=== PATIENT | male | born 1960 | race Caucasian/White ===

== ENCOUNTER → 2017-01-14 | Outpatient (CLI) | payer MEDICAID ==
[~2017-01-14] MED LIST: ALPR1T PO; AMLO10TA4 PO; ASPI-587 PO; ATOR80TA76 PO; ATR20T PO; BACL10TA PO; CAPT25TA3 PO; CLON0.5T PO; DIAZ10TA PO; DICL75TA2 PO; FLUT1DIS26 IH; FLUT9.9S NSEACH; GABA-488 PO; HYDR-2890 PO; HYDR-3714 PO; HYDR-3820 PO; KLONOPIN; LANS30TA3 PO; MORP30TA PO; MORP60TA12 PO; OXYC-197 PO; OXYC-471 PO; RT-ALBUINH IH; TIOT4MIS3 IH; [UNRECOGNIZED DRUG - OTHER]
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
== END ==
LOC: RAD 08:27
PROVIDERS: ATTEND Nurse Practitioner Community Health
DX: M54.16 Radiculopathy, lumbar region (principal)
CPT/HCPCS: 72148

== ENCOUNTER → 2017-02-19 | Outpatient (CLI) | payer MEDICAID ==
--- NOTE | 2017-02-19 20:12 | Diagnostic Imaging Report ---
PROCEDURE: MR imaging left lower extremity without contrast. TECHNIQUE: Multiplanar, multisequence non contrast enhanced MR imaging of the left lower extremity was accomplished. IMPRESSION: Dictated on workstation # [id number]
--- NOTE | 2017-02-20 15:34 | Diagnostic Imaging Report ---
TECHNIQUE: Multiplanar, multisequence non contrast-enhanced MRI of the left lower extremity was accomplished. INDICATION: No known injury. Lateral ankle pain and swelling with left foot pain for several months. History of healed fracture. Fracture was several years ago. Question peroneal tendinitis. EXAMINATION: MRI of the left lower extremity, 02/19/2017. FINDINGS: There is a marker along the lateral aspect of the ankle at the site of concern. This immediately overlies the anterior aspect of the peroneal tendons at the level of the anterior talofibular ligament. The underlying anterior talofibular ligament is intact. Mild adjacent anterior edema is seen which could be reactive. The anterior and posterior inferior tibiofibular ligaments are intact. The deltoid ligament contains mild internal high signal which could be due to a sprain. No discontinuity is appreciated. The peroneal tendons are diffusely enlarged. The peroneus brevis tendon attaches normally at the base of the fifth metatarsal without discontinuity noted. However, at the marker site, the peroneus brevis tendon is ill-defined in nature and there appears to be a longitudinal split tear. This is likely superimposed on tendinosis given the enlargement of the tendon. There is diffuse enlargement and abnormal signal intensity within the adjacent peroneus longus tendon at the same level which extends to involve the submalleolar portion of the tendon as well. There is no discontinuity. A discrete tear is not seen and findings likely due to marked tendinosis. A small amount of fluid in the surrounding sheath is noted. Minimal edema within the adjacent calcaneus is seen. There is also edema within the talus laterally. Within the lateral subtalar joint, there is a small amount of fluid as well as narrowing subchondral sclerosis and subchondral cystic change in both the talus and adjacent calcaneus. Similar findings to a lesser degree noted within the medial and posterior subtalar joints as well. A definite fracture line is not seen at this time. Susceptibility artifact is noted along the distal medial Achilles tendon near its attachment to the calcaneus. Discontinuity of the tendon is not appreciated. The extensor and flexor tendons are intact. The remaining osseous structures demonstrate scattered areas of edema, likely all degenerative in nature. There are multiple nonspecific hypointensities along the plantar aspect of the foot which are rounded in appearance and lie immediately inferior to the navicular and adjacent anterior calcaneus. These have the appearance of small loose bodies that are nonspecific in nature. Correlation with plain films may provide further characterization for possible calcifications within the region. IMPRESSION: 1. Diffuse tendinosis involving the peroneus brevis and longus tendons with a more focal short segment longitudinal split tear of the peroneus brevis tendon also noted at and just below the level of the lateral malleolus. No discontinuity is seen as it normally attaches at the base of the fifth metatarsal. 2. Remaining tendons intact. 3. Mild edema anterior to the anterior talofibular ligament which is nonspecific and could be reactive secondary to the peroneal changes or could be secondary to a sprain of the ligament, correlate with symptoms. No discontinuity. Mild similar findings seen along the deltoid ligament. 4. Diffuse degenerative findings throughout the calcaneus and talus as described with possible loose bodies along the plantar aspect of the foot, see above description. Dictated on workstation # [id number]
== END ==
LOC: RAD 16:08
PROVIDERS: ATTEND Podiatrist Foot & Ankle Surgery
DX: M76.72 Peroneal tendinitis, left leg (principal)
CPT/HCPCS: 73721

== ENCOUNTER 2018-04-05 10:54 | Outpatient (CLI) | payer MEDICAID ==
[~2018-04-05] VITALS: Ht 180.3 cm; Wt 99.1 kg
[~2018-04-05 10:54] MED LIST changes: -OXYC-197 PO; +OXYC1TAB87 PO
[2018-04-05 11:12] VITALS: BP 170/96
[2018-04-05 11:42] LABS: BILIRUBIN,URINE NEGATIVE (NEGATIVE); CLARITY,URINE CLEAR; COLOR,URINE YELLOW; GLUCOSE, URINE (UA) NEGATIVE (NEGATIVE); KETONES,URINE NEGATIVE (NEGATIVE); LEUKOCYTE ESTERASE ,URINE 1+ (NEGATIVE); NITRITE,URINE NEGATIVE (NEGATIVE); PH,URINE 6.5 (5-9); PROTEIN,URINE NEGATIVE (NEGATIVE); UROBILINOGEN,URINE NORMAL (NORMAL)
[2018-04-05 11:43] LABS: BASOPHILS # (AUTO) 0.1 10^3/uL (0.0-0.1); BASOPHILS % (AUTO) 2 % (0-10); EOSINOPHILS # (AUTO) 0.1 10^3/uL (0.0-0.3); EOSINOPHILS % (AUTO) 2 % (0-10); HEMATOCRIT 41 % (40-54); HEMOGLOBIN 13.9 G/DL (13.3-17.7); LYMPHOCYTES # (AUTO) 2.3 X 10^3 (1.0-4.0); LYMPHOCYTES % (AUTO) 39 % (12-44); MEAN CORPUSCULAR HEMOGLOBIN 30 PG (25-34); MEAN CORPUSCULAR HGB CONC 34 G/DL (32-36); MEAN CORPUSCULAR VOLUME 89 FL (80-99); MEAN PLATELET VOLUME 8.9 FL (7.4-10.4); MONOCYTES # (AUTO) 0.5 X 10^3 (0.0-1.0); MONOCYTES % (AUTO) 8 % (0-12); NEUTROPHILS # (AUTO) 2.9 X 10^3 (1.8-7.8); NEUTROPHILS % (AUTO) 49 % (42-75); PLATELET COUNT 276 10^3/uL (130-400); RED BLOOD COUNT 4.59 10^6/uL (4.35-5.85); RED CELL DISTRIBUTION WIDTH 13.5 % (10.0-14.5); WHITE BLOOD COUNT 5.8 10^3/uL (4.3-11.0)
[2018-04-05 11:50] LABS: BACTERIA,URINE NEGATIVE /HPF; WBC,URINE RARE /HPF
[2018-04-05 12:03] LABS: ALANINE AMINOTRANSFERASE 23 U/L (0-55); ALBUMIN 4.3 GM/DL (3.2-4.5); ALKALINE PHOSPHATASE 89 U/L (40-136); BILIRUBIN,TOTAL 0.5 MG/DL (0.1-1.0); BUN/CREATININE RATIO 16; CALCIUM 9.5 MG/DL (8.5-10.1); CARBON DIOXIDE 22 MMOL/L (21-32); CHLORIDE 107 MMOL/L (98-107); CREATININE SERUM 0.92 MG/DL (0.60-1.30); GFR ESTIMATED > 60; GLUCOSE 92 MG/DL (70-105); POTASSIUM 4.2 MMOL/L (3.6-5.0); PROTHROMBIN TIME PATIENT 13.4 SEC (12.2-14.7); SODIUM 138 MMOL/L (135-145); TOTAL PROTEIN 7.1 GM/DL (6.4-8.2)
[2018-04-05 12:05] LABS: ERYTHROCYTE SEDIMENTATION RATE 17 MM/HR (0-30)
[2018-04-05] MEDS ORDERED: METO100T12 PO (12:21)
[2018-04-05] MEDS ORDERED: HYDR-3820 PO (12:21)
[2018-04-05] MEDS ORDERED: ASPI-999 PO (12:21)
--- NOTE | 2018-04-05 12:55 | Diagnostic Imaging Report ---
PA and lateral chest at 1201 hours. INDICATION: Preop total knee replacement. FINDINGS: Heart size is within normal limits and stable when compared to 01/22/2014. The lungs are clear. There is no evidence for failure, pneumonia or for pleural effusion to indicate an acute abnormality. The mediastinum is not widened. The osseous structures are intact. The orthopedic plate and screw fixation device overlying the cervicothoracic junction seen previously is again evident and no different. There are also bilateral pedicle screws partially visualized overlying the upper lumbar spine. In the interval since the prior exam it does appear that the patient has undergone a surgical procedure of the right shoulder as there is now a small orthopedic fixation screw overlying the right humeral head. IMPRESSION: There is no evidence for an acute cardiopulmonary abnormality. Dictated on workstation # [id number]
[2018-04-05] MEDS ORDERED: CYCL10TA9 PO (16:20)
[2018-04-05] MEDS ORDERED: DICL100G18 TP (16:20)
[2018-04-05] MEDS ORDERED: CETI10TA23 PO (16:20)
[2018-04-05] MEDS ORDERED: ASPI-983 PO (16:20)
[2018-04-05] MEDS ORDERED: FLUT16SP22 NS (16:20)
== END 2018-04-05 15:00 | disposition home or self-care (01) ==
LOC: PREOP 10:54
PROVIDERS: ATTEND Orthopaedic Surgery
DX: Z01.810 Encounter for preprocedural cardiovascular examination (principal); Z01.811 Encounter for preprocedural respiratory examination; Z01.812 Encounter for preprocedural laboratory examination; Z11.2 Encounter for screening for other bacterial diseases; M17.11 Unilateral primary osteoarthritis, right knee; R53.83 Other fatigue
CPT/HCPCS: 36415; 71046; 80053; 81000; 85025; 85610; 85652; 86850; 86900; 86901; 87081; 93005

== ENCOUNTER 2018-04-14 05:52 | Inpatient (IN) | payer MEDICAID ==
--- NOTE | 2018-04-05 18:43 | HISTORY AND PHYSICAL ---
DATE OF SERVICE: INPATIENT ADMISSION HISTORY AND PHYSICAL DATE OF ADMISSION AND DATE OF SERVICE: 04/14/2018 This will be for inpatient admission on 04/14/2018 for right total knee arthroplasty. HISTORY OF PRESENT ILLNESS: The patient is a 57-year-old gentleman with longstanding progressive right knee pain. Radiographs reveal severe medial and patellofemoral arthrosis with complete loss of joint space. He has undergone treatment with arthroscopy and injections without relief. He reports functional impairment. He reports continued pain despite extensive conservative measures and because of this, has elected to proceed with surgical intervention. REVIEW OF SYSTEMS: No chest pain. No shortness of breath. No dysuria. PAST MEDICAL HISTORY: Hyperlipidemia, hypertension, chronic back pain, COPD, carotid disease, osteoarthritis. PAST SURGICAL HISTORY: Cervical spine, lumbar spine, appendectomy, colonoscopy, right shoulder and left shoulder. FAMILY HISTORY: Significant for ischemic heart disease. PRIMARY CARE PROVIDER: [facility]. MEDICATIONS: Morphine, hydrocodone, Valium, captopril, Lipitor, Prevacid, fluconazole, ProAir, amlodipine, Stiolto, aspirin, diclofenac, gabapentin, cyclobenzaprine, and metoprolol. ALLERGIES: DILANTIN. SOCIAL HISTORY: The patient is a [id number] history smoker. Denies alcohol use. PHYSICAL EXAMINATION: GENERAL: The patient is well developed, well-nourished, in no acute distress. HEENT: Normocephalic, atraumatic. Pupils equal, round, reactive to light. Oropharynx is clear. NECK: Supple. No lymphadenopathy. LUNGS: Clear to auscultation bilaterally. HEART: Regular rate and rhythm. ABDOMEN: Soft, nontender, nondistended. EXTREMITIES: The patient ambulates with an antalgic gait. Right knee demonstrates varus alignment. There is a slight effusion noted. There is no erythema or warmth about the knee. His range of motion is 0/2/125. No varus valgus laxity, negative anterior and posterior drawer. IMPRESSION: Severe right knee osteoarthritis, unresponsive to conservative measures. PLAN: Right total knee arthroplasty. The risks, benefits, options, ramifications and recovery have been discussed at length with the patient. He understands and wishes to proceed. Of note, this will be a regular inpatient admission due to comorbidities, pain management, gait abnormalities and physical therapy. Job ID: [id number] DocumentID: [id number] Dictated Date: 04/05/2018 17:21:18 Office Services Manager Date: 04/05/2018 18:43:11 Dictated By: VICKY WEATHERS MD
[~2018-04-14] VITALS: Ht 180.3 cm; Wt 99.1 kg
[~2018-04-14 05:52] MED LIST changes: +ASPI-983 PO; +ASPI-999 PO; +CETI10TA23 PO; +CYCL10TA9 PO; +DICL100G18 TP; +FLUT16SP22 NS; +METO100T12 PO
--- OUTSIDE RECORDS SUMMARY | 2018-04-14 05:58 | XMS REPORT | Clinical Summary ---
Author Author [facility] Organization [facility] Address Unknown Phone Unavailable Care Team Providers Care Remote Mortgage Underwriter Name Role Phone Tori Pino MD Unavailable Database, Physician Not In PCP Unavailable Source Comments Some departments are not documenting in the electronic medical record. If you do not see the information that you expected, contact Release of Information in the Health Information Management department at [phone] for further assistance in locating additional records.[facility] Allergies Active Allergy Reactions Severity Noted Date Comments Hydromorphone UNKNOWN Low 11/12/2015 Current Medications Prescription Sig. Disp. Refills Start End Date Status Date albuterol (VENTOLIN HFA, Inhale 2 Puffs by mouth Active PROAIR HFA) 90 every 6 hours as needed mcg/actuation inhaler for Wheezing. amLODIPine (NORVASC) 10 Take 10 mg by mouth Active mg tablet daily. atorvastatin (LIPITOR) 80 Take 80 mg by mouth Active mg tablet daily. captopril (CAPOTEN) 25 mg Take 25 mg by mouth three Active tablet times daily. diazepam (VALIUM) 10 mg Take 10 mg by mouth every Active tablet 6 hours as needed for Anxiety. lansoprazole DR(+) Take 30 mg by mouth Active (PREVACID) 30 mg capsule daily. fluticasone (FLONASE) 50 Apply 2 Sprays to each Active mcg/actuation nasal spray nostril as directed daily. tiotropium-olodaterol Inhale by mouth. Active 2.5-2.5 mcg/actuation mist morphine SR (MS CONTIN; Take 160 mg by mouth Active ORAMORPH SR) 60 mg every 12 hours tabletIndications: 160 in Indications: 160 in the the moring 130 at bedtime moring 130 at bedtime HYDROcodone/acetaminophen Take 1 Tab by mouth every Active (+) (LORTAB, NORCO) 6 hours as needed for 10/325 mg tablet Pain baclofen (LIORESAL) 10 mg Take 10 mg by mouth three Active tablet times daily. diclofenac sodium DR Take 75 mg by mouth twice Active (VOLTAREN) 75 mg tablet daily. gabapentin (NEURONTIN) Take 2 Caps by mouth 180 Cap 6 03/14/20 Active 300 mg three times daily. 16 capsuleIndications: Idiopathic polyneuropathy duloxetine DR (CYMBALTA) Take 1 Cap by mouth 90 Cap 3 03/14/20 Active 30 mg capsuleIndications: daily. 16 Idiopathic polyneuropathy, Depression, unspecified depression type Active Problems Problem Noted Date Drop attack 03/14/2016 Abnormal involuntary movement 03/14/2016 Tobacco abuse 03/14/2016 Depression 03/14/2016 Spondylosis of cervical region without myelopathy or radiculopathy 2015 Spondylosis of lumbar region without myelopathy or radiculopathy 01/07/2016 Pseudoarthrosis of lumbar spine 11/12/2015 Resolved Problems Problem Noted Date Resolved Date Osteoarthritis of lumbar spine with myelopathy 11/12/2015 01/07/2016 Spondylolisthesis of cervical region 11/12/2015 01/07/2016 Family History Medical History Relation Name Comments Unknown to Patient Father Heart Disease Mother Relation Name Status Comments Father Mother Social History Tobacco Use Types Packs/Day Years Used Date Current Every Day Smoker 0.5 Smokeless Tobacco: Never Used Tobacco Cessation: Ready to Quit: Yes; Counseling Given: Yes Alcohol Use Drinks/Week oz/Week Comments No 0 Standard 0.0 drinks or equivalent Sex Assigned at Date Recorded Not on file Last Filed Vital Signs Vital Sign Reading Time Taken Blood Pressure 155/97 07/07/2016 11:10 AM [employer] Pulse 103 07/07/2016 11:10 AM [employer] Temperature 36.7 C (98 F) 07/07/2016 11:10 AM [employer] Respiratory Rate 18 07/07/2016 11:10 AM [employer] Oxygen Saturation 97% 07/07/2016 11:10 AM [employer] Inhaled Oxygen - - Concentration Weight 100.2 kg (220 lb 12.8 oz) 07/07/2016 11:10 AM [employer] Height 180.3 cm (5' 11") 07/07/2016 11:10 AM [employer] Body Mass Index 30.8 07/07/2016 11:10 AM [employer] Plan of Treatment Health Maintenance Due Date Last Done Comments HEPATITIS C SCREENING 1960 PHYSICAL (COMPREHENSIVE) 12/25/1967 EXAM HIV SCREENING 12/25/1975 DTAP/TDAP VACCINES (1 - 1978 Tdap) COLORECTAL CANCER 2010 SCREENING [employer] REC[employer]BINANT 2010 VACCINE (1 of 2) INFLUENZA VACCINE 12/16/2017 Results Not on filefrom Last 3 Months
--- OUTSIDE RECORDS SUMMARY | 2018-04-14 05:59 | XMS REPORT ---
Author Author PREETHI YIN Organization [facility] [facility] Address [address] [place] [address] Care Team Providers Care Billing Associate Name Role Phone PREETHI YIN Unavailable PROBLEMS Type Condition ICD9-CM Code XIU40-ON Code Onset Dates Condition Status SNOMED Code Problem Anxiety disorder, unspecified F41.9 Active 296665782 Problem Chronic pain syndrome G89.4 Active 685076040 Problem Bilateral primary osteoarthritis of knee M17.0 Active 821315223 ALLERGIES No Information ENCOUNTERS Encounter Location Date Diagnosis [facility] [id number] [place] [address] 12966- 8451 Feb, [facility] [facility] [id number] [place] [address] 29068- 9242 Dec, [facility] [place] [facility] [id number] [place] [address] 01548- 5448 Dec, [facility] [facility] [id number] [place] [address] 01056- 9180 Nov, Chronic pain syndrome G89.4 [facility] [facility] [id number] [place] [address] 86381- 1946 Nov, [facility] [facility] [id number] [place] [address] 99614- 0219 Oct, [facility] [facility] [id number] [place] [address] 04355- 2541 Oct, [facility] [facility] [id number] [place] [address] 90463- 3806 Oct, [facility] [place] [facility] [id number] [place] [address] 09418- 8205 Oct, Allergic reaction to drug, subsequent encounter T78.40XD [facility] [address] [address] 9766 September, [facility] [facility] [address], [place] [address] 0069 September, [facility] [facility] [address], [place] [address] 4329 September, Low back pain radiating to lower extremity M54.5 [facility] [address], [place] [address] 2510 Aug, [facility] [address] [place] [address] 4334 Aug, [facility] [facility] [address], [place] [address]- 1349 Aug, [facility] [id number] [place] [address] 34746- 7355 Aug, [facility] [address], [place] [address]- 5693 Aug, Incisional infection, initial encounter T81.4XXA [facility] [address], [place] [address]- 6141 Aug, [facility] [address], [place] [address] 1633 Jul, [facility] [address], [place] [address]- 0236 Jul, [facility] [facility] [address], [place] [address]- 4364 Jul, Chronic pain syndrome G89.4 [facility] [address], [place] [address] 1536 Jul, Pre-op evaluation Z01.818 [facility] [address], [place] [address]- 2676 Jul, [facility] [facility] [id number] [place] [address] 93457- 4315 Jun, Anxiety disorder, unspecified F41.9 and Chronic pain syndrome G89.4 [facility] [id number] [place] [address] 72122- 6296 Jun, [facility] [facility] [id number] [place] [address] 10314- 3864 Jun, [facility] [id number] [place] [address] 91040- 7945 Jun, [facility] [id number] [place] [address] 33597- 3785 Jun, [facility] [id number] [place] [address] 09420- 3724 Jun, Lumbar neuritis M54.16 [facility] [id number] [place] [address] 72750- 0112 May, [facility] [id number] [place] [address] 27394- 6742 May, [facility] [id number] [place] [address] 02026- 8943 May, Encounter for therapeutic drug level monitoring Z51.81 ; Encounter for immunization Z23 and Chronic pain syndrome G89.4 [facility] [id number] [place] [address] 86197- 1889 May, Lumbar neuritis M54.16 [facility] [id number] [place] [address] 81792- 0352 May, [facility] [id number] [place] [address] 09123- 9471 Apr, Lumbar neuritis M54.16 [facility] [id number] [place] [address] 60637- 3419 Apr, [facility] [id number] [place] [address] 81101- 0389 Mar, Lumbar neuritis M54.16 [facility] [address], [place] [address]- 6300 Mar, [facility] [id number] [place] [address] 70839- 2136 Mar, [facility] [id number] [place] [address] 21858- 6442 Feb, Lumbar neuritis M54.16 [facility] [id number] [place] [address] 05859- 2991 Feb, Lumbar neuritis M54.16 [facility] [id number] [place] [address] 83957- 6099 Feb, [facility] [id number] [place] [address] 19556- 2418 Feb, [facility] [id number] [place] [address] 57742- 4702 25 Jan, 2017 [facility] [id number] [place] [address] 65318- 9264 22 Jan, 2017 Peroneal tendonitis of left lower extremity M76.72 [facility] [address] [place] [address] 37476- 7998 20 Jan, 2017 Lumbar neuritis M54.16 [facility] [address] [place] [address] 43233- 5241 Jan, [facility] [id number] [place] [address] 30788- 7410 Dec, Lumbar neuritis M54.16 [facility] [id number] [place] [address] 22889- 1056 Dec, [facility] [id number] [place] [address] 18193- 1000 Dec, Pain in right knee M25.561 ; Lumbar neuritis M54.16 and Cervical neuritis M54.12 [facility] [id number] [place] [address] 02659- 0013 Dec, [facility] [id number] [place] [address] 20235- 0842 Dec, [facility] [id number] [place] [address] 39267- 0717 Nov, Lumbar neuritis M54.16 [facility] [address] 13020- 7224 Nov, Bilateral primary osteoarthritis of knee M17.0 [facility] [id number] [place] [address] 50290- 7660 Nov, [facility] [address] 81880- 6517 Nov, Bronchitis J40 and Plantar fasciitis M72.2 [facility] [id number] [place] [address] 80691- 1623 Nov, [facility] [id number] [place] [address] 37817- 7117 Oct, Lumbar neuritis M54.16 [facility] [id number] [place] [address] 03367- 9339 Oct, Lumbar neuritis M54.16 [facility] [id number] [place] [address] 92980- 4452 Oct, Lumbar neuritis M54.16 [facility] [id number] [place] [address] 21570- 9990 Oct, Plantar fasciitis M72.2 and Pain in right knee M25.561 [facility] [address] 53541- 2215 16 Oct, 2016 Lumbar neuritis M54.16 ; Cervical neuritis M54.12 ; Other specified abdominal hernia without obstruction or gangrene K45.8 ; Heel spur, left M77.32 ; Plantar fasciitis M72.2 and Pain in right knee M25.561 [facility] [place] [facility] [address] [id number] [place] [address]- 6498 13 Oct, 2016 [facility] [place] [facility] [address] [id number] [place] [address]- 2817 14 Aug, 2014 [facility] [place] [facility] [address] [id number] [place] [address]- 6913 13 Aug, 2014 [facility] [place] [facility] [address] [id number] [place] [address]- 7951 11 Apr, 2014 [facility] [place] [facility] [address] [id number] [place] [address]- 5330 Apr, [facility] [place] [facility] [address] [id number] [place] [address]- 6061 Mar, [facility] [place] [facility] [address] [id number] [place] [address]- 4785 Mar, [facility] [place] [facility] [address] [id number] [place] [address]- 6538 Feb, [facility] [place] [facility] [address] [id number] [place] [address]- 0431 Feb, [facility] [place] [facility] [address] [id number] [place] [address]- 9667 Feb, [facility] [place] [facility] [address] [facility] [id number] [place] [address]- 3940 Feb, [facility] [place] [facility] [address] [id number] [place] [address]- 2441 Feb, [facility] [place] [facility] [address] [id number] [place] [address]- 6366 Feb, [facility] [place] [facility] [address] [id number] [place] 0864 Feb, [facility] [place] [facility] [address] [id number] [place] [address]- 9951 Feb, [facility] [place] [facility] [address] [id number] [place] [address]- 8953 30 Sep, 2013 [facility] [place] [facility] [address] [id number] [place] [address] 2542 30 Sep, 2013 [facility] [place] [facility] [address] [id number] [place] [address] 2545 30 Sep, 2013 [facility] [place] [facility] [address] [id number] [place] [address]- 1576 30 Sep, 2013 [facility] [place] [facility] [address] [id number] [place] [address]- 2543 30 Sep, 2013 [facility] [place] [facility] [address] [id number] [place] [address]- 2257 30 Sep, 2013 [facility] [place] [facility] [address] [id number] [place] [address]- 4925 26 Sep, 2013 [facility] [place] [facility] [address] [id number] [place] [address]- 6141 26 Sep, 2013 [facility] [place] [facility] [address] [id number] [place] [address]- 2786 22 Sep, 2013 [facility] [place] [facility] [address] [id number] [place] [address]- 8396 22 Sep, 2013 [facility] [place] [facility] [address] [id number] [place] [address]- 2276 16 Sep, 2013 [facility] [place] [facility] [address] [id number], [place] [address] 2547 16 Sep, 2013 [facility] [place] [facility] [address] [id number], [place] [address]- 2545 16 Sep, 2013 [facility] [place] [facility] [address] [id number] [place] [address]- 2546 16 Sep, 2013 [facility] [place] [facility] [address] [id number] [place] [address]- 2548 12 Sep, 2013 [facility] [place] [facility] [address] [id number] [place] [address]- 2547 12 Sep, 2013 [facility] [place] [facility] [address] [id number] [place] [address]- 0440 12 Jan, 2013 [facility] [place] [facility] [address] [id number] [place] [address]- 9636 12 Jan, 2013 [facility] [place] [facility] [address] [id number] [place] [address]- 5336 Jan, 2013 [facility] [place] [facility] [address] [id number] [place] [address]- 0746 Jan, 2013 [facility] [place] [facility] [address] [id number] [place] [address]- 5640 Jan, 2013 [facility] [place] [facility] [address] [id number] [place] [address]- 4112 Jan, 2013 [facility] [place] [facility] [address] [id number] [place] [address]- 1888 Jan, 2013 [facility] [place] [facility] [address] [id number] [place] [address]- 9443 Jan, 2013 [facility] [place] [facility] [address] [id number] [place] [address]- 5177 Dec, [facility] [place] [facility] [address] [id number] [place] [address]- 3830 Dec, [facility] [place] [facility] [address] [id number] [place] [address]- 5838 Dec, [facility] [place] [facility] [address] [id number] [place] [address]- 5872 Dec, [facility] [place] [facility] [address] [id number] [place] [address]- 2547 Dec, [facility] [place] [facility] [address] [id number] [place] [address]- 3332 Dec, [facility] [place] [facility] [address] [id number] [place] [address]- 1762 Dec, [facility] [place] [facility] [address] [id number] [place] [address]- 8306 Dec, [facility] [place] [facility] [address] [id number] [place] [address]- 9183 Dec, [facility] [place] [facility] [address] [id number] [place] [address]- 2223 Dec, [facility] [place] [facility] [address] [id number] [place] [address]- 9734 Dec, [facility] [place] [facility] [address] [id number] [place] [address]- 1933 Dec, [facility] [place] [facility] [address] [id number] [place] [address]- 2194 Dec, [facility] [place] [facility] [address] [id number] [place] [address]- 8611 Dec, [facility] [place] [facility] [address] [id number] [place] [address]- 3867 Dec, [facility] [place] [facility] [address] [id number] [place] [address]- 2284 Dec, [facility] [place] [facility] [address] [id number] [place] [address]- 6992 Dec, [facility] [place] [facility] [address] [id number] [place] [address]- 6127 Dec, [facility] [place] [facility] [address] [id number] [place] [address]- 0697 Dec, [facility] [place] [facility] [address] [id number] [place] [address]- 0755 Nov, [facility] [place] [facility] [address] [id number] [place] [address]- 3666 Nov, [facility] [place] [facility] [address] [id number] [place] [address]- 2079 Nov, [facility] [place] [facility] [address] [id number] [place] [address]- 9750 Nov, [facility] [place] [facility] [address] [id number], [place] [address]- 9033 Nov, [facility] [place] [facility] [address] [facility] [id number], [place] [address]- 5782 Nov, [facility] [place] [facility] [address] [facility] [id number], [place] [address]- 2117 Nov, [facility] [facility] [address] [facility] [id number], [place] [address]- 1601 Nov, [facility] [facility] [address] [facility] [id number], [place] [address]- 3279 Nov, [facility] [facility] [address] [facility] [id number], [place] [address]- 0226 Nov, [facility] [place] [facility] [address] [facility] [id number], [place] [address]- 3593 Nov, [facility] [facility] [address] [facility] [id number], [place] [address]- 9037 Oct, [facility] [facility] [address] [facility] [id number], [place] [address]- 3864 Oct, [facility] [place] [facility] [address] [facility] [id number], [place] [address]- 5293 Oct, [facility] [place] [facility] [address] [facility] [id number], [place] [address]- 9353 Apr, IMMUNIZATIONS No Known Immunizations SOCIAL HISTORY Never Assessed REASON FOR VISIT Controlled Med Refill PLAN OF CARE VITAL SIGNS MEDICATIONS Medication Instructions Dosage Frequency Start Date End Date Duration Status Hydrocodone-Acetaminophen 10-325 MG Orally 2 times a day 1 tablet as needed 12h Feb, 28 days Active RESULTS No Results PROCEDURES No Known procedures INSTRUCTIONS MEDICATIONS ADMINISTERED No Known Medications MEDICAL (GENERAL) HISTORY Type Description Date Medical History osteo arthritis Medical History COPD Medical History hypertension Medical History chronic sinusitis Medical History scoliosis Medical History hyperlipidemia Medical History clogged carotid arteries Medical History bone spur Medical History abd hernia Surgical History 4- lower lumbar surgeries Surgical History 2- neck surgeries Surgical History torn rotator cuff R shoulder Surgical History left shoulder Surgical History appendectomy Surgical History Hernia Repair Surgical History Cyst removal Hospitalization History Surgery(s) only Hospitalization History Chest Pain 08/2017
--- OUTSIDE RECORDS SUMMARY | 2018-04-14 05:59 | XMS REPORT ---
Author Author PREETHI YIN Organization [facility] Address [address] [place] [address] Care Team Providers Care Ux Developer Designer Name Role Phone PREETHI YIN Unavailable PROBLEMS Type Condition ICD9-CM Code GAK44-MD Code Onset Dates Condition Status SNOMED Code Problem Anxiety disorder, unspecified F41.9 Active 403597856 Problem Chronic pain syndrome G89.4 Active 272999382 Problem Bilateral primary osteoarthritis of knee M17.0 Active [id number] ALLERGIES No Information ENCOUNTERS Encounter Location Date Diagnosis [facility] [id number] [place] [address] 57985- 9127 Dec, [facility] [id number] [place] [address] 03017- 0913 Dec, [facility] [id number] [place] [address] 90607- 1148 Nov, Chronic pain syndrome G89.4 [facility] [id number] [place] [address] 66543- 2592 Nov, [facility] [id number] [place] [address] 81535- 8047 Oct, [facility] [id number] [place] [address] 46100- 0602 Oct, [facility] [id number] [place] [address] 23870- 1114 Oct, [facility] [id number] [place] [address] 00213- 7138 Oct, Allergic reaction to drug, subsequent encounter T78.40XD [facility] [id number] [place] [address] 23191- 3833 September, [facility] [address] [address] 3306 September, [facility] [address] [address] 2761 September, Low back pain radiating to lower extremity M54.5 [facility] [address] [address]- 6916 Aug, [facility] [address] [address]- 7555 Aug, [facility] [address] [address]- 5987 Aug, [facility] [address] [address]- 5999 Aug, [facility] [id number] [place] [address] 09058- 3387 Aug, Incisional infection, initial encounter T81.4XXA [facility] [address] [address]- 3356 Aug, [facility] [id number] [place] [address] 72752- 6842 Jul, [facility] [address] [address] 8332 Jul, [facility] [address] [address]- 7151 Jul, Chronic pain syndrome G89.4 [facility] [address] [address] 3090 Jul, Pre-op evaluation Z01.818 [facility] [address] [address]- 9506 Jul, [facility] [address] [address]- 9054 Jun, Anxiety disorder, unspecified F41.9 and Chronic pain syndrome G89.4 [facility] [place] [facility] [address] [address]- 1215 Jun, [facility] [id number] [place] [address] 93565- 4036 Jun, [facility] [id number] [place] [address] 28941- 0419 Jun, [facility] [id number] [place] [address] 54057- 0487 Jun, [facility] [id number] [place] [address] 64664- 2139 Jun, Lumbar neuritis M54.16 [facility] [id number] [place] [address] 97488- 8745 May, [facility] [id number] [place] [address] 86461- 5531 May, [facility] [id number] [place] [address] 67781- 1495 May, Encounter for therapeutic drug level monitoring Z51.81 ; Encounter for immunization Z23 and Chronic pain syndrome G89.4 [facility] [id number] [place] [address] 94177- 1413 May, Lumbar neuritis M54.16 [facility] [id number] [place] [address] 35794- 0360 May, [facility] [id number] [place] [address] 07942- 2544 Apr, Lumbar neuritis M54.16 [facility] [id number] [place] [address] 43576- 3965 Apr, [facility] [id number] [place] [address] 45815- 3340 Mar, Lumbar neuritis M54.16 [facility] [id number] [place] [address] 24223- 3505 Mar, [facility] [id number] [place] [address] 65239- 1770 Mar, [facility] [id number] [place] [address] 95198- 1210 Feb, Lumbar neuritis M54.16 [facility] [id number] [place] [address] 03090- 8726 Feb, Lumbar neuritis M54.16 [facility] [id number] [place] [address] 81220- 4274 Feb, [facility] [id number] [place] [address] 42428- 1200 Feb, [facility] [id number] [place] [address] 01644- 3151 Jan, [facility] [id number] [place] [address] 50217- 6105 22 Jan, 2017 Peroneal tendonitis of left lower extremity M76.72 [facility] [id number] [place] [address] 78379- 9833 20 Jan, 2017 Lumbar neuritis M54.16 [facility] [id number] [place] [address] 23233- 2915 Jan, [facility] [id number] [place] [address] 47366- 9942 Dec, Lumbar neuritis M54.16 [facility] [id number] [place] [address] 21162- 6220 Dec, [facility] [id number] [place] [address] 07359- 3906 Dec, Pain in right knee M25.561 ; Lumbar neuritis M54.16 and Cervical neuritis M54.12 [facility] [address] [address]- 9446 Dec, [facility] [id number] [place] [address] 61426- 5990 Dec, [facility] [id number] [place] [address] 67524- 6246 Nov, Lumbar neuritis M54.16 [facility] [id number] [place] [address] 44646- 9001 Nov, Bilateral primary osteoarthritis of knee M17.0 [facility] [id number] [place] [address] 57416- 8050 Nov, [facility] [id number] [place] [address] 89322- 0626 Nov, Bronchitis J40 and Plantar fasciitis M72.2 [facility] [id number] [place] [address] 35228- 3907 Nov, [facility] [id number] [place] [address] 04332- 7575 Oct, Lumbar neuritis M54.16 [facility] [id number] [place] [address] 07784- 8024 Oct, Lumbar neuritis M54.16 [facility] [id number] [place] [address] 98837- 5641 Oct, Lumbar neuritis M54.16 [facility] [id number] [place] [address] 06620- 9528 Oct, Plantar fasciitis M72.2 and Pain in right knee M25.561 [facility] [id number] [place] [address] 47418- 0272 16 Oct, 2016 Lumbar neuritis M54.16 ; Cervical neuritis M54.12 ; Other specified abdominal hernia without obstruction or gangrene K45.8 ; Heel spur, left M77.32 ; Plantar fasciitis M72.2 and Pain in right knee M25.561 [facility] [id number] [place] [address] 52299- 9051 13 Oct, 2016 [facility] [place] [facility] [address] [id number] [place] [address]- 3506 14 Aug, 2014 [facility] [place] [facility] [address] [id number] [place] [address]- 7273 13 Aug, 2014 [facility] [place] [facility] [address] [id number] [place] [address]- 5012 11 Apr, 2014 [facility] [place] [facility] [address] [id number] [place] [address]- 9652 Apr, [facility] [place] [facility] [address] [id number] [place] [address]- 9495 Mar, [facility] [place] [facility] [address] [id number] [place] [address]- 3177 Mar, [facility] [place] [facility] [address] [id number] [place] [address]- 8973 Feb, [facility] [place] [facility] [address] [id number] [place] [address]- 9156 Feb, [facility] [place] [facility] [address] [id number] [place] [address]- 0095 Feb, [facility] [place] [facility] [address] [id number] [place] [address]- 7834 Feb, [facility] [place] [facility] [address] [facility] [id number] [place] [address]- 6206 Feb, [facility] [place] [facility] [address] [id number] [place] [address]- 7556 Feb, [facility] [place] [facility] [address] [id number] [place] [address]- 2826 Feb, [facility] [place] [facility] [address] [id number] [place] [address]- 2893 Feb, [facility] [place] [facility] [address] [id number] [place] [address]- 5072 30 Jan, 2014 [facility] [place] [facility] [address] [id number] [place] [address]- 7005 30 Sep, 2013 [facility] [place] [facility] [address] [id number] [place] [address] 2549 30 Sep, 2013 [facility] [place] [facility] [address] [id number] [place] [address] 2541 30 Sep, 2013 [facility] [place] [facility] [address] [id number] [place] [address]- 6071 30 Sep, 2013 [facility] [place] [facility] [address] [id number] [place] [address]- 9216 30 Sep, 2013 [facility] [place] [facility] [address] [id number] [place] [address]- 7237 26 Sep, 2013 [facility] [place] [facility] [address] [id number] [place] [address]- 6692 26 Sep, 2013 [facility] [place] [facility] [address] [id number] [place] [address]- 2627 22 Sep, 2013 [facility] [place] [facility] [address] [id number] [place] [address]- 3205 22 Sep, 2013 [facility] [place] [facility] [address] [id number] [place] [address]- 7190 16 Sep, 2013 [facility] [place] [facility] [address] [id number] [place] [address]- 2296 16 Sep, 2013 [facility] [place] [facility] [address] [id number] [place] [address]- 2542 16 Sep, 2013 [facility] [place] [facility] [address] [id number] [address]- 2549 16 Sep, 2013 [facility] [place] [facility] [address] [id number] [place] [address]- 2544 12 Sep, 2013 [facility] [place] [facility] [address] [id number] [place] [address]- 2547 12 Sep, 2013 [facility] [place] [facility] [address] [id number] [place] [address]- 5435 12 Sep, 2013 [facility] [place] [facility] [address] [id number] [place] [address]- 8638 12 Jan, 2013 [facility] [place] [facility] [address] [id number] [place] [address]- 1452 Jan, 2013 [facility] [place] [facility] [address] [id number] [place] [address]- 9556 Jan, 2013 [facility] [place] [facility] [address] [id number] [place] [address]- 8569 Jan, 2013 [facility] [place] [facility] [address] [id number] [place] [address]- 3954 Jan, 2013 [facility] [place] [facility] [address] [id number] [place] [address]- 4116 Jan, 2013 [facility] [place] [facility] [address] [id number] [place] [address]- 8007 Jan, 2013 [facility] [place] [facility] [address] [id number] [place] [address]- 5491 Dec, [facility] [place] [facility] [address] [id number] [place] [address]- 0183 Dec, [facility] [place] [facility] [address] [id number] [place] [address]- 8474 Dec, [facility] [place] [facility] [address] [id number] [place] [address]- 5747 Dec, [facility] [place] [facility] [address] [id number] [place] [address]- 7650 Dec, [facility] [place] [facility] [address] [id number] [place] [address]- 7064 Dec, [facility] [place] [facility] [address] [id number] [place] [address]- 5667 Dec, [facility] [place] [facility] [address] [id number] [place] [address]- 8281 Dec, [facility] [place] [facility] [address] [id number] [place] [address]- 8296 Dec, [facility] [place] [facility] [address] [id number] [place] [address]- 4838 Dec, [facility] [place] [facility] [address] [id number] [place] [address]- 3295 Dec, [facility] [place] [facility] [address] [id number] [place] [address]- 7237 Dec, [facility] [place] [facility] [address] [id number] [place] [address]- 7201 Dec, [facility] [place] [facility] [address] [id number] [place] [address]- 7868 Dec, [facility] [place] [facility] [address] [id number] [place] [address]- 9907 Dec, [facility] [place] [facility] [address] [id number] [place] [address]- 8323 Dec, [facility] [place] [facility] [address] [id number] [place] [address]- 7128 Dec, [facility] [place] [facility] [address] [id number] [place] [address]- 5645 Dec, [facility] [place] [facility] [address] [id number] [place] [address]- 6774 Dec, [facility] [place] [facility] [address] [id number] [place] [address]- 3374 Nov, [facility] [place] [facility] [address] [id number] [place] [address]- 0451 Nov, [facility] [place] [facility] [address] [id number] [place] [address]- 4757 Nov, [facility] [place] [facility] [address] [id number] [place] [address]- 6278 Nov, [facility] [place] [facility] [address] [id number] [place] [address]- 6454 Nov, [facility] [place] [facility] [address] [id number] [place] [address]- 3154 Nov, [facility] [address] [facility] [id number] [place] [address]- 5783 Nov, [facility] [address] [facility] [id number] [place] [address]- 7628 Nov, [facility] [address] [facility] [id number] [place] [address]- 4655 Nov, [facility] [address] [facility] [id number] [place] [address]- 5027 Nov, [facility] [address] [facility] [id number] [place] [address]- 0164 Nov, [facility] [address] [facility] [id number] [place] [address]- 3571 Oct, [facility] [address] [facility] [id number] [place] [address]- 9149 Oct, [facility] [address] [facility] [id number] [place] [address]- 8995 Oct, [facility] [address] [facility] [id number] [place] [address]- 3562 Apr, IMMUNIZATIONS No Known Immunizations SOCIAL HISTORY Never Assessed REASON FOR VISIT Controlled Med Refill PLAN OF CARE VITAL SIGNS MEDICATIONS Medication Instructions Dosage Frequency Start Date End Date Duration Status Hydrocodone-Acetaminophen 10-325 MG Orally 2 times a day 1 tablet as needed 12h Jan, 28 days Active RESULTS No Results PROCEDURES [...]
--- OUTSIDE RECORDS SUMMARY | 2018-04-14 05:59 | XMS REPORT ---
Author Author RPEETHI YIN Organization [facility] Address [address] [place] [address] Care Team Providers Care Finance Specialist Name Role Phone PREETHI YIN Unavailable PROBLEMS Type Condition ICD9-CM Code VXD66-HO Code Onset Dates Condition Status SNOMED Code Problem Anxiety disorder, unspecified F41.9 Active 404083700 Problem Chronic pain syndrome G89.4 Active 892447060 Problem Bilateral primary osteoarthritis of knee M17.0 Active [id number] ALLERGIES No Information ENCOUNTERS Encounter Location Date Diagnosis [facility] [id number] [place] [address] 33508- 2670 Mar, [facility] [id number] [place] [address] 04200- 3958 Mar, Chronic pain syndrome G89.4 [facility] [id number] [place] [address] 55838- 4488 Feb, [facility] [id number] [place] [address] 85816- 0038 Feb, [facility] [address] [address] 1367 Dec, [facility] [id number] [place] [address] 81503- 2459 Dec, [facility] [id number] [place] [address] 28114- 9667 Nov, Chronic pain syndrome G89.4 [facility] [id number] [place] [address] 06316- 2642 Nov, [facility] [address] [address] 6287 Oct, [facility] [address] [address] 7225 Oct, [facility] [id number] [place] [address] 17946- 6364 Oct, [facility] [id number] [address]- 0438 Oct, Allergic reaction to drug, subsequent encounter T78.40XD [facility] [id number] [place] [address] 45826- 3708 September, [facility] [id number] [place] [address] 10414- 8786 September, [facility] [id number] [place] [address] 05955- 0559 September, Low back pain radiating to lower extremity M54.5 [facility] [id number] [place] [address] 23860- 6662 Aug, [facility] [id number] [place] [address] 79416- 1768 Aug, [facility] [id number] [place] [address] 48795- 5084 Aug, [facility] [address] [address]- 2594 Aug, [facility] [id number] [place] [address] 16225- 9346 Aug, Incisional infection, initial encounter T81.4XXA [facility] [address] [address]- 1326 Aug, [facility] [id number] [place] [address] 60157- [address] Jul, [facility] [address] [address]- 0687 Jul, [facility] [id number] [place] [address] 66899- 6007 Jul, Chronic pain syndrome G89.4 [facility] [id number] [place] [address] 24706- 2857 Jul, Pre-op evaluation Z01.818 [facility] [id number] [place] [address] 03727- 1146 Jul, [facility] [id number] [place] [address] 22197- 4653 Jun, Anxiety disorder, unspecified F41.9 and Chronic pain syndrome G89.4 [facility] [id number] [place] [address] 29092- 9954 Jun, [facility] [id number] [place] [address] 03947- 8853 Jun, [facility] [id number] [place] [address] 67739- 1766 Jun, [facility] [id number] [place] [address] 10383- 4328 Jun, [facility] [id number] [place] [address] 01799- 5456 Jun, Lumbar neuritis M54.16 [facility] [id number] [place] [address] 86505- 1462 May, [facility] [id number] [place] [address] 64945- 2013 May, [facility] [id number] [place] [address] 20896- 4259 May, Encounter for therapeutic drug level monitoring Z51.81 ; Encounter for immunization Z23 and Chronic pain syndrome G89.4 [facility] [id number] [place] [address] 60687- 9761 May, Lumbar neuritis M54.16 [facility] [id number] [place] [address] 75682- 9761 May, [facility] [id number] [place] [address] 35396- 8609 Apr, Lumbar neuritis M54.16 [facility] [id number] [place] [address] 31095- 2076 Apr, [facility] [id number] [place] [address] 05728- 6155 Mar, Lumbar neuritis M54.16 [facility] [id number] [place] [address] 53744- 9207 Mar, [facility] [id number] [place] [address] 40407- 6606 Mar, [facility] [id number] [place] [address] 11196- 0626 Feb, Lumbar neuritis M54.16 [facility] [id number] [place] [address] 15403- 7729 Feb, Lumbar neuritis M54.16 [facility] [id number] [place] [address] 44134- 2053 16 Feb, 2017 [facility] [id number] [place] [address] 83918- 6530 Feb, [facility] [id number] [place] [address] 14479- 2798 25 Jan, 2017 [facility] [id number] [place] [address] 89885- 9446 22 Jan, 2017 Peroneal tendonitis of left lower extremity M76.72 [facility] [id number] [place] [address] 08271- 1320 20 Jan, [address] [facility] [id number] [place] [address] 97717- 2016 12 Jan, 2017 [facility] [id number] [place] [address] 25875- 0158 Dec, Lumbar neuritis M54.16 [facility] [id number] [place] [address] 42017- 5906 Dec, [facility] [id number] [place] [address] 51909- 8050 Dec, Pain in right knee M25.561 ; Lumbar neuritis M54.16 and Cervical neuritis M54.12 [facility] [address] 09540- 1460 Dec, [facility] [id number] [place] [address] 63312- 6680 Dec, [facility] [address] 23330- 5396 Nov, Lumbar neuritis M54.16 [facility] [id number] [place] [address] 47545- 9411 Nov, Bilateral primary osteoarthritis of knee M17.0 [facility] [id number] [place] [address] 76361- 4065 Nov, [facility] [id number] [place] [address] 90315- 9078 Nov, Bronchitis J40 and Plantar fasciitis M72.2 [facility] [id number] [place] [address] 99289- 5778 Nov, [facility] [id number] [place] [address] 86991- 5443 Oct, Lumbar neuritis M54.16 [facility] [id number] [place] [address] 71922- 8101 Oct, Lumbar neuritis M54.16 [facility] [id number] [place] [address] 49889- 7650 Oct, Lumbar neuritis M54.16 [facility] [id number] [place] [address] 92802- 5292 Oct, Plantar fasciitis M72.2 and Pain in right knee M25.561 [facility] [address] [address]- 8080 16 Oct, 2016 Lumbar neuritis M54.16 ; Cervical neuritis M54.12 ; Other specified abdominal hernia without obstruction or gangrene K45.8 ; Heel spur, left M77.32 ; Plantar fasciitis M72.2 and Pain in right knee M25.561 [facility] [id number] [place] [address] 77810- 7719 [address], 2016 [facility] [id number] [place] [address] 27385- 4162 14 Aug, 2014 [facility] [id number] [place] [address] 94818- 0381 Aug, [facility] [id number] [place] [address] 44526- 3152 Apr, [facility] [id number] [place] [address] 52430- 8923 Apr, [facility] [id number] [place] [address] 57249- 1848 Mar, [facility] [id number] [place] [address] 89883- 8118 Mar, [facility] [address] [address]- 3099 Feb, [facility] [id number] [place] [address] 54481- 7822 Feb, [facility] [id number] [place] [address] 51452- 5128 Feb, [facility] [id number] [place] [address] 67729- 9105 Feb, [facility] [address] [address]- 3447 Feb, [facility] [id number] [place] [address] 82478- 8747 07 Feb, 2013 [facility] [place] [facility] [address] [id number] [place] [address]- 3298 07 Feb, 2013 [facility] [place] [facility] [address] [id number] [place] [address]- 6753 07 Feb, 2013 [facility] [place] [facility] [address] [id number] [place] [address]- 9716 30 Sep, 2013 [facility] [place] [facility] [address] [id number] [place] [address] 254 30 Sep, 2013 [facility] [place] [facility] [address] [id number] [place] [address]- 1274 30 Sep, 2013 [facility] [place] [facility] [address] [id number] [place] [address]- 4883 30 Sep, 2013 [facility] [place] [facility] [address] [id number] [place] [address]- 1286 30 Sep, 2013 [facility] [place] [facility] [address] [id number] [place] [address]- 7549 30 Sep, 2013 [facility] [place] [facility] [address] [id number] [place] [address] 2542 26 Sep, 2013 [facility] [place] [facility] [address] [id number] [place] [address]- 2543 26 Sep, 2013 [facility] [place] [facility] [address] [id number] [place] [address] 2540 22 Sep, 2013 [facility] [place] [facility] [address] [id number] [place] [address]- 2545 22 Sep, 2013 [facility] [place] [facility] [address] [id number] [place] [address] 2546 16 Sep, 2013 [facility] [place] [facility] [address] [id number] [place] [address]- 2543 16 Sep, 2013 [facility] [place] [facility] [address] [id number] [place] [address]- 2541 16 Sep, 2013 [facility] [place] [facility] [address] [id number] [place] [address]- 2422 16 Jan, 2013 [facility] [place] [facility] [address] [id number] [place] [address]- 1314 12 Jan, 2013 [facility] [place] [facility] [address] [id number] [place] [address]- 1046 12 Jan, 2013 [facility] [place] [facility] [address] [id number] [place] [address]- 0197 12 Jan, 2013 [facility] [place] [facility] [address] [id number] [place] [address]- 1653 12 Jan, 2013 [facility] [place] [facility] [address] [id number] [place] [address]- 7974 09 Jan, 2013 [facility] [place] [facility] [address] [id number] [place] [address]- 2541 Jan, 2013 [facility] [place] [facility] [address] [id number] [place] [address]- 8429 Jan, 2013 [facility] [place] [facility] [address] [id number] [place] [address]- 8610 Jan, 2013 [facility] [place] [facility] [address] [id number] [place] [address]- 0714 Jan, 2013 [facility] [place] [facility] [address] [id number] [place] [address]- 6121 Jan, 2013 [facility] [place] [facility] [address] [id number] [place] [address]- 4298 Dec, [facility] [place] [facility] [address] [id number] [place] [address]- 254 Dec, [facility] [place] [facility] [address] [id number] [place] [address]- 3160 Dec, [facility] [place] [facility] [address] [id number] [place] [address]- 0210 Dec, [facility] [place] [facility] [address] [id number] [place] [address]- 8039 Dec, [facility] [place] [facility] [address] [id number] [place] [address]- 0596 Dec, [facility] [place] [facility] [address] [id number] [place] [address]- 3873 Dec, [facility] [place] [facility] [address] [id number] [place] [address]- 8080 Dec, [facility] [place] [facility] [address] [id number] [place] [address]- 6578 Dec, [facility] [place] [facility] [address] [id number] [place] [address]- 7039 Dec, [facility] [place] [facility] [address] [id number] [place] [address]- 1015 Dec, [facility] [place] [facility] [address] [id number] [place] [address]- 5955 Dec, [facility] [place] [facility] [address] [id number] [place] [address]- 3567 Dec, [facility] [place] [facility] [address] [id number] [place] [address]- 8218 Dec, [facility] [place] [facility] [address] [id number] [place] [address]- 8000 Dec, [facility] [place] [facility] [address] [id number] [place] [address]- 4913 Dec, [facility] [place] [facility] [address] [id number] [place] [address]- 6735 Dec, [facility] [place] [facility] [address] [id number] [place] [address]- 7865 Dec, [facility] [place] [facility] [address] [id number] [place] [address]- 5237 Dec, [facility] [place] [facility] [address] [id number] [place] [address]- 5850 Nov, [facility] [place] [facility] [address] [id number], [place] [address]- 0800 Nov, [facility] [address] [facility] [id number] [address]- 2265 Nov, [facility] [address] [facility] [id number] [address]- 6446 Nov, [facility] [address] [facility] [id number] [address]- 6094 Nov, [facility] [address] [facility] [id number], [place] [address]- 8806 Nov, [facility] [address] [facility] [id number], [place] [address]- 5159 Nov, [facility] [address] [facility] [id number] [address]- 7344 Nov, [facility] [address] [address]- 5133 Nov, [facility] [address] [address]- 9101 Nov, [facility] [address] [address]- 3506 Nov, [facility] [address] [address]- 3759 Oct, [facility] [id number] [address]- 2684 Oct, [facility] [id number] [address]- 7115 Oct, [facility] [id number] [address]- 0464 Apr, IMMUNIZATIONS No Known Immunizations SOCIAL HISTORY Never Assessed REASON FOR VISIT Controlled Med Refill PLAN OF CARE VITAL SIGNS MEDICATIONS Medication Instructions Dosage Frequency Start Date End Date Duration Status Hydrocodone-Acetaminophen 10-325 MG Orally 2 times a day 1 tablet as needed 12h Mar, 28 days Active RESULTS No Results PROCEDURES [...]
--- OUTSIDE RECORDS SUMMARY | 2018-04-14 05:59 | XMS REPORT ---
Author Author PREETHI YIN Organization [facility] [place] Address [address] [place] [address] Care Team Providers Care Power And Recovery Shift Engineer Name Role Phone PREETHI YIN Unavailable PROBLEMS Type Condition ICD9-CM Code UFD95-HZ Code Onset Dates Condition Status SNOMED Code Problem Anxiety disorder, unspecified F41.9 Active 143323074 Problem Chronic pain syndrome G89.4 Active 228179838 Problem Bilateral primary osteoarthritis of knee M17.0 Active 551608034 ALLERGIES No Information ENCOUNTERS Encounter Location Date Diagnosis [facility] [place] [id number] [place] [address] 25544- 4154 Mar, [facility] [place] [id number] [place] [address] 21903- 4456 Feb, [facility] [place] [id number] [place] [address] 84156- 2114 Feb, [facility] [place] [id number] [place] [address] 90687- 4600 Dec, [facility] [place] [id number] [place] [address] 92633- 5625 Dec, [facility] [place] [id number] [place] [address] 32138- 8673 Nov, Chronic pain syndrome G89.4 [facility] [place] [id number] [place] [address] 98017- 1374 Nov, [facility] [place] [id number] [place] [address] 26909- 7152 Oct, [facility] [place] [id number] [place] [address] 88573- 2213 Oct, [facility] [place] [id number] [address]- 5730 Oct, [facility] [place] [id number] [place] [address] 17187- 4495 Oct, Allergic reaction to drug, subsequent encounter T78.40XD [facility] [place] [id number] [address]- 8946 September, [facility] [place] [id number] [place] [address] 45343- 7133 September, [facility] [place] [id number] [place] [address] 98474- 8047 September, Low back pain radiating to lower extremity M54.5 [facility] [place] [id number] [place] [address] 53326- 8024 Aug, [facility] [place] [id number] [place] [address] 63353- 4318 Aug, [facility] [place] [id number] [place] [address] 61819- 8535 Aug, [facility] [place] [id number] [place] [address] 30321- 2934 Aug, [facility] [place] [id number] [place] [address] 14466- 0596 Aug, Incisional infection, initial encounter T81.4XXA [facility] [place] [id number] [place] [address] 42533- 9716 Aug, [facility] [place] [address] [address]- 3963 Jul, [facility] [place] [id number] [place] [address] 55724- 7189 Jul, [facility] [place] [id number] [place] [address] 02909- 9885 Jul, Chronic pain syndrome G89.4 [facility] [place] [id number] [place] [address] 55178- 0603 Jul, Pre-op evaluation Z01.818 [facility] [place] [id number] [place] [address] 43630- 0546 Jul, [facility] [place] [id number] [place] [address] 97531- 9202 Jun, Anxiety disorder, unspecified F41.9 and Chronic pain syndrome G89.4 [facility] [place] [id number] [place] [address] 05772- 0019 Jun, [facility] [place] [id number] [place] [address] 34712- 2255 Jun, [facility] [place] [id number] [place] [address] 31771- 2034 Jun, [facility] [place] [id number] [place] [address] 78053- 6117 Jun, [facility] [place] [id number] [place] [address] 22529- 2142 Jun, Lumbar neuritis M54.16 [facility] [place] [id number] [place] [address] 94643- 9807 May, [facility] [place] [id number] [place] [address] 21388- 1458 May, [facility] [place] [id number] [place] [address] 05375- 2264 May, Encounter for therapeutic drug level monitoring Z51.81 ; Encounter for immunization Z23 and Chronic pain syndrome G89.4 [facility] [place] [id number] [place] [address] 20004- 1039 May, Lumbar neuritis M54.16 [facility] [place] [id number] [place] [address] 13605- 3308 May, [facility] [place] [id number] [place] [address] 78170- 5553 Apr, Lumbar neuritis M54.16 [facility] [place] [id number] [place] [address] 36831- 7230 Apr, [facility] [place] [id number] [place] [address] 80820- 8585 Mar, Lumbar neuritis M54.16 [facility] [place] [id number] [place] [address] 71437- 0846 Mar, [facility] [place] [id number] [place] [address] 58151- 8457 Mar, [facility] [place] [id number] [place] [address] 39534- 4183 Feb, Lumbar neuritis M54.16 [facility] [place] [id number] [place] [address] 33388- 7544 Feb, Lumbar neuritis M54.16 [facility] [place] [id number] [place] [address] 64655- 0092 Feb, [facility] [place] [id number] [place] [address] 99867- 1320 Feb, [facility] [place] [id number] [place] [address] 39084- 8080 25 Jan, 2017 [facility] [place] [id number] [place] [address] 46654- 9456 22 Jan, 2017 Peroneal tendonitis of left lower extremity M76.72 [facility] [place] [id number] [place] [address] 17434- 2512 20 Jan, 2017 Lumbar neuritis M54.16 [facility] [place] [id number] [place] [address] 80626- 3186 12 Jan, 2017 [facility] [place] [id number] [place] [address] 98764- 2877 Dec, Lumbar neuritis M54.16 [facility] [place] [address] [place] [address] 27033- 1924 Dec, [facility] [place] [id number] [place] [address] 04124- 9358 18 Dec, 2016 Pain in right knee M25.561 ; Lumbar neuritis M54.16 and Cervical neuritis M54.12 [facility] [place] [id number] [place] [address] 28076- 5795 14 Dec, 2016 [facility] [place] [id number] [place] [address] 73961- 9255 Dec, [facility] [place] [id number] [place] [address] 97031- 2594 Nov, Lumbar neuritis M54.16 [facility] [place] [id number] [place] [address] 27239- 9814 Nov, Bilateral primary osteoarthritis of knee M17.0 [facility] [place] [id number] [place] [address] 44567- 1275 Nov, [facility] [place] [id number] [place] [address] 45458- 7880 Nov, Bronchitis J40 and Plantar fasciitis M72.2 [facility] [place] [id number] [place] [address] 82592- 5078 Nov, [facility] [place] [id number] [place] [address] 12759- 0551 Oct, Lumbar neuritis M54.16 [facility] [place] [id number] [place] [address] 63977- 4964 Oct, Lumbar neuritis M54.16 [facility] [place] [id number] [place] [address] 76929- 5279 Oct, Lumbar neuritis M54.16 [facility] [place] [id number] [place] [address] 69882- 3262 Oct, Plantar fasciitis M72.2 and Pain in right knee M25.561 [facility] [place] [id number] [place] [address] 34284- 4080 Oct, Lumbar neuritis M54.16 ; Cervical neuritis M54.12 ; Other specified abdominal hernia without obstruction or gangrene K45.8 ; Heel spur, left M77.32 ; Plantar fasciitis M72.2 and Pain in right knee M25.561 [facility] [place] [address] [address]- 8142 13 Oct, 2016 [facility] [place] [id number] [place] [address] 83725- 8752 14 Aug, 2014 [facility] [place] [id number] [place] [address] 89095- 0416 Aug, [facility] [place] [id number] [place] [address] 54612- 9860 Apr, [facility] [place] [id number] [place] [address] 73476- 7134 Apr, [facility] [place] [id number] [place] [address] 51033- 2326 Mar, [facility] [place] [id number] [place] [address] 78699- 0865 Mar, [facility] [place] [id number] [place] [address] 06950- 6148 Feb, [facility] [place] [address] [address]- 5248 Feb, [facility] [place] [id number] [address]- 9516 Feb, [facility] [place] [address] 0272 Feb, [facility] [place] [id number] [place] [address] 768702- 4413 Feb, [facility] [place] [address] [address]- 7436 Feb, [facility] [place] [id number] [place] [address] 13916- 7897 Feb, 2013 [facility] [place] [facility] [address] [id number] [place] [address]- 4771 07 Feb, 2013 [facility] [place] [facility] [address] [id number] [place] [address]- 2593 30 Sep, 2013 [facility] [place] [facility] [address] [id number] [place] [address]- 3186 30 Sep, 2013 [facility] [place] [facility] [address] [id number] [place] [address]- 9079 30 Sep, 2013 [facility] [place] [facility] [address] [id number] [place] [address]- 5829 30 Sep, 2013 [facility] [place] [facility] [address] [id number] [place] [address]- 2335 30 Sep, 2013 [facility] [place] [facility] [address] [id number] [place] [address]- 8387 30 Sep, 2013 [facility] [place] [facility] [address] [id number] [place] [address]- 9747 26 Sep, 2013 [facility] [place] [facility] [address] [id number] [place] [address]- 1874 26 Sep, 2013 [facility] [place] [facility] [address] [id number] [place] [address]- 5033 22 Sep, 2013 [facility] [place] [facility] [address] [id number] [place] [address]- 2545 22 Sep, 2013 [facility] [place] [facility] [address] [id number] [place] [address]- 2549 16 Sep, 2013 [facility] [place] [facility] [address] [id number] [place] [address]- 2546 16 Sep, 2013 [facility] [place] [facility] [address] [id number] [place] [address]- 2548 16 Sep, 2013 [facility] [place] [facility] [address] [id number] [place] [address]- 2547 16 Sep, 2013 [facility] [place] [facility] [address] [id number] [place] [address]- 1871 12 Jan, 2013 [facility] [place] [facility] [address] [id number] [place] [address]- 8924 12 Jan, 2013 [facility] [place] [facility] [address] [id number] [place] [address]- 6346 Jan, 2013 [facility] [place] [facility] [address] [id number] [place] [address]- 0467 Jan, 2013 [facility] [place] [facility] [address] [id number] [place] [address]- 5478 Jan, 2013 [facility] [place] [facility] [address] [id number] [place] [address]- 1640 Jan, 2013 [facility] [place] [facility] [address] [id number] [place] [address]- 6436 Jan, 2013 [facility] [place] [facility] [address] [id number] [place] [address]- 8932 Jan, 2013 [facility] [place] [facility] [address] [id number] [place] [address]- 3722 Jan, 2013 [facility] [place] [facility] [address] [id number] [place] [address]- 6623 Jan, 2013 [facility] [place] [facility] [address] [id number] [place] [address]- 0256 Dec, [facility] [place] [facility] [address] [id number] [place] [address]- 3137 Dec, [facility] [place] [facility] [address] [id number] [place] [address]- 4507 Dec, [facility] [place] [facility] [address] [id number] [place] [address]- 4210 Dec, [facility] [place] [facility] [address] [id number] [place] [address]- 2158 Dec, [facility] [place] [facility] [address] [id number] [place] [address]- 9780 Dec, [facility] [place] [facility] [address] [id number] [place] [address]- 5325 Dec, [facility] [place] [facility] [address] [id number] [place] [address]- 1304 Dec, [facility] [place] [facility] [address] [id number] [place] [address]- 8859 Dec, [facility] [place] [facility] [address] [id number] [place] [address]- 3795 Dec, [facility] [place] [facility] [address] [id number] [place] [address]- 5004 Dec, [facility] [place] [facility] [address] [id number] [place] [address]- 0337 Dec, [facility] [place] [facility] [address] [id number] [place] [address]- 3529 Dec, [facility] [place] [facility] [address] [id number] [place] [address]- 0392 Dec, [facility] [place] [facility] [address] [id number] [place] [address]- 9769 Dec, [facility] [place] [facility] [address] [id number] [place] [address]- 2608 Dec, [facility] [place] [facility] [address] [id number] [place] [address]- 0342 Dec, [facility] [place] [facility] [address] [id number] [place] [address]- 1538 Dec, [facility] [place] [facility] [address] [id number] [place] [address]- 7582 Dec, [facility] [place] [facility] [address] [id number] [place] [address]- 7981 Nov, [facility] [place] [facility] [address] [id number] [place] [address]- 6179 Nov, [facility] [place] [facility] [address] [id number] [place] [address]- 2111 Nov, [facility] [place] [address] [facility] [id number] [place] [address]- 2505 Nov, [facility] [place] [address] [facility] [id number] [place] [address]- 2510 Nov, [facility] [place] [address] [facility] [id number] [place] [address]- 3987 Nov, [facility] [place] [address] [facility] [id number] [place] [address]- 4094 Nov, [facility] [place] [address] [facility] [id number] [place] [address]- 5465 Nov, [facility] [place] [address] [facility] [id number] [place] [address]- 2752 Nov, [facility] [place] [id number] [address]- 7520 Nov, [facility] [place] [address] [facility] [id number] [place] [address]- 3939 Nov, [facility] [place] [id number] [address]- 2705 Oct, [facility] [place] [id number] [address]- 8309 Oct, [facility] [place] [id number] [address]- 6299 Oct, [facility] [place] [id number] [address]- 1549 Apr, IMMUNIZATIONS No Known Immunizations SOCIAL HISTORY Never Assessed REASON FOR VISIT Controlled Med Refill PLAN OF CARE VITAL SIGNS MEDICATIONS Medication Instructions Dosage Frequency Start Date End Date Duration Status Hydrocodone-Acetaminophen 10-325 MG Orally 2 times a day 1 tablet as needed 12h 29 Feb, 2018 28 days Active RESULTS No Results PROCEDURES [...]
--- OUTSIDE RECORDS SUMMARY | 2018-04-14 06:00 | XMS REPORT ---
Author Author PREETHI YIN Organization [facility] Address [address] [place] [address] Care Team Providers Care Pricer Name Role Phone PREETHI YIN Unavailable PROBLEMS Type Condition ICD9-CM Code IUI36-PP Code Onset Dates Condition Status SNOMED Code Problem Anxiety disorder, unspecified F41.9 Active 459130977 Problem Chronic pain syndrome G89.4 Active 928027424 Problem Bilateral primary osteoarthritis of knee M17.0 Active 225551907 ALLERGIES No Information ENCOUNTERS Encounter Location Date Diagnosis [facility] [id number] [place] [address] 35123- 4456 Dec, [facility] [id number] [place] [address] 32782- 9810 Dec, [facility] [id number] [place] [address] 85933- 1404 Nov, Chronic pain syndrome G89.4 [facility] [id number] [place] [address] 43539- 1352 Nov, [facility] [id number] [place] [address] 53215- 7864 Oct, [facility] [id number] [place] [address] 33601- 0820 Oct, [facility] [id number] [place] [address] 64030- 9882 Oct, [facility] [id number] [place] [address] 20997- 8937 Oct, Allergic reaction to drug, subsequent encounter T78.40XD [facility] [id number] [place] [address] 87241- 6870 September, [facility] [address], [place] [address] 77[address] September, [facility] [address], [place] [address] 7303 September, Low back pain radiating to lower extremity M54.5 [facility] [address], [place] [address]- 8816 Aug, [facility] [address] [address]- 7210 Aug, [facility] [id number], [place] [address]- 7567 Aug, [facility] [address] [address]- 3748 Aug, [facility] [id number] [place] [address] 18389- 6391 Aug, Incisional infection, initial encounter T81.4XXA [facility] [address], [place] [address] 2791 Aug, [facility] [id number] [place] [address] 57314- 9308 Jul, [facility] [address], [place] [address]- 3951 Jul, [facility] [address] [address]- 2628 Jul, Chronic pain syndrome G89.4 [facility] [address] [address] 3286 Jul, Pre-op evaluation Z01.818 [facility] [address], [place] [address]- 2086 Jul, [facility] [address], [place] [address]- 6306 Jun, Anxiety disorder, unspecified F41.9 and Chronic pain syndrome G89.4 [facility] [place] [facility] [address], [place] [address]- 4865 Jun, [facility] [id number] [place] [address] 27855- 1706 Jun, [facility] [id number] [place] [address] 33070- 4289 Jun, [facility] [id number] [place] [address] 11495- 0703 Jun, [facility] [id number] [place] [address] 85224- 2511 Jun, Lumbar neuritis M54.16 [facility] [id number] [place] [address] 22609- 3667 May, [facility] [id number] [place] [address] 17676- 2685 May, [facility] [id number] [place] [address] 39698- 4970 May, Encounter for therapeutic drug level monitoring Z51.81 ; Encounter for immunization Z23 and Chronic pain syndrome G89.4 [facility] [id number] [place] [address] 56387- 5342 May, Lumbar neuritis M54.16 [facility] [id number] [place] [address] 62173- 9185 May, [facility] [id number] [place] [address] 49767- 254 Apr, Lumbar neuritis M54.16 [facility] [id number] [place] [address] 64077- 6548 Apr, [facility] [id number] [place] [address] 39370- 1957 Mar, Lumbar neuritis M54.16 [facility] [id number] [place] [address] 48778- 8083 Mar, [facility] [id number] [place] [address] 47779- 3744 Mar, [facility] [id number] [place] [address] 58031- 8457 Feb, Lumbar neuritis M54.16 [facility] [id number] [place] [address] 15885- 5746 Feb, Lumbar neuritis M54.16 [facility] [id number] [place] [address] 99756- 7255 Feb, [facility] [id number] [place] [address] 94407- 6994 Feb, [facility] [id number] [place] [address] 02174- 6354 Jan, [facility] [id number] [place] [address] 04871- 1498 22 Jan, 2017 Peroneal tendonitis of left lower extremity M76.72 [facility] [id number] [place] [address] 13377- 5269 20 Jan, 2017 Lumbar neuritis M54.16 [facility] [id number] [place] [address] 41113- 1410 Jan, [facility] [id number] [place] [address] 42514- 5802 Dec, Lumbar neuritis M54.16 [facility] [id number] [place] [address] 67937- 2659 Dec, [facility] [id number] [place] [address] 49134- 1793 Dec, Pain in right knee M25.561 ; Lumbar neuritis M54.16 and Cervical neuritis M54.12 [facility] [address], [place] [address]- 2786 Dec, [facility] [id number] [place] [address] 33346- 4488 Dec, [facility] [id number] [place] [address] 65040- 6518 Nov, Lumbar neuritis M54.16 [facility] [id number] [place] [address] 10234- 2075 Nov, Bilateral primary osteoarthritis of knee M17.0 [facility] [id number] [place] [address] 91221- 0774 Nov, [facility] [id number] [place] [address] 13001- 1103 Nov, Bronchitis J40 and Plantar fasciitis M72.2 [facility] [id number] [place] [address] 44727- 2442 Nov, [facility] [id number] [place] [address] 84245- 6313 Oct, Lumbar neuritis M54.16 [facility] [id number] [place] [address] 63822- 1753 Oct, Lumbar neuritis M54.16 [facility] [id number] [place] [address] 53453- 0949 Oct, Lumbar neuritis M54.16 [facility] [id number] [place] [address] 92286- 2213 Oct, Plantar fasciitis M72.2 and Pain in right knee M25.561 [facility] [id number] [place] [address] 11804- 5400 16 Oct, 2016 Lumbar neuritis M54.16 ; Cervical neuritis M54.12 ; Other specified abdominal hernia without obstruction or gangrene K45.8 ; Heel spur, left M77.32 ; Plantar fasciitis M72.2 and Pain in right knee M25.561 [facility] [id number] [place] [address] 38223- 2111 13 Oct, 2016 [facility] [place] [facility] [address] [id number] [place] [address]- 5444 14 Aug, 2014 [facility] [place] [facility] [address] [id number] [place] [address]- 8481 13 Aug, 2014 [facility] [place] [facility] [address] [id number] [place] [address]- 8710 11 Apr, 2014 [facility] [place] [facility] [address] [id number] [place] [address]- 0248 Apr, [facility] [place] [facility] [address] [id number] [place] [address]- 0713 Mar, [facility] [place] [facility] [address] [id number] [place] [address]- 7316 Mar, [facility] [place] [facility] [address] [id number] [place] [address]- 0663 Feb, [facility] [place] [facility] [address] [id number] [place] [address]- 2186 Feb, [facility] [place] [facility] [address] [id number] [place] [address]- 7881 Feb, [facility] [place] [facility] [address] [id number] [place] [address]- 5620 Feb, [facility] [place] [facility] [address] [facility] [id number] [place] [address]- 6478 Feb, [facility] [place] [facility] [address] [id number] [place] [address]- 9155 Feb, [facility] [place] [facility] [address] [id number] [place] [address]- 5169 Feb, [facility] [place] [facility] [address] [id number] [place] [address]- 9130 Feb, [facility] [place] [facility] [address] [id number] [place] [address]- 4858 30 Jan, 2014 [facility] [place] [facility] [address] [id number] [place] [address]- 9066 30 Sep, 2013 [facility] [place] [facility] [address] [id number] [place] [address] 2545 30 Sep, 2013 [facility] [place] [facility] [address] [id number] [place] [address] 2547 30 Sep, 2013 [facility] [place] [facility] [address] [id number] [place] [address]- 0197 30 Sep, 2013 [facility] [place] [facility] [address] [id number] [place] [address]- 6553 30 Sep, 2013 [facility] [place] [facility] [address] [id number] [place] [address]- 4431 26 Sep, 2013 [facility] [place] [facility] [address] [id number] [place] [address]- 6431 26 Sep, 2013 [facility] [place] [facility] [address] [id number] [place] [address]- 4434 22 Sep, 2013 [facility] [place] [facility] [address] [id number] [place] [address]- 8401 22 Sep, 2013 [facility] [place] [facility] [address] [id number] [place] [address]- 1040 16 Sep, 2013 [facility] [place] [facility] [address] [id number] [place] [address]- 8778 16 Sep, 2013 [facility] [place] [facility] [address] [id number] [place] [address]- 2540 16 Sep, 2013 [facility] [place] [facility] [address] [id number] [address]- 2543 16 Sep, 2013 [facility] [place] [facility] [address] [id number] [place] [address]- 2540 12 Sep, 2013 [facility] [place] [facility] [address] [id number] [place] [address]- 2548 12 Sep, 2013 [facility] [place] [facility] [address] [id number] [place] [address]- 7849 12 Sep, 2013 [facility] [place] [facility] [address] [id number] [place] [address]- 5541 12 Jan, 2013 [facility] [place] [facility] [address] [id number] [place] [address]- 1143 Jan, 2013 [facility] [place] [facility] [address] [id number] [place] [address]- 2016 Jan, 2013 [facility] [place] [facility] [address] [id number] [place] [address]- 3903 Jan, 2013 [facility] [place] [facility] [address] [id number] [place] [address]- 0289 Jan, 2013 [facility] [place] [facility] [address] [id number] [place] [address]- 5885 Jan, 2013 [facility] [place] [facility] [address] [id number] [place] [address]- 8449 Jan, 2013 [facility] [place] [facility] [address] [id number] [place] [address]- 6553 Dec, [facility] [place] [facility] [address] [id number] [place] [address]- 9260 Dec, [facility] [place] [facility] [address] [id number] [place] [address]- 4617 Dec, [facility] [place] [facility] [address] [id number] [place] [address]- 7427 Dec, [facility] [place] [facility] [address] [id number] [place] [address]- 6311 Dec, [facility] [place] [facility] [address] [id number] [place] [address]- 3815 Dec, [facility] [place] [facility] [address] [id number] [place] [address]- 4337 Dec, [facility] [place] [facility] [address] [id number] [place] [address]- 7064 Dec, [facility] [place] [facility] [address] [id number] [place] [address]- 5011 Dec, [facility] [place] [facility] [address] [id number] [place] [address]- 6315 Dec, [facility] [place] [facility] [address] [id number] [place] [address]- 3326 Dec, [facility] [place] [facility] [address] [id number] [place] [address]- 6599 Dec, [facility] [place] [facility] [address] [id number] [place] [address]- 7244 Dec, [facility] [place] [facility] [address] [id number] [place] [address]- 5840 Dec, [facility] [place] [facility] [address] [id number] [place] [address]- 9839 Dec, [facility] [place] [facility] [address] [id number] [place] [address]- 0921 Dec, [facility] [place] [facility] [address] [id number] [place] [address]- 6397 Dec, [facility] [place] [facility] [address] [id number] [place] [address]- 7924 Dec, [facility] [place] [facility] [address] [id number] [place] [address]- 0659 Dec, [facility] [place] [facility] [address] [id number] [place] [address]- 2816 Nov, [facility] [place] [facility] [address] [id number] [place] [address]- 3581 Nov, [facility] [place] [facility] [address] [id number] [place] [address]- 1018 Nov, [facility] [place] [facility] [address] [id number] [place] [address]- 7022 Nov, [facility] [place] [facility] [address] [id number] [place] [address]- 0588 Nov, [facility] [place] [facility] [address] [id number], [place] [address]- 9408 Nov, [facility] [address] [facility] [id number], [place] [address]- 4988 Nov, [facility] [address] [facility] [id number], [place] [address]- 2650 Nov, [facility] [address] [facility] [id number], [place] [address]- 5072 Nov, [facility] [address] [facility] [id number], [place] [address]- 8888 Nov, [facility] [address] [facility] [id number], [place] [address]- 4668 Nov, [facility] [address] [facility] [id number], [place] [address]- 1255 Oct, [facility] [address] [facility] [id number], [place] [address]- 8057 Oct, [facility] [address] [facility] [id number], [place] [address]- 2738 Oct, [facility] [id number] [address]- 5360 Apr, IMMUNIZATIONS No Known Immunizations SOCIAL HISTORY Never Assessed REASON FOR VISIT Controlled Med Refill PLAN OF CARE VITAL SIGNS MEDICATIONS Medication Instructions Dosage Frequency Start Date End Date Duration Status Hydrocodone-Acetaminophen 10-325 MG Orally 2 times a day 1 tablet as needed 12h Dec, 28 days Active RESULTS No Results PROCEDURES [...]
--- OUTSIDE RECORDS SUMMARY | 2018-04-14 06:00 | XMS REPORT ---
Author Author PREETHI YIN Organization [facility] Address [address] [place] [address] Care Team Providers Care Shark Biologist Name Role Phone PREETHI YIN Unavailable PROBLEMS Type Condition ICD9-CM Code KEQ37-DE Code Onset Dates Condition Status SNOMED Code Problem Anxiety disorder, unspecified F41.9 Active 988087902 Problem Chronic pain syndrome G89.4 Active 438608466 Problem Bilateral primary osteoarthritis of knee M17.0 Active [id number] ALLERGIES No Information ENCOUNTERS Encounter Location Date Diagnosis [facility] [id number] [place] [address] 38029- 2278 Dec, [facility] [id number] [place] [address] 36554- 6843 Dec, [facility] [id number] [place] [address] 37497- 5643 Nov, Chronic pain syndrome G89.4 [facility] [id number] [place] [address] 44738- 2124 Nov, [facility] [id number] [place] [address] 54924- 1666 Oct, [facility] [id number] [place] [address] 44649- 7832 Oct, [facility] [id number] [place] [address] 08873- 3681 Oct, [facility] [id number] [place] [address] 45562- 3833 Oct, Allergic reaction to drug, subsequent encounter T78.40XD [facility] [id number] [place] [address] 66092- 3291 September, [facility] [address] [address]33 September, [facility] [address] [address] 6391 September, Low back pain radiating to lower extremity M54.5 [facility] [address] [address] 5786 Aug, [facility] [address] [address] 2998 Aug, [facility] [id number] [address]- 0005 Aug, [facility] [address] [address]- 1245 Aug, [facility] [id number] [place] [address] 50759- 5464 Aug, Incisional infection, initial encounter T81.4XXA [facility] [address] [address] 8288 Aug, [facility] [id number] [place] [address] 32778- 6075 Jul, [facility] [address] [address]- 9052 Jul, [facility] [address] [address] 2224 Jul, Chronic pain syndrome G89.4 [facility] [address] [address] 0345 Jul, Pre-op evaluation Z01.818 [facility] [address] [address] 0056 Jul, [facility] [address] [address] 6684 Jun, Anxiety disorder, unspecified F41.9 and Chronic pain syndrome G89.4 [facility] [place] [facility] [address] [address]- 6933 Jun, [facility] [id number] [place] [address] 45419- 2396 Jun, [facility] [id number] [place] [address] 98727- 9304 Jun, [facility] [id number] [place] [address] 12208- 3835 Jun, [facility] [id number] [place] [address] 07867- 2173 Jun, Lumbar neuritis M54.16 [facility] [id number] [place] [address] 25849- 0125 May, [facility] [id number] [place] [address] 90128- 4000 May, [facility] [id number] [place] [address] 55190- 8715 May, Encounter for therapeutic drug level monitoring Z51.81 ; Encounter for immunization Z23 and Chronic pain syndrome G89.4 [facility] [id number] [place] [address] 79421- 1603 May, Lumbar neuritis M54.16 [facility] [id number] [place] [address] 32128- 9674 May, [facility] [id number] [place] [address] 66659- 2543 Apr, Lumbar neuritis M54.16 [facility] [id number] [place] [address] 37343- 6205 Apr, [facility] [id number] [place] [address] 44900- 1070 Mar, Lumbar neuritis M54.16 [facility] [id number] [place] [address] 77421- 5477 Mar, [facility] [id number] [place] [address] 44802- 0917 Mar, [facility] [id number] [place] [address] 74690- 3949 Feb, Lumbar neuritis M54.16 [facility] [id number] [place] [address] 11851- 5836 Feb, Lumbar neuritis M54.16 [facility] [id number] [place] [address] 57378- 6777 Feb, [facility] [id number] [place] [address] 70094- 5397 Feb, [facility] [id number] [place] [address] 98824- 1071 Jan, [facility] [id number] [place] [address] 90870- 7383 22 Jan, 2017 Peroneal tendonitis of left lower extremity M76.72 [facility] [id number] [place] [address] 01224- 6293 20 Jan, 2017 Lumbar neuritis M54.16 [facility] [id number] [place] [address] 08148- 9287 Jan, [facility] [id number] [place] [address] 98830- 2235 Dec, Lumbar neuritis M54.16 [facility] [id number] [place] [address] 20213- 7159 Dec, [facility] [id number] [place] [address] 09231- 6046 Dec, Pain in right knee M25.561 ; Lumbar neuritis M54.16 and Cervical neuritis M54.12 [facility] [address] [address]- 4986 Dec, [facility] [id number] [place] [address] 50133- 4501 Dec, [facility] [id number] [place] [address] 22629- 2885 Nov, Lumbar neuritis M54.16 [facility] [id number] [place] [address] 08496- 0935 Nov, Bilateral primary osteoarthritis of knee M17.0 [facility] [id number] [place] [address] 57497- 7322 Nov, [facility] [id number] [place] [address] 74852- 2100 Nov, Bronchitis J40 and Plantar fasciitis M72.2 [facility] [id number] [place] [address] 04143- 9996 Nov, [facility] [id number] [place] [address] 72189- 0104 Oct, Lumbar neuritis M54.16 [facility] [id number] [place] [address] 92237- 2161 Oct, Lumbar neuritis M54.16 [facility] [id number] [place] [address] 18946- 9443 Oct, Lumbar neuritis M54.16 [facility] [id number] [place] [address] 01259- 2119 Oct, Plantar fasciitis M72.2 and Pain in right knee M25.561 [facility] [id number] [place] [address] 87898- 9467 16 Oct, 2016 Lumbar neuritis M54.16 ; Cervical neuritis M54.12 ; Other specified abdominal hernia without obstruction or gangrene K45.8 ; Heel spur, left M77.32 ; Plantar fasciitis M72.2 and Pain in right knee M25.561 [facility] [id number] [place] [address] 78791- 6001 13 Oct, 2016 [facility] [place] [facility] [address] [id number] [place] [address]- 2913 14 Aug, 2014 [facility] [place] [facility] [address] [id number] [place] [address]- 9175 13 Aug, 2014 [facility] [place] [facility] [address] [id number] [place] [address]- 6882 11 Apr, 2014 [facility] [place] [facility] [address] [id number] [place] [address]- 4213 Apr, [facility] [place] [facility] [address] [id number] [place] [address]- 6047 Mar, [facility] [place] [facility] [address] [id number] [place] [address]- 6091 Mar, [facility] [place] [facility] [address] [id number] [place] [address]- 5105 Feb, [facility] [place] [facility] [address] [id number] [place] [address]- 9891 Feb, [facility] [place] [facility] [address] [id number] [place] [address]- 8114 Feb, [facility] [place] [facility] [address] [id number] [place] [address]- 7040 Feb, [facility] [place] [facility] [address] [facility] [id number] [place] [address]- 2298 Feb, [facility] [place] [facility] [address] [id number] [place] [address]- 4173 Feb, [facility] [place] [facility] [address] [id number] [place] [address]- 6151 Feb, [facility] [place] [facility] [address] [id number] [place] [address]- 2889 Feb, [facility] [place] [facility] [address] [id number] [place] [address]- 8583 30 Jan, 2014 [facility] [place] [facility] [address] [id number] [place] [address]- 0965 30 Sep, 2013 [facility] [place] [facility] [address] [id number] [place] [address] 2543 30 Sep, 2013 [facility] [place] [facility] [address] [id number] [place] [address] 2543 30 Sep, 2013 [facility] [place] [facility] [address] [id number] [place] [address]- 4849 30 Sep, 2013 [facility] [place] [facility] [address] [id number] [place] [address]- 0173 30 Sep, 2013 [facility] [place] [facility] [address] [id number] [place] [address]- 0477 26 Sep, 2013 [facility] [place] [facility] [address] [id number] [place] [address]- 2598 26 Sep, 2013 [facility] [place] [facility] [address] [id number] [place] [address]- 7888 22 Sep, 2013 [facility] [place] [facility] [address] [id number] [place] [address]- 8622 22 Sep, 2013 [facility] [place] [facility] [address] [id number] [place] [address]- 6351 16 Sep, 2013 [facility] [place] [facility] [address] [id number] [place] [address]- 9848 16 Sep, 2013 [facility] [place] [facility] [address] [id number] [place] [address]- 2548 16 Sep, 2013 [facility] [place] [facility] [address] [id number] [place] [address]- 2544 16 Sep, 2013 [facility] [place] [facility] [address] [id number] [place] [address]- 2544 12 Sep, 2013 [facility] [place] [facility] [address] [id number] [place] [address]- 2543 12 Sep, 2013 [facility] [place] [facility] [address] [id number] [place] [address]- 2677 12 Sep, 2013 [facility] [place] [facility] [address] [id number] [place] [address]- 0202 12 Jan, 2013 [facility] [place] [facility] [address] [id number] [place] [address]- 6941 Jan, 2013 [facility] [place] [facility] [address] [id number] [place] [address]- 3666 Jan, 2013 [facility] [place] [facility] [address] [id number] [place] [address]- 5452 Jan, 2013 [facility] [place] [facility] [address] [id number] [place] [address]- 6653 Jan, 2013 [facility] [place] [facility] [address] [id number] [place] [address]- 4549 Jan, 2013 [facility] [place] [facility] [address] [id number] [place] [address]- 0489 Jan, 2013 [facility] [place] [facility] [address] [id number] [place] [address]- 6420 Dec, [facility] [place] [facility] [address] [id number] [place] [address]- 3749 Dec, [facility] [place] [facility] [address] [id number] [place] [address]- 4118 Dec, [facility] [place] [facility] [address] [id number] [place] [address]- 3083 Dec, [facility] [place] [facility] [address] [id number] [place] [address]- 2930 Dec, [facility] [place] [facility] [address] [id number] [place] [address]- 7661 Dec, [facility] [place] [facility] [address] [id number] [place] [address]- 1565 Dec, [facility] [place] [facility] [address] [id number] [place] [address]- 0736 Dec, [facility] [place] [facility] [address] [id number] [place] [address]- 0215 Dec, [facility] [place] [facility] [address] [id number] [place] [address]- 8495 Dec, [facility] [place] [facility] [address] [id number] [place] [address]- 9411 Dec, [facility] [place] [facility] [address] [id number] [place] [address]- 9769 Dec, [facility] [place] [facility] [address] [id number] [place] [address]- 9102 Dec, [facility] [place] [facility] [address] [id number] [place] [address]- 0756 Dec, [facility] [place] [facility] [address] [id number] [place] [address]- 4744 Dec, [facility] [place] [facility] [address] [id number] [place] [address]- 8426 Dec, [facility] [place] [facility] [address] [id number] [place] [address]- 1354 Dec, [facility] [place] [facility] [address] [id number] [place] [address]- 3676 Dec, [facility] [place] [facility] [address] [id number] [place] [address]- 4628 Dec, [facility] [place] [facility] [address] [id number] [place] [address]- 1356 Nov, [facility] [place] [facility] [address] [id number] [place] [address]- 7937 Nov, [facility] [place] [facility] [address] [id number] [place] [address]- 0594 Nov, [facility] [place] [facility] [address] [id number] [place] [address]- 4594 Nov, [facility] [place] [facility] [address] [id number] [place] [address]- 5243 Nov, [facility] [place] [facility] [address] [id number] [place] [address]- 2390 Nov, [facility] [address] [facility] [id number] [place] [address]- 4097 Nov, [facility] [address] [facility] [id number] [place] [address]- 1531 Nov, [facility] [address] [facility] [id number] [place] [address]- 6818 Nov, [facility] [address] [facility] [id number] [place] [address]- 4230 Nov, [facility] [address] [facility] [id number] [place] [address]- 9807 Nov, [facility] [address] [facility] [id number] [place] [address]- 7667 Oct, [facility] [address] [facility] [id number] [place] [address]- 1603 Oct, [facility] [address] [facility] [id number] [place] [address]- 1585 Oct, [facility] [address] [facility] [id number] [place] [address]- 6726 Apr, IMMUNIZATIONS No Known Immunizations SOCIAL HISTORY Never Assessed REASON FOR VISIT Controlled Med Refill PLAN OF CARE VITAL SIGNS MEDICATIONS Medication Instructions Dosage Frequency Start Date End Date Duration Status Hydrocodone-Acetaminophen 10-325 MG Orally 2 times a day 1 tablet as needed 12Nov, 28 days Active RESULTS No Results PROCEDURES [...]
--- OUTSIDE RECORDS SUMMARY | 2018-04-14 06:00 | XMS REPORT ---
Author Author PREETHI YIN Organization [facility] Address [address] [place] [address] Care Team Providers Care Automatic Typewriter Inspector Name Role Phone PREETHI YIN Unavailable PROBLEMS Type Condition ICD9-CM Code MMO53-HL Code Onset Dates Condition Status SNOMED Code Problem Anxiety disorder, unspecified F41.9 Active 082564555 Problem Chronic pain syndrome G89.4 Active 753383376 Problem Bilateral primary osteoarthritis of knee M17.0 Active 303212792 ALLERGIES Substance Reaction Event Type Date Status Dilaudid dizziness Drug Allergy Nov, Active ENCOUNTERS Encounter Location Date Diagnosis [facility] [id number] [place] [address] 32001- 1593 Dec, [facility] [id number] [place] [address] 25698- 9671 Dec, [facility] [id number] [place] [address] 63707- 4714 Nov, Chronic pain syndrome G89.4 [facility] [id number] [place] [address] 47223- 7534 Nov, [facility] [id number] [place] [address] 58899- 9101 Oct, [facility] [id number] [place] [address] 34887- 2647 Oct, [facility] [id number] [place] [address] 38754- 8299 Oct, [facility] [id number] [place] [address] 00853- 1071 Oct, Allergic reaction to drug, subsequent encounter T78.40XD [facility] [id number] [place] [address] 76501- 8078 September, [facility] [address] [address] 1848 September, [facility] [address] 50[address] September, Low back pain radiating to lower extremity M54.5 [facility] [address] [address] 4254 Aug, [facility] [address] [address] 8787 Aug, [facility] [address] [address]- 0944 Aug, [facility] [address] [address] 7112 Aug, [facility] [address] [place] [address] 67229- 7472 Aug, Incisional infection, initial encounter T81.4XXA [facility] [address] [address] 1614 Aug, [facility] [address] [address] 3894 Jul, [facility] [address] [address]- 2661 Jul, [facility] [address] [address] 9401 Jul, Chronic pain syndrome G89.4 [facility] [address] [address]- 6727 Jul, Pre-op evaluation Z01.818 [facility] [address] [address]- 7222 Jul, [facility] [address] [address]- 2360 Jun, Anxiety disorder, unspecified F41.9 and Chronic pain syndrome G89.4 [facility] [id number] [place] [address] 18239- 8199 Jun, [facility] [id number] [place] [address] 19868- 9938 Jun, [facility] [id number] [place] [address] 57049- 1522 Jun, [facility] [id number] [place] [address] 57073- 7101 Jun, [facility] [id number] [place] [address] 13331- 8266 Jun, Lumbar neuritis M54.16 [facility] [id number] [place] [address] 36386- 2941 May, [facility] [id number] [place] [address] 03820- 7408 May, [facility] [id number] [place] [address] 74404- 0640 May, Encounter for therapeutic drug level monitoring Z51.81 ; Encounter for immunization Z23 and Chronic pain syndrome G89.4 [facility] [id number] [place] [address] 25399- 4025 May, Lumbar neuritis M54.16 [facility] [id number] [place] [address] 48625- 4638 May, [facility] [id number] [place] [address] 83082- 0463 Apr, Lumbar neuritis M54.16 [facility] [id number] [place] [address] 76640- 3663 Apr, [facility] [id number] [place] [address] 33189- 9803 Mar, Lumbar neuritis M54.16 [facility] [id number] [place] [address] 77959- 2936 Mar, [facility] [id number] [place] [address] 93221- 9174 Mar, [facility] [id number] [place] [address] 27926- 5444 Feb, Lumbar neuritis M54.16 [facility] [id number] [place] [address] 81445- 9030 Feb, Lumbar neuritis M54.16 [facility] [id number] [place] [address] 82624- 1415 Feb, [facility] [id number] [place] [address] 87963- 1212 Feb, [facility] [id number] [place] [address] 79355- 6184 25 Jan, 2017 [facility] [id number] [place] [address] 24915- 6012 22 Jan, 2017 Peroneal tendonitis of left lower extremity M76.72 [facility] [id number] [place] [address] 94716- 9973 20 Jan, 2017 Lumbar neuritis M54.16 [facility] [id number] [place] [address] 59887- 7635 12 Jan, 2017 [facility] [id number] [place] [address] 36691- 3861 Dec, Lumbar neuritis M54.16 [facility] [address] [place] [address] 31230- 3284 Dec, [facility] [id number] [place] [address] 35968- 5200 Dec, Pain in right knee M25.561 ; Lumbar neuritis M54.16 and Cervical neuritis M54.12 [facility] [id number] [place] [address] 17405- 2574 Dec, [facility] [address] [place] [address] 01890- 8518 Dec, [facility] [id number] [place] [address] 14861- 9409 Nov, Lumbar neuritis M54.16 [facility] [id number] [place] [address] 32304- 7329 Nov, Bilateral primary osteoarthritis of knee M17.0 [facility] [id number] [place] [address] 45407- 0785 Nov, [facility] [id number] [place] [address] 37569- 3377 Nov, Bronchitis J40 and Plantar fasciitis M72.2 [facility] [id number] [place] [address] 81769- 0461 Nov, [facility] [id number] [place] [address] 61355- 1342 Oct, Lumbar neuritis M54.16 [facility] [id number] [place] [address] 74132- 8249 Oct, Lumbar neuritis M54.16 [facility] [id number] [place] [address] 18036- 9731 Oct, Lumbar neuritis M54.16 [facility] [id number] [place] [address] 88437- 8413 Oct, Plantar fasciitis M72.2 and Pain in right knee M25.561 [facility] [id number] [place] [address] 81496- 1442 16 Oct, 2016 Lumbar neuritis M54.16 ; Cervical neuritis M54.12 ; Other specified abdominal hernia without obstruction or gangrene K45.8 ; Heel spur, left M77.32 ; Plantar fasciitis M72.2 and Pain in right knee M25.561 [facility] [id number] [place] [address] 57726- 1514 13 Oct, 2016 [facility] [place] [facility] [address] [id number] [place] [address]- 7917 14 Aug, 2014 [facility] [place] [facility] [address] [id number] [place] [address]- 5832 13 Aug, 2014 [facility] [place] [facility] [address] [facility] [id number] [place] [address]- 1650 Apr, [facility] [place] [facility] [address] [id number] [place] [address]- 4030 Apr, [facility] [place] [facility] [address] [id number] [place] [address]- 4857 Mar, [facility] [place] [facility] [address] [id number] [place] [address]- 7941 Mar, [facility] [place] [facility] [address] [id number] [place] [address]- 8622 Feb, [facility] [place] [facility] [address] [id number] [address]- 3686 Feb, [facility] [place] [facility] [address] [id number] [place] [address]- 6053 Feb, [facility] [place] [facility] [address] [id number], [place] [address]- 2544 Feb, [facility] [place] [facility] [address] [id number], [place] [address]- 1301 Feb, [facility] [place] [facility] [address] [id number], [place] [address]- 8034 Feb, [facility] [place] [facility] [address] [id number], [place] [address]- 7823 Feb, [facility] [place] [facility] [address] [id number], [place] [address]- 3207 Feb, [facility] [place] [facility] [address] [id number], [place] [address]- 2729 Jan, [facility] [place] [facility] [address] [id number] [place] [address] 2546 30 Sep, 2013 [facility] [place] [facility] [address] [id number] [place] [address] 2546 30 Sep, 2013 [facility] [place] [facility] [address] [id number] [place] [address] 2546 30 Sep, 2013 [facility] [place] [facility] [address] [id number] [place] [address] 2546 30 Sep, 2013 [facility] [place] [facility] [address] [id number] [place] [address] 2546 30 Sep, 2013 [facility] [place] [facility] [address] [id number] [place] [address] 2546 26 Sep, 2013 [facility] [place] [facility] [address] [id number] [place] [address] 2546 26 Sep, 2013 [facility] [place] [facility] [address] [id number] [place] [address] 2542 22 Sep, 2013 [facility] [place] [facility] [address] [id number] [place] [address] 2540 22 Sep, 2013 [facility] [place] [facility] [address] [id number] [place] [address] 2542 16 Sep, 2013 [facility] [place] [facility] [address] [id number] [place] [address] 2548 16 Sep, 2013 [facility] [place] [facility] [address] [id number] [place] [address] 2546 16 Sep, 2013 [facility] [place] [facility] [address] [id number] [place] [address] 2546 16 Sep, 2013 [facility] [place] [facility] [address] [id number] [place] [address] 2546 12 Sep, 2013 [facility] [place] [facility] [address] [id number] [place] [address] 2546 12 Sep, 2013 [facility] [place] [facility] [address] [id number] [place] [address] 5107 12 Sep, 2013 [facility] [place] [facility] [address] [id number] [place] [address]- 0060 Jan, 2013 [facility] [place] [facility] [address] [id number] [place] [address]- 9852 Jan, 2013 [facility] [place] [facility] [address] [id number] [place] [address]- 4858 Jan, 2013 [facility] [place] [facility] [address] [id number] [place] [address]- 1111 Jan, 2013 [facility] [place] [facility] [address] [id number] [place] [address]- 5509 Jan, 2013 [facility] [place] [facility] [address] [id number] [place] [address]- 8528 Jan, 2013 [facility] [place] [facility] [address] [id number] [place] [address]- 7164 Jan, 2013 [facility] [place] [facility] [address] [id number] [place] [address]- 9070 Dec, [facility] [place] [facility] [address] [id number] [place] [address]- 7973 Dec, [facility] [place] [facility] [address] [id number] [place] [address]- 0644 Dec, [facility] [place] [facility] [address] [id number] [place] [address]- 3963 Dec, [facility] [place] [facility] [address] [id number] [place] [address]- 6603 Dec, [facility] [place] [facility] [address] [id number] [place] [address]- 4555 Dec, [facility] [place] [facility] [address] [id number] [place] [address]- 2152 Dec, [facility] [place] [facility] [address] [id number] [place] [address]- 2315 Dec, [facility] [place] [facility] [address] [id number] [place] [address]- 6504 Dec, [facility] [place] [facility] [address] [id number] [place] [address]- 6174 Dec, [facility] [place] [facility] [address] [id number] [place] [address]- 7878 Dec, [facility] [place] [facility] [address] [id number] [place] [address]- 1651 Dec, [facility] [place] [facility] [address] [id number] [place] [address]- 3872 Dec, [facility] [place] [facility] [address] [id number] [place] [address]- 3863 Dec, [facility] [place] [facility] [address] [id number] [place] [address]- 1716 Dec, [facility] [place] [facility] [address] [id number] [place] [address]- 0249 Dec, [facility] [place] [facility] [address] [id number] [place] [address]- 5389 Dec, [facility] [place] [facility] [address] [id number] [place] [address]- 7824 Dec, [facility] [place] [facility] [address] [id number] [place] [address]- 1415 Dec, [facility] [place] [facility] [address] [id number] [place] [address]- 9142 Nov, [facility] [place] [facility] [address] [id number] [place] [address]- 6261 Nov, [facility] [place] [facility] [address] [id number] [place] [address]- 7212 Nov, [facility] [place] [facility] [address] [id number] [place] [address]- 8634 Nov, [facility] [place] [facility] [address] [id number] [place] [address]- 0778 Nov, [facility] [place] [facility] [address] [id number], [place] [address]- 4216 Nov, [facility] [id number]- 1355 Nov, [facility] [address] 7815 Nov, [facility] [address]- 5762 Nov, [facility] [address], [place] [address]- 9936 Nov, [facility] [address], [place] [address]- 6567 Nov, [facility] [address], [place] [address]- 5619 Oct, [facility] [address], [place] [address]- 6980 Oct, [facility] [address], [place] [address]- 1360 Oct, [facility] [id number], [place] [address]- 0903 Apr, IMMUNIZATIONS No Known Immunizations SOCIAL HISTORY Never Assessed REASON FOR VISIT Pain management (chronic)-John [employer] PL[employer] OF C[employer] VITAL SIGNS Height 70 in 2017-11-25 Weight 211.6 lbs 2017-11-25 Temperature 97.7 degrees Fahrenheit 2017-11-25 Heart Rate 76 bpm 2017-11-25 Respiratory Rate 18 2017-11-25 BMI 30.36 kg/m2 2017-11-25 Blood pressure systolic 142 mmHg 2017-11-25 Blood pressure diastolic 80 mmHg 2017-11-25 MEDICATIONS Medication Instructions Dosage Frequency Start Date End Date Duration Status Prevacid 30 mg Orally Once a day 1 capsule 24h Dec, 30 days Active Gabapentin 300 MG TAKE 2 CAPSULES BY MOUTH THREE TIMES DAILY 30 Active Flonase 50 MCG/ACT Nasally Once a day 1 spray in each nostril 24h 30 days Active Tiotropium Hancock-Olodaterol 2.5-2.5 MCG/ACT Inhalation Once a day 2 puffs 24h Active ProAir HFA 108 (90 Base) MCG/ACT INHALE 2 PUFFS INTO LUNGS EVERY FOUR HOURS NEEDED FOR SHORTNESS OF BREATH Active Cetirizine HCl 10 mg by oral route Once a day 1 tablet 24h 16 Apr, 2018 30 days Active Voltaren 1 % apply 1g to affected area 2 times a day Transdermal Active Metoprolol Tartrate 100 mg Orally Twice a day 1 tablet with food 12h Oct 30 day(s) Active Morphine Sulfate ER 15 mg/8 hr Orally Once a day in am 1 tablet Aug, 14 days Not-Taking Hydrocodone-Acetaminophen 10-325 MG Orally 2 times a day 1 tablet as needed 12h Nov, 28 days Active Aspirin 81 mg 1 tablet by Oral route 1 time per day Dec, Not-Taking Aspir-81 Active Lipitor 80 mg 1 tablet by Oral route 1 time per day Active Cyclobenzaprine HCl 10 mg Orally Three times a day TAKE 1 TABLET BY MOUTH THREE TIMES DAILY 8h 30 Active Norvasc 10 mg 1 tablet Once a day Orally Active Cymbalta 30 MG Orally Twice a day 1 capsule 12h Not-Taking RESULTS No Results PROCEDURES Procedure Date Ordered Result Body Site LAB NOT BILLED BY [facility] November 25, 2017 INSTRUCTIONS MEDICATIONS ADMINISTERED No Known Medications MEDICAL [...]
--- OUTSIDE RECORDS SUMMARY | 2018-04-14 06:01 | XMS REPORT ---
Author Author PREETHI YIN Organization [facility] Address [address] [place] [address] Care Team Providers Care Loom Blower Name Role Phone PREETHI YIN Unavailable PROBLEMS Type Condition ICD9-CM Code TSK84-MR Code Onset Dates Condition Status SNOMED Code Problem Anxiety disorder, unspecified F41.9 Active 320280670 Problem Chronic pain syndrome G89.4 Active 573125413 Problem Bilateral primary osteoarthritis of knee M17.0 Active 774829459 ALLERGIES No Information ENCOUNTERS Encounter Location Date Diagnosis [facility] [id number] [place] [address] 44336- 1712 Dec, [facility] [id number] [place] [address] 33191- 0953 Nov, Chronic pain syndrome G89.4 [facility] [id number] [place] [address] 11832- 1296 Nov, [facility] [id number] [place] [address] 07795- 6767 Oct, [facility] [id number] [place] [address] 67358- 1193 Oct, [facility] [id number] [place] [address] 51769- 7432 Oct, [facility] [id number] [place] [address] 31444- 4093 Oct, Allergic reaction to drug, subsequent encounter T78.40XD [facility] [id number] [place] [address] 81065- 4628 September, [facility] [id number] [place] [address] 30010- 5152 September, [facility] [address], [place] [address] 4373 September, Low back pain radiating to lower extremity M54.5 [facility] [address], [place] [address] 0485 Aug, [facility] [address], [place] [address]- 0643 Aug, [facility] [address], [place] [address]- 1159 Aug, [facility] [address], [place] [address] 9238 Aug, [facility] [id number] [place] [address] 56537- 8139 Aug, Incisional infection, initial encounter T81.4XXA [facility] [id number] [place] [address] 15557- 6345 Aug, [facility] [address], [place] [address] 2515 Jul, [facility] [id number] [place] [address] 55391- 7919 Jul, [facility] [address], [place] [address]- 5168 Jul, Chronic pain syndrome G89.4 [facility] [address], [place] [address]- 5281 Jul, Pre-op evaluation Z01.818 [facility] [address], [place] [address]- 1727 Jul, [facility] [id number] [place] [address] 72783- 3538 Jun, Anxiety disorder, unspecified F41.9 and Chronic pain syndrome G89.4 [facility] [address], [place] [address]- 0171 Jun, [facility] [address], [place] [address]- 9431 Jun, [facility] [id number] [place] [address] 95320- 0808 Jun, [facility] [id number] [place] [address] 44498- 1707 Jun, [facility] [id number] [place] [address] 99360- 2111 Jun, Lumbar neuritis M54.16 [facility] [id number] [place] [address] 47371- 7501 May, [facility] [id number] [place] [address] 98917- 8820 May, [facility] [id number] [place] [address] 10357- 7259 May, Encounter for therapeutic drug level monitoring Z51.81 ; Encounter for immunization Z23 and Chronic pain syndrome G89.4 [facility] [id number] [place] [address] 27065- 3890 May, Lumbar neuritis M54.16 [facility] [id number] [place] [address] 69538- 4933 May, [facility] [id number] [place] [address] 81677- 9266 Apr, Lumbar neuritis M54.16 [facility] [id number] [place] [address] 15188- 6303 Apr, [facility] [id number] [place] [address] 54407- 9260 Mar, Lumbar neuritis M54.16 [facility] [id number] [place] [address] 78181- 8304 08 Mar, 2017 [facility] [id number] [place] [address] 90862- 6294 Mar, [facility] [id number] [place] [address] 39540- 4096 Feb, Lumbar neuritis M54.16 [facility] [id number] [place] [address] 64501- 8633 18 Feb, 2017 Lumbar neuritis M54.16 [facility] [id number] [place] [address] 29749- 3350 16 Feb, 2017 [facility] [id number] [place] [address] 89733- 9572 Feb, [facility] [id number] [place] [address] 32869- 6961 25 Jan, 2017 [facility] [id number] [place] [address] 86505- 6503 22 Jan, 2017 Peroneal tendonitis of left lower extremity M76.72 [facility] [id number] [place] [address] 59230- 2139 Jan, Lumbar neuritis M54.16 [facility] [id number] [place] [address] 44653- 7879 Jan, [facility] [id number] [place] [address] 94529- 3869 Dec, Lumbar neuritis M54.16 [facility] [id number] [place] [address] 14408- 1722 Dec, [facility] [id number] [place] [address] 86142- 7938 Dec, Pain in right knee M25.561 ; Lumbar neuritis M54.16 and Cervical neuritis M54.12 [facility] [id number] [place] [address] 90293- 8379 14 Dec, 2016 [facility] [id number] [place] [address] 11859- 4960 Dec, [facility] [id number] [place] [address] 07115- 3973 Nov, Lumbar neuritis M54.16 [facility] [id number] [place] [address] 41463- 4325 Nov, Bilateral primary osteoarthritis of knee M17.0 [facility] [id number] [place] [address] 91271- 1186 Nov, [facility] [address] 26185- 3081 Nov, Bronchitis J40 and Plantar fasciitis M72.2 [address] 64969- 3986 Nov, [facility] [id number] [place] [address] 29092- 7280 Oct, Lumbar neuritis M54.16 [facility] [address] 10264- 8612 Oct, Lumbar neuritis M54.16 [facility] [id number] [place] [address] 69429- 8901 Oct, Lumbar neuritis M54.16 [facility] [id number] [place] [address] 84695- 3747 Oct, Plantar fasciitis M72.2 and Pain in right knee M25.561 [address] [id number] [place] [address] 13420- 7310 16 Oct, 2016 Lumbar neuritis M54.16 ; Cervical neuritis M54.12 ; Other specified abdominal hernia without obstruction or gangrene K45.8 ; Heel spur, left M77.32 ; Plantar fasciitis M72.2 and Pain in right knee M25.561 [facility] [id number] [place] [address] 23389- 4429 13 Oct, 2016 [facility] [id number] [place] [address] 57101- 0054 14 Aug, 2014 [facility] [place] [facility] [address] [id number] [place] [address]- 6912 13 Aug, 2014 [facility] [place] [facility] [address] [id number] [place] [address]- 8124 Apr, [facility] [place] [facility] [address] [id number] [place] [address]- 1322 Apr, [facility] [place] [facility] [address] [id number] [place] [address]- 6845 Mar, [facility] [place] [facility] [address] [id number] [place] [address]- 2992 Mar, [facility] [place] [facility] [address] [id number] [place] [address]- 2374 Feb, [facility] [place] [facility] [address] [id number] [place] 4036 Feb, [facility] [place] [facility] [address] [id number] [place] [address]- 4064 Feb, [facility] [place] [facility] [address] [id number] [place] [address]- 0344 Feb, [facility] [place] [facility] [address] [id number] [place] [address]- 8223 Feb, [facility] [place] [facility] [address] [facility] [id number] [place] [address]- 2544 Feb, [facility] [place] [facility] [address] [id number] [place] [address]- 5149 Feb, [facility] [place] [facility] [address] [id number] [place] [address]- 1667 Feb, [facility] [place] [facility] [address] [id number] [place] [address]- 4106 30 Jan, 2013 [facility] [place] [facility] [address] [id number] [place] [address]- 4156 30 Jan, 2013 [facility] [place] [facility] [address] [id number] [place] [address]- 9588 30 Sep, 2013 [facility] [place] [facility] [address] [id number] [place] [address] 254 30 Sep, 2013 [facility] [place] [facility] [address] [id number] [place] [address] 254 30 Sep, 2013 [facility] [place] [facility] [address] [id number] [place] [address]- 7861 30 Sep, 2013 [facility] [place] [facility] [address] [id number] [place] [address]- 4000 26 Sep, 2013 [facility] [place] [facility] [address] [id number] [place] [address]- 1163 26 Sep, 2013 [facility] [place] [facility] [address] [id number] [place] [address]- 4362 22 Sep, 2013 [facility] [place] [facility] [address] [id number] [place] [address]- 1637 22 Sep, 2013 [facility] [place] [facility] [address] [id number] [place] [address]- 9981 16 Sep, 2013 [facility] [place] [facility] [address] [id number] [place] [address]- 3402 16 Sep, 2013 [facility] [place] [facility] [address] [id number] [place] [address]- 6306 16 Sep, 2013 [facility] [place] [facility] [address] [id number] [place] [address]- 1600 16 Sep, 2013 [facility] [place] [facility] [address] [id number] [address]- 7027 12 Sep, 2013 [facility] [place] [facility] [address] [id number] [place] [address]- 2547 12 Sep, 2013 [facility] [place] [facility] [address] [id number] [place] [address]- 2540 12 Sep, 2013 [facility] [place] [facility] [address] [id number] [place] [address]- 1167 12 Sep, 2013 [facility] [place] [facility] [address] [id number] [place] [address]- 2405 Jan, 2013 [facility] [place] [facility] [address] [id number] [place] [address]- 7511 Jan, 2013 [facility] [place] [facility] [address] [id number] [place] [address]- 5836 Jan, 2013 [facility] [place] [facility] [address] [id number] [place] [address]- 6746 Jan, 2013 [facility] [place] [facility] [address] [id number] [place] [address]- 0849 Jan, 2013 [facility] [place] [facility] [address] [id number] [place] [address]- 1027 Jan, [facility] [place] [facility] [address] [id number] [place] [address]- 9205 Dec, [facility] [place] [facility] [address] [id number] [place] [address]- 0532 Dec, [facility] [place] [facility] [address] [id number] [place] [address]- 6574 Dec, [facility] [place] [facility] [address] [id number] [place] [address]- 0286 Dec, [facility] [place] [facility] [address] [id number] [place] [address]- 8073 Dec, [facility] [place] [facility] [address] [id number] [place] [address]- 9609 Dec, [facility] [place] [facility] [address] [id number] [place] [address]- 1416 Dec, [facility] [place] [facility] [address] [id number] [place] [address]- 2674 Dec, [facility] [place] [facility] [address] [id number] [place] [address]- 0058 Dec, [facility] [place] [facility] [address] [id number] [place] [address]- 8157 Dec, [facility] [place] [facility] [address] [id number] [place] [address]- 8350 Dec, [facility] [place] [facility] [address] [id number] [place] [address]- 5789 Dec, [facility] [place] [facility] [address] [id number] [place] [address]- 2379 Dec, [facility] [place] [facility] [address] [id number] [place] [address]- 4843 Dec, [facility] [place] [facility] [address] [id number] [place] [address]- 3251 Dec, [facility] [place] [facility] [address] [id number] [place] [address]- 4455 Dec, [facility] [place] [facility] [address] [id number] [place] [address]- 7816 Dec, [facility] [place] [facility] [address] [id number] [place] [address]- 5541 Dec, [facility] [place] [facility] [address] [id number] [place] [address]- 8322 Dec, [facility] [place] [facility] [address] [id number] [place] [address]- 9354 Nov, [facility] [place] [facility] [address] [id number] [place] [address]- 0692 Nov, [facility] [place] [facility] [address] [id number] [place] [address]- 7891 Nov, [facility] [place] [facility] [address] [id number] [place] [address]- 6579 Nov, [facility] [place] [facility] [address] [id number] [place] [address]- 9661 Nov, [facility] [place] [facility] [address] [id number] [place] [address]- 0660 Nov, [facility] [place] [facility] [address] [id number], [place] [address]- 3626 Nov, [facility] [address] [facility] [id number], [place] [address]- 8942 Nov, [facility] [address] [facility] [id number], [place] [address]- 8287 Nov, [facility] [id number] [address]- 6568 Nov, [facility] [address] [facility] [id number], [place] [address]- 7564 Nov, [facility] [id number] [address]- 8466 Oct, [facility] [address], [place] [address]- 9064 Oct, [facility] [id number] [address]- 6594 Oct, [facility] [id number] [address]- 6114 Apr, IMMUNIZATIONS No Known Immunizations SOCIAL HISTORY Never Assessed REASON FOR VISIT Refill request PLAN OF CARE VITAL SIGNS MEDICATIONS Medication Instructions Dosage Frequency Start Date End Date Duration Status Cyclobenzaprine HCl 10 mg Orally Three times a day TAKE 1 TABLET BY MOUTH THREE TIMES DAILY 8h 30 Active RESULTS No Results PROCEDURES No Known [...]
--- OUTSIDE RECORDS SUMMARY | 2018-04-14 06:01 | XMS REPORT ---
Author Author PREETHI YIN Organization [facility] Address [address] [place] [address] Care Team Providers Care Director Biology Name Role Phone PREETHI YIN Unavailable PROBLEMS Type Condition ICD9-CM Code [id number] Code Onset Dates Condition Status SNOMED Code Problem Anxiety disorder, unspecified F41.9 Active 099901609 Problem Chronic pain syndrome G89.4 Active 141456206 Problem Bilateral primary osteoarthritis of knee M17.0 Active [id number] ALLERGIES No Information ENCOUNTERS Encounter Location Date Diagnosis [facility] [id number] [place] [address] 42078- 6984 Dec, [facility] [id number] [place] [address] 21654- 7781 Nov, Chronic pain syndrome G89.4 [facility] [id number] [place] [address] 13872- 9684 Nov, [facility] [id number] [place] [address] 15313- 8919 Oct, [facility] [id number] [place] [address] 57902- 7964 Oct, [facility] [id number] [place] [address] 20205- 8479 Oct, [facility] [id number] [place] [address] 99079- 3973 Oct, Allergic reaction to drug, subsequent encounter T78.40XD [facility] [id number] [place] [address] 43516- 3729 September, [facility] [id number] [place] [address] 73564- 9459 September, [facility] [address], [place] [address] 4603 September, Low back pain radiating to lower extremity M54.5 [facility] [address], [place] [address]- 9467 Aug, [facility] [address], [place] [address]- 5915 Aug, [facility] [address], [place] [address] 3330 Aug, [facility] [address], [place] [address]- 3888 Aug, [facility] [id number] [place] [address] 83591- 2108 Aug, Incisional infection, initial encounter T81.4XXA [facility] [id number] [place] [address] 29182- 2218 Aug, [facility] [address], [place] [address]- 0676 Jul, [facility] [id number] [place] [address] 13934- 8632 Jul, [facility] [address], [place] [address] 0770 Jul, Chronic pain syndrome G89.4 [facility] [address], [place] [address] 6301 Jul, Pre-op evaluation Z01.818 [facility] [address], [place] [address]- 3633 Jul, [facility] [id number] [place] [address] 58684- 9017 Jun, Anxiety disorder, unspecified F41.9 and Chronic pain syndrome G89.4 [facility] [address], [place] [address]- 3627 Jun, [facility] [address], [place] [address]- 5014 Jun, [facility] [id number] [place] [address] 52436- 6156 Jun, [facility] [id number] [place] [address] 32396- 6514 Jun, [facility] [id number] [place] [address] 94308- 2613 Jun, Lumbar neuritis M54.16 [facility] [id number] [place] [address] 55117- 0491 May, [facility] [id number] [place] [address] 77087- 3863 May, [facility] [id number] [place] [address] 71070- 9062 May, Encounter for therapeutic drug level monitoring Z51.81 ; Encounter for immunization Z23 and Chronic pain syndrome G89.4 [facility] [id number] [place] [address] 31972- 0160 May, Lumbar neuritis M54.16 [facility] [id number] [place] [address] 13727- 0650 May, [facility] [id number] [place] [address] 85844- 1126 Apr, Lumbar neuritis M54.16 [facility] [id number] [place] [address] 07393- 9997 Apr, [facility] [id number] [place] [address] 33586- 1236 Mar, Lumbar neuritis M54.16 [facility] [id number] [place] [address] 84374- 7068 08 Mar, 2017 [facility] [id number] [place] [address] 16580- 9524 Mar, [facility] [address] [place] [address] 75390- 5171 Feb, Lumbar neuritis M54.16 [facility] [id number] [place] [address] 86892- 6386 18 Feb, 2017 Lumbar neuritis M54.16 [facility] [id number] [place] [address] 66547- 9513 16 Feb, 2017 [facility] [id number] [place] [address] 41043- 3527 Feb, [facility] [id number] [place] [address] 18336- 9105 25 Jan, 2017 [facility] [id number] [place] [address] 08531- 4132 22 Jan, 2017 Peroneal tendonitis of left lower extremity M76.72 [facility] [id number] [place] [address] 40728- 4027 Jan, Lumbar neuritis M54.16 [facility] [id number] [place] [address] 89139- 1788 Jan, [facility] [id number] [place] [address] 64559- 7609 Dec, Lumbar neuritis M54.16 [facility] [id number] [place] [address] 58392- 9749 Dec, [facility] [id number] [place] [address] 21107- 4608 Dec, Pain in right knee M25.561 ; Lumbar neuritis M54.16 and Cervical neuritis M54.12 [facility] [id number] [place] [address] 85568- 2251 14 Dec, 2016 [facility] [address] [place] [address] 14941- 1962 Dec, [facility] [id number] [place] [address] 56991- 7701 Nov, Lumbar neuritis M54.16 [facility] [id number] [place] [address] 06582- 9766 Nov, Bilateral primary osteoarthritis of knee M17.0 [facility] [id number] [place] [address] 22433- 8981 Nov, [facility] [address] 16618- 2576 Nov, Bronchitis J40 and Plantar fasciitis M72.2 [place] [address] 28992- 4193 Nov, [facility] [id number] [place] [address] 38054- 8802 Oct, Lumbar neuritis M54.16 [facility] [address] 42186- 5317 Oct, Lumbar neuritis M54.16 [facility] [id number] [place] [address] 26275- 5084 Oct, Lumbar neuritis M54.16 [facility] [id number] [place] [address] 71657- 6783 Oct, Plantar fasciitis M72.2 and Pain in right knee M25.561 [place] [id number] [place] [address] 07720- 1622 16 Oct, 2016 Lumbar neuritis M54.16 ; Cervical neuritis M54.12 ; Other specified abdominal hernia without obstruction or gangrene K45.8 ; Heel spur, left M77.32 ; Plantar fasciitis M72.2 and Pain in right knee M25.561 [facility] [id number] [place] [address] 10826- 5747 13 Oct, 2016 [facility] [id number] [place] [address] 35750- 7221 14 Aug, 2014 [facility] [place] [facility] [address] [id number] [place] [address]- 1845 13 Aug, 2014 [facility] [place] [facility] [address] [id number] [place] [address]- 7351 Apr, [facility] [place] [facility] [address] [id number] [place] [address]- 9433 Apr, [facility] [place] [facility] [address] [id number] [place] [address]- 4752 Mar, [facility] [place] [facility] [address] [id number] [place] [address]- 8773 Mar, [facility] [place] [facility] [address] [id number] [place] [address]- 4886 Feb, [facility] [place] [facility] [address] [id number] [place]86 Feb, [facility] [place] [facility] [address] [id number] [place] [address]- 0443 Feb, [facility] [place] [facility] [address] [id number] [place] [address]- 8287 Feb, [facility] [place] [facility] [address] [id number] [place] [address]- 2723 Feb, [facility] [place] [facility] [address] [facility] [id number] [place] [address]- 4312 Feb, [facility] [place] [facility] [address] [id number] [place] [address]- 1294 Feb, [facility] [place] [facility] [address] [id number] [place] [address]- 4701 Feb, [facility] [place] [facility] [address] [id number] [place] [address]- 3776 30 Jan, 2013 [facility] [place] [facility] [address] [id number] [place] [address]- 8406 30 Jan, 2013 [facility] [place] [facility] [address] [id number] [place] [address]- 3496 30 Sep, 2013 [facility] [place] [facility] [address] [id number] [place] [address] 2545 30 Sep, 2013 [facility] [place] [facility] [address] [id number] [place] [address] 2545 30 Sep, 2013 [facility] [place] [facility] [address] [id number] [place] [address]- 9117 30 Sep, 2013 [facility] [place] [facility] [address] [id number] [place] [address]- 8211 26 Sep, 2013 [facility] [place] [facility] [address] [id number] [place] [address]- 8275 26 Sep, 2013 [facility] [place] [facility] [address] [id number] [place] [address]- 4906 22 Sep, 2013 [facility] [place] [facility] [address] [id number] [place] [address]- 7209 22 Sep, 2013 [facility] [place] [facility] [address] [id number] [place] [address]- 0237 16 Sep, 2013 [facility] [place] [facility] [address] [id number] [place] [address]- 2521 16 Sep, 2013 [facility] [place] [facility] [address] [id number] [place] [address]- 2226 16 Sep, 2013 [facility] [place] [facility] [address] [id number] [place] [address]- 8231 16 Sep, 2013 [facility] [place] [facility] [address] [id number], [place] [address]- 2491 12 Sep, 2013 [facility] [place] [facility] [address] [id number] [place] [address]- 2541 12 Sep, 2013 [facility] [place] [facility] [address] [id number] [place] [address]- 2544 12 Sep, 2013 [facility] [place] [facility] [address] [id number] [place] [address]- 6788 12 Sep, 2013 [facility] [place] [facility] [address] [id number] [place] [address]- 3396 Jan, 2013 [facility] [place] [facility] [address] [id number] [place] [address]- 5926 Jan, 2013 [facility] [place] [facility] [address] [id number] [place] [address]- 3886 Jan, 2013 [facility] [place] [facility] [address] [id number] [place] [address]- 3240 Jan, 2013 [facility] [place] [facility] [address] [id number] [place] [address]- 8566 Jan, 2013 [facility] [place] [facility] [address] [id number] [place] [address]- 4627 Jan, [facility] [place] [facility] [address] [id number] [place] [address]- 4948 Dec, [facility] [place] [facility] [address] [id number] [place] [address]- 2934 Dec, [facility] [place] [facility] [address] [id number] [place] [address]- 8206 Dec, [facility] [place] [facility] [address] [id number] [place] [address]- 9945 Dec, [facility] [place] [facility] [address] [id number] [place] [address]- 3860 Dec, [facility] [place] [facility] [address] [id number] [place] [address]- 7105 Dec, [facility] [place] [facility] [address] [id number] [place] [address]- 4541 Dec, [facility] [place] [facility] [address] [id number] [place] [address]- 8084 Dec, [facility] [place] [facility] [address] [id number] [place] [address]- 3631 Dec, [facility] [place] [facility] [address] [id number] [place] [address]- 0828 Dec, [facility] [place] [facility] [address] [id number] [place] [address]- 6624 Dec, [facility] [place] [facility] [address] [id number] [place] [address]- 2784 Dec, [facility] [place] [facility] [address] [id number] [place] [address]- 6982 Dec, [facility] [place] [facility] [address] [id number] [place] [address]- 6766 Dec, [facility] [place] [facility] [address] [id number] [place] [address]- 7740 Dec, [facility] [place] [facility] [address] [id number] [place] [address]- 2812 Dec, [facility] [place] [facility] [address] [id number] [place] [address]- 6023 Dec, [facility] [place] [facility] [address] [id number] [place] [address]- 2704 Dec, [facility] [place] [facility] [address] [id number] [place] [address]- 1310 Dec, [facility] [place] [facility] [address] [id number] [place] [address]- 2071 Nov, [facility] [place] [facility] [address] [id number] [place] [address]- 2308 Nov, [facility] [place] [facility] [address] [id number] [place] [address]- 8404 Nov, [facility] [place] [facility] [address] [id number] [place] [address]- 5714 Nov, [facility] [place] [facility] [address] [id number] [place] [address]- 9316 Nov, [facility] [place] [facility] [address] [id number] [place] [address]- 4036 Nov, [facility] [place] [facility] [address] [id number], [place] [address]- 7196 Nov, [facility] [address] [facility] [id number], [place] [address]- 4071 Nov, [facility] [address] [facility] [id number], [place] [address]- 9799 Nov, [facility] [id number] [address]- 6293 Nov, [facility] [address] [facility] [id number], [place] [address]- 4383 Nov, [facility] [address] [facility] [id number], [place] [address]- 7035 Oct, [facility] [address], [place] [address]- 3417 Oct, [facility] [id number] [address]- 6589 Oct, [facility] [id number] [address]- 9639 Apr, IMMUNIZATIONS No Known Immunizations SOCIAL HISTORY Never Assessed REASON FOR VISIT Controlled Med Refill PLAN OF CARE VITAL SIGNS MEDICATIONS Medication Instructions Dosage Frequency Start Date End Date Duration Status Hydrocodone-Acetaminophen 10-325 MG Orally 2 times a day 1 tablet as needed 12h 11 Oct, 2017 28 days Active RESULTS No Results PROCEDURES [...]
--- OUTSIDE RECORDS SUMMARY | 2018-04-14 06:01 | XMS REPORT ---
Author Author PREETHI YIN Organization [facility] [place] Address [address] [place] [address] Care Team Providers Care Affiliate Marketing Coordinator Name Role Phone PREETHI YIN Unavailable PROBLEMS Type Condition ICD9-CM Code ETF18-NA Code Onset Dates Condition Status SNOMED Code Problem Anxiety disorder, unspecified F41.9 Active 064940171 Problem Chronic pain syndrome G89.4 Active 571070084 Problem Bilateral primary osteoarthritis of knee M17.0 Active [id number] ALLERGIES No Information ENCOUNTERS Encounter Location Date Diagnosis [facility] [place] [id number] [place] [address] 60620- 1702 Dec, [facility] [place] [id number] [place] [address] 61981- 5567 Nov, Chronic pain syndrome G89.4 [facility] [place] [id number] [place] [address] 55618- 5239 Nov, [facility] [place] [id number] [place] [address] 72001- 6942 Oct, [facility] [place] [id number] [place] [address] 07441- 7553 Oct, [facility] [place] [id number] [place] [address] 95013- 7878 Oct, [facility] [place] [id number] [place] [address] 86132- 1781 Oct, Allergic reaction to drug, subsequent encounter T78.40XD [facility] [place] [id number] [place] [address] 68549- 7519 September, [facility] [place] [id number] [place] [address] 37501- 0445 September, [facility] [place] [address] [address] September, Low back pain radiating to lower extremity M54.5 [facility] [place] [address] [address] 3606 Aug, [facility] [place] [address] [address]- 8669 Aug, [facility] [place] [address] [address]- 4454 Aug, [facility] [place] [address] [address] 2151 Aug, [facility] [place] [id number] [place] [address] 07004- 2321 Aug, Incisional infection, initial encounter T81.4XXA [facility] [place] [id number] [place] [address] 12489- 6759 Aug, [facility] [place] [address] [address]- 3282 Jul, [facility] [place] [id number] [place] [address] 77656- 1870 Jul, [facility] [place] [address] [address] 2054 Jul, Chronic pain syndrome G89.4 [facility] [place] [address], [place] [address]- 0588 Jul, Pre-op evaluation Z01.818 [facility] [place] [address] [address]- 6208 Jul, [facility] [place] [id number] [place] [address] 26517- 7458 Jun, Anxiety disorder, unspecified F41.9 and Chronic pain syndrome G89.4 [facility] [place] [address] [address]- 9354 Jun, [facility] [place] [address] [address]- 5523 Jun, [facility] [place] [id number] [place] [address] 76730- 7989 Jun, [facility] [place] [id number] [place] [address] 49554- 8291 Jun, [facility] [place] [id number] [place] [address] 02872- 4652 Jun, Lumbar neuritis M54.16 [facility] [place] [id number] [place] [address] 58351- 9735 May, [facility] [place] [id number] [place] [address] 96114- 4156 May, [facility] [place] [id number] [place] [address] 89163- 3729 May, Encounter for therapeutic drug level monitoring Z51.81 ; Encounter for immunization Z23 and Chronic pain syndrome G89.4 [facility] [place] [id number] [place] [address] 00807- 4209 May, Lumbar neuritis M54.16 [facility] [place] [id number] [place] [address] 82026- 4639 May, [facility] [place] [id number] [place] [address] 32838- 9627 Apr, Lumbar neuritis M54.16 [facility] [place] [id number] [place] [address] 51652- 6213 Apr, [facility] [place] [id number] [place] [address] 44066- 9655 Mar, Lumbar neuritis M54.16 [facility] [place] [id number] [place] [address] 18239- 4011 08 Mar, 2017 [facility] [place] [id number] [place] [address] 49686- 6397 Mar, [facility] [place] [id number] [place] [address] 84360- 2912 Feb, Lumbar neuritis M54.16 [facility] [place] [id number] [place] [address] 51046- 8633 18 Feb, 2017 Lumbar neuritis M54.16 [facility] [place] [id number] [place] [address] 41675- 2869 16 Feb, 2017 [facility] [place] [id number] [place] [address] 71937- 6686 Feb, [facility] [place] [id number] [place] [address] 71229- 4729 25 Jan, 2017 [facility] [place] [id number] [place] [address] 87202- 3332 22 Jan, 2017 Peroneal tendonitis of left lower extremity M76.72 [facility] [place] [id number] [place] [address] 22545- 9312 Jan, Lumbar neuritis M54.16 [facility] [place] [id number] [place] [address] 38966- 4773 Jan, [facility] [place] [id number] [place] [address] 96126- 6952 Dec, Lumbar neuritis M54.16 [facility] [place] [id number] [place] [address] 09569- 1278 Dec, [facility] [place] [id number] [place] [address] 70230- 7407 Dec, Pain in right knee M25.561 ; Lumbar neuritis M54.16 and Cervical neuritis M54.12 [facility] [place] [id number] [place] [address] 40068- 0373 14 Dec, 2016 [facility] [place] [id number] [place] [address] 69660- 5363 Dec, [facility] [place] [id number] [place] [address] 81911- 4192 Nov, Lumbar neuritis M54.16 [facility] [place] [id number] [place] [address] 66914- 2112 Nov, Bilateral primary osteoarthritis of knee M17.0 [facility] [place] [id number] [place] [address] 44526- 4616 Nov, [facility] [place] [address] 98653- 6463 Nov, Bronchitis J40 and Plantar fasciitis M72.2 [address] 31033- 8277 Nov, [facility] [place] [id number] [place] [address] 14917- 4334 Oct, Lumbar neuritis M54.16 [facility] [place] [address] 22071- 2015 Oct, Lumbar neuritis M54.16 [facility] [place] [id number] [place] [address] 86350- 1517 Oct, Lumbar neuritis M54.16 [facility] [place] [id number] [place] [address] 47920- 8710 Oct, Plantar fasciitis M72.2 and Pain in right knee M25.561 [id number] [place] [address] 07683- 9440 16 Oct, 2016 Lumbar neuritis M54.16 ; Cervical neuritis M54.12 ; Other specified abdominal hernia without obstruction or gangrene K45.8 ; Heel spur, left M77.32 ; Plantar fasciitis M72.2 and Pain in right knee M25.561 [facility] [place] [id number] [place] [address] 41090- 2719 13 Oct, 2016 [facility] [place] [id number] [place] [address] 79759- 3547 14 Aug, 2014 [facility] [place] [facility] [address] [id number] [place] [address]- 1356 13 Aug, 2014 [facility] [place] [facility] [address] [id number] [place] [address]- 2732 Apr, [facility] [place] [facility] [address] [id number] [place] [address]- 3456 Apr, [facility] [place] [facility] [address] [id number] [place] [address]- 2596 Mar, [facility] [place] [facility] [address] [id number] [place] [address]- 7576 Mar, [facility] [place] [facility] [address] [id number] [place] [address]- 4834 Feb, [facility] [place] [facility] [address] [id number] [place]60 Feb, [facility] [place] [facility] [address] [id number] [place] [address]- 6566 Feb, [facility] [place] [facility] [address] [id number] [place] [address]- 2747 Feb, [facility] [place] [facility] [address] [id number] [place] [address]- 6815 Feb, [facility] [place] [facility] [address] [facility] [id number] [place] [address]- 3475 Feb, [facility] [place] [facility] [address] [id number] [place] [address]- 4375 Feb, [facility] [place] [facility] [address] [id number] [place] [address]- 4346 Feb, [facility] [place] [facility] [address] [id number] [place] [address]- 9026 30 Jan, 2013 [facility] [place] [facility] [address] [id number] [place] [address]- 7476 30 Jan, 2013 [facility] [place] [facility] [address] [id number] [place] [address]- 2565 30 Sep, 2013 [facility] [place] [facility] [address] [id number] [place] [address] 2544 30 Sep, 2013 [facility] [place] [facility] [address] [id number] [place] [address] 2549 30 Sep, 2013 [facility] [place] [facility] [address] [id number] [place] [address]- 9244 30 Sep, 2013 [facility] [place] [facility] [address] [id number] [place] [address]- 1143 26 Sep, 2013 [facility] [place] [facility] [address] [id number] [place] [address]- 0001 26 Sep, 2013 [facility] [place] [facility] [address] [id number] [place] [address]- 0700 22 Sep, 2013 [facility] [place] [facility] [address] [id number] [place] [address]- 9828 22 Sep, 2013 [facility] [place] [facility] [address] [id number] [place] [address]- 5440 16 Sep, 2013 [facility] [place] [facility] [address] [id number] [place] [address]- 8098 16 Sep, 2013 [facility] [place] [facility] [address] [id number] [place] [address]- 4693 16 Sep, 2013 [facility] [place] [facility] [address] [id number] [place] [address]- 0234 16 Sep, 2013 [facility] [place] [facility] [address] [id number] [address]- 9784 12 Sep, 2013 [facility] [place] [facility] [address] [id number] [place] [address]- 2545 12 Sep, 2013 [facility] [place] [facility] [address] [id number] [place] [address]- 2544 12 Sep, 2013 [facility] [place] [facility] [address] [id number] [place] [address]- 5736 12 Sep, 2013 [facility] [place] [facility] [address] [id number] [place] [address]- 2340 Jan, 2013 [facility] [place] [facility] [address] [id number] [place] [address]- 2470 Jan, 2013 [facility] [place] [facility] [address] [id number] [place] [address]- 0506 Jan, 2013 [facility] [place] [facility] [address] [id number] [place] [address]- 4557 Jan, 2013 [facility] [place] [facility] [address] [id number] [place] [address]- 0175 Jan, 2013 [facility] [place] [facility] [address] [id number] [place] [address]- 9025 Jan, [facility] [place] [facility] [address] [id number] [place] [address]- 2844 Dec, [facility] [place] [facility] [address] [id number] [place] [address]- 9897 Dec, [facility] [place] [facility] [address] [id number] [place] [address]- 1454 Dec, [facility] [place] [facility] [address] [id number] [place] [address]- 1303 Dec, [facility] [place] [facility] [address] [id number] [place] [address]- 5217 Dec, [facility] [place] [facility] [address] [id number] [place] [address]- 5870 Dec, [facility] [place] [facility] [address] [id number] [place] [address]- 7416 Dec, [facility] [place] [facility] [address] [id number] [place] [address]- 1642 Dec, [facility] [place] [facility] [address] [id number] [place] [address]- 6437 Dec, [facility] [place] [facility] [address] [id number] [place] [address]- 5071 Dec, [facility] [place] [facility] [address] [id number] [place] [address]- 1761 Dec, [facility] [place] [facility] [address] [id number] [place] [address]- 8237 Dec, [facility] [place] [facility] [address] [id number] [place] [address]- 5817 Dec, [facility] [place] [facility] [address] [id number] [place] [address]- 3766 Dec, [facility] [place] [facility] [address] [id number] [place] [address]- 9561 Dec, [facility] [place] [facility] [address] [id number] [place] [address]- 2998 Dec, [facility] [place] [facility] [address] [id number] [place] [address]- 8926 Dec, [facility] [place] [facility] [address] [id number] [place] [address]- 7386 Dec, [facility] [place] [facility] [address] [id number] [place] [address]- 9980 Dec, [facility] [place] [facility] [address] [id number] [place] [address]- 2551 Nov, [facility] [place] [facility] [address] [id number] [place] [address]- 9904 Nov, [facility] [place] [facility] [address] [id number] [place] [address]- 1282 Nov, [facility] [place] [facility] [address] [id number] [place] [address]- 4456 Nov, [facility] [place] [facility] [address] [id number] [place] [address]- 6959 Nov, [facility] [place] [facility] [address] [id number] [place] [address]- 6919 Nov, [facility] [place] [facility] [address] [id number], [place] [address]- 0406 Nov, [facility] [place] [address] [facility] [id number], [place] [address]- 8218 Nov, [facility] [place] [address] [facility] [id number], [place] [address]- 8186 Nov, [facility] [place] [id number] [address]- 7909 Nov, [facility] [place] [address] [facility] [id number], [place] [address]- 4794 Nov, [facility] [place] [address] [facility] [id number], [place] [address]- 2530 Oct, [facility] [place] [address] [address]- 8756 Oct, [facility] [place] [id number] [address]- 2711 Oct, [facility] [place] [id number] [address]- 2609 Apr, IMMUNIZATIONS No Known Immunizations SOCIAL HISTORY Never Assessed REASON FOR VISIT Refill request PLAN OF CARE VITAL SIGNS MEDICATIONS Medication Instructions Dosage Frequency Start Date End Date Duration Status Cetirizine HCl 10 mg by oral route Once a day 1 tablet 24h Apr, 30 days Active RESULTS No Results PROCEDURES No [...]
--- OUTSIDE RECORDS SUMMARY | 2018-04-14 06:01 | XMS REPORT ---
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 Name Role Phone PREETHI YIN Unavailable PROBLEMS Type Condition ICD9-CM Code [id number] Code Onset Dates Condition Status SNOMED Code Problem Anxiety disorder, unspecified F41.9 Active 686037511 Problem Chronic pain syndrome G89.4 Active 217684406 Problem Bilateral primary osteoarthritis of knee M17.0 Active 462720602 ALLERGIES Substance Reaction Event Type Date Status Dilaudid dizziness Drug Allergy Oct, Active ENCOUNTERS Encounter Location Date Diagnosis [facility] [id number] [place] [address] 83486- 0096 Dec, [facility] [id number] [place] [address] 54282- 0788 Nov, Chronic pain syndrome G89.4 [facility] [id number] [place] [address] 48236- 0243 Nov, [facility] [id number] [place] [address] 49130- 1632 Oct, [facility] [id number] [place] [address] 36969- 6218 Oct, [facility] [id number] [place] [address] 71821- 3518 Oct, [facility] [id number] [place] [address] 32946- 6432 Oct, Allergic reaction to drug, subsequent encounter T78.40XD [facility] [id number] [place] [address] 63273- 3775 September, [facility] [id number] [place] [address] 20390- 9064 September, [facility] [address], [place] [address] 7[address] September, Low back pain radiating to lower extremity M54.5 [facility] [address], [place] [address] 4336 Aug, [facility] [address], [place] [address] 1102 Aug, [facility] [address] [address] 2301 Aug, [facility] [id number] [place] [address] 05400- 7453 Aug, [facility] [address], [place] [address] 7952 Aug, Incisional infection, initial encounter T81.4XXA [facility] [address], [place] [address] 9859 Aug, [facility] [address], [place] [address] 9078 Jul, [facility] [address], [place] [address] 4065 Jul, [facility] [address], [place] [address] 2097 Jul, Chronic pain syndrome G89.4 [facility] [address], [place] [address] 9064 Jul, Pre-op evaluation Z01.818 [facility] [id number] [place] [address] 71077- 3216 Jul, [facility] [address], [place] [address]- 5683 Jun, Anxiety disorder, unspecified F41.9 and Chronic pain syndrome G89.4 [facility] [id number] [address] 2226 Jun, [facility] [id number] [place] [address] 92228- 6107 Jun, [facility] [id number] [place] [address] 09213- 3785 Jun, [facility] [id number] [place] [address] 69994- 7740 Jun, [facility] [id number] [place] [address] 22377- 7404 Jun, Lumbar neuritis M54.16 [facility] [id number] [place] [address] 12161- 3971 May, [facility] [id number] [place] [address] 14324- 0810 May, [facility] [id number] [place] [address] 34196- 2138 May, Encounter for therapeutic drug level monitoring Z51.81 ; Encounter for immunization Z23 and Chronic pain syndrome G89.4 [facility] [id number] [place] [address] 39483- 5548 May, Lumbar neuritis M54.16 [facility] [id number] [place] [address] 06222- 2303 May, [facility] [id number] [place] [address] 87941- 6050 Apr, Lumbar neuritis M54.16 [facility] [id number] [place] [address] 13742- 0872 Apr, [facility] [id number] [place] [address] 29501- 7076 Mar, Lumbar neuritis M54.16 [facility] [id number] [place] [address] 95210- 1700 Mar, [facility] [id number] [place] [address] 45868- 9400 08 Mar, 2017 [facility] [id number] [place] [address] 52664- 2966 Feb, Lumbar neuritis M54.16 [facility] [address] [facility] [id number] [place] [address] 09576- 5456 18 Feb, 2017 Lumbar neuritis M54.16 [facility] [id number] [place] [address] 62582- 8465 16 Feb, 2017 [facility] [id number] [place] [address] 02329- 8506 Feb, [facility] [id number] [place] [address] 84521- 5556 25 Jan, 2017 [facility] [id number] [place] [address] 33128- 3428 22 Jan, 2017 Peroneal tendonitis of left lower extremity M76.72 [facility] [id number] [place] [address] 64943- 2606 20 Jan, 2017 Lumbar neuritis M54.16 [facility] [id number] [place] [address] 09863- 3253 12 Jan, 2017 [facility] [id number] [place] [address] 46820- 1274 Dec, Lumbar neuritis M54.16 [facility] [id number] [place] [address] 54621- 6875 Dec, [facility] [id number] [place] [address] 25032- 2547 Dec, Pain in right knee M25.561 ; Lumbar neuritis M54.16 and Cervical neuritis M54.12 [facility] [id number] [place] [address] 57844- 7656 14 Dec, 2016 [facility] [id number] [place] [address] 59129- 9893 Dec, [facility] [id number] [place] [address] 48366- 4187 Nov, Lumbar neuritis M54.16 [facility] [id number] [place] [address] 29258- 8326 Nov, Bilateral primary osteoarthritis of knee M17.0 [facility] [id number] [place] [address] 47488- 5313 Nov, [facility] [id number] [place] [address] 92234- 1817 Nov, Bronchitis J40 and Plantar fasciitis M72.2 [facility] [address] 58943- 9186 Nov, [facility] [id number] [place] [address] 25533- 9239 Oct, Lumbar neuritis M54.16 [facility] [id number] [place] [address] 48331- 5915 Oct, Lumbar neuritis M54.16 [facility] [address] 32421- 0642 Oct, Lumbar neuritis M54.16 [facility] [id number] [place] [address] 34294- 8993 Oct, Plantar fasciitis M72.2 and Pain in right knee M25.561 [facility] [id number] [place] [address] 51190- 4613 16 Oct, 2016 Lumbar neuritis M54.16 ; Cervical neuritis M54.12 ; Other specified abdominal hernia without obstruction or gangrene K45.8 ; Heel spur, left M77.32 ; Plantar fasciitis M72.2 and Pain in right knee M25.561 [facility] [id number] [place] [address] 87387- 1340 13 Oct, 2016 [facility] [address] 04070- 4219 14 Aug, 2014 [facility] [place] [facility] [address] [id number] [place] [address]- 1723 13 Aug, 2014 [facility] [place] [facility] [address] [id number] [place] [address]- 1203 Apr, [facility] [place] [facility] [address] [id number] [place] [address]- 0668 Apr, [facility] [place] [facility] [address] [id number] [place] [address]- 4020 Mar, [facility] [place] [facility] [address] [id number] [place] [address]- 4265 Mar, [facility] [place] [facility] [address] [id number] [place] [address]- 1665 Feb, [facility] [place] [facility] [address] [id number] [place] [address]- 1886 Feb, [facility] [place] [facility] [address] [id number] [address]- 1110 Feb, [facility] [place] [facility] [address] [id number] [place] [address]- 1172 Feb, [facility] [place] [facility] [address] [id number], [place] [address]- 2145 Feb, [facility] [place] [facility] [address] [id number], [place] [address]- 9402 Feb, [facility] [place] [facility] [address] [id number], [place] [address]- 2523 Feb, [facility] [place] [facility] [address] [id number] [place] 0877 Feb, [facility] [place] [facility] [address] [id number], [place] [address]- 0675 Jan, [facility] [place] [facility] [address] [id number] [place] [address]- 8408 30 Jan, 2014 [facility] [place] [facility] [address] [id number] [place] [address] 2546 30 Sep, 2013 [facility] [place] [facility] [address] [id number] [place] [address] 2546 30 Sep, 2013 [facility] [place] [facility] [address] [id number] [place] [address] 2546 30 Sep, 2013 [facility] [place] [facility] [address] [id number] [place] [address] 2546 30 Sep, 2013 [facility] [place] [facility] [address] [id number] [place] [address] 2546 26 Sep, 2013 [facility] [place] [facility] [address] [id number] [place] [address] 2541 26 Sep, 2013 [facility] [place] [facility] [address] [id number] [place] [address]- 2548 22 Sep, 2013 [facility] [place] [facility] [address] [id number] [place] [address] 2540 22 Sep, 2013 [facility] [place] [facility] [address] [id number] [place] [address]- 2548 16 Sep, 2013 [facility] [place] [facility] [address] [id number] [place] [address] 2546 16 Sep, 2013 [facility] [place] [facility] [address] [id number] [place] [address] 2543 16 Sep, 2013 [facility] [place] [facility] [address] [id number] [place] [address] 2546 16 Sep, 2013 [facility] [place] [facility] [address] [id number] [place] [address] 2544 12 Sep, 2013 [facility] [place] [facility] [address] [id number] [place] [address] 2546 12 Sep, 2013 [facility] [place] [facility] [address] [id number] [place] [address] 2546 12 Sep, 2013 [facility] [place] [facility] [address] [id number] [place] [address] 5585 12 Sep, 2013 [facility] [place] [facility] [address] [id number] [place] [address]- 7378 Jan, 2013 [facility] [place] [facility] [address] [id number] [place] [address]- 8257 Jan, 2013 [facility] [place] [facility] [address] [id number] [place] [address]- 4552 Jan, 2013 [facility] [place] [facility] [address] [id number] [place] [address]- 4472 Jan, 2013 [facility] [place] [facility] [address] [id number] [place] [address]- 8588 Jan, 2013 [facility] [place] [facility] [address] [id number] [place] [address]- 4917 Jan, [facility] [place] [facility] [address] [id number] [place] [address]- 5216 Dec, [facility] [place] [facility] [address] [id number] [place] [address]- 9682 Dec, [facility] [place] [facility] [address] [id number] [place] [address]- 3791 Dec, [facility] [place] [facility] [address] [id number] [place] [address]- 3403 Dec, [facility] [place] [facility] [address] [id number] [place] [address]- 3271 Dec, [facility] [place] [facility] [address] [id number] [place] [address]- 8005 Dec, [facility] [place] [facility] [address] [id number] [place] [address]- 4651 Dec, [facility] [place] [facility] [address] [id number] [place] [address]- 8176 Dec, [facility] [place] [facility] [address] [id number] [place] [address]- 6978 Dec, [facility] [place] [facility] [address] [id number] [place] [address]- 8122 Dec, [facility] [place] [facility] [address] [id number] [place] [address]- 8900 Dec, [facility] [place] [facility] [address] [id number] [place] [address]- 2793 Dec, [facility] [place] [facility] [address] [id number] [place] [address]- 9819 Dec, [facility] [place] [facility] [address] [id number] [place] [address]- 6000 Dec, [facility] [place] [facility] [address] [id number] [place] [address]- 5687 Dec, [facility] [place] [facility] [address] [id number] [place] [address]- 8829 Dec, [facility] [place] [facility] [address] [id number] [place] [address]- 2864 Dec, [facility] [place] [facility] [address] [id number] [place] [address]- 2108 Dec, [facility] [place] [facility] [address] [id number] [place] [address]- 1765 Dec, [facility] [place] [facility] [address] [id number] [place] [address]- 2803 Nov, [facility] [place] [facility] [address] [id number] [place] [address]- 0433 Nov, [facility] [place] [facility] [address] [id number] [place] [address]- 7241 Nov, [facility] [place] [facility] [address] [id number] [place] [address]- 7163 Nov, [facility] [place] [facility] [address] [id number] [place] [address]- 8957 Nov, [facility] [place] [facility] [address] [id number] [place] [address]- 2666 Nov, [facility] [place] [facility] [address] [id number], [place] [address]- 2616 Nov, [facility] [id number] [address]- 0599 Nov, [facility] [id number] [address]- 9047 Nov, [facility] [address], [place] [address]- 1194 Nov, [facility] [address], [place] [address]- 3231 Nov, [facility] [address], [place] [address]- 2156 Oct, [facility] [address], [place] [address]- 9709 Oct, [facility] [address], [place] [address]- 8504 Oct, [facility] [id number] [address]- 4179 Apr, IMMUNIZATIONS No Known Immunizations SOCIAL HISTORY Never Assessed REASON FOR VISIT Sivan MALDONADO f/u fro mouth swelling and rash on the back. PT was seen there 10/20/2017 -John BAUTISTA PLAN OF CARE VITAL SIGNS Height 70 in 2017-10-21 Weight 209.6 lbs 2017-10-21 Temperature 98.8 degrees Fahrenheit 2017-10-21 Heart Rate 86 bpm 2017-10-21 Respiratory Rate 18 2017-10-21 Oximetry on room air:92 % 2017-10-21 BMI 30.07 kg/m2 2017-10-21 Blood pressure systolic 142 mmHg 2017-10-21 Blood pressure diastolic 84 mmHg 2017-10-21 MEDICATIONS Medication Instructions Dosage Frequency Start Date End Date Duration Status Prevacid 30 mg Orally Once a day 1 capsule 24h Dec, 30 days Active Voltaren 1 % apply 1g to affected area 2 times a day Transdermal Active Famotidine 20 mg by oral route 2 times a day 1 tablet 12h Oct, Active Metoprolol Tartrate 100 mg Orally Twice a day 1 tablet with food 12h Oct 30 day(s) Active Cetirizine HCl 10 mg by oral route Once a day 1 tablet 24h Active Tiotropium Krakow-Olodaterol 2.5-2.5 MCG/ACT Inhalation Once a day 2 puffs 24h Active Aspir-81 Active MDP Multidose 14 Oct, 2017 Active Hydrocodone-Acetaminophen 10-325 MG Orally 2 times a day 1 tablet as needed 12h September, 28 days Active Morphine Sulfate ER 15 mg/8 hr Orally Once a day in am 1 tablet Aug, 14 days Not-Taking Cymbalta 30 MG Orally Twice a day 1 capsule 12h Not-Taking Lipitor 80 mg 1 tablet by Oral route 1 time per day Active Gabapentin 300 MG TAKE 2 CAPSULES BY MOUTH THREE TIMES DAILY 30 Not-Taking ProAir HFA 108 (90 Base) MCG/ACT INHALE 2 PUFFS INTO LUNGS EVERY FOUR HOURS NEEDED FOR SHORTNESS OF BREATH Active Flonase 50 MCG/ACT Nasally Once a day 1 spray in each nostril 24h 30 days Active Metoprolol Succinate by oral route 2 times a day 1 tablet 12h Active Norvasc 10 mg 1 tablet Once a day Orally Active Aspirin 81 mg 1 tablet by Oral route 1 time per day Dec, Not-Taking RESULTS No Results PROCEDURES No Known procedures [...]
--- OUTSIDE RECORDS SUMMARY | 2018-04-14 06:02 | XMS REPORT ---
Author Author PREETHI YIN Organization [facility] Address [address] [place] [address] Care Team Providers Care Medical Asst Name Role Phone PREETHI YIN Unavailable PROBLEMS Type Condition ICD9-CM Code HLA38-VJ Code Onset Dates Condition Status SNOMED Code Problem Anxiety disorder, unspecified F41.9 Active 853889278 Problem Chronic pain syndrome G89.4 Active 697390503 Problem Bilateral primary osteoarthritis of knee M17.0 Active 993034809 ALLERGIES Substance Reaction Event Type Date Status Dilaudid dizziness Drug Allergy September, Active ENCOUNTERS Encounter Location Date Diagnosis [facility] [id number] [place] [address] 54196- 1521 Dec, [facility] [id number] [place] [address] 04997- 6855 Nov, Chronic pain syndrome G89.4 [facility] [id number] [place] [address] 59993- 7446 Nov, [facility] [id number] [place] [address] 52996- 2777 Oct, [facility] [id number] [place] [address] 62503- 0860 Oct, [facility] [id number] [place] [address] 74940- 9358 Oct, [facility] [id number] [place] [address] 58290- 1510 Oct, Allergic reaction to drug, subsequent encounter T78.40XD [facility] [id number] [place] [address] 91846- 5973 September, [facility] [id number] [place] [address] 39088- 2573 September, [facility] [id number], [place] [address] 7314 September, Low back pain radiating to lower extremity M54.5 [facility] [id number], [place] [address] 0166 Aug, [facility] [id number], [place] [address] 4583 Aug, [facility] [id number], [place] [address] 3585 Aug, [facility] [id number] [place] [address] 03493- 3299 Aug, [facility] [id number], [place] [address] 9634 Aug, Incisional infection, initial encounter T81.4XXA [facility] [id number], [place] [address] 3716 Aug, [facility] [id number], [place] [address] 5121 Jul, [facility] [id number], [place] [address]- 9848 Jul, [facility] [id number] [address] 4282 Jul, Chronic pain syndrome G89.4 [facility] [id number], [place] [address] 8405 Jul, Pre-op evaluation Z01.818 [facility] [id number] [place] [address] 07910- 7626 Jul, [facility] [id number], [place] [address] 8125 Jun, Anxiety disorder, unspecified F41.9 and Chronic pain syndrome G89.4 [facility] [id number] [address] 1525 Jun, [facility] [id number] [place] [address] 57734- 1291 Jun, [facility] [id number] [place] [address] 14191- 5848 Jun, [facility] [id number] [place] [address] 14821- 6530 Jun, [facility] [id number] [place] [address] 62400- 4993 Jun, Lumbar neuritis M54.16 [facility] [id number] [place] [address] 56182- 2322 May, [facility] [id number] [place] [address] 30305- 2189 May, [facility] [id number] [place] [address] 80417- 3056 May, Encounter for therapeutic drug level monitoring Z51.81 ; Encounter for immunization Z23 and Chronic pain syndrome G89.4 [facility] [id number] [place] [address] 27850- 7961 May, Lumbar neuritis M54.16 [facility] [id number] [place] [address] 68913- 2742 May, [facility] [id number] [place] [address] 13690- 4089 Apr, Lumbar neuritis M54.16 [facility] [id number] [place] [address] 98977- 4175 Apr, [facility] [id number] [place] [address] 22959- 1048 Mar, Lumbar neuritis M54.16 [facility] [id number] [place] [address] 96577- 1738 Mar, [facility] [id number] [place] [address] 68629- 8181 08 Mar, 2017 [facility] [id number] [place] [address] 51681- 6356 Feb, Lumbar neuritis M54.16 [facility] [address] [facility] [id number] [place] [address] 11386- 6266 18 Feb, 2017 Lumbar neuritis M54.16 [facility] [id number] [place] [address] 48162- 3886 16 Feb, 2017 [facility] [id number] [place] [address] 48802- 6464 Feb, [facility] [id number] [place] [address] 84332- 7366 25 Jan, 2017 [facility] [id number] [place] [address] 09735- 2503 22 Jan, 2017 Peroneal tendonitis of left lower extremity M76.72 [facility] [id number] [place] [address] 90535- 5698 20 Jan, 2017 Lumbar neuritis M54.16 [facility] [id number] [place] [address] 07512- 1048 12 Jan, 2017 [facility] [id number] [place] [address] 09207- 9331 Dec, Lumbar neuritis M54.16 [facility] [id number] [place] [address] 48243- 3051 Dec, [facility] [id number] [place] [address] 52827- 2542 Dec, Pain in right knee M25.561 ; Lumbar neuritis M54.16 and Cervical neuritis M54.12 [facility] [id number] [place] [address] 12203- 9226 14 Dec, 2016 [facility] [id number] [place] [address] 69872- 2221 Dec, [facility] [id number] [place] [address] 37798- 3798 Nov, Lumbar neuritis M54.16 [facility] [id number] [place] [address] 01691- 0249 Nov, Bilateral primary osteoarthritis of knee M17.0 [facility] [id number] [place] [address] 63197- 7366 Nov, [facility] [id number] [place] [address] 47572- 2568 Nov, Bronchitis J40 and Plantar fasciitis M72.2 [facility] [address] 51277- 4135 Nov, [facility] [id number] [place] [address] 71502- 3267 Oct, Lumbar neuritis M54.16 [facility] [id number] [place] [address] 99252- 1632 Oct, Lumbar neuritis M54.16 [facility] [address] 74169- 7298 Oct, Lumbar neuritis M54.16 [facility] [id number] [place] [address] 38348- 0845 Oct, Plantar fasciitis M72.2 and Pain in right knee M25.561 [facility] [id number] [place] [address] 76745- 4810 16 Oct, 2016 Lumbar neuritis M54.16 ; Cervical neuritis M54.12 ; Other specified abdominal hernia without obstruction or gangrene K45.8 ; Heel spur, left M77.32 ; Plantar fasciitis M72.2 and Pain in right knee M25.561 [facility] [id number] [place] [address] 05566- 8831 13 Oct, 2016 [facility] [address] 58948- 7577 14 Aug, 2014 [facility] [place] [facility] [address] [id number] [place] [address]- 6067 13 Aug, 2014 [facility] [place] [facility] [address] [id number] [place] [address]- 9614 Apr, [facility] [place] [facility] [address] [id number] [place] [address]- 5743 Apr, [facility] [place] [facility] [address] [id number] [place] [address]- 1473 Mar, [facility] [place] [facility] [address] [id number] [place] [address]- 9923 Mar, [facility] [place] [facility] [address] [id number] [place] [address]- 5347 Feb, [facility] [place] [facility] [address] [id number] [place] [address]- 2847 Feb, [facility] [place] [facility] [address] [id number], [place] [address]- 4211 Feb, [facility] [place] [facility] [address] [id number] [place] [address]- 9653 Feb, [facility] [place] [facility] [address] [id number], [place] [address]- 2853 Feb, [facility] [place] [facility] [address] [id number], [place] [address]- 0970 Feb, [facility] [place] [facility] [address] [id number], [place] [address]- 1919 Feb, [facility] [place] [facility] [address] [id number] [place] 8982 Feb, [facility] [place] [facility] [address] [id number], [place] [address]- 6175 Jan, [facility] [place] [facility] [address] [id number] [place] [address]- 2345 30 Jan, 2014 [facility] [place] [facility] [address] [id number] [place] [address] 2546 30 Sep, 2013 [facility] [place] [facility] [address] [id number] [place] [address] 2546 30 Sep, 2013 [facility] [place] [facility] [address] [id number] [place] [address] 2546 30 Sep, 2013 [facility] [place] [facility] [address] [id number] [place] [address] 2546 30 Sep, 2013 [facility] [place] [facility] [address] [id number] [place] [address] 2546 26 Sep, 2013 [facility] [place] [facility] [address] [id number] [place] [address] 254 26 Sep, 2013 [facility] [place] [facility] [address] [id number] [place] [address]- 2547 22 Sep, 2013 [facility] [place] [facility] [address] [id number] [place] [address] 2543 22 Sep, 2013 [facility] [place] [facility] [address] [id number] [place] [address]- 2548 16 Sep, 2013 [facility] [place] [facility] [address] [id number] [place] [address] 2546 16 Sep, 2013 [facility] [place] [facility] [address] [id number] [place] [address] 2541 16 Sep, 2013 [facility] [place] [facility] [address] [id number] [place] [address] 2546 16 Sep, 2013 [facility] [place] [facility] [address] [id number] [place] [address] 2541 12 Sep, 2013 [facility] [place] [facility] [address] [id number] [place] [address] 2546 12 Sep, 2013 [facility] [place] [facility] [address] [id number] [place] [address] 2546 12 Sep, 2013 [facility] [place] [facility] [address] [id number] [place] [address] 1705 12 Sep, 2013 [facility] [place] [facility] [address] [id number] [place] [address]- 4304 Jan, 2013 [facility] [place] [facility] [address] [id number] [place] [address]- 0598 Jan, 2013 [facility] [place] [facility] [address] [id number] [place] [address]- 1364 Jan, 2013 [facility] [place] [facility] [address] [id number] [place] [address]- 0177 Jan, 2013 [facility] [place] [facility] [address] [id number] [place] [address]- 7085 Jan, 2013 [facility] [place] [facility] [address] [id number] [place] [address]- 6398 Jan, [facility] [place] [facility] [address] [id number] [place] [address]- 2437 Dec, [facility] [place] [facility] [address] [id number] [place] [address]- 6396 Dec, [facility] [place] [facility] [address] [id number] [place] [address]- 2938 Dec, [facility] [place] [facility] [address] [id number] [place] [address]- 5395 Dec, [facility] [place] [facility] [address] [id number] [place] [address]- 5424 Dec, [facility] [place] [facility] [address] [id number] [place] [address]- 8305 Dec, [facility] [place] [facility] [address] [id number] [place] [address]- 5302 Dec, [facility] [place] [facility] [address] [id number] [place] [address]- 8410 Dec, [facility] [place] [facility] [address] [id number] [place] [address]- 8494 Dec, [facility] [place] [facility] [address] [id number] [place] [address]- 6433 Dec, [facility] [place] [facility] [address] [id number] [place] [address]- 2040 Dec, [facility] [place] [facility] [address] [id number] [place] [address]- 4143 Dec, [facility] [place] [facility] [address] [id number] [place] [address]- 6724 Dec, [facility] [place] [facility] [address] [id number] [place] [address]- 3795 Dec, [facility] [place] [facility] [address] [id number] [place] [address]- 1584 Dec, [facility] [place] [facility] [address] [id number] [place] [address]- 8576 Dec, [facility] [place] [facility] [address] [id number] [place] [address]- 8795 Dec, [facility] [place] [facility] [address] [id number] [place] [address]- 2794 Dec, [facility] [place] [facility] [address] [id number] [place] [address]- 8774 Dec, [facility] [place] [facility] [address] [id number] [place] [address]- 4389 Nov, [facility] [place] [facility] [address] [id number] [place] [address]- 1545 Nov, [facility] [place] [facility] [address] [id number] [place] [address]- 5795 Nov, [facility] [place] [facility] [address] [id number] [place] [address]- 0808 Nov, [facility] [place] [facility] [address] [id number] [place] [address]- 5634 Nov, [facility] [place] [facility] [address] [id number] [place] [address]- 5812 Nov, [facility] [place] [facility] [address] [id number], [place] [address]- 3966 Nov, [facility] [id number] [address]- 1561 Nov, [facility] [id number], [place] [address]- 5839 Nov, [facility] [id number], [place] [address]- 4148 Nov, [facility] [id number] 9730 Nov, [facility] [id number] 1841 Oct, [facility] [id number], [place] [address]- 9852 Oct, [facility] [id number], [place] [address]- 0838 Oct, [facility] [id number] [address]- 3296 Apr, IMMUNIZATIONS No Known Immunizations SOCIAL HISTORY Never Assessed REASON FOR VISIT Pt requesting a x-ray [facility], Patient is having chest pain PLAN OF CARE VITAL SIGNS Height 70 in 2017-09-21 Weight 207 lbs 2017-09-21 Temperature 98.6 degrees Fahrenheit 2017-09-21 Heart Rate 70 bpm 2017-09-21 Respiratory Rate 20 2017-09-21 BMI 29.70 kg/m2 2017-09-21 Blood pressure systolic 126 mmHg 2017-09-21 Blood pressure diastolic 78 mmHg 2017-09-21 MEDICATIONS Medication Instructions Dosage Frequency Start Date End Date Duration Status Norvasc 10 mg 1 tablet Once a day Orally Active Voltaren 1 % apply 1g to affected area 2 times a day Transdermal Active Tiotropium [place]-Olodaterol 2.5-2.5 MCG/ACT Inhalation Once a day 2 puffs 24h Active Lipitor 80 mg 1 tablet by Oral route 1 time per day Active Flonase 50 MCG/ACT Nasally Once a day 1 spray in each nostril 24h 30 days Active Cymbalta 30 MG Orally Twice a day 1 capsule 12h Not-Taking Aspirin 81 mg 1 tablet by Oral route 1 time per day Dec, Not-Taking Captopril 25 MG TAKE ONE TABLET BY MOUTH TWICE DAILY 30 Active ProAir HFA 108 (90 Base) MCG/ACT INHALE 2 PUFFS INTO LUNGS EVERY FOUR HOURS NEEDED FOR SHORTNESS OF BREATH Active Atorvastatin Calcium 80 MG TAKE 1 TABLET BY MOUTH DAILY 30 Active Hydrocodone-Acetaminophen 10-325 MG Orally Once a day in pm 1 tablet Aug, 14 days Active Prevacid 30 mg Orally Once a day 1 capsule 24h Dec, 30 days Active Morphine Sulfate ER 15 mg/8 hr Orally Once a day in am 1 tablet Aug, 14 days Active Gabapentin 300 MG TAKE 2 CAPSULES BY MOUTH THREE TIMES DAILY 30 Not-Taking RESULTS Name Result Date Reference Range Xray : Spine, Lumbar 2-3 views (IN HOUSE) 2017-09-21 PROCEDURES Procedure Date Ordered Result Body Site X-RAY EXAM OF LOWER SPINE September 21, 2017 INSTRUCTIONS MEDICATIONS ADMINISTERED No Known Medications [...]
--- OUTSIDE RECORDS SUMMARY | 2018-04-14 06:02 | XMS REPORT ---
Author Author PREETHI YIN Organization [facility] Address [address] [place] [address] Care Team Providers Care Grades 9 12 Tutor Name Role Phone PREETHI YIN Unavailable PROBLEMS Type Condition ICD9-CM Code SFU87-KE Code Onset Dates Condition Status SNOMED Code Problem Anxiety disorder, unspecified F41.9 Active 407904337 Problem Chronic pain syndrome G89.4 Active 568594711 Problem Bilateral primary osteoarthritis of knee M17.0 Active 606870692 ALLERGIES No Information ENCOUNTERS Encounter Location Date Diagnosis [facility] [id number] [place] [address] 55606- 7606 Dec, [facility] [id number] [place] [address] 23709- 8551 Nov, Chronic pain syndrome G89.4 [facility] [id number] [place] [address] 99774- 9748 Nov, [facility] [id number] [place] [address] 16605- 3290 Oct, [facility] [id number] [place] [address] 20867- 2206 Oct, [facility] [id number] [place] [address] 35371- 9972 Oct, [facility] [id number] [place] [address] 32873- 2417 Oct, Allergic reaction to drug, subsequent encounter T78.40XD [facility] [id number] [place] [address] 71610- 5174 September, [facility] [id number] [place] [address] 47286- 0992 September, [facility] [address] [address] 7335 September, Low back pain radiating to lower extremity M54.5 [facility] [address] [address] 6011 Aug, [facility] [address] [address]- 0758 Aug, [facility] [address], [place] [address] 2292 Aug, [facility] [address] [address]- 6288 Aug, [facility] [id number] [place] [address] 63111- 2633 Aug, Incisional infection, initial encounter T81.4XXA [facility] [id number] [place] [address] 40174- 1155 Aug, [facility] [address] [address] 1839 Jul, [facility] [id number] [place] [address] 03393- 3875 Jul, [facility] [address] [address] 7265 Jul, Chronic pain syndrome G89.4 [facility] [address], [place] [address] 8823 Jul, Pre-op evaluation Z01.818 [facility] [address] [address]- 3384 Jul, [facility] [id number] [place] [address] 85364- 6568 Jun, Anxiety disorder, unspecified F41.9 and Chronic pain syndrome G89.4 [facility] [address] [address]- 5471 Jun, [facility] [address] [address]- 9448 Jun, [facility] [id number] [place] [address] 14672- 7449 Jun, [facility] [id number] [place] [address] 78407- 3478 Jun, [facility] [id number] [place] [address] 70660- 3628 Jun, Lumbar neuritis M54.16 [facility] [id number] [place] [address] 14632- 1974 May, [facility] [id number] [place] [address] 49941- 4871 May, [facility] [id number] [place] [address] 94531- 7535 May, Encounter for therapeutic drug level monitoring Z51.81 ; Encounter for immunization Z23 and Chronic pain syndrome G89.4 [facility] [id number] [place] [address] 77424- 3852 May, Lumbar neuritis M54.16 [facility] [id number] [place] [address] 00309- 1685 May, [facility] [id number] [place] [address] 91188- 3144 Apr, Lumbar neuritis M54.16 [facility] [id number] [place] [address] 50993- 3417 Apr, [facility] [id number] [place] [address] 70760- 9288 Mar, Lumbar neuritis M54.16 [facility] [id number] [place] [address] 16265- 5315 08 Mar, 2017 [facility] [id number] [place] [address] 39075- 1551 Mar, [facility] [id number] [place] [address] 64116- 4798 Feb, Lumbar neuritis M54.16 [facility] [id number] [place] [address] 94568- 7040 18 Feb, 2017 Lumbar neuritis M54.16 [facility] [id number] [place] [address] 29979- 8436 16 Feb, 2017 [facility] [id number] [place] [address] 21672- 0442 Feb, [facility] [id number] [place] [address] 60065- 6530 25 Jan, 2017 [facility] [id number] [place] [address] 41481- 7210 22 Jan, 2017 Peroneal tendonitis of left lower extremity M76.72 [facility] [id number] [place] [address] 19350- 8752 Jan, Lumbar neuritis M54.16 [facility] [id number] [place] [address] 89216- 8094 Jan, [facility] [id number] [place] [address] 02481- 9348 Dec, Lumbar neuritis M54.16 [facility] [id number] [place] [address] 99658- 6467 Dec, [facility] [id number] [place] [address] 42729- 6176 Dec, Pain in right knee M25.561 ; Lumbar neuritis M54.16 and Cervical neuritis M54.12 [facility] [id number] [place] [address] 83737- 7379 14 Dec, 2016 [facility] [id number] [place] [address] 36865- 7099 Dec, [facility] [id number] [place] [address] 49310- 0448 Nov, Lumbar neuritis M54.16 [facility] [id number] [place] [address] 98500- 2680 Nov, Bilateral primary osteoarthritis of knee M17.0 [facility] [id number] [place] [address] 68555- 7271 Nov, [facility] [address] 23795- 2089 Nov, Bronchitis J40 and Plantar fasciitis M72.2 [place] [address] 50195- 4559 Nov, [facility] [id number] [place] [address] 23042- 4931 Oct, Lumbar neuritis M54.16 [facility] [address] 72559- 1132 Oct, Lumbar neuritis M54.16 [facility] [id number] [place] [address] 82152- 1065 Oct, Lumbar neuritis M54.16 [facility] [id number] [place] [address] 78498- 6753 Oct, Plantar fasciitis M72.2 and Pain in right knee M25.561 [place] [id number] [place] [address] 95100- 3563 16 Oct, 2016 Lumbar neuritis M54.16 ; Cervical neuritis M54.12 ; Other specified abdominal hernia without obstruction or gangrene K45.8 ; Heel spur, left M77.32 ; Plantar fasciitis M72.2 and Pain in right knee M25.561 [facility] [id number] [place] [address] 16778- 5510 13 Oct, 2016 [facility] [id number] [place] [address] 03510- 0096 14 Aug, 2014 [facility] [place] [facility] [address] [id number] [place] [address]- 9668 13 Aug, 2014 [facility] [place] [facility] [address] [id number] [place] [address]- 2024 Apr, [facility] [place] [facility] [address] [id number] [place] [address]- 0003 Apr, [facility] [place] [facility] [address] [id number] [place] [address]- 2151 Mar, [facility] [place] [facility] [address] [id number] [place] [address]- 3648 Mar, [facility] [place] [facility] [address] [id number] [place] [address]- 6765 Feb, [facility] [place] [facility] [address] [id number] [place] 3631 Feb, [facility] [place] [facility] [address] [id number] [place] [address]- 5617 Feb, [facility] [place] [facility] [address] [id number] [place] [address]- 1952 Feb, [facility] [place] [facility] [address] [id number] [place] [address]- 6835 Feb, [facility] [place] [facility] [address] [facility] [id number] [place] [address]- 0364 Feb, [facility] [place] [facility] [address] [id number] [place] [address]- 1680 Feb, [facility] [place] [facility] [address] [id number] [place] [address]- 9188 Feb, [facility] [place] [facility] [address] [id number] [place] [address]- 4996 30 Jan, 2013 [facility] [place] [facility] [address] [id number] [place] [address]- 4286 30 Jan, 2013 [facility] [place] [facility] [address] [id number] [place] [address]- 2073 30 Sep, 2013 [facility] [place] [facility] [address] [id number] [place] [address] 2541 30 Sep, 2013 [facility] [place] [facility] [address] [id number] [place] [address] 2545 30 Sep, 2013 [facility] [place] [facility] [address] [id number] [place] [address]- 9097 30 Sep, 2013 [facility] [place] [facility] [address] [id number] [place] [address]- 0193 26 Sep, 2013 [facility] [place] [facility] [address] [id number] [place] [address]- 2457 26 Sep, 2013 [facility] [place] [facility] [address] [id number] [place] [address]- 1202 22 Sep, 2013 [facility] [place] [facility] [address] [id number] [place] [address]- 9008 22 Sep, 2013 [facility] [place] [facility] [address] [id number] [place] [address]- 2764 16 Sep, 2013 [facility] [place] [facility] [address] [id number] [place] [address]- 4768 16 Sep, 2013 [facility] [place] [facility] [address] [id number] [place] [address]- 4954 16 Sep, 2013 [facility] [place] [facility] [address] [id number] [place] [address]- 1668 16 Sep, 2013 [facility] [place] [facility] [address] [id number], [place] [address]- 2074 12 Sep, 2013 [facility] [place] [facility] [address] [id number] [place] [address]- 2543 12 Sep, 2013 [facility] [place] [facility] [address] [id number] [place] [address]- 2541 12 Sep, 2013 [facility] [place] [facility] [address] [id number] [place] [address]- 8097 12 Sep, 2013 [facility] [place] [facility] [address] [id number] [place] [address]- 9057 Jan, 2013 [facility] [place] [facility] [address] [id number] [place] [address]- 6841 Jan, 2013 [facility] [place] [facility] [address] [id number] [place] [address]- 1196 Jan, 2013 [facility] [place] [facility] [address] [id number] [place] [address]- 8356 Jan, 2013 [facility] [place] [facility] [address] [id number] [place] [address]- 4807 Jan, 2013 [facility] [place] [facility] [address] [id number] [place] [address]- 0517 Jan, [facility] [place] [facility] [address] [id number] [place] [address]- 1298 Dec, [facility] [place] [facility] [address] [id number] [place] [address]- 5858 Dec, [facility] [place] [facility] [address] [id number] [place] [address]- 6384 Dec, [facility] [place] [facility] [address] [id number] [place] [address]- 9409 Dec, [facility] [place] [facility] [address] [id number] [place] [address]- 6990 Dec, [facility] [place] [facility] [address] [id number] [place] [address]- 2098 Dec, [facility] [place] [facility] [address] [id number] [place] [address]- 7326 Dec, [facility] [place] [facility] [address] [id number] [place] [address]- 1632 Dec, [facility] [place] [facility] [address] [id number] [place] [address]- 2604 Dec, [facility] [place] [facility] [address] [id number] [place] [address]- 2099 Dec, [facility] [place] [facility] [address] [id number] [place] [address]- 4140 Dec, [facility] [place] [facility] [address] [id number] [place] [address]- 6912 Dec, [facility] [place] [facility] [address] [id number] [place] [address]- 7654 Dec, [facility] [place] [facility] [address] [id number] [place] [address]- 4392 Dec, [facility] [place] [facility] [address] [id number] [place] [address]- 7070 Dec, [facility] [place] [facility] [address] [id number] [place] [address]- 6823 Dec, [facility] [place] [facility] [address] [id number] [place] [address]- 1884 Dec, [facility] [place] [facility] [address] [id number] [place] [address]- 3788 Dec, [facility] [place] [facility] [address] [id number] [place] [address]- 9808 Dec, [facility] [place] [facility] [address] [id number] [place] [address]- 0971 Nov, [facility] [place] [facility] [address] [id number] [place] [address]- 2787 Nov, [facility] [place] [facility] [address] [id number] [place] [address]- 7936 Nov, [facility] [place] [facility] [address] [id number] [place] [address]- 8158 Nov, [facility] [place] [facility] [address] [id number] [place] [address]- 8661 Nov, [facility] [place] [facility] [address] [id number] [place] [address]- 8353 Nov, [facility] [place] [facility] [address] [id number], [place] [address]- 1926 Nov, [facility] [address] [facility] [id number] 6434 Nov, [facility] [address] [facility] [id number], [place] [address]- 6620 Nov, [facility] [id number] [address]- 1319 Nov, [facility] [address] [facility] [id number], [place] [address]- 3150 Nov, [facility] [id number] [address]- 1544 Oct, [facility] [address] [place] [address]- 0072 Oct, [facility] [id number] [address]- 8359 Oct, [facility] [id number] [address]- 6971 Apr, IMMUNIZATIONS No Known Immunizations SOCIAL HISTORY Never Assessed REASON FOR VISIT taper #4 09/28/17 PLAN OF CARE VITAL SIGNS MEDICATIONS Medication Instructions Dosage Frequency Start Date End Date Duration Status Hydrocodone-Acetaminophen 10-325 MG Orally 2 times a day 1 tablet as needed 12h 11 Sep, 2017 28 days Active RESULTS No Results [...]
--- OUTSIDE RECORDS SUMMARY | 2018-04-14 06:02 | XMS REPORT ---
Author Author PREETHI YIN Organization [facility] Address [address] [place] [address] Care Team Providers Care Retirement Administrator Name Role Phone PREETHI YIN Unavailable PROBLEMS Type Condition ICD9-CM Code [id number] Code Onset Dates Condition Status SNOMED Code Problem Anxiety disorder, unspecified F41.9 Active 958044305 Problem Chronic pain syndrome G89.4 Active 774945689 Problem Bilateral primary osteoarthritis of knee M17.0 Active [id number] ALLERGIES No Information ENCOUNTERS Encounter Location Date Diagnosis [facility] [id number] [place] [address] 50872- 1340 Dec, [facility] [id number] [place] [address] 47093- 7846 Nov, Chronic pain syndrome G89.4 [facility] [id number] [place] [address] 32420- 2091 Nov, [facility] [id number] [place] [address] 00855- 0677 Oct, [facility] [id number] [place] [address] 87336- 1072 Oct, [facility] [id number] [place] [address] 44855- 2822 Oct, [facility] [id number] [place] [address] 99860- 6738 Oct, Allergic reaction to drug, subsequent encounter T78.40XD [facility] [id number] [place] [address] 13831- 3617 September, [facility] [id number] [place] [address] 16808- 1256 September, [facility] [address] [address] September, Low back pain radiating to lower extremity M54.5 [facility] [address] [address] 1179 Aug, [facility] [address] [address] 1042 Aug, [facility] [address] [address]- 9518 Aug, [facility] [address] [address] 1980 Aug, [facility] [id number] [place] [address] 75281- 0907 Aug, Incisional infection, initial encounter T81.4XXA [facility] [id number] [place] [address] 85710- 1837 Aug, [facility] [address] [address] 6047 Jul, [facility] [id number] [place] [address] 53837- 3612 Jul, [facility] [address] [address] 6111 Jul, Chronic pain syndrome G89.4 [facility] [address] [address] 0259 Jul, Pre-op evaluation Z01.818 [facility] [address] [address] 2771 Jul, [facility] [id number] [place] [address] 27955- 3569 Jun, Anxiety disorder, unspecified F41.9 and Chronic pain syndrome G89.4 [facility] [address] [address] 3906 Jun, [facility] [address] [address]- 8643 Jun, [facility] [id number] [place] [address] 19064- 4326 Jun, [facility] [id number] [place] [address] 58037- 8103 Jun, [facility] [id number] [place] [address] 48268- 9774 Jun, Lumbar neuritis M54.16 [facility] [id number] [place] [address] 14437- 0464 May, [facility] [id number] [place] [address] 73646- 1307 May, [facility] [id number] [place] [address] 54254- 6122 May, Encounter for therapeutic drug level monitoring Z51.81 ; Encounter for immunization Z23 and Chronic pain syndrome G89.4 [facility] [id number] [place] [address] 09499- 5327 May, Lumbar neuritis M54.16 [facility] [id number] [place] [address] 18758- 9455 May, [facility] [id number] [place] [address] 44022- 2183 Apr, Lumbar neuritis M54.16 [facility] [id number] [place] [address] 13469- 2368 Apr, [facility] [id number] [place] [address] 30498- 3648 Mar, Lumbar neuritis M54.16 [facility] [id number] [place] [address] 49261- 4530 08 Mar, 2017 [facility] [id number] [place] [address] 04691- 8366 Mar, [facility] [id number] [place] [address] 09871- 5263 Feb, Lumbar neuritis M54.16 [facility] [id number] [place] [address] 60541- 5298 18 Feb, 2017 Lumbar neuritis M54.16 [facility] [id number] [place] [address] 32196- 2186 16 Feb, 2017 [facility] [id number] [place] [address] 20256- 5580 Feb, [facility] [id number] [place] [address] 91414- 0036 25 Jan, 2017 [facility] [id number] [place] [address] 49411- 6313 22 Jan, 2017 Peroneal tendonitis of left lower extremity M76.72 [facility] [id number] [place] [address] 38788- 5000 Jan, Lumbar neuritis M54.16 [facility] [id number] [place] [address] 28561- 3803 Jan, [facility] [id number] [place] [address] 68469- 2812 Dec, Lumbar neuritis M54.16 [facility] [id number] [place] [address] 45728- 3594 Dec, [facility] [id number] [place] [address] 30954- 2893 Dec, Pain in right knee M25.561 ; Lumbar neuritis M54.16 and Cervical neuritis M54.12 [facility] [id number] [place] [address] 79008- 3756 14 Dec, 2016 [facility] [id number] [place] [address] 59806- 0080 Dec, [facility] [id number] [place] [address] 27550- 8192 Nov, Lumbar neuritis M54.16 [facility] [id number] [place] [address] 24682- 2420 Nov, Bilateral primary osteoarthritis of knee M17.0 [facility] [id number] [place] [address] 20107- 7290 Nov, [facility] [address] 43190- 4659 Nov, Bronchitis J40 and Plantar fasciitis M72.2 [place] [address] 45458- 6737 Nov, [facility] [id number] [place] [address] 62925- 5168 Oct, Lumbar neuritis M54.16 [facility] [address] 34887- 2482 Oct, Lumbar neuritis M54.16 [facility] [id number] [place] [address] 48936- 9036 Oct, Lumbar neuritis M54.16 [facility] [id number] [place] [address] 26504- 4793 Oct, Plantar fasciitis M72.2 and Pain in right knee M25.561 [place] [id number] [place] [address] 76302- 6965 16 Oct, 2016 Lumbar neuritis M54.16 ; Cervical neuritis M54.12 ; Other specified abdominal hernia without obstruction or gangrene K45.8 ; Heel spur, left M77.32 ; Plantar fasciitis M72.2 and Pain in right knee M25.561 [facility] [id number] [place] [address] 66013- 1755 13 Oct, 2016 [facility] [id number] [place] [address] 21337- 1540 14 Aug, 2014 [facility] [place] [facility] [address] [id number] [place] [address]- 0683 13 Aug, 2014 [facility] [place] [facility] [address] [id number] [place] [address]- 9281 Apr, [facility] [place] [facility] [address] [id number] [place] [address]- 8176 Apr, [facility] [place] [facility] [address] [id number] [place] [address]- 6045 Mar, [facility] [place] [facility] [address] [id number] [place] [address]- 5075 Mar, [facility] [place] [facility] [address] [id number] [place] [address]- 9290 Feb, [facility] [place] [facility] [address] [id number] [place] [address]94 Feb, [facility] [place] [facility] [address] [id number] [place] [address]- 6479 Feb, [facility] [place] [facility] [address] [id number] [place] [address]- 7749 Feb, [facility] [place] [facility] [address] [id number] [place] [address]- 1363 Feb, [facility] [place] [facility] [address] [facility] [id number] [place] [address]- 0991 Feb, [facility] [place] [facility] [address] [id number] [place] [address]- 2048 Feb, [facility] [place] [facility] [address] [id number] [place] [address]- 2289 Feb, [facility] [place] [facility] [address] [id number] [place] [address]- 4966 30 Jan, 2013 [facility] [place] [facility] [address] [id number] [place] [address]- 9966 30 Jan, 2013 [facility] [place] [facility] [address] [id number] [place] [address]- 6182 30 Sep, 2013 [facility] [place] [facility] [address] [id number] [place] [address] 2542 30 Sep, 2013 [facility] [place] [facility] [address] [id number] [place] [address] 2545 30 Sep, 2013 [facility] [place] [facility] [address] [id number] [place] [address]- 1562 30 Sep, 2013 [facility] [place] [facility] [address] [id number] [place] [address]- 3468 26 Sep, 2013 [facility] [place] [facility] [address] [id number] [place] [address]- 7174 26 Sep, 2013 [facility] [place] [facility] [address] [id number] [place] [address]- 7583 22 Sep, 2013 [facility] [place] [facility] [address] [id number] [place] [address]- 1362 22 Sep, 2013 [facility] [place] [facility] [address] [id number] [place] [address]- 1187 16 Sep, 2013 [facility] [place] [facility] [address] [id number] [place] [address]- 1351 16 Sep, 2013 [facility] [place] [facility] [address] [id number] [place] [address]- 7479 16 Sep, 2013 [facility] [place] [facility] [address] [id number] [place] [address]- 7710 16 Sep, 2013 [facility] [place] [facility] [address] [id number] [address]- 4032 12 Sep, 2013 [facility] [place] [facility] [address] [id number] [place] [address]- 2542 12 Sep, 2013 [facility] [place] [facility] [address] [id number] [place] [address]- 2545 12 Sep, 2013 [facility] [place] [facility] [address] [id number] [place] [address]- 3639 12 Sep, 2013 [facility] [place] [facility] [address] [id number] [place] [address]- 3115 Jan, 2013 [facility] [place] [facility] [address] [id number] [place] [address]- 4889 Jan, 2013 [facility] [place] [facility] [address] [id number] [place] [address]- 5336 Jan, 2013 [facility] [place] [facility] [address] [id number] [place] [address]- 7262 Jan, 2013 [facility] [place] [facility] [address] [id number] [place] [address]- 9664 Jan, 2013 [facility] [place] [facility] [address] [id number] [place] [address]- 1068 Jan, [facility] [place] [facility] [address] [id number] [place] [address]- 4612 Dec, [facility] [place] [facility] [address] [id number] [place] [address]- 1555 Dec, [facility] [place] [facility] [address] [id number] [place] [address]- 7192 Dec, [facility] [place] [facility] [address] [id number] [place] [address]- 2678 Dec, [facility] [place] [facility] [address] [id number] [place] [address]- 7814 Dec, [facility] [place] [facility] [address] [id number] [place] [address]- 7140 Dec, [facility] [place] [facility] [address] [id number] [place] [address]- 8927 Dec, [facility] [place] [facility] [address] [id number] [place] [address]- 8341 Dec, [facility] [place] [facility] [address] [id number] [place] [address]- 0286 Dec, [facility] [place] [facility] [address] [id number] [place] [address]- 8315 Dec, [facility] [place] [facility] [address] [id number] [place] [address]- 9613 Dec, [facility] [place] [facility] [address] [id number] [place] [address]- 5440 Dec, [facility] [place] [facility] [address] [id number] [place] [address]- 5390 Dec, [facility] [place] [facility] [address] [id number] [place] [address]- 5857 Dec, [facility] [place] [facility] [address] [id number] [place] [address]- 9460 Dec, [facility] [place] [facility] [address] [id number] [place] [address]- 0453 Dec, [facility] [place] [facility] [address] [id number] [place] [address]- 0187 Dec, [facility] [place] [facility] [address] [id number] [place] [address]- 0186 Dec, [facility] [place] [facility] [address] [id number] [place] [address]- 9787 Dec, [facility] [place] [facility] [address] [id number] [place] [address]- 9170 Nov, [facility] [place] [facility] [address] [id number] [place] [address]- 2337 Nov, [facility] [place] [facility] [address] [id number] [place] [address]- 8192 Nov, [facility] [place] [facility] [address] [id number] [place] [address]- 2963 Nov, [facility] [place] [facility] [address] [id number] [place] [address]- 2507 Nov, [facility] [place] [facility] [address] [id number] [place] [address]- 0304 Nov, [facility] [place] [facility] [address] [id number] [address]- 5992 Nov, [facility] [id number] [address]- 6914 Nov, [facility] [address] [facility] [id number] [address]- 2770 Nov, [facility] [id number] [address]- 6743 Nov, [facility] [address] 2869 Nov, [facility] [id number] [address]- 0171 Oct, [facility] [address] [address]- 5651 Oct, [facility] [id number] [address]- 7624 Oct, [facility] [id number] [address]- 0352 Apr, IMMUNIZATIONS No Known Immunizations SOCIAL HISTORY Never Assessed REASON FOR VISIT Controlled Med Refill PLAN OF CARE VITAL SIGNS MEDICATIONS Unknown Medications RESULTS No Results PROCEDURES No Known procedures [...]
--- OUTSIDE RECORDS SUMMARY | 2018-04-14 06:03 | XMS REPORT ---
Author Author PREETHI YIN Organization [facility] Address [address] [place] [address] Care Team Providers Care [employer] Member Name Role Phone PREETHI YIN Unavailable PROBLEMS Type Condition ICD9-CM Code EAN52-AV Code Onset Dates Condition Status SNOMED Code Problem Anxiety disorder, unspecified F41.9 Active 752543372 Problem Chronic pain syndrome G89.4 Active 811117194 Problem Bilateral primary osteoarthritis of knee M17.0 Active 456908351 ALLERGIES No Information ENCOUNTERS Encounter Location Date Diagnosis [facility] [id number] [place] [address] 06709- 0045 Nov, Chronic pain syndrome G89.4 [facility] [id number] [place] [address] 19497- 7080 Nov, [facility] [id number] [place] [address] 99215- 4386 Oct, [facility] [id number] [place] [address] 14684- 1141 Oct, [facility] [id number] [place] [address] 84925- 3960 Oct, [facility] [id number] [place] [address] 83982- 9528 Oct, Allergic reaction to drug, subsequent encounter T78.40XD [facility] [id number] [place] [address] 06851- 7652 September, [facility] [id number] [place] [address] 04680- 6708 September, [facility] [id number] [place] [address] 28792- 9604 September, Low back pain radiating to lower extremity M54.5 [facility] [id number] [place] [address] 1413 Aug, [facility] [address] [address] 6236 Aug, [facility] [address] [address] 3435 Aug, [facility] [address] [address] 5136 Aug, [facility] [address] [address] 1211 Aug, Incisional infection, initial encounter T81.4XXA [facility] [address] [address] 9907 Aug, [facility] [id number] [place] [address] 28588- 0046 Jul, [facility] [address], [place] [address]- 6970 Jul, [facility] [id number] [place] [address] 64402- 3941 Jul, Chronic pain syndrome G89.4 [facility] [address] [address] 5468 Jul, Pre-op evaluation Z01.818 [facility] [address], [place] [address] 5503 Jul, [facility] [address], [place] [address] 3154 Jun, Anxiety disorder, unspecified F41.9 and Chronic pain syndrome G89.4 [facility] [address], [place] [address]- 4614 Jun, [facility] [id number], [place] [address]- 2723 Jun, [facility] [id number] [place] [address] 23167- 1312 Jun, [facility] [id number] [place] [address] 14334- 2656 Jun, [facility] [id number] [place] [address] 19006- 4748 Jun, Lumbar neuritis M54.16 [facility] [id number] [place] [address] 60919- 3404 May, [facility] [id number] [place] [address] 88772- 6375 May, [facility] [id number] [place] [address] 36243- 7673 May, Encounter for therapeutic drug level monitoring Z51.81 ; Encounter for immunization Z23 and Chronic pain syndrome G89.4 [facility] [id number] [place] [address] 58011- 7705 May, Lumbar neuritis M54.16 [facility] [id number] [place] [address] 69366- 9335 May, [facility] [id number] [place] [address] 80069- 5724 Apr, Lumbar neuritis M54.16 [facility] [id number] [place] [address] 73678- 7362 Apr, [facility] [id number] [place] [address] 48774- 2546 Mar, Lumbar neuritis M54.16 [facility] [id number] [place] [address] 95689- 0944 Mar, [facility] [id number] [place] [address] 46858- 9746 Mar, [facility] [id number] [place] [address] 51971- 0849 Feb, Lumbar neuritis M54.16 [facility] [id number] [place] [address] 06922- 2057 18 Feb, 2017 Lumbar neuritis M54.16 [facility] [id number] [place] [address] 18097- 3969 16 Feb, 2017 [facility] [id number] [place] [address] 31371- 0851 Feb, [facility] [id number] [place] [address] 81470- 9780 Jan, [facility] [address] 30430- 0273 22 Jan, 2017 Peroneal tendonitis of left lower extremity M76.72 [facility] [id number] [place] [address] 01775- 6512 20 Jan, 2017 Lumbar neuritis M54.16 [facility] [id number] [place] [address] 04501- 8513 Jan, [facility] [id number] [place] [address] 28666- 4733 Dec, Lumbar neuritis M54.16 [facility] [id number] [place] [address] 84640- 2297 Dec, [facility] [id number] [place] [address] 01788- 8802 Dec, Pain in right knee M25.561 ; Lumbar neuritis M54.16 and Cervical neuritis M54.12 [facility] [id number] [place] [address] 27613- 7523 Dec, [facility] [id number] [place] [address] 66312- 5951 Dec, [facility] [id number] [place] [address] 79772- 7749 Nov, Lumbar neuritis M54.16 [facility] [id number] [place] [address] 15275- 3741 Nov, Bilateral primary osteoarthritis of knee M17.0 [facility] [address] 68988- 0739 Nov, [facility] [address] 57308- 2625 Nov, Bronchitis J40 and Plantar fasciitis M72.2 [facility] [address] 05518- 2136 Nov, [facility] [address] 09204- 7498 Oct, Lumbar neuritis M54.16 [facility] [id number] [place] [address] 90294- 7463 Oct, Lumbar neuritis M54.16 [facility] [address] 15186- 2491 Oct, Lumbar neuritis M54.16 [facility] [id number] [place] [address] 33003- 9632 26 Oct, 2016 Plantar fasciitis M72.2 and Pain in right knee M25.561 [facility] [id number] [place] [address] 66858- 9542 16 Oct, 2016 Lumbar neuritis M54.16 ; Cervical neuritis M54.12 ; Other specified abdominal hernia without obstruction or gangrene K45.8 ; Heel spur, left M77.32 ; Plantar fasciitis M72.2 and Pain in right knee M25.561 [facility] [id number] [place] [address] 56339- 4432 Oct, [facility] [id number] [place] [address] 06038- 7640 Aug, [facility] [id number] [place] [address] 48030- 5606 Aug, [facility] [place] [facility] [address] [id number] [place] [address]- 0857 11 Apr, 2014 [facility] [place] [facility] [address] [id number] [place] [address]- 1129 11 Apr, 2014 [facility] [place] [facility] [address] [id number] [place] [address]- 2225 Mar, [facility] [place] [facility] [address] [id number] [place] [address]- 8536 Mar, [facility] [place] [facility] [address] [id number] [place] [address]- 7600 Feb, [facility] [place] [facility] [address] [id number] [place] [address]- 6773 Feb, [facility] [place] [facility] [address] [id number] [place] [address]- 9458 Feb, [facility] [place] [facility] [address] [id number] [place] [address]- 9656 Feb, [facility] [place] [facility] [address] [id number] [place] [address]- 3760 Feb, [facility] [place] [facility] [address] [id number] [place] [address]- 8188 Feb, [facility] [place] [facility] [address] [facility] [id number] [place] [address]- 2036 Feb, [facility] [place] [facility] [address] [id number] [place] [address]- 3533 Feb, [facility] [place] [facility] [address] [id number] [place] [address]- 6770 30 Jan, 2013 [facility] [place] [facility] [address] [id number] [place] [address]- 4146 30 Jan, 2013 [facility] [place] [facility] [address] [id number] [place] [address]- 7046 30 Jan, 2013 [facility] [place] [facility] [address] [id number] [place] [address]- 5945 30 Sep, 2013 [facility] [place] [facility] [address] [id number] [place] [address] 2544 30 Sep, 2013 [facility] [place] [facility] [address] [id number] [place] [address] 2545 30 Sep, 2013 [facility] [place] [facility] [address] [id number] [place] [address]- 1194 26 Sep, 2013 [facility] [place] [facility] [address] [id number] [place] [address]- 7165 26 Sep, 2013 [facility] [place] [facility] [address] [id number] [place] [address]- 6626 22 Sep, 2013 [facility] [place] [facility] [address] [id number] [place] [address]- 3976 22 Sep, 2013 [facility] [place] [facility] [address] [id number] [place] [address]- 0573 16 Sep, 2013 [facility] [place] [facility] [address] [id number] [place] [address]- 0012 16 Sep, 2013 [facility] [place] [facility] [address] [id number] [place] [address]- 0814 16 Sep, 2013 [facility] [place] [facility] [address] [id number] [place] [address]- 2787 16 Sep, 2013 [facility] [place] [facility] [address] [id number] [place] [address]- 8931 12 Sep, 2013 [facility] [place] [facility] [address] [id number], [place] [address]- 2399 12 Sep, 2013 [facility] [place] [facility] [address] [id number] [place] [address]- 2542 12 Sep, 2013 [facility] [place] [facility] [address] [id number] [place] [address]- 2549 12 Sep, 2013 [facility] [place] [facility] [address] [id number] [place] [address]- 0656 09 Sep, 2013 [facility] [place] [facility] [address] [id number] [place] [address]- 6592 Jan, 2013 [facility] [place] [facility] [address] [id number] [place] [address]- 1552 Jan, 2013 [facility] [place] [facility] [address] [id number] [place] [address]- 7566 Jan, 2013 [facility] [place] [facility] [address] [id number] [place] [address]- 4950 Jan, 2013 [facility] [place] [facility] [address] [id number] [place] [address]- 6112 Jan, 2013 [facility] [place] [facility] [address] [id number] [place] [address]- 5508 Dec, [facility] [place] [facility] [address] [id number] [place] [address]- 2063 Dec, [facility] [place] [facility] [address] [id number] [place] [address]- 5295 Dec, [facility] [place] [facility] [address] [id number] [place] [address]- 4408 Dec, [facility] [place] [facility] [address] [id number] [place] [address]- 3511 Dec, [facility] [place] [facility] [address] [id number] [place] [address]- 4269 Dec, [facility] [place] [facility] [address] [id number] [place] [address]- 3991 Dec, [facility] [place] [facility] [address] [id number] [place] [address]- 2435 Dec, [facility] [place] [facility] [address] [id number] [place] [address]- 3907 Dec, [facility] [place] [facility] [address] [id number] [place] [address]- 9193 Dec, [facility] [place] [facility] [address] [id number] [place] [address]- 0527 Dec, [facility] [place] [facility] [address] [id number] [place] [address]- 6423 Dec, [facility] [place] [facility] [address] [id number] [place] [address]- 8668 Dec, [facility] [place] [facility] [address] [id number] [facility] [place] [address]- 6548 Dec, [facility] [place] [facility] [address] [id number] [place] [address]- 9920 Dec, [facility] [place] [facility] [address] [id number] [place] [address]- 6605 Dec, [facility] [place] [facility] [address] [id number] [place] [address]- 9400 Dec, [facility] [place] [facility] [address] [id number] [place] [address]- 9634 Dec, [facility] [place] [facility] [address] [id number] [place] [address]- 7753 Dec, [facility] [place] [facility] [address] [id number] [place] [address]- 5414 Nov, [facility] [place] [facility] [address] [id number] [place] [address]- 3394 Nov, [facility] [place] [facility] [address] [id number] [place] [address]- 7573 Nov, [facility] [place] [facility] [address] [id number] [place] [address]- 9976 Nov, [facility] [place] [facility] [address] [id number] [place] [address]- 0948 Nov, [facility] [place] [facility] [address] [id number] [place] [address]- 6983 Nov, [facility] [place] [facility] [address] [id number] [place] [address]- 0009 Nov, [facility] [place] [facility] [address] [id number], [place] [address]- 9276 Nov, [facility] [address] [facility] [id number], [place] [address]- 8682 Nov, [facility] [address] [facility] [id number], [place] [address]- 0121 Nov, [facility] [address] [facility] [id number], [place] [address]- 4348 Nov, [facility] [address] [facility] [id number], [place] [address]- 5544 Oct, [facility] [address] [facility] [id number], [place] [address]- 3460 Oct, [facility] [id number] [address]- 1343 Oct, [facility] [address] [facility] [id number], [place] [address]- 5290 Apr, IMMUNIZATIONS No Known Immunizations SOCIAL HISTORY Never Assessed REASON FOR VISIT rx resend PLAN OF CARE VITAL SIGNS MEDICATIONS Medication Instructions Dosage Frequency Start Date End Date Duration Status Morphine Sulfate ER 15 mg/8 hr Orally Once a day in am 1 tablet Aug, 14 days Active Hydrocodone-Acetaminophen 10-325 MG Orally Once a day in pm 1 tablet Aug, 14 days Active RESULTS No Results PROCEDURES No [...]
--- OUTSIDE RECORDS SUMMARY | 2018-04-14 06:03 | XMS REPORT ---
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 Name Role Phone PREETHI YIN Unavailable PROBLEMS Type Condition ICD9-CM Code BVT30-CA Code Onset Dates Condition Status SNOMED Code Problem Anxiety disorder, unspecified F41.9 Active 509043781 Problem Chronic pain syndrome G89.4 Active 333342339 Problem Bilateral primary osteoarthritis of knee M17.0 Active 785311163 ALLERGIES No Information ENCOUNTERS Encounter Location Date Diagnosis [facility] [id number] [place] [address] 31791- 4400 Nov, Chronic pain syndrome G89.4 [facility] [id number] [place] [address] 90937- 0883 Nov, [facility] [id number] [place] [address] 75128- 3336 Oct, [facility] [id number] [place] [address] 67577- 6631 Oct, [facility] [id number] [place] [address] 46142- 0733 Oct, [facility] [id number] [place] [address] 97017- 3047 Oct, Allergic reaction to drug, subsequent encounter T78.40XD [facility] [id number] [place] [address] 47764- 4777 September, [facility] [id number] [place] [address] 69953- 5230 September, [facility] [id number] [place] [address] 90919- 8572 September, Low back pain radiating to lower extremity M54.5 [facility] [id number] [place] [address] 0263 Aug, [facility] [address], [place] [address] 6446 Aug, [facility] [address] [address]- 8412 Aug, [facility] [address] [address]- 9713 Aug, [facility] [address] [address] 0515 Aug, Incisional infection, initial encounter T81.4XXA [facility] [address] [address] 1211 Aug, [facility] [id number] [place] [address] 39811- 0244 Jul, [facility] [address], [place] [address] 3120 Jul, [facility] [id number] [place] [address] 50806- 7590 Jul, Chronic pain syndrome G89.4 [facility] [address], [place] [address] 8015 Jul, Pre-op evaluation Z01.818 [facility] [address], [place] [address]- 9123 Jul, [facility] [id number] [address]- 7362 Jun, Anxiety disorder, unspecified F41.9 and Chronic pain syndrome G89.4 [facility] [address], [place] [address]- 5551 Jun, [facility] [address], [place] [address]- 1791 Jun, [facility] [id number] [place] [address] 35929- 9851 Jun, [facility] [id number] [place] [address] 03088- 8086 Jun, [facility] [id number] [place] [address] 31714- 9262 Jun, Lumbar neuritis M54.16 [facility] [id number] [place] [address] 61003- 7170 May, [facility] [id number] [place] [address] 51486- 2595 May, [facility] [id number] [place] [address] 52125- 0830 May, Encounter for therapeutic drug level monitoring Z51.81 ; Encounter for immunization Z23 and Chronic pain syndrome G89.4 [facility] [id number] [place] [address] 37713- 3456 May, Lumbar neuritis M54.16 [facility] [id number] [place] [address] 85916- 7862 May, [facility] [id number] [place] [address] 98040- 6078 Apr, Lumbar neuritis M54.16 [facility] [id number] [place] [address] 27479- 5781 Apr, [facility] [id number] [place] [address] 05465- 8167 Mar, Lumbar neuritis M54.16 [facility] [id number] [place] [address] 82442- 6370 Mar, [facility] [id number] [place] [address] 10146- 4485 Mar, [facility] [id number] [place] [address] 96728- 8171 Feb, Lumbar neuritis M54.16 [facility] [id number] [place] [address] 17865- 3764 18 Feb, 2017 Lumbar neuritis M54.16 [facility] [id number] [place] [address] 86206- 7274 16 Feb, 2017 [facility] [id number] [place] [address] 68464- 2962 Feb, [facility] [id number] [place] [address] 54128- 2902 Jan, [facility] [address] 42880- 8387 22 Jan, 2017 Peroneal tendonitis of left lower extremity M76.72 [facility] [id number] [place] [address] 28628- 1623 20 Jan, 2017 Lumbar neuritis M54.16 [facility] [id number] [place] [address] 69823- 0554 Jan, [facility] [id number] [place] [address] 83741- 6000 Dec, Lumbar neuritis M54.16 [facility] [id number] [place] [address] 47549- 4114 Dec, [facility] [id number] [place] [address] 59705- 0876 Dec, Pain in right knee M25.561 ; Lumbar neuritis M54.16 and Cervical neuritis M54.12 [facility] [id number] [place] [address] 23108- 9846 Dec, [facility] [id number] [place] [address] 19115- 9654 Dec, [facility] [id number] [place] [address] 09671- 8506 Nov, Lumbar neuritis M54.16 [facility] [id number] [place] [address] 28529- 1792 Nov, Bilateral primary osteoarthritis of knee M17.0 [facility] [address] 41007- 7225 Nov, [facility] [address] 80426- 9045 Nov, Bronchitis J40 and Plantar fasciitis M72.2 [facility] [address] 27184- 3415 Nov, [facility] [address] 54812- 1561 Oct, Lumbar neuritis M54.16 [facility] [id number] [place] [address] 09724- 9970 Oct, Lumbar neuritis M54.16 [facility] [address] 30100- 2743 Oct, Lumbar neuritis M54.16 [facility] [id number] [place] [address] 41377- 1998 26 Oct, 2016 Plantar fasciitis M72.2 and Pain in right knee M25.561 [facility] [id number] [place] [address] 77248- 3986 16 Oct, 2016 Lumbar neuritis M54.16 ; Cervical neuritis M54.12 ; Other specified abdominal hernia without obstruction or gangrene K45.8 ; Heel spur, left M77.32 ; Plantar fasciitis M72.2 and Pain in right knee M25.561 [facility] [id number] [place] [address] 63531- 4056 Oct, [facility] [id number] [place] [address] 66280- 8350 Aug, [facility] [id number] [place] [address] 67923- 9643 Aug, [facility] [place] [facility] [address] [id number] [place] [address]- 0951 11 Apr, 2014 [facility] [place] [facility] [address] [id number] [place] [address]- 1419 11 Apr, 2014 [facility] [place] [facility] [address] [id number] [place] [address]- 7239 Mar, [facility] [place] [facility] [address] [id number] [place] [address]- 7236 Mar, [facility] [place] [facility] [address] [id number] [place] [address]- 7918 Feb, [facility] [place] [facility] [address] [id number] [place] [address]- 1313 Feb, [facility] [place] [facility] [address] [id number] [place] [address]- 7139 Feb, [facility] [place] [facility] [address] [id number] [place] [address]- 5919 Feb, [facility] [place] [facility] [address] [id number] [place] [address]- 3193 Feb, [facility] [place] [facility] [address] [id number] [place] [address]- 9351 Feb, [facility] [place] [facility] [address] [facility] [id number] [place] [address]- 7945 Feb, [facility] [place] [facility] [address] [id number] [place] [address]- 7329 Feb, [facility] [place] [facility] [address] [id number] [place] [address]- 6737 30 Jan, 2013 [facility] [place] [facility] [address] [id number] [place] [address]- 2636 30 Jan, 2013 [facility] [place] [facility] [address] [id number] [place] [address]- 0206 30 Jan, 2013 [facility] [place] [facility] [address] [id number] [place] [address]- 7335 30 Sep, 2013 [facility] [place] [facility] [address] [id number] [place] [address] 2547 30 Sep, 2013 [facility] [place] [facility] [address] [id number] [place] [address] 2541 30 Sep, 2013 [facility] [place] [facility] [address] [id number] [place] [address]- 3810 26 Sep, 2013 [facility] [place] [facility] [address] [id number] [place] [address]- 7682 26 Sep, 2013 [facility] [place] [facility] [address] [id number] [place] [address]- 3194 22 Sep, 2013 [facility] [place] [facility] [address] [id number] [place] [address]- 4917 22 Sep, 2013 [facility] [place] [facility] [address] [id number] [place] [address]- 3913 16 Sep, 2013 [facility] [place] [facility] [address] [id number] [place] [address]- 1820 16 Sep, 2013 [facility] [place] [facility] [address] [id number] [place] [address]- 5014 16 Sep, 2013 [facility] [place] [facility] [address] [id number] [place] [address]- 1268 16 Sep, 2013 [facility] [place] [facility] [address] [id number] [place] [address]- 5838 12 Sep, 2013 [facility] [place] [facility] [address] [id number] [address]- 7958 12 Sep, 2013 [facility] [place] [facility] [address] [id number] [place] [address]- 2543 12 Sep, 2013 [facility] [place] [facility] [address] [id number] [place] [address]- 2542 12 Sep, 2013 [facility] [place] [facility] [address] [id number] [place] [address]- 4259 09 Sep, 2013 [facility] [place] [facility] [address] [id number] [place] [address]- 7954 Jan, 2013 [facility] [place] [facility] [address] [id number] [place] [address]- 8075 Jan, 2013 [facility] [place] [facility] [address] [id number] [place] [address]- 7426 Jan, 2013 [facility] [place] [facility] [address] [id number] [place] [address]- 2495 Jan, 2013 [facility] [place] [facility] [address] [id number] [place] [address]- 0182 Jan, 2013 [facility] [place] [facility] [address] [id number] [place] [address]- 3267 Dec, [facility] [place] [facility] [address] [id number] [place] [address]- 3988 Dec, [facility] [place] [facility] [address] [id number] [place] [address]- 4318 Dec, [facility] [place] [facility] [address] [id number] [place] [address]- 4877 Dec, [facility] [place] [facility] [address] [id number] [place] [address]- 0008 Dec, [facility] [place] [facility] [address] [id number] [place] [address]- 2675 Dec, [facility] [place] [facility] [address] [id number] [place] [address]- 7718 Dec, [facility] [place] [facility] [address] [id number] [place] [address]- 9553 Dec, [facility] [place] [facility] [address] [id number] [place] [address]- 0307 Dec, [facility] [place] [facility] [address] [id number] [place] [address]- 8125 Dec, [facility] [place] [facility] [address] [id number] [place] [address]- 0329 Dec, [facility] [place] [facility] [address] [id number] [place] [address]- 4996 Dec, [facility] [place] [facility] [address] [id number] [place] [address]- 6075 Dec, [facility] [place] [facility] [address] [id number] [facility] [place] [address]- 8356 Dec, [facility] [place] [facility] [address] [id number] [place] [address]- 2259 Dec, [facility] [place] [facility] [address] [id number] [place] [address]- 4425 Dec, [facility] [place] [facility] [address] [id number] [place] [address]- 7212 Dec, [facility] [place] [facility] [address] [id number] [place] [address]- 6583 Dec, [facility] [place] [facility] [address] [id number] [place] [address]- 7889 Dec, [facility] [place] [facility] [address] [id number] [place] [address]- 3585 Nov, [facility] [place] [facility] [address] [id number] [place] [address]- 0417 Nov, [facility] [place] [facility] [address] [id number] [place] [address]- 8824 Nov, [facility] [place] [facility] [address] [id number] [place] [address]- 5270 Nov, [facility] [place] [facility] [address] [id number] [place] [address]- 8064 Nov, [facility] [place] [facility] [address] [id number] [place] [address]- 8101 Nov, [facility] [place] [facility] [address] [id number] [place] [address]- 1671 Nov, [facility] [place] [facility] [address] [id number], [place] [address]- 0556 Nov, [facility] [address] [facility] [id number], [place] [address]- 6914 Nov, [facility] [address] [facility] [id number], [place] [address]- 7103 Nov, [facility] [address] [facility] [id number], [place] [address]- 6908 Nov, [facility] [address] [facility] [id number], [place] [address]- 3646 Oct, [facility] [address] [facility] [id number], [place] [address]- 9693 Oct, [facility] [address] [address]- 3273 Oct, [facility] [id number] [address]- 1290 Apr, IMMUNIZATIONS No Known Immunizations SOCIAL HISTORY Never Assessed REASON FOR VISIT Refill request PLAN OF CARE VITAL SIGNS MEDICATIONS Medication Instructions Dosage Frequency Start Date End Date Duration Status Flonase 50 MCG/ACT Nasally Once a day 1 spray in each nostril 24h 30 days Active RESULTS No Results PROCEDURES [...]
--- OUTSIDE RECORDS SUMMARY | 2018-04-14 06:03 | XMS REPORT ---
Author Author PREETHI YIN Organization [facility] Address [address] [place] [address] Care Team Providers Care Front Sight Attacher Name Role Phone PREETHI YIN Unavailable PROBLEMS Type Condition ICD9-CM Code NBI10-HR Code Onset Dates Condition Status SNOMED Code Problem Anxiety disorder, unspecified F41.9 Active 435721036 Problem Chronic pain syndrome G89.4 Active 443036004 Problem Bilateral primary osteoarthritis of knee M17.0 Active 810869985 ALLERGIES No Information ENCOUNTERS Encounter Location Date Diagnosis [facility] [id number] [place] [address] 64047- 4081 Nov, Chronic pain syndrome G89.4 [facility] [id number] [place] [address] 43322- 0667 Nov, [facility] [id number] [place] [address] 29161- 1665 Oct, [facility] [id number] [place] [address] 64728- 4173 Oct, [facility] [id number] [place] [address] 85738- 5893 Oct, [facility] [id number] [place] [address] 44685- 3181 Oct, Allergic reaction to drug, subsequent encounter T78.40XD [facility] [id number] [place] [address] 75655- 2462 September, [facility] [id number] [place] [address] 58786- 9417 September, [facility] [id number] [place] [address] 79838- 6222 September, Low back pain radiating to lower extremity M54.5 [facility] [id number] [address] 6199 Aug, [facility] [address] [address] 7396 Aug, [facility] [address] [address] 6216 Aug, [facility] [id number] [address]- 7456 Aug, [facility] [address] [address] 7736 Aug, Incisional infection, initial encounter T81.4XXA [facility] [id number] [address] 4884 Aug, [facility] [id number] [place] [address] 45014- 8084 Jul, [facility] [id number] [address]- 7865 Jul, [facility] [id number] [place] [address] 63622- 5041 Jul, Chronic pain syndrome G89.4 [facility] [address] [address] 2876 Jul, Pre-op evaluation Z01.818 [facility] [id number] [address]- 9080 Jul, [facility] [address] [address]- 5208 Jun, Anxiety disorder, unspecified F41.9 and Chronic pain syndrome G89.4 [facility] [address] [address]- 8247 Jun, [facility] [address] [address]- 2787 Jun, [facility] [id number] [place] [address] 01023- 6386 Jun, [facility] [id number] [place] [address] 10662- 0916 Jun, [facility] [id number] [place] [address] 83599- 8296 Jun, Lumbar neuritis M54.16 [facility] [id number] [place] [address] 02759- 5435 May, [facility] [id number] [place] [address] 47091- 7725 May, [facility] [id number] [place] [address] 84302- 9825 May, Encounter for therapeutic drug level monitoring Z51.81 ; Encounter for immunization Z23 and Chronic pain syndrome G89.4 [facility] [id number] [place] [address] 22354- 5397 May, Lumbar neuritis M54.16 [facility] [id number] [place] [address] 79062- 3544 May, [facility] [id number] [place] [address] 66889- 7382 Apr, Lumbar neuritis M54.16 [facility] [id number] [place] [address] 60278- 2723 Apr, [facility] [id number] [place] [address] 60588- 7401 Mar, Lumbar neuritis M54.16 [facility] [id number] [place] [address] 52686- 4725 Mar, [facility] [id number] [place] [address] 95793- 9390 Mar, [facility] [id number] [place] [address] 81580- 5805 Feb, Lumbar neuritis M54.16 [facility] [id number] [place] [address] 29324- 5786 18 Feb, 2017 Lumbar neuritis M54.16 [facility] [id number] [place] [address] 46647- 9365 16 Feb, 2017 [facility] [id number] [place] [address] 38181- 6279 Feb, [facility] [id number] [place] [address] 49841- 1259 Jan, [facility] [address] 02350- 9385 22 Jan, 2017 Peroneal tendonitis of left lower extremity M76.72 [facility] [id number] [place] [address] 28134- 7075 20 Jan, 2017 Lumbar neuritis M54.16 [facility] [id number] [place] [address] 49950- 2387 Jan, [facility] [id number] [place] [address] 60828- 4749 Dec, Lumbar neuritis M54.16 [facility] [id number] [place] [address] 39158- 5735 Dec, [facility] [id number] [place] [address] 51817- 0146 Dec, Pain in right knee M25.561 ; Lumbar neuritis M54.16 and Cervical neuritis M54.12 [facility] [id number] [place] [address] 75870- 9503 Dec, [facility] [id number] [place] [address] 15693- 4079 Dec, [facility] [id number] [place] [address] 31287- 4476 Nov, Lumbar neuritis M54.16 [facility] [id number] [place] [address] 18053- 5235 Nov, Bilateral primary osteoarthritis of knee M17.0 [facility] [address] 51690- 7726 Nov, [facility] [address] 98866- 7633 Nov, Bronchitis J40 and Plantar fasciitis M72.2 [facility] [address] 20941- 0192 Nov, [facility] [address] 00174- 5889 Oct, Lumbar neuritis M54.16 [facility] [id number] [place] [address] 13581- 2337 Oct, Lumbar neuritis M54.16 [facility] [address] 57578- 4503 Oct, Lumbar neuritis M54.16 [facility] [id number] [place] [address] 88305- 1963 26 Oct, 2016 Plantar fasciitis M72.2 and Pain in right knee M25.561 [id number] [place] [address] 50145- 2766 16 Oct, 2016 Lumbar neuritis M54.16 ; Cervical neuritis M54.12 ; Other specified abdominal hernia without obstruction or gangrene K45.8 ; Heel spur, left M77.32 ; Plantar fasciitis M72.2 and Pain in right knee M25.561 [facility] [id number] [place] [address] 60055- 2909 Oct, [facility] [id number] [place] [address] 93655- 9136 Aug, [facility] [id number] [place] [address] 93888- 8358 Aug, [facility] [place] [facility] [address] [id number] [place] [address]- 7496 11 Apr, 2014 [facility] [place] [facility] [address] [id number] [place] [address]- 7292 11 Apr, 2014 [facility] [place] [facility] [address] [id number] [place] [address]- 0048 Mar, [facility] [place] [facility] [address] [id number] [place] [address]- 1073 Mar, [facility] [place] [facility] [address] [id number] [place] [address]- 7919 Feb, [facility] [place] [facility] [address] [id number] [place] [address]- 1744 Feb, [facility] [place] [facility] [address] [id number] [place] [address]- 6872 Feb, [facility] [place] [facility] [address] [id number] [place] [address]- 5520 Feb, [facility] [place] [facility] [address] [id number] [place] [address]- 0089 Feb, [facility] [place] [facility] [address] [id number] [place] [address]- 7991 Feb, [facility] [place] [facility] [address] [facility] [id number] [place] [address]- 8703 Feb, [facility] [place] [facility] [address] [id number] [place] [address]- 7977 Feb, [facility] [place] [facility] [address] [id number] [place] [address]- 7874 30 Jan, 2013 [facility] [place] [facility] [address] [id number] [place] [address]- 9186 30 Jan, 2013 [facility] [place] [facility] [address] [id number] [place] [address]- 2066 30 Jan, 2013 [facility] [place] [facility] [address] [id number] [place] [address]- 3818 30 Sep, 2013 [facility] [place] [facility] [address] [id number] [place] [address] 254 30 Sep, 2013 [facility] [place] [facility] [address] [id number] [place] [address] 2542 30 Sep, 2013 [facility] [place] [facility] [address] [id number] [place] [address]- 5812 26 Sep, 2013 [facility] [place] [facility] [address] [id number] [place] [address]- 4074 26 Sep, 2013 [facility] [place] [facility] [address] [id number] [place] [address]- 4641 22 Sep, 2013 [facility] [place] [facility] [address] [id number] [place] [address]- 1532 22 Sep, 2013 [facility] [place] [facility] [address] [id number] [place] [address]- 0235 16 Sep, 2013 [facility] [place] [facility] [address] [id number] [place] [address]- 6578 16 Sep, 2013 [facility] [place] [facility] [address] [id number] [place] [address]- 6423 16 Sep, 2013 [facility] [place] [facility] [address] [id number] [place] [address]- 4259 16 Sep, 2013 [facility] [place] [facility] [address] [id number] [place] [address]- 8454 12 Sep, 2013 [facility] [place] [facility] [address] [id number] [address]- 7612 12 Sep, 2013 [facility] [place] [facility] [address] [id number] [place] [address]- 2549 12 Sep, 2013 [facility] [place] [facility] [address] [id number] [place] [address]- 2543 12 Sep, 2013 [facility] [place] [facility] [address] [id number] [place] [address]- 4546 09 Sep, 2013 [facility] [place] [facility] [address] [id number] [place] [address]- 0617 Jan, 2013 [facility] [place] [facility] [address] [id number] [place] [address]- 8546 Jan, 2013 [facility] [place] [facility] [address] [id number] [place] [address]- 8336 Jan, 2013 [facility] [place] [facility] [address] [id number] [place] [address]- 9829 Jan, 2013 [facility] [place] [facility] [address] [id number] [place] [address]- 1619 Jan, 2013 [facility] [place] [facility] [address] [id number] [place] [address]- 9626 Dec, [facility] [place] [facility] [address] [id number] [place] [address]- 1993 Dec, [facility] [place] [facility] [address] [id number] [place] [address]- 2779 Dec, [facility] [place] [facility] [address] [id number] [place] [address]- 6854 Dec, [facility] [place] [facility] [address] [id number] [place] [address]- 3512 Dec, [facility] [place] [facility] [address] [id number] [place] [address]- 3620 Dec, [facility] [place] [facility] [address] [id number] [place] [address]- 1632 Dec, [facility] [place] [facility] [address] [id number] [place] [address]- 1847 Dec, [facility] [place] [facility] [address] [id number] [place] [address]- 0928 Dec, [facility] [place] [facility] [address] [id number] [place] [address]- 7120 Dec, [facility] [place] [facility] [address] [id number] [place] [address]- 2635 Dec, [facility] [place] [facility] [address] [id number] [place] [address]- 5085 Dec, [facility] [place] [facility] [address] [id number] [place] [address]- 6026 Dec, [facility] [place] [facility] [address] [id number] [facility] [place] [address]- 9899 Dec, [facility] [place] [facility] [address] [id number] [place] [address]- 4161 Dec, [facility] [place] [facility] [address] [id number] [place] [address]- 7603 Dec, [facility] [place] [facility] [address] [id number] [place] [address]- 0386 Dec, [facility] [place] [facility] [address] [id number] [place] [address]- 7565 Dec, [facility] [place] [facility] [address] [id number] [place] [address]- 9009 Dec, [facility] [place] [facility] [address] [id number] [place] [address]- 2490 Nov, [facility] [place] [facility] [address] [id number] [place] [address]- 6768 Nov, [facility] [place] [facility] [address] [id number] [place] [address]- 9432 Nov, [facility] [place] [facility] [address] [id number] [place] [address]- 7310 Nov, [facility] [place] [facility] [address] [id number] [place] [address]- 1989 Nov, [facility] [place] [facility] [address] [id number] [place] [address]- 5917 Nov, [facility] [place] [facility] [address] [id number] [place] [address]- 4173 Nov, [facility] [place] [facility] [address] [id number], [place] [address]- 1196 Nov, [facility] [address] [facility] [id number], [place] [address]- 6303 Nov, [facility] [address] [facility] [id number], [place] [address]- 2209 Nov, [facility] [address] [facility] [id number], [place] [address]- 6453 Nov, [facility] [address] [facility] [id number], [place] [address]- 7301 Oct, [facility] [address] [facility] [id number], [place] [address]- 0346 Oct, [facility] [address] [id number] [address]- 3998 Oct, [facility] [address] [facility] [id number], [place] [address]- 5976 Apr, IMMUNIZATIONS No Known Immunizations SOCIAL HISTORY Never Assessed REASON FOR VISIT TAPER #3 PLAN OF CARE VITAL SIGNS MEDICATIONS Medication Instructions Dosage Frequency Start Date End Date Duration Status Hydrocodone-Acetaminophen 10-325 MG Orally Once a day in pm 1 tablet Aug, 14 days Active Morphine Sulfate ER 15 mg/8 hr Orally Once a day in am 1 tablet Aug, 14 days Active RESULTS [...]
--- OUTSIDE RECORDS SUMMARY | 2018-04-14 06:04 | XMS REPORT ---
Author Author PREETHI YIN Organization [facility], [place] Address [address] [place] [address] Care Team Providers Care Chyron Operator Name Role Phone PREETHI YIN Unavailable PROBLEMS Type Condition ICD9-CM Code ANH24-KV Code Onset Dates Condition Status SNOMED Code Problem Anxiety disorder, unspecified F41.9 Active 163701644 Problem Chronic pain syndrome G89.4 Active 281028002 Problem Bilateral primary osteoarthritis of knee M17.0 Active 017467356 ALLERGIES Substance Reaction Event Type Date Status Dilaudid dizziness Drug Allergy Aug, Active ENCOUNTERS Encounter Location Date Diagnosis [facility], [place] [id number] [place] [address] 66053- 0528 Nov, Chronic pain syndrome G89.4 [facility], [place] [id number] [place] [address] 91268- 2447 Nov, [facility], [place] [id number] [place] [address] 65715- 2225 Oct, [facility], [place] [id number] [place] [address] 33329- 8196 Oct, [facility], [place] [id number] [place] [address] 23290- 5785 Oct, [facility], [place] [id number] [place] [address] 43821- 6739 Oct, Allergic reaction to drug, subsequent encounter T78.40XD [facility], [place] [address] [address]62- 3248 September, [facility] [place] [id number] [place] [address] 15106- 8661 September, [facility], [place] [id number] [place] [address] 40179- 2795 September, Low back pain radiating to lower extremity M54.5 [facility], [place] [address], [place] [address] 3749 Aug, [facility], [place] [address], [place] [address] 2876 Aug, [facility], [place] [id number] [place] [address] 06202- 3212 Aug, [facility], [place] [id number] [place] [address] 53175- 7594 Aug, [facility], [place] [id number] [place] [address] 12091- 1052 Aug, Incisional infection, initial encounter T81.4XXA [facility], [place] [id number] [place] [address] 38091- 9462 Aug, [facility], [place] [id number] [place] [address] 83985- 9005 Jul, [facility], [place] [address] [place] [address] 40428- 6760 Jul, [facility], [place] [address] [place] [address] 56968- 7359 Jul, Chronic pain syndrome G89.4 [facility], [place] [address], [place] [address] 4634 Jul, Pre-op evaluation Z01.818 [facility], [place] [address], [place] [address] 2047 Jul, [facility], [place] [id number] [place] [address] 39652- 9913 Jun, Anxiety disorder, unspecified F41.9 and Chronic pain syndrome G89.4 [facility], [place] [address], [place] [address]- 7471 Jun, [facility], [place] [id number], [place] [address] 9049 Jun, [facility], [place] [id number] [place] [address] 99806- 2836 Jun, [facility] [place] [id number] [place] [address] 78537- 3206 Jun, [facility], [place] [id number] [place] [address] 54639- 5094 Jun, Lumbar neuritis M54.16 [facility], [place] [id number] [place] [address] 98993- 6057 May, [facility], [place] [id number] [place] [address] 68066- 7470 May, [facility], [place] [address] [place] [address] 86335- 1866 May, Encounter for therapeutic drug level monitoring Z51.81 ; Encounter for immunization Z23 and Chronic pain syndrome G89.4 [facility], [place] [address] [place] [address] 55056- 9959 May, Lumbar neuritis M54.16 [facility], [place] [id number] [place] [address] 55003- 3435 May, [facility], [place] [id number] [place] [address] 70432- 0515 Apr, Lumbar neuritis M54.16 [facility], [place] [address], [place] [address]- 2185 Apr, [facility], [place] [address] [place] [address] 64664- 1810 Mar, Lumbar neuritis M54.16 [facility], [place] [address] [place] [address] 54457- 9520 Mar, [facility] [place] [address] [place] [address] 87940- 7610 Mar, [facility] [place] [id number] [place] [address] 08078- 9077 Feb, Lumbar neuritis M54.16 [facility] [place] [id number] [place] [address] 72100- 7816 18 Feb, 2017 Lumbar neuritis M54.16 [facility] [place] [id number] [place] [address] 54174- 1552 16 Feb, 2017 [facility] [place] [address] 20141- 8763 Feb, [facility] [place] [id number] [place] [address] 00178- 1048 Jan, [facility], [place] [id number] [place] [address] 83795- 5929 22 Jan, 2017 Peroneal tendonitis of left lower extremity M76.72 [facility], [place] [id number] [place] [address] 07436- 4517 Jan, Lumbar neuritis M54.16 [facility] [place] [id number] [place] [address] 69561- 2199 Jan, [facility], [place] [id number] [place] [address] 46246- 4527 Dec, Lumbar neuritis M54.16 [facility], [place] [id number] [place] [address] 40567- 5413 Dec, [facility], [place] [id number] [place] [address] 33784- 2282 Dec, Pain in right knee M25.561 ; Lumbar neuritis M54.16 and Cervical neuritis M54.12 [facility], [place] [id number] [place] [address] 67507- 4954 Dec, [facility], [place] [id number] [place] [address] 40212- 4341 Dec, [facility], [place] [id number] [place] [address] 73231- 8860 Nov, Lumbar neuritis M54.16 [facility], [place] [id number] [place] [address] 32976- 3745 Nov, Bilateral primary osteoarthritis of knee M17.0 [facility], [place] [id number] [place] [address] 60386- 0899 Nov, [facility], [place] [id number] [place] [address] 08543- 2669 Nov, Bronchitis J40 and Plantar fasciitis M72.2 [facility], [place] [id number] [place] [address] 95346- 3578 Nov, [facility], [place] [id number] [place] [address] 52356- 1585 Oct, Lumbar neuritis M54.16 [facility], [place] [id number] [place] [address] 46388- 1087 Oct, Lumbar neuritis M54.16 [facility] [place] [id number] [place] [address] 69409- 4681 Oct, Lumbar neuritis M54.16 [facility], [place] [id number] [place] [address] 01399- 2287 Oct, Plantar fasciitis M72.2 and Pain in right knee M25.561 [facility], [place] [id number] [place] [address] 53650- 8840 Oct, Lumbar neuritis M54.16 ; Cervical neuritis M54.12 ; Other specified abdominal hernia without obstruction or gangrene K45.8 ; Heel spur, left M77.32 ; Plantar fasciitis M72.2 and Pain in right knee M25.561 [facility], [place] [id number] [place] [address] 89850- 3161 13 Oct, 2016 [facility] [place] [id number] [place] [address] 42728- 7946 14 Aug, 2014 [facility], [place] [address] 55716- 6219 Aug, [facility] [place] [facility] [address] [id number] [place] [address]- 8323 Apr, [facility] [place] [facility] [address] [id number] [place] [address]- 3056 Apr, [facility] [place] [facility] [address] [facility] [id number] [place] [address]- 1197 Mar, [facility] [place] [facility] [address] [id number] [place] [address]- 1932 Mar, [facility] [place] [facility] [address] [id number] [place] [address]- 1229 Feb, [facility] [place] [facility] [address] [id number] [place] [address]- 7326 Feb, [facility] [place] [facility] [address] [id number] [place] [address]- 4295 Feb, [facility] [place] [facility] [address] [id number], [place] [address]- 7528 Feb, [facility] [place] [facility] [address] [id number] [place] [address]- 6324 Feb, [facility] [place] [facility] [address] [id number], [place] [address]- 6105 Feb, [facility] [place] [facility] [address] [id number], [place] [address]- 6936 Feb, [facility] [place] [facility] [address] [id number], [place] [address]- 8680 Feb, [facility] [place] [facility] [address] [id number] [place] [address]- 8723 30 Jan, 2014 [facility] [place] [facility] [address] [id number] [place] [address]- 0726 30 Jan, 2014 [facility] [place] [facility] [address] [id number] [place] [address]- 3753 30 Jan, 2014 [facility] [place] [facility] [address] [id number] [place] [address] 2546 30 Sep, 2013 [facility] [place] [facility] [address] [id number] [place] [address] 2546 30 Sep, 2013 [facility] [place] [facility] [address] [id number] [place] [address] 2546 30 Sep, 2013 [facility] [place] [facility] [address] [id number] [place] [address] 2540 26 Sep, 2013 [facility] [place] [facility] [address] [id number] [place] [address] 2546 26 Sep, 2013 [facility] [place] [facility] [address] [id number] [place] [address]- 2807 22 Sep, 2013 [facility] [place] [facility] [address] [id number] [place] [address]- 2544 22 Sep, 2013 [facility] [place] [facility] [address] [id number] [place] [address] 2542 16 Sep, 2013 [facility] [place] [facility] [address] [id number] [place] [address]- 2541 16 Sep, 2013 [facility] [place] [facility] [address] [id number] [place] [address] 2547 16 Sep, 2013 [facility] [place] [facility] [address] [id number] [place] [address] 2543 16 Sep, 2013 [facility] [place] [facility] [address] [id number] [place] [address] 2546 12 Sep, 2013 [facility] [place] [facility] [address] [id number] [place] [address] 2548 12 Sep, 2013 [facility] [place] [facility] [address] [id number] [place] [address] 2546 12 Sep, 2013 [facility] [place] [facility] [address] [id number] [place] [address] 2548 12 Sep, 2013 [facility] [place] [facility] [address] [id number] [place] [address] 0998 09 Sep, 2013 [facility] [place] [facility] [address] [id number] [place] [address]- 3282 Jan, 2013 [facility] [place] [facility] [address] [id number] [place] [address]- 8388 Jan, [facility] [place] [facility] [address] [id number] [place] [address]- 3916 Jan, [facility] [place] [facility] [address] [id number] [place] [address]- 3013 Jan, [facility] [place] [facility] [address] [id number] [place] [address]- 1237 Jan, [facility] [place] [facility] [address] [id number] [place] [address]- 0106 Dec, [facility] [place] [facility] [address] [id number] [place] [address]- 2920 Dec, [facility] [place] [facility] [address] [id number] [place] [address]- 3412 Dec, [facility] [place] [facility] [address] [id number] [place] [address]- 4123 Dec, [facility] [place] [facility] [address] [id number] [place] [address]- 7783 Dec, [facility] [place] [facility] [address] [id number] [place] [address]- 1799 Dec, [facility] [place] [facility] [address] [id number] [place] [address]- 9236 Dec, [facility] [place] [facility] [address] [id number] [place] [address]- 5538 Dec, [facility] [place] [facility] [address] [id number] [place] [address]- 7674 Dec, [facility] [place] [facility] [address] [id number] [place] [address]- 4809 Dec, [facility] [place] [facility] [address] [id number] [place] [address]- 1648 Dec, [facility] [place] [facility] [address] [id number] [place] [address]- 9735 Dec, [facility] [place] [facility] [address] [id number] [place] [address]- 3616 Dec, [facility] [place] [facility] [address] [id number] [place] [address]- 0443 Dec, [facility] [place] [facility] [address] [id number] [place] [address]- 8984 Dec, [facility] [place] [facility] [address] [id number] [place] [address]- 3202 Dec, [facility] [place] [facility] [address] [id number] [place] [address]- 6065 Dec, [facility] [place] [facility] [address] [id number] [place] [address]- 0054 Dec, [facility] [place] [facility] [address] [id number] [place] [address]- 8876 Dec, [facility] [place] [facility] [address] [id number] [place] [address]- 9404 Nov, [facility] [place] [facility] [address] [id number] [place] [address]- 4866 Nov, [facility] [place] [facility] [address] [id number] [place] [address]- 4098 Nov, [facility] [place] [facility] [address] [id number] [place] [address]- 7277 Nov, [facility] [place] [facility] [address] [id number] [place] [address]- 3189 Nov, [facility] [place] [facility] [address] [id number] [place] [address]- 0653 Nov, [facility] [place] [facility] [address] [id number] [place] [address]- 9744 Nov, [facility] [place] [facility] [address] [id number], [place] [address]- 5505 Nov, [facility] [place] [id number] [address]- 4796 Nov, [facility] [place] [address], [place] [address]- 8740 Nov, [facility] [place] [address], [place] [address]- 5456 Nov, [facility] [place] [address], [place] [address]- 2916 Oct, [facility] [place] [address] 2457 Oct, [facility] [place] [address], [place] [address]- 2713 Oct, [facility] [place] [address], [place] [address]- 3835 Apr, IMMUNIZATIONS No Known Immunizations SOCIAL HISTORY Never Assessed REASON FOR VISIT Incision Check PLAN OF CARE VITAL SIGNS Height 70 in 2017-08-27 Weight 205 lbs 2017-08-27 Temperature 98.4 degrees Fahrenheit 2017-08-27 Heart Rate 72 bpm 2017-08-27 Respiratory Rate 20 2017-08-27 BMI 29.41 kg/m2 2017-08-27 Blood pressure systolic 122 mmHg 2017-08-27 Blood pressure diastolic 82 mmHg 2017-08-27 MEDICATIONS Medication Instructions Dosage Frequency Start Date End Date Duration Status ProAir HFA 108 (90 Base) MCG/ACT INHALE 2 PUFFS INTO LUNGS EVERY FOUR HOURS NEEDED FOR SHORTNESS OF BREATH Active Cymbalta 30 MG Orally Twice a day 1 capsule 12h Not-Taking Morphine Sulfate ER 15 mg Orally Once a day in the evening 1 tablet Jul, 14 days Active Captopril 25 MG TAKE ONE TABLET BY MOUTH TWICE DAILY 30 Active Aspirin 81 mg 1 tablet by Oral route 1 time per day Dec, Not-Taking Lipitor 80 mg 1 tablet by Oral route 1 time per day Active Prevacid 30 mg Orally Once a day 1 capsule 24h Dec, 30 days Active Keflex 500 mg Orally 4 times a day 1 capsule 6h 12 Apr, 2018 22 Apr, 2018 10 day(s) Active Gabapentin 300 MG TAKE 2 CAPSULES BY MOUTH THREE TIMES DAILY 30 Not-Taking Tiotropium [place]-Olodaterol 2.5-2.5 MCG/ACT Inhalation Once a day 2 puffs 24h Active Flonase 50 MCG/ACT Nasally Once a day 1 spray in each nostril 24h Active Morphine Sulfate ER 30 MG Orally Once a day in the morning 1 capsule 30 Jul, 2017 14 days Active Voltaren 1 % apply 1g to affected area 2 times a day Transdermal Active Norvasc 10 mg 1 tablet Once a day Orally Active RESULTS No Results PROCEDURES No Known [...]
--- OUTSIDE RECORDS SUMMARY | 2018-04-14 06:04 | XMS REPORT ---
Author Author PREETHI YIN Organization [facility] Address [address] [place] [address] Care Team Providers Care Assembling Motor Builder Name Role Phone PREETHI YIN Unavailable PROBLEMS Type Condition ICD9-CM Code PPQ61-FV Code Onset Dates Condition Status SNOMED Code Problem Anxiety disorder, unspecified F41.9 Active 601971153 Problem Chronic pain syndrome G89.4 Active 176892571 Problem Bilateral primary osteoarthritis of knee M17.0 Active [id number] ALLERGIES No Information ENCOUNTERS Encounter Location Date Diagnosis [facility] [id number] [place] [address] 27945- 0457 Nov, Chronic pain syndrome G89.4 [facility] [id number] [place] [address] 12501- 1142 Nov, [facility] [id number] [place] [address] 63562- 1055 Oct, [facility] [id number] [place] [address] 76531- 0623 Oct, [facility] [id number] [place] [address] 68400- 2347 Oct, [facility] [id number] [place] [address] 94552- 7317 Oct, Allergic reaction to drug, subsequent encounter T78.40XD [facility] [id number] [place] [address] 77268- 2205 September, [facility] [id number] [place] [address] 27667- 0844 September, [facility] [id number] [place] [address] 18689- 9069 September, Low back pain radiating to lower extremity M54.5 [facility] [id number] [place] [address] 2958 Aug, [facility] [address], [place] [address]- 6446 Aug, [facility] [address], [place] [address]- 4667 Aug, [facility] [address], [place] [address]- 2157 Aug, [facility] [address], [place] [address]- 9021 Aug, Incisional infection, initial encounter T81.4XXA [facility] [address], [place] [address]- 7427 Aug, [facility] [id number] [place] [address] 36405- 1917 Jul, [facility] [address] [address]- 9125 Jul, [facility] [id number] [place] [address] 64454- 0000 Jul, Chronic pain syndrome G89.4 [facility] [address], [place] [address]- 9430 Jul, Pre-op evaluation Z01.818 [facility] [address], [place] [address]- 7554 Jul, [facility] [address] [address]- 8155 Jun, Anxiety disorder, unspecified F41.9 and Chronic pain syndrome G89.4 [facility] [address], [place] [address]- 8401 Jun, [facility] [address], [place] [address]- 6114 Jun, [facility] [id number] [place] [address] 77976- 7745 Jun, [facility] [id number] [place] [address] 00486- 3046 Jun, [facility] [id number] [place] [address] 13049- 7812 Jun, Lumbar neuritis M54.16 [facility] [id number] [place] [address] 51947- 1788 May, [facility] [id number] [place] [address] 58644- 6100 May, [facility] [id number] [place] [address] 36987- 3956 May, Encounter for therapeutic drug level monitoring Z51.81 ; Encounter for immunization Z23 and Chronic pain syndrome G89.4 [facility] [id number] [place] [address] 58238- 1757 May, Lumbar neuritis M54.16 [facility] [id number] [place] [address] 20339- 6809 May, [facility] [id number] [place] [address] 44920- 6513 Apr, Lumbar neuritis M54.16 [facility] [id number] [place] [address] 95737- 3483 Apr, [facility] [id number] [place] [address] 45509- 8640 Mar, Lumbar neuritis M54.16 [facility] [id number] [place] [address] 28073- 4561 Mar, [facility] [id number] [place] [address] 28807- 7188 Mar, [facility] [id number] [place] [address] 53542- 8469 Feb, Lumbar neuritis M54.16 [facility] [id number] [place] [address] 58194- 6564 18 Feb, 2017 Lumbar neuritis M54.16 [facility] [id number] [place] [address] 88586- 7076 16 Feb, 2017 [facility] [id number] [place] [address] 39047- 3854 Feb, [facility] [id number] [place] [address] 47014- 0849 Jan, [facility] [address] 21056- 7302 22 Jan, 2017 Peroneal tendonitis of left lower extremity M76.72 [facility] [id number] [place] [address] 41970- 2514 20 Jan, 2017 Lumbar neuritis M54.16 [facility] [id number] [place] [address] 01312- 9971 Jan, [facility] [id number] [place] [address] 76630- 0097 Dec, Lumbar neuritis M54.16 [facility] [id number] [place] [address] 59485- 7160 Dec, [facility] [id number] [place] [address] 15662- 9317 Dec, Pain in right knee M25.561 ; Lumbar neuritis M54.16 and Cervical neuritis M54.12 [facility] [id number] [place] [address] 17379- 1544 Dec, [facility] [id number] [place] [address] 01881- 2400 Dec, [facility] [id number] [place] [address] 01509- 0694 Nov, Lumbar neuritis M54.16 [facility] [id number] [place] [address] 10650- 1418 Nov, Bilateral primary osteoarthritis of knee M17.0 [facility] [address] 75136- 7481 Nov, [facility] [address] 51455- 6956 Nov, Bronchitis J40 and Plantar fasciitis M72.2 [facility] [address] 83717- 9740 Nov, [facility] [address] 62003- 8813 Oct, Lumbar neuritis M54.16 [facility] [id number] [place] [address] 98186- 7528 Oct, Lumbar neuritis M54.16 [facility] [address] 05363- 1432 Oct, Lumbar neuritis M54.16 [facility] [id number] [place] [address] 10403- 6275 26 Oct, 2016 Plantar fasciitis M72.2 and Pain in right knee M25.561 [facility] [id number] [place] [address] 69746- 7166 16 Oct, 2016 Lumbar neuritis M54.16 ; Cervical neuritis M54.12 ; Other specified abdominal hernia without obstruction or gangrene K45.8 ; Heel spur, left M77.32 ; Plantar fasciitis M72.2 and Pain in right knee M25.561 [facility] [id number] [place] [address] 55321- 1723 Oct, [facility] [id number] [place] [address] 36999- 7313 Aug, [facility] [id number] [place] [address] 23958- 7851 Aug, [facility] [place] [facility] [address] [id number] [place] [address]- 8223 11 Apr, 2014 [facility] [place] [facility] [address] [id number] [place] [address]- 1925 11 Apr, 2014 [facility] [place] [facility] [address] [id number] [place] [address]- 9255 Mar, [facility] [place] [facility] [address] [id number] [place] [address]- 3789 Mar, [facility] [place] [facility] [address] [id number] [place] [address]- 0653 Feb, [facility] [place] [facility] [address] [id number] [place] [address]- 6952 Feb, [facility] [place] [facility] [address] [id number] [place] [address]- 4532 Feb, [facility] [place] [facility] [address] [id number] [place] [address]- 8361 Feb, [facility] [place] [facility] [address] [id number] [place] [address]- 9121 Feb, [facility] [place] [facility] [address] [id number] [place] [address]- 8929 Feb, [facility] [place] [facility] [address] [facility] [id number] [place] [address]- 9929 Feb, [facility] [place] [facility] [address] [id number] [place] [address]- 8613 Feb, [facility] [place] [facility] [address] [id number] [place] [address]- 1462 30 Jan, 2013 [facility] [place] [facility] [address] [id number] [place] [address]- 5706 30 Jan, 2013 [facility] [place] [facility] [address] [id number] [place] [address]- 0276 30 Jan, 2013 [facility] [place] [facility] [address] [id number] [place] [address]- 5969 30 Sep, 2013 [facility] [place] [facility] [address] [id number] [place] [address] 2547 30 Sep, 2013 [facility] [place] [facility] [address] [id number] [place] [address] 2542 30 Sep, 2013 [facility] [place] [facility] [address] [id number] [place] [address]- 2759 26 Sep, 2013 [facility] [place] [facility] [address] [id number] [place] [address]- 1822 26 Sep, 2013 [facility] [place] [facility] [address] [id number] [place] [address]- 0140 22 Sep, 2013 [facility] [place] [facility] [address] [id number] [place] [address]- 0328 22 Sep, 2013 [facility] [place] [facility] [address] [id number] [place] [address]- 8755 16 Sep, 2013 [facility] [place] [facility] [address] [id number] [place] [address]- 8194 16 Sep, 2013 [facility] [place] [facility] [address] [id number] [place] [address]- 7147 16 Sep, 2013 [facility] [place] [facility] [address] [id number] [place] [address]- 3837 16 Sep, 2013 [facility] [place] [facility] [address] [id number] [place] [address]- 5460 12 Sep, 2013 [facility] [place] [facility] [address] [id number], [place] [address]- 8412 12 Sep, 2013 [facility] [place] [facility] [address] [id number] [place] [address]- 2548 12 Sep, 2013 [facility] [place] [facility] [address] [id number] [place] [address]- 2549 12 Sep, 2013 [facility] [place] [facility] [address] [id number] [place] [address]- 8809 09 Sep, 2013 [facility] [place] [facility] [address] [id number] [place] [address]- 6818 Jan, 2013 [facility] [place] [facility] [address] [id number] [place] [address]- 0245 Jan, 2013 [facility] [place] [facility] [address] [id number] [place] [address]- 6026 Jan, 2013 [facility] [place] [facility] [address] [id number] [place] [address]- 0548 Jan, 2013 [facility] [place] [facility] [address] [id number] [place] [address]- 0454 Jan, 2013 [facility] [place] [facility] [address] [id number] [place] [address]- 7005 Dec, [facility] [place] [facility] [address] [id number] [place] [address]- 4384 Dec, [facility] [place] [facility] [address] [id number] [place] [address]- 3666 Dec, [facility] [place] [facility] [address] [id number] [place] [address]- 3693 Dec, [facility] [place] [facility] [address] [id number] [place] [address]- 9587 Dec, [facility] [place] [facility] [address] [id number] [place] [address]- 2480 Dec, [facility] [place] [facility] [address] [id number] [place] [address]- 9014 Dec, [facility] [place] [facility] [address] [id number] [place] [address]- 3901 Dec, [facility] [place] [facility] [address] [id number] [place] [address]- 9559 Dec, [facility] [place] [facility] [address] [id number] [place] [address]- 2969 Dec, [facility] [place] [facility] [address] [id number] [place] [address]- 1334 Dec, [facility] [place] [facility] [address] [id number] [place] [address]- 7021 Dec, [facility] [place] [facility] [address] [id number] [place] [address]- 8972 Dec, [facility] [place] [facility] [address] [id number] [facility] [place] [address]- 4336 Dec, [facility] [place] [facility] [address] [id number] [place] [address]- 4375 Dec, [facility] [place] [facility] [address] [id number] [place] [address]- 1885 Dec, [facility] [place] [facility] [address] [id number] [place] [address]- 8568 Dec, [facility] [place] [facility] [address] [id number] [place] [address]- 4520 Dec, [facility] [place] [facility] [address] [id number] [place] [address]- 3866 Dec, [facility] [place] [facility] [address] [id number] [place] [address]- 1284 Nov, [facility] [place] [facility] [address] [id number] [place] [address]- 1516 Nov, [facility] [place] [facility] [address] [id number] [place] [address]- 6238 Nov, [facility] [place] [facility] [address] [id number] [place] [address]- 4290 Nov, [facility] [place] [facility] [address] [id number] [place] [address]- 6564 Nov, [facility] [place] [facility] [address] [id number] [place] [address]- 5312 Nov, [facility] [place] [facility] [address] [id number] [place] [address]- 2760 Nov, [facility] [place] [facility] [address] [id number], [place] [address]- 7936 Nov, [facility] [address] [facility] [id number], [place] [address]- 7116 Nov, [facility] [address] [facility] [id number], [place] [address]- 4946 Nov, [facility] [id number] [address]- 2407 Nov, [facility] [id number] [address]- 7280 Oct, [facility] [id number] [address]- 7361 Oct, [facility] [address] [place] [address]- 9003 Oct, [facility] [id number] [address]- 4825 Apr, IMMUNIZATIONS No Known Immunizations SOCIAL HISTORY Never Assessed REASON FOR VISIT Controlled Med TAPER #2 PLAN OF CARE VITAL SIGNS MEDICATIONS Medication Instructions Dosage Frequency Start Date End Date Duration Status Morphine Sulfate ER 15 mg Orally 2 times a day 1 tablet 12h Aug, 14 days Active RESULTS No Results [...]
--- OUTSIDE RECORDS SUMMARY | 2018-04-14 06:04 | XMS REPORT ---
Author Author ALEX PIERSON Organization [facility] Address [address] [place] [address] Care Team Providers Care Vessel Engineer Name Role Phone ALEX PIERSON Unavailable PROBLEMS Type Condition ICD9-CM Code FYF37-AJ Code Onset Dates Condition Status SNOMED Code Problem Anxiety disorder, unspecified F41.9 Active 374769270 Problem Chronic pain syndrome G89.4 Active [id number] Problem Bilateral primary osteoarthritis of knee M17.0 Active [id number] ALLERGIES No Information ENCOUNTERS Encounter Location Date Diagnosis [facility] [address] [address]- [address] Nov, Chronic pain syndrome G89.4 [facility] [id number] [place] [address] 71032- 2840 Nov, [facility] [id number] [place] [address] 12103- 7328 Oct, [facility] [id number] [place] [address] 66828- 9767 Oct, [facility] [id number] [place] [address] 45132- 0332 Oct, [facility] [id number] [place] [address] 65805- 0826 Oct, Allergic reaction to drug, subsequent encounter T78.40XD [facility] [address] 81457- 6287 September, [facility] [id number] [place] [address] 58592- 5260 September, [facility] [address] [address]- 2534 September, Low back pain radiating to lower extremity M54.5 [facility] [address], [place] [address] Aug, [facility] [address] [place] [address]- 0432 Aug, [facility] [address], [place] [address]- 8355 Aug, [facility] [id number] [place] [address] 07582- 2658 Aug, [facility] [id number] [place] [address] 71297- 1543 Aug, Incisional infection, initial encounter T81.4XXA [facility] [id number] [place] [address] 16870- 2484 Aug, [facility] [id number] [place] [address] 62871- 2038 Jul, [facility] [id number] [place] [address] 23484- 7212 Jul, [facility] [id number] [place] [address] 62027- 9115 Jul, Chronic pain syndrome G89.4 [facility] [address], [place] [address] 6518 Jul, Pre-op evaluation Z01.818 [facility] [address], [place] [address]- 7015 Jul, [facility] [address] [address]- 2230 Jun, Anxiety disorder, unspecified F41.9 and Chronic pain syndrome G89.4 [facility] [address], [place] [address]- 2094 Jun, [facility] [id number] [place] [address] 10719- 7575 Jun, [facility] [id number] [place] [address] 73373- 3845 Jun, [facility] [id number] [place] [address] 37687- 7206 Jun, [facility] [id number] [place] [address] 09016- 8596 Jun, Lumbar neuritis M54.16 [facility] [id number] [place] [address] 12733- 3260 May, [facility] [id number] [place] [address] 68885- 6263 May, [facility] [id number] [place] [address] 14616- 9959 May, Encounter for therapeutic drug level monitoring Z51.81 ; Encounter for immunization Z23 and Chronic pain syndrome G89.4 [facility] [id number] [place] [address] 54964- 1298 May, Lumbar neuritis M54.16 [facility] [id number] [place] [address] 26370- 4393 May, [facility] [id number] [place] [address] 51580- 0699 Apr, Lumbar neuritis M54.16 [facility] [id number] [place] [address] 52712- 9916 Apr, [facility] [id number] [place] [address] 62318- 5608 Mar, Lumbar neuritis M54.16 [facility] [id number] [place] [address] 66452- 6239 Mar, [facility] [id number] [place] [address] 90251- 3538 Mar, [facility] [id number] [place] [address] 46469- 1115 Feb, Lumbar neuritis M54.16 [facility] [id number] [place] [address] 22114- 6737 Feb, Lumbar neuritis M54.16 [facility] [id number] [place] [address] 43224- 6196 16 Feb, 2017 [facility] [id number] [place] [address] 49157- 4803 Feb, [facility] [id number] [place] [address] 13683- 3046 Jan, [facility] [id number] [place] [address] 67188- 9151 22 Jan, 2017 Peroneal tendonitis of left lower extremity M76.72 [facility] [id number] [place] [address] 34200- 0963 Jan, Lumbar neuritis M54.16 [facility] [id number] [place] [address] 20516- 2255 Jan, [facility] [id number] [place] [address] 29732- 8326 2016 Lumbar neuritis M54.16 [facility] [id number] [place] [address] 68361- 8609 Dec, [facility] [id number] [place] [address] 15402- 0406 Dec, Pain in right knee M25.561 ; Lumbar neuritis M54.16 and Cervical neuritis M54.12 [facility] [id number] [place] [address] 43639- 5059 14 Dec, 2016 [facility] [id number] [place] [address] 96233- 0628 Dec, [facility] [id number] [place] [address] 85537- 6279 Nov, Lumbar neuritis M54.16 [facility] [id number] [place] [address] 35399- 6465 Nov, Bilateral primary osteoarthritis of knee M17.0 [facility] [id number] [place] [address] 79136- 2529 Nov, [facility] [id number] [place] [address] 82997- 3979 Nov, Bronchitis J40 and Plantar fasciitis M72.2 [facility] [id number] [place] [address] 41906- 2565 Nov, [facility] [address] 53295- 9104 Oct, Lumbar neuritis M54.16 [facility] [id number] [place] [address] 45217- 9904 Oct, Lumbar neuritis M54.16 [facility] [id number] [place] [address] 78069- 2595 Oct, Lumbar neuritis M54.16 [facility] [id number] [place] [address] 09280- 1888 Oct, Plantar fasciitis M72.2 and Pain in right knee M25.561 [facility] [id number] [place] [address] 79794- 8804 Oct, Lumbar neuritis M54.16 ; Cervical neuritis M54.12 ; Other specified abdominal hernia without obstruction or gangrene K45.8 ; Heel spur, left M77.32 ; Plantar fasciitis M72.2 and Pain in right knee M25.561 [facility] [id number] [place] [address] 78379- 5753 Oct, [facility] [id number] [place] [address] 84698- 1308 Aug, [facility] [id number] [place] [address] 34892- 6224 Aug, [facility] [place] [facility] [address] [id number] [place] [address]- 0128 Apr, [facility] [place] [facility] [address] [id number] [place] [address]- 9630 Apr, [facility] [place] [facility] [address] [id number] [place] [address]- 7243 Mar, [facility] [place] [facility] [address] [id number] [place] [address]- 5466 Mar, [facility] [place] [facility] [address] [id number] [place] [address]- 8929 Feb, [facility] [place] [facility] [address] [id number] [place] [address]- 3832 Feb, [facility] [place] [facility] [address] [id number] [place] [address]- 7106 Feb, [facility] [place] [facility] [address] [id number] [place] [address]- 6110 Feb, [facility] [place] [facility] [address] [id number] [place] [address]- 1860 Feb, [facility] [place] [facility] [address] [id number] [place] [address]- 2557 Feb, [facility] [place] [facility] [address] [id number] [place] [address]- 2857 Feb, [facility] [place] [facility] [address] [id number] [place] [address]- 7311 Feb, [facility] [place] [facility] [address] [id number] [place] [address]- 7266 Jan, [facility] [place] [facility] [address] [id number] [place] [address]- 4869 30 Jan, 2014 [facility] [place] [facility] [address] [id number] [place] [address]- 3000 30 Jan, 2014 [facility] [place] [facility] [address] [id number] [place] [address]- 1775 30 Sep, 2013 [facility] [place] [facility] [address] [id number] [place] [address] 2545 30 Sep, 2013 [facility] [place] [facility] [address] [id number] [place] [address] 2546 30 Sep, 2013 [facility] [place] [facility] [address] [id number] [place] [address] 2547 26 Sep, 2013 [facility] [place] [facility] [address] [id number] [place] [address] 2545 26 Sep, 2013 [facility] [place] [facility] [address] [id number] [place] [address]- 1138 22 Sep, 2013 [facility] [place] [facility] [address] [id number] [place] [address]- 3239 22 Sep, 2013 [facility] [place] [facility] [address] [id number] [place] [address]- 5118 16 Sep, 2013 [facility] [place] [facility] [address] [id number] [place] [address]- 2543 16 Sep, 2013 [facility] [place] [facility] [address] [id number] [place] [address] 254 16 Sep, 2013 [facility] [place] [facility] [address] [id number] [place] [address]- 2549 16 Sep, 2013 [facility] [place] [facility] [address] [id number] [place] [address]- 8810 12 Sep, 2013 [facility] [place] [facility] [address] [id number] [place] [address] 2541 12 Sep, 2013 [facility] [place] [facility] [address] [id number] [place] [address] 2544 12 Sep, 2013 [facility] [place] [facility] [address] [id number] [place] [address]- 2544 12 Sep, 2013 [facility] [place] [facility] [address] [id number] [place] [address]- 2542 09 Sep, 2013 [facility] [place] [facility] [address] [id number] [place] [address]- 0898 Jan, 2013 [facility] [place] [facility] [address] [id number] [place] [address]- 2560 Jan, 2013 [facility] [place] [facility] [address] [id number] [place] [address]- 5040 Jan, 2013 [facility] [place] [facility] [address] [id number] [place] [address]- 8919 Jan, 2013 [facility] [place] [facility] [address] [id number] [place] [address]- 2553 Jan, [facility] [place] [facility] [address] [id number] [place] [address]- 9777 Dec, [facility] [place] [facility] [address] [id number] [place] [address]- 7137 Dec, [facility] [place] [facility] [address] [id number] [place] [address]- 2417 Dec, [facility] [place] [facility] [address] [id number] [place] [address]- 1902 Dec, [facility] [place] [facility] [address] [id number] [place] [address]- 7090 Dec, [facility] [place] [facility] [address] [id number] [place] [address]- 3316 Dec, [facility] [place] [facility] [address] [id number] [place] [address]- 5880 Dec, [facility] [place] [facility] [address] [id number] [place] [address]- 1972 Dec, [facility] [place] [facility] [address] [id number] [place] [address]- 0196 Dec, [facility] [place] [facility] [address] [id number] [place] [address]- 1343 Dec, [facility] [place] [facility] [address] [id number] [place] [address]- 6473 Dec, [facility] [place] [facility] [address] [id number] [place] [address]- 4384 Dec, [facility] [place] [facility] [address] [id number] [place] [address]- 3297 Dec, [facility] [place] [facility] [address] [id number] [place] [address]- 5302 Dec, [facility] [place] [facility] [address] [id number] [place] [address]- 6625 Dec, [facility] [place] [facility] [address] [id number] [place] [address]- 9891 Dec, [facility] [place] [facility] [address] [id number] [place] [address]- 7786 Dec, [facility] [place] [facility] [address] [id number] [place] [address]- 1400 Dec, [facility] [place] [facility] [address] [id number] [place] [address]- 4614 Dec, [facility] [place] [facility] [address] [id number] [place] [address]- 3141 Nov, [facility] [place] [facility] [address] [id number] [place] [address]- 0134 Nov, [facility] [place] [facility] [address] [id number] [place] [address]- 1586 Nov, [facility] [place] [facility] [address] [id number] [place] [address]- 1393 Nov, [facility] [place] [facility] [address] [id number] [place] [address]- 5210 Nov, [facility] [place] [facility] [address] [id number] [place] [address]- 5167 Nov, [facility] [place] [facility] [address] [id number] [place] [address]- 0817 Nov, [facility] [place] [facility] [address] [id number] [address]- 6168 Nov, [facility] [id number] [address]- 7657 Nov, [facility] [id number] [address]- 6283 Nov, [facility] [id number] [address]- 7185 Nov, [facility] [id number] [address]- 9085 Oct, [facility] [id number] [address]- 2661 Oct, [facility] [id number] [address]- 8675 Oct, [facility] [id number] [address]- 5210 Apr, IMMUNIZATIONS No Known Immunizations SOCIAL HISTORY Never Assessed REASON FOR VISIT PLAN OF CARE VITAL SIGNS MEDICATIONS No Known Medications RESULTS No Results PROCEDURES No Known [...]
--- OUTSIDE RECORDS SUMMARY | 2018-04-14 06:04 | XMS REPORT ---
Author Author BONNY BRANNON Organization [facility] Address [address] [place] [address] Care Team Providers Care Category Planner Name Role Phone BONNY BRANNON Unavailable PROBLEMS Type Condition ICD9-CM Code UMU96-OE Code Onset Dates Condition Status SNOMED Code Problem Anxiety disorder, unspecified F41.9 Active 988886207 Problem Chronic pain syndrome G89.4 Active [id number] Problem Bilateral primary osteoarthritis of knee M17.0 Active [id number] ALLERGIES No Information ENCOUNTERS Encounter Location Date Diagnosis [facility] [id number] [place] [address] 06994- 2478 Nov, Chronic pain syndrome G89.4 [facility] [id number] [place] [address] 34960- 9568 Nov, [facility] [id number] [place] [address] 61313- 5755 Oct, [facility] [id number] [place] [address] 64439- 6723 Oct, [facility] [id number] [place] [address] 82607- 3164 Oct, [facility] [id number] [place] [address] 65217- 4912 Oct, Allergic reaction to drug, subsequent encounter T78.40XD [facility] [address] [address]- 8780 September, [facility] [id number] [place] [address] 03876- 8045 September, [facility] [id number] [place] [address] 09630- 7806 September, Low back pain radiating to lower extremity M54.5 [facility] [address] [address]- 5856 Aug, [facility] [address] [address]- 5576 Aug, [facility] [address] [address]- 0219 Aug, [facility] [id number] [place] [address] 68589- 8177 Aug, [facility] [id number] [place] [address] 52407- 8528 Aug, Incisional infection, initial encounter T81.4XXA [facility] [id number] [place] [address] 71822- 6727 Aug, [facility] [id number] [place] [address] 05689- 1237 Jul, [facility] [id number] [place] [address] 78694- 2328 Jul, [facility] [id number] [place] [address] 24982- 1473 Jul, Chronic pain syndrome G89.4 [facility] [address] [address] 9151 Jul, Pre-op evaluation Z01.818 [facility] [address] [address]- 4231 Jul, [facility] [address] [address]- 6243 Jun, Anxiety disorder, unspecified F41.9 and Chronic pain syndrome G89.4 [facility] [address] [address]- 9637 Jun, [facility] [id number] [place] [address] 23510- 6753 Jun, [facility] [id number] [place] [address] 68519- 2256 Jun, [facility] [id number] [place] [address] 91388- 1270 Jun, [facility] [id number] [place] [address] 80100- 8376 Jun, Lumbar neuritis M54.16 [facility] [id number] [place] [address] 48747- 4599 May, [facility] [id number] [place] [address] 82184- 1406 May, [facility] [id number] [place] [address] 97414- 5005 May, Encounter for therapeutic drug level monitoring Z51.81 ; Encounter for immunization Z23 and Chronic pain syndrome G89.4 [facility] [id number] [place] [address] 73252- 9457 May, Lumbar neuritis M54.16 [facility] [id number] [place] [address] 82527- 5314 May, [facility] [id number] [place] [address] 52699- 7506 Apr, Lumbar neuritis M54.16 [facility] [id number] [place] [address] 21904- 5133 Apr, [facility] [id number] [place] [address] 46354- 4381 Mar, Lumbar neuritis M54.16 [facility] [id number] [place] [address] 81336- 1036 Mar, [facility] [id number] [place] [address] 12387- 0732 Mar, [facility] [id number] [place] [address] 44285- 9444 Feb, Lumbar neuritis M54.16 [facility] [id number] [place] [address] 16990- 9891 Feb, Lumbar neuritis M54.16 [facility] [id number] [place] [address] 94885- 2828 16 Feb, 2017 [facility] [id number] [place] [address] 60385- 8766 Feb, [facility] [id number] [place] [address] 53669- 5651 Jan, [facility] [id number] [place] [address] 54104- 1236 22 Jan, 2017 Peroneal tendonitis of left lower extremity M76.72 [facility] [id number] [place] [address] 99933- 1270 Jan, Lumbar neuritis M54.16 [facility] [id number] [place] [address] 05795- 3556 Jan, [facility] [id number] [place] [address] 69759- 1572 2016 Lumbar neuritis M54.16 [facility] [id number] [place] [address] 71953- 8647 Dec, [facility] [id number] [place] [address] 06588- 6532 Dec, Pain in right knee M25.561 ; Lumbar neuritis M54.16 and Cervical neuritis M54.12 [facility] [id number] [place] [address] 24934- 2981 14 Dec, 2016 [facility] [id number] [place] [address] 86895- 0185 Dec, [facility] [id number] [place] [address] 89129- 5849 Nov, Lumbar neuritis M54.16 [facility] [id number] [place] [address] 07161- 8830 Nov, Bilateral primary osteoarthritis of knee M17.0 [facility] [address] 45099- 6489 Nov, [facility] [address] 42759- 1113 Nov, Bronchitis J40 and Plantar fasciitis M72.2 [facility] [id number] [place] [address] 95323- 3982 Nov, [facility] [address] 96093- 1641 Oct, Lumbar neuritis M54.16 [facility] [address] 01194- 4771 Oct, Lumbar neuritis M54.16 [facility] [address] 12286- 9409 Oct, Lumbar neuritis M54.16 [facility] [id number] [place] [address] 64614- 3031 Oct, Plantar fasciitis M72.2 and Pain in right knee M25.561 [facility] [facility] [id number] [place] [address] 52445- 8701 Oct, Lumbar neuritis M54.16 ; Cervical neuritis M54.12 ; Other specified abdominal hernia without obstruction or gangrene K45.8 ; Heel spur, left M77.32 ; Plantar fasciitis M72.2 and Pain in right knee M25.561 [facility] [id number] [place] [address] 74398- 7925 Oct, [facility] [id number] [place] [address] 93609- 9634 Aug, [facility] [id number] [place] [address] 37511- 1105 Aug, [facility] [place] [facility] [address] [id number] [place] [address]- 7950 Apr, [facility] [place] [facility] [address] [id number] [place] [address]- 2300 Apr, [facility] [place] [facility] [address] [id number] [place] [address]- 5419 Mar, [facility] [place] [facility] [address] [id number] [place] [address]- 1013 Mar, [facility] [place] [facility] [address] [id number] [place] [address]- 1814 Feb, [facility] [place] [facility] [address] [id number] [place] [address]- 7242 Feb, [facility] [place] [facility] [address] [id number] [place] [address]- 3170 Feb, [facility] [place] [facility] [address] [id number] [place] [address]- 0871 Feb, [facility] [place] [facility] [address] [id number] [place] [address]- 7577 Feb, [facility] [place] [facility] [address] [id number] [place] [address]- 8029 Feb, [facility] [place] [facility] [address] [id number] [place] [address]- 0531 Feb, [facility] [place] [facility] [address] [id number] [place] [address]- 8101 Feb, [facility] [place] [facility] [address] [id number] [place] [address]- 0321 Jan, [facility] [place] [facility] [address] [id number] [place] [address]- 4477 30 Jan, 2014 [facility] [place] [facility] [address] [id number] [place] [address]- 3950 30 Jan, 2014 [facility] [place] [facility] [address] [id number] [place] [address]- 7600 30 Sep, 2013 [facility] [place] [facility] [address] [id number] [place] [address] 2542 30 Sep, 2013 [facility] [place] [facility] [address] [id number] [place] [address] 2546 30 Sep, 2013 [facility] [place] [facility] [address] [id number] [place] [address] 2546 26 Sep, 2013 [facility] [place] [facility] [address] [id number] [place] [address] 2545 26 Sep, 2013 [facility] [place] [facility] [address] [id number] [place] [address]- 2111 22 Sep, 2013 [facility] [place] [facility] [address] [id number] [place] [address]- 3385 22 Sep, 2013 [facility] [place] [facility] [address] [id number] [place] [address]- 5890 16 Sep, 2013 [facility] [place] [facility] [address] [id number] [place] [address] 2540 16 Sep, 2013 [facility] [place] [facility] [address] [id number] [place] [address] 2544 16 Sep, 2013 [facility] [place] [facility] [address] [id number] [place] [address]- 2543 16 Sep, 2013 [facility] [place] [facility] [address] [id number] [place] [address]- 5801 12 Sep, 2013 [facility] [place] [facility] [address] [id number] [place] [address] 2542 12 Sep, 2013 [facility] [place] [facility] [address] [id number] [place] [address] 2546 12 Sep, 2013 [facility] [place] [facility] [address] [id number] [place] [address]- 2540 12 Sep, 2013 [facility] [place] [facility] [address] [id number] [place] [address]- 2547 09 Sep, 2013 [facility] [place] [facility] [address] [id number] [place] [address]- 5379 Jan, 2013 [facility] [place] [facility] [address] [id number] [place] [address]- 5321 Jan, 2013 [facility] [place] [facility] [address] [id number] [place] [address]- 8828 Jan, 2013 [facility] [place] [facility] [address] [id number] [place] [address]- 0792 Jan, 2013 [facility] [place] [facility] [address] [id number] [place] [address]- 2100 Jan, 2013 [facility] [place] [facility] [address] [id number] [place] [address]- 9323 Dec, [facility] [place] [facility] [address] [id number] [place] [address]- 9857 Dec, [facility] [place] [facility] [address] [id number] [place] [address]- 1466 Dec, [facility] [place] [facility] [address] [id number] [place] [address]- 1978 Dec, [facility] [place] [facility] [address] [id number] [place] [address]- 4961 Dec, [facility] [place] [facility] [address] [id number] [place] [address]- 9657 Dec, [facility] [place] [facility] [address] [id number] [place] [address]- 1421 Dec, [facility] [place] [facility] [address] [id number] [place] [address]- 6947 Dec, [facility] [place] [facility] [address] [id number] [place] [address]- 7941 Dec, [facility] [place] [facility] [address] [id number] [place] [address]- 1410 Dec, [facility] [place] [facility] [address] [id number] [place] [address]- 6508 Dec, [facility] [place] [facility] [address] [id number] [place] [address]- 4227 Dec, [facility] [place] [facility] [address] [id number] [place] [address]- 2531 Dec, [facility] [place] [facility] [address] [id number] [place] [address]- 0183 Dec, [facility] [place] [facility] [address] [id number] [place] [address]- 9949 Dec, [facility] [place] [facility] [address] [id number] [place] [address]- 7732 Dec, [facility] [place] [facility] [address] [id number] [place] [address]- 6896 Dec, [facility] [place] [facility] [address] [id number] [place] [address]- 6030 Dec, [facility] [place] [facility] [address] [id number] [place] [address]- 6629 Dec, [facility] [place] [facility] [address] [id number] [place] [address]- 2183 Nov, [facility] [place] [facility] [address] [id number] [place] [address]- 5468 Nov, [facility] [place] [facility] [address] [id number] [place] [address]- 7548 Nov, [facility] [place] [facility] [address] [id number] [place] [address]- 3996 Nov, [facility] [place] [facility] [address] [id number] [place] [address]- 9442 Nov, [facility] [place] [facility] [address] [id number] [place] [address]- 9197 Nov, [facility] [place] [facility] [address] [id number] [place] [address]- 6275 Nov, [facility] [place] [facility] [address] [id number] [address]- 6924 Nov, [facility] [id number] [address]- 4828 Nov, [facility] [address] [facility] [id number] [address]- 6114 Nov, [facility] [id number] [address]- 6396 Nov, [facility] [id number] [address]- 1007 Oct, [facility] [id number] [address]- 1775 Oct, [facility] [id number] [address]- 4686 Oct, [facility] [id number] [address]- 6486 Apr, IMMUNIZATIONS No Known Immunizations SOCIAL HISTORY Never Assessed REASON FOR VISIT TAPER/Controlled Med Refill 08/13/17 PLAN OF CARE VITAL SIGNS MEDICATIONS No [...]
--- OUTSIDE RECORDS SUMMARY | 2018-04-14 06:05 | XMS REPORT ---
Author Author BONNY BRANNON Organization [facility] Address [address] [place] [address] Care Team Providers Care Preschool Assistant Name Role Phone BONNY BRANNON Unavailable PROBLEMS Type Condition ICD9-CM Code [id number] Code Onset Dates Condition Status SNOMED Code Problem Anxiety disorder, unspecified F41.9 Active 613066959 Problem Chronic pain syndrome G89.4 Active 196251660 Problem Bilateral primary osteoarthritis of knee M17.0 Active [id number] ALLERGIES No Information ENCOUNTERS Encounter Location Date Diagnosis [facility] [id number] [place] [address] 54388- 2672 Nov, Chronic pain syndrome G89.4 [facility] [id number] [place] [address] 60103- 5214 Nov, [facility] [id number] [place] [address] 62694- 9628 Oct, [facility] [id number] [place] [address] 98293- 6553 Oct, [facility] [id number] [place] [address] 62006- 0277 Oct, [facility] [id number] [place] [address] 04475- 3223 Oct, Allergic reaction to drug, subsequent encounter T78.40XD [facility] [address] 07052- 8201 September, [facility] [id number] [place] [address] 29164- 4360 September, [facility] [id number] [place] [address] 50436- 5411 September, Low back pain radiating to lower extremity M54.5 [facility] [address] [address] 2663 Aug, [facility] [address] [address]- 5221 Aug, [facility] [address], [place] [address]- 3845 Aug, [facility] [id number] [place] [address] 07942- 6928 Aug, [facility] [id number] [place] [address] 90219- 0494 Aug, Incisional infection, initial encounter T81.4XXA [facility] [id number] [place] [address] 26889- 3046 Aug, [facility] [id number] [place] [address] 49161- 6374 Jul, [facility] [id number] [place] [address] 03795- 1523 Jul, [facility] [id number] [place] [address] 24787- 8233 Jul, Chronic pain syndrome G89.4 [facility] [address], [place] [address] Jul, Pre-op evaluation Z01.818 [facility] [address], [place] [address]- 4815 Jul, [facility] [address], [place] [address]- 1593 Jun, Anxiety disorder, unspecified F41.9 and Chronic pain syndrome G89.4 [facility] [address], [place] [address]- 4699 Jun, [facility] [id number] [place] [address] 90131- 2399 Jun, [facility] [id number] [place] [address] 02378- 7024 Jun, [facility] [id number] [place] [address] 75691- 2953 Jun, [facility] [id number] [place] [address] 73486- 3909 Jun, Lumbar neuritis M54.16 [facility] [id number] [place] [address] 55185- 5228 May, [facility] [id number] [place] [address] 20433- 9339 May, [facility] [id number] [place] [address] 94991- 3991 May, Encounter for therapeutic drug level monitoring Z51.81 ; Encounter for immunization Z23 and Chronic pain syndrome G89.4 [facility] [id number] [place] [address] 06723- 9782 May, Lumbar neuritis M54.16 [facility] [id number] [place] [address] 86143- 9866 May, [facility] [id number] [place] [address] 36536- 4873 Apr, Lumbar neuritis M54.16 [facility] [id number] [place] [address] 39717- 7261 Apr, [facility] [id number] [place] [address] 92198- 8900 Mar, Lumbar neuritis M54.16 [facility] [id number] [place] [address] 84500- 4861 Mar, [facility] [id number] [place] [address] 74205- 4525 Mar, [facility] [id number] [place] [address] 30922- 4371 Feb, Lumbar neuritis M54.16 [facility] [id number] [place] [address] 93086- 3476 Feb, Lumbar neuritis M54.16 [facility] [id number] [place] [address] 19811- 8630 16 Feb, 2017 [facility] [id number] [place] [address] 05079- 5589 Feb, [facility] [id number] [place] [address] 46187- 6680 Jan, [facility] [id number] [place] [address] 41410- 5030 22 Jan, 2017 Peroneal tendonitis of left lower extremity M76.72 [facility] [id number] [place] [address] 92986- 5724 Jan, Lumbar neuritis M54.16 [facility] [id number] [place] [address] 02199- 7075 Jan, [facility] [id number] [place] [address] 72083- 0472 2016 Lumbar neuritis M54.16 [facility] [id number] [place] [address] 51963- 7528 Dec, [facility] [id number] [place] [address] 67658- 9507 Dec, Pain in right knee M25.561 ; Lumbar neuritis M54.16 and Cervical neuritis M54.12 [facility] [id number] [place] [address] 45002- 1897 14 Dec, 2016 [facility] [id number] [place] [address] 50917- 9056 Dec, [facility] [id number] [place] [address] 23412- 7334 Nov, Lumbar neuritis M54.16 [facility] [id number] [place] [address] 88248- 9302 Nov, Bilateral primary osteoarthritis of knee M17.0 [facility] [address] 11092- 0977 Nov, [facility] [address] 19785- 6410 Nov, Bronchitis J40 and Plantar fasciitis M72.2 [facility] [id number] [place] [address] 11841- 4760 Nov, [facility] [address] 16095- 7968 Oct, Lumbar neuritis M54.16 [facility] [address] 35594- 3912 Oct, Lumbar neuritis M54.16 [facility] [address] 33148- 9273 Oct, Lumbar neuritis M54.16 [facility] [id number] [place] [address] 22551- 1298 Oct, Plantar fasciitis M72.2 and Pain in right knee M25.561 [place] [place] [id number] [place] [address] 48357- 6706 Oct, Lumbar neuritis M54.16 ; Cervical neuritis M54.12 ; Other specified abdominal hernia without obstruction or gangrene K45.8 ; Heel spur, left M77.32 ; Plantar fasciitis M72.2 and Pain in right knee M25.561 [facility] [id number] [place] [address] 80436- 8476 Oct, [facility] [id number] [place] [address] 15496- 9177 Aug, [facility] [id number] [place] [address] 86585- 6825 Aug, [facility] [place] [facility] [address] [id number] [place] [address]- 0495 Apr, [facility] [place] [facility] [address] [id number] [place] [address]- 8323 Apr, [facility] [place] [facility] [address] [id number] [place] [address]- 1094 Mar, [facility] [place] [facility] [address] [id number] [place] [address]- 9860 Mar, [facility] [place] [facility] [address] [id number] [place] [address]- 0545 Feb, [facility] [place] [facility] [address] [id number] [place] [address]- 9992 Feb, [facility] [place] [facility] [address] [id number] [place] [address]- 5440 Feb, [facility] [place] [facility] [address] [id number] [place] [address]- 2723 Feb, [facility] [place] [facility] [address] [id number] [place] [address]- 6526 Feb, [facility] [place] [facility] [address] [id number] [place] [address]- 1151 Feb, [facility] [place] [facility] [address] [id number] [place] [address]- 8427 Feb, [facility] [place] [facility] [address] [id number] [place] [address]- 2800 Feb, [facility] [place] [facility] [address] [id number] [place] [address]- 0245 Jan, [facility] [place] [facility] [address] [id number] [place] [address]- 3908 30 Jan, 2014 [facility] [place] [facility] [address] [id number] [place] [address]- 2793 30 Jan, 2014 [facility] [place] [facility] [address] [id number] [place] [address]- 6692 30 Sep, 2013 [facility] [place] [facility] [address] [id number] [place] [address] 254 30 Sep, 2013 [facility] [place] [facility] [address] [id number] [place] [address] 2546 30 Sep, 2013 [facility] [place] [facility] [address] [id number] [place] [address] 2546 26 Sep, 2013 [facility] [place] [facility] [address] [id number] [place] [address] 2541 26 Sep, 2013 [facility] [place] [facility] [address] [id number] [place] [address]- 8966 22 Sep, 2013 [facility] [place] [facility] [address] [id number] [place] [address]- 1187 22 Sep, 2013 [facility] [place] [facility] [address] [id number] [place] [address]- 4943 16 Sep, 2013 [facility] [place] [facility] [address] [id number] [place] [address] 2543 16 Sep, 2013 [facility] [place] [facility] [address] [id number] [place] [address] 2540 16 Sep, 2013 [facility] [place] [facility] [address] [id number] [place] [address]- 2547 16 Sep, 2013 [facility] [place] [facility] [address] [id number] [place] [address]- 7974 12 Sep, 2013 [facility] [place] [facility] [address] [id number] [place] [address] 2545 12 Sep, 2013 [facility] [place] [facility] [address] [id number] [place] [address] 2546 12 Sep, 2013 [facility] [place] [facility] [address] [id number] [place] [address]- 2543 12 Sep, 2013 [facility] [place] [facility] [address] [id number] [place] [address]- 2545 09 Sep, 2013 [facility] [place] [facility] [address] [id number] [place] [address]- 8181 Jan, 2013 [facility] [place] [facility] [address] [id number] [place] [address]- 4501 Jan, 2013 [facility] [place] [facility] [address] [id number] [place] [address]- 9769 Jan, 2013 [facility] [place] [facility] [address] [id number] [place] [address]- 5781 Jan, 2013 [facility] [place] [facility] [address] [id number] [place] [address]- 4058 Jan, 2013 [facility] [place] [facility] [address] [id number] [place] [address]- 9092 Dec, [facility] [place] [facility] [address] [id number] [place] [address]- 5955 Dec, [facility] [place] [facility] [address] [id number] [place] [address]- 1888 Dec, [facility] [place] [facility] [address] [id number] [place] [address]- 2436 Dec, [facility] [place] [facility] [address] [id number] [place] [address]- 6135 Dec, [facility] [place] [facility] [address] [id number] [place] [address]- 3516 Dec, [facility] [place] [facility] [address] [id number] [place] [address]- 4231 Dec, [facility] [place] [facility] [address] [id number] [place] [address]- 3487 Dec, [facility] [place] [facility] [address] [id number] [place] [address]- 5257 Dec, [facility] [place] [facility] [address] [id number] [place] [address]- 4842 Dec, [facility] [place] [facility] [address] [id number] [place] [address]- 1469 Dec, [facility] [place] [facility] [address] [id number] [place] [address]- 7466 Dec, [facility] [place] [facility] [address] [id number] [place] [address]- 2914 Dec, [facility] [place] [facility] [address] [id number] [place] [address]- 5231 Dec, [facility] [place] [facility] [address] [id number] [place] [address]- 4530 Dec, [facility] [place] [facility] [address] [id number] [place] [address]- 9852 Dec, [facility] [place] [facility] [address] [id number] [place] [address]- 5641 Dec, [facility] [place] [facility] [address] [id number] [place] [address]- 8365 Dec, [facility] [place] [facility] [address] [id number] [place] [address]- 9024 Dec, [facility] [place] [facility] [address] [id number] [place] [address]- 0051 Nov, [facility] [place] [facility] [address] [id number] [place] [address]- 6164 Nov, [facility] [place] [facility] [address] [id number] [place] [address]- 3134 Nov, [facility] [place] [facility] [address] [id number] [place] [address]- 4938 Nov, [facility] [place] [facility] [address] [id number] [place] [address]- 8515 Nov, [facility] [place] [facility] [address] [id number] [place] [address]- 2635 Nov, [facility] [place] [facility] [address] [id number] [place] [address]- 3981 Nov, [facility] [place] [facility] [address] [id number] [address]- 3959 Nov, [facility] [id number] 4389 Nov, [facility] [id number] [address]- 6496 Nov, [facility] [id number] [address]- 2174 Nov, [facility] [id number] [address]- 5394 Oct, [facility] [id number] 6318 Oct, [facility] [address], [place] [address]- 4649 Oct, [facility] [id number], [place] [address]- 5721 Apr, IMMUNIZATIONS No Known Immunizations SOCIAL HISTORY Never Assessed REASON FOR VISIT Controlled Med Refill 07/28/17 PLAN OF CARE VITAL SIGNS MEDICATIONS Medication Instructions Dosage Frequency Start Date End Date Duration Status Morphine Sulfate ER 30 MG Orally twice a day 1 capsule 12h Jul, 14 days Active RESULTS No Results PROCEDURES [...]
--- OUTSIDE RECORDS SUMMARY | 2018-04-14 06:05 | XMS REPORT ---
Author Author PREETHI YIN Organization [facility] Address [address] [place] [address] Care Team Providers Care [employer] Name Role Phone RPEETHI YIN Unavailable PROBLEMS Type Condition ICD9-CM Code TJP20-ZH Code Onset Dates Condition Status SNOMED Code Problem Anxiety disorder, unspecified F41.9 Active 518566643 Problem Chronic pain syndrome G89.4 Active 390691494 Problem Bilateral primary osteoarthritis of knee M17.0 Active 739994319 ALLERGIES No Information ENCOUNTERS Encounter Location Date Diagnosis [facility] [id number] [place] [address] 73119- 7510 Nov, Chronic pain syndrome G89.4 [facility] [id number] [place] [address] 60002- 6322 Nov, [facility] [id number] [place] [address] 28064- 3106 Oct, [facility] [id number] [place] [address] 38488- 2575 Oct, [facility] [id number] [place] [address] 07441- 7071 Oct, [facility] [id number] [place] [address] 49463- 3830 Oct, Allergic reaction to drug, subsequent encounter T78.40XD [facility] [id number] [place] [address] 21953- 4323 September, [facility] [id number] [place] [address] 79141- 5848 September, [facility] [id number] [place] [address] 72498- 7106 September, Low back pain radiating to lower extremity M54.5 [facility] [id number] [place] [address] 1128 Aug, [facility] [address] [address] 1626 Aug, [facility] [address] [address] 2954 Aug, [facility] [address], [place] [address] 4054 Aug, [facility] [address] [address] 2094 Aug, Incisional infection, initial encounter T81.4XXA [facility] [address] [address] 1208 Aug, [facility] [id number] [place] [address] 76090- 2838 Jul, [facility] [id number] [address]- 2826 Jul, [facility] [id number] [place] [address] 35407- 3866 Jul, Chronic pain syndrome G89.4 [facility] [id number], [place] [address] 9732 Jul, Pre-op evaluation Z01.818 [facility] [address], [place] [address]- 5182 Jul, [facility] [id number], [place] [address]- 2397 Jun, Anxiety disorder, unspecified F41.9 and Chronic pain syndrome G89.4 [facility] [address], [place] [address]- 1730 Jun, [facility] [address], [place] [address]- 4428 Jun, [facility] [id number] [place] [address] 17713- 7742 Jun, [facility] [id number] [place] [address] 70422- 9956 Jun, [facility] [id number] [place] [address] 54308- 5041 Jun, Lumbar neuritis M54.16 [facility] [id number] [place] [address] 66067- 8557 May, [facility] [id number] [place] [address] 63933- 0894 May, [facility] [id number] [place] [address] 50310- 9616 May, Encounter for therapeutic drug level monitoring Z51.81 ; Encounter for immunization Z23 and Chronic pain syndrome G89.4 [facility] [id number] [place] [address] 92419- 1941 May, Lumbar neuritis M54.16 [facility] [id number] [place] [address] 22773- 3718 May, [facility] [id number] [place] [address] 05767- 8295 Apr, Lumbar neuritis M54.16 [facility] [id number] [place] [address] 57512- 1321 Apr, [facility] [id number] [place] [address] 56726- 1282 Mar, Lumbar neuritis M54.16 [facility] [id number] [place] [address] 39556- 6696 Mar, [facility] [id number] [place] [address] 44064- 7467 Mar, [facility] [id number] [place] [address] 73173- 6761 Feb, Lumbar neuritis M54.16 [facility] [id number] [place] [address] 55654- 4467 18 Feb, 2017 Lumbar neuritis M54.16 [facility] [id number] [place] [address] 71321- 2424 16 Feb, 2017 [facility] [id number] [place] [address] 92067- 4291 Feb, [facility] [id number] [place] [address] 80650- 7582 Jan, [facility] [address] 26889- 1578 22 Jan, 2017 Peroneal tendonitis of left lower extremity M76.72 [facility] [id number] [place] [address] 17084- 4312 20 Jan, 2017 Lumbar neuritis M54.16 [facility] [id number] [place] [address] 76716- 7982 Jan, [facility] [id number] [place] [address] 60620- 3003 Dec, Lumbar neuritis M54.16 [facility] [id number] [place] [address] 00196- 6681 Dec, [facility] [id number] [place] [address] 81513- 6792 Dec, Pain in right knee M25.561 ; Lumbar neuritis M54.16 and Cervical neuritis M54.12 [facility] [id number] [place] [address] 02276- 9928 Dec, [facility] [id number] [place] [address] 15808- 9159 Dec, [facility] [id number] [place] [address] 23510- 4223 Nov, Lumbar neuritis M54.16 [facility] [id number] [place] [address] 91364- 5396 Nov, Bilateral primary osteoarthritis of knee M17.0 [facility] [address] 90204- 7562 Nov, [facility] [address] 23381- 9173 Nov, Bronchitis J40 and Plantar fasciitis M72.2 [facility] [address] 20891- 6323 Nov, [facility] [address] 54098- 7110 Oct, Lumbar neuritis M54.16 [facility] [id number] [place] [address] 75441- 6396 Oct, Lumbar neuritis M54.16 [facility] [address] 36054- 8398 Oct, Lumbar neuritis M54.16 [facility] [id number] [place] [address] 12183- 6209 26 Oct, 2016 Plantar fasciitis M72.2 and Pain in right knee M25.561 [id number] [place] [address] 19019- 8086 16 Oct, 2016 Lumbar neuritis M54.16 ; Cervical neuritis M54.12 ; Other specified abdominal hernia without obstruction or gangrene K45.8 ; Heel spur, left M77.32 ; Plantar fasciitis M72.2 and Pain in right knee M25.561 [facility] [id number] [place] [address] 93733- 5751 Oct, [facility] [id number] [place] [address] 15496- 2011 Aug, [facility] [id number] [place] [address] 32732- 3248 Aug, [facility] [place] [facility] [address] [id number] [place] [address]- 4064 11 Apr, 2014 [facility] [place] [facility] [address] [id number] [place] [address]- 6380 11 Apr, 2014 [facility] [place] [facility] [address] [id number] [place] [address]- 5307 Mar, [facility] [place] [facility] [address] [id number] [place] [address]- 3195 Mar, [facility] [place] [facility] [address] [id number] [place] [address]- 5954 Feb, [facility] [place] [facility] [address] [id number] [place] [address]- 9803 Feb, [facility] [place] [facility] [address] [id number] [place] [address]- 5071 Feb, [facility] [place] [facility] [address] [id number] [place] [address]- 0444 Feb, [facility] [place] [facility] [address] [id number] [place] [address]- 5832 Feb, [facility] [place] [facility] [address] [id number] [place] [address]- 4776 Feb, [facility] [place] [facility] [address] [facility] [id number] [place] [address]- 7450 Feb, [facility] [place] [facility] [address] [id number] [place] [address]- 4141 Feb, [facility] [place] [facility] [address] [id number] [place] [address]- 0540 30 Jan, 2013 [facility] [place] [facility] [address] [id number] [place] [address]- 1676 30 Jan, 2013 [facility] [place] [facility] [address] [id number] [place] [address]- 8006 30 Jan, 2013 [facility] [place] [facility] [address] [id number] [place] [address]- 0632 30 Sep, 2013 [facility] [place] [facility] [address] [id number] [place] [address] 2547 30 Sep, 2013 [facility] [place] [facility] [address] [id number] [place] [address] 2545 30 Sep, 2013 [facility] [place] [facility] [address] [id number] [place] [address]- 8754 26 Sep, 2013 [facility] [place] [facility] [address] [id number] [place] [address]- 7639 26 Sep, 2013 [facility] [place] [facility] [address] [id number] [place] [address]- 8705 22 Sep, 2013 [facility] [place] [facility] [address] [id number] [place] [address]- 1908 22 Sep, 2013 [facility] [place] [facility] [address] [id number] [place] [address]- 2503 16 Sep, 2013 [facility] [place] [facility] [address] [id number] [place] [address]- 5649 16 Sep, 2013 [facility] [place] [facility] [address] [id number] [place] [address]- 8571 16 Sep, 2013 [facility] [place] [facility] [address] [id number] [place] [address]- 0363 16 Sep, 2013 [facility] [place] [facility] [address] [id number] [place] [address]- 7610 12 Sep, 2013 [facility] [place] [facility] [address] [id number] [address]- 2058 12 Sep, 2013 [facility] [place] [facility] [address] [id number] [place] [address]- 2544 12 Sep, 2013 [facility] [place] [facility] [address] [id number] [place] [address]- 2543 12 Sep, 2013 [facility] [place] [facility] [address] [id number] [place] [address]- 4742 09 Sep, 2013 [facility] [place] [facility] [address] [id number] [place] [address]- 7257 Jan, 2013 [facility] [place] [facility] [address] [id number] [place] [address]- 5801 Jan, 2013 [facility] [place] [facility] [address] [id number] [place] [address]- 7436 Jan, 2013 [facility] [place] [facility] [address] [id number] [place] [address]- 0836 Jan, 2013 [facility] [place] [facility] [address] [id number] [place] [address]- 0847 Jan, 2013 [facility] [place] [facility] [address] [id number] [place] [address]- 3950 Dec, [facility] [place] [facility] [address] [id number] [place] [address]- 3558 Dec, [facility] [place] [facility] [address] [id number] [place] [address]- 2372 Dec, [facility] [place] [facility] [address] [id number] [place] [address]- 9895 Dec, [facility] [place] [facility] [address] [id number] [place] [address]- 2159 Dec, [facility] [place] [facility] [address] [id number] [place] [address]- 3996 Dec, [facility] [place] [facility] [address] [id number] [place] [address]- 1271 Dec, [facility] [place] [facility] [address] [id number] [place] [address]- 1043 Dec, [facility] [place] [facility] [address] [id number] [place] [address]- 5012 Dec, [facility] [place] [facility] [address] [id number] [place] [address]- 5044 Dec, [facility] [place] [facility] [address] [id number] [place] [address]- 6323 Dec, [facility] [place] [facility] [address] [id number] [place] [address]- 0138 Dec, [facility] [place] [facility] [address] [id number] [place] [address]- 5808 Dec, [facility] [place] [facility] [address] [id number] [facility] [address]- 7733 Dec, [facility] [place] [facility] [address] [id number] [place] [address]- 5798 Dec, [facility] [place] [facility] [address] [id number] [place] [address]- 8201 Dec, [facility] [place] [facility] [address] [id number] [place] [address]- 9465 Dec, [facility] [place] [facility] [address] [id number] [place] [address]- 3993 Dec, [facility] [place] [facility] [address] [id number] [place] [address]- 4319 Dec, [facility] [place] [facility] [address] [id number] [place] [address]- 1992 Nov, [facility] [place] [facility] [address] [id number] [place] [address]- 2145 Nov, [facility] [place] [facility] [address] [id number] [place] [address]- 1663 Nov, [facility] [place] [facility] [address] [id number] [place] [address]- 4003 Nov, [facility] [place] [facility] [address] [id number] [place] [address]- 4196 Nov, [facility] [place] [facility] [address] [id number] [place] [address]- 4099 Nov, [facility] [place] [facility] [address] [id number] [place] [address]- 8944 Nov, [facility] [place] [facility] [address] [id number], [place] [address]- 0866 Nov, [facility] [address] [facility] [id number], [place] [address]- 5685 Nov, [facility] [address] [facility] [id number], [place] [address]- 0826 Nov, [facility] [id number] [address]- 6551 Nov, [facility] [address] [facility] [id number], [place] [address]- 5685 Oct, [facility] [address] [facility] [id number], [place] [address]- 6238 Oct, [facility] [id number] [address]- 3621 Oct, [facility] [address] [facility] [id number], [place] [address]- 8356 Apr, IMMUNIZATIONS No Known Immunizations SOCIAL HISTORY Never Assessed REASON FOR VISIT Controlled Med clarification PLAN OF CARE VITAL SIGNS MEDICATIONS Medication Instructions Dosage Frequency Start Date End Date Duration Status Morphine Sulfate ER 15 mg Orally Once a day in the evening 1 tablet Jul, 14 days Active Morphine Sulfate ER 30 MG Orally Once a day in the morning 1 capsule Jul, 14 days Active RESULTS No Results [...]
--- OUTSIDE RECORDS SUMMARY | 2018-04-14 06:05 | XMS REPORT ---
Author Author BONNY BRANNON Organization [facility] Address [address] [place] [address] Care Team Providers Care Title Manager Name Role Phone BONNY BRANNON Unavailable PROBLEMS Type Condition ICD9-CM Code FPU75-BB Code Onset Dates Condition Status SNOMED Code Problem Anxiety disorder, unspecified F41.9 Active 806491092 Problem Chronic pain syndrome G89.4 Active 845132491 Problem Bilateral primary osteoarthritis of knee M17.0 Active 017159890 ALLERGIES Substance Reaction Event Type Date Status Dilaudid dizziness Drug Allergy Jul, Active ENCOUNTERS Encounter Location Date Diagnosis [facility] [id number] [place] [address] 71479- 4434 Nov, Chronic pain syndrome G89.4 [facility] [id number] [place] [address] 52451- 0555 Nov, [facility] [id number] [place] [address] 91539- 5194 Oct, [facility] [id number] [place] [address] 83580- 3726 Oct, [facility] [id number] [place] [address] 73982- 7546 Oct, [facility] [id number] [place] [address] 68315- 1100 Oct, Allergic reaction to drug, subsequent encounter T78.40XD [facility] [id number] [place] [address] 61797- 2207 September, [facility] [id number] [place] [address] 61976- 7071 September, [facility] [id number] [place] [address] [place] [address]- 4595 September, Low back pain radiating to lower extremity M54.5 [facility] [address] [address] 7916 Aug, [facility] [address] [address]- 0146 Aug, [facility] [id number] [place] [address] 71180- 8977 Aug, [facility] [id number] [place] [address] 78269- 6833 Aug, [facility] [id number] [place] [address] 45746- 5175 Aug, Incisional infection, initial encounter T81.4XXA [facility] [id number] [place] [address] 16485- 8091 Aug, [facility] [address] [address]- 3552 Jul, [facility] [address], [place] [address]- 6709 Jul, [facility] [address] [place] [address] 5013 Jul, Chronic pain syndrome G89.4 [facility] [address] [address] Jul, Pre-op evaluation Z01.818 [facility] [address] [address]- 5794 Jul, [facility] [id number] [place] [address] 14887- 9282 Jun, Anxiety disorder, unspecified F41.9 and Chronic pain syndrome G89.4 [facility] [address], [place] [address]- 8372 Jun, [facility] [address], [place] [address]- 3958 Jun, [facility] [id number] [place] [address] 99533- 0446 Jun, [facility] [id number] [place] [address] 47193- 9756 Jun, [facility] [id number] [place] [address] 80250- 3919 Jun, Lumbar neuritis M54.16 [facility] [id number] [place] [address] 22122- 9245 May, [facility] [id number] [place] [address] 97745- 0072 May, [facility] [id number] [place] [address] 78699- 6484 May, Encounter for therapeutic drug level monitoring Z51.81 ; Encounter for immunization Z23 and Chronic pain syndrome G89.4 [facility] [id number] [place] [address] 22397- 1263 May, Lumbar neuritis M54.16 [facility] [id number] [place] [address] 26664- 5893 May, [facility] [id number] [place] [address] 72085- 8601 Apr, Lumbar neuritis M54.16 [facility] [id number] [place] [address] 47783- 9850 Apr, [facility] [id number] [place] [address] 89124- 9774 Mar, Lumbar neuritis M54.16 [facility] [id number] [place] [address] 01081- 4737 Mar, [facility] [id number] [place] [address] 02557- 9903 Mar, [facility] [id number] [place] [address] 38385- 1786 Feb, Lumbar neuritis M54.16 [facility] [id number] [place] [address] 61059- 4382 18 Feb, 2017 Lumbar neuritis M54.16 [facility] [id number] [place] [address] 09569- 5389 16 Feb, 2017 [facility] [id number] [place] [address] 80315- 9868 Feb, [facility] [id number] [place] [address] 34511- 1222 25 Jan, 2017 [facility] [id number] [place] [address] 01625- 2678 22 Jan, 2017 Peroneal tendonitis of left lower extremity M76.72 [facility] [id number] [place] [address] 77818- 3669 Jan, Lumbar neuritis M54.16 [facility] [id number] [place] [address] 95768- 9508 Jan, [facility] [id number] [place] [address] 87094- 0806 2016 Lumbar neuritis M54.16 [facility] [id number] [place] [address] 21788- 8616 Dec, [facility] [id number] [place] [address] 86432- 7507 18 Dec, 2016 Pain in right knee M25.561 ; Lumbar neuritis M54.16 and Cervical neuritis M54.12 [facility] [id number] [place] [address] 92593- 9364 14 Dec, 2016 [facility] [id number] [place] [address] 32704- 5272 Dec, [facility] [id number] [place] [address] 87985- 0607 Nov, Lumbar neuritis M54.16 [facility] [id number] [place] [address] 61666- 7623 Nov, Bilateral primary osteoarthritis of knee M17.0 [facility] [id number] [place] [address] 65227- 7735 Nov, [facility] [id number] [place] [address] 14729- 4172 Nov, Bronchitis J40 and Plantar fasciitis M72.2 [facility] [id number] [place] [address] 70035- 2524 Nov, [facility] [id number] [place] [address] 84864- 4991 Oct, Lumbar neuritis M54.16 [facility] [id number] [place] [address] 10303- 2771 Oct, Lumbar neuritis M54.16 [facility] [id number] [place] [address] 39611- 8618 Oct, Lumbar neuritis M54.16 [facility] [id number] [place] [address] 75281- 8962 Oct, Plantar fasciitis M72.2 and Pain in right knee M25.561 [facility] [id number] [place] [address] 82005- 1977 16 Oct, 2016 Lumbar neuritis M54.16 ; Cervical neuritis M54.12 ; Other specified abdominal hernia without obstruction or gangrene K45.8 ; Heel spur, left M77.32 ; Plantar fasciitis M72.2 and Pain in right knee M25.561 [facility] [id number] [place] [address] 61319- 8782 13 Oct, 2016 [facility] [id number] [place] [address] 49584- 6720 14 Aug, 2014 [facility] [id number] [place] [address] 69024- 7294 Aug, [facility] [place] [facility] [address] [id number] [place] [address]- 5686 Apr, [facility] [place] [facility] [address] [id number] [place] 6332 Apr, [facility] [place] [facility] [address] [id number] [place] [address]- 4447 Mar, [facility] [place] [facility] [address] [id number] [place] [address]- 2531 Mar, [facility] [place] [facility] [address] [id number] [place] [address]- 9329 Feb, [facility] [place] [facility] [address] [id number] [place] [address]- 9510 Feb, [facility] [place] [facility] [address] [id number] [place] [address]- 0806 Feb, [facility] [place] [facility] [address] [id number] [place] [address]- 9192 Feb, [facility] [place] [facility] [address] [id number] [place] [address]- 9423 Feb, [facility] [place] [facility] [address] [id number] [place] [address]- 9465 Feb, [facility] [place] [facility] [address] [id number], [place] [address]- 4152 Feb, [facility] [place] [facility] [address] [id number], [place] [address]- 1762 Feb, [facility] [place] [facility] [address] [id number] [place] [address]- 2246 30 Jan, 2014 [facility] [place] [facility] [address] [id number] [place] [address]- 1857 30 Jan, 2014 [facility] [place] [facility] [address] [id number] [place] [address]- 9978 30 Jan, 2014 [facility] [place] [facility] [address] [id number] [place] [address] 2549 30 Sep, 2013 [facility] [place] [facility] [address] [id number] [place] [address] 2546 30 Sep, 2013 [facility] [place] [facility] [address] [id number] [place] [address] 2546 30 Sep, 2013 [facility] [place] [facility] [address] [id number] [place] [address] 2546 26 Sep, 2013 [facility] [place] [facility] [address] [id number] [place] [address]- 2542 26 Sep, 2013 [facility] [place] [facility] [address] [id number] [place] [address] 2547 22 Sep, 2013 [facility] [place] [facility] [address] [id number] [place] [address]- 2543 22 Sep, 2013 [facility] [place] [facility] [address] [id number] [place] [address] 2542 16 Sep, 2013 [facility] [place] [facility] [address] [id number] [place] [address]- 2543 16 Sep, 2013 [facility] [place] [facility] [address] [id number] [place] [address] 2549 16 Sep, 2013 [facility] [place] [facility] [address] [id number] [place] [address]- 2547 16 Sep, 2013 [facility] [place] [facility] [address] [id number] [place] [address] 2548 12 Sep, 2013 [facility] [place] [facility] [address] [id number] [place] [address] 2546 12 Sep, 2013 [facility] [place] [facility] [address] [id number] [place] [address] 2546 12 Sep, 2013 [facility] [place] [facility] [address] [id number] [place] [address]- 2548 12 Sep, 2013 [facility] [place] [facility] [address] [id number] [place]- 2170 09 Sep, 2013 [facility] [place] [facility] [address] [id number] [place] [address]- 9997 Jan, 2013 [facility] [place] [facility] [address] [id number] [place] [address]- 3072 Jan, 2013 [facility] [place] [facility] [address] [id number] [place] [address]- 6424 Jan, 2013 [facility] [place] [facility] [address] [id number] [place] [address]- 9041 Jan, 2013 [facility] [place] [facility] [address] [id number] [place] [address]- 6662 Jan, [facility] [place] [facility] [address] [id number] [place] [address]- 6963 Dec, [facility] [place] [facility] [address] [id number] [place] [address]- 8959 Dec, [facility] [place] [facility] [address] [id number] [place] [address]- 8435 Dec, [facility] [place] [facility] [address] [id number] [place] [address]- 9445 Dec, [facility] [place] [facility] [address] [id number] [place] [address]- 9697 Dec, [facility] [place] [facility] [address] [id number] [place] [address]- 8218 Dec, [facility] [place] [facility] [address] [id number] [place] [address]- 3454 Dec, [facility] [place] [facility] [address] [id number] [place] [address]- 7812 Dec, [facility] [place] [facility] [address] [id number] [place] [address]- 6465 Dec, [facility] [place] [facility] [address] [id number] [place] [address]- 0162 Dec, [facility] [place] [facility] [address] [id number] [place] [address]- 4581 Dec, [facility] [place] [facility] [address] [id number] [place] [address]- 7215 Dec, [facility] [place] [facility] [address] [id number] [place] [address]- 7726 Dec, [facility] [place] [facility] [address] [id number] [place] [address]- 3308 Dec, [facility] [place] [facility] [address] [id number] [place] [address]- 7584 Dec, [facility] [place] [facility] [address] [id number] [place] [address]- 7906 Dec, [facility] [place] [facility] [address] [id number] [place] [address]- 8401 Dec, [facility] [place] [facility] [address] [id number] [place] [address]- 0930 Dec, [facility] [place] [facility] [address] [id number] [place] [address]- 2181 Dec, [facility] [place] [facility] [address] [id number] [place] [address]- 9045 Nov, [facility] [place] [facility] [address] [id number] [place] [address]- 8892 Nov, [facility] [place] [facility] [address] [id number] [place] [address]- 1234 Nov, [facility] [place] [facility] [address] [id number] [place] [address]- 3209 Nov, [facility] [place] [facility] [address] [id number] [place] [address]- 6793 Nov, [facility] [place] [facility] [address] [id number] [place] [address]- 0138 Nov, [facility] [place] [facility] [address] [id number] [place] [address]- 1004 Nov, [facility] [place] [facility] [id number] [address]- 2176 Nov, [facility] [address], [place] [address]- 2876 Nov, [facility] [address], [place] [address]- 7669 Nov, [facility] [address] [place] [address]- 3451 Nov, [facility] [id number] [address]- 8099 Oct, [facility] [address], [place] [address]- 7276 Oct, [facility] [address], [place] [address]- 3328 Oct, [facility] [address] [place] [address]- 5510 Apr, IMMUNIZATIONS No Known Immunizations SOCIAL HISTORY Never Assessed REASON FOR VISIT Pain management (chronic) - SARAH Sanchez, Has laminectomy and spinal cyst removal scheduled 08/12/17 PLAN OF CARE Activity Details Follow Up with PCP Reason: VITAL SIGNS Height 70 in 2017-08-10 Weight 207.2 lbs 2017-08-10 Temperature 98.5 degrees Fahrenheit 2017-08-10 Heart Rate 68 bpm 2017-08-10 Respiratory Rate 20 2017-08-10 BMI 29.73 kg/m2 2017-08-10 Blood pressure systolic 138 mmHg 2017-08-10 Blood pressure diastolic 78 mmHg 2017-08-10 MEDICATIONS Medication Instructions Dosage Frequency Start Date End Date Duration Status Flonase 50 MCG/ACT Nasally Once a day 1 spray in each nostril 24h Active Tiotropium [place]-Olodaterol 2.5-2.5 MCG/ACT Inhalation Once a day 2 puffs 24h Active Morphine Sulfate ER 30 MG Orally twice a day 1 capsule 12h Jun, 14 days Active Gabapentin 300 MG TAKE 2 CAPSULES BY MOUTH THREE TIMES DAILY 30 Not-Taking Cymbalta 30 MG Orally Twice a day 1 capsule 12h Active Aspirin 81 mg 1 tablet by Oral route 1 time per day Dec, Not-Taking ProAir HFA 108 (90 Base) MCG/ACT INHALE 2 PUFFS INTO LUNGS EVERY FOUR HOURS NEEDED FOR SHORTNESS OF BREATH Active Norvasc 10 mg 1 tablet Once a day Orally Active Lipitor 80 mg 1 tablet by Oral route 1 time per day Active Captopril 25 MG TAKE ONE TABLET BY MOUTH TWICE DAILY 30 Active Prevacid 30 mg Orally Once a day 1 capsule 24h Dec, 30 days Active Voltaren 1 % apply 1g to affected area 2 times a day Transdermal Active RESULTS No Results PROCEDURES No Known [...]
--- OUTSIDE RECORDS SUMMARY | 2018-04-14 06:05 | XMS REPORT ---
Author Author BONNY BRANNON Organization [facility] Address [address] 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 Name Role Phone BONNY BRANNON Unavailable PROBLEMS Type Condition ICD9-CM Code ZBA76-PZ Code Onset Dates Condition Status SNOMED Code Problem Anxiety disorder, unspecified F41.9 Active 255520339 Problem Chronic pain syndrome G89.4 Active 907072543 Problem Bilateral primary osteoarthritis of knee M17.0 Active 042893036 ALLERGIES Substance Reaction Event Type Date Status Dilaudid dizziness Drug Allergy Jun, Active ENCOUNTERS Encounter Location Date Diagnosis [facility] [id number] [place] [address] 71978- 1583 Nov, Chronic pain syndrome G89.4 [facility] [id number] [place] [address] 28985- 4115 Nov, [facility] [id number] [place] [address] 73552- 8389 Oct, [facility] [id number] [place] [address] 74856- 1760 Oct, [facility] [id number] [place] [address] 34311- 9675 Oct, [facility] [id number] [place] [address] 02567- 3461 Oct, Allergic reaction to drug, subsequent encounter T78.40XD [facility] [id number] [place] [address] 01071- 2393 September, [facility] [id number] [place] [address] 99443- 0939 September, [facility] [address] [place] [address] 0858 September, Low back pain radiating to lower extremity M54.5 [facility] [id number] [address] 6938 Aug, [facility] [address] [address] 5912 Aug, [facility] [id number] [place] [address] 77204- 6368 Aug, [facility] [id number] [place] [address] 23560- 6985 Aug, [facility] [id number] [place] [address] 38700- 8353 Aug, Incisional infection, initial encounter T81.4XXA [facility] [id number] [place] [address] 69667- 8145 Aug, [facility] [id number] [place] [address] 58287- 2444 Jul, [facility] [id number] [place] [address] 60136- 7782 Jul, [facility] [address] [address] 0231 Jul, Chronic pain syndrome G89.4 [facility] [id number] [place] [address] 86508- 2346 Jul, Pre-op evaluation Z01.818 [facility] [address] [address] 5402 Jul, [facility] [id number] [place] [address] 66290- 6112 Jun, Anxiety disorder, unspecified F41.9 and Chronic pain syndrome G89.4 [facility] [address] [address]- 6537 Jun, [facility] [address] [address]- 6101 Jun, [facility] [id number] [place] [address] 99274- 8446 Jun, [facility] [address] [address]- 3236 Jun, [facility] [id number] [place] [address] 74451- 1875 Jun, Lumbar neuritis M54.16 [facility] [id number] [place] [address] 23264- 3199 May, [facility] [id number] [place] [address] 69018- 2182 May, [facility] [id number] [place] [address] 34692- 3671 May, Encounter for therapeutic drug level monitoring Z51.81 ; Encounter for immunization Z23 and Chronic pain syndrome G89.4 [facility] [id number] [place] [address] 11508- 1675 May, Lumbar neuritis M54.16 [facility] [id number] [place] [address] 14653- 9625 May, [facility] [address] [address]- 7628 Apr, Lumbar neuritis M54.16 [facility] [address] [address]- 4342 Apr, [facility] [id number] [place] [address] 61422- 2173 Mar, Lumbar neuritis M54.16 [facility] [id number] [address]- 4463 Mar, [facility] [id number] [place] [address] 18288- 9312 Mar, [facility] [id number] [place] [address] 10445- 9080 Feb, Lumbar neuritis M54.16 [facility] [id number] [place] [address] 54462- 7369 18 Feb, 2017 Lumbar neuritis M54.16 [facility] [id number] [place] [address] 09476- 5022 16 Feb, 2017 [facility] [id number] [place] [address] 31771- 7452 09 Feb, 2017 [facility] [id number] [place] [address] 53027- 8717 25 Jan, 2017 [facility] [id number] [place] [address] 12376- 0451 22 Jan, 2017 Peroneal tendonitis of left lower extremity M76.72 [facility] [id number] [place] [address] 50400- 5215 20 Jan, 2017 Lumbar neuritis M54.16 [facility] [id number] [place] [address] 37201- 4876 12 Jan, 2017 [facility] [id number] [place] [address] 09950- 2682 2016 Lumbar neuritis M54.16 [facility] [id number] [place] [address] 28489- 0920 Dec, [facility] [id number] [place] [address] 99053- 9089 18 Dec, 2016 Pain in right knee M25.561 ; Lumbar neuritis M54.16 and Cervical neuritis M54.12 [facility] [id number] [place] [address] 53437- 2844 14 Dec, 2016 [facility] [id number] [place] [address] 79993- 6477 Dec, [facility] [id number] [place] [address] 20390- 9094 Nov, Lumbar neuritis M54.16 [facility] [id number] [place] [address] 41497- 1649 Nov, Bilateral primary osteoarthritis of knee M17.0 [facility] [id number] [place] [address] 02355- 7327 Nov, [facility] [id number] [place] [address] 04576- 8765 Nov, Bronchitis J40 and Plantar fasciitis M72.2 [facility] [id number] [place] [address] 22347- 1437 Nov, [facility] [address] 59503- 8086 Oct, Lumbar neuritis M54.16 [facility] [id number] [place] [address] 46780- 4083 Oct, Lumbar neuritis M54.16 [facility] [id number] [place] [address] 21411- 5544 Oct, Lumbar neuritis M54.16 [facility] [id number] [place] [address] 27102- 1063 Oct, Plantar fasciitis M72.2 and Pain in right knee M25.561 [facility] [id number] [place] [address] 44406- 0880 16 Oct, 2016 Lumbar neuritis M54.16 ; Cervical neuritis M54.12 ; Other specified abdominal hernia without obstruction or gangrene K45.8 ; Heel spur, left M77.32 ; Plantar fasciitis M72.2 and Pain in right knee M25.561 [facility] [id number] [place] [address] 45197- 0006 13 Oct, 2016 [facility] [id number] [place] [address] 53373- 3545 14 Aug, 2014 [facility] [id number] [place] [address] 44981- 6660 Aug, [facility] [place] [facility] [address] [id number] [place] [address]- 6082 Apr, [facility] [place] [facility] [address] [id number] [place] 9517 Apr, [facility] [place] [facility] [address] [id number] [place] [address]- 0029 Mar, [facility] [place] [facility] [address] [id number] [place] [address]- 9556 Mar, [facility] [place] [facility] [address] [id number] [place] [address]- 9450 Feb, [facility] [place] [facility] [address] [id number] [place] [address]- 6223 Feb, [facility] [place] [facility] [address] [id number] [place] [address]- 0855 Feb, [facility] [place] [facility] [address] [id number] [place] [address]- 4499 Feb, [facility] [place] [facility] [address] [id number] [place] [address]- 8203 Feb, [facility] [place] [facility] [address] [id number] [address]- 0914 Feb, [facility] [place] [facility] [address] [id number] [address]- 8979 Feb, [facility] [place] [facility] [address] [id number] [address]- 6924 Feb, [facility] [place] [facility] [address] [id number] [address]- 1195 Jan, [facility] [place] [facility] [address] [id number] [place] [address]- 1622 30 Jan, 2014 [facility] [place] [facility] [address] [id number] [place] [address]- 0495 30 Jan, 2014 [facility] [place] [facility] [address] [id number] [place] [address] 2540 30 Sep, 2013 [facility] [place] [facility] [address] [id number] [place] [address] 2546 30 Sep, 2013 [facility] [place] [facility] [address] [id number] [place] [address] 2546 30 Sep, 2013 [facility] [place] [facility] [address] [id number] [place] [address] 2546 26 Sep, 2013 [facility] [place] [facility] [address] [id number] [place] [address]- 254 26 Sep, 2013 [facility] [place] [facility] [address] [id number] [place] [address] 2544 22 Sep, 2013 [facility] [place] [facility] [address] [id number] [place] [address]- 254 22 Sep, 2013 [facility] [place] [facility] [address] [id number] [place] [address] 2547 16 Sep, 2013 [facility] [place] [facility] [address] [id number] [place] [address] 2543 16 Sep, 2013 [facility] [place] [facility] [address] [id number] [place] [address] 2547 16 Sep, 2013 [facility] [place] [facility] [address] [id number] [place] [address]- 2542 16 Sep, 2013 [facility] [place] [facility] [address] [id number] [place] [address] 2541 12 Sep, 2013 [facility] [place] [facility] [address] [id number] [place] [address] 2541 12 Sep, 2013 [facility] [place] [facility] [address] [id number] [place] [address] 2546 12 Sep, 2013 [facility] [place] [facility] [address] [id number] [place] [address]- 2546 12 Sep, 2013 [facility] [place] [facility] [address] [id number] [place] [address]- 9253 09 Sep, 2013 [facility] [place] [facility] [address] [id number] [place] [address]- 8376 Jan, 2013 [facility] [place] [facility] [address] [id number] [place] [address]- 3028 Jan, [facility] [place] [facility] [address] [id number] [place] [address]- 6026 Jan, 2013 [facility] [place] [facility] [address] [id number] [place] [address]- 0933 Jan, 2013 [facility] [place] [facility] [address] [id number] [place] [address]- 3171 Jan, [facility] [place] [facility] [address] [id number] [place] [address]- 6871 Dec, [facility] [place] [facility] [address] [id number] [place] [address]- 7856 Dec, [facility] [place] [facility] [address] [id number] [place] [address]- 5773 Dec, [facility] [place] [facility] [address] [id number] [place] [address]- 7270 Dec, [facility] [place] [facility] [address] [id number] [place] [address]- 3605 Dec, [facility] [place] [facility] [address] [id number] [place] [address]- 2822 Dec, [facility] [place] [facility] [address] [id number] [place] [address]- 1604 Dec, [facility] [place] [facility] [address] [id number] [place] [address]- 2231 Dec, [facility] [place] [facility] [address] [id number] [place] [address]- 9644 Dec, [facility] [place] [facility] [address] [id number] [place] [address]- 2677 Dec, [facility] [place] [facility] [address] [id number] [place] [address]- 3678 Dec, [facility] [place] [facility] [address] [id number] [place] [address]- 6102 Dec, [facility] [place] [facility] [address] [id number] [place] [address]- 2095 Dec, [facility] [place] [facility] [address] [id number] [place] [address]- 4668 Dec, [facility] [place] [facility] [address] [id number] [place] [address]- 0542 Dec, [facility] [place] [facility] [address] [id number] [place] [address]- 8151 Dec, [facility] [place] [facility] [address] [id number] [place] [address]- 6178 Dec, [facility] [place] [facility] [address] [id number] [place] [address]- 4268 Dec, [facility] [place] [facility] [address] [id number] [place] [address]- 7920 Dec, [facility] [place] [facility] [address] [id number] [place] [address]- 0175 Nov, [facility] [place] [facility] [address] [id number] [place] [address]- 9855 Nov, [facility] [place] [facility] [address] [id number] [place] [address]- 1786 Nov, [facility] [place] [facility] [address] [id number] [place] [address]- 9981 Nov, [facility] [place] [facility] [address] [id number] [place] [address]- 8066 Nov, [facility] [place] [facility] [address] [id number] [place] [address]- 7586 Nov, [facility] [place] [facility] [address] [id number] [place] [address]- 9742 Nov, [facility] [place] [facility] [id number] [address] 9796 Nov, [facility] [address] [address]- 6188 Nov, [facility] [address] [address]- 2662 Nov, [facility] [address] [address]- 2815 Nov, [facility] [address] [address]- 5785 Oct, [facility] [id number] [place] [address] 02231- 5940 Oct, [facility] [address] [address]- 9529 Oct, [facility] [address] [address]- 5588 Apr, IMMUNIZATIONS No Known Immunizations SOCIAL HISTORY Never Assessed REASON FOR VISIT Pain management (chronic)- SARAH Sanchez PLAN OF CARE Activity Details Follow Up 6 Weeks Reason:chronic pain VITAL SIGNS Height 70 in 2017-07-13 Weight 207.8 lbs 2017-07-13 Temperature 98.4 degrees Fahrenheit 2017-07-13 Heart Rate 92 bpm 2017-07-13 Respiratory Rate 20 2017-07-13 BMI 29.81 kg/m2 2017-07-13 Blood pressure systolic 132 mmHg 2017-07-13 Blood pressure diastolic 88 mmHg 2017-07-13 MEDICATIONS Medication Instructions Dosage Frequency Start Date End Date Duration Status Captopril 25 MG TAKE ONE TABLET BY MOUTH TWICE DAILY 30 Active ProAir HFA 108 (90 Base) MCG/ACT INHALE 2 PUFFS INTO LUNGS EVERY FOUR HOURS NEEDED FOR SHORTNESS OF BREATH Active Voltaren 1 % apply 1g to affected area 2 times a day Transdermal Active Prevacid 30 mg Orally Once a day 1 capsule 24h Dec, 30 days Active Diazepam 10 MG Orally Once a day, at bed time 1 tablet 28 days Active Tiotropium Lenox-Olodaterol 2.5-2.5 MCG/ACT Inhalation Once a day 2 puffs 24h Active Norvasc 10 mg 1 tablet Once a day Orally Active Gabapentin 300 MG TAKE 2 CAPSULES BY MOUTH THREE TIMES DAILY 30 Active Morphine Sulfate ER 30 MG Orally twice a day 1 capsule 12h Jun, Jul, 14 days Active Morphine Sulfate ER 15 MG Orally once a day in the morning (take with 30mg tablet) 1 tablet Jun, Jul, 14 days Active Cymbalta 30 MG Orally Twice a day 1 capsule 12h Active Lipitor 80 mg 1 tablet by Oral route 1 time per day Active Cyclobenzaprine HCl 10 MG TAKE 1 TABLET BY MOUTH THREE TIMES DAILY 30 Active Aspirin 81 mg 1 tablet by Oral route 1 time per day Dec, Active Flonase 50 MCG/ACT Nasally Once a day 1 spray in each nostril 24h Active RESULTS No Results PROCEDURES No Known [...]
--- OUTSIDE RECORDS SUMMARY | 2018-04-14 06:06 | XMS REPORT ---
Author Author PREETHI YIN Organization [facility] Address [address] [place] [address] Care Team Providers Care Rug Clipper Name Role Phone PREETHI YIN Unavailable PROBLEMS Type Condition ICD9-CM Code [id number] Code Onset Dates Condition Status SNOMED Code Problem Chronic airway obstruction, not elsewhere classified 496 Active 46431400 Problem Unspecified essential hypertension 401.9 Active 18666550 Problem Occlusion and stenosis of carotid artery without mention of cerebral infarction 433.10 Active 960841074507964 Problem Anxiety disorder, unspecified F41.9 Active 681916924 Problem Chronic pain syndrome G89.4 Active 570464043 Problem Anxiety state, unspecified 300.00 Active 297105512 Problem Chronic pain syndrome 338.4 Active 593559186 Problem Bilateral primary osteoarthritis of knee M17.0 Active 546664731 Problem Other and unspecified hyperlipidemia 272.4 Active 69715256 Problem Need for prophylactic vaccination and inoculation, Influenza V04.81 Active 866043369 Problem Headache 784.0 Active 33231583 Problem Encounter for long-term (current) use of other medications V58.69 Active 452094966 Problem Syncope and collapse 780.2 Active 206877709 Problem Personal history of tobacco use, presenting hazards to health V15.82 Active 4461260904026 Problem Cervicalgia 723.1 Active 51512345 ALLERGIES No Information ENCOUNTERS Encounter Location Date Diagnosis [facility] [id number], [place] [address] September, [facility] [id number] [place] [address] 66769- 9100 September, Low back pain radiating to lower extremity M54.5 [facility] [address] [address] Aug, [facility] [id number] [place] [address] 65500- 8470 Aug, [facility] [address], [place] [address] 1[address] Aug, [facility] [id number] [place] [address] 52533- 8996 Aug, [facility] [address] [address] Aug, Incisional infection, initial encounter T81.4XXA [facility] [id number] [place] [address] 62321- 4233 Aug, [facility] [id number] [place] [address] 74626- 3176 Jul, [facility] [id number] [place] [address] 73888- 4743 Jul, [facility] [id number] [place] [address] 18343- 3218 Jul, Chronic pain syndrome G89.4 [facility] [id number] [place] [address] 14114- 7955 Jul, Pre-op evaluation Z01.818 [facility] [id number] [place] [address] 02734- 2525 Jul, [facility] [id number] [address] Jun, Anxiety disorder, unspecified F41.9 and Chronic pain syndrome G89.4 [facility] [address] [address] 5890 Jun, [facility] [id number] [place] [address] 79863- 1986 Jun, [facility] [address] [address] 8936 Jun, [facility] [id number] [place] [address] 09223- 8883 Jun, [facility] [id number] [place] [address] 78937- 6776 Jun, Lumbar neuritis M54.16 [facility] [id number] [place] [address] 61913- 7473 May, [facility] [id number] [place] [address] 92589- 4750 May, [facility] [id number] [place] [address] 14179- 2750 May, Encounter for therapeutic drug level monitoring Z51.81 ; Encounter for immunization Z23 and Chronic pain syndrome G89.4 [facility] [id number] [place] [address] 54735- 4719 May, Lumbar neuritis M54.16 [facility] [id number] [place] [address] 35486- 0191 May, [facility] [id number] [place] [address] 60211- 6889 Apr, Lumbar neuritis M54.16 [facility] [id number] [place] [address] 68919- 6519 Apr, [facility] [id number] [place] [address] 68780- 0820 Mar, Lumbar neuritis M54.16 [facility] [id number] [place] [address] 96318- 3443 Mar, [facility] [id number] [place] [address] 88146- 8762 Mar, [facility] [id number] [place] [address] 01945- 9282 Feb, Lumbar neuritis M54.16 [facility] [id number] [place] [address] 37001- 2639 Feb, Lumbar neuritis M54.16 [facility] [id number], [place] [address] 0881 16 Feb, 2017 [facility] [id number] [place] [address] 05859- 6165 Feb, [facility] [id number] [place] [address] 76690- 2727 25 Jan, 2017 [facility] [id number] [place] [address] 60273- 4300 22 Jan, 2017 Peroneal tendonitis of left lower extremity M76.72 [facility] [id number] [place] [address] 54177- 2441 20 Jan, 2017 Lumbar neuritis M54.16 [facility] [id number] [place] [address] 78866- 9265 12 Jan, 2017 [facility] [id number] [place] [address] 97368- 1982 Dec, Lumbar neuritis M54.16 [facility] [id number] [place] [address] 45740- 8566 Dec, [facility] [id number] [place] [address] 24256- 6050 Dec, Pain in right knee M25.561 ; Lumbar neuritis M54.16 and Cervical neuritis M54.12 [facility] [id number] [place] [address] 20247- 1431 Dec, [facility] [id number] [place] [address] 19378- 8995 Dec, [facility] [id number] [place] [address] 83387- 4061 Nov, Lumbar neuritis M54.16 [facility] [id number] [place] [address] 95235- 5029 Nov, Bilateral primary osteoarthritis of knee M17.0 [facility] [id number] [place] [address] 75523- 5469 Nov, [facility] [id number] [place] [address] 72337- 1160 Nov, Bronchitis J40 and Plantar fasciitis M72.2 [facility] [id number] [place] [address] 22771- 7662 Nov, [facility] [id number] [place] [address] 70924- 5560 Oct, Lumbar neuritis M54.16 [facility] [id number] [place] [address] 21332- 8161 Oct, Lumbar neuritis M54.16 [facility] [id number] [place] [address] 32615- 1963 Oct, Lumbar neuritis M54.16 [facility] [id number] [place] [address] 77710- 4665 Oct, Plantar fasciitis M72.2 and Pain in right knee M25.561 [facility] [id number] [place] [address] 68965- 5685 16 Oct, 2016 Lumbar neuritis M54.16 ; Cervical neuritis M54.12 ; Other specified abdominal hernia without obstruction or gangrene K45.8 ; Heel spur, left M77.32 ; Plantar fasciitis M72.2 and Pain in right knee M25.561 [facility] [id number] [place] [address] 23846- 7567 13 Oct, 2016 [facility] [id number] [place] [address] 72027- 0289 Aug, [facility] [id number] [place] [address] 83690- 5087 Aug, [facility] [id number] [place] [address] 86578- 4882 Apr, [facility] [id number] [place] [address] 52227- 1852 Apr, [facility] [place] [facility] [address] [facility] [id number] [place] [address]- 6690 13 Mar, 2014 [facility] [place] [facility] [address] [id number] [place] [address]- 2355 Mar, [facility] [place] [facility] [address] [id number] [place] [address]- 4066 Feb, [facility] [place] [facility] [address] [id number] [place] [address]- 4058 Feb, [facility] [place] [facility] [address] [id number] [place] [address]- 5561 Feb, [facility] [place] [facility] [address] [id number] [place] [address]- 4241 Feb, [facility] [place] [facility] [address] [id number] [place] [address]- 5588 Feb, [facility] [place] [facility] [address] [id number] [place] [address]- 7883 Feb, 2013 [facility] [place] [facility] [address] [id number] [place] [address]- 9805 Feb, [facility] [place] [facility] [address] [id number] [place] [address]- 7454 Feb, [facility] [place] [facility] [address] [id number] [place] [address]- 0394 30 Jan, 2013 [facility] [place] [facility] [address] [id number] [place] [address]- 6965 30 Sep, 2013 [facility] [place] [facility] [address] [id number] [place] [address]- 2546 30 Sep, 2013 [facility] [place] [facility] [address] [id number] [place] [address]- 3706 30 Sep, 2013 [facility] [place] [facility] [address] [id number] [place] [address]- 1076 30 Sep, 2013 [facility] [place] [facility] [address] [id number] [place] [address]- 3247 30 Sep, 2013 [facility] [place] [facility] [address] [id number] [place] [address]- 2424 26 Sep, 2013 [facility] [place] [facility] [address] [id number] [place] [address] 2548 26 Sep, 2013 [facility] [place] [facility] [address] [id number] [place] [address]- 5521 22 Sep, 2013 [facility] [place] [facility] [address] [id number] [place] [address]- 9117 22 Sep, 2013 [facility] [place] [facility] [address] [id number] [place] [address]- 9672 16 Sep, 2013 [facility] [place] [facility] [address] [id number] [place] [address]- 9037 16 Sep, 2013 [facility] [place] [facility] [address] [id number] [place] [address]- 0782 16 Jan, 2013 [facility] [place] [facility] [address] [id number] [place] [address]- 6069 16 Sep, 2013 [facility] [place] [facility] [address] [id number] [place] [address]- 9914 12 Sep, 2013 [facility] [place] [facility] [address] [id number] [place] [address]- 7993 12 Sep, 2013 [facility] [place] [facility] [address] [id number] [place] [address]- 1026 12 Sep, 2013 [facility] [place] [facility] [address] [id number] [address]- 0780 12 Sep, 2013 [facility] [place] [facility] [address] [id number] [place] [address]- 254 09 Sep, 2013 [facility] [place] [facility] [address] [id number] [place] [address]- 0922 09 Sep, 2013 [facility] [place] [facility] [address] [id number] [place] [address]- 5369 09 Sep, 2013 [facility] [place] [facility] [address] [id number] [place] [address]- 7049 Jan, [facility] [place] [facility] [address] [id number] [place] [address]- 2300 Jan, [facility] [place] [facility] [address] [id number] [place] [address]- 8296 Jan, [facility] [place] [facility] [address] [id number] [place] [address]- 6172 Dec, [facility] [place] [facility] [address] [id number] [place] [address]- 1270 Dec, [facility] [place] [facility] [address] [id number] [place] [address]- 5505 Dec, [facility] [place] [facility] [address] [id number] [place] [address]- 3343 Dec, [facility] [place] [facility] [address] [id number] [place] [address]- 1267 Dec, [facility] [place] [facility] [address] [id number] [place] [address]- 9454 Dec, [facility] [place] [facility] [address] [id number] [place] [address]- 1347 Dec, [facility] [place] [facility] [address] [id number] [place] [address]- 8607 Dec, [facility] [place] [facility] [address] [id number] [place] [address]- 2868 Dec, [facility] [place] [facility] [address] [id number] [place] [address]- 8954 Dec, [facility] [place] [facility] [address] [id number] [place] [address]- 3413 Dec, [facility] [place] [facility] [address] [id number] [place] [address]- 6286 Dec, [facility] [place] [facility] [address] [id number] [place] [address]- 3036 Dec, [facility] [place] [facility] [address] [id number] [place] [address]- 1989 Dec, [facility] [place] [facility] [address] [id number] [place] [address]- 2633 Dec, [facility] [place] [facility] [address] [id number] [place] [address]- 4633 Dec, [facility] [place] [facility] [address] [id number] [place] [address]- 5583 Dec, [facility] [place] [facility] [address] [id number] [place] [address]- 9736 Dec, [facility] [place] [facility] [address] [id number] [place] [address]- 9517 Dec, [facility] [place] [facility] [address] [id number] [place] [address]- 7005 Nov, [facility] [place] [facility] [address] [id number] [place] [address]- 8592 Nov, [facility] [place] [facility] [address] [id number] [place] [address]- 2520 Nov, [facility] [place] [facility] [address] [id number] [place] [address]- 0817 Nov, [facility] [place] [facility] [address] [id number] [place] [address]- 5792 Nov, [facility] [place] [facility] [address] [id number] [place] [address]- 9466 Nov, [facility] [place] [facility] [address] [id number] [place] [address]- 4879 Nov, [facility] [place] [facility] [address] [id number] [place] [address]- 1619 Nov, [facility] [place] [facility] [address] [id number] [place] [address]- 1586 Nov, [facility] [place] [facility] [address] [id number] [place] [address]- 0002 Nov, [facility] [address] [facility] [id number] [place] [address]- 3486 Nov, [facility] [address] [facility] [id number], [place] [address]- 4226 Oct, [facility] [address] [facility] [id number] [address] 2546 Oct, [facility] [address] [facility] [id number], [place] [address] 2546 Oct, [facility] [address] [facility] [id number], [place] [address]- 5676 Apr, IMMUNIZATIONS No Known Immunizations SOCIAL HISTORY Never Assessed REASON FOR VISIT Controlled med refill PLAN OF CARE VITAL SIGNS MEDICATIONS Medication Instructions Dosage Frequency Start Date End Date Duration Status Hydrocodone-Acetaminophen 10-325 MG Orally every 8 hours, PRN 1 tablet as needed Feb, 28 days Active RESULTS No Results [...]
--- OUTSIDE RECORDS SUMMARY | 2018-04-14 06:06 | XMS REPORT ---
Author Author PREETHI YIN Organization [facility] Address [address] [place] [address] Care Team Providers Care Meat Puller Name Role Phone PREETHI YIN Unavailable PROBLEMS Type Condition ICD9-CM Code WGP35-XZ Code Onset Dates Condition Status SNOMED Code Problem Chronic airway obstruction, not elsewhere classified 496 Active 03246470 Problem Unspecified essential hypertension 401.9 Active 25632444 Problem Occlusion and stenosis of carotid artery without mention of cerebral infarction 433.10 Active 250467881791145 Problem Anxiety disorder, unspecified F41.9 Active 681626634 Problem Chronic pain syndrome G89.4 Active 601752679 Problem Anxiety state, unspecified 300.00 Active 445609371 Problem Chronic pain syndrome 338.4 Active 638165981 Problem Bilateral primary osteoarthritis of knee M17.0 Active 213918630 Problem Other and unspecified hyperlipidemia 272.4 Active 29458175 Problem Need for prophylactic vaccination and inoculation, Influenza V04.81 Active 042126901 Problem Headache 784.0 Active 39831365 Problem Encounter for long-term (current) use of other medications V58.69 Active 240012961 Problem Syncope and collapse 780.2 Active 346366629 Problem Personal history of tobacco use, presenting hazards to health V15.82 Active 6145455303675 Problem Cervicalgia 723.1 Active 76092710 ALLERGIES No Information ENCOUNTERS Encounter Location Date Diagnosis [facility] [id number] [address] Aug, [facility] [id number] [place] [address] 03372- 2586 Aug, Incisional infection, initial encounter T81.4XXA [facility] [id number] [address] Aug, [facility] [id number] [place] [address] 44208- 4841 Jul, [facility] [id number] [place] [address] 25013- 9385 Jul, [facility] [id number] [place] [address] 75212- 8399 Jul, Chronic pain syndrome G89.4 [facility] [id number] [place] [address] 96930- 6858 Jul, Pre-op evaluation Z01.818 [facility] [id number] [place] [address] 11988- 3290 Jul, [facility] [id number] [place] [address] 48031- 5350 Jun, Anxiety disorder, unspecified F41.9 and Chronic pain syndrome G89.4 [facility] [id number] [place] [address] 74250- 9756 Jun, [facility] [id number] [place] [address] 57983- 3172 Jun, [facility] [id number] [place] [address] 81224- 3201 Jun, [facility] [id number] [place] [address] 12198- 7060 Jun, [facility] [id number] [place] [address] 39891- 4030 Jun, Lumbar neuritis M54.16 [facility] [id number] [place] [address] 65977- 5974 May, [facility] [id number] [place] [address] 83307- 5471 May, [facility] [id number] [place] [address] 08317- 1130 May, Encounter for therapeutic drug level monitoring Z51.81 ; Encounter for immunization Z23 and Chronic pain syndrome G89.4 [facility] [address] [address] May, Lumbar neuritis M54.16 [facility] [id number] [place] [address] 49956- 7656 May, [facility] [id number] [place] [address] 64556- 8867 Apr, Lumbar neuritis M54.16 [facility] [id number] [place] [address] 23000- 3976 Apr, [facility] [id number] [place] [address] 87954- 6492 Mar, Lumbar neuritis M54.16 [facility] [id number] [place] [address] 59631- 8426 Mar, [facility] [id number] [place] [address] 04373- 2281 Mar, [facility] [id number] [place] [address] 19502- 6068 Feb, Lumbar neuritis M54.16 [facility] [id number] [place] [address] 55309- 8117 18 Feb, 2017 Lumbar neuritis M54.16 [facility] [address] [place] [address] 59789- 1026 16 Feb, 2017 [facility] [id number] [place] [address] 94705- 6772 09 Feb, 2017 [facility] [id number] [place] [address] 52072- 6291 25 Jan, 2017 [facility] [id number] [place] [address] 65058- 4746 22 Sep2016 Peroneal tendonitis of left lower extremity M76.72 [facility] [address], [place] [address]- 4406 20 Jan, 2017 Lumbar neuritis M54.16 [facility] [id number] [place] [address] 07574- 5897 Jan, [facility] [id number] [place] [address] 84062- 6842 Dec, Lumbar neuritis M54.16 [facility] [id number] [place] [address] 46759- 9330 Dec, [facility] [address] 18012- 5229 Dec, Pain in right knee M25.561 ; Lumbar neuritis M54.16 and Cervical neuritis M54.12 [facility] [id number] [place] [address] 90143- 2201 Dec, [facility] [id number] [place] [address] 44843- 4927 Dec, [facility] [address] 32339- 2733 Nov, Lumbar neuritis M54.16 [facility] [id number] [place] [address] 48623- 7430 Nov, Bilateral primary osteoarthritis of knee M17.0 [facility] [id number] [place] [address] 80349- 7148 Nov, [facility] [id number] [place] [address] 48364- 5640 Nov, Bronchitis J40 and Plantar fasciitis M72.2 [facility] [id number] [place] [address] 35868- 3284 Nov, [facility] [address] 34806- 1084 Oct, Lumbar neuritis M54.16 [facility] [id number] [place] [address] 23207- 2786 Oct, Lumbar neuritis M54.16 [facility] [address] [place] [address]- 1356 28 Oct, 2016 Lumbar neuritis M54.16 [facility] [id number] [place] [address] 89126- 8486 26 Oct, 2016 Plantar fasciitis M72.2 and Pain in right knee M25.561 [facility] [id number] [place] [address] 59603- 5829 16 Oct, 2016 Lumbar neuritis M54.16 ; Cervical neuritis M54.12 ; Other specified abdominal hernia without obstruction or gangrene K45.8 ; Heel spur, left M77.32 ; Plantar fasciitis M72.2 and Pain in right knee M25.561 [facility] [id number] [place] [address] 09589- 9827 13 Oct, 2016 [facility] [id number] [place] [address] 99065- 0530 14 Aug, 2014 [facility] [id number] [place] [address] 94886- 3020 Aug, [facility] [id number] [place] [address] 58231- 9770 Apr, [facility] [id number] [place] [address] 39864- 8712 Apr, [facility] [id number] [place] [address] 26861- 7836 Mar, [facility] [id number] [place] [address] 99724- 3666 Mar, [facility] [id number] [place] [address] 94969- 9148 Feb, [facility] [id number] [place] [address] 50327- 6482 Feb, [facility] [id number] [place] [address] 23847- 3817 Feb, [facility] [id number] [place] [address] 98965- 9558 09 Feb, 2013 [facility] [place] [facility] [address] [id number] [place] [address]- 7985 07 Feb, 2013 [facility] [place] [facility] [address] [id number] [place] [address]- 4630 07 Feb, 2013 [facility] [place] [facility] [address] [id number] [place] [address]- 1810 07 Feb, 2013 [facility] [place] [facility] [address] [id number] [place] [address]- 0835 07 Feb, 2013 [facility] [place] [facility] [address] [id number] [place] [address]- 3623 30 Sep, 2013 [facility] [place] [facility] [address] [id number] [place] [address]- 2127 30 Sep, 2013 [facility] [place] [facility] [address] [id number] [place] [address]- 1136 30 Sep, 2013 [facility] [place] [facility] [address] [id number] [place] [address]- 7769 30 Sep, 2013 [facility] [place] [facility] [address] [id number] [place] [address]- 0138 30 Sep, 2013 [facility] [place] [facility] [address] [id number] [place] [address]- 2541 30 Sep, 2013 [facility] [place] [facility] [address] [id number] [place] [address] 2540 26 Sep, 2013 [facility] [place] [facility] [address] [id number] [address]- 2546 26 Sep, 2013 [facility] [place] [facility] [address] [id number] [place] [address] 2541 22 Sep, 2013 [facility] [place] [facility] [address] [id number] [place] [address]- 2549 22 Sep, 2013 [facility] [place] [facility] [address] [id number] [place] [address]- 5106 16 Sep, 2013 [facility] [place] [facility] [address] [id number] [place] [address]- 4930 16 Sep, 2013 [facility] [place] [facility] [address] [id number] [place] [address]- 2337 16 Jan, 2013 [facility] [place] [facility] [address] [id number] [place] [address]- 2546 16 Jan, 2013 [facility] [place] [facility] [address] [id number] [place] [address]- 2426 12 Jan, 2013 [facility] [place] [facility] [address] [id number] [place] [address]- 4840 12 Jan, 2013 [facility] [place] [facility] [address] [id number] [place] [address]- 9920 12 Jan, 2013 [facility] [place] [facility] [address] [id number] [place] [address]- 0760 12 Jan, 2013 [facility] [place] [facility] [address] [id number] [place] [address]- 8852 09 Jan, 2013 [facility] [place] [facility] [address] [id number] [place] [address]- 5542 09 Jan, 2013 [facility] [place] [facility] [address] [id number] [place] [address]- 8644 Jan, 2013 [facility] [place] [facility] [address] [id number] [place] [address]- 4625 Jan, 2013 [facility] [place] [facility] [address] [id number] [place] [address]- 2542 Jan, 2013 [facility] [place] [facility] [address] [id number] [place] [address]- 2541 Jan, 2013 [facility] [place] [facility] [address] [id number] [place] [address]- 8369 Dec, [facility] [place] [facility] [address] [id number] [place] [address]- 4581 Dec, [facility] [place] [facility] [address] [id number] [place] [address]- 1973 Dec, [facility] [place] [facility] [address] [id number] [place] [address]- 2154 Dec, [facility] [place] [facility] [address] [id number] [place] [address]- 1631 Dec, [facility] [place] [facility] [address] [id number] [place] [address]- 9815 Dec, [facility] [place] [facility] [address] [id number] [place] [address]- 9352 Dec, [facility] [place] [facility] [address] [id number] [place] [address]- 2205 Dec, [facility] [place] [facility] [address] [id number] [place] [address]- 3530 Dec, [facility] [place] [facility] [address] [id number] [place] [address]- 1071 Dec, [facility] [place] [facility] [address] [id number] [place] [address]- 6916 Dec, [facility] [place] [facility] [address] [id number] [place] [address]- 9238 Dec, [facility] [place] [facility] [address] [id number] [place] [address]- 9914 Dec, [facility] [place] [facility] [address] [id number] [place] [address]- 2329 Dec, [facility] [place] [facility] [address] [id number] [place] [address]- 9582 Dec, [facility] [place] [facility] [address] [id number] [place] [address]- 4451 Dec, [facility] [place] [facility] [address] [id number] [place] [address]- 2464 Dec, [facility] [place] [facility] [address] [id number] [place] [address]- 4488 Dec, [facility] [place] [facility] [address] [id number] [place] [address]- 9733 Dec, [facility] [address] [id number] [place] [address]- 9281 Nov, [facility] [address] [id number] [place] [address]- 5906 Nov, [facility] [address] [id number] [place] [address]- 2730 Nov, [facility] [address] [id number] [place] [address]- 8411 Nov, [facility] [address] [id number] [place] [address]- 7935 Nov, [facility] [address] [id number] [place] [address]- 2308 Nov, [facility] [address] [facility] [id number] [place] [address]- 9951 Nov, [facility] [address] [id number] [place] [address]- 5360 Nov, [facility] [address] [facility] [id number] [place] [address]- 3164 Nov, [facility] [address] [facility] [id number] [place] [address]- 0435 Nov, [facility] [address] [facility] [id number] [place] [address]- 8440 Nov, [facility] [address] [facility] [id number] [place] [address]- 2561 Oct, [facility] [address] [id number] [place] [address]- 2317 Oct, [facility] [address] [facility] [id number] [place] [address]- 2068 Oct, [facility] [address] [facility] [id number] [place] [address]- 5132 Apr, IMMUNIZATIONS No Known Immunizations SOCIAL HISTORY Never Assessed REASON FOR VISIT Refill request PLAN OF CARE VITAL SIGNS MEDICATIONS Unknown [...] Surgical History appendectomy Surgical History Hernia Repair Hospitalization History Surgery(s) only
--- OUTSIDE RECORDS SUMMARY | 2018-04-14 06:06 | XMS REPORT ---
Author Author ALEX PIERSON Organization [facility] [place] Address [address] [place] [address] Care Team Providers Care Knife Finisher Name Role Phone ALEX PIERSON Unavailable PROBLEMS Type Condition ICD9-CM Code CEA02-TQ Code Onset Dates Condition Status SNOMED Code Problem Anxiety disorder, unspecified F41.9 Active 529564843 Problem Chronic pain syndrome G89.4 Active 223391975 Problem Bilateral primary osteoarthritis of knee M17.0 Active 766140014 ALLERGIES Substance Reaction Event Type Date Status Dilaudid dizziness Drug Allergy Jul, Active ENCOUNTERS Encounter Location Date Diagnosis [facility] [id number] [place] [address] 75751- 0283 Nov, Chronic pain syndrome G89.4 [facility] [place] [id number] [place] [address] 02742- 1677 Nov, [facility] [place] [id number] [place] [address] 88854- 0435 Oct, [facility] [place] [id number] [place] [address] 44569- 9657 Oct, [facility] [place] [id number] [place] [address] 04240- 6007 Oct, [facility] [place] [id number] [place] [address] 34589- 7714 Oct, Allergic reaction to drug, subsequent encounter T78.40XD [facility] [place] [id number] [place] [address] 03169- 8376 September, [facility] [place] [id number] [place] [address] 86621- 9476 September, [facility] [place] [address] [place] [address]- 8182 September, Low back pain radiating to lower extremity M54.5 [facility] [place] [id number] [address] 1773 Aug, [facility] [place] [address] [address] 1521 Aug, [facility] [place] [id number] [place] [address] 84447- 1658 Aug, [facility] [place] [id number] [place] [address] 18660- 2104 Aug, [facility] [place] [id number] [place] [address] 30972- 2500 Aug, Incisional infection, initial encounter T81.4XXA [facility] [place] [id number] [place] [address] 94804- 4109 Aug, [facility] [place] [id number] [place] [address] 34195- 8581 Jul, [facility] [place] [id number] [place] [address] 63208- 5791 Jul, [facility] [place] [address] [place] [address]- 4537 Jul, Chronic pain syndrome G89.4 [facility] [place] [id number] [place] [address] 11916- 1242 Jul, Pre-op evaluation Z01.818 [facility] [place] [address], [place] [address]- 8756 Jul, [facility] [place] [id number] [place] [address] 25899- 1278 Jun, Anxiety disorder, unspecified F41.9 and Chronic pain syndrome G89.4 [facility] [place] [address], [place] [address]- 0214 Jun, [facility] [place] [address] [place] [address]- 6832 Jun, [facility] [place] [id number] [place] [address] 72362- 0536 Jun, [facility] [place] [address] [address]- 1186 Jun, [facility] [place] [id number] [place] [address] 12324- 4222 Jun, Lumbar neuritis M54.16 [facility] [place] [id number] [place] [address] 50716- 4958 May, [facility] [place] [id number] [place] [address] 52689- 8287 May, [facility] [place] [id number] [place] [address] 13740- 9185 May, Encounter for therapeutic drug level monitoring Z51.81 ; Encounter for immunization Z23 and Chronic pain syndrome G89.4 [facility] [place] [id number] [place] [address] 56916- 4851 May, Lumbar neuritis M54.16 [facility] [place] [id number] [place] [address] 79095- 5053 May, [facility] [place] [address], [place] [address]- 1814 Apr, Lumbar neuritis M54.16 [facility] [place] [address], [place] [address]- 6130 Apr, [facility] [place] [id number] [place] [address] 80372- 5996 Mar, Lumbar neuritis M54.16 [facility] [place] [id number] [address]- 6451 Mar, [facility] [place] [id number] [place] [address] 23106- 2883 Mar, [facility] [place] [id number] [place] [address] 06298- 9058 Feb, Lumbar neuritis M54.16 [facility] [place] [id number] [place] [address] 76924- 3929 18 Feb, 2017 Lumbar neuritis M54.16 [facility] [place] [id number] [place] [address] 32435- 0127 16 Feb, 2017 [facility] [place] [id number] [place] [address] 52962- 4263 09 Feb, 2017 [facility] [place] [id number] [place] [address] 47165- 2235 25 Jan, 2017 [facility] [place] [id number] [place] [address] 81134- 5174 22 Jan, 2017 Peroneal tendonitis of left lower extremity M76.72 [facility] [place] [id number] [place] [address] 14721- 1826 20 Jan, 2017 Lumbar neuritis M54.16 [facility] [place] [id number] [place] [address] 48881- 7427 12 Jan, 2017 [facility] [place] [id number] [place] [address] 43594- 0715 2016 Lumbar neuritis M54.16 [facility] [place] [id number] [place] [address] 50097- 7919 Dec, [facility] [place] [id number] [place] [address] 72974- 2766 18 Dec, 2016 Pain in right knee M25.561 ; Lumbar neuritis M54.16 and Cervical neuritis M54.12 [facility] [place] [id number] [place] [address] 87052- 7451 14 Dec, 2016 [facility] [place] [id number] [place] [address] 68006- 2748 Dec, [facility] [place] [id number] [place] [address] 28108- 9022 Nov, Lumbar neuritis M54.16 [facility] [place] [id number] [place] [address] 81942- 7354 Nov, Bilateral primary osteoarthritis of knee M17.0 [facility] [place] [id number] [place] [address] 04047- 0066 Nov, [facility] [place] [id number] [place] [address] 42305- 9218 Nov, Bronchitis J40 and Plantar fasciitis M72.2 [facility] [place] [id number] [place] [address] 62667- 6553 Nov, [facility] [place] [address] [address]- 1393 Oct, Lumbar neuritis M54.16 [facility] [place] [id number] [place] [address] 47248- 2030 Oct, Lumbar neuritis M54.16 [facility] [place] [id number] [place] [address] 35663- 0497 Oct, Lumbar neuritis M54.16 [facility] [place] [id number] [place] [address] 83018- 2081 Oct, Plantar fasciitis M72.2 and Pain in right knee M25.561 [facility] [place] [id number] [place] [address] 81537- 0988 16 Oct, 2016 Lumbar neuritis M54.16 ; Cervical neuritis M54.12 ; Other specified abdominal hernia without obstruction or gangrene K45.8 ; Heel spur, left M77.32 ; Plantar fasciitis M72.2 and Pain in right knee M25.561 [facility] [place] [id number] [place] [address] 76886- 8323 13 Oct, 2016 [facility] [place] [id number] [place] [address] 72206- 0915 14 Aug, 2014 [facility] [place] [id number] [place] [address] 67319- 6872 Aug, [facility] [place] [facility] [address] [id number] [place] [address]- 6918 Apr, [facility] [place] [facility] [address] [id number] [place] 1562 Apr, [facility] [place] [facility] [address] [id number] [place] [address]- 3947 Mar, [facility] [place] [facility] [address] [id number] [place] [address]- 8985 Mar, [facility] [place] [facility] [address] [id number] [place] [address]- 7201 Feb, [facility] [place] [facility] [address] [id number] [place] [address]- 2279 Feb, [facility] [place] [facility] [address] [id number] [place] [address]- 6884 Feb, [facility] [place] [facility] [address] [id number] [place] [address]- 8944 Feb, [facility] [place] [facility] [address] [id number] [place] [address]- 9247 Feb, [facility] [place] [facility] [address] [id number], [place] [address]- 9896 Feb, [facility] [place] [facility] [address] [id number], [place] [address]- 0204 Feb, [facility] [place] [facility] [address] [id number], [place] [address]- 4494 Feb, [facility] [place] [facility] [address] [id number], [place] [address]- 3518 Jan, [facility] [place] [facility] [address] [id number] [place] [address]- 1196 30 Jan, 2014 [facility] [place] [facility] [address] [id number] [place] [address]- 9961 30 Jan, 2014 [facility] [place] [facility] [address] [id number] [place] [address] 2543 30 Sep, 2013 [facility] [place] [facility] [address] [id number] [place] [address] 2546 30 Sep, 2013 [facility] [place] [facility] [address] [id number] [place] [address] 2546 30 Sep, 2013 [facility] [place] [facility] [address] [id number] [place] [address] 2546 26 Sep, 2013 [facility] [place] [facility] [address] [id number] [place] [address]- 2542 26 Sep, 2013 [facility] [place] [facility] [address] [id number] [place] [address] 2545 22 Sep, 2013 [facility] [place] [facility] [address] [id number] [place] [address]- 2541 22 Sep, 2013 [facility] [place] [facility] [address] [id number] [place] [address] 2542 16 Sep, 2013 [facility] [place] [facility] [address] [id number] [place] [address] 2545 16 Sep, 2013 [facility] [place] [facility] [address] [id number] [place] [address] 2545 16 Sep, 2013 [facility] [place] [facility] [address] [id number] [place] [address]- 254 16 Sep, 2013 [facility] [place] [facility] [address] [id number] [place] [address] 2545 12 Sep, 2013 [facility] [place] [facility] [address] [id number] [place] [address] 2544 12 Sep, 2013 [facility] [place] [facility] [address] [id number] [place] [address] 2546 12 Sep, 2013 [facility] [place] [facility] [address] [id number] [place] [address]- 2546 12 Sep, 2013 [facility] [place] [facility] [address] [id number] [place] [address]- 8999 09 Sep, 2013 [facility] [place] [facility] [address] [id number] [place] [address]- 6458 Jan, 2013 [facility] [place] [facility] [address] [id number] [place] [address]- 6037 Jan, [facility] [place] [facility] [address] [id number] [place] [address]- 4352 Jan, 2013 [facility] [place] [facility] [address] [id number] [place] [address]- 3530 Jan, 2013 [facility] [place] [facility] [address] [id number] [place] [address]- 0369 Jan, [facility] [place] [facility] [address] [id number] [place] [address]- 5704 Dec, [facility] [place] [facility] [address] [id number] [place] [address]- 0867 Dec, [facility] [place] [facility] [address] [id number] [place] [address]- 2752 Dec, [facility] [place] [facility] [address] [id number] [place] [address]- 3497 Dec, [facility] [place] [facility] [address] [id number] [place] [address]- 1607 Dec, [facility] [place] [facility] [address] [id number] [place] [address]- 8509 Dec, [facility] [place] [facility] [address] [id number] [place] [address]- 0515 Dec, [facility] [place] [facility] [address] [id number] [place] [address]- 2316 Dec, [facility] [place] [facility] [address] [id number] [place] [address]- 0008 Dec, [facility] [place] [facility] [address] [id number] [place] [address]- 3652 Dec, [facility] [place] [facility] [address] [id number] [place] [address]- 6721 Dec, [facility] [place] [facility] [address] [id number] [place] [address]- 8090 Dec, [facility] [place] [facility] [address] [id number] [place] [address]- 0068 Dec, [facility] [place] [facility] [address] [id number] [place] [address]- 6792 Dec, [facility] [place] [facility] [address] [id number] [place] [address]- 3573 Dec, [facility] [place] [facility] [address] [id number] [place] [address]- 3148 Dec, [facility] [place] [facility] [address] [id number] [place] [address]- 5769 Dec, [facility] [place] [facility] [address] [id number] [place] [address]- 0058 Dec, [facility] [place] [facility] [address] [id number] [place] [address]- 6527 Dec, [facility] [place] [facility] [address] [id number] [place] [address]- 7122 Nov, [facility] [place] [facility] [address] [id number] [place] [address]- 3049 Nov, [facility] [place] [facility] [address] [id number] [place] [address]- 9048 Nov, [facility] [place] [facility] [address] [id number] [place] [address]- 0880 Nov, [facility] [place] [facility] [address] [id number] [place] [address]- 5015 Nov, [facility] [place] [facility] [address] [id number] [place] [address]- 5888 Nov, [facility] [place] [facility] [address] [id number] [place] [address]- 1958 Nov, [facility] [place] [facility] [id number], [place] [address]- 5446 Nov, [facility] [place] [address], [place] [address]- 4405 Nov, [facility] [place] [address], [place] [address]- 4260 Nov, [facility] [place] [address], [place] [address]- 0275 Nov, [facility] [place] [id number], [place] [address]- 5876 Oct, [facility] [place] [address], [place] [address]- 6365 Oct, [facility] [place] [address], [place] [address]- 1357 Oct, [facility] [place] [address], [place] [address]- 6541 Apr, IMMUNIZATIONS No Known Immunizations SOCIAL HISTORY Never Assessed REASON FOR VISIT surgical clearance for laminectomy with resection of cyst. Needs labs, xray, and EKG prior to surgery. [id number] PLAN OF CARE Activity Details Follow Up will complete clearance after lab Reason: VITAL SIGNS Height 70 in 2017-07-28 Weight 208.8 lbs 2017-07-28 Temperature 98.1 degrees Fahrenheit 2017-07-28 Heart Rate 66 bpm 2017-07-28 Respiratory Rate 20 2017-07-28 Oximetry 97 % 2017-07-28 BMI 29.96 kg/m2 2017-07-28 Blood pressure systolic 140 mmHg 2017-07-28 Blood pressure diastolic 88 mmHg 2017-07-28 MEDICATIONS Medication Instructions Dosage Frequency Start Date End Date Duration Status Morphine Sulfate ER 15 MG Orally once a day in the morning (take with 30mg tablet) 1 tablet Jun, 14 days Active Cymbalta 30 MG Orally Twice a day 1 capsule 12h Active ProAir HFA 108 (90 Base) MCG/ACT INHALE 2 PUFFS INTO LUNGS EVERY FOUR HOURS NEEDED FOR SHORTNESS OF BREATH Active Aspirin 81 mg 1 tablet by Oral route 1 time per day Dec, Active Norvasc 10 mg 1 tablet Once a day Orally Active Captopril 25 MG TAKE ONE TABLET BY MOUTH TWICE DAILY 30 Active Voltaren 1 % apply 1g to affected area 2 times a day Transdermal Active Lipitor 80 mg 1 tablet by Oral route 1 time per day Active Tiotropium [place]-Olodaterol 2.5-2.5 MCG/ACT Inhalation Once a day 2 puffs 24h Active Flonase 50 MCG/ACT Nasally Once a day 1 spray in each nostril 24h Active Cyclobenzaprine HCl 10 MG TAKE 1 TABLET BY MOUTH THREE TIMES DAILY 30 Not-Taking Diazepam 10 MG Orally Once a day, at bed time 1 tablet 28 days Not -Taking Morphine Sulfate ER 30 MG Orally twice a day 1 capsule 12h Jun, 14 days Active Prevacid 30 mg Orally Once a day 1 capsule 24h Dec, 30 days Active Gabapentin 300 MG TAKE 2 CAPSULES BY MOUTH THREE TIMES DAILY 30 Active RESULTS No Results PROCEDURES Procedure Date Ordered Result Body Site EKG, TRACING (IN-HOUSE) 2017-07-28 N/A LAB NOT BILLED BY [facility] July 28, 2017 ELECTROCARDIOGRAM, TRACING July 28, 2017 X-RAY EXAM CHEST 2 VIEWS July 28, 2017 INSTRUCTIONS MEDICATIONS ADMINISTERED No Known Medications [...]
--- OUTSIDE RECORDS SUMMARY | 2018-04-14 06:07 | XMS REPORT ---
Author Author EVAN SALVADOR Organization [facility] Address [address] [place] [address] Care Team Providers Care Check Totaler Name Role Phone EVAN SALVADOR Unavailable PROBLEMS Type Condition ICD9-CM Code MBD32-UX Code Onset Dates Condition Status SNOMED Code Problem Chronic airway obstruction, not elsewhere classified 496 Active 28864199 Problem Unspecified essential hypertension 401.9 Active 89133503 Problem Occlusion and stenosis of carotid artery without mention of cerebral infarction 433.10 Active 488423863599219 Problem Anxiety disorder, unspecified F41.9 Active 433975258 Problem Chronic pain syndrome G89.4 Active 194845446 Problem Anxiety state, unspecified 300.00 Active 889639611 Problem Chronic pain syndrome 338.4 Active 492964940 Problem Bilateral primary osteoarthritis of knee M17.0 Active 734426250 Problem Other and unspecified hyperlipidemia 272.4 Active 28371244 Problem Need for prophylactic vaccination and inoculation, Influenza V04.81 Active 119383622 Problem Headache 784.0 Active 87315911 Problem Encounter for long-term (current) use of other medications V58.69 Active 406773960 Problem Syncope and collapse 780.2 Active 954562210 Problem Personal history of tobacco use, presenting hazards to health V15.82 Active 1534781376651 Problem Cervicalgia 723.1 Active 65701161 ALLERGIES No Information ENCOUNTERS Encounter Location Date Diagnosis [facility] [id number], [place] [address] Jul, [facility] [address], [place] [address] Jul, [facility] [address], [place] [address] Jul, Chronic pain syndrome G89.4 [facility] [id number], [place] [address] Jul, Pre-op evaluation Z01.818 [facility] [id number] [place] [address] 77424- 4550 Jul, [facility] [id number] [place] [address] 02941- 9648 Jun, Anxiety disorder, unspecified F41.9 and Chronic pain syndrome G89.4 [facility] [id number] [place] [address] 79132- 1481 Jun, [facility] [id number] [place] [address] 50377- 4996 Jun, [facility] [id number] [place] [address] 03636- 6799 Jun, [facility] [id number] [place] [address] 57706- 8570 Jun, [facility] [id number] [place] [address] 29055- 8645 Jun, Lumbar neuritis M54.16 [facility] [id number] [place] [address] 47436- 5261 May, [facility] [id number] [place] [address] 30422- 3394 May, [facility] [id number] [place] [address] 43733- 5868 May, Encounter for therapeutic drug level monitoring Z51.81 ; Encounter for immunization Z23 and Chronic pain syndrome G89.4 [facility] [id number] [place] [address] 69400- 5107 May, Lumbar neuritis M54.16 [facility] [id number] [place] [address] 61554- 3677 May, [facility] [id number] [place] [address] 09221- 4853 Apr, Lumbar neuritis M54.16 [facility] [id number] [place] [address] 70034- 0692 Apr, [facility] [id number] [place] [address] 33528- 4725 Mar, Lumbar neuritis M54.16 [facility] [id number] [place] [address] 49340- 5196 Mar, [facility] [id number] [place] [address] 76287- 7574 Mar, [facility] [id number] [place] [address] 13457- 1566 Feb, Lumbar neuritis M54.16 [facility] [id number] [place] [address] 29990- 3317 Feb, Lumbar neuritis M54.16 [facility] [id number] [place] [address] 22674- 6568 Feb, [facility] [id number] [place] [address] 46928- 1108 Feb, [facility] [id number] [place] [address] 95854- 5219 25 Jan, 2017 [facility] [id number] [place] [address] 22236- 3578 22 Jan, 2017 Peroneal tendonitis of left lower extremity M76.72 [facility] [id number] [place] [address] 73219- 9809 20 Jan, 2017 Lumbar neuritis M54.16 [facility] [id number] [place] [address] 50252- 3531 12 Jan, 2017 [facility] [id number] [place] [address] 68503- 4033 Dec, Lumbar neuritis M54.16 [facility] [id number] [place] [address] 10934- 9390 Dec, [facility] [id number] [place] [address] 40040- 7375 Dec, Pain in right knee M25.561 ; Lumbar neuritis M54.16 and Cervical neuritis M54.12 [facility] [id number] [place] [address] 89352- 0570 14 Dec, 2016 [facility] [id number] [place] [address] 00623- 2121 Dec, [facility] [id number] [place] [address] 03641- 8116 Nov, Lumbar neuritis M54.16 [facility] [id number] [place] [address] 26487- 1686 Nov, Bilateral primary osteoarthritis of knee M17.0 [facility] [id number] [place] [address] 35711- 5639 Nov, [facility] [id number] [place] [address] 57066- 4870 Nov, Bronchitis J40 and Plantar fasciitis M72.2 [facility] [id number] [place] [address] 19120- 8348 Nov, [facility] [id number] [place] [address] 04778- 4692 Oct, Lumbar neuritis M54.16 [facility] [id number] [place] [address] 73696- 9532 Oct, Lumbar neuritis M54.16 [facility] [id number] [place] [address] 43654- 6010 Oct, Lumbar neuritis M54.16 [facility] [id number] [place] [address] 37872- 3433 Oct, Plantar fasciitis M72.2 and Pain in right knee M25.561 [facility] [id number] [place] [address] 41268- 6777 Oct, Lumbar neuritis M54.16 ; Cervical neuritis M54.12 ; Other specified abdominal hernia without obstruction or gangrene K45.8 ; Heel spur, left M77.32 ; Plantar fasciitis M72.2 and Pain in right knee M25.561 [facility] [address], [place] [address]- 3369 13 Oct, 2016 [facility] [id number] [place] [address] 49075- 6011 14 Aug, 2014 [facility] [id number] [place] [address] 83586- 6457 Aug, [facility] [id number] [place] [address] 85279- 4575 Apr, [facility] [id number] [place] [address] 33534- 0492 Apr, [facility] [id number] [place] [address] 10203- 4502 Mar, [facility] [id number] [place] [address] 09672- 1462 Mar, [facility] [id number] [place] [address] 80208- 4601 Feb, [facility] [address], [place] [address]- 3558 Feb, [facility] [address], [place] [address]- 5211 Feb, [facility] [address], [place] [address]- 9810 Feb, [facility] [id number] [place] [address] 649236- 4279 Feb, [facility] [address] 7816 Feb, [facility] [id number] [place] [address] 941974- 9758 Feb, [facility] [place] [facility] [address] [id number] [place] [address]- 8625 07 Feb, 2013 [facility] [place] [facility] [address] [id number] [place] [address]- 8177 30 Sep, 2013 [facility] [place] [facility] [address] [id number] [place] [address]- 1046 30 Sep, 2013 [facility] [place] [facility] [address] [id number] [place] [address]- 7889 30 Sep, 2013 [facility] [place] [facility] [address] [id number] [place] [address]- 3613 30 Sep, 2013 [facility] [place] [facility] [address] [id number] [place] [address]- 1037 30 Sep, 2013 [facility] [place] [facility] [address] [id number] [place] [address]- 6534 30 Sep, 2013 [facility] [place] [facility] [address] [id number] [place] [address]- 2807 26 Sep, 2013 [facility] [place] [facility] [address] [id number] [place] [address]- 5222 26 Sep, 2013 [facility] [place] [facility] [address] [id number] [place] [address]- 6487 22 Sep, 2013 [facility] [place] [facility] [address] [id number] [address] 2549 22 Sep, 2013 [facility] [place] [facility] [address] [id number] [address]- 254 16 Sep, 2013 [facility] [place] [facility] [address] [id number] [place] [address] 2546 16 Sep, 2013 [facility] [place] [facility] [address] [id number] [place] [address]- 2541 16 Sep, 2013 [facility] [place] [facility] [address] [id number] [place] [address] 2541 16 Sep, 2013 [facility] [place] [facility] [address] [id number] [place] [address]- 1871 12 Jan, 2013 [facility] [place] [facility] [address] [id number] [place] [address]- 5607 12 Jan, 2013 [facility] [place] [facility] [address] [id number] [place] [address]- 9951 Jan, 2013 [facility] [place] [facility] [address] [id number] [place] [address]- 3689 Jan, 2013 [facility] [place] [facility] [address] [id number] [place] [address]- 7790 Jan, 2013 [facility] [place] [facility] [address] [id number] [place] [address]- 6812 Jan, 2013 [facility] [place] [facility] [address] [id number] [place] [address]- 1469 Jan, 2013 [facility] [place] [facility] [address] [id number] [place] [address]- 1640 Jan, 2013 [facility] [place] [facility] [address] [id number] [place] [address]- 3635 Jan, 2013 [facility] [place] [facility] [address] [id number] [place] [address]- 1909 Jan, 2013 [facility] [place] [facility] [address] [id number] [place] [address]- 2430 Dec, [facility] [place] [facility] [address] [id number] [place] [address]- 6297 Dec, [facility] [place] [facility] [address] [id number] [place] [address]- 9370 Dec, [facility] [place] [facility] [address] [id number] [place] [address]- 5227 Dec, [facility] [place] [facility] [address] [id number] [place] [address]- 2302 Dec, [facility] [place] [facility] [address] [id number] [place] [address]- 6826 Dec, [facility] [place] [facility] [address] [id number] [facility] [address]- 6609 Dec, [facility] [place] [facility] [address] [id number] [place] [address]- 3147 Dec, [facility] [place] [facility] [address] [id number] [place] [address]- 6677 Dec, [facility] [place] [facility] [address] [id number] [place] [address]- 4263 Dec, [facility] [place] [facility] [address] [id number] [place] [address]- 9261 Dec, [facility] [place] [facility] [address] [id number] [place] [address]- 1521 Dec, [facility] [place] [facility] [address] [id number] [place] [address]- 8281 Dec, [facility] [place] [facility] [address] [id number] [place] [address]- 1332 Dec, [facility] [place] [facility] [address] [id number] [place] [address]- 6124 Dec, [facility] [place] [facility] [address] [id number] [place] [address]- 2774 Dec, [facility] [place] [facility] [address] [id number] [place] [address]- 3293 Dec, [facility] [place] [facility] [address] [id number] [place] [address]- 1590 Dec, [facility] [place] [facility] [address] [id number] [place] [address]- 8491 Dec, [facility] [place] [facility] [address] [id number] [place] [address]- 5393 Nov, [facility] [place] [facility] [address] [id number] [place] [address]- 8347 Nov, [facility] [place] [facility] [address] [id number] [place] [address]- 1693 Nov, [facility] [id number], [place] [address]- 1008 Nov, [facility] [address], [place] [address]- 9896 Nov, [facility] [id number], [place] [address]- 7075 Nov, [facility] [address] [facility] [id number] [address]- 9743 Nov, [facility] [address], [place] [address]- 5311 Nov, [facility] [address], [place] [address]- 4459 Nov, [facility] [address], [place] [address]- 0087 Nov, [facility] [address], [place] [address]- 8386 Nov, [facility] [address], [place] [address]- 7461 Oct, [facility] [address], [place] [address]- 4773 Oct, [facility] [id number], [place] [address]- 1625 Oct, [facility] [id number] [address] 7821 Apr, IMMUNIZATIONS No Known Immunizations SOCIAL HISTORY Never Assessed REASON FOR VISIT bilateral knee pain PLAN OF CARE Activity Details Follow Up prn Reason: VITAL SIGNS Height 70 in 2016-12-11 Blood pressure systolic 132 mmHg 2016-12-11 Blood pressure diastolic 83 mmHg 2016-12-11 MEDICATIONS Unknown Medications RESULTS No Results PROCEDURES Procedure Date Ordered Result Body Site DRAIN/INJECT, JOINT/BURSA December 11, 2016 DEPO MEDROL 80 MG/ML December 11, 2016 INSTRUCTIONS MEDICATIONS ADMINISTERED No Known Medications MEDICAL [...]
--- OUTSIDE RECORDS SUMMARY | 2018-04-14 06:07 | XMS REPORT ---
Author Author BONNY BRANNON Organization [facility] Address [address] [place] [address] Care Team Providers Care Soaking Pits Supervisor Name Role Phone BONNY BRANNON Unavailable PROBLEMS Type Condition ICD9-CM Code NRT60-VL Code Onset Dates Condition Status SNOMED Code Problem Anxiety disorder, unspecified F41.9 Active 211586194 Problem Chronic pain syndrome G89.4 Active 168859724 Problem Bilateral primary osteoarthritis of knee M17.0 Active 108425442 ALLERGIES No Information ENCOUNTERS Encounter Location Date Diagnosis [facility] [place] [id number] [place] [address] 86431- 2623 Nov, [facility] [id number] [place] [address] 88157- 0447 Oct, [facility] [id number] [place] [address] 20635- 0915 Oct, [facility] [id number] [place] [address] 49365- 9605 Oct, [facility] [id number] [place] [address] 88581- 3250 Oct, Allergic reaction to drug, subsequent encounter T78.40XD [facility] [id number] [place] [address] 43311- 6181 September, [facility] [id number] [place] [address] 17531- 4492 September, [facility] [id number] [place] [address] 31103- 1815 September, Low back pain radiating to lower extremity M54.5 [facility] [id number] [place] [address] 50867- 0631 Aug, [facility] [address] [address] 4474 Aug, [facility] [id number] [place] [address] 56179- 1166 Aug, [facility] [address], [place] [address] 9360 Aug, [facility] [id number] [place] [address] 02953- 0806 Aug, Incisional infection, initial encounter T81.4XXA [facility] [id number] [place] [address] 83487- 1201 Aug, [facility] [id number] [place] [address] 36937- 7233 Jul, [facility] [id number] [place] [address] 84357- 4875 Jul, [facility] [id number] [place] [address] 36530- 1611 Jul, Chronic pain syndrome G89.4 [facility] [id number] [place] [address] 79430- 3920 Jul, Pre-op evaluation Z01.818 [facility] [address], [place] [address] 1561 Jul, [facility] [id number] [place] [address] 56872- 5574 Jun, Anxiety disorder, unspecified F41.9 and Chronic pain syndrome G89.4 [facility] [id number] [place] [address] 68635- 9999 Jun, [facility] [address], [place] [address]- 6363 Jun, [facility] [id number] [place] [address] 07608- 8139 Jun, [facility] [address], [place] [address]- 4424 Jun, [facility] [id number] [place] [address] 72173- 2159 Jun, Lumbar neuritis M54.16 [facility] [id number] [place] [address] 78296- 6479 May, [facility] [id number] [place] [address] 26568- 5713 May, [facility] [id number] [place] [address] 08263- 4881 May, Encounter for therapeutic drug level monitoring Z51.81 ; Encounter for immunization Z23 and Chronic pain syndrome G89.4 [facility] [id number] [place] [address] 40917- 1041 May, Lumbar neuritis M54.16 [facility] [id number] [place] [address] 18343- 2295 May, [facility] [id number] [place] [address] 66381- 8123 Apr, Lumbar neuritis M54.16 [facility] [id number] [place] [address] 03870- 3199 Apr, [facility] [id number] [place] [address] 61322- 5602 Mar, Lumbar neuritis M54.16 [facility] [id number] [place] [address] 96424- 8966 Mar, [facility] [id number] [place] [address] 47873- 3127 Mar, [facility] [address], [place] [address]- 1226 Feb, Lumbar neuritis M54.16 [facility] [id number] [place] [address] 12028- 9489 Feb, Lumbar neuritis M54.16 [facility] [id number] [place] [address] 14907- 5260 16 Feb, 2017 [facility] [id number] [place] [address] 78589- 3965 09 Feb, 2017 [facility] [id number] [place] [address] 63852- 4065 25 Jan, 2017 [facility] [id number] [place] [address] 35499- 8965 22 Jan, 2017 Peroneal tendonitis of left lower extremity M76.72 [facility] [id number] [place] [address] 47373- 0705 20 Jan, 2017 Lumbar neuritis M54.16 [facility] [id number] [place] [address] 79543- 0960 Jan, [facility] [id number] [place] [address] 54521- 5567 Dec, Lumbar neuritis M54.16 [facility] [id number] [place] [address] 88453- 6553 Dec, [facility] [id number] [place] [address] 49338- 0961 Dec, Pain in right knee M25.561 ; Lumbar neuritis M54.16 and Cervical neuritis M54.12 [facility] [id number] [place] [address] 63662- 6773 Dec, [facility] [id number] [place] [address] 80250- 8433 Dec, [facility] [id number] [place] [address] 66753- 1027 Nov, Lumbar neuritis M54.16 [facility] [id number] [place] [address] 42584- 7748 Nov, Bilateral primary osteoarthritis of knee M17.0 [facility] [id number] [place] [address] 59918- 0305 14 Nov, 2016 [facility] [id number] [place] [address] 97460- 2232 Nov, Bronchitis J40 and Plantar fasciitis M72.2 [facility] [id number] [place] [address] 59620- 2417 Nov, [facility] [id number] [place] [address] 36075- 8866 Oct, Lumbar neuritis M54.16 [facility] [id number] [place] [address] 84901- 9737 Oct, Lumbar neuritis M54.16 [facility] [id number] [place] [address] 46879- 7125 Oct, Lumbar neuritis M54.16 [facility] [id number] [place] [address] 91716- 9937 Oct, Plantar fasciitis M72.2 and Pain in right knee M25.561 [facility] [id number] [place] [address] 52412- 2410 16 Oct, 2016 Lumbar neuritis M54.16 ; Cervical neuritis M54.12 ; Other specified abdominal hernia without obstruction or gangrene K45.8 ; Heel spur, left M77.32 ; Plantar fasciitis M72.2 and Pain in right knee M25.561 [facility] [id number] [place] [address] 19697- 6087 13 Oct, 2016 [facility] [id number] [place] [address] 84773- 8081 Aug, [facility] [id number] [place] [address] 50262- 3201 Aug, [facility] [id number] [place] [address] 48733- 3900 Apr, [facility] [id number] [place] [address]- 2029 Apr, [facility] [place] [facility] [address] [id number] [place] [address]- 4863 Mar, [facility] [place] [facility] [address] [id number] [place] [address]- 7159 Mar, [facility] [place] [facility] [address] [id number] [place] [address]- 9901 Feb, [facility] [place] [facility] [address] [id number] [place] [address]- 0022 Feb, [facility] [place] [facility] [address] [id number] [place] [address]- 1580 Feb, [facility] [place] [facility] [address] [id number] [place] [address]- 8142 Feb, [facility] [place] [facility] [address] [id number] [place] [address]- 9361 Feb, [facility] [place] [facility] [address] [id number] [place] [address]- 8566 Feb, [facility] [place] [facility] [address] [facility] [id number] [place] [address]- 0772 Feb, [facility] [place] [facility] [address] [facility] [id number] [place] [address]- 9109 Feb, [facility] [place] [facility] [address] [id number] [place] [address]- 4056 30 Jan, 2013 [facility] [place] [facility] [address] [id number] [place] [address]- 2299 30 Sep, 2013 [facility] [place] [facility] [address] [id number] [place] [address]- 4348 30 Jan, 2013 [facility] [place] [facility] [address] [facility] [id number] [place] [address]- 3160 30 Jan, 2013 [facility] [place] [facility] [address] [id number] [place] [address]- 3589 30 Jan, 2013 [facility] [place] [facility] [address] [id number] [place] [address]- 1974 30 Sep, 2013 [facility] [place] [facility] [address] [id number] [place] [address]- 4536 26 Sep, 2013 [facility] [place] [facility] [address] [id number] [place] [address]- 1856 26 Sep, 2013 [facility] [place] [facility] [address] [id number] [place] [address] 2548 22 Sep, 2013 [facility] [place] [facility] [address] [id number] [place] [address]- 5766 22 Sep, 2013 [facility] [place] [facility] [address] [id number] [place] [address]- 4711 16 Sep, 2013 [facility] [place] [facility] [address] [id number] [place] [address]- 0481 16 Sep, 2013 [facility] [place] [facility] [address] [id number] [place] [address]- 1494 16 Sep, 2013 [facility] [place] [facility] [address] [id number] [place] [address]- 7078 16 Sep, 2013 [facility] [place] [facility] [address] [id number] [place] [address]- 2790 12 Sep, 2013 [facility] [place] [facility] [address] [id number] [place] [address] 2542 12 Sep, 2013 [facility] [place] [facility] [address] [id number], [place] [address]- 2547 12 Sep, 2013 [facility] [place] [facility] [address] [id number] [place] [address] 2547 12 Sep, 2013 [facility] [place] [facility] [address] [id number] [place] [address]- 2540 09 Sep, 2013 [facility] [place] [facility] [address] [id number], [place] [address]- 3451 09 Sep, 2013 [facility] [place] [facility] [address] [id number], [place] [address]- 0596 Jan, [facility] [place] [facility] [address] [id number] [place] [address]- 8781 Jan, [facility] [place] [facility] [address] [id number] [place] [address]- 2679 Jan, [facility] [place] [facility] [address] [id number] [place] [address]- 8671 Jan, [facility] [place] [facility] [address] [id number] [place] [address]- 4841 Dec, [facility] [place] [facility] [address] [id number] [place] [address]- 6588 Dec, [facility] [place] [facility] [address] [id number] [place] [address]- 0043 Dec, [facility] [place] [facility] [address] [id number] [place] [address]- 5980 Dec, [facility] [place] [facility] [address] [id number] [place] [address]- 8517 Dec, [facility] [place] [facility] [address] [id number] [place] [address]- 7274 Dec, [facility] [place] [facility] [address] [id number] [place] [address]- 6214 Dec, [facility] [place] [facility] [address] [id number] [place] [address]- 8165 Dec, [facility] [place] [facility] [address] [id number] [place] [address]- 1055 Dec, [facility] [place] [facility] [address] [id number] [place] [address]- 5102 Dec, [facility] [place] [facility] [address] [id number] [place] [address]- 8190 Dec, [facility] [place] [facility] [address] [id number] [place] [address]- 7488 Dec, [facility] [place] [facility] [address] [id number] [place] [address]- 7810 Dec, [facility] [place] [facility] [address] [id number] [place] [address]- 4201 Dec, [facility] [place] [facility] [address] [id number] [place] [address]- 4466 Dec, [facility] [place] [facility] [address] [id number] [place] [address]- 4458 Dec, [facility] [place] [facility] [address] [id number] [place] [address]- 5451 Dec, [facility] [place] [facility] [address] [id number] [place] [address]- 8598 Dec, [facility] [place] [facility] [address] [id number] [place] [address]- 8225 Dec, [facility] [place] [facility] [address] [id number] [place] [address]- 6168 Nov, [facility] [place] [facility] [address] [id number] [place] [address]- 9936 Nov, [facility] [place] [facility] [address] [id number] [place] [address]- 8806 Nov, [facility] [place] [facility] [address] [id number] [place] [address]- 4123 Nov, [facility] [place] [facility] [address] [id number] [place] [address]- 5406 Nov, [facility] [place] [facility] [address] [id number] [place] [address]- 4873 Nov, [facility] [place] [facility] [address] [id number] [place] [address]- 2062 Nov, [facility] [place] [facility] [address] [id number] [place] [address]- 9026 Nov, [facility] [place] [facility] [address] [id number] [place] [address]- 7645 Nov, [facility] [address] [facility] [id number], [place] [address]- 4568 Nov, [facility] [id number] [address]- 9982 Nov, [facility] [address] [facility] [id number], [place] [address]- 5556 Oct, [facility] [id number] [place] [address]- 9243 Oct, [facility] [address] [facility] [id number], [place] [address]- 7323 Oct, [facility] [id number] [address]- 9903 Apr, IMMUNIZATIONS No Known Immunizations SOCIAL HISTORY Never Assessed REASON FOR VISIT Requests return call PLAN OF CARE VITAL SIGNS MEDICATIONS Unknown [...]
--- OUTSIDE RECORDS SUMMARY | 2018-04-14 06:07 | XMS REPORT ---
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 Shipfitters Supervisor Name Role Phone PREETHI YIN Unavailable PROBLEMS Type Condition ICD9-CM Code PVM47-BE Code Onset Dates Condition Status SNOMED Code Problem Chronic airway obstruction, not elsewhere classified 496 Active 63875328 Problem Unspecified essential hypertension 401.9 Active 44438499 Problem Occlusion and stenosis of carotid artery without mention of cerebral infarction 433.10 Active 574485928918012 Problem Anxiety disorder, unspecified F41.9 Active 782516300 Problem Chronic pain syndrome G89.4 Active 330900683 Problem Anxiety state, unspecified 300.00 Active 184983479 Problem Chronic pain syndrome 338.4 Active 894423860 Problem Bilateral primary osteoarthritis of knee M17.0 Active 119637380 Problem Other and unspecified hyperlipidemia 272.4 Active 96457245 Problem Need for prophylactic vaccination and inoculation, Influenza V04.81 Active 172826843 Problem Headache 784.0 Active 58530863 Problem Encounter for long-term (current) use of other medications V58.69 Active 824640934 Problem Syncope and collapse 780.2 Active 327445985 Problem Personal history of tobacco use, presenting hazards to health V15.82 Active 1714519539696 Problem Cervicalgia 723.1 Active 72622146 ALLERGIES No Information ENCOUNTERS Encounter Location Date Diagnosis [facility] [id number] [address] September, [facility] [id number] [place] [address] 98059- 5611 September, Low back pain radiating to lower extremity M54.5 [facility] [address] [address] Aug, [facility] [id number] [place] [address] 12348- 1779 Aug, [facility] [address] [address] 8557 Aug, [facility] [address] [place] [address] 46255- 6886 Aug, [facility] [address] [address] Aug, Incisional infection, initial encounter T81.4XXA [facility] [id number] [place] [address] 62686- 7547 Aug, [facility] [id number] [place] [address] 39527- 3988 Jul, [facility] [id number] [place] [address] 18300- 9571 Jul, [facility] [id number] [place] [address] 41934- 9290 Jul, Chronic pain syndrome G89.4 [facility] [address] [place] [address] 17042- 4445 Jul, Pre-op evaluation Z01.818 [facility] [address] [place] [address] 57266- 7690 Jul, [facility] [address] [address] Jun, Anxiety disorder, unspecified F41.9 and Chronic pain syndrome G89.4 [facility] [address] [address] 8173 Jun, [facility] [id number] [place] [address] 05450- 1806 Jun, [facility] [address] [address] 5816 Jun, [facility] [address] [place] [address] 31250- 5113 Jun, [facility] [address] [place] [address] 06281- 3666 Jun, Lumbar neuritis M54.16 [facility] [id number] [place] [address] 11583- 1663 May, [facility] [id number] [place] [address] 92948- 1063 May, [facility] [id number] [place] [address] 92323- 4277 May, Encounter for therapeutic drug level monitoring Z51.81 ; Encounter for immunization Z23 and Chronic pain syndrome G89.4 [facility] [id number] [place] [address] 69344- 4589 May, Lumbar neuritis M54.16 [facility] [id number] [place] [address] 89244- 7733 May, [facility] [id number] [place] [address] 88589- 4115 Apr, Lumbar neuritis M54.16 [facility] [id number] [place] [address] 22951- 4742 Apr, [facility] [address] [place] [address] 92395- 3193 Mar, Lumbar neuritis M54.16 [facility] [id number] [place] [address] 65422- 5287 Mar, [facility] [id number] [place] [address] 85835- 3267 Mar, [facility] [id number] [place] [address] 45032- 1931 Feb, Lumbar neuritis M54.16 [facility] [address] [place] [address] 27656- 2422 Feb, Lumbar neuritis M54.16 [facility] [id number] [address]- 8956 16 Feb, 2017 [facility] [id number] [place] [address] 20816- 1121 Feb, [facility] [id number] [place] [address] 19056- 3225 25 Jan, 2017 [facility] [id number] [place] [address] 16631- 8263 22 Jan, 2017 Peroneal tendonitis of left lower extremity M76.72 [facility] [id number] [place] [address] 10239- 3032 20 Jan, 2017 Lumbar neuritis M54.16 [facility] [id number] [place] [address] 21578- 4629 12 Jan, 2017 [facility] [id number] [place] [address] 86436- 8742 Dec, Lumbar neuritis M54.16 [facility] [id number] [place] [address] 47142- 3206 Dec, [facility] [id number] [place] [address] 69665- 1499 Dec, Pain in right knee M25.561 ; Lumbar neuritis M54.16 and Cervical neuritis M54.12 [facility] [id number] [place] [address] 90955- 0634 Dec, [facility] [id number] [place] [address] 38114- 9127 Dec, [facility] [address] [place] [address] 69524- 4190 Nov, Lumbar neuritis M54.16 [facility] [id number] [place] [address] 30203- 7582 Nov, Bilateral primary osteoarthritis of knee M17.0 [facility] [id number] [place] [address] 23720- 3292 Nov, [facility] [address] [place] [address] 15430- 3898 Nov, Bronchitis J40 and Plantar fasciitis M72.2 [facility] [id number] [place] [address] 26187- 1403 Nov, [facility] [id number] [place] [address] 70292- 7434 Oct, Lumbar neuritis M54.16 [facility] [id number] [place] [address] 42832- 3513 Oct, Lumbar neuritis M54.16 [facility] [id number] [place] [address] 79370- 8336 Oct, Lumbar neuritis M54.16 [facility] [id number] [place] [address] 05942- 1055 Oct, Plantar fasciitis M72.2 and Pain in right knee M25.561 [facility] [id number] [place] [address] 83171- 7828 16 Oct, 2016 Lumbar neuritis M54.16 ; Cervical neuritis M54.12 ; Other specified abdominal hernia without obstruction or gangrene K45.8 ; Heel spur, left M77.32 ; Plantar fasciitis M72.2 and Pain in right knee M25.561 [facility] [address] [place] [address] 48894- 3186 13 Oct, 2016 [facility] [id number] [place] [address] 21808- 5247 Aug, [facility] [id number] [place] [address] 86296- 2632 Aug, [facility] [id number] [place] [address] 15875- 3361 Apr, [facility] [id number] [place] [address] 27983- 9031 Apr, [facility] [place] [facility] [address] [facility] [id number] [place] [address]- 0763 13 Mar, 2014 [facility] [place] [facility] [address] [id number] [place] [address]- 2392 Mar, [facility] [place] [facility] [address] [id number] [place] [address]- 0566 Feb, [facility] [place] [facility] [address] [id number] [place] [address]- 3620 Feb, [facility] [place] [facility] [address] [id number] [place] [address]- 8045 Feb, [facility] [place] [facility] [address] [id number] [place] [address]- 0729 Feb, [facility] [place] [facility] [address] [id number] [place] [address]- 4135 Feb, [facility] [place] [facility] [address] [id number] [place] [address]- 8612 Feb, 2013 [facility] [place] [facility] [address] [id number] [place] [address]- 1195 Feb, [facility] [place] [facility] [address] [id number] [place] [address]- 5695 Feb, [facility] [place] [facility] [address] [id number] [place] [address]- 3117 30 Jan, 2013 [facility] [place] [facility] [address] [id number] [place] [address]- 9961 30 Sep, 2013 [facility] [place] [facility] [address] [id number] [place] [address]- 2546 30 Sep, 2013 [facility] [place] [facility] [address] [id number] [place] [address]- 9616 30 Sep, 2013 [facility] [place] [facility] [address] [id number] [place] [address]- 1586 30 Sep, 2013 [facility] [place] [facility] [address] [id number] [place] [address]- 1009 30 Sep, 2013 [facility] [place] [facility] [address] [id number] [place] [address]- 6933 26 Sep, 2013 [facility] [place] [facility] [address] [id number] [place] [address] 2545 26 Sep, 2013 [facility] [place] [facility] [address] [id number] [place] [address]- 5335 22 Sep, 2013 [facility] [place] [facility] [address] [id number] [place] [address]- 5600 22 Sep, 2013 [facility] [place] [facility] [address] [id number] [place] [address]- 5291 16 Sep, 2013 [facility] [place] [facility] [address] [id number] [place] [address]- 8827 16 Sep, 2013 [facility] [place] [facility] [address] [id number] [place] [address]- 5985 16 Jan, 2013 [facility] [place] [facility] [address] [id number] [place] [address]- 1201 16 Sep, 2013 [facility] [place] [facility] [address] [id number] [place] [address]- 5200 12 Sep, 2013 [facility] [place] [facility] [address] [id number] [place] [address]- 4674 12 Sep, 2013 [facility] [place] [facility] [address] [id number] [place] [address]- 6373 12 Sep, 2013 [facility] [place] [facility] [address] [id number] [address]- 5572 12 Sep, 2013 [facility] [place] [facility] [address] [id number] [place] [address]- 2542 09 Sep, 2013 [facility] [place] [facility] [address] [id number] [place] [address]- 4119 09 Sep, 2013 [facility] [place] [facility] [address] [id number] [place] [address]- 2433 09 Sep, 2013 [facility] [place] [facility] [address] [id number] [place] [address]- 6849 Jan, [facility] [place] [facility] [address] [id number] [place] [address]- 8220 Jan, [facility] [place] [facility] [address] [id number] [place] [address]- 1650 Jan, [facility] [place] [facility] [address] [id number] [place] [address]- 3861 Dec, [facility] [place] [facility] [address] [id number] [place] [address]- 0080 Dec, [facility] [place] [facility] [address] [id number] [place] [address]- 3118 Dec, [facility] [place] [facility] [address] [id number] [place] [address]- 3277 Dec, [facility] [place] [facility] [address] [id number] [place] [address]- 1524 Dec, [facility] [place] [facility] [address] [id number] [place] [address]- 8198 Dec, [facility] [place] [facility] [address] [id number] [place] [address]- 2722 Dec, [facility] [place] [facility] [address] [id number] [place] [address]- 5529 Dec, [facility] [place] [facility] [address] [id number] [place] [address]- 2054 Dec, [facility] [place] [facility] [address] [id number] [place] [address]- 0441 Dec, [facility] [place] [facility] [address] [id number] [place] [address]- 8724 Dec, [facility] [place] [facility] [address] [id number] [place] [address]- 6678 Dec, [facility] [place] [facility] [address] [id number] [place] [address]- 9344 Dec, [facility] [place] [facility] [address] [id number] [place] [address]- 9026 Dec, [facility] [place] [facility] [address] [id number] [place] [address]- 0794 Dec, [facility] [place] [facility] [address] [id number] [place] [address]- 0402 Dec, [facility] [place] [facility] [address] [id number] [place] [address]- 1904 Dec, [facility] [place] [facility] [address] [id number] [place] [address]- 9832 Dec, [facility] [place] [facility] [address] [id number] [place] [address]- 2571 Dec, [facility] [place] [facility] [address] [id number] [place] [address]- 3763 Nov, [facility] [place] [facility] [address] [id number] [place] [address]- 7730 Nov, [facility] [place] [facility] [address] [id number] [place] [address]- 2190 Nov, [facility] [place] [facility] [address] [id number] [place] [address]- 4771 Nov, [facility] [place] [facility] [address] [id number] [place] [address]- 1034 Nov, [facility] [place] [facility] [address] [id number] [place] [address]- 3596 Nov, [facility] [place] [facility] [address] [id number] [place] [address]- 0240 Nov, [facility] [place] [facility] [address] [id number] [place] [address]- 2773 Nov, [facility] [place] [facility] [address] [id number] [place] [address]- 0726 Nov, [facility] [place] [facility] [address] [id number] [place] [address]- 6263 Nov, [facility] [address] [facility] [id number] [place] [address]- 5896 Nov, [facility] [address] [facility] [id number] [address]- 0606 Oct, [facility] [address] [facility] [id number] [address]- 4875 Oct, [facility] [address] [facility] [id number] [address]- 8033 Oct, [facility] [address] [facility] [id number] [address]- 7393 Apr, IMMUNIZATIONS No Known Immunizations SOCIAL HISTORY Never Assessed REASON FOR VISIT Controlled Med Refill PLAN OF CARE VITAL SIGNS MEDICATIONS Medication Instructions Dosage Frequency Start Date End Date Duration Status Diazepam 10 MG Orally Once a day, at bed time 1 tablet 28 days Active RESULTS No Results PROCEDURES [...]
--- OUTSIDE RECORDS SUMMARY | 2018-04-14 06:07 | XMS REPORT ---
Author Author PREETHI YIN Organization [facility] Address [address] [place] [address] Care Team Providers Care Open Cut Examiner Name Role Phone PREETHI YIN Unavailable PROBLEMS Type Condition ICD9-CM Code JEK54-AW Code Onset Dates Condition Status SNOMED Code Problem Chronic airway obstruction, not elsewhere classified 496 Active 63602518 Problem Unspecified essential hypertension 401.9 Active 96927592 Problem Occlusion and stenosis of carotid artery without mention of cerebral infarction 433.10 Active 926205687099141 Problem Anxiety disorder, unspecified F41.9 Active 353256195 Problem Chronic pain syndrome G89.4 Active 763870640 Problem Anxiety state, unspecified 300.00 Active 277307863 Problem Chronic pain syndrome 338.4 Active 434134545 Problem Bilateral primary osteoarthritis of knee M17.0 Active 682772246 Problem Other and unspecified hyperlipidemia 272.4 Active 50532138 Problem Need for prophylactic vaccination and inoculation, Influenza V04.81 Active 596420074 Problem Headache 784.0 Active 80323356 Problem Encounter for long-term (current) use of other medications V58.69 Active 015042800 Problem Syncope and collapse 780.2 Active 511079129 Problem Personal history of tobacco use, presenting hazards to health V15.82 Active 8567371157581 Problem Cervicalgia 723.1 Active 25878061 ALLERGIES Substance Reaction Event Type Date Status Dilaudid dizziness Drug Allergy Nov, Active ENCOUNTERS Encounter Location Date Diagnosis [facility] [address] [facility] [id number] [address] Jul, [facility] [id number] [address] Jul, [facility] [address] [id number] [address] Jul, Chronic pain syndrome G89.4 [facility] [address] [id number] [address] Jul, Pre-op evaluation Z01.818 [facility] [id number] [place] [address] 39876- 6846 Jul, [facility] [id number] [place] [address] 47501- 4032 Jun, Anxiety disorder, unspecified F41.9 and Chronic pain syndrome G89.4 [facility] [id number] [place] [address] 90421- 7404 Jun, [facility] [id number] [place] [address] 39671- 0111 Jun, [facility] [id number] [place] [address] 02778- 1519 Jun, [facility] [id number] [place] [address] 93857- 5365 Jun, [facility] [id number] [place] [address] 42438- 9121 Jun, Lumbar neuritis M54.16 [facility] [id number] [place] [address] 17830- 6201 May, [facility] [id number] [place] [address] 59186- 2763 May, [facility] [id number] [place] [address] 67036- 9399 May, Encounter for therapeutic drug level monitoring Z51.81 ; Encounter for immunization Z23 and Chronic pain syndrome G89.4 [facility] [id number] [place] [address] 77976- 9405 May, Lumbar neuritis M54.16 [facility] [id number] [place] [address] 89998- 8634 May, [facility] [id number] [place] [address] 68958- 2521 Apr, Lumbar neuritis M54.16 [facility] [address] [id number] [address] 49[address] 06 Apr, 2017 [facility] [id number] [place] [address] 85463- 1216 Mar, Lumbar neuritis M54.16 [facility] [id number] [place] [address] 87304- 4066 Mar, [facility] [id number] [place] [address] 23929- 3547 Mar, [facility] [id number] [place] [address] 49455- 1297 Feb, Lumbar neuritis M54.16 [facility] [id number] [place] [address] 00432- 9231 18 Feb, 2017 Lumbar neuritis M54.16 [facility] [id number] [place] [address] 38263- 1893 16 Feb, 2017 [facility] [id number] [place] [address] 66191- 3384 09 Feb, 2017 [facility] [id number] [place] [address] 44253- 1369 25 Jan, 2017 [facility] [id number] [place] [address] 73862- 7613 22 Jan, 2017 Peroneal tendonitis of left lower extremity M76.72 [facility] [id number] [place] [address] 62458- 7357 20 Jan, 2017 Lumbar neuritis M54.16 [facility] [id number] [place] [address] 01932- 5386 12 Jan, 2017 [facility] [id number] [place] [address] 19050- 2546 2016 Lumbar neuritis M54.16 [facility] [id number] [place] [address] 29153- 1162 Dec, [facility] [id number] [place] [address] 03322- 5524 Dec, Pain in right knee M25.561 ; Lumbar neuritis M54.16 and Cervical neuritis M54.12 [facility] [id number] [place] [address] 38825- 7959 Dec, [facility] [address] 02885- 1214 Dec, [facility] [id number] [place] [address] 34235- 5422 Nov, Lumbar neuritis M54.16 [facility] [id number] [place] [address] 95855- 9980 Nov, Bilateral primary osteoarthritis of knee M17.0 [facility] [id number] [place] [address] 42794- 2401 Nov, [facility] [id number] [place] [address] 24366- 4490 Nov, Bronchitis J40 and Plantar fasciitis M72.2 [facility] [id number] [place] [address] 60173- 9398 Nov, [facility] [id number] [place] [address] 10591- 6358 Oct, Lumbar neuritis M54.16 [facility] [id number] [place] [address] 27985- 1971 Oct, Lumbar neuritis M54.16 [facility] [id number] [place] [address] 84018- 1164 Oct, Lumbar neuritis M54.16 [facility] [id number] [place] [address] 51885- 3618 Oct, Plantar fasciitis M72.2 and Pain in right knee M25.561 [facility] [address] 29336- 7724 16 Oct, 2016 Lumbar neuritis M54.16 ; Cervical neuritis M54.12 ; Other specified abdominal hernia without obstruction or gangrene K45.8 ; Heel spur, left M77.32 ; Plantar fasciitis M72.2 and Pain in right knee M25.561 [facility] [id number] [address]- 7336 13 Oct, 2016 [facility] [address] [facility] [id number] [place] [address] 69128- 9037 14 Aug, 2014 [facility] [address] [facility] [id number] [place] [address] 32297- 6439 Aug, [facility] [id number] [place] [address] 63371- 5858 Apr, [facility] [id number] [place] [address] 73426- 4069 Apr, [facility] [id number] [place] [address] 61608- 3732 Mar, [facility] [id number] [place] [address] 91832- 8174 Mar, [facility] [id number] [place] [address] 15590- 2613 Feb, [facility] [address] [address]- 2644 Feb, [facility] [address] [address]- 5657 Feb, [facility] [address] [address]- 7750 Feb, [facility] [id number] [place] [address] 15706- 2777 Feb, [facility] [id number] [address]- 1463 Feb, [facility] [id number] [place] [address] [place] [address]- 4173 07 Oct, 2013 [facility] [place] [facility] [address] [id number] [place] [address]- 9823 07 Oct, 2013 [facility] [place] [facility] [address] [id number] [place] [address]- 2066 30 Sep, 2013 [facility] [place] [facility] [address] [id number] [place] [address] 2546 30 Sep, 2013 [facility] [place] [facility] [address] [id number] [place] [address]- 2545 30 Sep, 2013 [facility] [place] [facility] [address] [id number] [place] [address]- 5662 30 Sep, 2013 [facility] [place] [facility] [address] [id number] [place] [address]- 2888 30 Sep, 2013 [facility] [place] [facility] [address] [id number] [place] [address]- 6065 30 Sep, 2013 [facility] [place] [facility] [address] [id number] [place] [address]- 254 26 Sep, 2013 [facility] [place] [facility] [address] [id number] [place] [address] 2549 26 Sep, 2013 [facility] [place] [facility] [address] [id number] [place] [address]- 2543 22 Sep, 2013 [facility] [place] [facility] [address] [id number] [place] [address] 2549 22 Sep, 2013 [facility] [place] [facility] [address] [id number] [address]- 2546 16 Sep, 2013 [facility] [place] [facility] [address] [id number] [place] [address] 2546 16 Sep, 2013 [facility] [place] [facility] [address] [id number] [place] [address]- 2546 16 Sep, 2013 [facility] [place] [facility] [address] [id number] [place] [address]- 2540 16 Sep, 2013 [facility] [place] [facility] [address] [id number] [place] [address]- 4042 12 Jan, 2013 [facility] [place] [facility] [address] [id number] [place] [address]- 5116 Jan, 2013 [facility] [place] [facility] [address] [id number] [place] [address] 2549 Jan, 2013 [facility] [place] [facility] [address] [id number] [place] [address]- 0576 Jan, 2013 [facility] [place] [facility] [address] [id number] [place] [address] 2549 Jan, 2013 [facility] [place] [facility] [address] [id number] [place] [address]- 9060 Jan, 2013 [facility] [place] [facility] [address] [id number] [place] [address]- 2368 Jan, 2013 [facility] [place] [facility] [address] [id number] [place] [address]- 5804 Jan, 2013 [facility] [place] [facility] [address] [id number] [place] [address]- 1103 Jan, 2013 [facility] [place] [facility] [address] [id number] [place] [address]- 2530 Jan, 2013 [facility] [place] [facility] [address] [id number] [place] [address]- 8432 Dec, [facility] [place] [facility] [address] [id number] [place] [address]- 2544 Dec, [facility] [place] [facility] [address] [id number] [place] [address]- 5199 Dec, [facility] [place] [facility] [address] [id number] [place] [address]- 2540 Dec, [facility] [place] [facility] [address] [id number] [place] [address]- 9788 Dec, [facility] [place] [facility] [address] [id number] [place] [address]- 5078 Dec, [facility] [place] [facility] [address] [id number] [place] [address]- 5567 Dec, [facility] [place] [facility] [address] [id number] [place] [address]- 5101 Dec, [facility] [place] [facility] [address] [id number] [place] [address]- 0415 Dec, [facility] [place] [facility] [address] [id number] [place] [address]- 4409 Dec, [facility] [place] [facility] [address] [id number] [place] [address]- 7310 Dec, [facility] [place] [facility] [address] [id number] [place] [address]- 7291 Dec, [facility] [place] [facility] [address] [id number] [place] [address]- 6215 Dec, [facility] [place] [facility] [address] [id number] [place] [address]- 2968 Dec, [facility] [place] [facility] [address] [id number] [place] [address]- 8506 Dec, [facility] [place] [facility] [address] [id number] [place] [address]- 8945 Dec, [facility] [place] [facility] [address] [id number] [place] [address]- 8807 Dec, [facility] [place] [facility] [address] [id number] [place] [address]- 3196 Dec, [facility] [place] [facility] [address] [id number] [place] [address]- 0030 Dec, [facility] [place] [facility] [address] [id number] [place] [address]- 5848 Nov, [facility] [place] [facility] [address] [id number] [place] [address]- 0611 Nov, [facility] [place] [facility] [id number] [address] 2546 Nov, [facility] [id number] [address]- 2536 Nov, [facility] [id number] [address] 2546 Nov, [facility] [id number] [address]- 2546 Nov, [facility] [id number] [address]- 2546 Nov, [facility] [id number] [address]- 2546 Nov, [facility] [address] [address]- 2546 Nov, [facility] [address] [address]- 2546 Nov, [facility] [id number] [address]- 2546 Nov, [facility] [id number] [address] 2546 Oct, [facility] [id number] [address]- 2546 Oct, [facility] [id number] [address]- 2546 Oct, [facility] [address] [facility] [id number] [place] [address]- 2546 Apr, IMMUNIZATIONS No Known Immunizations SOCIAL HISTORY Never Assessed REASON FOR VISIT Pain management (chronic). Pt had an MRI about 6 months ago and that showed that he has some bone spurs growing in his neck again and has scoliosis. , cough x 3 weeks. Different than a smokers cough. Productive cough and during the night his has to turn him on his side to prevent choking. CIARA Dubois PLAN OF CARE VITAL SIGNS Height 70 in 2016-11-28 Weight 208 lbs 2016-11-28 Temperature 98.2 degrees Fahrenheit 2016-11-28 Heart Rate 112 bpm 2016-11-28 Respiratory Rate 20 2016-11-28 BMI 29.84 kg/m2 2016-11-28 Blood pressure systolic 134 mmHg 2016-11-28 Blood pressure diastolic 92 mmHg 2016-11-28 MEDICATIONS Medication Instructions Dosage Frequency Start Date End Date Duration Status Aspirin 81 mg 1 tablet by Oral route 1 time per day Dec, Active Norvasc 10 mg Orally Once a day 1 tablet 24h Active Gabapentin 300 MG Orally Three times a day 2 capsules 8h Active Tiotropium [place]-Olodaterol 2.5-2.5 MCG/ACT Inhalation Once a day 2 puffs 24h Active Diazepam 10 mg Orally Once a day, at bed time 1 tablet Active Lipitor 80 mg 1 tablet by Oral route 1 time per day Active Morphine Sulfate ER 30 MG Orally at bed time 1 tablet Oct, 28 days Active Cymbalta 30 MG Orally Twice a day 1 capsule 12h Active Hydrocodone-Acetaminophen 10-325 MG Orally every 8 hours, PRN 1 tablet as needed Oct, Nov, 28 days Active ProAir HFA 108 (90 Base) MCG/ACT INHALE 2 PUFFS INTO LUNGS EVERY FOUR HOURS NEEDED FOR SHORTNESS OF BREATH Active Flonase 50 MCG/ACT Nasally Once a day 1 spray in each nostril 24h Active Voltaren 1 % Transdermal 2 times a day apply 1g to affected area 12h Nov Active Cyclobenzaprine HCl 10 mg Orally Three times a day 1 tablet as needed 8h Active Prevacid 30 mg 1 capsule 24h Dec, Active Morphine Sulfate ER 60 mg Orally Once a day 1 capsule 24h Oct, Active Captopril 25 mg 1 tablet 12h Nov, Active Doxycycline Hyclate 100 mg Orally every 12 hrs 1 capsule 12h Nov, Nov, 10 days Active RESULTS Name Result Date Reference Range Xray : Knees, Bilateral (IN HOUSE) 2016-11-28 Xray: Feet, Bilateral (IN HOUSE) 2016-11-28 PROCEDURES Procedure Date Ordered Result Body Site X-RAY EXAM OF KNEES November 28, 2016 X-RAY EXAM OF FOOT November 28, 2016 INSTRUCTIONS MEDICATIONS ADMINISTERED No Known Medications [...]
--- OUTSIDE RECORDS SUMMARY | 2018-04-14 06:08 | XMS REPORT ---
Author Author BONNY BRANNON Organization [facility] Address [address] [place] [address] Care Team Providers Care Hat Block Bench Hand Name Role Phone BONNY BRANNON Unavailable PROBLEMS Type Condition ICD9-CM Code FQG45-IQ Code Onset Dates Condition Status SNOMED Code Problem Anxiety disorder, unspecified F41.9 Active 371723328 Problem Chronic pain syndrome G89.4 Active 278474557 Problem Bilateral primary osteoarthritis of knee M17.0 Active 073525816 ALLERGIES No Information ENCOUNTERS Encounter Location Date Diagnosis [place] [id number] [place] [address] 03089- 7074 Nov, [facility] [id number] [place] [address] 82138- 4550 Oct, [facility] [id number] [place] [address] 88087- 0914 Oct, [facility] [id number] [place] [address] 47599- 3013 Oct, [facility] [id number] [place] [address] 43511- 9405 Oct, Allergic reaction to drug, subsequent encounter T78.40XD [facility] [id number] [place] [address] 09820- 5282 September, [facility] [id number] [place] [address] 22366- 4865 September, [facility] [id number] [place] [address] 75258- 0762 September, Low back pain radiating to lower extremity M54.5 [facility] [id number] [place] [address] 31803- 0716 Aug, [facility] [id number] [address] 6219 Aug, [facility] [id number] [place] [address] 86302- 2316 Aug, [facility] [id number] [address]- 3076 Aug, [facility] [id number] [place] [address] 07583- 7623 Aug, Incisional infection, initial encounter T81.4XXA [facility] [id number] [place] [address] 51602- 9406 Aug, [facility] [id number] [place] [address] 48726- 5726 Jul, [facility] [id number] [place] [address] 49446- 3414 Jul, [facility] [id number] [place] [address] 98679- 8835 Jul, Chronic pain syndrome G89.4 [facility] [id number] [place] [address] 74193- 1608 Jul, Pre-op evaluation Z01.818 [facility] [id number], [place] [address]- 7294 Jul, [facility] [id number] [place] [address] 60407- 9050 Jun, Anxiety disorder, unspecified F41.9 and Chronic pain syndrome G89.4 [facility] [id number] [place] [address] 25547- 8744 Jun, [facility] [address] [address]- 5223 Jun, [facility] [id number] [place] [address] 35734- 3792 Jun, [facility] [address], [place] [address]- 1773 Jun, [facility] [id number] [place] [address] 89921- 8502 Jun, Lumbar neuritis M54.16 [facility] [id number] [place] [address] 05175- 1975 May, [facility] [id number] [place] [address] 41984- 7331 May, [facility] [id number] [place] [address] 51990- 0486 May, Encounter for therapeutic drug level monitoring Z51.81 ; Encounter for immunization Z23 and Chronic pain syndrome G89.4 [facility] [id number] [place] [address] 45248- 2277 May, Lumbar neuritis M54.16 [facility] [id number] [place] [address] 99525- 7618 May, [facility] [id number] [place] [address] 25689- 4090 Apr, Lumbar neuritis M54.16 [facility] [id number] [place] [address] 53691- 0203 Apr, [facility] [id number] [place] [address] 41940- 3899 Mar, Lumbar neuritis M54.16 [facility] [id number] [place] [address] 67051- 5372 Mar, [facility] [id number] [place] [address] 14432- 1901 Mar, [facility] [address] [address]- 8411 Feb, Lumbar neuritis M54.16 [facility] [id number] [place] [address] 74638- 8793 Feb, Lumbar neuritis M54.16 [facility] [id number] [place] [address] 12011- 2195 16 Feb, 2017 [facility] [id number] [place] [address] 02586- 3147 09 Feb, 2017 [facility] [id number] [place] [address] 44093- 9267 25 Jan, 2017 [facility] [id number] [place] [address] 81049- 1662 22 Jan, 2017 Peroneal tendonitis of left lower extremity M76.72 [facility] [id number] [place] [address] 70232- 8342 20 Jan, 2017 Lumbar neuritis M54.16 [facility] [id number] [place] [address] 36076- 8967 Jan, [facility] [id number] [place] [address] 46433- 4907 Dec, Lumbar neuritis M54.16 [facility] [id number] [place] [address] 72673- 2361 Dec, [facility] [id number] [place] [address] 69374- 1901 Dec, Pain in right knee M25.561 ; Lumbar neuritis M54.16 and Cervical neuritis M54.12 [facility] [id number] [place] [address] 95695- 3073 Dec, [facility] [id number] [place] [address] 06572- 9368 Dec, [facility] [id number] [place] [address] 52041- 2992 Nov, Lumbar neuritis M54.16 [facility] [id number] [place] [address] 23941- 3100 Nov, Bilateral primary osteoarthritis of knee M17.0 [facility] [id number] [place] [address] 11784- 8357 14 Nov, 2016 [facility] [id number] [place] [address] 89861- 3715 Nov, Bronchitis J40 and Plantar fasciitis M72.2 [facility] [id number] [place] [address] 76571- 4475 Nov, [facility] [id number] [place] [address] 86083- 3350 Oct, Lumbar neuritis M54.16 [facility] [id number] [place] [address] 76933- 9404 Oct, Lumbar neuritis M54.16 [facility] [id number] [place] [address] 42733- 5699 Oct, Lumbar neuritis M54.16 [facility] [id number] [place] [address] 09180- 5116 Oct, Plantar fasciitis M72.2 and Pain in right knee M25.561 [facility] [id number] [place] [address] 25058- 0086 16 Oct, 2016 Lumbar neuritis M54.16 ; Cervical neuritis M54.12 ; Other specified abdominal hernia without obstruction or gangrene K45.8 ; Heel spur, left M77.32 ; Plantar fasciitis M72.2 and Pain in right knee M25.561 [facility] [id number] [place] [address] 72380- 3868 13 Oct, 2016 [facility] [id number] [place] [address] 50897- 6590 Aug, [facility] [id number] [place] [address] 90031- 0036 Aug, [facility] [id number] [place] [address] 83383- 1156 Apr, [facility] [id number] [address]- 3360 Apr, [facility] [place] [facility] [address] [id number] [place] [address]- 5200 Mar, [facility] [place] [facility] [address] [id number] [place] [address]- 2278 Mar, [facility] [place] [facility] [address] [id number] [place] [address]- 3625 Feb, [facility] [place] [facility] [address] [id number] [place] [address]- 5765 Feb, [facility] [place] [facility] [address] [id number] [place] [address]- 5664 Feb, [facility] [place] [facility] [address] [id number] [place] [address]- 0724 Feb, [facility] [place] [facility] [address] [id number] [place] [address]- 8717 Feb, [facility] [place] [facility] [address] [id number] [place] [address]- 0439 Feb, [facility] [place] [facility] [address] [facility] [id number] [place] [address]- 4492 Feb, [facility] [place] [facility] [address] [facility] [id number] [place] [address]- 1113 Feb, [facility] [place] [facility] [address] [id number] [place] [address]- 1638 30 Jan, 2013 [facility] [place] [facility] [address] [id number] [place] [address]- 4530 30 Sep, 2013 [facility] [place] [facility] [address] [id number] [place] [address]- 1063 30 Jan, 2013 [facility] [place] [facility] [address] [facility] [id number] [place] [address]- 0382 30 Jan, 2013 [facility] [place] [facility] [address] [id number] [place] [address]- 3929 30 Jan, 2013 [facility] [place] [facility] [address] [id number] [place] [address]- 3147 30 Sep, 2013 [facility] [place] [facility] [address] [id number] [place] [address]- 5556 26 Sep, 2013 [facility] [place] [facility] [address] [id number] [place] [address]- 6886 26 Sep, 2013 [facility] [place] [facility] [address] [id number] [place] [address] 2544 22 Sep, 2013 [facility] [place] [facility] [address] [id number] [place] [address]- 5680 22 Sep, 2013 [facility] [place] [facility] [address] [id number] [place] [address]- 5380 16 Sep, 2013 [facility] [place] [facility] [address] [id number] [place] [address]- 5040 16 Sep, 2013 [facility] [place] [facility] [address] [id number] [place] [address]- 8497 16 Sep, 2013 [facility] [place] [facility] [address] [id number] [place] [address]- 0012 16 Sep, 2013 [facility] [place] [facility] [address] [id number] [place] [address]- 7341 12 Sep, 2013 [facility] [place] [facility] [address] [id number] [place] [address] 2543 12 Sep, 2013 [facility] [place] [facility] [address] [id number] [address]- 2545 12 Sep, 2013 [facility] [place] [facility] [address] [id number] [place] [address] 2545 12 Sep, 2013 [facility] [place] [facility] [address] [id number] [place] [address]- 2544 09 Sep, 2013 [facility] [place] [facility] [address] [id number], [place] [address]- 5216 09 Sep, 2013 [facility] [place] [facility] [address] [id number], [place] [address]- 8358 Jan, [facility] [place] [facility] [address] [id number] [place] [address]- 2087 Jan, [facility] [place] [facility] [address] [id number] [place] [address]- 9596 Jan, [facility] [place] [facility] [address] [id number] [place] [address]- 8304 Jan, [facility] [place] [facility] [address] [id number] [place] [address]- 9947 Dec, [facility] [place] [facility] [address] [id number] [place] [address]- 3017 Dec, [facility] [place] [facility] [address] [id number] [place] [address]- 4140 Dec, [facility] [place] [facility] [address] [id number] [place] [address]- 2362 Dec, [facility] [place] [facility] [address] [id number] [place] [address]- 4389 Dec, [facility] [place] [facility] [address] [id number] [place] [address]- 4768 Dec, [facility] [place] [facility] [address] [id number] [place] [address]- 0949 Dec, [facility] [place] [facility] [address] [id number] [place] [address]- 2552 Dec, [facility] [place] [facility] [address] [id number] [place] [address]- 8517 Dec, [facility] [place] [facility] [address] [id number] [place] [address]- 8161 Dec, [facility] [place] [facility] [address] [id number] [place] [address]- 3038 Dec, [facility] [place] [facility] [address] [id number] [place] [address]- 0429 Dec, [facility] [place] [facility] [address] [id number] [place] [address]- 4373 Dec, [facility] [place] [facility] [address] [id number] [place] [address]- 6816 Dec, [facility] [place] [facility] [address] [id number] [place] [address]- 9916 Dec, [facility] [place] [facility] [address] [id number] [place] [address]- 4655 Dec, [facility] [place] [facility] [address] [id number] [place] [address]- 8176 Dec, [facility] [place] [facility] [address] [id number] [place] [address]- 1060 Dec, [facility] [place] [facility] [address] [id number] [place] [address]- 0352 Dec, [facility] [place] [facility] [address] [id number] [place] [address]- 7938 Nov, [facility] [place] [facility] [address] [id number] [place] [address]- 4495 Nov, [facility] [place] [facility] [address] [id number] [place] [address]- 0284 Nov, [facility] [place] [facility] [address] [id number] [place] [address]- 9399 Nov, [facility] [place] [facility] [address] [id number] [place] [address]- 3957 Nov, [facility] [place] [facility] [address] [id number] [place] [address]- 2138 Nov, [facility] [place] [facility] [address] [id number] [place] [address]- 1485 Nov, [facility] [place] [facility] [address] [id number] [place] [address]- 6326 Nov, [facility] [place] [facility] [address] [id number] [place] [address]- 3848 Nov, [facility] [address] [facility] [id number], [place] [address]- 0506 Nov, [facility] [address] [facility] [id number], [place] [address]- 2546 Nov, [facility] [address] [facility] [id number], [place] [address]- 4476 Oct, [facility] [address] [facility] [id number], [place] [address]- 2546 Oct, [facility] [address] [facility] [id number], [place] [address]- 1046 Oct, [facility] [address] [facility] [id number], [place] [address]- 2676 Apr, IMMUNIZATIONS No Known Immunizations SOCIAL HISTORY Never Assessed REASON FOR VISIT Morphine PLAN OF CARE VITAL SIGNS MEDICATIONS Medication Instructions Dosage Frequency Start Date End Date Duration Status Morphine Sulfate ER 15 MG Orally once a day in the morning (take with 30mg tablet) 1 tablet Jun, Jul, 14 days Active Morphine Sulfate ER 30 MG Orally twice a day 1 capsule 12h Jun, Jul, 14 days Active RESULTS No Results [...]
--- OUTSIDE RECORDS SUMMARY | 2018-04-14 06:08 | XMS REPORT ---
Author Author PREETHI YIN Organization [facility] Address [address] [place] [address] Care Team Providers Care Insurance Associate Name Role Phone PREETHI YIN Unavailable PROBLEMS Type Condition ICD9-CM Code [id number] Code Onset Dates Condition Status SNOMED Code Problem Chronic airway obstruction, not elsewhere classified 496 Active 01622216 Problem Unspecified essential hypertension 401.9 Active 67118256 Problem Occlusion and stenosis of carotid artery without mention of cerebral infarction 433.10 Active 625127654000037 Problem Anxiety disorder, unspecified F41.9 Active 343514337 Problem Chronic pain syndrome G89.4 Active 710160453 Problem Anxiety state, unspecified 300.00 Active 911237244 Problem Chronic pain syndrome 338.4 Active 372625455 Problem Bilateral primary osteoarthritis of knee M17.0 Active 770225438 Problem Other and unspecified hyperlipidemia 272.4 Active 12251416 Problem Need for prophylactic vaccination and inoculation, Influenza V04.81 Active 157792145 Problem Headache 784.0 Active 29080758 Problem Encounter for long-term (current) use of other medications V58.69 Active 438612733 Problem Syncope and collapse 780.2 Active 854454694 Problem Personal history of tobacco use, presenting hazards to health V15.82 Active [id number] Problem Cervicalgia 723.1 Active 55556967 ALLERGIES No Information ENCOUNTERS Encounter Location Date Diagnosis [facility] [id number], [place] [address] September, Low back pain radiating to lower extremity M54.5 [facility] [id number] [place] [address]1782- 8785 Aug, [facility] [address] [address] Aug, [facility] [address] [place] [address]348- 8312 Aug, [facility] [id number] [place] [address] 65441- 6686 Aug, [facility] [id number] [place] [address] 92854- 5775 Aug, Incisional infection, initial encounter T81.4XXA [facility] [id number] [place] [address] 13498- 4272 Aug, [facility] [id number] [place] [address] 77458- 0294 Jul, [facility] [id number] [place] [address] 09462- 7256 Jul, [facility] [id number] [place] [address] 49594- 9701 Jul, Chronic pain syndrome G89.4 [facility] [id number] [place] [address] 14811- 9468 Jul, Pre-op evaluation Z01.818 [facility] [id number] [place] [address] 74839- 6412 Jul, [facility] [id number] [place] [address] 76288- 0124 Jun, Anxiety disorder, unspecified F41.9 and Chronic pain syndrome G89.4 [facility] [id number] [place] [address] 29361- 8050 Jun, [facility] [address] [place] [address] 02290- 1795 Jun, [facility] [id number] [place] [address] 20093- 3146 Jun, [facility] [id number] [place] [address] 79301- 7207 Jun, [facility] [id number] [place] [address] 87693- 2143 Jun, Lumbar neuritis M54.16 [facility] [id number] [place] [address] 78542- 6066 May, [facility] [id number] [place] [address] 30316- 5132 May, [facility] [id number] [place] [address] 89789- 7409 May, Encounter for therapeutic drug level monitoring Z51.81 ; Encounter for immunization Z23 and Chronic pain syndrome G89.4 [facility] [id number] [place] [address] 49524- 6639 May, Lumbar neuritis M54.16 [facility] [id number] [place] [address] 86571- 9301 May, [facility] [id number] [place] [address] 45398- 5424 Apr, Lumbar neuritis M54.16 [facility] [id number] [place] [address] 47805- 6354 Apr, [facility] [id number] [place] [address] 47710- 5245 Mar, Lumbar neuritis M54.16 [facility] [address] [place] [address] 59952- 7453 Mar, [facility] [id number] [place] [address] 87601- 4775 Mar, [facility] [id number] [place] [address] 29477- 1131 Feb, Lumbar neuritis M54.16 [facility] [id number] [place] [address] 66126- 9030 Feb, Lumbar neuritis M54.16 [facility] [address] [place] [address] 52220- 8489 Feb, [facility] [id number] [address] Feb, [facility] [id number] [place] [address] 15015- 5350 25 Jan, 2017 [facility] [id number] [place] [address] 28772- 2961 22 Jan, 2017 Peroneal tendonitis of left lower extremity M76.72 [facility] [id number] [place] [address] 38196 2547 20 Jan, [address] [facility] [id number] [place] [address] 83865- 1099 Jan, [facility] [id number] [place] [address] 37345- 8633 [address] [facility] [id number] [place] [address] 04719- 3600 Dec, [facility] [id number] [place] [address] 42312- 9185 Dec, Pain in right knee M25.561 ; Lumbar neuritis M54.16 and Cervical neuritis M54.12 [facility] [id number] [place] [address] 65690- 5084 Dec, [facility] [id number] [place] [address] 68049- 2233 Dec, [facility] [id number] [place] [address] 45668- 3294 Nov, Lumbar neuritis M54.16 [facility] [id number] [place] [address] 59122- 6680 Nov, Bilateral primary osteoarthritis of knee M17.0 [facility] [address] [place] [address] 23372- 0420 Nov, [facility] [address] [place] [address] 86605- 3448 Nov, Bronchitis J40 and Plantar fasciitis M72.2 [facility] [id number] [place] [address] 37096- 0985 Nov, [facility] [address] 54194- 3516 Oct, Lumbar neuritis M54.16 [facility] [address] 35249- 9795 Oct, Lumbar neuritis M54.16 [facility] [address] 16476- 9364 Oct, Lumbar neuritis M54.16 [facility] [address] 56443- 1544 26 Oct, 2016 Plantar fasciitis M72.2 and Pain in right knee M25.561 [facility] [address] 22814- 6541 16 Oct, 2016 Lumbar neuritis M54.16 ; Cervical neuritis M54.12 ; Other specified abdominal hernia without obstruction or gangrene K45.8 ; Heel spur, left M77.32 ; Plantar fasciitis M72.2 and Pain in right knee M25.561 [facility] [id number] [place] [address] 22439- 59[address], [address] [facility] [id number] [place] [address] 50722- 9818 [address], [address] [facility] [id number] [place] [address] 98503- 7741 Aug, [facility] [id number] [place] [address] 61972- 5200 Apr, [facility] [id number] [place] [address] 55632- 6275 Apr, [facility] [id number] [place] [address] 12641- 9919 Mar, [facility] [place] [facility] [address] [facility] [id number] [place] [address]- 1692 13 Mar, 2013 [facility] [place] [facility] [address] [id number] [place] [address]- 5626 10 Feb, 2013 [facility] [place] [facility] [address] [id number] [place] [address]- 9336 10 Feb, 2013 [facility] [place] [facility] [address] [id number] [place] [address]- 1897 Feb, 2013 [facility] [place] [facility] [address] [id number] [place] [address]- 4542 Feb, 2013 [facility] [place] [facility] [address] [id number] [place] [address]- 0983 Feb, 2013 [facility] [place] [facility] [address] [id number] [place] [address]- 8224 Feb, 2013 [facility] [place] [facility] [address] [id number] [place] [address]- 3826 Feb, 2013 [facility] [place] [facility] [address] [id number] [place] [address]- 0276 07 Feb, 2013 [facility] [place] [facility] [address] [id number] [place] [address]- 4077 30 Jan, 2013 [facility] [place] [facility] [address] [id number] [place] [address]- 2468 30 Sep, 2013 [facility] [place] [facility] [address] [id number] [place] [address]- 2548 30 Sep, 2013 [facility] [place] [facility] [address] [id number] [place] [address]- 2546 30 Sep, 2013 [facility] [place] [facility] [address] [id number] [place] [address] 2546 30 Sep, 2013 [facility] [place] [facility] [address] [id number] [place] [address]- 2546 30 Sep, 2013 [facility] [place] [facility] [address] [id number] [place] [address]- 254 26 Sep, 2013 [facility] [place] [facility] [address] [id number] [place] [address]- 7704 26 Sep, 2013 [facility] [place] [facility] [address] [id number] [place] [address]- 7919 22 Sep, 2013 [facility] [place] [facility] [address] [id number] [place] [address]- 7304 22 Sep, 2013 [facility] [place] [facility] [address] [id number] [place] [address]- 3581 16 Sep, 2013 [facility] [place] [facility] [address] [id number] [place] [address]- 2921 16 Sep, 2013 [facility] [place] [facility] [address] [id number] [place] [address]- 1178 16 Sep, 2013 [facility] [place] [facility] [address] [id number] [place] [address]- 3747 16 Sep, 2013 [facility] [place] [facility] [address] [id number] [place] [address]- 9077 12 Sep, 2013 [facility] [place] [facility] [address] [id number] [place] [address]- 6028 12 Sep, 2013 [facility] [place] [facility] [address] [id number] [place] [address]- 5013 12 Sep, 2013 [facility] [place] [facility] [address] [id number] [place] [address]- 5680 12 Sep, 2013 [facility] [place] [facility] [address] [id number] [address]- 4759 09 Sep, 2013 [facility] [place] [facility] [address] [id number] [place] [address]- 2544 09 Sep, 2013 [facility] [place] [facility] [address] [id number] [place] [address]- 9965 09 Sep, 2013 [facility] [place] [facility] [address] [id number] [place] [address]- 3142 09 Sep, 2013 [facility] [place] [facility] [address] [id number] [place] [address]- 2480 Jan, [facility] [place] [facility] [address] [id number] [place] [address]- 9586 Jan, [facility] [place] [facility] [address] [id number] [place] [address]- 6995 Dec, [facility] [place] [facility] [address] [id number] [place] [address]- 6903 Dec, [facility] [place] [facility] [address] [id number] [place] [address]- 0317 Dec, [facility] [place] [facility] [address] [id number] [place] [address]- 0436 Dec, [facility] [place] [facility] [address] [id number] [place] [address]- 7663 Dec, [facility] [place] [facility] [address] [id number] [place] [address]- 8235 Dec, [facility] [place] [facility] [address] [id number] [place] [address]- 7153 Dec, [facility] [place] [facility] [address] [id number] [place] [address]- 7704 Dec, [facility] [place] [facility] [address] [id number] [place] [address]- 3641 Dec, [facility] [place] [facility] [address] [id number] [place] [address]- 0960 Dec, [facility] [place] [facility] [address] [id number] [place] [address]- 3391 Dec, [facility] [place] [facility] [address] [id number] [place] [address]- 6709 Dec, [facility] [place] [facility] [address] [id number] [place] [address]- 2797 Dec, [facility] [place] [facility] [address] [id number] [place] [address]- 2478 Dec, [facility] [place] [facility] [address] [id number] [place] [address]- 4962 Dec, [facility] [place] [facility] [address] [id number] [place] [address]- 3213 Dec, [facility] [place] [facility] [address] [id number] [place] [address]- 6007 Dec, [facility] [place] [facility] [address] [id number] [place] [address]- 3953 Dec, [facility] [place] [facility] [address] [id number] [place] [address]- 2918 Dec, [facility] [place] [facility] [address] [id number] [place] [address]- 5995 Nov, [facility] [place] [facility] [address] [id number] [place] [address]- 8153 Nov, [facility] [place] [facility] [address] [id number] [place] [address]- 8009 Nov, [facility] [place] [facility] [address] [id number] [place] [address]- 2537 Nov, [facility] [place] [facility] [address] [id number] [place] [address]- 9218 Nov, [facility] [place] [facility] [address] [id number] [place] [address]- 6291 Nov, [facility] [place] [facility] [address] [id number] [place] [address]- 1093 Nov, [facility] [place] [facility] [address] [id number] [place] [address]- 0495 Nov, [facility] [place] [facility] [address] [id number] [place] [address]- 3581 Nov, [facility] [place] [facility] [address] [id number] [place] [address]- 5895 Nov, [facility] [place] [facility] [address] [id number] [place] [address]- 3049 Nov, [facility] [address] [facility] [id number] [place] [address] 99[address] Oct, [facility] [address] [facility] [id number] [address] Oct, [facility] [address] [facility] [id number] [place] [address]- 2546 Oct, [facility] [address] [facility] [id number], [place] [address]- 2546 Apr, IMMUNIZATIONS No Known Immunizations SOCIAL HISTORY Never Assessed REASON FOR VISIT Controlled Med Refill 02/25/17 PLAN OF CARE VITAL SIGNS MEDICATIONS Medication [...]
--- OUTSIDE RECORDS SUMMARY | 2018-04-14 06:08 | XMS REPORT ---
Author Author PREETHI YIN Organization [facility] Address [address] [place] [address] Care Team Providers Care Director Regulatory Affairs Name Role Phone PREETHI YIN Unavailable PROBLEMS Type Condition ICD9-CM Code KGA32-HH Code Onset Dates Condition Status SNOMED Code Problem Chronic airway obstruction, not elsewhere classified 496 Active 15319894 Problem Unspecified essential hypertension 401.9 Active 50145819 Problem Occlusion and stenosis of carotid artery without mention of cerebral infarction 433.10 Active 685930063354320 Problem Anxiety disorder, unspecified F41.9 Active 952897309 Problem Chronic pain syndrome G89.4 Active 365167433 Problem Anxiety state, unspecified 300.00 Active 879845624 Problem Chronic pain syndrome 338.4 Active 907070452 Problem Bilateral primary osteoarthritis of knee M17.0 Active 049152444 Problem Other and unspecified hyperlipidemia 272.4 Active 80835652 Problem Need for prophylactic vaccination and inoculation, Influenza V04.81 Active 625692171 Problem Headache 784.0 Active 14816984 Problem Encounter for long-term (current) use of other medications V58.69 Active 799998071 Problem Syncope and collapse 780.2 Active 942918180 Problem Personal history of tobacco use, presenting hazards to health V15.82 Active 1661010369955 Problem Cervicalgia 723.1 Active 40514206 ALLERGIES No Information ENCOUNTERS Encounter Location Date Diagnosis [facility] [address] [id number], [place] [address] Aug, [facility] [id number] [place] [address] 84277- 9269 Aug, [facility] [address], [place] [address] Aug, Incisional infection, initial encounter [facility] [place] [id number] [place] [address] 99323- 3572 Aug, [facility] [id number] [place] [address] 02713- 2633 Jul, [facility] [id number] [place] [address] 873407- 4089 Jul, [facility] [id number] [place] [address] 65049- 3438 Jul, Chronic pain syndrome G89.4 [facility] [id number] [place] [address] 45495- 1413 Jul, Pre-op evaluation Z01.818 [facility] [id number] [place] [address] 16957- 0499 Jul, [facility] [id number] [place] [address] 42260- 8339 Jun, Anxiety disorder, unspecified F41.9 and Chronic pain syndrome G89.4 [facility] [id number] [place] [address] 90484- 0280 Jun, [facility] [id number] [place] [address] 83372- 7156 Jun, [facility] [id number] [place] [address] 15972- 3821 Jun, [facility] [id number] [place] [address] 61820- 0595 Jun, [facility] [id number] [place] [address] 20271- 4011 Jun, Lumbar neuritis M54.16 [facility] [id number] [place] [address] 40563- 4220 May, [facility] [id number] [place] [address] 50706- 3290 May, [facility] [id number] [place] [address] 06545- 0741 May, Encounter for therapeutic drug level monitoring Z51.81 ; Encounter for immunization Z23 and Chronic pain syndrome G89.4 [facility] [id number] [place] [address] 52928- 4985 May, Lumbar neuritis M54.16 [facility] [id number] [place] [address] 25167- 5971 May, [facility] [id number] [place] [address] 34796- 8170 Apr, Lumbar neuritis M54.16 [facility] [id number] [place] [address] 81052- 9180 Apr, [facility] [id number] [place] [address] 99364- 2148 Mar, Lumbar neuritis M54.16 [facility] [id number] [place] [address] 66914- 3452 Mar, [facility] [id number] [place] [address] 91436- 4886 Mar, [facility] [id number] [place] [address] 86035- 7444 Feb, Lumbar neuritis M54.16 [facility] [id number] [place] [address] 83618- 4061 Feb, Lumbar neuritis M54.16 [facility] [id number] [place] [address] 08446- 9297 Feb, [facility] [id number] [place] [address] 71681- 8311 Feb, [facility] [id number] [place] [address] 29777- 7242 Jan, [facility] [id number] [place] [address] 27120- 6205 Jan, Peroneal tendonitis of left lower extremity M76.72 [facility] [id number] [place] [address] 37388- 6210 20 Jan, 2017 Lumbar neuritis M54.16 [facility] [id number] [place] [address] 89296- 6304 Jan, [facility] [id number] [place] [address] 56508- 9007 Dec, Lumbar neuritis M54.16 [facility] [address] 94006- 5037 Dec, [facility] [id number] [place] [address] 95179- 6121 Dec, Pain in right knee M25.561 ; Lumbar neuritis M54.16 and Cervical neuritis M54.12 [facility] [id number] [place] [address] 31789- 0485 Dec, [facility] [id number] [place] [address] 72397- 2754 Dec, [facility] [id number] [place] [address] 64688- 0123 Nov, Lumbar neuritis M54.16 [facility] [id number] [place] [address] 89710- 2094 Nov, Bilateral primary osteoarthritis of knee M17.0 [facility] [id number] [place] [address] 49878- 8151 Nov, [facility] [id number] [place] [address] 51320- 1841 Nov, Bronchitis J40 and Plantar fasciitis M72.2 [facility] [id number] [place] [address] 03416- 1559 Nov, [facility] [id number] [place] [address] 92263- 8690 Oct, Lumbar neuritis M54.16 [facility] [id number] [place] [address] 59988- 6247 30 Oct, 2016 Lumbar neuritis M54.16 [facility] [id number] [place] [address] 41837- 7890 28 Oct, 2016 Lumbar neuritis M54.16 [facility] [id number] [place] [address] 42414- 7876 26 Oct, 2016 Plantar fasciitis M72.2 and Pain in right knee M25.561 [facility] [id number] [place] [address] 38289- 7805 16 Oct, 2016 Lumbar neuritis M54.16 ; Cervical neuritis M54.12 ; Other specified abdominal hernia without obstruction or gangrene K45.8 ; Heel spur, left M77.32 ; Plantar fasciitis M72.2 and Pain in right knee M25.561 [facility] [id number] [place] [address] 06061- 9499 13 Oct, 2016 [facility] [id number] [place] [address] 38172- 3347 14 Aug, 2014 [facility] [id number] [place] [address] 63891- 8632 Aug, [facility] [id number] [place] [address] 74956- 0649 Apr, [facility] [id number] [place] [address] 56612- 0828 Apr, [facility] [id number] [place] [address] 32896- 9629 Mar, [facility] [id number] [place] [address] 41366- 1948 Mar, [facility] [id number] [place] [address] 96466- 8568 Feb, [facility] [id number] [place] [address] 81017- 4614 Feb, [facility] [id number] [place] [address] 28178- 2950 Feb, 2013 [facility] [place] [facility] [address] [id number] [place] [address]- 9620 Feb, 2013 [facility] [place] [facility] [address] [id number] [place] [address]- 5963 Feb, 2013 [facility] [place] [facility] [address] [id number] [place] [address]- 6729 Feb, 2013 [facility] [place] [facility] [address] [id number] [place] [address]- 1841 Feb, 2013 [facility] [place] [facility] [address] [id number] [place] [address]- 9987 Feb, 2013 [facility] [place] [facility] [address] [id number] [place] [address]- 7134 30 Jan, 2013 [facility] [place] [facility] [address] [id number] [place] [address]- 6138 30 Sep, 2013 [facility] [place] [facility] [address] [id number] [place] [address]- 2541 30 Sep, 2013 [facility] [place] [facility] [address] [id number] [place] [address] 2540 30 Sep, 2013 [facility] [place] [facility] [address] [id number] [place] [address]- 2548 30 Sep, 2013 [facility] [place] [facility] [address] [id number] [address] 2541 30 Sep, 2013 [facility] [place] [facility] [address] [id number] [address]- 2546 26 Sep, 2013 [facility] [place] [facility] [address] [id number] [place] [address] 2546 26 Sep, 2013 [facility] [place] [facility] [address] [id number] [place] [address]- 2548 22 Sep, 2013 [facility] [place] [facility] [address] [id number] [place] [address]- 2543 22 Sep, 2013 [facility] [place] [facility] [address] [id number] [place] [address]- 1435 16 Sep, 2013 [facility] [place] [facility] [address] [id number] [place] [address]- 4581 16 Sep, 2013 [facility] [place] [facility] [address] [id number] [place] [address]- 2546 16 Jan, 2013 [facility] [place] [facility] [address] [id number] [place] [address]- 9446 16 Jan, 2013 [facility] [place] [facility] [address] [id number] [place] [address]- 5142 12 Jan, 2013 [facility] [place] [facility] [address] [id number] [place] [address]- 3801 12 Jan, 2013 [facility] [place] [facility] [address] [id number] [place] [address]- 3122 12 Jan, 2013 [facility] [place] [facility] [address] [id number] [place] [address]- 9560 12 Jan, 2013 [facility] [place] [facility] [address] [id number] [place] [address]- 5445 09 Jan, 2013 [facility] [place] [facility] [address] [id number] [place] [address]- 7443 09 Jan, 2013 [facility] [place] [facility] [address] [id number] [place] [address]- 2546 09 Jan, 2013 [facility] [place] [facility] [address] [id number] [place] [address]- 254 Jan, 2013 [facility] [place] [facility] [address] [id number] [place] [address]- 2541 Jan, 2013 [facility] [place] [facility] [address] [id number] [place] [address]- 2542 Jan, 2013 [facility] [place] [facility] [address] [id number] [place] [address]- 9034 Dec, [facility] [place] [facility] [address] [id number] [place] [address]- 8466 Dec, [facility] [place] [facility] [address] [id number] [place] [address]- 7818 Dec, [facility] [place] [facility] [address] [id number] [place] [address]- 8326 Dec, [facility] [place] [facility] [address] [id number] [place] [address]- 4830 Dec, [facility] [place] [facility] [address] [id number] [place] [address]- 6447 Dec, [facility] [place] [facility] [address] [id number] [place] [address]- 4943 Dec, [facility] [place] [facility] [address] [id number] [place] [address]- 2082 Dec, [facility] [place] [facility] [address] [id number] [place] [address]- 7584 Dec, [facility] [place] [facility] [address] [id number] [place] [address]- 3402 Dec, [facility] [place] [facility] [address] [id number] [place] [address]- 7538 Dec, [facility] [place] [facility] [address] [id number] [place] [address]- 9278 Dec, [facility] [place] [facility] [address] [id number] [place] [address]- 5010 Dec, [facility] [place] [facility] [address] [id number] [place] [address]- 1845 Dec, [facility] [place] [facility] [address] [id number] [place] [address]- 3081 Dec, [facility] [place] [facility] [address] [id number] [place] [address]- 3196 Dec, [facility] [place] [facility] [address] [id number] [place] [address]- 4318 Dec, [facility] [place] [facility] [address] [id number] [place] [address]- 2689 Dec, [facility] [place] [facility] [address] [id number] [place] [address]- 3460 Dec, [facility] [place] [facility] [address] [id number] [place] [address]- 9746 Nov, [facility] [place] [facility] [address] [id number] [place] [address]- 9874 Nov, [facility] [place] [facility] [address] [id number] [place] [address]- 5763 Nov, [facility] [place] [facility] [address] [id number] [place] [address]- 1027 Nov, [facility] [place] [facility] [address] [id number] [place] [address]- 2480 Nov, [facility] [place] [facility] [address] [id number] [place] [address]- 0898 Nov, [facility] [place] [facility] [address] [id number] [place] [address]- 4242 Nov, [facility] [place] [facility] [address] [id number] [place] [address]- 3180 Nov, [facility] [place] [facility] [address] [id number] [place] [address]- 0713 Nov, [facility] [place] [facility] [address] [id number] [place] [address]- 6692 Nov, [facility] [place] [facility] [address] [id number] [place] [address]- 8237 Nov, [facility] [place] [facility] [address] [id number] [place] [address]- 5355 Oct, [facility] [place] [facility] [address] [id number] [place] [address]- 7978 Oct, [facility] [place] [facility] [address] [id number] [place] [address]- 9969 Oct, [facility] [place] [facility] [address] [facility] [id number] [place] [address]- 5690 Apr, IMMUNIZATIONS No Known Immunizations SOCIAL HISTORY Never Assessed REASON FOR VISIT PA for MRI C & L Spine (peer to peer) PLAN OF CARE VITAL SIGNS MEDICATIONS Unknown [...]
--- OUTSIDE RECORDS SUMMARY | 2018-04-14 06:09 | XMS REPORT ---
Author Author PREETHI YIN Organization [facility] [place] Address [address] [place] [address] Care Team Providers Care Laser Machine Operator Name Role Phone PREETHI YIN Unavailable PROBLEMS Type Condition ICD9-CM Code [id number] Code Onset Dates Condition Status SNOMED Code Problem Anxiety disorder, unspecified F41.9 Active 733852806 Problem Chronic pain syndrome G89.4 Active 539303696 Problem Bilateral primary osteoarthritis of knee M17.0 Active 445358650 ALLERGIES No Information ENCOUNTERS Encounter Location Date Diagnosis [place] [address] [address] Nov, [facility] [place] [address] [address]- [address] Oct, [facility] [place] [address] [address]- [address] Oct, Allergic reaction to drug, subsequent encounter T78.40XD [facility] [place] [address] [place] [id number] [place] [address] 76269- 8666 September, [facility] [place] [address] [place] [id number] [place] [address] 83916- 8758 September, [facility] [place] [address] [address]- [address] September, Low back pain radiating to lower extremity M54.5 [facility] [place] [address] [address]- [address] Aug, [facility] [place] [address] [place] [id number] [place] [address] 37388- 9106 Aug, [facility] [place] [address] [address]- [address] Aug, [facility] [place] [address] [address] Aug, [facility] [place] [address] [place] [address] [id number] [place] [address] 67371- 6787 Aug, Incisional infection, initial encounter T81.4XXA [facility] [place] [address] [place] [address] [id number] [place] [address] 98697- 7881 Aug, [facility] [place] [address] [id number] [place] [address] 61110- 3255 Jul, [facility] [place] [id number] [place] [address] 22200- 9232 Jul, [facility] [place] [address] [place] [id number] [place] [address] 78553- 7676 Jul, Chronic pain syndrome G89.4 [facility] [place] [address] [place] [address] [id number] [place] [address] 16169- 1823 Jul, Pre-op evaluation Z01.818 [facility] [place] [address] [place] [address] [id number] [place] [address] 25244- 8970 Jul, [facility] [place] [id number] [place] [address] 42602- 6145 Jun, Anxiety disorder, unspecified F41.9 and Chronic pain syndrome G89.4 [facility] [place] [id number] [place] [address] 84266- 4567 Jun, [facility] [place] [id number] [place] [address] 89962- 0865 Jun, [facility] [place] [id number] [place] [address] 02541- 0927 Jun, [facility] [place] [address] [place] [address] [id number] [place] [address] 62065- 3762 Jun, [facility] [place] [address] [place] [address] [id number] [place] [address] 68516- 1887 Jun, Lumbar neuritis M54.16 [facility] [place] [id number] [place] [address] 60433- 2575 May, [facility] [place] [address] [place] [address] [id number] [place] [address] 46888- 7036 May, [facility] [place] [address] [place] [address] [id number] [place] [address] 21980- 8129 May, Encounter for therapeutic drug level monitoring Z51.81 ; Encounter for immunization Z23 and Chronic pain syndrome G89.4 [facility] [place] [address] [place] [address] [id number] [place] [address] 45440- 4120 May, Lumbar neuritis M54.16 [facility] [place] [address] [place] [id number] [place] [address] 16800- 9508 May, [facility] [place] [address] [place] [id number] [place] [address] 89268- 1130 Apr, Lumbar neuritis M54.16 [facility] [place] [address] [place] [id number] [place] [address] 36213- 4148 Apr, [facility] [place] [address] [place] [address] [id number] [place] [address] 06987- 8660 Mar, Lumbar neuritis M54.16 [facility] [place] [address] [place] [id number] [place] [address] 40462- 4314 Mar, [facility] [place] [address] [place] [id number] [place] [address] 63334- 4454 Mar, [facility] [place] [id number] [place] [address] 57904- 6518 Feb, Lumbar neuritis M54.16 [facility] [place] [address] [place] [id number] [place] [address] 93617 2546 18 Feb, 2017 Lumbar neuritis M54.16 [facility] [place] [address] [place] [id number] [place] [address] 30316- 6687 16 Feb, 2017 [facility] [place] [address] [place] [id number] [place] [address] 60568- 5314 Feb, [facility] [place] [address] [place] [address] [id number] [place] [address] 70677- 4773 Jan, [facility] [place] [address] [place] [id number] [place] [address] 72781- 3738 22 Jan, 2017 Peroneal tendonitis of left lower extremity M76.72 [facility] [place] [address] 39757- 7965 20 Jan, 2017 Lumbar neuritis M54.16 [facility] [place] [address] [place] [id number] [place] [address] 03859- 1231 Jan, [facility] [place] [address] [place] [id number] [place] [address] 27237- 7698 Dec, Lumbar neuritis M54.16 [facility] [place] [address] [place] [id number] [place] [address] 65195- 5928 Dec, [facility] [place] [address] 50279- 9476 Dec, Pain in right knee M25.561 ; Lumbar neuritis M54.16 and Cervical neuritis M54.12 [facility] [place] [address] [place] [id number] [place] [address] 65562- 9370 Dec, [facility] [place] [address] [place] [address] [id number] [place] [address] 86423- 7225 Dec, [facility] [place] [address] [place] [id number] [place] [address] 81750- 5141 Nov, Lumbar neuritis M54.16 [facility] [place] [address] [place] [id number] [place] [address] 42468- 2441 Nov, Bilateral primary osteoarthritis of knee M17.0 [facility] [place] [address] [place] [id number] [place] [address] 75490- 8051 Nov, [facility] [place] [address] [place] [id number] [place] [address] 18448- 6642 Nov, Bronchitis J40 and Plantar fasciitis M72.2 [facility] [place] [address] [place] [id number] [place] [address] 42248- 7850 Nov, [facility] [place] [address] [place] [address] [id number] [place] [address] 47116- 1252 30 Oct, 2016 Lumbar neuritis M54.16 [facility] [place] [address] [place] [id number] [place] [address] 51946- 5648 Oct, Lumbar neuritis M54.16 [facility] [place] [address] 26358- 5807 Oct, Lumbar neuritis M54.16 [facility] [place] [address] 84461- 1588 26 Oct, 2016 Plantar fasciitis M72.2 and Pain in right knee M25.561 [facility] [place] [address] [place] [id number] [place] [address] 67621- 2245 16 Oct, 2016 Lumbar neuritis M54.16 ; Cervical neuritis M54.12 ; Other specified abdominal hernia without obstruction or gangrene K45.8 ; Heel spur, left M77.32 ; Plantar fasciitis M72.2 and Pain in right knee M25.561 [facility] [place] [address] [place] [id number] [place] [address] 70738- 3475 13 Oct, 2016 [facility] [place] [address] [place] [id number] [place] [address] 26986- 6762 14 Aug, 2014 [facility] [place] [address] [place] [id number] [place] [address] 67899- 3293 Aug, [facility] [place] [address] [place] [id number] [place] [address] 60732- 4199 Apr, [facility] [place] [address] [place] [id number] [place] [address] 64341- 7309 Apr, [facility] [place] [address] [place] [id number] [place] [address] 14838- 3612 Mar, [facility] [place] [address] [place] [address]- 5341 13 Mar, 2013 [facility] [place] [facility] [address] [id number] [place] [address]- 5564 10 Feb, 2013 [facility] [place] [facility] [address] [id number] [place] [address]- 3674 10 Feb, 2013 [facility] [place] [facility] [address] [id number] [place] [address]- 2089 09 Feb, 2013 [facility] [place] [facility] [address] [id number] [place] [address]- 4852 Feb, 2013 [facility] [place] [facility] [address] [id number] [place] [address]- 7015 Feb, 2013 [facility] [place] [facility] [address] [id number] [place] [address]- 3233 Feb, 2013 [facility] [place] [facility] [address] [id number] [place] [address]- 7222 Feb, 2013 [facility] [place] [facility] [address] [id number] [place] [address]- 7839 07 Feb, 2013 [facility] [place] [facility] [address] [id number] [place] [address]- 5385 30 Sep, 2013 [facility] [place] [facility] [address] [facility] [id number] [place] [address]- 2544 30 Sep, 2013 [facility] [place] [facility] [address] [id number] [place] [address] 2546 30 Sep, 2013 [facility] [place] [facility] [address] [id number] [place] [address]- 2546 30 Sep, 2013 [facility] [place] [facility] [address] [id number] [place] [address] 2546 30 Sep, 2013 [facility] [place] [facility] [address] [facility] [id number] [place] [address]- 2546 30 Sep, 2013 [facility] [place] [facility] [address] [id number] [place] [address]- 254 26 Sep, 2013 [facility] [place] [facility] [address] [id number] [place] [address]- 4785 26 Sep, 2013 [facility] [place] [facility] [address] [id number] [place] [address]- 0803 22 Jan, 2013 [facility] [place] [facility] [address] [id number] [place] [address]- 8448 22 Jan, 2013 [facility] [place] [facility] [address] [id number] [place] [address]- 6198 16 Sep, 2013 [facility] [place] [facility] [address] [id number] [place] [address]- 7769 16 Sep, 2013 [facility] [place] [facility] [address] [id number] [place] [address]- 4495 16 Jan, 2013 [facility] [place] [facility] [address] [id number] [place] [address]- 1747 16 Jan, 2013 [facility] [place] [facility] [address] [id number] [place] [address]- 2592 12 Sep, 2013 [facility] [place] [facility] [address] [id number] [place] [address]- 5746 12 Sep, 2013 [facility] [place] [facility] [address] [id number] [place] [address]- 5586 12 Sep, 2013 [facility] [place] [facility] [address] [id number] [place] [address]- 6271 12 Sep, 2013 [facility] [place] [facility] [address] [id number] [place] [address]- 2541 09 Sep, 2013 [facility] [place] [facility] [address] [id number] [place] [address]- 2548 09 Sep, 2013 [facility] [place] [facility] [address] [id number] [place] [address]- 2542 09 Sep, 2013 [facility] [place] [facility] [address] [id number] [place] [address]- 5120 09 Sep, 2013 [facility] [place] [facility] [address] [id number] [place] [address]- 2321 Jan, [facility] [place] [facility] [address] [id number] [place] [address]- 6009 Jan, [facility] [place] [facility] [address] [id number] [place] [address]- 5873 Dec, [facility] [place] [facility] [address] [id number] [place] [address]- 2265 Dec, [facility] [place] [facility] [address] [id number] [place] [address]- 2871 Dec, [facility] [place] [facility] [address] [id number] [place] [address]- 5778 Dec, [facility] [place] [facility] [address] [id number] [place] [address]- 9302 Dec, [facility] [place] [facility] [address] [id number] [place] [address]- 4684 Dec, [facility] [place] [facility] [address] [id number] [place] [address]- 2858 Dec, [facility] [place] [facility] [address] [id number] [place] [address]- 0922 Dec, [facility] [place] [facility] [address] [id number] [place] [address]- 8836 Dec, [facility] [place] [facility] [address] [id number] [place] [address]- 7610 Dec, [facility] [place] [facility] [address] [id number] [place] [address]- 9786 Dec, [facility] [place] [facility] [address] [id number] [place] [address]- 4466 Dec, [facility] [place] [facility] [address] [id number] [place] [address]- 3962 Dec, [facility] [place] [facility] [address] [id number] [place] [address]- 0170 Dec, [facility] [place] [facility] [address] [id number] [place] [address]- 7355 Dec, [facility] [place] [facility] [address] [id number] [place] [address]- 5892 Dec, [facility] [place] [facility] [address] [id number] [place] [address]- 4410 Dec, [facility] [place] [facility] [address] [id number] [place] [address]- 6378 Dec, [facility] [place] [facility] [address] [id number] [place] [address]- 3568 Dec, [facility] [place] [facility] [address] [id number] [place] [address]- 6005 Nov, [facility] [place] [facility] [address] [id number] [place] [address]- 4615 Nov, [facility] [place] [facility] [address] [id number] [place] [address]- 2675 Nov, [facility] [place] [facility] [address] [id number] [place] [address]- 5857 Nov, [facility] [place] [facility] [address] [id number] [place] [address]- 5943 Nov, [facility] [place] [facility] [address] [id number] [place] [address]- 4850 Nov, [facility] [place] [facility] [address] [id number] [place] [address]- 4489 Nov, [facility] [place] [facility] [address] [id number] [place] [address]- 6799 Nov, [facility] [place] [facility] [address] [id number] [place] [address]- 1851 Nov, [facility] [place] [facility] [address] [id number] [place] [address]- 3740 Nov, [facility] [place] [facility] [address] [id number] [place] [address]- 3506 Nov, [facility] [place] [address] [facility] [id number] [address]- 1664 Oct, [facility] [place] [address] [facility] [id number] [address]- 2926 Oct, [facility] [place] [address] [facility] [id number] [address]- 7846 Oct, [facility] [place] [address] [facility] [id number], [place] [address]- 2986 Apr, IMMUNIZATIONS No Known Immunizations SOCIAL HISTORY Never Assessed REASON FOR VISIT Controlled Med Refill 05/20/17/ PLAN OF CARE VITAL SIGNS MEDICATIONS Medication [...]
--- OUTSIDE RECORDS SUMMARY | 2018-04-14 06:09 | XMS REPORT ---
Author Author BONNY BRANNON Organization [facility] Address [address] [place] [address] Care Team Providers Care [employer] Specialist Name Role Phone BONNY BRANNON Unavailable PROBLEMS Type Condition ICD9-CM Code [id number] Code Onset Dates Condition Status SNOMED Code Problem Anxiety disorder, unspecified F41.9 Active 858475703 Problem Chronic pain syndrome G89.4 Active 273475389 Problem Bilateral primary osteoarthritis of knee M17.0 Active [id number] ALLERGIES No Information ENCOUNTERS Encounter Location Date Diagnosis [place] [id number] [place] [address] 18850- 6600 Nov, [facility] [id number] [place] [address] 68660- 1862 Oct, [facility] [id number] [place] [address] 02135- 6378 Oct, [facility] [id number] [place] [address] 51262- 0855 Oct, [facility] [id number] [place] [address] 58899- 8382 Oct, Allergic reaction to drug, subsequent encounter T78.40XD [facility] [id number] [place] [address] 24392- 2346 September, [facility] [id number] [place] [address] 15547- 0169 September, [facility] [id number] [place] [address] 33396- 1123 September, Low back pain radiating to lower extremity M54.5 [facility] [id number] [place] [address] 83051- 9425 Aug, [facility] [address] [address] 7158 Aug, [facility] [id number] [place] [address] 47333- 3666 Aug, [facility] [address] [address] 1389 Aug, [facility] [id number] [place] [address] 70749- 5465 Aug, Incisional infection, initial encounter T81.4XXA [facility] [id number] [place] [address] 00995- 9367 Aug, [facility] [id number] [place] [address] 89649- 6707 Jul, [facility] [id number] [place] [address] 93169- 2400 Jul, [facility] [id number] [place] [address] 58166- 7926 Jul, Chronic pain syndrome G89.4 [facility] [id number] [place] [address] 20639- 0585 Jul, Pre-op evaluation Z01.818 [facility] [address], [place] [address] 3754 Jul, [facility] [id number] [place] [address] 79069- 0874 Jun, Anxiety disorder, unspecified F41.9 and Chronic pain syndrome G89.4 [facility] [id number] [place] [address] 82100- 5964 Jun, [facility] [address], [place] [address]- 2766 Jun, [facility] [id number] [place] [address] 13387- 7103 Jun, [facility] [address], [place] [address]- 1396 Jun, [facility] [id number] [place] [address] 13259- 4155 Jun, Lumbar neuritis M54.16 [facility] [id number] [place] [address] 52584- 7450 May, [facility] [id number] [place] [address] 01183- 3398 May, [facility] [id number] [place] [address] 31852- 1333 May, Encounter for therapeutic drug level monitoring Z51.81 ; Encounter for immunization Z23 and Chronic pain syndrome G89.4 [facility] [id number] [place] [address] 03069- 9966 May, Lumbar neuritis M54.16 [facility] [id number] [place] [address] 64571- 9003 May, [facility] [id number] [place] [address] 41202- 6785 Apr, Lumbar neuritis M54.16 [facility] [id number] [place] [address] 59293- 0808 Apr, [facility] [id number] [place] [address] 61565- 0383 Mar, Lumbar neuritis M54.16 [facility] [id number] [place] [address] 46299- 3551 Mar, [facility] [id number] [place] [address] 58959- 4767 Mar, [facility] [address], [place] [address]- 2859 Feb, Lumbar neuritis M54.16 [facility] [id number] [place] [address] 90302- 0810 Feb, Lumbar neuritis M54.16 [facility] [id number] [place] [address] 75263- 3121 16 Feb, 2017 [facility] [id number] [place] [address] 63216- 7988 09 Feb, 2017 [facility] [id number] [place] [address] 70799- 9355 25 Jan, 2017 [facility] [id number] [place] [address] 76457- 0004 22 Jan, 2017 Peroneal tendonitis of left lower extremity M76.72 [facility] [id number] [place] [address] 23722- 0263 20 Jan, 2017 Lumbar neuritis M54.16 [facility] [id number] [place] [address] 68473- 8592 Jan, [facility] [id number] [place] [address] 34337- 2763 Dec, Lumbar neuritis M54.16 [facility] [id number] [place] [address] 36323- 9154 Dec, [facility] [id number] [place] [address] 30275- 2287 Dec, Pain in right knee M25.561 ; Lumbar neuritis M54.16 and Cervical neuritis M54.12 [facility] [id number] [place] [address] 74522- 9861 Dec, [facility] [id number] [place] [address] 66275- 0150 Dec, [facility] [id number] [place] [address] 96089- 6511 Nov, Lumbar neuritis M54.16 [facility] [id number] [place] [address] 79674- 0562 Nov, Bilateral primary osteoarthritis of knee M17.0 [facility] [id number] [place] [address] 28060- 3619 14 Nov, 2016 [facility] [id number] [place] [address] 55406- 6702 Nov, Bronchitis J40 and Plantar fasciitis M72.2 [facility] [id number] [place] [address] 01917- 9149 Nov, [facility] [id number] [place] [address] 75142- 8182 Oct, Lumbar neuritis M54.16 [facility] [id number] [place] [address] 06124- 5833 Oct, Lumbar neuritis M54.16 [facility] [id number] [place] [address] 26178- 5231 Oct, Lumbar neuritis M54.16 [facility] [id number] [place] [address] 78998- 0140 Oct, Plantar fasciitis M72.2 and Pain in right knee M25.561 [facility] [id number] [place] [address] 94118- 9923 16 Oct, 2016 Lumbar neuritis M54.16 ; Cervical neuritis M54.12 ; Other specified abdominal hernia without obstruction or gangrene K45.8 ; Heel spur, left M77.32 ; Plantar fasciitis M72.2 and Pain in right knee M25.561 [facility] [id number] [place] [address] 33169- 4628 13 Oct, 2016 [facility] [id number] [place] [address] 05495- 5947 Aug, [facility] [id number] [place] [address] 34206- 4143 Aug, [facility] [id number] [place] [address] 21437- 2862 Apr, [facility] [id number] [place] [address]- 9924 Apr, [facility] [place] [facility] [address] [id number] [place] [address]- 8140 Mar, [facility] [place] [facility] [address] [id number] [place] [address]- 6944 Mar, [facility] [place] [facility] [address] [id number] [place] [address]- 8599 Feb, [facility] [place] [facility] [address] [id number] [place] [address]- 8141 Feb, [facility] [place] [facility] [address] [id number] [place] [address]- 7138 Feb, [facility] [place] [facility] [address] [id number] [place] [address]- 9631 Feb, [facility] [place] [facility] [address] [id number] [place] [address]- 0769 Feb, [facility] [place] [facility] [address] [id number] [place] [address]- 5086 Feb, [facility] [place] [facility] [address] [facility] [id number] [place] [address]- 7631 Feb, [facility] [place] [facility] [address] [facility] [id number] [place] [address]- 5866 Feb, [facility] [place] [facility] [address] [id number] [place] [address]- 9526 30 Jan, 2013 [facility] [place] [facility] [address] [id number] [place] [address]- 4630 30 Sep, 2013 [facility] [place] [facility] [address] [id number] [place] [address]- 7025 30 Jan, 2013 [facility] [place] [facility] [address] [facility] [id number] [place] [address]- 8561 30 Jan, 2013 [facility] [place] [facility] [address] [id number] [place] [address]- 5633 30 Jan, 2013 [facility] [place] [facility] [address] [id number] [place] [address]- 9143 30 Sep, 2013 [facility] [place] [facility] [address] [id number] [place] [address]- 0226 26 Sep, 2013 [facility] [place] [facility] [address] [id number] [place] [address]- 7256 26 Sep, 2013 [facility] [place] [facility] [address] [id number] [place] [address] 2548 22 Sep, 2013 [facility] [place] [facility] [address] [id number] [place] [address]- 8663 22 Sep, 2013 [facility] [place] [facility] [address] [id number] [place] [address]- 3573 16 Sep, 2013 [facility] [place] [facility] [address] [id number] [place] [address]- 2960 16 Sep, 2013 [facility] [place] [facility] [address] [id number] [place] [address]- 1318 16 Sep, 2013 [facility] [place] [facility] [address] [id number] [place] [address]- 7840 16 Sep, 2013 [facility] [place] [facility] [address] [id number] [place] [address]- 8111 12 Sep, 2013 [facility] [place] [facility] [address] [id number] [place] [address] 2540 12 Sep, 2013 [facility] [place] [facility] [address] [id number], [place] [address]- 2541 12 Sep, 2013 [facility] [place] [facility] [address] [id number] [place] [address] 2540 12 Sep, 2013 [facility] [place] [facility] [address] [id number] [place] [address]- 2544 09 Sep, 2013 [facility] [place] [facility] [address] [id number], [place] [address]- 5301 09 Sep, 2013 [facility] [place] [facility] [address] [id number], [place] [address]- 9288 Jan, [facility] [place] [facility] [address] [id number] [place] [address]- 1352 Jan, [facility] [place] [facility] [address] [id number] [place] [address]- 9894 Jan, [facility] [place] [facility] [address] [id number] [place] [address]- 2291 Jan, [facility] [place] [facility] [address] [id number] [place] [address]- 0015 Dec, [facility] [place] [facility] [address] [id number] [place] [address]- 3748 Dec, [facility] [place] [facility] [address] [id number] [place] [address]- 0353 Dec, [facility] [place] [facility] [address] [id number] [place] [address]- 2722 Dec, [facility] [place] [facility] [address] [id number] [place] [address]- 4639 Dec, [facility] [place] [facility] [address] [id number] [place] [address]- 9473 Dec, [facility] [place] [facility] [address] [id number] [place] [address]- 2728 Dec, [facility] [place] [facility] [address] [id number] [place] [address]- 9293 Dec, [facility] [place] [facility] [address] [id number] [place] [address]- 0649 Dec, [facility] [place] [facility] [address] [id number] [place] [address]- 2271 Dec, [facility] [place] [facility] [address] [id number] [place] [address]- 0337 Dec, [facility] [place] [facility] [address] [id number] [place] [address]- 6548 Dec, [facility] [place] [facility] [address] [id number] [place] [address]- 4042 Dec, [facility] [place] [facility] [address] [id number] [place] [address]- 1952 Dec, [facility] [place] [facility] [address] [id number] [place] [address]- 2196 Dec, [facility] [place] [facility] [address] [id number] [place] [address]- 7806 Dec, [facility] [place] [facility] [address] [id number] [place] [address]- 0041 Dec, [facility] [place] [facility] [address] [id number] [place] [address]- 1653 Dec, [facility] [place] [facility] [address] [id number] [place] [address]- 5973 Dec, [facility] [place] [facility] [address] [id number] [place] [address]- 2166 Nov, [facility] [place] [facility] [address] [id number] [place] [address]- 2712 Nov, [facility] [place] [facility] [address] [id number] [place] [address]- 7170 Nov, [facility] [place] [facility] [address] [id number] [place] [address]- 7844 Nov, [facility] [place] [facility] [address] [id number] [place] [address]- 5180 Nov, [facility] [place] [facility] [address] [id number] [place] [address]- 3173 Nov, [facility] [place] [facility] [address] [id number] [place] [address]- 7449 Nov, [facility] [place] [facility] [address] [id number] [place] [address]- 2206 Nov, [facility] [place] [facility] [address] [id number] [place] [address]- 0590 Nov, [facility] [address] [facility] [id number], [place] [address]- 3985 Nov, [facility] [id number], [place] [address]- 8515 Nov, [facility] [address] [facility] [id number], [place] [address]- 2264 Oct, [facility] [id number], [place] [address]- 7932 Oct, [facility] [address] [facility] [id number], [place] [address]- 3985 Oct, [facility] [id number], [place] [address]- 9698 Apr, IMMUNIZATIONS No Known Immunizations SOCIAL HISTORY Never Assessed REASON FOR VISIT Medication question PLAN OF CARE VITAL SIGNS MEDICATIONS Unknown [...]
--- OUTSIDE RECORDS SUMMARY | 2018-04-14 06:09 | XMS REPORT ---
Author Author PREETHI YIN Organization [facility] Address [address] [place] [address] Care Team Providers Care Energy Trading Analyst Name Role Phone PREETHI YIN Unavailable PROBLEMS Type Condition ICD9-CM Code [id number] Code Onset Dates Condition Status SNOMED Code Problem Anxiety disorder, unspecified F41.9 Active 760609872 Problem Chronic pain syndrome G89.4 Active 686152131 Problem Bilateral primary osteoarthritis of knee M17.0 Active [id number] ALLERGIES No Information ENCOUNTERS Encounter Location Date Diagnosis [place] [address] [address]- [address] Nov, [facility] [address] [place] [place] [id number] [place] [address] 87059- 8118 Oct, [facility] [id number] [place] [address] 48229- 4173 Oct, [facility] [id number] [place] [address] 71026- 1894 Oct, [facility] [address] [id number] [place] [address] 01698- 8729 Oct, Allergic reaction to drug, subsequent encounter T78.40XD [facility] [id number] [place] [address] 24660- 4392 September, [facility] [id number] [place] [address] 36851- 0458 September, [facility] [id number] [place] [address] 97618- 4750 September, Low back pain radiating to lower extremity M54.5 [facility] [address] [address]65- 8199 Aug, [facility] [address] [address] 28[address] Aug, [facility] [address] [address]- 4095 Aug, [facility] [address] [address]- 9408 Aug, [facility] [id number] [place] [address] 44611- 7211 Aug, Incisional infection, initial encounter T81.4XXA [facility] [id number] [place] [address] 08841- 7816 Aug, [facility] [id number] [place] [address] 36657- 5885 Jul, [facility] [id number] [place] [address] 65057- 3072 Jul, [facility] [address] [address] 4449 Jul, Chronic pain syndrome G89.4 [facility] [id number] [place] [address] 69907- 0565 Jul, Pre-op evaluation Z01.818 [facility] [address] [address]- 8467 Jul, [facility] [address] [address]- 2771 Jun, Anxiety disorder, unspecified F41.9 and Chronic pain syndrome G89.4 [facility] [address] [address]- 9158 Jun, [facility] [address] [address]- 1846 Jun, [facility] [address] [address]- 7177 Jun, [facility] [id number] [place] [address] 74200- 6455 Jun, [facility] [address] [id number] [place] [address] 08920- 5144 Jun, Lumbar neuritis M54.16 [facility] [id number] [place] [address] 60251- 8336 May, [facility] [id number] [place] [address] 22538- 1275 May, [facility] [id number] [place] [address] 54048- 6454 May, Encounter for therapeutic drug level monitoring Z51.81 ; Encounter for immunization Z23 and Chronic pain syndrome G89.4 [facility] [id number] [place] [address] 08214- 5967 May, Lumbar neuritis M54.16 [facility] [address] [id number] [place] [address] 19916- 6434 May, [facility] [address] [id number] [place] [address] 74817- 5330 Apr, Lumbar neuritis M54.16 [facility] [address] [id number] [place] [address] 09133- 5808 Apr, [facility] [address] [id number] [place] [address] 84648- 3524 Mar, Lumbar neuritis M54.16 [facility] [address] [id number] [place] [address] 95929- 7367 Mar, [facility] [address] [id number] [place] [address] 85063- 7130 Mar, [facility] [id number] [place] [address] 92571- 5864 Feb, Lumbar neuritis M54.16 [facility] [id number] [place] [address] 34895- 5092 Feb, Lumbar neuritis M54.16 [facility] [address] [id number] [place] [address] 20312- 1033 16 Feb, 2017 [facility] [address] [id number] [place] [address] 76151- 6927 09 Feb, 2017 [facility] [address] [id number] [place] [address] 92270- 0715 25 Jan, 2017 [facility] [id number] [place] [address] 08424- 2262 22 Jan, 2017 Peroneal tendonitis of left lower extremity M76.72 [facility] [address] 18377- 7523 20 Jan, 2017 Lumbar neuritis M54.16 [facility] [address] [id number] [place] [address] 84545- 0630 Jan, [facility] [id number] [place] [address] 66183- 5622 Dec, Lumbar neuritis M54.16 [facility] [id number] [place] [address] 38057- 6436 Dec, [facility] [address] [id number] [place] [address] 50700- 8739 Dec, Pain in right knee M25.561 ; Lumbar neuritis M54.16 and Cervical neuritis M54.12 [facility] [address] [id number] [place] [address] 26920- 0269 Dec, [facility] [id number] [place] [address] 83675- 3682 Dec, [facility] [id number] [place] [address] 97421- 3729 Nov, Lumbar neuritis M54.16 [facility] [id number] [place] [address] 92031- 9630 Nov, Bilateral primary osteoarthritis of knee M17.0 [facility] [id number] [place] [address] 92305- 1355 14 Nov, 2016 [facility] [id number] [place] [address] 07553- 5559 Nov, Bronchitis J40 and Plantar fasciitis M72.2 [facility] [address] [id number] [place] [address] 45758- 6538 Nov, [facility] [address] [id number] [place] [address] 81183- 9322 Oct, Lumbar neuritis M54.16 [facility] [address] [place] [id number] [place] [address] 84902- 8025 Oct, Lumbar neuritis M54.16 [facility] [address] [id number] [place] [address] 22661- 8541 Oct, Lumbar neuritis M54.16 [facility] [address] [id number] [place] [address] 22031- 4130 Oct, Plantar fasciitis M72.2 and Pain in right knee M25.561 [facility] [address] [place] [id number] [place] [address] 58474- 3669 16 Oct, 2016 Lumbar neuritis M54.16 ; Cervical neuritis M54.12 ; Other specified abdominal hernia without obstruction or gangrene K45.8 ; Heel spur, left M77.32 ; Plantar fasciitis M72.2 and Pain in right knee M25.561 [facility] [address] [place] [id number] [place] [address] 07611- 7522 13 Oct, 2016 [facility] [id number] [place] [address] 15117- 2711 Aug, [facility] [address] [place] [id number] [place] [address] 66556- 5867 Aug, [facility] [id number] [place] [address] 03007- 2757 Apr, [facility] [address] [place] [address]- 5895 Apr, [facility] [place] [facility] [address] [id number] [place] [address]- 6194 Mar, [facility] [place] [facility] [address] [id number] [place] [address]- 3449 Mar, [facility] [place] [facility] [address] [id number] [place] [address]- 7059 10 Feb, 2014 [facility] [place] [facility] [address] [id number] [place] [address]- 4040 Feb, [facility] [place] [facility] [address] [id number] [place] [address]- 3050 Feb, [facility] [place] [facility] [address] [id number] [place] [address]- 3292 Feb, [facility] [place] [facility] [address] [facility] [id number] [place] [address]- 0416 Feb, [facility] [place] [facility] [address] [id number] [place] [address]- 4180 Feb, [facility] [place] [facility] [address] [facility] [id number] [place] [address]- 7951 Feb, [facility] [place] [facility] [address] [facility] [id number] [place] [address]- 2744 07 Feb, 2014 [facility] [place] [facility] [address] [id number] [place] [address]- 9632 30 Sep, 2013 [facility] [place] [facility] [address] [id number] [address]- 254 30 Sep, 2013 [facility] [place] [facility] [address] [id number] [place] [address]- 4926 30 Sep, 2013 [facility] [place] [facility] [address] [facility] [id number] [place] [address]- 2546 30 Sep, 2013 [facility] [place] [facility] [address] [id number] [place] [address]- 0841 30 Sep, 2013 [facility] [place] [facility] [address] [id number] [place] [address]- 1555 30 Sep, 2013 [facility] [place] [facility] [address] [id number] [place] [address]- 1367 26 Sep, 2013 [facility] [place] [facility] [address] [id number] [place] [address]- 8033 26 Sep, 2013 [facility] [place] [facility] [address] [id number] [place] [address]- 9976 22 Sep, 2013 [facility] [place] [facility] [address] [id number] [place] [address]- 3277 22 Sep, 2013 [facility] [place] [facility] [address] [id number] [place] [address]- 8345 16 Sep, 2013 [facility] [place] [facility] [address] [id number] [place] [address]- 4012 16 Sep, 2013 [facility] [place] [facility] [address] [id number] [place] [address]- 6487 16 Sep, 2013 [facility] [place] [facility] [address] [id number] [place] [address]- 6022 16 Sep, 2013 [facility] [place] [facility] [address] [id number] [place] [address]- 8120 12 Sep, 2013 [facility] [place] [facility] [address] [id number] [place] [address]- 9979 12 Sep, 2013 [facility] [place] [facility] [address] [id number] [place] [address]- 2544 12 Sep, 2013 [facility] [place] [facility] [address] [id number] [place] [address]- 2541 12 Sep, 2013 [facility] [place] [facility] [address] [id number] [place] [address]- 2549 09 Sep, 2013 [facility] [place] [facility] [address] [id number] [place] [address]- 3499 09 Sep, 2013 [facility] [place] [facility] [address] [id number] [place] [address]- 3001 Jan, [facility] [place] [facility] [address] [id number] [place] [address]- 9232 Jan, [facility] [place] [facility] [address] [id number] [place] [address]- 5776 Jan, [facility] [place] [facility] [address] [id number] [place] [address]- 9489 Jan, [facility] [place] [facility] [address] [id number] [place] [address]- 7683 Dec, [facility] [place] [facility] [address] [id number] [place] [address]- 2577 Dec, [facility] [place] [facility] [address] [id number] [place] [address]- 1569 Dec, [facility] [place] [facility] [address] [id number] [place] [address]- 2806 Dec, [facility] [place] [facility] [address] [id number] [place] [address]- 7273 Dec, [facility] [place] [facility] [address] [id number] [place] [address]- 2611 Dec, [facility] [place] [facility] [address] [id number] [place] [address]- 0504 Dec, [facility] [place] [facility] [address] [id number] [place] [address]- 8813 Dec, [facility] [place] [facility] [address] [id number] [place] [address]- 8829 Dec, [facility] [place] [facility] [address] [id number] [place] [address]- 9892 Dec, [facility] [place] [facility] [address] [id number] [place] [address]- 3492 Dec, [facility] [place] [facility] [address] [id number] [place] [address]- 6011 Dec, [facility] [place] [facility] [address] [id number] [place] [address]- 5951 Dec, [facility] [place] [facility] [address] [id number] [place] [address]- 3022 Dec, [facility] [place] [facility] [address] [id number] [place] [address]- 8294 Dec, [facility] [place] [facility] [address] [id number] [place] [address]- 5784 Dec, [facility] [place] [facility] [address] [id number] [place] [address]- 0911 Dec, [facility] [place] [facility] [address] [id number] [place] [address]- 8283 Dec, [facility] [place] [facility] [address] [id number] [place] [address]- 5959 Dec, [facility] [place] [facility] [address] [id number] [place] [address]- 3538 Nov, [facility] [place] [facility] [address] [id number] [place] [address]- 9130 Nov, [facility] [place] [facility] [address] [id number] [place] [address]- 6914 Nov, [facility] [place] [facility] [address] [id number] [place] [address]- 7708 Nov, [facility] [place] [facility] [address] [id number] [place] [address]- 4836 Nov, [facility] [place] [facility] [address] [id number] [place] [address]- 3927 Nov, [facility] [place] [facility] [address] [id number] [place] [address]- 6964 Nov, [facility] [place] [facility] [address] [id number] [place] [address]- 8764 Nov, [facility] [place] [facility] [address] [id number] [place] [address]- 6078 Nov, [facility] [address] [facility] [id number] [address]- 7582 Nov, [facility] [id number] [address]- 9731 Nov, [facility] [address] [facility] [id number] [address]- 9295 Oct, [facility] [id number] [address]- 2452 Oct, [facility] [address] [facility] [id number] [place] [address]- 4003 Oct, [facility] [address] [facility] [id number] [place] [address]- 4758 Apr, IMMUNIZATIONS No Known Immunizations SOCIAL HISTORY Never Assessed REASON FOR VISIT PLAN OF CARE VITAL SIGNS MEDICATIONS Unknown [...]
--- OUTSIDE RECORDS SUMMARY | 2018-04-14 06:10 | XMS REPORT ---
Author Author PREETHI YIN Organization [facility] Address [address] [place] [address] Care Team Providers Care System Support Technician Name Role Phone PREETHI YIN Unavailable PROBLEMS Type Condition ICD9-CM Code DPF53-CM Code Onset Dates Condition Status SNOMED Code Problem Chronic airway obstruction, not elsewhere classified 496 Active 96176901 Problem Unspecified essential hypertension 401.9 Active 28529666 Problem Occlusion and stenosis of carotid artery without mention of cerebral infarction 433.10 Active [id number] Problem Anxiety disorder, unspecified F41.9 Active 694709396 Problem Chronic pain syndrome G89.4 Active 232148298 Problem Anxiety state, unspecified 300.00 Active 077668492 Problem Chronic pain syndrome 338.4 Active 052083267 Problem Bilateral primary osteoarthritis of knee M17.0 Active 398108596 Problem Other and unspecified hyperlipidemia 272.4 Active 40573425 Problem Need for prophylactic vaccination and inoculation, Influenza V04.81 Active 811044208 Problem Headache 784.0 Active 50369606 Problem Encounter for long-term (current) use of other medications V58.69 Active 864102024 Problem Syncope and collapse 780.2 Active 960332423 Problem Personal history of tobacco use, presenting hazards to health V15.82 Active 3963661201351 Problem Cervicalgia 723.1 Active 32500289 ALLERGIES No Information ENCOUNTERS Encounter Location Date Diagnosis [facility] [id number], [place] [address] September, [facility] [address], [place] [address] September, [facility] [address], [place] [address] September, Low back pain radiating to lower extremity M54.5 [facility] [id number] [place] [address] 70522- 5214 Aug, [facility] [id number] [place] [address] Aug, [facility] [id number] [place] [address] 91143- 5126 Aug, [facility] [address], [place] [address] Aug, [facility] [id number] [place] [address] 69781- 6749 Aug, Incisional infection, initial encounter T81.4XXA [facility] [id number] [place] [address] 19387- 9577 Aug, [facility] [id number] [place] [address] 51567- 8439 Jul, [facility] [id number] [place] [address] 78587- 1513 Jul, [facility] [id number] [place] [address] 52120- 0767 Jul, Chronic pain syndrome G89.4 [facility] [id number] [place] [address] 05692- 3260 Jul, Pre-op evaluation Z01.818 [facility] [address], [place] [address] Jul, [facility] [id number] [place] [address] 68110- 8957 Jun, Anxiety disorder, unspecified F41.9 and Chronic pain syndrome G89.4 [facility] [id number] [place] [address] 77886- 9587 Jun, [facility] [address], [place] [address] 7883 Jun, [facility] [id number] [place] [address] 40123- 6331 Jun, [facility] [id number] [place] [address] 82639- 1168 Jun, [facility] [id number] [place] [address] 33100- 2653 Jun, Lumbar neuritis M54.16 [facility] [id number] [place] [address] 65948- 1238 May, [facility] [id number] [place] [address] 27318- 3676 May, [facility] [id number] [place] [address] 88766- 5054 May, Encounter for therapeutic drug level monitoring Z51.81 ; Encounter for immunization Z23 and Chronic pain syndrome G89.4 [facility] [id number] [place] [address] 47061- 6061 May, Lumbar neuritis M54.16 [facility] [id number] [place] [address] 59254- 9452 May, [facility] [id number] [place] [address] 57916- 8159 Apr, Lumbar neuritis M54.16 [facility] [id number] [place] [address] 09144- 3029 Apr, [facility] [id number] [place] [address] 77181- 5438 Mar, Lumbar neuritis M54.16 [facility] [id number] [place] [address] 48824- 7199 Mar, [facility] [id number] [place] [address] 12448- 6195 Mar, [facility] [id number] [place] [address] 00561- 2735 Feb, Lumbar neuritis M54.16 [facility] [id number] [place] [address] 83778- 1795 Feb, Lumbar neuritis M54.16 [facility] [id number] [place] [address] 98919- 7259 16 Feb, 2017 [facility] [id number] [place] [address] 87411- 1866 09 Feb, 2017 [facility] [id number] [place] [address] 56691- 3601 25 Jan, 2017 [facility] [id number] [place] [address] 92594- 9597 22 Jan, 2017 Peroneal tendonitis of left lower extremity M76.72 [facility] [id number] [place] [address] 19654- 1095 20 Jan, 2017 Lumbar neuritis M54.16 [facility] [id number] [place] [address] 98181- 7379 Jan, [facility] [id number] [place] [address] 40010- 3448 Dec, Lumbar neuritis M54.16 [facility] [id number] [place] [address] 22871- 7810 Dec, [facility] [id number] [place] [address] 50263- 8463 Dec, Pain in right knee M25.561 ; Lumbar neuritis M54.16 and Cervical neuritis M54.12 [facility] [id number] [place] [address] 11698- 5197 Dec, [facility] [id number] [place] [address] 85806- 8890 Dec, [facility] [id number] [place] [address] 30344- 9268 Nov, Lumbar neuritis M54.16 [facility] [id number] [place] [address] 94536- 4901 Nov, Bilateral primary osteoarthritis of knee M17.0 [facility] [id number] [place] [address] 32074- 4822 14 Nov, 2016 [facility] [id number] [place] [address] 12079- 5017 Nov, Bronchitis J40 and Plantar fasciitis M72.2 [facility] [address] 7[address]60- 5650 Nov, [facility] [address] 77259- 2613 Oct, Lumbar neuritis M54.16 [facility] [address] 83658- 0752 Oct, Lumbar neuritis M54.16 [facility] [id number] [place] [address] 13052- 2358 Oct, Lumbar neuritis M54.16 [facility] [id number] [place] [address] 90633- 2659 26 Oct, 2016 Plantar fasciitis M72.2 and Pain in right knee M25.561 [address] 13279- 0093 16 Oct, 2016 Lumbar neuritis M54.16 ; Cervical neuritis M54.12 ; Other specified abdominal hernia without obstruction or gangrene K45.8 ; Heel spur, left M77.32 ; Plantar fasciitis M72.2 and Pain in right knee M25.561 [facility] [id number] [place] [address] 29038- 1181 13 Oct, 2016 [facility] [id number] [place] [address] 16493- 4743 Aug, [facility] [id number] [place] [address] 61900- 9799 Aug, [facility] [id number] [place] [address] 34780- 0105 Apr, [facility] [place] [facility] [address] [facility] [id number] [place] [address]- 1510 Apr, [facility] [place] [facility] [address] [id number] [place] [address]- 5760 Mar, [facility] [place] [facility] [address] [id number] [place] [address]- 2681 Mar, [facility] [place] [facility] [address] [id number] [place] [address]- 9132 Feb, [facility] [place] [facility] [address] [id number] [place] [address]- 5178 Feb, [facility] [place] [facility] [address] [id number] [place] [address]- 8833 Feb, [facility] [place] [facility] [address] [id number] [place] [address]- 6854 Feb, [facility] [place] [facility] [address] [id number] [place] [address]- 0556 Feb, [facility] [place] [facility] [address] [id number] [place] [address]- 2175 Feb, [facility] [place] [facility] [address] [id number] [place] [address]- 4587 Feb, [facility] [place] [facility] [address] [id number] [place] [address]- 4000 Feb, [facility] [place] [facility] [address] [id number] [place] [address]- 2922 30 Jan, 2013 [facility] [place] [facility] [address] [id number] [place] [address]- 5494 30 Sep, 2013 [facility] [place] [facility] [address] [id number] [place] [address]- 8016 30 Jan, 2013 [facility] [place] [facility] [address] [id number] [place] [address]- 0536 30 Jan, 2013 [facility] [place] [facility] [address] [id number] [place] [address]- 0996 30 Sep, 2013 [facility] [place] [facility] [address] [id number] [place] [address]- 6201 30 Sep, 2013 [facility] [place] [facility] [address] [id number] [place] [address] 2549 26 Sep, 2013 [facility] [place] [facility] [address] [id number] [place] [address]- 5081 26 Sep, 2013 [facility] [place] [facility] [address] [id number] [place] [address]- 0940 22 Sep, 2013 [facility] [place] [facility] [address] [id number] [place] [address]- 4092 22 Sep, 2013 [facility] [place] [facility] [address] [id number] [place] [address]- 0969 16 Sep, 2013 [facility] [place] [facility] [address] [id number] [place] [address]- 6440 16 Sep, 2013 [facility] [place] [facility] [address] [id number] [place] [address]- 2847 16 Sep, 2013 [facility] [place] [facility] [address] [id number] [place] [address]- 4602 16 Sep, 2013 [facility] [place] [facility] [address] [id number] [place] [address]- 6949 12 Sep, 2013 [facility] [place] [facility] [address] [id number] [place] [address]- 7303 12 Sep, 2013 [facility] [place] [facility] [address] [id number], [place] [address]- 3647 12 Sep, 2013 [facility] [place] [facility] [address] [id number] [place] [address] 2543 12 Sep, 2013 [facility] [place] [facility] [address] [id number] [place] [address]- 7185 09 Sep, 2013 [facility] [place] [facility] [address] [id number] [place] [address]- 5271 09 Sep, 2013 [facility] [place] [facility] [address] [id number] [place] [address]- 0528 Jan, [facility] [place] [facility] [address] [id number] [place] [address]- 0115 Jan, [facility] [place] [facility] [address] [id number] [place] [address]- 1973 Jan, [facility] [place] [facility] [address] [id number] [place] [address]- 5534 Jan, [facility] [place] [facility] [address] [id number] [place] [address]- 3911 Dec, [facility] [place] [facility] [address] [id number] [place] [address]- 1459 Dec, [facility] [place] [facility] [address] [id number] [place] [address]- 2345 Dec, [facility] [place] [facility] [address] [id number] [place] [address]- 2941 Dec, [facility] [place] [facility] [address] [id number] [place] [address]- 1070 Dec, [facility] [place] [facility] [address] [id number] [place] [address]- 5979 Dec, [facility] [place] [facility] [address] [id number] [place] [address]- 9170 Dec, [facility] [place] [facility] [address] [id number] [place] [address]- 1211 Dec, [facility] [place] [facility] [address] [id number] [place] [address]- 2549 Dec, [facility] [place] [facility] [address] [id number] [place] [address]- 3316 Dec, [facility] [place] [facility] [address] [id number] [place] [address]- 0674 Dec, [facility] [place] [facility] [address] [id number] [place] [address]- 5739 Dec, [facility] [place] [facility] [address] [id number] [place] [address]- 1897 Dec, [facility] [place] [facility] [address] [id number] [place] [address]- 3492 Dec, [facility] [place] [facility] [address] [id number] [place] [address]- 4160 Dec, [facility] [place] [facility] [address] [id number] [place] [address]- 5747 Dec, [facility] [place] [facility] [address] [id number] [place] [address]- 2320 Dec, [facility] [place] [facility] [address] [id number] [place] [address]- 5432 Dec, [facility] [place] [facility] [address] [id number] [place] [address]- 7305 Dec, [facility] [place] [facility] [address] [id number] [place] [address]- 3088 Nov, [facility] [place] [facility] [address] [id number] [place] [address]- 9485 Nov, [facility] [place] [facility] [address] [id number] [place] [address]- 3268 Nov, [facility] [place] [facility] [address] [id number] [place] [address]- 2080 Nov, [facility] [place] [facility] [address] [id number] [place] [address]- 1239 Nov, [facility] [place] [facility] [address] [id number] [place] [address]- 9164 Nov, [facility] [place] [facility] [address] [id number] [place] [address]- 2945 Nov, [facility] [place] [facility] [address] [id number] [place] [address]- 1149 Nov, [facility] [place] [facility] [address] [id number] [place] [address]- 5697 Nov, [facility] [address] [facility] [id number] [place] [address]- 6397 Nov, [facility] [address] [facility] [id number], [place] [address]- 2276 Nov, [facility] [address] [facility] [id number], [place] [address]- 7223 Oct, [facility] [address] [facility] [id number], [place] [address]- 6784 Oct, [facility] [address] [facility] [id number], [place] [address]- 1340 Oct, [facility] [address] [facility] [id number], [place] [address]- 6750 Apr, IMMUNIZATIONS No Known Immunizations SOCIAL HISTORY [...]
--- OUTSIDE RECORDS SUMMARY | 2018-04-14 06:10 | XMS REPORT ---
Author Author ALEX PIERSON Organization [facility] Address [address] [place] [address] Care Team Providers Care Assistant [employer] Name Role Phone ALEX PIERSON Unavailable PROBLEMS Type Condition ICD9-CM Code ENM16-YO Code Onset Dates Condition Status SNOMED Code Problem Chronic airway obstruction, not elsewhere classified 496 Active 76915328 Problem Unspecified essential hypertension 401.9 Active 88220694 Problem Occlusion and stenosis of carotid artery without mention of cerebral infarction 433.10 Active [id number] Problem Anxiety disorder, unspecified F41.9 Active 547586217 Problem Chronic pain syndrome G89.4 Active 533224576 Problem Anxiety state, unspecified 300.00 Active 808266527 Problem Chronic pain syndrome 338.4 Active 054224441 Problem Bilateral primary osteoarthritis of knee M17.0 Active 528672350 Problem Other and unspecified hyperlipidemia 272.4 Active 77967727 Problem Need for prophylactic vaccination and inoculation, Influenza V04.81 Active 326368273 Problem Headache 784.0 Active 87261594 Problem Encounter for long-term (current) use of other medications V58.69 Active 918644646 Problem Syncope and collapse 780.2 Active 401351270 Problem Personal history of tobacco use, presenting hazards to health V15.82 Active 5108847620158 Problem Cervicalgia 723.1 Active 61456987 ALLERGIES No Information ENCOUNTERS Encounter Location Date Diagnosis [facility] [id number] [address] Aug, [facility] [id number] [place] [address] 88000- 5388 Aug, [facility] [id number] [place] [address] 37683- 9571 Aug, Incisional infection, initial encounter [facility] [place] [id number] [place] [address] 18550- 9687 Aug, [facility] [address], [place] [address] 7118 Jul, [facility] [id number] [place] [address] 71680- 5946 Jul, [facility] [id number] [place] [address] 900155- 0043 Jul, Chronic pain syndrome G89.4 [facility] [id number] [place] [address] 45525- 7715 Jul, Pre-op evaluation Z01.818 [facility] [id number] [place] [address] 48534- 4226 Jul, [facility] [id number] [place] [address] 742594- 8515 Jun, Anxiety disorder, unspecified F41.9 and Chronic pain syndrome G89.4 [facility] [address], [place] [address] 1175 Jun, [facility] [id number] [place] [address] 09705- 8323 Jun, [facility] [address], [place] [address] 5621 Jun, [facility] [id number] [place] [address] 97465- 2714 Jun, [facility] [id number] [place] [address] 92012- 1544 Jun, Lumbar neuritis M54.16 [facility] [id number] [place] [address] 24236- 7737 May, [facility] [address] [address] May, [facility] [id number] [place] [address] 89690- 5071 May, Encounter for therapeutic drug level monitoring Z51.81 ; Encounter for immunization Z23 and Chronic pain syndrome G89.4 [facility] [id number] [place] [address] 61128- 2281 May, Lumbar neuritis M54.16 [facility] [id number] [place] [address] 03867- 7695 May, [facility] [address] 89387- 1125 Apr, Lumbar neuritis M54.16 [facility] [id number] [place] [address] 67722- 2062 Apr, [facility] [id number] [place] [address] 91105- 4906 Mar, Lumbar neuritis M54.16 [facility] [id number] [place] [address] 85416- 6198 Mar, [facility] [id number] [place] [address] 32865- 3907 Mar, [facility] [id number] [place] [address] 87778- 7425 Feb, Lumbar neuritis M54.16 [facility] [id number] [place] [address] 48344- 1625 Feb, Lumbar neuritis M54.16 [facility] [id number] [place] [address] 10378- 7420 Feb, [facility] [id number] [place] [address] 21904- 2111 Feb, [facility] [id number] [place] [address] 99397- 2114 Jan, [facility] [id number] [place] [address] 78552- 9162 Jan, Peroneal tendonitis of left lower extremity M76.72 [facility] [id number] [place] [address] 25722- 5049 20 Jan, 2017 Lumbar neuritis M54.16 [facility] [id number] [place] [address] 16680- 8755 12 Jan, 2017 [facility] [id number] [place] [address] 27857- 6447 2016 Lumbar neuritis M54.16 [facility] [id number] [place] [address] 92680- 1381 Dec, [facility] [id number] [place] [address] 96153- 3597 Dec, Pain in right knee M25.561 ; Lumbar neuritis M54.16 and Cervical neuritis M54.12 [facility] [id number] [place] [address] 55188- 5048 Dec, [facility] [id number] [place] [address] 69673- 6146 Dec, [facility] [id number] [place] [address] 03518- 6863 Nov, Lumbar neuritis M54.16 [facility] [id number] [place] [address] 30663- 7531 Nov, Bilateral primary osteoarthritis of knee M17.0 [facility] [id number] [place] [address] 41728- 5979 Nov, [facility] [id number] [place] [address] 15749- 254 Nov, Bronchitis J40 and Plantar fasciitis M72.2 [facility] [id number] [place] [address] 14233- 1985 Nov, [facility] [id number] [place] [address] 53707- 5007 Oct, Lumbar neuritis M54.16 [facility] [id number] [place] [address] 95382- 5991 30 Oct, 2016 Lumbar neuritis M54.16 [facility] [id number] [place] [address] 19835- 9019 28 Oct, 2016 Lumbar neuritis M54.16 [facility] [id number] [place] [address] 44210- 1162 26 Oct, 2016 Plantar fasciitis M72.2 and Pain in right knee M25.561 [facility] [id number] [place] [address] 27935- 0369 16 Oct, 2016 Lumbar neuritis M54.16 ; Cervical neuritis M54.12 ; Other specified abdominal hernia without obstruction or gangrene K45.8 ; Heel spur, left M77.32 ; Plantar fasciitis M72.2 and Pain in right knee M25.561 [facility] [id number] [place] [address] 06519- 4718 13 Oct, 2016 [facility] [id number] [place] [address] 25980- 8390 14 Aug, 2014 [facility] [id number] [place] [address] 75817- 8281 Aug, [facility] [id number] [place] [address] 59149- 5626 Apr, [facility] [id number] [place] [address] 92075- 0848 Apr, [facility] [id number] [place] [address] 43118- 5816 Mar, [facility] [id number] [place] [address] 57860- 7258 Mar, [facility] [id number] [place] [address] 27213- 2458 Feb, [facility] [id number] [place] [address] 37777- 7098 Feb, [facility] [id number] [place] [address], [place] [address]- 3773 09 Feb, 2013 [facility] [place] [facility] [address] [id number] [place] [address]- 1530 09 Feb, 2013 [facility] [place] [facility] [address] [id number] [place] [address]- 2281 Feb, 2013 [facility] [place] [facility] [address] [id number] [place] [address]- 3952 Feb, 2013 [facility] [place] [facility] [address] [id number] [place] [address]- 3455 Feb, 2013 [facility] [place] [facility] [address] [id number] [place] [address]- 1990 Feb, 2013 [facility] [place] [facility] [address] [id number] [place] [address]- 1995 30 Sep, 2013 [facility] [place] [facility] [address] [id number] [place] [address]- 0976 30 Sep, 2013 [facility] [place] [facility] [address] [id number] [place] [address]- 2543 30 Sep, 2013 [facility] [place] [facility] [address] [id number] [place] [address] 2546 30 Sep, 2013 [facility] [place] [facility] [address] [id number] [place] [address]- 2544 30 Sep, 2013 [facility] [place] [facility] [address] [id number] [place] [address] 2546 30 Sep, 2013 [facility] [place] [facility] [address] [id number] [place] [address] 2546 26 Sep, 2013 [facility] [place] [facility] [address] [id number] [place] [address] 2546 26 Sep, 2013 [facility] [place] [facility] [address] [id number] [place] [address]- 2546 22 Sep, 2013 [facility] [place] [facility] [address] [id number] [place] [address]- 254 22 Sep, 2013 [facility] [place] [facility] [address] [id number] [place] [address]- 2549 16 Sep, 2013 [facility] [place] [facility] [address] [id number] [place] [address] 2546 16 Sep, 2013 [facility] [place] [facility] [address] [id number] [place] [address]- 2540 16 Jan, 2013 [facility] [place] [facility] [address] [id number] [place] [address]- 5778 16 Jan, 2013 [facility] [place] [facility] [address] [id number] [place] [address]- 8282 12 Jan, 2013 [facility] [place] [facility] [address] [id number] [place] [address]- 9659 12 Jan, 2013 [facility] [place] [facility] [address] [id number] [place] [address]- 1884 12 Jan, 2013 [facility] [place] [facility] [address] [id number] [place] [address]- 8592 12 Jan, 2013 [facility] [place] [facility] [address] [id number] [place] [address]- 7716 09 Jan, 2013 [facility] [place] [facility] [address] [id number] [place] [address]- 8035 09 Jan, 2013 [facility] [place] [facility] [address] [id number] [place] [address]- 4204 09 Jan, 2013 [facility] [place] [facility] [address] [id number] [place] [address]- 2543 09 Jan, 2013 [facility] [place] [facility] [address] [id number] [place] [address]- 2680 05 Jan, 2013 [facility] [place] [facility] [address] [id number] [place] [address]- 2549 Jan, 2013 [facility] [place] [facility] [address] [id number] [place] [address]- 6270 Dec, [facility] [place] [facility] [address] [id number] [place] [address]- 5381 Dec, [facility] [place] [facility] [address] [id number] [place] [address]- 4463 Dec, [facility] [place] [facility] [address] [id number] [place] [address]- 9258 Dec, [facility] [place] [facility] [address] [id number] [place] [address]- 6949 Dec, [facility] [place] [facility] [address] [id number] [place] [address]- 4116 Dec, [facility] [place] [facility] [address] [id number] [place] [address]- 3824 Dec, [facility] [place] [facility] [address] [id number] [place] [address]- 3641 Dec, [facility] [place] [facility] [address] [id number] [place] [address]- 7277 Dec, [facility] [place] [facility] [address] [id number] [place] [address]- 9802 Dec, [facility] [place] [facility] [address] [id number] [place] [address]- 3355 Dec, [facility] [place] [facility] [address] [id number] [place] [address]- 1526 Dec, [facility] [place] [facility] [address] [id number] [place] [address]- 9774 Dec, [facility] [place] [facility] [address] [id number] [place] [address]- 5545 Dec, [facility] [place] [facility] [address] [id number] [place] [address]- 0105 Dec, [facility] [place] [facility] [address] [id number] [place] [address]- 0786 Dec, [facility] [place] [facility] [address] [id number] [place] [address]- 8402 Dec, [facility] [place] [facility] [address] [id number] [place] [address]- 2094 Dec, [facility] [place] [facility] [address] [id number] [place] [address]- 1885 Dec, [facility] [place] [facility] [address] [id number] [place] [address]- 3401 Nov, [facility] [place] [facility] [address] [id number] [place] [address]- 5151 Nov, [facility] [place] [facility] [address] [id number] [place] [address]- 5567 Nov, [facility] [place] [facility] [address] [id number] [place] [address]- 8630 Nov, [facility] [place] [facility] [address] [id number] [place] [address]- 8022 Nov, [facility] [place] [facility] [address] [id number] [place] [address]- 0669 Nov, [facility] [place] [facility] [address] [id number] [place] [address]- 1664 Nov, [facility] [place] [facility] [address] [id number] [place] [address]- 5824 Nov, [facility] [place] [facility] [address] [id number] [place] [address]- 0589 Nov, [facility] [place] [facility] [address] [id number] [place] [address]- 6636 Nov, [facility] [place] [facility] [address] [id number] [place] [address]- 2998 Nov, [facility] [place] [facility] [address] [id number] [place] [address]- 5091 Oct, [facility] [place] [facility] [address] [id number] [place] [address]- 6844 Oct, [facility] [place] [facility] [address] [id number] [place] [address]- 7198 Oct, [facility] [address] [facility] [id number] [place] [address]- 9346 Apr, IMMUNIZATIONS No Known Immunizations SOCIAL HISTORY Never Assessed REASON FOR VISIT Controlled Med Refill 01/09/17 PLAN OF CARE VITAL SIGNS MEDICATIONS Medication Instructions Dosage Frequency Start Date End Date Duration Status Hydrocodone-Acetaminophen 10-325 MG Orally every 8 hours, PRN 1 tablet as needed Dec, 28 days Active Morphine Sulfate ER 30 MG Orally at bed time 1 tablet Dec, 28 days Active Morphine Sulfate ER 60 MG Orally Once a day 1 capsule 24h Dec, 28 days Active RESULTS No Results [...]
--- OUTSIDE RECORDS SUMMARY | 2018-04-14 06:10 | XMS REPORT ---
Author Author PREETHI YIN Organization [facility] Address [address] [place] [address] Care Team Providers Care Multi Sensor Operator Name Role Phone PREETHI YIN Unavailable PROBLEMS Type Condition ICD9-CM Code MNX44-LH Code Onset Dates Condition Status SNOMED Code Problem Cervicalgia 723.1 Active 41062895 Problem Occlusion and stenosis of carotid artery without mention of cerebral infarction 433.10 Active 984189130099142 Problem Chronic airway obstruction, not elsewhere classified 496 Active 48145072 Problem Chronic pain syndrome G89.4 Active 451713730 Problem Bilateral primary osteoarthritis of knee M17.0 Active 960163384 Problem Chronic pain syndrome 338.4 Active 784222089 Problem Unspecified essential hypertension 401.9 Active 85216451 Problem Other and unspecified hyperlipidemia 272.4 Active 51607550 Problem Anxiety state, unspecified 300.00 Active 521571384 Problem Personal history of tobacco use, presenting hazards to health V15.82 Active 2353441862436 Problem Need for prophylactic vaccination and inoculation, Influenza V04.81 Active 907954859 Problem Headache 784.0 Active 29376784 Problem Encounter for long-term (current) use of other medications V58.69 Active 153965007 Problem Syncope and collapse 780.2 Active 732453478 ALLERGIES No Information ENCOUNTERS Encounter Location Date Diagnosis [place] [address] [address] Jul, [place] [id number] [place] [address]5635- 6675 Jul, Pre-op evaluation Z01.818 [place] [id number] [place] [address] 57562- 1720 Jul, [place] [address] [address] Jun, [place] [address] [place] [id number] [place] [address] 05998- 1588 Jun, [facility] [id number] [place] [address] 33891- 2520 Jun, [facility] [id number] [place] [address] 88785- 3956 Jun, [facility] [id number] [place] [address] 49258- 3988 Jun, [facility] [id number] [place] [address] 61508- 3607 Jun, Lumbar neuritis M54.16 [facility] [id number] [place] [address] 15417- 4209 May, [facility] [id number] [place] [address] 20681- 3131 May, [facility] [id number] [place] [address] 87128- 7108 May, Encounter for therapeutic drug level monitoring Z51.81 ; Encounter for immunization Z23 and Chronic pain syndrome G89.4 [facility] [id number] [place] [address] 72382- 7149 May, Lumbar neuritis M54.16 [facility] [id number] [place] [address] 89383- 1828 May, [facility] [id number] [place] [address] 41710- 4875 Apr, Lumbar neuritis M54.16 [facility] [id number] [place] [address] 76642- 0326 Apr, [facility] [id number] [place] [address] 00003- 1078 Mar, Lumbar neuritis M54.16 [facility] [id number] [place] [address] 47333- 4607 Mar, [facility] [id number] [place] [address] 33053- 9723 Mar, [facility] [id number] [place] [address] 94999- 8377 Feb, Lumbar neuritis M54.16 [facility] [id number] [place] [address] 12618- 8879 18 Feb, 2017 Lumbar neuritis M54.16 [facility] [id number] [place] [address] 76977- 9283 16 Feb, 2017 [facility] [id number] [place] [address] 75001- 2258 Feb, [facility] [id number] [place] [address] 04863- 2977 25 Jan, 2017 [facility] [id number] [place] [address] 71615- 6522 22 Jan, 2017 Peroneal tendonitis of left lower extremity M76.72 [facility] [id number] [place] [address] 15497- 5744 20 Jan, 2017 Lumbar neuritis M54.16 [facility] [id number] [place] [address] 97797- 8349 12 Jan, 2017 [facility] [id number] [place] [address] 86807- 3768 2016 Lumbar neuritis M54.16 [facility] [id number] [place] [address] 03489- 8793 Dec, [facility] [id number] [place] [address] 88945- 4651 18 Dec, 2016 Pain in right knee M25.561 ; Lumbar neuritis M54.16 and Cervical neuritis M54.12 [facility] [id number] [place] [address] 62174- 0053 14 Dec, 2016 [facility] [id number] [place] [address] 70592- 8906 Dec, [facility] [id number] [place] [address] 13926- 5349 Nov, Lumbar neuritis M54.16 [facility] [address] [place] [id number] [place] [address] 70512- 2844 Nov, Bilateral primary osteoarthritis of knee M17.0 [facility] [address] [id number] [place] [address] 07708- 1709 Nov, [facility] [address] [place] [id number] [place] [address] 15228- 9751 Nov, Bronchitis J40 and Plantar fasciitis M72.2 [facility] [address] [id number] [place] [address] 60419- 3249 Nov, [facility] [address] [id number] [place] [address] 01897- 5037 Oct, Lumbar neuritis M54.16 [facility] [address] [place] [id number] [place] [address] 32925- 2323 Oct, Lumbar neuritis M54.16 [facility] [address] [place] [id number] [place] [address] 90620- 9807 Oct, Lumbar neuritis M54.16 [facility] [address] [place] [id number] [place] [address] 53311- 7092 Oct, Plantar fasciitis M72.2 and Pain in right knee M25.561 [facility] [address] [place] [id number] [place] [address] 20858- 4779 16 Oct, 2016 Lumbar neuritis M54.16 ; Cervical neuritis M54.12 ; Other specified abdominal hernia without obstruction or gangrene K45.8 ; Heel spur, left M77.32 ; Plantar fasciitis M72.2 and Pain in right knee M25.561 [facility] [id number] [place] [address] 72447- 5641 13 Oct, 2016 [facility] [id number] [place] [address] 00832- 2905 14 Aug, 2014 [facility] [place] [facility] [address] [id number] [place] [address]- 8863 13 Aug, 2014 [facility] [place] [facility] [address] [facility] [id number] [address]- 7220 11 Apr, 2014 [facility] [place] [facility] [address] [facility] [id number] [place] [address]- 8435 Apr, [facility] [place] [facility] [address] [id number] [address]- 9952 Mar, [facility] [place] [facility] [address] [facility] [id number] [place] [address]- 3952 Mar, [facility] [place] [facility] [address] [facility] [id number] [place] [address]- 9911 Feb, [facility] [place] [facility] [address] [facility] [id number] [address]- 2211 Feb, [facility] [place] [facility] [address] [facility] [id number], [place] [address]- 4996 Feb, [facility] [place] [facility] [address] [facility] [id number] [address]- 1615 Feb, [facility] [place] [facility] [address] [facility] [id number][place] [address]- 1403 Feb, [facility] [place] [facility] [address] [facility] [id number] [address]- 3404 Feb, [facility] [place] [facility] [address] [facility] [id number] [address]- 2511 Feb, [facility] [place] [facility] [address] [id number] [address]- 4460 Feb, [facility] [place] [facility] [address] [facility] [id number][place] [address]- 4042 Jan, [facility] [place] [facility] [address] [facility] [id number] [address]- 4716 30 Jan, 2014 [facility] [place] [facility] [address] [id number] [place] [address] 2546 30 Sep, 2013 [facility] [place] [facility] [address] [id number] [place] [address] 2546 30 Sep, 2013 [facility] [place] [facility] [address] [id number] [place] [address] 2546 30 Sep, 2013 [facility] [place] [facility] [address] [id number] [place] [address] 2546 30 Sep, 2013 [facility] [place] [facility] [address] [id number] [place] [address] 2546 26 Sep, 2013 [facility] [place] [facility] [address] [id number] [place] [address] 2546 26 Sep, 2013 [facility] [place] [facility] [address] [id number] [place] [address]- 6304 22 Sep, 2013 [facility] [place] [facility] [address] [id number] [place] [address] 2543 22 Sep, 2013 [facility] [place] [facility] [address] [id number] [place] [address] 254 16 Sep, 2013 [facility] [place] [facility] [address] [id number] [place] [address] 2540 16 Sep, 2013 [facility] [place] [facility] [address] [id number] [place] [address] 2540 16 Sep, 2013 [facility] [place] [facility] [address] [id number] [place] [address] 2547 16 Sep, 2013 [facility] [place] [facility] [address] [id number] [place] [address] 2546 12 Sep, 2013 [facility] [place] [facility] [address] [id number] [place] [address] 2546 12 Sep, 2013 [facility] [place] [facility] [address] [id number] [place] [address] 2546 12 Sep, 2013 [facility] [place] [facility] [address] [id number] [place] [address]- 1049 Jan, [facility] [place] [facility] [address] [id number] [place] [address]- 9187 Jan, 2013 [facility] [place] [facility] [address] [id number] [place] [address]- 4756 Jan, 2013 [facility] [place] [facility] [address] [id number] [place] [address]- 9332 Jan, 2013 [facility] [place] [facility] [address] [id number] [place] [address]- 7456 Jan, 2013 [facility] [place] [facility] [address] [id number] [place] [address]- 0364 Jan, [facility] [place] [facility] [address] [id number] [place] [address]- 0530 Jan, [facility] [place] [facility] [address] [id number] [place] [address]- 6781 Dec, [facility] [place] [facility] [address] [id number] [place] [address]- 5327 Dec, [facility] [place] [facility] [address] [id number] [place] [address]- 8704 Dec, [facility] [place] [facility] [address] [id number] [place] [address]- 0150 Dec, [facility] [place] [facility] [address] [id number] [place] [address]- 3893 Dec, [facility] [place] [facility] [address] [id number] [address]- 7701 Dec, [facility] [place] [facility] [address] [id number] [place] [address]- 5727 Dec, [facility] [place] [facility] [address] [id number] [place] [address]- 8412 Dec, [facility] [place] [facility] [address] [id number] [place] [address]- 3636 Dec, [facility] [place] [facility] [address] [id number] [place] [address]- 4214 Dec, [facility] [place] [facility] [address] [id number] [place] [address]- 2694 Dec, [facility] [place] [facility] [address] [id number] [place] [address]- 9726 Dec, [facility] [place] [facility] [address] [id number] [place] [address]- 1608 Dec, [facility] [place] [facility] [address] [id number] [place] [address]- 9648 Dec, [facility] [place] [facility] [address] [id number] [place] [address]- 9512 Dec, [facility] [place] [facility] [address] [id number] [place] [address]- 6850 Dec, [facility] [place] [facility] [address] [id number] [place] [address]- 6582 Dec, [facility] [place] [facility] [address] [id number] [place] [address]- 8206 Dec, [facility] [place] [facility] [address] [id number] [place] [address]- 9858 Dec, [facility] [place] [facility] [address] [id number] [place] [address]- 1651 Nov, [facility] [place] [facility] [address] [id number] [place] [address]- 7712 Nov, [facility] [place] [facility] [address] [id number] [place] [address]- 7648 Nov, [facility] [place] [facility] [address] [id number] [place] [address]- 7793 Nov, [facility] [place] [facility] [address] [id number] [place] [address]- 0244 Nov, [facility] [place] [facility] [address] [id number] [place] [address]- 8847 Nov, [facility] [address] [facility] [id number], [place] [address]- 0016 Nov, [facility] [address] [facility] [id number][place] [address]- 7376 Nov, [facility] [address] [facility] [id number] [address]- 1223 Nov, [facility] [address] [address]- 4134 Nov, [facility] [address] [facility] [id number] [address]- 2663 Nov, [facility] [address] [address]- 7108 Oct, [facility] [address] [address]- 8279 Oct, [facility] [address] [address]- 8800 Oct, [facility] [address] [place] [id number] [address]- 4961 Apr, IMMUNIZATIONS No Known Immunizations SOCIAL HISTORY Never Assessed REASON FOR VISIT xray for referral PLAN OF CARE VITAL SIGNS MEDICATIONS Unknown [...]
--- OUTSIDE RECORDS SUMMARY | 2018-04-14 06:11 | XMS REPORT ---
Author Author PREETHI YIN Organization [facility] Address [address] [place] [address] Care Team Providers Care Claims Supervisor Name Role Phone PREETHI YIN Unavailable PROBLEMS Type Condition ICD9-CM Code XYX46-SS Code Onset Dates Condition Status SNOMED Code Problem Anxiety disorder, unspecified F41.9 Active 238359405 Problem Chronic pain syndrome G89.4 Active 465594313 Problem Bilateral primary osteoarthritis of knee M17.0 Active [id number] ALLERGIES No Information ENCOUNTERS Encounter Location Date Diagnosis [place] [address] [address] Nov, [facility] [address] [place] [id number] [place] [address] 15794- 1885 Oct, [facility] [id number] [place] [address] 80728- 9239 Oct, [facility] [id number] [place] [address] 95499- 7705 Oct, [facility] [id number] [place] [address] 66628- 2271 Oct, Allergic reaction to drug, subsequent encounter T78.40XD [facility] [id number] [place] [address] 85079- 6639 September, [facility] [id number] [place] [address] 28171- 5068 September, [facility] [id number] [place] [address] 11025- 6791 September, Low back pain radiating to lower extremity M54.5 [facility] [address] [address]- [address]150 Aug, [facility] [id number] [address] Aug, [facility] [address] [address] Aug, [facility] [address], [place] [address] 69[address] Aug, [facility] [id number] [place] [address] 94950- 7055 Aug, Incisional infection, initial encounter T81.4XXA [facility] [id number] [place] [address] 66136- 2074 Aug, [facility] [id number] [place] [address] 78103- 3712 Jul, [facility] [id number] [place] [address] 01633- 6519 Jul, [facility] [id number], [place] [address] 2768 Jul, Chronic pain syndrome G89.4 [facility] [id number] [place] [address] 45646- 2897 Jul, Pre-op evaluation Z01.818 [facility] [id number], [place] [address] 4807 Jul, [facility] [id number] [address] 8997 Jun, Anxiety disorder, unspecified F41.9 and Chronic pain syndrome G89.4 [facility] [address], [place] [address] 4459 Jun, [facility] [id number], [place] [address]- 7534 Jun, [facility] [address] [address]- 7089 Jun, [facility] [id number] [place] [address] 69110- 8086 Jun, [facility] [id number] [place] [address] 64633- 7964 Jun, Lumbar neuritis M54.16 [facility] [id number] [place] [address] 26538- 8121 May, [facility] [id number] [place] [address] 61075- 2698 May, [facility] [id number] [place] [address] 40877- 1167 May, Encounter for therapeutic drug level monitoring Z51.81 ; Encounter for immunization Z23 and Chronic pain syndrome G89.4 [facility] [id number] [place] [address] 90205- 1312 May, Lumbar neuritis M54.16 [facility] [id number] [place] [address] 49817- 4395 May, [facility] [id number] [place] [address] 06407- 8820 Apr, Lumbar neuritis M54.16 [facility] [id number] [place] [address] 82865- 8720 Apr, [facility] [id number] [place] [address] 40001- 2201 Mar, Lumbar neuritis M54.16 [facility] [id number] [place] [address] 04530- 9764 Mar, [facility] [id number] [place] [address] 24620- 7061 Mar, [facility] [id number] [place] [address] 78969- 3929 Feb, Lumbar neuritis M54.16 [facility] [id number] [place] [address] 67812- 9363 Feb, Lumbar neuritis M54.16 [facility] [id number] [place] [address] 08611- 8228 16 Feb, 2017 [facility] [id number] [place] [address] 01268- 1839 09 Feb, 2017 [facility] [id number] [place] [address] 26192- 6872 25 Jan, 2017 [facility] [id number] [place] [address] 42312- 2462 22 Jan, 2017 Peroneal tendonitis of left lower extremity M76.72 [facility] [address] 99662- 3341 20 Jan, [address] [facility] [id number] [place] [address] 29901- 8771 Jan, [facility] [id number] [place] [address] 58128- 8491 Dec, Lumbar neuritis M54.16 [facility] [id number] [place] [address] 77571- 7039 Dec, [facility] [id number] [place] [address] 39989- 2454 Dec, Pain in right knee M25.561 ; Lumbar neuritis M54.16 and Cervical neuritis M54.12 [facility] [id number] [place] [address] 80992- 2652 Dec, [facility] [id number] [place] [address] 80200- 0741 Dec, [facility] [id number] [place] [address] 99377- 9826 Nov, Lumbar neuritis M54.16 [facility] [id number] [place] [address] 81806- 5684 Nov, Bilateral primary osteoarthritis of knee M17.0 [facility] [id number] [place] [address] 05959- 3206 14 Nov, 2016 [facility] [id number] [place] [address] 05043- 6251 Nov, Bronchitis J40 and Plantar fasciitis M72.2 [facility] [id number] [place] [address] 57756- 9183 Nov, [facility] [id number] [place] [address] 13366- 3680 Oct, Lumbar neuritis M54.16 [facility] [id number] [place] [address] 48154- 5996 Oct, Lumbar neuritis M54.16 [facility] [id number] [place] [address] 87649- 2671 Oct, Lumbar neuritis M54.16 [facility] [address] [id number] [place] [address] 89490- 7145 Oct, Plantar fasciitis M72.2 and Pain in right knee M25.561 [facility] [address] [place] [id number] [place] [address] 64771- 7449 16 Oct, 2016 Lumbar neuritis M54.16 ; Cervical neuritis M54.12 ; Other specified abdominal hernia without obstruction or gangrene K45.8 ; Heel spur, left M77.32 ; Plantar fasciitis M72.2 and Pain in right knee M25.561 [facility] [address] [id number] [place] [address] 65168- 4958 13 Oct, 2016 [facility] [id number] [place] [address] 36747- 2616 Aug, [facility] [id number] [place] [address] 89081- 7714 Aug, [facility] [address] [id number] [place] [address] 71602- 3443 Apr, [facility] [address] [place] [address]- 8114 Apr, [facility] [place] [facility] [address] [id number] [place] [address]- 0226 Mar, [facility] [place] [facility] [address] [id number] [place] [address]- 7506 Mar, [facility] [place] [facility] [address] [id number] [place] [address]- 7085 10 Feb, 2014 [facility] [place] [facility] [address] [id number] [place] [address]- 4457 Feb, [facility] [place] [facility] [address] [id number] [place] [address]- 3035 Feb, [facility] [place] [facility] [address] [id number] [place] [address]- 5147 Feb, [facility] [place] [facility] [address] [facility] [id number] [place] [address]- 6332 Feb, [facility] [place] [facility] [address] [id number] [place] [address]- 9169 Feb, [facility] [place] [facility] [address] [facility] [id number] [place] [address]- 9425 Feb, [facility] [place] [facility] [address] [facility] [id number] [place] [address]- 3448 07 Feb, 2014 [facility] [place] [facility] [address] [id number] [place] [address]- 5352 30 Sep, 2013 [facility] [place] [facility] [address] [id number] [address]- 2545 30 Sep, 2013 [facility] [place] [facility] [address] [id number] [place] [address]- 6026 30 Sep, 2013 [facility] [place] [facility] [address] [facility] [id number] [place] [address]- 2546 30 Sep, 2013 [facility] [place] [facility] [address] [id number] [place] [address]- 6806 30 Sep, 2013 [facility] [place] [facility] [address] [id number] [place] [address]- 6651 30 Sep, 2013 [facility] [place] [facility] [address] [id number] [place] [address]- 1761 26 Sep, 2013 [facility] [place] [facility] [address] [id number] [place] [address]- 8951 26 Sep, 2013 [facility] [place] [facility] [address] [id number] [place] [address]- 2706 22 Sep, 2013 [facility] [place] [facility] [address] [id number] [place] [address]- 5590 22 Sep, 2013 [facility] [place] [facility] [address] [id number] [place] [address]- 6129 16 Sep, 2013 [facility] [place] [facility] [address] [id number] [place] [address]- 5236 16 Sep, 2013 [facility] [place] [facility] [address] [id number] [place] [address]- 8727 16 Sep, 2013 [facility] [place] [facility] [address] [id number] [place] [address]- 9580 16 Sep, 2013 [facility] [place] [facility] [address] [id number] [place] [address]- 1139 12 Sep, 2013 [facility] [place] [facility] [address] [id number] [place] [address]- 4497 12 Sep, 2013 [facility] [place] [facility] [address] [id number] [place] [address]- 2543 12 Sep, 2013 [facility] [place] [facility] [address] [id number] [place] [address]- 2544 12 Sep, 2013 [facility] [place] [facility] [address] [id number] [place] [address]- 2547 09 Sep, 2013 [facility] [place] [facility] [address] [id number] [place] [address]- 1651 09 Sep, 2013 [facility] [place] [facility] [address] [id number] [place] [address]- 8475 Jan, [facility] [place] [facility] [address] [id number] [place] [address]- 3460 Jan, [facility] [place] [facility] [address] [id number] [place] [address]- 9137 Jan, [facility] [place] [facility] [address] [id number] [place] [address]- 1709 Jan, [facility] [place] [facility] [address] [id number] [place] [address]- 0130 Dec, [facility] [place] [facility] [address] [id number] [place] [address]- 1123 Dec, [facility] [place] [facility] [address] [id number] [place] [address]- 7473 Dec, [facility] [place] [facility] [address] [id number] [place] [address]- 7899 Dec, [facility] [place] [facility] [address] [id number] [place] [address]- 4707 Dec, [facility] [place] [facility] [address] [id number] [place] [address]- 2486 Dec, [facility] [place] [facility] [address] [id number] [place] [address]- 7221 Dec, [facility] [place] [facility] [address] [id number] [place] [address]- 0419 Dec, [facility] [place] [facility] [address] [id number] [place] [address]- 8328 Dec, [facility] [place] [facility] [address] [id number] [place] [address]- 9256 Dec, [facility] [place] [facility] [address] [id number] [place] [address]- 6246 Dec, [facility] [place] [facility] [address] [id number] [place] [address]- 7531 Dec, [facility] [place] [facility] [address] [id number] [place] [address]- 4736 Dec, [facility] [place] [facility] [address] [id number] [place] [address]- 3231 Dec, [facility] [place] [facility] [address] [id number] [place] [address]- 0525 Dec, [facility] [place] [facility] [address] [id number] [place] [address]- 5475 Dec, [facility] [place] [facility] [address] [id number] [place] [address]- 4038 Dec, [facility] [place] [facility] [address] [id number] [place] [address]- 7799 Dec, [facility] [place] [facility] [address] [id number] [place] [address]- 5970 Dec, [facility] [place] [facility] [address] [id number] [place] [address]- 3503 Nov, [facility] [place] [facility] [address] [id number] [place] [address]- 1070 Nov, [facility] [place] [facility] [address] [id number] [place] [address]- 2191 Nov, [facility] [place] [facility] [address] [id number] [place] [address]- 1200 Nov, [facility] [place] [facility] [address] [id number] [place] [address]- 7446 Nov, [facility] [place] [facility] [address] [id number] [place] [address]- 8567 Nov, [facility] [place] [facility] [address] [id number] [place] [address]- 3054 Nov, [facility] [place] [facility] [address] [id number] [place] [address]- 4387 Nov, [facility] [place] [facility] [address] [id number] [place] [address]- 8619 Nov, [facility] [address] [facility] [id number] [address]- 2306 Nov, [facility] [address] [facility] [id number] [address]- 2546 Nov, [facility] [address] [facility] [id number] [address]- 3136 Oct, [facility] [address] [facility] [id number] [address]- 6676 Oct, [facility] [address] [facility] [id number], [place] [address]- 5326 Oct, [facility] [address] [facility] [id number], [place] [address]- 3306 Apr, IMMUNIZATIONS No Known Immunizations SOCIAL HISTORY Never Assessed REASON FOR VISIT Refill request PLAN OF CARE VITAL SIGNS MEDICATIONS Medication Instructions Dosage Frequency Start Date End Date Duration Status Morphine Sulfate ER 30 MG Orally at bed time 1 tablet Jun, 14 days Active Hydrocodone-Acetaminophen 10-325 MG Orally every 8 hours, PRN 1 tablet as needed Jun, 14 days Active Morphine Sulfate ER 60 mg Orally Once a day 1 capsule 24h Jun, 14 days Active RESULTS No Results PROCEDURES [...]
--- OUTSIDE RECORDS SUMMARY | 2018-04-14 06:11 | XMS REPORT ---
Author Author PREETHI YIN Organization [facility] Address [address] [place] [address] Care Team Providers Care Oral Health Therapist Name Role Phone PREETHI YIN Unavailable PROBLEMS Type Condition ICD9-CM Code ZYN25-BE Code Onset Dates Condition Status SNOMED Code Problem Anxiety disorder, unspecified F41.9 Active 917341278 Problem Chronic pain syndrome G89.4 Active 512686831 Problem Bilateral primary osteoarthritis of knee M17.0 Active 972128638 ALLERGIES No Information ENCOUNTERS Encounter Location Date Diagnosis [facility] [address] [address] Nov, [facility] [address] [address]- [address] Oct, [facility] [address] [address]- [address] Oct, [facility] [address] [address]- [address] Oct, Allergic reaction to drug, subsequent encounter T78.40XD [facility] [id number] [place] [address] 89803- 4624 September, [facility] [address] [address]- [address] September, [facility] [id number] [place] [address] 52767- 3736 September, Low back pain radiating to lower extremity M54.5 [facility] [id number] [place] [address] 67097- 0508 Aug, [facility] [address] [address]- 1505 Aug, [facility] [address] [address] Aug, [facility] [id number] [place] [address], [place] [address]- 1073 Aug, [facility] [address] [address] Aug, Incisional infection, initial encounter T81.4XXA [facility] [id number] [place] [address] 88480- 8309 Aug, [facility] [id number] [place] [address] 88757- 0539 Jul, [facility] [id number] [place] [address] 89687- 9132 Jul, [facility] [id number] [place] [address] 88042- 6336 Jul, Chronic pain syndrome G89.4 [facility] [address] [address] Jul, Pre-op evaluation Z01.818 [facility] [id number] [place] [address] 63805- 8359 Jul, [facility] [address] [address] Jun, Anxiety disorder, unspecified F41.9 and Chronic pain syndrome G89.4 [facility] [address] [address] 78[address] Jun, [facility] [address] [address] 2066 Jun, [facility] [address] [address]- 3746 Jun, [facility] [address] [address] 8645 Jun, [facility] [id number] [place] [address] 25308- 5295 Jun, Lumbar neuritis M54.16 [facility] [id number] [place] [address] 32196- 4420 May, [facility] [id number] [place] [address] 15395- 1875 May, [facility] [id number] [place] [address] 43023- 2795 May, Encounter for therapeutic drug level monitoring Z51.81 ; Encounter for immunization Z23 and Chronic pain syndrome G89.4 [facility] [id number] [place] [address] 15015- 0345 May, Lumbar neuritis M54.16 [facility] [id number] [place] [address] 70849- 0038 May, [facility] [id number] [place] [address] 13234- 7814 Apr, Lumbar neuritis M54.16 [facility] [id number] [place] [address] 32755- 1116 Apr, [facility] [id number] [place] [address] 72456- 6965 Mar, Lumbar neuritis M54.16 [facility] [id number] [place] [address] 56226- 2470 Mar, [facility] [id number] [place] [address] 09798- 1510 Mar, [facility] [id number] [place] [address] 97068- 8966 Feb, Lumbar neuritis M54.16 [facility] [id number] [place] [address] 08210- 0393 Feb, Lumbar neuritis M54.16 [facility] [id number] [place] [address] 35298- 0732 16 Feb, 2017 [facility] [id number] [place] [address] 25314- 1794 Feb, [facility] [id number] [place] [address] 92372- 2567 25 Jan, 2017 [facility] [id number] [place] [address] 09871- 8588 22 Jan, 2017 Peroneal tendonitis of left lower extremity M76.72 [facility] [id number] [place] [address] 15597- 7036 20 Jan, 2017 Lumbar neuritis M54.16 [facility] [id number] [place] [address] 40974- 3429 12 Jan, 2017 [facility] [id number] [place] [address] 14426- 6292 Dec, Lumbar neuritis M54.16 [facility] [id number] [place] [address] 53290- 8149 Dec, [facility] [id number] [place] [address] 56381- 6466 Dec, Pain in right knee M25.561 ; Lumbar neuritis M54.16 and Cervical neuritis M54.12 [facility] [id number] [place] [address] 77142- 1186 Dec, [facility] [id number] [place] [address] 22110- 2489 Dec, [facility] [id number] [place] [address] 32900- 5651 Nov, Lumbar neuritis M54.16 [facility] [id number] [place] [address] 03783- 4851 Nov, Bilateral primary osteoarthritis of knee M17.0 [facility] [id number] [place] [address] 59016- 5994 Nov, [facility] [id number] [place] [address] 38148- 6716 Nov, Bronchitis J40 and Plantar fasciitis M72.2 [facility] [id number] [place] [address] 44662- 5133 Nov, [facility] [id number] [place] [address] 51817- 9576 Oct, Lumbar neuritis M54.16 [facility] [id number] [place] [address] 00779- 8121 Oct, Lumbar neuritis M54.16 [facility] [id number] [place] [address] 44996- 5239 Oct, Lumbar neuritis M54.16 [facility] [id number] [place] [address] 59261- 9042 26 Oct, 2016 Plantar fasciitis M72.2 and Pain in right knee M25.561 [facility] [id number] [place] [address] 76021- 7690 16 Oct, 2016 Lumbar neuritis M54.16 ; Cervical neuritis M54.12 ; Other specified abdominal hernia without obstruction or gangrene K45.8 ; Heel spur, left M77.32 ; Plantar fasciitis M72.2 and Pain in right knee M25.561 [facility] [id number] [place] [address] 58715- 7398 13 Oct, 2016 [facility] [id number] [place] [address] 89265- 1066 Aug, [facility] [id number] [place] [address] 79584- 3769 Aug, [facility] [id number] [place] [address] 02158- 8350 Apr, [facility] [id number] [place] [address] 20664- 0308 Apr, [facility] [address] [place] [address]- 7918 13 Mar, 2014 [facility] [place] [facility] [address] [id number] [place] [address]- 2528 13 Mar, 2014 [facility] [place] [facility] [address] [id number] [place] [address]- 2039 Feb, [facility] [place] [facility] [address] [id number] [place] [address]- 9477 10 Feb, 2014 [facility] [place] [facility] [address] [id number] [place] [address]- 9474 Feb, [facility] [place] [facility] [address] [id number] [place] [address]- 9460 Feb, [facility] [place] [facility] [address] [id number] [place] [address]- 9517 Feb, [facility] [place] [facility] [address] [id number] [place] [address]- 8712 Feb, 2013 [facility] [place] [facility] [address] [id number] [place] [address]- 5110 Feb, [facility] [place] [facility] [address] [id number] [place] [address]- 3376 07 Feb, 2013 [facility] [place] [facility] [address] [facility] [id number] [place] [address]- 5305 30 Sep, 2013 [facility] [place] [facility] [address] [id number] [place] [address]- 2546 30 Sep, 2013 [facility] [place] [facility] [address] [id number] [place] [address]- 2546 30 Sep, 2013 [facility] [place] [facility] [address] [id number] [place] [address] 2546 30 Sep, 2013 [facility] [place] [facility] [address] [id number] [place] [address]- 2546 30 Sep, 2013 [facility] [place] [facility] [address] [id number] [place] [address]- 2544 30 Sep, 2013 [facility] [place] [facility] [address] [id number] [place] [address]- 9966 26 Sep, 2013 [facility] [place] [facility] [address] [id number] [place] [address]- 3289 26 Sep, 2013 [facility] [place] [facility] [address] [id number] [place] [address]- 8677 22 Jan, 2013 [facility] [place] [facility] [address] [id number] [place] [address]- 5185 22 Jan, 2013 [facility] [place] [facility] [address] [id number] [place] [address]- 3286 16 Sep, 2013 [facility] [place] [facility] [address] [id number] [place] [address]- 2417 16 Jan, 2013 [facility] [place] [facility] [address] [id number] [place] [address]- 1977 16 Jan, 2013 [facility] [place] [facility] [address] [id number] [place] [address]- 2085 16 Jan, 2013 [facility] [place] [facility] [address] [id number] [place] [address]- 6014 12 Sep, 2013 [facility] [place] [facility] [address] [id number] [place] [address]- 8144 12 Jan, 2013 [facility] [place] [facility] [address] [id number] [place] [address]- 3115 12 Sep, 2013 [facility] [place] [facility] [address] [id number] [place] [address]- 254 12 Sep, 2013 [facility] [place] [facility] [address] [id number] [place] [address]- 2548 09 Sep, 2013 [facility] [place] [facility] [address] [id number] [place] [address]- 2544 09 Sep, 2013 [facility] [place] [facility] [address] [id number] [place] [address]- 1617 09 Sep, 2013 [facility] [place] [facility] [address] [id number] [place] [address]- 3077 Jan, [facility] [place] [facility] [address] [id number] [place] [address]- 7809 Jan, [facility] [place] [facility] [address] [id number] [place] [address]- 8262 Jan, [facility] [place] [facility] [address] [id number] [place] [address]- 4341 Dec, [facility] [place] [facility] [address] [id number] [place] [address]- 9869 Dec, [facility] [place] [facility] [address] [id number] [place] [address]- 6708 Dec, [facility] [place] [facility] [address] [id number] [place] [address]- 4055 Dec, [facility] [place] [facility] [address] [id number] [place] [address]- 6351 Dec, [facility] [place] [facility] [address] [id number] [place] [address]- 0213 Dec, [facility] [place] [facility] [address] [id number] [place] [address]- 1697 Dec, [facility] [place] [facility] [address] [id number] [place] [address]- 2848 Dec, [facility] [place] [facility] [address] [id number] [place] [address]- 1830 Dec, [facility] [place] [facility] [address] [id number] [place] [address]- 0408 Dec, [facility] [place] [facility] [address] [id number] [place] [address]- 2461 Dec, [facility] [place] [facility] [address] [id number] [place] [address]- 3844 Dec, [facility] [place] [facility] [address] [id number] [place] [address]- 1748 Dec, [facility] [place] [facility] [address] [id number] [place] [address]- 5414 Dec, [facility] [place] [facility] [address] [id number] [place] [address]- 1374 Dec, [facility] [place] [facility] [address] [id number] [place] [address]- 6232 Dec, [facility] [place] [facility] [address] [id number] [place] [address]- 3911 Dec, [facility] [place] [facility] [address] [id number] [place] [address]- 6772 Dec, [facility] [place] [facility] [address] [id number] [place] [address]- 5332 Dec, [facility] [place] [facility] [address] [id number] [place] [address]- 6123 Nov, [facility] [place] [facility] [address] [id number] [place] [address]- 8546 Nov, [facility] [place] [facility] [address] [id number] [place] [address]- 5266 Nov, [facility] [place] [facility] [address] [id number] [place] [address]- 1211 Nov, [facility] [place] [facility] [address] [id number] [place] [address]- 9585 Nov, [facility] [place] [facility] [address] [id number] [place] [address]- 0049 Nov, [facility] [place] [facility] [address] [id number] [place] [address]- 9948 Nov, [facility] [place] [facility] [address] [id number] [place] [address]- 8314 Nov, [facility] [place] [facility] [address] [id number] [place] [address]- 6582 Nov, [facility] [place] [facility] [address] [id number] [place] [address]- 8518 Nov, [facility] [address] [facility] [id number] [address]- 7166 Nov, [facility] [address] [facility] [id number], [place] [address]- 0719 Oct, [facility] [address] [facility] [id number], [place] [address]- 8362 Oct, [facility] [address] [facility] [id number], [place] [address]- 7819 Oct, [facility] [address] [facility] [id number], [place] [address]- 6825 Apr, IMMUNIZATIONS No Known Immunizations SOCIAL HISTORY Never Assessed REASON FOR VISIT Controlled Med Refill 05/29/17 PLAN OF CARE VITAL SIGNS MEDICATIONS Medication Instructions Dosage Frequency Start Date End Date Duration Status Morphine Sulfate ER 60 MG Orally Once a day 1 capsule 24h May, 28 days Active Morphine Sulfate ER 30 MG Orally at bed time 1 tablet May, 28 days Active Hydrocodone-Acetaminophen 10-325 MG Orally every 8 hours, PRN 1 tablet as needed May, 28 days Active RESULTS No Results PROCEDURES [...]
--- OUTSIDE RECORDS SUMMARY | 2018-04-14 06:11 | XMS REPORT ---
Author Author PREETHI YIN Organization [facility] Address [address] [place] [address] Care Team Providers Care Night Filler Name Role Phone PREETHI YIN Unavailable PROBLEMS Type Condition ICD9-CM Code TNZ72-VE Code Onset Dates Condition Status SNOMED Code Problem Anxiety disorder, unspecified F41.9 Active 754707773 Problem Chronic pain syndrome G89.4 Active 820413993 Problem Bilateral primary osteoarthritis of knee M17.0 Active 152602830 ALLERGIES No Information ENCOUNTERS Encounter Location Date Diagnosis [facility] [id number] [place] [address] 12244- 9156 Nov, [facility] [id number] [place] [address] 10909- 6177 Oct, Allergic reaction to drug, subsequent encounter T78.40XD [facility] [id number] [place] [address] 19036- 9978 September, [facility] [id number] [place] [address] 30143- 5834 September, [facility] [id number] [place] [address] 00472- 4012 September, Low back pain radiating to lower extremity M54.5 [facility] [id number] [place] [address] 82359- 8379 Aug, [facility] [address] 89005- 9275 Aug, [facility] [id number] [place] [address] 47981- 0371 Aug, [facility] [address] 33396- 4230 Aug, [facility] [id number] [place] [address] 80837- 0101 Aug, Incisional infection, initial encounter T81.4XXA [facility] [id number] [place] [address] 40223- 8004 Aug, [facility] [id number] [place] [address] 85554- 6083 Jul, [facility] [id number] [place] [address] 59815- 3029 Jul, [facility] [id number] [place] [address] 21408- 9221 Jul, Chronic pain syndrome G89.4 [facility] [id number] [place] [address] 36109- 0746 Jul, Pre-op evaluation Z01.818 [facility] [id number] [place] [address] 81399- 3097 Jul, [facility] [id number] [place] [address] 04559- 5872 Jun, Anxiety disorder, unspecified F41.9 and Chronic pain syndrome G89.4 [facility] [id number] [place] [address] 27381- 8255 Jun, [facility] [id number] [place] [address] 69728- 1363 Jun, [facility] [id number] [place] [address] 37156- 4772 Jun, [facility] [id number] [place] [address] 85782- 9963 Jun, [facility] [id number] [place] [address] 31017- 1800 08 Jun, 2017 Lumbar neuritis M54.16 [facility] [id number] [place] [address] 92997- 9015 May, [facility] [id number] [place] [address] 12508- 4875 May, [facility] [id number] [place] [address] 99140- 8761 May, Encounter for therapeutic drug level monitoring Z51.81 ; Encounter for immunization Z23 and Chronic pain syndrome G89.4 [facility] [id number] [place] [address] 14558- 6847 May, Lumbar neuritis M54.16 [facility] [id number] [place] [address] 76483- 4114 May, [facility] [id number] [place] [address] 53003- 4420 Apr, Lumbar neuritis M54.16 [facility] [id number] [place] [address] 94258- 8401 Apr, [facility] [id number] [place] [address] 44937- 2543 Mar, Lumbar neuritis M54.16 [facility] [id number] [place] [address] 00119- 3328 Mar, [facility] [id number] [place] [address] 26995- 9373 Mar, [facility] [id number] [place] [address] 96817- 8627 Feb, Lumbar neuritis M54.16 [facility] [id number] [place] [address] 28962- 0180 Feb, Lumbar neuritis M54.16 [facility] [id number] [place] [address] 66880- 0483 Feb, [facility] [id number] [place] [address] 10670- 0772 Feb, [facility] [id number] [place] [address] 84868- 6451 Jan, [facility] [id number] [place] [address] 04268- 3872 22 Jan, 2017 Peroneal tendonitis of left lower extremity M76.72 [facility] [id number] [place] [address] 81961- 1624 20 Jan, 2017 Lumbar neuritis M54.16 [facility] [id number] [place] [address] 69062- 2259 12 Jan, 2017 [facility] [id number] [place] [address] 08781- 4181 Dec, Lumbar neuritis M54.16 [facility] [id number] [place] [address] 29350- 1767 Dec, [facility] [id number] [place] [address] 92513- 1766 18 Dec, 2016 Pain in right knee M25.561 ; Lumbar neuritis M54.16 and Cervical neuritis M54.12 [facility] [id number] [place] [address] 87931- 4063 Dec, [facility] [id number] [place] [address] 41849- 3838 Dec, [facility] [id number] [place] [address] 06725- 1441 Nov, Lumbar neuritis M54.16 [facility] [id number] [place] [address] 74761- 5560 Nov, Bilateral primary osteoarthritis of knee M17.0 [facility] [id number] [place] [address] 09500- 2695 Nov, [facility] [id number] [place] [address] 66087- 7634 Nov, Bronchitis J40 and Plantar fasciitis M72.2 [facility] [id number] [place] [address] 04768- 7051 Nov, [facility] [id number] [place] [address] 77760- 2690 Oct, Lumbar neuritis M54.16 [facility] [id number] [place] [address] 71928- 7008 30 Oct, 2016 Lumbar neuritis M54.16 [facility] [id number] [place] [address] 76093- 6554 Oct, Lumbar neuritis M54.16 [facility] [id number] [place] [address] 60472- 4479 26 Oct, 2016 Plantar fasciitis M72.2 and Pain in right knee M25.561 [facility] [id number] [place] [address] 36978- 2758 16 Oct, 2016 Lumbar neuritis M54.16 ; Cervical neuritis M54.12 ; Other specified abdominal hernia without obstruction or gangrene K45.8 ; Heel spur, left M77.32 ; Plantar fasciitis M72.2 and Pain in right knee M25.561 [facility] [id number] [place] [address] 50768- 8505 13 Oct, 2016 [facility] [id number] [place] [address] 32342- 5387 14 Aug, 2014 [facility] [id number] [place] [address] 93346- 4162 Aug, [facility] [id number] [place] [address] 80076- 7944 Apr, [facility] [id number] [place] [address] 80337- 3091 Apr, [facility] [id number] [place] [address] 25599- 1275 Mar, [facility] [id number] [place] [address] 57865- 1547 Mar, [facility] [address] [place] [address]- 7526 10 Feb, 2013 [facility] [place] [facility] [address] [id number] [place] [address]- 2183 10 Feb, 2013 [facility] [place] [facility] [address] [id number] [place] [address]- 6126 Feb, 2013 [facility] [place] [facility] [address] [id number] [place] [address]- 6738 Feb, 2013 [facility] [place] [facility] [address] [id number] [place] [address]- 0162 Feb, 2013 [facility] [place] [facility] [address] [id number] [place] [address]- 5637 Feb, 2013 [facility] [place] [facility] [address] [id number] [place] [address]- 3340 Feb, 2013 [facility] [place] [facility] [address] [id number] [place] [address]- 6366 Feb, 2013 [facility] [place] [facility] [address] [id number] [place] [address]- 2545 30 Sep, 2013 [facility] [place] [facility] [address] [id number] [place] [address] 2546 30 Sep, 2013 [facility] [place] [facility] [address] [facility] [id number] [place] [address]- 2543 30 Sep, 2013 [facility] [place] [facility] [address] [id number] [place] [address] 2546 30 Sep, 2013 [facility] [place] [facility] [address] [id number] [place] [address] 2546 30 Sep, 2013 [facility] [place] [facility] [address] [id number] [place] [address] 2546 30 Sep, 2013 [facility] [place] [facility] [address] [id number] [place] [address]- 2546 26 Sep, 2013 [facility] [place] [facility] [address] [id number] [place] [address] 2546 26 Sep, 2013 [facility] [place] [facility] [address] [id number] [place] [address]- 1970 22 Sep, 2013 [facility] [place] [facility] [address] [id number] [place] [address] 2547 22 Sep, 2013 [facility] [place] [facility] [address] [id number] [place] [address]- 2549 16 Sep, 2013 [facility] [place] [facility] [address] [id number] [place] [address] 2543 16 Sep, 2013 [facility] [place] [facility] [address] [id number] [place] [address]- 2050 16 Sep, 2013 [facility] [place] [facility] [address] [id number] [place] [address]- 0127 16 Sep, 2013 [facility] [place] [facility] [address] [id number] [place] [address]- 5089 12 Sep, 2013 [facility] [place] [facility] [address] [id number] [place] [address]- 1302 12 Sep, 2013 [facility] [place] [facility] [address] [id number] [place] [address]- 0569 12 Sep, 2013 [facility] [place] [facility] [address] [id number] [place] [address]- 1926 12 Sep, 2013 [facility] [place] [facility] [address] [id number] [place] [address]- 3613 09 Sep, 2013 [facility] [place] [facility] [address] [id number] [place] [address]- 254 09 Sep, 2013 [facility] [place] [facility] [address] [id number] [place] [address]- 2547 09 Sep, 2013 [facility] [place] [facility] [address] [id number] [place] [address]- 254 09 Sep, 2013 [facility] [place] [facility] [address] [id number] [place] [address]- 8481 05 Sep, 2013 [facility] [place] [facility] [address] [id number] [place] [address]- 8837 Jan, [facility] [place] [facility] [address] [id number] [place] [address]- 9136 Dec, [facility] [place] [facility] [address] [id number] [place] [address]- 3261 Dec, [facility] [place] [facility] [address] [id number] [place] [address]- 3136 Dec, [facility] [place] [facility] [address] [id number] [place] [address]- 3970 Dec, [facility] [place] [facility] [address] [id number] [place] [address]- 3956 Dec, [facility] [place] [facility] [address] [id number] [place] [address]- 4731 Dec, [facility] [place] [facility] [address] [id number] [place] [address]- 9425 Dec, [facility] [place] [facility] [address] [id number] [place] [address]- 8513 Dec, [facility] [place] [facility] [address] [id number] [place] [address]- 6270 Dec, [facility] [place] [facility] [address] [id number] [place] [address]- 1122 Dec, [facility] [place] [facility] [address] [id number] [place] [address]- 2843 Dec, [facility] [place] [facility] [address] [id number] [place] [address]- 3972 Dec, [facility] [place] [facility] [address] [id number] [place] [address]- 7087 Dec, [facility] [place] [facility] [address] [id number] [place] [address]- 8915 Dec, [facility] [place] [facility] [address] [id number] [place] [address]- 9398 Dec, [facility] [place] [facility] [address] [id number] [place] [address]- 7649 Dec, [facility] [place] [facility] [address] [id number] [place] [address]- 8010 Dec, [facility] [place] [facility] [address] [id number] [place] [address]- 2017 Dec, [facility] [place] [facility] [address] [id number] [place] [address]- 9589 Dec, [facility] [place] [facility] [address] [id number] [place] [address]- 4121 Nov, [facility] [place] [facility] [address] [id number] [place] [address]- 2916 Nov, [facility] [place] [facility] [address] [id number] [place] [address]- 8689 Nov, [facility] [place] [facility] [address] [id number] [place] [address]- 3268 Nov, [facility] [place] [facility] [address] [id number] [place] [address]- 1444 Nov, [facility] [place] [facility] [address] [id number] [place] [address]- 9415 Nov, [facility] [place] [facility] [address] [id number] [place] [address]- 0294 Nov, [facility] [place] [facility] [address] [id number] [place] [address]- 2372 Nov, [facility] [place] [facility] [address] [id number] [place] [address]- 3421 Nov, [facility] [place] [facility] [address] [id number] [place] [address]- 6925 Nov, [facility] [place] [facility] [address] [id number] [place] [address]- 7000 Nov, [facility] [place] [facility] [address] [id number] [place] [address]- 2293 Oct, [facility] [address] [facility] [id number] [place] [id number] 4941 Oct, [facility] [address] [facility] [id number] [place] [address]- 3782 Oct, [facility] [address] [facility] [id number] [place] [address]- 4034 Apr, IMMUNIZATIONS No Known Immunizations SOCIAL HISTORY Never Assessed REASON FOR VISIT Controlled Med Refill 05/01/17 PLAN OF CARE VITAL SIGNS MEDICATIONS Medication Instructions Dosage Frequency Start Date End Date Duration Status Hydrocodone-Acetaminophen 10-325 MG Orally every 8 hours, PRN 1 tablet as needed Apr, 28 days Active Morphine Sulfate ER 60 MG Orally Once a day 1 capsule 24h Apr, 28 days Active Morphine Sulfate ER 30 MG Orally at bed time 1 tablet Apr, 28 days Active RESULTS No Results PROCEDURES [...]
--- OUTSIDE RECORDS SUMMARY | 2018-04-14 06:12 | XMS REPORT ---
Author Author PREETHI YIN Organization [facility] Address [address] [place] [address] Care Team Providers Care Asic Engineer Name Role Phone PREETHI YIN Unavailable PROBLEMS Type Condition ICD9-CM Code [id number] Code Onset Dates Condition Status SNOMED Code Problem Anxiety disorder, unspecified F41.9 Active 123278422 Problem Chronic pain syndrome G89.4 Active 628397051 Problem Bilateral primary osteoarthritis of knee M17.0 Active [id number] ALLERGIES No Information ENCOUNTERS Encounter Location Date Diagnosis [place] [address] [address] Nov, [facility] [address] [place] [id number] [place] [address] 46676- 0433 Oct, [facility] [id number] [place] [address] 88779- 9134 Oct, [facility] [address] [id number] [place] [address] 26346- 9774 Oct, [facility] [id number] [place] [address] 91683- 4135 Oct, Allergic reaction to drug, subsequent encounter T78.40XD [facility] [id number] [place] [address] 08698- 0004 September, [facility] [id number] [place] [address] 61741- 7914 September, [facility] [address] [id number] [place] [address] 64632- 5689 September, Low back pain radiating to lower extremity M54.5 [facility] [address] [address]- 7244 Aug, [facility] [address] [address] 2583 Aug, [facility] [address] [address]- 4335 Aug, [facility] [address] [address]- 1483 Aug, [facility] [id number] [place] [address] 06491- 6979 Aug, Incisional infection, initial encounter T81.4XXA [facility] [address] [id number] [place] [address] 06427- 8303 Aug, [facility] [id number] [place] [address] 61922- 1073 Jul, [facility] [id number] [place] [address] 51841- 2551 Jul, [facility] [address], [place] [address]- 0343 Jul, Chronic pain syndrome G89.4 [facility] [id number] [place] [address] 69109- 4331 Jul, Pre-op evaluation Z01.818 [facility] [address], [place] [address]- 6874 Jul, [facility] [address] [address]- 0805 Jun, Anxiety disorder, unspecified F41.9 and Chronic pain syndrome G89.4 [facility] [address], [place] [address]- 9122 Jun, [facility] [address] [address]- 0830 Jun, [facility] [address], [place] [address]- 5262 Jun, [facility] [id number] [place] [address] 09192- 9246 Jun, [facility] [id number] [place] [address] 12458- 3309 Jun, Lumbar neuritis M54.16 [facility] [id number] [place] [address] 06073- 7238 May, [facility] [id number] [place] [address] 50249- 3695 May, [facility] [address] [id number] [place] [address] 96819- 2539 May, Encounter for therapeutic drug level monitoring Z51.81 ; Encounter for immunization Z23 and Chronic pain syndrome G89.4 [facility] [id number] [place] [address] 50287- 3050 May, Lumbar neuritis M54.16 [facility] [address] [id number] [place] [address] 81760- 0274 May, [facility] [address] [id number] [place] [address] 50061- 6180 Apr, Lumbar neuritis M54.16 [facility] [id number] [place] [address] 27494- 4489 Apr, [facility] [address] [id number] [place] [address] 23478- 4115 Mar, Lumbar neuritis M54.16 [facility] [address] [id number] [place] [address] 95963- 6894 Mar, [facility] [id number] [place] [address] 19739- 9409 Mar, [facility] [id number] [place] [address] 29243- 7043 Feb, Lumbar neuritis M54.16 [facility] [id number] [place] [address] 97039- 2031 Feb, Lumbar neuritis M54.16 [facility] [address] [id number] [place] [address] 41255- 5909 16 Feb, 2017 [facility] [address] [id number] [place] [address] 26267- 7888 09 Feb, 2017 [facility] [id number] [place] [address] 60979- 2597 25 Jan, 2017 [facility] [address] [place] [id number] [place] [address] 03791- 4821 22 Jan, 2017 Peroneal tendonitis of left lower extremity M76.72 [facility] [address] 93552- 0776 20 Jan, 2017 Lumbar neuritis M54.16 [facility] [id number] [place] [address] 55073- 5079 Jan, [facility] [address] [id number] [place] [address] 55223- 1819 Dec, Lumbar neuritis M54.16 [facility] [id number] [place] [address] 38505- 1796 Dec, [facility] [id number] [place] [address] 08905- 7897 Dec, Pain in right knee M25.561 ; Lumbar neuritis M54.16 and Cervical neuritis M54.12 [facility] [address] [place] [id number] [place] [address] 61239- 4096 Dec, [facility] [id number] [place] [address] 76244- 2447 Dec, [facility] [address] [id number] [place] [address] 46604- 7651 Nov, Lumbar neuritis M54.16 [facility] [id number] [place] [address] 69925- 2982 Nov, Bilateral primary osteoarthritis of knee M17.0 [facility] [address] [place] [id number] [place] [address] 58599- 8742 14 Nov, 2016 [facility] [id number] [place] [address] 56945- 9144 Nov, Bronchitis J40 and Plantar fasciitis M72.2 [facility] [id number] [place] [address] 83796- 8615 Nov, [facility] [id number] [place] [address] 99587- 6949 Oct, Lumbar neuritis M54.16 [facility] [address] [place] [id number] [place] [address] 73063- 0031 Oct, Lumbar neuritis M54.16 [facility] [address] [place] [place] [id number] [place] [address] 80630- 8878 Oct, Lumbar neuritis M54.16 [facility] [id number] [place] [address] 62939- 9642 Oct, Plantar fasciitis M72.2 and Pain in right knee M25.561 [facility] [address] [place] [id number] [place] [address] 82601- 8028 16 Oct, 2016 Lumbar neuritis M54.16 ; Cervical neuritis M54.12 ; Other specified abdominal hernia without obstruction or gangrene K45.8 ; Heel spur, left M77.32 ; Plantar fasciitis M72.2 and Pain in right knee M25.561 [facility] [address] [id number] [place] [address] 47157- 7609 13 Oct, 2016 [facility] [id number] [place] [address] 13640- 0930 Aug, [facility] [address] [place] [id number] [place] [address] 51966- 0681 Aug, [facility] [address] [id number] [place] [address] 60856- 7704 Apr, [facility] [address] [place] [address]- 7154 Apr, [facility] [place] [facility] [address] [id number] [place] [address]- 5895 Mar, [facility] [place] [facility] [address] [id number] [place] [address]- 0972 Mar, [facility] [place] [facility] [address] [id number] [place] [address]- 8530 10 Feb, 2014 [facility] [place] [facility] [address] [id number] [place] [address]- 9686 Feb, [facility] [place] [facility] [address] [id number] [place] [address]- 7168 Feb, [facility] [place] [facility] [address] [id number] [place] [address]- 9057 Feb, [facility] [place] [facility] [address] [facility] [id number] [place] [address]- 9447 Feb, [facility] [place] [facility] [address] [id number] [place] [address]- 7457 Feb, [facility] [place] [facility] [address] [facility] [id number] [place] [address]- 4760 Feb, [facility] [place] [facility] [address] [facility] [id number] [place] [address]- 5491 07 Feb, 2014 [facility] [place] [facility] [address] [id number] [place] [address]- 4164 30 Sep, 2013 [facility] [place] [facility] [address] [id number] [address]- 2547 30 Sep, 2013 [facility] [place] [facility] [address] [id number] [place] [address]- 8306 30 Sep, 2013 [facility] [place] [facility] [address] [facility] [id number] [place] [address]- 2546 30 Sep, 2013 [facility] [place] [facility] [address] [id number] [place] [address]- 4484 30 Sep, 2013 [facility] [place] [facility] [address] [id number] [place] [address]- 1290 30 Sep, 2013 [facility] [place] [facility] [address] [id number] [place] [address]- 2274 26 Sep, 2013 [facility] [place] [facility] [address] [id number] [place] [address]- 5890 26 Sep, 2013 [facility] [place] [facility] [address] [id number] [place] [address]- 1074 22 Sep, 2013 [facility] [place] [facility] [address] [id number] [place] [address]- 4235 22 Sep, 2013 [facility] [place] [facility] [address] [id number] [place] [address]- 2443 16 Sep, 2013 [facility] [place] [facility] [address] [id number] [place] [address]- 0027 16 Sep, 2013 [facility] [place] [facility] [address] [id number] [place] [address]- 5547 16 Sep, 2013 [facility] [place] [facility] [address] [id number] [place] [address]- 7474 16 Sep, 2013 [facility] [place] [facility] [address] [id number] [place] [address]- 8365 12 Sep, 2013 [facility] [place] [facility] [address] [id number] [place] [address]- 8918 12 Sep, 2013 [facility] [place] [facility] [address] [id number] [place] [address]- 2542 12 Sep, 2013 [facility] [place] [facility] [address] [id number] [place] [address]- 2548 12 Sep, 2013 [facility] [place] [facility] [address] [id number] [place] [address]- 2548 09 Sep, 2013 [facility] [place] [facility] [address] [id number] [place] [address]- 3341 09 Sep, 2013 [facility] [place] [facility] [address] [id number] [place] [address]- 9230 Jan, [facility] [place] [facility] [address] [id number] [place] [address]- 9515 Jan, [facility] [place] [facility] [address] [id number] [place] [address]- 5597 Jan, [facility] [place] [facility] [address] [id number] [place] [address]- 4094 Jan, [facility] [place] [facility] [address] [id number] [place] [address]- 3700 Dec, [facility] [place] [facility] [address] [id number] [place] [address]- 1641 Dec, [facility] [place] [facility] [address] [id number] [place] [address]- 3451 Dec, [facility] [place] [facility] [address] [id number] [place] [address]- 1205 Dec, [facility] [place] [facility] [address] [id number] [place] [address]- 4679 Dec, [facility] [place] [facility] [address] [id number] [place] [address]- 3952 Dec, [facility] [place] [facility] [address] [id number] [place] [address]- 9106 Dec, [facility] [place] [facility] [address] [id number] [place] [address]- 7017 Dec, [facility] [place] [facility] [address] [id number] [place] [address]- 7198 Dec, [facility] [place] [facility] [address] [id number] [place] [address]- 1598 Dec, [facility] [place] [facility] [address] [id number] [place] [address]- 9765 Dec, [facility] [place] [facility] [address] [id number] [place] [address]- 2036 Dec, [facility] [place] [facility] [address] [id number] [place] [address]- 8349 Dec, [facility] [place] [facility] [address] [id number] [place] [address]- 0311 Dec, [facility] [place] [facility] [address] [id number] [place] [address]- 3365 Dec, [facility] [place] [facility] [address] [id number] [place] [address]- 2343 Dec, [facility] [place] [facility] [address] [id number] [place] [address]- 8190 Dec, [facility] [place] [facility] [address] [id number] [place] [address]- 6155 Dec, [facility] [place] [facility] [address] [id number] [place] [address]- 9796 Dec, [facility] [place] [facility] [address] [id number] [place] [address]- 6588 Nov, [facility] [place] [facility] [address] [id number] [place] [address]- 0458 Nov, [facility] [place] [facility] [address] [id number] [place] [address]- 3712 Nov, [facility] [place] [facility] [address] [id number] [place] [address]- 5750 Nov, [facility] [place] [facility] [address] [id number] [place] [address]- 4657 Nov, [facility] [place] [facility] [address] [id number] [place] [address]- 6944 Nov, [facility] [place] [facility] [address] [id number] [place] [address]- 7803 Nov, [facility] [place] [facility] [address] [id number] [place] [address]- 7153 Nov, [facility] [place] [facility] [address] [id number] [place] [address]- 3442 Nov, [facility] [address] [facility] [id number], [place] [address]- 2760 Nov, [facility] [address] [facility] [id number], [place] [address]- 6120 Nov, [facility] [address] [facility] [id number]- 5153 Oct, [facility] [address] [id number] [address]- 2769 Oct, [facility] [address] [facility] [id number]- 3512 Oct, [facility] [address] [facility] [id number], [place] [address]- 2261 Apr, IMMUNIZATIONS No Known Immunizations SOCIAL HISTORY [...]
--- OUTSIDE RECORDS SUMMARY | 2018-04-14 06:12 | XMS REPORT ---
Author Author PREETHI YIN Organization [facility] [place] Address [address] [place] [address] Care Team Providers Care Machine Binder Stripper Name Role Phone PREETHI YIN Unavailable PROBLEMS Type Condition ICD9-CM Code [id number] Code Onset Dates Condition Status SNOMED Code Problem Chronic airway obstruction, not elsewhere classified 496 Active 05965225 Problem Unspecified essential hypertension 401.9 Active 12732228 Problem Occlusion and stenosis of carotid artery without mention of cerebral infarction 433.10 Active 943372273492451 Problem Anxiety disorder, unspecified F41.9 Active 544823442 Problem Chronic pain syndrome G89.4 Active 089757759 Problem Anxiety state, unspecified 300.00 Active 602444305 Problem Chronic pain syndrome 338.4 Active 946976278 Problem Bilateral primary osteoarthritis of knee M17.0 Active 581092098 Problem Other and unspecified hyperlipidemia 272.4 Active 84555977 Problem Need for prophylactic vaccination and inoculation, Influenza V04.81 Active 812453649 Problem Headache 784.0 Active 43076787 Problem Encounter for long-term (current) use of other medications V58.69 Active 997406802 Problem Syncope and collapse 780.2 Active 762748160 Problem Personal history of tobacco use, presenting hazards to health V15.82 Active 6608277934895 Problem Cervicalgia 723.1 Active 36062508 ALLERGIES No Information ENCOUNTERS Encounter Location Date Diagnosis [facility] [place] [id number] [address] September, [facility] [place] [id number] [place] [address]8977- 0552 September, Low back pain radiating to lower extremity M54.5 [facility] [place] [address] [address] Aug, [facility] [place] [id number] [place] [address] 39483- 8992 Aug, [facility] [place] [address] [address] 08[address] Aug, [facility] [place] [id number] [place] [address] 99177- 3156 Aug, [facility] [place] [address] [address] Aug, Incisional infection, initial encounter T81.4XXA [facility] [place] [id number] [place] [address] 00181- 4559 Aug, [facility] [place] [id number] [place] [address] 89531- 5540 Jul, [facility] [place] [id number] [place] [address] 49466- 7801 Jul, [facility] [place] [id number] [place] [address] 07610- 5562 Jul, Chronic pain syndrome G89.4 [facility] [place] [id number] [place] [address] 15976- 0874 Jul, Pre-op evaluation Z01.818 [facility] [place] [id number] [place] [address] 86341- 7195 Jul, [facility] [place] [address] [address] Jun, Anxiety disorder, unspecified F41.9 and Chronic pain syndrome G89.4 [facility] [place] [address], [place] [address] 33[address] Jun, [facility] [place] [id number] [place] [address] 62372- 8706 Jun, [facility] [place] [address], [place] [address]- 2846 Jun, [facility] [place] [id number] [place] [address] 87056- 1680 Jun, [facility] [place] [id number] [place] [address] 59237- 1878 Jun, Lumbar neuritis M54.16 [facility] [place] [id number] [place] [address] 15383- 8793 May, [facility] [place] [id number] [place] [address] 93953- 4944 May, [facility] [place] [id number] [place] [address] 06545- 2237 May, Encounter for therapeutic drug level monitoring Z51.81 ; Encounter for immunization Z23 and Chronic pain syndrome G89.4 [facility] [place] [id number] [place] [address] 30599- 2735 May, Lumbar neuritis M54.16 [facility] [place] [id number] [place] [address] 11458- 8827 May, [facility] [place] [id number] [place] [address] 86918- 2535 Apr, Lumbar neuritis M54.16 [facility] [place] [id number] [place] [address] 74701- 0085 Apr, [facility] [place] [id number] [place] [address] 82947- 1206 Mar, Lumbar neuritis M54.16 [facility] [place] [id number] [place] [address] 11458- 6831 Mar, [facility] [place] [id number] [place] [address] 61159- 1543 Mar, [facility] [place] [id number] [place] [address] 39745- 5863 Feb, Lumbar neuritis M54.16 [facility] [place] [id number] [place] [address] 63167- 1394 Feb, Lumbar neuritis M54.16 [facility] [place] [id number] [address]- 1140 16 Feb, 2017 [facility] [place] [id number] [place] [address] 13080- 6799 Feb, [facility] [place] [id number] [place] [address] 55357- 6305 25 Jan, 2017 [facility] [place] [id number] [place] [address] 67367- 0542 22 Jan, 2017 Peroneal tendonitis of left lower extremity M76.72 [facility] [place] [id number] [place] [address] 37806- 5198 20 Jan, 2017 Lumbar neuritis M54.16 [facility] [place] [id number] [place] [address] 17355- 5119 12 Jan, 2017 [facility] [place] [id number] [place] [address] 68597- 5714 Dec, Lumbar neuritis M54.16 [facility] [place] [id number] [place] [address] 35462- 1726 Dec, [facility] [place] [id number] [place] [address] 64792- 5954 Dec, Pain in right knee M25.561 ; Lumbar neuritis M54.16 and Cervical neuritis M54.12 [facility] [place] [id number] [place] [address] 17776- 4623 Dec, [facility] [place] [id number] [place] [address] 84249- 2850 Dec, [facility] [place] [id number] [place] [address] 01263- 5805 Nov, Lumbar neuritis M54.16 [facility] [place] [id number] [place] [address] 91497- 9825 Nov, Bilateral primary osteoarthritis of knee M17.0 [facility] [place] [id number] [place] [address] 51709- 4500 Nov, [facility] [place] [id number] [place] [address] 55946- 7415 Nov, Bronchitis J40 and Plantar fasciitis M72.2 [facility] [place] [id number] [place] [address] 04439- 9924 Nov, [facility] [place] [id number] [place] [address] 56165- 6776 Oct, Lumbar neuritis M54.16 [facility] [place] [id number] [place] [address] 68166- 4828 Oct, Lumbar neuritis M54.16 [facility] [place] [id number] [place] [address] 80965- 4192 Oct, Lumbar neuritis M54.16 [facility] [place] [id number] [place] [address] 57415- 8738 Oct, Plantar fasciitis M72.2 and Pain in right knee M25.561 [facility] [place] [id number] [place] [address] 59595- 3755 16 Oct, 2016 Lumbar neuritis M54.16 ; Cervical neuritis M54.12 ; Other specified abdominal hernia without obstruction or gangrene K45.8 ; Heel spur, left M77.32 ; Plantar fasciitis M72.2 and Pain in right knee M25.561 [facility] [place] [id number] [place] [address] 71090- 9175 13 Oct, 2016 [facility] [place] [id number] [place] [address] 77100- 6705 Aug, [facility] [place] [id number] [place] [address] 80922- 2727 Aug, [facility] [place] [id number] [place] [address] 36785- 9791 Apr, [facility] [place] [id number] [place] [address] 88359- 5450 Apr, [facility] [place] [facility] [address] [facility] [id number] [place] [address]- 1915 13 Mar, 2014 [facility] [place] [facility] [address] [id number] [place] [address]- 5274 Mar, [facility] [place] [facility] [address] [id number] [place] [address]- 4016 Feb, [facility] [place] [facility] [address] [id number] [place] [address]- 7510 Feb, [facility] [place] [facility] [address] [id number] [place] [address]- 9583 Feb, [facility] [place] [facility] [address] [id number] [place] [address]- 7336 Feb, [facility] [place] [facility] [address] [id number] [place] [address]- 0864 Feb, [facility] [place] [facility] [address] [id number] [place] [address]- 4847 Feb, 2013 [facility] [place] [facility] [address] [id number] [place] [address]- 2355 Feb, [facility] [place] [facility] [address] [id number] [place] [address]- 1647 Feb, [facility] [place] [facility] [address] [id number] [place] [address]- 6201 30 Jan, 2013 [facility] [place] [facility] [address] [id number] [place] [address]- 4621 30 Sep, 2013 [facility] [place] [facility] [address] [id number] [place] [address]- 2546 30 Sep, 2013 [facility] [place] [facility] [address] [id number] [place] [address]- 7106 30 Sep, 2013 [facility] [place] [facility] [address] [id number] [place] [address]- 9116 30 Sep, 2013 [facility] [place] [facility] [address] [id number] [place] [address]- 5780 30 Sep, 2013 [facility] [place] [facility] [address] [id number] [place] [address]- 3321 26 Sep, 2013 [facility] [place] [facility] [address] [id number] [place] [address] 2542 26 Sep, 2013 [facility] [place] [facility] [address] [id number] [place] [address]- 2973 22 Sep, 2013 [facility] [place] [facility] [address] [id number] [place] [address]- 5283 22 Sep, 2013 [facility] [place] [facility] [address] [id number] [place] [address]- 3965 16 Sep, 2013 [facility] [place] [facility] [address] [id number] [place] [address]- 0850 16 Sep, 2013 [facility] [place] [facility] [address] [id number] [place] [address]- 1698 16 Jan, 2013 [facility] [place] [facility] [address] [id number] [place] [address]- 6609 16 Sep, 2013 [facility] [place] [facility] [address] [id number] [place] [address]- 8992 12 Sep, 2013 [facility] [place] [facility] [address] [id number] [place] [address]- 2941 12 Sep, 2013 [facility] [place] [facility] [address] [id number] [place] [address]- 5258 12 Sep, 2013 [facility] [place] [facility] [address] [id number] [address]- 7187 12 Sep, 2013 [facility] [place] [facility] [address] [id number] [place] [address]- 2549 09 Sep, 2013 [facility] [place] [facility] [address] [id number] [place] [address]- 0276 09 Sep, 2013 [facility] [place] [facility] [address] [id number] [place] [address]- 6604 09 Sep, 2013 [facility] [place] [facility] [address] [id number] [place] [address]- 5428 Jan, [facility] [place] [facility] [address] [id number] [place] [address]- 2646 Jan, [facility] [place] [facility] [address] [id number] [place] [address]- 7311 Jan, [facility] [place] [facility] [address] [id number] [place] [address]- 0356 Dec, [facility] [place] [facility] [address] [id number] [place] [address]- 4513 Dec, [facility] [place] [facility] [address] [id number] [place] [address]- 6711 Dec, [facility] [place] [facility] [address] [id number] [place] [address]- 7072 Dec, [facility] [place] [facility] [address] [id number] [place] [address]- 9208 Dec, [facility] [place] [facility] [address] [id number] [place] [address]- 0951 Dec, [facility] [place] [facility] [address] [id number] [place] [address]- 6834 Dec, [facility] [place] [facility] [address] [id number] [place] [address]- 6443 Dec, [facility] [place] [facility] [address] [id number] [place] [address]- 5481 Dec, [facility] [place] [facility] [address] [id number] [place] [address]- 3426 Dec, [facility] [place] [facility] [address] [id number] [place] [address]- 8985 Dec, [facility] [place] [facility] [address] [id number] [place] [address]- 9110 Dec, [facility] [place] [facility] [address] [id number] [place] [address]- 3823 Dec, [facility] [place] [facility] [address] [id number] [place] [address]- 5063 Dec, [facility] [place] [facility] [address] [id number] [place] [address]- 5662 Dec, [facility] [place] [facility] [address] [id number] [place] [address]- 0964 Dec, [facility] [place] [facility] [address] [id number] [place] [address]- 4405 Dec, [facility] [place] [facility] [address] [id number] [place] [address]- 3524 Dec, [facility] [place] [facility] [address] [id number] [place] [address]- 8937 Dec, [facility] [place] [facility] [address] [id number] [place] [address]- 2306 Nov, [facility] [place] [facility] [address] [id number] [place] [address]- 4856 Nov, [facility] [place] [facility] [address] [id number] [place] [address]- 5498 Nov, [facility] [place] [facility] [address] [id number] [place] [address]- 9058 Nov, [facility] [place] [facility] [address] [id number] [place] [address]- 5805 Nov, [facility] [place] [facility] [address] [id number] [place] [address]- 3054 Nov, [facility] [place] [facility] [address] [id number] [place] [address]- 1779 Nov, [facility] [place] [facility] [address] [id number] [place] [address]- 2639 Nov, [facility] [place] [facility] [address] [id number] [place] [address]- 5795 Nov, [facility] [place] [facility] [address] [id number] [place] [address]- 4979 Nov, [facility] [place] [address] [facility] [id number] [place] [address]- 8656 Nov, [facility] [place] [address] [facility] [id number] [address]- 6736 Oct, [facility] [place] [address] [facility] [id number] [address]- 8216 Oct, [facility] [place] [address] [facility] [id number], [place] [address]- 8994 Oct, [facility] [place] [address] [facility] [id number] [address]- 7948 Apr, IMMUNIZATIONS No Known Immunizations SOCIAL HISTORY Never Assessed REASON FOR VISIT Controlled Refill Request PLAN OF CARE VITAL SIGNS MEDICATIONS Medication [...]
--- OUTSIDE RECORDS SUMMARY | 2018-04-14 06:13 | XMS REPORT ---
Author Author MARIO KEYUR Organization [facility] Address [address] [place] [address] Care Team Providers Care Imagery Intelligence Name Role Phone KEYUR MARTIN Unavailable PROBLEMS Type Condition ICD9-CM Code ZDW08-NT Code Onset Dates Condition Status SNOMED Code Problem Chronic airway obstruction, not elsewhere classified 496 Active 65093154 Problem Unspecified essential hypertension 401.9 Active 24333444 Problem Occlusion and stenosis of carotid artery without mention of cerebral infarction 433.10 Active 348969645629194 Problem Anxiety disorder, unspecified F41.9 Active 747177192 Problem Chronic pain syndrome G89.4 Active 079172460 Problem Anxiety state, unspecified 300.00 Active 703562461 Problem Chronic pain syndrome 338.4 Active 517050717 Problem Bilateral primary osteoarthritis of knee M17.0 Active 493032084 Problem Other and unspecified hyperlipidemia 272.4 Active 09347223 Problem Need for prophylactic vaccination and inoculation, Influenza V04.81 Active 003811309 Problem Headache 784.0 Active 49256098 Problem Encounter for long-term (current) use of other medications V58.69 Active 438284375 Problem Syncope and collapse 780.2 Active 447409673 Problem Personal history of tobacco use, presenting hazards to health V15.82 Active 3616920616406 Problem Cervicalgia 723.1 Active 05647832 ALLERGIES No Information ENCOUNTERS Encounter Location Date Diagnosis [facility] [address] [id number], [place] [address] September, [facility] [id number] [place] [address] 63527- 0477 Aug, [facility] [address] [place] [address] 67105- 1579 Aug, [facility] [id number] [place] [address] 39687- 9402 Aug, [facility] [id number] [place] [address] 91545- 1176 Aug, [facility] [id number] [place] [address] 87749- 0092 Aug, Incisional infection, initial encounter T81.4XXA [facility] [id number] [place] [address] 03124- 4751 Aug, [facility] [id number] [place] [address] 81230- 0453 Jul, [facility] [id number] [place] [address] 63870- 9860 Jul, [facility] [id number] [place] [address] 27385- 8778 Jul, Chronic pain syndrome G89.4 [facility] [id number] [place] [address] 21821- 2435 Jul, Pre-op evaluation Z01.818 [facility] [id number] [place] [address] 81636- 4610 Jul, [facility] [id number] [place] [address] 75879- 4608 Jun, Anxiety disorder, unspecified F41.9 and Chronic pain syndrome G89.4 [facility] [id number] [place] [address] 02602- 3527 Jun, [facility] [id number] [place] [address] 97771- 3250 Jun, [facility] [id number] [place] [address] 84563- 3539 Jun, [facility] [id number] [place] [address] 69260- 2001 Jun, [facility] [id number] [place] [address] 34010- 4918 Jun, Lumbar neuritis M54.16 [facility] [id number] [place] [address] 10460- 4599 May, [facility] [id number] [place] [address] 98494- 5636 May, [facility] [id number] [place] [address] 30618- 2953 May, Encounter for therapeutic drug level monitoring Z51.81 ; Encounter for immunization Z23 and Chronic pain syndrome G89.4 [facility] [id number] [place] [address] 58758- 2659 May, Lumbar neuritis M54.16 [facility] [id number] [place] [address] 89310- 6537 May, [facility] [id number] [place] [address] 84306- 7479 Apr, Lumbar neuritis M54.16 [facility] [id number] [place] [address] 84323- 5736 Apr, [facility] [id number] [place] [address] 43129- 8247 Mar, Lumbar neuritis M54.16 [facility] [id number] [place] [address] 37204- 0237 Mar, [facility] [id number] [place] [address] 49656- 2007 Mar, [facility] [id number] [place] [address] 58218- 4598 Feb, Lumbar neuritis M54.16 [facility] [id number] [place] [address] 93325- 9673 Feb, Lumbar neuritis M54.16 [facility] [id number] [place] [address] 60040- 3890 Feb, [facility] [id number] [place] [address] 56723- 9643 Feb, [facility] [id number] [place] [address] 39286- 3333 Jan, [facility] [id number] [place] [address] 69560- 0267 22 Jan, 2017 Peroneal tendonitis of left lower extremity M76.72 [facility] [id number] [place] [address] 14492- 7878 20 Jan, 2017 Lumbar neuritis M54.16 [facility] [id number] [place] [address] 40119- 0271 Jan, [facility] [id number] [place] [address] 84200- 8916 Dec, Lumbar neuritis M54.16 [facility] [id number] [place] [address] 06035- 4993 Dec, [facility] [id number] [place] [address] 76008- 2824 Dec, Pain in right knee M25.561 ; Lumbar neuritis M54.16 and Cervical neuritis M54.12 [facility] [id number] [place] [address] 50320- 2429 Dec, [facility] [id number] [place] [address] 07626- 2328 Dec, [facility] [id number] [place] [address] 19828- 5596 Nov, Lumbar neuritis M54.16 [facility] [id number] [place] [address] 35515- 4345 Nov, Bilateral primary osteoarthritis of knee M17.0 [facility] [id number] [place] [address] 00123- 5714 Nov, [facility] [id number] [place] [address] 57371- 5618 14 Jewel, 2017 Bronchitis J40 and Plantar fasciitis M72.2 [facility] [id number] [place] [address] 99458- 2034 Nov, [facility] [address] 90401- 2891 Oct, Lumbar neuritis M54.16 [facility] [address] 64824- 5923 Oct, Lumbar neuritis M54.16 [facility] [address] 04690- 9152 Oct, Lumbar neuritis M54.16 [facility] [address] 74777- 8580 26 Oct, 2016 Plantar fasciitis M72.2 and Pain in right knee M25.561 [facility] [address] 86722- 4817 16 Oct, 2016 Lumbar neuritis M54.16 ; Cervical neuritis M54.12 ; Other specified abdominal hernia without obstruction or gangrene K45.8 ; Heel spur, left M77.32 ; Plantar fasciitis M72.2 and Pain in right knee M25.561 [facility] [id number] [place] [address] 99163- 4807 13 Oct, 2016 [facility] [id number] [place] [address] 38590- 6597 14 Aug, 2014 [facility] [id number] [place] [address] 09849- 1137 Aug, [facility] [id number] [place] [address] 20617- 0641 Apr, [facility] [address] 80240- 7496 Apr, [facility] [id number] [place] [address] 34780- 0250 Mar, [facility] [address] [place] [address]- 3789 13 Mar, 2013 [facility] [place] [facility] [address] [id number] [place] [address]- 0675 10 Feb, 2013 [facility] [place] [facility] [address] [id number] [place] [address]- 9178 10 Feb, 2013 [facility] [place] [facility] [address] [id number] [place] [address]- 9872 09 Feb, 2013 [facility] [place] [facility] [address] [id number] [place] [address]- 1085 09 Feb, 2013 [facility] [place] [facility] [address] [id number] [place] [address]- 3055 Feb, 2013 [facility] [place] [facility] [address] [id number] [place] [address]- 1383 Feb, 2013 [facility] [place] [facility] [address] [id number] [place] [address]- 5381 Feb, 2013 [facility] [place] [facility] [address] [id number] [place] [address]- 8127 07 Feb, 2013 [facility] [place] [facility] [address] [id number] [place] [address]- 4327 30 Sep, 2013 [facility] [place] [facility] [address] [facility] [id number] [place] [address]- 6602 30 Sep, 2013 [facility] [place] [facility] [address] [id number] [place] [address]- 5026 30 Sep, 2013 [facility] [place] [facility] [address] [id number] [place] [address]- 2544 30 Sep, 2013 [facility] [place] [facility] [address] [id number] [place] [address]- 2546 30 Sep, 2013 [facility] [place] [facility] [address] [id number] [place] [address]- 2546 30 Sep, 2013 [facility] [place] [facility] [address] [facility] [id number] [place] [address]- 3678 26 Sep, 2013 [facility] [place] [facility] [address] [id number] [place] [address]- 2545 26 Sep, 2013 [facility] [place] [facility] [address] [id number] [place] [address] 2540 22 Sep, 2013 [facility] [place] [facility] [address] [id number] [place] [address] 2540 22 Sep, 2013 [facility] [place] [facility] [address] [id number] [place] [address] 2548 16 Sep, 2013 [facility] [place] [facility] [address] [id number] [place] [address] 2548 16 Sep, 2013 [facility] [place] [facility] [address] [id number] [place] [address]- 1993 16 Sep, 2013 [facility] [place] [facility] [address] [id number] [place] [address]- 8180 16 Sep, 2013 [facility] [place] [facility] [address] [id number] [place] [address]- 5767 12 Sep, 2013 [facility] [place] [facility] [address] [id number] [place] [address]- 3930 12 Sep, 2013 [facility] [place] [facility] [address] [id number] [place] [address]- 1546 12 Sep, 2013 [facility] [place] [facility] [address] [id number] [place] [address]- 7167 12 Sep, 2013 [facility] [place] [facility] [address] [id number] [place] [address]- 2548 09 Sep, 2013 [facility] [place] [facility] [address] [id number] [place] [address] 2544 09 Sep, 2013 [facility] [place] [facility] [address] [id number] [place] [address]- 2540 09 Sep, 2013 [facility] [place] [facility] [address] [id number] [place] [address]- 2548 09 Sep, 2013 [facility] [place] [facility] [address] [id number] [place] [address]- 3859 Jan, [facility] [place] [facility] [address] [id number] [place] [address]- 4653 Jan, [facility] [place] [facility] [address] [id number] [place] [address]- 5202 Dec, [facility] [place] [facility] [address] [id number] [place] [address]- 6604 Dec, [facility] [place] [facility] [address] [id number] [place] [address]- 2881 Dec, [facility] [place] [facility] [address] [id number] [place] [address]- 7941 Dec, [facility] [place] [facility] [address] [id number] [place] [address]- 6621 Dec, [facility] [place] [facility] [address] [id number] [place] [address]- 4417 Dec, [facility] [place] [facility] [address] [id number] [place] [address]- 4899 Dec, [facility] [place] [facility] [address] [id number] [place] [address]- 3248 Dec, [facility] [place] [facility] [address] [id number] [place] [address]- 6537 Dec, [facility] [place] [facility] [address] [id number] [place] [address]- 9948 Dec, [facility] [place] [facility] [address] [id number] [place] [address]- 4961 Dec, [facility] [place] [facility] [address] [id number] [place] [address]- 1847 Dec, [facility] [place] [facility] [address] [id number] [place] [address]- 4669 Dec, [facility] [place] [facility] [address] [id number] [place] [address]- 7847 Dec, [facility] [place] [facility] [address] [id number] [place] [address]- 2876 Dec, [facility] [place] [facility] [address] [id number] [place] [address]- 8154 Dec, [facility] [place] [facility] [address] [id number] [place] [address]- 2689 Dec, [facility] [place] [facility] [address] [id number] [place] [address]- 2217 Dec, [facility] [place] [facility] [address] [id number] [place] [address]- 8053 Dec, [facility] [place] [facility] [address] [id number] [place] [address]- 9771 Nov, [facility] [place] [facility] [address] [id number] [place] [address]- 2363 Nov, [facility] [place] [facility] [address] [id number] [place] [address]- 9024 Nov, [facility] [place] [facility] [address] [id number] [place] [address]- 6375 Nov, [facility] [place] [facility] [address] [id number] [place] [address]- 4565 Nov, [facility] [place] [facility] [address] [id number] [place] [address]- 9505 Nov, [facility] [place] [facility] [address] [id number] [place] [address]- 7425 Nov, [facility] [place] [facility] [address] [id number] [place] [address]- 2377 Nov, [facility] [place] [facility] [address] [id number] [place] [address]- 3809 Nov, [facility] [place] [facility] [address] [id number] [place] [address]- 7057 Nov, [facility] [place] [facility] [address] [id number] [place] [address]- 1908 Nov, [facility] [address] [facility] [id number] [place] [address]- 0272 Oct, [facility] [address] [facility] [id number], [place] [address]- 2046 Oct, [facility] [address] [facility] [id number], [place] [address]- 6726 Oct, [facility] [address] [facility] [id number], [place] [address] 2546 Apr, IMMUNIZATIONS No Known Immunizations SOCIAL HISTORY Never Assessed REASON FOR VISIT heel spur and plantar fasciitis. Consult Dr. Martin;Michelle RT(R) PLAN OF CARE Activity Details Follow Up prn Reason: VITAL SIGNS MEDICATIONS Unknown Medications RESULTS Name Result Date Reference Range MRI : Ankle, Left 2017-02-19 MRI : Foot, Left 2017-02-19 PROCEDURES No Known procedures INSTRUCTIONS MEDICATIONS ADMINISTERED [...]
--- OUTSIDE RECORDS SUMMARY | 2018-04-14 06:13 | XMS REPORT ---
Author Author PREETHI YIN Organization [facility] [place] Address [address] [place] [address] Care Team Providers Care Marine Consultant Name Role Phone PREETHI YIN Unavailable PROBLEMS Type Condition ICD9-CM Code UMR97-IN Code Onset Dates Condition Status SNOMED Code Problem Chronic airway obstruction, not elsewhere classified 496 Active 95749288 Problem Unspecified essential hypertension 401.9 Active 79327894 Problem Occlusion and stenosis of carotid artery without mention of cerebral infarction 433.10 Active 812527913550936 Problem Anxiety disorder, unspecified F41.9 Active 525734157 Problem Chronic pain syndrome G89.4 Active 383120667 Problem Anxiety state, unspecified 300.00 Active 547135144 Problem Chronic pain syndrome 338.4 Active 769189298 Problem Bilateral primary osteoarthritis of knee M17.0 Active 958828167 Problem Other and unspecified hyperlipidemia 272.4 Active 29145643 Problem Need for prophylactic vaccination and inoculation, Influenza V04.81 Active 756972006 Problem Headache 784.0 Active 18207581 Problem Encounter for long-term (current) use of other medications V58.69 Active 884697076 Problem Syncope and collapse 780.2 Active 171619351 Problem Personal history of tobacco use, presenting hazards to health V15.82 Active 0643129837696 Problem Cervicalgia 723.1 Active 42589414 ALLERGIES No Information ENCOUNTERS Encounter Location Date Diagnosis [facility] [place] [id number], [place] [address] Aug, [facility] [place] [id number] [place] [address] 80732- 2788 Aug, [facility] [place] [address], [place] [address] Aug, Incisional infection, initial encounter [address] [place] [address] [place] [address] 41159- 3809 Aug, [facility] [place] [id number] [place] [address] 77714- 0367 Jul, [facility] [place] [id number] [place] [address] 305801- 2722 Jul, [facility] [place] [id number] [place] [address] 89656- 9157 Jul, Chronic pain syndrome G89.4 [facility] [place] [id number] [place] [address] 71445- 7137 Jul, Pre-op evaluation Z01.818 [facility] [place] [id number] [place] [address] 07857- 1681 Jul, [facility] [place] [id number] [place] [address] 59476- 4591 Jun, Anxiety disorder, unspecified F41.9 and Chronic pain syndrome G89.4 [facility] [place] [id number] [place] [address] 29006- 6352 Jun, [facility] [place] [id number] [place] [address] 68997- 4540 Jun, [facility] [place] [id number] [place] [address] 00835- 0234 Jun, [facility] [place] [id number] [place] [address] 26644- 7155 Jun, [facility] [place] [id number] [place] [address] 09191- 0550 Jun, Lumbar neuritis M54.16 [facility] [place] [id number] [place] [address] 65717- 0752 May, [facility] [place] [id number] [place] [address] 02203- 2913 May, [facility] [place] [id number] [place] [address] 18596- 3138 May, Encounter for therapeutic drug level monitoring Z51.81 ; Encounter for immunization Z23 and Chronic pain syndrome G89.4 [facility] [place] [id number] [place] [address] 80117- 6026 May, Lumbar neuritis M54.16 [facility] [place] [id number] [place] [address] 75870- 7183 May, [facility] [place] [id number] [place] [address] 03594- 9694 Apr, Lumbar neuritis M54.16 [facility] [place] [id number] [place] [address] 72429- 2968 Apr, [facility] [place] [id number] [place] [address] 62727- 5334 Mar, Lumbar neuritis M54.16 [facility] [place] [id number] [place] [address] 34010- 6629 Mar, [facility] [place] [id number] [place] [address] 79201- 1302 Mar, [facility] [place] [id number] [place] [address] 90233- 3763 Feb, Lumbar neuritis M54.16 [facility] [place] [id number] [place] [address] 54656- 0816 Feb, Lumbar neuritis M54.16 [facility] [place] [id number] [place] [address] 09034- 4800 Feb, [facility] [place] [id number] [place] [address] 99968- 4021 Feb, [facility] [place] [id number] [place] [address] 03344- 6730 Jan, [facility] [place] [id number] [place] [address] 61947- 5031 Jan, Peroneal tendonitis of left lower extremity M76.72 [facility] [place] [id number] [place] [address] 40723- 6791 20 Jan, 2017 Lumbar neuritis M54.16 [facility] [place] [id number] [place] [address] 07378- 8592 Jan, [facility] [place] [id number] [place] [address] 03714- 4365 Dec, Lumbar neuritis M54.16 [facility] [place] [address] 76091- 2124 Dec, [facility] [place] [id number] [place] [address] 06042- 3464 Dec, Pain in right knee M25.561 ; Lumbar neuritis M54.16 and Cervical neuritis M54.12 [facility] [place] [id number] [place] [address] 47660- 2226 Dec, [facility] [place] [id number] [place] [address] 94648- 8873 Dec, [facility] [place] [id number] [place] [address] 10850- 9281 Nov, Lumbar neuritis M54.16 [facility] [place] [id number] [place] [address] 13210- 4706 Nov, Bilateral primary osteoarthritis of knee M17.0 [facility] [place] [id number] [place] [address] 14817- 1423 Nov, [facility] [place] [id number] [place] [address] 50112- 2105 Nov, Bronchitis J40 and Plantar fasciitis M72.2 [facility] [place] [id number] [place] [address] 23108- 0717 Nov, [facility] [place] [id number] [place] [address] 33787- 5534 Oct, Lumbar neuritis M54.16 [facility] [place] [id number] [place] [address] 45078- 4641 30 Oct, 2016 Lumbar neuritis M54.16 [facility] [place] [id number] [place] [address] 06887- 3392 28 Oct, 2016 Lumbar neuritis M54.16 [facility] [place] [id number] [place] [address] 29694- 3598 26 Oct, 2016 Plantar fasciitis M72.2 and Pain in right knee M25.561 [facility] [place] [id number] [place] [address] 75469- 8658 16 Oct, 2016 Lumbar neuritis M54.16 ; Cervical neuritis M54.12 ; Other specified abdominal hernia without obstruction or gangrene K45.8 ; Heel spur, left M77.32 ; Plantar fasciitis M72.2 and Pain in right knee M25.561 [facility] [place] [id number] [place] [address] 56786- 5930 13 Oct, 2016 [facility] [place] [id number] [place] [address] 16090- 0487 14 Aug, 2014 [facility] [place] [id number] [place] [address] 79452- 6142 Aug, [facility] [place] [id number] [place] [address] 40944- 1704 Apr, [facility] [place] [id number] [place] [address] 91993- 2667 Apr, [facility] [place] [id number] [place] [address] 10869- 5706 Mar, [facility] [place] [address] [place] [address] 02583- 7691 Mar, [facility] [place] [id number] [place] [address] 92977- 8364 Feb, [facility] [place] [id number] [place] [address] 81868- 2702 Feb, [facility] [place] [id number] [place] [address] 54634- 3123 Feb, 2013 [facility] [place] [facility] [address] [id number] [place] [address]- 9696 Feb, 2013 [facility] [place] [facility] [address] [id number] [place] [address]- 2041 Feb, 2013 [facility] [place] [facility] [address] [id number] [place] [address]- 2190 Feb, 2013 [facility] [place] [facility] [address] [id number] [place] [address]- 5790 Feb, 2013 [facility] [place] [facility] [address] [id number] [place] [address]- 0124 Feb, 2013 [facility] [place] [facility] [address] [id number] [place] [address]- 7523 30 Jan, 2013 [facility] [place] [facility] [address] [id number] [place] [address]- 1972 30 Sep, 2013 [facility] [place] [facility] [address] [id number] [place] [address]- 2541 30 Sep, 2013 [facility] [place] [facility] [address] [id number] [place] [address] 2548 30 Sep, 2013 [facility] [place] [facility] [address] [id number] [place] [address]- 2549 30 Sep, 2013 [facility] [place] [facility] [address] [id number] [address] 2549 30 Sep, 2013 [facility] [place] [facility] [address] [id number] [address]- 2546 26 Sep, 2013 [facility] [place] [facility] [address] [id number] [place] [address] 2546 26 Sep, 2013 [facility] [place] [facility] [address] [id number] [place] [address]- 2545 22 Sep, 2013 [facility] [place] [facility] [address] [id number] [place] [address]- 2543 22 Sep, 2013 [facility] [place] [facility] [address] [id number] [place] [address]- 3644 16 Sep, 2013 [facility] [place] [facility] [address] [id number] [place] [address]- 5574 16 Sep, 2013 [facility] [place] [facility] [address] [id number] [place] [address]- 2546 16 Jan, 2013 [facility] [place] [facility] [address] [id number] [place] [address]- 2064 16 Jan, 2013 [facility] [place] [facility] [address] [id number] [place] [address]- 1192 12 Jan, 2013 [facility] [place] [facility] [address] [id number] [place] [address]- 5686 12 Jan, 2013 [facility] [place] [facility] [address] [id number] [place] [address]- 2312 12 Jan, 2013 [facility] [place] [facility] [address] [id number] [place] [address]- 7693 12 Jan, 2013 [facility] [place] [facility] [address] [id number] [place] [address]- 3421 09 Jan, 2013 [facility] [place] [facility] [address] [id number] [place] [address]- 5741 09 Jan, 2013 [facility] [place] [facility] [address] [id number] [place] [address]- 4257 09 Jan, 2013 [facility] [place] [facility] [address] [id number] [place] [address]- 2549 Jan, 2013 [facility] [place] [facility] [address] [id number] [place] [address]- 2542 Jan, 2013 [facility] [place] [facility] [address] [id number] [place] [address]- 2548 Jan, 2013 [facility] [place] [facility] [address] [id number] [place] [address]- 8996 Dec, [facility] [place] [facility] [address] [id number] [place] [address]- 9599 Dec, [facility] [place] [facility] [address] [id number] [place] [address]- 0235 Dec, [facility] [place] [facility] [address] [id number] [place] [address]- 7314 Dec, [facility] [place] [facility] [address] [id number] [place] [address]- 9777 Dec, [facility] [place] [facility] [address] [id number] [place] [address]- 7993 Dec, [facility] [place] [facility] [address] [id number] [place] [address]- 3643 Dec, [facility] [place] [facility] [address] [id number] [place] [address]- 5556 Dec, [facility] [place] [facility] [address] [id number] [place] [address]- 3570 Dec, [facility] [place] [facility] [address] [id number] [place] [address]- 0052 Dec, [facility] [place] [facility] [address] [id number] [place] [address]- 5277 Dec, [facility] [place] [facility] [address] [id number] [place] [address]- 9463 Dec, [facility] [place] [facility] [address] [id number] [place] [address]- 4511 Dec, [facility] [place] [facility] [address] [id number] [place] [address]- 1080 Dec, [facility] [place] [facility] [address] [id number] [place] [address]- 9519 Dec, [facility] [place] [facility] [address] [id number] [place] [address]- 5169 Dec, [facility] [place] [facility] [address] [id number] [place] [address]- 0975 Dec, [facility] [place] [facility] [address] [id number] [place] [address]- 4180 Dec, [facility] [place] [facility] [address] [id number] [place] [address]- 7020 Dec, [facility] [place] [facility] [address] [id number] [place] [address]- 2031 Nov, [facility] [place] [facility] [address] [id number] [place] [address]- 4570 Nov, [facility] [place] [facility] [address] [id number] [place] [address]- 1768 Nov, [facility] [place] [facility] [address] [id number] [place] [address]- 9683 Nov, [facility] [place] [facility] [address] [id number] [place] [address]- 7664 Nov, [facility] [place] [facility] [address] [id number] [place] [address]- 6805 Nov, [facility] [place] [facility] [address] [id number] [place] [address]- 2725 Nov, [facility] [place] [facility] [address] [id number] [place] [address]- 0502 Nov, [facility] [place] [facility] [address] [id number] [place] [address]- 0371 Nov, [facility] [place] [facility] [address] [id number] [place] [address]- 2650 Nov, [facility] [place] [facility] [address] [id number] [place] [address]- 0408 Nov, [facility] [place] [facility] [address] [id number] [place] [address]- 7481 Oct, [facility] [place] [facility] [address] [id number] [place] [address]- 7104 Oct, [facility] [place] [facility] [address] [id number] [place] [address]- 7787 Oct, [facility] [place] [facility] [address] [facility] [id number] [place] [address]- 2710 Apr, IMMUNIZATIONS No Known Immunizations SOCIAL HISTORY [...]
--- OUTSIDE RECORDS SUMMARY | 2018-04-14 06:13 | XMS REPORT ---
Author Author PREETHI YIN Organization [facility] Address [address] [place] [address] Care Team Providers Care Assistant Business Manager Name Role Phone PREETHI YIN Unavailable PROBLEMS Type Condition ICD9-CM Code YOO32-JS Code Onset Dates Condition Status SNOMED Code Problem Chronic airway obstruction, not elsewhere classified 496 Active 48172455 Problem Unspecified essential hypertension 401.9 Active 45302194 Problem Occlusion and stenosis of carotid artery without mention of cerebral infarction 433.10 Active 457805130810447 Problem Anxiety disorder, unspecified F41.9 Active 655482763 Problem Chronic pain syndrome G89.4 Active 391332100 Problem Anxiety state, unspecified 300.00 Active 920718561 Problem Chronic pain syndrome 338.4 Active 180604570 Problem Bilateral primary osteoarthritis of knee M17.0 Active 817485824 Problem Other and unspecified hyperlipidemia 272.4 Active 22068340 Problem Need for prophylactic vaccination and inoculation, Influenza V04.81 Active 447816802 Problem Headache 784.0 Active 41356400 Problem Encounter for long-term (current) use of other medications V58.69 Active 342765923 Problem Syncope and collapse 780.2 Active 665556477 Problem Personal history of tobacco use, presenting hazards to health V15.82 Active 6808128274287 Problem Cervicalgia 723.1 Active 42114049 ALLERGIES No Information ENCOUNTERS Encounter Location Date Diagnosis [facility] [id number] [address] Jul, Chronic pain syndrome G89.4 [facility] [id number] [place] [address] 29375- 2676 Jul, Pre-op evaluation Z01.818 [facility] [address], [place] [address] Jul, [facility] [id number] [place] [address] 16822- 0671 Jun, Anxiety disorder, unspecified F41.9 and Chronic pain syndrome G89.4 [facility] [id number] [place] [address] 88763- 2986 Jun, [facility] [id number] [place] [address] 05914- 8936 Jun, [facility] [id number] [place] [address] 77178- 8567 Jun, [facility] [id number] [place] [address] 55477- 1472 Jun, [facility] [id number] [place] [address] 78861- 1091 Jun, Lumbar neuritis M54.16 [facility] [id number] [place] [address] 84982- 6918 May, [facility] [id number] [place] [address] 17767- 4455 May, [facility] [id number] [place] [address] 97464- 6259 May, Encounter for therapeutic drug level monitoring Z51.81 ; Encounter for immunization Z23 and Chronic pain syndrome G89.4 [facility] [address], [place] [address] May, Lumbar neuritis M54.16 [facility] [id number] [place] [address] 20303- 1929 May, [facility] [id number] [place] [address] 95062- 6378 Apr, Lumbar neuritis M54.16 [facility] [id number] [place] [address] 24257- 8016 Apr, [facility] [id number] [place] [address] 25792- 3166 Mar, Lumbar neuritis M54.16 [facility] [id number] [place] [address] 65908- 5536 Mar, [facility] [id number] [place] [address] 70146 2546 Mar, [facility] [id number] [place] [address] 90079- 6506 Feb, Lumbar neuritis M54.16 [facility] [id number] [place] [address] 03216 2546 Feb, Lumbar neuritis M54.16 [facility] [id number] [place] [address] 58074- 7936 Feb, [facility] [id number] [place] [address] 34977- 2546 Feb, [facility] [id number] [place] [address] 17664- 4896 25 Jan, 2017 [facility] [id number] [place] [address] 37338 2542 22 Jan, 2017 Peroneal tendonitis of left lower extremity M76.72 [facility] [id number] [place] [address] 29631- 8216 20 Jan, 2017 Lumbar neuritis M54.16 [facility] [id number] [place] [address] 68154- 6496 Jan, [facility] [id number] [place] [address] 35252 2546 Dec, Lumbar neuritis M54.16 [facility] [id number] [place] [address] 27734 2546 Dec, [facility] [id number] [place] [address] 97683 2546 Dec, Pain in right knee M25.561 ; Lumbar neuritis M54.16 and Cervical neuritis M54.12 [facility] [id number] [place] [address] 20027- 6913 Dec, [facility] [id number] [place] [address] 18332- 1388 Dec, [facility] [id number] [place] [address] 99909- 6350 Nov, Lumbar neuritis M54.16 [facility] [id number] [place] [address] 80383- 6317 Nov, Bilateral primary osteoarthritis of knee M17.0 [facility] [id number] [place] [address] 51754- 1324 Nov, [facility] [id number] [place] [address] 14714- 3792 Nov, Bronchitis J40 and Plantar fasciitis M72.2 [facility] [id number] [place] [address] 43686- 0452 Nov, [facility] [id number] [place] [address] 45222- 9825 Oct, Lumbar neuritis M54.16 [facility] [id number] [place] [address] 50177- 7067 Oct, Lumbar neuritis M54.16 [facility] [id number] [place] [address] 90080- 5021 Oct, Lumbar neuritis M54.16 [facility] [id number] [place] [address] 31072- 3511 Oct, Plantar fasciitis M72.2 and Pain in right knee M25.561 [facility] [id number] [place] [address] 39893- 9036 Oct, Lumbar neuritis M54.16 ; Cervical neuritis M54.12 ; Other specified abdominal hernia without obstruction or gangrene K45.8 ; Heel spur, left M77.32 ; Plantar fasciitis M72.2 and Pain in right knee M25.561 [facility] [id number] [place] [address]- 6449 13 Oct, 2016 [facility] [address] [id number] [place] [address]- 3598 14 Aug, 2014 [facility] [place] [facility] [address] [id number] [place] [address]- 2427 13 Aug, 2014 [facility] [place] [facility] [address] [id number] [place] [address]- 0936 Apr, [facility] [place] [facility] [address] [id number] [place] [address]- 7923 Apr, [facility] [place] [facility] [address] [id number] [place] [address]- 8787 Mar, [facility] [place] [facility] [address] [id number] [place] [address]- 2755 Mar, [facility] [place] [facility] [address] [id number] [place] [address]- 9470 Feb, [facility] [place] [facility] [address] [id number] [place] [address]- 9258 Feb, [facility] [place] [facility] [address] [id number] [place] [address]- 9941 Feb, [facility] [place] [facility] [address] [facility] [id number] [place] [address]- 3494 Feb, [facility] [place] [facility] [address] [id number] [place] [address]- 8026 Feb, [facility] [place] [facility] [address] [id number] [place] [address]- 0163 Feb, [facility] [place] [facility] [address] [id number] [place] [address]- 4384 Feb, [facility] [place] [facility] [address] [id number] [place] [address]- 7701 Feb, [facility] [place] [facility] [address] [id number] [place] [address]- 1668 Jan, [facility] [place] [facility] [address] [id number] [place] [address]- 1117 30 Sep, 2013 [facility] [place] [facility] [address] [id number] [place] [address] 2546 30 Sep, 2013 [facility] [place] [facility] [address] [id number] [place] [address] 2549 30 Sep, 2013 [facility] [place] [facility] [address] [id number] [place] [address] 2546 30 Sep, 2013 [facility] [place] [facility] [address] [id number] [place] [address] 2544 30 Sep, 2013 [facility] [place] [facility] [address] [id number] [place] [address] 2540 26 Sep, 2013 [facility] [place] [facility] [address] [id number] [place] [address]- 8156 26 Sep, 2013 [facility] [place] [facility] [address] [id number] [place] [address]- 0218 22 Sep, 2013 [facility] [place] [facility] [address] [id number] [place] [address] 2540 22 Sep, 2013 [facility] [place] [facility] [address] [id number] [place] [address]- 2544 16 Sep, 2013 [facility] [place] [facility] [address] [id number] [place] [address] 2541 16 Sep, 2013 [facility] [place] [facility] [address] [id number] [place] [address] 2540 16 Sep, 2013 [facility] [place] [facility] [address] [id number] [place] [address] 2546 16 Sep, 2013 [facility] [place] [facility] [address] [id number] [place] [address]- 2546 12 Sep, 2013 [facility] [place] [facility] [address] [id number] [place] [address]- 2540 12 Sep, 2013 [facility] [place] [facility] [address] [id number] [place] [address]- 3555 Jan, 2013 [facility] [place] [facility] [address] [id number] [place] [address]- 2496 Jan, 2013 [facility] [place] [facility] [address] [id number] [place] [address]- 1991 Jan, 2013 [facility] [place] [facility] [address] [id number] [place] [address]- 0152 Jan, 2013 [facility] [place] [facility] [address] [id number] [place] [address]- 7782 Jan, 2013 [facility] [place] [facility] [address] [id number] [place] [address]- 5699 Jan, 2013 [facility] [place] [facility] [address] [id number] [place] [address]- 6747 Jan, 2013 [facility] [place] [facility] [address] [id number] [place] [address]- 1875 Jan, 2013 [facility] [place] [facility] [address] [id number] [place] [address]- 3653 Dec, [facility] [place] [facility] [address] [id number] [place] [address]- 1271 Dec, [facility] [place] [facility] [address] [id number] [place] [address]- 9807 Dec, [facility] [place] [facility] [address] [id number] [place] [address]- 3273 Dec, [facility] [place] [facility] [address] [id number] [place] [address]- 3301 Dec, [facility] [place] [facility] [address] [id number] [place] [address]- 5893 Dec, [facility] [place] [facility] [address] [id number] [place] [address]- 3951 Dec, [facility] [place] [facility] [address] [id number] [place] [address]- 9810 Dec, [facility] [place] [facility] [address] [id number] [place] [address]- 3310 Dec, [facility] [place] [facility] [address] [id number] [place] [address]- 7087 Dec, [facility] [place] [facility] [address] [id number] [place] [address]- 1146 Dec, [facility] [place] [facility] [address] [id number] [place] [address]- 2715 Dec, [facility] [place] [facility] [address] [id number] [place] [address]- 9546 Dec, [facility] [place] [facility] [address] [id number] [place] [address]- 4626 Dec, [facility] [place] [facility] [address] [id number] [place] [address]- 5992 Dec, [facility] [place] [facility] [address] [id number] [place] [address]- 4614 Dec, [facility] [place] [facility] [address] [id number] [place] [address]- 0187 Dec, [facility] [place] [facility] [address] [id number] [place] [address]- 3668 Dec, [facility] [place] [facility] [address] [id number] [place] [address]- 8578 Dec, [facility] [place] [facility] [address] [id number] [place] [address]- 2687 Nov, [facility] [place] [facility] [address] [id number] [place] [address]- 5213 Nov, [facility] [place] [facility] [address] [id number] [place] [address]- 3860 Nov, [facility] [place] [facility] [address] [id number] [place] [address]- 6511 Nov, [facility] [place] [facility] [address] [id number] [place] [address]- 5297 Nov, [facility] [address] [facility] [id number] [address]- 1353 Nov, [facility] [address] [facility] [id number] [address]- 8174 Nov, [facility] [address] [facility] [id number] [address]- 7647 Nov, [facility] [address] [facility] [id number] [address]- 5258 Nov, [facility] [address] [facility] [id number], [place] [address]- 3088 Nov, [facility] [address] [facility] [id number] [address]- 7905 Nov, [facility] [address], [place] [address]- 2960 Oct, [facility] [address], [place] [address]- 6533 Oct, [facility] [address] [facility] [id number] [address]- 5448 Oct, [facility] [address] [facility] [id number], [place] [address]- 1926 Apr, IMMUNIZATIONS No Known Immunizations SOCIAL HISTORY Never Assessed REASON FOR VISIT Controlled Med Refill PLAN OF CARE VITAL SIGNS MEDICATIONS Medication Instructions Dosage Frequency Start Date End Date Duration Status Hydrocodone-Acetaminophen 10-325 MG Orally every 8 hours, PRN take 1 Tablet by Po route 2 times per day PRN MUST LAST 30 DAYS Oct, 28 days Active morphine 60 mg by oral route 1 in am take 1 capsule by Oral route 1 time per day PRN MUST LAST 30 DAYS Jan, 28 days Active Morphine Sulfate ER 30 MG Orally at bed time 1 tablet Oct, 28 days Active RESULTS No Results PROCEDURES [...]
--- OUTSIDE RECORDS SUMMARY | 2018-04-14 06:14 | XMS REPORT ---
Author Author PREETHI YIN Organization [facility] Address [address] [place] [address] Care Team Providers Care Burial Needs Salesperson Name Role Phone PREETHI YIN Unavailable PROBLEMS Type Condition ICD9-CM Code DJS85-HJ Code Onset Dates Condition Status SNOMED Code Problem Chronic airway obstruction, not elsewhere classified 496 Active 81735819 Problem Unspecified essential hypertension 401.9 Active 15056550 Problem Occlusion and stenosis of carotid artery without mention of cerebral infarction 433.10 Active 331059156182423 Problem Anxiety disorder, unspecified F41.9 Active 258403047 Problem Chronic pain syndrome G89.4 Active 755608534 Problem Anxiety state, unspecified 300.00 Active 388147975 Problem Chronic pain syndrome 338.4 Active 242691024 Problem Bilateral primary osteoarthritis of knee M17.0 Active 822205484 Problem Other and unspecified hyperlipidemia 272.4 Active 44247750 Problem Need for prophylactic vaccination and inoculation, Influenza V04.81 Active 783502745 Problem Headache 784.0 Active 34949954 Problem Encounter for long-term (current) use of other medications V58.69 Active 989533387 Problem Syncope and collapse 780.2 Active 534669229 Problem Personal history of tobacco use, presenting hazards to health V15.82 Active 5768897698240 Problem Cervicalgia 723.1 Active 30990828 ALLERGIES No Information ENCOUNTERS Encounter Location Date Diagnosis [facility] [id number] [address] Jul, Chronic pain syndrome G89.4 [facility] [id number] [place] [address] 18563- 2681 Jul, Pre-op evaluation Z01.818 [facility] [id number] [address] Jul, [facility] [id number] [place] [address] 86390- 0141 Jun, Anxiety disorder, unspecified F41.9 and Chronic pain syndrome G89.4 [facility] [id number] [place] [address] 59947- 5446 Jun, [facility] [id number] [place] [address] 48247- 6936 Jun, [facility] [id number] [place] [address] 38589- 6783 Jun, [facility] [id number] [place] [address] 61415- 9673 Jun, [facility] [id number] [place] [address] 61373- 0794 Jun, Lumbar neuritis M54.16 [facility] [id number] [place] [address] 52047- 0420 May, [facility] [id number] [place] [address] 18152- 9286 May, [facility] [id number] [place] [address] 06007- 4674 May, Encounter for therapeutic drug level monitoring Z51.81 ; Encounter for immunization Z23 and Chronic pain syndrome G89.4 [facility] [address] [address] May, Lumbar neuritis M54.16 [facility] [id number] [place] [address] 22973- 3247 May, [facility] [id number] [place] [address] 96397- 9148 Apr, Lumbar neuritis M54.16 [facility] [id number] [place] [address] 49469- 1636 Apr, [facility] [id number] [place] [address] 55379- 6999 Mar, Lumbar neuritis M54.16 [facility] [id number] [place] [address] 95615- 5146 Mar, [facility] [id number] [place] [address] 64855 2546 Mar, [facility] [id number] [place] [address] 13538- 2276 Feb, Lumbar neuritis M54.16 [facility] [id number] [place] [address] 19700 2546 Feb, Lumbar neuritis M54.16 [facility] [id number] [place] [address] 44937- 4746 Feb, [facility] [id number] [place] [address] 86173- 2546 Feb, [facility] [id number] [place] [address] 39299- 5526 25 Jan, 2017 [facility] [id number] [place] [address] 25144 2542 22 Jan, 2017 Peroneal tendonitis of left lower extremity M76.72 [facility] [id number] [place] [address] 65104- 3176 20 Jan, 2017 Lumbar neuritis M54.16 [facility] [id number] [place] [address] 58318- 0686 Jan, [facility] [id number] [place] [address] 25689 2546 Dec, Lumbar neuritis M54.16 [facility] [id number] [place] [address] 08851 2546 Dec, [facility] [id number] [place] [address] 65855 2546 Dec, Pain in right knee M25.561 ; Lumbar neuritis M54.16 and Cervical neuritis M54.12 [facility] [id number] [place] [address] 80446- 4592 Dec, [facility] [id number] [place] [address] 81328- 3111 Dec, [facility] [id number] [place] [address] 65844- 5443 Nov, Lumbar neuritis M54.16 [facility] [id number] [place] [address] 04294- 9328 Nov, Bilateral primary osteoarthritis of knee M17.0 [facility] [id number] [place] [address] 87987- 3892 Nov, [facility] [id number] [place] [address] 40902- 1020 Nov, Bronchitis J40 and Plantar fasciitis M72.2 [facility] [id number] [place] [address] 49080- 3275 Nov, [facility] [id number] [place] [address] 47616- 8376 Oct, Lumbar neuritis M54.16 [facility] [id number] [place] [address] 63740- 7019 Oct, Lumbar neuritis M54.16 [facility] [id number] [place] [address] 36104- 0571 Oct, Lumbar neuritis M54.16 [facility] [id number] [place] [address] 79035- 6695 Oct, Plantar fasciitis M72.2 and Pain in right knee M25.561 [facility] [id number] [place] [address] 31927- 6428 Oct, Lumbar neuritis M54.16 ; Cervical neuritis M54.12 ; Other specified abdominal hernia without obstruction or gangrene K45.8 ; Heel spur, left M77.32 ; Plantar fasciitis M72.2 and Pain in right knee M25.561 [facility] [id number] [place] [address]- 6365 13 Oct, 2016 [facility] [place] [facility] [address] [id number] [place] [address]- 7950 14 Aug, 2014 [facility] [place] [facility] [address] [id number] [place] [address]- 3181 13 Aug, 2014 [facility] [place] [facility] [address] [id number] [place] [address]- 5975 Apr, [facility] [place] [facility] [address] [id number] [place] [address]- 5037 Apr, [facility] [place] [facility] [address] [id number] [place] [address]- 3095 Mar, [facility] [place] [facility] [address] [id number] [place] [address]- 8615 Mar, [facility] [place] [facility] [address] [id number] [place] [address]- 6523 Feb, [facility] [place] [facility] [address] [id number] [place] [address]- 3539 Feb, [facility] [place] [facility] [address] [id number] [place] [address]- 8929 Feb, [facility] [place] [facility] [address] [facility] [id number] [place] [address]- 1812 Feb, [facility] [place] [facility] [address] [id number] [place] [address]- 2743 Feb, [facility] [place] [facility] [address] [id number] [place] [address]- 0907 Feb, [facility] [place] [facility] [address] [id number] [place] [address]- 2916 Feb, [facility] [place] [facility] [address] [id number] [place] [address]- 5464 Feb, [facility] [place] [facility] [address] [id number] [place] [address]- 7372 Jan, [facility] [place] [facility] [address] [id number] [place] [address]- 3626 30 Sep, 2013 [facility] [place] [facility] [address] [id number] [place] [address] 2546 30 Sep, 2013 [facility] [place] [facility] [address] [id number] [place] [address] 2543 30 Sep, 2013 [facility] [place] [facility] [address] [id number] [place] [address] 2546 30 Sep, 2013 [facility] [place] [facility] [address] [id number] [place] [address] 2547 30 Sep, 2013 [facility] [place] [facility] [address] [id number] [place] [address] 2544 26 Sep, 2013 [facility] [place] [facility] [address] [id number] [place] [address]- 3167 26 Sep, 2013 [facility] [place] [facility] [address] [id number] [place] [address]- 8165 22 Sep, 2013 [facility] [place] [facility] [address] [id number] [place] [address] 2544 22 Sep, 2013 [facility] [place] [facility] [address] [id number] [place] [address]- 2547 16 Sep, 2013 [facility] [place] [facility] [address] [id number] [place] [address] 2540 16 Sep, 2013 [facility] [place] [facility] [address] [id number] [place] [address] 2540 16 Sep, 2013 [facility] [place] [facility] [address] [id number] [place] [address] 2546 16 Sep, 2013 [facility] [place] [facility] [address] [id number] [place] [address]- 2546 12 Sep, 2013 [facility] [place] [facility] [address] [id number] [place] [address]- 2542 12 Sep, 2013 [facility] [place] [facility] [address] [id number] [place] [address]- 6140 Jan, 2013 [facility] [place] [facility] [address] [id number] [place] [address]- 6262 Jan, 2013 [facility] [place] [facility] [address] [id number] [place] [address]- 5926 Jan, 2013 [facility] [place] [facility] [address] [id number] [place] [address]- 4027 Jan, 2013 [facility] [place] [facility] [address] [id number] [place] [address]- 1897 Jan, 2013 [facility] [place] [facility] [address] [id number] [place] [address]- 3902 Jan, 2013 [facility] [place] [facility] [address] [id number] [place] [address]- 6408 Jan, 2013 [facility] [place] [facility] [address] [id number] [place] [address]- 0991 Jan, 2013 [facility] [place] [facility] [address] [id number] [place] [address]- 4060 Dec, [facility] [place] [facility] [address] [id number] [place] [address]- 0275 Dec, [facility] [place] [facility] [address] [id number] [place] [address]- 8258 Dec, [facility] [place] [facility] [address] [id number] [place] [address]- 1444 Dec, [facility] [place] [facility] [address] [id number] [place] [address]- 7272 Dec, [facility] [place] [facility] [address] [id number] [place] [address]- 2405 Dec, [facility] [place] [facility] [address] [id number] [place] [address]- 8191 Dec, [facility] [place] [facility] [address] [id number] [place] [address]- 1355 Dec, [facility] [place] [facility] [address] [id number] [place] [address]- 5545 Dec, [facility] [place] [facility] [address] [id number] [place] [address]- 5629 Dec, [facility] [place] [facility] [address] [id number] [place] [address]- 3456 Dec, [facility] [place] [facility] [address] [id number] [place] [address]- 4981 Dec, [facility] [place] [facility] [address] [id number] [place] [address]- 5767 Dec, [facility] [place] [facility] [address] [id number] [place] [address]- 5294 Dec, [facility] [place] [facility] [address] [id number] [place] [address]- 1414 Dec, [facility] [place] [facility] [address] [id number] [place] [address]- 6756 Dec, [facility] [place] [facility] [address] [id number] [place] [address]- 0983 Dec, [facility] [place] [facility] [address] [id number] [place] [address]- 4832 Dec, [facility] [place] [facility] [address] [id number] [place] [address]- 3550 Dec, [facility] [place] [facility] [address] [id number] [place] [address]- 7915 Nov, [facility] [place] [facility] [address] [id number] [place] [address]- 8449 Nov, [facility] [place] [facility] [address] [id number] [place] [address]- 2855 Nov, [facility] [place] [facility] [address] [id number] [place] [address]- 6529 Nov, [facility] [place] [facility] [address] [id number] [place] [address]- 4618 Nov, [facility] [address] [facility] [id number], [place] [address]- 5867 Nov, [facility] [address] [facility] [id number], [place] [address]- 9615 Nov, [facility] [address] [facility] [id number], [place] [address]- 5953 Nov, [facility] [address] [facility] [id number], [place] [address]- 1297 Nov, [facility] [address] [facility] [id number], [place] [address]- 6646 Nov, [facility] [address] [facility] [id number], [place] [address]- 5235 Nov, [facility] [address] [facility] [id number], [place] [address]- 2861 Oct, [facility] [address] [facility] [id number], [place] [address]- 9934 Oct, [facility] [address] [facility] [id number], [place] [address]- 1445 Oct, [facility] [address] [facility] [id number], [place] [address]- 2866 Apr, IMMUNIZATIONS No Known Immunizations SOCIAL HISTORY [...]
--- OUTSIDE RECORDS SUMMARY | 2018-04-14 06:15 | XMS REPORT ---
Author Author PREETHI YIN Organization [facility] Address [address] [place] [address] Care Team Providers Care Microbiology Teacher Name Role Phone PREETHI YIN Unavailable PROBLEMS Type Condition ICD9-CM Code RUL89-HE Code Onset Dates Condition Status SNOMED Code Problem Chronic airway obstruction, not elsewhere classified 496 Active 59275137 Problem Unspecified essential hypertension 401.9 Active 65850416 Problem Occlusion and stenosis of carotid artery without mention of cerebral infarction 433.10 Active [id number] Problem Anxiety disorder, unspecified F41.9 Active 189923073 Problem Chronic pain syndrome G89.4 Active 443224212 Problem Anxiety state, unspecified 300.00 Active 704534169 Problem Chronic pain syndrome 338.4 Active 189797671 Problem Bilateral primary osteoarthritis of knee M17.0 Active 996087018 Problem Other and unspecified hyperlipidemia 272.4 Active 97811081 Problem Need for prophylactic vaccination and inoculation, Influenza V04.81 Active 405050890 Problem Headache 784.0 Active 91477173 Problem Encounter for long-term (current) use of other medications V58.69 Active 586154369 Problem Syncope and collapse 780.2 Active 180315667 Problem Personal history of tobacco use, presenting hazards to health V15.82 Active 3263016265762 Problem Cervicalgia 723.1 Active 09875057 ALLERGIES No Information ENCOUNTERS Encounter Location Date Diagnosis [facility] [address] [facility] [id number] [address] Aug, [facility] [id number] [place] [address] 89216- 1852 Aug, [facility] [address] [address] Aug, [facility] [id number] [address] Aug, Incisional infection, initial encounter T81.4XXA [facility] [id number] [place] [address] 76866- 3604 Aug, [facility] [id number] [place] [address] 57606- 3826 Jul, [facility] [id number] [place] [address] 01915- 0556 Jul, [facility] [id number] [place] [address] 70875- 3021 Jul, Chronic pain syndrome G89.4 [facility] [id number] [place] [address] 61592- 9636 Jul, Pre-op evaluation Z01.818 [facility] [id number] [place] [address] 07424- 3649 Jul, [facility] [id number] [place] [address] 38834- 5146 Jun, Anxiety disorder, unspecified F41.9 and Chronic pain syndrome G89.4 [facility] [id number] [place] [address] 94567- 8885 Jun, [facility] [id number] [place] [address] 40762- 4180 Jun, [facility] [id number] [place] [address] 22772- 9302 Jun, [facility] [id number] [place] [address] 79950- 9045 Jun, [facility] [id number] [place] [address] 57870- 1258 Jun, Lumbar neuritis M54.16 [facility] [id number] [place] [address] 90149- 7721 May, [facility] [id number] [place] [address] 59043- 9876 May, [facility] [address] [address] 8718 May, Encounter for therapeutic drug level monitoring Z51.81 ; Encounter for immunization Z23 and Chronic pain syndrome G89.4 [facility] [address] [address] 7929 May, Lumbar neuritis M54.16 [facility] [id number] [place] [address] 19288- 3374 May, [facility] [id number] [place] [address] 79453- 1113 Apr, Lumbar neuritis M54.16 [facility] [id number] [place] [address] 69524- 4119 Apr, [facility] [id number] [place] [address] 13848- 8172 Mar, Lumbar neuritis M54.16 [facility] [id number] [place] [address] 85476- 2286 Mar, [facility] [id number] [place] [address] 55457- 9496 Mar, [facility] [id number] [place] [address] 88222- 4995 Feb, Lumbar neuritis M54.16 [facility] [id number] [place] [address] 79823- 3334 Feb, Lumbar neuritis M54.16 [facility] [id number] [place] [address] 72644- 6144 Feb, [facility] [id number] [place] [address] 85349- 1745 Feb, [facility] [id number] [place] [address] 56367- 4128 Jan, [facility] [id number] [place] [address] 76064- 4466 22 Jan, 2017 Peroneal tendonitis of left lower extremity M76.72 [facility] [id number] [place] [address] 78522- 2226 20 Jan, 2017 Lumbar neuritis M54.16 [facility] [id number] [place] [address] 42550- 6795 12 Jan, 2017 [facility] [address] 36378- 4635 2016 Lumbar neuritis M54.16 [facility] [id number] [place] [address] 72707- 0508 Dec, [facility] [address] 33977- 1786 18 Dec, 2016 Pain in right knee M25.561 ; Lumbar neuritis M54.16 and Cervical neuritis M54.12 [facility] [id number] [place] [address] 05929- 0315 Dec, [facility] [id number] [place] [address] 05708- 0229 Dec, [facility] [address] 37195- 3883 Nov, Lumbar neuritis M54.16 [facility] [id number] [place] [address] 00998- 7166 Nov, Bilateral primary osteoarthritis of knee M17.0 [facility] [id number] [place] [address] 42161- 6050 Nov, [facility] [id number] [place] [address] 28326- 8687 Nov, Bronchitis J40 and Plantar fasciitis M72.2 [facility] [id number] [place] [address] 84186- 3117 Nov, [facility] [id number] [place] [address] 32806- 2099 Oct, Lumbar neuritis M54.16 [facility] [id number] [place] [address] 69446- 8079 30 Oct, 2016 Lumbar neuritis M54.16 [facility] [id number] [place] [address] 20794- 6448 28 Oct, 2016 Lumbar neuritis M54.16 [facility] [id number] [place] [address] 03637- 3763 Oct, Plantar fasciitis M72.2 and Pain in right knee M25.561 [facility] [id number] [place] [address] 40901- 3369 16 Oct, 2016 Lumbar neuritis M54.16 ; Cervical neuritis M54.12 ; Other specified abdominal hernia without obstruction or gangrene K45.8 ; Heel spur, left M77.32 ; Plantar fasciitis M72.2 and Pain in right knee M25.561 [facility] [id number] [place] [address] 92077- 6620 13 Oct, 2016 [facility] [id number] [place] [address] 80481- 4352 Aug, [facility] [id number] [place] [address] 54172- 5552 Aug, [facility] [id number] [place] [address] 92127- 8627 Apr, [facility] [id number] [place] [address] 76640- 9300 Apr, [facility] [id number] [place] [address] 52182- 1201 Mar, [facility] [id number] [place] [address] 51204- 1314 Mar, [facility] [id number] [place] [address] 56639- 1808 Feb, [facility] [id number] [place] [address] 56648- 1298 10 Feb, 2013 [facility] [place] [facility] [address] [id number] [place] [address]- 5070 Feb, 2013 [facility] [place] [facility] [address] [id number] [place] [address]- 8748 Feb, 2013 [facility] [place] [facility] [address] [id number] [place] [address]- 1893 Feb, 2013 [facility] [place] [facility] [address] [id number] [place] [address]- 8788 Feb, 2013 [facility] [place] [facility] [address] [id number] [place] [address]- 3383 Feb, 2013 [facility] [place] [facility] [address] [id number] [place] [address]- 6260 Feb, 2013 [facility] [place] [facility] [address] [id number], [place] [address]- 9928 30 Sep, 2013 [facility] [place] [facility] [address] [id number] [place] [address]- 3888 30 Sep, 2013 [facility] [place] [facility] [address] [id number] [place] [address]- 254 30 Sep, 2013 [facility] [place] [facility] [address] [id number] [place] [address]- 2543 30 Sep, 2013 [facility] [place] [facility] [address] [id number], [place] [address]- 254 30 Sep, 2013 [facility] [place] [facility] [address] [id number], [place] [address]- 2543 30 Sep, 2013 [facility] [place] [facility] [address] [id number] [place] [address] 2542 26 Sep, 2013 [facility] [place] [facility] [address] [id number] [place] [address]- 2540 26 Sep, 2013 [facility] [place] [facility] [address] [id number] [place] [address]- 5544 22 Sep, 2013 [facility] [place] [facility] [address] [id number] [place] [address]- 3968 22 Sep, 2013 [facility] [place] [facility] [address] [id number] [place] [address]- 1506 16 Sep, 2013 [facility] [place] [facility] [address] [id number] [place] [address]- 2546 16 Sep, 2013 [facility] [place] [facility] [address] [id number] [place] [address] 2546 16 Sep, 2013 [facility] [place] [facility] [address] [id number] [place] [address]- 2542 16 Sep, 2013 [facility] [place] [facility] [address] [id number] [place] [address]- 1708 12 Jan, 2013 [facility] [place] [facility] [address] [id number] [place] [address]- 1213 12 Sep, 2013 [facility] [place] [facility] [address] [id number] [place] [address]- 1315 12 Jan, 2013 [facility] [place] [facility] [address] [id number] [place] [address]- 8573 12 Sep, 2013 [facility] [place] [facility] [address] [id number] [place] [address]- 2540 09 Sep, 2013 [facility] [place] [facility] [address] [id number] [place] [address]- 6721 09 Sep, 2013 [facility] [place] [facility] [address] [id number] [place] [address]- 2549 09 Sep, 2013 [facility] [place] [facility] [address] [id number] [place] [address]- 254 09 Sep, 2013 [facility] [place] [facility] [address] [id number] [place] [address]- 254 05 Jan, 2013 [facility] [place] [facility] [address] [id number] [place] [address]- 2549 05 Jan, 2013 [facility] [place] [facility] [address] [id number] [place] [address]- 2600 Dec, [facility] [place] [facility] [address] [id number] [place] [address]- 8900 Dec, [facility] [place] [facility] [address] [id number] [place] [address]- 5769 Dec, [facility] [place] [facility] [address] [id number] [place] [address]- 6307 Dec, [facility] [place] [facility] [address] [id number] [place] [address]- 6379 Dec, [facility] [place] [facility] [address] [id number] [place] [address]- 0543 Dec, [facility] [place] [facility] [address] [id number] [place] [address]- 5112 Dec, [facility] [place] [facility] [address] [id number] [place] [address]- 2918 Dec, [facility] [place] [facility] [address] [id number] [place] [address]- 9443 Dec, [facility] [place] [facility] [address] [id number] [place] [address]- 6983 Dec, [facility] [place] [facility] [address] [id number] [place] [address]- 1063 Dec, [facility] [place] [facility] [address] [id number] [place] [address]- 2800 Dec, [facility] [place] [facility] [address] [id number] [place] [address]- 6825 Dec, [facility] [place] [facility] [address] [id number] [place] [address]- 0409 Dec, [facility] [place] [facility] [address] [id number] [place] [address]- 5483 Dec, [facility] [place] [facility] [address] [id number] [place] [address]- 5134 Dec, [facility] [place] [facility] [address] [id number] [place] [address]- 8293 Dec, [facility] [place] [facility] [address] [id number] [place] [address]- 5938 Dec, [facility] [place] [facility] [address] [id number] [place] [address]- 7013 Dec, [facility] [place] [facility] [address] [id number] [place] [address]- 2731 Nov, [facility] [place] [facility] [address] [id number] [place] [address]- 6032 Nov, [facility] [place] [facility] [address] [id number] [place] [address]- 7927 Nov, [facility] [place] [facility] [address] [id number] [place] [address]- 8736 Nov, [facility] [place] [facility] [address] [id number] [place] [address]- 8791 Nov, [facility] [place] [facility] [address] [id number] [place] [address]- 3231 Nov, [facility] [place] [facility] [address] [id number] [place] [address]- 9734 Nov, [facility] [place] [facility] [address] [id number] [place] [address]- 5785 Nov, [facility] [place] [facility] [address] [id number] [place] [address]- 8567 Nov, [facility] [place] [facility] [address] [id number] [place] [address]- 6113 Nov, [facility] [place] [facility] [address] [id number] [place] [address]- 4048 Nov, [facility] [place] [facility] [address] [id number] [place] [address]- 3604 Oct, [facility] [place] [facility] [address] [id number] [place] [address]- 0013 Oct, [facility] [place] [facility] [address] [facility] [id number] [place] [address]- 5890 Oct, [facility] [address] [facility] [id number] [place] [address] 7505 Apr, IMMUNIZATIONS No Known Immunizations SOCIAL HISTORY Never Assessed REASON FOR VISIT Controlled Med Refill 02/06/17 PLAN OF CARE VITAL SIGNS MEDICATIONS Medication Instructions Dosage Frequency Start Date End Date Duration Status Morphine Sulfate ER 60 MG Orally Once a day 1 capsule 24h Jan, 28 days Active Morphine Sulfate ER 30 MG Orally at bed time 1 tablet Jan, 28 days Active Hydrocodone-Acetaminophen 10-325 MG Orally every 8 hours, PRN 1 tablet as needed Jan, 28 days Active RESULTS No Results [...]
--- OUTSIDE RECORDS SUMMARY | 2018-04-14 06:15 | XMS REPORT ---
Author Author PREETHI YIN Organization [facility] Address [address] [place] [address] Care Team Providers Care Actimize Architect Name Role Phone PREETHI YIN Unavailable PROBLEMS Type Condition ICD9-CM Code SKH92-MC Code Onset Dates Condition Status SNOMED Code Problem Cervicalgia 723.1 Active 14577066 Problem Occlusion and stenosis of carotid artery without mention of cerebral infarction 433.10 Active 855673002950969 Problem Chronic airway obstruction, not elsewhere classified 496 Active 17085789 Problem Chronic pain syndrome G89.4 Active 380047943 Problem Bilateral primary osteoarthritis of knee M17.0 Active 983267899 Problem Chronic pain syndrome 338.4 Active 683044170 Problem Unspecified essential hypertension 401.9 Active 65637344 Problem Other and unspecified hyperlipidemia 272.4 Active 08925754 Problem Anxiety state, unspecified 300.00 Active 411082934 Problem Personal history of tobacco use, presenting hazards to health V15.82 Active 0820255888705 Problem Need for prophylactic vaccination and inoculation, Influenza V04.81 Active 327019461 Problem Headache 784.0 Active 47751304 Problem Encounter for long-term (current) use of other medications V58.69 Active 674486096 Problem Syncope and collapse 780.2 Active 523077629 ALLERGIES No Information ENCOUNTERS Encounter Location Date Diagnosis [place] [id number], [place] [address] Jul, [place] [id number] [place] [address] 96106- 6369 Jul, Pre-op evaluation Z01.818 [place] [id number] [place] [address] 38331- 4098 Jul, [place] [id number], [place] [address] Jun, [place] [address] [place] [id number] [place] [address] 70217- 6986 Jun, [facility] [address] [place] [id number] [place] [address] 57802- 3643 Jun, [facility] [address] [id number] [place] [address] 99469- 1392 Jun, [facility] [id number] [place] [address] 45999- 4432 Jun, [facility] [address] [place] [id number] [place] [address] 43500- 2825 Jun, Lumbar neuritis M54.16 [facility] [address] [place] [id number] [place] [address] 92770- 3517 May, [facility] [id number] [place] [address] 90571- 5608 May, [facility] [address] [id number] [place] [address] 12497- 6894 May, Encounter for therapeutic drug level monitoring Z51.81 ; Encounter for immunization Z23 and Chronic pain syndrome G89.4 [facility] [address] [place] [id number] [place] [address] 74938- 6640 May, Lumbar neuritis M54.16 [facility] [address] [place] [id number] [place] [address] 05518- 7873 May, [facility] [address] [place] [id number] [place] [address] 00621- 5437 Apr, Lumbar neuritis M54.16 [facility] [address] [place] [id number] [place] [address] 52847- 5468 Apr, [facility] [address] [place] [id number] [place] [address] 43060- 8207 Mar, Lumbar neuritis M54.16 [facility] [id number] [place] [address] 74831- 2782 Mar, [facility] [id number] [place] [address] 43746- 5944 Mar, [facility] [address] [place] [address] [id number] [place] [address] 07633- 7667 Feb, Lumbar neuritis M54.16 [facility] [address] [place] [address] [id number] [place] [address] 99706- 8868 18 Feb, 2017 Lumbar neuritis M54.16 [facility] [address] [place] [address] [id number] [place] [address] 20067- 4920 16 Feb, 2017 [facility] [address] [id number] [place] [address] 28365- 6862 Feb, [facility] [address] [place] [id number] [place] [address] 80869- 8241 25 Jan, 2017 [facility] [address] [place] [id number] [place] [address] 06623- 2604 22 Jan, 2017 Peroneal tendonitis of left lower extremity M76.72 [facility] [address] [place] [address] [id number] [place] [address] 56810- 7076 20 Jan, 2017 Lumbar neuritis M54.16 [facility] [address] [place] [address] [id number] [place] [address] 53696- 4570 12 Jan, 2017 [facility] [address] [place] [address] [id number] [place] [address] 87259- 4739 2016 Lumbar neuritis M54.16 [facility] [address] [id number] [place] [address] 92631- 0405 Dec, [facility] [address] [place] [id number] [place] [address] 24741- 5938 18 Dec, 2016 Pain in right knee M25.561 ; Lumbar neuritis M54.16 and Cervical neuritis M54.12 [facility] [address] [place] [id number] [place] [address] 55438- 5323 14 Dec, 2016 [facility] [address] [place] [id number] [place] [address] 51788- 8730 Dec, [facility] [address] [place] [address] [id number] [place] [address] 92003- 0767 Nov, Lumbar neuritis M54.16 [facility] [address] [place] [id number] [place] [address] 32436- 5144 Nov, Bilateral primary osteoarthritis of knee M17.0 [facility] [address] [place] [id number] [place] [address] 27551- 0472 Nov, [facility] [address] [place] [id number] [place] [address] 29072- 0614 Nov, Bronchitis J40 and Plantar fasciitis M72.2 [facility] [address] [place] [id number] [place] [address] 42455- 9560 Nov, [facility] [address] [place] [id number] [place] [address] 94101- 8575 Oct, Lumbar neuritis M54.16 [facility] [address] [place] [id number] [place] [address] 09936- 3540 Oct, Lumbar neuritis M54.16 [facility] [address] [place] [id number] [place] [address] 20105- 7486 Oct, Lumbar neuritis M54.16 [facility] [address] [place] [id number] [place] [address] 36548- 5048 Oct, Plantar fasciitis M72.2 and Pain in right knee M25.561 [facility] [address] [place] [id number] [place] [address] 78717- 3548 16 Oct, 2016 Lumbar neuritis M54.16 ; Cervical neuritis M54.12 ; Other specified abdominal hernia without obstruction or gangrene K45.8 ; Heel spur, left M77.32 ; Plantar fasciitis M72.2 and Pain in right knee M25.561 [facility] [address] [place] [id number] [place] [address] 77011- 9259 13 Oct, 2016 [facility] [address] [place] [address] [id number] [place] [address] 59201- 3962 14 Aug, 2014 [facility] [place] [facility] [address] [id number] [place] [address]- 1422 13 Aug, 2014 [facility] [place] [facility] [address] [facility] [id number], [place] [address]- 3801 11 Apr, 2014 [facility] [place] [facility] [address] [facility] [id number] [place] [address]- 6775 Apr, [facility] [place] [facility] [address] [id number], [place] [address]- 3531 Mar, [facility] [place] [facility] [address] [facility] [id number] [place] [address]- 2256 Mar, [facility] [place] [facility] [address] [facility] [id number] [place] [address]- 5847 Feb, [facility] [place] [facility] [address] [facility] [id number], [place] [address]- 8326 Feb, [facility] [place] [facility] [address] [facility] [id number], [place] [address]- 9699 Feb, [facility] [place] [facility] [address] [facility] [id number], [place] [address]- 5578 Feb, [facility] [place] [facility] [address] [facility] [id number], [place] [address]- 3067 Feb, [facility] [place] [facility] [address] [facility] [id number], [place] [address]- 9323 Feb, [facility] [place] [facility] [address] [facility] [id number], [place] [address]- 2162 Feb, [facility] [place] [facility] [address] [id number], [place] [address]- 9427 Feb, [facility] [place] [facility] [address] [facility] [id number], [place] [address]- 4709 Jan, [facility] [place] [facility] [address] [facility] [id number], [place] [address]- 7879 30 Jan, 2014 [facility] [place] [facility] [address] [id number] [place] [address] 2546 30 Sep, 2013 [facility] [place] [facility] [address] [id number] [place] [address] 2546 30 Sep, 2013 [facility] [place] [facility] [address] [id number] [place] [address] 2546 30 Sep, 2013 [facility] [place] [facility] [address] [id number] [place] [address] 2546 30 Sep, 2013 [facility] [place] [facility] [address] [id number] [place] [address] 2546 26 Sep, 2013 [facility] [place] [facility] [address] [id number] [place] [address] 2546 26 Sep, 2013 [facility] [place] [facility] [address] [id number] [place] [address]- 2224 22 Sep, 2013 [facility] [place] [facility] [address] [id number] [place] [address] 2548 22 Sep, 2013 [facility] [place] [facility] [address] [id number] [place] [address] 2540 16 Sep, 2013 [facility] [place] [facility] [address] [id number] [place] [address] 2547 16 Sep, 2013 [facility] [place] [facility] [address] [id number] [place] [address] 2540 16 Sep, 2013 [facility] [place] [facility] [address] [id number] [place] [address] 2542 16 Sep, 2013 [facility] [place] [facility] [address] [id number] [place] [address] 2546 12 Sep, 2013 [facility] [place] [facility] [address] [id number] [place] [address] 2546 12 Sep, 2013 [facility] [place] [facility] [address] [id number] [place] [address] 2546 12 Sep, 2013 [facility] [place] [facility] [address] [id number] [place] [address]- 4866 Jan, [facility] [place] [facility] [address] [id number] [place] [address]- 6769 Jan, 2013 [facility] [place] [facility] [address] [id number] [place] [address]- 2605 Jan, 2013 [facility] [place] [facility] [address] [id number] [place] [address]- 9090 Jan, 2013 [facility] [place] [facility] [address] [id number] [place] [address]- 4253 Jan, 2013 [facility] [place] [facility] [address] [id number] [place] [address]- 7780 Jan, [facility] [place] [facility] [address] [id number] [place] [address]- 2337 Jan, [facility] [place] [facility] [address] [id number] [place] [address]- 5522 Dec, [facility] [place] [facility] [address] [id number] [place] [address]- 8065 Dec, [facility] [place] [facility] [address] [id number] [place] [address]- 9979 Dec, [facility] [place] [facility] [address] [id number] [place] [address]- 9089 Dec, [facility] [place] [facility] [address] [id number] [place] [address]- 2962 Dec, [facility] [place] [facility] [address] [id number][place] [address]- 7385 Dec, [facility] [place] [facility] [address] [id number] [place] [address]- 3875 Dec, [facility] [place] [facility] [address] [id number] [place] [address]- 8940 Dec, [facility] [place] [facility] [address] [id number] [place] [address]- 2760 Dec, [facility] [place] [facility] [address] [id number] [place] [address]- 5083 Dec, [facility] [place] [facility] [address] [id number] [place] [address]- 0063 Dec, [facility] [place] [facility] [address] [id number] [place] [address]- 3266 Dec, [facility] [place] [facility] [address] [id number] [place] [address]- 0877 Dec, [facility] [place] [facility] [address] [id number] [place] [address]- 3765 Dec, [facility] [place] [facility] [address] [id number] [place] [address]- 8745 Dec, [facility] [place] [facility] [address] [id number] [place] [address]- 1744 Dec, [facility] [place] [facility] [address] [id number] [place] [address]- 1611 Dec, [facility] [place] [facility] [address] [id number] [place] [address]- 1007 Dec, [facility] [place] [facility] [address] [id number] [place] [address]- 6368 Dec, [facility] [place] [facility] [address] [id number] [place] [address]- 6453 Nov, [facility] [place] [facility] [address] [id number] [place] [address]- 1188 Nov, [facility] [place] [facility] [address] [id number] [place] [address]- 8399 Nov, [facility] [place] [facility] [address] [id number] [place] [address]- 2180 Nov, [facility] [place] [facility] [address] [id number] [place] [address]- 5210 Nov, [facility] [place] [facility] [address] [id number] [place] [address]- 5004 Nov, [facility] [address] [facility] [id number], [place] [address]- 4511 Nov, [facility] [address] [facility] [id number], [place] [address]- 1071 Nov, [facility] [address] [facility] [id number], [place] [address]- 0650 Nov, [facility] [address] [facility] [id number], [place] [address]- 6215 Nov, [facility] [address] [facility] [id number], [place] [address]- 9835 Nov, [facility] [address] [facility] [id number], [place] [address]- 8716 Oct, [facility] [address] [facility] [id number], [place] [address]- 7447 Oct, [facility] [address] [facility] [id number], [place] [address]- 8417 Oct, [facility] [address] [place] [id number] [address]- 1896 Apr, IMMUNIZATIONS No Known Immunizations SOCIAL HISTORY Never Assessed REASON FOR VISIT Controlled Med Refill PLAN OF CARE VITAL SIGNS MEDICATIONS Medication Instructions Dosage Frequency Start Date End Date Duration Status Hydrocodone-Acetaminophen 10-325 MG Orally every 8 hours, PRN 1 tablet as needed Oct, Nov, 28 days Active RESULTS No Results PROCEDURES [...]
--- OUTSIDE RECORDS SUMMARY | 2018-04-14 06:15 | XMS REPORT ---
Author Author PREETHI YIN Organization [facility] Address [address] [place] [address] Care Team Providers Care Aircraft Fuselage Framer Name Role Phone PREETHI YIN Unavailable PROBLEMS Type Condition ICD9-CM Code DXV04-GI Code Onset Dates Condition Status SNOMED Code Problem Cervicalgia 723.1 Active 01220592 Problem Occlusion and stenosis of carotid artery without mention of cerebral infarction 433.10 Active 848240743552263 Problem Chronic airway obstruction, not elsewhere classified 496 Active 57070315 Problem Chronic pain syndrome G89.4 Active 151555286 Problem Bilateral primary osteoarthritis of knee M17.0 Active 736950305 Problem Chronic pain syndrome 338.4 Active 787865242 Problem Unspecified essential hypertension 401.9 Active 60286446 Problem Other and unspecified hyperlipidemia 272.4 Active 16000418 Problem Anxiety state, unspecified 300.00 Active 013321837 Problem Personal history of tobacco use, presenting hazards to health V15.82 Active 3787728533561 Problem Need for prophylactic vaccination and inoculation, Influenza V04.81 Active 503004783 Problem Headache 784.0 Active 99900610 Problem Encounter for long-term (current) use of other medications V58.69 Active 600165279 Problem Syncope and collapse 780.2 Active 911086018 ALLERGIES No Information ENCOUNTERS Encounter Location Date Diagnosis [place] [id number] [address] Jul, [place] [id number] [place] [address] 50432- 8520 Jul, Pre-op evaluation Z01.818 [place] [id number] [place] [address] 44470- 3583 Jul, [place] [id number] [address] Jun, [place] [address] [place] [id number] [place] [address] 00991- 4354 Jun, [facility] [id number] [place] [address] 86739- 7117 Jun, [facility] [id number] [place] [address] 89181- 4672 Jun, [facility] [id number] [place] [address] 67965- 4332 Jun, [facility] [id number] [place] [address] 03502- 3221 Jun, Lumbar neuritis M54.16 [facility] [id number] [place] [address] 80122- 6160 May, [facility] [id number] [place] [address] 27565- 9272 May, [facility] [id number] [place] [address] 97228- 7003 May, Encounter for therapeutic drug level monitoring Z51.81 ; Encounter for immunization Z23 and Chronic pain syndrome G89.4 [facility] [id number] [place] [address] 11280- 1713 May, Lumbar neuritis M54.16 [facility] [id number] [place] [address] 67165- 9477 May, [facility] [id number] [place] [address] 17066- 8769 Apr, Lumbar neuritis M54.16 [facility] [id number] [place] [address] 16194- 7832 Apr, [facility] [id number] [place] [address] 88866- 9343 Mar, Lumbar neuritis M54.16 [facility] [id number] [place] [address] 27967- 5638 Mar, [facility] [id number] [place] [address] 02789- 3006 Mar, [facility] [address] [id number] [place] [address] 72291- 8311 Feb, Lumbar neuritis M54.16 [facility] [address] [id number] [place] [address] 61275- 7806 18 Feb, 2017 Lumbar neuritis M54.16 [facility] [id number] [place] [address] 46262- 2144 16 Feb, 2017 [facility] [id number] [place] [address] 09925- 8393 Feb, [facility] [id number] [place] [address] 50488- 7142 25 Jan, 2017 [facility] [id number] [place] [address] 01973- 0301 22 Jan, 2017 Peroneal tendonitis of left lower extremity M76.72 [facility] [address] [id number] [place] [address] 44553- 9700 20 Jan, 2017 Lumbar neuritis M54.16 [facility] [address] [place] [id number] [place] [address] 72832- 2730 12 Jan, 2017 [facility] [id number] [place] [address] 08118- 5159 2016 Lumbar neuritis M54.16 [facility] [address] [place] [id number] [place] [address] 42522- 6692 Dec, [facility] [address] [place] [id number] [place] [address] 06168- 8230 18 Dec, 2016 Pain in right knee M25.561 ; Lumbar neuritis M54.16 and Cervical neuritis M54.12 [facility] [address] [id number] [place] [address] 67230- 1396 14 Dec, 2016 [facility] [id number] [place] [address] 40073- 9485 Dec, [facility] [address] [place] [id number] [place] [address] 22297- 4754 Nov, Lumbar neuritis M54.16 [facility] [address] [place] [id number] [place] [address] 86213- 9356 Nov, Bilateral primary osteoarthritis of knee M17.0 [facility] [address] [place] [id number] [place] [address] 76365- 2415 Nov, [facility] [address] [place] [id number] [place] [address] 56362- 1203 Nov, Bronchitis J40 and Plantar fasciitis M72.2 [facility] [address] [place] [id number] [place] [address] 46396- 9895 Nov, [facility] [address] [place] [address] [id number] [place] [address] 91426- 9633 Oct, Lumbar neuritis M54.16 [facility] [address] [place] [address] [id number] [place] [address] 56769- 8096 Oct, Lumbar neuritis M54.16 [facility] [address] [place] [address] [id number] [place] [address] 67454- 3935 Oct, Lumbar neuritis M54.16 [facility] [address] [place] [address] [id number] [place] [address] 69833- 1706 Oct, Plantar fasciitis M72.2 and Pain in right knee M25.561 [facility] [address] [place] [id number] [place] [address] 23944- 1460 16 Oct, 2016 Lumbar neuritis M54.16 ; Cervical neuritis M54.12 ; Other specified abdominal hernia without obstruction or gangrene K45.8 ; Heel spur, left M77.32 ; Plantar fasciitis M72.2 and Pain in right knee M25.561 [facility] [address] [place] [address] [id number] [place] [address] 89004- 8447 13 Oct, 2016 [facility] [address] [place] [id number] [place] [address] 61056- 2422 14 Aug, 2014 [facility] [place] [facility] [address] [id number] [place] [address]- 8949 13 Aug, 2014 [facility] [place] [facility] [address] [facility] [id number] [address]- 6596 11 Apr, 2014 [facility] [place] [facility] [address] [facility] [id number] [place] [address]- 3421 Apr, [facility] [place] [facility] [address] [id number] [place] [address]- 3614 Mar, [facility] [place] [facility] [address] [facility] [id number] [place] [address]- 2714 Mar, [facility] [place] [facility] [address] [facility] [id number] [place] [address]- 2597 Feb, [facility] [place] [facility] [address] [facility] [id number] [address]- 5423 Feb, [facility] [place] [facility] [address] [facility] [id number] [place] [address]- 6030 Feb, [facility] [place] [facility] [address] [facility] [id number] [place] [address]- 7755 Feb, [facility] [place] [facility] [address] [facility] [id number] [place] [address]- 3577 Feb, [facility] [place] [facility] [address] [facility] [id number] [place] [address]- 2761 Feb, [facility] [place] [facility] [address] [facility] [id number] [place] [address]- 8752 Feb, [facility] [place] [facility] [address] [id number] [place] [address]- 2677 Feb, [facility] [place] [facility] [address] [facility] [id number] [place] [address]- 9890 Jan, [facility] [place] [facility] [address] [facility] [id number] [place] [address]- 2716 30 Jan, 2014 [facility] [place] [facility] [address] [id number] [place] [address] 2546 30 Sep, 2013 [facility] [place] [facility] [address] [id number] [place] [address] 2546 30 Sep, 2013 [facility] [place] [facility] [address] [id number] [place] [address] 2546 30 Sep, 2013 [facility] [place] [facility] [address] [id number] [place] [address] 2546 30 Sep, 2013 [facility] [place] [facility] [address] [id number] [place] [address] 2546 26 Sep, 2013 [facility] [place] [facility] [address] [id number] [place] [address] 2546 26 Sep, 2013 [facility] [place] [facility] [address] [id number] [place] [address]- 3482 22 Sep, 2013 [facility] [place] [facility] [address] [id number] [place] [address] 254 22 Sep, 2013 [facility] [place] [facility] [address] [id number] [place] [address] 2547 16 Sep, 2013 [facility] [place] [facility] [address] [id number] [place] [address] 2548 16 Sep, 2013 [facility] [place] [facility] [address] [id number] [place] [address] 2549 16 Sep, 2013 [facility] [place] [facility] [address] [id number] [place] [address] 2547 16 Sep, 2013 [facility] [place] [facility] [address] [id number] [place] [address] 2546 12 Sep, 2013 [facility] [place] [facility] [address] [id number] [place] [address] 2546 12 Sep, 2013 [facility] [place] [facility] [address] [id number] [place] [address] 2546 12 Sep, 2013 [facility] [place] [facility] [address] [id number] [place] [address]- 2961 Jan, [facility] [place] [facility] [address] [id number] [place] [address]- 0125 Jan, 2013 [facility] [place] [facility] [address] [id number] [place] [address]- 1475 Jan, 2013 [facility] [place] [facility] [address] [id number] [place] [address]- 0645 Jan, 2013 [facility] [place] [facility] [address] [id number] [place] [address]- 9272 Jan, 2013 [facility] [place] [facility] [address] [id number] [place] [address]- 9785 Jan, [facility] [place] [facility] [address] [id number] [place] [address]- 8862 Jan, [facility] [place] [facility] [address] [id number] [place] [address]- 4293 Dec, [facility] [place] [facility] [address] [id number] [place] [address]- 7999 Dec, [facility] [place] [facility] [address] [id number] [place] [address]- 8083 Dec, [facility] [place] [facility] [address] [id number] [place] [address]- 1317 Dec, [facility] [place] [facility] [address] [id number] [place] [address]- 8431 Dec, [facility] [place] [facility] [address] [id number] [address]- 1682 Dec, [facility] [place] [facility] [address] [id number] [place] [address]- 9255 Dec, [facility] [place] [facility] [address] [id number] [place] [address]- 3957 Dec, [facility] [place] [facility] [address] [id number] [place] [address]- 5139 Dec, [facility] [place] [facility] [address] [id number] [place] [address]- 0089 Dec, [facility] [place] [facility] [address] [id number] [place] [address]- 3350 Dec, [facility] [place] [facility] [address] [id number] [place] [address]- 1702 Dec, [facility] [place] [facility] [address] [id number] [place] [address]- 7527 Dec, [facility] [place] [facility] [address] [id number] [place] [address]- 0719 Dec, [facility] [place] [facility] [address] [id number] [place] [address]- 9294 Dec, [facility] [place] [facility] [address] [id number] [place] [address]- 3140 Dec, [facility] [place] [facility] [address] [id number] [place] [address]- 9169 Dec, [facility] [place] [facility] [address] [id number] [place] [address]- 6614 Dec, [facility] [place] [facility] [address] [id number] [place] [address]- 0730 Dec, [facility] [place] [facility] [address] [id number] [place] [address]- 0073 Nov, [facility] [place] [facility] [address] [id number] [place] [address]- 0693 Nov, [facility] [place] [facility] [address] [id number] [place] [address]- 9657 Nov, [facility] [place] [facility] [address] [id number] [place] [address]- 3330 Nov, [facility] [place] [facility] [address] [id number] [place] [address]- 9163 Nov, [facility] [place] [facility] [address] [id number] [place] [address]- 5080 Nov, [facility] [address] [facility] [id number] [place] [address]- 5565 Nov, [facility] [address] [facility] [id number] [place] [address]- 4003 Nov, [facility] [address] [facility] [id number] [place] [address]- 5435 Nov, [facility] [address] [facility] [id number] [place] [address]- 0450 Nov, [facility] [address] [facility] [id number] [place] [address]- 7120 Nov, [facility] [address] [facility] [id number] [place] [address]- 8973 Oct, [facility] [address] [address]- 4704 Oct, [facility] [address] [address]- 8288 Oct, [facility] [address] [place] [id number] [address]- 4032 Apr, IMMUNIZATIONS No Known Immunizations SOCIAL HISTORY Never Assessed REASON FOR VISIT Controlled Med Refill PLAN OF CARE VITAL SIGNS MEDICATIONS Medication Instructions Dosage Frequency Start Date End Date Duration Status Morphine Sulfate ER 60 mg Orally Once a day 1 capsule 24h Oct, Active RESULTS No Results PROCEDURES No Known [...]
--- OUTSIDE RECORDS SUMMARY | 2018-04-14 06:16 | XMS REPORT ---
Author Author MARIO KEYUR Organization [facility] Address [address] [place] [address] Care Team Providers Care Electric Detector Operator Name Role Phone KEYUR MARTIN Unavailable PROBLEMS Type Condition ICD9-CM Code INZ82-VG Code Onset Dates Condition Status SNOMED Code Problem Chronic airway obstruction, not elsewhere classified 496 Active 02036888 Problem Unspecified essential hypertension 401.9 Active 27627234 Problem Occlusion and stenosis of carotid artery without mention of cerebral infarction 433.10 Active [id number] Problem Anxiety disorder, unspecified F41.9 Active 321260239 Problem Chronic pain syndrome G89.4 Active 821982395 Problem Anxiety state, unspecified 300.00 Active 382201787 Problem Chronic pain syndrome 338.4 Active 036383551 Problem Bilateral primary osteoarthritis of knee M17.0 Active 843442957 Problem Other and unspecified hyperlipidemia 272.4 Active 85601137 Problem Need for prophylactic vaccination and inoculation, Influenza V04.81 Active 490753781 Problem Headache 784.0 Active 78257998 Problem Encounter for long-term (current) use of other medications V58.69 Active 639073162 Problem Syncope and collapse 780.2 Active 963502330 Problem Personal history of tobacco use, presenting hazards to health V15.82 Active 5340259561278 Problem Cervicalgia 723.1 Active 49678620 ALLERGIES No Information ENCOUNTERS Encounter Location Date Diagnosis [facility] [address] [id number], [place] [address] September, [facility] [id number] [place] [address] 28430- 2385 Aug, [facility] [id number] [place] [address] 13655- 7380 Aug, [facility] [id number] [place] [address] 73629- 8189 Aug, [facility] [id number] [place] [address] 53601- 7944 Aug, [facility] [id number] [place] [address] 63073- 2136 Aug, Incisional infection, initial encounter T81.4XXA [facility] [id number] [place] [address] 49619- 0681 Aug, [facility] [id number] [place] [address] 87705- 1624 Jul, [facility] [id number] [place] [address] 04793- 7296 Jul, [facility] [id number] [place] [address] 95409- 4882 Jul, Chronic pain syndrome G89.4 [facility] [id number] [place] [address] 48330- 3674 Jul, Pre-op evaluation Z01.818 [facility] [id number] [place] [address] 91220- 1612 Jul, [facility] [id number] [place] [address] 38092- 0313 Jun, Anxiety disorder, unspecified F41.9 and Chronic pain syndrome G89.4 [facility] [id number] [place] [address] 20174- 2376 Jun, [facility] [id number] [place] [address] 46380- 8090 Jun, [facility] [id number] [place] [address] 42190- 0452 Jun, [facility] [id number] [place] [address] 08072- 9551 Jun, [facility] [id number] [place] [address] 26416- 1228 Jun, Lumbar neuritis M54.16 [facility] [id number] [place] [address] 31467- 2255 May, [facility] [id number] [place] [address] 02435- 9206 May, [facility] [id number] [place] [address] 63718- 2072 May, Encounter for therapeutic drug level monitoring Z51.81 ; Encounter for immunization Z23 and Chronic pain syndrome G89.4 [facility] [id number] [place] [address] 76130- 7797 May, Lumbar neuritis M54.16 [facility] [id number] [place] [address] 01049- 5850 May, [facility] [id number] [place] [address] 00323- 9237 Apr, Lumbar neuritis M54.16 [facility] [id number] [place] [address] 11978- 8055 Apr, [facility] [id number] [place] [address] 43787- 5538 Mar, Lumbar neuritis M54.16 [facility] [id number] [place] [address] 90903- 4514 Mar, [facility] [id number] [place] [address] 03611- 4109 Mar, [facility] [id number] [place] [address] 88404- 0403 Feb, Lumbar neuritis M54.16 [facility] [id number] [place] [address] 55618- 0971 Feb, Lumbar neuritis M54.16 [facility] [id number] [place] [address] 49442- 2814 Feb, [facility] [id number] [place] [address] 35223- 2369 Feb, [facility] [id number] [place] [address] 79281- 0951 Jan, [facility] [id number] [place] [address] 86112- 1647 22 Jan, 2017 Peroneal tendonitis of left lower extremity M76.72 [facility] [id number] [place] [address] 42949- 0412 20 Jan, 2017 Lumbar neuritis M54.16 [facility] [id number] [place] [address] 73200- 2847 Jan, [facility] [id number] [place] [address] 44023- 9504 Dec, Lumbar neuritis M54.16 [facility] [id number] [place] [address] 01731- 8951 Dec, [facility] [id number] [place] [address] 25740- 4751 Dec, Pain in right knee M25.561 ; Lumbar neuritis M54.16 and Cervical neuritis M54.12 [facility] [id number] [place] [address] 32078- 6872 Dec, [facility] [id number] [place] [address] 85732- 5472 Dec, [facility] [id number] [place] [address] 00148- 9840 Nov, Lumbar neuritis M54.16 [facility] [id number] [place] [address] 58305- 8535 Nov, Bilateral primary osteoarthritis of knee M17.0 [facility] [id number] [place] [address] 65562- 4274 Nov, [facility] [id number] [place] [address] 69906- 3680 14 Jewel, 2017 Bronchitis J40 and Plantar fasciitis M72.2 [facility] [id number] [place] [address] 92790- 2709 Nov, [facility] [address] 74070- 2560 Oct, Lumbar neuritis M54.16 [facility] [address] 12513- 9813 Oct, Lumbar neuritis M54.16 [facility] [address] 91178- 6460 Oct, Lumbar neuritis M54.16 [facility] [address] 66053- 4749 26 Oct, 2016 Plantar fasciitis M72.2 and Pain in right knee M25.561 [facility] [address] 10660- 8519 16 Oct, 2016 Lumbar neuritis M54.16 ; Cervical neuritis M54.12 ; Other specified abdominal hernia without obstruction or gangrene K45.8 ; Heel spur, left M77.32 ; Plantar fasciitis M72.2 and Pain in right knee M25.561 [facility] [id number] [place] [address] 35837- 5595 13 Oct, 2016 [facility] [id number] [place] [address] 47213- 4319 14 Aug, 2014 [facility] [id number] [place] [address] 70719- 2998 Aug, [facility] [id number] [place] [address] 74419- 1327 Apr, [facility] [address] 05923- 7208 Apr, [facility] [id number] [place] [address] 73560- 7028 Mar, [facility] [address] [place] [address]- 0098 13 Mar, 2013 [facility] [place] [facility] [address] [id number] [place] [address]- 7958 10 Feb, 2013 [facility] [place] [facility] [address] [id number] [place] [address]- 9023 10 Feb, 2013 [facility] [place] [facility] [address] [id number] [place] [address]- 5765 09 Feb, 2013 [facility] [place] [facility] [address] [id number] [place] [address]- 6111 09 Feb, 2013 [facility] [place] [facility] [address] [id number] [place] [address]- 9847 Feb, 2013 [facility] [place] [facility] [address] [id number] [place] [address]- 2785 Feb, 2013 [facility] [place] [facility] [address] [id number] [place] [address]- 1668 Feb, 2013 [facility] [place] [facility] [address] [id number] [place] [address]- 5939 07 Feb, 2013 [facility] [place] [facility] [address] [id number] [place] [address]- 8629 30 Sep, 2013 [facility] [place] [facility] [address] [facility] [id number] [place] [address]- 0359 30 Sep, 2013 [facility] [place] [facility] [address] [id number] [place] [address]- 7536 30 Sep, 2013 [facility] [place] [facility] [address] [id number] [place] [address]- 2541 30 Sep, 2013 [facility] [place] [facility] [address] [id number] [place] [address]- 2546 30 Sep, 2013 [facility] [place] [facility] [address] [id number] [place] [address]- 2546 30 Sep, 2013 [facility] [place] [facility] [address] [facility] [id number] [place] [address]- 2221 26 Sep, 2013 [facility] [place] [facility] [address] [id number] [place] [address]- 2545 26 Sep, 2013 [facility] [place] [facility] [address] [id number] [place] [address] 2549 22 Sep, 2013 [facility] [place] [facility] [address] [id number] [place] [address] 2542 22 Sep, 2013 [facility] [place] [facility] [address] [id number] [place] [address] 2543 16 Sep, 2013 [facility] [place] [facility] [address] [id number] [place] [address] 2545 16 Sep, 2013 [facility] [place] [facility] [address] [id number] [place] [address]- 8031 16 Sep, 2013 [facility] [place] [facility] [address] [id number] [place] [address]- 5834 16 Sep, 2013 [facility] [place] [facility] [address] [id number] [place] [address]- 9639 12 Sep, 2013 [facility] [place] [facility] [address] [id number] [place] [address]- 3928 12 Sep, 2013 [facility] [place] [facility] [address] [id number] [place] [address]- 9744 12 Sep, 2013 [facility] [place] [facility] [address] [id number] [place] [address]- 7273 12 Sep, 2013 [facility] [place] [facility] [address] [id number] [place] [address]- 254 09 Sep, 2013 [facility] [place] [facility] [address] [id number] [place] [address] 2543 09 Sep, 2013 [facility] [place] [facility] [address] [id number] [place] [address]- 2540 09 Sep, 2013 [facility] [place] [facility] [address] [id number] [place] [address]- 2547 09 Sep, 2013 [facility] [place] [facility] [address] [id number] [place] [address]- 1434 Jan, [facility] [place] [facility] [address] [id number] [place] [address]- 4394 Jan, [facility] [place] [facility] [address] [id number] [place] [address]- 8267 Dec, [facility] [place] [facility] [address] [id number] [place] [address]- 7351 Dec, [facility] [place] [facility] [address] [id number] [place] [address]- 9819 Dec, [facility] [place] [facility] [address] [id number] [place] [address]- 1468 Dec, [facility] [place] [facility] [address] [id number] [place] [address]- 8275 Dec, [facility] [place] [facility] [address] [id number] [place] [address]- 8003 Dec, [facility] [place] [facility] [address] [id number] [place] [address]- 8625 Dec, [facility] [place] [facility] [address] [id number] [place] [address]- 6430 Dec, [facility] [place] [facility] [address] [id number] [place] [address]- 8523 Dec, [facility] [place] [facility] [address] [id number] [place] [address]- 1080 Dec, [facility] [place] [facility] [address] [id number] [place] [address]- 5879 Dec, [facility] [place] [facility] [address] [id number] [place] [address]- 2785 Dec, [facility] [place] [facility] [address] [id number] [place] [address]- 4239 Dec, [facility] [place] [facility] [address] [id number] [place] [address]- 8149 Dec, [facility] [place] [facility] [address] [id number] [place] [address]- 5335 Dec, [facility] [place] [facility] [address] [id number] [place] [address]- 1641 Dec, [facility] [place] [facility] [address] [id number] [place] [address]- 4611 Dec, [facility] [place] [facility] [address] [id number] [place] [address]- 7339 Dec, [facility] [place] [facility] [address] [id number] [place] [address]- 4880 Dec, [facility] [place] [facility] [address] [id number] [place] [address]- 7553 Nov, [facility] [place] [facility] [address] [id number] [place] [address]- 4832 Nov, [facility] [place] [facility] [address] [id number] [place] [address]- 4977 Nov, [facility] [place] [facility] [address] [id number] [place] [address]- 0551 Nov, [facility] [place] [facility] [address] [id number] [place] [address]- 4876 Nov, [facility] [place] [facility] [address] [id number] [place] [address]- 2033 Nov, [facility] [place] [facility] [address] [id number] [place] [address]- 9073 Nov, [facility] [place] [facility] [address] [id number] [place] [address]- 6076 Nov, [facility] [place] [facility] [address] [id number] [place] [address]- 5528 Nov, [facility] [place] [facility] [address] [id number] [place] [address]- 1739 Nov, [facility] [place] [facility] [address] [id number] [place] [address]- 4056 Nov, [facility] [address] [facility] [id number] [place] [address]- 0891 Oct, [facility] [address] [facility] [id number], [place] [address]- 8142 Oct, [facility] [address] [facility] [id number] [address]- 1854 Oct, [facility] [address] [facility] [id number], [place] [address]- 1919 Apr, IMMUNIZATIONS No Known Immunizations SOCIAL HISTORY Never Assessed REASON FOR VISIT PA for MRI Left foot & ankle PLAN OF CARE VITAL SIGNS MEDICATIONS Unknown [...]
--- OUTSIDE RECORDS SUMMARY | 2018-04-14 06:16 | XMS REPORT ---
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 Name Role Phone PREETHI YIN Unavailable PROBLEMS Type Condition ICD9-CM Code IMP56-XR Code Onset Dates Condition Status SNOMED Code Problem Chronic airway obstruction, not elsewhere classified 496 Active 44754646 Problem Unspecified essential hypertension 401.9 Active 01110005 Problem Occlusion and stenosis of carotid artery without mention of cerebral infarction 433.10 Active 342127303810847 Problem Anxiety disorder, unspecified F41.9 Active 002906786 Problem Chronic pain syndrome G89.4 Active 102658759 Problem Anxiety state, unspecified 300.00 Active 507637945 Problem Chronic pain syndrome 338.4 Active 566815030 Problem Bilateral primary osteoarthritis of knee M17.0 Active 070059794 Problem Other and unspecified hyperlipidemia 272.4 Active 74822308 Problem Need for prophylactic vaccination and inoculation, Influenza V04.81 Active 843097952 Problem Headache 784.0 Active 69799284 Problem Encounter for long-term (current) use of other medications V58.69 Active 542899906 Problem Syncope and collapse 780.2 Active 578495334 Problem Personal history of tobacco use, presenting hazards to health V15.82 Active 2865703449011 Problem Cervicalgia 723.1 Active 05030391 ALLERGIES Substance Reaction Event Type Date Status Dilaudid dizziness Drug Allergy Dec, Active ENCOUNTERS Encounter Location Date Diagnosis [facility] [id number] [address] Aug, [facility] [address], [place] [address] Aug, [facility] [id number], [place] [address] Aug, Incisional infection, initial encounter T81.4XXA [facility] [address], [place] [address] Aug, [facility] [id number] [place] [address] 66332- 6462 Jul, [facility] [id number] [place] [address] 927129- 4844 Jul, [facility] [id number] [place] [address] 348065- 6496 Jul, Chronic pain syndrome G89.4 [facility] [id number] [place] [address] 96014- 3102 Jul, Pre-op evaluation Z01.818 [facility] [id number] [place] [address] 60239- 0820 Jul, [facility] [id number] [place] [address] 87891- 9024 Jun, Anxiety disorder, unspecified F41.9 and Chronic pain syndrome G89.4 [facility] [id number] [place] [address] 32847- 4805 Jun, [facility] [id number] [place] [address] 43488- 3230 Jun, [facility] [id number] [place] [address] 38098- 1459 Jun, [facility] [id number] [place] [address] 51892- 0058 Jun, [facility] [id number] [place] [address] 67759- 4052 Jun, Lumbar neuritis M54.16 [facility] [id number] [place] [address] 311397- 2695 May, [facility] [id number] [place] [address] 078829- 6268 May, [facility] [id number] [place] [address] 33794- 9175 May, Encounter for therapeutic drug level monitoring Z51.81 ; Encounter for immunization Z23 and Chronic pain syndrome G89.4 [facility] [id number] [place] [address] 68631- 0417 May, Lumbar neuritis M54.16 [facility] [id number] [place] [address] 88017- 9496 May, [facility] [id number] [place] [address] 22797- 8689 Apr, Lumbar neuritis M54.16 [facility] [id number] [place] [address] 50334- 5077 Apr, [facility] [id number] [place] [address] 86214- 1631 Mar, Lumbar neuritis M54.16 [facility] [id number] [place] [address] 48792- 4230 Mar, [facility] [id number] [place] [address] 28788- 6241 Mar, [facility] [id number] [place] [address] 43100- 5370 Feb, Lumbar neuritis M54.16 [facility] [id number] [place] [address] 19317- 8112 Feb, Lumbar neuritis M54.16 [facility] [id number] [place] [address] 35810- 9718 Feb, [facility] [id number] [place] [address] 12584- 0554 Feb, [facility] [id number] [place] [address] 80736- 3896 Jan, [facility] [id number] [place] [address] 83945- 8060 Jan, Peroneal tendonitis of left lower extremity M76.72 [facility] [id number] [place] [address] 35219- 2961 20 Jan, 2017 Lumbar neuritis M54.16 [facility] [id number] [place] [address] 99563- 3156 12 Jan, 2017 [facility] [id number] [place] [address] 33109- 3236 Dec, Lumbar neuritis M54.16 [facility] [id number] [place] [address] 70559- 0647 Dec, [facility] [address] [address]10 Dec, Pain in right knee M25.561 ; Lumbar neuritis M54.16 and Cervical neuritis M54.12 [facility] [id number] [place] [address] 14526- 0322 Dec, [facility] [id number] [place] [address] 80533- 5673 Dec, [facility] [address] [address]- 7705 Nov, Lumbar neuritis M54.16 [facility] [id number] [place] [address] 05284- 6534 Nov, Bilateral primary osteoarthritis of knee M17.0 [facility] [id number] [place] [address] 82757- 2695 Nov, [facility] [id number] [place] [address] 70506- 1379 Nov, Bronchitis J40 and Plantar fasciitis M72.2 [facility] [id number] [place] [address] 14055- 9294 Nov, [facility] [id number] [place] [address] 24462- 0317 Oct, Lumbar neuritis M54.16 [facility] [id number] [place] [address] 61825- 3242 30 Oct, 2016 Lumbar neuritis M54.16 [facility] [id number] [place] [address] 65947- 5438 28 Oct, 2016 Lumbar neuritis M54.16 [facility] [id number] [place] [address] 14333- 1428 26 Oct, 2016 Plantar fasciitis M72.2 and Pain in right knee M25.561 [facility] [id number] [place] [address] 97716- 4811 16 Oct, 2016 Lumbar neuritis M54.16 ; Cervical neuritis M54.12 ; Other specified abdominal hernia without obstruction or gangrene K45.8 ; Heel spur, left M77.32 ; Plantar fasciitis M72.2 and Pain in right knee M25.561 [facility] [id number] [place] [address] 30692- 1702 13 Oct, 2016 [facility] [id number] [place] [address] 08490- 0178 Aug, [facility] [id number] [place] [address] 69945- 6562 Aug, [facility] [id number] [place] [address] 18373- 8630 Apr, [facility] [id number] [place] [address] 80626- 4719 Apr, [facility] [id number] [place] [address] 14443- 7382 Mar, [facility] [id number] [place] [address] 54729- 1693 Mar, [facility] [id number] [place] [address] 48083- 4446 Feb, [facility] [id number] [place] [address] 08472- 7823 Feb, [facility] [place] [facility] [address] [id number] [place] [address]- 8932 09 Feb, 2013 [facility] [place] [facility] [address] [id number] [place] [address]- 3856 Feb, 2013 [facility] [place] [facility] [address] [id number] [place] [address]- 9806 Feb, 2013 [facility] [place] [facility] [address] [id number] [place] [address]- 8251 Feb, 2013 [facility] [place] [facility] [address] [id number] [place] [address]- 8923 Feb, 2013 [facility] [place] [facility] [address] [id number] [place] [address]- 0679 Feb, 2013 [facility] [place] [facility] [address] [id number] [place] [address]- 1626 30 Sep, 2013 [facility] [place] [facility] [address] [id number] [place] [address]- 2540 30 Sep, 2013 [facility] [place] [facility] [address] [id number] [place] [address] 2546 30 Sep, 2013 [facility] [place] [facility] [address] [id number] [place] [address] 2546 30 Sep, 2013 [facility] [place] [facility] [address] [id number] [place] [address] 2546 30 Sep, 2013 [facility] [place] [facility] [address] [id number] [place] [address] 2546 30 Sep, 2013 [facility] [place] [facility] [address] [id number] [place] [address] 2546 26 Sep, 2013 [facility] [place] [facility] [address] [id number] [place] [address] 2546 26 Sep, 2013 [facility] [place] [facility] [address] [id number] [place] [address] 2546 22 Sep, 2013 [facility] [place] [facility] [address] [id number] [place] [address]- 9570 22 Jan, 2013 [facility] [place] [facility] [address] [id number] [place] [address]- 6869 16 Sep, 2013 [facility] [place] [facility] [address] [id number] [place] [address]- 6449 16 Sep, 2013 [facility] [place] [facility] [address] [id number] [place] [address]- 7064 16 Sep, 2013 [facility] [place] [facility] [address] [id number] [place] [address]- 4795 16 Sep, 2013 [facility] [place] [facility] [address] [id number] [place] [address]- 7227 12 Sep, 2013 [facility] [place] [facility] [address] [id number] [place] [address]- 5836 12 Jan, 2013 [facility] [place] [facility] [address] [id number] [place] [address]- 7472 12 Jan, 2013 [facility] [place] [facility] [address] [id number] [place] [address]- 1632 12 Jan, 2013 [facility] [place] [facility] [address] [id number] [place] [address]- 0754 09 Sep, 2013 [facility] [place] [facility] [address] [id number] [place] [address]- 0375 09 Jan, 2013 [facility] [place] [facility] [address] [id number] [address]- 4498 09 Sep, 2013 [facility] [place] [facility] [address] [id number] [address]- 4995 09 Sep, 2013 [facility] [place] [facility] [address] [id number] [place] [address]- 2549 05 Jan, 2013 [facility] [place] [facility] [address] [id number] [address]- 1110 05 Jan, 2013 [facility] [place] [facility] [address] [id number] [place] [address]- 8471 Dec, [facility] [place] [facility] [address] [id number] [place] [address]- 7826 Dec, [facility] [place] [facility] [address] [id number] [facility] [place] [address]- 0906 Dec, [facility] [place] [facility] [address] [id number] [place] [address]- 5531 Dec, [facility] [place] [facility] [address] [id number] [place] [address]- 0002 Dec, [facility] [place] [facility] [address] [id number] [place] [address]- 1183 Dec, [facility] [place] [facility] [address] [id number] [place] [address]- 1303 Dec, [facility] [place] [facility] [address] [id number] [place] [address]- 9672 Dec, [facility] [place] [facility] [address] [id number] [place] [address]- 4560 Dec, [facility] [place] [facility] [address] [id number] [place] [address]- 3382 Dec, [facility] [place] [facility] [address] [id number] [place] [address]- 5881 Dec, [facility] [place] [facility] [address] [id number] [place] [address]- 0758 Dec, [facility] [place] [facility] [address] [id number] [place] [address]- 8636 Dec, [facility] [place] [facility] [address] [id number] [place] [address]- 0256 Dec, [facility] [place] [facility] [address] [id number] [place] [address]- 5150 Dec, [facility] [place] [facility] [address] [id number] [place] [address]- 7739 Dec, [facility] [place] [facility] [address] [id number] [place] [address]- 4663 Dec, [facility] [place] [facility] [address] [id number] [place] [address]- 7902 Dec, [facility] [place] [facility] [address] [id number] [place] 4711 Dec, [facility] [place] [facility] [address] [id number] [place] [address]- 9555 Nov, [facility] [place] [facility] [address] [id number] [place] [address]- 8441 Nov, [facility] [place] [facility] [address] [id number] [place] [address]- 8616 Nov, [facility] [place] [facility] [address] [id number] [place] [address]- 6040 Nov, [facility] [place] [facility] [address] [id number] [place] [address]- 6280 Nov, [facility] [place] [facility] [address] [id number] [place] [address]- 1384 Nov, [facility] [place] [facility] [address] [id number] [place] [address]- 9698 Nov, [facility] [place] [facility] [address] [id number] [place] [address]- 7033 Nov, [facility] [place] [facility] [address] [id number] [place] [address]- 6611 Nov, [facility] [place] [facility] [address] [id number] [place] [address]- 0361 Nov, [facility] [place] [facility] [address] [id number] [place] [address]- 4465 Nov, [facility] [place] [facility] [address] [id number] [place] [address]- 4327 Oct, [facility] [place] [facility] [address] [id number] [place] [address]- 6723 Oct, [facility] [place] [facility] [address] [id number] [place] [address]- 4806 Oct, [facility] [address] [facility] [id number] [place] [address]- 8236 Apr, IMMUNIZATIONS No Known Immunizations SOCIAL HISTORY Never Assessed REASON FOR VISIT wanting referral for Dr. sepulveda and Dr. barrera -- dominik foss PLAN OF CARE VITAL SIGNS Height 70 in 2017-01-02 Weight 20.8 lbs 2017-01-02 Temperature 97.8 degrees Fahrenheit 2017-01-02 Heart Rate 100 bpm 2017-01-02 Respiratory Rate 22 2017-01-02 BMI 2.98 kg/m2 2017-01-02 Blood pressure systolic 170 mmHg 2017-01-02 Blood pressure diastolic 88 mmHg 2017-01-02 MEDICATIONS Medication Instructions Dosage Frequency Start Date End Date Duration Status Gabapentin 300 MG Orally Three times a day 2 capsules 8h Active Fluticasone Propionate 50 MCG/ACT ADMINISTER 2 SPRAYS IN EACH NOSTRIL 2 TIMES DAILY. Active Cyclobenzaprine HCl 10 mg Orally Three times a day 1 tablet as needed 8h Active Cymbalta 30 MG Orally Twice a day 1 capsule 12h Active Norvasc 10 mg Orally Once a day 1 tablet 24h Active Morphine Sulfate ER 30 MG Orally at bed time 1 tablet Nov, 28 days Active Morphine Sulfate ER 60 MG Orally Once a day 1 capsule 24h Nov, 28 days Active Captopril 25 mg 1 tablet 12h 17 Nov, 2013 Active ProAir HFA 108 (90 Base) MCG/ACT INHALE 2 PUFFS INTO LUNGS EVERY FOUR HOURS NEEDED FOR SHORTNESS OF BREATH Active Lipitor 80 mg 1 tablet by Oral route 1 time per day Active Flonase 50 MCG/ACT Nasally Once a day 1 spray in each nostril 24h Active Diazepam 10 MG Orally Once a day, at bed time 1 tablet 28 days Active Prevacid 30 mg 1 capsule 24h Dec, Active Tiotropium [place]-Olodaterol 2.5-2.5 MCG/ACT Inhalation Once a day 2 puffs 24h Active Voltaren 1 % Transdermal 2 times a day apply 1g to affected area 12h Nov Active Aspirin 81 mg 1 tablet by Oral route 1 time per day Dec, Active Hydrocodone-Acetaminophen 10-325 MG Orally every 8 hours, PRN 1 tablet as needed Nov, 28 days Active RESULTS No Results [...]
--- OUTSIDE RECORDS SUMMARY | 2018-04-14 06:18 | XMS REPORT | Continuity of Care Document ---
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 ARTHROPATHY, RIGHT SHOULDER 04/05/2018 VICKY WEATHERS MD, Ot M12.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, LEFT SHOULDER 04/05/2018 VICKY WEATHERS MD, Ot M75.101 UNSP ROTATR-CUFF TEAR/RUPTR OF RIGHT [place]ALIA 04/05/2018 VICKY WEATHERS MD, Ot M75.102 UNSP ROTATR-CUFF TEAR/RUPTR OF LEFT SHOU 04/05/2018 PREETHI YIN Ot M54.16 RADICULOPATHY, LUMBAR REGION 04/05/2018 MARIO DPM, KEYUR Q Ot M76.72 PERONEAL TENDINITIS, LEFT LEG 04/06/2018 VICKY WEATHERS MD, Ot M17.11 UNILATERAL PRIMARY OSTEOARTHRITIS, RIGHT 04/06/2018 VICKY WEATHERS MD Ot R53.83 OTHER FATIGUE 04/06/2018 VICKY WEATHERS MD Ot Z01.810 ENCOUNTER FOR PREPROCEDURAL CARDIOVASCUL 04/06/2018 VICKY WEATHERS MD, Ot Z01.811 ENCOUNTER FOR PREPROCEDURAL RESPIRATORY 04/06/2018 VICKY WEATHERS MD, Ot Z01.812 ENCOUNTER FOR PREPROCEDURAL LABORATORY E 04/06/2018 VICKY WEATHERS MD, Ot Z11.2 ENCOUNTER FOR SCREENING FOR OTHER BACTER Procedures Code Description Performed By Performed On NEUROLOGI FRANC MARRUFO 11/03/2013 ORTHOPEDI EVAN SALVADOR 11/03/2013 57683 [employer] 11/08/2013 26564 XRAY THORACIC SPINE 3 VIEWS 12/01/2013 94488 XRAY LUMBAR SPINE 2 OR 3 VIEWS 12/01/2013 94791 JOINT INJECTION- LARGE JOINT (SPECIFY MEDCIN DESCRIPTION) 12/08/2013 22461 XRAY KNEE RIGHT 1 OR 2 VIEWS 12/08/2013 97467 US CAROTID DOPPLER 12/26/2013 62450 ROUTINE VENIPUNCTURE 01/11/2014 CARDIOLOG YONY BARRERA 01/11/2014 62940 CBC 01/11/2014 85360 CMP 01/11/2014 [id number] GFR CALC (RESULT ONLY) 01/11/2014 60200 LIPID PANEL 01/11/2014 73050 TSH 01/11/2014 CARDIOLOG GABY RICK 01/24/2014 38968 PULMONARY FUNCTION TEST (IN- HOUSE) 01/24/2014 35101 RESPIRATORY FLOW VOLUME LOOP 01/24/2014 25946 PULMONARY EDUCATION 01/24/2014 G0437 TOBACCO-USE SOLUTIONS ARCHITECT>10MIN 01/24/2014 94678 [employer] 01/31/2014 47885 MRI SPINE (CERVICAL) W & W/ O CONTRAST 02/14/2014 09177 MRI SPINE (LUMBAR) W & W/O CONTRAST 02/14/2014 CARDIOLOG GABY RICK 02/21/2014 03.09 OTHER EXPLORATION AND DECOMPRESSION OF S MARRUFOFRANC 11/07/2014 81.37 REFUSION OF LUMBAR AND LUMBOSACRAL SPINE FRANC MARRUFO 11/07/2014 81.62 FUSION OR REFUSION OF 2-3 VERTEBRAE FRANC MARRUFO 11/07/2014 84.52 INSERTION OF RECOMBINANT BONE MORPHOGENE FRANC MARRUFO 11/07/2014 Results Test Result Range BMP - 07/28/17 14:17 GLUCOSE TNP mg/dL [facility] CBC - 07/28/17 14:17 WHITE BLOOD CELL COUNT TNP Thousand/uL [facility] - 07/28/17 14:28 WHITE BLOOD CELL COUNT 7.1 Thousand/uL 3.8-10.8 RED BLOOD CELL COUNT 4.99 Million/uL 4.20-5.80 HEMOGLOBIN 15.3 g/dL 13.2-17.1 HEMATOCRIT 44.9 % 38.5-50.0 MCV 90.0 fL 80.0-100.0 MCH 30.7 pg 27.0-33.0 MCHC 34.1 g/dL 32.0-36.0 RDW 12.4 % 11.0-15.0 PLATELET COUNT 319 Thousand/uL 140-400 MPV 8.6 fL 7.5-12.5 ABSOLUTE NEUTROPHILS 2854 cells/uL 6072-3109 ABSOLUTE LYMPHOCYTES 3422 cells/uL 850-3900 ABSOLUTE MONOCYTES 483 cells/uL 200-950 ABSOLUTE EOSINOPHILS 241 cells/uL 15-500 ABSOLUTE BASOPHILS 99 cells/uL 0-200 NEUTROPHILS 40.2 % NRG LYMPHOCYTES 48.2 % NRG MONOCYTES 6.8 % NRG EOSINOPHILS 3.4 % NRG BASOPHILS 1.4 % NRG PDM - 09 PANEL (PROFILE 1) - 11/25/17 15:16 Prescribed Drug 1 Hydrocodone NRG Creatinine 107.7 mg/dL > or=20.0 pH 6.30 4.5 - 9.0 Oxidant NEGATIVE mcg/mL <200 Amphetamines NEGATIVE ng/mL <500 medMATCH Amphetamines CONSISTENT NRG Benzodiazepines NEGATIVE ng/mL <100 medMATCH Benzodiazepines CONSISTENT NRG Marijuana Metabolite NEGATIVE ng/mL <20 medMATCH Marijuana Metab CONSISTENT NRG Cocaine Metabolite NEGATIVE ng/mL <150 medMATCH Cocaine Metab CONSISTENT NRG Opiates POSITIVE ng/mL <100 Oxycodone NEGATIVE ng/mL <100 medMATCH Oxycodone CONSISTENT NRG COMMENT NRG Codeine NEGATIVE ng/mL <50 medMATCH Codeine CONSISTENT NRG Hydrocodone 3057 ng/mL <50 medMATCH Hydrocodone CONSISTENT NRG Hydromorphone 109 ng/mL <50 medMATCH Hydromorphone CONSISTENT NRG Morphine NEGATIVE ng/mL <50 medMATCH Morphine CONSISTENT NRG Norhydrocodone 2757 ng/mL <50 medMATCH Norhydrocodone CONSISTENT NRG Barbiturates NEGATIVE ng/mL <300 medMATCH Barbiturates CONSISTENT NRG Methadone Metabolite NEGATIVE ng/mL <100 medMATCH Methadone Metab CONSISTENT NRG Phencyclidine NEGATIVE ng/mL <25 medMATCH Phencyclidine CONSISTENT NRG Methicillin resistant Staphylococcus aureus (MRSA) screening culture - 11:20 Methicillin resistant Staphylococcus aureus (MRSA) screening culture NEG NRG Complete blood count (CBC) with automated white blood cell (WBC) differential - 04/05/18 11:25 Blood leukocytes automated count (number/volume) 5.8 10*3/uL 4.3-11.0 Blood erythrocytes automated count (number/volume) 4.59 10*6/uL 4.35-5.85 Venous blood hemoglobin measurement (mass/volume) 13.9 g/dL 13.3-17.7 Blood hematocrit (volume fraction) 41 % 40-54 Automated erythrocyte mean corpuscular volume 89 [foz_us] 80-99 Automated erythrocyte mean corpuscular hemoglobin (mass per erythrocyte) 30 pg 25-34 Automated erythrocyte mean corpuscular hemoglobin concentration measurement ( mass/volume) 34 g/dL 32-36 Automated erythrocyte distribution width ratio 13.5 % 10.0-14.5 Automated blood platelet count (count/volume) 276 10*3/uL 130-400 Automated blood platelet mean volume measurement 8.9 [foz_us] 7.4-10.4 Automated blood neutrophils/100 leukocytes 49 % 42-75 Automated blood lymphocytes/100 leukocytes 39 % 12-44 Blood monocytes/100 leukocytes 8 % 0-12 Automated blood eosinophils/100 leukocytes 2 % 0-10 Automated blood basophils/100 leukocytes 2 % 0-10 Blood neutrophils automated count (number/volume) 2.9 10*3 1.8-7.8 Blood lymphocytes automated count (number/volume) 2.3 10*3 1.0-4.0 Blood monocytes automated count (number/volume) 0.5 10*3 0.0-1.0 Automated eosinophil count 0.1 10*3/uL 0.0-0.3 Automated blood basophil count (count/volume) 0.1 10*3/uL 0.0-0.1 Comprehensive metabolic panel - 04/05/18 11:25 Serum or plasma sodium measurement (moles/volume) 138 mmol/L 135-145 Serum or plasma potassium measurement (moles/volume) 4.2 mmol/L 3.6-5.0 Serum or plasma chloride measurement (moles/volume) 107 mmol/L 98-107 Carbon dioxide 22 mmol/L 21-32 Serum or plasma anion gap determination (moles/volume) 9 mmol/L 5-14 Serum or plasma urea nitrogen measurement (mass/volume) 15 mg/dL 7-18 Serum or plasma creatinine measurement (mass/volume) 0.92 mg/dL 0.60-1.30 Serum or plasma urea nitrogen/creatinine mass ratio 16 NRG Serum or plasma creatinine measurement with calculation of estimated glomerular filtration rate > NRG Serum or plasma glucose measurement (mass/volume) 92 mg/dL 70-105 Serum or plasma calcium measurement (mass/volume) 9.5 mg/dL 8.5-10.1 Serum or plasma total bilirubin measurement (mass/volume) 0.5 mg/dL 0.1-1.0 Serum or plasma alkaline phosphatase measurement (enzymatic activity/volume) 89 U/L 40-136 Serum or plasma aspartate aminotransferase measurement (enzymatic activity/ volume) 17 U/L 5-34 Serum or plasma alanine aminotransferase measurement (enzymatic activity/volume ) 23 U/L 0-55 Serum or plasma protein measurement (mass/volume) 7.1 g/dL 6.4-8.2 Serum or plasma albumin measurement (mass/volume) 4.3 g/dL 3.2-4.5 CALCIUM CORRECTED 9.3 mg/dL 8.5-10.1 PT panel in platelet poor plasma by coagulation assay - 04/05/18 11:25 Prothrombin time (PT) in platelet poor plasma by coagulation assay 13.4 s 12.2-14.7 INR in platelet poor plasma or blood by coagulation assay 1.0 0.8-1.4 Erythrocyte sedimentation rate by westergren method - 04/05/18 11:25 Erythrocyte sedimentation rate by westergren method 17 mm 0-30 Blood type T Indirect antibody screen panel - 04/05/18 11:25 ABO+Rh group AP NRG Transfusion band number TNP NRG Blood group antibody screen NEGATIVE NRG Complete urinalysis with reflex to culture - 04/05/18 11:30 Urine color determination YELLOW NRG Urine clarity determination CLEAR NRG Urine pH measurement by test strip 6.5 5-9 Specific gravity of urine by test strip 1.005 1.016- 1.022 Urine protein assay by test strip, semi-quantitative NEGATIVE NEGATIVE Urine glucose detection by automated test strip NEGATIVE NEGATIVE Erythrocytes detection in urine sediment by light microscopy NEGATIVE NEGATIVE Urine ketones detection by automated test strip NEGATIVE NEGATIVE Urine nitrite detection by test strip NEGATIVE NEGATIVE Urine total bilirubin detection by test strip NEGATIVE NEGATIVE Urine urobilinogen measurement by automated test strip (mass/volume) NORMAL NORMAL Urine leukocyte esterase detection by dipstick 1+ NEGATIVE Automated urine sediment erythrocyte count by microscopy (number/high power field) NONE NRG Automated urine sediment leukocyte count by microscopy (number/high power field ) RARE NRG Bacteria detection in urine sediment by light microscopy NEGATIVE NRG Squamous epithelial cells detection in urine sediment by light microscopy NONE NRG Crystals detection in urine sediment by light microscopy NONE NRG Casts detection in urine sediment by light microscopy NONE NRG Mucus detection in urine sediment by light microscopy NEGATIVE NRG Complete urinalysis with reflex to culture NO NRG Encounters ACCT No. Visit Date/Time Discharge Status Pt. Type Provider Facility Loc./Unit Complaint [id number] 08/12/2017 05:33:00 08/12/2017 14:21:00 DIS Outpatient FRANC MARRUFO IP L2-3 laminectomy with resection of cyst. Dx cyst bone, stenosis, osteophyte. [id number] 11/07/2014 08:26:00 Document Registration [id number] 11/25/2017 15:00:00 11/25/2017 23:59:59 CLS Outpatient [facility] [id number] 11/25/2017 15:00:00 Document Registration [id number] 07/28/2017 14:17:00 Document Registration [id number] 07/28/2017 13:40:00 Document Registration [id number] 04/05/2018 10:54:00 04/05/2018 15:00:00 DIS Outpatient VICKY WEATHERS MD [facility] PREOP OSTEOARTHRITIS RIGHT KNEE [id number] 02/19/2017 16:08:00 02/19/2017 23:59:59 CLS Outpatient MARIO DPM, KEYUR Q [facility] RAD M76.72 [id number] 02/06/2017 12:42:00 02/06/2017 23:59:59 CLS Preadmit MARIO DPM, KEYUR Q [facility] RAD M76.72 [id number] 01/14/2017 08:27:00 01/14/2017 23:59:59 CLS Outpatient PREETHI YIN [facility] RAD M54.16 [id number] 01/02/2017 10:27:00 01/02/2017 23:59:59 CLS Preadmit PREETHI YIN [facility] RAD M54.16 [id number] 11/07/2015 06:32:00 11/07/2015 10:45:00 DIS Outpatient VICKY WEATHERS MD [facility] RIGHT TORN ROTATOR CUFF [id number] 11/01/2015 10:01:00 11/01/2015 11:00:00 DIS Outpatient VICKY WEATHERS MD [facility] PREOP RIGHT TORN ROTATOR CUFF [id number] 10/03/2015 09:04:00 10/03/2015 14:00:00 DIS Outpatient VICKY WEATHERS MD [facility] SDC LABRAL LESION [id number] 09/27/2015 12:02:00 09/27/2015 12:45:00 DIS Outpatient VICKY WEATHERS MD [facility] PREOP LEFT SHOULDER LABRAL LESION [id number] 09/17/2015 15:31:00 09/17/2015 23:59:59 CLS Outpatient VICKY WEATHERS MD [facility] RAD BILAT ROTATOR CUFF TEAR [id number] 05/04/2015 13:01:00 05/04/2015 23:59:59 CLS Outpatient NEREIDA LUJAN MD [facility] CARD DDJS LUMBAR RADICULOPATHY [id number] 01/22/2014 13:20:00 01/22/2014 15:40:00 DIS Emergency REYMUNDO CHAN DO [facility] ER DIZZINESS HEADACHE [id number] 03/02/2013 15:29:00 03/02/2013 17:39:00 DIS Emergency CHARLOTTE ARTIS [facility] ER ASSUALT [id number] 04/14/2018 08:00:00 PEN Preadmit VICKY WEATHERS MD OSTEOARTHRITIS RIGHT KNEE [id number] 02/21/2014 12:15:00 02/21/2014 23:59:59 CLS Outpatient JANE CHANDLER APRN [id number] 02/14/2014 10:23:00 02/14/2014 23:59:59 CLS Outpatient JANE CHANDLER APRN [id number] 01/31/2014 10:14:00 01/31/2014 23:59:59 CLS Outpatient JANE CHANDLER APRN [id number] 01/24/2014 15:56:00 01/24/2014 23:59:59 CLS Outpatient SHANITA CANCHOLA DO [id number] 01/11/2014 12:08:00 01/11/2014 23:59:59 CLS Outpatient SHANITA CANCHOLA DO [id number] 01/05/2014 11:14:00 01/05/2014 23:59:59 CLS Outpatient JANE CHANDLER APRN [id number] 12/26/2013 15:20:00 12/26/2013 23:59:59 CLS Outpatient OSMANI MERA APRN Tessy [id number] 12/08/2013 13:23:00 12/08/2013 23:59:59 CLS Outpatient SHANITA CANCHOLA DO [id number] 12/08/2013 13:23:00 12/08/2013 23:59:59 CLS Outpatient SHANITA CANCHOLA DO [id number] 12/01/2013 12:05:00 12/01/2013 23:59:59 CLS Outpatient SHANITA CANCHOLA DO [id number] 11/03/2013 10:03:00 11/03/2013 23:59:59 CLS Outpatient JANE CHANDLER APRN [id number] 08/22/2017 15:00:48 ACT Document Registration
[2018-04-14] MEDS ORDERED: CEFUROXIME 1.5 GM (ZINACEF) VIAL ONE (06:36)
[2018-04-14] MEDS ORDERED: NS (IVPB) 50 ML ONE (06:36)
[2018-04-14] MEDS ORDERED: SCOPOLAMINE 1.5 MG (TRANSDERM-SCOP) PATCH ONE (06:43)
[2018-04-14] MEDS ORDERED: ONDANSETRON 4 MG/2 ML (SDV) Z0FRAN ONE ×2 (06:43→06:46)
[2018-04-14] MEDS ORDERED: FAMOTIDINE 20MG/2ML IV (PEPCID) ONE (06:43)
[2018-04-14] MEDS ORDERED: LIDOCAINE PF 2% 5 ML (XYLOCAINE) VIAL ONE (06:46)
[2018-04-14] MEDS ORDERED: MIDAZOLAM 2 MG/2 ML (VERSED) VIAL ONE (06:46)
[2018-04-14] MEDS ORDERED: SEVOFLURANE (ULTANE) 15 ML INHAL SOLN ONE ×4 (06:46→09:00)
[2018-04-14] MEDS ORDERED: DEXAMETHASONE 10 MG/ML (DECADRON) 1 ML VIAL ONE (06:46)
[2018-04-14] MEDS ORDERED: fentaNYL INJECTION 100 MCG/2 ML AMP ONE (06:46)
[2018-04-14] MEDS ORDERED: proPOfol 200 MG/20 ML (DIPRIVAN) VIAL IV ONE (06:46)
[2018-04-14] MEDS ORDERED: CEFUROXIME INJECTION 1,500 MG in NS (IVPB) 50 ML IV ONE (07:00)
[2018-04-14] MEDS: LACTATED RINGERS 1,000 ML IV PRN ×2 (07:02→08:09)
[2018-04-14] MEDS ORDERED: morphine PCA 100 MG/100 ML BAG IV PRN (07:30)
[2018-04-14] MEDS ORDERED: ACETAMINOPHEN 325 MG TABLET PO PRN (07:30)
[2018-04-14] MEDS ORDERED: CATHETER FLUSH 10 ML SYR IV PRN (07:30)
[2018-04-14] MEDS ORDERED: diphenhydrAMINE 50 MG/ML INJ (BENADRYL) IVP PRN (07:30)
[2018-04-14] MEDS ORDERED: ONDANSETRON 4 MG/2 ML (SDV) Z0FRAN IVP PRN ×2 (07:30→09:30)
--- NOTE | 2018-04-14 07:30 | Progress Note-Pre Operative ---
Pre-Operative Progress Note H&P Reviewed The H&P was reviewed, patient examined and no changes noted. Date Seen by Provider: Apr 14, 2018 Time Seen by Provider: 07:22 Date H&P Reviewed: Apr 14, 2018 Time H&P Reviewed: 07:11 Pre-Operative Diagnosis: right knee primary osteoarthritis VICKY WEATHERS MD Apr 14, 2018 07:30
[2018-04-14] MEDS ORDERED: LACTATED RINGERS 1,000 ML IV PRN (07:32)
--- NOTE | 2018-04-14 07:32 | Progress Note-Post Operative ---
Post-Operative Progess Note Surgeon (s)/Strip Feeder (s) Surgeon VICKY WEATHERS MD Strip Feeder: Danie Wynn Pre-Operative Diagnosis right knee primary osteoarthritis Post-Operative Diagnosis right knee primary osteoarthritis Procedure & Operative Findings Date of Procedure 04/14/18 Procedure Performed/Findings right total knee arthroplasty Anesthesia Type GETA plus regional Estimated Blood Loss Estimated blood loss (mL): minimal Specimens/Packing Specimens Removed none Packing: none VICKY WEATHERS MD Apr 14, 2018 07:32
[2018-04-14] MEDS ORDERED: OXYC1TAB87 PO (07:33)
--- NOTE | 2018-04-14 07:35 | D/C HH Face to Face Order ---
D/C Face to Face Orders Instructions for Patient [facility], Patient Instructions/FollowUp: three weeks Physician to follow Patient: three weeks Discharge Diet for Home: Regular Diet Patient Data-Allergies,Ht & Wt Patient Allergies: Coded Allergies: hydromorphone (Verified Allergy, Unknown, "makes me lose my mind", 09/27/15 ) Height (Feet): 5 Height (Inches): 11.00 Weight (Pounds): 218 Weight (Ounces): 8.0 Home Health Need/Face to Face Date of Face to Face: Apr 14, 2018 Clinical Findings: Instability, Muscle weakness, Pain with ambulation, Unsteady gait I have seen Pt [id number]: Yes Discharged To: Home Diagnosis/Conditions: right total knee arthroplasty Patient is Homebound due to: John fall risk due to instabilty, Muscle weakness Homebound Status Due to the above stated illness, injury or surgical procedure (medical condition or diagnosis) and associated clinical findings, the patient is homebound because of his/her inability to leave home except with aid of a supportive device and/or person AND leaving the home requires a considerable and taxing effort or is medically contraindicated. Pt req the following assistanc: Walker Home Health Nursing Orders Home Health Services Order: Physical Therapy-Evaluate & Treat Home Health Infusion Therapy Line Start Date: Apr 14, 2018 Line Start Time: 624 Line Type: Saline Lock Site Location: Antecubital Therapy Orders Therapy Orders: Physical Therapy, PT to assess for OT Therapy Specific Orders: Eval assistive deivces, Teach enviro modifications/ safety, Gait training, Increase strength/endurance, Provider maintenance therapy , Restore ROM (DC right knee marcelo and apply steri strips 04/28/18) Certify Stmt I certify that this patient is under my care and that I, a nurse practitioner or a physician; a miller head assistant wet process working with me, had a face to face encounter that - meets the physician face to face encounter requirements with this patient as dated. VICKY WEATHERS MD Apr 14, 2018 07:35
--- NOTE | 2018-04-14 07:41 | Anesthesia-Peripheral Nerve Bl ---
Procedure Start/Stop Time Date of Procedure: Apr 14, 2018 Start Time: 07:15 Referring Physician: Daphnie Stop Time: 07:28 Peripheral Nerve Block Peripheral Nerve Blockade Risk/Benefits/Alternatives discussed, including IV injection leading to complications or seizures, nerve irritation or damage, pneumothorax, total spinal anesthesia, injection, and/or bleeding. Side Confirmed: RIGHT Indication: Req Pain Mgmt by Surgeon Specifically requested for management of pain by: Physician requested: Daphnie Patient Condition Vital Signs see nurses notes Patient Condition: Awake Indication post total knee arthroplasty pain management Procedure Prepartation: Chlorhexidine Position: Supine Hand Stone Polisher: 22g stimiplex 3 05/25 in Technique: Injection through needle, Ultrasound (Good visualization of sartorious muscle, fem artery/nerve. Visualized needle advancement throughout, good spread with LA injection. Pt tolerated well. ) Sedation Given: Fentanyl (50mg), Midazolam (2mg) Injectate: bupivacaine Concentration %: .50 Volume (ml): 20 Narrative Injection was made incrementally with constant monitoring. Events Patient Conditon Post Peripheral Nerve Block Post Peripheral Nerve Block Vital Signs: Blood Pressure: Systolic Diastolic Heart Rate TRAVIS FOSTER CRNA Apr 14, 2018 07:40
[2018-04-14] MEDS ORDERED: ONDANSETRON 4 MG/2 ML (SDV) Z0FRAN IV ONE (07:45)
[2018-04-14] MEDS ORDERED: SCOPOLAMINE 1.5 MG (TRANSDERM-SCOP) PATCH TOP ONE (07:45)
[2018-04-14] MEDS ORDERED: FAMOTIDINE 20MG/2ML IV (PEPCID) IV ONE (07:45)
[2018-04-14] MEDS ORDERED: TRANEXAMIC ACID 100 MG/ML 10 ML INJECTION IV ONE (07:59)
[2018-04-14] MEDS ORDERED: INTRA-ARTICULAR IU ONE ×5 (08:00)
[2018-04-14] MEDS ORDERED: BUPIVACAINE 0.5% 30 ML (SENSORCAINE) VIAL ONE (08:09)
[2018-04-14] MEDS ORDERED: fentaNYL INJECTION 100 MCG/2 ML AMP IVP ONE (09:30)
[2018-04-14] MEDS ORDERED: morphine INJ 10 MG/ML 1ML (SYR OR VIAL) IVP ONE (09:30)
[2018-04-14] MEDS ORDERED: morphine INJ 10 MG/ML 1ML (SYR OR VIAL) ONE (09:36)
--- NOTE | 2018-04-14 09:44 | Progress Note-Standard ---
Standard Progress Note Progress Notes/Assess & Plan Date Seen by a Provider: Apr 14, 2018 Time Seen by a Provider: 09:43 Progress/Assessment & Plan post op check No complaints radiographs--HW well positioned. No fractures RLE--2 plus DP pulse with brisk cap refill. Intact DF and PF of toes and ankle with intact sensation to light touch throughout s/p RTKA mobilize as able VICKY WEATHERS MD Apr 14, 2018 09:44
--- NOTE | 2018-04-14 10:01 | Diagnostic Imaging Report ---
INDICATION: Right knee replacement. TIME OF EXAMINATION: 09:32 a.m. FINDINGS: Two views of right knee demonstrate postop changes of total knee arthroplasty. Prosthetic elements are in good position. No fracture loosening is seen. Overlying skin marcelo are noted. IMPRESSION: Satisfactory postop appearance to the right knee. Dictated by: Dictated on workstation # [id number]
[2018-04-14] MEDS ORDERED: meTOprolol 5 MG/5 ML (LOPRESSOR) VIAL ONE (10:05)
[2018-04-14] MEDS ORDERED: meTOprolol 5 MG/5 ML (LOPRESSOR) VIAL IV ONE (10:15)
[2018-04-14 10:30] VITALS: BP 177/97
[2018-04-14] MEDS: SENNA W/DOCUSATE (SENOKOT S) TABLET PO SCH ×2 (11:06→21:14)
[2018-04-14] MEDS: NS IV 1000 ML 1,000 ML IV SCH ×2 (11:06→15:28)
[2018-04-14] MEDS ORDERED: FLU QUADRIvalent (5+ YOA) 2018-2019 (AFLURIA) 0.5 ML IM ONE (11:30)
[2018-04-14 12:00] VITALS: BP 164/99
[2018-04-14] MEDS: oxyCODONE/APAP 5/325MG (PERCOCET 5) TABLET PO PRN ×5 (12:01→23:30)
--- NOTE | 2018-04-14 13:59 | Physical Therapy Evaluation ---
PT Evaluation-General Medical Diagnosis Admission Date Apr 14, 2018 at 05:52 Medical Diagnosis: R TKR Onset Date: Apr 14, 2018 Therapy Diagnosis Therapy Diagnosis: impaired mobility, strength, endurance, ROM Height/Weight Height (Feet): 5 Height (Inches): 11.00 Weight (Pounds): 218 Weight (Ounces): 8.0 Precautions Precautions/Isolations: Fall Prevention, Standard Precautions Weight Bear Status Right Lower Extremity: Right Weight Bearing/Tolerated Referral Physician: Jason Eller MD Reason for Referral: Evaluation/Treatment Medical History Additional Medical History Hyperlipidemia, hypertension, chronic back pain, COPD, carotid disease, osteoarthritis. Current History Right total knee replacement on 04/14/18 Reviewed History: Yes Social History Current Living Status: Spouse Prior/Core FIM Prior Level of Function Functional [place] Measure 0=Not Assessed/NA 4=Minimal Assistance 1=Total Assistance 5=Supervision or Setup 2=Maximal Assistance 6=Modified [place] 3=Moderate Assistance 7=Complete [place] IRFPAI Quality Coding Scale 6 Independent with activity with or without an assistive device 5 Patient requires set up or clean up by helper. Patient completes activity by themselves 4 Supervision or touching assist (CGA). [place] provide cues , steadying assist 3 The helper provides less than half the effort to complete the activity 2 The helper provides more than half the effort to complete the activity 1 Dependent. The helper does all the effort to complete an activity 7 Patient refused to complete or attempt activity 9 The patient did not perform the activity before the current illness or injury 88 Not attempted due to Medical conditions or safety concerns Functional Abilities and Goals 3. Independent: Patient completed the activities by him/herself, with or without an assistive device, with no assistance from a helper. 2. Needed Some Help: Patient needed partial assistance from another person to complete activities. 1. Dependent: A helper completed the activities for the patient. 8. Unknown: 9. Not Applicable: Bed Mobility: 7 Transfers (B,C,W/C) (FIM): 7 Gait: 7 Stairs: 7 Indoor Mobility (Ambulation): Independent Stairs: Independent Prior Devices Use: None PT Evaluation-Current Subjective Pt awake in bed watching tv with spouse. Pt agreed to evaluation by PT. Pain Numeric Pain Scale: 8 Location: Right Location Body Site: Knee Pain Description: Acute Objective Patient Orientation: Normal For Age Problem Solving: Good Attachments: SCD's, Polar Pack, IV ROM/Strength ROM Upper Extremities WNL ROM Lower Extremities WNL on L R knee flexion 95, Knee extension 2 Strength Upper Extremities NT Strength Lower Extremities WNL on left, right NT Integumentary/Posture Bowel Incontinence: No Bladder Incontinence: No Neuromuscular (Tone, Coordination, Reflexes) NT Sensory Vision: Wears Glasses Hearing: Functional Sensation Right Upper Extremit: Intact Sensation Left Upper Extremity: Intact Sensation Right Lower Extremit: Intact Sensation Left Lower Extremity: Intact Transfers Functional [place] Measure 0=Not Assessed/NA 4=Minimal Assistance 1=Total Assistance 5=Supervision or Setup 2=Maximal Assistance 6=Modified [place] 3=Moderate Assistance 7=Complete [place] Transfers (B, C, W/C) (FIM): 5 Scootin Rollin Supine to/from Sit: 5 Sit to/from Stand: 5 Gait Mode of Locomotion: Walk Anticipated Mode of Locomotion: Walk Gait (FIM): 5 Distance (FIM): 3=150 ft Distance: 150' Gait Level of Assist: 5 Gait Persons Needed: 1 Gait Assistive Device: FWW Comments/Gait Description Antalgic ambulation with flexed right knee, decreased stance time on right knee. Balance Sitting Static: Normal Sitting Dynamic: Normal Standing Static: Good Standing Dynamic: Good Treatment LE exercises: SLR, Quad Set, Heel slides Assessment/Needs Pt was able to ambulate for 150' with a FWW requiring SBA. Patient reported that pain was an 8 out of 10 during therapy. Patient returned to bed and performed heel slides, quad sets and SLRs before being set up on CPM. CPM setting are at 75 degrees flexion with -2 degrees of extension. Rehab Potential: Good PT Clinical Case Manager Goals Senior Care Goals PT Senior Care Goals Time Frame: Apr 21, 2018 Transfers (B,C,W/C) (FIM): 6 Gait (FIM): 6 Gait distance (FIM): 3=150 ft Distance: 200' Gait Level of Assist: 6 Gait Assistive Device: FWW PT Plan Problem List Problem List: Activity Tolerance, Functional Strength, Safety, Balance, Gait, Transfer, Bed Mobility, ROM Treatment/Plan Treatment Plan: Continue Plan of Care Treatment Plan: Bed Mobility, Education, Functional Activity Jody, Functional Strength, Gait, Safety, Therapeutic Exercise, Transfers Treatment Duration: Apr 21, 2018 Frequency: 11 times per week Estimated Hrs Per Day: .25 hour per day Patient and/or Family Agrees t: Yes Safety Risks/Education Patient Education: Gait Training, Transfer Techniques, Correct Positioning, Safety Issues Teaching Recipient: Patient Teaching Methods: Demonstration, Discussion Response to Teaching: Reinforcement Needed Discharge Recommendations Plan Patient will perform bed mobility and transfer training, balance and endurance training, functional strengthening, stair training, gait training, and education to improve functional mobility and independence at home. Therapy D/C Recommendations: Home w/ Family Support Time/GCodes Time In: 1312 Time Out: 1352 Total Billed Treatment Time: 40 Total Billed Treatment 1 Visit EVM - 15 EX - 15 GT - 10 TAMRA WOMACK PT Apr 14, 2018 13:59
--- NOTE | 2018-04-14 14:27 | OPERATIVE REPORT ---
DATE OF SERVICE: 04/14/2018 PREOPERATIVE DIAGNOSIS: Right knee primary osteoarthritis. POSTOPERATIVE DIAGNOSIS: Right knee primary osteoarthritis. PROCEDURE: Right total knee arthroplasty. SURGEON: VICKY WEATHERS MD HOT STICK WORKER: Danie Wynn, who assisted throughout the procedure and closed the incision. ANESTHESIA: Regional nerve block plus general endotracheal by Heidi Frederick CRNA. TOURNIQUET TIME: Approximately 72 minutes at 300 mmHg. ESTIMATED BLOOD LOSS: Minimal. DRAINS: None. COMPLICATIONS: None. POSTOPERATIVE PLANS: Routine total knee arthroplasty protocol. MATERIALS: MicroPort cemented size 6 femur, cemented size 6 tibia with 10 mm insert and cemented size 32 patellar button. STATEMENT OF MEDICAL NECESSITY: The patient is a 57-year-old gentleman with longstanding progressive right knee pain. He has undergone treatment with injections, arthroscopy and anti-inflammatories without relief. Radiographs revealed severe medial and patellofemoral arthrosis. Due to functional impairment and failure to improve with conservative measures, the patient elected to proceed with surgical intervention. DESCRIPTION OF PROCEDURE: After risks and benefits of procedure were discussed and questions were answered, an informed consent was signed and placed on the chart. The operative site was confirmed in the preoperative holding area initialed by the surgeon. The patient was then transported to the operating room and after adequate levels of regional plus general endotracheal anesthetic were obtained, a timeout was called confirming the operative site. The right lower extremity was prepped and draped in the usual sterile fashion. With the leg elevated and the knee flexed, the tourniquet was inflated to 300 mmHg. A standard anterior approach was utilized. Hemostasis was obtained with cautery and medial parapatellar arthrotomy was performed leaving 1 cm cuff on the patella for later reapproximation. A portion of the fat pad was resected and a subperiosteal release was carefully performed in the proximal medial tibia with a curved osteotome being careful to stay on the bony surface. The ACL was resected. Intramedullary guide was passed into the femur and the distal cutting block was placed. The distal cut was made and the femur was sized to a size 6. The 6 cutting block was placed parallel to the epicondylar axis and the cuts were made from posterior to anterior. A subperiosteal release was then carefully performed on the posterior distal femur, being careful to stay on the bony surface with a curved osteotome. The intramedullary guide was then passed into the tibia. The cutting block was placed. The drop monica transected the intermalleolar axis and the cut was made. The baseplate trial was placed and the drop monica transected the intermalleolar axis. This was pinned into position and then prepared with a drill and keel punch. The femoral trial was placed and the trochlear cut was made. The patella was then prepared using the free hand technique by resecting 10 mm off the undersurface. The peg guide was placed and the peg holes were drilled. The trials were inserted with 10 mm insert. Full extension was easily obtained, 120 degrees of flexion with gravity was easily obtained. There was no anterior/posterior or medial/lateral laxity in flexion or extension. The trials were removed. The joint was irrigated with pulse lavage. The periarticular block was placed in the posterior capsule, medial and lateral retinaculum and extensor mechanism as well as the subcutaneous tissues. The bone ends were irrigated and dried. The tibial baseplate was cemented into position. Excessive cement was removed. The superior surface was irrigated and dried. The polyethylene insert was placed. The distal femur was irrigated and dried. The femoral prosthesis was cemented into position. Excessive cement was removed. The knee was brought out in full extension until the cement had cured. The undersurface of the patella was irrigated and dried. The patellar button was cemented in position. Excessive cement was removed. Once the cement had cured, the knee was taken through a range of motion and full extension was easily obtained, 120 degrees of flexion with gravity was easily obtained. The patella tracked well. There was no anterior/posterior or medial/lateral laxity in flexion or extension. The joint was further irrigated with pulse lavage. The arthrotomy was closed with #2 Tevdek in [id number] interrupted fashion. The knee was then flexed and no undue tension was noted at the repair site. The subcutaneous tissues were irrigated using a total of 6 liters throughout the procedure. A 0 Vicryl was used for the deep subcutaneous tissue, 2-0 Vicryl for the superficial subcutaneous tissue, marcelo used on the skin. A soft dressing was applied. The tourniquet was deflated and the patient was transferred to the recovery room, awake and stable condition. Job ID: [id number] DocumentID: [id number] Dictated Date: 04/14/2018 09:26:35 Facilities Management Executive Date: 04/14/2018 14:27:00 Dictated By: VICKY WEATHERS MD
[2018-04-14] MEDS: CEFUROXIME INJECTION 750 MG in NS (IVPB) 50 ML IV SCH ×2 (15:28→23:30)
[2018-04-14 16:05] VITALS: BP 147/84
[2018-04-14] MEDS ORDERED: NICOTINE 21 MG (NICODERM) PATCH ONE (16:35)
[2018-04-14] MEDS ORDERED: CYCLOBENZAPRINE 10 MG (FLEXERIL) TAB PO PRN (17:15)
[2018-04-14] MEDS ORDERED: DICLOFENAC SODIUM 1 GM TP PRN (17:15)
[2018-04-14] MEDS ORDERED: FLUTICASONE NASAL SPRAY (FLONASE) 16 GM BTL NS PRN (17:15)
[2018-04-14] MEDS ORDERED: NON-FORMULARY MEDICATION 1 EA EA (Tiotropium Br/Olodaterol HCl (Stiolto Respimat Inhal Spr IH PRN (17:15)
[2018-04-14] MEDS ORDERED: DICLOFENAC 1% GEL 100 GM (VOLTAREN) TUBE TOP PRN (17:30)
[2018-04-14 19:40] VITALS: BP 159/84
[2018-04-14] MEDS ORDERED: NON-FORMULARY MEDICATION 1 EA EA (Metoprolol Tartrate 100 MG) PO SCH (21:00)
[2018-04-14] MEDS ORDERED: NON-FORMULARY MEDICATION 1 EA EA (Lansoprazole (Prevacid) 30 MG) PO SCH (21:00)
[2018-04-14] MEDS: meTOprolol TARTRATE 50 MG (LOPRESSOR) TAB PO SCH (21:13)
[2018-04-14] MEDS: ATORVASTATIN 80 MG (LIPITOR) TABLET PO SCH (21:14)
[2018-04-14] MEDS: PANTOPRAZOLE 40 MG (PROTONIX) TAB PO SCH (21:14)
[2018-04-14] MEDS: GABAPENTIN 300 MG (NEURONTIN) CAP PO SCH (21:14)
[2018-04-15 00:26] VITALS: BP 166/83
[2018-04-15] MEDS: NS IV 1000 ML 1,000 ML IV SCH (00:45)
[2018-04-15] MEDS: oxyCODONE/APAP 5/325MG (PERCOCET 5) TABLET PO PRN ×9 (01:41→22:57)
[2018-04-15 04:03] VITALS: BP 142/69
[2018-04-15] MEDS: MULTIVIT W/MINERALS TAB (THERAGRAN M) PO SCH (05:58)
[2018-04-15 06:13] LABS: HEMOGLOBIN 11.3 G/DL (13.3-17.7)
--- NOTE | 2018-04-15 07:03 | Anesthesia-General Post-Op ---
General Patient Condition Mental Status/LOC: Same as Preop Cardiovascular: Satisfactory Nausea/Vomiting: Absent Respiratory: Satisfactory Pain: Controlled Complications: Absent Post Op Complications Complications None Follow Up Care/Instructions Patient Instructions None needed. Anesthesia/Patient Condition Patient Condition Patient is doing well, no complaints, stable vital signs, no apparent adverse anesthesia problems. No complications reported per nursing. VALE GRAVES CRNA Apr 15, 2018 07:02
--- NOTE | 2018-04-15 07:56 | Progress Note-Standard ---
Standard Progress Note Progress Notes/Assess & Plan Date Seen by a Provider: Apr 15, 2018 Time Seen by a Provider: 07:55 Progress/Assessment & Plan post op check No complaints radiographs--HW well positioned. No fractures RLE--2 plus DP pulse with brisk cap refill. Intact DF and PF of toes and ankle with intact sensation to light touch throughout s/p RTKA mobilize as able Final Diagnosis no complaints Vital Signs Date Time Temp Pulse Resp B/P (MAP) Pulse Ox O2 Delivery O2 Flow Rate FiO2 04/15/18 04:03 98.7 90 20 142/69 (93) 96 Room Air 04/15/18 00:26 98.4 97 18 166/83 (110) 95 Room Air 04/14/18 21:00 Room Air 04/14/18 19:40 98.5 106 16 159/84 (109) 97 Room Air 04/14/18 17:33 20 04/14/18 16:05 97.3 89 20 147/84 (105) 95 Room Air 04/14/18 12:00 97.1 85 20 164/99 (120) 98 Nasal Cannula 2.00 04/14/18 10:30 97.8 75 22 177/97 (123) 98 Nasal Cannula 2.00 I & O 04/15/18 07:00 Intake Total 6230 ml Output Total 5100 ml Balance 1130 ml Laboratory Tests Test 04/15/18 06:00 Range/Units Hemoglobin 11.3 L 13.3-17.7 G/DL Hematocrit 34 L 40-54 % RLE--dressing intact. NVI distally. No calf tenderness s/p RTKA doing well PT/OT VICKY WEATHERS MD Apr 15, 2018 07:56
[2018-04-15 08:00] VITALS: BP 171/90
[2018-04-15] MEDS ORDERED: morphine INJ 4 MG/ML 1 ML (VIAL/SYRINGE) IVP PRN (08:00)
[2018-04-15] MEDS: LORATADINE (CLARITIN) 10 MG TAB PO SCH (08:01)
[2018-04-15] MEDS: meTOprolol TARTRATE 50 MG (LOPRESSOR) TAB PO SCH ×2 (08:01→20:10)
[2018-04-15] MEDS: amLODIPine 10 MG (NORVASC) TAB PO SCH (08:01)
[2018-04-15] MEDS: ENOXAPARIN 30 MG/0.3 ML (LOVENOX) SYR SC SCH ×2 (08:01→20:10)
[2018-04-15] MEDS: GABAPENTIN 300 MG (NEURONTIN) CAP PO SCH ×3 (08:01→20:10)
[2018-04-15] MEDS: SENNA W/DOCUSATE (SENOKOT S) TABLET PO SCH ×2 (08:02→20:10)
[2018-04-15] MEDS ORDERED: ASPIRIN E.C. 81 MG (ECOTRIN) TAB PO SCH ×2 (08:05→09:00)
[2018-04-15] MEDS ORDERED: AMLODIPINE BESYLATE 10 MG PO SCH (09:00)
[2018-04-15] MEDS ORDERED: NON-FORMULARY MEDICATION 1 EA EA (Cetirizine HCl 10 MG) PO SCH (09:00)
--- NOTE | 2018-04-15 09:49 | Physical Therapy Daily Note ---
PT Daily Note-Current Subjective Pt awake in room watching tv with his spouse when PT arrived. Pt agreed to get up for therapy. Pain Numeric Pain Scale: 6 Location: Right Location Body Site: Knee Pain Description: Acute Mental Status Patient Orientation: Normal For Age Attachments: IV Transfers Functional [place] Measure 0=Not Assessed/NA 4=Minimal Assistance 1=Total Assistance 5=Supervision or Setup 2=Maximal Assistance 6=Modified [place] 3=Moderate Assistance 7=Complete [place] IRFPAI Quality Coding Scale 6 Independent with activity with or without an assistive device 5 Patient requires set up or clean up by helper. Patient completes activity by themselves 4 Supervision or touching assist (CGA). [place] provide cues , steadying assist 3 The helper provides less than half the effort to complete the activity 2 The helper provides more than half the effort to complete the activity 1 Dependent. The helper does all the effort to complete an activity 7 Patient refused to complete or attempt activity 9 The patient did not perform the activity before the current illness or injury 88 Not attempted due to Medical conditions or safety concerns Transfers (B, C, W/C) (FIM): 5 Scootin Rollin Supine to/from Sit: 5 Sit to/from Stand: 5 Weight Bearing Right Lower Extremity: Right Weight Bearing/Tolerated Gait Training Gait (FIM): 5 Distance (FIM): 3=150 ft Distance: 400' Gait Level of Assist: 5 Gait Persons Needed: 1 Gait Assistive Device: FWW Exercises Supine Ex: Quad Set, Heel Slides, Short Arc Quads, Straight leg raise Seated Therapy Exercises: Long arc quads, Hamstring Curls Seated Reps: 20 Assessment Current Status: Excellent Progress Pt is able to ambulate for 400' with FWW requiring SBA. Patient reported a 6/10 pain rating and said that was a normal day for him. Patient does not show any signs of fatigue and needs to be reminded to slow down throughout treatment. Patient returned to bed and completed LE exercises before having leg placed in CPM. CPM settings currently at 85 degrees knee flexion and -1 knee extension. PT Prison Goals Environmental Services Technician Goals PT Environmental Services Technician Goals Time Frame: Apr 21, 2018 Transfers (B,C,W/C) (FIM): 6 Gait (FIM): 6 Gait distance (FIM): 3=150 ft Distance: 200' Gait Level of Assist: 6 Gait Assistive Device: FWW PT Plan Problem List Problem List: Activity Tolerance, Functional Strength, Safety, Balance, Gait, ROM Treatment/Plan Treatment Plan: Continue Plan of Care Treatment Plan: Bed Mobility, Education, Functional Activity Jody, Functional Strength, Gait, Safety, Therapeutic Exercise, Transfers Treatment Duration: Apr 21, 2018 Frequency: 11 times per week Estimated Hrs Per Day: .5 hour per day Patient and/or Family Agrees t: Yes Time/GCodes Time In: 858 Time Out: 923 Total Billed Treatment Time: 25 Total Billed Treatment 1 Visit GT - 10' EX - 15' LUCIA ROSA PT Apr 15, 2018 09:49
[2018-04-15 12:00] VITALS: BP 160/74
--- NOTE | 2018-04-15 13:40 | Physical Therapy Daily Note ---
PT Daily Note-Current Subjective Pt awake in bed watching tv when PT entered room. PT agreed to get up for a walk. Pain Numeric Pain Scale: 6 Location: Right Location Body Site: Knee Pain Description: Acute Mental Status Patient Orientation: Normal For Age Attachments: Polar Pack Transfers Functional [place] Measure 0=Not Assessed/NA 4=Minimal Assistance 1=Total Assistance 5=Supervision or Setup 2=Maximal Assistance 6=Modified [place] 3=Moderate Assistance 7=Complete [place] IRFPAI Quality Coding Scale 6 Independent with activity with or without an assistive device 5 Patient requires set up or clean up by helper. Patient completes activity by themselves 4 Supervision or touching assist (CGA). [place] provide cues , steadying assist 3 The helper provides less than half the effort to complete the activity 2 The helper provides more than half the effort to complete the activity 1 Dependent. The helper does all the effort to complete an activity 7 Patient refused to complete or attempt activity 9 The patient did not perform the activity before the current illness or injury 88 Not attempted due to Medical conditions or safety concerns Transfers (B, C, W/C) (FIM): 5 Scootin Rollin Supine to/from Sit: 5 Sit to/from Stand: 5 Weight Bearing Right Lower Extremity: Right Weight Bearing/Tolerated Gait Training Gait (FIM): 5 Distance (FIM): 3=150 ft Distance: 400' Gait Level of Assist: 5 Gait Persons Needed: 1 Gait Assistive Device: FWW Stair Training Stair Training: Handrails/: 2 handrails Stairs (FIM): 2 #of Steps: 3 Stairs: Pattern: Step to Level of Assist: 5 Exercises Supine Ex: Quad Set, Heel Slides, Straight leg raise Supine Reps: 20 Seated Therapy Exercises: Long arc quads, Hamstring Curls Seated Reps: 20 Assessment Current Status: Excellent Progress Pt is able to ambulate for 400' with a FWW requiring SBA. Patient does not show any signs of fatigue and reports that he had a 6/10 pain rating. Patient was taught how to ascend and descend stairs with a FWW prior to returning to room. Patient performed LE exercises at EOB and in supine. plan dismissal to home tomorrow a.m. PT Short Term Goals Short Term Goals Time Frame: Apr 15, 2018 PT Transportation Solutions Manager Goals Group Home Goals PT Transportation Solutions Manager Goals Time Frame: Apr 21, 2018 Transfers (B,C,W/C) (FIM): 6 Gait (FIM): 6 Gait distance (FIM): 3=150 ft Distance: 200' Gait Level of Assist: 6 Gait Assistive Device: FWW PT Plan Problem List Problem List: Activity Tolerance, Functional Strength, Safety, Balance, Gait Treatment/Plan Treatment Plan: Continue Plan of Care Treatment Plan: Bed Mobility, Education, Functional Activity Jody, Functional Strength, Gait, Safety, Therapeutic Exercise, Transfers Treatment Duration: Apr 21, 2018 Frequency: 11 times per week Estimated Hrs Per Day: .5 hour per day Patient and/or Family Agrees t: Yes Time/GCodes Time In: 1248 Time Out: 1311 Total Billed Treatment Time: 23 Total Billed Treatment 1 Visit GT - 13 EX - 10 LUCIA ROSA PT Apr 15, 2018 13:40
--- NOTE | 2018-04-15 14:05 | Occupational Therapy Eval ---
OT Evaluation-General/PLF Medical Diagnosis Admission Date Apr 14, 2018 at 05:52 Medical Diagnosis: R TKR Onset Date: Apr 14, 2018 Therapy Diagnosis Therapy Diagnosis: decr self care, decr funct mobiliy Height/Weight Height (Feet): 5 Height (Inches): 11.00 Weight (Pounds): 218 Weight (Ounces): 8.0 Precautions Precautions/Isolations: Standard Precautions Safety Interventions: None Weight Bear Status Weight Bearing Restriction: Weight Bearing/Tolerated Location Restriction: R LE Referral Physician: Jason Eller MD Referral Reason: Evaluation/Treatment Medical History Pertinent Medical History: COPD, HTN, OA Additional Medical History Chronic back pain. Carotid disease. Cervical and lumbar spine surgeries. R and L shoulder surgeries. Current History Elective R TKA Reviewed History: Yes Social History Home: [facility] Current Living Status: Spouse ADL-Prior Level of Function Functional [place] Measure 0=Not Assessed/NA 4=Minimal Assistance 1=Total Assistance 5=Supervision or Setup 2=Maximal Assistance 6=Modified [place] 3=Moderate Assistance 7=Complete [place] IRFPAI Quality Coding Scale 6 Independent with activity with or without an assistive device 5 Patient requires set up or clean up by helper. Patient completes activity by themselves 4 Supervision or touching assist (CGA). [place] provide cues , steadying assist 3 The helper provides less than half the effort to complete the activity 2 The helper provides more than half the effort to complete the activity 1 Dependent. The helper does all the effort to complete an activity 7 Patient refused to complete or attempt activity 9 The patient did not perform the activity before the current illness or injury 88 Not attempted due to Medical conditions or safety concerns Functional Abilities and Goals 3. Independent: Patient completed the activities by him/herself, with or without an assistive device, with no assistance from a helper. 2. Needed Some Help: Patient needed partial assistance from another person to complete activities. 1. Dependent: A helper completed the activities for the patient. 8. Unknown: 9. Not Applicable: ADL PLOF Comments Pt reported that he has been able to manage his basic self care needs, just limited at times by pain. He is disabled and still drives. Self Care: Independent Functional Cognition: Independent DME/Equipment: Bath Bench, Grab Bars, Shower, Tall Toilet DME/Equipment Comments "Handicapped bathroom" OT Current Status Subjective Pt seen in room, up in bed, agreeable to OT. Pain rated as "I can manage" Appearance Alert, cooperative Mental Status/Objective Patient Orientation: Person, Place, Time, Situation Attachments: Polar Pack, Saline Lock, SCD's Current Upper Extremity ROM Grossly WFL per pt report Upper Extremity Strength Grossly WFL per pt report ADL-Treatment ADL-Current Pt walked 400 feet SBA, FWW with PT. Has not been up to toilet yet. Pt education modified techniques for bathing, dressing, toileting, with verbal understanding. Pt anticipates DC to home tomorrow Functional [place] Measure 0=Not Assessed/NA 4=Minimal Assistance 1=Total Assistance 5=Supervision or Setup 2=Maximal Assistance 6=Modified [place] 3=Moderate Assistance 7=Complete [place] IRFPAI Quality Coding Scale 6 Independent with activity with or without an assistive device 5 Patient requires set up or clean up by helper. Patient completes activity by themselves 4 Supervision or touching assist (CGA). [place] provide cues , steadying assist 3 The helper provides less than half the effort to complete the activity 2 The helper provides more than half the effort to complete the activity 1 Dependent. The helper does all the effort to complete an activity 7 Patient refused to complete or attempt activity 9 The patient did not perform the activity before the current illness or injury 88 Not attempted due to Medical conditions or safety concerns Education OT Patient Education: Modified ADL techniques, Purpose of tx/functional activities, Rehab process, Transfer techniques Teaching Recipient: Patient, Family Teaching Methods: Discussion Response to Teaching: Verbalize Understanding OT Fdc Goals Fdc Goals Time Frame: Apr 15, 2018 Pt educ modified techniques for bathing, dressing, toileting - goal met 1=Demonstrate adherence to instructed precautions during ADL tasks. 2=Patient will verbalize/demonstrate understanding of assistive devices/ modifications for ADL. 3=Patient will improve strength/tolerance for activity to enable patient to perform ADL's. OT Education/Plan Problem List/Assessment Assessment: Impaired Self-Care Skills Pt education provided in modified techniques, with verbal understanding. No other OT needs identified. DC OT Discharge Recommendations Plan/Recommendations: Discharge/Goals Met (to patient satisfaction) Treatment Plan/Plan of Care Treatment,Training & Education: Yes Patient would benefit from OT for education, treatment and training to promote independence in ADL's, mobility, safety and/or upper extremity function for ADL' s. Plan of Care: ADL Retraining Treatment Duration: Apr 15, 2018 Frequency: 1 time per week Estimated Hrs Per Day: .25 hour per day Agreement: Yes Rehab Potential: Good Time/GCodes Start Time: 13:22 Stop Time: 13:37 Total Time Billed (hr/min): 15 Billed Treatment Time visit, 10 minutes OT evaluation low intensity, 5 minutes ADL education CONRADO EL OT Apr 15, 2018 14:05
[2018-04-15 15:41] VITALS: BP 129/71
[2018-04-15] MEDS: NICOTINE 21 MG (NICODERM) PATCH TD SCH (17:21)
[2018-04-15 19:19] VITALS: BP 145/71
[2018-04-15] MEDS: ATORVASTATIN 80 MG (LIPITOR) TABLET PO SCH (20:10)
[2018-04-15] MEDS: PANTOPRAZOLE 40 MG (PROTONIX) TAB PO SCH (20:10)
[2018-04-16 00:07] VITALS: BP 141/72
[2018-04-16] MEDS: oxyCODONE/APAP 5/325MG (PERCOCET 5) TABLET PO PRN ×5 (01:10→10:17)
[2018-04-16] MEDS: MULTIVIT W/MINERALS TAB (THERAGRAN M) PO SCH (06:00)
[2018-04-16 06:04] LABS: HEMOGLOBIN 11.8 G/DL (13.3-17.7)
--- NOTE | 2018-04-16 07:02 | Progress Note-Standard ---
Standard Progress Note Progress Notes/Assess & Plan Date Seen by a Provider: Apr 16, 2018 Time Seen by a Provider: 07:00 Progress/Assessment & Plan post op check No complaints radiographs--HW well positioned. No fractures RLE--2 plus DP pulse with brisk cap refill. Intact DF and PF of toes and ankle with intact sensation to light touch throughout s/p RTKA mobilize as able Final Diagnosis no complaints Vital Signs Date Time Temp Pulse Resp B/P (MAP) Pulse Ox O2 Delivery O2 Flow Rate FiO2 04/16/18 00:07 98.5 79 20 141/72 (95) 95 Room Air 04/15/18 20:10 96 Room Air 2.00 04/15/18 19:19 98.9 71 14 145/71 (95) 96 Room Air 04/15/18 15:41 99.1 80 18 129/71 (90) 96 Room Air 04/15/18 12:00 98.9 81 20 160/74 (102) 96 Room Air 04/15/18 08:45 Room Air 04/15/18 08:00 98.2 85 20 171/90 (117) 96 Room Air I & O 04/16/18 07:00 Intake Total 4753 ml Output Total 3850 ml Balance 903 ml Laboratory Tests Test 04/16/18 05:40 Range/Units Hemoglobin 11.8 L 13.3-17.7 G/DL Hematocrit 35 L 40-54 % RLE--flexion activiley to 90. able to perform SLR. No calf tenderness. Neg Maria E 's incision clean and dry s/p RTKA doing well DC after PT today home PT to begin Thursday VICKY WEATHERS MD Apr 16, 2018 07:02
[2018-04-16 08:00] VITALS: BP 151/84
[2018-04-16] MEDS ORDERED: diphenhydrAMINE 25 MG TAB (BENADRYL) PO PRN (08:00)
[2018-04-16] MEDS: ENOXAPARIN 30 MG/0.3 ML (LOVENOX) SYR SC SCH (08:11)
[2018-04-16] MEDS: SENNA W/DOCUSATE (SENOKOT S) TABLET PO SCH (08:12)
[2018-04-16] MEDS: LORATADINE (CLARITIN) 10 MG TAB PO SCH (08:12)
[2018-04-16] MEDS: amLODIPine 10 MG (NORVASC) TAB PO SCH (08:12)
[2018-04-16] MEDS: meTOprolol TARTRATE 50 MG (LOPRESSOR) TAB PO SCH (08:12)
[2018-04-16] MEDS: NICOTINE 21 MG (NICODERM) PATCH TD SCH (08:12)
[2018-04-16] MEDS: GABAPENTIN 300 MG (NEURONTIN) CAP PO SCH (08:13)
[2018-04-16] MEDS ORDERED: NICOTINE PATCH REMOVAL TP SCH (08:59)
[2018-04-16] MEDS ORDERED: ASPIRIN E.C. 81 MG (ECOTRIN) TAB PO SCH (09:00)
--- NOTE | 2018-04-16 09:55 | Physical Therapy Daily Note ---
PT Daily Note-Current Subjective Patient awake in room visiting with when PT arrived. Pt agreed to get up and exercise with PT. Pain Numeric Pain Scale: 7 Location: Right Location Body Site: Knee Mental Status Patient Orientation: Normal For Age Transfers Therapy Code Descriptions/Definitions Functional [place] Measure: 0=Not Assessed/NA 4=Minimal Assistance 1=Total Assistance 5=Supervision or Setup 2=Maximal Assistance 6=Modified [place] 3=Moderate Assistance 7=Complete [place] Therapy Quality Codes: 6 Independent with activity with or without an assistive device 5 Patient requires set up or clean up by helper. Patient completes activity by themselves 4 Supervision or touching assist (CGA). [place] provide cues , steadying assist 3 The helper provides less than half the effort to complete the activity 2 The helper provides more than half the effort to complete the activity 1 Dependent. The helper does all the effort to complete an activity 7 Patient refused to complete or attempt activity 9 The patient did not perform the activity before the current illness or injury 88 Not attempted due to Medical conditions or safety concerns Transfers (B, C, W/C) (FIM): 6 Scootin Rollin Supine to/from Sit: 6 Sit to/from Stand: 6 Weight Bearing Right Lower Extremity: Right Weight Bearing/Tolerated Gait Training Gait (FIM): 6 Distance (FIM): 3=150 ft Distance: 400 Gait Level of Assist: 6 Gait Assistive Device: FWW Stair Training Stair Training: Handrails/: 1 handrail Stairs (FIM): 6 #of Steps: 10 Stairs: Pattern: Step to Level of Assist: 6 Exercises Supine Ex: Quad Set, Heel Slides, Straight leg raise Seated Therapy Exercises: Long arc quads, Hamstring Curls Seated Reps: 20 Assessment Pt able to ambulate for 400' with a FWW at MOD I. Patient continues to show improvement in ambulation and able to ascend/descend 10 stairs with MOD I. Patient returned to room perform LE exercises at EOB and in supine. Patient will be DC from PT services.. with patient dismissing to home on this date with spouse and home health. PT Short Term Goals Short Term Goals Time Frame: Apr 15, 2018 PT Senior Living Goals Crm Specialist Goals PT Senior Living Goals Time Frame: Apr 21, 2018 Transfers (B,C,W/C) (FIM): 6 Gait (FIM): 6 Gait distance (FIM): 3=150 ft Distance: 200' Gait Level of Assist: 6 Gait Assistive Device: FWW PT Plan Treatment/Plan Treatment Plan: Discontinue PT, goals met Treatment Plan: Bed Mobility, Education, Functional Activity Jody, Functional Strength, Gait, Safety, Therapeutic Exercise, Transfers Treatment Duration: Apr 21, 2018 Frequency: 11 times per week Estimated Hrs Per Day: .5 hour per day Patient and/or Family Agrees t: Yes Time/GCodes Time In: 848 Time Out: 912 Total Billed Treatment Time: 24 Total Billed Treatment 1 Visit EX-12 FA-12 LUCIA ROSA PT Apr 16, 2018 09:55
[2018-04-16 10:35] VITALS: BP 151/84
--- NOTE | 2018-04-17 07:13 | DISCHARGE SUMMARY ---
DATE OF SERVICE: DISCHARGE DIAGNOSES: 1. Right knee primary osteoarthritis. 2. Hyperlipidemia. 3. Hypertension. 4. Chronic back pain. 5. Chronic obstructive pulmonary disease. 6. Carotid disease. 7. Osteoarthritis. HISTORY: The patient is a 57-year-old gentleman who underwent right total knee arthroplasty at the day of admission. Postoperatively, he did very well. At the time of discharge, he cleared physical therapy. His wound was clean and dry, had no calf tenderness. Negative Homans sign. He could perform straight leg raise and had active flexion to 90 degrees. He was tolerating his diet well and tolerating pain with oral pain medication. CONDITION AT DISCHARGE: Good. DISCHARGE DIET: Regular. FOLLOWUP: Followup is in three weeks. Home physical therapy has been arranged. DISCHARGE MEDICATIONS: Home medications, Percocet and aspirin. ACTIVITIES: Weightbearing as tolerated with assistive devices. Job ID: [id number] DocumentID: [id number] Dictated Date: 04/16/2018 07:04:05 Tool Machine Set Up Operator Date: 04/17/2018 07:12:25 Dictated By: VICKY WEATHERS MD
== END 2018-04-16 10:35 | disposition home health service (06) | DRG 470 ==
LOC: 4TH 05:52 → SURG 05:53 → 4TH 10:30
PROVIDERS: ADMIT Orthopaedic Surgery; ATTEND Orthopaedic Surgery
PROC: 0SRC0J9 Replacement of Right Knee Joint with Synthetic Substitute, Cemented, Open Approach (ICD-10-PCS; principal; 2018-04-14 07:35)
DX: M17.11 Unilateral primary osteoarthritis, right knee (principal); I10 Essential (primary) hypertension; J44.9 Chronic obstructive pulmonary disease, unspecified; E78.5 Hyperlipidemia, unspecified; F17.210 Nicotine dependence, cigarettes, uncomplicated; M79.7 Fibromyalgia; K21.9 Gastro-esophageal reflux disease without esophagitis; M54.9 Dorsalgia, unspecified; G89.29 Other chronic pain
CPT/HCPCS: 36415; 73560; 85014; 85018; 86850; 86900; 86901; 90471; 90686; 94664

== ENCOUNTER → 2019-07-15 | Outpatient (CLI) | payer MEDICAID ==
[~2019-07-15] MED LIST changes: +ACHYD1T PO; -HYDR-3820 PO; +RT-ALBUTEROL SULF 2.5 MG/3 ML PRE-MIX VIAL INH ONE; +RT-ALBUTEROL SULF 2.5 MG/3 ML PRE-MIX VIAL ONE
[2019-07-15 10:59] LABS: ABG BASE EXCESS -0.1 MMOL/L (-2.5-2.5); ABG OXYGEN SATURATION 96 % (94-100); ABG PCO2 41 MMHG (35-45); ABG PH 7.39 (7.37-7.43); ABG PO2 74 MMHG (79-93); ABG TCO2 25.6 MMOL/L (21.0-31.0)
[2019-07-15 11:00] LABS: ALLENS TEST POSITIVE; INSPIRED O2 0; PATIENT TEMP 35.8; VENTILATOR NO
== END ==
LOC: RT 09:56
PROVIDERS: ATTEND Internal Medicine Critical Care Medicine
DX: R06.02 Shortness of breath (principal)
CPT/HCPCS: 36600; 82805; 94060; 94726; 94729

== ENCOUNTER → 2019-11-16 | Outpatient (CLI) | payer MEDICAID ==
[~2019-11-16] MED LIST changes: +DULO30CA49 PO; +GABA300C PO; +MONT10TA26 PO; -RT-ALBUTEROL SULF 2.5 MG/3 ML PRE-MIX VIAL INH ONE; -RT-ALBUTEROL SULF 2.5 MG/3 ML PRE-MIX VIAL ONE; +TERB15CR6 TP
== END ==
LOC: LABNPT 06:50
PROVIDERS: ATTEND Nurse Practitioner Family
DX: Z01.812 Encounter for preprocedural laboratory examination (principal); Z53.8 Procedure and treatment not carried out for other reasons

== ENCOUNTER 2019-11-21 05:42 | Outpatient (RCR) | payer MEDICAID ==
[2019-11-16 11:47] VITALS: BP 151/85
--- NOTE | 2019-11-16 12:41 | Diagnostic Imaging Report ---
INDICATION: Preop for total knee arthroplasty. TIME OF EXAM: 12:16 p.m. COMPARISON: Comparison is made with prior chest from 04/05/2018. FINDINGS: Heart size is normal. Lungs are clear. No infiltrates are detected. There is no effusion or pneumothorax. Postoperative changes in lower cervical spine are noted. IMPRESSION: No acute cardiopulmonary process is detected. Dictated by: Dictated on workstation # [id number]
[2019-11-16 14:13] LABS: BASOPHILS # (AUTO) 0.1 10^3/uL (0.0-0.1); BASOPHILS % (AUTO) 1 % (0-10); EOSINOPHILS # (AUTO) 0.2 10^3/uL (0.0-0.3); EOSINOPHILS % (AUTO) 3 % (0-10); HEMATOCRIT 41 % (40-54); HEMOGLOBIN 13.7 G/DL (13.3-17.7); LYMPHOCYTES # (AUTO) 2.1 X 10^3 (1.0-4.0); LYMPHOCYTES % (AUTO) 35 % (12-44); MEAN CORPUSCULAR HEMOGLOBIN 30 PG (25-34); MEAN CORPUSCULAR HGB CONC 34 G/DL (32-36); MEAN CORPUSCULAR VOLUME 89 FL (80-99); MEAN PLATELET VOLUME 9.1 FL (7.4-10.4); MONOCYTES # (AUTO) 0.5 X 10^3 (0.0-1.0); MONOCYTES % (AUTO) 9 % (0-12); NEUTROPHILS # (AUTO) 3.2 X 10^3 (1.8-7.8); NEUTROPHILS % (AUTO) 53 % (42-75); PLATELET COUNT 255 10^3/uL (130-400); RED CELL DISTRIBUTION WIDTH 13.8 % (10.0-14.5)
[2019-11-16 14:14] LABS: ALBUMIN 4.2 GM/DL (3.2-4.5); CHLORIDE 107 MMOL/L (98-107); POTASSIUM 4.6 MMOL/L (3.6-5.0); SODIUM 137 MMOL/L (135-145)
[2019-11-16 14:16] LABS: CALCIUM 9.5 MG/DL (8.5-10.1)
[2019-11-16 14:17] LABS: GLUCOSE 95 MG/DL (70-105); TOTAL PROTEIN 7.5 GM/DL (6.4-8.2)
[2019-11-16 14:18] LABS: CARBON DIOXIDE 24 MMOL/L (21-32)
[2019-11-16 14:19] LABS: BILIRUBIN,TOTAL 0.3 MG/DL (0.1-1.0)
[2019-11-16 14:20] LABS: ALKALINE PHOSPHATASE 93 U/L (40-136); GFR ESTIMATED > 60; INR 0.9 (0.8-1.4)
[2019-11-16 14:21] LABS: BUN/CREATININE RATIO 15
[2019-11-16 14:23] LABS: ALANINE AMINOTRANSFERASE 32 U/L (0-55)
[2019-11-16 14:32] LABS: ERYTHROCYTE SEDIMENTATION RATE 17 MM/HR (0-30)
[~2019-11-21] VITALS: Ht 180 cm; Wt 103.1 kg
[2019-11-21 09:44] LABS: BILIRUBIN,URINE NEGATIVE (NEGATIVE); CLARITY,URINE CLEAR; COLOR,URINE YELLOW; GLUCOSE, URINE (UA) NEGATIVE (NEGATIVE); KETONES,URINE NEGATIVE (NEGATIVE); LEUKOCYTE ESTERASE ,URINE NEGATIVE (NEGATIVE); NITRITE,URINE NEGATIVE (NEGATIVE); PH,URINE 6.5 (5-9); PROTEIN,URINE NEGATIVE (NEGATIVE)
[2019-11-21 10:01] LABS: BACTERIA,URINE NEGATIVE /HPF; SQUAMOUS EPITHELIAL CELL,UR RARE /HPF
== END 2019-11-21 13:15 | disposition home or self-care (01) ==
LOC: PREOP 05:42
PROVIDERS: ATTEND Orthopaedic Surgery
DX: Z01.818 Encounter for other preprocedural examination (principal); M17.12 Unilateral primary osteoarthritis, left knee
CPT/HCPCS: 36415; 71046; 80053; 81000; 85025; 85610; 85652; 86850; 86900; 86901; 87081; 87635; 93005

== ENCOUNTER 2019-11-23 06:10 | Inpatient (IN) | payer MEDICAID ==
--- NOTE | 2019-11-20 15:07 | HISTORY AND PHYSICAL ---
DATE OF SERVICE: This will be for inpatient admission on 11/23/2019 for left total knee arthroplasty. The patient will require regular inpatient admission for pain management, need for physical therapy, gait abnormalities and comorbidities. HISTORY OF PRESENT ILLNESS: The patient is a 58-year-old gentleman with complaints of progressively worsening left knee pain. Radiographs reveal severe medial and patellofemoral arthrosis. He had undergone treatment with injections, anti-inflammatories and rest without relief. Due to functional impairment and failure to improve with conservative measures, the patient elected to proceed with surgical intervention. REVIEW OF SYSTEMS: No chest pain, no shortness of breath, no dysuria. PAST MEDICAL HISTORY: Hyperlipidemia, hypertension, chronic back pain, COPD, carotid disease, abdominal hernia, chronic pain syndrome, anxiety disorder, fibromyalgia. PAST SURGICAL HISTORY: Cervical spine x2, lumbar spine x4, appendectomy, colonoscopy, right shoulder, left shoulder, right total knee arthroplasty and herniorrhaphy. FAMILY HISTORY: Significant for ischemic heart disease. PRIMARY CARE PROVIDER: [facility]. MEDICATIONS: 1. Hydrocodone. 2. Lipitor. 3. Prevacid. 4. Fluticasone. 5. ProAir. 6. Stiolto. 7. Aspirin. 8. Diclofenac. 9. Gabapentin. 10. Cyclobenzaprine. 11. Metoprolol. 12. Amlodipine. 13. Cetirizine. 14. Duloxetine. 15. Singulair. 16. Terbinafine. ALLERGIES: DILANTIN. SOCIAL HISTORY: The patient is a tobacco smoker. Denies alcohol use. PHYSICAL EXAMINATION: GENERAL: The patient is well developed, well-nourished, in no acute distress. HEENT: Normocephalic, atraumatic. Pupils are equal, round, reactive to light. Oropharynx is clear. NECK: Supple, no lymphadenopathy. LUNGS: Clear to auscultation bilaterally. HEART: Regular rate and rhythm. ABDOMEN: Soft, nontender, nondistended. EXTREMITIES: Left knee demonstrates varus alignment. He is tender along his medial joint line, has pain with patellar loading pain medially with Lianne's. Negative Naomi, negative anterior and posterior drawer. No varus valgus laxity. Range of motion 0/3/125. IMPRESSION: Left knee severe osteoarthritis, unresponsive to conservative measures. PLAN: Left total knee arthroplasty. The risks, benefits, options, ramifications and recovery were discussed at length with the patient. He understands and wishes to proceed. 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
[2019-11-23] VITALS (12 sets, daily range): BP systolic 107–182; BP diastolic 68–96
[~2019-11-23] VITALS: Ht 180 cm; Wt 103.1 kg
--- OUTSIDE RECORDS SUMMARY | 2019-11-23 06:15 | XMS REPORT | Clinical Summary ---
Author Author [facility] Organization [facility] Address Unknown Phone Unavailable Care Team Providers [employer] Name Role Phone Tori Pino MD Unavailable Database, Physician Not In PCP Unavailable Source Comments Some departments are not documenting in the electronic medical record. If you d o not see the information that you expected, contact Release of Information in [facility] [employer] [facility] Information Management department at [phone] for further assistan ce in locating additional records.[facility] Allergies Comments Active Allergy Reactions Severity Noted Date Hydromorphone UNKNOWN Low 11/12/2015 Medications End Date Status Medication Sig Dispensed Refills Start Date Active albuterol (VENTOLIN HFA, Inhale 2 0 PROAIR HFA) 90 Puffs by mcg/actuation inhaler mouth every 6 hours as needed for Wheezing. Active amLODIPine (NORVASC) 10 Take 10 mg by 0 mg tablet mouth daily. Active atorvastatin (LIPITOR) 80 Take 80 mg by 0 mg tablet mouth daily. Active captopril (CAPOTEN) 25 mg Take 25 mg by 0 tablet mouth three times daily. Active diazepam (VALIUM) 10 mg Take 10 mg by 0 tablet mouth every 6 hours as needed for Anxiety. Active lansoprazole DR(+) Take 30 mg by 0 (PREVACID) 30 mg capsule mouth daily. Active fluticasone (FLONASE) 50 Apply 2 0 mcg/actuation nasal spray Sprays to each nostril as directed daily. Active tiotropium-olodaterol Inhale by 0 2.5-2.5 mcg/actuation mouth. mist Active morphine SR (MS CONTIN; Take 160 mg 0 ORAMORPH SR) 60 mg by mouth tabletIndications: 160 in every 12 the moring 130 at bedtime hours Indications: 160 in the moring 130 at bedtime Active HYDROcodone/acetaminophen Take 1 Tab by 0 (+) (LORTAB, NORCO) mouth every 6 10/325 mg tablet hours as needed for Pain Active baclofen (LIORESAL) 10 mg Take 10 mg by 0 tablet mouth three times daily. Active diclofenac sodium DR Take 75 mg by 0 (VOLTAREN) 75 mg tablet mouth twice daily. Active gabapentin (NEURONTIN) Take 2 Caps 180 Cap 6 300 mg by mouth 6 capsuleIndications: three times Idiopathic polyneuropathy daily. Active duloxetine DR (CYMBALTA) Take 1 Cap by 90 Cap 3 30 mg capsuleIndications: mouth daily. 6 Idiopathic polyneuropathy, Depression, unspecified depression type Active Problems Problem Noted Date Drop attack 03/14/2016 Abnormal involuntary movement 03/14/2016 Tobacco abuse 03/14/2016 Depression 03/14/2016 Spondylosis of cervical region without myelopathy or radiculopathy 01/07/2016 Spondylosis of lumbar region without myelopathy or ra diculopathy 01/07/2016 Pseudoarthrosis of lumbar spine 11/12/2015 Resolved Problems Problem Noted Date Resolved Date Osteoarthritis of lumbar spine with myelopathy 11/12/2015 01/07/2016 Spondylolisthesis of cervical region 11/12/2015 0 01/07/2016 Family History Medical History Relation Name Comments Unknown to Patient Father Heart Disease Mother Relation Name Status Comments Father Mother Social History Date Tobacco Use Types Packs/Day Years Used Current Every Day Smoker 0.5 Smokeless Tobacco: Never Used Tobacco Cessation: Ready to Quit: Yes; C ounseling Given: Yes Drinks/Week oz/Week Comments Alcohol Use 0 Standard drinks or equivalent 0.0 No Sex Assigned at Date Recorded Not on file Industry Job Start Date Occupation Not on file Not on file Not on file Travel End Travel History Travel Start No recent travel history available. Last Filed Vital Signs Reading Time Taken Comments Vital Sign 155/97 07/07/2016 11:10 AM [employer] Blood Pressure 103 07/07/2016 11:10 AM [employer] VO[employer]ANT Pulse 36.7 C (98 F) 07/07/2016 11:10 AM [employer]ANT Temperature 18 07/07/2016 11:10 AM [employer] VO[employer]ANT Respiratory Rate 97% 07/07/2016 11:10 AM C[employer] VO[employer]SULTANT Oxygen Saturation - - Inhaled Oxygen Concentration 100.2 kg (220 lb 12.8 oz) 07/07/2016 11:10 AM C[employer] VO[employer] CONSULTANT Weight 180.3 cm (5' 11") 07/07/2016 11:10 AM C[employer] VO[employer]SULTANT Height 30.8 07/07/2016 11:10 AM C[employer] VO[employer]SULTANT Body Mass Index Plan of Treatment Health Maintenance Due Date Last Done Comments HIV SCREENING 12/25/1975 DTAP/TDAP VACCINES (1 - 1978 Tdap) HEPATITIS C SCREENING 1978 PHYSICAL (COMPREHENSIVE) 1978 EXAM COLORECTAL CANCER 2010 SCREENING SHINGLES RECOMBINANT 2010 VACCINE (1 of 2) INFLUENZA VACCINE 02/16/2020 Results Not on filefrom Last 3 Months Advance Directives Patient Vp Outcomes Explanation Type Date Recorded Advance 07/03/2015 9:35 AM Directive/DPOA
--- OUTSIDE RECORDS SUMMARY | 2019-11-23 06:15 | XMS REPORT ---
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 Role Phone JANE Lopez Unavailable PROBLEMS Type Condition ICD9-CM Code [id number] Code Onset Dates Condition S tatus SNOMED Code Problem Bilateral primary osteoarthritis of knee M17.0 Active 640458189 Problem Chronic pain syndrome G89.4 Active 831440429 Problem Lung nodule < 6cm on CT R91.1 Active 197724269 Problem Panlobular emphysema J43.1 Active 5745573 Problem Anxiety disorder, unspecified F41.9 Active 392698748 Problem Other chronic pain G89.29 Active 8 2225882 Problem Lumbago with sciatica, left side M54.42 Active 830721001 Problem Lumbago with sciatica, right side M54.41 Active [id number] ALLERGIES No Information ENCOUNTERS Encounter Location Date Diagnosis [place] [address] [facility] [id number] [address] [place] [address] Oct, [facility] [address] [facility] [id number] [address] [place] [address] Aug, [facility] [address] [facility] [id number] [address] [place] [address] Aug, [facility] [address] [facility] [id number] [address] [place] [address] 15 Aug, 2019 Chronic pain syndrome G89.4 [facility] [address] [facility] [id number] [address] [place] [address] 03 Aug, 2019 Lung nodule < 6cm on CT R91. 1 and Panlobular emphysema J43.1 [facility] [address] [facility] [id number] [address] [place] [address] Jul, Chronic pain syndrome G89.4 [facility] [address] [facility] [id number] [address] [place] [address] Jul, Bilateral primary osteoarthr itis of knee M17.0 ; Lumbago with sciatica, left side M54.42 and Encounter for immunization Z23 [facility] [address] [facility] [id number] [address] [place] [address] Jun, Chronic pain syndrome G89.4 [facility] [address] [facility] [id number] [address] [place] [address] May, Lung nodule < 6cm on CT R91. 1 ; SOB (shortness of breath) R06.02 ; Coughing R05 and Panlobular emphysema J43.1 [place] [address] [facility] [id number] [address] [place] [address] May, [facility] [address] [facility] [id number] [address] [place] [address] May, Chronic pain syndrome G89.4 [facility] [address] [facility] [id number] [address] [place] [address] May, [facility] [address] [facility] [id number] [address] [place] [address] Apr, Chronic pain syndrome G89.4 [facility] [address] [facility] [id number] [address] [place] [address] Apr, Encounter for immunization Z 23 ; Lumbago with sciatica, left side M54.42 and Tinea corporis B35.4 [facility] [address] [facility] [id number] [address] [place] [address] Mar, [facility] [address] [facility] [id number] [address] [place] [address] Mar, [facility] [address] [facility] [id number] [address] [place] [address] Mar, Chronic pain syndrome G89.4 [place] [address] [id number] [address] [place] [address] Mar, [facility] [address] [id number] [address] [place] [address] Mar, [facility] [address] [id number] [address] [place] [address] Mar, [facility] [address] [facility] [id number] [address] [place] [address] Feb, Chronic pain syndrome G89.4 [facility] [address] [id number] [address] [place] [address] Feb, [facility] [address] [facility] [id number] [address] [place] [address] Jan, Chronic pain syndrome G89.4 [facility] [address] [facility] [id number] [address] [place] [address] Dec, Chronic pain syndrome G89.4 [facility] [address] [id number] [address] [place] [address] Dec, Chronic pain syndrome G89.4 and Anxiety disorder, unspecified F41.9 [facility] [address] [facility] [id number] [address] [place] [address] Nov, [facility] [address] [facility] [id number] [address] [place] [address] Oct, [facility] [address] [facility] [id number] [address] [place] [address] Oct, [facility] [address] [facility] [id number] [address] [place] [address] Oct, Acute bronchitis, unspecifie d organism J20.9 and Nasal congestion R09.81 [facility] [address] [id number] [address] [place] [address] September, [facility] [address] [facility] [id number] [address] [place] [address] Aug, Lumbago with sciatica, left side M54.42 ; Lumbago with sciatica, right side M54.41 and Other chronic pain G89.29 [facility] [address] [id number] [address] [place] [address] Aug, [facility] [address] [id number] [address] [place] [address] Jul, [facility] [address] [id number] [address] [place] [address] Jun, [facility] [address] [id number] [address] [place] [address] May, [facility] [address] [id number] [address] [place] [address] Apr, Pain in right knee M25.561 [facility] [address] [id number] [address] [place] [address] Apr, Pain in right knee M25.561 [facility] [address] [id number] [address] [place] [address] Mar, Pain in right knee M25.561 [facility] [address] [id number] [address] [place] [address] Mar, [facility] [address] [id number] [address] [place] [address] Mar, Chronic pain syndrome G89.4 [facility] [address] [id number] [address] [place] [address] Feb, [facility] [address] [id number] [address] [place] [address] Feb, [facility] [address] [id number] [address] [place] [address] Dec, [facility] [address] [id number] [address] [place] [address] Dec, [facility] [address] [id number] [address] [place] [address] Nov, Chronic pain syndrome G89.4 [facility] [address] [facility] [id number] [address] [place] [address] Nov, [facility] [address] [facility] [id number] [address] [place] [address] Oct, [facility] [address] [facility] [id number] [address] [place] [address] Oct, [facility] [address] [facility] [id number] [address] [place] [address] Oct, [facility] [address] [place] [id number] [place] [address] Oct, Allergic reaction to drug, s ubsequent encounter T78.40XD [facility] [address] [facility] [id number] [address] [place] [address] September, [facility] [address] [facility] [id number] [address] [place] [address] September, [facility] [address] [facility] [id number] [address] [place] [address] September, Low back pain radiating to l ower extremity M54.5 [facility] [address] [facility] [id number] [address] [place] [address] Aug, [facility] [address] [facility] [id number] [address] [place] [address] Aug, [facility] [address] [facility] [id number] [address] [place] [address] Aug, [facility] [address] [place] [id number] [address] [place] [address] Aug, [facility] [address] [facility] [id number] [address] [place] [address] Aug, Incisional infection, initia l encounter T81.4XXA [facility] [address] [id number] [address] [place] [address] Aug, [facility] [address] [id number] [address] [place] [address] Jul, [facility] [address] [facility] [id number] [address] [place] [address] Jul, [facility] [address] [facility] [id number] [address] [place] [address] Jul, Chronic pain syndrome G89.4 [facility] [address] [id number] [address] [place] [address] Jul, Pre-op evaluation Z01.818 [facility] [address] [id number] [address] [place] [address] Jul, [facility] [address] [facility] [id number] [address] [place] [address] Jun, Anxiety disorder, unspecifie d F41.9 and Chronic pain syndrome G89.4 [facility] [address] [id number] [address] [place] [address] Jun, [facility] [address] [facility] [id number] [address] [place] [address] Jun, [facility] [address] [facility] [id number] [address] [place] [address] Jun, [facility] [address] [facility] [id number] [address] [place] [address] Jun, [facility] [address] [facility] [id number] [address] [place] [address] Jun, Lumbar neuritis M54.16 [facility] [address] [facility] [id number] [address] [place] [address] May, [facility] [address] [facility] [id number] [address] [place] [address] May, [facility] [address] [facility] [id number] [address] [place] [address] May, Encounter for therapeutic dr ug level monitoring Z51.81 ; Encounter for immunization Z23 and Chronic pain syndrome G89.4 [facility] [address] [id number] [address] [place] [address] May, Lumbar neuritis M54.16 [facility] [address] [id number] [address] [place] [address] May, [facility] [address] [id number] [address] [place] [address] Apr, Lumbar neuritis M54.16 [facility] [address] [id number] [address] [place] [address] Apr, [facility] [address] [id number] [address] [place] [address] Mar, Lumbar neuritis M54.16 [facility] [address] [id number] [address] [place] [address] Mar, [facility] [address] [id number] [address] [place] [address] Mar, [facility] [address] [id number] [address] [place] [address] Feb, Lumbar neuritis M54.16 [facility] [address] [id number] [address] [place] [address] Feb, Lumbar neuritis M54.16 [facility] [address] [id number] [address] [place] [address] Feb, [facility] [address] [id number] [address] [place] [address] Feb, [facility] [address] [id number] [address] [place] [address] Jan, [facility] [address] [id number] [address] [place] [address] Jan, Peroneal tendonitis of left lower extremity M76.72 [facility] [address] [id number] [address] [place] [address] 20 Jan, 2017 Lumbar neuritis M54.16 [facility] [address] [id number] [address] [place] [address] Jan, [facility] [address] [id number] [address] [place] [address] Dec, Lumbar neuritis M54.16 [facility] [address] [id number] [address] [place] [address] Dec, [facility] [address] [id number] [address] [place] [address] Dec, Pain in right knee M25.561 ; Lumbar neuritis M54.16 and Cervical neuritis M54.12 [facility] [address] [id number] [address] [place] [address] Dec, [facility] [address] [id number] [address] [place] [address] Dec, [facility] [address] [id number] [address] [place] [address] Nov, Lumbar neuritis M54.16 [facility] [address] [id number] [address] [place] [address] Nov, Bilateral primary osteoarthr itis of knee M17.0 [facility] [address] [id number] [address] [place] [address] Nov, [facility] [address] [id number] [address] [place] [address] Nov, Bronchitis J40 and Plantar f asciitis M72.2 [facility] [address] [id number] [address] [place] [address] Nov, [facility] [address] [id number] [address] [place] [address] Oct, Lumbar neuritis M54.16 [facility] [address] [id number] [address] [place] [address] 30 Oct, 2016 Lumbar neuritis M54.16 [facility] [address] [id number] [address] [place] [address] 28 Oct, 2016 Lumbar neuritis M54.16 [facility] [address] [id number] [address] [place] [address] 26 Oct, 2016 Plantar fasciitis M72.2 and Pain in right knee M25.561 [facility] [address] [id number] [address] [place] [address] 16 Oct, 2016 Lumbar neuritis M54.16 ; Cer vical neuritis M54.12 ; Other specified abdominal hernia without obstruction or gangrene K45.8 ; Heel spur, left M77.32 ; Plantar fasciitis M72.2 and Pain in right knee M25.561 [facility] [address] [id number] [address] [place] [address] 13 Oct, 2016 [facility] [address] [id number] [address] [place] [address] 14 Aug, 2014 [facility] [address] [id number] [address] [place] [address] Aug, [facility] [address] [id number] [address] [place] [address] Apr, [facility] [address] [id number] [address] [place] [address] Apr, [facility] [address] [id number] [address] [place] [address] Mar, [facility] [address] [id number] [address] [place] [address] Mar, [facility] [address] [id number] [address] [place] [id number] Feb, [facility] [address] [id number] [address] [place] [address] Feb, [facility] [address] [id number] [address] [place] [address], [place] [address] 09 Feb, 2013 [facility] [address] [id number] [address] [place] [address], [place] [address] Feb, 2013 [facility] [address] [id number] [address] [place] [address], [place] [address] Feb, 2013 [facility] [address] [id number] [address] [place] [address], [place] [address] Feb, 2013 [facility] [address] [id number] [address] [place] [address], [place] [address] Feb, 2013 [facility] [address] [id number] [address] [place] [address], [place] [address] Feb, 2013 [facility] [address] [id number] [address] [place] [address], [place] [address] 30 Sep, 2013 [facility] [address] [id number] [address] [place] [address], [place] [address] 30 Sep, 2013 [facility] [address] [id number] [address] [place] [address], [place] [address] 30 Sep, 2013 [facility] [address] [id number] [address] [place] [address], [place] [address] 30 Sep, 2013 [facility] [address] [id number] [address] [place] [address], [place] [address] 30 Sep, 2013 [facility] [address] [id number] [address] [place] [address], [place] [address] 30 Sep, 2013 [facility] [address] [id number] [address] [place] [address], [place] [address] 26 Sep, 2013 [facility] [address] [id number] [address] [place] [address], [place] [address] 26 Sep, 2013 [facility] [address] [id number] [address] [place] [address], [place] [address] 22 Sep, 2013 [facility] [address] [id number] [address] [place] [address], [place] [address] 22 Sep, 2013 [facility] [address] [id number] [facility] [place] [address] 16 Sep, 2013 [facility] [address] [id number] [address] [place] [address], [place] [address] 16 Sep, 2013 [facility] [address] [id number] [address] [place] [address], [place] [address] 16 Sep, 2013 [facility] [address] [id number] [address] [place] [address], [place] [address] 16 Sep, 2013 [facility] [address] [id number] [address] [place] [address], [place] [address] 12 Jan, 2013 [facility] [address] [id number] [address] [place] [address], [place] [address] 12 Jan, 2013 [facility] [address] [id number] [address] [place] [address], [place] [address] 12 Jan, 2013 [facility] [address] [id number] [address] [place] [address], [place] [address] 12 Jan, 2013 [facility] [address] [id number] [address] [place] [address], [place] [address] 09 Sep, 2013 [facility] [address] [id number] [address] [place] [address], [place] [address] 09 Jan, 2013 [facility] [address] [id number] [address] [place] [address], [place] [address] 09 Sep, 2013 [facility] [address] [id number] [address] [place] [address], [place] [address] 09 Jan, 2013 [facility] [address] [id number] [address] [place] [address], [place] [address] 05 Jan, 2013 [facility] [address] [id number] [address] [place] [address], [place] [address] 05 Jan, 2013 [facility] [address] [id number] [address] [place] [address], [place] [address] Dec, [facility] [address] [id number] [facility] [place] [address] Dec, [facility] [address] [id number] [facility] [place] [address] Dec, [facility] [address] [id number] [facility] [place] [address] Dec, [facility] [address] [id number] [facility] [place] [address] Dec, [facility] [address] [id number] [facility] [place] [address] Dec, [facility] [address] [id number] [facility] [place] [address] Dec, [facility] [address] [id number] [facility] [place] [address] Dec, [facility] [address] [id number] [address] [place] [address], [place] [address] Dec, [facility] [address] [id number] [address] [place] [address], [place] [address] Dec, [facility] [address] [id number] [address] [place] [address], [place] [address] Dec, [facility] [address] [id number] [address] [place] [address], [place] [address] Dec, [facility] [address] [id number] [address] [place] [address], [place] [address] Dec, [facility] [address] [id number] [address] [place] [address], [place] [address] Dec, [facility] [address] [id number] [address] [place] [address], [place] [address] Dec, [facility] [address] [id number] [address] [place] [address] Dec, [facility] [address] [id number] [address] [place] [address], [place] [address] Dec, [facility] [address] [id number] [facility] [place] [address] Dec, [facility] [address] [id number] [address] [place] [address], [place] [address] Dec, [facility] [address] [id number] [address] [place] [address], [place] [address] Nov, [facility] [address] [id number] [address] [place] [address], [place] [address] Nov, [facility] [address] [id number] [address] [place] [address], [place] [address] Nov, [facility] [address] [id number] [address] [place] [address], [place] [address] Nov, [facility] [address] [id number] [address] [place] [address], [place] [address] Nov, [facility] [address] [id number] [address] [place] [address], [place] [address] Nov, [facility] [address] [id number] [address] [place] [address], [place] [address] Nov, [facility] [address] [id number] [address] [place] [address], [place] [address] Nov, [facility] [address] [id number] [address] [place] [address], [place] [address] Nov, [facility] [address] [id number] [address] [place] [address], [place] [address] Nov, [facility] [address] [id number] [address] [place] [address], [place] [address] Nov, [facility] [address] [id number] [address] [place] [address], [place] [address] Oct, [facility] [address] [id number] [address] [place] [address], [place] [address] Oct, [facility] [address] [id number] [address] [place] [id number] Oct, [facility] [address] [facility] [id number] [address] [place] [address] Apr, IMMUNIZATIONS No Known Immunizations SOCIAL HISTORY [...] History Hernia Repair Surgical History Cyst removal Surgical History Knee Hospitalization History Surgery(s) only Hospitalization History Chest Pain 08/2017
--- OUTSIDE RECORDS SUMMARY | 2019-11-23 06:16 | XMS REPORT ---
Author Author Pal Lopez Organization [facility] Address [address] [place] [address] Care Team Providers Care Strategy Planning Consultant Name Role Phone JANE Lopez Unavailable PROBLEMS Type Condition ICD9-CM Code PSK49-EC Code Onset Dates Condition S tatus SNOMED Code Problem Bilateral primary osteoarthritis of knee M17.0 Active 840218808 Problem Chronic pain syndrome G89.4 Active 435669078 Problem Lung nodule < 6cm on CT R91.1 Active 533765932 Problem Panlobular emphysema J43.1 Active 8543950 Problem Anxiety disorder, unspecified F41.9 Active 533775020 Problem Other chronic pain G89.29 Active 8 2980951 Problem Lumbago with sciatica, left side M54.42 Active 685839343 Problem Lumbago with sciatica, right side M54.41 Active [id number] ALLERGIES No Information ENCOUNTERS Encounter Location Date Diagnosis [place] [address] [address] [facility] [place] [id number] [address] [place] [phone] Oct, [place] [address] [facility] [place] [id number] [address] [place] [address] Aug, Lung nodule < 6cm on CT R91. 1 and Panlobular emphysema J43.1 [place] [address] [facility] [place] [id number] [address] [place] [address] Jul, Chronic pain syndrome G89.4 [place] [address] [facility] [place] [id number] [address] [place] [address] Jul, Bilateral primary osteoarthr itis of knee M17.0 ; Lumbago with sciatica, left side M54.42 and Encounter for immunization Z23 [facility] [address] [facility] [place] [id number] [address] [place] [address] Jun, Chronic pain syndrome G89.4 [facility] [address] [facility] [place] [facility] [id number] [address] [place] [address] May, Lung nodule < 6cm on CT R91. 1 ; SOB (shortness of breath) R06.02 ; Coughing R05 and Panlobular emphysema J43.1 [facility] [address] [facility] [place] [facility] [id number] [address] [place] [address] May, [facility] [address] [facility] [place] [facility] [id number] [address] [place] [address] May, Chronic pain syndrome G89.4 [facility] [address] [facility] [place] [facility] [id number] [address] [place] [address] May, [facility] [address] [place] [id number] [address] [place] [address] Apr, Chronic pain syndrome G89.4 [facility] [address] [place] [id number] [address] [place] [address] Apr, Encounter for immunization Z 23 ; Lumbago with sciatica, left side M54.42 and Tinea corporis B35.4 [facility] [address] [facility] [place] [facility] [id number] [address] [place] [address] Mar, [facility] [address] [place] [id number] [address] [place] [address] Mar, [facility] [address] [place] [id number] [address] [place] [address] Mar, Chronic pain syndrome G89.4 [facility] [address] [facility] [place] [id number] [address] [place] [address] Mar, [facility] [address] [place] [id number] [address] [place] [address] Mar, [facility] [address] [place] [id number] [address] [place] [address] Mar, [facility] [address] [place] [id number] [address] [place] [address] Feb, Chronic pain syndrome G89.4 [facility] [address] [facility] [place] [facility] [id number] [address] [place] [address] Feb, [facility] [address] [id number] [address] [place] [address] Jan, Chronic pain syndrome G89.4 [facility] [address] [facility] [place] [facility] [id number] [address] [place] [phone] Dec, Chronic pain syndrome G89.4 [facility] [address] [facility] [place] [facility] [id number] [address] [place] [address] Dec, Chronic pain syndrome G89.4 and Anxiety disorder, unspecified F41.9 [facility] [address] [facility] [place] [facility] [id number] [address] [place] [address] Nov, [facility] [address] [facility] [place] [id number] [address] [place] [address] Oct, [facility] [address] [facility] [place] [id number] [address] [place] [phone] Oct, [facility] [address] [facility] [place] [id number] [address] [place] [address] Oct, Acute bronchitis, unspecifie d organism J20.9 and Nasal congestion R09.81 [facility] [address] [facility] [place] [id number] [address] [place] [address] September, [facility] [address] [facility] [place] [id number] [address] [place] [address] Aug, Lumbago with sciatica, left side M54.42 ; Lumbago with sciatica, right side M54.41 and Other chronic pain G89.29 [facility] [address] [facility] [place] [id number] [address] [place] [address] Aug, [facility] [address] [facility] [place] [facility] [id number] [address] [place] [address] Jul, [facility] [address] [id number] [address] [place] [address] Jun, [facility] [address] [id number] [address] [place] [address] May, [facility] [address] [id number] [address] [place] [address] Apr, Pain in right knee M25.561 [facility] [address] [id number] [address] [place] [address] Apr, Pain in right knee M25.561 [facility] [address] [id number] [address] [place] [address] Mar, Pain in right knee M25.561 [facility] [address] [id number] [address] [place] [address] Mar, [facility] [address] [id number] [address] [place] [address] Mar, Chronic pain syndrome G89.4 [facility] [address] [id number] [address] [place] [phone] Feb, [facility] [address] [id number] [address] [place] [address] Feb, [facility] [address] [id number] [address] [place] [address] Dec, [facility] [address] [id number] [address] [place] [address] Dec, [facility] [address] [id number] [address] [place] [address] Nov, Chronic pain syndrome G89.4 [facility] [address] [id number] [address] [place] [address] Nov, [facility] [address] [id number] [address] [place] [address] Oct, [facility] [address] [id number] [address] [place] [address] Oct, [facility] [address] [id number] [address] [place] [address] Oct, [facility] [address] [facility] [place] [facility] [id number] [address] [place] [address] Oct, Allergic reaction to drug, s ubsequent encounter T78.40XD [facility] [address] [id number] [address] [place] [address] September, [facility] [address] [facility] [place] [id number] [address] [place] [address] September, [facility] [address] [facility] [place] [facility] [id number] [address] [place] [address] September, Low back pain radiating to l ower extremity M54.5 [facility] [address] [facility] [place] [facility] [id number] [address] [place] [address] Aug, [facility] [address] [id number] [address] [place] [address] Aug, [facility] [address] [facility] [place] [id number] [address] [place] [address] Aug, [facility] [address] [facility] [place] [id number] [address] [place] [address] Aug, [facility] [address] [facility] [place] [id number] [address] [place] [address] Aug, Incisional infection, initia l encounter T81.4XXA [facility] [address] [id number] [address] [place] [address] Aug, [facility] [address] [facility] [place] [id number] [address] [place] [address] Jul, [facility] [address] [facility] [place] [id number] [address] [place] [address] Jul, [facility] [address] [facility] [place] [id number] [address] [place] [address] Jul, Chronic pain syndrome G89.4 [facility] [address] [id number] [address] [place] [address] Jul, Pre-op evaluation Z01.818 [facility] [address] [id number] [address] [place] [address] Jul, [facility] [address] [id number] [address] [place] [address] Jun, Anxiety disorder, unspecifie d F41.9 and Chronic pain syndrome G89.4 [facility] [address] [id number] [address] [place] [address] Jun, [facility] [address] [id number] [address] [place] [phone] Jun, [facility] [address] [id number] [address] [place] [address] Jun, [facility] [address] [id number] [address] [place] [address] Jun, [facility] [address] [facility] [place] [id number] [address] [place] [address] Jun, Lumbar neuritis M54.16 [facility] [address] [facility] [place] [id number] [address] [place] [address] May, [facility] [address] [id number] [address] [place] [address] May, [facility] [address] [facility] [place] [id number] [address] [place] [address] May, Encounter for therapeutic dr ug level monitoring Z51.81 ; Encounter for immunization Z23 and Chronic pain syndrome G89.4 [facility] [address] [id number] [address] [place] [address] May, Lumbar neuritis M54.16 [facility] [address] [id number] [address] [place] [address] May, [facility] [address] [id number] [address] [place] [address] Apr, Lumbar neuritis M54.16 [facility] [address] [id number] [address] [place] [address] Apr, [facility] [address] [id number] [address] [place] [address] Mar, Lumbar neuritis M54.16 [facility] [address] [id number] [address] [place] [address] Mar, [facility] [address] [id number] [address] [place] [address] Mar, [facility] [address] [id number] [address] [place] [address] Feb, Lumbar neuritis M54.16 [facility] [address] [id number] [address] [place] [address] Feb, Lumbar neuritis M54.16 [facility] [address] [id number] [address] [place] [address] Feb, [facility] [address] [id number] [address] [place] [phone] Feb, [facility] [address] [id number] [address] [place] [address] 25 Jan, 2017 [facility] [address] [id number] [address] [place] [address] 22 Jan, 2017 Peroneal tendonitis of left lower extremity M76.72 [facility] [address] [id number] [address] [place] [address] 20 Jan, 2017 Lumbar neuritis M54.16 [facility] [address] [id number] [address] [place] [address] 12 Jan, 2017 [facility] [address] [id number] [address] [place] [address] Dec, Lumbar neuritis M54.16 [facility] [address] [id number] [address] [place] [address] Dec, [facility] [address] [id number] [address] [place] [address] Dec, Pain in right knee M25.561 ; Lumbar neuritis M54.16 and Cervical neuritis M54.12 [facility] [address] [id number] [address] [place] [address] Dec, [facility] [address] [id number] [address] [place] [address] Dec, [facility] [address] [id number] [address] [place] [address] Nov, Lumbar neuritis M54.16 [facility] [address] [id number] [address] [place] [address] Nov, Bilateral primary osteoarthr itis of knee M17.0 [facility] [address] [id number] [address] [place] [address] Nov, [facility] [address] [id number] [address] [place] [address] Nov, Bronchitis J40 and Plantar f asciitis M72.2 [facility] [address] [id number] [address] [place] [address] Nov, [facility] [address] [id number] [address] [place] [address] Oct, Lumbar neuritis M54.16 [facility] [address] [id number] [address] [place] [address] Oct, Lumbar neuritis M54.16 [facility] [address] [id number] [address] [place] [address] Oct, Lumbar neuritis M54.16 [facility] [address] [id number] [address] [place] [address] Oct, Plantar fasciitis M72.2 and Pain in right knee M25.561 [facility] [address] [id number] [address] [place] [address] 16 Oct, 2016 Lumbar neuritis M54.16 ; Cer vical neuritis M54.12 ; Other specified abdominal hernia without obstruction or gangrene K45.8 ; Heel spur, left M77.32 ; Plantar fasciitis M72.2 and Pain in right knee M25.561 [facility] [address] [id number] [address] [place] [address] 13 Oct, 2016 [facility] [address] [id number] [address] [place] [id number] 14 Aug, 2014 [facility] [address] [id number] [address] [place] [address] Aug, [facility] [address] [id number] [address] [place] [address] Apr, [facility] [address] [id number] [address] [place] [address] Apr, [facility] [address] [id number] [address] [place] [address] Mar, [facility] [address] [id number] [address] [place] [phone] Mar, [facility] [address] [id number] [address] [place] [address] Feb, [facility] [address] [id number] [address] [place] [address] Feb, [facility] [address] [id number] [address] [place] [address] Feb, [facility] [address] [id number] [address] [place] [address] Feb, [facility] [address] [id number] [address] [place] [address] Feb, [facility] [address] [id number] [address] [place] [address], [place] [address] 07 Feb, 2013 [facility] [address] [id number] [address] [place] [address], [place] [address] 07 Feb, 2013 [facility] [address] [id number] [address] [place] [address], [place] [address] 07 Oct, 2013 [facility] [address] [id number] [address] [place] [address], [place] [address] 30 Sep, 2013 [facility] [address] [id number] [address] [place] [address], [place] [address] 30 Sep, 2013 [facility] [address] [id number] [address] [place] [address], [place] [address] 30 Sep, 2013 [facility] [address] [id number] [address] [place] [address], [place] [address] 30 Sep, 2013 [facility] [address] [id number] [address] [place] [address], [place] [address] 30 Sep, 2013 [facility] [address] [id number] [address] [place] [address], [place] [address] 30 Sep, 2013 [facility] [address] [id number] [address] [place] [address], [place] [address] 26 Sep, 2013 [facility] [address] [id number] [address] [place] [address], [place] [address] 26 Sep, 2013 [facility] [address] [id number] [address] [place] [address], [place] [address] 22 Sep, 2013 [facility] [address] [id number] [address] [place] [address], [place] [address] 22 Sep, 2013 [facility] [address] [id number] [address] [place] [address], [place] [address] 16 Sep, 2013 [facility] [address] [id number] [address] [place] [address], [place] [address] 16 Sep, 2013 [facility] [address] [id number] [address] [place] [address], [place] [address] 16 Sep, 2013 [facility] [address] [id number] [facility] [place] [address] 16 Jan, 2013 [facility] [address] [id number] [address] [place] [address], [place] [address] 12 Jan, 2013 [facility] [address] [id number] [address] [place] [address], [place] [address] 12 Jan, 2013 [facility] [address] [id number] [address] [place] [address], [place] [address] 12 Jan, 2013 [facility] [address] [id number] [address] [place] [address], [place] [address] 12 Jan, 2013 [facility] [address] [id number] [address] [place] [address], [place] [address] 09 Jan, 2013 [facility] [address] [id number] [address] [place] [address], [place] [address] 09 Jan, 2013 [facility] [address] [id number] [address] [place] [address], [place] [address] 09 Jan, 2013 [facility] [address] [id number] [address] [place] [address], [place] [address] 09 Jan, 2013 [facility] [address] [id number] [address] [place] [address], [place] [address] 05 Jan, 2013 [facility] [address] [id number] [address] [place] [address], [place] [address] Jan, 2013 [facility] [address] [id number] [address] [place] [address], [place] [address] Dec, [facility] [address] [id number] [address] [place] [address], [place] [address] Dec, [facility] [address] [id number] [address] [place] [address], [place] [address] Dec, [facility] [address] [id number] [address] [place] [address], [place] [address] Dec, [facility] [address] [id number] [address] [place] [address], [place] [address] Dec, [facility] [address] [id number] [facility] [place] [address] Dec, [facility] [address] [id number] [facility] [place] [address] Dec, [facility] [address] [id number] [facility] [place] [address] Dec, [facility] [address] [id number] [facility] [place] [address] Dec, [facility] [address] [id number] [address] [place] [address], [place] [address] Dec, [facility] [address] [id number] [address] [place] [address], [place] [address] Dec, [facility] [address] [id number] [address] [place] [address], [place] [id number] Dec, [facility] [address] [id number] [address] [place] [address], [place] [id number] Dec, [facility] [address] [id number] [address] [place] [address], [place] [id number] Dec, [facility] [address] [id number] [address] [place] [address], [place] [id number] Dec, [facility] [address] [id number] [address] [place] [address], [place] [id number] Dec, [facility] [address] [id number] [address] [place] [address], [place] [id number] Dec, [facility] [address] [id number] [address] [place] [address], [place] [id number] Dec, [facility] [address] [id number] [address] [place] [address], [place] [id number] Dec, [facility] [address] [id number] [address] [place] [address], [place] [id number] Nov, [facility] [address] [id number] [address] [place] [id number] Nov, [facility] [address] [id number] [address] [place] [id number] Nov, [facility] [address] [id number] [address] [place] [id number] Nov, [facility] [address] [id number] [address] [place] [id number] Nov, [facility] [address] [id number] [address] [place] [id number] Nov, [facility] [address] [id number] [address] [place] [id number] Nov, [facility] [address] [id number] [address] [place] [id number] Nov, [facility] [address] [id number] [address] [place] [id number] Nov, [facility] [address] [id number] [address] [place] [id number] Nov, [facility] [address] [id number] [address] [place] [id number] Nov, [facility] [address] [id number] [address] [place] [id number] Oct, [facility] [address] [id number] [address] [place] [id number] Oct, [facility] [address] [id number] [address] [place] [id number] Oct, [facility] [address] [id number] [address] [place] [id number] Apr, IMMUNIZATIONS No Known Immunizations SOCIAL HISTORY Never Assessed REASON FOR VISIT PLAN OF CARE VITAL SIGNS Height 70 in 2014-01-05 Weight 169.01 lbs 2014-01-05 Temperature 97.4 degrees Fahrenheit 2014-01-05 Heart Rate 72 bpm 2014-01-05 Respiratory Rate 16 2014-01-05 Blood pressure systolic 200 mmHg 2014-01-05 Blood pressure diastolic 100 mmHg 2014-01-05 MEDICATIONS Unknown Medications RESULTS No Results PROCEDURES [...]
--- OUTSIDE RECORDS SUMMARY | 2019-11-23 06:16 | XMS REPORT ---
Author Author Pal Lopez Organization [facility] Address [address] [place] [address] Care Team Providers Care Realty Specialist Name Role Phone JANE Lopez Unavailable PROBLEMS Type Condition ICD9-CM Code [id number] Code Onset Dates Condition S tatus SNOMED Code Problem Bilateral primary osteoarthritis of knee M17.0 Active 727768518 Problem Chronic pain syndrome G89.4 Active 704681790 Problem Lung nodule < 6cm on CT R91.1 Active 518903644 Problem Panlobular emphysema J43.1 Active 1861968 Problem Anxiety disorder, unspecified F41.9 Active 669748837 Problem Other chronic pain G89.29 Active 8 8416782 Problem Lumbago with sciatica, left side M54.42 Active 454655574 Problem Lumbago with sciatica, right side M54.41 Active [id number] ALLERGIES No Information ENCOUNTERS Encounter Location Date Diagnosis [place] [address] [facility] [id number] [address] [place] [id number] Oct, [place] [address] [facility] [id number] [address] [place] [address] Aug, Lung nodule < 6cm on CT R91. 1 and Panlobular emphysema J43.1 [place] [address] [facility] [id number] [address] [place] [address] Jul, Chronic pain syndrome G89.4 [place] [address] [facility] [id number] [address] [place] [address] Jul, Bilateral primary osteoarthr itis of knee M17.0 ; Lumbago with sciatica, left side M54.42 and Encounter for immunization Z23 [place] [address] [facility] [id number] [address] [place] [address] Jun, Chronic pain syndrome G89.4 [facility] [address] [facility] [id number] [address] [place] [address] May, Lung nodule < 6cm on CT R91. 1 ; SOB (shortness of breath) R06.02 ; Coughing R05 and Panlobular emphysema J43.1 [facility] [address] [facility] [id number] [address] [place] [address] May, [facility] [address] [facility] [id number] [address] [place] [address] May, Chronic pain syndrome G89.4 [facility] [address] [facility] [id number] [address] [place] [address] May, [facility] [address] [place] [id number] [address] [place] [address] Apr, Chronic pain syndrome G89.4 [facility] [address] [place] [id number] [address] [place] [address] Apr, Encounter for immunization Z 23 ; Lumbago with sciatica, left side M54.42 [address].4 [facility] [address] [facility] [id number] [address] [place] [address] Mar, [facility] [address] [place] [id number] [address] [place] [address] Mar, [facility] [address] [place] [id number] [address] [place] [address] Mar, Chronic pain syndrome G89.4 [facility] [address] [facility] [id number] [address] [place] [address] Mar, [facility] [address] [place] [id number] [address] [place] [address] Mar, [facility] [address] [place] [id number] [address] [place] [address] Mar, [facility] [address] [place] [id number] [address] [place] [address] Feb, Chronic pain syndrome G89.4 [facility] [address] [facility] [id number] [address] [place] [address] Feb, [facility] [address] [id number] [address] [place] [address] Jan, Chronic pain syndrome G89.4 [facility] [address] [facility] [id number] [address] [place] [address] Dec, Chronic pain syndrome G89.4 [facility] [address] [facility] [id number] [address] [place] [address] Dec, Chronic pain syndrome G89.4 and Anxiety disorder, unspecified F41.9 [facility] [address] [facility] [id number] [address] [place] [address] Nov, [facility] [address] [facility] [id number] [address] [place] [address] Oct, [facility] [address] [facility] [id number] [address] [place] [address] Oct, [facility] [address] [facility] [id number] [address] [place] [address] Oct, Acute bronchitis, unspecifie d organism J20.[address]09.81 [facility] [address] [facility] [id number] [address] [place] [address] September, [facility] [address] [facility] [id number] [address] [place] [address] Aug, Lumbago with sciatica, left side M54.42 ; Lumbago with sciatica, right side M54.41 and Other chronic pain G89.29 [facility] [address] [facility] [id number] [address] [place] [address] Aug, [facility] [address] [facility] [id number] [address] [place] [address] Jul, [facility] [address] [id number] [address] [place] [address] Jun, [facility] [address] [id number] [address] [place] [address] May, [facility] [address] [id number] [address] [place] [address] Apr, Pain in right knee M25.561 [facility] [address] [id number] [address] [place] [address] Apr, Pain in right knee M25.561 [facility] [address] [id number] [address] [place] [address] Mar, Pain in right knee M25.561 [facility] [address] [id number] [address] [place] [address] Mar, [facility] [address] [id number] [address] [place] [address] Mar, Chronic pain syndrome G89.4 [facility] [address] [id number] [address] [place] [address] Feb, [facility] [address] [id number] [address] [place] [address] Feb, [facility] [address] [id number] [address] [place] [address] Dec, [facility] [address] [id number] [address] [place] [address] Dec, [facility] [address] [id number] [address] [place] [address] Nov, Chronic pain syndrome G89.4 [facility] [address] [id number] [address] [place] [address] Nov, [facility] [address] [id number] [address] [place] [address] Oct, [facility] [address] [id number] [address] [place] [address] Oct, [facility] [address] [id number] [address] [place] [address] Oct, [facility] [address] [facility] [id number] [address] [place] [address] Oct, Allergic reaction to drug, s ubsequent encounter T78.40XD [facility] [address] [id number] [address] [place] [address] September, [facility] [address] [facility] [id number] [address] [place] [address] September, [facility] [address] [facility] [id number] [address] [place] [address] September, Low back pain radiating to l ower extremity M54.5 [facility] [address] [facility] [id number] [address] [place] [address] Aug, [facility] [address] [id number] [address] [place] [address] Aug, [facility] [address] [facility] [id number] [address] [place] [address] Aug, [facility] [address] [facility] [id number] [address] [place] [address] Aug, [facility] [address] [facility] [id number] [address] [place] [address] Aug, Incisional infection, initia l encounter T81.4XXA [facility] [address] [id number] [address] [place] [address] Aug, [facility] [address] [facility] [id number] [address] [place] [address] Jul, [facility] [address] [facility] [id number] [address] [place] [address] Jul, [facility] [address] [facility] [id number] [address] [place] [address] Jul, Chronic pain syndrome G89.4 [facility] [address] [id number] [address] [place] [address] Jul, Pre-op evaluation Z01.818 [facility] [address] [id number] [address] [place] [address] Jul, [facility] [address] [id number] [address] [place] [address] Jun, Anxiety disorder, unspecifie d F41.9 and Chronic pain syndrome G89.4 [facility] [address] [id number] [address] [place] [address] Jun, [facility] [address] [id number] [address] [place] [address] Jun, [facility] [address] [id number] [address] [place] [address] Jun, [facility] [address] [id number] [address] [place] [address] Jun, [facility] [address] [facility] [id number] [address] [place] [address] Jun, Lumbar neuritis M54.16 [facility] [address] [facility] [id number] [address] [place] [address] May, [facility] [address] [id number] [address] [place] [address] May, [facility] [address] [facility] [id number] [address] [place] [address] May, Encounter for therapeutic dr ug level monitoring Z51.81 ; Encounter for immunization Z23 and Chronic pain syndrome G89.4 [facility] [address] [id number] [address] [place] [address] May, Lumbar neuritis M54.16 [facility] [address] [id number] [address] [place] [address] May, [facility] [address] [id number] [address] [place] [address] Apr, Lumbar neuritis M54.16 [facility] [address] [id number] [address] [place] [address] Apr, [facility] [address] [id number] [address] [place] [address] Mar, Lumbar neuritis M54.16 [facility] [address] [id number] [address] [place] [address] Mar, [facility] [address] [id number] [address] [place] [address] Mar, [facility] [address] [id number] [address] [place] [address] Feb, Lumbar neuritis M54.16 [facility] [address] [id number] [address] [place] [address] Feb, Lumbar neuritis M54.16 [facility] [address] [id number] [address] [place] [address] Feb, [facility] [address] [id number] [address] [place] [address] Feb, [facility] [address] [id number] [address] [place] [address] 25 Jan, 2017 [facility] [address] [id number] [address] [place] [address] 22 Jan, 2017 Peroneal tendonitis of left lower extremity M76.72 [facility] [address] [id number] [address] [place] [address] 20 Jan, [address] [facility] [address] [id number] [address] [place] [address] 12 Jan, 2017 [facility] [address] [id number] [address] [place] [address] Dec, Lumbar neuritis M54.16 [facility] [address] [id number] [address] [place] [address] Dec, [facility] [address] [id number] [address] [place] [address] Dec, Pain in right knee M25.561 ; Lumbar neuritis M54.16 and Cervical neuritis M54.12 [facility] [address] [id number] [address] [place] [address] Dec, [facility] [address] [id number] [address] [place] [address] Dec, [facility] [address] [id number] [address] [place] [address] Nov, Lumbar neuritis M54.16 [facility] [address] [id number] [address] [place] [address] Nov, Bilateral primary osteoarthr itis of knee M17.0 [facility] [address] [id number] [address] [place] [address] Nov, [facility] [address] [id number] [address] [place] [address] Nov, Bronchitis J40 and Plantar f asciitis M72.2 [facility] [address] [id number] [address] [place] [address] Nov, [facility] [address] [id number] [address] [place] [address] Oct, Lumbar neuritis M54.16 [facility] [address] [id number] [address] [place] [address] Oct, Lumbar neuritis M54.16 [facility] [address] [id number] [address] [place] [address] Oct, Lumbar neuritis M54.16 [facility] [address] [id number] [address] [place] [address] Oct, Plantar fasciitis M72.2 and Pain in right knee M25.561 [facility] [address] [id number] [address] [place] [address] 16 Oct, 2016 Lumbar neuritis M54.16 ; Cer vical neuritis M54.12 ; Other specified abdominal hernia without obstruction or gangrene K45.8 ; Heel spur, left M77.32 ; Plantar fasciitis M72.2 and Pain in right knee M25.561 [facility] [address] [id number] [address] [place] [address] 13 Oct, 2016 [facility] [address] [id number] [address] [place] [address] 14 Aug, 2014 [facility] [address] [id number] [address] [place] [address] Aug, [facility] [address] [id number] [address] [place] [address] Apr, [facility] [address] [id number] [address] [place] [address] Apr, [facility] [address] [id number] [address] [place] [address] Mar, [facility] [address] [id number] [address] [place] [address] Mar, [facility] [address] [id number] [address] [place] [address] Feb, [facility] [address] [id number] [address] [place] [address] Feb, [facility] [address] [id number] [address] [place] [address] Feb, [facility] [address] [id number] [address] [place] [address] Feb, [facility] [address] [id number] [address] [place] [address] Feb, [facility] [address] [id number] [address] [place] [address], [place] [address] 07 Feb, 2013 [facility] [address] [id number] [address] [place] [address], [place] [address] 07 Feb, 2013 [facility] [address] [id number] [address] [place] [address], [place] [address] 07 Oct, 2013 [facility] [address] [id number] [address] [place] [address], [place] [address] 30 Sep, 2013 [facility] [address] [id number] [address] [place] [address], [place] [address] 30 Sep, 2013 [facility] [address] [id number] [address] [place] [address], [place] [address] 30 Sep, 2013 [facility] [address] [id number] [address] [place] [address], [place] [address] 30 Sep, 2013 [facility] [address] [id number] [address] [place] [address], [place] [address] 30 Sep, 2013 [facility] [address] [id number] [address] [place] [address], [place] [address] 30 Sep, 2013 [facility] [address] [id number] [address] [place] [address], [place] [address] 26 Sep, 2013 [facility] [address] [id number] [address] [place] [address], [place] [address] 26 Sep, 2013 [facility] [address] [id number] [address] [place] [address], [place] [address] 22 Sep, 2013 [facility] [address] [id number] [address] [place] [address], [place] [address] 22 Sep, 2013 [facility] [address] [id number] [address] [place] [address], [place] [address] 16 Sep, 2013 [facility] [address] [id number] [address] [place] [address], [place] [address] 16 Sep, 2013 [facility] [address] [id number] [address] [place] [address], [place] [address] 16 Sep, 2013 [facility] [address] [id number] [facility] [place] [address] 16 Jan, 2013 [facility] [address] [id number] [address] [place] [address], [place] [address] 12 Jan, 2013 [facility] [address] [id number] [address] [place] [address], [place] [address] 12 Jan, 2013 [facility] [address] [id number] [address] [place] [address], [place] [address] 12 Jan, 2013 [facility] [address] [id number] [address] [place] [address], [place] [address] 12 Jan, 2013 [facility] [address] [id number] [address] [place] [address], [place] [address] 09 Jan, 2013 [facility] [address] [id number] [address] [place] [address], [place] [address] 09 Jan, 2013 [facility] [address] [id number] [address] [place] [address], [place] [address] 09 Jan, 2013 [facility] [address] [id number] [address] [place] [address], [place] [address] 09 Jan, 2013 [facility] [address] [id number] [address] [place] [address], [place] [address] 05 Jan, 2013 [facility] [address] [id number] [address] [place] [address], [place] [address] Jan, 2013 [facility] [address] [id number] [address] [place] [address], [place] [address] Dec, [facility] [address] [id number] [address] [place] [address], [place] [address] Dec, [facility] [address] [id number] [address] [place] [address], [place] [address] Dec, [facility] [address] [id number] [address] [place] [address], [place] [address] Dec, [facility] [address] [id number] [address] [place] [address], [place] [address] Dec, [facility] [address] [id number] [facility] [place] [address] Dec, [facility] [address] [id number] [facility] [place] [address] Dec, [facility] [address] [id number] [facility] [place] [address] Dec, [facility] [address] [id number] [facility] [place] [address] Dec, [facility] [address] [id number] [address] [place] [address], [place] [address] Dec, [facility] [address] [id number] [address] [place] [address], [place] [address] Dec, [facility] [address] [id number] [address] [place] [address], [place] [address] Dec, [facility] [address] [id number] [address] [place] [address], [place] [address] Dec, [facility] [address] [id number] [address] [place] [address], [place] [address] Dec, [facility] [address] [id number] [address] [place] [address], [place] [address] Dec, [facility] [address] [id number] [address] [place] [address], [place] [address] Dec, [facility] [address] [id number] [address] [place] [address], [place] [address] Dec, [facility] [address] [id number] [address] [place] [address], [place] [address] Dec, [facility] [address] [id number] [address] [place] [address], [place] [address] Dec, [facility] [address] [id number] [address] [place] [address], [place] [address] Nov, [facility] [address] [id number] [address] [place] [id number] Nov, [facility] [address] [id number] [address] [place] [id number] Nov, [facility] [address] [id number] [address] [place] [id number] Nov, [facility] [address] [id number] [address] [place] [id number] Nov, [facility] [address] [id number] [address] [place] [id number] Nov, [facility] [address] [id number] [address] [place] [id number] Nov, [facility] [address] [id number] [address] [place] [id number] Nov, [facility] [address] [id number] [address] [place] [id number] Nov, [facility] [address] [id number] [address] [place] [id number] Nov, [facility] [address] [id number] [address] [place] [id number] Nov, [facility] [address] [id number] [address] [place] [id number] Oct, [facility] [address] [id number] [address] [place] [id number] Oct, [facility] [address] [id number] [address] [place] [id number] Oct, [facility] [address] [id number] [address] [place] [id number] Apr, IMMUNIZATIONS No Known Immunizations SOCIAL HISTORY [...]
--- OUTSIDE RECORDS SUMMARY | 2019-11-23 06:16 | XMS REPORT ---
Author Author Pal Lopez Organization [facility] Address [address] [place] [address] Care Team Providers Care Project Coordinator Name Role Phone JANE Lopez Unavailable PROBLEMS Type Condition ICD9-CM Code OGC68-QA Code Onset Dates Condition S tatus SNOMED Code Problem Bilateral primary osteoarthritis of knee M17.0 Active 586614219 Problem Chronic pain syndrome G89.4 Active 970637450 Problem Lung nodule < 6cm on CT R91.1 Active 738524734 Problem Panlobular emphysema J43.1 Active 8748628 Problem Anxiety disorder, unspecified F41.9 Active 183696557 Problem Other chronic pain G89.29 Active 8 1329854 Problem Lumbago with sciatica, left side M54.42 Active 306359012 Problem Lumbago with sciatica, right side M54.41 Active [id number] ALLERGIES No Information ENCOUNTERS Encounter Location Date Diagnosis [place] [address] [facility] [id number] [address] [place] [address] Oct, [place] [address] [facility] [id number] [address] [place] [address] Aug, Lung nodule < 6cm on CT R91. 1 and Panlobular emphysema J43.1 [place] [id number] [facility] [id number] [address] [place] [address] Jul, Chronic pain syndrome G89.4 [place] [address] [facility] [id number] [address] [place] [address] Jul, Bilateral primary osteoarthr itis of knee M17.0 ; Lumbago with sciatica, left side M54.42 and Encounter for immunization Z23 [place] [address] [facility] [id number] [address] [place] [address] Jun, Chronic pain syndrome G89.4 [facility] [address] [facility] [id number] [address] [place] [address] May, Lung nodule < 6cm on CT R91. 1 ; SOB (shortness of breath) R06.02 ; Coughing R05 and Panlobular emphysema J43.1 [facility] [address] [facility] [id number] [address] [place] [address] May, [facility] [address] [facility] [id number] [address] [place] [address] May, Chronic pain syndrome G89.4 [facility] [address] [facility] [id number] [address] [place] [address] May, [facility] [address] [place] [id number] [address] [place] [address] Apr, Chronic pain syndrome G89.4 [facility] [address] [place] [id number] [address] [place] [address] Apr, Encounter for immunization Z 23 ; Lumbago with sciatica, left side M54.42 and Tinea corporis B35.4 [facility] [address] [facility] [id number] [address] [place] [address] Mar, [facility] [address] [place] [id number] [address] [place] [address] Mar, [facility] [address] [place] [id number] [address] [place] [address] Mar, Chronic pain syndrome G89.4 [facility] [address] [facility] [id number] [address] [place] [address] Mar, [facility] [address] [place] [id number] [address] [place] [address] Mar, [facility] [address] [place] [id number] [address] [place] [address] Mar, [facility] [address] [place] [id number] [address] [place] [address] Feb, Chronic pain syndrome G89.4 [facility] [address] [facility] [id number] [address] [place] [address] Feb, [facility] [address] [id number] [address] [place] [address] Jan, Chronic pain syndrome G89.4 [facility] [address] [facility] [id number] [address] [place] [address] Dec, Chronic pain syndrome G89.4 [facility] [address] [facility] [id number] [address] [place] [address] Dec, Chronic pain syndrome G89.4 and Anxiety disorder, unspecified F41.9 [facility] [address] [facility] [id number] [address] [place] [address] Nov, [facility] [address] [facility] [id number] [address] [place] [address] Oct, [facility] [address] [facility] [id number] [address] [place] [address] Oct, [facility] [address] [facility] [id number] [address] [place] [address] Oct, Acute bronchitis, unspecifie d organism J20.9 and Nasal congestion R09.81 [facility] [address] [facility] [id number] [address] [place] [address] September, [facility] [address] [facility] [id number] [address] [place] [address] Aug, Lumbago with sciatica, left side M54.42 ; Lumbago with sciatica, right side M54.41 and Other chronic pain G89.29 [facility] [address] [facility] [id number] [address] [place] [address] Aug, [facility] [address] [facility] [id number] [address] [place] [address] Jul, [facility] [address] [id number] [address] [place] [address] Jun, [facility] [address] [id number] [address] [place] [address] May, [facility] [address] [id number] [address] [place] [address] Apr, Pain in right knee M25.561 [facility] [address] [id number] [address] [place] [address] Apr, Pain in right knee M25.561 [facility] [address] [id number] [address] [place] [address] Mar, Pain in right knee M25.561 [facility] [address] [id number] [address] [place] [address] Mar, [facility] [address] [id number] [address] [place] [address] Mar, Chronic pain syndrome G89.4 [facility] [address] [id number] [address] [place] [address] Feb, [facility] [address] [id number] [address] [place] [address] Feb, [facility] [address] [id number] [address] [place] [address] Dec, [facility] [address] [id number] [address] [place] [address] Dec, [facility] [address] [id number] [address] [place] [address] Nov, Chronic pain syndrome G89.4 [facility] [address] [id number] [address] [place] [address] Nov, [facility] [address] [id number] [address] [place] [address] Oct, [facility] [address] [id number] [address] [place] [address] Oct, [facility] [address] [id number] [address] [place] [address] Oct, [facility] [address] [facility] [id number] [address] [place] [address] Oct, Allergic reaction to drug, s ubsequent encounter T78.40XD [facility] [address] [id number] [address] [place] [address] September, [facility] [address] [facility] [id number] [address] [place] [address] September, [facility] [address] [facility] [id number] [address] [place] [address] September, Low back pain radiating to l ower extremity M54.5 [facility] [address] [facility] [id number] [address] [place] [address] Aug, [facility] [address] [id number] [address] [place] [address] Aug, [facility] [address] [facility] [id number] [address] [place] [address] Aug, [facility] [address] [facility] [id number] [address] [place] [address] Aug, [facility] [address] [facility] [id number] [address] [place] [address] Aug, Incisional infection, initia l encounter T81.4XXA [facility] [address] [id number] [address] [place] [address] Aug, [facility] [address] [facility] [id number] [address] [place] [address] Jul, [facility] [address] [facility] [id number] [address] [place] [address] Jul, [facility] [address] [facility] [id number] [address] [place] [address] Jul, Chronic pain syndrome G89.4 [facility] [address] [id number] [address] [place] [address] Jul, Pre-op evaluation Z01.818 [facility] [address] [id number] [address] [place] [address] Jul, [facility] [address] [id number] [address] [place] [address] Jun, Anxiety disorder, unspecifie d F41.9 and Chronic pain syndrome G89.4 [facility] [address] [id number] [address] [place] [address] Jun, [facility] [address] [id number] [address] [place] [address] Jun, [facility] [address] [id number] [address] [place] [address] Jun, [facility] [address] [id number] [address] [place] [address] Jun, [facility] [address] [facility] [id number] [address] [place] [address] Jun, Lumbar neuritis M54.16 [facility] [address] [facility] [id number] [address] [place] [address] May, [facility] [address] [id number] [address] [place] [address] May, [facility] [address] [facility] [id number] [address] [place] [address] May, Encounter for therapeutic dr ug level monitoring Z51.81 ; Encounter for immunization Z23 and Chronic pain syndrome G89.4 [facility] [address] [id number] [address] [place] [address] May, Lumbar neuritis M54.16 [facility] [address] [id number] [address] [place] [address] May, [facility] [address] [id number] [address] [place] [address] Apr, Lumbar neuritis M54.16 [facility] [address] [id number] [address] [place] [address] Apr, [facility] [address] [id number] [address] [place] [address] Mar, Lumbar neuritis M54.16 [facility] [address] [id number] [address] [place] [address] Mar, [facility] [address] [id number] [address] [place] [address] Mar, [facility] [address] [id number] [address] [place] [address] Feb, Lumbar neuritis M54.16 [facility] [address] [id number] [address] [place] [address] Feb, Lumbar neuritis M54.16 [facility] [address] [id number] [address] [place] [address] Feb, [facility] [address] [id number] [address] [place] [address] Feb, [facility] [address] [id number] [address] [place] [address] 25 Jan, 2017 [facility] [address] [id number] [address] [place] [address] 22 Jan, 2017 Peroneal tendonitis of left lower extremity M76.72 [facility] [address] [id number] [address] [place] [address] 20 Jan, 2017 Lumbar neuritis M54.16 [facility] [address] [id number] [address] [place] [address] 12 Jan, 2017 [facility] [address] [id number] [address] [place] [address] Dec, Lumbar neuritis M54.16 [facility] [address] [id number] [address] [place] [address] Dec, [facility] [address] [id number] [address] [place] [address] Dec, Pain in right knee M25.561 ; Lumbar neuritis M54.16 and Cervical neuritis M54.12 [facility] [address] [id number] [address] [place] [address] Dec, [facility] [address] [id number] [address] [place] [address] Dec, [facility] [address] [id number] [address] [place] [address] Nov, Lumbar neuritis M54.16 [facility] [address] [id number] [address] [place] [address] Nov, Bilateral primary osteoarthr itis of knee M17.0 [facility] [address] [id number] [address] [place] [address] Nov, [facility] [address] [id number] [address] [place] [address] Nov, Bronchitis J40 and Plantar f asciitis M72.2 [facility] [address] [id number] [address] [place] [address] Nov, [facility] [address] [id number] [address] [place] [address] Oct, Lumbar neuritis M54.16 [facility] [address] [id number] [address] [place] [address] Oct, Lumbar neuritis M54.16 [facility] [address] [id number] [address] [place] [address] Oct, Lumbar neuritis M54.16 [facility] [address] [id number] [address] [place] [address] Oct, Plantar fasciitis M72.2 and Pain in right knee M25.561 [facility] [address] [id number] [address] [place] [address] 16 Oct, 2016 Lumbar neuritis M54.16 ; Cer vical neuritis M54.12 ; Other specified abdominal hernia without obstruction or gangrene K45.8 ; Heel spur, left M77.32 ; Plantar fasciitis M72.2 and Pain in right knee M25.561 [facility] [address] [id number] [address] [place] [address] 13 Oct, 2016 [facility] [address] [id number] [address] [place] [address] 14 Aug, 2014 [facility] [address] [id number] [address] [place] [address] Aug, [facility] [address] [id number] [address] [place] [address] Apr, [facility] [address] [id number] [address] [place] [address] Apr, [facility] [address] [id number] [address] [place] [address] Mar, [facility] [address] [id number] [address] [place] [address] Mar, [facility] [address] [id number] [address] [place] [address] Feb, [facility] [address] [id number] [address] [place] [address] Feb, [facility] [address] [id number] [address] [place] [address] Feb, [facility] [address] [id number] [address] [place] [address] Feb, [facility] [address] [id number] [address] [place] [phone] Feb, [facility] [address] [id number] [address] [place] [address], [place] [address] 07 Feb, 2013 [facility] [address] [id number] [address] [place] [address], [place] [address] 07 Feb, 2013 [facility] [address] [id number] [address] [place] [address], [place] [id number] 07 Oct, 2013 [facility] [address] [id number] [address] [place] [address], [place] [address] 30 Sep, 2013 [facility] [address] [id number] [address] [place] [address], [place] [id number] 30 Sep, 2013 [facility] [address] [id number] [address] [place] [address], [place] [id number] 30 Sep, 2013 [facility] [address] [id number] [address] [place] [address], [place] [address] 30 Sep, 2013 [facility] [address] [id number] [address] [place] [address], [place] [address] 30 Sep, 2013 [facility] [address] [id number] [address] [place] [address], [place] [address] 30 Sep, 2013 [facility] [address] [id number] [address] [place] [address], [place] [address] 26 Sep, 2013 [facility] [address] [id number] [address] [place] [address], [place] [id number] 26 Sep, 2013 [facility] [address] [id number] [address] [place] [address], [place] [id number] 22 Sep, 2013 [facility] [address] [id number] [address] [place] [address], [place] [id number] 22 Sep, 2013 [facility] [address] [id number] [address] [place] [address], [place] [id number] 16 Sep, 2013 [facility] [address] [id number] [address] [place] [address], [place] [id number] 16 Sep, 2013 [facility] [address] [id number] [address] [place] [address], [place] [address] 16 Sep, 2013 [facility] [address] [id number] [facility] [place] [address] 16 Jan, 2013 [facility] [address] [id number] [address] [place] [address], [place] [address] 12 Jan, 2013 [facility] [address] [id number] [address] [place] [address], [place] [address] 12 Jan, 2013 [facility] [address] [id number] [address] [place] [address], [place] [address] 12 Jan, 2013 [facility] [address] [id number] [address] [place] [address], [place] [id number] 12 Jan, 2013 [facility] [address] [id number] [address] [place] [address], [place] [id number] 09 Jan, 2013 [facility] [address] [id number] [address] [place] [address], [place] [id number] 09 Jan, 2013 [facility] [address] [id number] [address] [place] [address], [place] [id number] 09 Jan, 2013 [facility] [address] [id number] [address] [place] [address], [place] [id number] 09 Jan, 2013 [facility] [address] [id number] [address] [place] [address], [place] [id number] 05 Jan, 2013 [facility] [address] [id number] [address] [place] [address], [place] [id number] Jan, 2013 [facility] [address] [id number] [address] [place] [address], [place] [address] Dec, [facility] [address] [id number] [address] [place] [address], [place] [id number] Dec, [facility] [address] [id number] [address] [place] [address], [place] [address] Dec, [facility] [address] [id number] [address] [place] [address], [place] [address] Dec, [facility] [address] [id number] [address] [place] [address], [place] [id number] Dec, [facility] [address] [id number] [facility] [place] [id number] Dec, [facility] [address] [id number] [facility] [place] [id number] Dec, [facility] [address] [id number] [facility] [place] [id number] Dec, [facility] [address] [id number] [facility] [place] [id number] Dec, [facility] [address] [id number] [address] [place] [address], [place] [id number] Dec, [facility] [address] [id number] [address] [place] [address], [place] [id number] Dec, [facility] [address] [id number] [address] [place] [address], [place] [id number] Dec, [facility] [address] [id number] [address] [place] [address], [place] [id number] Dec, [facility] [address] [id number] [address] [place] [address], [place] [id number] Dec, [facility] [address] [id number] [address] [place] [address], [place] [address] Dec, [facility] [address] [id number] [address] [place] [address], [place] [id number] Dec, [facility] [address] [id number] [address] [place] [address], [place] [id number] Dec, [facility] [address] [id number] [address] [place] [address], [place] [id number] Dec, [facility] [address] [id number] [address] [place] [address], [place] [id number] Dec, [facility] [address] [id number] [address] [place] [address], [place] [id number] Nov, [facility] [address] [id number] [address] [place] [id number] Nov, [facility] [address] [id number] [address] [place] [id number] Nov, [facility] [address] [id number] [address] [place] [id number] Nov, [facility] [address] [id number] [address] [place] [id number] Nov, [facility] [address] [id number] [address] [place] [id number] Nov, [facility] [address] [id number] [address] [place] [id number] Nov, [facility] [address] [id number] [address] [place] [id number] Nov, [facility] [address] [id number] [address] [place] [id number] Nov, [facility] [address] [id number] [address] [place] [id number] Nov, [facility] [address] [id number] [address] [place] [id number] Nov, [facility] [address] [id number] [address] [place] [id number] Oct, [facility] [address] [id number] [address] [place] [id number] Oct, [facility] [address] [id number] [address] [place] [id number] Oct, [facility] [address] [id number] [address] [place] [id number] Apr, IMMUNIZATIONS No Known Immunizations SOCIAL HISTORY [...]
--- OUTSIDE RECORDS SUMMARY | 2019-11-23 06:16 | XMS REPORT ---
Author Author Pal Lopez Organization [facility] [place] Address [address] [place] [address] Care Team Providers Care Cash Register Operator Name Role Phone JANE Lopez Unavailable PROBLEMS Type Condition ICD9-CM Code [id number] Code Onset Dates Condition S tatus SNOMED Code Problem Bilateral primary osteoarthritis of knee M17.0 Active 464006646 Problem Chronic pain syndrome G89.4 Active 769144356 Problem Lung nodule < 6cm on CT R91.1 Active 218908689 Problem Panlobular emphysema J43.1 Active 1139210 Problem Anxiety disorder, unspecified F41.9 Active 896047334 Problem Other chronic pain G89.29 Active 8 7194280 Problem Lumbago with sciatica, left side M54.42 Active 385885198 Problem Lumbago with sciatica, right side M54.41 Active [id number] ALLERGIES No Information ENCOUNTERS Encounter Location Date Diagnosis [place] [address] [address] [facility] [id number] [address] [place] [phone] Oct, [place] [address] [address] [facility] [id number] [address] [place] [address] Aug, Lung nodule < 6cm on CT R91. 1 and Panlobular emphysema J43.1 [place] [address] [address] [facility] [id number] [address] [place] [address] Jul, Chronic pain syndrome G89.4 [place] [address] [address] [facility] [id number] [address] [place] [address] Jul, Bilateral primary osteoarthr itis of knee M17.0 ; Lumbago with sciatica, left side M54.42 and Encounter for immunization Z23 [place] [id number] [facility] [id number] [address] [place] [address] Jun, Chronic pain syndrome G89.4 [facility] [place] [address] [facility] [id number] [address] [place] [address] May, Lung nodule < 6cm on CT R91. 1 ; SOB (shortness of breath) R06.02 ; Coughing R05 and Panlobular emphysema J43.1 [facility] [place] [address] [facility] [id number] [address] [place] [address] May, [facility] [place] [address] [facility] [id number] [address] [place] [address] May, Chronic pain syndrome G89.4 [facility] [place] [address] [facility] [id number] [address] [place] [address] May, [facility] [place] [address] [place] [id number] [address] [place] [address] Apr, Chronic pain syndrome G89.4 [facility] [place] [address] [place] [id number] [address] [place] [address] Apr, Encounter for immunization Z 23 ; Lumbago with sciatica, left side M54.42 and Tinea corporis B35.4 [facility] [place] [address] [facility] [id number] [address] [place] [address] Mar, [facility] [place] [address] [place] [id number] [address] [place] [address] Mar, [facility] [place] [address] [place] [id number] [address] [place] [address] Mar, Chronic pain syndrome G89.4 [facility] [place] [address] [facility] [id number] [address] [place] [address] Mar, [facility] [place] [address] [place] [id number] [address] [place] [address] Mar, [facility] [place] [address] [place] [id number] [address] [place] [address] Mar, [facility] [place] [address] [place] [id number] [address] [place] [address] Feb, Chronic pain syndrome G89.4 [facility] [place] [address] [facility] [id number] [address] [place] [address] Feb, [facility] [place] [address] [id number] [address] [place] [address] Jan, Chronic pain syndrome G89.4 [facility] [place] [address] [facility] [id number] [address] [place] [address] Dec, Chronic pain syndrome G89.4 [facility] [place] [address] [facility] [id number] [address] [place] [address] Dec, Chronic pain syndrome G89.4 and Anxiety disorder, unspecified F41.9 [facility] [place] [address] [facility] [id number] [address] [place] [address] Nov, [facility] [place] [address] [facility] [id number] [address] [place] [address] Oct, [facility] [place] [address] [facility] [id number] [address] [place] [address] Oct, [facility] [address] [facility] [id number] [address] [place] [address] Oct, Acute bronchitis, unspecifie d organism J20.9 and Nasal congestion R09.81 [facility] [place] [address] [facility] [id number] [address] [place] [address] September, [facility] [place] [address] [facility] [id number] [address] [place] [address] Aug, Lumbago with sciatica, left side M54.42 ; Lumbago with sciatica, right side M54.41 and Other chronic pain G89.29 [facility] [place] [address] [facility] [id number] [address] [place] [address] Aug, [facility] [place] [address] [facility] [id number] [address] [place] [address] Jul, [facility] [address] [id number] [address] [place] [address] Jun, [facility] [address] [id number] [address] [place] [address] May, [facility] [address] [id number] [address] [place] [address] Apr, Pain in right knee M25.561 [facility] [address] [id number] [address] [place] [address] Apr, Pain in right knee M25.561 [facility] [address] [id number] [address] [place] [address] Mar, Pain in right knee M25.561 [facility] [address] [id number] [address] [place] [address] Mar, [facility] [address] [id number] [address] [place] [address] Mar, Chronic pain syndrome G89.4 [facility] [address] [id number] [address] [place] [address] Feb, [facility] [address] [id number] [address] [place] [address] Feb, [facility] [address] [id number] [address] [place] [address] Dec, [facility] [address] [id number] [address] [place] [address] Dec, [facility] [address] [id number] [address] [place] [address] Nov, Chronic pain syndrome G89.4 [facility] [address] [id number] [address] [place] [address] Nov, [facility] [address] [id number] [address] [place] [address] Oct, [facility] [address] [id number] [address] [place] [address] Oct, [facility] [place] [address] [id number] [address] [place] [address] Oct, [facility] [place] [address] [facility] [id number] [address] [place] [address] Oct, Allergic reaction to drug, s ubsequent encounter T78.40XD [facility] [place] [address] [id number] [address] [place] [address] September, [facility] [place] [address] [facility] [id number] [address] [place] [address] September, [facility] [place] [address] [facility] [id number] [address] [place] [address] September, Low back pain radiating to l ower extremity M54.5 [facility] [place] [address] [facility] [id number] [address] [place] [address] Aug, [facility] [place] [address] [id number] [address] [place] [address] Aug, [facility] [place] [address] [facility] [id number] [address] [place] [address] Aug, [facility] [place] [address] [facility] [id number] [address] [place] [address] Aug, [facility] [place] [address] [facility] [id number] [address] [place] [address] Aug, Incisional infection, initia l encounter T81.4XXA [facility] [place] [address] [id number] [address] [place] [address] Aug, [facility] [place] [address] [facility] [id number] [address] [place] [address] Jul, [facility] [place] [address] [facility] [id number] [address] [place] [address] Jul, [facility] [place] [address] [facility] [id number] [address] [place] [address] Jul, Chronic pain syndrome G89.4 [facility] [place] [address] [id number] [address] [place] [address] Jul, Pre-op evaluation Z01.818 [facility] [place] [address] [id number] [address] [place] [address] Jul, [facility] [place] [address] [id number] [address] [place] [address] Jun, Anxiety disorder, unspecifie d F41.9 and Chronic pain syndrome G89.4 [facility] [place] [address] [id number] [address] [place] [address] Jun, [facility] [place] [address] [id number] [address] [place] [address] Jun, [facility] [place] [address] [id number] [address] [place] [address] Jun, [facility] [place] [address] [id number] [address] [place] [address] Jun, [facility] [place] [address] [facility] [id number] [address] [place] [address] Jun, Lumbar neuritis M54.16 [facility] [place] [address] [facility] [id number] [address] [place] [address] May, [facility] [place] [address] [id number] [address] [place] [address] May, [facility] [place] [address] [facility] [id number] [address] [place] [address] May, Encounter for therapeutic dr ug level monitoring Z51.81 ; Encounter for immunization Z23 and Chronic pain syndrome G89.4 [facility] [place] [address] [id number] [address] [place] [address] May, Lumbar neuritis M54.16 [facility] [place] [address] [id number] [address] [place] [address] May, [facility] [place] [address] [id number] [address] [place] [address] Apr, Lumbar neuritis M54.16 [facility] [place] [address] [id number] [address] [place] [address] Apr, [facility] [place] [address] [id number] [address] [place] [address] Mar, Lumbar neuritis M54.16 [facility] [place] [address] [id number] [address] [place] [address] Mar, [facility] [place] [address] [id number] [address] [place] [address] Mar, [facility] [place] [address] [id number] [address] [place] [address] Feb, Lumbar neuritis M54.16 [facility] [place] [address] [id number] [address] [place] [address] Feb, Lumbar neuritis M54.16 [facility] [place] [address] [id number] [address] [place] [address] Feb, [facility] [place] [address] [id number] [address] [place] [address] Feb, [facility] [place] [address] [id number] [address] [place] [address] 25 Jan, 2017 [facility] [place] [address] [id number] [address] [place] [address] 22 Jan, 2017 Peroneal tendonitis of left lower extremity M76.72 [facility] [place] [address] [id number] [address] [place] [address] 20 Jan, 2017 Lumbar neuritis M54.16 [facility] [place] [address] [id number] [address] [place] [address] 12 Jan, 2017 [facility] [place] [address] [id number] [address] [place] [address] Dec, Lumbar neuritis M54.16 [facility] [place] [address] [id number] [address] [place] [address] Dec, [facility] [place] [address] [id number] [address] [place] [address] Dec, Pain in right knee M25.561 ; Lumbar neuritis M54.16 and Cervical neuritis M54.12 [facility] [place] [address] [id number] [address] [place] [address] Dec, [facility] [place] [address] [id number] [address] [place] [address] Dec, [facility] [place] [address] [id number] [address] [place] [address] Nov, Lumbar neuritis M54.16 [facility] [place] [address] [id number] [address] [place] [address] Nov, Bilateral primary osteoarthr itis of knee M17.0 [facility] [place] [address] [id number] [address] [place] [address] Nov, [facility] [place] [address] [id number] [address] [place] [address] Nov, Bronchitis J40 and Plantar f asciitis M72.2 [facility] [place] [address] [id number] [address] [place] [address] Nov, [facility] [place] [address] [id number] [address] [place] [address] Oct, Lumbar neuritis M54.16 [facility] [place] [address] [id number] [address] [place] [address] Oct, Lumbar neuritis M54.16 [facility] [place] [address] [id number] [address] [place] [address] Oct, Lumbar neuritis M54.16 [facility] [place] [address] [id number] [address] [place] [address] Oct, Plantar fasciitis M72.2 and Pain in right knee M25.561 [facility] [place] [address] [id number] [address] [place] [address] 16 Oct, 2016 Lumbar neuritis M54.16 ; Cer vical neuritis M54.12 ; Other specified abdominal hernia without obstruction or gangrene K45.8 ; Heel spur, left M77.32 ; Plantar fasciitis M72.2 and Pain in right knee M25.561 [facility] [place] [address] [id number] [address] [place] [address] 13 Oct, 2016 [facility] [address] [id number] [address] [place] [address] 14 Aug, 2014 [facility] [address] [id number] [address] [place] [address] Aug, [facility] [place] [address] [id number] [address] [place] [address] Apr, [facility] [address] [id number] [address] [place] [address] Apr, [facility] [address] [id number] [address] [place] [address] Mar, [facility] [address] [id number] [address] [place] [address] Mar, [facility] [address] [id number] [address] [place] [address] Feb, [facility] [address] [id number] [address] [place] [address] Feb, [facility] [address] [id number] [address] [place] [address] Feb, [facility] [address] [id number] [address] [place] [address] Feb, [facility] [address] [id number] [address] [place] [address] Feb, [facility] [address] [id number] [address] [place] [address], [place] [address] 07 Feb, 2013 [facility] [address] [id number] [address] [place] [address], [place] [address] 07 Feb, 2013 [facility] [address] [id number] [address] [place] [address], [place] [address] 07 Oct, 2013 [facility] [address] [id number] [address] [place] [address], [place] [address] 30 Sep, 2013 [facility] [address] [id number] [address] [place] [address], [place] [address] 30 Sep, 2013 [facility] [address] [id number] [address] [place] [address], [place] [address] 30 Sep, 2013 [facility] [address] [id number] [address] [place] [address], [place] [address] 30 Sep, 2013 [facility] [address] [id number] [address] [place] [address], [place] [address] 30 Sep, 2013 [facility] [address] [id number] [address] [place] [address], [place] [address] 30 Sep, 2013 [facility] [address] [id number] [address] [place] [address], [place] [address] 26 Sep, 2013 [facility] [address] [id number] [address] [place] [address], [place] [address] 26 Sep, 2013 [facility] [address] [id number] [address] [place] [address], [place] [address] 22 Sep, 2013 [facility] [address] [id number] [address] [place] [address], [place] [address] 22 Sep, 2013 [facility] [address] [id number] [address] [place] [address], [place] [address] 16 Sep, 2013 [facility] [address] [id number] [address] [place] [address], [place] [address] 16 Sep, 2013 [facility] [address] [id number] [address] [place] [address], [place] [address] 16 Sep, 2013 [facility] [address] [id number] [facility] [place] [address] 16 Jan, 2013 [facility] [address] [id number] [address] [place] [address], [place] [address] 12 Jan, 2013 [facility] [address] [id number] [address] [place] [address], [place] [address] 12 Jan, 2013 [facility] [address] [id number] [address] [place] [address], [place] [address] 12 Jan, 2013 [facility] [address] [id number] [address] [place] [address], [place] [address] 12 Jan, 2013 [facility] [address] [id number] [address] [place] [address], [place] [address] 09 Jan, 2013 [facility] [address] [id number] [address] [place] [address], [place] [address] 09 Jan, 2013 [facility] [address] [id number] [address] [place] [address], [place] [address] 09 Jan, 2013 [facility] [address] [id number] [address] [place] [address], [place] [address] 09 Jan, 2013 [facility] [address] [id number] [address] [place] [address], [place] [address] 05 Jan, 2013 [facility] [address] [id number] [address] [place] [address], [place] [address] Jan, 2013 [facility] [address] [id number] [address] [place] [address], [place] [address] Dec, [facility] [address] [id number] [address] [place] [address], [place] [address] Dec, [facility] [address] [id number] [address] [place] [address], [place] [address] Dec, [facility] [address] [id number] [address] [place] [address], [place] [address] Dec, [facility] [address] [id number] [address] [place] [address], [place] [address] Dec, [facility] [address] [id number] [facility] [place] [address] Dec, [facility] [address] [id number] [facility] [place] [address] Dec, [facility] [address] [id number] [facility] [place] [address] Dec, [facility] [address] [id number] [facility] [place] [address] Dec, [facility] [address] [id number] [address] [place] [address], [place] [address] Dec, [facility] [address] [id number] [address] [place] [address], [place] [address] Dec, [facility] [address] [id number] [address] [place] [address], [place] [address] Dec, [facility] [address] [id number] [address] [place] [address], [place] [address] Dec, [facility] [address] [id number] [address] [place] [address], [place] [address] Dec, [facility] [address] [id number] [address] [place] [address], [place] [address] Dec, [facility] [address] [id number] [address] [place] [address], [place] [address] Dec, [facility] [address] [id number] [address] [place] [address], [place] [address] Dec, [facility] [address] [id number] [address] [place] [address], [place] [address] Dec, [facility] [address] [id number] [address] [place] [address], [place] [address] Dec, [facility] [address] [id number] [address] [place] [address], [place] [address] Nov, [facility] [address] [id number] [address] [place] [address] Nov, [facility] [place] [address] [id number] [address] [place] [id number] Nov, [facility], [place] [address] [id number] [address] [place] [id number] Nov, [facility], [place] [address] [id number] [address] [place] [id number] Nov, [facility], [place] [address] [id number] [address] [place] [id number] Nov, [facility], [place] [address] [id number] [address] [place] [phone] Nov, [facility], [place] [address] [id number] [address] [place] [id number] Nov, [facility], [place] [address] [id number] [address] [place] [id number] Nov, [facility], [place] [address] [id number] [address] [place] [id number] Nov, [facility], [place] [address] [id number] [address] [place] [id number] Nov, [facility], [place] [address] [id number] [address] [place] [id number] Oct, [facility], [place] [address] [id number] [address] [place] [id number] Oct, [facility], [place] [address] [id number] [address] [place] [id number] Oct, [facility], [place] [address] [id number] [address] [place] [id number] Apr, IMMUNIZATIONS No Known Immunizations SOCIAL HISTORY [...]
--- OUTSIDE RECORDS SUMMARY | 2019-11-23 06:16 | XMS REPORT ---
Author Author Pal Lopez Organization [facility] Address [address] [place] [address] Care Team Providers Care Clinical Neuropsychologist Name Role Phone JNAE Lopez Unavailable PROBLEMS Type Condition ICD9-CM Code RMR45-SQ Code Onset Dates Condition S tatus SNOMED Code Problem Bilateral primary osteoarthritis of knee M17.0 Active 611431421 Problem Chronic pain syndrome G89.4 Active 827261111 Problem Lung nodule < 6cm on CT R91.1 Active 821826730 Problem Panlobular emphysema J43.1 Active 8346332 Problem Anxiety disorder, unspecified F41.9 Active 492949966 Problem Other chronic pain G89.29 Active 8 6407074 Problem Lumbago with sciatica, left side M54.42 Active 297139649 Problem Lumbago with sciatica, right side M54.41 Active [id number] ALLERGIES No Information ENCOUNTERS Encounter Location Date Diagnosis [place] [address] [facility] [id number] [address] [place] [phone] Oct, [place] [address] [facility] [id number] [address] [place] [id number] 15 Aug, 2019 Chronic pain syndrome G89.4 [place] [address] [facility] [id number] [address] [place] [address] Aug, Lung nodule < 6cm on CT R91. 1 and Panlobular emphysema J43.1 [place] [address] [facility] [id number] [address] [place] [address] 16 Jul, 2019 Chronic pain syndrome G89.4 [place] [address] [facility] [id number] [address] [place] [address] 05 Jul, 2019 Bilateral primary osteoarthr itis of knee M17.0 ; Lumbago with sciatica, left side M54.42 and Encounter for immunization Z23 [facility] [address] [id number] [address] [place] [address] Jun, Chronic pain syndrome G89.4 [facility] [address] [facility] [id number] [address] [place] [address] May, Lung nodule < 6cm on CT R91. 1 ; SOB (shortness of breath) R06.02 ; Coughing R05 and Panlobular emphysema J43.1 [facility] [address] [id number] [address] [place] [address] May, [facility] [address] [id number] [address] [place] [address] May, Chronic pain syndrome G89.4 [facility] [address] [facility] [id number] [address] [place] [address] May, [facility] [address] [facility] [id number] [address] [place] [phone] Apr, Chronic pain syndrome G89.4 [facility] [address] [facility] [id number] [address] [place] [address] Apr, Encounter for immunization Z 23 ; Lumbago with sciatica, left side M54.42 and Tinea corporis B35.4 [facility] [address] [facility] [id number] [address] [place] [address] Mar, [facility] [address] [facility] [id number] [address] [place] [address] Mar, [facility] [address] [facility] [id number] [address] [place] [address] Mar, Chronic pain syndrome G89.4 [facility] [address] [facility] [id number] [address] [place] [address] Mar, [facility] [address] [facility] [id number] [address] [place] [address] Mar, [place] [address] [id number] [address] [place] [phone] Mar, [facility] [address] [facility] [id number] [address] [place] [address] Feb, Chronic pain syndrome G89.4 [facility] [address] [facility] [id number] [address] [place] [phone] Feb, [facility] [address] [facility] [id number] [address] [place] [address] Jan, Chronic pain syndrome G89.4 [facility] [address] [id number] [address] [place] [address] Dec, Chronic pain syndrome G89.4 [facility] [address] [facility] [id number] [address] [place] [address] Dec, Chronic pain syndrome G89.4 and Anxiety disorder, unspecified F41.9 [facility] [address] [facility] [id number] [address] [place] [address] Nov, [facility] [address] [facility] [id number] [address] [place] [address] Oct, [facility] [address] [facility] [id number] [address] [place] [address] Oct, [facility] [address] [facility] [id number] [address] [place] [address] Oct, Acute bronchitis, unspecifie d organism J20.9 and Nasal congestion R09.81 [facility] [address] [facility] [id number] [address] [place] [address] September, [facility] [address] [facility] [id number] [address] [place] [address] Aug, Lumbago with sciatica, left side M54.42 ; Lumbago with sciatica, right side M54.41 and Other chronic pain G89.29 [facility] [address] [facility] [id number] [address] [place] [address] Aug, [facility] [address] [id number] [address] [place] [address] Jul, [facility] [address] [id number] [address] [place] [address] Jun, [facility] [address] [id number] [address] [place] [address] May, [facility] [address] [id number] [address] [place] [address] Apr, Pain in right knee M25.561 [facility] [address] [id number] [address] [place] [address] Apr, Pain in right knee M25.561 [facility] [address] [id number] [address] [place] [address] Mar, Pain in right knee M25.561 [facility] [address] [id number] [address] [place] [address] Mar, [facility] [address] [id number] [address] [place] [address] Mar, Chronic pain syndrome G89.4 [facility] [address] [id number] [address] [place] [address] Feb, [facility] [address] [id number] [address] [place] [address] Feb, [facility] [address] [id number] [address] [place] [address] Dec, [facility] [address] [id number] [address] [place] [address] Dec, [facility] [address] [id number] [address] [place] [address] Nov, Chronic pain syndrome G89.4 [facility] [address] [id number] [address] [place] [address] Nov, [facility] [address] [id number] [address] [place] [address] Oct, [facility] [address] [id number] [address] [place] [address] Oct, [facility] [address] [id number] [address] [place] [address] Oct, [facility] [address] [id number] [address] [place] [address] Oct, Allergic reaction to drug, s ubsequent encounter T78.40XD [facility] [address] [id number] [address] [place] [address] September, [facility] [address] [id number] [address] [place] [address] September, [facility] [address] [facility] [id number] [address] [place] [address] September, Low back pain radiating to l ower extremity M54.5 [facility] [address] [id number] [address] [place] [address] Aug, [facility] [address] [id number] [address] [place] [address] Aug, [facility] [address] [facility] [id number] [address] [place] [address] Aug, [facility] [address] [id number] [address] [place] [address] Aug, [facility] [address] [id number] [address] [place] [address] Aug, Incisional infection, initia l encounter T81.4XXA [facility] [address] [id number] [address] [place] [address] Aug, [facility] [address] [facility] [id number] [address] [place] [address] Jul, [facility] [address] [id number] [address] [place] [address] Jul, [facility] [address] [facility] [id number] [address] [place] [address] Jul, Chronic pain syndrome G89.4 [facility] [address] [facility] [id number] [address] [place] [address] Jul, Pre-op evaluation Z01.818 [facility] [address] [facility] [id number] [address] [place] [address] Jul, [facility] [address] [facility] [id number] [address] [place] [address] Jun, Anxiety disorder, unspecifie d F41.9 and Chronic pain syndrome G89.4 [facility] [address] [place] [id number] [address] [place] [address] Jun, [facility] [address] [place] [id number] [address] [place] [phone] Jun, [facility] [address] [facility] [id number] [address] [place] [address] Jun, [facility] [address] [place] [id number] [address] [place] [address] Jun, [facility] [address] [place] [id number] [address] [place] [address] Jun, Lumbar neuritis M54.16 [facility] [address] [facility] [id number] [address] [place] [address] May, [facility] [address] [facility] [id number] [address] [place] [address] May, [facility] [address] [place] [id number] [address] [place] [address] May, Encounter for therapeutic dr heather level monitoring Z51.81 ; Encounter for immunization Z23 and Chronic pain syndrome G89.4 [facility] [address] [place] [id number] [address] [place] [address] May, Lumbar neuritis M54.16 [facility] [address] [id number] [address] [place] [address] May, [facility] [address] [id number] [address] [place] [address] Apr, Lumbar neuritis M54.16 [facility] [address] [id number] [address] [place] [address] Apr, [facility] [address] [id number] [address] [place] [address] Mar, Lumbar neuritis M54.16 [facility] [address] [id number] [address] [place] [address] Mar, [facility] [address] [id number] [address] [place] [address] Mar, [facility] [address] [id number] [address] [place] [address] Feb, Lumbar neuritis M54.16 [facility] [address] [id number] [address] [place] [phone] 18 Feb, 2017 Lumbar neuritis M54.16 [facility] [address] [id number] [address] [place] [address] 16 Feb, 2017 [facility] [address] [id number] [address] [place] [address] Feb, [facility] [address] [id number] [address] [place] [address] 25 Jan, 2017 [facility] [address] [id number] [address] [place] [id number] 22 Sep, 2016 Peroneal tendonitis of left lower extremity M76.72 [facility] [address] [id number] [address] [place] [phone] 20 Jan, 2016 Lumbar neuritis M54.16 [facility] [address] [id number] [address] [place] [address] Jan, [facility] [address] [id number] [address] [place] [address] Dec, Lumbar neuritis M54.16 [facility] [address] [id number] [address] [place] [address] Dec, [facility] [address] [id number] [address] [place] [address] Dec, Pain in right knee M25.561 ; Lumbar neuritis M54.16 and Cervical neuritis M54.12 [facility] [address] [id number] [address] [place] [address] Dec, [facility] [address] [id number] [address] [place] [address] Dec, [facility] [address] [id number] [address] [place] [phone] Nov, Lumbar neuritis M54.16 [facility] [address] [id number] [address] [place] [address] Nov, Bilateral primary osteoarthr itis of knee M17.0 [facility] [address] [id number] [address] [place] [address] Nov, [facility] [address] [id number] [address] [place] [phone] Nov, Bronchitis J40 and Plantar f asciitis M72.2 [facility] [address] [id number] [address] [place] [address] Nov, [facility] [address] [id number] [address] [place] [address] Oct, Lumbar neuritis M54.16 [facility] [address] [id number] [address] [place] [address] Oct, Lumbar neuritis M54.16 [facility] [address] [id number] [address] [place] [address] Oct, Lumbar neuritis M54.16 [facility] [address] [id number] [address] [place] [address] 26 Oct, 2016 Plantar fasciitis M72.2 and Pain in right knee M25.561 [facility] [address] [id number] [address] [place] [address] 16 Oct, 2016 Lumbar neuritis M54.16 ; Cer vical neuritis M54.12 ; Other specified abdominal hernia without obstruction or gangrene K45.8 ; Heel spur, left M77.32 ; Plantar fasciitis M72.2 and Pain in right knee M25.561 [facility] [address] [id number] [address] [place] [id number] 13 Oct, 2016 [facility] [address] [id number] [address] [place] [id number] 14 Aug, 2014 [facility] [address] [id number] [address] [place] [address] Aug, [facility] [address] [id number] [address] [place] [address] Apr, [facility] [address] [id number] [address] [place] [address] Apr, [facility] [address] [id number] [address] [place] [address] Mar, [facility] [address] [id number] [address] [place] [phone] Mar, [facility] [address] [id number] [address] [place] [address] Feb, [facility] [address] [id number] [address] [place] [address] Feb, [facility] [address] [id number] [address] [place] [phone] Feb, [facility] [address] [id number] [address] [place] [address] Feb, [facility] [address] [id number] [address] [place] [address], [place] [id number] 07 Feb, 2013 [facility] [address] [id number] [address] [place] [address], [place] [id number] 07 Feb, 2013 [facility] [address] [id number] [address] [place] [address], [place] [id number] 07 Feb, 2013 [facility] [address] [id number] [address] [place] [address], [place] [id number] 07 Feb, 2013 [facility] [address] [id number] [address] [place] [address], [place] [id number] 30 Sep, 2013 [facility] [address] [id number] [address] [place] [address], [place] [id number] 30 Sep, 2013 [facility] [address] [id number] [address] [place] [address], [place] [id number] 30 Sep, 2013 [facility] [address] [id number] [address] [place] [address], [place] [id number] 30 Sep, 2013 [facility] [address] [id number] [address] [place] [address], [place] [id number] 30 Sep, 2013 [facility] [address] [id number] [address] [place] [address], [place] [id number] 30 Sep, 2013 [facility] [address] [id number] [address] [place] [address], [place] [id number] 26 Sep, 2013 [facility] [address] [id number] [address] [place] [address], [place] [id number] 26 Sep, 2013 [facility] [address] [id number] [address] [place] [address], [place] [id number] 22 Sep, 2013 [facility] [address] [id number] [address] [place] [address], [place] [id number] 22 Sep, 2013 [facility] [address] [id number] [address] [place] [address], [place] [id number] 16 Sep, 2013 [facility] [address] [id number] [address] [place] [address], [place] [id number] 16 Sep, 2013 [facility] [address] [id number] [facility] [place] [id number] 16 Sep, 2013 [facility] [address] [id number] [address] [place] [address], [place] [address] 16 Jan, 2013 [facility] [address] [id number] [address] [place] [address], [place] [id number] 12 Jan, 2013 [facility] [address] [id number] [address] [place] [address], [place] [id number] 12 Jan, 2013 [facility] [address] [id number] [address] [place] [address], [place] [id number] 12 Jan, 2013 [facility] [address] [id number] [address] [place] [address], [place] [id number] 12 Jan, 2013 [facility] [address] [id number] [address] [place] [address], [place] [id number] 09 Jan, 2013 [facility] [address] [id number] [address] [place] [address], [place] [id number] 09 Jan, 2013 [facility] [address] [id number] [address] [place] [address], [place] [id number] 09 Jan, 2013 [facility] [address] [id number] [address] [place] [address], [place] [id number] 09 Jan, 2013 [facility] [address] [id number] [address] [place] [address], [place] [id number] 05 Jan, 2013 [facility] [address] [id number] [address] [place] [address], [place] [id number] Jan, 2013 [facility] [address] [id number] [address] [place] [address], [place] [id number] Dec, [facility] [address] [id number] [address] [place] [address], [place] [id number] Dec, [facility] [address] [id number] [address] [place] [address], [place] [address] Dec, [facility] [address] [id number] [facility] [place] [address] Dec, [facility] [address] [id number] [facility] [place] [address] Dec, [facility] [address] [id number] [facility] [place] [address] Dec, [facility] [address] [id number] [facility] [place] [address] Dec, [facility] [address] [id number] [facility] [place] [address] Dec, [facility] [address] [id number] [facility] [place] [address] Dec, [facility] [address] [id number] [facility] [place] [address] Dec, [facility] [address] [id number] [address] [place] [address], [place] [id number] Dec, [facility] [address] [id number] [address] [place] [address], [place] [id number] Dec, [facility] [address] [id number] [address] [place] [address], [place] [address] Dec, [facility] [address] [id number] [address] [place] [address], [place] [id number] Dec, [facility] [address] [id number] [address] [place] [address], [place] [id number] Dec, [facility] [address] [id number] [address] [place] [address], [place] [id number] Dec, [facility] [address] [id number] [address] [place] [address], [place] [id number] Dec, [facility] [address] [id number] [address] [place] [address], [place] [id number] Dec, [facility] [address] [id number] [address] [place] [address], [place] [address] Dec, [facility] [address] [id number] [address] [place] [address], [place] [address] Nov, [facility] [address] [id number] [address] [place] [address], [place] [id number] Nov, [facility] [address] [id number] [address] [place] [address], [place] [address] Nov, [facility] [address] [id number] [address] [place] [address], [place] [id number] Nov, [facility] [address] [id number] [address] [place] [address], [place] [address] Nov, [facility] [address] [id number] [address] [place] [address], [place] [id number] Nov, [facility] [address] [id number] [address] [place] [address], [place] [address] Nov, [facility] [address] [id number] [address] [place] [id number] Nov, [facility] [address] [id number] [address] [place] [address], [place] [id number] Nov, [facility] [address] [id number] [address] [place] [id number] Nov, [facility] [address] [id number] [address] [place] [id number] Nov, [facility] [address] [id number] [address] [place] [id number] Oct, [facility] [address] [id number] [address] [place] [id number] Oct, [facility] [address] [id number] [address] [place] [id number] Oct, [facility] [address] [id number] [address] [place] [id number] Apr, IMMUNIZATIONS No Known Immunizations SOCIAL HISTORY Never Assessed REASON FOR VISIT PLAN OF CARE VITAL SIGNS Height 70 in 2014-01-24 Weight 173.8 lbs 2014-01-24 Temperature 97.9 degrees Fahrenheit 2014-01-24 Heart Rate 88 bpm 2014-01-24 Respiratory Rate 20 2014-01-24 Blood pressure systolic 160 mmHg 2014-01-24 Blood pressure diastolic 94 mmHg 2014-01-24 MEDICATIONS Unknown Medications RESULTS No Results PROCEDURES Procedure Date Ordered Result Body Site SMOK TOB CESS CNSL; INTNSV > NEW PT 10 MIN Jan 24, 2014 RESPIRATORY FLOW VOLUME LOOP Jan 24, 2014 NEB/MDI DEMO Jan 24, 2014 SPIROMETRY Jan 24, 2014 INSTRUCTIONS MEDICATIONS ADMINISTERED No Known Medications MEDICAL [...]
--- OUTSIDE RECORDS SUMMARY | 2019-11-23 06:17 | XMS REPORT ---
Author Author Pal Lopez Organization [facility] Address [address] [place] [address] Care Team Providers Care Automation Specialist Name Role Phone JANE Lopez Unavailable PROBLEMS Type Condition ICD9-CM Code [id number] Code Onset Dates Condition S tatus SNOMED Code Problem Bilateral primary osteoarthritis of knee M17.0 Active 696781766 Problem Chronic pain syndrome G89.4 Active 207589661 Problem Lung nodule < 6cm on CT R91.1 Active 989976376 Problem Panlobular emphysema J43.1 Active 3071625 Problem Anxiety disorder, unspecified F41.9 Active 163291057 Problem Other chronic pain G89.29 Active 8 7384955 Problem Lumbago with sciatica, left side M54.42 Active 348703904 Problem Lumbago with sciatica, right side M54.41 Active [id number] ALLERGIES No Information ENCOUNTERS Encounter Location Date Diagnosis [place] [address] [facility] [id number] [address] [place] [id number] Oct, [place] [address] [facility] [id number] [address] [place] [phone] Aug, Lung nodule < 6cm on CT R91. 1 and Panlobular emphysema J43.1 [place] [id number] [facility] [id number] [address] [place] [phone] Jul, Chronic pain syndrome G89.4 [place] [address] [facility] [id number] [address] [place] [id number] Jul, Bilateral primary osteoarthr itis of knee M17.0 ; Lumbago with sciatica, left side M54.42 and Encounter for immunization Z23 [facility] [address] [facility] [id number] [address] [place] [id number] Jun, Chronic pain syndrome G89.4 [facility] [address] [facility] [id number] [address] [place] [id number] May, Lung nodule < 6cm on CT R91. 1 ; SOB (shortness of breath) R06.02 ; Coughing R05 and Panlobular emphysema J43.1 [facility] [address] [facility] [id number] [address] [place] [id number] May, [facility] [address] [facility] [id number] [address] [place] [id number] May, Chronic pain syndrome G89.4 [facility] [address] [facility] [id number] [address] [place] [phone] May, [facility] [address] [place] [id number] [address] [place] [id number] Apr, Chronic pain syndrome G89.4 [facility] [address] [place] [id number] [address] [place] [id number] Apr, Encounter for immunization Z 23 ; Lumbago with sciatica, left side M54.42 and Tinea corporis B35.4 [facility] [address] [facility] [id number] [address] [place] [address] Mar, [facility] [address] [place] [id number] [address] [place] [phone] Mar, [facility] [address] [place] [id number] [address] [place] [id number] Mar, Chronic pain syndrome G89.4 [facility] [address] [facility] [id number] [address] [place] [id number] Mar, [facility] [address] [place] [id number] [address] [place] [id number] Mar, [facility] [address] [place] [id number] [address] [place] [id number] Mar, [facility] [address] [place] [id number] [address] [place] [phone] Feb, Chronic pain syndrome G89.4 [facility] [address] [facility] [id number] [address] [place] [phone] Feb, [facility] [address] [id number] [address] [place] [phone] Jan, Chronic pain syndrome G89.4 [facility] [address] [facility] [id number] [address] [place] [phone] Dec, Chronic pain syndrome G89.4 [facility] [address] [facility] [id number] [address] [place] [id number] Dec, Chronic pain syndrome G89.4 and Anxiety disorder, unspecified F41.9 [facility] [address] [facility] [id number] [address] [place] [phone] Nov, [facility] [address] [facility] [id number] [address] [place] [phone] Oct, [facility] [address] [facility] [id number] [address] [place] [id number] Oct, [facility] [address] [facility] [id number] [address] [place] [id number] Oct, Acute bronchitis, unspecifie d organism J20.9 and Nasal congestion R09.81 [facility] [address] [facility] [id number] [address] [place] [id number] September, [facility] [address] [facility] [id number] [address] [place] [id number] Aug, Lumbago with sciatica, left side M54.42 ; Lumbago with sciatica, right side M54.41 and Other chronic pain G89.29 [facility] [address] [facility] [id number] [address] [place] [phone] Aug, [facility] [address] [facility] [id number] [address] [place] [phone] Jul, [facility] [address] [id number] [address] [place] [phone] Jun, [facility] [address] [id number] [address] [place] [address] May, [facility] [address] [id number] [address] [place] [address] Apr, Pain in right knee M25.561 [facility] [address] [id number] [address] [place] [address] Apr, Pain in right knee M25.561 [facility] [address] [id number] [address] [place] [address] Mar, Pain in right knee M25.561 [facility] [address] [id number] [address] [place] [id number] Mar, [facility] [address] [id number] [address] [place] [address] Mar, Chronic pain syndrome G89.4 [facility] [address] [id number] [address] [place] [phone] Feb, [facility] [address] [id number] [address] [place] [id number] Feb, [facility] [address] [id number] [address] [place] [phone] Dec, [facility] [address] [id number] [address] [place] [id number] Dec, [facility] [address] [id number] [address] [place] [phone] Nov, Chronic pain syndrome G89.4 [facility] [address] [id number] [address] [place] [id number] Nov, [facility] [address] [id number] [address] [place] [id number] Oct, [facility] [address] [id number] [address] [place] [phone] Oct, [facility] [address] [id number] [address] [place] [phone] Oct, [facility] [address] [facility] [id number] [address] [place] [id number] Oct, Allergic reaction to drug, s ubsequent encounter T78.40XD [facility] [address] [id number] [address] [place] [phone] September, [facility] [address] [facility] [id number] [address] [place] [phone] September, [facility] [address] [facility] [id number] [address] [place] [id number] September, Low back pain radiating to l ower extremity M54.5 [facility] [address] [facility] [id number] [address] [place] [phone] Aug, [facility] [address] [id number] [address] [place] [phone] Aug, [facility] [address] [facility] [id number] [address] [place] [id number] Aug, [facility] [address] [facility] [id number] [address] [place] [id number] Aug, [facility] [address] [facility] [id number] [address] [place] [phone] Aug, Incisional infection, initia l encounter T81.4XXA [facility] [address] [id number] [address] [place] [id number] Aug, [facility] [address] [facility] [id number] [address] [place] [id number] Jul, [facility] [address] [facility] [id number] [address] [place] [id number] Jul, [facility] [address] [facility] [id number] [address] [place] [id number] Jul, Chronic pain syndrome G89.4 [facility] [address] [id number] [address] [place] [id number] Jul, Pre-op evaluation Z01.818 [facility] [address] [id number] [address] [place] [id number] Jul, [facility] [address] [id number] [address] [place] [id number] Jun, Anxiety disorder, unspecifie d F41.9 and Chronic pain syndrome G89.4 [facility] [address] [id number] [address] [place] [id number] Jun, [facility] [address] [id number] [address] [place] [id number] Jun, [facility] [address] [id number] [address] [place] [phone] Jun, [facility] [address] [id number] [address] [place] [id number] Jun, [facility] [address] [facility] [id number] [address] [place] [id number] Jun, Lumbar neuritis M54.16 [facility] [address] [facility] [id number] [address] [place] [phone] May, [facility] [address] [id number] [address] [place] [id number] May, [facility] [address] [facility] [id number] [address] [place] [id number] May, Encounter for therapeutic dr ug level monitoring Z51.81 ; Encounter for immunization Z23 and Chronic pain syndrome G89.4 [facility] [address] [id number] [address] [place] [id number] May, Lumbar neuritis M54.16 [facility] [address] [id number] [address] [place] [phone] May, [facility] [address] [id number] [address] [place] [id number] Apr, Lumbar neuritis M54.16 [facility] [address] [id number] [address] [place] [id number] Apr, [facility] [address] [id number] [address] [place] [id number] Mar, Lumbar neuritis M54.16 [facility] [address] [id number] [address] [place] [id number] Mar, [facility] [address] [id number] [address] [place] [id number] Mar, [facility] [address] [id number] [address] [place] [id number] Feb, Lumbar neuritis M54.16 [facility] [address] [id number] [address] [place] [id number] Feb, Lumbar neuritis M54.16 [facility] [address] [id number] [address] [place] [id number] Feb, [facility] [address] [id number] [address] [place] [phone] Feb, [facility] [address] [id number] [address] [place] [id number] 25 Jan, 2017 [facility] [address] [id number] [address] [place] [id number] 22 Jan, 2017 Peroneal tendonitis of left lower extremity M76.72 [facility] [address] [id number] [address] [place] [id number] 20 Jan, 2017 Lumbar neuritis M54.16 [facility] [address] [id number] [address] [place] [id number] 12 Jan, 2017 [facility] [address] [id number] [address] [place] [id number] Dec, Lumbar neuritis M54.16 [facility] [address] [id number] [address] [place] [id number] Dec, [facility] [address] [id number] [address] [place] [phone] Dec, Pain in right knee M25.561 ; Lumbar neuritis M54.16 and Cervical neuritis M54.12 [facility] [address] [id number] [address] [place] [id number] Dec, [facility] [address] [id number] [address] [place] [phone] Dec, [facility] [address] [id number] [address] [place] [id number] Nov, Lumbar neuritis M54.16 [facility] [address] [id number] [address] [place] [id number] Nov, Bilateral primary osteoarthr itis of knee M17.0 [facility] [address] [id number] [address] [place] [phone] Nov, [facility] [address] [id number] [address] [place] [phone] Nov, Bronchitis J40 and Plantar f asciitis M72.2 [facility] [address] [id number] [address] [place] [phone] Nov, [facility] [address] [id number] [address] [place] [phone] Oct, Lumbar neuritis M54.16 [facility] [address] [id number] [address] [place] [id number] Oct, Lumbar neuritis M54.16 [facility] [address] [id number] [address] [place] [id number] Oct, Lumbar neuritis M54.16 [facility] [address] [id number] [address] [place] [id number] Oct, Plantar fasciitis M72.2 and Pain in right knee M25.561 [facility] [address] [id number] [address] [place] [id number] 16 Oct, 2016 Lumbar neuritis M54.16 ; Cer vical neuritis M54.12 ; Other specified abdominal hernia without obstruction or gangrene K45.8 ; Heel spur, left M77.32 ; Plantar fasciitis M72.2 and Pain in right knee M25.561 [facility] [address] [id number] [address] [place] [id number] 13 Oct, 2016 [facility] [address] [id number] [address] [place] [id number] 14 Aug, 2014 [facility] [address] [id number] [address] [place] [phone] Aug, [facility] [address] [id number] [address] [place] [id number] Apr, [facility] [address] [id number] [address] [place] [phone] Apr, [facility] [address] [id number] [address] [place] [phone] Mar, [facility] [address] [id number] [address] [place] [id number] Mar, [facility] [address] [id number] [address] [place] [phone] Feb, [facility] [address] [id number] [address] [place] [id number] Feb, [facility] [address] [id number] [address] [place] [phone] Feb, [facility] [address] [id number] [address] [place] [id number] Feb, [facility] [address] [id number] [address] [place] [phone] Feb, [facility] [address] [id number] [address] [place] [address], [place] [id number] 07 Feb, 2013 [facility] [address] [id number] [address] [place] [address], [place] [id number] 07 Feb, 2013 [facility] [address] [id number] [address] [place] [address], [place] [id number] 07 Oct, 2013 [facility] [address] [id number] [address] [place] [address], [place] [id number] 30 Sep, 2013 [facility] [address] [id number] [address] [place] [address], [place] [id number] 30 Sep, 2013 [facility] [address] [id number] [address] [place] [address], [place] [id number] 30 Sep, 2013 [facility] [address] [id number] [address] [place] [address], [place] [id number] 30 Sep, 2013 [facility] [address] [id number] [address] [place] [address], [place] [id number] 30 Sep, 2013 [facility] [address] [id number] [address] [place] [address], [place] [address] 30 Sep, 2013 [facility] [address] [id number] [address] [place] [address], [place] [id number] 26 Sep, 2013 [facility] [address] [id number] [address] [place] [address], [place] [id number] 26 Sep, 2013 [facility] [address] [id number] [address] [place] [address], [place] [id number] 22 Sep, 2013 [facility] [address] [id number] [address] [place] [address], [place] [id number] 22 Sep, 2013 [facility] [address] [id number] [address] [place] [address], [place] [id number] 16 Sep, 2013 [facility] [address] [id number] [address] [place] [address], [place] [id number] 16 Sep, 2013 [facility] [address] [id number] [address] [place] [address], [place] [id number] 16 Sep, 2013 [facility] [address] [id number] [facility] [id number] 16 Jan, 2013 [facility] [address] [id number] [address] [place] [address], [place] [id number] 12 Jan, 2013 [facility] [address] [id number] [address] [place] [address], [place] [id number] 12 Jan, 2013 [facility] [address] [id number] [address] [place] [address], [place] [id number] 12 Jan, 2013 [facility] [address] [id number] [address] [place] [address], [place] [id number] 12 Jan, 2013 [facility] [address] [id number] [address] [place] [address], [place] [id number] 09 Jan, 2013 [facility] [address] [id number] [address] [place] [address], [place] [id number] 09 Jan, 2013 [facility] [address] [id number] [address] [place] [address], [place] [id number] 09 Jan, 2013 [facility] [address] [id number] [address] [place] [address], [place] [address] 09 Jan, 2013 [facility] [address] [id number] [address] [place] [address], [place] [id number] 05 Jan, 2013 [facility] [address] [id number] [address] [place] [address], [place] [address] Jan, 2013 [facility] [address] [id number] [address] [place] [address], [place] [id number] Dec, [facility] [address] [id number] [address] [place] [address], [place] [address] Dec, [facility] [address] [id number] [address] [place] [address], [place] [address] Dec, [facility] [address] [id number] [address] [place] [address], [place] [address] Dec, [facility] [address] [id number] [address] [place] [address], [place] [id number] Dec, [facility] [address] [id number] [address] [address] Dec, [facility] [address] [id number] [address] [address] Dec, [facility] [address] [id number] [address] [address] Dec, [facility] [address] [id number] [address] [address] Dec, [facility] [address] [id number] [address] [place] [address], [place] [address] Dec, [facility] [address] [id number] [address] [place] [address], [place] [address] Dec, [facility] [address] [id number] [address] [place] [address], [place] [address] Dec, [facility] [address] [id number] [address] [place] [address], [place] [address] Dec, [facility] [address] [id number] [address] [place] [address], [place] [address] Dec, [facility] [address] [id number] [address] [place] [address], [place] [address] Dec, [facility] [address] [id number] [address] [place] [address], [place] [address] Dec, [facility] [address] [id number] [address] [place] [address], [place] [address] Dec, [facility] [address] [id number] [address] [place] [address], [place] [address] Dec, [facility] [address] [id number] [address] [place] [address], [place] [address] Dec, [facility] [address] [id number] [address] [place] [address], [place] [address] Nov, [facility] [address] [id number] [address] [place] [id number] Nov, [facility] [address] [id number] [address] [place] [id number] Nov, [facility] [address] [id number] [address] [place] [id number] Nov, [facility] [address] [id number] [address] [place] [id number] Nov, [facility] [address] [id number] [address] [place] [id number] Nov, [facility] [address] [id number] [address] [place] [id number] Nov, [facility] [address] [id number] [address] [place] [id number] Nov, [facility] [address] [id number] [address] [place] [id number] Nov, [facility] [address] [id number] [address] [place] [id number] Nov, [facility] [address] [id number] [address] [place] [id number] Nov, [facility] [address] [id number] [address] [place] [id number] Oct, [facility] [address] [id number] [address] [place] [id number] Oct, [facility] [address] [id number] [address] [place] [id number] Oct, [facility] [address] [id number] [address] [place] [id number] Apr, IMMUNIZATIONS No Known Immunizations SOCIAL HISTORY [...]
--- OUTSIDE RECORDS SUMMARY | 2019-11-23 06:17 | XMS REPORT ---
Author Author Pal Lopez Organization [facility] Address [address] [place] [address] Care Team Providers Care Linemarker Name Role Phone JANE Lopez Unavailable PROBLEMS Type Condition ICD9-CM Code [id number] Code Onset Dates Condition S tatus SNOMED Code Problem Lumbago with sciatica, right side M54.41 Active [id number] Problem Other chronic pain G89.29 Active 8 7039100 Problem Bilateral primary osteoarthritis of knee M17.0 Active 846649311 Problem Chronic pain syndrome G89.4 Active 616233345 Problem Anxiety disorder, unspecified F41.9 Active 591803338 Problem Lumbago with sciatica, left side M54.42 Active 841988271 ALLERGIES No Information ENCOUNTERS Encounter Location Date Diagnosis [place] [address] [address] Jul, [place] [address] [address] Apr, Chronic pain syndrome G89.4 [place] [address] [address] Apr, Encounter for immunization Z23 ; Lumbago with sciatica, left side M54.42 and Tinea corporis B35.4 [place] [address] [address] Mar, [place] [address] [address] Mar, [place] [address] [address] Mar, Chronic pain syndrome G89.4 [place] [address] [address] Mar, [facility] [address] [place] [id number] [place] [address] Mar, [facility] [address] [address] Mar, [facility] [address] [place] [id number] [place] [address] Feb, Chronic pain syndrome G89.4 [facility] [address] [address] Feb, [facility] [address] [address] Jan, Chronic pain syndrome G89.4 [facility] [address] [address] Dec, Chronic pain syndrome G89.4 [place] [address] [address] Dec, Chronic pain syndrome G89.4 and Anxiety disorder, unspecified F41.9 [facility] [address] [place] [id number] [place] [address] Nov, [facility] [address] [address] Oct, [facility] [address] [place] [id number] [place] [address] Oct, [facility] [address] [facility] [id number] [address] [address] Oct, Acute bronchitis, unspecifie d organism J20.9 and Nasal congestion R09.81 [facility] [address] [address] September, [facility] [address] [address] Aug, Lumbago with sciatica, left side M54.42 ; Lumbago with sciatica, right side M54.41 and Other chronic pain G89.29 [facility] [address] [place] [address] [id number] [place] [address] Aug, [facility] [address] [place] [id number] [place] [address] Jul, [facility] [address] [place] [address] [id number] [place] [address] Jun, [facility] [address] [place] [id number] [place] [address] May, [facility] [address] [address] Apr, Pain in right knee M25.561 [facility] [address] [address] Apr, Pain in right knee M25.561 [facility] [address] [address] Mar, Pain in right knee M25.561 [facility] [address] [place] [id number] [place] [address] Mar, [facility] [address] [place] [id number] [place] [address] Mar, Chronic pain syndrome G89.4 [facility] [address] [place] [id number] [place] [address] Feb, [facility] [address] [place] [id number] [place] [address] Feb, [facility] [address] [place] [id number] [place] [address] Dec, [facility] [address] [place] [id number] [place] [address] Dec, [facility] [address] [place] [id number] [place] [address] Nov, Chronic pain syndrome G89.4 [facility] [address] [place] [id number] [place] [address] Nov, [facility] [address] [place] [id number] [place] [address] Oct, [facility] [address] [place] [id number] [place] [address] Oct, [facility] [address] [place] [address] [id number] [place] [address] Oct, [facility] [address] [place] [address] [id number] [place] [address] Oct, Allergic reaction to drug, subsequent en counter T78.40XD [facility] [address] [place] [address] [id number] [place] [address] September, [facility] [address] [place] [address] [id number] [place] [address] September, [facility] [address] [place] [id number] [place] [address] September, Low back pain radiating to lower extremi ty M54.5 [facility] [address] [place] [id number] [place] [address] Aug, [facility] [address] [place] [id number] [place] [address] Aug, [facility] [address] [place] [id number] [place] [address] Aug, [facility] [address] [place] [id number] [place] [address] Aug, [facility] [address] [place] [id number] [place] [address] Aug, Incisional infection, initial encounter T81.4XXA [facility] [address] [place] [id number] [place] [address] Aug, [facility] [address] [place] [address] [id number] [place] [address] Jul, [facility] [address] [place] [id number] [place] [address] Jul, [facility] [address] [place] [address] [id number] [place] [address] Jul, Chronic pain syndrome G89.4 [facility] [address] [address] Jul, Pre-op evaluation Z01.818 [facility] [address] [address] Jul, [facility] [address] [address] Jun, Anxiety disorder, unspecified F41.9 and Chronic pain syndrome G89.4 [facility] [address] [address] Jun, [facility] [address] [address] Jun, [facility] [address] [address] Jun, [facility] [address] [address] Jun, [facility] [address] [address] Jun, Lumbar neuritis M54.16 [facility] [address] [address] May, [facility] [address] [address] May, [facility] [address] [address] May, Encounter for therapeutic drug level mon itoring Z51.81 ; Encounter for immunization Z23 and Chronic pain syndrome G89.4 [facility] [address] [address] May, Lumbar neuritis M54.16 [facility] [address] [address] May, [facility] [address] [address] Apr, Lumbar neuritis M54.16 [facility] [address] [address] 06 Apr, 2017 [facility] [address] [address] Mar, Lumbar neuritis M54.16 [facility] [address] [address] 08 Mar, 2017 [facility] [address] [address] Mar, [facility] [address] [address] Feb, Lumbar neuritis M54.16 [facility] [address] [address] 18 Feb, 2017 Lumbar neuritis M54.16 [facility] [address] [address] Feb, [facility] [address] [address] Feb, [facility] [address] [address] 25 Jan, 2017 [facility] [address] [address] 22 Jan, 2017 Peroneal tendonitis of left lower extrem ity M76.72 [facility] [address] [address] 20 Jan, 2017 Lumbar neuritis M54.16 [facility] [address] [address] 12 Jan, 2017 [facility] [address] [address] 2016 Lumbar neuritis M54.16 [facility] [address] [address] Dec, [facility] [address] [address] Dec, Pain in right knee M25.561 ; Lumbar neur itis M54.16 and Cervical neuritis M54.12 [place] [address] [address] 14 Dec, 2016 [facility] [address] [address] Dec, [place] [address] [address] Nov, Lumbar neuritis M54.16 [facility] [address] [address] Nov, Bilateral primary osteoarthritis of knee M17.0 [place] [address] [address] Nov, [place] [address] [address] Nov, Bronchitis J40 and Plantar fasciitis M72 .2 [place] [address] [address] Nov, [place] [address] [address] Oct, Lumbar neuritis M54.16 [place] [address] [address] Oct, Lumbar neuritis M54.16 [place] [address] [address] Oct, Lumbar neuritis M54.16 [facility] [address] [address] Oct, Plantar fasciitis M72.2 and Pain in righ t knee M25.561 [facility] [address] [address] Oct, Lumbar neuritis M54.16 ; Cervical neurit is M54.12 ; Other specified abdominal hernia without obstruction or gangrene K45.8 ; Heel spur, left M77.32 ; Plantar fasciitis M72.2 and Pain in right knee M25.561 [facility] [address] [place] [id number] [place] [address] 13 Oct, 2016 [facility] [address] [place] [id number] [place] [address] 14 Aug, 2014 [facility] [address] [place] [id number] [place] [address], [place] [address] Aug, [facility] [place] [facility] [address] [place] [address] [id number] [place] [address] Apr, [facility] [address] [place] [id number] [place] [address], [place] [address] Apr, [facility] [address] [address] Mar, [facility] [address] [address] Mar, [facility] [address] [address] Feb, [facility] [address] [place] [id number] [place] [address] Feb, [facility] [address] [address] Feb, [facility] [address] [place] [id number] [place] [address] Feb, [facility] [place] [facility] [address] [place] [id number] [place] [address] Feb, [facility] [place] [facility] [address] [place] [id number] [place] [address] Feb, [facility] [place] [facility] [address] [address] Feb, [facility] [place] [facility] [address] [place] [id number] [place] [address] Feb, [facility] [place] [facility] [address] [place] [address] [id number] [place] [address] 30 Sep, 2014 [facility] [place] [facility] [address] [id number] [place] [address] 30 Sep, 2013 [facility] [place] [facility] [address] [id number] [place] [address] 30 Sep, 2013 [facility] [place] [facility] [address] [id number] [place] [address] 30 Sep, 2013 [facility] [place] [facility] [address] [id number] [place] [address] 30 Sep, 2013 [facility] [place] [facility] [address] [facility] [id number] [place] [address] 30 Sep, 2013 [facility] [place] [facility] [address] [id number] [place] [address] 26 Sep, 2013 [facility] [place] [facility] [address] [id number] [place] [address] 26 Sep, 2013 [facility] [place] [facility] [address] [id number] [place] [address] 22 Sep, 2013 [facility] [place] [facility] [address] [id number] [place] [address] 22 Sep, 2014 [facility] [place] [facility] [address] [id number] [place] [address] 16 Sep, 2013 [facility] [place] [facility] [address] [id number] [place] [address] 16 Sep, 2014 [facility] [place] [facility] [address] [id number] [place] [address] 16 Sep, 2013 [facility] [place] [facility] [address] [id number] [place] [address] 16 Sep, 2013 [facility] [place] [facility] [address] [id number] [place] [address] 12 Sep, 2013 [facility] [place] [facility] [address] [id number] [place] [address] 12 Sep, 2013 [facility] [place] [facility] [address] [id number] [place] [address] 12 Sep, 2013 [facility] [place] [facility] [address] [id number] [place] [address] 12 Sep, 2013 [facility] [place] [facility] [address] [id number] [facility] [address] Jan, 2013 [facility] [place] [facility] [address] [facility] [id number] [facility] [place] [address] Jan, 2013 [facility] [place] [facility] [address] [facility] [id number] [facility] [place] [address] Jan, 2013 [facility] [place] [facility] [address] [id number] [facility] [place] [address] Jan, 2013 [facility] [place] [facility] [address] [facility] [id number] [facility] [place] [address] Jan, 2013 [facility] [place] [facility] [address] [id number] [facility] [place] [address] Jan, 2013 [facility] [place] [facility] [address] [facility] [id number] [place] [address] Dec, [facility] [place] [facility] [address] [id number] [facility] [place] [address] Dec, [facility] [place] [facility] [address] [facility] [id number] [facility] [place] [address] Dec, [facility] [place] [facility] [address] [id number] [facility] [place] [address] Dec, [facility] [place] [facility] [address] [facility] [id number] [place] [address] Dec, [facility] [place] [facility] [address] [id number] [place] [address] Dec, [facility] [place] [facility] [address] [facility] [id number] [place] [address] Dec, [facility] [place] [facility] [address] [id number] [place] [address] Dec, [facility] [place] [facility] [address] [facility] [id number] [place] [address] Dec, [facility] [place] [facility] [address] [id number] [facility] [place] [address] Dec, [facility] [place] [facility] [address] [id number] [place] [address] Dec, [facility] [place] [facility] [address] [id number] [facility] [place] [address] Dec, [facility] [place] [facility] [address] [facility] [id number] [facility] [place] [address] Dec, [facility] [place] [facility] [address] [facility] [id number] [facility] [place] [address] Dec, [facility] [place] [facility] [address] [id number] [facility] [place] [address] Dec, [facility] [place] [facility] [address] [id number] [facility] [place] [address] Dec, [facility] [place] [facility] [address] [facility] [id number] [place] [address] Dec, [facility] [place] [facility] [address] [id number] [place] [address] Dec, [facility] [place] [facility] [address] [id number] [place] [address] Dec, [facility] [place] [facility] [address] [id number] [place] [address] Nov, [facility] [place] [facility] [address] [id number] [place] [address] Nov, [facility] [place] [facility] [address] [id number] [place] [address] Nov, [facility] [place] [facility] [address] [id number] [place] [address] Nov, [facility] [place] [facility] [address] [id number] [place] [address] Nov, [facility] [place] [facility] [address] [id number] [place] [address] Nov, [facility] [place] [facility] [address] [facility] [id number] [place] [address] Nov, [facility] [place] [facility] [address] [id number] [place] [address] Nov, [facility] [place] [facility] [address] [id number] [place] [address] Nov, [facility] [address] [id number] [place] [address] Nov, [facility] [address] [id number] [place] [address] Nov, [facility] [address] [id number] [place] [address] Oct, [facility] [address] [id number] [place] [address] Oct, [facility] [address] [id number] [place] [address] Oct, [facility] [address] [id number] [place] [address] Apr, IMMUNIZATIONS No Known Immunizations SOCIAL HISTORY Never Assessed REASON FOR VISIT PLAN OF CARE VITAL SIGNS MEDICATIONS Unknown Medications RESULTS No Results PROCEDURES Procedure Date Ordered Result Body Site X-RAY EXAM OF LOWER SPINE December 01, 2013 X-RAY EXAM OF THORACIC SPINE December 01, 2013 INSTRUCTIONS MEDICATIONS ADMINISTERED No Known Medications MEDICAL [...]
--- OUTSIDE RECORDS SUMMARY | 2019-11-23 06:17 | XMS REPORT ---
Author Author Pal MERA Organization [facility] [place] Address [address] [place] [address] Care Team Providers Care Truck Driver Teamster Name Role Phone OSMANI MERA Unavailable PROBLEMS Type Condition ICD9-CM Code PFE36-MY Code Onset Dates Condition S tatus SNOMED Code Problem Bilateral primary osteoarthritis of knee M17.0 Active 718453474 Problem Chronic pain syndrome G89.4 Active 463300863 Problem Lung nodule < 6cm on CT R91.1 Active 643803203 Problem Panlobular emphysema J43.1 Active 9082926 Problem Anxiety disorder, unspecified F41.9 Active 770348384 Problem Other chronic pain G89.29 Active 8 3851663 Problem Lumbago with sciatica, left side M54.42 Active 957295957 Problem Lumbago with sciatica, right side M54.41 Active [id number] ALLERGIES No Information ENCOUNTERS Encounter Location Date Diagnosis [place] [address] [facility] [id number] [address] [place] [phone] Oct, [place] [address] [facility] [id number] [address] [place] [address] Aug, Lung nodule < 6cm on CT R91. 1 and Panlobular emphysema J43.1 [place] [address] [facility] [id number] [address] [place] [id number] Jul, Chronic pain syndrome G89.4 [place] [address] [facility] [id number] [address] [place] [address] Jul, Bilateral primary osteoarthr itis of knee M17.0 ; Lumbago with sciatica, left side M54.42 and Encounter for immunization Z23 [place] [address] [facility] [id number] [address] [place] [phone] Jun, Chronic pain syndrome G89.4 [facility] [place] [address] [id number] [address] [place] [address] May, Lung nodule < 6cm on CT R91. 1 ; SOB (shortness of breath) R06.02 ; Coughing R05 and Panlobular emphysema J43.1 [facility] [place] [address] [facility] [id number] [address] [place] [phone] May, [facility] [place] [address] [facility] [id number] [address] [place] [address] May, Chronic pain syndrome G89.4 [facility] [place] [address] [facility] [id number] [address] [place] [phone] May, [facility] [place] [address] [facility] [id number] [address] [place] [phone] Apr, Chronic pain syndrome G89.4 [facility] [place] [address] [facility] [id number] [address] [place] [phone] Apr, Encounter for immunization Z 23 ; Lumbago with sciatica, left side M54.42 and Tinea corporis B35.4 [facility] [place] [address] [facility] [id number] [address] [place] [phone] Mar, [facility] [place] [address] [facility] [id number] [address] [place] [phone] Mar, [facility] [place] [address] [facility] [id number] [address] [place] [phone] Mar, Chronic pain syndrome G89.4 [facility] [place] [address] [facility] [id number] [address] [place] [phone] Mar, [facility] [place] [address] [facility] [id number] [address] [place] [phone] Mar, [facility] [place] [address] [facility] [id number] [address] [place] [phone] Mar, [facility] [place] [address] [facility] [id number] [address] [place] [phone] Feb, Chronic pain syndrome G89.4 [facility] [place] [address] [facility] [id number] [address] [place] [phone] Feb, [facility] [place] [address] [facility] [id number] [address] [place] [phone] Jan, Chronic pain syndrome G89.4 [facility] [place] [address] [facility] [id number] [address] [place] [phone] Dec, Chronic pain syndrome G89.4 [facility] [place] [address] [facility] [id number] [address] [place] [phone] Dec, Chronic pain syndrome G89.4 and Anxiety disorder, unspecified F41.9 [facility] [place] [address] [facility] [id number] [address] [place] [address] Nov, [facility] [place] [address] [place] [id number] [address] [place] [phone] Oct, [facility] [place] [address] [facility] [id number] [address] [place] [phone] Oct, [facility] [address] [place] [id number] [address] [place] [address] Oct, Acute bronchitis, unspecifie d organism J20.9 and Nasal congestion R09.81 [facility] [place] [address] [place] [id number] [address] [place] [phone] September, [facility] [place] [address] [place] [id number] [address] [place] [address] Aug, Lumbago with sciatica, left side M54.42 ; Lumbago with sciatica, right side M54.41 and Other chronic pain G89.29 [facility] [place] [address] [facility] [id number] [address] [place] [phone] Aug, [facility] [place] [address] [facility] [id number] [address] [place] [address] Jul, [facility] [address] [id number] [address] [place] [phone] Jun, [facility] [address] [id number] [address] [place] [address] May, [facility] [address] [id number] [address] [place] [address] Apr, Pain in right knee M25.561 [facility] [address] [id number] [address] [place] [address] Apr, Pain in right knee M25.561 [facility] [address] [id number] [address] [place] [address] Mar, Pain in right knee M25.561 [facility] [address] [id number] [address] [place] [phone] Mar, [facility] [address] [id number] [address] [place] [address] Mar, Chronic pain syndrome G89.4 [facility] [address] [id number] [address] [place] [phone] Feb, [facility] [address] [id number] [address] [place] [phone] Feb, [facility] [address] [id number] [address] [place] [id number] Dec, [facility] [address] [id number] [address] [place] [phone] Dec, [facility] [address] [id number] [address] [place] [address] Nov, Chronic pain syndrome G89.4 [facility] [address] [id number] [address] [place] [phone] Nov, [facility] [address] [id number] [address] [place] [phone] Oct, [facility] [address] [id number] [address] [place] [phone] Oct, [facility] [place] [address] [id number] [address] [place] [phone] Oct, [facility] [place] [address] [facility] [id number] [address] [place] [address] Oct, Allergic reaction to drug, s ubsequent encounter T78.40XD [facility] [place] [address] [id number] [address] [place] [address] September, [facility] [place] [address] [id number] [address] [place] [phone] September, [facility] [place] [address] [id number] [address] [place] [phone] September, Low back pain radiating to l ower extremity M54.5 [facility] [place] [address] [facility] [id number] [address] [place] [phone] Aug, [facility] [place] [address] [id number] [address] [place] [phone] Aug, [facility] [place] [address] [facility] [id number] [address] [place] [phone] Aug, [facility] [place] [address] [facility] [id number] [address] [place] [phone] Aug, [facility] [place] [address] [facility] [id number] [address] [place] [phone] Aug, Incisional infection, initia l encounter T81.4XXA [facility] [place] [address] [id number] [address] [place] [phone] Aug, [facility] [place] [address] [facility] [id number] [address] [place] [phone] Jul, [facility] [place] [address] [id number] [address] [place] [phone] Jul, [facility] [place] [address] [facility] [id number] [address] [place] [phone] Jul, Chronic pain syndrome G89.4 [facility] [place] [address] [facility] [id number] [address] [place] [address] Jul, Pre-op evaluation Z01.818 [facility] [place] [address] [id number] [address] [place] [phone] Jul, [facility] [place] [address] [facility] [id number] [address] [place] [phone] Jun, Anxiety disorder, unspecifie d F41.9 and Chronic pain syndrome G89.4 [facility] [place] [address] [id number] [address] [place] [phone] Jun, [facility] [place] [address] [facility] [id number] [address] [place] [phone] Jun, [facility] [place] [address] [facility] [id number] [address] [place] [id number] Jun, [facility] [place] [address] [facility] [id number] [address] [place] [phone] Jun, [facility] [place] [address] [facility] [id number] [address] [place] [phone] Jun, Lumbar neuritis M54.16 [facility] [place] [address] [facility] [id number] [address] [place] [phone] May, [facility] [place] [address] [facility] [id number] [address] [place] [phone] May, [facility] [place] [address] [facility] [id number] [address] [place] [address] May, Encounter for therapeutic dr ug level monitoring Z51.81 ; Encounter for immunization Z23 and Chronic pain syndrome G89.4 [facility] [place] [address] [facility] [id number] [address] [place] [address] May, Lumbar neuritis M54.16 [facility] [place] [address] [facility] [id number] [address] [place] [phone] May, [facility] [place] [address] [id number] [address] [place] [phone] Apr, Lumbar neuritis M54.16 [facility] [place] [address] [id number] [address] [place] [phone] Apr, [facility] [place] [address] [id number] [address] [place] [phone] Mar, Lumbar neuritis M54.16 [facility] [place] [address] [id number] [address] [place] [phone] Mar, [facility] [place] [address] [id number] [address] [place] [phone] Mar, [facility] [place] [address] [id number] [address] [place] [address] Feb, Lumbar neuritis M54.16 [facility] [place] [address] [id number] [address] [place] [id number] Feb, Lumbar neuritis M54.16 [facility] [place] [address] [id number] [address] [place] [phone] Feb, [facility] [place] [address] [id number] [address] [place] [id number] Feb, [facility] [place] [address] [id number] [address] [place] [id number] 25 Jan, 2017 [facility] [place] [address] [id number] [address] [place] [phone] 22 Jan, 2017 Peroneal tendonitis of left lower extremity M76.72 [facility] [place] [address] [id number] [address] [place] [phone] 20 Jan, 2017 Lumbar neuritis M54.16 [facility] [place] [address] [id number] [address] [place] [phone] 12 Jan, 2017 [facility] [place] [address] [id number] [address] [place] [phone] Dec, Lumbar neuritis M54.16 [facility] [place] [address] [id number] [address] [place] [phone] Dec, [facility] [place] [address] [id number] [address] [place] [address] Dec, Pain in right knee M25.561 ; Lumbar neuritis M54.16 and Cervical neuritis M54.12 [facility] [place] [address] [id number] [address] [place] [phone] Dec, [facility] [place] [address] [id number] [address] [place] [phone] Dec, [facility] [place] [address] [id number] [address] [place] [phone] Nov, Lumbar neuritis M54.16 [facility] [place] [address] [id number] [address] [place] [phone] Nov, Bilateral primary osteoarthr itis of knee M17.0 [facility] [place] [address] [id number] [address] [place] [phone] Nov, [facility] [place] [address] [id number] [address] [place] [phone] Nov, Bronchitis J40 and Plantar f asciitis M72.2 [facility] [place] [address] [id number] [address] [place] [phone] Nov, [facility] [place] [address] [id number] [address] [place] [address] Oct, Lumbar neuritis M54.16 [facility] [place] [address] [id number] [address] [place] [phone] Oct, Lumbar neuritis M54.16 [facility] [place] [address] [id number] [address] [place] [address] Oct, Lumbar neuritis M54.16 [facility] [place] [address] [id number] [address] [place] [phone] Oct, Plantar fasciitis M72.2 and Pain in right knee M25.561 [facility] [address] [id number] [address] [place] [address] 16 Oct, 2016 Lumbar neuritis M54.16 ; Cer vical neuritis M54.12 ; Other specified abdominal hernia without obstruction or gangrene K45.8 ; Heel spur, left M77.32 ; Plantar fasciitis M72.2 and Pain in right knee M25.561 [facility] [address] [id number] [address] [place] [phone] 13 Oct, 2016 [facility] [address] [id number] [address] [place] [phone] 14 Aug, 2014 [facility] [address] [id number] [address] [place] [phone] Aug, [facility] [address] [id number] [address] [place] [phone] Apr, [facility] [address] [id number] [address] [place] [phone] Apr, [facility] [address] [id number] [address] [place] [phone] Mar, [facility] [address] [id number] [address] [place] [phone] Mar, [facility] [address] [id number] [address] [place] [phone] Feb, [facility] [address] [id number] [address] [place] [phone] Feb, [facility] [address] [id number] [address] [place] [phone] Feb, [facility] [address] [id number] [address] [place] [phone] Feb, [facility] [address] [id number] [address] [place] [phone] Feb, [facility] [address] [id number] [address] [place] [address], [place] [id number] 07 Feb, 2013 [facility] [address] [id number] [address] [place] [address], [place] [phone] 07 Feb, 2013 [facility] [address] [id number] [address] [place] [address], [place] [address] 07 Oct, 2013 [facility] [address] [id number] [address] [place] [address], [place] [address] 30 Sep, 2013 [facility] [address] [id number] [address] [place] [address], [place] [phone] 30 Sep, 2013 [facility] [address] [id number] [address] [place] [address], [place] [id number] 30 Sep, 2013 [facility] [address] [id number] [address] [place] [address], [place] [phone] 30 Sep, 2013 [facility] [address] [id number] [address] [place] [address], [place] [id number] 30 Sep, 2013 [facility] [address] [id number] [address] [place] [address], [place] [id number] 30 Sep, 2013 [facility] [address] [id number] [address] [place] [address], [place] [id number] 26 Sep, 2013 [facility] [address] [id number] [address] [place] [address], [place] [id number] 26 Sep, 2013 [facility] [address] [id number] [address] [place] [address], [place] [id number] 22 Sep, 2013 [facility] [address] [id number] [address] [place] [address], [place] [id number] 22 Sep, 2013 [facility] [address] [id number] [address] [place] [address], [place] [id number] 16 Sep, 2013 [facility] [address] [id number] [address] [place] [address], [place] [id number] 16 Sep, 2013 [facility] [address] [id number] [address] [place] [address], [place] [id number] 16 Sep, 2013 [facility] [address] [id number] [address] [place] [address], [place] [id number] 16 Jan, 2013 [facility] [address] [id number] [address] [place] [address], [place] [id number] 12 Jan, 2013 [facility] [address] [id number] [address] [place] [address], [place] [address] 12 Jan, 2013 [facility] [address] [id number] [address] [place] [address], [place] [id number] 12 Jan, 2013 [facility] [address] [id number] [address] [place] [address], [place] [id number] 12 Jan, 2013 [facility] [address] [id number] [address] [place] [address], [place] [id number] 09 Jan, 2013 [facility] [address] [id number] [address] [place] [address], [place] [id number] 09 Jan, 2013 [facility] [address] [id number] [address] [place] [address], [place] [id number] 09 Jan, 2013 [facility] [address] [id number] [address] [place] [address], [place] [id number] Jan, 2013 [facility] [address] [id number] [address] [place] [address], [place] [id number] 05 Jan, 2013 [facility] [address] [id number] [address] [place] [address], [place] [id number] Jan, 2013 [facility] [address] [id number] [address] [place] [address], [place] [id number] Dec, [facility] [address] [id number] [address] [place] [address], [place] [id number] Dec, [facility] [address] [id number] [address] [place] [address], [place] [id number] Dec, [facility] [address] [id number] [address] [place] [address], [place] [id number] Dec, [facility] [address] [id number] [address] [place] [address], [place] [id number] Dec, [facility] [address] [id number] [facility] [address] Dec, [facility] [address] [id number] [address] [place] [address], [place] [id number] Dec, [facility] [address] [id number] [address] [place] [address], [place] [address] Dec, [facility] [address] [id number] [address] [place] [address], [place] [address] Dec, [facility] [address] [id number] [address] [place] [address], [place] [id number] Dec, [facility] [address] [id number] [address] [place] [address], [place] [id number] Dec, [facility] [address] [id number] [address] [place] [address], [place] [id number] Dec, [facility] [address] [id number] [address] [place] [address], [place] [id number] Dec, [facility] [address] [id number] [address] [place] [address], [place] [address] Dec, [facility] [address] [id number] [address] [place] [address], [place] [id number] Dec, [facility] [address] [id number] [address] [place] [address], [place] [id number] Dec, [facility] [address] [id number] 24 [place] [address], [place] [address] Dec, [facility] [place] [facility] [address] [id number] [address] [place] [address], [place] [address] Dec, [facility] [place] [facility] [address] [id number] [address] [place] [address], [place] [address] Dec, [facility] [place] [facility] [address] [id number] [address] [place] [address], [place] [address] Nov, [facility] [place] [facility] [address] [id number] [address] [place] [address] Nov, [facility] [place] [address] [id number] [address] [place] [address] Nov, [facility] [place] [address] [id number] [address] [place] [address] Nov, [facility] [place] [address] [id number] [address] [place] [address] Nov, [facility] [place] [address] [id number] [address] [place] [address] Nov, [facility] [place] [address] [id number] [address] [place] [address] Nov, [facility] [place] [address] [id number] [address] [place] [address] Nov, [facility] [place] [address] [id number] [address] [place] [address] Nov, [facility] [place] [address] [id number] [address] [place] [address] Nov, [facility] [place] [address] [id number] [address] [place] [address] Nov, [facility] [place] [address] [id number] [address] [place] [address] Oct, [facility] [place] [address] [id number] [address] [place] [address] Oct, [facility] [place] [address] [id number] [address] [place] [address] Oct, [facility] [place] [address] [id number] [address] [place] [address] Apr, IMMUNIZATIONS No Known Immunizations SOCIAL HISTORY Never Assessed REASON FOR VISIT PLAN OF CARE VITAL SIGNS Height 70 in 2013-12-26 Weight 172.99 lbs 2013-12-26 Temperature 96 degrees Fahrenheit 2013-12-26 Heart Rate 78 bpm 2013-12-26 Respiratory Rate 16 2013-12-26 Blood pressure systolic 162 mmHg 2013-12-26 Blood pressure diastolic 94 mmHg 2013-12-26 MEDICATIONS Unknown Medications RESULTS No Results PROCEDURES Procedure Date Ordered Result Body Site EXTRACRANIAL STUDY Dec 26, 2013 INSTRUCTIONS MEDICATIONS ADMINISTERED No Known Medications [...]
--- OUTSIDE RECORDS SUMMARY | 2019-11-23 06:17 | XMS REPORT ---
Author Author Pal Lopez Organization [facility] Address [address] [place] [address] Care Team Providers Care Software Recruiter Name Role Phone JANE Lopez Unavailable PROBLEMS Type Condition ICD9-CM Code YNB01-OG Code Onset Dates Condition S tatus SNOMED Code Problem Lumbago with sciatica, right side M54.41 Active 819071860197584 Problem Other chronic pain G89.29 Active 8 5430597 Problem Bilateral primary osteoarthritis of knee M17.0 Active 598245835 Problem Chronic pain syndrome G89.4 Active 418695782 Problem Anxiety disorder, unspecified F41.9 Active 183487604 Problem Lumbago with sciatica, left side M54.42 Active 624239401 ALLERGIES No Information ENCOUNTERS Encounter Location Date Diagnosis [place] [address] [address] Jul, [place] [address] [address] May, [place] [address] [address] May, [place] [address] [address] May, [place] [address] [address] Apr, Chronic pain syndrome G89.4 [place] [address] [address] Apr, Encounter for immunization Z23 ; Lumbago with sciatica, left side M54.42 and Tinea corporis B35.4 [place] [address] [address] Mar, [facility] [id number] [place] [address] Mar, [facility] [address] [address] Mar, Chronic pain syndrome G89.4 [facility] [id number] [place] [address] Mar, [facility] [address] [address] Mar, [facility] [address] [address] Mar, [facility] [address] [address] Feb, Chronic pain syndrome G89.4 [facility] [address] [address] Feb, [facility] [address] [address] Jan, Chronic pain syndrome G89.4 [facility] [address] [address] Dec, Chronic pain syndrome G89.4 [facility] [address] [address] Dec, Chronic pain syndrome G89.4 and Anxiety disorder, unspecified F41.9 [facility] [address] [address] Nov, [facility] [address] [address] Oct, [facility] [address] [address] Oct, [facility] [address] [facility] [id number] [address] [place] [address] Oct, Acute bronchitis, unspecifie d organism J20.9 and Nasal congestion R09.81 [facility] [address] [place] [address] [place] [address] September, [facility] [address] [address] Aug, Lumbago with sciatica, left side M54.42 ; Lumbago with sciatica, right side M54.41 and Other chronic pain G89.29 [facility] [address] [address] Aug, [facility] [address] [address] Jul, [facility] [address] [address] Jun, [facility] [address] [address] May, [facility] [address] [address] Apr, Pain in right knee M25.561 [facility] [address] [address] Apr, Pain in right knee M25.561 [facility] [address] [address] Mar, Pain in right knee M25.561 [facility] [address] [address] Mar, [facility] [address] [address] Mar, Chronic pain syndrome G89.4 [facility] [address] [address] Feb, [facility] [address] [address] Feb, [facility] [address] [address] Dec, [facility] [address] [address] Dec, [facility] [address] [address] Nov, Chronic pain syndrome G89.4 [facility] [address] [address] Nov, [facility] [address] [address] Oct, [facility] [address] [address] Oct, [facility] [address] [address] Oct, [facility] [address] [address] Oct, Allergic reaction to drug, subsequent en counter T78.40XD [facility] [address] [address] September, [facility] [address] [address] September, [facility] [address] [address] September, Low back pain radiating to lower extremi ty M54.5 [facility] [address] [address] Aug, [facility] [address] [address] Aug, [facility] [address] [address] Aug, [facility] [address] [address] Aug, [facility] [address] [address] Aug, Incisional infection, initial encounter T81.4XXA [facility] [address] [address] Aug, [facility] [id number] [place] [address] Jul, [facility] [address] [address] Jul, [facility] [id number] [place] [address] Jul, Chronic pain syndrome G89.4 [facility] [address] [address] Jul, Pre-op evaluation Z01.818 [facility] [address] [address] Jul, [facility] [address] [address] Jun, Anxiety disorder, unspecified F41.9 and Chronic pain syndrome G89.4 [facility] [address] [address] Jun, [facility] [address] [address] Jun, [facility] [address] [address] Jun, [facility] [address] [address] Jun, [facility] [address] [address] Jun, Lumbar neuritis M54.16 [facility] [address] [address] May, [facility] [address] [address] May, [facility] [address] [address] May, Encounter for therapeutic drug level mon itoring Z51.81 ; Encounter for immunization Z23 and Chronic pain syndrome G89.4 [facility] [address] [address] May, Lumbar neuritis M54.16 [facility] [address] [address] May, [facility] [address] [place] [id number] [place] [address] Apr, Lumbar neuritis M54.16 [facility] [address] [address] 06 Apr, 2017 [facility] [address] [address] Mar, Lumbar neuritis M54.16 [facility] [address] [address] 08 Mar, 2017 [facility] [address] [address] Mar, [facility] [address] [address] Feb, Lumbar neuritis M54.16 [facility] [address] [address] 18 Feb, 2017 Lumbar neuritis M54.16 [facility] [address] [address] 16 Feb, 2017 [facility] [address] [address] Feb, [facility] [address] [address] 25 Jan, 2017 [facility] [address] [address] 22 Sep, 2016 Peroneal tendonitis of left lower extrem ity M76.72 [facility] [id number] [place] [address] 20 Jan, 2017 Lumbar neuritis M54.16 [facility] [address] [address] Jan, [facility] [address] [address] Dec, Lumbar neuritis M54.16 [facility] [address] [address] Dec, [facility] [address] [address] Dec, Pain in right knee M25.561 ; Lumbar neur itis M54.16 and Cervical neuritis M54.12 [facility] [address] [address] Dec, [facility] [address] [address] Dec, [facility] [address] [address] Nov, Lumbar neuritis M54.16 [facility] [address] [address] Nov, Bilateral primary osteoarthritis of knee M17.0 [facility] [address] [address] Nov, [facility] [address] [address] Nov, Bronchitis J40 and Plantar fasciitis M72 .2 [facility] [address] [address] Nov, [facility] [address] [address] Oct, Lumbar neuritis M54.16 [facility] [address] [address] Oct, Lumbar neuritis M54.16 [facility] [address] [address] Oct, Lumbar neuritis M54.16 [facility] [address] [address] Oct, Plantar fasciitis M72.2 and Pain in righ t knee M25.561 [facility] [address] [address] 16 Oct, 2016 Lumbar neuritis M54.16 ; Cervical neurit is M54.12 ; Other specified abdominal hernia without obstruction or gangrene K45.8 ; Heel spur, left M77.32 ; Plantar fasciitis M72.2 and Pain in right knee M25.561 [facility] [address] [address] 13 Oct, 2016 [facility] [address] [address] 14 Aug, 2014 [facility] [address] [address] Aug, [facility] [address] [address] Apr, [facility] [address] [address] Apr, [facility] [address] [address] Mar, [facility] [address] [address] Mar, [facility] [address] [address] Feb, [facility] [address] [address] Feb, [facility] [address] [address] Feb, [facility] [address] [address] Feb, [facility] [address] [address] Feb, [facility] [address] [address] Feb, [facility] [place] [facility] [address] [id number] [place] [address] 07 Feb, 2013 [facility] [place] [facility] [address] [id number] [place] [address] 07 Oct, 2013 [facility] [place] [facility] [address] [id number] [place] [address] 30 Sep, 2013 [facility] [place] [facility] [address] [id number] [place] [address] 30 Sep, 2013 [facility] [place] [facility] [id number] [place] [address] 30 Sep, 2013 [facility] [place] [facility] [address] [id number] [place] [address] 30 Sep, 2013 [facility] [place] [facility] [address] [facility] [id number] [place] [address] 30 Sep, 2013 [facility] [place] [facility] [id number] [place] [address] 30 Sep, 2013 [facility] [place] [facility] [id number] [place] [address] 26 Sep, 2013 [facility] [place] [facility] [id number] [place] [address] 26 Sep, 2013 [facility] [place] [facility] [address] [facility] [id number] [place] [address] 22 Sep, 2013 [facility] [place] [facility] [id number] [place] [address] 22 Sep, 2013 [facility] [place] [facility] [address] [facility] [id number] [place] [address] 16 Sep, 2013 [facility] [place] [facility] [address] [id number] [place] [address] 16 Sep, 2013 [facility] [place] [facility] [address] [facility] [id number] [place] [address] 16 Sep, 2013 [facility] [place] [facility] [address] [facility] [id number] [place] [address] 16 Sep, 2013 [facility] [place] [facility] [address] [facility] [id number] [place] [address] 12 Sep, 2013 [facility] [place] [facility] [address] [id number] [facility] [address] Jan, 2013 [facility] [place] [facility] [address] [facility] [id number] [facility] [address] Jan, 2013 [facility] [place] [facility] [address] [facility] [id number] [place] [address] Jan, 2013 [facility] [place] [facility] [address] [id number] [facility] [address] Jan, 2013 [facility] [place] [facility] [address] [facility] [id number] [facility] [place] [address] Jan, 2013 [facility] [place] [facility] [address] [id number] [facility] [place] [address] Jan, 2013 [facility] [place] [facility] [address] [facility] [id number] [place] [address] Jan, 2013 [facility] [place] [facility] [address] [facility] [id number] [facility] [place] [address] Jan, 2013 [facility] [place] [facility] [address] [facility] [id number] [place] [address] Jan, 2013 [facility] [place] [facility] [address] [facility] [id number] [place] [address] Dec, [facility] [place] [facility] [address] [facility] [id number] [place] [address] Dec, 2013 [facility] [place] [facility] [address] [id number] [place] [address] Dec, [facility] [place] [facility] [address] [facility] [id number] [place] [address] Dec, [facility] [place] [facility] [address] [id number] [place] [address] Dec, [facility] [place] [facility] [address] [facility] [id number] [place] [address] Dec, [facility] [place] [facility] [address] [id number] [place] [address] Dec, 2013 [facility] [place] [facility] [address] [id number] [place] [address] Dec, [facility] [place] [facility] [address] [id number] [facility] [place] [address] Dec, [facility] [place] [facility] [address] [facility] [id number] [facility] [place] [address] Dec, [facility] [place] [facility] [address] [id number] [facility] [place] [address] Dec, [facility] [place] [facility] [address] [id number] [facility] [place] [address] Dec, [facility] [place] [facility] [address] [id number] [facility] [place] [address] Dec, [facility] [place] [facility] [address] [facility] [id number] [place] [address] Dec, [facility] [place] [facility] [address] [id number] [place] [address] Dec, [facility] [place] [facility] [address] [id number] [place] [address] Dec, [facility] [place] [facility] [address] [id number] [place] [address] Dec, [facility] [place] [facility] [address] [id number] [place] [address] Dec, [facility] [place] [facility] [address] [id number] [place] [address] Dec, [facility] [place] [facility] [address] [id number] [place] [address] Nov, [facility] [place] [facility] [address] [id number] [place] [address] Nov, [facility] [place] [facility] [address] [id number] [place] [address] Nov, [facility] [place] [facility] [address] [id number] [place] [address] Nov, [facility] [place] [facility] [address] [id number] [place] [address] Nov, [facility] [place] [facility] [address] [id number] [place] [address] Nov, [facility] [id number] [place] [address] Nov, [facility] [id number] [place] [address] Nov, [facility] [id number] [place] [address] Nov, [facility] [id number] [place] [address] Nov, [facility] [id number] [place] [address] Nov, [facility] [id number] [place] [address] Oct, [facility] [id number] [place] [address] Oct, [facility] [id number] [place] [address] Oct, [facility] [address] [facility] [id number] [place] [address] Apr, IMMUNIZATIONS No Known Immunizations SOCIAL HISTORY Never Assessed REASON FOR VISIT PLAN OF CARE VITAL SIGNS Height 70 in 2013-11-03 Weight 176.19 lbs 2013-11-03 Temperature 97.2 degrees Fahrenheit 2013-11-03 Heart Rate 80 bpm 2013-11-03 Respiratory Rate 18 2013-11-03 Blood pressure systolic 134 mmHg 2013-11-03 Blood pressure diastolic 82 mmHg 2013-11-03 MEDICATIONS Unknown Medications RESULTS No Results PROCEDURES Procedure Date Ordered Result Body Site VISIT November 03, 2013 INSTRUCTIONS MEDICATIONS ADMINISTERED No Known Medications [...]
--- OUTSIDE RECORDS SUMMARY | 2019-11-23 06:17 | XMS REPORT ---
Author Author Pla Lopez Organization [facility] Address [address] [place] [address] Care Team Providers Care Horizontal Drill Operator Name Role Phone JANE Lopez Unavailable PROBLEMS Type Condition ICD9-CM Code LPK36-DL Code Onset Dates Condition S tatus SNOMED Code Problem Lumbago with sciatica, right side M54.41 Active 836643324745228 Problem Other chronic pain G89.29 Active 8 6865137 Problem Bilateral primary osteoarthritis of knee M17.0 Active 266339953 Problem Chronic pain syndrome G89.4 Active 684086479 Problem Anxiety disorder, unspecified F41.9 Active 500061244 Problem Lumbago with sciatica, left side M54.42 Active 061526024 ALLERGIES No Information ENCOUNTERS Encounter Location Date Diagnosis [place] [address] [address] Jul, [place] [address] [address] Apr, Chronic pain syndrome G89.4 [place] [address] [address] Apr, Encounter for immunization Z23 ; Lumbago with sciatica, left side M54.42 and Tinea corporis B35.4 [place] [address] [address] Mar, [place] [address] [address] Mar, [place] [address] [address] Mar, Chronic pain syndrome G89.4 [place] [address] [address] Mar, [facility] [address] [place] [id number] [place] [address] Mar, [facility] [address] [address] Mar, [facility] [id number] [place] [address] Feb, Chronic pain syndrome G89.4 [facility] [address] [address] Feb, [facility] [address] [address] Jan, Chronic pain syndrome G89.4 [facility] [address] [address] Dec, Chronic pain syndrome G89.4 [place] [address] [address] Dec, Chronic pain syndrome G89.4 and Anxiety disorder, unspecified F41.9 [facility] [address] [id number] [place] [address] Nov, [facility] [address] [address] Oct, [facility] [id number] [place] [address] Oct, [facility] [address] [facility] [id number] [place] [address] Oct, Acute bronchitis, unspecifie d organism J20.9 and Nasal congestion R09.81 [facility] [address] [address] September, [facility] [address] [address] Aug, Lumbago with sciatica, left side M54.42 ; Lumbago with sciatica, right side M54.41 and Other chronic pain G89.29 [facility] [id number] [place] [address] Aug, [facility] [id number] [place] [address] Jul, [facility] [id number] [place] [address] Jun, [facility] [id number] [place] [address] May, [facility] [address] [address] Apr, Pain in right knee M25.561 [facility] [address] [address] Apr, Pain in right knee M25.561 [facility] [address] [address] Mar, Pain in right knee M25.561 [facility] [id number] [place] [address] Mar, [facility] [id number] [place] [address] Mar, Chronic pain syndrome G89.4 [facility] [id number] [place] [address] Feb, [facility] [id number] [place] [address] Feb, [facility] [id number] [place] [address] Dec, [facility] [id number] [place] [address] Dec, [facility] [id number] [place] [address] Nov, Chronic pain syndrome G89.4 [facility] [id number] [place] [address] Nov, [facility] [id number] [place] [address] Oct, [facility] [id number] [place] [address] Oct, [facility] [id number] [place] [address] Oct, [facility] [id number] [place] [address] Oct, Allergic reaction to drug, subsequent en counter T78.40XD [facility] [id number] [place] [address] September, [facility] [id number] [place] [address] September, [facility] [id number] [place] [address] September, Low back pain radiating to lower extremi ty M54.5 [facility] [id number] [place] [address] Aug, [facility] [id number] [place] [address] Aug, [facility] [id number] [place] [address] Aug, [facility] [id number] [place] [address] Aug, [facility] [id number] [place] [address] Aug, Incisional infection, initial encounter T81.4XXA [facility] [id number] [place] [address] Aug, [facility] [id number] [place] [address] Jul, [facility] [id number] [place] [address] Jul, [facility] [id number] [place] [address] Jul, Chronic pain syndrome G89.4 [facility] [address] [address] Jul, Pre-op evaluation Z01.818 [facility] [address] [address] Jul, [facility] [address] [address] Jun, Anxiety disorder, unspecified F41.9 and Chronic pain syndrome G89.4 [facility] [address] [address] Jun, [facility] [address] [address] Jun, [facility] [address] [address] Jun, [facility] [address] [address] Jun, [facility] [address] [address] Jun, Lumbar neuritis M54.16 [facility] [address] [address] May, [facility] [address] [address] May, [facility] [address] [address] May, Encounter for therapeutic drug level mon itoring Z51.81 ; Encounter for immunization Z23 and Chronic pain syndrome G89.4 [facility] [address] [address] May, Lumbar neuritis M54.16 [facility] [address] [address] May, [facility] [address] [address] Apr, Lumbar neuritis M54.16 [facility] [address] [address] 06 Apr, 2017 [facility] [address] [address] Mar, Lumbar neuritis M54.16 [facility] [address] [address] 08 Mar, 2017 [facility] [address] [address] Mar, [facility] [address] [address] Feb, Lumbar neuritis M54.16 [facility] [address] [address] 18 Feb, 2017 Lumbar neuritis M54.16 [facility] [address] [address] Feb, [facility] [address] [address] Feb, [facility] [address] [address] 25 Jan, 2017 [facility] [address] [address] 22 Jan, 2017 Peroneal tendonitis of left lower extrem ity M76.72 [facility] [address] [address] 20 Jan, 2017 Lumbar neuritis M54.16 [facility] [address] [address] 12 Jan, 2017 [facility] [address] [address] 2016 Lumbar neuritis M54.16 [facility] [address] [address] Dec, [facility] [address] [address] Dec, Pain in right knee M25.561 ; Lumbar neur itis M54.16 and Cervical neuritis M54.12 [place] [address] [address] 14 Dec, 2016 [facility] [address] [address] Dec, [place] [address] [address] Nov, Lumbar neuritis M54.16 [facility] [address] [address] Nov, Bilateral primary osteoarthritis of knee M17.0 [place] [address] [address] Nov, [place] [address] [address] Nov, Bronchitis J40 and Plantar fasciitis M72 .2 [place] [address] [address] Nov, [place] [address] [address] Oct, Lumbar neuritis M54.16 [place] [address] [address] Oct, Lumbar neuritis M54.16 [place] [address] [address] Oct, Lumbar neuritis M54.16 [facility] [address] [address] Oct, Plantar fasciitis M72.2 and Pain in righ t knee M25.561 [facility] [address] [address] Oct, Lumbar neuritis M54.16 ; Cervical neurit is M54.12 ; Other specified abdominal hernia without obstruction or gangrene K45.8 ; Heel spur, left M77.32 ; Plantar fasciitis M72.2 and Pain in right knee M25.561 [facility] [id number] [place] [address] 13 Oct, 2016 [facility] [id number] [place] [address] 14 Aug, 2014 [facility] [id number] [place] [address], [place] [address] Aug, [facility] [place] [facility] [id number] [place] [address] Apr, [facility] [id number] [place] [address], [place] [address] Apr, [facility] [address] [address] Mar, [facility] [address] [address] Mar, [facility] [address] [address] Feb, [facility] [id number] [place] [address] Feb, [facility] [address] [address] Feb, [facility] [id number] [place] [address] Feb, [facility] [place] [facility] [id number] [place] [address] Feb, [facility] [place] [facility] [id number] [place] [address] Feb, [facility] [place] [facility] [address] [address] Feb, [facility] [place] [facility] [id number] [place] [address] Feb, [facility] [place] [facility] [id number] [place] [address] 30 Sep, 2014 [facility] [place] [facility] [address] [id number] [place] [address] 30 Sep, 2013 [facility] [place] [facility] [address] [id number] [place] [address] 30 Sep, 2013 [facility] [place] [facility] [address] [id number] [place] [address] 30 Sep, 2013 [facility] [place] [facility] [address] [id number] [place] [address] 30 Sep, 2013 [facility] [place] [facility] [address] [facility] [id number] [place] [address] 30 Sep, 2013 [facility] [place] [facility] [address] [id number] [place] [address] 26 Sep, 2013 [facility] [place] [facility] [address] [id number] [place] [address] 26 Sep, 2013 [facility] [place] [facility] [address] [id number] [place] [address] 22 Sep, 2013 [facility] [place] [facility] [address] [id number] [place] [address] 22 Sep, 2014 [facility] [place] [facility] [address] [id number] [place] [address] 16 Sep, 2013 [facility] [place] [facility] [address] [id number] [place] [address] 16 Sep, 2014 [facility] [place] [facility] [address] [id number] [place] [address] 16 Sep, 2013 [facility] [place] [facility] [address] [id number] [place] [address] 16 Sep, 2013 [facility] [place] [facility] [address] [id number] [place] [address] 12 Sep, 2013 [facility] [place] [facility] [address] [id number] [place] [address] 12 Sep, 2013 [facility] [place] [facility] [address] [id number] [place] [address] 12 Sep, 2013 [facility] [place] [facility] [address] [id number] [place] [address] 12 Sep, 2013 [facility] [place] [facility] [address] [id number] [place] [address] Jan, 2013 [facility] [place] [facility] [address] [facility] [id number] [place] [address] Jan, 2013 [facility] [place] [facility] [address] [facility] [id number] [place] [address] Jan, 2013 [facility] [place] [facility] [address] [id number] [place] [address] Jan, 2013 [facility] [place] [facility] [address] [facility] [id number] [place] [address] Jan, 2013 [facility] [place] [facility] [address] [id number] [place] [address] Jan, 2013 [facility] [place] [facility] [address] [facility] [id number] [place] [address] Dec, [facility] [place] [facility] [address] [id number] [place] [address] Dec, [facility] [place] [facility] [address] [facility] [id number] [place] [address] Dec, [facility] [place] [facility] [address] [id number] [place] [address] Dec, [facility] [place] [facility] [address] [facility] [id number] [place] [address] Dec, [facility] [place] [facility] [address] [id number] [place] [address] Dec, [facility] [place] [facility] [address] [facility] [id number] [place] [address] Dec, [facility] [place] [facility] [address] [id number] [place] [address] Dec, [facility] [place] [facility] [address] [facility] [id number] [place] [address] Dec, [facility] [place] [facility] [address] [id number] [place] [address] Dec, [facility] [place] [facility] [address] [id number] [place] [address] Dec, [facility] [place] [facility] [address] [id number] [place] [address] Dec, [facility] [place] [facility] [address] [facility] [id number] [place] [address] Dec, [facility] [place] [facility] [address] [facility] [id number] [place] [address] Dec, [facility] [place] [facility] [address] [id number] [place] [address] Dec, [facility] [place] [facility] [address] [id number] [place] [address] Dec, [facility] [place] [facility] [address] [facility] [id number] [place] [address] Dec, [facility] [place] [facility] [address] [id number] [place] [address] Dec, [facility] [place] [facility] [address] [id number] [place] [address] Dec, [facility] [place] [facility] [address] [id number] [place] [address] Nov, [facility] [place] [facility] [address] [id number] [place] [address] Nov, [facility] [place] [facility] [address] [id number] [place] [address] Nov, [facility] [place] [facility] [address] [id number] [place] [address] Nov, [facility] [place] [facility] [address] [id number] [place] [address] Nov, [facility] [place] [facility] [address] [id number] [place] [address] Nov, [facility] [place] [facility] [address] [facility] [id number] [place] [address] Nov, [facility] [place] [facility] [address] [id number] [place] [address] Nov, [facility] [place] [facility] [address] [id number] [place] [address] Nov, [facility] [address] [id number] [place] [address] Nov, [facility] [address] [id number] [place] [address] Nov, [facility] [address] [id number] [place] [address] Oct, [facility] [address] [id number] [place] [address] Oct, [facility] [address] [id number] [place] [address] Oct, [facility] [address] [id number] [place] [address] Apr, IMMUNIZATIONS No Known Immunizations SOCIAL HISTORY [...]
--- OUTSIDE RECORDS SUMMARY | 2019-11-23 06:18 | XMS REPORT ---
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 Name Role Phone JANE Lopez Unavailable PROBLEMS Type Condition ICD9-CM Code [id number] Code Onset Dates Condition S tatus SNOMED Code Problem Lumbago with sciatica, right side M54.41 Active 188470996155448 Problem Other chronic pain G89.29 Active 8 [id number] Problem Bilateral primary osteoarthritis of knee M17.0 Active 508566040 Problem Chronic pain syndrome G89.4 Active [id number] Problem Anxiety disorder, unspecified F41.9 Active 407149592 Problem Lumbago with sciatica, left side M54.42 Active [id number] ALLERGIES No Information ENCOUNTERS Encounter Location Date Diagnosis [facility] [id number] [address] [place] [id number] Dec, Chronic pain syndrome G89.4 [facility] [address] [id number] Dec, Chronic pain syndrome G89.4 and Anxiety disorder, unspecified F41.9 [facility] [id number] [address] [place] [id number] Nov, [facility] [id number] [address] [place] [phone] Oct, [facility] [address] [id number] Oct, [facility] [address] [id number] [address] [place] [id number] Oct, Acute bronchitis, unspecifie d organism J20.9 and Nasal congestion R09.81 [facility] [address] [id number] [address] [place] [id number] September, [facility] [address] [id number] [address] [place] [id number] Aug, Lumbago with sciatica, left side M54.42 ; Lumbago with sciatica, right side M54.41 and Other chronic pain G89.29 [facility] [address] [id number] [address] [place] [id number] Aug, [facility] [address] [id number] [address] [place] [id number] Jul, [facility] [address] [id number] [address] [place] [id number] Jun, [facility] [address] [id number] [address] [place] [id number] May, [facility] [address] [id number] [address] [place] [id number] Apr, Pain in right knee M25.561 [facility] [address] [id number] [address] [place] [id number] Apr, Pain in right knee M25.561 [facility] [address] [id number] [address] [place] [id number] Mar, Pain in right knee M25.561 [facility] [address] [id number] [address] [place] [id number] Mar, [facility] [address] [id number] [address] [place] [id number] Mar, Chronic pain syndrome G89.4 [facility] [address] [id number] [address] [place] [id number] Feb, [facility] [address] [id number] [address] [place] [phone] Feb, [facility] [address] [id number] [address] [place] [phone] Dec, [facility] [address] [id number] [address] [place] [id number] Dec, [facility] [address] [id number] [address] [place] [id number] Nov, Chronic pain syndrome G89.4 [facility] [address] [id number] [address] [place] [phone] Nov, [facility] [address] [id number] [address] [place] [id number] Oct, [facility] [address] [id number] [address] [place] [id number] Oct, [facility] [address] [id number] [address] [place] [id number] Oct, [facility] [address] [facility] [id number] [address] [place] [phone] Oct, Allergic reaction to drug, s ubsequent encounter T78.40XD [facility] [address] [id number] [address] [place] [id number] September, [facility] [address] [id number] [address] [place] [phone] September, [facility] [address] [facility] [id number] [address] [place] [phone] September, Low back pain radiating to l ower extremity M54.5 [facility] [address] [id number] [address] [place] [id number] Aug, [facility] [address] [id number] [address] [place] [id number] Aug, [facility] [address] [facility] [id number] [address] [place] [phone] Aug, [facility] [address] [facility] [id number] [address] [place] [id number] Aug, [facility] [address] [id number] [address] [place] [id number] Aug, Incisional infection, initia l encounter T81.4XXA [facility] [address] [id number] Aug, [facility] [address] [address] Jul, [facility] [address] [address] Jul, [facility] [address] [address] Jul, Chronic pain syndrome G89.4 [facility] [address] [id number] Jul, Pre-op evaluation Z01.818 [facility] [address] [id number] Jul, [facility] [address] [address] Jun, Anxiety disorder, unspecifie d F41.9 and Chronic pain syndrome G89.4 [facility] [id number] [place] [phone] Jun, [facility] [address] [id number] Jun, [facility] [id number] [place] [id number] Jun, [facility] [address] [id number] Jun, [facility] [address] [id number] 08 Jun, 2017 Lumbar neuritis M54.16 [facility] [id number] [place] [id number] May, [facility] [address] [id number] [address] [place] [id number] May, [facility] [address] [id number] [address] [place] [id number] May, Encounter for therapeutic dr heather level monitoring Z51.81 ; Encounter for immunization Z23 and Chronic pain syndrome G89.4 [facility] [address] [id number] [address] [place] [id number] May, Lumbar neuritis M54.16 [facility] [address] [id number] [address] [place] [id number] May, [facility] [address] [id number] [address] [place] [id number] Apr, Lumbar neuritis M54.16 [facility] [address] [id number] [address] [place] [id number] Apr, [facility] [address] [id number] [address] [place] [id number] Mar, Lumbar neuritis M54.16 [facility] [address] [id number] [address] [place] [id number] Mar, [facility] [address] [id number] [address] [place] [id number] Mar, [facility] [address] [id number] [address] [place] [id number] Feb, Lumbar neuritis M54.16 [facility] [address] [id number] [address] [place] [id number] Feb, Lumbar neuritis M54.16 [facility] [address] [id number] [address] [place] [id number] Feb, [facility] [address] [id number] [address] [place] [id number] Feb, [facility] [address] [id number] [address] [place] [id number] Jan, [facility] [address] [id number] [address] [place] [id number] 22 Jan, 2017 Peroneal tendonitis of left lower extremity M76.72 [facility] [address] [id number] [address] [place] [id number] 20 Jan, 2017 Lumbar neuritis M54.16 [facility] [address] [id number] [address] [place] [id number] 12 Jan, 2017 [facility] [address] [id number] [address] [place] [id number] 2016 Lumbar neuritis M54.16 [facility] [address] [id number] [address] [place] [id number] Dec, [facility] [address] [id number] [address] [place] [id number] Dec, Pain in right knee M25.561 ; Lumbar neuritis M54.16 and Cervical neuritis M54.12 [facility] [address] [id number] [address] [place] [id number] Dec, [facility] [address] [id number] [address] [place] [id number] Dec, [facility] [address] [id number] [address] [place] [id number] Nov, Lumbar neuritis M54.16 [facility] [address] [id number] [address] [place] [id number] Nov, Bilateral primary osteoarthr itis of knee M17.0 [facility] [address] [id number] [address] [place] [id number] Nov, [facility] [address] [id number] [address] [place] [id number] Nov, Bronchitis J40 and Plantar f asciitis M72.2 [facility] [address] [id number] [address] [place] [id number] Nov, [facility] [address] [id number] [address] [place] [id number] 30 Oct, 2016 Lumbar neuritis M54.16 [facility] [address] [id number] [address] [place] [id number] 30 Oct, 2016 Lumbar neuritis M54.16 [facility] [address] [id number] [address] [place] [id number] Oct, Lumbar neuritis M54.16 [facility] [address] [id number] [address] [place] [id number] 26 Oct, 2016 Plantar fasciitis M72.2 and Pain in right knee M25.561 [facility] [address] [id number] [address] [place] [id number] 16 Oct, 2016 Lumbar neuritis M54.16 ; Cer vical neuritis M54.12 ; Other specified abdominal hernia without obstruction or gangrene K45.8 ; Heel spur, left M77.32 ; Plantar fasciitis M72.2 and Pain in right knee M25.561 [facility] [address] [id number] [address] [place] [id number] 13 Oct, 2016 [facility] [address] [id number] [address] [place] [id number] 14 Aug, 2014 [facility] [address] [id number] [address] [place] [phone] Aug, [facility] [address] [id number] [address] [place] [id number] Apr, [facility] [address] [id number] [address] [place] [id number] Apr, [facility] [address] [id number] [address] [place] [id number] Mar, [facility] [address] [id number] [address] [place] [id number] Mar, [facility] [address] [id number] [address] [place] [address], [place] [id number] 10 Feb, 2013 [facility] [address] [id number] [address] [place] [address], [place] [id number] Feb, 2013 [facility] [address] [id number] [address] [place] [address], [place] [address] Feb, 2013 [facility] [address] [id number] [address] [place] [address], [place] [id number] Feb, 2013 [facility] [address] [id number] [address] [place] [address], [place] [id number] Feb, 2013 [facility] [address] [id number] [address] [place] [address], [place] [id number] Feb, 2013 [facility] [address] [id number] [address] [place] [address], [place] [address] Feb, 2013 [facility] [address] [id number] [address] [place] [address], [place] [address] Feb, 2013 [facility] [address] [id number] [address] [place] [address], [place] [id number] 30 Sep, 2013 [facility] [address] [id number] [address] [place] [address], [place] [address] 30 Sep, 2013 [facility] [address] [id number] [address] [place] [address], [place] [address] 30 Sep, 2013 [facility] [address] [id number] [address] [place] [address], [place] [address] 30 Sep, 2013 [facility] [address] [id number] [address] [place] [address], [place] [address] 30 Sep, 2013 [facility] [address] [id number] [address] [place] [address], [place] [address] 30 Sep, 2013 [facility] [address] [id number] [address] [place] [address], [place] [address] 26 Sep, 2013 [facility] [address] [id number] [address] [place] [address], [place] [address] 26 Sep, 2013 [facility] [address] [id number] [facility] [place] [address] 22 Sep, 2013 [facility] [address] [id number] [address] [place] [address], [place] [address] 22 Sep, 2013 [facility] [address] [id number] [address] [place] [address], [place] [address] 16 Sep, 2013 [facility] [address] [id number] [address] [place] [address], [place] [address] 16 Sep, 2013 [facility] [address] [id number] [address] [place] [address], [place] [address] 16 Sep, 2013 [facility] [address] [id number] [address] [place] [address], [place] [address] 16 Sep, 2013 [facility] [address] [id number] [address] [place] [address], [place] [address] 12 Sep, 2013 [facility] [address] [id number] [address] [place] [address], [place] [address] 12 Sep, 2013 [facility] [address] [id number] [address] [place] [address], [place] [address] 12 Sep, 2013 [facility] [address] [id number] [address] [place] [address], [place] [address] 12 Sep, 2013 [facility] [address] [id number] [address] [place] [address], [place] [address] 09 Sep, 2013 [facility] [address] [id number] [address] [place] [address], [place] [address] 09 Sep, 2013 [facility] [address] [id number] [address] [place] [address], [place] [address] 09 Sep, 2013 [facility] [address] [id number] [address] [place] [address], [place] [address] 09 Sep, 2013 [facility] [address] [id number] [address] [place] [address], [place] [address] 05 Sep, 2013 [facility] [address] [id number] [address] [place] [address], [place] [address] Jan, [facility] [address] [id number] [facility] [place] [address] Dec, [facility] [address] [id number] [address] [place] [address], [place] [address] Dec, [facility] [address] [id number] [address] [place] [address], [place] [address] Dec, [facility] [address] [id number] [address] [place] [address], [place] [address] Dec, [facility] [address] [id number] [address] [place] [address], [place] [address] Dec, [facility] [address] [id number] [address] [place] [address], [place] [address] Dec, [facility] [address] [id number] [address] [place] [address], [place] [address] Dec, [facility] [address] [id number] [address] [place] [address], [place] [address] Dec, [facility] [address] [id number] [address] [place] [address], [place] [address] Dec, [facility] [address] [id number] [address] [place] [address], [place] [address] Dec, [facility] [address] [id number] [address] [place] [address], [place] [address] Dec, [facility] [address] [id number] [address] [place] [address], [place] [address] Dec, [facility] [address] [id number] [address] [place] [address], [place] [address] Dec, [facility] [address] [id number] [address] [place] [address], [place] [address] Dec, [facility] [address] [id number] [address] [place] [address], [place] [address] Dec, [facility] [address] [id number] [facility] [place] [address] Dec, [facility] [address] [id number] [facility] [place] [address] Dec, [facility] [address] [id number] [facility] [place] [address] Dec, [facility] [address] [id number] [facility] [place] [address] Dec, [facility] [address] [id number] [facility] [place] [address] Nov, [facility] [address] [id number] [address] [place] [address], [place] [address] Nov, [facility] [address] [id number] [address] [place] [address], [place] [address] Nov, [facility] [address] [id number] [address] [place] [address], [place] [address] Nov, [facility] [address] [id number] [address] [place] [address], [place] [address] Nov, [facility] [address] [id number] [address] [place] [address], [place] [address] Nov, [facility] [address] [id number] [address] [place] [address], [place] [address] Nov, [facility] [address] [id number] [address] [place] [address], [place] [address] Nov, [facility] [address] [id number] [address] [place] [address], [place] [address] Nov, [facility] [address] [id number] [address] [place] [address], [place] [address] Nov, [facility] [address] [id number] [address] [place] [address], [place] [address] Nov, [facility] [address] [id number] [address] [place] [address], [place] [address] Oct, [facility] [address] [facility] [id number] [address] [place] [id number] Oct, [facility] [address] [facility] [id number] [address] [place] [id number] Oct, [facility] [address] [facility] [id number] [address] [place] [id number] Apr, IMMUNIZATIONS No Known Immunizations SOCIAL HISTORY [...]
--- OUTSIDE RECORDS SUMMARY | 2019-11-23 06:18 | XMS REPORT ---
Author Author Pal Lopez Organization [facility] Address [address] [place] [address] Care Team Providers Care Geology Teacher Name Role Phone JANE Lopez Unavailable PROBLEMS Type Condition ICD9-CM Code [id number] Code Onset Dates Condition S tatus SNOMED Code Problem Lumbago with sciatica, right side M54.41 Active [id number] Problem Other chronic pain G89.29 Active 8 5186665 Problem Bilateral primary osteoarthritis of knee M17.0 Active 968240503 Problem Chronic pain syndrome G89.4 Active 925081604 Problem Anxiety disorder, unspecified F41.9 Active 386386929 Problem Lumbago with sciatica, left side M54.42 Active [id number] ALLERGIES No Information ENCOUNTERS Encounter Location Date Diagnosis [facility] [address] [facility] [id number] [address] [place] [address] Jan, Chronic pain syndrome G89.4 [facility] [address] [facility] [id number] [address] [place] [address] Dec, Chronic pain syndrome G89.4 [facility] [address] [facility] [id number] [address] [place] [address] Dec, Chronic pain syndrome G89.4 and Anxiety disorder, unspecified F41.9 [facility] [address] [facility] [id number] [address] [place] [address] Nov, [facility] [address] [facility] [id number] [address] [place] [address] Oct, [facility] [address] [facility] [id number] [address] [place] [address] Oct, [facility] [address] [facility] [id number] [address] [place] [address] Oct, Acute bronchitis, unspecifie d organism J20.9 and Nasal congestion R09.81 [facility] [address] [id number] [address] [place] [address] September, [facility] [address] [id number] [address] [place] [address] Aug, Lumbago with sciatica, left side M54.42 ; Lumbago with sciatica, right side M54.41 and Other chronic pain G89.29 [facility] [address] [id number] [address] [place] [address] Aug, [facility] [address] [id number] [address] [place] [address] Jul, [facility] [address] [id number] [address] [place] [address] Jun, [facility] [address] [id number] [address] [place] [address] May, [facility] [address] [id number] [address] [place] [address] Apr, Pain in right knee M25.561 [facility] [address] [id number] [address] [place] [address] Apr, Pain in right knee M25.561 [facility] [address] [id number] [address] [place] [address] Mar, Pain in right knee M25.561 [facility] [address] [id number] [address] [place] [address] Mar, [facility] [address] [id number] [address] [place] [address] Mar, Chronic pain syndrome G89.4 [facility] [address] [id number] [address] [place] [address] Feb, [facility] [address] [id number] [address] [place] [address] Feb, [facility] [address] [id number] [address] [place] [address] Dec, [facility] [address] [id number] [address] [place] [address] Dec, [facility] [address] [id number] [address] [place] [address] Nov, Chronic pain syndrome G89.4 [facility] [address] [id number] [address] [place] [address] Nov, [facility] [address] [id number] [address] [place] [address] Oct, [facility] [address] [facility] [id number] [address] [place] [address] Oct, [facility] [address] [facility] [id number] [address] [place] [address] Oct, [facility] [address] [id number] [address] [place] [address] Oct, Allergic reaction to drug, s ubsequent encounter T78.40XD [facility] [address] [id number] [address] [place] [address] September, [facility] [address] [id number] [address] [place] [address] September, [facility] [address] [facility] [id number] [address] [place] [address] September, Low back pain radiating to l ower extremity M54.5 [facility] [address] [id number] [address] [place] [address] Aug, [facility] [address] [facility] [id number] [address] [place] [address] Aug, [facility] [address] [facility] [id number] [address] [place] [address] Aug, [facility] [address] [id number] [address] [place] [address] Aug, [facility] [address] [address] Aug, Incisional infection, initia l encounter T81.4XXA [facility] [address] [address] Aug, [facility] [address] [address] Jul, [facility] [address] [address] Jul, [facility] [address] [address] Jul, Chronic pain syndrome G89.4 [facility] [address] [address] Jul, Pre-op evaluation Z01.818 [facility] [address] [address] Jul, [facility] [address] [address] Jun, Anxiety disorder, unspecifie d F41.9 and Chronic pain syndrome G89.4 [facility] [address] [id number] [address] [place] [address] Jun, [facility] [address] [address] Jun, [facility] [address] [address] Jun, [facility] [id number] [place] [address] Jun, [facility] [address] [address] Jun, Lumbar neuritis M54.16 [facility] [address] [id number] [address] [place] [address] May, [facility] [address] [id number] [address] [place] [address] May, [facility] [address] [id number] [address] [place] [address] May, Encounter for therapeutic dr ug level monitoring Z51.81 ; Encounter for immunization Z23 and Chronic pain syndrome G89.4 [facility] [address] [id number] [address] [place] [address] May, Lumbar neuritis M54.16 [facility] [address] [id number] [address] [place] [address] May, [facility] [address] [id number] [address] [place] [address] Apr, Lumbar neuritis M54.16 [facility] [address] [id number] [address] [place] [address] 06 Apr, 2017 [facility] [address] [id number] [address] [place] [address] Mar, Lumbar neuritis M54.16 [facility] [address] [id number] [address] [place] [address] 08 Mar, 2017 [facility] [address] [id number] [address] [place] [address] Mar, [facility] [address] [id number] [address] [place] [address] Feb, Lumbar neuritis M54.16 [facility] [address] [id number] [address] [place] [address] 18 Feb, 2017 Lumbar neuritis M54.16 [facility] [address] [id number] [address] [place] [address] 16 Feb, 2017 [facility] [address] [id number] [address] [place] [address] Feb, [facility] [address] [id number] [address] [place] [address] 25 Jan, 2017 [facility] [address] [id number] [address] [place] [address] 22 Jan, 2017 Peroneal tendonitis of left lower extremity M76.72 [facility] [address] [id number] [address] [place] [address] 20 Jan, 2017 Lumbar neuritis M54.16 [facility] [address] [id number] [address] [place] [address] 12 Jan, 2017 [facility] [address] [id number] [address] [place] [address] 2016 Lumbar neuritis M54.16 [facility] [address] [id number] [address] [place] [address] Dec, [facility] [address] [id number] [address] [place] [address] Dec, Pain in right knee M25.561 ; Lumbar neuritis M54.16 and Cervical neuritis M54.12 [facility] [address] [id number] [address] [place] [address] Dec, [facility] [address] [id number] [address] [place] [address] Dec, [facility] [address] [id number] [address] [place] [address] Nov, Lumbar neuritis M54.16 [facility] [address] [id number] [address] [place] [address] Nov, Bilateral primary osteoarthr itis of knee M17.0 [facility] [address] [id number] [address] [place] [address] Nov, [facility] [address] [id number] [address] [place] [address] Nov, Bronchitis J40 and Plantar f asciitis M72.2 [facility] [address] [id number] [address] [place] [address] Nov, [facility] [address] [facility] [id number] [address] [place] [address] 30 Oct, 2016 Lumbar neuritis M54.16 [facility] [address] [facility] [id number] [address] [place] [address] Oct, Lumbar neuritis M54.16 [facility] [address] [id number] [address] [place] [address] Oct, Lumbar neuritis M54.16 [facility] [address] [facility] [id number] [address] [place] [address] 26 Oct, 2016 Plantar fasciitis M72.2 and Pain in right knee M25.561 [facility] [address] [id number] [address] [place] [address] 16 Oct, 2016 Lumbar neuritis M54.16 ; Cer vical neuritis M54.12 ; Other specified abdominal hernia without obstruction or gangrene K45.8 ; Heel spur, left M77.32 ; Plantar fasciitis M72.2 and Pain in right knee M25.561 [facility] [address] [facility] [id number] [address] [place] [address] 13 Oct, 2016 [facility] [address] [id number] [address] [place] [address] 14 Aug, 2014 [facility] [address] [facility] [id number] [address] [place] [address] Aug, [facility] [address] [facility] [id number] [address] [place] [address] Apr, [facility] [address] [id number] [address] [place] [address] Apr, [facility] [address] [id number] [address] [place] [address] Mar, [facility] [address] [id number] [address] [place] [address], [place] [address] 13 Mar, 2013 [facility] [address] [id number] [address] [place] [address], [place] [address] 10 Feb, 2013 [facility] [address] [id number] [address] [place] [address], [place] [address] 10 Feb, 2013 [facility] [address] [id number] [address] [place] [address], [place] [address] Feb, 2013 [facility] [address] [id number] [address] [place] [address], [place] [address] Feb, 2013 [facility] [address] [id number] [address] [place] [address], [place] [address] Feb, 2013 [facility] [address] [id number] [address] [place] [address], [place] [address] Feb, 2013 [facility] [address] [id number] [address] [place] [address], [place] [address] Feb, 2013 [facility] [address] [id number] [address] [place] [address], [place] [address] 07 Feb, 2013 [facility] [address] [id number] [address] [place] [address], [place] [address] 30 Sep, 2013 [facility] [address] [id number] [address] [place] [address], [place] [address] 30 Sep, 2013 [facility] [address] [id number] [address] [place] [address], [place] [address] 30 Sep, 2013 [facility] [address] [id number] [address] [place] [address], [place] [address] 30 Sep, 2013 [facility] [address] [id number] [address] [place] [address], [place] [address] 30 Sep, 2013 [facility] [address] [id number] [address] [place] [address], [place] [address] 30 Sep, 2013 [facility] [address] [id number] [address] [place] [address], [place] [address] 26 Sep, 2013 [facility] [address] [id number] [facility] [place] [address] 26 Sep, 2013 [facility] [address] [id number] [address] [place] [address], [place] [address] 22 Sep, 2013 [facility] [address] [id number] [address] [place] [address], [place] [address] 22 Sep, 2013 [facility] [address] [id number] [address] [place] [address], [place] [address] 16 Sep, 2013 [facility] [address] [id number] [address] [place] [address], [place] [address] 16 Sep, 2013 [facility] [address] [id number] [address] [place] [address], [place] [address] 16 Sep, 2013 [facility] [address] [id number] [address] [place] [address], [place] [address] 16 Sep, 2013 [facility] [address] [id number] [address] [place] [address], [place] [address] 12 Sep, 2013 [facility] [address] [id number] [address] [place] [address], [place] [address] 12 Sep, 2013 [facility] [address] [id number] [address] [place] [address], [place] [address] 12 Sep, 2013 [facility] [address] [id number] [address] [place] [address], [place] [address] 12 Sep, 2013 [facility] [address] [id number] [address] [place] [address], [place] [address] 09 Sep, 2013 [facility] [address] [id number] [address] [place] [address], [place] [address] 09 Sep, 2013 [facility] [address] [id number] [address] [place] [address], [place] [address] 09 Sep, 2013 [facility] [address] [id number] [address] [place] [address], [place] [address] 09 Sep, 2013 [facility] [address] [id number] [facility] [place] [address] Jan, [facility] [address] [id number] [facility] [place] [address] Jan, [facility] [address] [id number] [facility] [place] [address] Dec, [facility] [address] [id number] [address] [place] [address], [place] [address] Dec, [facility] [address] [id number] [address] [place] [address], [place] [address] Dec, [facility] [address] [id number] [address] [place] [address], [place] [address] Dec, [facility] [address] [id number] [address] [place] [address], [place] [address] Dec, [facility] [address] [id number] [address] [place] [address], [place] [address] Dec, [facility] [address] [id number] [address] [place] [address], [place] [address] Dec, [facility] [address] [id number] [address] [place] [address], [place] [address] Dec, [facility] [address] [id number] [address] [place] [address], [place] [address] Dec, [facility] [address] [id number] [address] [place] [address], [place] [address] Dec, [facility] [address] [id number] [address] [place] [address], [place] [address] Dec, [facility] [address] [id number] [address] [place] [address], [place] [address] Dec, [facility] [address] [id number] [address] [place] [address], [place] [address] Dec, [facility] [address] [id number] [address] [place] [address], [place] [address] Dec, [facility] [address] [id number] [address] [place] [address], [place] [address] Dec, [facility] [address] [id number] [address] [place] [address], [place] [address] Dec, [facility] [address] [id number] [address] [place] [address], [place] [address] Dec, [facility] [address] [id number] [address] [place] [address], [place] [address] Dec, [facility] [address] [id number] [address] [place] [address], [place] [address] Dec, [facility] [address] [id number] [address] [place] [address], [place] [address] Nov, [facility] [address] [id number] [address] [place] [address], [place] [address] Nov, [facility] [address] [id number] [address] [place] [address], [place] [address] Nov, [facility] [address] [id number] [address] [place] [address], [place] [address] Nov, [facility] [address] [id number] [address] [place] [address], [place] [address] Nov, [facility] [address] [id number] [address] [place] [address], [place] [address] Nov, [facility] [address] [id number] [address] [place] [address], [place] [address] Nov, [facility] [address] [id number] [address] [place] [address], [place] [address] Nov, [facility] [address] [id number] [address] [place] [address], [place] [address] Nov, [facility] [address] [id number] [address] [place] [address], [place] [address] Nov, [facility] [address] [id number] [address] [place] [address] Nov, [facility] [address] [facility] [id number] [address] [place] [address] Oct, [facility] [address] [facility] [id number] [address] [place] [address] Oct, [facility] [address] [facility] [id number] [address] [place] [address] Oct, [facility] [address] [facility] [id number] [address] [place] [address] Apr, IMMUNIZATIONS No Known Immunizations SOCIAL HISTORY [...]
--- OUTSIDE RECORDS SUMMARY | 2019-11-23 06:18 | XMS REPORT ---
Author Author Pal Lopez Organization [facility] Address [address] [place] [address] Care Team Providers Care Engine Builder Name Role Phone JANE Lopez Unavailable PROBLEMS Type Condition ICD9-CM Code BQB23-RS Code Onset Dates Condition S tatus SNOMED Code Problem Lumbago with sciatica, right side M54.41 Active [id number] Problem Other chronic pain G89.29 Active 8 6122201 Problem Bilateral primary osteoarthritis of knee M17.0 Active 738178376 Problem Chronic pain syndrome G89.4 Active 304747209 Problem Anxiety disorder, unspecified F41.9 Active 241547917 Problem Lumbago with sciatica, left side M54.42 Active 637729381 ALLERGIES No Information ENCOUNTERS Encounter Location Date Diagnosis [facility] [address] [id number] [address] [place] [phone] Dec, Chronic pain syndrome G89.4 [facility] [address] [address] Dec, Chronic pain syndrome G89.4 and Anxiety disorder, unspecified F41.9 [facility] [address] [id number] [address] [place] [address] Nov, [facility] [address] [id number] [address] [place] [phone] Oct, [facility] [address] [id number] Oct, [facility] [address] [id number] [address] [place] [phone] Oct, Acute bronchitis, unspecifie d organism J20.9 and Nasal congestion R09.81 [facility] [address] [id number] [address] [place] [phone] September, [facility] [address] [id number] [address] [place] [address] Aug, Lumbago with sciatica, left side M54.42 ; Lumbago with sciatica, right side M54.41 and Other chronic pain G89.29 [facility] [address] [id number] [address] [place] [phone] Aug, [facility] [address] [id number] [address] [place] [id number] Jul, [facility] [address] [id number] [address] [place] [phone] Jun, [facility] [address] [id number] [address] [place] [address] May, [facility] [address] [id number] [address] [place] [id number] Apr, Pain in right knee M25.561 [facility] [address] [id number] [address] [place] [address] Apr, Pain in right knee M25.561 [facility] [address] [id number] [address] [place] [address] Mar, Pain in right knee M25.561 [facility] [address] [id number] [address] [place] [phone] Mar, [facility] [address] [id number] [address] [place] [phone] Mar, Chronic pain syndrome G89.4 [facility] [address] [id number] [address] [place] [phone] Feb, [facility] [address] [id number] [address] [place] [phone] Feb, [facility] [address] [id number] [address] [place] [phone] Dec, [facility] [address] [id number] [address] [place] [id number] Dec, [facility] [address] [id number] [address] [place] [phone] Nov, Chronic pain syndrome G89.4 [facility] [address] [id number] [address] [place] [phone] Nov, [facility] [address] [id number] [address] [place] [phone] Oct, [facility] [address] [id number] [address] [place] [phone] Oct, [facility] [address] [id number] [address] [place] [phone] Oct, [facility] [address] [facility] [id number] [address] [place] [phone] Oct, Allergic reaction to drug, s ubsequent encounter T78.40XD [facility] [address] [id number] [address] [place] [id number] September, [facility] [address] [id number] [address] [place] [phone] September, [facility] [address] [facility] [id number] [address] [place] [phone] September, Low back pain radiating to l ower extremity M54.5 [facility] [address] [id number] [address] [place] [phone] Aug, [facility] [address] [id number] [address] [place] [phone] Aug, [facility] [address] [facility] [id number] [address] [place] [id number] Aug, [facility] [address] [facility] [id number] [address] [place] [phone] Aug, [facility] [address] [id number] [address] [place] [address] Aug, Incisional infection, initia l encounter T81.4XXA [facility] [address] [address] Aug, [facility] [address] [address] Jul, [facility] [address] [id number] Jul, [facility] [address] [address] Jul, Chronic pain syndrome G89.4 [facility] [address] [address] Jul, Pre-op evaluation Z01.818 [facility] [address] [address] Jul, [facility] [address] [id number] Jun, Anxiety disorder, unspecifie d F41.9 and Chronic pain syndrome G89.4 [facility] [address] [id number] [address] [place] [phone] Jun, [facility] [address] [id number] Jun, [facility] [address] [id number] [address] [place] [phone] Jun, [facility] [address] [id number] Jun, [facility] [address] [id number] 08 Jun, 2017 Lumbar neuritis M54.16 [facility] [id number] [address] [place] [phone] May, [facility] [address] [id number] [address] [place] [phone] May, [facility] [address] [id number] [address] [place] [phone] May, Encounter for therapeutic dr heather level monitoring Z51.81 ; Encounter for immunization Z23 and Chronic pain syndrome G89.4 [facility] [address] [id number] [address] [place] [phone] May, Lumbar neuritis M54.16 [facility] [address] [id number] [address] [place] [phone] May, [facility] [address] [id number] [address] [place] [phone] Apr, Lumbar neuritis M54.16 [facility] [address] [id number] [address] [place] [phone] Apr, [facility] [address] [id number] [address] [place] [id number] Mar, Lumbar neuritis M54.16 [facility] [address] [id number] [address] [place] [phone] Mar, [facility] [address] [id number] [address] [place] [phone] Mar, [facility] [address] [id number] [address] [place] [address] Feb, Lumbar neuritis M54.16 [facility] [address] [id number] [address] [place] [phone] Feb, Lumbar neuritis M54.16 [facility] [address] [id number] [address] [place] [phone] Feb, [facility] [address] [id number] [address] [place] [phone] Feb, [facility] [address] [id number] [address] [place] [phone] Jan, [facility] [address] [id number] [address] [place] [phone] 22 Jan, 2017 Peroneal tendonitis of left lower extremity M76.72 [facility] [address] [id number] [address] [place] [id number] 20 Jan, 2017 Lumbar neuritis M54.16 [facility] [address] [id number] [address] [place] [id number] 12 Jan, 2017 [facility] [address] [id number] [address] [place] [phone] 2016 Lumbar neuritis M54.16 [facility] [address] [id number] [address] [place] [phone] Dec, [facility] [address] [id number] [address] [place] [phone] Dec, Pain in right knee M25.561 ; Lumbar neuritis M54.16 and Cervical neuritis M54.12 [facility] [address] [id number] [address] [place] [phone] Dec, [facility] [address] [id number] [address] [place] [id number] Dec, [facility] [address] [id number] [address] [place] [phone] Nov, Lumbar neuritis M54.16 [facility] [address] [id number] [address] [place] [phone] Nov, Bilateral primary osteoarthr itis of knee M17.0 [facility] [address] [id number] [address] [place] [id number] Nov, [facility] [address] [id number] [address] [place] [phone] Nov, Bronchitis J40 and Plantar f asciitis M72.2 [facility] [address] [id number] [address] [place] [phone] Nov, [facility] [address] [id number] [address] [place] [phone] 30 Oct, 2016 Lumbar neuritis M54.16 [facility] [address] [id number] [address] [place] [id number] 30 Oct, 2016 Lumbar neuritis M54.16 [facility] [address] [id number] [address] [place] [phone] Oct, Lumbar neuritis M54.16 [facility] [address] [id number] [address] [place] [phone] 26 Oct, 2016 Plantar fasciitis M72.2 and Pain in right knee M25.561 [facility] [address] [id number] [address] [place] [phone] 16 Oct, 2016 Lumbar neuritis M54.16 ; Cer vical neuritis M54.12 ; Other specified abdominal hernia without obstruction or gangrene K45.8 ; Heel spur, left M77.32 ; Plantar fasciitis M72.2 and Pain in right knee M25.561 [facility] [address] [id number] [address] [place] [id number] 13 Oct, 2016 [facility] [address] [id number] [address] [place] [phone] 14 Aug, 2014 [facility] [address] [id number] [address] [place] [phone] Aug, [facility] [address] [id number] [address] [place] [phone] Apr, [facility] [address] [id number] [address] [place] [phone] Apr, [facility] [address] [id number] [address] [place] [phone] Mar, [facility] [address] [id number] [address] [place] [phone] Mar, [facility] [address] [id number] [address] [place] [address], [place] [id number] 10 Feb, 2013 [facility] [address] [id number] [address] [place] [address], [place] [id number] Feb, 2013 [facility] [address] [id number] [address] [place] [address], [place] [id number] Feb, 2013 [facility] [address] [id number] [address] [place] [address], [place] [id number] Feb, 2013 [facility] [address] [id number] [address] [place] [address], [place] [id number] Feb, 2013 [facility] [address] [id number] [address] [place] [address], [place] [id number] Feb, 2013 [facility] [address] [id number] [address] [place] [address], [place] [id number] Feb, 2013 [facility] [address] [id number] [address] [place] [address], [place] [id number] Feb, 2013 [facility] [address] [id number] [address] [place] [address], [place] [id number] 30 Sep, 2013 [facility] [address] [id number] [address] [place] [address], [place] [id number] 30 Sep, 2013 [facility] [address] [id number] [address] [place] [address], [place] [id number] 30 Sep, 2013 [facility] [address] [id number] [address] [place] [address], [place] [id number] 30 Sep, 2013 [facility] [address] [id number] [address] [place] [address], [place] [id number] 30 Sep, 2013 [facility] [address] [id number] [address] [place] [address], [place] [id number] 30 Sep, 2013 [facility] [address] [id number] [address] [place] [address], [place] [id number] 26 Sep, 2013 [facility] [address] [id number] [address] [place] [address], [place] [id number] 26 Sep, 2013 [facility] [address] [id number] [facility] [place] [id number] 22 Sep, 2013 [facility] [address] [id number] [address] [place] [address], [place] [id number] 22 Sep, 2013 [facility] [address] [id number] [address] [place] [address], [place] [id number] 16 Sep, 2013 [facility] [address] [id number] [address] [place] [address], [place] [id number] 16 Sep, 2013 [facility] [address] [id number] [address] [place] [address], [place] [id number] 16 Sep, 2013 [facility] [address] [id number] [address] [place] [address], [place] [id number] 16 Sep, 2013 [facility] [address] [id number] [address] [place] [address], [place] [id number] 12 Sep, 2013 [facility] [address] [id number] [address] [place] [address], [place] [id number] 12 Sep, 2013 [facility] [address] [id number] [address] [place] [address], [place] [id number] 12 Sep, 2013 [facility] [address] [id number] [address] [place] [address], [place] [id number] 12 Sep, 2013 [facility] [address] [id number] [address] [place] [address], [place] [id number] 09 Sep, 2013 [facility] [address] [id number] [address] [place] [address], [place] [id number] 09 Sep, 2013 [facility] [address] [id number] [address] [place] [address], [place] [id number] 09 Sep, 2013 [facility] [address] [id number] [address] [place] [address], [place] [id number] 09 Sep, 2013 [facility] [address] [id number] [address] [place] [address], [place] [id number] 05 Sep, 2013 [facility] [address] [id number] [address] [place] [address], [place] [id number] Jan, [facility] [address] [id number] [facility] [address] Dec, [facility] [address] [id number] [address] [place] [address], [place] [id number] Dec, [facility] [address] [id number] [address] [place] [address], [place] [id number] Dec, [facility] [address] [id number] [address] [place] [address], [place] [id number] Dec, [facility] [address] [id number] [address] [place] [address], [place] [id number] Dec, [facility] [address] [id number] [address] [place] [address], [place] [id number] Dec, [facility] [address] [id number] [address] [place] [address], [place] [id number] Dec, [facility] [address] [id number] [address] [place] [address], [place] [id number] Dec, [facility] [address] [id number] [address] [place] [address], [place] [id number] Dec, [facility] [address] [id number] [address] [place] [address], [place] [id number] Dec, [facility] [address] [id number] [address] [place] [address], [place] [id number] Dec, [facility] [address] [id number] [address] [place] [address], [place] [id number] Dec, [facility] [address] [id number] [address] [place] [address], [place] [id number] Dec, [facility] [address] [id number] [address] [place] [address], [place] [id number] Dec, [facility] [address] [id number] [address] [place] [address], [place] [id number] Dec, [facility] [address] [id number] [facility] [address] Dec, [facility] [address] [id number] [facility] [place] [address] Dec, [facility] [address] [id number] [facility] [address] Dec, [facility] [address] [id number] [facility] [address] Dec, [facility] [address] [id number] [facility] [address] Nov, [facility] [address] [id number] [address] [place] [address], [place] [id number] Nov, [facility] [address] [id number] [address] [place] [address], [place] [id number] Nov, [facility] [address] [id number] [address] [place] [address], [place] [id number] Nov, [facility] [address] [id number] [address] [place] [address], [place] [id number] Nov, [facility] [address] [id number] [address] [place] [address], [place] [id number] Nov, [facility] [address] [id number] [address] [place] [address], [place] [id number] Nov, [facility] [address] [id number] [address] [place] [address], [place] [id number] Nov, [facility] [address] [id number] [address] [place] [address], [place] [id number] Nov, [facility] [address] [id number] [address] [place] [address], [place] [id number] Nov, [facility] [address] [id number] [address] [place] [address], [place] [id number] Nov, [facility] [address] [id number] [address] [place] [address], [place] [id number] Oct, [facility] [address] [facility] [id number] [address] [place] [id number] Oct, [facility] [address] [facility] [id number] [address] [place] [id number] Oct, [facility] [address] [facility] [id number] [address] [place] [id number] Apr, IMMUNIZATIONS Vaccine Route Administration Date Status FLU Vaccine (History) Unknown Feb 21, 2014 Administer ed SOCIAL HISTORY Never Assessed REASON FOR VISIT [...]
--- OUTSIDE RECORDS SUMMARY | 2019-11-23 06:18 | XMS REPORT ---
Author Author Pal Lopez Organization [facility] [place] Address [address] [place] [address] Care Team Providers Care Athletic Events Scorer Name Role Phone JANE Lopez Unavailable PROBLEMS Type Condition ICD9-CM Code GTS82-PV Code Onset Dates Condition S tatus SNOMED Code Problem Lumbago with sciatica, right side M54.41 Active 170841955049499 Problem Other chronic pain G89.29 Active 8 6519354 Problem Bilateral primary osteoarthritis of knee M17.0 Active 098308456 Problem Chronic pain syndrome G89.4 Active 304948301 Problem Anxiety disorder, unspecified F41.9 Active 893749747 Problem Lumbago with sciatica, left side M54.42 Active [id number] ALLERGIES No Information ENCOUNTERS Encounter Location Date Diagnosis [facility] [place] [address] [id number] [address] [place] [id number] Dec, Chronic pain syndrome G89.4 [facility] [place] [address] [id number] Dec, Chronic pain syndrome G89.4 and Anxiety disorder, unspecified F41.9 [facility] [place] [address] [id number] [address] [place] [phone] Nov, [facility] [place] [address] [id number] [address] [place] [phone] Oct, [facility] [place] [address] [id number] Oct, [facility] [address] [id number] [address] [place] [id number] Oct, Acute bronchitis, unspecifie d organism J20.9 and Nasal congestion R09.81 [facility] [place] [address] [id number] [address] [place] [phone] September, [facility] [place] [address] [id number] [address] [place] [id number] Aug, Lumbago with sciatica, left side M54.42 ; Lumbago with sciatica, right side M54.41 and Other chronic pain G89.29 [facility] [place] [address] [id number] [address] [place] [id number] Aug, [facility] [place] [address] [id number] [address] [place] [phone] Jul, [facility] [place] [address] [id number] [address] [place] [phone] Jun, [facility] [place] [address] [id number] [address] [place] [phone] May, [facility] [place] [address] [id number] [address] [place] [id number] Apr, Pain in right knee M25.561 [facility] [place] [address] [id number] [address] [place] [phone] Apr, Pain in right knee M25.561 [facility] [place] [address] [id number] [address] [place] [phone] Mar, Pain in right knee M25.561 [facility] [place] [address] [id number] [address] [place] [phone] Mar, [facility] [place] [address] [id number] [address] [place] [phone] Mar, Chronic pain syndrome G89.4 [facility] [place] [address] [id number] [address] [place] [phone] Feb, [facility] [place] [address] [id number] [address] [place] [phone] Feb, [facility] [place] [address] [id number] [address] [place] [phone] Dec, [facility] [place] [address] [id number] [address] [place] [id number] Dec, [facility] [place] [address] [id number] [address] [place] [phone] Nov, Chronic pain syndrome G89.4 [facility] [place] [address] [id number] [address] [place] [phone] Nov, [facility] [place] [address] [id number] [address] [place] [phone] Oct, [facility] [place] [address] [id number] [address] [place] [phone] Oct, [facility] [place] [address] [id number] [address] [place] [phone] Oct, [facility] [place] [address] [facility] [id number] [address] [place] [phone] Oct, Allergic reaction to drug, s ubsequent encounter T78.40XD [facility] [place] [address] [id number] [address] [place] [phone] September, [facility] [place] [address] [id number] [address] [place] [phone] September, [facility] [place] [address] [facility] [id number] [address] [place] [id number] September, Low back pain radiating to l ower extremity M54.5 [facility] [place] [address] [id number] [address] [place] [phone] Aug, [facility] [place] [address] [id number] [address] [place] [phone] Aug, [facility] [place] [address] [facility] [id number] [address] [place] [phone] Aug, [facility] [place] [address] [facility] [id number] [address] [place] [phone] Aug, [facility] [place] [address] [id number] [address] [place] [phone] Aug, Incisional infection, initia l encounter T81.4XXA [facility] [place] [address] [id number] Aug, [facility] [place] [address] [id number] Jul, [facility] [place] [address] [id number] Jul, [facility] [place] [address] [address] Jul, Chronic pain syndrome G89.4 [facility] [place] [address] [address] Jul, Pre-op evaluation Z01.818 [facility] [place] [address] [id number] Jul, [facility] [place] [address] [address] Jun, Anxiety disorder, unspecifie d F41.9 and Chronic pain syndrome G89.4 [facility] [place] [address] [id number] [address] [place] [phone] Jun, [facility] [place] [address] [id number] Jun, [facility] [place] [address] [id number] [address] [place] [phone] Jun, [facility] [place] [address] [id number] Jun, [facility] [place] [address] [id number] 08 Jun, 2017 Lumbar neuritis M54.16 [facility] [place] [id number] [place] [phone] May, [facility] [place] [address] [id number] [address] [place] [phone] May, [facility] [place] [address] [id number] [address] [place] [phone] May, Encounter for therapeutic dr heather level monitoring Z51.81 ; Encounter for immunization Z23 and Chronic pain syndrome G89.4 [facility] [place] [address] [id number] [address] [place] [phone] May, Lumbar neuritis M54.16 [facility] [place] [address] [id number] [address] [place] [phone] May, [facility] [place] [address] [id number] [address] [place] [phone] Apr, Lumbar neuritis M54.16 [facility] [place] [address] [id number] [address] [place] [phone] Apr, [facility] [place] [address] [id number] [address] [place] [phone] Mar, Lumbar neuritis M54.16 [facility] [place] [address] [id number] [address] [place] [phone] Mar, [facility] [place] [address] [id number] [address] [place] [phone] Mar, [facility] [place] [address] [id number] [address] [place] [id number] Feb, Lumbar neuritis M54.16 [facility] [place] [address] [id number] [address] [place] [phone] Feb, Lumbar neuritis M54.16 [facility] [place] [address] [id number] [address] [place] [phone] Feb, [facility] [place] [address] [id number] [address] [place] [phone] Feb, [facility] [place] [address] [id number] [address] [place] [phone] Jan, [facility] [place] [address] [id number] [address] [place] [phone] 22 Jan, 2017 Peroneal tendonitis of left lower extremity M76.72 [facility] [place] [address] [id number] [address] [place] [phone] 20 Jan, 2017 Lumbar neuritis M54.16 [facility] [place] [address] [id number] [address] [place] [phone] 12 Jan, 2017 [facility] [place] [address] [id number] [address] [place] [phone] 2016 Lumbar neuritis M54.16 [facility] [place] [address] [id number] [address] [place] [phone] Dec, [facility] [place] [address] [id number] [address] [place] [id number] Dec, Pain in right knee M25.561 ; Lumbar neuritis M54.16 and Cervical neuritis M54.12 [facility] [place] [address] [id number] [address] [place] [phone] Dec, [facility] [place] [address] [id number] [address] [place] [phone] Dec, [facility] [place] [address] [id number] [address] [place] [phone] Nov, Lumbar neuritis M54.16 [facility] [place] [address] [id number] [address] [place] [phone] Nov, Bilateral primary osteoarthr itis of knee M17.0 [facility] [place] [address] [id number] [address] [place] [phone] Nov, [facility] [place] [address] [id number] [address] [place] [phone] Nov, Bronchitis J40 and Plantar f asciitis M72.2 [facility] [place] [address] [id number] [address] [place] [id number] Nov, [facility] [place] [address] [id number] [address] [place] [phone] 30 Oct, 2016 Lumbar neuritis M54.16 [facility] [place] [address] [id number] [address] [place] [id number] 30 Oct, 2016 Lumbar neuritis M54.16 [facility] [place] [address] [id number] [address] [place] [phone] Oct, Lumbar neuritis M54.16 [facility] [place] [address] [id number] [address] [place] [id number] 26 Oct, 2016 Plantar fasciitis M72.2 and Pain in right knee M25.561 [facility] [place] [address] [id number] [address] [place] [id number] 16 Oct, 2016 Lumbar neuritis M54.16 ; Cer vical neuritis M54.12 ; Other specified abdominal hernia without obstruction or gangrene K45.8 ; Heel spur, left M77.32 ; Plantar fasciitis M72.2 and Pain in right knee M25.561 [facility] [place] [address] [id number] [address] [place] [phone] 13 Oct, 2016 [facility] [place] [address] [id number] [address] [place] [phone] 14 Aug, 2014 [facility] [place] [address] [id number] [address] [place] [phone] Aug, [facility] [place] [address] [id number] [address] [place] [phone] Apr, [facility] [place] [address] [id number] [address] [place] [phone] Apr, [facility] [place] [address] [id number] [address] [place] [phone] Mar, [facility] [place] [address] [id number] [address] [place] [phone] Mar, [facility] [address] [id number] [address] [place] [address], [place] [address] 10 Feb, 2013 [facility] [address] [id number] [address] [place] [address], [place] [address] Feb, 2013 [facility] [address] [id number] [address] [place] [address], [place] [address] Feb, 2013 [facility] [address] [id number] [address] [place] [address], [place] [address] Feb, 2013 [facility] [address] [id number] [address] [place] [address], [place] [address] Feb, 2013 [facility] [address] [id number] [address] [place] [address], [place] [address] Feb, 2013 [facility] [address] [id number] [address] [place] [address], [place] [address] Feb, 2013 [facility] [address] [id number] [address] [place] [address], [place] [address] Feb, 2013 [facility] [address] [id number] [address] [place] [address], [place] [address] 30 Sep, 2013 [facility] [address] [id number] [address] [place] [address], [place] [address] 30 Sep, 2013 [facility] [address] [id number] [address] [place] [address], [place] [address] 30 Sep, 2013 [facility] [address] [id number] [address] [place] [address], [place] [address] 30 Sep, 2013 [facility] [address] [id number] [address] [place] [address], [place] [address] 30 Sep, 2013 [facility] [address] [id number] [address] [place] [address], [place] [address] 30 Sep, 2013 [facility] [address] [id number] [address] [place] [address], [place] [address] 26 Sep, 2013 [facility] [address] [id number] [address] [place] [address], [place] [address] 26 Sep, 2013 [facility] [address] [id number] [facility] [place] [address] 22 Sep, 2013 [facility] [address] [id number] [address] [place] [address], [place] [id number] 22 Sep, 2013 [facility] [address] [id number] [address] [place] [address], [place] [address] 16 Sep, 2013 [facility] [address] [id number] [address] [place] [address], [place] [address] 16 Sep, 2013 [facility] [address] [id number] [address] [place] [address], [place] [address] 16 Sep, 2013 [facility] [address] [id number] [address] [place] [address], [place] [address] 16 Sep, 2013 [facility] [address] [id number] [address] [place] [address], [place] [address] 12 Sep, 2013 [facility] [address] [id number] [address] [place] [address], [place] [address] 12 Sep, 2013 [facility] [address] [id number] [address] [place] [address], [place] [address] 12 Sep, 2013 [facility] [address] [id number] [address] [place] [address], [place] [address] 12 Sep, 2013 [facility] [address] [id number] [address] [place] [address], [place] [address] 09 Sep, 2013 [facility] [address] [id number] [address] [place] [address], [place] [address] 09 Sep, 2013 [facility] [address] [id number] [address] [place] [address], [place] [address] 09 Sep, 2013 [facility] [address] [id number] [address] [place] [address], [place] [address] 09 Sep, 2013 [facility] [address] [id number] [address] [place] [address], [place] [address] 05 Sep, 2013 [facility] [address] [id number] [address] [place] [address], [place] [address] Jan, [facility] [address] [id number] [facility] [place] [address] Dec, [facility] [address] [id number] [address] [place] [address], [place] [id number] Dec, [facility] [address] [id number] [address] [place] [address], [place] [address] Dec, [facility] [address] [id number] [address] [place] [address], [place] [address] Dec, [facility] [address] [id number] [address] [place] [address], [place] [address] Dec, [facility] [address] [id number] [address] [place] [address], [place] [address] Dec, [facility] [address] [id number] [address] [place] [address], [place] [address] Dec, [facility] [address] [id number] [address] [place] [address], [place] [address] Dec, [facility] [address] [id number] [address] [place] [address], [place] [address] Dec, [facility] [address] [id number] [address] [place] [address], [place] [address] Dec, [facility] [address] [id number] [address] [place] [address], [place] [address] Dec, [facility] [address] [id number] [address] [place] [address], [place] [address] Dec, [facility] [address] [id number] [address] [place] [address], [place] [address] Dec, [facility] [address] [id number] [address] [place] [address], [place] [address] Dec, [facility] [address] [id number] [address] [place] [address], [place] [address] Dec, [facility] [address] [id number] [facility] [place] [address] Dec, [facility] [address] [id number] [facility] [place] [address] Dec, [facility] [address] [id number] [facility] [place] [address] Dec, [facility] [address] [id number] [facility] [place] [address] Dec, [facility] [address] [id number] [facility] [place] [address] Nov, [facility] [address] [id number] [address] [place] [address], [place] [address] Nov, [facility] [address] [id number] [address] [place] [address], [place] [address] Nov, [facility] [address] [id number] [address] [place] [address], [place] [address] Nov, [facility] [address] [id number] [address] [place] [address], [place] [address] Nov, [facility] [address] [id number] [address] [place] [address], [place] [address] Nov, [facility] [address] [id number] [address] [place] [address], [place] [address] Nov, [facility] [address] [id number] [address] [place] [address], [place] [address] Nov, [facility] [address] [id number] [address] [place] [address], [place] [address] Nov, [facility] [address] [id number] [address] [place] [address], [place] [address] Nov, [facility] [address] [id number] [address] [place] [address], [place] [address] Nov, [facility] [address] [id number] [address] [place] [address], [place] [address] Oct, [facility] [place] [address] [facility] [id number] [address] [place] [id number] Oct, [facility] [place] [address] [facility] [id number] [address] [place] [id number] Oct, [facility] [place] [address] [facility] [id number] [address] [place] [id number] Apr, IMMUNIZATIONS Vaccine Route Administration Date Status [...]
--- OUTSIDE RECORDS SUMMARY | 2019-11-23 06:18 | XMS REPORT ---
Author Author Pal Lopez Organization [facility] Address [address] [place] [address] Care Team Providers Care Leather Drier Name Role Phone JANE Lopez Unavailable PROBLEMS Type Condition ICD9-CM Code [id number] Code Onset Dates Condition S tatus SNOMED Code Problem Lumbago with sciatica, right side M54.41 Active [id number] Problem Other chronic pain G89.29 Active 8 1002681 Problem Bilateral primary osteoarthritis of knee M17.0 Active 216617255 Problem Chronic pain syndrome G89.4 Active 834101557 Problem Anxiety disorder, unspecified F41.9 Active 677728858 Problem Lumbago with sciatica, left side M54.42 Active [id number] ALLERGIES No Information ENCOUNTERS Encounter Location Date Diagnosis [facility] [address] [id number] [address] [place] [id number] Dec, Chronic pain syndrome G89.4 [facility] [address] [address] Dec, Chronic pain syndrome G89.4 and Anxiety disorder, unspecified F41.9 [facility] [address] [id number] [address] [place] [id number] Nov, [facility] [address] [id number] [address] [place] [id number] Oct, [facility] [address] [address] Oct, [facility] [address] [id number] [address] [place] [id number] Oct, Acute bronchitis, unspecifie d organism J20.9 and Nasal congestion R09.81 [facility] [address] [id number] [address] [place] [id number] September, [facility] [address] [id number] [address] [place] [id number] Aug, Lumbago with sciatica, left side M54.42 ; Lumbago with sciatica, right side M54.41 and Other chronic pain G89.29 [facility] [address] [id number] [address] [place] [id number] Aug, [facility] [address] [id number] [address] [place] [phone] Jul, [facility] [address] [id number] [address] [place] [id number] Jun, [facility] [address] [id number] [address] [place] [id number] May, [facility] [address] [id number] [address] [place] [address] Apr, Pain in right knee M25.561 [facility] [address] [id number] [address] [place] [address] Apr, Pain in right knee M25.561 [facility] [address] [id number] [address] [place] [id number] Mar, Pain in right knee M25.561 [facility] [address] [id number] [address] [place] [phone] Mar, [facility] [address] [id number] [address] [place] [id number] Mar, Chronic pain syndrome G89.4 [facility] [address] [id number] [address] [place] [phone] Feb, [facility] [address] [id number] [address] [place] [id number] Feb, [facility] [address] [id number] [address] [place] [phone] Dec, [facility] [address] [id number] [address] [place] [id number] Dec, [facility] [address] [id number] [address] [place] [id number] Nov, Chronic pain syndrome G89.4 [facility] [address] [id number] [address] [place] [id number] Nov, [facility] [address] [id number] [address] [place] [phone] Oct, [facility] [address] [id number] [address] [place] [phone] Oct, [facility] [address] [id number] [address] [place] [phone] Oct, [facility] [address] [facility] [id number] [address] [place] [id number] Oct, Allergic reaction to drug, s ubsequent encounter T78.40XD [facility] [address] [id number] [address] [place] [id number] September, [facility] [address] [id number] [address] [place] [id number] September, [facility] [address] [facility] [id number] [address] [place] [id number] September, Low back pain radiating to l ower extremity M54.5 [facility] [address] [id number] [address] [place] [id number] Aug, [facility] [address] [id number] [address] [place] [id number] Aug, [facility] [address] [facility] [id number] [address] [place] [id number] Aug, [facility] [address] [facility] [id number] [address] [place] [address] Aug, [facility] [address] [id number] [address] [place] [address] Aug, Incisional infection, initia l encounter T81.4XXA [facility] [address] [address] Aug, [facility] [address] [address] Jul, [facility] [address] [id number] Jul, [facility] [address] [address] Jul, Chronic pain syndrome G89.4 [facility] [address] [address] Jul, Pre-op evaluation Z01.818 [facility] [address] [address] Jul, [facility] [address] [address] Jun, Anxiety disorder, unspecifie d F41.9 and Chronic pain syndrome G89.4 [facility] [id number] [place] [phone] Jun, [facility] [address] [address] Jun, [facility] [address] [id number] [address] [place] [phone] Jun, [facility] [address] [address] Jun, [facility] [address] [address] 08 Jun, 2017 Lumbar neuritis M54.16 [facility] [id number] [place] [address] May, [facility] [address] [id number] [address] [place] [id number] May, [facility] [address] [id number] [address] [place] [id number] May, Encounter for therapeutic dr heather level monitoring Z51.81 ; Encounter for immunization Z23 and Chronic pain syndrome G89.4 [facility] [address] [id number] [address] [place] [address] May, Lumbar neuritis M54.16 [facility] [address] [id number] [address] [place] [id number] May, [facility] [address] [id number] [address] [place] [id number] Apr, Lumbar neuritis M54.16 [facility] [address] [id number] [address] [place] [phone] Apr, [facility] [address] [id number] [address] [place] [id number] Mar, Lumbar neuritis M54.16 [facility] [address] [id number] [address] [place] [id number] Mar, [facility] [address] [id number] [address] [place] [id number] Mar, [facility] [address] [id number] [address] [place] [phone] Feb, Lumbar neuritis M54.16 [facility] [address] [id number] [address] [place] [address] Feb, Lumbar neuritis M54.16 [facility] [address] [id number] [address] [place] [id number] Feb, [facility] [address] [id number] [address] [place] [phone] Feb, [facility] [address] [id number] [address] [place] [id number] Jan, [facility] [address] [id number] [address] [place] [id number] 22 Jan, 2017 Peroneal tendonitis of left lower extremity M76.72 [facility] [address] [id number] [address] [place] [id number] 20 Jan, 2017 Lumbar neuritis M54.16 [facility] [address] [id number] [address] [place] [id number] 12 Jan, 2017 [facility] [address] [id number] [address] [place] [id number] 2016 Lumbar neuritis M54.16 [facility] [address] [id number] [address] [place] [id number] Dec, [facility] [address] [id number] [address] [place] [address] Dec, Pain in right knee M25.561 ; Lumbar neuritis M54.16 and Cervical neuritis M54.12 [facility] [address] [id number] [address] [place] [phone] Dec, [facility] [address] [id number] [address] [place] [phone] Dec, [facility] [address] [id number] [address] [place] [address] Nov, Lumbar neuritis M54.16 [facility] [address] [id number] [address] [place] [id number] Nov, Bilateral primary osteoarthr itis of knee M17.0 [facility] [address] [id number] [address] [place] [phone] Nov, [facility] [address] [id number] [address] [place] [phone] Nov, Bronchitis J40 and Plantar f asciitis M72.2 [facility] [address] [id number] [address] [place] [id number] Nov, [facility] [address] [id number] [address] [place] [id number] 30 Oct, 2016 Lumbar neuritis M54.16 [facility] [address] [id number] [address] [place] [id number] 30 Oct, 2016 Lumbar neuritis M54.16 [facility] [address] [id number] [address] [place] [id number] Oct, Lumbar neuritis M54.16 [facility] [address] [id number] [address] [place] [id number] 26 Oct, 2016 Plantar fasciitis M72.2 and Pain in right knee M25.561 [facility] [address] [id number] [address] [place] [id number] 16 Oct, 2016 Lumbar neuritis M54.16 ; Cer vical neuritis M54.12 ; Other specified abdominal hernia without obstruction or gangrene K45.8 ; Heel spur, left M77.32 ; Plantar fasciitis M72.2 and Pain in right knee M25.561 [facility] [address] [id number] [address] [place] [id number] 13 Oct, 2016 [facility] [address] [id number] [address] [place] [id number] 14 Aug, 2014 [facility] [address] [id number] [address] [place] [id number] Aug, [facility] [address] [id number] [address] [place] [id number] Apr, [facility] [address] [id number] [address] [place] [id number] Apr, [facility] [address] [id number] [address] [place] [id number] Mar, [facility] [address] [id number] [address] [place] [phone] Mar, [facility] [address] [id number] [address] [place] [address], [place] [address] 10 Feb, 2013 [facility] [address] [id number] [address] [place] [address], [place] [address] Feb, 2013 [facility] [address] [id number] [address] [place] [address], [place] [address] Feb, 2013 [facility] [address] [id number] [address] [place] [address], [place] [address] Feb, 2013 [facility] [address] [id number] [address] [place] [address], [place] [address] Feb, 2013 [facility] [address] [id number] [address] [place] [address], [place] [address] Feb, 2013 [facility] [address] [id number] [address] [place] [address], [place] [address] Feb, 2013 [facility] [address] [id number] [address] [place] [address], [place] [address] Feb, 2013 [facility] [address] [id number] [address] [place] [address], [place] [address] 30 Sep, 2013 [facility] [address] [id number] [address] [place] [address], [place] [address] 30 Sep, 2013 [facility] [address] [id number] [address] [place] [address], [place] [address] 30 Sep, 2013 [facility] [address] [id number] [address] [place] [address], [place] [address] 30 Sep, 2013 [facility] [address] [id number] [address] [place] [address], [place] [address] 30 Sep, 2013 [facility] [address] [id number] [address] [place] [address], [place] [address] 30 Sep, 2013 [facility] [address] [id number] [address] [place] [address], [place] [address] 26 Sep, 2013 [facility] [address] [id number] [address] [place] [address], [place] [address] 26 Sep, 2013 [facility] [address] [id number] [facility] [place] [address] 22 Sep, 2013 [facility] [address] [id number] [address] [place] [address], [place] [address] 22 Sep, 2013 [facility] [address] [id number] [address] [place] [address], [place] [address] 16 Sep, 2013 [facility] [address] [id number] [address] [place] [address], [place] [address] 16 Sep, 2013 [facility] [address] [id number] [address] [place] [address], [place] [address] 16 Sep, 2013 [facility] [address] [id number] [address] [place] [address], [place] [address] 16 Sep, 2013 [facility] [address] [id number] [address] [place] [address], [place] [address] 12 Sep, 2013 [facility] [address] [id number] [address] [place] [address], [place] [address] 12 Sep, 2013 [facility] [address] [id number] [address] [place] [address], [place] [address] 12 Sep, 2013 [facility] [address] [id number] [address] [place] [address], [place] [address] 12 Sep, 2013 [facility] [address] [id number] [address] [place] [address], [place] [address] 09 Sep, 2013 [facility] [address] [id number] [address] [place] [address], [place] [address] 09 Sep, 2013 [facility] [address] [id number] [address] [place] [address], [place] [address] 09 Sep, 2013 [facility] [address] [id number] [address] [place] [address], [place] [address] 09 Sep, 2013 [facility] [address] [id number] [address] [place] [address], [place] [address] 05 Sep, 2013 [facility] [address] [id number] [address] [place] [address], [place] [address] Jan, [facility] [address] [id number] [facility] [place] [address] Dec, [facility] [address] [id number] [address] [place] [address], [place] [address] Dec, [facility] [address] [id number] [address] [place] [address], [place] [address] Dec, [facility] [address] [id number] [address] [place] [address], [place] [address] Dec, [facility] [address] [id number] [address] [place] [address], [place] [address] Dec, [facility] [address] [id number] [address] [place] [address], [place] [address] Dec, [facility] [address] [id number] [address] [place] [address], [place] [address] Dec, [facility] [address] [id number] [address] [place] [address], [place] [address] Dec, [facility] [address] [id number] [address] [place] [address], [place] [address] Dec, [facility] [address] [id number] [address] [place] [address], [place] [address] Dec, [facility] [address] [id number] [address] [place] [address], [place] [address] Dec, [facility] [address] [id number] [address] [place] [address], [place] [address] Dec, [facility] [address] [id number] [address] [place] [address], [place] [address] Dec, [facility] [address] [id number] [address] [place] [address], [place] [address] Dec, [facility] [address] [id number] [address] [place] [address], [place] [address] Dec, [facility] [address] [id number] [facility] [place] [address] Dec, [facility] [address] [id number] [facility] [place] [address] Dec, [facility] [address] [id number] [facility] [place] [address] Dec, [facility] [address] [id number] [facility] [place] [address] Dec, [facility] [address] [id number] [facility] [place] [address] Nov, [facility] [address] [id number] [address] [place] [address], [place] [address] Nov, [facility] [address] [id number] [address] [place] [address], [place] [address] Nov, [facility] [address] [id number] [address] [place] [address], [place] [address] Nov, [facility] [address] [id number] [address] [place] [address], [place] [address] Nov, [facility] [address] [id number] [address] [place] [address], [place] [address] Nov, [facility] [address] [id number] [address] [place] [address], [place] [address] Nov, [facility] [address] [id number] [address] [place] [address], [place] [address] Nov, [facility] [address] [id number] [address] [place] [address], [place] [address] Nov, [facility] [address] [id number] [address] [place] [address], [place] [address] Nov, [facility] [address] [id number] [address] [place] [address], [place] [address] Nov, [facility] [address] [id number] [address] [place] [address], [place] [address] Oct, [facility] [address] [facility] [id number] [address] [place] [address] Oct, [facility] [address] [facility] [id number] [address] [place] [address] Oct, [facility] [address] [facility] [id number] [address] [place] [address] Apr, IMMUNIZATIONS No Known Immunizations SOCIAL HISTORY [...]
--- OUTSIDE RECORDS SUMMARY | 2019-11-23 06:18 | XMS REPORT ---
Author Author Pal Lopez Organization [facility] Address [address] [place] [address] Care Team Providers Care Label Tacker Name Role Phone JANE Lopez Unavailable PROBLEMS Type Condition ICD9-CM Code CPT06-ZO Code Onset Dates Condition S tatus SNOMED Code Problem Lumbago with sciatica, right side M54.41 Active 236996406450635 Problem Other chronic pain G89.29 Active 8 8003109 Problem Bilateral primary osteoarthritis of knee M17.0 Active 022708784 Problem Chronic pain syndrome G89.4 Active 966135575 Problem Anxiety disorder, unspecified F41.9 Active 228619271 Problem Lumbago with sciatica, left side M54.42 Active [id number] ALLERGIES No Information ENCOUNTERS Encounter Location Date Diagnosis [facility] [address] [id number] [address] [place] [id number] Dec, Chronic pain syndrome G89.4 [facility] [address] [address] Dec, Chronic pain syndrome G89.4 and Anxiety disorder, unspecified F41.9 [facility] [address] [id number] [address] [place] [phone] Nov, [facility] [address] [id number] [address] [place] [phone] Oct, [facility] [address] [address] Oct, [facility] [address] [id number] [address] [place] [address] Oct, Acute bronchitis, unspecifie d organism J20.9 and Nasal congestion R09.81 [facility] [address] [id number] [address] [place] [address] September, [facility] [address] [id number] [address] [place] [address] Aug, Lumbago with sciatica, left side M54.42 ; Lumbago with sciatica, right side M54.41 and Other chronic pain G89.29 [facility] [address] [id number] [address] [place] [address] Aug, [facility] [address] [id number] [address] [place] [id number] Jul, [facility] [address] [id number] [address] [place] [phone] Jun, [facility] [address] [id number] [address] [place] [address] May, [facility] [address] [id number] [address] [place] [address] Apr, Pain in right knee M25.561 [facility] [address] [id number] [address] [place] [address] Apr, Pain in right knee M25.561 [facility] [address] [id number] [address] [place] [address] Mar, Pain in right knee M25.561 [facility] [address] [id number] [address] [place] [address] Mar, [facility] [address] [id number] [address] [place] [phone] Mar, Chronic pain syndrome G89.4 [facility] [address] [id number] [address] [place] [id number] Feb, [facility] [address] [id number] [address] [place] [phone] Feb, [facility] [address] [id number] [address] [place] [phone] Dec, [facility] [address] [id number] [address] [place] [phone] Dec, [facility] [address] [id number] [address] [place] [phone] Nov, Chronic pain syndrome G89.4 [facility] [address] [id number] [address] [place] [phone] Nov, [facility] [address] [id number] [address] [place] [phone] Oct, [facility] [address] [id number] [address] [place] [phone] Oct, [facility] [address] [id number] [address] [place] [phone] Oct, [facility] [address] [facility] [id number] [address] [place] [address] Oct, Allergic reaction to drug, s ubsequent encounter T78.40XD [facility] [address] [id number] [address] [place] [phone] September, [facility] [address] [id number] [address] [place] [phone] September, [facility] [address] [facility] [id number] [address] [place] [phone] September, Low back pain radiating to l ower extremity M54.5 [facility] [address] [id number] [address] [place] [phone] Aug, [facility] [address] [id number] [address] [place] [phone] Aug, [facility] [address] [facility] [id number] [address] [place] [phone] Aug, [facility] [address] [facility] [id number] [address] [place] [address] Aug, [facility] [address] [id number] [address] [place] [phone] Aug, Incisional infection, initia l encounter T81.4XXA [facility] [address] [address] Aug, [facility] [address] [address] Jul, [facility] [address] [address] Jul, [facility] [address] [address] Jul, Chronic pain syndrome G89.4 [facility] [address] [address] Jul, Pre-op evaluation Z01.818 [facility] [address] [address] Jul, [facility] [address] [address] Jun, Anxiety disorder, unspecifie d F41.9 and Chronic pain syndrome G89.4 [facility] [address] [id number] [address] [place] [phone] Jun, [facility] [address] [address] Jun, [facility] [address] [id number] [address] [place] [address] Jun, [facility] [address] [address] Jun, [facility] [address] [address] 08 Jun, 2017 Lumbar neuritis M54.16 [facility] [address] [id number] [address] [place] [phone] May, [facility] [address] [id number] [address] [place] [address] May, [facility] [address] [id number] [address] [place] [phone] May, Encounter for therapeutic dr heather level monitoring Z51.81 ; Encounter for immunization Z23 and Chronic pain syndrome G89.4 [facility] [address] [id number] [address] [place] [address] May, Lumbar neuritis M54.16 [facility] [address] [id number] [address] [place] [phone] May, [facility] [address] [id number] [address] [place] [address] Apr, Lumbar neuritis M54.16 [facility] [address] [id number] [address] [place] [address] Apr, [facility] [address] [id number] [address] [place] [phone] Mar, Lumbar neuritis M54.16 [facility] [address] [id number] [address] [place] [phone] Mar, [facility] [address] [id number] [address] [place] [address] Mar, [facility] [address] [id number] [address] [place] [address] Feb, Lumbar neuritis M54.16 [facility] [address] [id number] [address] [place] [phone] Feb, Lumbar neuritis M54.16 [facility] [address] [id number] [address] [place] [phone] Feb, [facility] [address] [id number] [address] [place] [phone] Feb, [facility] [address] [id number] [address] [place] [phone] Jan, [facility] [address] [id number] [address] [place] [phone] 22 Jan, 2017 Peroneal tendonitis of left lower extremity M76.72 [facility] [address] [id number] [address] [place] [phone] 20 Jan, 2017 Lumbar neuritis M54.16 [facility] [address] [id number] [address] [place] [phone] 12 Jan, 2017 [facility] [address] [id number] [address] [place] [phone] 2016 Lumbar neuritis M54.16 [facility] [address] [id number] [address] [place] [phone] Dec, [facility] [address] [id number] [address] [place] [address] Dec, Pain in right knee M25.561 ; Lumbar neuritis M54.16 and Cervical neuritis M54.12 [facility] [address] [id number] [address] [place] [phone] Dec, [facility] [address] [id number] [address] [place] [phone] Dec, [facility] [address] [id number] [address] [place] [phone] Nov, Lumbar neuritis M54.16 [facility] [address] [id number] [address] [place] [phone] Nov, Bilateral primary osteoarthr itis of knee M17.0 [facility] [address] [id number] [address] [place] [phone] Nov, [facility] [address] [id number] [address] [place] [phone] Nov, Bronchitis J40 and Plantar f asciitis M72.2 [facility] [address] [id number] [address] [place] [phone] Nov, [facility] [address] [id number] [address] [place] [phone] 30 Oct, 2016 Lumbar neuritis M54.16 [facility] [address] [id number] [address] [place] [phone] 30 Oct, 2016 Lumbar neuritis M54.16 [facility] [address] [id number] [address] [place] [phone] Oct, Lumbar neuritis M54.16 [facility] [address] [id number] [address] [place] [phone] 26 Oct, 2016 Plantar fasciitis M72.2 and Pain in right knee M25.561 [facility] [address] [id number] [address] [place] [phone] 16 Oct, 2016 Lumbar neuritis M54.16 ; Cer vical neuritis M54.12 ; Other specified abdominal hernia without obstruction or gangrene K45.8 ; Heel spur, left M77.32 ; Plantar fasciitis M72.2 and Pain in right knee M25.561 [facility] [address] [id number] [address] [place] [phone] 13 Oct, 2016 [facility] [address] [id number] [address] [place] [phone] 14 Aug, 2014 [facility] [address] [id number] [address] [place] [phone] Aug, [facility] [address] [id number] [address] [place] [phone] Apr, [facility] [address] [id number] [address] [place] [phone] Apr, [facility] [address] [id number] [address] [place] [phone] Mar, [facility] [address] [id number] [address] [place] [phone] Mar, [facility] [address] [id number] [address] [place] [address], [place] [address] 10 Feb, 2013 [facility] [address] [id number] [address] [place] [address], [place] [address] Feb, 2013 [facility] [address] [id number] [address] [place] [address], [place] [address] Feb, 2013 [facility] [address] [id number] [address] [place] [address], [place] [address] Feb, 2013 [facility] [address] [id number] [address] [place] [address], [place] [address] Feb, 2013 [facility] [address] [id number] [address] [place] [address], [place] [address] Feb, 2013 [facility] [address] [id number] [address] [place] [address], [place] [address] Feb, 2013 [facility] [address] [id number] [address] [place] [address], [place] [address] Feb, 2013 [facility] [address] [id number] [address] [place] [address], [place] [address] 30 Sep, 2013 [facility] [address] [id number] [address] [place] [address], [place] [address] 30 Sep, 2013 [facility] [address] [id number] [address] [place] [address], [place] [address] 30 Sep, 2013 [facility] [address] [id number] [address] [place] [address], [place] [address] 30 Sep, 2013 [facility] [address] [id number] [address] [place] [address], [place] [address] 30 Sep, 2013 [facility] [address] [id number] [address] [place] [address], [place] [address] 30 Sep, 2013 [facility] [address] [id number] [address] [place] [address], [place] [address] 26 Sep, 2013 [facility] [address] [id number] [address] [place] [address], [place] [address] 26 Sep, 2013 [facility] [address] [id number] [facility] [place] [address] 22 Sep, 2013 [facility] [address] [id number] [address] [place] [address], [place] [address] 22 Sep, 2013 [facility] [address] [id number] [address] [place] [address], [place] [address] 16 Sep, 2013 [facility] [address] [id number] [address] [place] [address], [place] [address] 16 Sep, 2013 [facility] [address] [id number] [address] [place] [address], [place] [address] 16 Sep, 2013 [facility] [address] [id number] [address] [place] [address], [place] [address] 16 Sep, 2013 [facility] [address] [id number] [address] [place] [address], [place] [address] 12 Sep, 2013 [facility] [address] [id number] [address] [place] [address], [place] [address] 12 Sep, 2013 [facility] [address] [id number] [address] [place] [address], [place] [address] 12 Sep, 2013 [facility] [address] [id number] [address] [place] [address], [place] [address] 12 Sep, 2013 [facility] [address] [id number] [address] [place] [address], [place] [address] 09 Sep, 2013 [facility] [address] [id number] [address] [place] [address], [place] [address] 09 Sep, 2013 [facility] [address] [id number] [address] [place] [address], [place] [address] 09 Sep, 2013 [facility] [address] [id number] [address] [place] [address], [place] [address] 09 Sep, 2013 [facility] [address] [id number] [address] [place] [address], [place] [address] 05 Sep, 2013 [facility] [address] [id number] [address] [place] [address], [place] [address] Jan, [facility] [address] [id number] [facility] [place] [address] Dec, [facility] [address] [id number] [address] [place] [address], [place] [address] Dec, [facility] [address] [id number] [address] [place] [address], [place] [address] Dec, [facility] [address] [id number] [address] [place] [address], [place] [address] Dec, [facility] [address] [id number] [address] [place] [address], [place] [address] Dec, [facility] [address] [id number] [address] [place] [address], [place] [address] Dec, [facility] [address] [id number] [address] [place] [address], [place] [address] Dec, [facility] [address] [id number] [address] [place] [address], [place] [address] Dec, [facility] [address] [id number] [address] [place] [address], [place] [address] Dec, [facility] [address] [id number] [address] [place] [address], [place] [address] Dec, [facility] [address] [id number] [address] [place] [address], [place] [address] Dec, [facility] [address] [id number] [address] [place] [address], [place] [address] Dec, [facility] [address] [id number] [address] [place] [address], [place] [address] Dec, [facility] [address] [id number] [address] [place] [address], [place] [address] Dec, [facility] [address] [id number] [address] [place] [address], [place] [address] Dec, [facility] [address] [id number] [facility] [place] [address] Dec, [facility] [address] [id number] [facility] [place] [address] Dec, [facility] [address] [id number] [facility] [place] [address] Dec, [facility] [address] [id number] [facility] [place] [address] Dec, [facility] [address] [id number] [facility] [place] [address] Nov, [facility] [address] [id number] [address] [place] [address], [place] [address] Nov, [facility] [address] [id number] [address] [place] [address], [place] [address] Nov, [facility] [address] [id number] [address] [place] [address], [place] [address] Nov, [facility] [address] [id number] [address] [place] [address], [place] [address] Nov, [facility] [address] [id number] [address] [place] [address], [place] [address] Nov, [facility] [address] [id number] [address] [place] [address], [place] [address] Nov, [facility] [address] [id number] [address] [place] [address], [place] [address] Nov, [facility] [address] [id number] [address] [place] [address], [place] [address] Nov, [facility] [address] [id number] [address] [place] [address], [place] [address] Nov, [facility] [address] [id number] [address] [place] [address], [place] [address] Nov, [facility] [address] [id number] [address] [place] [address], [place] [address] Oct, [facility] [address] [facility] [id number] [address] [place] [address] Oct, [facility] [address] [facility] [id number] [address] [place] [address] Oct, [facility] [address] [facility] [id number] [address] [place] [address] Apr, IMMUNIZATIONS No Known Immunizations SOCIAL HISTORY Never Assessed REASON FOR VISIT PLAN OF CARE VITAL SIGNS Height 70 in 2013-12-21 Weight 175 lbs 2013-12-21 Temperature 96.5 degrees Fahrenheit 2013-12-21 Heart Rate 76 bpm 2013-12-21 Respiratory Rate 18 2013-12-21 Blood pressure systolic 132 mmHg 2013-12-21 Blood pressure diastolic 80 mmHg 2013-12-21 MEDICATIONS Unknown Medications RESULTS No Results PROCEDURES [...]
--- OUTSIDE RECORDS SUMMARY | 2019-11-23 06:18 | XMS REPORT ---
Author Author Pal Lopez Organization [facility] Address [address] [place] [address] Care Team Providers Care Informatics Pharmacist Name Role Phone JANE Lopez Unavailable PROBLEMS Type Condition ICD9-CM Code EAP63-MO Code Onset Dates Condition S tatus SNOMED Code Problem Lumbago with sciatica, right side M54.41 Active [id number] Problem Other chronic pain G89.29 Active 8 2508543 Problem Bilateral primary osteoarthritis of knee M17.0 Active 588519922 Problem Chronic pain syndrome G89.4 Active 517695584 Problem Anxiety disorder, unspecified F41.9 Active 252387466 Problem Lumbago with sciatica, left side M54.42 Active [id number] ALLERGIES No Information ENCOUNTERS Encounter Location Date Diagnosis [facility] [address] [id number] [address] [place] [address] Dec, Chronic pain syndrome G89.4 [facility] [address] [address] Dec, Chronic pain syndrome G89.4 and Anxiety disorder, unspecified F41.9 [facility] [address] [id number] [address] [place] [address] Nov, [facility] [address] [id number] [address] [place] [phone] Oct, [facility] [address] [address] Oct, [facility] [address] [id number] [address] [place] [address] Oct, Acute bronchitis, unspecifie d organism J20.9 and Nasal congestion R09.81 [facility] [address] [id number] [address] [place] [address] September, [facility] [address] [id number] [address] [place] [address] Aug, Lumbago with sciatica, left side M54.42 ; Lumbago with sciatica, right side M54.41 and Other chronic pain G89.29 [facility] [address] [id number] [address] [place] [address] Aug, [facility] [address] [id number] [address] [place] [phone] Jul, [facility] [address] [id number] [address] [place] [phone] Jun, [facility] [address] [id number] [address] [place] [address] May, [facility] [address] [id number] [address] [place] [address] Apr, Pain in right knee M25.561 [facility] [address] [id number] [address] [place] [address] Apr, Pain in right knee M25.561 [facility] [address] [id number] [address] [place] [address] Mar, Pain in right knee M25.561 [facility] [address] [id number] [address] [place] [address] Mar, [facility] [address] [id number] [address] [place] [address] Mar, Chronic pain syndrome G89.4 [facility] [address] [id number] [address] [place] [phone] Feb, [facility] [address] [id number] [address] [place] [id number] Feb, [facility] [address] [id number] [address] [place] [phone] Dec, [facility] [address] [id number] [address] [place] [address] Dec, [facility] [address] [id number] [address] [place] [address] Nov, Chronic pain syndrome G89.4 [facility] [address] [id number] [address] [place] [phone] Nov, [facility] [address] [id number] [address] [place] [address] Oct, [facility] [address] [id number] [address] [place] [phone] Oct, [facility] [address] [id number] [address] [place] [phone] Oct, [facility] [address] [facility] [id number] [address] [place] [address] Oct, Allergic reaction to drug, s ubsequent encounter T78.40XD [facility] [address] [id number] [address] [place] [address] September, [facility] [address] [id number] [address] [place] [address] September, [facility] [address] [facility] [id number] [address] [place] [address] September, Low back pain radiating to l ower extremity M54.5 [facility] [address] [id number] [address] [place] [address] Aug, [facility] [address] [id number] [address] [place] [address] Aug, [facility] [address] [facility] [id number] [address] [place] [address] Aug, [facility] [address] [facility] [id number] [address] [place] [address] Aug, [facility] [address] [id number] [address] [place] [address] Aug, Incisional infection, initia l encounter T81.4XXA [facility] [address] [address] Aug, [facility] [address] [address] Jul, [facility] [address] [address] Jul, [facility] [address] [address] Jul, Chronic pain syndrome G89.4 [facility] [address] [address] Jul, Pre-op evaluation Z01.818 [facility] [address] [address] Jul, [facility] [address] [address] Jun, Anxiety disorder, unspecifie d F41.9 and Chronic pain syndrome G89.4 [facility] [address] [id number] [address] [place] [address] Jun, [facility] [address] [address] Jun, [facility] [address] [id number] [address] [place] [phone] Jun, [facility] [address] [address] Jun, [facility] [address] [address] 08 Jun, 2017 Lumbar neuritis M54.16 [facility] [address] [id number] [address] [place] [address] May, [facility] [address] [id number] [address] [place] [address] May, [facility] [address] [id number] [address] [place] [address] May, Encounter for therapeutic dr heather level monitoring Z51.81 ; Encounter for immunization Z23 and Chronic pain syndrome G89.4 [facility] [address] [id number] [address] [place] [address] May, Lumbar neuritis M54.16 [facility] [address] [id number] [address] [place] [phone] May, [facility] [address] [id number] [address] [place] [address] Apr, Lumbar neuritis M54.16 [facility] [address] [id number] [address] [place] [address] Apr, [facility] [address] [id number] [address] [place] [address] Mar, Lumbar neuritis M54.16 [facility] [address] [id number] [address] [place] [address] Mar, [facility] [address] [id number] [address] [place] [phone] Mar, [facility] [address] [id number] [address] [place] [address] Feb, Lumbar neuritis M54.16 [facility] [address] [id number] [address] [place] [address] Feb, Lumbar neuritis M54.16 [facility] [address] [id number] [address] [place] [address] Feb, [facility] [address] [id number] [address] [place] [phone] Feb, [facility] [address] [id number] [address] [place] [address] Jan, [facility] [address] [id number] [address] [place] [address] 22 Jan, 2017 Peroneal tendonitis of left lower extremity M76.72 [facility] [address] [id number] [address] [place] [address] 20 Jan, 2017 Lumbar neuritis M54.16 [facility] [address] [id number] [address] [place] [address] 12 Jan, 2017 [facility] [address] [id number] [address] [place] [address] 2016 Lumbar neuritis M54.16 [facility] [address] [id number] [address] [place] [address] Dec, [facility] [address] [id number] [address] [place] [address] Dec, Pain in right knee M25.561 ; Lumbar neuritis M54.16 and Cervical neuritis M54.12 [facility] [address] [id number] [address] [place] [phone] Dec, [facility] [address] [id number] [address] [place] [address] Dec, [facility] [address] [id number] [address] [place] [address] Nov, Lumbar neuritis M54.16 [facility] [address] [id number] [address] [place] [address] Nov, Bilateral primary osteoarthr itis of knee M17.0 [facility] [address] [id number] [address] [place] [address] Nov, [facility] [address] [id number] [address] [place] [address] Nov, Bronchitis J40 and Plantar f asciitis M72.2 [facility] [address] [id number] [address] [place] [phone] Nov, [facility] [address] [id number] [address] [place] [address] 30 Oct, 2016 Lumbar neuritis M54.16 [facility] [address] [id number] [address] [place] [address] 30 Oct, 2016 Lumbar neuritis M54.16 [facility] [address] [id number] [address] [place] [address] Oct, Lumbar neuritis M54.16 [facility] [address] [id number] [address] [place] [phone] 26 Oct, 2016 Plantar fasciitis M72.2 and Pain in right knee M25.561 [facility] [address] [id number] [address] [place] [address] 16 Oct, 2016 Lumbar neuritis M54.16 ; Cer vical neuritis M54.12 ; Other specified abdominal hernia without obstruction or gangrene K45.8 ; Heel spur, left M77.32 ; Plantar fasciitis M72.2 and Pain in right knee M25.561 [facility] [address] [id number] [address] [place] [id number] 13 Oct, 2016 [facility] [address] [id number] [address] [place] [id number] 14 Aug, 2014 [facility] [address] [id number] [address] [place] [phone] Aug, [facility] [address] [id number] [address] [place] [phone] Apr, [facility] [address] [id number] [address] [place] [phone] Apr, [facility] [address] [id number] [address] [place] [phone] Mar, [facility] [address] [id number] [address] [place] [phone] Mar, [facility] [address] [id number] [address] [place] [address], [place] [address] 10 Feb, 2013 [facility] [address] [id number] [address] [place] [address], [place] [address] Feb, 2013 [facility] [address] [id number] [address] [place] [address], [place] [address] Feb, 2013 [facility] [address] [id number] [address] [place] [address], [place] [address] Feb, 2013 [facility] [address] [id number] [address] [place] [address], [place] [address] Feb, 2013 [facility] [address] [id number] [address] [place] [address], [place] [address] Feb, 2013 [facility] [address] [id number] [address] [place] [address], [place] [address] Feb, 2013 [facility] [address] [id number] [address] [place] [address], [place] [address] Feb, 2013 [facility] [address] [id number] [address] [place] [address], [place] [address] 30 Sep, 2013 [facility] [address] [id number] [address] [place] [address], [place] [address] 30 Sep, 2013 [facility] [address] [id number] [address] [place] [address], [place] [address] 30 Sep, 2013 [facility] [address] [id number] [address] [place] [address], [place] [address] 30 Sep, 2013 [facility] [address] [id number] [address] [place] [address], [place] [address] 30 Sep, 2013 [facility] [address] [id number] [address] [place] [address], [place] [address] 30 Sep, 2013 [facility] [address] [id number] [address] [place] [address], [place] [address] 26 Sep, 2013 [facility] [address] [id number] [address] [place] [address], [place] [address] 26 Sep, 2013 [facility] [address] [id number] [facility] [address] 22 Sep, 2013 [facility] [address] [id number] [address] [place] [address], [place] [address] 22 Sep, 2013 [facility] [address] [id number] [address] [place] [address], [place] [address] 16 Sep, 2013 [facility] [address] [id number] [address] [place] [address], [place] [address] 16 Sep, 2013 [facility] [address] [id number] [address] [place] [address], [place] [address] 16 Sep, 2013 [facility] [address] [id number] [address] [place] [address], [place] [address] 16 Sep, 2013 [facility] [address] [id number] [address] [place] [address], [place] [address] 12 Sep, 2013 [facility] [address] [id number] [address] [place] [address], [place] [address] 12 Sep, 2013 [facility] [address] [id number] [address] [place] [address], [place] [address] 12 Sep, 2013 [facility] [address] [id number] [address] [place] [address], [place] [address] 12 Sep, 2013 [facility] [address] [id number] [address] [place] [address], [place] [address] 09 Sep, 2013 [facility] [address] [id number] [address] [place] [address], [place] [address] 09 Sep, 2013 [facility] [address] [id number] [address] [place] [address], [place] [address] 09 Sep, 2013 [facility] [address] [id number] [address] [place] [address], [place] [address] 09 Sep, 2013 [facility] [address] [id number] [address] [place] [address], [place] [address] 05 Sep, 2013 [facility] [address] [id number] [address] [place] [address], [place] [address] Jan, [facility] [address] [id number] [facility] [address] Dec, [facility] [address] [id number] [address] [place] [address], [place] [address] Dec, [facility] [address] [id number] [address] [place] [address], [place] [address] Dec, [facility] [address] [id number] [address] [place] [address], [place] [address] Dec, [facility] [address] [id number] [address] [place] [address], [place] [address] Dec, [facility] [address] [id number] [address] [place] [address], [place] [address] Dec, [facility] [address] [id number] [address] [place] [address], [place] [address] Dec, [facility] [address] [id number] [address] [place] [address], [place] [address] Dec, [facility] [address] [id number] [address] [place] [address], [place] [address] Dec, [facility] [address] [id number] [address] [place] [address], [place] [address] Dec, [facility] [address] [id number] [address] [place] [address], [place] [address] Dec, [facility] [address] [id number] [address] [place] [address], [place] [address] Dec, [facility] [address] [id number] [address] [place] [address], [place] [address] Dec, [facility] [address] [id number] [address] [place] [address], [place] [address] Dec, [facility] [address] [id number] [address] [place] [address], [place] [address] Dec, [facility] [address] [id number] [facility] [address] Dec, [facility] [address] [id number] [facility] [address] Dec, [facility] [address] [id number] [facility] [address] Dec, [facility] [address] [id number] [facility] [address] Dec, [facility] [address] [id number] [facility] [address] Nov, [facility] [address] [id number] [address] [place] [address], [place] [address] Nov, [facility] [address] [id number] [address] [place] [address], [place] [address] Nov, [facility] [address] [id number] [address] [place] [address], [place] [address] Nov, [facility] [address] [id number] [address] [place] [address], [place] [address] Nov, [facility] [address] [id number] [address] [place] [address], [place] [address] Nov, [facility] [address] [id number] [address] [place] [address], [place] [address] Nov, [facility] [address] [id number] [address] [place] [address], [place] [address] Nov, [facility] [address] [id number] [address] [place] [address], [place] [address] Nov, [facility] [address] [id number] [address] [place] [address], [place] [address] Nov, [facility] [address] [id number] [address] [place] [address], [place] [address] Nov, [facility] [address] [id number] [address] [place] [address], [place] [address] Oct, [facility] [address] [facility] [id number] [address] [place] [address] Oct, [facility] [address] [facility] [id number] [address] [place] [address] Oct, [facility] [address] [facility] [id number] [address] [place] [address] Apr, IMMUNIZATIONS No Known Immunizations SOCIAL HISTORY Never Assessed REASON FOR VISIT PLAN OF CARE VITAL SIGNS Height 70 in 2014-02-14 Weight 175.6 lbs 2014-02-14 Temperature 98.2 degrees Fahrenheit 2014-02-14 Heart Rate 92 bpm 2014-02-14 Respiratory Rate 24 2014-02-14 Blood pressure systolic 194 mmHg 2014-02-14 Blood pressure diastolic 110 mmHg 2014-02-14 MEDICATIONS Unknown Medications RESULTS No Results PROCEDURES [...]
--- OUTSIDE RECORDS SUMMARY | 2019-11-23 06:19 | XMS REPORT ---
Author Author Pal Lopez Organization [facility] Address [address] [place] [address] Care Team Providers Care Garnishment Specialist Name Role Phone JANE Lopez Unavailable PROBLEMS Type Condition ICD9-CM Code LLP34-CN Code Onset Dates Condition S tatus SNOMED Code Problem Lumbago with sciatica, right side M54.41 Active [id number] Problem Other chronic pain G89.29 Active 8 5445290 Problem Bilateral primary osteoarthritis of knee M17.0 Active 307079754 Problem Chronic pain syndrome G89.4 Active 176946397 Problem Anxiety disorder, unspecified F41.9 Active 627174231 Problem Lumbago with sciatica, left side M54.42 Active [id number] ALLERGIES No Information ENCOUNTERS Encounter Location Date Diagnosis [facility] [address] [id number] [address] [place] [id number] Dec, Chronic pain syndrome G89.4 [facility] [address] [address] Dec, Chronic pain syndrome G89.4 and Anxiety disorder, unspecified F41.9 [facility] [address] [id number] [address] [place] [address] Nov, [facility] [address] [id number] [place] [id number] Oct, [facility] [address] [address] Oct, [facility] [address] [id number] [address] [place] [address] Oct, Acute bronchitis, unspecifie d organism J20.9 and Nasal congestion R09.81 [facility] [address] [id number] [address] [place] [id number] September, [facility] [address] [id number] [address] [place] [id number] Aug, Lumbago with sciatica, left side M54.42 ; Lumbago with sciatica, right side M54.41 and Other chronic pain G89.29 [facility] [address] [id number] [address] [place] [id number] Aug, [facility] [address] [id number] [address] [place] [id number] Jul, [facility] [address] [id number] [address] [place] [id number] Jun, [facility] [address] [id number] [address] [place] [id number] May, [facility] [address] [id number] [address] [place] [address] Apr, Pain in right knee M25.561 [facility] [address] [id number] [address] [place] [id number] Apr, Pain in right knee M25.561 [facility] [address] [id number] [address] [place] [id number] Mar, Pain in right knee M25.561 [facility] [address] [id number] [address] [place] [phone] Mar, [facility] [address] [id number] [address] [place] [id number] Mar, Chronic pain syndrome G89.4 [facility] [address] [id number] [address] [place] [phone] Feb, [facility] [address] [id number] [address] [place] [id number] Feb, [facility] [address] [id number] [address] [place] [id number] Dec, [facility] [address] [id number] [address] [place] [id number] Dec, [facility] [address] [id number] [address] [place] [id number] Nov, Chronic pain syndrome G89.4 [facility] [address] [id number] [address] [place] [id number] Nov, [facility] [address] [id number] [address] [place] [id number] Oct, [facility] [address] [id number] [address] [place] [id number] Oct, [facility] [address] [id number] [address] [place] [id number] Oct, [facility] [address] [facility] [id number] [address] [place] [id number] Oct, Allergic reaction to drug, s ubsequent encounter T78.40XD [facility] [address] [id number] [address] [place] [id number] September, [facility] [address] [id number] [address] [place] [phone] September, [facility] [address] [facility] [id number] [address] [place] [phone] September, Low back pain radiating to l ower extremity M54.5 [facility] [address] [id number] [address] [place] [id number] Aug, [facility] [address] [id number] [address] [place] [id number] Aug, [facility] [address] [facility] [id number] [address] [place] [id number] Aug, [facility] [address] [facility] [id number] [address] [place] [phone] Aug, [facility] [id number] [place] [id number] Aug, Incisional infection, initia l encounter T81.4XXA [facility] [address] [address] Aug, [facility] [address] [address] Jul, [facility] [address] [address] Jul, [facility] [address] [address] Jul, Chronic pain syndrome G89.4 [facility] [address] [address] Jul, Pre-op evaluation Z01.818 [facility] [address] [address] Jul, [facility] [address] [address] Jun, Anxiety disorder, unspecifie d F41.9 and Chronic pain syndrome G89.4 [facility] [id number] [place] [address] Jun, [facility] [address] [address] Jun, [facility] [id number] [place] [address] Jun, [facility] [address] [address] Jun, [facility] [address] [phone] 08 Jun, 2017 Lumbar neuritis M54.16 [facility] [id number] [place] [phone] May, [facility] [address] [id number] [address] [place] [id number] May, [facility] [address] [id number] [address] [place] [address] May, Encounter for therapeutic dr heather level monitoring Z51.81 ; Encounter for immunization Z23 and Chronic pain syndrome G89.4 [facility] [address] [id number] [address] [place] [address] May, Lumbar neuritis M54.16 [facility] [address] [id number] [address] [place] [id number] May, [facility] [address] [id number] [address] [place] [phone] Apr, Lumbar neuritis M54.16 [facility] [address] [id number] [address] [place] [phone] Apr, [facility] [address] [id number] [address] [place] [id number] Mar, Lumbar neuritis M54.16 [facility] [address] [id number] [address] [place] [phone] Mar, [facility] [address] [id number] [address] [place] [id number] Mar, [facility] [address] [id number] [address] [place] [id number] Feb, Lumbar neuritis M54.16 [facility] [address] [id number] [address] [place] [id number] Feb, Lumbar neuritis M54.16 [facility] [address] [id number] [address] [place] [phone] Feb, [facility] [address] [id number] [address] [place] [id number] Feb, [facility] [address] [id number] [address] [place] [address] Jan, [facility] [address] [id number] [address] [place] [id number] 22 Jan, 2017 Peroneal tendonitis of left lower extremity M76.72 [facility] [address] [id number] [address] [place] [id number] 20 Jan, 2017 Lumbar neuritis M54.16 [facility] [address] [id number] [address] [place] [id number] 12 Jan, 2017 [facility] [address] [id number] [address] [place] [phone] 2016 Lumbar neuritis M54.16 [facility] [address] [id number] [address] [place] [id number] Dec, [facility] [address] [id number] [address] [place] [address] Dec, Pain in right knee M25.561 ; Lumbar neuritis M54.16 and Cervical neuritis M54.12 [facility] [address] [id number] [address] [place] [phone] Dec, [facility] [address] [id number] [address] [place] [id number] Dec, [facility] [address] [id number] [address] [place] [phone] Nov, Lumbar neuritis M54.16 [facility] [address] [id number] [address] [place] [phone] Nov, Bilateral primary osteoarthr itis of knee M17.0 [facility] [address] [id number] [address] [place] [phone] Nov, [facility] [address] [id number] [address] [place] [phone] Nov, Bronchitis J40 and Plantar f asciitis M72.2 [facility] [address] [id number] [address] [place] [id number] Nov, [facility] [address] [id number] [address] [place] [id number] 30 Oct, 2016 Lumbar neuritis M54.16 [facility] [address] [id number] [address] [place] [id number] 30 Oct, 2016 Lumbar neuritis M54.16 [facility] [address] [id number] [address] [place] [phone] Oct, Lumbar neuritis M54.16 [facility] [address] [id number] [address] [place] [id number] 26 Oct, 2016 Plantar fasciitis M72.2 and Pain in right knee M25.561 [facility] [address] [id number] [address] [place] [id number] 16 Oct, 2016 Lumbar neuritis M54.16 ; Cer vical neuritis M54.12 ; Other specified abdominal hernia without obstruction or gangrene K45.8 ; Heel spur, left M77.32 ; Plantar fasciitis M72.2 and Pain in right knee M25.561 [facility] [address] [id number] [address] [place] [id number] 13 Oct, 2016 [facility] [address] [id number] [address] [place] [phone] 14 Aug, 2014 [facility] [address] [id number] [address] [place] [phone] Aug, [facility] [address] [id number] [address] [place] [id number] Apr, [facility] [address] [id number] [address] [place] [phone] Apr, [facility] [address] [id number] [address] [place] [id number] Mar, [facility] [address] [id number] [address] [place] [phone] Mar, [facility] [address] [id number] [address] [place] [address], [place] [address] 10 Feb, 2013 [facility] [address] [id number] [address] [place] [address], [place] [address] Feb, 2013 [facility] [address] [id number] [address] [place] [address], [place] [address] Feb, 2013 [facility] [address] [id number] [address] [place] [address], [place] [address] Feb, 2013 [facility] [address] [id number] [address] [place] [address], [place] [address] Feb, 2013 [facility] [address] [id number] [address] [place] [address], [place] [address] Feb, 2013 [facility] [address] [id number] [address] [place] [address], [place] [address] Feb, 2013 [facility] [address] [id number] [address] [place] [address], [place] [address] Feb, 2013 [facility] [address] [id number] [address] [place] [address], [place] [address] 30 Sep, 2013 [facility] [address] [id number] [address] [place] [address], [place] [address] 30 Sep, 2013 [facility] [address] [id number] [address] [place] [address], [place] [address] 30 Sep, 2013 [facility] [address] [id number] [address] [place] [address], [place] [address] 30 Sep, 2013 [facility] [address] [id number] [address] [place] [address], [place] [address] 30 Sep, 2013 [facility] [address] [id number] [address] [place] [address], [place] [address] 30 Sep, 2013 [facility] [address] [id number] [address] [place] [address], [place] [address] 26 Sep, 2013 [facility] [address] [id number] [address] [place] [address], [place] [address] 26 Sep, 2013 [facility] [address] [id number] [facility] [place] [address] 22 Sep, 2013 [facility] [address] [id number] [address] [place] [address], [place] [address] 22 Sep, 2013 [facility] [address] [id number] [address] [place] [address], [place] [address] 16 Sep, 2013 [facility] [address] [id number] [address] [place] [address], [place] [address] 16 Sep, 2013 [facility] [address] [id number] [address] [place] [address], [place] [address] 16 Sep, 2013 [facility] [address] [id number] [address] [place] [address], [place] [address] 16 Sep, 2013 [facility] [address] [id number] [address] [place] [address], [place] [address] 12 Sep, 2013 [facility] [address] [id number] [address] [place] [address], [place] [address] 12 Sep, 2013 [facility] [address] [id number] [address] [place] [address], [place] [address] 12 Sep, 2013 [facility] [address] [id number] [address] [place] [address], [place] [address] 12 Sep, 2013 [facility] [address] [id number] [address] [place] [address], [place] [address] 09 Sep, 2013 [facility] [address] [id number] [address] [place] [address], [place] [address] 09 Sep, 2013 [facility] [address] [id number] [address] [place] [address], [place] [address] 09 Sep, 2013 [facility] [address] [id number] [address] [place] [address], [place] [address] 09 Sep, 2013 [facility] [address] [id number] [address] [place] [address], [place] [address] 05 Sep, 2013 [facility] [address] [id number] [address] [place] [address], [place] [address] Jan, [facility] [address] [id number] [facility] [place] [address] Dec, [facility] [address] [id number] [address] [place] [address], [place] [address] Dec, [facility] [address] [id number] [address] [place] [address], [place] [address] Dec, [facility] [address] [id number] [address] [place] [address], [place] [address] Dec, [facility] [address] [id number] [address] [place] [address], [place] [address] Dec, [facility] [address] [id number] [address] [place] [address], [place] [address] Dec, [facility] [address] [id number] [address] [place] [address], [place] [address] Dec, [facility] [address] [id number] [address] [place] [address], [place] [address] Dec, [facility] [address] [id number] [address] [place] [address], [place] [address] Dec, [facility] [address] [id number] [address] [place] [address], [place] [address] Dec, [facility] [address] [id number] [address] [place] [address], [place] [address] Dec, [facility] [address] [id number] [address] [place] [address], [place] [address] Dec, [facility] [address] [id number] [address] [place] [address], [place] [address] Dec, [facility] [address] [id number] [address] [place] [address], [place] [address] Dec, [facility] [address] [id number] [address] [place] [address], [place] [address] Dec, [facility] [address] [id number] [facility] [place] [address] Dec, [facility] [address] [id number] [facility] [place] [address] Dec, [facility] [address] [id number] [facility] [place] [address] Dec, [facility] [address] [id number] [facility] [place] [address] Dec, [facility] [address] [id number] [facility] [place] [address] Nov, [facility] [address] [id number] [address] [place] [address], [place] [address] Nov, [facility] [address] [id number] [address] [place] [address], [place] [address] Nov, [facility] [address] [id number] [address] [place] [address], [place] [address] Nov, [facility] [address] [id number] [address] [place] [address], [place] [address] Nov, [facility] [address] [id number] [address] [place] [address], [place] [address] Nov, [facility] [address] [id number] [address] [place] [address], [place] [address] Nov, [facility] [address] [id number] [address] [place] [address], [place] [address] Nov, [facility] [address] [id number] [address] [place] [address], [place] [address] Nov, [facility] [address] [id number] [address] [place] [address], [place] [address] Nov, [facility] [address] [id number] [address] [place] [address], [place] [address] Nov, [facility] [address] [id number] [address] [place] [address], [place] [address] Oct, [facility] [address] [facility] [id number] [address] [place] [address] Oct, [facility] [address] [facility] [id number] [address] [place] [id number] Oct, [facility] [address] [facility] [id number] [address] [place] [address] Apr, IMMUNIZATIONS No Known Immunizations SOCIAL HISTORY [...]
--- OUTSIDE RECORDS SUMMARY | 2019-11-23 06:19 | XMS REPORT ---
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 Name Role Phone JANE Lopez Unavailable PROBLEMS Type Condition ICD9-CM Code [id number] Code Onset Dates Condition S tatus SNOMED Code Problem Lumbago with sciatica, right side M54.41 Active 142923760154371 Problem Other chronic pain G89.29 Active 8 9791087 Problem Bilateral primary osteoarthritis of knee M17.0 Active 757966005 Problem Chronic pain syndrome G89.4 Active 031570353 Problem Anxiety disorder, unspecified F41.9 Active 907167521 Problem Lumbago with sciatica, left side M54.42 Active [id number] ALLERGIES No Information ENCOUNTERS Encounter Location Date Diagnosis [facility] [address] [id number] [address] [place] [id number] Dec, Chronic pain syndrome G89.4 [facility] [address] [address] Dec, Chronic pain syndrome G89.4 and Anxiety disorder, unspecified F41.9 [facility] [address] [id number] [address] [place] [address] Nov, [facility] [address] [id number] [address] [place] [address] Oct, [facility] [address] [address] Oct, [facility] [address] [id number] [address] [place] [id number] Oct, Acute bronchitis, unspecifie d organism J20.9 and Nasal congestion R09.81 [facility] [address] [id number] [address] [place] [address] September, [facility] [address] [id number] [address] [place] [address] Aug, Lumbago with sciatica, left side M54.42 ; Lumbago with sciatica, right side M54.41 and Other chronic pain G89.29 [facility] [address] [id number] [address] [place] [address] Aug, [facility] [address] [id number] [address] [place] [phone] Jul, [facility] [address] [id number] [address] [place] [address] Jun, [facility] [address] [id number] [address] [place] [address] May, [facility] [address] [id number] [address] [place] [address] Apr, Pain in right knee M25.561 [facility] [address] [id number] [address] [place] [address] Apr, Pain in right knee M25.561 [facility] [address] [id number] [address] [place] [address] Mar, Pain in right knee M25.561 [facility] [address] [id number] [address] [place] [phone] Mar, [facility] [address] [id number] [address] [place] [address] Mar, Chronic pain syndrome G89.4 [facility] [address] [id number] [address] [place] [id number] Feb, [facility] [address] [id number] [address] [place] [id number] Feb, [facility] [address] [id number] [address] [place] [address] Dec, [facility] [address] [id number] [address] [place] [address] Dec, [facility] [address] [id number] [address] [place] [id number] Nov, Chronic pain syndrome G89.4 [facility] [address] [id number] [address] [place] [address] Nov, [facility] [address] [id number] [address] [place] [address] Oct, [facility] [address] [id number] [address] [place] [id number] Oct, [facility] [address] [id number] [address] [place] [phone] Oct, [facility] [address] [facility] [id number] [address] [place] [address] Oct, Allergic reaction to drug, s ubsequent encounter T78.40XD [facility] [address] [id number] [address] [place] [address] September, [facility] [address] [id number] [address] [place] [id number] September, [facility] [address] [facility] [id number] [address] [place] [address] September, Low back pain radiating to l ower extremity M54.5 [facility] [address] [id number] [address] [place] [id number] Aug, [facility] [address] [id number] [address] [place] [address] Aug, [facility] [address] [facility] [id number] [address] [place] [phone] Aug, [facility] [address] [facility] [id number] [address] [place] [address] Aug, [facility] [address] [id number] [address] [place] [address] Aug, Incisional infection, initia l encounter T81.4XXA [facility] [address] [address] Aug, [facility] [address] [address] Jul, [facility] [address] [address] Jul, [facility] [address] [address] Jul, Chronic pain syndrome G89.4 [facility] [address] [address] Jul, Pre-op evaluation Z01.818 [facility] [address] [id number] Jul, [facility] [address] [address] Jun, Anxiety disorder, unspecifie d F41.9 and Chronic pain syndrome G89.4 [facility] [id number] [address] [place] [address] Jun, [facility] [address] [id number] Jun, [facility] [id number] [address] [place] [address] Jun, [facility] [address] [address] Jun, [facility] [address] [address] 08 Jun, 2017 Lumbar neuritis M54.16 [facility] [id number] [place] [address] May, [facility] [address] [id number] [address] [place] [address] May, [facility] [address] [id number] [address] [place] [phone] May, Encounter for therapeutic dr heather level monitoring Z51.81 ; Encounter for immunization Z23 and Chronic pain syndrome G89.4 [facility] [address] [id number] [address] [place] [address] May, Lumbar neuritis M54.16 [facility] [address] [id number] [address] [place] [address] May, [facility] [address] [id number] [address] [place] [address] Apr, Lumbar neuritis M54.16 [facility] [address] [id number] [address] [place] [phone] Apr, [facility] [address] [id number] [address] [place] [id number] Mar, Lumbar neuritis M54.16 [facility] [address] [id number] [address] [place] [address] Mar, [facility] [address] [id number] [address] [place] [address] Mar, [facility] [address] [id number] [address] [place] [id number] Feb, Lumbar neuritis M54.16 [facility] [address] [id number] [address] [place] [id number] Feb, Lumbar neuritis M54.16 [facility] [address] [id number] [address] [place] [address] Feb, [facility] [address] [id number] [address] [place] [id number] Feb, [facility] [address] [id number] [address] [place] [phone] Jan, [facility] [address] [id number] [address] [place] [id number] 22 Jan, 2017 Peroneal tendonitis of left lower extremity M76.72 [facility] [address] [id number] [address] [place] [id number] 20 Jan, 2017 Lumbar neuritis M54.16 [facility] [address] [id number] [address] [place] [id number] 12 Jan, 2017 [facility] [address] [id number] [address] [place] [phone] 2016 Lumbar neuritis M54.16 [facility] [address] [id number] [address] [place] [address] Dec, [facility] [address] [id number] [address] [place] [address] Dec, Pain in right knee M25.561 ; Lumbar neuritis M54.16 and Cervical neuritis M54.12 [facility] [address] [id number] [address] [place] [id number] Dec, [facility] [address] [id number] [address] [place] [phone] Dec, [facility] [address] [id number] [address] [place] [phone] Nov, Lumbar neuritis M54.16 [facility] [address] [id number] [address] [place] [phone] Nov, Bilateral primary osteoarthr itis of knee M17.0 [facility] [address] [id number] [address] [place] [phone] Nov, [facility] [address] [id number] [address] [place] [phone] Nov, Bronchitis J40 and Plantar f asciitis M72.2 [facility] [address] [id number] [address] [place] [phone] Nov, [facility] [address] [id number] [address] [place] [id number] 30 Oct, 2016 Lumbar neuritis M54.16 [facility] [address] [id number] [address] [place] [phone] 30 Oct, 2016 Lumbar neuritis M54.16 [facility] [address] [id number] [address] [place] [id number] Oct, Lumbar neuritis M54.16 [facility] [address] [id number] [address] [place] [id number] 26 Oct, 2016 Plantar fasciitis M72.2 and Pain in right knee M25.561 [facility] [address] [id number] [address] [place] [address] 16 Oct, 2016 Lumbar neuritis M54.16 ; Cer vical neuritis M54.12 ; Other specified abdominal hernia without obstruction or gangrene K45.8 ; Heel spur, left M77.32 ; Plantar fasciitis M72.2 and Pain in right knee M25.561 [facility] [address] [id number] [address] [place] [id number] 13 Oct, 2016 [facility] [address] [id number] [address] [place] [id number] 14 Aug, 2014 [facility] [address] [id number] [address] [place] [phone] Aug, [facility] [address] [id number] [address] [place] [phone] Apr, [facility] [address] [id number] [address] [place] [phone] Apr, [facility] [address] [id number] [address] [place] [phone] Mar, [facility] [address] [id number] [address] [place] [phone] Mar, [facility] [address] [id number] [address] [place] [address], [place] [id number] 10 Feb, 2013 [facility] [address] [id number] [address] [place] [address], [place] [address] Feb, 2013 [facility] [address] [id number] [address] [place] [address], [place] [address] Feb, 2013 [facility] [address] [id number] [address] [place] [address], [place] [address] Feb, 2013 [facility] [address] [id number] [address] [place] [address], [place] [address] Feb, 2013 [facility] [address] [id number] [address] [place] [address], [place] [address] Feb, 2013 [facility] [address] [id number] [address] [place] [address], [place] [address] Feb, 2013 [facility] [address] [id number] [address] [place] [address], [place] [address] Feb, 2013 [facility] [address] [id number] [address] [place] [address], [place] [address] 30 Sep, 2013 [facility] [address] [id number] [address] [place] [address], [place] [address] 30 Sep, 2013 [facility] [address] [id number] [address] [place] [address], [place] [address] 30 Sep, 2013 [facility] [address] [id number] [address] [place] [address], [place] [address] 30 Sep, 2013 [facility] [address] [id number] [address] [place] [address], [place] [address] 30 Sep, 2013 [facility] [address] [id number] [address] [place] [address], [place] [address] 30 Sep, 2013 [facility] [address] [id number] [address] [place] [address], [place] [address] 26 Sep, 2013 [facility] [address] [id number] [address] [place] [address], [place] [address] 26 Sep, 2013 [facility] [address] [id number] [facility] [place] [address] 22 Sep, 2013 [facility] [address] [id number] [address] [place] [address], [place] [id number] 22 Sep, 2013 [facility] [address] [id number] [address] [place] [address], [place] [address] 16 Sep, 2013 [facility] [address] [id number] [address] [place] [address], [place] [address] 16 Sep, 2013 [facility] [address] [id number] [address] [place] [address], [place] [address] 16 Sep, 2013 [facility] [address] [id number] [address] [place] [address], [place] [address] 16 Sep, 2013 [facility] [address] [id number] [address] [place] [address], [place] [address] 12 Sep, 2013 [facility] [address] [id number] [address] [place] [address], [place] [address] 12 Sep, 2013 [facility] [address] [id number] [address] [place] [address], [place] [address] 12 Sep, 2013 [facility] [address] [id number] [address] [place] [address], [place] [address] 12 Sep, 2013 [facility] [address] [id number] [address] [place] [address], [place] [address] 09 Sep, 2013 [facility] [address] [id number] [address] [place] [address], [place] [address] 09 Sep, 2013 [facility] [address] [id number] [address] [place] [address], [place] [address] 09 Sep, 2013 [facility] [address] [id number] [address] [place] [address], [place] [address] 09 Sep, 2013 [facility] [address] [id number] [address] [place] [address], [place] [address] 05 Sep, 2013 [facility] [address] [id number] [address] [place] [address], [place] [address] Jan, [facility] [address] [id number] [facility] [place] [address] Dec, [facility] [address] [id number] [address] [place] [address], [place] [address] Dec, [facility] [address] [id number] [address] [place] [address], [place] [id number] Dec, [facility] [address] [id number] [address] [place] [address], [place] [address] Dec, [facility] [address] [id number] [address] [place] [address], [place] [address] Dec, [facility] [address] [id number] [address] [place] [address], [place] [address] Dec, [facility] [address] [id number] [address] [place] [address], [place] [address] Dec, [facility] [address] [id number] [address] [place] [address], [place] [id number] Dec, [facility] [address] [id number] [address] [place] [address], [place] [address] Dec, [facility] [address] [id number] [address] [place] [address], [place] [address] Dec, [facility] [address] [id number] [address] [place] [address], [place] [address] Dec, [facility] [address] [id number] [address] [place] [address], [place] [address] Dec, [facility] [address] [id number] [address] [place] [address], [place] [address] Dec, [facility] [address] [id number] [address] [place] [address], [place] [address] Dec, [facility] [address] [id number] [address] [place] [address], [place] [address] Dec, [facility] [address] [id number] [facility] [place] [address] Dec, [facility] [address] [id number] [facility] [place] [address] Dec, [facility] [address] [id number] [facility] [place] [address] Dec, [facility] [address] [id number] [facility] [place] [address] Dec, [facility] [address] [id number] [facility] [place] [address] Nov, [facility] [address] [id number] [address] [place] [address], [place] [address] Nov, [facility] [address] [id number] [address] [place] [address], [place] [address] Nov, [facility] [address] [id number] [address] [place] [address], [place] [address] Nov, [facility] [address] [id number] [address] [place] [address], [place] [address] Nov, [facility] [address] [id number] [address] [place] [address], [place] [address] Nov, [facility] [address] [id number] [address] [place] [address], [place] [address] Nov, [facility] [address] [id number] [address] [place] [address], [place] [address] Nov, [facility] [address] [id number] [address] [place] [address], [place] [address] Nov, [facility] [address] [id number] [address] [place] [address], [place] [address] Nov, [facility] [address] [id number] [address] [place] [address], [place] [address] Nov, [facility] [address] [id number] [address] [place] [address], [place] [address] Oct, [facility] [address] [facility] [id number] [address] [place] [address] Oct, [facility] [address] [facility] [id number] [address] [place] [id number] Oct, [facility] [address] [facility] [id number] [address] [place] [id number] Apr, IMMUNIZATIONS No Known Immunizations SOCIAL HISTORY [...]
--- OUTSIDE RECORDS SUMMARY | 2019-11-23 06:19 | XMS REPORT ---
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 Name Role Phone JANE Lopez Unavailable PROBLEMS Type Condition ICD9-CM Code [id number] Code Onset Dates Condition S tatus SNOMED Code Problem Lumbago with sciatica, right side M54.41 Active 031203637320922 Problem Other chronic pain G89.29 Active 8 2187775 Problem Bilateral primary osteoarthritis of knee M17.0 Active 322671967 Problem Chronic pain syndrome G89.4 Active 716934571 Problem Anxiety disorder, unspecified F41.9 Active 458249182 Problem Lumbago with sciatica, left side M54.42 Active [id number] ALLERGIES No Information ENCOUNTERS Encounter Location Date Diagnosis [facility] [address] [id number] [address] [place] [phone] Dec, Chronic pain syndrome G89.4 [facility] [address] [address] Dec, Chronic pain syndrome G89.4 and Anxiety disorder, unspecified F41.9 [facility] [address] [id number] [address] [place] [phone] Nov, [facility] [address] [id number] [place] [phone] Oct, [facility] [address] [address] Oct, [facility] [address] [id number] [address] [place] [phone] Oct, Acute bronchitis, unspecifie d organism J20.9 and Nasal congestion R09.81 [facility] [address] [id number] [address] [place] [phone] September, [facility] [address] [id number] [address] [place] [phone] Aug, Lumbago with sciatica, left side M54.42 ; Lumbago with sciatica, right side M54.41 and Other chronic pain G89.29 [facility] [address] [id number] [address] [place] [phone] Aug, [facility] [address] [id number] [address] [place] [id number] Jul, [facility] [address] [id number] [address] [place] [phone] Jun, [facility] [address] [id number] [address] [place] [phone] May, [facility] [address] [id number] [address] [place] [id number] Apr, Pain in right knee M25.561 [facility] [address] [id number] [address] [place] [phone] Apr, Pain in right knee M25.561 [facility] [address] [id number] [address] [place] [address] Mar, Pain in right knee M25.561 [facility] [address] [id number] [address] [place] [phone] Mar, [facility] [address] [id number] [address] [place] [phone] Mar, Chronic pain syndrome G89.4 [facility] [address] [id number] [address] [place] [id number] Feb, [facility] [address] [id number] [address] [place] [phone] Feb, [facility] [address] [id number] [address] [place] [phone] Dec, [facility] [address] [id number] [address] [place] [phone] Dec, [facility] [address] [id number] [address] [place] [phone] Nov, Chronic pain syndrome G89.4 [facility] [address] [id number] [address] [place] [phone] Nov, [facility] [address] [id number] [address] [place] [phone] Oct, [facility] [address] [id number] [address] [place] [id number] Oct, [facility] [address] [id number] [address] [place] [id number] Oct, [facility] [address] [facility] [id number] [address] [place] [address] Oct, Allergic reaction to drug, s ubsequent encounter T78.40XD [facility] [address] [id number] [address] [place] [phone] September, [facility] [address] [id number] [address] [place] [phone] September, [facility] [address] [facility] [id number] [address] [place] [phone] September, Low back pain radiating to l ower extremity M54.5 [facility] [address] [id number] [address] [place] [phone] Aug, [facility] [address] [id number] [address] [place] [id number] Aug, [facility] [address] [facility] [id number] [address] [place] [phone] Aug, [facility] [address] [facility] [id number] [address] [place] [id number] Aug, [facility] [id number] [place] [id number] Aug, Incisional infection, initia l encounter T81.4XXA [facility] [address] [address] Aug, [facility] [address] [address] Jul, [facility] [address] [address] Jul, [facility] [address] [address] Jul, Chronic pain syndrome G89.4 [facility] [address] [address] Jul, Pre-op evaluation Z01.818 [facility] [address] [address] Jul, [facility] [address] [address] Jun, Anxiety disorder, unspecifie d F41.9 and Chronic pain syndrome G89.4 [facility] [id number] [place] [phone] Jun, [facility] [address] [address] Jun, [facility] [address] [id number] [place] [phone] Jun, [facility] [address] [address] Jun, [facility] [address] [address] 08 Jun, 2017 Lumbar neuritis M54.16 [facility] [id number] [place] [phone] May, [facility] [address] [id number] [address] [place] [phone] May, [facility] [address] [id number] [address] [place] [id number] May, Encounter for therapeutic dr heather level monitoring Z51.81 ; Encounter for immunization Z23 and Chronic pain syndrome G89.4 [facility] [address] [id number] [address] [place] [phone] May, Lumbar neuritis M54.16 [facility] [address] [id number] [address] [place] [phone] May, [facility] [address] [id number] [address] [place] [phone] Apr, Lumbar neuritis M54.16 [facility] [address] [id number] [address] [place] [phone] Apr, [facility] [address] [id number] [address] [place] [phone] Mar, Lumbar neuritis M54.16 [facility] [address] [id number] [address] [place] [phone] Mar, [facility] [address] [id number] [address] [place] [phone] Mar, [facility] [address] [id number] [address] [place] [phone] Feb, Lumbar neuritis M54.16 [facility] [address] [id number] [address] [place] [phone] Feb, Lumbar neuritis M54.16 [facility] [address] [id number] [address] [place] [phone] Feb, [facility] [address] [id number] [address] [place] [phone] Feb, [facility] [address] [id number] [address] [place] [phone] Jan, [facility] [address] [id number] [address] [place] [id number] 22 Jan, 2017 Peroneal tendonitis of left lower extremity M76.72 [facility] [address] [id number] [address] [place] [id number] 20 Jan, 2017 Lumbar neuritis M54.16 [facility] [address] [id number] [address] [place] [id number] 12 Jan, 2017 [facility] [address] [id number] [address] [place] [phone] 2016 Lumbar neuritis M54.16 [facility] [address] [id number] [address] [place] [phone] Dec, [facility] [address] [id number] [address] [place] [id number] Dec, Pain in right knee M25.561 ; Lumbar neuritis M54.16 and Cervical neuritis M54.12 [facility] [address] [id number] [address] [place] [id number] Dec, [facility] [address] [id number] [address] [place] [id number] Dec, [facility] [address] [id number] [address] [place] [id number] Nov, Lumbar neuritis M54.16 [facility] [address] [id number] [address] [place] [id number] Nov, Bilateral primary osteoarthr itis of knee M17.0 [facility] [address] [id number] [address] [place] [phone] Nov, [facility] [address] [id number] [address] [place] [phone] Nov, Bronchitis J40 and Plantar f asciitis M72.2 [facility] [address] [id number] [address] [place] [phone] Nov, [facility] [address] [id number] [address] [place] [id number] 30 Oct, 2016 Lumbar neuritis M54.16 [facility] [address] [id number] [address] [place] [id number] 30 Oct, 2016 Lumbar neuritis M54.16 [facility] [address] [id number] [address] [place] [id number] Oct, Lumbar neuritis M54.16 [facility] [address] [id number] [address] [place] [id number] 26 Oct, 2016 Plantar fasciitis M72.2 and Pain in right knee M25.561 [facility] [address] [id number] [address] [place] [id number] 16 Oct, 2016 Lumbar neuritis M54.16 ; Cer vical neuritis M54.12 ; Other specified abdominal hernia without obstruction or gangrene K45.8 ; Heel spur, left M77.32 ; Plantar fasciitis M72.2 and Pain in right knee M25.561 [facility] [address] [id number] [address] [place] [id number] 13 Oct, 2016 [facility] [address] [id number] [address] [place] [phone] 14 Aug, 2014 [facility] [address] [id number] [address] [place] [phone] Aug, [facility] [address] [id number] [address] [place] [id number] Apr, [facility] [address] [id number] [address] [place] [phone] Apr, [facility] [address] [id number] [address] [place] [phone] Mar, [facility] [address] [id number] [address] [place] [phone] Mar, [facility] [address] [id number] [address] [place] [address], [place] [address] 10 Feb, 2013 [facility] [address] [id number] [address] [place] [address], [place] [address] Feb, 2013 [facility] [address] [id number] [address] [place] [address], [place] [address] Feb, 2013 [facility] [address] [id number] [address] [place] [address], [place] [address] Feb, 2013 [facility] [address] [id number] [address] [place] [address], [place] [address] Feb, 2013 [facility] [address] [id number] [address] [place] [address], [place] [address] Feb, 2013 [facility] [address] [id number] [address] [place] [address], [place] [address] Feb, 2013 [facility] [address] [id number] [address] [place] [address], [place] [address] Feb, 2013 [facility] [address] [id number] [address] [place] [address], [place] [address] 30 Sep, 2013 [facility] [address] [id number] [address] [place] [address], [place] [address] 30 Sep, 2013 [facility] [address] [id number] [address] [place] [address], [place] [address] 30 Sep, 2013 [facility] [address] [id number] [address] [place] [address], [place] [address] 30 Sep, 2013 [facility] [address] [id number] [address] [place] [address], [place] [address] 30 Sep, 2013 [facility] [address] [id number] [address] [place] [address], [place] [address] 30 Sep, 2013 [facility] [address] [id number] [address] [place] [address], [place] [address] 26 Sep, 2013 [facility] [address] [id number] [address] [place] [address], [place] [address] 26 Sep, 2013 [facility] [address] [id number] [facility] [place] [address] 22 Sep, 2013 [facility] [address] [id number] [address] [place] [address], [place] [address] 22 Sep, 2013 [facility] [address] [id number] [address] [place] [address], [place] [address] 16 Sep, 2013 [facility] [address] [id number] [address] [place] [address], [place] [address] 16 Sep, 2013 [facility] [address] [id number] [address] [place] [address], [place] [address] 16 Sep, 2013 [facility] [address] [id number] [address] [place] [address], [place] [address] 16 Sep, 2013 [facility] [address] [id number] [address] [place] [address], [place] [address] 12 Sep, 2013 [facility] [address] [id number] [address] [place] [address], [place] [address] 12 Sep, 2013 [facility] [address] [id number] [address] [place] [address], [place] [address] 12 Sep, 2013 [facility] [address] [id number] [address] [place] [address], [place] [address] 12 Sep, 2013 [facility] [address] [id number] [address] [place] [address], [place] [address] 09 Sep, 2013 [facility] [address] [id number] [address] [place] [address], [place] [address] 09 Sep, 2013 [facility] [address] [id number] [address] [place] [address], [place] [address] 09 Sep, 2013 [facility] [address] [id number] [address] [place] [address], [place] [address] 09 Sep, 2013 [facility] [address] [id number] [address] [place] [address], [place] [address] 05 Sep, 2013 [facility] [address] [id number] [address] [place] [address], [place] [address] Jan, [facility] [address] [id number] [facility] [place] [address] Dec, [facility] [address] [id number] [address] [place] [address], [place] [address] Dec, [facility] [address] [id number] [address] [place] [address], [place] [address] Dec, [facility] [address] [id number] [address] [place] [address], [place] [address] Dec, [facility] [address] [id number] [address] [place] [address], [place] [address] Dec, [facility] [address] [id number] [address] [place] [address], [place] [address] Dec, [facility] [address] [id number] [address] [place] [address], [place] [address] Dec, [facility] [address] [id number] [address] [place] [address], [place] [address] Dec, [facility] [address] [id number] [address] [place] [address], [place] [address] Dec, [facility] [address] [id number] [address] [place] [address], [place] [address] Dec, [facility] [address] [id number] [address] [place] [address], [place] [address] Dec, [facility] [address] [id number] [address] [place] [address], [place] [address] Dec, [facility] [address] [id number] [address] [place] [address], [place] [address] Dec, [facility] [address] [id number] [address] [place] [address], [place] [address] Dec, [facility] [address] [id number] [address] [place] [address], [place] [address] Dec, [facility] [address] [id number] [facility] [place] [address] Dec, [facility] [address] [id number] [facility] [place] [address] Dec, [facility] [address] [id number] [facility] [place] [address] Dec, [facility] [address] [id number] [facility] [place] [address] Dec, [facility] [address] [id number] [facility] [place] [address] Nov, [facility] [address] [id number] [address] [place] [address], [place] [address] Nov, [facility] [address] [id number] [address] [place] [address], [place] [address] Nov, [facility] [address] [id number] [address] [place] [address], [place] [address] Nov, [facility] [address] [id number] [address] [place] [address], [place] [address] Nov, [facility] [address] [id number] [address] [place] [address], [place] [address] Nov, [facility] [address] [id number] [address] [place] [address], [place] [address] Nov, [facility] [address] [id number] [address] [place] [address], [place] [address] Nov, [facility] [address] [id number] [address] [place] [address], [place] [address] Nov, [facility] [address] [id number] [address] [place] [address], [place] [address] Nov, [facility] [address] [id number] [address] [place] [address], [place] [address] Nov, [facility] [address] [id number] [address] [place] [address], [place] [address] Oct, [facility] [address] [facility] [id number] [address] [place] [phone] Oct, [facility] [address] [facility] [id number] [address] [place] [address] Oct, [facility] [address] [facility] [id number] [address] [place] [id number] Apr, IMMUNIZATIONS No Known Immunizations SOCIAL HISTORY [...]
--- OUTSIDE RECORDS SUMMARY | 2019-11-23 06:19 | XMS REPORT ---
Author Author Pal Lopez Organization [facility] Address [address] [place] [address] Care Team Providers Care Lead Web Developer Name Role Phone JANE Lopez Unavailable PROBLEMS Type Condition ICD9-CM Code [id number] Code Onset Dates Condition S tatus SNOMED Code Problem Lumbago with sciatica, right side M54.41 Active [id number] Problem Other chronic pain G89.29 Active 8 2183935 Problem Bilateral primary osteoarthritis of knee M17.0 Active 711299877 Problem Chronic pain syndrome G89.4 Active 319355265 Problem Anxiety disorder, unspecified F41.9 Active 239270603 Problem Lumbago with sciatica, left side M54.42 Active 917650910 ALLERGIES No Information ENCOUNTERS Encounter Location Date Diagnosis [facility] [address] [id number] [address] [place] [address] Dec, Chronic pain syndrome G89.4 [facility] [address] [address] Dec, Chronic pain syndrome G89.4 and Anxiety disorder, unspecified F41.9 [facility] [address] [id number] [address] [place] [address] Nov, [facility] [address] [id number] [address] [place] [address] Oct, [facility] [address] [address] Oct, [facility] [address] [id number] [address] [place] [address] Oct, Acute bronchitis, unspecifie d organism J20.9 and Nasal congestion R09.81 [facility] [address] [id number] [address] [place] [address] September, [facility] [address] [id number] [address] [place] [address] Aug, Lumbago with sciatica, left side M54.42 ; Lumbago with sciatica, right side M54.41 and Other chronic pain G89.29 [facility] [address] [id number] [address] [place] [address] Aug, [facility] [address] [id number] [address] [place] [address] Jul, [facility] [address] [id number] [address] [place] [address] Jun, [facility] [address] [id number] [address] [place] [address] May, [facility] [address] [id number] [address] [place] [address] Apr, Pain in right knee M25.561 [facility] [address] [id number] [address] [place] [address] Apr, Pain in right knee M25.561 [facility] [address] [id number] [address] [place] [address] Mar, Pain in right knee M25.561 [facility] [address] [id number] [address] [place] [address] Mar, [facility] [address] [id number] [address] [place] [address] Mar, Chronic pain syndrome G89.4 [facility] [address] [id number] [address] [place] [address] Feb, [facility] [address] [id number] [address] [place] [address] Feb, [facility] [address] [id number] [address] [place] [address] Dec, [facility] [address] [id number] [address] [place] [address] Dec, [facility] [address] [id number] [address] [place] [address] Nov, Chronic pain syndrome G89.4 [facility] [address] [id number] [address] [place] [address] Nov, [facility] [address] [id number] [address] [place] [address] Oct, [facility] [address] [id number] [address] [place] [address] Oct, [facility] [address] [id number] [address] [place] [address] Oct, [facility] [address] [facility] [id number] [address] [place] [address] Oct, Allergic reaction to drug, s ubsequent encounter T78.40XD [facility] [address] [id number] [address] [place] [address] September, [facility] [address] [id number] [address] [place] [address] September, [facility] [address] [facility] [id number] [address] [place] [address] September, Low back pain radiating to l ower extremity M54.5 [facility] [address] [id number] [address] [place] [address] Aug, [facility] [address] [id number] [address] [place] [address] Aug, [facility] [address] [facility] [id number] [address] [place] [address] Aug, [facility] [address] [facility] [id number] [address] [place] [address] Aug, [facility] [address] [id number] [address] [place] [address] Aug, Incisional infection, initia l encounter T81.4XXA [facility] [address] [address] Aug, [facility] [address] [address] Jul, [facility] [address] [address] Jul, [facility] [address] [address] Jul, Chronic pain syndrome G89.4 [facility] [address] [address] Jul, Pre-op evaluation Z01.818 [facility] [address] [address] Jul, [facility] [address] [address] Jun, Anxiety disorder, unspecifie d F41.9 and Chronic pain syndrome G89.4 [facility] [address] [id number] [address] [place] [address] Jun, [facility] [address] [address] Jun, [facility] [address] [id number] [address] [place] [address] Jun, [facility] [address] [address] Jun, [facility] [address] [address] 08 Jun, 2017 Lumbar neuritis M54.16 [facility] [address] [id number] [address] [place] [address] May, [facility] [address] [id number] [address] [place] [address] May, [facility] [address] [id number] [address] [place] [address] May, Encounter for therapeutic dr heather level monitoring Z51.81 ; Encounter for immunization Z23 and Chronic pain syndrome G89.4 [facility] [address] [id number] [address] [place] [address] May, Lumbar neuritis M54.16 [facility] [address] [id number] [address] [place] [address] May, [facility] [address] [id number] [address] [place] [address] Apr, Lumbar neuritis M54.16 [facility] [address] [id number] [address] [place] [address] Apr, [facility] [address] [id number] [address] [place] [address] Mar, Lumbar neuritis M54.16 [facility] [address] [id number] [address] [place] [address] Mar, [facility] [address] [id number] [address] [place] [address] Mar, [facility] [address] [id number] [address] [place] [address] Feb, Lumbar neuritis M54.16 [facility] [address] [id number] [address] [place] [address] Feb, Lumbar neuritis M54.16 [facility] [address] [id number] [address] [place] [address] Feb, [facility] [address] [id number] [address] [place] [address] Feb, [facility] [address] [id number] [address] [place] [address] Jan, [facility] [address] [id number] [address] [place] [address] 22 Jan, 2017 Peroneal tendonitis of left lower extremity M76.72 [facility] [address] [id number] [address] [place] [address] 20 Jan, 2017 Lumbar neuritis M54.16 [facility] [address] [id number] [address] [place] [address] 12 Jan, 2017 [facility] [address] [id number] [address] [place] [address] 2016 Lumbar neuritis M54.16 [facility] [address] [id number] [address] [place] [address] Dec, [facility] [address] [id number] [address] [place] [address] Dec, Pain in right knee M25.561 ; Lumbar neuritis M54.16 and Cervical neuritis M54.12 [facility] [address] [id number] [address] [place] [address] Dec, [facility] [address] [id number] [address] [place] [address] Dec, [facility] [address] [id number] [address] [place] [address] Nov, Lumbar neuritis M54.16 [facility] [address] [id number] [address] [place] [address] Nov, Bilateral primary osteoarthr itis of knee M17.0 [facility] [address] [id number] [address] [place] [address] Nov, [facility] [address] [id number] [address] [place] [address] Nov, Bronchitis J40 and Plantar f asciitis M72.2 [facility] [address] [id number] [address] [place] [address] Nov, [facility] [address] [id number] [address] [place] [address] 30 Oct, 2016 Lumbar neuritis M54.16 [facility] [address] [id number] [address] [place] [address] 30 Oct, 2016 Lumbar neuritis M54.16 [facility] [address] [id number] [address] [place] [address] Oct, Lumbar neuritis M54.16 [facility] [address] [id number] [address] [place] [address] 26 Oct, 2016 Plantar fasciitis M72.2 and Pain in right knee M25.561 [facility] [address] [id number] [address] [place] [address] 16 Oct, 2016 Lumbar neuritis M54.16 ; Cer vical neuritis M54.12 ; Other specified abdominal hernia without obstruction or gangrene K45.8 ; Heel spur, left M77.32 ; Plantar fasciitis M72.2 and Pain in right knee M25.561 [facility] [address] [id number] [address] [place] [address] 13 Oct, 2016 [facility] [address] [id number] [address] [place] [address] 14 Aug, 2014 [facility] [address] [id number] [address] [place] [phone] Aug, [facility] [address] [id number] [address] [place] [phone] Apr, [facility] [address] [id number] [address] [place] [address] Apr, [facility] [address] [id number] [address] [place] [address] Mar, [facility] [address] [id number] [address] [place] [phone] Mar, [facility] [address] [id number] [address] [place] [address], [place] [address] 10 Feb, 2013 [facility] [address] [id number] [address] [place] [address], [place] [address] Feb, 2013 [facility] [address] [id number] [address] [place] [address], [place] [address] Feb, 2013 [facility] [address] [id number] [address] [place] [address], [place] [address] Feb, 2013 [facility] [address] [id number] [address] [place] [address], [place] [address] Feb, 2013 [facility] [address] [id number] [address] [place] [address], [place] [address] Feb, 2013 [facility] [address] [id number] [address] [place] [address], [place] [address] Feb, 2013 [facility] [address] [id number] [address] [place] [address], [place] [address] Feb, 2013 [facility] [address] [id number] [address] [place] [address], [place] [address] 30 Sep, 2013 [facility] [address] [id number] [address] [place] [address], [place] [address] 30 Sep, 2013 [facility] [address] [id number] [address] [place] [address], [place] [address] 30 Sep, 2013 [facility] [address] [id number] [address] [place] [address], [place] [address] 30 Sep, 2013 [facility] [address] [id number] [address] [place] [address], [place] [address] 30 Sep, 2013 [facility] [address] [id number] [address] [place] [address], [place] [address] 30 Sep, 2013 [facility] [address] [id number] [address] [place] [address], [place] [address] 26 Sep, 2013 [facility] [address] [id number] [address] [place] [address], [place] [address] 26 Sep, 2013 [facility] [address] [id number] [facility] [address] 22 Sep, 2013 [facility] [address] [id number] [address] [place] [address], [place] [address] 22 Sep, 2013 [facility] [address] [id number] [address] [place] [address], [place] [address] 16 Sep, 2013 [facility] [address] [id number] [address] [place] [address], [place] [address] 16 Sep, 2013 [facility] [address] [id number] [address] [place] [address], [place] [address] 16 Sep, 2013 [facility] [address] [id number] [address] [place] [address], [place] [address] 16 Sep, 2013 [facility] [address] [id number] [address] [place] [address], [place] [address] 12 Sep, 2013 [facility] [address] [id number] [address] [place] [address], [place] [address] 12 Sep, 2013 [facility] [address] [id number] [address] [place] [address], [place] [address] 12 Sep, 2013 [facility] [address] [id number] [address] [place] [address], [place] [address] 12 Sep, 2013 [facility] [address] [id number] [address] [place] [address], [place] [address] 09 Sep, 2013 [facility] [address] [id number] [address] [place] [address], [place] [address] 09 Sep, 2013 [facility] [address] [id number] [address] [place] [address], [place] [address] 09 Sep, 2013 [facility] [address] [id number] [address] [place] [address], [place] [address] 09 Sep, 2013 [facility] [address] [id number] [address] [place] [address], [place] [address] 05 Sep, 2013 [facility] [address] [id number] [address] [place] [address], [place] [address] Jan, [facility] [address] [id number] [facility] [address] Dec, [facility] [address] [id number] [address] [place] [address], [place] [address] Dec, [facility] [address] [id number] [address] [place] [address], [place] [address] Dec, [facility] [address] [id number] [address] [place] [address], [place] [address] Dec, [facility] [address] [id number] [address] [place] [address], [place] [address] Dec, [facility] [address] [id number] [address] [place] [address], [place] [address] Dec, [facility] [address] [id number] [address] [place] [address], [place] [address] Dec, [facility] [address] [id number] [address] [place] [address], [place] [address] Dec, [facility] [address] [id number] [address] [place] [address], [place] [address] Dec, [facility] [address] [id number] [address] [place] [address], [place] [address] Dec, [facility] [address] [id number] [address] [place] [address], [place] [address] Dec, [facility] [address] [id number] [address] [place] [address], [place] [address] Dec, [facility] [address] [id number] [address] [place] [address], [place] [address] Dec, [facility] [address] [id number] [address] [place] [address], [place] [address] Dec, [facility] [address] [id number] [address] [place] [address], [place] [address] Dec, [facility] [address] [id number] [facility] [address] Dec, [facility] [address] [id number] [facility] [place] [address] Dec, [facility] [address] [id number] [facility] [place] [address] Dec, [facility] [address] [id number] [facility] [place] [address] Dec, [facility] [address] [id number] [facility] [place] [address] Nov, [facility] [address] [id number] [address] [place] [address], [place] [address] Nov, [facility] [address] [id number] [address] [place] [address], [place] [address] Nov, [facility] [address] [id number] [address] [place] [address], [place] [address] Nov, [facility] [address] [id number] [address] [place] [address], [place] [address] Nov, [facility] [address] [id number] [address] [place] [address], [place] [address] Nov, [facility] [address] [id number] [address] [place] [address], [place] [address] Nov, [facility] [address] [id number] [address] [place] [address], [place] [address] Nov, [facility] [address] [id number] [address] [place] [address], [place] [address] Nov, [facility] [address] [id number] [address] [place] [address], [place] [address] Nov, [facility] [address] [id number] [address] [place] [address], [place] [address] Nov, [facility] [address] [id number] [address] [place] [address], [place] [address] Oct, [facility] [address] [facility] [id number] [address] [place] [address] Oct, [facility] [address] [facility] [id number] [address] [place] [address] Oct, [facility] [address] [facility] [id number] [address] [place] [address] Apr, IMMUNIZATIONS No Known Immunizations SOCIAL HISTORY Never Assessed REASON FOR VISIT PLAN OF CARE VITAL SIGNS MEDICATIONS Unknown Medications RESULTS No Results PROCEDURES Procedure Date Ordered Result Body Site VISIT Jan 31, 2014 INSTRUCTIONS MEDICATIONS ADMINISTERED No Known Medications [...]
--- OUTSIDE RECORDS SUMMARY | 2019-11-23 06:19 | XMS REPORT ---
Author Author Pal Bajwa Doctor Organization [facility] Address Unknown Phone Unavailable Care Team Providers Care [employer]isher Name Role Phone Migration, Doctor Unavailable Unavailable PROBLEMS Type Condition ICD9-CM Code CKR93-LY Code Onset Dates Condition S tatus SNOMED Code Problem Lumbago with sciatica, right side M54.41 Active 803606991572761 Problem Other chronic pain G89.29 Active 8 2945620 Problem Bilateral primary osteoarthritis of knee M17.0 Active 680230644 Problem Chronic pain syndrome G89.4 Active 762375942 Problem Anxiety disorder, unspecified F41.9 Active 715893803 Problem Lumbago with sciatica, left side M54.42 Active [id number] ALLERGIES No Information ENCOUNTERS Encounter Location Date Diagnosis [facility] [address] [facility] [id number] [address] [place] [id number] Dec, Chronic pain syndrome G89.4 [facility] [address] [id number] [address] [place] [phone] Dec, Chronic pain syndrome G89.4 and Anxiety disorder, unspecified F41.9 [facility] [address] [id number] [address] [place] [phone] Nov, [facility] [address] [id number] [address] [place] [phone] Oct, [facility] [address] [facility] [id number] [address] [place] [phone] Oct, [facility] [address] [id number] [address] [place] [phone] Oct, Acute bronchitis, unspecifie d organism J20.9 [address] Nasal congestion R09.81 [facility] [address] [id number] [address] [place] [address] September, [facility] [address] [id number] [address] [place] [address] Aug, Lumbago with sciatica, left side M54.42 ; Lumbago with sciatica, right side M54.41 and Other chronic pain G89.29 [facility] [address] [id number] [address] [place] [phone] Aug, [facility] [address] [id number] [address] [place] [address] Jul, [facility] [address] [id number] [address] [place] [address] Jun, [facility] [address] [id number] [address] [place] [address] May, [facility] [address] [id number] [address] [place] [address] Apr, Pain in right knee M25.561 [facility] [address] [id number] [address] [place] [address] Apr, Pain in right knee M25.561 [facility] [address] [id number] [address] [place] [address] Mar, Pain in right knee M25.561 [facility] [address] [id number] [address] [place] [address] Mar, [facility] [address] [id number] [address] [place] [address] Mar, Chronic pain syndrome G89.4 [facility] [address] [id number] [address] [place] [address] Feb, [facility] [address] [id number] [address] [place] [phone] Feb, [facility] [address] [id number] [address] [place] [address] Dec, [facility] [address] [id number] [address] [place] [phone] Dec, [facility] [address] [id number] [address] [place] [address] Nov, Chronic pain syndrome G89.4 [facility] [address] [id number] [address] [place] [phone] Nov, [facility] [address] [id number] [address] [place] [address] Oct, [facility] [address] [id number] [address] [place] [address] Oct, [facility] [address] [id number] [address] [place] [address] Oct, [facility] [address] [facility] [id number] [address] [place] [address] Oct, Allergic reaction to drug, s ubsequent encounter T78.40XD [facility] [address] [id number] [address] [place] [address] September, [facility] [address] [id number] [address] [place] [address] September, [facility] [address] [facility] [id number] [address] [place] [address] September, Low back pain radiating to l ower extremity M54.5 [facility] [address] [id number] [address] [place] [address] Aug, [facility] [address] [id number] [address] [place] [address] Aug, [facility] [address] [id number] [address] [place] [address] Aug, [facility] [address] [facility] [id number] [address] [place] [address] Aug, [facility] [address] [facility] [id number] [address] [place] [address] Aug, Incisional infection, initia l encounter T81.4XXA [facility] [address] [facility] [id number] [address] [place] [phone] Aug, [facility] [address] [facility] [id number] [address] [place] [address] Jul, [facility] [address] [facility] [id number] [address] [place] [address] Jul, [facility] [address] [facility] [id number] [address] [place] [id number] Jul, Chronic pain syndrome G89.4 [facility] [address] [facility] [id number] [address] [place] [address] Jul, Pre-op evaluation Z01.818 [facility] [address] [facility] [id number] [address] [place] [phone] Jul, [facility] [address] [id number] [address] [place] [address] Jun, Anxiety disorder, unspecifie d F41.9 and Chronic pain syndrome G89.4 [facility] [address] [facility] [id number] [address] [place] [address] Jun, [facility] [address] [facility] [id number] [address] [place] [phone] Jun, [facility] [address] [facility] [id number] [address] [place] [phone] Jun, [facility] [address] [facility] [id number] [address] [place] [address] Jun, [facility] [address] [facility] [id number] [address] [place] [address] Jun, Lumbar neuritis M54.16 [facility] [address] [facility] [id number] [address] [place] [address] May, [facility] [address] [id number] [address] [place] [address] May, [facility] [address] [id number] [address] [place] [phone] May, Encounter for therapeutic dr heather level monitoring Z51.81 ; Encounter for immunization Z23 and Chronic pain syndrome G89.4 [facility] [address] [id number] [address] [place] [address] May, Lumbar neuritis M54.16 [facility] [address] [id number] [address] [place] [address] May, [facility] [address] [id number] [address] [place] [address] Apr, Lumbar neuritis M54.16 [facility] [address] [id number] [address] [place] [address] Apr, [facility] [address] [id number] [address] [place] [address] Mar, Lumbar neuritis M54.16 [facility] [address] [id number] [address] [place] [phone] Mar, [facility] [address] [id number] [address] [place] [address] Mar, [facility] [address] [id number] [address] [place] [address] Feb, Lumbar neuritis M54.16 [facility] [address] [id number] [address] [place] [phone] Feb, Lumbar neuritis M54.16 [facility] [address] [id number] [address] [place] [address] Feb, [facility] [address] [id number] [address] [place] [phone] Feb, [facility] [address] [id number] [address] [place] [phone] Jan, [facility] [address] [id number] [address] [place] [address] Jan, Peroneal tendonitis of left lower extremity M76.72 [facility] [address] [id number] [address] [place] [phone] 20 Jan, [address] [facility] [address] [id number] [address] [place] [phone] Jan, [facility] [address] [id number] [address] [place] [phone] Dec, Lumbar neuritis M54.16 [facility] [address] [id number] [address] [place] [phone] Dec, [facility] [address] [id number] [address] [place] [id number] 18 Dec, 2016 Pain in right knee M25.561 ; Lumbar neuritis M54.16 and Cervical neuritis M54.12 [facility] [address] [id number] [address] [place] [address] Dec, [facility] [address] [id number] [address] [place] [address] Dec, [facility] [address] [id number] [address] [place] [id number] Nov, Lumbar neuritis M54.16 [facility] [address] [id number] [address] [place] [phone] Nov, Bilateral primary osteoarthr itis of knee M17.0 [facility] [address] [id number] [address] [place] [id number] Nov, [facility] [address] [id number] [address] [place] [phone] Nov, Bronchitis J40 and Plantar f asciitis M72.2 [facility] [address] [id number] [address] [place] [address] Nov, [facility] [address] [id number] [address] [place] [id number] 30 Oct, [address] [facility] [address] [id number] [address] [place] [id number] 30 Oct, [address] [facility] [address] [id number] [address] [place] [address] 28 Oct, [address] [facility] [address] [id number] [address] [place] [id number] 26 Oct, 2016 Plantar fasciitis M72.2 and Pain in right knee M25.561 [facility] [address] [id number] [address] [place] [id number] 16 Oct, 2016 Lumbar neuritis M54.16 ; Cer vical neuritis M54.12 ; Other specified abdominal hernia without obstruction or gangrene K45.8 ; Heel spur, left M77.32 ; Plantar fasciitis M72.2 and Pain in right knee M25.561 [facility] [address] [id number] [address] [place] [address] [address] Oct, 2016 [facility] [address] [id number] [address] [place] [id number] [address] Aug, 2014 [facility] [address] [id number] [address] [place] [phone] 13 Aug, 2014 [facility] [address] [id number] [address] [place] [phone] Apr, [facility] [address] [id number] [address] [place] [phone] Apr, [facility] [address] [id number] [address] [place] [phone] Mar, [facility] [address] [id number] [address] [place] [phone] Mar, [facility] [address] [id number] [address] [place] [phone] Feb, [facility] [address] [id number] [address] [place] [address], [place] [address] 10 Feb, 2013 [facility] [address] [id number] [address] [place] [address], [place] [address] 09 Feb, 2013 [facility] [address] [id number] [address] [place] [address], [place] [address] Feb, 2013 [facility] [address] [id number] [address] [place] [address], [place] [address] Feb, 2013 [facility] [address] [id number] [address] [place] [address], [place] [address] Feb, 2013 [facility] [address] [id number] [address] [place] [address], [place] [address] Feb, 2013 [facility] [address] [id number] [address] [place] [address], [place] [address] Feb, 2013 [facility] [address] [id number] [address] [place] [address], [place] [address] 30 Sep, 2013 [facility] [address] [id number] [address] [place] [address], [place] [address] 30 Sep, 2013 [facility] [address] [id number] [address] [place] [address], [place] [address] 30 Sep, 2013 [facility] [address] [id number] [address] [place] [address], [place] [address] 30 Sep, 2013 [facility] [address] [id number] [address] [place] [address], [place] [address] 30 Sep, 2013 [facility] [address] [id number] [address] [place] [address], [place] [address] 30 Sep, 2013 [facility] [address] [id number] [address] [place] [address], [place] [address] 26 Sep, 2013 [facility] [address] [id number] [address] [place] [address], [place] [address] 26 Sep, 2013 [facility] [address] [id number] [address] [place] [address], [place] [address] 22 Sep, 2013 [facility] [address] [id number] [address] [place] [address], [place] [address] 22 Sep, 2013 [facility] [address] [id number] [address] [place] [address], [place] [address] 16 Sep, 2013 [facility] [address] [id number] [address] [place] [address], [place] [address] 16 Sep, 2013 [facility] [address] [id number] [address] [place] [address], [place] [address] 16 Sep, 2013 [facility] [address] [id number] [address] [place] [address], [place] [address] 16 Sep, 2013 [facility] [address] [id number] [address] [place] [address], [place] [address] 12 Sep, 2013 [facility] [address] [id number] [address] [place] [address], [place] [address] 12 Sep, 2013 [facility] [address] [id number] [address] [place] [address], [place] [address] 12 Sep, 2013 [facility] [address] [id number] [address] [place] [address], [place] [address] 12 Sep, 2013 [facility] [address] [id number] [address] [place] [address], [place] [address] 09 Sep, 2013 [facility] [address] [id number] [address] [place] [address], [place] [address] 09 Sep, 2013 [facility] [address] [id number] [address] [place] [address], [place] [address] 09 Sep, 2013 [facility] [address] [id number] [address] [place] [address], [place] [address] 09 Sep, 2013 [facility] [address] [id number] [address] [place] [address], [place] [address] 05 Sep, 2013 [facility] [address] [id number] [address] [place] [address], [place] [address] 05 Sep, 2013 [facility] [address] [id number] [address] [place] [address], [place] [address] Dec, [facility] [address] [id number] [facility] [place] [address] Dec, [facility] [address] [id number] [address] [place] [address], [place] [address] Dec, [facility] [address] [id number] [facility] [place] [address] Dec, [facility] [address] [id number] [address] [place] [address], [place] [address] Dec, [facility] [address] [id number] [address] [place] [address], [place] [address] Dec, [facility] [address] [id number] [address] [place] [address], [place] [address] Dec, [facility] [address] [id number] [address] [place] [address], [place] [address] Dec, [facility] [address] [id number] [address] [place] [address], [place] [address] Dec, [facility] [address] [id number] [address] [place] [address], [place] [address] Dec, [facility] [address] [id number] [address] [place] [address], [place] [address] Dec, [facility] [address] [id number] [address] [place] [address], [place] [address] Dec, [facility] [address] [id number] [address] [place] [address], [place] [address] Dec, [facility] [address] [id number] [address] [place] [address], [place] [address] Dec, [facility] [address] [id number] [address] [place] [address], [place] [address] Dec, [facility] [address] [id number] [address] [place] [address], [place] [address] Dec, [facility] [address] [id number] [facility] [place] [address] Dec, [facility] [address] [id number] [facility] [place] [address] Dec, [facility] [address] [id number] [address] [place] [address], [place] [address] Dec, [facility] [address] [id number] [address] [place] [address], [place] [address] Nov, [facility] [address] [id number] [address] [place] [address], [place] [address] Nov, [facility] [address] [id number] [address] [place] [address], [place] [address] Nov, [facility] [address] [id number] [address] [place] [address], [place] [address] Nov, [facility] [address] [id number] [address] [place] [address], [place] [address] Nov, [facility] [address] [id number] [address] [place] [address], [place] [address] Nov, [facility] [address] [id number] [address] [place] [address], [place] [address] Nov, [facility] [address] [id number] [address] [place] [address], [place] [address] Nov, [facility] [address] [id number] [address] [place] [address], [place] [address] Nov, [facility] [address] [id number] [address] [place] [address], [place] [address] Nov, [facility] [address] [id number] [address] [place] [address], [place] [address] Nov, [facility] [address] [id number] [address] [place] [address], [place] [address] Oct, [facility] [address] [id number] [address] [place] [address], [place] [address] Oct, [facility] [address] [facility] [id number] [address] [place] [id number] Oct, [facility] [address] [facility] [id number] [address] [place] [id number] Apr, IMMUNIZATIONS No Known Immunizations SOCIAL HISTORY Never Assessed REASON FOR VISIT PLAN OF CARE VITAL SIGNS MEDICATIONS Unknown Medications RESULTS No Results PROCEDURES Procedure Date Ordered Result Body Site X-RAY EXAM OF KNEE, 1 OR 2 December 08, 2013 DRAIN/INJECT, JOINT/BURSA December 08, 2013 INSTRUCTIONS MEDICATIONS ADMINISTERED No Known Medications [...]
--- OUTSIDE RECORDS SUMMARY | 2019-11-23 06:20 | XMS REPORT ---
Author Author Pal YIN Organization [facility] Address [address] [place] [address] Care Team Providers Care Engineering Tech Name Role Phone PREETHI YIN Unavailable PROBLEMS Type Condition ICD9-CM Code SSU75-EF Code Onset Dates Condition S tatus SNOMED Code Problem Lumbago with sciatica, right side M54.41 Active [id number] Problem Other chronic pain G89.29 Active 8 8142509 Problem Bilateral primary osteoarthritis of knee M17.0 Active 452174855 Problem Chronic pain syndrome G89.4 Active 318824569 Problem Anxiety disorder, unspecified F41.9 Active 883119004 Problem Lumbago with sciatica, left side M54.42 Active [id number] ALLERGIES No Information ENCOUNTERS Encounter Location Date Diagnosis [facility] [address] [id number] [address] [place] [id number] Dec, Chronic pain syndrome G89.4 [facility] [address] [address] Dec, Chronic pain syndrome G89.4 and Anxiety disorder, unspecified F41.9 [facility] [id number] [place] [phone] Nov, [facility] [address] [id number] [address] [place] [phone] Oct, [facility] [address] [id number] [address] [place] [phone] Oct, [facility] [address] [id number] [address] [place] [id number] Oct, Acute bronchitis, unspecifie d organism J20.9 and Nasal congestion R09.81 [facility] [address] [id number] [address] [place] [phone] September, [facility] [address] [id number] [address] [place] [address] Aug, Lumbago with sciatica, left side M54.42 ; Lumbago with sciatica, right side M54.41 and Other chronic pain G89.29 [facility] [address] [id number] [address] [place] [phone] Aug, [facility] [address] [id number] [address] [place] [id number] Jul, [facility] [address] [id number] [address] [place] [phone] Jun, [facility] [address] [id number] [address] [place] [phone] May, [facility] [address] [id number] [address] [place] [address] Apr, Pain in right knee M25.561 [facility] [address] [id number] [address] [place] [address] Apr, Pain in right knee M25.561 [facility] [address] [id number] [address] [place] [address] Mar, Pain in right knee M25.561 [facility] [address] [id number] [address] [place] [phone] Mar, [facility] [address] [id number] [address] [place] [phone] Mar, Chronic pain syndrome G89.4 [facility] [address] [id number] [address] [place] [phone] Feb, [facility] [address] [id number] [address] [place] [phone] Feb, [facility] [address] [id number] [address] [place] [phone] Dec, [facility] [address] [id number] [address] [place] [phone] Dec, [facility] [address] [id number] [address] [place] [phone] Nov, Chronic pain syndrome G89.4 [facility] [address] [id number] [address] [place] [phone] Nov, [facility] [address] [id number] [address] [place] [phone] Oct, [facility] [address] [id number] [address] [place] [phone] Oct, [facility] [address] [id number] [address] [place] [phone] Oct, [facility] [address] [facility] [id number] [address] [place] [phone] Oct, Allergic reaction to drug, s ubsequent encounter T78.40XD [facility] [address] [id number] [address] [place] [phone] September, [facility] [address] [id number] [address] [place] [phone] September, [facility] [address] [facility] [id number] [address] [place] [phone] September, Low back pain radiating to l ower extremity M54.5 [facility] [address] [id number] [address] [place] [phone] Aug, [facility] [address] [id number] [address] [place] [phone] Aug, [facility] [address] [id number] [address] [place] [id number] Aug, [facility] [address] [id number] [address] [place] [phone] Aug, [facility] [address] [id number] [address] [place] [phone] Aug, Incisional infection, initia l encounter T81.4XXA [facility] [address] [id number] [address] [place] [phone] Aug, [facility] [address] [id number] [address] [place] [phone] Jul, [facility] [address] [id number] [address] [place] [phone] Jul, [facility] [address] [id number] [address] [place] [phone] Jul, Chronic pain syndrome G89.4 [facility] [address] [address] Jul, Pre-op evaluation Z01.818 [facility] [address] [address] Jul, [facility] [address] [address] Jun, Anxiety disorder, unspecifie d F41.9 and Chronic pain syndrome G89.4 [facility] [address] [id number] [address] [place] [phone] Jun, [facility] [address] [id number] [address] [place] [phone] Jun, [facility] [address] [id number] [address] [place] [phone] Jun, [facility] [address] [id number] [address] [place] [phone] Jun, [facility] [address] [id number] [address] [place] [phone] Jun, Lumbar neuritis M54.16 [facility] [address] [id number] [address] [place] [phone] May, [facility] [address] [id number] [address] [place] [phone] May, [facility] [address] [id number] [address] [place] [id number] May, Encounter for therapeutic dr heather level monitoring Z51.81 ; Encounter for immunization Z23 and Chronic pain syndrome G89.4 [facility] [address] [id number] [address] [place] [phone] May, Lumbar neuritis M54.16 [facility] [address] [id number] [address] [place] [phone] May, [facility] [address] [id number] [address] [place] [address] Apr, Lumbar neuritis M54.16 [facility] [address] [id number] [address] [place] [phone] Apr, [facility] [address] [id number] [address] [place] [id number] Mar, Lumbar neuritis M54.16 [facility] [address] [id number] [address] [place] [phone] Mar, [facility] [address] [id number] [address] [place] [phone] Mar, [facility] [address] [id number] [address] [place] [phone] Feb, Lumbar neuritis M54.16 [facility] [address] [id number] [address] [place] [phone] Feb, Lumbar neuritis M54.16 [facility] [address] [id number] [address] [place] [phone] Feb, [facility] [address] [id number] [address] [place] [phone] Feb, [facility] [address] [id number] [address] [place] [phone] Jan, [facility] [address] [id number] [address] [place] [phone] Jan, Peroneal tendonitis of left lower extremity M76.72 [facility] [address] [id number] [address] [place] [id number] 20 Jan, 2017 Lumbar neuritis M54.16 [facility] [address] [id number] [address] [place] [phone] Jan, [facility] [address] [id number] [address] [place] [id number] Dec, Lumbar neuritis M54.16 [facility] [address] [id number] [address] [place] [phone] Dec, [facility] [address] [id number] [address] [place] [address] Dec, Pain in right knee M25.561 ; Lumbar neuritis M54.16 and Cervical neuritis M54.12 [facility] [address] [id number] [address] [place] [phone] Dec, [facility] [address] [id number] [address] [place] [id number] Dec, [facility] [address] [id number] [address] [place] [phone] Nov, Lumbar neuritis M54.16 [facility] [address] [id number] [address] [place] [phone] Nov, Bilateral primary osteoarthr itis of knee M17.0 [facility] [address] [id number] [address] [place] [phone] Nov, [facility] [address] [id number] [address] [place] [phone] Nov, Bronchitis J40 and Plantar f asciitis M72.2 [facility] [address] [id number] [address] [place] [phone] Nov, [facility] [address] [id number] [address] [place] [id number] 30 Oct, 2016 Lumbar neuritis M54.16 [facility] [address] [id number] [address] [place] [id number] 30 Oct, 2016 Lumbar neuritis M54.16 [facility] [address] [id number] [address] [place] [phone] Oct, Lumbar neuritis M54.16 [facility] [address] [id number] [address] [place] [phone] 26 Oct, 2016 Plantar fasciitis M72.2 and Pain in right knee M25.561 [facility] [address] [id number] [address] [place] [id number] 16 Oct, 2016 Lumbar neuritis M54.16 ; Cer vical neuritis M54.12 ; Other specified abdominal hernia without obstruction or gangrene K45.8 ; Heel spur, left M77.32 ; Plantar fasciitis M72.2 and Pain in right knee M25.561 [facility] [address] [id number] [address] [place] [id number] 13 Oct, 2016 [facility] [address] [id number] [address] [place] [id number] 14 Aug, 2014 [facility] [address] [id number] [address] [place] [id number] Aug, [facility] [address] [id number] [address] [place] [phone] Apr, [facility] [address] [id number] [address] [place] [phone] Apr, [facility] [address] [id number] [address] [place] [phone] Mar, [facility] [address] [id number] [address] [place] [phone] Mar, [facility] [address] [id number] [address] [place] [phone] Feb, [facility] [address] [id number] [address] [place] [address], [place] [address] 10 Feb, 2014 [facility] [address] [id number] [address] [place] [address], [place] [address] Feb, [facility] [address] [id number] [address] [place] [phone] Feb, 2013 [facility] [address] [id number] [address] [place] [phone] Feb, 2013 [facility] [address] [id number] [address] [place] [address], [place] [address] Feb, 2013 [facility] [address] [id number] [address] [place] [phone] Feb, 2013 [facility] [address] [id number] [address] [place] [address], [place] [address] Feb, 2013 [facility] [address] [id number] [address] [place] [phone] 30 Sep, 2013 [facility] [address] [id number] [address] [place] [address], [place] [address] 30 Sep, 2013 [facility] [address] [id number] [address] [place] [address], [place] [address] 30 Sep, 2013 [facility] [address] [id number] [address] [place] [id number] 30 Sep, 2013 [facility] [address] [id number] [address] [place] [phone] 30 Sep, 2013 [facility] [address] [id number] [address] [place] [address], [place] [address] 30 Sep, 2013 [facility] [address] [id number] [address] [place] [address], [place] [address] 26 Sep, 2013 [facility] [address] [id number] [address] [place] [phone] 26 Sep, 2013 [facility] [address] [id number] [facility] [place] [address] 22 Sep, 2013 [facility] [address] [id number] [facility] [place] [address] 22 Sep, 2013 [facility] [address] [id number] [facility] [place] [address] 16 Sep, 2013 [facility] [address] [id number] [address] [place] [address], [place] [address] 16 Sep, 2013 [facility] [address] [id number] [address] [place] [address], [place] [address] 16 Sep, 2013 [facility] [address] [id number] [address] [place] [address], [place] [address] 16 Sep, 2013 [facility] [address] [id number] [address] [place] [address], [place] [address] 12 Sep, 2013 [facility] [address] [id number] [address] [place] [address], [place] [address] 12 Sep, 2013 [facility] [address] [id number] [address] [place] [address], [place] [address] 12 Sep, 2013 [facility] [address] [id number] [address] [place] [address], [place] [address] 12 Sep, 2013 [facility] [address] [id number] [address] [place] [address], [place] [address] 09 Sep, 2013 [facility] [address] [id number] [address] [place] [address], [place] [address] 09 Sep, 2013 [facility] [address] [id number] [address] [place] [address], [place] [address] 09 Sep, 2013 [facility] [address] [id number] [address] [place] [address], [place] [address] 09 Sep, 2013 [facility] [address] [id number] [address] [place] [address], [place] [address] 05 Sep, 2013 [facility] [address] [id number] [address] [place] [address], [place] [address] Jan, [facility] [address] [id number] [facility] [place] [address] Dec, [facility] [address] [id number] [address] [place] [address], [place] [address] Dec, [facility] [address] [id number] [facility] [place] [address] Dec, [facility] [address] [id number] [address] [place] [address], [place] [address] Dec, [facility] [address] [id number] [address] [place] [address], [place] [address] Dec, [facility] [address] [id number] [address] [place] [address], [place] [address] Dec, [facility] [address] [id number] [address] [place] [address], [place] [address] Dec, [facility] [address] [id number] [address] [place] [address], [place] [address] Dec, [facility] [address] [id number] [address] [place] [address], [place] [address] Dec, [facility] [address] [id number] [address] [place] [address], [place] [address] Dec, [facility] [address] [id number] [address] [place] [address], [place] [address] Dec, [facility] [address] [id number] [address] [place] [address], [place] [address] Dec, [facility] [address] [id number] [address] [place] [address], [place] [address] Dec, [facility] [address] [id number] [address] [place] [address], [place] [address] Dec, [facility] [address] [id number] [address] [place] [address], [place] [address] Dec, [facility] [address] [id number] [address] [place] [address], [place] [address] Dec, [facility] [address] [id number] [facility] [place] [address] Dec, [facility] [address] [id number] [address] [place] [address], [place] [address] Dec, [facility] [address] [id number] [address] [place] [address], [place] [address] Dec, [facility] [address] [id number] [address] [place] [address], [place] [address] Nov, [facility] [address] [id number] [address] [place] [address], [place] [address] Nov, [facility] [address] [id number] [address] [place] [address], [place] [address] Nov, [facility] [address] [id number] [address] [place] [address], [place] [address] Nov, [facility] [address] [id number] [address] [place] [address], [place] [address] Nov, [facility] [address] [id number] [address] [place] [address], [place] [address] Nov, [facility] [address] [id number] [address] [place] [address], [place] [address] Nov, [facility] [address] [id number] [address] [place] [address], [place] [address] Nov, [facility] [address] [id number] [address] [place] [address], [place] [address] Nov, [facility] [address] [id number] [address] [place] [address], [place] [address] Nov, [facility] [address] [id number] [address] [place] [address], [place] [address] Nov, [facility] [address] [id number] [address] [place] [address], [place] [address] Oct, [facility] [address] [id number] [address] [place] [phone] Oct, [facility] [address] [facility] [id number] [address] [place] [address] Oct, [facility] [address] [facility] [id number] [address] [place] [id number] Apr, IMMUNIZATIONS No Known Immunizations SOCIAL HISTORY Never Assessed REASON FOR VISIT Durand-on hold PLAN OF CARE VITAL SIGNS MEDICATIONS Medication Instructions Dosage Frequency Start Date End Date Duration S tatus Hydrocodone-Acetaminophen 10-325 MG Orally 2 times a day 1 tablet a s needed 12h Jul, 28 days Active RESULTS No Results PROCEDURES [...]
--- OUTSIDE RECORDS SUMMARY | 2019-11-23 06:20 | XMS REPORT ---
Author Author Pal CANCHOLA Organization [facility] Address [address] [place] [address] Care Team Providers Care Operations Lieutenant Name Role Phone SHANITA CANCHOLA Unavailable PROBLEMS Type Condition ICD9-CM Code VOQ08-RD Code Onset Dates Condition S tatus SNOMED Code Problem Lumbago with sciatica, right side M54.41 Active 660491184932903 Problem Other chronic pain G89.29 Active 8 5960985 Problem Bilateral primary osteoarthritis of knee M17.0 Active 725198083 Problem Chronic pain syndrome G89.4 Active 027693083 Problem Anxiety disorder, unspecified F41.9 Active 849959592 Problem Lumbago with sciatica, left side M54.42 Active [id number] ALLERGIES No Information ENCOUNTERS Encounter Location Date Diagnosis [facility] [address] [facility] [id number] [address] [place] [phone] Dec, [facility] [address] [place] [id number] [place] [phone] Nov, [facility] [address] [facility] [id number] [address] [place] [phone] Oct, [facility] [address] [id number] [address] [place] [phone] Oct, [facility] [address] [facility] [id number] [address] [place] [phone] Oct, Acute bronchitis, unspecifie d organism J20.9 and Nasal congestion R09.81 [facility] [address] [facility] [id number] [address] [place] [phone] September, [facility] [address] [facility] [id number] [address] [place] [phone] Aug, Lumbago with sciatica, left side M54.42 ; Lumbago with sciatica, right side M54.41 and Other chronic pain G89.29 [facility] [address] [id number] [address] [place] [phone] Aug, [facility] [address] [id number] [address] [place] [phone] Jul, [facility] [address] [id number] [address] [place] [phone] Jun, [facility] [address] [id number] [address] [place] [address] May, [facility] [address] [id number] [address] [place] [address] Apr, Pain in right knee M25.561 [facility] [address] [id number] [address] [place] [address] Apr, Pain in right knee M25.561 [facility] [address] [id number] [address] [place] [address] Mar, Pain in right knee M25.561 [facility] [address] [id number] [address] [place] [phone] Mar, [facility] [address] [id number] [address] [place] [phone] Mar, Chronic pain syndrome G89.4 [facility] [address] [id number] [address] [place] [phone] Feb, [facility] [address] [id number] [address] [place] [address] Feb, [facility] [address] [id number] [address] [place] [phone] Dec, [facility] [address] [id number] [address] [place] [phone] Dec, [facility] [address] [id number] [address] [place] [phone] Nov, Chronic pain syndrome G89.4 [facility] [address] [id number] [address] [place] [phone] Nov, [facility] [address] [facility] [id number] [address] [place] [phone] Oct, [facility] [address] [id number] [address] [place] [phone] Oct, [facility] [address] [facility] [id number] [address] [place] [phone] Oct, [facility] [address] [facility] [id number] [address] [place] [phone] Oct, Allergic reaction to drug, s ubsequent encounter T78.40XD [facility] [address] [facility] [id number] [address] [place] [phone] September, [facility] [address] [facility] [id number] [address] [place] [phone] September, [facility] [address] [facility] [id number] [address] [place] [address] September, Low back pain radiating to l ower extremity M54.5 [facility] [address] [facility] [id number] [address] [place] [phone] Aug, [facility] [address] [facility] [id number] [address] [place] [phone] Aug, [facility] [address] [facility] [id number] [address] [place] [phone] Aug, [facility] [address] [facility] [id number] [address] [place] [phone] Aug, [facility] [address] [facility] [id number] [address] [place] [phone] Aug, Incisional infection, initia l encounter T81.4XXA [facility] [address] [facility] [id number] [address] [place] [phone] Aug, [facility] [address] [facility] [id number] [address] [place] [phone] Jul, [facility] [address] [facility] [id number] [address] [place] [phone] Jul, [facility] [address] [facility] [id number] [address] [place] [phone] Jul, Chronic pain syndrome G89.4 [facility] [address] [facility] [id number] [address] [place] [phone] Jul, Pre-op evaluation Z01.818 [facility] [address] [facility] [id number] [address] [place] [phone] Jul, [facility] [address] [facility] [id number] [address] [place] [phone] Jun, Anxiety disorder, unspecifie d F41.9 and Chronic pain syndrome G89.4 [facility] [address] [facility] [id number] [address] [place] [phone] Jun, [facility] [address] [facility] [id number] [address] [place] [phone] Jun, [facility] [address] [facility] [id number] [address] [place] [phone] Jun, [facility] [address] [facility] [id number] [address] [place] [phone] Jun, [facility] [address] [facility] [id number] [address] [place] [address] Jun, Lumbar neuritis M54.16 [facility] [address] [facility] [id number] [address] [place] [phone] May, [facility] [address] [facility] [id number] [address] [place] [phone] May, [facility] [address] [facility] [id number] [address] [place] [phone] May, Encounter for therapeutic dr heather level monitoring Z51.81 ; Encounter for immunization Z23 and Chronic pain syndrome G89.4 [facility] [address] [id number] [address] [place] [address] May, Lumbar neuritis M54.16 [facility] [address] [id number] [address] [place] [phone] May, [facility] [address] [id number] [address] [place] [phone] Apr, Lumbar neuritis M54.16 [facility] [address] [id number] [address] [place] [phone] Apr, [facility] [address] [id number] [address] [place] [address] Mar, Lumbar neuritis M54.16 [facility] [address] [id number] [address] [place] [id number] Mar, [facility] [address] [id number] [address] [place] [phone] Mar, [facility] [address] [id number] [address] [place] [phone] Feb, Lumbar neuritis M54.16 [facility] [address] [id number] [address] [place] [phone] Feb, Lumbar neuritis M54.16 [facility] [address] [id number] [address] [place] [phone] Feb, [facility] [address] [id number] [address] [place] [phone] Feb, [facility] [address] [id number] [address] [place] [phone] Jan, [facility] [address] [id number] [address] [place] [phone] Jan, Peroneal tendonitis of left lower extremity M76.72 [facility] [address] [id number] [address] [place] [id number] 20 Jan, 2017 Lumbar neuritis M54.16 [facility] [address] [id number] [address] [place] [phone] Jan, [facility] [address] [id number] [address] [place] [phone] Dec, Lumbar neuritis M54.16 [facility] [address] [id number] [address] [place] [phone] Dec, [facility] [address] [id number] [address] [place] [phone] Dec, Pain in right knee M25.561 ; Lumbar neuritis M54.16 and Cervical neuritis M54.12 [facility] [address] [id number] [address] [place] [phone] Dec, [facility] [address] [id number] [address] [place] [phone] Dec, [facility] [address] [id number] [address] [place] [phone] Nov, Lumbar neuritis M54.16 [facility] [address] [id number] [address] [place] [phone] Nov, Bilateral primary osteoarthr itis of knee M17.0 [facility] [address] [id number] [address] [place] [phone] Nov, [facility] [address] [id number] [address] [place] [phone] Nov, Bronchitis J40 and Plantar f asciitis M72.2 [facility] [address] [id number] [address] [place] [phone] Nov, [facility] [address] [id number] [address] [place] [phone] Oct, Lumbar neuritis M54.16 [facility] [address] [id number] [address] [place] [phone] 30 Oct, 2016 Lumbar neuritis M54.16 [facility] [address] [id number] [address] [place] [phone] 28 Oct, 2016 Lumbar neuritis M54.16 [facility] [address] [id number] [address] [place] [id number] 26 Oct, 2016 Plantar fasciitis M72.2 and Pain in right knee M25.561 [facility] [address] [id number] [address] [place] [phone] 16 Oct, 2016 Lumbar neuritis M54.16 ; Cer vical neuritis M54.12 ; Other specified abdominal hernia without obstruction or gangrene K45.8 ; Heel spur, left M77.32 ; Plantar fasciitis M72.2 and Pain in right knee M25.561 [facility] [address] [id number] [address] [place] [phone] 13 Oct, 2016 [facility] [address] [id number] [address] [place] [id number] 14 Aug, 2014 [facility] [address] [id number] [address] [place] [phone] Aug, [facility] [address] [id number] [address] [place] [phone] Apr, [facility] [address] [id number] [address] [place] [phone] Apr, [facility] [address] [id number] [address] [place] [phone] Mar, [facility] [address] [id number] [address] [place] [phone] Mar, [facility] [address] [id number] [address] [place] [phone] Feb, [facility] [address] [id number] [address] [place] [phone] Feb, [facility] [address] [id number] [address] [place] [address], [place] [id number] 09 Feb, 2013 [facility] [address] [id number] [address] [place] [address], [place] [address] Feb, 2013 [facility] [address] [id number] [address] [place] [address], [place] [address] Feb, 2013 [facility] [address] [id number] [address] [place] [address], [place] [id number] Feb, 2013 [facility] [address] [id number] [address] [place] [address], [place] [address] Feb, 2013 [facility] [address] [id number] [address] [place] [address], [place] [address] Feb, 2013 [facility] [address] [id number] [address] [place] [address], [place] [address] 30 Sep, 2013 [facility] [address] [id number] [address] [place] [address], [place] [address] 30 Sep, 2013 [facility] [address] [id number] [address] [place] [address], [place] [address] 30 Sep, 2013 [facility] [address] [id number] [address] [place] [address], [place] [address] 30 Sep, 2013 [facility] [address] [id number] [address] [place] [address], [place] [address] 30 Sep, 2013 [facility] [address] [id number] [address] [place] [address], [place] [address] 30 Sep, 2013 [facility] [address] [id number] [address] [place] [address], [place] [id number] 26 Sep, 2013 [facility] [address] [id number] [address] [place] [address], [place] [address] 26 Sep, 2013 [facility] [address] [id number] [address] [place] [address], [place] [address] 22 Sep, 2013 [facility] [address] [id number] [address] [place] [address], [place] [address] 22 Sep, 2013 [facility] [address] [id number] [facility] [place] [address] 16 Sep, 2013 [facility] [address] [id number] [address] [place] [address], [place] [address] 16 Sep, 2013 [facility] [address] [id number] [address] [place] [address], [place] [address] 16 Sep, 2013 [facility] [address] [id number] [address] [place] [address], [place] [address] 16 Sep, 2013 [facility] [address] [id number] [address] [place] [address], [place] [address] 12 Sep, 2013 [facility] [address] [id number] [address] [place] [address], [place] [address] 12 Jan, 2013 [facility] [address] [id number] [address] [place] [address], [place] [address] 12 Jan, 2013 [facility] [address] [id number] [address] [place] [address], [place] [address] 12 Jan, 2013 [facility] [address] [id number] [address] [place] [address], [place] [address] 09 Sep, 2013 [facility] [address] [id number] [address] [place] [address], [place] [address] 09 Sep, 2013 [facility] [address] [id number] [address] [place] [address], [place] [address] 09 Sep, 2013 [facility] [address] [id number] [address] [place] [address], [place] [address] 09 Sep, 2013 [facility] [address] [id number] [address] [place] [address], [place] [address] 05 Sep, 2013 [facility] [address] [id number] [address] [place] [address], [place] [address] 05 Jan, 2013 [facility] [address] [id number] [address] [place] [address], [place] [address] Dec, 2013 [facility] [address] [id number] [address] [place] [address], [place] [address] Dec, [facility] [address] [id number] [facility] [address] Dec, [facility] [address] [id number] [facility] [place] [address] Dec, [facility] [address] [id number] [address] [place] [address], [place] [address] Dec, [facility] [address] [id number] [address] [place] [address], [place] [address] Dec, [facility] [address] [id number] [address] [place] [address], [place] [address] Dec, [facility] [address] [id number] [address] [place] [address], [place] [address] Dec, [facility] [address] [id number] [address] [place] [address], [place] [address] Dec, [facility] [address] [id number] [address] [place] [address], [place] [address] Dec, [facility] [address] [id number] [address] [place] [address], [place] [address] Dec, [facility] [address] [id number] [address] [place] [address], [place] [address] Dec, [facility] [address] [id number] [address] [place] [address], [place] [address] Dec, [facility] [address] [id number] [address] [place] [address], [place] [address] Dec, [facility] [address] [id number] [address] [place] [address], [place] [address] Dec, [facility] [address] [id number] [address] [place] [address], [place] [address] Dec, [facility] [address] [id number] [address] [place] [address], [place] [address] Dec, [facility] [address] [id number] [facility] [id number] Dec, [facility] [address] [id number] [facility] [place] [id number] Dec, [facility] [address] [id number] [facility] [place] [id number] Nov, [facility] [address] [id number] [address] [place] [address], [place] [address] Nov, [facility] [address] [id number] [address] [place] [address], [place] [address] Nov, [facility] [address] [id number] [address] [place] [address], [place] [id number] Nov, [facility] [address] [id number] [address] [place] [address], [place] [id number] Nov, [facility] [address] [id number] [address] [place] [address], [place] [id number] Nov, [facility] [address] [id number] [address] [place] [address], [place] [id number] Nov, [facility] [address] [id number] [address] [place] [address], [place] [id number] Nov, [facility] [address] [id number] [address] [place] [address], [place] [address] Nov, [facility] [address] [id number] [address] [place] [address], [place] [id number] Nov, [facility] [address] [id number] [address] [place] [address], [place] [id number] Nov, [facility] [address] [id number] [address] [place] [address], [place] [id number] Oct, [facility] [address] [id number] [address] [place] [address], [place] [address] Oct, [facility] [address] [id number] [address] [place] [address], [place] [address] Oct, [facility] [address] [facility] [id number] [address] [place] [address] Apr, IMMUNIZATIONS No Known Immunizations SOCIAL HISTORY [...]
--- OUTSIDE RECORDS SUMMARY | 2019-11-23 06:20 | XMS REPORT ---
Author Author Pal Lopez Organization [facility] Address [address] [place] [address] Care Team Providers Care Delivery Route Driver Name Role Phone JANE Lopez Unavailable PROBLEMS Type Condition ICD9-CM Code [id number] Code Onset Dates Condition S tatus SNOMED Code Problem Lumbago with sciatica, right side M54.41 Active [id number] Problem Other chronic pain G89.29 Active 8 6235051 Problem Bilateral primary osteoarthritis of knee M17.0 Active 053575724 Problem Chronic pain syndrome G89.4 Active 177249552 Problem Anxiety disorder, unspecified F41.9 Active 360198942 Problem Lumbago with sciatica, left side M54.42 Active 353332802 ALLERGIES No Information ENCOUNTERS Encounter Location Date Diagnosis [facility] [address] [id number] [address] [place] [address] Dec, Chronic pain syndrome G89.4 and Anxiety disorder, unspecified F41.9 [facility] [address] [id number] [address] [place] [address] Nov, [facility] [address] [facility] [id number] [address] [place] [address] Oct, [facility] [address] [facility] [id number] [address] [place] [address] Oct, [facility] [address] [facility] [id number] [address] [place] [address] Oct, Acute bronchitis, unspecifie d organism J20.9 and Nasal congestion R09.81 [facility] [address] [facility] [id number] [address] [place] [address] September, [facility] [address] [id number] [address] [place] [address] Aug, Lumbago with sciatica, left side M54.42 ; Lumbago with sciatica, right side M54.41 and Other chronic pain G89.29 [facility] [address] [id number] [address] [place] [address] Aug, [facility] [address] [id number] [address] [place] [address] Jul, [facility] [address] [id number] [address] [place] [address] Jun, [facility] [address] [id number] [address] [place] [address] May, [facility] [address] [id number] [address] [place] [address] Apr, Pain in right knee M25.561 [facility] [address] [id number] [address] [place] [address] Apr, Pain in right knee M25.561 [facility] [address] [id number] [address] [place] [address] Mar, Pain in right knee M25.561 [facility] [address] [id number] [address] [place] [address] Mar, [facility] [address] [id number] [address] [place] [address] Mar, Chronic pain syndrome G89.4 [facility] [address] [id number] [address] [place] [address] Feb, [facility] [address] [id number] [address] [place] [address] Feb, [facility] [address] [id number] [address] [place] [address] Dec, [facility] [address] [id number] [address] [place] [address] Dec, [facility] [address] [id number] [address] [place] [address] Nov, Chronic pain syndrome G89.4 [facility] [address] [id number] [address] [place] [address] Nov, [facility] [address] [facility] [id number] [address] [place] [address] Oct, [facility] [address] [id number] [address] [place] [address] Oct, [facility] [address] [id number] [address] [place] [address] Oct, [facility] [address] [facility] [id number] [address] [place] [address] Oct, Allergic reaction to drug, s ubsequent encounter T78.40XD [facility] [address] [facility] [id number] [address] [place] [address] September, [facility] [address] [id number] [address] [place] [address] September, [facility] [address] [facility] [id number] [address] [place] [address] September, Low back pain radiating to l ower extremity M54.5 [facility] [address] [facility] [id number] [address] [place] [address] Aug, [facility] [address] [id number] [address] [place] [address] Aug, [facility] [address] [facility] [id number] [address] [place] [address] Aug, [facility] [address] [facility] [id number] [address] [place] [address] Aug, [facility] [address] [facility] [id number] [address] [place] [address] Aug, Incisional infection, initia l encounter T81.4XXA [facility] [address] [id number] [address] [place] [address] Aug, [facility] [address] [facility] [id number] [address] [place] [address] Jul, [facility] [address] [id number] [address] [place] [address] Jul, [facility] [address] [id number] [address] [place] [address] Jul, Chronic pain syndrome G89.4 [facility] [address] [id number] [address] [place] [address] Jul, Pre-op evaluation Z01.818 [facility] [address] [facility] [id number] [address] [place] [address] Jul, [facility] [address] [facility] [id number] [address] [place] [address] Jun, Anxiety disorder, unspecifie d F41.9 and Chronic pain syndrome G89.4 [facility] [address] [facility] [id number] [address] [place] [address] Jun, [facility] [address] [facility] [id number] [address] [place] [address] Jun, [facility] [address] [facility] [id number] [address] [place] [address] Jun, [facility] [address] [facility] [id number] [address] [place] [address] Jun, [facility] [address] [facility] [id number] [address] [place] [address] Jun, Lumbar neuritis M54.16 [facility] [address] [facility] [id number] [address] [place] [address] May, [facility] [address] [facility] [id number] [address] [place] [address] May, [facility] [address] [id number] [address] [place] [address] May, Encounter for therapeutic dr ug level monitoring Z51.81 ; Encounter for immunization Z23 and Chronic pain syndrome G89.4 [facility] [address] [id number] [address] [place] [address] May, Lumbar neuritis M54.16 [facility] [address] [id number] [address] [place] [address] May, [facility] [address] [id number] [address] [place] [address] Apr, Lumbar neuritis M54.16 [facility] [address] [id number] [address] [place] [address] Apr, [facility] [address] [id number] [address] [place] [address] Mar, Lumbar neuritis M54.16 [facility] [address] [id number] [address] [place] [id number] Mar, [facility] [address] [id number] [address] [place] [address] Mar, [facility] [address] [id number] [address] [place] [address] Feb, Lumbar neuritis M54.16 [facility] [address] [id number] [address] [place] [address] Feb, Lumbar neuritis M54.16 [facility] [address] [id number] [address] [place] [address] Feb, [facility] [address] [id number] [address] [place] [address] Feb, [facility] [address] [id number] [address] [place] [address] Jan, [facility] [address] [id number] [address] [place] [address] Jan, Peroneal tendonitis of left lower extremity M76.72 [facility] [address] [id number] [address] [place] [address] 20 Jan, 2017 Lumbar neuritis M54.16 [facility] [address] [id number] [address] [place] [address] 12 Jan, 2017 [facility] [address] [id number] [address] [place] [address] Dec, Lumbar neuritis M54.16 [facility] [address] [id number] [address] [place] [address] Dec, [facility] [address] [id number] [address] [place] [address] Dec, Pain in right knee M25.561 ; Lumbar neuritis M54.16 and Cervical neuritis M54.12 [facility] [address] [id number] [address] [place] [address] Dec, [facility] [address] [id number] [address] [place] [address] Dec, [facility] [address] [id number] [address] [place] [address] Nov, Lumbar neuritis M54.16 [facility] [address] [id number] [address] [place] [address] Nov, Bilateral primary osteoarthr itis of knee M17.0 [facility] [address] [id number] [address] [place] [address] Nov, [facility] [address] [id number] [address] [place] [address] Nov, Bronchitis J40 and Plantar f asciitis M72.2 [facility] [address] [id number] [address] [place] [address] Nov, [facility] [address] [id number] [address] [place] [address] Oct, Lumbar neuritis M54.16 [facility] [address] [id number] [address] [place] [address] 30 Oct, 2016 Lumbar neuritis M54.16 [facility] [address] [id number] [address] [place] [address] 28 Oct, 2016 Lumbar neuritis M54.16 [facility] [address] [id number] [address] [place] [id number] 26 Oct, 2016 Plantar fasciitis M72.2 and Pain in right knee M25.561 [facility] [address] [id number] [address] [place] [address] 16 Oct, 2016 Lumbar neuritis M54.16 ; Cer vical neuritis M54.12 ; Other specified abdominal hernia without obstruction or gangrene K45.8 ; Heel spur, left M77.32 ; Plantar fasciitis M72.2 and Pain in right knee M25.561 [facility] [address] [id number] [address] [place] [id number] 13 Oct, 2016 [facility] [address] [id number] [address] [place] [id number] 14 Aug, 2014 [facility] [address] [id number] [address] [place] [address] Aug, [facility] [address] [id number] [address] [place] [address] Apr, [facility] [address] [id number] [address] [place] [phone] Apr, [facility] [address] [id number] [address] [place] [address] Mar, [facility] [address] [id number] [address] [place] [address] Mar, [facility] [address] [id number] [address] [place] [phone] Feb, [facility] [address] [id number] [address] [place] [id number] 10 Feb, 2013 [facility] [address] [id number] [address] [place] [address], [place] [address] 09 Feb, 2013 [facility] [address] [id number] [address] [place] [phone] Feb, 2013 [facility] [address] [id number] [address] [place] [address], [place] [address] Feb, 2013 [facility] [address] [id number] [address] [place] [phone] Feb, 2013 [facility] [address] [id number] [address] [place] [address], [place] [address] Feb, 2013 [facility] [address] [id number] [address] [place] [address], [place] [address] Feb, 2013 [facility] [address] [id number] [address] [place] [id number] 30 Sep, 2013 [facility] [address] [id number] [address] [place] [address], [place] [address] 30 Sep, 2013 [facility] [address] [id number] [address] [place] [address], [place] [address] 30 Sep, 2013 [facility] [address] [id number] [address] [place] [phone] 30 Sep, 2013 [facility] [address] [id number] [address] [place] [address], [place] [address] 30 Sep, 2013 [facility] [address] [id number] [address] [place] [address] 30 Sep, 2013 [facility] [address] [id number] [address] [place] [address], [place] [address] 26 Sep, 2013 [facility] [address] [id number] [address] [place] [address], [place] [address] 26 Sep, 2013 [facility] [address] [id number] [address] [place] [address], [place] [address] 22 Sep, 2013 [facility] [address] [id number] [facility] [place] [address] 22 Sep, 2013 [facility] [address] [id number] [facility] [address] 16 Sep, 2013 [facility] [address] [id number] [facility] [place] [address] 16 Sep, 2013 [facility] [address] [id number] [address] [place] [address], [place] [address] 16 Sep, 2013 [facility] [address] [id number] [facility] [place] [address] 16 Sep, 2013 [facility] [address] [id number] [address] [place] [address], [place] [address] 12 Sep, 2013 [facility] [address] [id number] [address] [place] [address], [place] [address] 12 Sep, 2013 [facility] [address] [id number] [address] [place] [address], [place] [address] 12 Sep, 2013 [facility] [address] [id number] [address] [place] [address], [place] [address] 12 Sep, 2013 [facility] [address] [id number] [address] [place] [address], [place] [address] 09 Sep, 2013 [facility] [address] [id number] [address] [place] [address], [place] [address] 09 Sep, 2013 [facility] [address] [id number] [address] [place] [address], [place] [address] 09 Sep, 2013 [facility] [address] [id number] [address] [place] [address], [place] [address] 09 Sep, 2013 [facility] [address] [id number] [address] [place] [address], [place] [address] 05 Sep, 2013 [facility] [address] [id number] [address] [place] [address], [place] [address] 05 Sep, 2013 [facility] [address] [id number] [address] [place] [address], [place] [address] Dec, [facility] [address] [id number] [facility] [address] Dec, [facility] [address] [id number] [facility] [address] Dec, [facility] [address] [id number] [facility] [address] Dec, [facility] [address] [id number] [facility] [address] Dec, [facility] [address] [id number] [facility] [address] Dec, [facility] [address] [id number] [address] [place] [address], [place] [address] Dec, [facility] [address] [id number] [address] [place] [address], [place] [address] Dec, [facility] [address] [id number] [address] [place] [address], [place] [address] Dec, [facility] [address] [id number] [address] [place] [address], [place] [address] Dec, [facility] [address] [id number] [address] [place] [address], [place] [address] Dec, [facility] [address] [id number] [address] [place] [address], [place] [address] Dec, [facility] [address] [id number] [address] [place] [address], [place] [address] Dec, [facility] [address] [id number] [address] [place] [address], [place] [address] Dec, [facility] [address] [id number] [address] [place] [address], [place] [address] Dec, [facility] [address] [id number] [facility] [address] Dec, [facility] [address] [id number] [facility] [address] Dec, [facility] [address] [id number] [address] [place] [address], [place] [address] Dec, [facility] [address] [id number] [address] [place] [address], [place] [address] Dec, [facility] [address] [id number] [address] [place] [address], [place] [address] Nov, [facility] [address] [id number] [address] [place] [address], [place] [address] Nov, [facility] [address] [id number] [address] [place] [address], [place] [address] Nov, [facility] [address] [id number] [address] [place] [address], [place] [address] Nov, [facility] [address] [id number] [address] [place] [address], [place] [address] Nov, [facility] [address] [id number] [address] [place] [address], [place] [address] Nov, [facility] [address] [id number] [address] [place] [address], [place] [address] Nov, [facility] [address] [id number] [address] [place] [address], [place] [address] Nov, [facility] [address] [id number] [address] [place] [address], [place] [address] Nov, [facility] [address] [id number] [address] [place] [address], [place] [address] Nov, [facility] [address] [id number] [address] [place] [address], [place] [address] Nov, [facility] [address] [id number] [address] [place] [address], [place] [address] Oct, [facility] [address] [id number] [address] [place] [address], [place] [address] Oct, [facility] [address] [facility] [id number] [address] [place] [id number] Oct, [facility] [address] [facility] [id number] [address] [place] [id number] Apr, IMMUNIZATIONS No Known Immunizations SOCIAL HISTORY [...]
--- OUTSIDE RECORDS SUMMARY | 2019-11-23 06:20 | XMS REPORT ---
Author Author Pal Lopez Organization [facility] Address [address] [place] [address] Care Team Providers Care Twister Frame Tender Name Role Phone JANE Lopez Unavailable PROBLEMS Type Condition ICD9-CM Code [id number] Code Onset Dates Condition S tatus SNOMED Code Problem Lumbago with sciatica, right side M54.41 Active [id number] Problem Other chronic pain G89.29 Active 8 2851479 Problem Bilateral primary osteoarthritis of knee M17.0 Active [id number] Problem Chronic pain syndrome G89.4 Active 171017067 Problem Anxiety disorder, unspecified F41.9 Active [id number] Problem Lumbago with sciatica, left side M54.42 Active [id number] ALLERGIES No Information ENCOUNTERS Encounter Location Date Diagnosis [facility] [address] [id number] Dec, Chronic pain syndrome G89.4 [facility] [address] [address] Dec, Chronic pain syndrome G89.4 and Anxiety disorder, unspecified F41.9 [facility] [address] [id number] [address] [place] [id number] Nov, [facility] [address] [id number] [address] [place] [id number] Oct, [facility] [address] [id number] Oct, [facility] [address] [id number] [address] [place] [id number] Oct, Acute bronchitis, unspecifie d organism J20.9 and Nasal congestion R09.81 [facility] [address] [id number] [address] [place] [id number] September, [facility] [address] [id number] [address] [place] [id number] Aug, Lumbago with sciatica, left side M54.42 ; Lumbago with sciatica, right side M54.41 and Other chronic pain G89.29 [facility] [address] [id number] [address] [place] [id number] Aug, [facility] [address] [id number] [address] [place] [id number] Jul, [facility] [address] [id number] [address] [place] [id number] Jun, [facility] [address] [id number] [address] [place] [id number] May, [facility] [address] [id number] [address] [place] [id number] Apr, Pain in right knee M25.561 [facility] [address] [id number] [address] [place] [id number] Apr, Pain in right knee M25.561 [facility] [address] [id number] [address] [place] [id number] Mar, Pain in right knee M25.561 [facility] [address] [id number] [address] [place] [id number] Mar, [facility] [address] [id number] [address] [place] [id number] Mar, Chronic pain syndrome G89.4 [facility] [address] [id number] [address] [place] [id number] Feb, [facility] [address] [id number] [address] [place] [id number] Feb, [facility] [address] [id number] [address] [place] [id number] Dec, [facility] [address] [id number] [address] [place] [id number] Dec, [facility] [address] [id number] [address] [place] [id number] Nov, Chronic pain syndrome G89.4 [facility] [address] [id number] [address] [place] [id number] Nov, [facility] [address] [id number] [address] [place] [id number] Oct, [facility] [address] [id number] [address] [place] [id number] Oct, [facility] [address] [id number] [address] [place] [id number] Oct, [facility] [address] [facility] [id number] [address] [place] [id number] Oct, Allergic reaction to drug, s ubsequent encounter T78.40XD [facility] [address] [id number] [address] [place] [id number] September, [facility] [address] [id number] [address] [place] [id number] September, [facility] [address] [facility] [id number] [address] [place] [id number] September, Low back pain radiating to l ower extremity M54.5 [facility] [address] [id number] [address] [place] [id number] Aug, [facility] [address] [id number] [address] [place] [id number] Aug, [facility] [address] [facility] [id number] [address] [place] [id number] Aug, [facility] [address] [facility] [id number] [address] [place] [id number] Aug, [facility] [address] [id number] [address] [place] [id number] Aug, Incisional infection, initia l encounter T81.4XXA [facility] [address] [id number] Aug, [facility] [address] [address] Jul, [facility] [address] [address] Jul, [facility] [address] [address] Jul, Chronic pain syndrome G89.4 [facility] [address] [id number] Jul, Pre-op evaluation Z01.818 [facility] [address] [address] Jul, [facility] [address] [id number] Jun, Anxiety disorder, unspecifie d F41.9 and Chronic pain syndrome G89.4 [facility] [address] [id number] [address] [place] [id number] Jun, [facility] [address] [id number] Jun, [facility] [address] [id number] [address] [place] [id number] Jun, [facility] [address] [address] Jun, [facility] [address] [id number] 08 Jun, 2017 Lumbar neuritis M54.16 [facility] [address] [id number] [address] [place] [id number] May, [facility] [address] [id number] [address] [place] [id number] May, [facility] [address] [id number] [address] [place] [id number] May, Encounter for therapeutic dr heather level monitoring Z51.81 ; Encounter for immunization Z23 and Chronic pain syndrome G89.4 [facility] [address] [id number] [address] [place] [id number] May, Lumbar neuritis M54.16 [facility] [address] [id number] [address] [place] [id number] May, [facility] [address] [id number] [address] [place] [id number] Apr, Lumbar neuritis M54.16 [facility] [address] [id number] [address] [place] [id number] Apr, [facility] [address] [id number] [address] [place] [id number] Mar, Lumbar neuritis M54.16 [facility] [address] [id number] [address] [place] [id number] Mar, [facility] [address] [id number] [address] [place] [id number] Mar, [facility] [address] [id number] [address] [place] [id number] Feb, Lumbar neuritis M54.16 [facility] [address] [id number] [address] [place] [id number] Feb, Lumbar neuritis M54.16 [facility] [address] [id number] [address] [place] [id number] Feb, [facility] [address] [id number] [address] [place] [id number] Feb, [facility] [address] [id number] [address] [place] [id number] Jan, [facility] [address] [id number] [address] [place] [id number] 22 Jan, 2017 Peroneal tendonitis of left lower extremity M76.72 [facility] [address] [id number] [address] [place] [id number] 20 Jan, 2017 Lumbar neuritis M54.16 [facility] [address] [id number] [address] [place] [id number] 12 Jan, 2017 [facility] [address] [id number] [address] [place] [id number] 2016 Lumbar neuritis M54.16 [facility] [address] [id number] [address] [place] [id number] Dec, [facility] [address] [id number] [address] [place] [id number] Dec, Pain in right knee M25.561 ; Lumbar neuritis M54.16 and Cervical neuritis M54.12 [facility] [address] [id number] [address] [place] [id number] Dec, [facility] [address] [id number] [address] [place] [id number] Dec, [facility] [address] [id number] [address] [place] [id number] Nov, Lumbar neuritis M54.16 [facility] [address] [id number] [address] [place] [id number] Nov, Bilateral primary osteoarthr itis of knee M17.0 [facility] [address] [id number] [address] [place] [id number] Nov, [facility] [address] [id number] [address] [place] [id number] Nov, Bronchitis J40 and Plantar f asciitis M72.2 [facility] [address] [id number] [address] [place] [id number] Nov, [facility] [address] [id number] [address] [place] [id number] 30 Oct, 2016 Lumbar neuritis M54.16 [facility] [address] [id number] [address] [place] [id number] 30 Oct, 2016 Lumbar neuritis M54.16 [facility] [address] [id number] [address] [place] [id number] Oct, Lumbar neuritis M54.16 [facility] [address] [id number] [address] [place] [id number] 26 Oct, 2016 Plantar fasciitis M72.2 and Pain in right knee M25.561 [facility] [address] [id number] [address] [place] [id number] 16 Oct, 2016 Lumbar neuritis M54.16 ; Cer vical neuritis M54.12 ; Other specified abdominal hernia without obstruction or gangrene K45.8 ; Heel spur, left M77.32 ; Plantar fasciitis M72.2 and Pain in right knee M25.561 [facility] [address] [id number] [address] [place] [id number] 13 Oct, 2016 [facility] [address] [id number] [address] [place] [id number] 14 Aug, 2014 [facility] [address] [id number] [address] [place] [id number] Aug, [facility] [address] [id number] [address] [place] [id number] Apr, [facility] [address] [id number] [address] [place] [id number] Apr, [facility] [address] [id number] [address] [place] [phone] Mar, [facility] [address] [id number] [address] [place] [phone] Mar, [facility] [address] [id number] [address] [place] [address], [place] [id number] 10 Feb, 2013 [facility] [address] [id number] [address] [place] [address], [place] [id number] Feb, 2013 [facility] [address] [id number] [address] [place] [address], [place] [id number] Feb, 2013 [facility] [address] [id number] [address] [place] [address], [place] [id number] Feb, 2013 [facility] [address] [id number] [address] [place] [address], [place] [id number] Feb, 2013 [facility] [address] [id number] [address] [place] [address], [place] [id number] Feb, 2013 [facility] [address] [id number] [address] [place] [address], [place] [id number] Feb, 2013 [facility] [address] [id number] [address] [place] [address], [place] [id number] Feb, 2013 [facility] [address] [id number] [address] [place] [address], [place] [id number] 30 Sep, 2013 [facility] [address] [id number] [address] [place] [address], [place] [id number] 30 Sep, 2013 [facility] [address] [id number] [address] [place] [address], [place] [id number] 30 Sep, 2013 [facility] [address] [id number] [address] [place] [address], [place] [id number] 30 Sep, 2013 [facility] [address] [id number] [address] [place] [address], [place] [id number] 30 Sep, 2013 [facility] [address] [id number] [address] [place] [address], [place] [id number] 30 Sep, 2013 [facility] [address] [id number] [address] [place] [address], [place] [id number] 26 Sep, 2013 [facility] [address] [id number] [address] [place] [address], [place] [id number] 26 Sep, 2013 [facility] [address] [id number] [facility] [id number] 22 Sep, 2013 [facility] [address] [id number] [address] [place] [address], [place] [id number] 22 Sep, 2013 [facility] [address] [id number] [address] [place] [address], [place] [id number] 16 Sep, 2013 [facility] [address] [id number] [address] [place] [address], [place] [id number] 16 Sep, 2013 [facility] [address] [id number] [address] [place] [address], [place] [id number] 16 Sep, 2013 [facility] [address] [id number] [address] [place] [address], [place] [id number] 16 Sep, 2013 [facility] [address] [id number] [address] [place] [address], [place] [id number] 12 Sep, 2013 [facility] [address] [id number] [address] [place] [address], [place] [id number] 12 Sep, 2013 [facility] [address] [id number] [address] [place] [address], [place] [address] 12 Sep, 2013 [facility] [address] [id number] [address] [place] [address], [place] [id number] 12 Sep, 2013 [facility] [address] [id number] [address] [place] [address], [place] [id number] 09 Sep, 2013 [facility] [address] [id number] [address] [place] [address], [place] [address] 09 Sep, 2013 [facility] [address] [id number] [address] [place] [address], [place] [address] 09 Sep, 2013 [facility] [address] [id number] [address] [place] [address], [place] [id number] 09 Sep, 2013 [facility] [address] [id number] [address] [place] [address], [place] [id number] 05 Sep, 2013 [facility] [address] [id number] [address] [place] [address], [place] [id number] Jan, [facility] [address] [id number] [facility] [id number] Dec, [facility] [address] [id number] [address] [place] [address], [place] [address] Dec, [facility] [address] [id number] [address] [place] [address], [place] [address] Dec, [facility] [address] [id number] [address] [place] [address], [place] [id number] Dec, [facility] [address] [id number] [address] [place] [address], [place] [id number] Dec, [facility] [address] [id number] [address] [place] [address], [place] [id number] Dec, [facility] [address] [id number] [address] [place] [address], [place] [address] Dec, [facility] [address] [id number] [address] [place] [address], [place] [address] Dec, [facility] [address] [id number] [address] [place] [address], [place] [id number] Dec, [facility] [address] [id number] [address] [place] [address], [place] [id number] Dec, [facility] [address] [id number] [address] [place] [address], [place] [address] Dec, [facility] [address] [id number] [address] [place] [address], [place] [id number] Dec, [facility] [address] [id number] [address] [place] [address], [place] [address] Dec, [facility] [address] [id number] [address] [place] [address], [place] [id number] Dec, [facility] [address] [id number] [address] [place] [address], [place] [id number] Dec, [facility] [address] [id number] [facility] [address] Dec, [facility] [address] [id number] [facility] [id number] Dec, [facility] [address] [id number] [facility] [address] Dec, [facility] [address] [id number] [facility] [address] Dec, [facility] [address] [id number] [facility] [address] Nov, [facility] [address] [id number] [address] [place] [address], [place] [id number] Nov, [facility] [address] [id number] [address] [place] [address], [place] [address] Nov, [facility] [address] [id number] [address] [place] [address], [place] [address] Nov, [facility] [address] [id number] [address] [place] [address], [place] [id number] Nov, [facility] [address] [id number] [address] [place] [address], [place] [id number] Nov, [facility] [address] [id number] [address] [place] [address], [place] [id number] Nov, [facility] [address] [id number] [address] [place] [address], [place] [address] Nov, [facility] [address] [id number] [address] [place] [address], [place] [id number] Nov, [facility] [address] [id number] [address] [place] [address], [place] [address] Nov, [facility] [address] [id number] [address] [place] [address], [place] [address] Nov, [facility] [address] [id number] [address] [place] [address], [place] [address] Oct, [facility] [address] [facility] [id number] [address] [place] [id number] Oct, [facility] [address] [facility] [id number] [address] [place] [id number] Oct, [facility] [address] [facility] [id number] [address] [place] [id number] Apr, IMMUNIZATIONS No Known Immunizations SOCIAL HISTORY [...]
--- OUTSIDE RECORDS SUMMARY | 2019-11-23 06:20 | XMS REPORT ---
Author Author Pal Lopez Organization [facility] Address [address] [place] [address] Care Team Providers Care Database Marketing Specialist Name Role Phone JANE Lopez Unavailable PROBLEMS Type Condition ICD9-CM Code [id number] Code Onset Dates Condition S tatus SNOMED Code Problem Lumbago with sciatica, right side M54.41 Active [id number] Problem Other chronic pain G89.29 Active 8 4121598 Problem Bilateral primary osteoarthritis of knee M17.0 Active 064287175 Problem Chronic pain syndrome G89.4 Active 850018549 Problem Anxiety disorder, unspecified F41.9 Active 901529028 Problem Lumbago with sciatica, left side M54.42 Active [id number] ALLERGIES No Information ENCOUNTERS Encounter Location Date Diagnosis [facility] [address] [id number] [address] [place] [id number] Dec, Chronic pain syndrome G89.4 and Anxiety disorder, unspecified F41.9 [facility] [address] [id number] [address] [place] [id number] Nov, [facility] [address] [facility] [place] [id number] [address] [place] [phone] Oct, [facility] [address] [facility] [place] [id number] [address] [place] [id number] Oct, [facility] [address] [facility] [place] [id number] [address] [place] [address] Oct, Acute bronchitis, unspecifie d organism J20.9 and Nasal congestion R09.81 [facility] [address] [facility] [place] [id number] [address] [place] [address] September, [facility] [address] [id number] [address] [place] [phone] Aug, Lumbago with sciatica, left side M54.42 ; Lumbago with sciatica, right side M54.41 and Other chronic pain G89.29 [facility] [address] [id number] [address] [place] [address] Aug, [facility] [address] [id number] [address] [place] [address] Jul, [facility] [address] [id number] [address] [place] [address] Jun, [facility] [address] [id number] [address] [place] [address] May, [facility] [address] [id number] [address] [place] [address] Apr, Pain in right knee M25.561 [facility] [address] [id number] [address] [place] [address] Apr, Pain in right knee M25.561 [facility] [address] [id number] [address] [place] [address] Mar, Pain in right knee M25.561 [facility] [address] [id number] [address] [place] [phone] Mar, [facility] [address] [id number] [address] [place] [phone] Mar, Chronic pain syndrome G89.4 [facility] [address] [id number] [address] [place] [address] Feb, [facility] [address] [id number] [address] [place] [address] Feb, [facility] [address] [id number] [address] [place] [phone] Dec, [facility] [address] [id number] [address] [place] [address] Dec, [facility] [address] [id number] [address] [place] [address] Nov, Chronic pain syndrome G89.4 [facility] [address] [id number] [address] [place] [id number] Nov, [facility] [address] [facility] [place] [id number] [address] [place] [id number] Oct, [facility] [address] [id number] [address] [place] [address] Oct, [facility] [address] [id number] [address] [place] [phone] Oct, [facility] [address] [facility] [place] [id number] [address] [place] [address] Oct, Allergic reaction to drug, s ubsequent encounter T78.40XD [facility] [address] [facility] [place] [id number] [address] [place] [phone] September, [facility] [address] [id number] [address] [place] [phone] September, [facility] [address] [facility] [place] [id number] [address] [place] [address] September, Low back pain radiating to l ower extremity M54.5 [facility] [address] [facility] [place] [id number] [address] [place] [phone] Aug, [facility] [address] [id number] [address] [place] [address] Aug, [facility] [address] [facility] [place] [id number] [address] [place] [phone] Aug, [facility] [address] [facility] [place] [id number] [address] [place] [phone] Aug, [facility] [address] [facility] [place] [id number] [address] [place] [id number] Aug, Incisional infection, initia l encounter T81.4XXA [facility] [address] [id number] [address] [place] [phone] Aug, [facility] [address] [facility] [place] [id number] [address] [place] [phone] Jul, [facility] [address] [id number] [address] [place] [phone] Jul, [facility] [address] [id number] [address] [place] [id number] Jul, Chronic pain syndrome G89.4 [facility] [address] [id number] [address] [place] [phone] Jul, Pre-op evaluation Z01.818 [facility] [address] [facility] [place] [id number] [address] [place] [phone] Jul, [facility] [address] [facility] [place] [id number] [address] [place] [phone] Jun, Anxiety disorder, unspecifie d F41.9 and Chronic pain syndrome G89.4 [facility] [address] [facility] [place] [id number] [address] [place] [phone] Jun, [facility] [address] [facility] [place] [id number] [address] [place] [phone] Jun, [facility] [address] [facility] [place] [id number] [address] [place] [id number] Jun, [facility] [address] [facility] [place] [id number] [address] [place] [phone] Jun, [facility] [address] [facility] [place] [id number] [address] [place] [phone] Jun, Lumbar neuritis M54.16 [facility] [address] [facility] [place] [id number] [address] [place] [phone] May, [facility] [address] [facility] [place] [id number] [address] [place] [phone] May, [facility] [address] [id number] [address] [place] [address] May, Encounter for therapeutic dr ug level monitoring Z51.81 ; Encounter for immunization Z23 and Chronic pain syndrome G89.4 [facility] [address] [id number] [address] [place] [phone] May, Lumbar neuritis M54.16 [facility] [address] [id number] [address] [place] [phone] May, [facility] [address] [id number] [address] [place] [address] Apr, Lumbar neuritis M54.16 [facility] [address] [id number] [address] [place] [phone] Apr, [facility] [address] [id number] [address] [place] [phone] Mar, Lumbar neuritis M54.16 [facility] [address] [id number] [address] [place] [phone] Mar, [facility] [address] [id number] [address] [place] [phone] Mar, [facility] [address] [id number] [address] [place] [phone] Feb, Lumbar neuritis M54.16 [facility] [address] [id number] [address] [place] [phone] Feb, Lumbar neuritis M54.16 [facility] [address] [id number] [address] [place] [phone] Feb, [facility] [address] [id number] [address] [place] [phone] Feb, [facility] [address] [id number] [address] [place] [phone] Jan, [facility] [address] [id number] [address] [place] [id number] Jan, Peroneal tendonitis of left lower extremity M76.72 [facility] [address] [id number] [address] [place] [id number] 20 Jan, 2017 Lumbar neuritis M54.16 [facility] [address] [id number] [address] [place] [address] 12 Jan, 2017 [facility] [address] [id number] [address] [place] [address] Dec, Lumbar neuritis M54.16 [facility] [address] [id number] [address] [place] [phone] Dec, [facility] [address] [id number] [address] [place] [address] Dec, Pain in right knee M25.561 ; Lumbar neuritis M54.16 and Cervical neuritis M54.12 [facility] [address] [id number] [address] [place] [phone] Dec, [facility] [address] [id number] [address] [place] [phone] Dec, [facility] [address] [id number] [address] [place] [phone] Nov, Lumbar neuritis M54.16 [facility] [address] [id number] [address] [place] [phone] Nov, Bilateral primary osteoarthr itis of knee M17.0 [facility] [address] [id number] [address] [place] [phone] Nov, [facility] [address] [id number] [address] [place] [phone] Nov, Bronchitis J40 and Plantar f asciitis M72.2 [facility] [address] [id number] [address] [place] [phone] Nov, [facility] [address] [id number] [address] [place] [phone] Oct, Lumbar neuritis M54.16 [facility] [address] [id number] [address] [place] [id number] 30 Oct, 2016 Lumbar neuritis M54.16 [facility] [address] [id number] [address] [place] [phone] 28 Oct, 2016 Lumbar neuritis M54.16 [facility] [address] [id number] [address] [place] [phone] 26 Oct, 2016 Plantar fasciitis M72.2 and Pain in right knee M25.561 [facility] [address] [id number] [address] [place] [phone] 16 Oct, 2016 Lumbar neuritis M54.16 ; Cer vical neuritis M54.12 ; Other specified abdominal hernia without obstruction or gangrene K45.8 ; Heel spur, left M77.32 ; Plantar fasciitis M72.2 and Pain in right knee M25.561 [facility] [address] [id number] [address] [place] [phone] 13 Oct, 2016 [facility] [address] [id number] [address] [place] [phone] 14 Aug, 2014 [facility] [address] [id number] [address] [place] [phone] Aug, [facility] [address] [id number] [address] [place] [phone] Apr, [facility] [address] [id number] [address] [place] [phone] Apr, [facility] [address] [id number] [address] [place] [phone] Mar, [facility] [address] [id number] [address] [place] [phone] Mar, [facility] [address] [id number] [address] [place] [phone] Feb, [facility] [address] [id number] [address] [place] [phone] 10 Feb, 2013 [facility] [address] [id number] [address] [place] [address], [place] [address] 09 Feb, 2013 [facility] [address] [id number] [address] [place] [phone] Feb, 2013 [facility] [address] [id number] [address] [place] [address], [place] [address] Feb, 2013 [facility] [address] [id number] [address] [place] [phone] Feb, 2013 [facility] [address] [id number] [address] [place] [address], [place] [address] Feb, 2013 [facility] [address] [id number] [address] [place] [address], [place] [address] Feb, 2013 [facility] [address] [id number] [address] [place] [phone] 30 Sep, 2013 [facility] [address] [id number] [address] [place] [address], [place] [address] 30 Sep, 2013 [facility] [address] [id number] [address] [place] [address], [place] [address] 30 Sep, 2013 [facility] [address] [id number] [address] [place] [phone] 30 Sep, 2013 [facility] [address] [id number] [address] [place] [address], [place] [address] 30 Sep, 2013 [facility] [address] [id number] [address] [place] [phone] 30 Sep, 2013 [facility] [address] [id number] [address] [place] [address], [place] [address] 26 Sep, 2013 [facility] [address] [id number] [address] [place] [address], [place] [address] 26 Sep, 2013 [facility] [address] [id number] [address] [place] [address], [place] [address] 22 Sep, 2013 [facility] [address] [id number] [facility] [place] [address] 22 Sep, 2013 [facility] [address] [id number] [facility] [place] [address] 16 Sep, 2013 [facility] [address] [id number] [facility] [place] [address] 16 Sep, 2013 [facility] [address] [id number] [address] [place] [address], [place] [address] 16 Sep, 2013 [facility] [address] [id number] [facility] [place] [address] 16 Sep, 2013 [facility] [address] [id number] [address] [place] [address], [place] [address] 12 Sep, 2013 [facility] [address] [id number] [address] [place] [address], [place] [address] 12 Sep, 2013 [facility] [address] [id number] [address] [place] [address], [place] [address] 12 Sep, 2013 [facility] [address] [id number] [address] [place] [address], [place] [address] 12 Sep, 2013 [facility] [address] [id number] [address] [place] [address], [place] [address] 09 Sep, 2013 [facility] [address] [id number] [address] [place] [address], [place] [address] 09 Sep, 2013 [facility] [address] [id number] [address] [place] [address], [place] [address] 09 Sep, 2013 [facility] [address] [id number] [address] [place] [address], [place] [address] 09 Sep, 2013 [facility] [address] [id number] [address] [place] [address], [place] [address] 05 Sep, 2013 [facility] [address] [id number] [address] [place] [address], [place] [address] 05 Sep, 2013 [facility] [address] [id number] [address] [place] [address], [place] [address] Dec, [facility] [address] [id number] [facility] [place] [address] Dec, [facility] [address] [id number] [facility] [place] [address] Dec, [facility] [address] [id number] [facility] [place] [address] Dec, [facility] [address] [id number] [facility] [place] [address] Dec, [facility] [address] [id number] [facility] [place] [address] Dec, [facility] [address] [id number] [address] [place] [address], [place] [address] Dec, [facility] [address] [id number] [address] [place] [address], [place] [address] Dec, [facility] [address] [id number] [address] [place] [address], [place] [address] Dec, [facility] [address] [id number] [address] [place] [address], [place] [address] Dec, [facility] [address] [id number] [address] [place] [address], [place] [address] Dec, [facility] [address] [id number] [address] [place] [address], [place] [address] Dec, [facility] [address] [id number] [address] [place] [address], [place] [address] Dec, [facility] [address] [id number] [address] [place] [address], [place] [address] Dec, [facility] [address] [id number] [address] [place] [address], [place] [address] Dec, [facility] [address] [id number] [facility] [place] [address] Dec, [facility] [address] [id number] [facility] [place] [address] Dec, [facility] [address] [id number] [address] [place] [address], [place] [address] Dec, [facility] [address] [id number] [address] [place] [address], [place] [address] Dec, [facility] [address] [id number] [address] [place] [address], [place] [address] Nov, [facility] [address] [id number] [address] [place] [address], [place] [address] Nov, [facility] [address] [id number] [address] [place] [address], [place] [address] Nov, [facility] [address] [id number] [address] [place] [address], [place] [address] Nov, [facility] [address] [id number] [address] [place] [address], [place] [address] Nov, [facility] [address] [id number] [address] [place] [address], [place] [address] Nov, [facility] [address] [id number] [address] [place] [address], [place] [address] Nov, [facility] [address] [id number] [address] [place] [address], [place] [address] Nov, [facility] [address] [id number] [address] [place] [address], [place] [address] Nov, [facility] [address] [id number] [address] [place] [address], [place] [address] Nov, [facility] [address] [id number] [address] [place] [address], [place] [address] Nov, [facility] [address] [id number] [address] [place] [address], [place] [address] Oct, [facility] [address] [id number] [address] [place] [address], [place] [address] Oct, [facility] [address] [facility] [place] [id number] [address] [place] [id number] Oct, [facility] [address] [facility] [place] [id number] [address] [place] [id number] Apr, IMMUNIZATIONS No Known Immunizations SOCIAL HISTORY [...]
--- OUTSIDE RECORDS SUMMARY | 2019-11-23 06:20 | XMS REPORT ---
Author Author Pal PIERSON Organization [facility] Address [address] [place] [address] Care Team Providers Care Drapery Inspector Name Role Phone ALEX PIERSON Unavailable PROBLEMS Type Condition ICD9-CM Code DDH73-KE Code Onset Dates Condition S tatus SNOMED Code Problem Lumbago with sciatica, right side M54.41 Active [id number] Problem Other chronic pain G89.29 Active 8 1901390 Problem Bilateral primary osteoarthritis of knee M17.0 Active 031071140 Problem Chronic pain syndrome G89.4 Active 186782147 Problem Anxiety disorder, unspecified F41.9 Active 390288310 Problem Lumbago with sciatica, left side M54.42 Active [id number] ALLERGIES No Information ENCOUNTERS Encounter Location Date Diagnosis [facility] [address] [facility] [id number] [address] [place] [address] Dec, [facility] [address] [facility] [id number] [address] [place] [address] Nov, [facility] [address] [facility] [id number] [address] [place] [address] Oct, [facility] [address] [place] [id number] [address] [place] [address] Oct, [facility] [address] [facility] [id number] [address] [place] [address] Oct, Acute bronchitis, unspecifie d organism J20.9 and Nasal congestion R09.81 [facility] [address] [facility] [id number] [address] [place] [address] September, [facility] [address] [facility] [id number] [address] [place] [address] Aug, Lumbago with sciatica, left side M54.42 ; Lumbago with sciatica, right side M54.41 and Other chronic pain G89.29 [facility] [address] [id number] [address] [place] [address] Aug, [facility] [address] [id number] [address] [place] [address] Jul, [facility] [address] [id number] [address] [place] [address] Jun, [facility] [address] [id number] [address] [place] [address] May, [facility] [address] [id number] [address] [place] [address] Apr, Pain in right knee M25.561 [facility] [address] [id number] [address] [place] [address] Apr, Pain in right knee M25.561 [facility] [address] [id number] [address] [place] [address] Mar, Pain in right knee M25.561 [facility] [address] [id number] [address] [place] [address] Mar, [facility] [address] [id number] [address] [place] [address] Mar, Chronic pain syndrome G89.4 [facility] [address] [id number] [address] [place] [address] Feb, [facility] [address] [id number] [address] [place] [address] Feb, [facility] [address] [id number] [address] [place] [address] Dec, [facility] [address] [id number] [address] [place] [address] Dec, [facility] [address] [id number] [address] [place] [address] Nov, Chronic pain syndrome G89.4 [facility] [address] [id number] [address] [place] [address] Nov, [facility] [address] [facility] [id number] [address] [place] [address] Oct, [facility] [address] [id number] [address] [place] [address] Oct, [facility] [address] [facility] [id number] [address] [place] [address] Oct, [facility] [address] [facility] [id number] [address] [place] [address] Oct, Allergic reaction to drug, s ubsequent encounter T78.40XD [facility] [address] [facility] [id number] [address] [place] [address] September, [facility] [address] [facility] [id number] [address] [place] [address] September, [facility] [address] [facility] [id number] [address] [place] [address] September, Low back pain radiating to l ower extremity M54.5 [facility] [address] [facility] [id number] [address] [place] [address] Aug, [facility] [address] [facility] [id number] [address] [place] [address] Aug, [facility] [address] [facility] [id number] [address] [place] [address] Aug, [facility] [address] [facility] [id number] [address] [place] [address] Aug, [facility] [address] [facility] [id number] [address] [place] [address] Aug, Incisional infection, initia l encounter T81.4XXA [facility] [address] [facility] [id number] [address] [place] [address] Aug, [facility] [address] [facility] [id number] [address] [place] [address] Jul, [facility] [address] [facility] [id number] [address] [place] [address] Jul, [facility] [address] [facility] [id number] [address] [place] [address] Jul, Chronic pain syndrome G89.4 [facility] [address] [facility] [id number] [address] [place] [address] Jul, Pre-op evaluation Z01.818 [facility] [address] [facility] [id number] [address] [place] [address] Jul, [facility] [address] [facility] [id number] [address] [place] [address] Jun, Anxiety disorder, unspecifie d F41.9 and Chronic pain syndrome G89.4 [facility] [address] [facility] [id number] [address] [place] [address] Jun, [facility] [address] [facility] [id number] [address] [place] [address] Jun, [facility] [address] [facility] [id number] [address] [place] [address] Jun, [facility] [address] [facility] [id number] [address] [place] [address] Jun, [facility] [address] [facility] [id number] [address] [place] [address] Jun, Lumbar neuritis M54.16 [facility] [address] [facility] [id number] [address] [place] [address] May, [facility] [address] [facility] [id number] [address] [place] [address] May, [facility] [address] [facility] [id number] [address] [place] [address] May, Encounter for therapeutic dr heather level monitoring Z51.81 ; Encounter for immunization Z23 and Chronic pain syndrome G89.4 [facility] [address] [id number] [address] [place] [address] May, Lumbar neuritis M54.16 [facility] [address] [id number] [address] [place] [address] May, [facility] [address] [id number] [address] [place] [address] Apr, Lumbar neuritis M54.16 [facility] [address] [id number] [address] [place] [address] Apr, [facility] [address] [id number] [address] [place] [address] Mar, Lumbar neuritis M54.16 [facility] [address] [id number] [address] [place] [address] Mar, [facility] [address] [id number] [address] [place] [address] Mar, [facility] [address] [id number] [address] [place] [address] Feb, Lumbar neuritis M54.16 [facility] [address] [id number] [address] [place] [address] Feb, Lumbar neuritis M54.16 [facility] [address] [id number] [address] [place] [address] Feb, [facility] [address] [id number] [address] [place] [address] Feb, [facility] [address] [id number] [address] [place] [address] Jan, [facility] [address] [id number] [address] [place] [address] Jan, Peroneal tendonitis of left lower extremity M76.72 [facility] [address] [id number] [address] [place] [address] 20 Jan, 2017 Lumbar neuritis M54.16 [facility] [address] [id number] [address] [place] [address] Jan, [facility] [address] [id number] [address] [place] [address] Dec, Lumbar neuritis M54.16 [facility] [address] [id number] [address] [place] [address] Dec, [facility] [address] [id number] [address] [place] [address] Dec, Pain in right knee M25.561 ; Lumbar neuritis M54.16 and Cervical neuritis M54.12 [facility] [address] [id number] [address] [place] [address] Dec, [facility] [address] [id number] [address] [place] [address] Dec, [facility] [address] [id number] [address] [place] [address] Nov, Lumbar neuritis M54.16 [facility] [address] [id number] [address] [place] [address] Nov, Bilateral primary osteoarthr itis of knee M17.0 [facility] [address] [id number] [address] [place] [address] Nov, [facility] [address] [id number] [address] [place] [address] Nov, Bronchitis J40 and Plantar f asciitis M72.2 [facility] [address] [id number] [address] [place] [address] Nov, [facility] [address] [id number] [address] [place] [address] Oct, Lumbar neuritis M54.16 [facility] [address] [id number] [address] [place] [address] 30 Oct, 2016 Lumbar neuritis M54.16 [facility] [address] [id number] [address] [place] [address] 28 Oct, 2016 Lumbar neuritis M54.16 [facility] [address] [id number] [address] [place] [address] 26 Oct, 2016 Plantar fasciitis M72.2 and Pain in right knee M25.561 [facility] [address] [id number] [address] [place] [address] 16 Oct, 2016 Lumbar neuritis M54.16 ; Cer vical neuritis M54.12 ; Other specified abdominal hernia without obstruction or gangrene K45.8 ; Heel spur, left M77.32 ; Plantar fasciitis M72.2 and Pain in right knee M25.561 [facility] [address] [id number] [address] [place] [address] 13 Oct, 2016 [facility] [address] [id number] [address] [place] [address] 14 Aug, 2014 [facility] [address] [id number] [address] [place] [address] Aug, [facility] [address] [id number] [address] [place] [address] Apr, [facility] [address] [id number] [address] [place] [address] Apr, [facility] [address] [id number] [address] [place] [address] Mar, [facility] [address] [id number] [address] [place] [address] Mar, [facility] [address] [id number] [address] [place] [address] Feb, [facility] [address] [id number] [address] [place] [address] Feb, [facility] [address] [id number] [address] [place] [address], [place] [address] 09 Feb, 2013 [facility] [address] [id number] [address] [place] [address], [place] [address] Feb, 2013 [facility] [address] [id number] [address] [place] [address], [place] [address] Feb, 2013 [facility] [address] [id number] [address] [place] [address], [place] [address] Feb, 2013 [facility] [address] [id number] [address] [place] [address], [place] [address] Feb, 2013 [facility] [address] [id number] [address] [place] [address], [place] [address] Feb, 2013 [facility] [address] [id number] [address] [place] [address], [place] [address] 30 Sep, 2013 [facility] [address] [id number] [address] [place] [address], [place] [address] 30 Sep, 2013 [facility] [address] [id number] [address] [place] [address], [place] [address] 30 Sep, 2013 [facility] [address] [id number] [address] [place] [address], [place] [address] 30 Sep, 2013 [facility] [address] [id number] [address] [place] [address], [place] [address] 30 Sep, 2013 [facility] [address] [id number] [address] [place] [address], [place] [address] 30 Sep, 2013 [facility] [address] [id number] [address] [place] [address], [place] [address] 26 Sep, 2013 [facility] [address] [id number] [address] [place] [address], [place] [address] 26 Sep, 2013 [facility] [address] [id number] [address] [place] [address], [place] [address] 22 Sep, 2013 [facility] [address] [id number] [address] [place] [address], [place] [address] 22 Sep, 2013 [facility] [address] [id number] [facility] [place] [address] 16 Sep, 2013 [facility] [address] [id number] [address] [place] [address], [place] [address] 16 Sep, 2013 [facility] [address] [id number] [address] [place] [address], [place] [address] 16 Sep, 2013 [facility] [address] [id number] [address] [place] [address], [place] [address] 16 Sep, 2013 [facility] [address] [id number] [address] [place] [address], [place] [address] 12 Sep, 2013 [facility] [address] [id number] [address] [place] [address], [place] [address] 12 Jan, 2013 [facility] [address] [id number] [address] [place] [address], [place] [address] 12 Jan, 2013 [facility] [address] [id number] [address] [place] [address], [place] [address] 12 Jan, 2013 [facility] [address] [id number] [address] [place] [address], [place] [address] 09 Sep, 2013 [facility] [address] [id number] [address] [place] [address], [place] [address] 09 Sep, 2013 [facility] [address] [id number] [address] [place] [address], [place] [address] 09 Sep, 2013 [facility] [address] [id number] [address] [place] [address], [place] [address] 09 Sep, 2013 [facility] [address] [id number] [address] [place] [address], [place] [address] 05 Sep, 2013 [facility] [address] [id number] [address] [place] [address], [place] [address] 05 Jan, 2013 [facility] [address] [id number] [address] [place] [address], [place] [address] Dec, 2013 [facility] [address] [id number] [address] [place] [address], [place] [address] Dec, [facility] [address] [id number] [facility] [address] Dec, [facility] [address] [id number] [facility] [address] Dec, [facility] [address] [id number] [address] [place] [address], [place] [address] Dec, [facility] [address] [id number] [address] [place] [address], [place] [address] Dec, [facility] [address] [id number] [address] [place] [address], [place] [address] Dec, [facility] [address] [id number] [address] [place] [address], [place] [address] Dec, [facility] [address] [id number] [address] [place] [address], [place] [address] Dec, [facility] [address] [id number] [address] [place] [address], [place] [address] Dec, [facility] [address] [id number] [address] [place] [address], [place] [address] Dec, [facility] [address] [id number] [address] [place] [address], [place] [address] Dec, [facility] [address] [id number] [address] [place] [address], [place] [address] Dec, [facility] [address] [id number] [address] [place] [address], [place] [address] Dec, [facility] [address] [id number] [address] [place] [address], [place] [address] Dec, [facility] [address] [id number] [address] [place] [address], [place] [address] Dec, [facility] [address] [id number] [address] [place] [address], [place] [address] Dec, [facility] [address] [id number] [facility] [address] Dec, [facility] [address] [id number] [facility] [address] Dec, [facility] [address] [id number] [facility] [address] Nov, [facility] [address] [id number] [address] [place] [address], [place] [address] Nov, [facility] [address] [id number] [address] [place] [address], [place] [address] Nov, [facility] [address] [id number] [address] [place] [address], [place] [address] Nov, [facility] [address] [id number] [address] [place] [address], [place] [address] Nov, [facility] [address] [id number] [address] [place] [address], [place] [address] Nov, [facility] [address] [id number] [address] [place] [address], [place] [address] Nov, [facility] [address] [id number] [address] [place] [address], [place] [address] Nov, [facility] [address] [id number] [address] [place] [address], [place] [address] Nov, [facility] [address] [id number] [address] [place] [address], [place] [address] Nov, [facility] [address] [id number] [address] [place] [address], [place] [address] Nov, [facility] [address] [id number] [address] [place] [address], [place] [address] Oct, [facility] [address] [id number] [address] [place] [address], [place] [address] Oct, [facility] [address] [id number] [address] [place] [address], [place] [address] Oct, [facility] [address] [facility] [id number] [address] [place] [address] Apr, IMMUNIZATIONS No Known Immunizations SOCIAL HISTORY [...]
--- OUTSIDE RECORDS SUMMARY | 2019-11-23 06:21 | XMS REPORT ---
Author Author Pal Bajwa Doctor Organization [facility] Address Unknown Phone Unavailable Care Team Providers Care Receiving Lead Name Role Phone Migration, Doctor Unavailable Unavailable PROBLEMS Type Condition ICD9-CM Code [id number] Code Onset Dates Condition S tatus SNOMED Code Problem Chronic pain syndrome G89.4 Active 205630289 Problem Anxiety disorder, unspecified F41.9 Active 129378384 Problem Bilateral primary osteoarthritis of knee M17.0 Active 239609104 ALLERGIES No Information ENCOUNTERS Encounter Location Date Diagnosis [facility] [address] [id number] [address] [place] [address] Aug, [facility] [address] [id number] [address] [place] [address] Jul, [facility] [address] [id number] [address] [place] [address] Jun, [facility] [address] [id number] [address] [place] [address] May, [facility] [address] [id number] [address] [place] [address] Apr, Pain in right knee M25.561 [facility] [address] [id number] [address] [place] [address] Apr, Pain in right knee M25.561 [facility] [address] [id number] [address] [place] [address] Mar, Pain in right knee M25.561 [facility] [address] [id number] [address] [place] [address] Mar, [facility] [address] [id number] [address] [place] [address] Mar, Chronic pain syndrome G89.4 [facility] [address] [id number] [address] [place] [address] Feb, [facility] [address] [id number] [address] [place] [address] Feb, [facility] [address] [id number] [address] [place] [address] Dec, [facility] [address] [id number] [address] [place] [address] Dec, [facility] [address] [id number] [address] [place] [address] Nov, Chronic pain syndrome G89.4 [facility] [address] [id number] [address] [place] [address] Nov, [facility] [address] [id number] [address] [place] [address] Oct, [facility] [address] [id number] [address] [place] [address] Oct, [facility] [address] [id number] [address] [place] [address] Oct, [facility] [address] [facility] [id number] [address] [place] [address] Oct, Allergic reaction to drug, s ubsequent encounter T78.40XD [facility] [address] [id number] [address] [place] [address] September, [facility] [address] [id number] [address] [place] [address] September, [facility] [address] [id number] [address] [place] [address] September, Low back pain radiating to l ower extremity M54.5 [facility] [address] [id number] [address] [place] [address] Aug, [facility] [address] [id number] [address] [place] [address] Aug, [facility] [address] [id number] [address] [place] [address] Aug, [facility] [address] [id number] [address] [place] [address] Aug, [facility] [address] [facility] [id number] [address] [place] [address] Aug, Incisional infection, initia l encounter T81.4XXA [facility] [address] [id number] [address] [place] [address] Aug, [facility] [address] [id number] [address] [place] [address] Jul, [facility] [address] [facility] [id number] [address] [place] [address] Jul, [facility] [address] [facility] [id number] [address] [place] [address] Jul, Chronic pain syndrome G89.4 [facility] [address] [id number] [address] [place] [address] Jul, Pre-op evaluation Z01.818 [facility] [address] [facility] [id number] [address] [place] [address] Jul, [facility] [address] [facility] [id number] [address] [place] [address] Jun, Anxiety disorder, unspecifie d F41.9 and Chronic pain syndrome G89.4 [facility] [address] [id number] [address] [place] [address] Jun, [facility] [address] [id number] [address] [place] [address] Jun, [facility] [address] [facility] [id number] [address] [place] [address] Jun, [facility] [address] [facility] [id number] [address] [place] [address] Jun, [facility] [address] [id number] [address] [place] [address] Jun, Lumbar neuritis M54.16 [facility] [address] [id number] [address] [place] [address] May, [facility] [address] [id number] [address] [place] [address] May, [facility] [address] [id number] [address] [place] [address] May, Encounter for therapeutic dr ug level monitoring Z51.81 ; Encounter for immunization Z23 and Chronic pain syndrome G89.4 [facility] [address] [id number] [address] [place] [address] May, Lumbar neuritis M54.16 [facility] [address] [id number] [address] [place] [address] May, [facility] [address] [id number] [address] [place] [address] Apr, Lumbar neuritis M54.16 [facility] [address] [id number] [address] [place] [address] Apr, [facility] [address] [id number] [address] [place] [address] Mar, Lumbar neuritis M54.16 [facility] [address] [id number] [address] [place] [address] Mar, [facility] [address] [id number] [address] [place] [address] Mar, [facility] [address] [id number] [address] [place] [address] Feb, Lumbar neuritis M54.16 [facility] [address] [id number] [address] [place] [address] Feb, Lumbar neuritis M54.16 [facility] [address] [id number] [address] [place] [phone] 16 Feb, 2017 [facility] [address] [id number] [address] [place] [address] 09 Feb, 2017 [facility] [address] [id number] [address] [place] [address] 25 Jan, 2017 [facility] [address] [id number] [address] [place] [address] 22 Jan, 2017 Peroneal tendonitis of left lower extremity M76.72 [facility] [address] [id number] [address] [place] [address] 20 Jan, 2017 Lumbar neuritis M54.16 [facility] [address] [id number] [address] [place] [address] Jan, [facility] [address] [id number] [address] [place] [address] Dec, Lumbar neuritis M54.16 [facility] [address] [id number] [address] [place] [address] Dec, [facility] [address] [id number] [address] [place] [address] Dec, Pain in right knee M25.561 ; Lumbar neuritis M54.16 and Cervical neuritis M54.12 [facility] [address] [id number] [address] [place] [address] Dec, [facility] [address] [id number] [address] [place] [address] Dec, [facility] [address] [id number] [address] [place] [address] Nov, Lumbar neuritis M54.16 [facility] [address] [id number] [address] [place] [address] Nov, Bilateral primary osteoarthr itis of knee M17.0 [facility] [address] [id number] [address] [place] [address] 14 Nov, 2016 [facility] [address] [id number] [address] [place] [address] Nov, Bronchitis J40 and Plantar f asciitis M72.2 [facility] [address] [id number] [address] [place] [address] Nov, [facility] [address] [id number] [address] [place] [address] Oct, Lumbar neuritis M54.16 [facility] [address] [id number] [address] [place] [address] Oct, Lumbar neuritis M54.16 [facility] [address] [id number] [address] [place] [address] Oct, Lumbar neuritis M54.16 [facility] [address] [id number] [address] [place] [address] 26 Oct, 2016 Plantar fasciitis M72.2 and Pain in right knee M25.561 [facility] [address] [id number] [address] [place] [address] 16 Oct, 2016 Lumbar neuritis M54.16 ; Cer vical neuritis M54.12 ; Other specified abdominal hernia without obstruction or gangrene K45.8 ; Heel spur, left M77.32 ; Plantar fasciitis M72.2 and Pain in right knee M25.561 [facility] [address] [id number] [address] [place] [address] 13 Oct, 2016 [facility] [address] [id number] [address] [place] [address] Aug, [facility] [address] [id number] [address] [place] [address] Aug, [facility] [address] [id number] [address] [place] [address] Apr, [facility] [address] [facility] [id number] [address] [place] [phone] Apr, [facility] [address] [id number] [address] [place] [address], [place] [address] Mar, [facility] [address] [id number] [address] [place] [address], [place] [address] Mar, [facility] [address] [id number] [address] [place] [address], [place] [address] Feb, [facility] [address] [id number] [address] [place] [address], [place] [address] Feb, [facility] [address] [id number] [address] [place] [address], [place] [address] Feb, [facility] [address] [id number] [address] [place] [address], [place] [address] Feb, [facility] [address] [id number] [address] [place] [address], [place] [address] Feb, [facility] [address] [id number] [address] [place] [phone] Feb, [facility] [address] [id number] [address] [place] [address], [place] [address] Feb, [facility] [address] [id number] [address] [place] [address] Feb, [facility] [address] [id number] [address] [place] [address] 30 Sep, 2013 [facility] [address] [id number] [address] [place] [address] 30 Sep, 2013 [facility] [address] [id number] [address] [place] [address], [place] [address] 30 Sep, 2013 [facility] [address] [id number] [address] [place] [address], [place] [address] 30 Sep, 2013 [facility] [address] [id number] [address] [place] [address], [place] [address] 30 Sep, 2013 [facility] [address] [id number] [address] [place] [address], [place] [address] 30 Sep, 2013 [facility] [address] [id number] [facility] [address] 26 Sep, 2013 [facility] [address] [id number] [facility] [address] 26 Sep, 2013 [facility] [address] [id number] [address] [place] [address], [place] [address] 22 Sep, 2013 [facility] [address] [id number] [address] [place] [address], [place] [address] 22 Sep, 2013 [facility] [address] [id number] [address] [place] [address], [place] [address] 16 Sep, 2013 [facility] [address] [id number] [address] [place] [address], [place] [address] 16 Sep, 2013 [facility] [address] [id number] [address] [place] [address], [place] [address] 16 Sep, 2013 [facility] [address] [id number] [address] [place] [address], [place] [address] 16 Sep, 2013 [facility] [address] [id number] [address] [place] [address], [place] [address] 12 Sep, 2013 [facility] [address] [id number] [address] [place] [address], [place] [address] 12 Sep, 2014 [facility] [address] [id number] [address] [place] [address], [place] [address] 12 Sep, 2014 [facility] [address] [id number] [address] [place] [address], [place] [address] 12 Sep, 2013 [facility] [address] [id number] [address] [place] [address], [place] [address] 09 Sep, 2013 [facility] [address] [id number] [address] [place] [address], [place] [address] 09 Sep, 2013 [facility] [address] [id number] [address] [place] [address], [place] [address] 09 Sep, 2013 [facility] [address] [id number] [facility] [address] Jan, [facility] [address] [id number] [facility] [address] Jan, [facility] [address] [id number] [facility] [address] Jan, [facility] [address] [id number] [facility] [address] Dec, [facility] [address] [id number] [facility] [place] [address] Dec, [facility] [address] [id number] [address] [place] [address], [place] [address] Dec, [facility] [address] [id number] [address] [place] [address], [place] [address] Dec, [facility] [address] [id number] [address] [place] [address], [place] [address] Dec, [facility] [address] [id number] [address] [place] [address], [place] [address] Dec, [facility] [address] [id number] [address] [place] [address], [place] [address] Dec, [facility] [address] [id number] [address] [place] [address], [place] [address] Dec, [facility] [address] [id number] [address] [place] [address], [place] [address] Dec, [facility] [address] [id number] [address] [place] [address], [place] [address] Dec, [facility] [address] [id number] [address] [place] [address], [place] [address] Dec, [facility] [address] [id number] [address] [place] [address], [place] [address] Dec, [facility] [address] [id number] [address] [place] [address], [place] [address] Dec, [facility] [address] [id number] [facility] [place] [address] Dec, [facility] [address] [id number] [address] [place] [address], [place] [address] Dec, [facility] [address] [id number] [address] [place] [address], [place] [address] Dec, [facility] [address] [id number] [address] [place] [address], [place] [address] Dec, [facility] [address] [id number] [address] [place] [address], [place] [address] Dec, [facility] [address] [id number] [address] [place] [address], [place] [address] Dec, [facility] [address] [id number] [address] [place] [address], [place] [address] Nov, [facility] [address] [id number] [address] [place] [address], [place] [address] Nov, [facility] [address] [id number] [address] [place] [address], [place] [address] Nov, [facility] [address] [id number] [address] [place] [address], [place] [address] Nov, [facility] [address] [id number] [address] [place] [address], [place] [address] Nov, [facility] [address] [id number] [address] [place] [address], [place] [address] Nov, [facility] [address] [id number] [address] [place] [address], [place] [address] Nov, [facility] [address] [id number] [address] [place] [address], [place] [address] Nov, [facility] [address] [id number] [address] [place] [address], [place] [address] Nov, [facility] [address] [id number] [address] [place] [address] Nov, [facility] [address] [facility] [id number] [address] [place] [address] Nov, [facility] [address] [facility] [id number] [address] [place] [address] Oct, [facility] [address] [facility] [id number] [address] [place] [address] Oct, [facility] [address] [facility] [id number] [address] [place] [address] Oct, [facility] [address] [facility] [id number] [address] [place] [address] Apr, IMMUNIZATIONS No Known Immunizations SOCIAL HISTORY Never Assessed REASON FOR VISIT EMR-[facility] PLAN OF CARE VITAL SIGNS MEDICATIONS Unknown [...]
--- OUTSIDE RECORDS SUMMARY | 2019-11-23 06:21 | XMS REPORT ---
Author Author Pal Bajwa Doctor Organization [facility] Address Unknown Phone Unavailable Care Team Providers Care Political Advisor Name Role Phone Migration, Doctor Unavailable Unavailable PROBLEMS Type Condition ICD9-CM Code QPV32-LU Code Onset Dates Condition S tatus SNOMED Code Problem Lumbago with sciatica, right side M54.41 Active [id number] Problem Other chronic pain G89.29 Active 8 1063337 Problem Bilateral primary osteoarthritis of knee M17.0 Active 484689110 Problem Chronic pain syndrome G89.4 Active 006391672 Problem Anxiety disorder, unspecified F41.9 Active 126715464 Problem Lumbago with sciatica, left side M54.42 Active [id number] ALLERGIES No Information ENCOUNTERS Encounter Location Date Diagnosis [place] [address] [facility] [id number] [address] [place] [address] Aug, Lumbago with sciatica, left side M54.42 ; Lumbago with sciatica, right side M54.41 and Other chronic pain G89.29 [place] [address] [facility] [id number] [address] [place] [id number] Aug, [facility] [address] [facility] [id number] [address] [place] [address] Jul, [facility] [address] [facility] [id number] [address] [place] [address] Jun, [facility] [address] [facility] [id number] [address] [place] [id number] May, [facility] [address] [facility] [id number] [address] [place] [address] Apr, Pain in right knee M25.561 [facility] [address] [facility] [id number] [address] [place] [address] Apr, Pain in right knee M25.561 [facility] [address] [id number] [address] [place] [address] Mar, Pain in right knee M25.561 [facility] [address] [id number] [address] [place] [address] Mar, [facility] [address] [id number] [address] [place] [address] Mar, Chronic pain syndrome G89.4 [facility] [address] [id number] [address] [place] [id number] Feb, [facility] [address] [id number] [address] [place] [id number] Feb, [facility] [address] [id number] [address] [place] [id number] Dec, [facility] [address] [id number] [address] [place] [address] Dec, [facility] [address] [id number] [address] [place] [address] Nov, Chronic pain syndrome G89.4 [facility] [address] [id number] [address] [place] [address] Nov, [facility] [address] [id number] [address] [place] [address] Oct, [facility] [address] [id number] [address] [place] [address] Oct, [facility] [address] [id number] [address] [place] [id number] Oct, [facility] [address] [id number] [address] [place] [id number] Oct, Allergic reaction to drug, s ubsequent encounter T78.40XD [facility] [address] [id number] [address] [place] [id number] September, [facility] [address] [id number] [address] [place] [id number] September, [facility] [address] [id number] [address] [place] [address] September, Low back pain radiating to l ower extremity M54.5 [facility] [address] [id number] [address] [place] [address] Aug, [facility] [address] [id number] [address] [place] [id number] Aug, [facility] [address] [id number] [address] [place] [address] Aug, [facility] [address] [id number] [address] [place] [id number] Aug, [facility] [address] [facility] [id number] [address] [place] [address] Aug, Incisional infection, initia l encounter T81.4XXA [facility] [address] [id number] [address] [place] [address] Aug, [facility] [address] [facility] [id number] [address] [place] [address] Jul, [facility] [address] [facility] [id number] [address] [place] [id number] Jul, [facility] [address] [facility] [id number] [address] [place] [address] Jul, Chronic pain syndrome G89.4 [facility] [address] [facility] [id number] [address] [place] [address] Jul, Pre-op evaluation Z01.818 [facility] [address] [facility] [id number] [address] [place] [id number] Jul, [facility] [address] [facility] [id number] [address] [place] [id number] Jun, Anxiety disorder, unspecifie d F41.9 and Chronic pain syndrome G89.4 [facility] [address] [id number] [address] [place] [id number] Jun, [facility] [address] [id number] [address] [place] [id number] Jun, [facility] [address] [id number] [address] [place] [id number] Jun, [facility] [address] [id number] [address] [place] [id number] Jun, [facility] [address] [id number] [address] [place] [id number] Jun, Lumbar neuritis M54.16 [facility] [address] [facility] [id number] [address] [place] [id number] May, [facility] [address] [facility] [id number] [address] [place] [id number] May, [facility] [address] [facility] [id number] [address] [place] [id number] May, Encounter for therapeutic dr ug level monitoring Z51.81 ; Encounter for immunization Z23 and Chronic pain syndrome G89.4 [facility] [address] [facility] [id number] [address] [place] [id number] May, Lumbar neuritis M54.16 [facility] [address] [facility] [id number] [address] [place] [id number] May, [facility] [address] [facility] [id number] [address] [place] [address] Apr, Lumbar neuritis M54.16 [facility] [address] [facility] [id number] [address] [place] [address] Apr, [facility] [address] [facility] [id number] [address] [place] [address] Mar, Lumbar neuritis M54.16 [facility] [address] [facility] [id number] [address] [place] [id number] Mar, [facility] [address] [id number] [address] [place] [id number] Mar, [facility] [address] [id number] [address] [place] [address] Feb, Lumbar neuritis M54.16 [facility] [address] [id number] [address] [place] [address] Feb, Lumbar neuritis M54.16 [facility] [address] [id number] [address] [place] [id number] 16 Feb, 2017 [facility] [address] [id number] [address] [place] [id number] Feb, [facility] [address] [id number] [address] [place] [id number] 25 Jan, 2017 [facility] [address] [id number] [address] [place] [id number] 22 Jan, 2017 Peroneal tendonitis of left lower extremity M76.72 [facility] [address] [id number] [address] [place] [id number] 20 Jan, 2017 Lumbar neuritis M54.16 [facility] [address] [id number] [address] [place] [id number] 12 Jan, 2017 [facility] [address] [id number] [address] [place] [id number] Dec, Lumbar neuritis M54.16 [facility] [address] [id number] [address] [place] [id number] Dec, [facility] [address] [id number] [address] [place] [id number] Dec, Pain in right knee M25.561 ; Lumbar neuritis M54.16 and Cervical neuritis M54.12 [facility] [address] [id number] [address] [place] [id number] 14 Dec, 2016 [facility] [address] [id number] [address] [place] [id number] Dec, [facility] [address] [id number] [address] [place] [address] Nov, Lumbar neuritis M54.16 [facility] [address] [id number] [address] [place] [id number] Nov, Bilateral primary osteoarthr itis of knee M17.0 [facility] [address] [id number] [address] [place] [id number] Nov, [facility] [address] [id number] [address] [place] [address] Nov, Bronchitis J40 and Plantar f asciitis M72.2 [facility] [address] [id number] [address] [place] [id number] Nov, [place] [address] [facility] [id number] [address] [place] [address] Oct, Lumbar neuritis M54.16 [facility] [address] [id number] [address] [place] [id number] Oct, Lumbar neuritis M54.16 [facility] [address] [id number] [address] [place] [id number] Oct, Lumbar neuritis M54.16 [facility] [address] [id number] [address] [place] [address] Oct, Plantar fasciitis M72.2 and Pain in right knee M25.561 [facility] [address] [id number] [address] [place] [id number] 16 Oct, 2016 Lumbar neuritis M54.16 ; Cer vical neuritis M54.12 ; Other specified abdominal hernia without obstruction or gangrene K45.8 ; Heel spur, left M77.32 ; Plantar fasciitis M72.2 and Pain in right knee M25.561 [facility] [address] [id number] [address] [place] [id number] 13 Oct, 2016 [facility] [address] [id number] [address] [place] [address], [place] [address] 14 Aug, 2014 [facility] [address] [id number] [address] [place] [address], [place] [address] 13 Aug, 2014 [facility] [address] [id number] [address] [place] [address], [place] [address] 11 Apr, 2014 [facility] [address] [id number] [address] [place] [address], [place] [address] Apr, [facility] [address] [id number] [address] [place] [address], [place] [address] Mar, [facility] [address] [id number] [address] [place] [address], [place] [address] Mar, [facility] [address] [id number] [address] [place] [address], [place] [address] Feb, [facility] [address] [id number] [address] [place] [address], [place] [address] Feb, [facility] [address] [id number] [address] [place] [address], [place] [address] Feb, [facility] [address] [id number] [address] [place] [address], [place] [address] Feb, [facility] [address] [id number] [address] [place] [address], [place] [address] Feb, [facility] [address] [id number] [address] [place] [address], [place] [address] Feb, [facility] [address] [id number] [address] [place] [address], [place] [address] Feb, [facility] [address] [id number] [address] [place] [address], [place] [address] Feb, [facility] [address] [id number] [address] [place] [address], [place] [address] 30 Jan, 2014 [facility] [address] [id number] [address] [place] [address], [place] [address] 30 Sep, 2013 [facility] [address] [id number] [facility] [place] [address] 30 Sep, 2013 [facility] [address] [id number] [facility] [place] [address] 30 Sep, 2013 [facility] [address] [id number] [address] [place] [address], [place] [address] 30 Sep, 2013 [facility] [address] [id number] [address] [place] [address], [place] [address] 30 Sep, 2013 [facility] [address] [id number] [address] [place] [address], [place] [address] 26 Sep, 2013 [facility] [address] [id number] [address] [place] [address], [place] [address] 26 Sep, 2013 [facility] [address] [id number] [address] [place] [address], [place] [address] 22 Sep, 2013 [facility] [address] [id number] [address] [place] [address], [place] [address] 22 Sep, 2013 [facility] [address] [id number] [address] [place] [address], [place] [address] 16 Sep, 2013 [facility] [address] [id number] [address] [place] [address], [place] [address] 16 Sep, 2014 [facility] [address] [id number] [address] [place] [address], [place] [address] 16 Sep, 2013 [facility] [address] [id number] [address] [place] [address], [place] [address] 16 Sep, 2013 [facility] [address] [id number] [address] [place] [address], [place] [address] 12 Sep, 2013 [facility] [address] [id number] [address] [place] [address], [place] [address] 12 Sep, 2013 [facility] [address] [id number] [address] [place] [address], [place] [address] 12 Sep, 2013 [facility] [address] [id number] [facility] [place] [address] 12 Jan, 2013 [facility] [address] [id number] [address] [place] [address] Jan, 2013 [facility] [address] [id number] [facility] [place] [address] Jan, 2013 [facility] [address] [id number] [address] [place] [address], [place] [address] Jan, 2013 [facility] [address] [id number] [address] [place] [address], [place] [address] Jan, 2013 [facility] [address] [id number] [address] [place] [address], [place] [address] Jan, 2013 [facility] [address] [id number] [address] [place] [address], [place] [address] Jan, 2013 [facility] [address] [id number] [address] [place] [address], [place] [address] Dec, [facility] [address] [id number] [address] [place] [address], [place] [address] Dec, [facility] [address] [id number] [address] [place] [address], [place] [address] Dec, [facility] [address] [id number] [address] [place] [address], [place] [address] Dec, [facility] [address] [id number] [address] [place] [address], [place] [address] Dec, [facility] [address] [id number] [address] [place] [address], [place] [address] Dec, [facility] [address] [id number] [address] [place] [address], [place] [address] Dec, [facility] [address] [id number] [address] [place] [address], [place] [address] Dec, [facility] [address] [id number] [address] [place] [address], [place] [address] Dec, [facility] [address] [id number] [address] [place] [address] Dec, [facility] [address] [id number] [address] [place] [address], [place] [address] Dec, [facility] [address] [id number] [address] [place] [address], [place] [address] Dec, [facility] [address] [id number] [address] [place] [address], [place] [address] Dec, [facility] [address] [id number] [address] [place] [address], [place] [address] Dec, [facility] [address] [id number] [address] [place] [address], [place] [address] Dec, [facility] [address] [id number] [address] [place] [address], [place] [address] Dec, [facility] [address] [id number] [address] [place] [address], [place] [address] Dec, [facility] [address] [id number] [address] [place] [address], [place] [address] Dec, [facility] [address] [id number] [address] [place] [address], [place] [address] Dec, [facility] [address] [id number] [address] [place] [address], [place] [address] Nov, [facility] [address] [id number] [address] [place] [address], [place] [address] Nov, [facility] [address] [id number] [address] [place] [address], [place] [id number] Nov, [facility] [address] [id number] [address] [place] [address], [place] [id number] Nov, [facility] [address] [id number] [address] [place] [address], [place] [id number] Nov, [facility] [address] [id number] [address] [place] [id number] Nov, [facility] [address] [id number] [address] [place] [phone] Nov, [facility] [address] [id number] [address] [place] [id number] Nov, [facility] [address] [id number] [address] [place] [phone] Nov, [facility] [address] [id number] [address] [place] [id number] Nov, [facility] [address] [id number] [address] [place] [id number] Nov, [facility] [address] [id number] [address] [place] [id number] Oct, [facility] [address] [id number] [address] [place] [id number] Oct, [facility] [address] [id number] [address] [place] [id number] Oct, [facility] [address] [id number] [address] [place] [id number] Apr, IMMUNIZATIONS No Known Immunizations SOCIAL HISTORY Never Assessed REASON FOR VISIT [facility] PLAN OF CARE VITAL SIGNS MEDICATIONS No [...]
--- OUTSIDE RECORDS SUMMARY | 2019-11-23 06:21 | XMS REPORT ---
Author Author Pal CANCHOLA Organization [facility] Address [address] [place] [address] Care Team Providers Care Wire Stitcher Operator Name Role Phone SHANITA CANCHOLA Unavailable PROBLEMS Type Condition ICD9-CM Code TBX78-EO Code Onset Dates Condition S tatus SNOMED Code Problem Lumbago with sciatica, right side M54.41 Active [id number] Problem Other chronic pain G89.29 Active 8 1879997 Problem Bilateral primary osteoarthritis of knee M17.0 Active 728782607 Problem Chronic pain syndrome G89.4 Active 804578199 Problem Anxiety disorder, unspecified F41.9 Active 084228453 Problem Lumbago with sciatica, left side M54.42 Active [id number] ALLERGIES No Information ENCOUNTERS Encounter Location Date Diagnosis [facility] [address] [facility] [id number] [address] [place] [id number] Dec, [facility] [address] [place] [id number] [place] [phone] Nov, [facility] [address] [facility] [id number] [address] [place] [id number] Oct, [facility] [address] [id number] [address] [place] [phone] Oct, [facility] [address] [facility] [id number] [address] [place] [id number] Oct, Acute bronchitis, unspecifie d organism J20.9 and Nasal congestion R09.81 [facility] [address] [facility] [id number] [address] [place] [id number] September, [facility] [address] [facility] [id number] [address] [place] [id number] Aug, Lumbago with sciatica, left side M54.42 ; Lumbago with sciatica, right side M54.41 and Other chronic pain G89.29 [facility] [address] [id number] [address] [place] [id number] Aug, [facility] [address] [id number] [address] [place] [id number] Jul, [facility] [address] [id number] [address] [place] [phone] Jun, [facility] [address] [id number] [address] [place] [id number] May, [facility] [address] [id number] [address] [place] [id number] Apr, Pain in right knee M25.561 [facility] [address] [id number] [address] [place] [phone] Apr, Pain in right knee M25.561 [facility] [address] [id number] [address] [place] [id number] Mar, Pain in right knee M25.561 [facility] [address] [id number] [address] [place] [id number] Mar, [facility] [address] [id number] [address] [place] [id number] Mar, Chronic pain syndrome G89.4 [facility] [address] [id number] [address] [place] [id number] Feb, [facility] [address] [id number] [address] [place] [phone] Feb, [facility] [address] [id number] [address] [place] [phone] Dec, [facility] [address] [id number] [address] [place] [id number] Dec, [facility] [address] [id number] [address] [place] [id number] Nov, Chronic pain syndrome G89.4 [facility] [address] [id number] [address] [place] [phone] Nov, [facility] [address] [facility] [id number] [address] [place] [phone] Oct, [facility] [address] [id number] [address] [place] [id number] Oct, [facility] [address] [facility] [id number] [address] [place] [id number] Oct, [facility] [address] [facility] [id number] [address] [place] [id number] Oct, Allergic reaction to drug, s ubsequent encounter T78.40XD [facility] [address] [facility] [id number] [address] [place] [id number] September, [facility] [address] [facility] [id number] [address] [place] [phone] September, [facility] [address] [facility] [id number] [address] [place] [id number] September, Low back pain radiating to l ower extremity M54.5 [facility] [address] [facility] [id number] [address] [place] [id number] Aug, [facility] [address] [facility] [id number] [address] [place] [id number] Aug, [facility] [address] [facility] [id number] [address] [place] [id number] Aug, [facility] [address] [facility] [id number] [address] [place] [id number] Aug, [facility] [address] [facility] [id number] [address] [place] [id number] Aug, Incisional infection, initia l encounter T81.4XXA [facility] [address] [facility] [id number] [address] [place] [id number] Aug, [facility] [address] [facility] [id number] [address] [place] [phone] Jul, [facility] [address] [facility] [id number] [address] [place] [phone] Jul, [facility] [address] [facility] [id number] [address] [place] [id number] Jul, Chronic pain syndrome G89.4 [facility] [address] [facility] [id number] [address] [place] [id number] Jul, Pre-op evaluation Z01.818 [facility] [address] [facility] [id number] [address] [place] [id number] Jul, [facility] [address] [facility] [id number] [address] [place] [id number] Jun, Anxiety disorder, unspecifie d F41.9 and Chronic pain syndrome G89.4 [facility] [address] [facility] [id number] [address] [place] [phone] Jun, [facility] [address] [facility] [id number] [address] [place] [id number] Jun, [facility] [address] [facility] [id number] [address] [place] [phone] Jun, [facility] [address] [facility] [id number] [address] [place] [phone] Jun, [facility] [address] [facility] [id number] [address] [place] [id number] Jun, Lumbar neuritis M54.16 [facility] [address] [facility] [id number] [address] [place] [phone] May, [facility] [address] [facility] [id number] [address] [place] [id number] May, [facility] [address] [facility] [id number] [address] [place] [id number] May, Encounter for therapeutic dr heather level monitoring Z51.81 ; Encounter for immunization Z23 and Chronic pain syndrome G89.4 [facility] [address] [id number] [address] [place] [id number] May, Lumbar neuritis M54.16 [facility] [address] [id number] [address] [place] [id number] May, [facility] [address] [id number] [address] [place] [id number] Apr, Lumbar neuritis M54.16 [facility] [address] [id number] [address] [place] [id number] Apr, [facility] [address] [id number] [address] [place] [id number] Mar, Lumbar neuritis M54.16 [facility] [address] [id number] [address] [place] [id number] Mar, [facility] [address] [id number] [address] [place] [id number] Mar, [facility] [address] [id number] [address] [place] [id number] Feb, Lumbar neuritis M54.16 [facility] [address] [id number] [address] [place] [phone] Feb, Lumbar neuritis M54.16 [facility] [address] [id number] [address] [place] [id number] Feb, [facility] [address] [id number] [address] [place] [id number] Feb, [facility] [address] [id number] [address] [place] [id number] Jan, [facility] [address] [id number] [address] [place] [id number] Jan, Peroneal tendonitis of left lower extremity M76.72 [facility] [address] [id number] [address] [place] [id number] 20 Jan, 2017 Lumbar neuritis M54.16 [facility] [address] [id number] [address] [place] [id number] Jan, [facility] [address] [id number] [address] [place] [id number] Dec, Lumbar neuritis M54.16 [facility] [address] [id number] [address] [place] [id number] Dec, [facility] [address] [id number] [address] [place] [id number] Dec, Pain in right knee M25.561 ; Lumbar neuritis M54.16 and Cervical neuritis M54.12 [facility] [address] [id number] [address] [place] [phone] Dec, [facility] [address] [id number] [address] [place] [id number] Dec, [facility] [address] [id number] [address] [place] [id number] Nov, Lumbar neuritis M54.16 [facility] [address] [id number] [address] [place] [phone] Nov, Bilateral primary osteoarthr itis of knee M17.0 [facility] [address] [id number] [address] [place] [id number] Nov, [facility] [address] [id number] [address] [place] [id number] Nov, Bronchitis J40 and Plantar f asciitis M72.2 [facility] [address] [id number] [address] [place] [id number] Nov, [facility] [address] [id number] [address] [place] [id number] Oct, Lumbar neuritis M54.16 [facility] [address] [id number] [address] [place] [id number] 30 Oct, 2016 Lumbar neuritis M54.16 [facility] [address] [id number] [address] [place] [id number] 28 Oct, 2016 Lumbar neuritis M54.16 [facility] [address] [id number] [address] [place] [id number] 26 Oct, 2016 Plantar fasciitis M72.2 and Pain in right knee M25.561 [facility] [address] [id number] [address] [place] [id number] 16 Oct, 2016 Lumbar neuritis M54.16 ; Cer vical neuritis M54.12 ; Other specified abdominal hernia without obstruction or gangrene K45.8 ; Heel spur, left M77.32 ; Plantar fasciitis M72.2 and Pain in right knee M25.561 [facility] [address] [id number] [address] [place] [id number] 13 Oct, 2016 [facility] [address] [id number] [address] [place] [id number] 14 Aug, 2014 [facility] [address] [id number] [address] [place] [id number] Aug, [facility] [address] [id number] [address] [place] [id number] Apr, [facility] [address] [id number] [address] [place] [id number] Apr, [facility] [address] [id number] [address] [place] [phone] Mar, [facility] [address] [id number] [address] [place] [id number] Mar, [facility] [address] [id number] [address] [place] [phone] Feb, [facility] [address] [id number] [address] [place] [id number] Feb, [facility] [address] [id number] [address] [place] [address], [place] [id number] 09 Feb, 2013 [facility] [address] [id number] [address] [place] [address], [place] [id number] Feb, 2013 [facility] [address] [id number] [address] [place] [address], [place] [id number] Feb, 2013 [facility] [address] [id number] [address] [place] [address], [place] [id number] Feb, 2013 [facility] [address] [id number] [address] [place] [address], [place] [id number] Feb, 2013 [facility] [address] [id number] [address] [place] [address], [place] [id number] Feb, 2013 [facility] [address] [id number] [address] [place] [address], [place] [id number] 30 Sep, 2013 [facility] [address] [id number] [address] [place] [address], [place] [id number] 30 Sep, 2013 [facility] [address] [id number] [address] [place] [address], [place] [id number] 30 Sep, 2013 [facility] [address] [id number] [address] [place] [address], [place] [id number] 30 Sep, 2013 [facility] [address] [id number] [address] [place] [address], [place] [id number] 30 Sep, 2013 [facility] [address] [id number] [address] [place] [address], [place] [id number] 30 Sep, 2013 [facility] [address] [id number] [address] [place] [address], [place] [id number] 26 Sep, 2013 [facility] [address] [id number] [address] [place] [address], [place] [id number] 26 Sep, 2013 [facility] [address] [id number] [address] [place] [address], [place] [id number] 22 Sep, 2013 [facility] [address] [id number] [address] [place] [address], [place] [id number] 22 Sep, 2013 [facility] [address] [id number] [facility] [place] [id number] 16 Sep, 2013 [facility] [address] [id number] [address] [place] [address], [place] [id number] 16 Sep, 2013 [facility] [address] [id number] [address] [place] [address], [place] [id number] 16 Sep, 2013 [facility] [address] [id number] [address] [place] [address], [place] [id number] 16 Sep, 2013 [facility] [address] [id number] [address] [place] [address], [place] [id number] 12 Sep, 2013 [facility] [address] [id number] [address] [place] [address], [place] [id number] 12 Jan, 2013 [facility] [address] [id number] [address] [place] [address], [place] [id number] 12 Jan, 2013 [facility] [address] [id number] [address] [place] [address], [place] [id number] 12 Jan, 2013 [facility] [address] [id number] [address] [place] [address], [place] [id number] 09 Sep, 2013 [facility] [address] [id number] [address] [place] [address], [place] [id number] 09 Sep, 2013 [facility] [address] [id number] [address] [place] [address], [place] [id number] 09 Sep, 2013 [facility] [address] [id number] [address] [place] [address], [place] [id number] 09 Sep, 2013 [facility] [address] [id number] [address] [place] [address], [place] [id number] 05 Sep, 2013 [facility] [address] [id number] [address] [place] [address], [place] [id number] 05 Jan, 2013 [facility] [address] [id number] [address] [place] [address], [place] [id number] Dec, 2013 [facility] [address] [id number] [address] [place] [address], [place] [id number] Dec, [facility] [address] [id number] [facility] [place] [id number] Dec, [facility] [address] [id number] [facility] [place] [id number] Dec, [facility] [address] [id number] [address] [place] [address], [place] [id number] Dec, [facility] [address] [id number] [address] [place] [address], [place] [id number] Dec, [facility] [address] [id number] [address] [place] [address], [place] [id number] Dec, [facility] [address] [id number] [address] [place] [address], [place] [id number] Dec, [facility] [address] [id number] [address] [place] [address], [place] [id number] Dec, [facility] [address] [id number] [address] [place] [address], [place] [id number] Dec, [facility] [address] [id number] [address] [place] [address], [place] [id number] Dec, [facility] [address] [id number] [address] [place] [address], [place] [id number] Dec, [facility] [address] [id number] [address] [place] [address], [place] [id number] Dec, [facility] [address] [id number] [address] [place] [address], [place] [id number] Dec, [facility] [address] [id number] [address] [place] [address], [place] [id number] Dec, [facility] [address] [id number] [address] [place] [address], [place] [id number] Dec, [facility] [address] [id number] [address] [place] [address], [place] [id number] Dec, [facility] [address] [id number] [facility] [place] [id number] Dec, [facility] [address] [id number] [facility] [place] [id number] Dec, [facility] [address] [id number] [facility] [place] [id number] Nov, [facility] [address] [id number] [address] [place] [address], [place] [id number] Nov, [facility] [address] [id number] [address] [place] [address], [place] [id number] Nov, [facility] [address] [id number] [address] [place] [address], [place] [id number] Nov, [facility] [address] [id number] [address] [place] [address], [place] [id number] Nov, [facility] [address] [id number] [address] [place] [address], [place] [id number] Nov, [facility] [address] [id number] [address] [place] [address], [place] [id number] Nov, [facility] [address] [id number] [address] [place] [address], [place] [id number] Nov, [facility] [address] [id number] [address] [place] [address], [place] [id number] Nov, [facility] [address] [id number] [address] [place] [address], [place] [id number] Nov, [facility] [address] [id number] [address] [place] [address], [place] [id number] Nov, [facility] [address] [id number] [address] [place] [address], [place] [id number] Oct, [facility] [address] [id number] [address] [place] [address], [place] [id number] Oct, [facility] [address] [id number] [address] [place] [address], [place] [id number] Oct, [facility] [address] [facility] [id number] [address] [place] [id number] Apr, IMMUNIZATIONS No Known Immunizations SOCIAL HISTORY Never Assessed REASON FOR VISIT PLAN OF CARE VITAL SIGNS Height 70 in 2014-01-10 Weight 172.4 lbs 2014-01-10 Temperature 98.5 degrees Fahrenheit 2014-01-10 Heart Rate 68 bpm 2014-01-10 Respiratory Rate 16 2014-01-10 Blood pressure systolic 136 mmHg 2014-01-10 Blood pressure diastolic 80 mmHg 2014-01-10 MEDICATIONS Unknown Medications RESULTS No Results PROCEDURES [...]
--- OUTSIDE RECORDS SUMMARY | 2019-11-23 06:21 | XMS REPORT ---
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 Phone SHANITA CANCHOLA Unavailable PROBLEMS Type Condition ICD9-CM Code PBL98-YT Code Onset Dates Condition S tatus SNOMED Code Problem Lumbago with sciatica, right side M54.41 Active 035652357953543 Problem Other chronic pain G89.29 Active 8 6303000 Problem Bilateral primary osteoarthritis of knee M17.0 Active 829945719 Problem Chronic pain syndrome G89.4 Active 388691496 Problem Anxiety disorder, unspecified F41.9 Active 219005883 Problem Lumbago with sciatica, left side M54.42 Active 303621406 ALLERGIES No Information ENCOUNTERS Encounter Location Date Diagnosis [facility] [address] [facility] [id number] [address] [place] [id number] Dec, [facility] [address] [place] [id number] [place] [address] Nov, [facility] [address] [facility] [id number] [address] [place] [phone] Oct, [facility] [address] [place] [place] [id number] [address] [place] [phone] Oct, [facility] [address] [facility] [id number] [address] [place] [id number] Oct, Acute bronchitis, unspecifie d organism J20.9 and Nasal congestion R09.81 [facility] [address] [facility] [id number] [address] [place] [id number] September, [facility] [address] [facility] [id number] [address] [place] [id number] Aug, Lumbago with sciatica, left side M54.42 ; Lumbago with sciatica, right side M54.41 and Other chronic pain G89.29 [facility] [address] [id number] [address] [place] [id number] Aug, [facility] [address] [id number] [address] [place] [id number] Jul, [facility] [address] [id number] [address] [place] [phone] Jun, [facility] [address] [id number] [address] [place] [id number] May, [facility] [address] [id number] [address] [place] [id number] Apr, Pain in right knee M25.561 [facility] [address] [id number] [address] [place] [id number] Apr, Pain in right knee M25.561 [facility] [address] [id number] [address] [place] [id number] Mar, Pain in right knee M25.561 [facility] [address] [id number] [address] [place] [phone] Mar, [facility] [address] [id number] [address] [place] [id number] Mar, Chronic pain syndrome G89.4 [facility] [address] [id number] [address] [place] [phone] Feb, [facility] [address] [id number] [address] [place] [phone] Feb, [facility] [address] [id number] [address] [place] [id number] Dec, [facility] [address] [id number] [address] [place] [phone] Dec, [facility] [address] [id number] [address] [place] [phone] Nov, Chronic pain syndrome G89.4 [facility] [address] [id number] [address] [place] [phone] Nov, [facility] [address] [facility] [id number] [address] [place] [id number] Oct, [facility] [address] [id number] [address] [place] [id number] Oct, [facility] [address] [facility] [id number] [address] [place] [phone] Oct, [facility] [address] [facility] [id number] [address] [place] [id number] Oct, Allergic reaction to drug, s ubsequent encounter T78.40XD [facility] [address] [facility] [id number] [address] [place] [id number] September, [facility] [address] [facility] [id number] [address] [place] [phone] September, [facility] [address] [facility] [id number] [address] [place] [phone] September, Low back pain radiating to l ower extremity M54.5 [facility] [address] [facility] [id number] [address] [place] [phone] Aug, [facility] [address] [facility] [id number] [address] [place] [phone] Aug, [facility] [address] [facility] [id number] [address] [place] [phone] Aug, [facility] [address] [facility] [id number] [address] [place] [id number] Aug, [facility] [address] [facility] [id number] [address] [place] [id number] Aug, Incisional infection, initia l encounter T81.4XXA [facility] [address] [facility] [id number] [address] [place] [phone] Aug, [facility] [address] [facility] [id number] [address] [place] [phone] Jul, [facility] [address] [facility] [id number] [address] [place] [id number] Jul, [facility] [address] [facility] [id number] [address] [place] [id number] Jul, Chronic pain syndrome G89.4 [facility] [address] [facility] [id number] [address] [place] [id number] Jul, Pre-op evaluation Z01.818 [facility] [address] [facility] [id number] [address] [place] [id number] Jul, [facility] [address] [facility] [id number] [address] [place] [phone] Jun, Anxiety disorder, unspecifie d F41.9 and Chronic pain syndrome G89.4 [facility] [address] [facility] [id number] [address] [place] [phone] Jun, [facility] [address] [facility] [id number] [address] [place] [id number] Jun, [facility] [address] [facility] [id number] [address] [place] [phone] Jun, [facility] [address] [facility] [id number] [address] [place] [phone] Jun, [facility] [address] [facility] [id number] [address] [place] [id number] Jun, Lumbar neuritis M54.16 [facility] [address] [facility] [id number] [address] [place] [phone] May, [facility] [address] [facility] [id number] [address] [place] [phone] May, [facility] [address] [facility] [id number] [address] [place] [id number] May, Encounter for therapeutic dr heather level monitoring Z51.81 ; Encounter for immunization Z23 and Chronic pain syndrome G89.4 [facility] [address] [id number] [address] [place] [id number] May, Lumbar neuritis M54.16 [facility] [address] [id number] [address] [place] [id number] May, [facility] [address] [id number] [address] [place] [id number] Apr, Lumbar neuritis M54.16 [facility] [address] [id number] [address] [place] [id number] Apr, [facility] [address] [id number] [address] [place] [id number] Mar, Lumbar neuritis M54.16 [facility] [address] [id number] [address] [place] [phone] Mar, [facility] [address] [id number] [address] [place] [id number] Mar, [facility] [address] [id number] [address] [place] [id number] Feb, Lumbar neuritis M54.16 [facility] [address] [id number] [address] [place] [phone] Feb, Lumbar neuritis M54.16 [facility] [address] [id number] [address] [place] [id number] Feb, [facility] [address] [id number] [address] [place] [id number] Feb, [facility] [address] [id number] [address] [place] [phone] Jan, [facility] [address] [id number] [address] [place] [phone] Jan, Peroneal tendonitis of left lower extremity M76.72 [facility] [address] [id number] [address] [place] [id number] 20 Jan, 2017 Lumbar neuritis M54.16 [facility] [address] [id number] [address] [place] [id number] Jan, [facility] [address] [id number] [address] [place] [id number] Dec, Lumbar neuritis M54.16 [facility] [address] [id number] [address] [place] [phone] Dec, [facility] [address] [id number] [address] [place] [id number] Dec, Pain in right knee M25.561 ; Lumbar neuritis M54.16 and Cervical neuritis M54.12 [facility] [address] [id number] [address] [place] [id number] Dec, [facility] [address] [id number] [address] [place] [id number] Dec, [facility] [address] [id number] [address] [place] [phone] Nov, Lumbar neuritis M54.16 [facility] [address] [id number] [address] [place] [phone] Nov, Bilateral primary osteoarthr itis of knee M17.0 [facility] [address] [id number] [address] [place] [phone] Nov, [facility] [address] [id number] [address] [place] [phone] Nov, Bronchitis J40 and Plantar f asciitis M72.2 [facility] [address] [id number] [address] [place] [id number] Nov, [facility] [address] [id number] [address] [place] [phone] Oct, Lumbar neuritis M54.16 [facility] [address] [id number] [address] [place] [id number] 30 Oct, 2016 Lumbar neuritis M54.16 [facility] [address] [id number] [address] [place] [id number] 28 Oct, 2016 Lumbar neuritis M54.16 [facility] [address] [id number] [address] [place] [id number] 26 Oct, 2016 Plantar fasciitis M72.2 and Pain in right knee M25.561 [facility] [address] [id number] [address] [place] [id number] 16 Oct, 2016 Lumbar neuritis M54.16 ; Cer vical neuritis M54.12 ; Other specified abdominal hernia without obstruction or gangrene K45.8 ; Heel spur, left M77.32 ; Plantar fasciitis M72.2 and Pain in right knee M25.561 [facility] [address] [id number] [address] [place] [id number] 13 Oct, 2016 [facility] [address] [id number] [address] [place] [id number] 14 Aug, 2014 [facility] [address] [id number] [address] [place] [id number] Aug, [facility] [address] [id number] [address] [place] [id number] Apr, [facility] [address] [id number] [address] [place] [phone] Apr, [facility] [address] [id number] [address] [place] [phone] Mar, [facility] [address] [id number] [address] [place] [phone] Mar, [facility] [address] [id number] [address] [place] [phone] Feb, [facility] [address] [id number] [address] [place] [phone] Feb, [facility] [address] [id number] [address] [place] [address], [place] [phone] 09 Feb, 2013 [facility] [address] [id number] [address] [place] [address], [place] [address] Feb, 2013 [facility] [address] [id number] [address] [place] [address], [place] [address] Feb, 2013 [facility] [address] [id number] [address] [place] [address], [place] [address] Feb, 2013 [facility] [address] [id number] [address] [place] [address], [place] [address] Feb, 2013 [facility] [address] [id number] [address] [place] [address], [place] [address] Feb, 2013 [facility] [address] [id number] [address] [place] [address], [place] [address] 30 Sep, 2013 [facility] [address] [id number] [address] [place] [address], [place] [address] 30 Sep, 2013 [facility] [address] [id number] [address] [place] [address], [place] [address] 30 Sep, 2013 [facility] [address] [id number] [address] [place] [address], [place] [address] 30 Sep, 2013 [facility] [address] [id number] [address] [place] [address], [place] [address] 30 Sep, 2013 [facility] [address] [id number] [address] [place] [address], [place] [address] 30 Sep, 2013 [facility] [address] [id number] [address] [place] [address], [place] [address] 26 Sep, 2013 [facility] [address] [id number] [address] [place] [address], [place] [address] 26 Sep, 2013 [facility] [address] [id number] [address] [place] [address], [place] [address] 22 Sep, 2013 [facility] [address] [id number] [address] [place] [address], [place] [address] 22 Sep, 2013 [facility] [address] [id number] [facility] [place] [address] 16 Sep, 2013 [facility] [address] [id number] [address] [place] [address], [place] [address] 16 Sep, 2013 [facility] [address] [id number] [address] [place] [address], [place] [address] 16 Sep, 2013 [facility] [address] [id number] [address] [place] [address], [place] [address] 16 Sep, 2013 [facility] [address] [id number] [address] [place] [address], [place] [address] 12 Sep, 2013 [facility] [address] [id number] [address] [place] [address], [place] [address] 12 Jan, 2013 [facility] [address] [id number] [address] [place] [address], [place] [address] 12 Jan, 2013 [facility] [address] [id number] [address] [place] [address], [place] [address] 12 Jan, 2013 [facility] [address] [id number] [address] [place] [address], [place] [address] 09 Sep, 2013 [facility] [address] [id number] [address] [place] [address], [place] [address] 09 Sep, 2013 [facility] [address] [id number] [address] [place] [address], [place] [address] 09 Sep, 2013 [facility] [address] [id number] [address] [place] [address], [place] [address] 09 Sep, 2013 [facility] [address] [id number] [address] [place] [address], [place] [address] 05 Sep, 2013 [facility] [address] [id number] [address] [place] [address], [place] [address] 05 Jan, 2013 [facility] [address] [id number] [address] [place] [address], [place] [address] Dec, 2013 [facility] [address] [id number] [address] [place] [address], [place] [address] Dec, [facility] [address] [id number] [facility] [place] [address] Dec, [facility] [address] [id number] [facility] [place] [address] Dec, [facility] [address] [id number] [address] [place] [address], [place] [address] Dec, [facility] [address] [id number] [address] [place] [address], [place] [address] Dec, [facility] [address] [id number] [address] [place] [address], [place] [address] Dec, [facility] [address] [id number] [address] [place] [address], [place] [address] Dec, [facility] [address] [id number] [address] [place] [address], [place] [address] Dec, [facility] [address] [id number] [address] [place] [address], [place] [address] Dec, [facility] [address] [id number] [address] [place] [address], [place] [address] Dec, [facility] [address] [id number] [address] [place] [address], [place] [address] Dec, [facility] [address] [id number] [address] [place] [address], [place] [address] Dec, [facility] [address] [id number] [address] [place] [address], [place] [address] Dec, [facility] [address] [id number] [address] [place] [address], [place] [address] Dec, [facility] [address] [id number] [address] [place] [address], [place] [address] Dec, [facility] [address] [id number] [address] [place] [address], [place] [address] Dec, [facility] [address] [id number] [facility] [place] [address] Dec, [facility] [address] [id number] [facility] [place] [address] Dec, [facility] [address] [id number] [facility] [place] [address] Nov, [facility] [address] [id number] [address] [place] [address], [place] [address] Nov, [facility] [address] [id number] [address] [place] [address], [place] [address] Nov, [facility] [address] [id number] [address] [place] [address], [place] [address] Nov, [facility] [address] [id number] [address] [place] [address], [place] [address] Nov, [facility] [address] [id number] [address] [place] [address], [place] [address] Nov, [facility] [address] [id number] [address] [place] [address], [place] [address] Nov, [facility] [address] [id number] [address] [place] [address], [place] [address] Nov, [facility] [address] [id number] [address] [place] [address], [place] [address] Nov, [facility] [address] [id number] [address] [place] [address], [place] [address] Nov, [facility] [address] [id number] [address] [place] [address], [place] [address] Nov, [facility] [address] [id number] [address] [place] [address], [place] [address] Oct, [facility] [address] [id number] [address] [place] [address], [place] [address] Oct, [facility] [address] [id number] [address] [place] [address], [place] [address] Oct, [facility] [address] [facility] [id number] [address] [place] [address] Apr, IMMUNIZATIONS No Known Immunizations SOCIAL HISTORY Never Assessed REASON FOR VISIT PLAN OF CARE VITAL SIGNS MEDICATIONS Unknown Medications RESULTS No Results PROCEDURES Procedure Date Ordered Result Body Site COMPLETE CBC W/AUTO DIFF WBC Jan 11, 2014 ASSAY THYROID STIM HORMONE Jan 11, 2014 LIPID PANEL Jan 11, 2014 COMPREHEN METABOLIC PANEL Jan 11, 2014 VENIPUNCT, ROUTINE* Jan 11, 2014 INSTRUCTIONS MEDICATIONS ADMINISTERED No Known Medications [...]
--- OUTSIDE RECORDS SUMMARY | 2019-11-23 06:21 | XMS REPORT ---
Author Author Pal Bajwa Doctor Organization [facility] Address Unknown Phone Unavailable Care Team Providers Care Electronic Page Makeup System Operator Name Role Phone Migration, Doctor Unavailable Unavailable PROBLEMS Type Condition ICD9-CM Code [id number] Code Onset Dates Condition S tatus SNOMED Code Problem Chronic pain syndrome G89.4 Active 810190710 Problem Anxiety disorder, unspecified F41.9 Active 437517452 Problem Bilateral primary osteoarthritis of knee M17.0 Active 913161025 ALLERGIES No Information ENCOUNTERS Encounter Location Date Diagnosis [facility] [address] [id number] [address] [place] [id number] Aug, [facility] [address] [id number] [address] [place] [id number] Jul, [facility] [address] [id number] [address] [place] [id number] Jun, [facility] [address] [id number] [address] [place] [id number] May, [facility] [address] [id number] [address] [place] [id number] Apr, Pain in right knee M25.561 [facility] [address] [id number] [address] [place] [id number] Apr, Pain in right knee M25.561 [facility] [address] [id number] [address] [place] [id number] Mar, Pain in right knee M25.561 [facility] [address] [id number] [address] [place] [id number] Mar, [facility] [address] [id number] [address] [place] [id number] Mar, Chronic pain syndrome G89.4 [facility] [address] [id number] [address] [place] [id number] Feb, [facility] [address] [id number] [address] [place] [id number] Feb, [facility] [address] [id number] [address] [place] [id number] Dec, [facility] [address] [id number] [address] [place] [phone] Dec, [facility] [address] [id number] [address] [place] [id number] Nov, Chronic pain syndrome G89.4 [facility] [address] [id number] [address] [place] [phone] Nov, [facility] [address] [id number] [address] [place] [id number] Oct, [facility] [address] [id number] [address] [place] [id number] Oct, [facility] [address] [id number] [address] [place] [id number] Oct, [facility] [address] [facility] [id number] [address] [place] [id number] Oct, Allergic reaction to drug, s ubsequent encounter T78.40XD [facility] [address] [id number] [address] [place] [id number] September, [facility] [address] [id number] [address] [place] [id number] September, [facility] [address] [id number] [address] [place] [id number] September, Low back pain radiating to l ower extremity M54.5 [facility] [address] [id number] [address] [place] [id number] Aug, [facility] [address] [id number] [address] [place] [id number] Aug, [facility] [address] [id number] [address] [place] [id number] Aug, [facility] [address] [id number] [address] [place] [id number] Aug, [facility] [address] [facility] [id number] [address] [place] [id number] Aug, Incisional infection, initia l encounter T81.4XXA [facility] [address] [id number] [address] [place] [id number] Aug, [facility] [address] [id number] [address] [place] [id number] Jul, [facility] [address] [facility] [id number] [address] [place] [phone] Jul, [facility] [address] [facility] [id number] [address] [place] [id number] Jul, Chronic pain syndrome G89.4 [facility] [address] [id number] [address] [place] [id number] Jul, Pre-op evaluation Z01.818 [facility] [address] [facility] [id number] [address] [place] [id number] Jul, [facility] [address] [facility] [id number] [address] [place] [id number] Jun, Anxiety disorder, unspecifie d F41.9 and Chronic pain syndrome G89.4 [facility] [address] [id number] [address] [place] [id number] Jun, [facility] [address] [id number] [address] [place] [phone] Jun, [facility] [address] [facility] [id number] [address] [place] [phone] Jun, [facility] [address] [facility] [id number] [address] [place] [id number] Jun, [facility] [address] [id number] [address] [place] [id number] Jun, Lumbar neuritis M54.16 [facility] [address] [id number] [address] [place] [id number] May, [facility] [address] [id number] [address] [place] [id number] May, [facility] [address] [id number] [address] [place] [id number] May, Encounter for therapeutic dr ug level monitoring Z51.81 ; Encounter for immunization Z23 and Chronic pain syndrome G89.4 [facility] [address] [id number] [address] [place] [id number] May, Lumbar neuritis M54.16 [facility] [address] [id number] [address] [place] [id number] May, [facility] [address] [id number] [address] [place] [id number] Apr, Lumbar neuritis M54.16 [facility] [address] [id number] [address] [place] [id number] Apr, [facility] [address] [id number] [address] [place] [id number] Mar, Lumbar neuritis M54.16 [facility] [address] [id number] [address] [place] [id number] Mar, [facility] [address] [id number] [address] [place] [id number] Mar, [facility] [address] [id number] [address] [place] [id number] Feb, Lumbar neuritis M54.16 [facility] [address] [id number] [address] [place] [id number] Feb, Lumbar neuritis M54.16 [facility] [address] [id number] [address] [place] [id number] 16 Feb, 2017 [facility] [address] [id number] [address] [place] [id number] 09 Feb, 2017 [facility] [address] [id number] [address] [place] [id number] 25 Jan, 2017 [facility] [address] [id number] [address] [place] [id number] 22 Jan, 2017 Peroneal tendonitis of left lower extremity M76.72 [facility] [address] [id number] [address] [place] [id number] 20 Jan, 2017 Lumbar neuritis M54.16 [facility] [address] [id number] [address] [place] [id number] Jan, [facility] [address] [id number] [address] [place] [id number] Dec, Lumbar neuritis M54.16 [facility] [address] [id number] [address] [place] [id number] Dec, [facility] [address] [id number] [address] [place] [id number] Dec, Pain in right knee M25.561 ; Lumbar neuritis M54.16 and Cervical neuritis M54.12 [facility] [address] [id number] [address] [place] [id number] Dec, [facility] [address] [id number] [address] [place] [phone] Dec, [facility] [address] [id number] [address] [place] [id number] Nov, Lumbar neuritis M54.16 [facility] [address] [id number] [address] [place] [id number] Nov, Bilateral primary osteoarthr itis of knee M17.0 [facility] [address] [id number] [address] [place] [id number] 14 Nov, 2016 [facility] [address] [id number] [address] [place] [id number] Nov, Bronchitis J40 and Plantar f asciitis M72.2 [facility] [address] [id number] [address] [place] [id number] Nov, [facility] [address] [id number] [address] [place] [phone] Oct, Lumbar neuritis M54.16 [facility] [address] [id number] [address] [place] [id number] Oct, Lumbar neuritis M54.16 [facility] [address] [id number] [address] [place] [id number] Oct, Lumbar neuritis M54.16 [facility] [address] [id number] [address] [place] [id number] 26 Oct, 2016 Plantar fasciitis M72.2 and Pain in right knee M25.561 [facility] [address] [id number] [address] [place] [id number] 16 Oct, 2016 Lumbar neuritis M54.16 ; Cer vical neuritis M54.12 ; Other specified abdominal hernia without obstruction or gangrene K45.8 ; Heel spur, left M77.32 ; Plantar fasciitis M72.2 and Pain in right knee M25.561 [facility] [address] [id number] [address] [place] [id number] 13 Oct, 2016 [facility] [address] [id number] [address] [place] [id number] Aug, [facility] [address] [id number] [address] [place] [id number] Aug, [facility] [address] [id number] [address] [place] [id number] Apr, [facility] [address] [facility] [id number] [address] [place] [id number] Apr, [facility] [address] [id number] [address] [place] [address], [place] [phone] Mar, [facility] [address] [id number] [address] [place] [address], [place] [id number] Mar, [facility] [address] [id number] [address] [place] [address], [place] [id number] Feb, [facility] [address] [id number] [address] [place] [address], [place] [id number] Feb, [facility] [address] [id number] [address] [place] [address], [place] [id number] Feb, [facility] [address] [id number] [address] [place] [address], [place] [id number] Feb, [facility] [address] [id number] [address] [place] [address], [place] [id number] Feb, [facility] [address] [id number] [address] [place] [phone] Feb, [facility] [address] [id number] [address] [place] [address], [place] [id number] Feb, [facility] [address] [id number] [address] [place] [id number] Feb, [facility] [address] [id number] [address] [place] [id number] 30 Sep, 2013 [facility] [address] [id number] [address] [place] [id number] 30 Sep, 2013 [facility] [address] [id number] [address] [place] [address], [place] [id number] 30 Sep, 2013 [facility] [address] [id number] [address] [place] [address], [place] [id number] 30 Sep, 2013 [facility] [address] [id number] [address] [place] [address], [place] [id number] 30 Sep, 2013 [facility] [address] [id number] [address] [place] [address], [place] [id number] 30 Sep, 2013 [facility] [address] [id number] [facility] [place] [id number] 26 Sep, 2013 [facility] [address] [id number] [facility] [place] [phone] 26 Sep, 2013 [facility] [address] [id number] [address] [place] [address], [place] [id number] 22 Sep, 2013 [facility] [address] [id number] [address] [place] [address], [place] [id number] 22 Sep, 2013 [facility] [address] [id number] [address] [place] [address], [place] [id number] 16 Sep, 2013 [facility] [address] [id number] [address] [place] [address], [place] [id number] 16 Sep, 2013 [facility] [address] [id number] [address] [place] [address], [place] [id number] 16 Sep, 2013 [facility] [address] [id number] [address] [place] [address], [place] [id number] 16 Sep, 2013 [facility] [address] [id number] [address] [place] [address], [place] [id number] 12 Sep, 2013 [facility] [address] [id number] [address] [place] [address], [place] [address] 12 Sep, 2014 [facility] [address] [id number] [address] [place] [address], [place] [address] 12 Sep, 2014 [facility] [address] [id number] [address] [place] [address], [place] [address] 12 Sep, 2013 [facility] [address] [id number] [address] [place] [address], [place] [address] 09 Sep, 2013 [facility] [address] [id number] [address] [place] [address], [place] [address] 09 Sep, 2013 [facility] [address] [id number] [address] [place] [address], [place] [address] 09 Sep, 2013 [facility] [address] [id number] [facility] [place] [address] Jan, [facility] [address] [id number] [facility] [place] [address] Jan, [facility] [address] [id number] [facility] [place] [address] Jan, [facility] [address] [id number] [facility] [address] Dec, [facility] [address] [id number] [facility] [place] [address] Dec, [facility] [address] [id number] [address] [place] [address], [place] [address] Dec, [facility] [address] [id number] [address] [place] [address], [place] [address] Dec, [facility] [address] [id number] [address] [place] [address], [place] [address] Dec, [facility] [address] [id number] [address] [place] [address], [place] [address] Dec, [facility] [address] [id number] [address] [place] [address], [place] [address] Dec, [facility] [address] [id number] [address] [place] [address], [place] [address] Dec, [facility] [address] [id number] [address] [place] [address], [place] [address] Dec, [facility] [address] [id number] [address] [place] [address], [place] [address] Dec, [facility] [address] [id number] [address] [place] [address], [place] [address] Dec, [facility] [address] [id number] [address] [place] [address], [place] [address] Dec, [facility] [address] [id number] [address] [place] [address], [place] [address] Dec, [facility] [address] [id number] [facility] [place] [address] Dec, [facility] [address] [id number] [address] [place] [address], [place] [address] Dec, [facility] [address] [id number] [address] [place] [address], [place] [address] Dec, [facility] [address] [id number] [address] [place] [address], [place] [address] Dec, [facility] [address] [id number] [address] [place] [address], [place] [address] Dec, [facility] [address] [id number] [address] [place] [address], [place] [address] Dec, [facility] [address] [id number] [address] [place] [address], [place] [address] Nov, [facility] [address] [id number] [address] [place] [address], [place] [address] Nov, [facility] [address] [id number] [address] [place] [address], [place] [address] Nov, [facility] [address] [id number] [address] [place] [address], [place] [address] Nov, [facility] [address] [id number] [address] [place] [address], [place] [address] Nov, [facility] [address] [id number] [address] [place] [address], [place] [address] Nov, [facility] [address] [id number] [address] [place] [address], [place] [address] Nov, [facility] [address] [id number] [address] [place] [address], [place] [address] Nov, [facility] [address] [id number] [address] [place] [address], [place] [address] Nov, [facility] [address] [id number] [address] [place] [phone] Nov, [facility] [address] [facility] [id number] [address] [place] [phone] Nov, [facility] [address] [facility] [id number] [address] [place] [phone] Oct, [facility] [address] [facility] [id number] [address] [place] [phone] Oct, [facility] [address] [facility] [id number] [address] [place] [id number] Oct, [facility] [address] [facility] [id number] [address] [place] [id number] Apr, IMMUNIZATIONS No Known Immunizations SOCIAL HISTORY Never Assessed REASON FOR VISIT EMR[place] [place] CARE VITAL SIGNS MEDICATIONS Unknown [...]
--- OUTSIDE RECORDS SUMMARY | 2019-11-23 06:21 | XMS REPORT ---
Author Author Pal Bajwa Doctor Organization [facility] Address Unknown Phone Unavailable Care Team Providers Care Die Technician Name Role Phone Migration, Doctor Unavailable Unavailable PROBLEMS Type Condition ICD9-CM Code VGC25-HO Code Onset Dates Condition S tatus SNOMED Code Problem Lumbago with sciatica, right side M54.41 Active 308265498803853 Problem Other chronic pain G89.29 Active 8 7092739 Problem Bilateral primary osteoarthritis of knee M17.0 Active 686823931 Problem Chronic pain syndrome G89.4 Active 055991437 Problem Anxiety disorder, unspecified F41.9 Active 998738862 Problem Lumbago with sciatica, left side M54.42 Active 139371875 ALLERGIES Substance Reaction Event Type Date Status Klonopin 0.5 Mg Tablet Unknown Non Drug Allergy Aug, A ctive Cymbalta 60 Mg Capsule,delayed Release(dr/ec) Unknown No n Drug Allergy Aug, Active ENCOUNTERS Encounter Location Date Diagnosis [facility] [address] [id number] [address] [place] [id number] Oct, [facility] [address] [id number] [address] [place] [phone] Oct, [facility] [address] [id number] [address] [place] [id number] Oct, Acute bronchitis, unspecifie d organism J20.9 and Nasal congestion R09.81 [facility] [address] [id number] [address] [place] [id number] September, [facility] [address] [id number] [address] [place] [id number] Aug, Lumbago with sciatica, left side M54.42 ; Lumbago with sciatica, right side M54.41 and Other chronic pain G89.29 [facility] [address] [id number] [address] [place] [id number] Aug, [facility] [address] [id number] [address] [place] [id number] Jul, [facility] [address] [id number] [address] [place] [phone] Jun, [facility] [address] [id number] [address] [place] [id number] May, [facility] [address] [id number] [address] [place] [address] Apr, Pain in right knee M25.561 [facility] [address] [id number] [address] [place] [id number] Apr, Pain in right knee M25.561 [facility] [address] [id number] [address] [place] [phone] Mar, Pain in right knee M25.561 [facility] [address] [id number] [address] [place] [id number] Mar, [facility] [address] [id number] [address] [place] [id number] Mar, Chronic pain syndrome G89.4 [facility] [address] [id number] [address] [place] [phone] Feb, [facility] [address] [id number] [address] [place] [id number] Feb, [facility] [address] [id number] [address] [place] [id number] Dec, [facility] [address] [id number] [address] [place] [id number] Dec, [facility] [address] [id number] [address] [place] [id number] Nov, Chronic pain syndrome G89.4 [facility] [address] [id number] [address] [place] [id number] Nov, [facility] [address] [id number] [address] [place] [id number] Oct, [facility] [address] [id number] [address] [place] [id number] Oct, [facility] [address] [id number] [address] [place] [id number] Oct, [facility] [address] [facility] [id number] [address] [place] [id number] Oct, Allergic reaction to drug, s ubsequent encounter T78.40XD [facility] [address] [id number] [address] [place] [id number] September, [facility] [address] [facility] [id number] [address] [place] [id number] September, [facility] [address] [facility] [id number] [address] [place] [phone] September, Low back pain radiating to l ower extremity M54.5 [facility] [address] [id number] [address] [place] [id number] Aug, [facility] [address] [facility] [id number] [address] [place] [id number] Aug, [facility] [address] [id number] [address] [place] [id number] Aug, [facility] [address] [id number] [address] [place] [phone] Aug, [facility] [address] [facility] [id number] [address] [place] [id number] Aug, Incisional infection, initia l encounter T81.4XXA [facility] [address] [id number] [address] [place] [id number] Aug, [facility] [address] [facility] [id number] [address] [place] [id number] Jul, [facility] [address] [id number] [address] [place] [id number] Jul, [facility] [address] [facility] [id number] [address] [place] [id number] Jul, Chronic pain syndrome G89.4 [facility] [address] [facility] [id number] [address] [place] [id number] Jul, Pre-op evaluation Z01.818 [facility] [address] [facility] [id number] [address] [place] [phone] Jul, [facility] [address] [facility] [id number] [address] [place] [id number] Jun, Anxiety disorder, unspecifie d F41.9 and Chronic pain syndrome G89.4 [facility] [address] [id number] [address] [place] [id number] Jun, [facility] [address] [facility] [id number] [address] [place] [id number] Jun, [facility] [address] [facility] [id number] [address] [place] [phone] Jun, [facility] [address] [id number] [address] [place] [phone] Jun, [facility] [address] [facility] [id number] [address] [place] [id number] Jun, Lumbar neuritis M54.16 [facility] [address] [facility] [id number] [address] [place] [phone] May, [facility] [address] [facility] [id number] [address] [place] [phone] May, [facility] [address] [id number] [address] [place] [id number] May, Encounter for therapeutic dr ug level monitoring Z51.81 ; Encounter for immunization Z23 and Chronic pain syndrome G89.4 [facility] [address] [id number] [address] [place] [phone] May, Lumbar neuritis M54.16 [facility] [address] [id number] [address] [place] [id number] May, [facility] [address] [id number] [address] [place] [phone] Apr, Lumbar neuritis M54.16 [facility] [address] [id number] [address] [place] [id number] Apr, [facility] [address] [id number] [address] [place] [phone] Mar, Lumbar neuritis M54.16 [facility] [address] [id number] [address] [place] [phone] Mar, [facility] [address] [id number] [address] [place] [id number] Mar, [facility] [address] [id number] [address] [place] [phone] Feb, Lumbar neuritis M54.16 [facility] [address] [id number] [address] [place] [id number] 18 Feb, 2017 Lumbar neuritis M54.16 [facility] [address] [id number] [address] [place] [id number] 16 Feb, 2017 [facility] [address] [id number] [address] [place] [id number] 09 Feb, 2017 [facility] [address] [id number] [address] [place] [id number] 25 Jan, 2017 [facility] [address] [id number] [address] [place] [id number] 22 Sep, 2016 Peroneal tendonitis of left lower extremity M76.72 [facility] [address] [id number] [address] [place] [id number] 20 Jan, 2016 Lumbar neuritis M54.16 [facility] [address] [id number] [address] [place] [id number] Jan, [facility] [address] [id number] [address] [place] [id number] Dec, Lumbar neuritis M54.16 [facility] [address] [id number] [address] [place] [phone] Dec, [facility] [address] [id number] [address] [place] [id number] Dec, Pain in right knee M25.561 ; Lumbar neuritis M54.16 and Cervical neuritis M54.12 [facility] [address] [id number] [address] [place] [id number] Dec, [facility] [address] [id number] [address] [place] [id number] Dec, [facility] [address] [id number] [address] [place] [id number] Nov, Lumbar neuritis M54.16 [facility] [address] [id number] [address] [place] [phone] Nov, Bilateral primary osteoarthr itis of knee M17.0 [facility] [address] [id number] [address] [place] [phone] Nov, [facility] [address] [id number] [address] [place] [id number] Nov, Bronchitis J40 and Plantar f asciitis M72.2 [facility] [address] [id number] [address] [place] [phone] Nov, [facility] [address] [facility] [id number] [address] [place] [id number] Oct, Lumbar neuritis M54.16 [facility] [address] [id number] [address] [place] [id number] Oct, Lumbar neuritis M54.16 [facility] [address] [id number] [address] [place] [id number] 28 Oct, 2016 Lumbar neuritis M54.16 [facility] [address] [id number] [address] [place] [phone] 26 Oct, 2016 Plantar fasciitis M72.2 and Pain in right knee M25.561 [facility] [address] [id number] [address] [place] [id number] 16 Oct, 2016 Lumbar neuritis M54.16 ; Cer vical neuritis M54.12 ; Other specified abdominal hernia without obstruction or gangrene K45.8 ; Heel spur, left M77.32 ; Plantar fasciitis M72.2 and Pain in right knee M25.561 [facility] [address] [id number] [address] [place] [id number] 13 Oct, 2016 [facility] [address] [id number] [address] [place] [id number] 14 Aug, 2014 [facility] [address] [id number] [address] [place] [id number] Aug, [facility] [address] [id number] [address] [place] [phone] Apr, [facility] [address] [id number] [address] [place] [id number] Apr, [facility] [address] [id number] [address] [place] [phone] Mar, [facility] [address] [id number] [address] [place] [id number] Mar, [facility] [address] [id number] [address] [place] [phone] Feb, [facility] [address] [id number] [address] [place] [phone] Feb, [facility] [address] [id number] [address] [place] [phone] Feb, [facility] [address] [id number] [address] [place] [phone] 09 Feb, 2013 [facility] [address] [id number] [address] [place] [address], [place] [id number] 07 Feb, 2013 [facility] [address] [id number] [address] [place] [address], [place] [address] 07 Feb, 2013 [facility] [address] [id number] [address] [place] [address], [place] [id number] 07 Feb, 2013 [facility] [address] [id number] [address] [place] [address], [place] [address] 07 Feb, 2013 [facility] [address] [id number] [address] [place] [address], [place] [address] 30 Sep, 2013 [facility] [address] [id number] [address] [place] [address], [place] [address] 30 Sep, 2013 [facility] [address] [id number] [address] [place] [address], [place] [address] 30 Sep, 2013 [facility] [address] [id number] [address] [place] [address], [place] [id number] 30 Sep, 2013 [facility] [address] [id number] [address] [place] [address], [place] [address] 30 Sep, 2013 [facility] [address] [id number] [address] [place] [address], [place] [address] 30 Sep, 2013 [facility] [address] [id number] [address] [place] [address], [place] [address] 26 Sep, 2013 [facility] [address] [id number] [address] [place] [address], [place] [address] 26 Sep, 2013 [facility] [address] [id number] [address] [place] [address], [place] [address] 22 Sep, 2013 [facility] [address] [id number] [address] [place] [address], [place] [address] 22 Sep, 2013 [facility] [address] [id number] [address] [place] [address], [place] [address] 16 Sep, 2013 [facility] [address] [id number] [facility] [place] [address] 16 Sep, 2013 [facility] [address] [id number] [facility] [place] [address] 16 Sep, 2013 [facility] [address] [id number] [facility] [place] [address] 16 Sep, 2013 [facility] [address] [id number] [address] [place] [address], [place] [address] 12 Sep, 2013 [facility] [address] [id number] [address] [place] [address], [place] [address] 12 Sep, 2013 [facility] [address] [id number] [address] [place] [address], [place] [address] 12 Jan, 2013 [facility] [address] [id number] [address] [place] [address], [place] [address] 12 Jan, 2013 [facility] [address] [id number] [address] [place] [address], [place] [address] 09 Sep, 2013 [facility] [address] [id number] [address] [place] [address], [place] [address] 09 Sep, 2013 [facility] [address] [id number] [address] [place] [address], [place] [address] 09 Jan, 2013 [facility] [address] [id number] [address] [place] [address], [place] [id number] 09 Jan, 2013 [facility] [address] [id number] [address] [place] [address], [place] [address] 05 Jan, 2013 [facility] [address] [id number] [address] [place] [address], [place] [address] Jan, 2013 [facility] [address] [id number] [address] [place] [address], [place] [address] Dec, [facility] [address] [id number] [address] [place] [address], [place] [address] Dec, [facility] [address] [id number] [address] [place] [address], [place] [address] Dec, [facility] [address] [id number] [facility] [place] [address] Dec, [facility] [address] [id number] [facility] [place] [address] Dec, [facility] [address] [id number] [facility] [place] [address] Dec, [facility] [address] [id number] [facility] [place] [address] Dec, [facility] [address] [id number] [facility] [place] [address] Dec, [facility] [address] [id number] [address] [place] [address], [place] [address] Dec, [facility] [address] [id number] [address] [place] [address], [place] [address] Dec, [facility] [address] [id number] [address] [place] [address], [place] [address] Dec, [facility] [address] [id number] [address] [place] [address], [place] [address] Dec, [facility] [address] [id number] [address] [place] [address], [place] [address] Dec, [facility] [address] [id number] [address] [place] [address], [place] [address] Dec, [facility] [address] [id number] [address] [place] [address], [place] [address] Dec, [facility] [address] [id number] [address] [place] [address], [place] [address] Dec, [facility] [address] [id number] [address] [place] [address], [place] [address] Dec, [facility] [address] [id number] [address] [place] [address], [place] [address] Dec, [facility] [address] [id number] [address] [place] [address], [place] [address] Dec, [facility] [address] [id number] [address] [place] [address], [place] [address] Nov, [facility] [address] [id number] [address] [place] [address], [place] [address] Nov, [facility] [address] [id number] [address] [place] [address], [place] [address] Nov, [facility] [address] [id number] [address] [place] [address], [place] [address] Nov, [facility] [address] [id number] [address] [place] [address], [place] [address] Nov, [facility] [address] [id number] [address] [place] [address], [place] [address] Nov, [facility] [address] [id number] [address] [place] [address], [place] [address] Nov, [facility] [address] [id number] [address] [place] [address], [place] [address] Nov, [facility] [address] [id number] [address] [place] [address], [place] [address] Nov, [facility] [address] [id number] [address] [place] [address], [place] [address] Nov, [facility] [address] [id number] [address] [place] [address], [place] [address] Nov, [facility] [address] [id number] [address] [place] [id number] Oct, [facility] [address] [id number] [address] [place] [id number] Oct, [facility] [address] [id number] [address] [place] [address], [place] [id number] Oct, [facility] [place] [address] [id number] [address] [place] [address], [place] [id number] 07 Dec, 2009 IMMUNIZATIONS No Known Immunizations SOCIAL HISTORY Never Assessed REASON FOR VISIT [facility] [place] PLAN OF CARE VITAL SIGNS MEDICATIONS Medication Instructions Dosage Frequency Start Date End Date Duration S tatus Prevacid 30 mg take 1 Tablet by Po route 1 time per day Dec, Active Lansoprazole 30 mg take 1 capsule (30 m g) by oral route once daily before a meal Jan, Active Advair Diskus 250-50 mcg/dose 1 puffs by Inhalation route 2 times per day for COPD maintenance Mar, Active Ibuprofen 800 mg take 1 tablet by Ora l route 3 times per day with food due for f/u appt--must be seen Apr, A ctive Loratadine 10 mg take 1 tablet by Ora l route 1 time per day take at hs. for allergy Jan, Active Maxalt 10 mg 1 tablet by Oral route PRN for headache. repeat in 2 hours. Jan, Active Voltaren 1 % 1 Application by Transdermal route 4 time s per day Jan, Active Hydrocodone-Acetaminophen 5-325 mg take 1 Tablet by Po route 2 times per day PRN MUST LAST 30 DAYS Jan, Active Lipitor 80 mg 1 tablet by Oral route 1 time per day 30 S 2013 Active Hydrochlorothiazide 12.5 mg 1 Tablet by Oral route 1 time per day take in the am. for blood pressure Mar, Activ e morphine 60 mg take 1 capsule by Or al route 1 time per day PRN MUST LAST 30 DAYS Jan, Active Captopril 25 mg take 1 tablet (25 mg) by oral route 2 times per day Nov, Active Aspirin 81 mg 1 tablet by Oral route 1 time per day A 2013 Active RESULTS No Results PROCEDURES No Known [...]
--- OUTSIDE RECORDS SUMMARY | 2019-11-23 06:22 | XMS REPORT ---
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 Name Role Phone Migration, Doctor Unavailable Unavailable PROBLEMS Type Condition ICD9-CM Code UDO25-IW Code Onset Dates Condition S tatus SNOMED Code Problem Chronic pain syndrome G89.4 Active 606380785 Problem Anxiety disorder, unspecified F41.9 Active 598394739 Problem Bilateral primary osteoarthritis of knee M17.0 Active [id number] ALLERGIES No Information ENCOUNTERS Encounter Location Date Diagnosis [facility] [address] [id number] [address] [place] [phone] Aug, [facility] [address] [id number] [address] [place] [phone] Jul, [facility] [address] [id number] [address] [place] [phone] Jun, [facility] [address] [id number] [address] [place] [phone] May, [facility] [address] [id number] [address] [place] [phone] Apr, Pain in right knee M25.561 [facility] [address] [id number] [address] [place] [phone] Apr, Pain in right knee M25.561 [facility] [address] [id number] [address] [place] [phone] Mar, Pain in right knee M25.561 [facility] [address] [id number] [address] [place] [phone] Mar, [facility] [address] [id number] [address] [place] [phone] Mar, Chronic pain syndrome G89.4 [facility] [address] [id number] [address] [place] [phone] Feb, [facility] [address] [id number] [address] [place] [phone] Feb, [facility] [address] [id number] [address] [place] [phone] Dec, [facility] [address] [id number] [address] [place] [phone] Dec, [facility] [address] [id number] [address] [place] [phone] Nov, Chronic pain syndrome G89.4 [facility] [address] [id number] [address] [place] [phone] Nov, [facility] [address] [id number] [address] [place] [phone] Oct, [facility] [address] [id number] [address] [place] [phone] Oct, [facility] [address] [id number] [address] [place] [phone] Oct, [facility] [address] [facility] [id number] [address] [place] [phone] Oct, Allergic reaction to drug, s ubsequent encounter T78.40XD [facility] [address] [id number] [address] [place] [phone] September, [facility] [address] [id number] [address] [place] [phone] September, [facility] [address] [id number] [address] [place] [phone] September, Low back pain radiating to l ower extremity M54.5 [facility] [address] [id number] [address] [place] [phone] Aug, [facility] [address] [id number] [address] [place] [phone] Aug, [facility] [address] [id number] [address] [place] [phone] Aug, [facility] [address] [id number] [address] [place] [phone] Aug, [facility] [address] [facility] [id number] [address] [place] [phone] Aug, Incisional infection, initia l encounter T81.4XXA [facility] [address] [id number] [address] [place] [phone] Aug, [facility] [address] [id number] [address] [place] [phone] Jul, [facility] [address] [facility] [id number] [address] [place] [phone] Jul, [facility] [address] [facility] [id number] [address] [place] [phone] Jul, Chronic pain syndrome G89.4 [facility] [address] [id number] [address] [place] [phone] Jul, Pre-op evaluation Z01.818 [facility] [address] [facility] [id number] [address] [place] [phone] Jul, [facility] [address] [facility] [id number] [address] [place] [phone] Jun, Anxiety disorder, unspecifie d F41.9 and Chronic pain syndrome G89.4 [facility] [address] [id number] [address] [place] [phone] Jun, [facility] [address] [id number] [address] [place] [phone] Jun, [facility] [address] [facility] [id number] [address] [place] [phone] Jun, [facility] [address] [facility] [id number] [address] [place] [phone] Jun, [facility] [address] [id number] [address] [place] [phone] Jun, Lumbar neuritis M54.16 [facility] [address] [id number] [address] [place] [phone] May, [facility] [address] [id number] [address] [place] [phone] May, [facility] [address] [id number] [address] [place] [phone] May, Encounter for therapeutic dr ug level monitoring Z51.81 ; Encounter for immunization Z23 and Chronic pain syndrome G89.4 [facility] [address] [id number] [address] [place] [phone] May, Lumbar neuritis M54.16 [facility] [address] [id number] [address] [place] [phone] May, [facility] [address] [id number] [address] [place] [phone] Apr, Lumbar neuritis M54.16 [facility] [address] [id number] [address] [place] [phone] Apr, [facility] [address] [id number] [address] [place] [phone] Mar, Lumbar neuritis M54.16 [facility] [address] [id number] [address] [place] [phone] Mar, [facility] [address] [id number] [address] [place] [phone] Mar, [facility] [address] [id number] [address] [place] [phone] Feb, Lumbar neuritis M54.16 [facility] [address] [id number] [address] [place] [phone] Feb, Lumbar neuritis M54.16 [facility] [address] [id number] [address] [place] [phone] 16 Feb, 2017 [facility] [address] [id number] [address] [place] [phone] 09 Feb, 2017 [facility] [address] [id number] [address] [place] [phone] 25 Jan, 2017 [facility] [address] [id number] [address] [place] [phone] 22 Jan, 2017 Peroneal tendonitis of left lower extremity M76.72 [facility] [address] [id number] [address] [place] [phone] 20 Jan, 2017 Lumbar neuritis M54.16 [facility] [address] [id number] [address] [place] [phone] Jan, [facility] [address] [id number] [address] [place] [phone] Dec, Lumbar neuritis M54.16 [facility] [address] [id number] [address] [place] [phone] Dec, [facility] [address] [id number] [address] [place] [phone] Dec, Pain in right knee M25.561 ; Lumbar neuritis M54.16 and Cervical neuritis M54.12 [facility] [address] [id number] [address] [place] [phone] Dec, [facility] [address] [id number] [address] [place] [phone] Dec, [facility] [address] [id number] [address] [place] [phone] Nov, Lumbar neuritis M54.16 [facility] [address] [id number] [address] [place] [phone] Nov, Bilateral primary osteoarthr itis of knee M17.0 [facility] [address] [id number] [address] [place] [phone] 14 Nov, 2016 [facility] [address] [id number] [address] [place] [phone] Nov, Bronchitis J40 and Plantar f asciitis M72.2 [facility] [address] [id number] [address] [place] [phone] Nov, [facility] [address] [id number] [address] [place] [phone] Oct, Lumbar neuritis M54.16 [facility] [address] [id number] [address] [place] [phone] Oct, Lumbar neuritis M54.16 [facility] [address] [id number] [address] [place] [phone] Oct, Lumbar neuritis M54.16 [facility] [address] [id number] [address] [place] [phone] 26 Oct, 2016 Plantar fasciitis M72.2 and Pain in right knee M25.561 [facility] [address] [id number] [address] [place] [phone] 16 Oct, 2016 Lumbar neuritis M54.16 ; Cer vical neuritis M54.12 ; Other specified abdominal hernia without obstruction or gangrene K45.8 ; Heel spur, left M77.32 ; Plantar fasciitis M72.2 and Pain in right knee M25.561 [facility] [address] [id number] [address] [place] [phone] 13 Oct, 2016 [facility] [address] [id number] [address] [place] [phone] Aug, [facility] [address] [id number] [address] [place] [phone] Aug, [facility] [address] [id number] [address] [place] [phone] Apr, [facility] [address] [facility] [id number] [address] [place] [phone] Apr, [facility] [address] [id number] [address] [place] [address], [place] [address] Mar, [facility] [address] [id number] [address] [place] [address], [place] [address] Mar, [facility] [address] [id number] [address] [place] [address], [place] [address] Feb, [facility] [address] [id number] [address] [place] [address], [place] [address] Feb, [facility] [address] [id number] [address] [place] [address], [place] [address] Feb, [facility] [address] [id number] [address] [place] [address], [place] [address] Feb, [facility] [address] [id number] [address] [place] [address], [place] [address] Feb, [facility] [address] [id number] [address] [place] [phone] Feb, [facility] [address] [id number] [address] [place] [address], [place] [address] Feb, [facility] [address] [id number] [address] [place] [phone] Feb, [facility] [address] [id number] [address] [place] [phone] 30 Sep, 2013 [facility] [address] [id number] [address] [place] [phone] 30 Sep, 2013 [facility] [address] [id number] [address] [place] [address], [place] [address] 30 Sep, 2013 [facility] [address] [id number] [address] [place] [address], [place] [address] 30 Sep, 2013 [facility] [address] [id number] [address] [place] [address], [place] [address] 30 Sep, 2013 [facility] [address] [id number] [address] [place] [address], [place] [address] 30 Sep, 2013 [facility] [address] [id number] [facility] [place] [address] 26 Sep, 2013 [facility] [address] [id number] [facility] [place] [address] 26 Sep, 2013 [facility] [address] [id number] [address] [place] [address], [place] [address] 22 Sep, 2013 [facility] [address] [id number] [address] [place] [address], [place] [address] 22 Sep, 2013 [facility] [address] [id number] [address] [place] [address], [place] [address] 16 Sep, 2013 [facility] [address] [id number] [address] [place] [address], [place] [address] 16 Sep, 2013 [facility] [address] [id number] [address] [place] [address], [place] [address] 16 Sep, 2013 [facility] [address] [id number] [address] [place] [address], [place] [address] 16 Sep, 2013 [facility] [address] [id number] [address] [place] [address], [place] [address] 12 Sep, 2013 [facility] [address] [id number] [address] [place] [address], [place] [address] 12 Sep, 2014 [facility] [address] [id number] [address] [place] [address], [place] [address] 12 Sep, 2014 [facility] [address] [id number] [address] [place] [address], [place] [address] 12 Sep, 2013 [facility] [address] [id number] [address] [place] [address], [place] [address] 09 Sep, 2013 [facility] [address] [id number] [address] [place] [address], [place] [address] 09 Sep, 2013 [facility] [address] [id number] [address] [place] [address], [place] [address] 09 Sep, 2013 [facility] [address] [id number] [facility] [place] [address] Jan, [facility] [address] [id number] [facility] [place] [address] Jan, [facility] [address] [id number] [facility] [place] [address] Jan, [facility] [address] [id number] [facility] [place] [address] Dec, [facility] [address] [id number] [facility] [place] [address] Dec, [facility] [address] [id number] [address] [place] [address], [place] [address] Dec, [facility] [address] [id number] [address] [place] [address], [place] [address] Dec, [facility] [address] [id number] [address] [place] [address], [place] [address] Dec, [facility] [address] [id number] [address] [place] [address], [place] [address] Dec, [facility] [address] [id number] [address] [place] [address], [place] [address] Dec, [facility] [address] [id number] [address] [place] [address], [place] [address] Dec, [facility] [address] [id number] [address] [place] [address], [place] [address] Dec, [facility] [address] [id number] [address] [place] [address], [place] [address] Dec, [facility] [address] [id number] [address] [place] [address], [place] [address] Dec, [facility] [address] [id number] [address] [place] [address], [place] [address] Dec, [facility] [address] [id number] [address] [place] [address], [place] [address] Dec, [facility] [address] [id number] [facility] [place] [address] Dec, [facility] [address] [id number] [address] [place] [address], [place] [address] Dec, [facility] [address] [id number] [address] [place] [address], [place] [address] Dec, [facility] [address] [id number] [address] [place] [address], [place] [address] Dec, [facility] [address] [id number] [address] [place] [address], [place] [address] Dec, [facility] [address] [id number] [address] [place] [address], [place] [address] Dec, [facility] [address] [id number] [address] [place] [address], [place] [address] Nov, [facility] [address] [id number] [address] [place] [address], [place] [address] Nov, [facility] [address] [id number] [address] [place] [address], [place] [address] Nov, [facility] [address] [id number] [address] [place] [address], [place] [address] Nov, [facility] [address] [id number] [address] [place] [address], [place] [address] Nov, [facility] [address] [id number] [address] [place] [address], [place] [address] Nov, [facility] [address] [id number] [address] [place] [address], [place] [address] Nov, [facility] [address] [id number] [address] [place] [address], [place] [address] Nov, [facility] [address] [id number] [address] [place] [address], [place] [address] Nov, [facility] [address] [id number] [address] [place] [address] Nov, [facility] [address] [facility] [id number] [address] [place] [phone] Nov, [facility] [address] [facility] [id number] [address] [place] [phone] Oct, [facility] [address] [facility] [id number] [address] [place] [id number] Oct, [facility] [address] [facility] [id number] [address] [place] [id number] Oct, [facility] [address] [facility] [id number] [address] [place] [address] Apr, IMMUNIZATIONS No Known Immunizations SOCIAL HISTORY Never Assessed REASON FOR VISIT EMR-[facility] PLAN OF CARE VITAL SIGNS MEDICATIONS Unknown [...]
--- OUTSIDE RECORDS SUMMARY | 2019-11-23 06:22 | XMS REPORT ---
Author Author Pal YIN Organization [facility] Address [address] [place] [address] Care Team Providers Care Consultant Electronics Name Role Phone PREETHI YIN Unavailable PROBLEMS Type Condition ICD9-CM Code [id number] Code Onset Dates Condition S tatus SNOMED Code Problem Anxiety disorder, unspecified F41.9 Active 084165030 Problem Chronic pain syndrome G89.4 Active 518182206 Problem Bilateral primary osteoarthritis of knee M17.0 Active [id number] ALLERGIES No Information ENCOUNTERS Encounter Location Date Diagnosis [facility] [address] [id number] [address] [place] [address] Apr, Pain in right knee M25.561 [facility] [address] [id number] [address] [place] [address] Mar, Pain in right knee M25.561 [facility] [address] [id number] [address] [place] [address] Mar, [facility] [address] [id number] [address] [place] [address] Mar, Chronic pain syndrome G89.4 [facility] [address] [id number] [address] [place] [address] Feb, [facility] [address] [id number] [address] [place] [address] Feb, [facility] [address] [id number] [address] [place] [address] Dec, [facility] [address] [id number] [address] [place] [address] Dec, [facility] [address] [facility] [id number] [address] [place] [address] Nov, Chronic pain syndrome G89.4 [facility] [address] [id number] [address] [place] [address] Nov, [facility] [address] [facility] [id number] [address] [place] [address] Oct, [facility] [address] [id number] [address] [place] [address] Oct, [facility] [address] [id number] [address] [place] [address] Oct, [facility] [address] [facility] [id number] [address] [place] [address] Oct, Allergic reaction to drug, s ubsequent encounter T78.40XD [facility] [address] [facility] [id number] [address] [place] [address] September, [facility] [address] [facility] [id number] [address] [place] [address] September, [facility] [address] [facility] [id number] [address] [place] [address] September, Low back pain radiating to l ower extremity M54.5 [facility] [address] [facility] [id number] [address] [place] [address] Aug, [facility] [address] [facility] [id number] [address] [place] [address] Aug, [facility] [address] [facility] [id number] [address] [place] [address] Aug, [facility] [address] [facility] [id number] [address] [place] [address] Aug, [facility] [address] [facility] [id number] [address] [place] [address] Aug, Incisional infection, initia l encounter T81.4XXA [facility] [address] [facility] [id number] [address] [place] [address] Aug, [facility] [address] [facility] [id number] [address] [place] [address] Jul, [facility] [address] [facility] [id number] [address] [place] [address] Jul, [facility] [address] [facility] [id number] [address] [place] [address] Jul, Chronic pain syndrome G89.4 [facility] [address] [facility] [id number] [address] [place] [address] Jul, Pre-op evaluation Z01.818 [facility] [address] [facility] [id number] [address] [place] [address] Jul, [facility] [address] [facility] [id number] [address] [place] [address] Jun, Anxiety disorder, unspecifie d F41.9 and Chronic pain syndrome G89.4 [facility] [address] [facility] [id number] [address] [place] [address] Jun, [facility] [address] [facility] [id number] [address] [place] [address] Jun, [facility] [address] [facility] [id number] [address] [place] [address] Jun, [facility] [address] [facility] [id number] [address] [place] [address] Jun, [facility] [address] [facility] [id number] [address] [place] [address] Jun, Lumbar neuritis M54.16 [facility] [address] [facility] [id number] [address] [place] [address] May, [facility] [address] [facility] [id number] [address] [place] [address] May, [facility] [address] [facility] [id number] [address] [place] [address] May, Encounter for therapeutic dr heather level monitoring Z51.81 ; Encounter for immunization Z23 and Chronic pain syndrome G89.4 [facility] [address] [id number] [address] [place] [address] May, Lumbar neuritis M54.16 [facility] [address] [id number] [address] [place] [address] May, [facility] [address] [id number] [address] [place] [address] Apr, Lumbar neuritis M54.16 [facility] [address] [id number] [address] [place] [address] Apr, [facility] [address] [id number] [address] [place] [address] Mar, Lumbar neuritis M54.16 [facility] [address] [id number] [address] [place] [address] Mar, [facility] [address] [id number] [address] [place] [address] Mar, [facility] [address] [id number] [address] [place] [address] Feb, Lumbar neuritis M54.16 [facility] [address] [id number] [address] [place] [address] Feb, Lumbar neuritis M54.16 [facility] [address] [id number] [address] [place] [address] Feb, [facility] [address] [id number] [address] [place] [address] Feb, [facility] [address] [id number] [address] [place] [address] Jan, [facility] [address] [id number] [address] [place] [phone] 22 Jan, 2017 Peroneal tendonitis of left lower extremity M76.72 [facility] [address] [id number] [address] [place] [address] 20 Jan, 2017 Lumbar neuritis M54.16 [facility] [address] [id number] [address] [place] [address] 12 Jan, 2017 [facility] [address] [id number] [address] [place] [address] Dec, Lumbar neuritis M54.16 [facility] [address] [id number] [address] [place] [address] Dec, [facility] [address] [id number] [address] [place] [address] Dec, Pain in right knee M25.561 ; Lumbar neuritis M54.16 and Cervical neuritis M54.12 [facility] [address] [id number] [address] [place] [id number] Dec, [facility] [address] [id number] [address] [place] [address] Dec, [facility] [address] [id number] [address] [place] [address] Nov, Lumbar neuritis M54.16 [facility] [address] [id number] [address] [place] [phone] Nov, Bilateral primary osteoarthr itis of knee M17.0 [facility] [address] [facility] [id number] [address] [place] [address] Nov, [facility] [address] [facility] [id number] [address] [place] [address] Nov, Bronchitis J40 and Plantar f asciitis M72.2 [facility] [address] [facility] [id number] [address] [place] [address] Nov, [facility] [address] [facility] [id number] [address] [place] [address] Oct, Lumbar neuritis M54.16 [facility] [address] [id number] [address] [place] [address] 30 Oct, 2016 Lumbar neuritis M54.16 [facility] [address] [id number] [address] [place] [address] 28 Oct, 2016 Lumbar neuritis M54.16 [facility] [address] [id number] [address] [place] [address] 26 Oct, 2016 Plantar fasciitis M72.2 and Pain in right knee M25.561 [facility] [address] [id number] [address] [place] [address] 16 Oct, 2016 Lumbar neuritis M54.16 ; Cer vical neuritis M54.12 ; Other specified abdominal hernia without obstruction or gangrene K45.8 ; Heel spur, left M77.32 ; Plantar fasciitis M72.2 and Pain in right knee M25.561 [facility] [address] [id number] [address] [place] [id number] 13 Oct, 2016 [facility] [address] [id number] [address] [place] [id number] 14 Aug, 2014 [facility] [address] [id number] [address] [place] [address] Aug, [facility] [address] [id number] [address] [place] [id number] Apr, [facility] [address] [id number] [address] [place] [id number] Apr, [facility] [address] [id number] [address] [place] [phone] Mar, [facility] [address] [id number] [address] [place] [phone] Mar, [facility] [address] [id number] [address] [place] [id number] Feb, [facility] [address] [id number] [address] [place] [phone] Feb, [facility] [address] [id number] [address] [place] [address], [place] [address] 09 Feb, 2013 [facility] [address] [id number] [address] [place] [address], [place] [address] 09 Feb, 2013 [facility] [address] [id number] [address] [place] [address], [place] [address] Feb, 2013 [facility] [address] [id number] [address] [place] [address], [place] [address] Feb, 2013 [facility] [address] [id number] [address] [place] [address], [place] [address] 07 Feb, 2013 [facility] [address] [id number] [address] [place] [address], [place] [address] Feb, 2013 [facility] [address] [id number] [address] [place] [address], [place] [address] 30 Sep, 2013 [facility] [address] [id number] [address] [place] [address], [place] [address] 30 Sep, 2013 [facility] [address] [id number] [address] [place] [address], [place] [address] 30 Sep, 2013 [facility] [address] [id number] [address] [place] [address], [place] [address] 30 Sep, 2013 [facility] [address] [id number] [address] [place] [address], [place] [address] 30 Sep, 2013 [facility] [address] [id number] [address] [place] [address], [place] [address] 30 Sep, 2013 [facility] [address] [id number] [address] [place] [address], [place] [address] 26 Sep, 2013 [facility] [address] [id number] [address] [place] [address], [place] [address] 26 Sep, 2013 [facility] [address] [id number] [address] [place] [address], [place] [address] 22 Sep, 2013 [facility] [address] [id number] [address] [place] [address], [place] [address] 22 Sep, 2013 [facility] [address] [id number] [facility] [place] [address] 16 Sep, 2013 [facility] [address] [id number] [facility] [place] [address] 16 Sep, 2013 [facility] [address] [id number] [facility] [place] [address] 16 Sep, 2013 [facility] [address] [id number] [address] [place] [address], [place] [address] 16 Sep, 2013 [facility] [address] [id number] [address] [place] [address], [place] [address] 12 Jan, 2013 [facility] [address] [id number] [address] [place] [address], [place] [address] 12 Jan, 2013 [facility] [address] [id number] [address] [place] [address], [place] [address] 12 Jan, 2013 [facility] [address] [id number] [address] [place] [address], [place] [address] 12 Jan, 2013 [facility] [address] [id number] [address] [place] [address], [place] [address] 09 Jan, 2013 [facility] [address] [id number] [address] [place] [address], [place] [address] 09 Sep, 2013 [facility] [address] [id number] [address] [place] [address], [place] [address] 09 Jan, 2013 [facility] [address] [id number] [address] [place] [address], [place] [address] 09 Sep, 2013 [facility] [address] [id number] [address] [place] [address], [place] [address] 05 Sep, 2013 [facility] [address] [id number] [address] [place] [address], [place] [address] 05 Jan, 2013 [facility] [address] [id number] [address] [place] [address], [place] [address] Dec, [facility] [address] [id number] [address] [place] [address], [place] [address] Dec, [facility] [address] [id number] [facility] [place] [address] Dec, [facility] [address] [id number] [address] [place] [address], [place] [address] Dec, [facility] [address] [id number] [address] [place] [address], [place] [address] Dec, [facility] [address] [id number] [address] [place] [address], [place] [address] Dec, [facility] [address] [id number] [address] [place] [address], [place] [address] Dec, [facility] [address] [id number] [address] [place] [address], [place] [address] Dec, [facility] [address] [id number] [address] [place] [address], [place] [address] Dec, [facility] [address] [id number] [address] [place] [address], [place] [address] Dec, [facility] [address] [id number] [address] [place] [address], [place] [address] Dec, [facility] [address] [id number] [address] [place] [address], [place] [address] Dec, [facility] [address] [id number] [address] [place] [address], [place] [address] Dec, [facility] [address] [id number] [address] [place] [address], [place] [address] Dec, [facility] [address] [id number] [address] [place] [address], [place] [address] Dec, [facility] [address] [id number] [address] [place] [address], [place] [address] Dec, [facility] [address] [id number] [address] [place] [address], [place] [address] Dec, [facility] [address] [id number] [facility] [place] [address] Dec, [facility] [address] [id number] [address] [place] [address], [place] [address] Dec, [facility] [address] [id number] [address] [place] [address], [place] [address] Nov, [facility] [address] [id number] [address] [place] [address], [place] [address] Nov, [facility] [address] [id number] [address] [place] [address], [place] [address] Nov, [facility] [address] [id number] [address] [place] [address], [place] [address] Nov, [facility] [address] [id number] [address] [place] [address], [place] [address] Nov, [facility] [address] [id number] [address] [place] [address], [place] [address] Nov, [facility] [address] [id number] [address] [place] [address], [place] [address] Nov, [facility] [address] [id number] [address] [place] [address], [place] [address] Nov, [facility] [address] [id number] [address] [place] [address], [place] [address] Nov, [facility] [address] [id number] [address] [place] [address], [place] [address] Nov, [facility] [address] [id number] [address] [place] [address], [place] [address] Nov, [facility] [address] [id number] [address] [place] [address], [place] [address] Oct, [facility] [address] [id number] [address] [place] [address], [place] [address] Oct, [facility] [address] [id number] [address] [place] [address], [place] [address] Oct, [facility] [address] [facility] [id number] [address] [place] [address] Apr, IMMUNIZATIONS No Known Immunizations SOCIAL HISTORY Never Assessed REASON FOR VISIT Controlled Med Refill PLAN OF CARE VITAL SIGNS MEDICATIONS Medication Instructions Dosage Frequency Start Date End Date Duration S tatus Oxycodone-Acetaminophen 5-325 MG Orally every 4 hrs 1-2 tablet as n eeded 4h Apr, Active RESULTS No Results PROCEDURES No Known [...]
--- OUTSIDE RECORDS SUMMARY | 2019-11-23 06:22 | XMS REPORT ---
Author Author Pal YIN Organization 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 [address] [id number] [address] [place] [id number] Mar, Pain in right knee M25.561 [facility] [address] [id number] [address] [place] [phone] Mar, [facility] [address] [id number] [address] [place] [phone] Mar, Chronic pain syndrome G89.4 [facility] [address] [id number] [address] [place] [phone] Feb, [facility] [address] [facility] [id number] [address] [place] [phone] Feb, [facility] [address] [id number] [address] [place] [phone] Dec, [facility] [address] [id number] [address] [place] [phone] Dec, [facility] [address] [facility] [id number] [address] [place] [phone] Nov, Chronic pain syndrome G89.4 [facility] [address] [facility] [id number] [address] [place] [phone] Nov, [facility] [address] [id number] [address] [place] [phone] Oct, [facility] [address] [id number] [address] [place] [phone] Oct, [facility] [address] [id number] [address] [place] [phone] Oct, [facility] [address] [id number] [address] [place] [phone] Oct, Allergic reaction to drug, s ubsequent encounter T78.40XD [facility] [address] [id number] [address] [place] [phone] September, [facility] [address] [id number] [address] [place] [phone] September, [facility] [address] [facility] [id number] [address] [place] [phone] September, Low back pain radiating to l ower extremity M54.5 [facility] [address] [id number] [address] [place] [phone] Aug, [facility] [address] [id number] [address] [place] [phone] Aug, [facility] [address] [id number] [address] [place] [phone] Aug, [facility] [address] [id number] [address] [place] [phone] Aug, [facility] [address] [id number] [address] [place] [id number] Aug, Incisional infection, initia l encounter T81.4XXA [facility] [address] [id number] [address] [place] [phone] Aug, [facility] [address] [facility] [id number] [address] [place] [phone] Jul, [facility] [address] [id number] [address] [place] [phone] Jul, [facility] [address] [facility] [id number] [address] [place] [phone] Jul, Chronic pain syndrome G89.4 [facility] [address] [facility] [id number] [address] [place] [phone] Jul, Pre-op evaluation Z01.818 [facility] [address] [facility] [id number] [address] [place] [phone] Jul, [facility] [address] [facility] [id number] [address] [place] [phone] Jun, Anxiety disorder, unspecifie d F41.9 and Chronic pain syndrome G89.4 [facility] [address] [facility] [id number] [address] [place] [phone] Jun, [facility] [address] [facility] [id number] [address] [place] [phone] Jun, [facility] [address] [facility] [id number] [address] [place] [phone] Jun, [facility] [address] [facility] [id number] [address] [place] [phone] Jun, [facility] [address] [facility] [id number] [address] [place] [phone] Jun, Lumbar neuritis M54.16 [facility] [address] [facility] [id number] [address] [place] [phone] May, [facility] [address] [facility] [id number] [address] [place] [phone] May, [facility] [address] [place] [id number] [address] [place] [phone] May, Encounter for therapeutic dr ug level monitoring Z51.81 ; Encounter for immunization Z23 and Chronic pain syndrome G89.4 [facility] [address] [id number] [address] [place] [phone] May, Lumbar neuritis M54.16 [facility] [address] [id number] [address] [place] [phone] May, [facility] [address] [id number] [address] [place] [phone] Apr, Lumbar neuritis M54.16 [facility] [address] [id number] [address] [place] [phone] Apr, [facility] [address] [id number] [address] [place] [phone] Mar, Lumbar neuritis M54.16 [facility] [address] [id number] [address] [place] [phone] Mar, [facility] [address] [id number] [address] [place] [phone] Mar, [facility] [address] [id number] [address] [place] [phone] Feb, Lumbar neuritis M54.16 [facility] [address] [id number] [address] [place] [phone] 18 Feb, [address] [facility] [address] [id number] [address] [place] [phone] 16 Feb, 2017 [facility] [address] [id number] [address] [place] [phone] 09 Feb, 2017 [facility] [address] [id number] [address] [place] [phone] 25 Jan, 2017 [facility] [address] [id number] [address] [place] [phone] 22 Sep, 2016 Peroneal tendonitis of left lower extremity M76.72 [facility] [address] [id number] [address] [place] [phone] 20 Jan, [address] [facility] [address] [id number] [address] [place] [phone] Jan, [facility] [address] [id number] [address] [place] [phone] Dec, Lumbar neuritis M54.16 [facility] [address] [id number] [address] [place] [phone] Dec, [facility] [address] [id number] [address] [place] [phone] Dec, Pain in right knee M25.561 ; Lumbar neuritis M54.16 and Cervical neuritis M54.12 [facility] [address] [id number] [address] [place] [phone] Dec, [facility] [address] [id number] [address] [place] [phone] Dec, [facility] [address] [id number] [address] [place] [phone] Nov, Lumbar neuritis M54.16 [facility] [address] [id number] [address] [place] [phone] Nov, Bilateral primary osteoarthr itis of knee M17.0 [facility] [address] [id number] [address] [place] [phone] Nov, [facility] [address] [id number] [address] [place] [phone] Nov, Bronchitis J40 and Plantar f asciitis M72.2 [facility] [address] [id number] [address] [place] [phone] Nov, [facility] [address] [id number] [address] [place] [phone] Oct, Lumbar neuritis M54.16 [facility] [address] [id number] [address] [place] [phone] Oct, Lumbar neuritis M54.16 [facility] [address] [id number] [address] [place] [phone] 28 Oct, 2016 Lumbar neuritis M54.16 [facility] [address] [id number] [address] [place] [phone] 26 Oct, 2016 Plantar fasciitis M72.2 and Pain in right knee M25.561 [facility] [address] [id number] [address] [place] [phone] 16 Oct, 2016 Lumbar neuritis M54.16 ; Cer vical neuritis M54.12 ; Other specified abdominal hernia without obstruction or gangrene K45.8 ; Heel spur, left M77.32 ; Plantar fasciitis M72.2 and Pain in right knee M25.561 [facility] [address] [id number] [address] [place] [phone] 13 Oct, 2016 [facility] [address] [id number] [address] [place] [id number] 14 Aug, 2014 [facility] [address] [id number] [address] [place] [phone] Aug, [facility] [address] [id number] [address] [place] [phone] Apr, [facility] [address] [id number] [address] [place] [phone] Apr, [facility] [address] [id number] [address] [place] [phone] Mar, [facility] [address] [id number] [address] [place] [phone] Mar, [facility] [address] [id number] [address] [place] [phone] Feb, [facility] [address] [id number] [address] [place] [phone] Feb, [facility] [address] [id number] [address] [place] [phone] Feb, [facility] [address] [id number] [address] [place] [phone] 09 Feb, 2013 [facility] [address] [id number] [address] [place] [address], [place] [address] 07 Feb, 2013 [facility] [address] [id number] [address] [place] [address], [place] [phone] 07 Feb, 2013 [facility] [address] [id number] [address] [place] [address], [place] [address] 07 Feb, 2013 [facility] [address] [id number] [address] [place] [phone] 07 Feb, 2013 [facility] [address] [id number] [address] [place] [address], [place] [address] 30 Sep, 2013 [facility] [address] [id number] [address] [place] [address], [place] [address] 30 Sep, 2013 [facility] [address] [id number] [address] [place] [address], [place] [address] 30 Sep, 2013 [facility] [address] [id number] [address] [place] [address], [place] [address] 30 Sep, 2013 [facility] [address] [id number] [address] [place] [address], [place] [address] 30 Sep, 2013 [facility] [address] [id number] [address] [place] [address], [place] [address] 30 Sep, 2013 [facility] [address] [id number] [address] [place] [address], [place] [address] 26 Sep, 2013 [facility] [address] [id number] [address] [place] [address], [place] [id number] 26 Sep, 2013 [facility] [address] [id number] [address] [place] [address], [place] [address] 22 Sep, 2013 [facility] [address] [id number] [address] [place] [address], [place] [address] 22 Sep, 2013 [facility] [address] [id number] [address] [place] [address], [place] [address] 16 Sep, 2013 [facility] [address] [id number] [facility] [place] [address] 16 Sep, 2013 [facility] [address] [id number] [address] [place] [address], [place] [address] 16 Sep, 2013 [facility] [address] [id number] [facility] [address] 16 Jan, 2013 [facility] [address] [id number] [address] [place] [address], [place] [id number] 12 Jan, 2013 [facility] [address] [id number] [address] [place] [address], [place] [address] 12 Jan, 2013 [facility] [address] [id number] [address] [place] [address], [place] [address] 12 Jan, 2013 [facility] [address] [id number] [address] [place] [address], [place] [address] 12 Jan, 2013 [facility] [address] [id number] [address] [place] [address], [place] [id number] 09 Jan, 2013 [facility] [address] [id number] [address] [place] [address], [place] [address] 09 Jan, 2013 [facility] [address] [id number] [address] [place] [address], [place] [address] Jan, 2013 [facility] [address] [id number] [address] [place] [address], [place] [address] 09 Jan, 2013 [facility] [address] [id number] [address] [place] [address], [place] [address] Jan, 2013 [facility] [address] [id number] [address] [place] [address], [place] [address] Jan, 2013 [facility] [address] [id number] [address] [place] [address], [place] [address] Dec, [facility] [address] [id number] [address] [place] [address], [place] [address] Dec, [facility] [address] [id number] [address] [place] [address], [place] [address] Dec, [facility] [address] [id number] [facility] [address] Dec, [facility] [address] [id number] [address] [place] [address], [place] [address] Dec, [facility] [address] [id number] [facility] [address] Dec, [facility] [address] [id number] [address] [place] [address], [place] [address] Dec, [facility] [address] [id number] [address] [place] [address], [place] [address] Dec, [facility] [address] [id number] [address] [place] [address], [place] [address] Dec, [facility] [address] [id number] [address] [place] [address], [place] [address] Dec, [facility] [address] [id number] [address] [place] [address], [place] [address] Dec, [facility] [address] [id number] [address] [place] [address], [place] [address] Dec, [facility] [address] [id number] [address] [place] [address], [place] [address] Dec, [facility] [address] [id number] [address] [place] [address], [place] [address] Dec, [facility] [address] [id number] [address] [place] [address], [place] [address] Dec, [facility] [address] [id number] [address] [place] [address], [place] [address] Dec, [facility] [address] [id number] [address] [place] [address], [place] [address] Dec, [facility] [address] [id number] [address] [place] [address], [place] [address] Dec, [facility] [address] [id number] [address] [place] [phone] Dec, [facility] [address] [id number] [address] [place] [address], [place] [address] Nov, [facility] [address] [id number] [address] [place] [address], [place] [address] Nov, [facility] [address] [id number] [address] [place] [address], [place] [address] Nov, [facility] [address] [id number] [address] [place] [address], [place] [address] Nov, [facility] [address] [id number] [address] [place] [address], [place] [address] Nov, [facility] [address] [id number] [address] [place] [address], [place] [address] Nov, [facility] [address] [id number] [address] [place] [address], [place] [address] Nov, [facility] [address] [id number] [address] [place] [address], [place] [address] Nov, [facility] [address] [id number] [address] [place] [id number] Nov, [facility] [address] [id number] [address] [place] [address], [place] [address] Nov, [facility] [address] [id number] [address] [place] [phone] Nov, [facility] [address] [id number] [address] [place] [phone] Oct, [facility] [address] [id number] [address] [place] [id number] Oct, [facility] [address] [id number] [address] [place] [id number] Oct, [facility] [address] [id number] [address] [place] [phone] Apr, IMMUNIZATIONS No Known Immunizations SOCIAL HISTORY Never Assessed REASON FOR VISIT Controlled Med Refill PLAN OF CARE VITAL SIGNS MEDICATIONS Medication Instructions Dosage Frequency Start Date End Date Duration S tatus Flonase 50 MCG/ACT Nasally Once a day 1 spray in each nostril 24h 30 Active Lipitor 80 mg 1 tablet by Oral route 1 time per day Active Duloxetine HCl 30 MG TAKE ONE CAPSULE BY MOUTH TWO ALMA ES DAILY FOR 30 DAYS 30 Not-Taking Lansoprazole 30 MG TAKE 1 CAPSULE BY MOUTH DAILY 30 Active Oxycodone-Acetaminophen 5-325 MG Orally every 4 hrs 1-2 tablet as n eeded 4h Mar, Active Metoprolol Tartrate 100 mg Orally Twice a day 1 tablet with food 12h 30 Active Morphine Sulfate ER 15 mg/8 hr Orally Once a day in am 1 tablet Aug, 14 days Not-Taking Norvasc 10 mg 1 tablet Once a day Orally Active Cyclobenzaprine HCl 10 mg Orally Three times a day TAKE 1 TA BLET BY MOUTH THREE TIMES DAILY 8h 30 Active Voltaren 1 % apply 1g to affected area 2 times a day Transdermal 30 Active Cymbalta 30 MG Orally Twice a day 1 capsule 12h Not-Taking Amlodipine Besylate 10 MG TAKE 1 TABLET BY MOUTH DAILY 30 Not-Taking ProAir HFA 108 (90 Base) MCG/ACT INHALE 2 PUFFS INTO LUNGS EVERY FOUR HOURS NEEDED FOR SHORTNESS OF BREATH 30 Active Tiotropium [place]-Olodaterol 2.5-2.5 MCG/ACT Inhalation Once a day 2 puffs 24h Active Atorvastatin Calcium 80 MG TAKE 1 TABLET BY MOUTH DAILY 30 Active Cetirizine HCl 10 mg by oral route Once a day 1 tablet 24h Apr, 30 days Active Gabapentin 300 MG TAKE 2 CAPSULES BY MOUTH THREE TIMES DAILY 30 Active Aspirin 81 mg 1 tablet by Oral route 1 time per day 2013 Not-Taking Prevacid 30 mg Orally Once a day 1 capsule 24h Dec, 30 days Not-Taking Aspir-81 Active Hydrocodone-Acetaminophen 10-325 MG Orally 2 times a day 1 tablet a s needed 12h Mar, 28 days Active RESULTS [...]
--- OUTSIDE RECORDS SUMMARY | 2019-11-23 06:26 | XMS REPORT ---
Author Author Pal Lopez Organization [facility] Address [address] [place] [address] Care Team Providers Care Gold Leaf Gilder Name Role Phone JANE Lopez Unavailable PROBLEMS Type Condition ICD9-CM Code DQQ43-MS Code Onset Dates Condition S tatus SNOMED Code Problem Bilateral primary osteoarthritis of knee M17.0 Active 623443733 Problem Chronic pain syndrome G89.4 Active 677407841 Problem Lung nodule < 6cm on CT R91.1 Active 539069351 Problem Panlobular emphysema J43.1 Active 8236183 Problem Anxiety disorder, unspecified F41.9 Active 391670662 Problem Other chronic pain G89.29 Active 8 6200493 Problem Lumbago with sciatica, left side M54.42 Active 219811715 Problem Lumbago with sciatica, right side M54.41 Active [id number] ALLERGIES No Information ENCOUNTERS Encounter Location Date Diagnosis [place] [address] [facility] [id number] [address] [place] [id number] Oct, [place] [address] [facility] [id number] [address] [place] [id number] 15 Aug, 2019 Chronic pain syndrome G89.4 [place] [address] [facility] [id number] [address] [place] [address] 03 Aug, 2019 Lung nodule < 6cm on CT R91. 1 and Panlobular emphysema J43.1 [place] [address] [facility] [id number] [address] [place] [id number] 16 Jul, 2019 Chronic pain syndrome G89.4 [place] [address] [facility] [id number] [address] [place] [id number] 05 Jul, 2019 Bilateral primary osteoarthr itis of knee M17.0 ; Lumbago with sciatica, left side M54.42 and Encounter for immunization Z23 [facility] [address] [id number] [address] [place] [phone] Jun, Chronic pain syndrome G89.4 [facility] [address] [facility] [id number] [address] [place] [id number] May, Lung nodule < 6cm on CT R91. 1 ; SOB (shortness of breath) R06.02 ; Coughing R05 and Panlobular emphysema J43.1 [facility] [address] [id number] [address] [place] [address] May, [facility] [address] [id number] [address] [place] [address] May, Chronic pain syndrome G89.4 [facility] [address] [facility] [id number] [address] [place] [address] May, [facility] [address] [facility] [id number] [address] [place] [address] Apr, Chronic pain syndrome G89.4 [facility] [address] [facility] [id number] [address] [place] [address] Apr, Encounter for immunization Z 23 ; Lumbago with sciatica, left side M54.42 and Tinea corporis B35.4 [facility] [address] [facility] [id number] [address] [place] [id number] Mar, [facility] [address] [facility] [id number] [address] [place] [address] Mar, [facility] [address] [facility] [id number] [address] [place] [id number] Mar, Chronic pain syndrome G89.4 [facility] [address] [facility] [id number] [address] [place] [phone] Mar, [facility] [address] [facility] [id number] [address] [place] [address] Mar, [place] [address] [id number] [address] [place] [address] Mar, [facility] [address] [facility] [id number] [address] [place] [address] Feb, Chronic pain syndrome G89.4 [facility] [address] [facility] [id number] [address] [place] [address] Feb, [facility] [address] [facility] [id number] [address] [place] [address] Jan, Chronic pain syndrome G89.4 [facility] [address] [id number] [address] [place] [address] Dec, Chronic pain syndrome G89.4 [facility] [address] [facility] [id number] [address] [place] [address] Dec, Chronic pain syndrome G89.4 and Anxiety disorder, unspecified F41.9 [facility] [address] [facility] [id number] [address] [place] [address] Nov, [facility] [address] [facility] [id number] [address] [place] [address] Oct, [facility] [address] [facility] [id number] [address] [place] [address] Oct, [facility] [address] [facility] [id number] [address] [place] [address] Oct, Acute bronchitis, unspecifie d organism J20.9 and Nasal congestion R09.81 [facility] [address] [facility] [id number] [address] [place] [address] September, [facility] [address] [facility] [id number] [address] [place] [address] Aug, Lumbago with sciatica, left side M54.42 ; Lumbago with sciatica, right side M54.41 and Other chronic pain G89.29 [facility] [address] [facility] [id number] [address] [place] [address] Aug, [facility] [address] [id number] [address] [place] [address] Jul, [facility] [address] [id number] [address] [place] [address] Jun, [facility] [address] [id number] [address] [place] [address] May, [facility] [address] [id number] [address] [place] [address] Apr, Pain in right knee M25.561 [facility] [address] [id number] [address] [place] [address] Apr, Pain in right knee M25.561 [facility] [address] [id number] [address] [place] [address] Mar, Pain in right knee M25.561 [facility] [address] [id number] [address] [place] [address] Mar, [facility] [address] [id number] [address] [place] [address] Mar, Chronic pain syndrome G89.4 [facility] [address] [id number] [address] [place] [phone] Feb, [facility] [address] [id number] [address] [place] [phone] Feb, [facility] [address] [id number] [address] [place] [address] Dec, [facility] [address] [id number] [address] [place] [address] Dec, [facility] [address] [id number] [address] [place] [address] Nov, Chronic pain syndrome G89.4 [facility] [address] [id number] [address] [place] [address] Nov, [facility] [address] [id number] [address] [place] [address] Oct, [facility] [address] [id number] [address] [place] [address] Oct, [facility] [address] [id number] [address] [place] [address] Oct, [facility] [address] [id number] [address] [place] [address] Oct, Allergic reaction to drug, s ubsequent encounter T78.40XD [facility] [address] [id number] [address] [place] [address] September, [facility] [address] [id number] [address] [place] [phone] September, [facility] [address] [facility] [id number] [address] [place] [address] September, Low back pain radiating to l ower extremity M54.5 [facility] [address] [id number] [address] [place] [address] Aug, [facility] [address] [id number] [address] [place] [address] Aug, [facility] [address] [facility] [id number] [address] [place] [address] Aug, [facility] [address] [id number] [address] [place] [address] Aug, [facility] [address] [id number] [address] [place] [address] Aug, Incisional infection, initia l encounter T81.4XXA [facility] [address] [id number] [address] [place] [address] Aug, [facility] [address] [facility] [id number] [address] [place] [address] Jul, [facility] [address] [id number] [address] [place] [address] Jul, [facility] [address] [facility] [id number] [address] [place] [address] Jul, Chronic pain syndrome G89.4 [facility] [address] [facility] [id number] [address] [place] [address] Jul, Pre-op evaluation Z01.818 [facility] [address] [facility] [id number] [address] [place] [address] Jul, [facility] [address] [facility] [id number] [address] [place] [address] Jun, Anxiety disorder, unspecifie d F41.9 and Chronic pain syndrome G89.4 [facility] [address] [place] [id number] [address] [place] [phone] Jun, [facility] [address] [place] [id number] [address] [place] [address] Jun, [facility] [address] [facility] [id number] [address] [place] [address] Jun, [facility] [address] [place] [id number] [address] [place] [address] Jun, [facility] [address] [place] [id number] [address] [place] [address] Jun, Lumbar neuritis M54.16 [facility] [address] [facility] [id number] [address] [place] [id number] May, [facility] [address] [facility] [id number] [address] [place] [address] May, [facility] [address] [place] [id number] [address] [place] [address] May, Encounter for therapeutic dr heather level monitoring Z51.81 ; Encounter for immunization Z23 and Chronic pain syndrome G89.4 [facility] [address] [place] [id number] [address] [place] [address] May, Lumbar neuritis M54.16 [facility] [address] [id number] [address] [place] [address] May, [facility] [address] [id number] [address] [place] [address] Apr, Lumbar neuritis M54.16 [facility] [address] [id number] [address] [place] [address] Apr, [facility] [address] [id number] [address] [place] [address] Mar, Lumbar neuritis M54.16 [facility] [address] [id number] [address] [place] [address] Mar, [facility] [address] [id number] [address] [place] [address] Mar, [facility] [address] [id number] [address] [place] [address] Feb, Lumbar neuritis M54.16 [facility] [address] [id number] [address] [place] [address] 18 Feb, 2017 Lumbar neuritis M54.16 [facility] [address] [id number] [address] [place] [id number] 16 Feb, 2017 [facility] [address] [id number] [address] [place] [phone] Feb, [facility] [address] [id number] [address] [place] [id number] 25 Jan, 2017 [facility] [address] [id number] [address] [place] [address] 22 Sep, 2016 Peroneal tendonitis of left lower extremity M76.72 [facility] [address] [id number] [address] [place] [address] 20 Jan, 2016 Lumbar neuritis M54.16 [facility] [address] [id number] [address] [place] [phone] Jan, [facility] [address] [id number] [address] [place] [address] Dec, Lumbar neuritis M54.16 [facility] [address] [id number] [address] [place] [address] Dec, [facility] [address] [id number] [address] [place] [address] Dec, Pain in right knee M25.561 ; Lumbar neuritis M54.16 and Cervical neuritis M54.12 [facility] [address] [id number] [address] [place] [address] Dec, [facility] [address] [id number] [address] [place] [id number] Dec, [facility] [address] [id number] [address] [place] [address] Nov, Lumbar neuritis M54.16 [facility] [address] [id number] [address] [place] [phone] Nov, Bilateral primary osteoarthr itis of knee M17.0 [facility] [address] [id number] [address] [place] [address] Nov, [facility] [address] [id number] [address] [place] [address] Nov, Bronchitis J40 and Plantar f asciitis M72.2 [facility] [address] [id number] [address] [place] [address] Nov, [facility] [address] [id number] [address] [place] [address] Oct, Lumbar neuritis M54.16 [facility] [address] [id number] [address] [place] [address] Oct, Lumbar neuritis M54.16 [facility] [address] [id number] [address] [place] [address] Oct, Lumbar neuritis M54.16 [facility] [address] [id number] [address] [place] [address] 26 Oct, 2016 Plantar fasciitis M72.2 and Pain in right knee M25.561 [facility] [address] [id number] [address] [place] [address] 16 Oct, 2016 Lumbar neuritis M54.16 ; Cer vical neuritis M54.12 ; Other specified abdominal hernia without obstruction or gangrene K45.8 ; Heel spur, left M77.32 ; Plantar fasciitis M72.2 and Pain in right knee M25.561 [facility] [address] [id number] [address] [place] [address] 13 Oct, 2016 [facility] [address] [id number] [address] [place] [id number] 14 Aug, 2014 [facility] [address] [id number] [address] [place] [address] Aug, [facility] [address] [id number] [address] [place] [phone] Apr, [facility] [address] [id number] [address] [place] [address] Apr, [facility] [address] [id number] [address] [place] [phone] Mar, [facility] [address] [id number] [address] [place] [phone] Mar, [facility] [address] [id number] [address] [place] [id number] Feb, [facility] [address] [id number] [address] [place] [phone] Feb, [facility] [address] [id number] [address] [place] [phone] Feb, [facility] [address] [id number] [address] [place] [address] Feb, [facility] [address] [id number] [address] [place] [address], [place] [address] 07 Feb, 2013 [facility] [address] [id number] [address] [place] [address], [place] [id number] 07 Feb, 2013 [facility] [address] [id number] [address] [place] [address], [place] [address] 07 Feb, 2013 [facility] [address] [id number] [address] [place] [address], [place] [id number] 07 Feb, 2013 [facility] [address] [id number] [address] [place] [address], [place] [address] 30 Sep, 2013 [facility] [address] [id number] [address] [place] [address], [place] [address] 30 Sep, 2013 [facility] [address] [id number] [address] [place] [address], [place] [id number] 30 Sep, 2013 [facility] [address] [id number] [address] [place] [address], [place] [address] 30 Sep, 2013 [facility] [address] [id number] [address] [place] [address], [place] [address] 30 Sep, 2013 [facility] [address] [id number] [address] [place] [address], [place] [address] 30 Sep, 2013 [facility] [address] [id number] [address] [place] [address], [place] [address] 26 Sep, 2013 [facility] [address] [id number] [address] [place] [address], [place] [address] 26 Sep, 2013 [facility] [address] [id number] [address] [place] [address], [place] [address] 22 Sep, 2013 [facility] [address] [id number] [address] [place] [address], [place] [address] 22 Sep, 2013 [facility] [address] [id number] [address] [place] [address], [place] [address] 16 Sep, 2013 [facility] [address] [id number] [address] [place] [address], [place] [address] 16 Sep, 2013 [facility] [address] [id number] [facility] [place] [address] 16 Sep, 2013 [facility] [address] [id number] [address] [place] [address], [place] [address] 16 Jan, 2013 [facility] [address] [id number] [address] [place] [address], [place] [address] 12 Jan, 2013 [facility] [address] [id number] [address] [place] [address], [place] [address] 12 Jan, 2013 [facility] [address] [id number] [address] [place] [address], [place] [address] 12 Jan, 2013 [facility] [address] [id number] [address] [place] [address], [place] [address] 12 Jan, 2013 [facility] [address] [id number] [address] [place] [address], [place] [id number] 09 Jan, 2013 [facility] [address] [id number] [address] [place] [address], [place] [id number] 09 Jan, 2013 [facility] [address] [id number] [address] [place] [address], [place] [address] 09 Jan, 2013 [facility] [address] [id number] [address] [place] [address], [place] [address] 09 Jan, 2013 [facility] [address] [id number] [address] [place] [address], [place] [id number] 05 Jan, 2013 [facility] [address] [id number] [address] [place] [address], [place] [address] Jan, 2013 [facility] [address] [id number] [address] [place] [address], [place] [address] Dec, [facility] [address] [id number] [address] [place] [address], [place] [address] Dec, [facility] [address] [id number] [address] [place] [address], [place] [address] Dec, [facility] [address] [id number] [facility] [place] [address] Dec, [facility] [address] [id number] [facility] [place] [address] Dec, [facility] [address] [id number] [facility] [place] [address] Dec, [facility] [address] [id number] [facility] [place] [id number] Dec, [facility] [address] [id number] [facility] [place] [address] Dec, [facility] [address] [id number] [facility] [place] [address] Dec, [facility] [address] [id number] [facility] [place] [address] Dec, [facility] [address] [id number] [address] [place] [address], [place] [id number] Dec, [facility] [address] [id number] [address] [place] [address], [place] [id number] Dec, [facility] [address] [id number] [address] [place] [address], [place] [id number] Dec, [facility] [address] [id number] [address] [place] [address], [place] [id number] Dec, [facility] [address] [id number] [address] [place] [address], [place] [id number] Dec, [facility] [address] [id number] [address] [place] [address], [place] [id number] Dec, [facility] [address] [id number] [address] [place] [address], [place] [id number] Dec, [facility] [address] [id number] [address] [place] [address], [place] [id number] Dec, [facility] [address] [id number] [address] [place] [address], [place] [id number] Dec, [facility] [address] [id number] [address] [place] [address], [place] [id number] Nov, [facility] [address] [id number] [address] [place] [address], [place] [id number] Nov, [facility] [address] [id number] [address] [place] [address], [place] [id number] Nov, [facility] [address] [id number] [address] [place] [address], [place] [id number] Nov, [facility] [address] [id number] [address] [place] [address], [place] [id number] Nov, [facility] [address] [id number] [address] [place] [address], [place] [id number] Nov, [facility] [address] [id number] [address] [place] [address], [place] [id number] Nov, [facility] [address] [id number] [address] [place] [id number] Nov, [facility] [address] [id number] [address] [place] [id number] Nov, [facility] [address] [id number] [address] [place] [id number] Nov, [facility] [address] [id number] [address] [place] [id number] Nov, [facility] [address] [id number] [address] [place] [id number] Oct, [facility] [address] [id number] [address] [place] [id number] Oct, [facility] [address] [id number] [address] [place] [id number] Oct, [facility] [address] [address] [id number] [address] [place] [phone] Apr, IMMUNIZATIONS No Known Immunizations SOCIAL HISTORY [...]
--- OUTSIDE RECORDS SUMMARY | 2019-11-23 06:26 | XMS REPORT ---
Author Author Pal Lopez Organization [facility] Address [address] [place] [address] Care Team Providers Care Biological Technical Officer Name Role Phone JANE Lopez Unavailable PROBLEMS Type Condition ICD9-CM Code HOH50-WT Code Onset Dates Condition S tatus SNOMED Code Problem Bilateral primary osteoarthritis of knee M17.0 Active 056702370 Problem Chronic pain syndrome G89.4 Active 535737355 Problem Lung nodule < 6cm on CT R91.1 Active 511909260 Problem Panlobular emphysema J43.1 Active 1666927 Problem Anxiety disorder, unspecified F41.9 Active 946820167 Problem Other chronic pain G89.29 Active 8 9293166 Problem Lumbago with sciatica, left side M54.42 Active 322630459 Problem Lumbago with sciatica, right side M54.41 Active [id number] ALLERGIES No Information ENCOUNTERS Encounter Location Date Diagnosis [place] [address] [address] [facility] [id number] [address] [place] [phone] Oct, [place] [address] [address] [facility] [id number] [address] [place] [phone] 15 Aug, 2019 Chronic pain syndrome G89.4 [place] [address] [address] [facility] [id number] [address] [place] [phone] 03 Aug, 2019 Lung nodule < 6cm on CT R91. 1 and Panlobular emphysema J43.1 [place] [address] [address] [facility] [id number] [address] [place] [phone] 16 Jul, 2019 Chronic pain syndrome G89.4 [place] [address] [address] [facility] [id number] [address] [place] [phone] 05 Jul, 2019 Bilateral primary osteoarthr itis of knee M17.0 ; Lumbago with sciatica, left side M54.42 and Encounter for immunization Z23 [facility] [address] [id number] [address] [place] [phone] Jun, Chronic pain syndrome G89.4 [facility] [address] [facility] [id number] [address] [place] [phone] May, Lung nodule < 6cm on CT R91. 1 ; SOB (shortness of breath) R06.02 ; Coughing R05 and Panlobular emphysema J43.1 [facility] [address] [id number] [address] [place] [phone] May, [facility] [address] [id number] [address] [place] [phone] May, Chronic pain syndrome G89.4 [facility] [address] [facility] [id number] [address] [place] [phone] May, [facility] [address] [facility] [id number] [address] [place] [phone] Apr, Chronic pain syndrome G89.4 [facility] [address] [facility] [id number] [address] [place] [phone] Apr, Encounter for immunization Z 23 ; Lumbago with sciatica, left side M54.42 and Tinea corporis B35.4 [facility] [address] [facility] [id number] [address] [place] [phone] Mar, [facility] [address] [facility] [id number] [address] [place] [phone] Mar, [facility] [address] [facility] [id number] [address] [place] [phone] Mar, Chronic pain syndrome G89.4 [facility] [address] [facility] [id number] [address] [place] [phone] Mar, [facility] [address] [facility] [id number] [address] [place] [phone] Mar, [place] [address] [id number] [address] [place] [phone] Mar, [facility] [address] [facility] [id number] [address] [place] [id number] Feb, Chronic pain syndrome G89.4 [facility] [address] [facility] [id number] [address] [place] [phone] Feb, [facility] [address] [facility] [id number] [address] [place] [phone] Jan, Chronic pain syndrome G89.4 [facility] [address] [id number] [address] [place] [id number] Dec, Chronic pain syndrome G89.4 [facility] [address] [facility] [id number] [address] [place] [phone] Dec, Chronic pain syndrome G89.4 and Anxiety disorder, unspecified F41.9 [facility] [address] [facility] [id number] [address] [place] [phone] Nov, [facility] [address] [facility] [id number] [address] [place] [phone] Oct, [facility] [address] [facility] [id number] [address] [place] [phone] Oct, [facility] [address] [facility] [id number] [address] [place] [id number] Oct, Acute bronchitis, unspecifie d organism J20.9 and Nasal congestion R09.81 [facility] [address] [facility] [id number] [address] [place] [phone] September, [facility] [address] [facility] [id number] [address] [place] [id number] Aug, Lumbago with sciatica, left side M54.42 ; Lumbago with sciatica, right side M54.41 and Other chronic pain G89.29 [facility] [address] [facility] [id number] [address] [place] [phone] Aug, [facility] [address] [id number] [address] [place] [phone] Jul, [facility] [address] [id number] [address] [place] [phone] Jun, [facility] [address] [id number] [address] [place] [phone] May, [facility] [address] [id number] [address] [place] [phone] Apr, Pain in right knee M25.561 [facility] [address] [id number] [address] [place] [id number] Apr, Pain in right knee M25.561 [facility] [address] [id number] [address] [place] [phone] Mar, Pain in right knee M25.561 [facility] [address] [id number] [address] [place] [id number] Mar, [facility] [address] [id number] [address] [place] [id number] Mar, Chronic pain syndrome G89.4 [facility] [address] [id number] [address] [place] [phone] Feb, [facility] [address] [id number] [address] [place] [phone] Feb, [facility] [address] [id number] [address] [place] [phone] Dec, [facility] [address] [id number] [address] [place] [phone] Dec, [facility] [address] [id number] [address] [place] [id number] Nov, Chronic pain syndrome G89.4 [facility] [address] [id number] [address] [place] [phone] Nov, [facility] [address] [id number] [address] [place] [phone] Oct, [facility] [address] [id number] [address] [place] [phone] Oct, [facility] [address] [id number] [address] [place] [phone] Oct, [facility] [address] [id number] [address] [place] [phone] Oct, Allergic reaction to drug, s ubsequent encounter T78.40XD [facility] [address] [id number] [address] [place] [phone] September, [facility] [address] [id number] [address] [place] [phone] September, [facility] [address] [facility] [id number] [address] [place] [phone] September, Low back pain radiating to l ower extremity M54.5 [facility] [address] [id number] [address] [place] [phone] Aug, [facility] [address] [id number] [address] [place] [phone] Aug, [facility] [address] [facility] [id number] [address] [place] [phone] Aug, [facility] [address] [id number] [address] [place] [phone] Aug, [facility] [address] [id number] [address] [place] [phone] Aug, Incisional infection, initia l encounter T81.4XXA [facility] [address] [id number] [address] [place] [phone] Aug, [facility] [address] [facility] [id number] [address] [place] [phone] Jul, [facility] [address] [id number] [address] [place] [phone] Jul, [facility] [address] [facility] [id number] [address] [place] [id number] Jul, Chronic pain syndrome G89.4 [facility] [address] [facility] [id number] [address] [place] [phone] Jul, Pre-op evaluation Z01.818 [facility] [address] [facility] [id number] [address] [place] [phone] Jul, [facility] [address] [facility] [id number] [address] [place] [phone] Jun, Anxiety disorder, unspecifie d F41.9 and Chronic pain syndrome G89.4 [facility] [address] [place] [id number] [address] [place] [phone] Jun, [facility] [address] [place] [id number] [address] [place] [phone] Jun, [facility] [address] [facility] [id number] [address] [place] [phone] Jun, [facility] [address] [place] [id number] [address] [place] [phone] Jun, [facility] [address] [place] [id number] [address] [place] [phone] Jun, Lumbar neuritis M54.16 [facility] [address] [facility] [id number] [address] [place] [phone] May, [facility] [address] [facility] [id number] [address] [place] [phone] May, [facility] [address] [place] [id number] [address] [place] [phone] May, Encounter for therapeutic dr heather level monitoring Z51.81 ; Encounter for immunization Z23 and Chronic pain syndrome G89.4 [facility] [address] [place] [id number] [address] [place] [phone] May, Lumbar neuritis M54.16 [facility] [address] [id number] [address] [place] [phone] May, [facility] [address] [id number] [address] [place] [phone] Apr, Lumbar neuritis M54.16 [facility] [address] [id number] [address] [place] [phone] Apr, [facility] [address] [id number] [address] [place] [phone] Mar, Lumbar neuritis M54.16 [facility] [address] [id number] [address] [place] [phone] Mar, [facility] [address] [id number] [address] [place] [phone] Mar, [facility] [address] [id number] [address] [place] [phone] Feb, Lumbar neuritis M54.16 [facility] [address] [id number] [address] [place] [phone] 18 Feb, 2017 Lumbar neuritis M54.16 [facility] [address] [id number] [address] [place] [phone] 16 Feb, 2017 [facility] [address] [id number] [address] [place] [phone] Feb, [facility] [address] [id number] [address] [place] [phone] 25 Jan, 2017 [facility] [address] [id number] [address] [place] [phone] 22 Sep, 2016 Peroneal tendonitis of left lower extremity M76.72 [facility] [address] [id number] [address] [place] [phone] 20 Jan, 2016 Lumbar neuritis M54.16 [facility] [address] [id number] [address] [place] [phone] Jan, [facility] [address] [id number] [address] [place] [phone] Dec, Lumbar neuritis M54.16 [facility] [address] [id number] [address] [place] [phone] Dec, [facility] [address] [id number] [address] [place] [phone] Dec, Pain in right knee M25.561 ; Lumbar neuritis M54.16 and Cervical neuritis M54.12 [facility] [address] [id number] [address] [place] [phone] Dec, [facility] [address] [id number] [address] [place] [phone] Dec, [facility] [address] [id number] [address] [place] [id number] Nov, Lumbar neuritis M54.16 [facility] [address] [id number] [address] [place] [phone] Nov, Bilateral primary osteoarthr itis of knee M17.0 [facility] [address] [id number] [address] [place] [id number] Nov, [facility] [address] [id number] [address] [place] [phone] Nov, Bronchitis J40 and Plantar f asciitis M72.2 [facility] [address] [id number] [address] [place] [phone] Nov, [facility] [address] [id number] [address] [place] [phone] Oct, Lumbar neuritis M54.16 [facility] [address] [id number] [address] [place] [phone] Oct, Lumbar neuritis M54.16 [facility] [address] [id number] [address] [place] [phone] Oct, Lumbar neuritis M54.16 [facility] [address] [id number] [address] [place] [phone] 26 Oct, 2016 Plantar fasciitis M72.2 and Pain in right knee M25.561 [facility] [address] [id number] [address] [place] [phone] 16 Oct, 2016 Lumbar neuritis M54.16 ; Cer vical neuritis M54.12 ; Other specified abdominal hernia without obstruction or gangrene K45.8 ; Heel spur, left M77.32 ; Plantar fasciitis M72.2 and Pain in right knee M25.561 [facility] [address] [id number] [address] [place] [phone] 13 Oct, 2016 [facility] [address] [id number] [address] [place] [phone] 14 Aug, 2014 [facility] [address] [id number] [address] [place] [phone] Aug, [facility] [address] [id number] [address] [place] [phone] Apr, [facility] [address] [id number] [address] [place] [phone] Apr, [facility] [address] [id number] [address] [place] [phone] Mar, [facility] [address] [id number] [address] [place] [phone] Mar, [facility] [address] [id number] [address] [place] [phone] Feb, [facility] [address] [id number] [address] [place] [phone] Feb, [facility] [address] [id number] [address] [place] [phone] Feb, [facility] [address] [id number] [address] [place] [phone] Feb, [facility] [address] [id number] [address] [place] [address], [place] [phone] 07 Feb, 2013 [facility] [address] [id number] [address] [place] [address], [place] [address] 07 Feb, 2013 [facility] [address] [id number] [address] [place] [address], [place] [address] 07 Feb, 2013 [facility] [address] [id number] [address] [place] [address], [place] [address] 07 Feb, 2013 [facility] [address] [id number] [address] [place] [address], [place] [address] 30 Sep, 2013 [facility] [address] [id number] [address] [place] [address], [place] [id number] 30 Sep, 2013 [facility] [address] [id number] [address] [place] [address], [place] [address] 30 Sep, 2013 [facility] [address] [id number] [address] [place] [address], [place] [address] 30 Sep, 2013 [facility] [address] [id number] [address] [place] [address], [place] [address] 30 Sep, 2013 [facility] [address] [id number] [address] [place] [address], [place] [address] 30 Sep, 2013 [facility] [address] [id number] [address] [place] [address], [place] [address] 26 Sep, 2013 [facility] [address] [id number] [address] [place] [address], [place] [address] 26 Sep, 2013 [facility] [address] [id number] [address] [place] [address], [place] [address] 22 Sep, 2013 [facility] [address] [id number] [address] [place] [address], [place] [address] 22 Sep, 2013 [facility] [address] [id number] [address] [place] [address], [place] [address] 16 Sep, 2013 [facility] [address] [id number] [address] [place] [address], [place] [address] 16 Sep, 2013 [facility] [address] [id number] [facility] [place] [address] 16 Sep, 2013 [facility] [address] [id number] [address] [place] [address], [place] [address] 16 Jan, 2013 [facility] [address] [id number] [address] [place] [address], [place] [address] 12 Jan, 2013 [facility] [address] [id number] [address] [place] [address], [place] [address] 12 Jan, 2013 [facility] [address] [id number] [address] [place] [address], [place] [address] 12 Jan, 2013 [facility] [address] [id number] [address] [place] [address], [place] [address] 12 Jan, 2013 [facility] [address] [id number] [address] [place] [address], [place] [address] 09 Jan, 2013 [facility] [address] [id number] [address] [place] [address], [place] [address] 09 Jan, 2013 [facility] [address] [id number] [address] [place] [address], [place] [address] 09 Jan, 2013 [facility] [address] [id number] [address] [place] [address], [place] [address] 09 Jan, 2013 [facility] [address] [id number] [address] [place] [address], [place] [address] 05 Jan, 2013 [facility] [address] [id number] [address] [place] [address], [place] [address] Jan, 2013 [facility] [address] [id number] [address] [place] [address], [place] [address] Dec, [facility] [address] [id number] [address] [place] [address], [place] [address] Dec, [facility] [address] [id number] [address] [place] [address], [place] [address] Dec, [facility] [address] [id number] [facility] [place] [address] Dec, [facility] [address] [id number] [facility] [place] [address] Dec, [facility] [address] [id number] [facility] [place] [address] Dec, [facility] [address] [id number] [facility] [place] [address] Dec, [facility] [address] [id number] [facility] [place] [address] Dec, [facility] [address] [id number] [facility] [place] [address] Dec, [facility] [address] [id number] [facility] [place] [address] Dec, [facility] [address] [id number] [address] [place] [address], [place] [address] Dec, [facility] [address] [id number] [address] [place] [address], [place] [address] Dec, [facility] [address] [id number] [address] [place] [address], [place] [address] Dec, [facility] [address] [id number] [address] [place] [address], [place] [address] Dec, [facility] [address] [id number] [address] [place] [address], [place] [address] Dec, [facility] [address] [id number] [address] [place] [address], [place] [address] Dec, [facility] [address] [id number] [address] [place] [address], [place] [address] Dec, [facility] [address] [id number] [address] [place] [address], [place] [address] Dec, [facility] [address] [id number] [address] [place] [address], [place] [address] Dec, [facility] [address] [id number] [address] [place] [address], [place] [address] Nov, [facility] [address] [id number] [address] [place] [address], [place] [address] Nov, [facility] [address] [id number] [address] [place] [address], [place] [address] Nov, [facility] [address] [id number] [address] [place] [address], [place] [address] Nov, [facility] [address] [id number] [address] [place] [address], [place] [address] Nov, [facility] [address] [id number] [address] [place] [address], [place] [address] Nov, [facility] [address] [id number] [address] [place] [address], [place] [address] Nov, [facility] [address] [id number] [address] [place] [id number] Nov, [facility] [address] [id number] [address] [place] [id number] Nov, [facility] [address] [id number] [address] [place] [id number] Nov, [facility] [address] [id number] [address] [place] [id number] Nov, [facility] [address] [id number] [address] [place] [id number] Oct, [facility] [address] [id number] [address] [place] [id number] Oct, [facility] [address] [id number] [address] [place] [id number] Oct, [facility] [address] [id number] [address] [place] [id number] Apr, IMMUNIZATIONS No Known Immunizations SOCIAL HISTORY [...]
--- OUTSIDE RECORDS SUMMARY | 2019-11-23 06:27 | XMS REPORT | Continuity of Care Document ---
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 THERAPY 01/07/2017 NEREIDA LUJAN MD Ot G89. 4 CHRONIC PAIN SYNDROME 01/07/2017 NEREIDA LUJAN MD Ot M47.816 SPONDYLOSIS W/O MYELOPATHY OR RADICULOPA 01/07/2017 NEREIDA LUJAN MD, Ot M51. 16 INTERVERTEBRAL DISC DISORDERS W RADICULO 01/07/2017 NEREIDA LUJAN MD Ot M53. 3 SACROCOCCYGEAL DISORDERS, NOT ELSEWHERE 01/07/2017 NEREIDA LUJAN MD Ot M96. 1 POSTLAMINECTOMY SYNDROME, NOT ELSEWHERE 01/07/2017 NEREIDA LUJAN MD Ot Z79.899 OTHER NET SORTER (CURRENT) DRUG THERAPY 01/07/2017 VICKY WEATHERS MD Ot M12.511 TRAUMATIC ARTHROPATHY, RIGHT SHOULDER 01/07/2017 VICKY WEATHERS MD Ot M12.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, LEFT SHOULDER 01/07/2017 VICKY WEATHERS MD Ot M75.101 UNSP ROTATR-CUFF TEAR/RUPTR OF RIGHT ORALIA 01/07/2017 VICKY WEATHERS MD Ot M75.102 UNSP ROTATR-CUFF TEAR/RUPTR OF LEFT SHOU 01/15/2017 PREETHI YIN Ot M54.16 RADICULOPATHY, LUMBAR REGION 02/10/2017 PREETHI YIN Ot M54.16 RADICULOPATHY, LUMBAR REGION 03/13/2017 MARIO DPM, KEYUR Bond Ot M76. 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) use of aspirin 08/12/2017 FRANC MARRUFO Z79.899 Other intermission coordinator (current) drug therapy 08/12/2017 FRANC MARRUFO Z98.1 Arthrodesis status 08/13/2017 Franc Marrufo M48.061 SPINAL STENOSIS, LUMBAR REGION WITHOUT NEUROGENIC CLAUDICATION Franc Marrufo 08/13/2017 Franc Marrufo71.38 OTHER BURSAL CYST, OTHER SITE Bobby, Franc 08/13/2017 Franc Marrufo M48.061 SPINAL STENOSIS, LUMBAR REGION WITHOUT NEUROGENIC CLAUDICATION Margot Gentile 08/13/2017 Franc Marrufo M71.38 OTHER BURSAL CYST, OTHER SITE Margot Gentile 09/29/2017 Franc Marrufo M48.061 SPINAL STENOSIS, LUMBAR REGION WITHOUT NEUROGENIC CLAUDICATION Bobby, Franc 09/29/2017 MarrufoFranc jennings M71.38 OTHER BURSAL CYST, OTHER SITE Bobby, Franc 11/25/2017 Franc Marrufo M48.061 SPINAL STENOSIS, LUMBAR REGION WITHOUT NEUROGENIC CLAUDICATION Bobby, Franc 11/25/2017 MarrufoFranc jennings M71.38 OTHER BURSAL CYST, OTHER SITE Bobby, Franc 11/25/2017 Bobby Franc M48.061 SPINAL STENOSIS, LUMBAR REGION WITHOUT NEUROGENIC CLAUDICATION Margot Gentile 11/25/2017 Franc Marrufo M71.38 OTHER BURSAL CYST, OTHER SITE Margot Gentile 04/05/2018 NEREIDA LUJAN MD Ot G89. 4 CHRONIC PAIN SYNDROME 04/05/2018 NEREIDA LUJAN MD Ot M47.816 SPONDYLOSIS W/O MYELOPATHY OR RADICULOPA 04/05/2018 NEREIDA LUJAN MD Ot M51. 16 INTERVERTEBRAL DISC DISORDERS W RADICULO 04/05/2018 NEREIDA LUJAN MD Ot M53. 3 SACROCOCCYGEAL DISORDERS, NOT ELSEWHERE 04/05/2018 NEREIDA LUJAN MD Ot M96. 1 POSTLAMINECTOMY SYNDROME, NOT ELSEWHERE 04/05/2018 NEREIDA LUJAN MD Ot Z79.899 OTHER NET SORTER (CURRENT) DRUG THERAPY 04/05/2018 SARAHY LAMAR, VICKY Lanier Ot M12.511 TRAUMATIC ARTHROPATHY, RIGHT SHOULDER 04/05/2018 VICKY WEATHERS MD, Ot M12.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, LEFT SHOULDER 04/05/2018 SARAHY LAMAR, VICKY Lanier Ot M75.101 UNSP ROTATR-CUFF TEAR/RUPTR OF RIGHT ORALIA 04/05/2018 VICKY WEATHERS MD Ot M75.102 UNSP ROTATR-CUFF TEAR/RUPTR OF LEFT SHOU 04/05/2018 PREETHI YIN Ot M54.16 RADICULOPATHY, LUMBAR REGION 04/05/2018 MARIO DPM, KEYUR Q Ot M76. 72 PERONEAL TENDINITIS, LEFT LEG 04/05/2018 VICKY WEATHERS MD Ot M17.11 UNILATERAL PRIMARY OSTEOARTHRITIS, RIGHT 04/05/2018 VICKY WEATHERS MD Ot R53.83 OTHER FATIGUE 04/05/2018 VICKY WEATHERS MD Ot Z01.810 ENCOUNTER FOR PREPROCEDURAL CARDIOVASCUL 04/05/2018 VICKY WEATHERS MD Ot Z01.811 ENCOUNTER FOR PREPROCEDURAL RESPIRATORY 04/05/2018 VICKY WEATHERS MD Ot Z01.812 ENCOUNTER FOR PREPROCEDURAL LABORATORY E 04/05/2018 VICKY WEATHERS MD Ot Z11.2 ENCOUNTER FOR SCREENING FOR OTHER BACTER 04/06/2018 VICKY WEATHERS MD Ot M17.11 UNILATERAL PRIMARY OSTEOARTHRITIS, RIGHT 04/06/2018 VICKY WEATHERS MD Ot R53.83 OTHER FATIGUE 04/06/2018 VICKY WEATHERS MD Ot Z01.810 ENCOUNTER FOR PREPROCEDURAL CARDIOVASCUL 04/06/2018 VICKY WEATHERS MD Ot Z01.811 ENCOUNTER FOR PREPROCEDURAL RESPIRATORY 04/06/2018 VICKY WEATHERS MD Ot Z01.812 ENCOUNTER FOR PREPROCEDURAL LABORATORY E 04/06/2018 VICKY WEATHERS MD Ot Z11.2 ENCOUNTER FOR SCREENING FOR OTHER BACTER 04/16/2018 VICKY WEATHERS MD Ot E78.5 HYPERLIPIDEMIA, UNSPECIFIED 04/16/2018 VICKY WEATHERS MD Ot F17.210 NICOTINE DEPENDENCE, CIGARETTES, UNCOMPL 04/16/2018 VICKY WEATHERS MD Ot G89.29 OTHER CHRONIC PAIN 04/16/2018 VICKY WEATHERS MD Ot I1 0 ESSENTIAL (PRIMARY) HYPERTENSION 04/16/2018 VICKY WEATHERS MD Ot J44.9 CHRONIC OBSTRUCTIVE PULMONARY DISEASE, U 04/16/2018 VICKY WEATHERS MD Ot K21.9 GASTRO-ESOPHAGEAL REFLUX DISEASE WITHOUT 04/16/2018 VICKY WEATHERS MD Ot M17.11 UNILATERAL PRIMARY OSTEOARTHRITIS, RIGHT 04/16/2018 VICKY WEATHERS MD Ot M54.9 DORSALGIA, UNSPECIFIED 04/16/2018 VICKY WEATHERS MD Ot M79.7 FIBROMYALGIA 07/15/2019 NEREIDA LUJAN MD Ot G89. 4 CHRONIC PAIN SYNDROME 07/15/2019 NEREIDA LUJAN MD Ot M47.816 SPONDYLOSIS W/O MYELOPATHY OR RADICULOPA 07/15/2019 NEREIDA LUJAN MD, Ot M51. 16 INTERVERTEBRAL DISC DISORDERS W RADICULO 07/15/2019 NEREIDA LUJAN MD, Ot M53. 3 SACROCOCCYGEAL DISORDERS, NOT ELSEWHERE 07/15/2019 NEREIDA LUJAN MD, Ot M96. 1 POSTLAMINECTOMY SYNDROME, NOT ELSEWHERE 07/15/2019 NEREIDA LUJAN MD, Ot Z79.899 OTHER LONG-TERM (CURRENT) DRUG THERAPY 07/15/2019 VICKY WEATHERS MD, Ot M12.511 TRAUMATIC ARTHROPATHY, RIGHT SHOULDER 07/15/2019 VICKY WEATHERS MD, Ot M12.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, LEFT SHOULDER 07/15/2019 VICKY WEATHERS MD Ot M75.101 UNSP ROTATR-CUFF TEAR/RUPTR OF RIGHT ORALIA 07/15/2019 VICKY WEATHERS MD Ot M75.102 UNSP ROTATR-CUFF TEAR/RUPTR OF LEFT SHOU 07/15/2019 PREETHI YIN Ot M54.16 RADICULOPATHY, LUMBAR REGION 07/15/2019 KEYUR MARTIN DPM Ot M76. 72 PERONEAL TENDINITIS, LEFT LEG 07/19/2019 GIGI BALDERRAMA DO Ot R06. 02 SHORTNESS OF BREATH 07/21/2019 GIGI BALDERRAMA DO Ot R06. 02 SHORTNESS OF BREATH 11/21/2019 PINA PEREZ APRN Ot Z01.812 ENCOUNTER FOR PREPROCEDURAL LABORATORY E 11/21/2019 PINA PEREZ APRN Ot Z53.8 PROCEDURE AND TREATMENT NOT CARRIED OUT Procedures Code Description Performed By Per formed On ARTH RODESIS ANTERIOR INTERBODY FUSION AND DISCKECTOMY CERVICAL BELOW C2 Margot Gentile 06/14/2010 49822 ARTH RODESIS ANTERIOR INTERBOD CERVICAL BELOW C2, EACH ADDITIONAL INTERSPACE Margot Gentile 06/14/2010 60451 ANTE RIOR INSTRUMENTATION 2-3 SEGMENTS Margot Gentile 06/14/2010 79867 ANTE RIOR CERVICAL DISKECTOMY Margot Gentile S 06/14/2010 32957 ANTE RIOR CERVICAL DISCKECTOMY ADDITIONAL LEVEL Margot Gentile S 06/14/201073332 ALLO GRAFT FOR SPINE SURGERY [facility] 06/25/2010 87683 ARTH RODESIS ANTERIOR INTERBODY FUSION AND DISCKECTOMY CERVICAL BELOW C2 [facility] 06/25/2010 05309 ARTH RODESIS ANTERIOR INTERBOD CERVICAL BELOW C2, EACH ADDITIONAL INTERSPACE [facility] 06/25/2010 05211 ANTE RIOR INSTRUMENTATION 2-3 SEGMENTS [facility] 06/25/2010 73222 ANTE RIOR CERVICAL DISKECTOMY [facility] 06/25/2010 40442 ANTE RIOR CERVICAL DISCKECTOMY ADDITIONAL LEVEL [facility] 06/25/201019385 ALLO GRAFT FOR SPINE SURGERY [facility] 07/09/2010 60195 ARTH RODESIS ANTERIOR INTERBODY FUSION AND DISCKECTOMY CERVICAL BELOW C2 [facility] 07/09/2010 19696 ARTH RODESIS ANTERIOR INTERBOD CERVICAL BELOW C2, EACH ADDITIONAL INTERSPACE [facility] 07/09/2010 42472 ANTE RIOR INSTRUMENTATION 2-3 SEGMENTS [facility] 07/09/201048657 ALLO GRAFT FOR SPINE SURGERY [facility] 07/09/2010 02166 ANTE RIOR ARTHRODESIS INTERBODY BELOW C2 [facility] 07/09/2010 74182 ANTE RIOR ARTHODESIS EACH ADDITIONAL LEVEL [facility] 07/09/2010 58813 ANTE RIOR INSTRUMENTATION 2-3 SEGMENTS [facility] 07/09/2010 99972 ANTE RIOR CERVICAL DISKECTOMY [facility] 07/09/2010 74895 ANTE RIOR CERVICAL DISCKECTOMY ADDITIONAL LEVEL [facility] 07/09/2010 01273 POST OPERATIVE VISIT [facility] 07/10/201060191 ALLO GRAFT FOR SPINE SURGERY [facility] 07/19/2010 31978 ANTE RIOR INSTRUMENTATION 2-3 SEGMENTS [facility] 07/19/2010 12322 [facility] 89935 CONS ULT COMPLEX [facility] 09/24/2010 55483 ARTH RODESIS ANTERIOR INTERBODY FUSION AND DISCKECTOMY CERVICAL BELOW C2 [facility] 10/22/2010 88608 ARTH RODESIS ANTERIOR INTERBOD CERVICAL BELOW C2, EACH ADDITIONAL INTERSPACE [facility] 10/22/2010 55815 NEW PATIENT Franc Lea 05/14/2012 04006 OFFI CE VISIT Franc Lea 05/25/2012 09039 ALLO GRAFT MORSELIZED Franc Marrufo 07/13/2012 63999 ALLO GRAFT FOR SPINE SURGERY Franc Marrufo 07/13/2012 92929 AUTO GRAFT SPINE SURGERY Franc Marrufo 07/13/2012 13362 ARTH RODESIS, COMBINED POSTERIOR OR POSTEROLATERAL TECH WITH POST INTERBODY INCLUD LAMINECTOMY AND O Margot Gentile 07/13/2012 74283 EACH ADDITIONAL INTERSPACE & SEGMENT Margot Gentile 07/13/2012 90557 POST ERIOR SEGMENTAL INSTRUMENTATION 3-6 SEGMENTS Margot Gentile 07/13/2012 16020 POST OPERATIVE VISIT Franc Marrufo 07/30/2012 36026 OFFI CE VISIT Franc Barrett 03/10/2013 59161 OFFI CE VISIT Franc Lea 05/30/2013 MR MEDICAL RECORDS Franc Marrufo 06/18/2013 L0631 LSO, SAGITTAL CONTROL, RIGID ANTERIOR AND POSTERIOR PANELS Bobby Franc 07/20/2013 MR MEDICAL RECORDS Franc Marrufo 08/08/2013 20329 ALLO GRAFT MORSELIZED Franc Marrufo 08/23/2013 86010 AUTO GRAFT SPINE SURGERY Franc Marrufo 08/23/2013 02149 ALLO GRAFT FOR SPINE SURGERY Franc Marrufo 08/24/2013 82831 POST ERIOR ARTHRODESIS LUMBAR Margot Gentile 08/24/2013 61011 POST ERIOR ARTHRODESIS ADDITIONAL LEVEL Margot Gentile 08/24/2013 53082 REIN SERTION OF SPINAL FIXATION DEVICE Margot Gentile 08/24/2013 81717 POST OPERATIVE VISIT Franc Marrufo 08/24/2013 MR MEDICAL RECORDS Franc Marrufo 09/21/2013 NEUROLOGI FRANC MARRUFO 11/03/2013 ORTHOPEDI [place] 11/03/2013 89133 [facility] 11/08/2013 60655 XRAY THORACIC SPINE 3 VIEWS 12/01/2013 64720 XRAY LUMBAR SPINE 2 OR 3 VIEWS 12/01/2013 94236 JOIN T INJECTION- LARGE JOINT (SPECIFY MEDCIN DESCRIPTION) 12/08 25740 XRAY KNEE RIGHT 1 OR 2 VIEWS 12/08/2013 63271 OFFI CE VISIT Franc Barrett 12/16/2013 07915 US C AROTID DOPPLER 12/26/2013 02921 ROUT INE VENIPUNCTURE 01/11/2014 CARDIOLOG YONY BARRERA 01/11/2014 99373 CBC 01/11/2014 01863 CMP 01/11/2014 2559219 GF R CALC (RESULT ONLY) 01/11/2014 14874 LIPI D PANEL 01/11/2014 48276 TSH 01/11/2014 MR MEDICAL RECORDS Franc Marrufo 01/13/2014 CARDIOLOG GABY RICK 01/24/2014 86233 PULM ONARY FUNCTION TEST (IN- HOUSE) 01/24/2014 86443 RESP IRATORY FLOW VOLUME LOOP 01/24/2014 99612 PULM ONARY EDUCATION 01/24/2014 G0437 TOBA CHANNEL MARKETING SPECIALIST-USE INTAKE MAN>10MIN 01/24/2014 08906 [employer] 01/31/2014 35316 MRI SPINE (CERVICAL) W & W/O CONTRAST 02/14/2014 28183 MRI SPINE (LUMBAR) W & W/O CONTRAST 02/14/2014 CARDIOLOG GABY RICK 02/21/2014 MR MEDICAL RECORDS Franc Marrufo 03/22/2014 20001 EXPL ORATION OF SPINAL FUSION MarrufoFranc 05/01/2014 13500 REIN SERTION OF SPINAL FIXATION DEVICE Franc Marrufo 05/01/2014 10069 EXPL ORATION OF SPINAL FUSION Margot Gentile 05/01/2014 24197 REIN SERTION OF SPINAL FIXATION DEVICE Margot Gentile 05/01/2014 40487 OFFI CE VISIT Franc Barrett 10/06/2014 03.09 OTHE R EXPLORATION AND DECOMPRESSION OF S MARRUFOFRANC 11/07/2014 81.37 REFU MARLYS OF LUMBAR AND LUMBOSACRAL SPINE MARRUFOFRANC 11/07/2014 81.62 FUSI ON OR REFUSION OF 2-3 VERTEBRAE FRANC MARRUFO 11/07/2014 84.52 INSE RTION OF RECOMBINANT BONE MORPHOGENE FRANC MARRUFO 11/07/201418805 ALLO GRAFT MORSELIZED MarrufoFranc 12/01/201469962 POST ERIOR ARTHRODESIS LUMBAR Margot Gentile 12/01/201424449 EXPL ORATION OF SPINAL FUSION Margot Gentile 12/01/201404203 POST ERIOR NON-SEGMENTAL INSTRUMENTATION Khalida Gentilea Faith 12/01/2014 MR MEDICAL RECORDS Franc Marrufo 12/27/2014 L0648 LUMB AR-SACRAL ORTHOSIS, SAGITAL CONTROL, WITH RIGID ANTERIOR PANELS, POSTERIOR EXTENDS FROM [facility]CROCOC Franc Marrufo 01/05/2015 69559 POST OPERATIVE VISIT Franc Marrufo 01/18/2015 30283 OFFI CE VISIT EXPANDED Franc Marrufo 04/14/2017 42681 POST OPERATIVE VISIT Franc Marrufo 09/29/2017 48766 LAMI NECTOMY FOR EXCISION OR EVACUATION OF INTRASPINAL LESION OTHER THAN NEOPLASM, EXTRADURAL; LUMBAR Franc Marrufo 11/25/2017 26703 LAMI NECTOMY FOR EXCISION OR EVACUATION OF INTRASPINAL LESION OTHER THAN NEOPLASM, EXTRADURAL; LUMBAR SeferinoDivyaMargot S 11/25/2017 00512 LAMI NECTOMY LUMBAR, 1 VERTEBRAL SEGMENT SeferinoDivyaMargot S [id number] OF R KNEE JT WITH SYNTH SUB, ELOISE 04/14/2018 Results Test Result Range BMP - 07/28/17 14:17 GLUCOSE TNP mg/dL NRG CBC - 07/28/17 14:17 WHITE BLOOD CELL COUNT TNP Thousand/uL N RG CBC - 07/28/17 14:28 WHITE BLOOD CELL COUNT 7.1 Thousand/uL 3 .8-10.8 RED BLOOD CELL COUNT 4.99 Million/uL 4.2 0-5.80 HEMOGLOBIN 15.3 g/dL 13.2-17.1 HEMATOCRIT 44.9 % 38.5-50.0 MCV 90.0 fL 80.0-100.0 MCH 30.7 pg 27.0-33.0 MCHC 34.1 g/dL 32.0-36.0 RDW 12.4 % 11.0-15.0 PLATELET COUNT 319 Thousand/uL 140-400 MPV 8.6 fL 7.5-12.5 ABSOLUTE NEUTROPHILS 2854 cells/uL 1500- 7800 ABSOLUTE LYMPHOCYTES 3422 cells/uL 850-3 900 ABSOLUTE MONOCYTES 483 cells/uL 200-950 ABSOLUTE EOSINOPHILS 241 cells/uL 15-500 ABSOLUTE BASOPHILS 99 cells/uL 0-200 NEUTROPHILS 40.2 % NRG LYMPHOCYTES 48.2 % NRG MONOCYTES 6.8 % NRG EOSINOPHILS 3.4 % NRG BASOPHILS 1.4 % NRG PDM - 09 PANEL (PROFILE 1) - 11/25/17 15 :16 Prescribed Drug 1 Hydrocodone NRG Creatinine 107.7 mg/dL > or = 20.0 pH 6.30 4.5 - 9.0 Oxidant NEGATIVE [...] medMATCH Phencyclidine CONSISTENT NRG Methicillin resistant Staphylococcus aur eus (MRSA) screening culture - 04/05/18 11:20 Methicillin resistant Staphylococcus aureus (MRSA) scr eening culture NEG NRG Complete blood count (CBC) with automate d white blood cell (WBC) differential - 04/05/18 11:25 Blood leukocytes automated count (number/volume) 5.8 10*3/uL 4.3-11.0 Blood erythrocytes automated count (number/volume) 4.59 10*6/uL 4.35-5.85 Venous blood hemoglobin measurement (mass/volume) 13.9 g/dL 13.3-17.7 Blood hematocrit (volume fraction) 41 % 40-54 Automated erythrocyte mean corpuscular volume 89 [ foz_us] 80-99 Automated erythrocyte mean corpuscular h emoglobin (mass per erythrocyte) 30 pg 25-34 Automated erythrocyte mean corpuscular h emoglobin concentration measurement (mass/volume) 34 g/dL 32-36 Automated erythrocyte distribution width ratio 13. 5 % 10.0- 14.5 Automated blood platelet count (count/volume) 276 10*3/uL [...] 10*3 1.0-4.0 Blood monocytes automated count (number/volume) 0. 5 10*3 0.0-1.0 Automated eosinophil count 0.1 10*3/uL 0 .0-0.3 Automated blood basophil count (count/volume) 0.1 10*3/uL 0.0-0.1 Comprehensive metabolic panel - 04/05/18 11:25 Serum or plasma sodium measurement (moles/volume) 138 mmol/L 135-145 Serum or plasma potassium measurement (moles/volume) 4.2 mmol/L 3.6-5.0 Serum or plasma chloride measurement (moles/volume) 107 mmol/L 98-107 Carbon dioxide 22 mmol/L 21-32 Serum or plasma anion gap determination (moles/volume) 9 mmol/L 5-14 Serum or plasma urea nitrogen measurement (mass/volume ) 15 mg/dL 7-18 Serum or plasma creatinine measurement (mass/volume) 0.92 mg/dL 0.60-1.30 Serum or plasma urea nitrogen/creatinine mass ratio 16 NRG Serum or plasma creatinine measurement w ith calculation of estimated glomerular filtration rate > NRG Serum or plasma glucose measurement (mass/volume) 92 mg/dL 70-105 Serum or plasma calcium measurement (mass/volume) 9.5 mg/dL 8.5-10.1 Serum or plasma total bilirubin measurement (mass/volu me) 0.5 mg/dL 0.1-1.0 Serum or plasma alkaline phosphatase yesika surement (enzymatic activity/volume) 89 U/L 40-136 Serum or plasma aspartate aminotransfera se measurement (enzymatic activity/volume) 17 U/L 5-34 Serum or plasma alanine aminotransferase measurement (enzymatic activity/volume) 23 U/L 0-55 Serum or plasma protein measurement (mass/volume) 7.1 g/dL 6.4-8.2 Serum or plasma albumin measurement (mass/volume) 4.3 g/dL 3.2-4.5 CALCIUM CORRECTED 9.3 mg/dL 8.5-10.1 PT panel in platelet poor plasma by coag ulation assay - 04/05/18 11:25 Prothrombin time (PT) in platelet poor plasma by coagu lation assay 13.4 s 12.2-14.7 INR in platelet poor plasma or blood by coagulation as say 1.0 0.8-1.4 Erythrocyte sedimentation rate by shruthi gren method - 04/05/18 11:25 Erythrocyte sedimentation rate by westergren method 17 mm 0- 30 Blood type T Indirect antibody screen [facility] - 04/05/18 11:25 ABO+Rh group AP NRG Transfusion band number TNP NRG Blood group antibody screen NEGATIVE NR G Complete urinalysis with reflex to cultu re - 04/05/18 11:30 Urine color determination YELLOW NRG Urine clarity determination CLEAR NR G Urine pH measurement by test strip 6.5 5-9 Specific gravity of urine by test strip 1.005 1.016-1.022 Urine protein assay by test strip, semi-quantitative NEGATIVE NEGATIVE Urine glucose detection by automated test strip NE GATIVE NEGATIVE Erythrocytes detection in urine sediment by light micr oscopy NEGATIVE NEGATIVE Urine ketones detection by automated test strip NE GATIVE NEGATIVE Urine nitrite detection by test strip NEGATIVE NEGATIVE Urine total bilirubin detection by test strip NEGA TIVE NEGATIVE Urine urobilinogen measurement by automated test strip (mass/volume) NORMAL NORMAL Urine leukocyte esterase detection by dipstick 1+ NEGATIVE Automated urine sediment erythrocyte cou nt by microscopy (number/high power field) NONE NRG Automated urine sediment leukocyte count by microscopy (number/high power field) RARE NRG Bacteria detection in urine sediment by light microsco py NEGATIVE NRG Squamous epithelial cells detection in u rine sediment by light microscopy NONE NRG Crystals detection in urine sediment by light microsco py NONE NRG Casts detection in urine sediment by light microscopy NONE NRG Mucus detection in urine sediment by light microscopy NEGATIVE NRG Complete urinalysis with reflex to culture NO NRG Blood type T Indirect antibody screen [facility] 04/14/18 06:25 ABO+Rh group AP NRG Transfusion band number [id number] NRG Blood group antibody screen NEGATIVE NR G Whole blood hemoglobin and hematocrit [facility] - 04/15/18 06:00 Venous blood hemoglobin measurement (mass/volume) 11.3 g/dL 13.3-17.7 Blood hematocrit (volume fraction) 34 % 40-54 Whole blood hemoglobin and hematocrit [facility] - 04/16/18 05:40 Venous blood hemoglobin measurement (mass/volume) 11.8 g/dL 13.3-17.7 Blood hematocrit (volume fraction) 35 % 40-54 [facility] 12/22/18 12:45 GLUCOSE 89 mg/dL 65-99 UREA NITROGEN (BUN) 21 mg/dL 7-25 CREATININE 1.17 mg/dL 0.70-1.33 eGFR NON-AFR. EMIRATI 69 mL/min/1.73m2 > OR = 60 eGFR 80 mL/min/1.73m2 > OR = 60 BUN/CREATININE RATIO NOT APPLICABLE (calc) 6-22 SODIUM 136 mmol/L 135-146 POTASSIUM 4.1 mmol/L 3.5-5.3 CHLORIDE 102 mmol/L 98-110 CARBON DIOXIDE 29 mmol/L 20-32 CALCIUM 9.7 mg/dL 8.6-10.3 PROTEIN, TOTAL 7.7 g/dL 6.1-8.1 ALBUMIN 4.6 g/dL 3.6-5.1 GLOBULIN 3.1 g/dL (calc) 1.9-3.7 ALBUMIN/GLOBULIN RATIO 1.5 (calc) 1.0-2. 5 BILIRUBIN, TOTAL 0.5 mg/dL 0.2-1.2 ALKALINE PHOSPHATASE 107 U/L 40-115 AST 18 U/L 10-35 ALT 21 U/L 9-46 Arterial blood gas measurement - 0 10:49 Blood pCO2 41 mm[Hg] 35-45 Blood pO2 74 mm[Hg] 79-93 Arterial blood bicarbonate measurement (moles/volume) 24 mmol/L 23-27 Arterial blood base excess by calculation -0.1 mmo l/L -2.5-2.5 Arterial blood oxygen saturation measurement 96 % 94-100 * Inhaled oxygen flow rate 0 NRG Arterial blood pH measurement with patient temperature correction 7.39 7.37-7.43 Arterial blood carbon dioxide, total measurement (mole s/volume) 25.6 mmol/L 21.0-31.0 Body site RIGHT RADIAL NRG Assessment of wrist artery patency prior to arterial p uncture POSITIVE NRG Setting of ventilation mode NO NR G Measurement of body temperature 35.8 NRG Comprehensive metabolic panel - 11/16/19 12:15 Serum or plasma sodium measurement (moles/volume) 137 mmol/L 135-145 Serum or plasma potassium measurement (moles/volume) 4.6 mmol/L 3.6-5.0 Serum or plasma chloride measurement (moles/volume) 107 mmol/L 98-107 Carbon dioxide 24 mmol/L 21-32 Serum or plasma anion gap determination (moles/volume) 6 mmol/L 5-14 Serum or plasma urea nitrogen measurement (mass/volume ) 15 mg/dL 7-18 Serum or plasma creatinine measurement (mass/volume) 1.00 mg/dL 0.60-1.30 Serum or plasma urea nitrogen/creatinine mass ratio 15 NRG Serum or plasma creatinine measurement w ith calculation of estimated glomerular filtration rate > NRG Serum or plasma glucose measurement (mass/volume) 95 mg/dL 70-105 Serum or plasma calcium measurement (mass/volume) 9.5 mg/dL 8.5-10.1 Serum or plasma total bilirubin measurement (mass/volu me) 0.3 mg/dL 0.1-1.0 Serum or plasma alkaline phosphatase yesika surement (enzymatic activity/volume) 93 U/L 40-136 Serum or plasma aspartate aminotransfera se measurement (enzymatic activity/volume) 23 U/L 5-34 Serum or plasma alanine aminotransferase measurement (enzymatic activity/volume) 32 U/L 0-55 Serum or plasma protein measurement (mass/volume) 7.5 g/dL 6.4-8.2 Serum or plasma albumin measurement (mass/volume) 4.2 g/dL 3.2-4.5 CALCIUM CORRECTED 9.3 mg/dL 8.5-10.1 Complete blood count (CBC) with automate d white blood cell (WBC) differential - 11/16/19 12:15 Blood leukocytes automated count (number/volume) 6.0 10*3/uL 4.3-11.0 Blood erythrocytes automated count (number/volume) 4.55 10*6/uL 4.35-5.85 Venous blood hemoglobin measurement (mass/volume) 13.7 g/dL 13.3-17.7 Blood hematocrit (volume fraction) 41 % 40-54 Automated erythrocyte mean corpuscular volume 89 [ foz_us] 80-99 Automated erythrocyte mean corpuscular h emoglobin (mass per erythrocyte) 30 pg 25-34 Automated erythrocyte mean corpuscular h emoglobin concentration measurement (mass/volume) 34 g/dL 32-36 Automated erythrocyte distribution width ratio 13. 8 % 10.0- 14.5 Automated blood platelet count (count/volume) 255 10*3/uL 130-400 Automated blood platelet mean volume measurement 9.1 [foz_us] 7.4-10.4 Automated blood neutrophils/100 leukocytes 53 % 42-75 Automated blood lymphocytes/100 leukocytes 35 % 12-44 Blood monocytes/100 leukocytes 9 % 0-12 Automated blood eosinophils/100 leukocytes 3 % 0-10 Automated blood basophils/100 leukocytes 1 % 0-10 Blood neutrophils automated count (number/volume) 3.2 10*3 1.8-7.8 Blood lymphocytes automated count (number/volume) 2.1 10*3 1.0-4.0 Blood monocytes automated count (number/volume) 0. 5 10*3 0.0-1.0 Automated eosinophil count 0.2 10*3/uL 0 .0-0.3 Automated blood basophil count (count/volume) 0.1 10*3/uL 0.0-0.1 PT panel in platelet poor plasma by coag ulation assay - 11/16/19 12:15 Prothrombin time (PT) in platelet poor plasma by coagu lation assay 13.0 s 12.2-14.7 INR in platelet poor plasma or blood by coagulation as say 0.9 0.8-1.4 Erythrocyte sedimentation rate by shruthi gren method - 11/16/19 12:15 Erythrocyte sedimentation rate by westergren method 17 mm 0- 30 Blood type T Indirect antibody screen pa yudy - 11/16/19 12:15 WRISTBAND NUMBER TNP NRG ABO+Rh group AP NRG Blood group antibody screen NEGATIVE NR G Methicillin resistant Staphylococcus aur eus (MRSA) screening culture - 11/16/19 12:15 Methicillin resistant Staphylococcus aureus (MRSA) scr eening culture NEG NRG Coronavirus SARS-CoV-2 SO 2019 - 0 08:01 Coronavirus Ab [Units/volume] in Serum Negative Negative Radiology Report from [id number] on 018 17:20:42 DATE OF PROCEDURE: 08/12/2017

A CCESSION NUMBER#: [id number]

PROCEDURES: Limited intraoperative crosstable lateral x-ray of the lumbar spine.

INDICATIONS: The patient with low back pain.

COMPARISON: Limited intraoperative x-ray of the lumbosacral region dated 06/28/2013.

FINDINGS: There is L3-L4 posterior fusion hardware noted. There is a screw fragment within the L5 pedicle region. There is L4-L5 laminectomies with bony bridging/fusion changes posteriorly. There also appears to be some degree of intervertebral bony bridging at the L3-L4 and L4-L5 levels. There is a linear radiodense surgical instrument with its tip overlying the posterior elements of the upper lumbar spine and pointing at the lower L2 vertebral body level. There is another linear radiodense surgical instrument with its tip overlying the posterior elements of mid lumbar spine and pointing at the mid L3 vertebral body level.

There is degenerative spurs and facet arthropathy involving the lumbar spine.

IMPRESSION:
1. X-ray of the lumbar spine for surgical planning.
2. Postop changes to the lumbar spine, as described above.
3. Lumbar spine degenerative disease.

[1237] Encounters ACCT No. Visit Date/Time Discharge Status Pt. Type Provider Facility Loc./Unit Complaint [id number] 10/19/2019 11:20:00 10/19/2019 23:59: 59 CLS Outpatient [facility] [id number] 12/22/2018 12:40:00 Document Registration [id number] 11/25/2017 15:00:00 Document Registration [id number] 07/28/2017 14:17:00 Document Registration [id number] 07/28/2017 13:40:00 Document Registration [id number] 11/21/2019 05:42:00 020 13:15:00 DIS Outpatient SARAHY LAMAR, VICKY Lanier [facility] PREOP LEFT KNEE OSTEOARTHRIT IS [id number] 11/16/2019 06:50:00 23:59:59 CLS Outpatient PINA PEREZ APRN [facility] LABNPT [id number] 09/19/2019 20:00:00 23:59:59 CLS Preadmit GIGI BALDERRAMA DO [facility] SLEEP SLEEP DISORDER,EXCESSIV E DAYTIME SLEEPINESS [id number] 07/15/2019 09:56:00 23:59:59 CLS Outpatient GIGI BALDERRAMA DO [facility] RT SOB ON EXERTION [id number] 04/14/2018 05:52:00 10:35:00 DIS Inpatient VICKY WEATHERS MD [facility] 4TH OSTEOARTHRITIS RIGHT KN EE [id number] 04/05/2018 10:54:00 15:00:00 DIS Outpatient VICKY WEATHERS MD [facility] PREOP OSTEOARTHRITIS RIGHT K NEE [id number] 02/19/2017 16:08:00 017 23:59:59 CLS Outpatient MARIO DPM, KEYUR Q [facility] RAD M76.72 [id number] 02/06/2017 12:42:00 017 23:59:59 CLS Preadmit MARIO DPM, KEYUR Q [facility] RAD M76.72 [id number] 01/14/2017 08:27:00 017 23:59:59 CLS Outpatient PREETHI YIN [facility] RAD M54.16 [id number] 01/02/2017 10:27:00 017 23:59:59 CLS Preadmit PREETHI YIN [facility] RAD M54.16 [id number] 11/07/2015 06:32:00 016 10:45:00 DIS Outpatient VICKY WEATHERS MD [facility] SDC RIGHT TORN ROTATOR CUF F [id number] 11/01/2015 10:01:00 11:00:00 DIS Outpatient VICKY WEATHERS MD [facility] PREOP RIGHT TORN ROTATOR CUF F [id number] 10/03/2015 09:04:00 016 14:00:00 DIS Outpatient VICKY WEATHERS MD [facility] SDC LABRAL LESION [id number] 09/27/2015 12:02:00 016 12:45:00 DIS Outpatient VICKY WEATHERS MD [facility] PREOP LEFT SHOULDER LABRAL L ESION [id number] 09/17/2015 15:31:00 016 23:59:59 CLS Outpatient VICKY WEATHERS MD [facility] RAD BILAT ROTATOR CUFF TEA R [id number] 05/04/2015 13:01:00 23:59:59 CLS Outpatient NEREIDA LUJAN MD [facility] CARD DDJS LUMBAR RADICULOPAT HY [id number] 01/22/2014 13:20:00 014 15:40:00 DIS Emergency REYMUNDO CHAN DO [facility] ER DIZZINESS HEADACHE [id number] 03/02/2013 15:29:00 013 17:39:00 DIS Emergency CHARLOTTE ARTIS [facility] ER ASSUALT [id number] 11/23/2019 08:00:00 P EN Preadmit VICKY WEATHERS MD OSTEOARTHRITIS LEFT KNEE [id number] 12/26/2017 16:11:10 12/26/2017 23:59 :59 CLS Outpatient Franc Marrufo [id number] 02/21/2014 12:15:00 02/21/2014 23:59: 59 CLS Outpatient JNAE CHANDLER APRN [id number] 02/14/2014 10:23:00 02/14/2014 23:59: 59 CLS Outpatient JANE CHANDLER APRN [id number] 01/31/2014 10:14:00 01/31/2014 23:59: 59 CLS Outpatient JANE CHANDLER APRN [id number] 01/24/2014 15:56:00 01/24/2014 23:59: 59 CLS Outpatient SHANITA CANCHOLA DO [id number] 01/11/2014 12:08:00 01/11/2014 23:59: 59 CLS Outpatient SHANITA CANCHOLA DO [id number] 01/05/2014 11:14:00 01/05/2014 23:59: 59 CLS Outpatient JANE CHANDLER APRN [id number] 12/26/2013 15:20:00 12/26/2013 23:59: 59 CLS Outpatient EDE ALLENOSMANI Tessy [id number] 12/08/2013 13:23:00 12/08/2013 23:59: 59 CLS Outpatient SHANITA CANCHOLA DO [id number] 12/08/2013 13:23:00 12/08/2013 23:59: 59 CLS Outpatient SHANITA CANCHOLA DO [id number] 12/01/2013 12:05:00 12/01/2013 23:59: 59 CLS Outpatient SHANITA CANCHOLA DO [id number] 11/03/2013 10:03:00 11/03/2013 23:59: 59 CLS Outpatient JANE CHANDLER APRN [id number] 08/12/2017 05:33:00 08/12/2017 14: 21:00 DIS Outpatient FRANC MARRUFO L2-3 laminectomy with resection of cyst. Dx cyst bone, stenosis, osteophyte. [id number] 11/07/2014 08:26:00 Document Registration
[2019-11-23] MEDS ORDERED: CEFUROXIME INJECTION 1,500 MG in WATER (STERILE) FOR INJECTION 15 ML IV ONE (06:30)
[2019-11-23] MEDS: LACTATED RINGERS 1,000 ML IV PRN ×3 (06:52→09:20)
[2019-11-23] MEDS ORDERED: ROCURONIUM 10 MG/ML 5 ML SYRINGE IV ONE (06:58)
[2019-11-23] MEDS ORDERED: LIDOCAINE PF 2% 5 ML (XYLOCAINE) VIAL ONE ×2 (06:58→08:10)
[2019-11-23] MEDS ORDERED: ONDANSETRON 4 MG/2 ML (SDV) Z0FRAN ONE (06:58)
[2019-11-23] MEDS ORDERED: fentaNYL INJECTION 100 MCG/2 ML AMP ONE (06:58)
[2019-11-23] MEDS ORDERED: SUCCINYLCHOLINE INJ 100 MG/5 ML SYR ONE (06:58)
[2019-11-23] MEDS ORDERED: proPOfol 200 MG/20 ML (DIPRIVAN) VIAL IV ONE (06:58)
[2019-11-23] MEDS ORDERED: MIDAZOLAM 2 MG/2 ML (VERSED) VIAL ONE (06:59)
[2019-11-23] MEDS ORDERED: oxyCODONE/APAP 5/325MG (PERCOCET 5) TABLET PO PRN (07:15)
[2019-11-23] MEDS ORDERED: ACETAMINOPHEN 325 MG TABLET PO PRN (07:15)
[2019-11-23] MEDS ORDERED: morphine PCA 100 MG/100 ML BAG IV PRN (07:15)
[2019-11-23] MEDS ORDERED: ONDANSETRON 4 MG/2 ML (SDV) Z0FRAN IVP PRN ×2 (07:15→09:30)
[2019-11-23] MEDS ORDERED: diphenhydrAMINE 50 MG/ML INJ (BENADRYL) IM PRN (07:15)
--- NOTE | 2019-11-23 07:29 | Progress Note-Pre Operative ---
Pre-Operative Progress Note H&P Reviewed The H&P was reviewed, patient examined and no changes noted. Date Seen by Provider: Nov 23, 2019 Time Seen by Provider: 07:25 Date H&P Reviewed: Nov 23, 2019 Time H&P Reviewed: 07:11 Pre-Operative Diagnosis: left knee primary osteoarthritis VICKY WEATHERS MD Nov 23, 2019 07:29
--- NOTE | 2019-11-23 07:30 | Progress Note-Post Operative ---
Post-Operative Progess Note Surgeon (s)/Skin Former (s) Surgeon VICKY WEATHERS MD Skin Former: Danie Wynn Pre-Operative Diagnosis left knee primary osteoarthritis Post-Operative Diagnosis left knee primary osteoarthritis Procedure & Operative Findings Date of Procedure 11/23/19 Procedure Performed/Findings left total knee arthroplasty Anesthesia Type GETA Estimated Blood Loss Estimated blood loss (mL): minimal Specimens/Packing Specimens Removed none Packing: none VICKY WEATHERS MD Nov 23, 2019 07:30
--- NOTE | 2019-11-23 07:32 | D/C HH Face to Face Order ---
D/C Face to Face Orders Reconcile Patient Problems Problems Reviewed?: Yes Instructions for Patient [facility] [employer], Patient Instructions/FollowUp: three weeks Physician to follow Patient: three weeks Discharge Diet for Home: Regular Diet Patient Data-Allergies,Ht & Wt Patient Allergies: Coded Allergies: hydromorphone (Verified Allergy, Severe, CONFUSION, 11/16/19) Height (Feet): 5 Height (Inches): 11.00 Weight (Pounds): 218 Weight (Ounces): 8.0 Home Health Need/Face to Face Date of Face to Face: Nov 23, 2019 Clinical Findings: Instability, Muscle weakness, Pain with ambulation, Unsteady gait I have seen Pt jzoj-kn-[id number]: Yes Discharged To: Home Diagnosis/Conditions: left total knee arthroplasty Patient is Homebound due to: John fall risk due to instabilty, Muscle weakness, Pain w/ambulation Homebound Status Due to the above stated illness, injury or surgical procedure (medical condition or diagnosis) and associated clinical findings, the patient is homebound because of his/her inability to leave home except with aid of a supportive device and/or person AND leaving the home requires a considerable and taxing effort or is medically contraindicated. Pt req the following assistanc: Walker Home Health Nursing Orders Home Health Services Order: Physical Therapy-Evaluate & Treat DC left knee marcelo and apply steri strips 12/07/19 Home Health Infusion Therapy Line Start Date: Nov 23, 2019 Therapy Orders Therapy Orders: Physical Therapy, PT to assess for OT Therapy Specific Orders: Eval assistive deivces, Teach enviro modifications/saf ety, Gait training, Increase strength/endurance, Provider maintenance therapy, Restore ROM Certify Stmt I certify that this patient is under my care and that I, a nurse practitioner or a physician; a ob gyn physician assistant working with me, had a face to face encounter that - meets the physician face to face encounter requirements with this patient as dated. VIKCY WEATHERS MD Nov 23, 2019 07:32
[2019-11-23] MEDS ORDERED: BUPIVACAINE 0.5% 30 ML (SENSORCAINE) VIAL ONE (08:10)
[2019-11-23] MEDS ORDERED: INTRA-ARTICULAR IU ONE ×5 (08:15)
[2019-11-23] MEDS ORDERED: SEVOFLURANE (ULTANE) 15 ML INHAL SOLN ONE (09:11)
[2019-11-23] MEDS ORDERED: RT-ALBUTEROL INHALER HFA (VENTOLIN HFA) 8 GM IH ONE (09:16)
[2019-11-23] MEDS ORDERED: morphine INJ 10 MG/ML 1ML (SYR OR VIAL) IVP ONE (09:30)
[2019-11-23] MEDS ORDERED: morphine INJ 10 MG/ML 1ML (SYR OR VIAL) ONE (09:59)
--- NOTE | 2019-11-23 10:04 | Diagnostic Imaging Report ---
INDICATION: Postop left knee. Time of exam: 9:40 AM Two views of the left knee demonstrate postoperative changes of total knee arthroplasty. Prosthetic elements are in good position. No fracture loosening is seen. IMPRESSION: Satisfactory postop left knee. Dictated by: Dictated on workstation # [id number]
--- NOTE | 2019-11-23 10:17 | Progress Note ---
Standard Progress Note Progress Notes/Assess & Plan Date Seen by a Provider: Nov 23, 2019 Time Seen by a Provider: 10:15 Progress/Assessment & Plan post op check no complaints Radiographs--HW well positioned without fracture LLE--brisk cap refill with 1 plus DP pulse. Intact sensation to light touch throughout. intact DF and PF of toes and ankles s/p LTKA mobilize as able VICKY WEATHERS MD Nov 23, 2019 10:17
--- NOTE | 2019-11-23 10:30 | NUR ---
PT ARRIVED TO FLOOR VIA BED, REPORT RECEIVED AT BEDSIDE FROM CATRACHO BAUTISTA RN. PT DENIES NEEDS AT THIS TIME, CALL LIGHT IN REACH, FAMILY AT BEDSIDE. WILL CONTINUE TO MONITOR.
--- NOTE | 2019-11-23 10:59 | NUR ---
DR SIERRA NOTIFIED OF CONSULT
--- NOTE | 2019-11-23 11:42 | NUR ---
PHARMACY NOTIFIED FOR MED VERIFICATION
[2019-11-23] MEDS: SENNA W/DOCUSATE (SENOKOT S) TABLET PO SCH ×2 (11:50→21:21)
[2019-11-23] MEDS: NS IV 1000 ML 1,000 ML IV SCH (11:54)
--- NOTE | 2019-11-23 11:55 | NUR ---
PT REFUSING RAMPMAN AT THIS TIME. PT GIVEN PO OXY 5MG PER ORDER.
[2019-11-23] MEDS: oxyCODONE/APAP 5/325MG (PERCOCET 5) TABLET PO PRN ×3 (13:17→21:21)
--- NOTE | 2019-11-23 13:39 | Physical Therapy Evaluation ---
PT Evaluation-General Medical Diagnosis Admission Date Nov 23, 2019 at 06:10 Medical Diagnosis: left TKA Onset Date: Nov 23, 2019 Therapy Diagnosis Therapy Diagnosis: impaired mobility, strength, endurance, ROM Height/Weight Height (Feet): 5 Height (Inches): 11.00 Weight (Pounds): 218 Weight (Ounces): 8.0 Precautions Precautions/Isolations: Standard Precautions Weight Bear Status Left Lower Extremity: Left Weight Bearing/Tolerated Referral Physician: Kingsley Reason for Referral: Evaluation/Treatment Medical History Pertinent Medical History: COPD, HTN, OA Additional Medical History PAST MEDICAL HISTORY: Hyperlipidemia, hypertension, chronic back pain, COPD, carotid disease, abdominal hernia, chronic pain syndrome, anxiety disorder, fibromyalgia. PAST SURGICAL HISTORY: Cervical spine x2, lumbar spine x4, appendectomy, colonoscopy, right shoulder, left shoulder, right total knee arthroplasty and herniorrhaphy. Reviewed History: Yes Social History Home: [facility] Current Living Status: Spouse Entry Into Home: Level Entry Prior Prior Level of Function SCALE: Activities may be completed with or without assistive devices. 5-Rfuvnripwj-uyjkxex completes the activity by him/herself with no assistance from a helper. 5-Set-up or Clean-up Assistance-helper sets up or cleans up; patient completes activity. [place] assists only prior to or following the activity. 4-Supervision or Touching Assistance-helper provides verbal cues and/or touching/steadying and/or contact guard assistance as patient completes activity. Assistance may be provided throughout the activity or intermittently. 3-Partial/Moderate Assistance-helper does LESS THAN HALF the effort. [place] lifts, holds or supports trunk or limbs, but provides less than half the effort. 2-Substantial/Maximal Assistance-helper does MORE THAN HALF the effort. [place] lifts or holds trunk or limbs and provides more than half the effort. 3-Qpqhljslm-kkaqar does ALL the effort. Patient does none of the effort to complete the activity. Or, the assistance of 2 or more helpers is required for the patient to complete the activity. If activity was not attempted, code reason: 7-Patient Refused. 9-Not Applicable-not attempted and the patient did not perform the activity before the current illness, exacerbation or injury. 10-Not Attempted due to Environmental Limitations-(lack of equipment, weather restraints, etc.). 88-Not Attempted due to Medical Conditions or Safety Concerns. Bed Mobility: 6 Transfers (B,C,W/C): 6 Gait: 6 Stairs: 6 Indoor Mobility (Ambulation): Independent Stairs: Independent PT Evaluation-Current Subjective Patient in bed pre tx, agrees to PT, has 7/10 pain in left knee, nurse is in room and gives him pain meds. Pt/Family Goals to be independent at home Objective Patient Orientation: Person, Place, Situation Attachments: IV ROM/Strength ROM Lower Extremities left knee extension +2 degrees, flexion 90 degrees Sensory Vision: Wears Glasses Hearing: Functional Sensation Right Lower Extremit: Intact Sensation Left Lower Extremity: Impaired Sensation Lower Extremities Patient still has some numbness below left knee. Transfers Roll Left to Right (QC): 6 Sit to Lying (QC): 6 Lying to Sitting/Side of Bed(Q: 6 Sit to Stand (QC): 4 Chair/Ydq-ne-Vslqf Xfer(QC): 4 SBA for sit to stand and transfers, cues for safety and positioning, slight light headedness immediately upon sitting but cleared after a few moments Gait Does the Patient Walk?: Yes Mode of Locomotion: Walk Anticipated Mode of Locomotion: Walk Walk 10 feet (QC): 4 Walk 50 ft with 2 Turns(QC): 4 Walk 150 ft (QC): 4 Distance: 300' Gait Assistive Device: FWW Comments/Gait Description SBA, antalgic, slow but steady, good heel strike, decreased knee flexion during ambulation, good step-through Balance Sitting Static: Normal Sitting Dynamic: Normal Standing Static: Good Standing Dynamic: Good Treatment BLE supine total knee protocol x10 (AP, HS, QS, SLR, SAQ), patient refused to don CPM machine, he says it hurts too much and does more damage than good, he says he tried it last time. Patient instructed to perform QS and HS several time morning and afternoon since he is not going to wear the CPM. Assessment/Needs Patient has impaired mobility, strength, endurance, ROM. Patient in bed post tx with nurse call, phone, tray, in room, SCD's and polar care on. Rehab Potential: Fair PT Caustic Liquor Maker Goals Caustic Liquor Maker Goals PT Intermediate Goals Time Frame: Nov 30, 2019 Roll Left & Right (QC): 6 Sit to Lying (QC): 6 Lying-Sitting on Side/Bed(QC): 6 Sit to Stand (QC): 6 Chair/Xlf-nv-Admwa Xfer(QC): 6 Walk 10 feet (QC): 6 Walk 50ft with 2 Turns (QC): 6 Walk 150 ft (QC): 6 1 Step (curb) (QC): 4 4 Steps (QC): 4 12 Steps (QC): 4 PT Plan Problem List Problem List: Activity Tolerance, Functional Strength, Safety, Balance, Gait, Transfer Treatment/Plan Treatment Plan: Continue Plan of Care Treatment Plan: Bed Mobility, Education, Functional Activity Jody, Functional Strength, Gait, Safety, Therapeutic Exercise, Transfers Treatment Duration: Nov 30, 2019 Frequency: 11 times per week Estimated Hrs Per Day: .25 hour per day Patient and/or Family Agrees t: Yes Safety Risks/Education Patient Education: Gait Training, Transfer Techniques, Reviewed Use of Ice, Correct Positioning, Safety Issues Teaching Recipient: Patient Teaching Methods: Demonstration, Discussion Response to Teaching: Reinforcement Needed Discharge Recommendations Plan Patient will perform bed mobility and transfer training, balance and endurance training, functional strengthening, stair training, gait training, and education, to improve functional mobility and independence at home. Therapy Discharge Recommendati: Home & Family Time/GCodes Time In: 1308 Time Out: 1328 Total Billed Treatment Time: 20 Total Billed Treatment 1 visit WALTER Mallory' TAMRA WOMACK PT Nov 23, 2019 13:39
--- NOTE | 2019-11-23 13:52 | OPERATIVE REPORT ---
DATE OF SERVICE: 11/23/2019 PREOPERATIVE DIAGNOSIS: Left knee primary osteoarthritis. POSTOPERATIVE DIAGNOSIS: Left knee primary osteoarthritis. PROCEDURE: Left total knee arthroplasty. SURGEON: Jason Eller MD [employer]RE[employer] SPECIALIST: Danie Wynn, who assisted throughout the procedure and closed the incisions. ANESTHESIA: General endotracheal by Jero Gaitan CRNA. TOURNIQUET TIME: Approximately 70 minutes at 300 mmHg. ESTIMATED BLOOD LOSS: Minimal. DRAINS: None. COMPLICATIONS: None. POSTOPERATIVE PLAN: Routine total knee arthroplasty protocol. The patient was transferred to the recovery room, awake and in stable condition. MATERIALS: Microport cemented size 6 femur, cemented size 6 tibia with 10 mm insert and cemented size 32 patellar button. PROCEDURE IN DETAIL: After risks and benefits of procedure were discussed and questions were answered, informed consent was signed and placed on chart, the operative site was confirmed in the preoperative holding area initialed by the surgeon. The patient was then transferred to the operating room and after adequate levels of general endotracheal anesthetic were obtained, a timeout was called, confirming the operative site. The left lower extremity was prepped and draped in the usual sterile fashion. With the leg elevated and the knee flexed, tourniquet was inflated to 300 mmHg. Standard anterior approach was utilized. Hemostasis was obtained with cautery. Medial parapatellar arthrotomy was performed leaving 1 cm cuff on the patella for later reattachment. A portion of the fat pad was resected. A subperiosteal release was performed in the proximal medial tibia being careful to stay on the bony surface. The ACL was resected. Intramedullary guide was passed into the femur and the distal cutting block was placed. Distal cut was made. Femur sized to a size 6. The cutting block was placed parallel to the epicondylar axis and cuts were made from posterior to anterior. A subperiosteal release was then carefully performed on the posterior distal femur, being careful to stay on the bony surface. Intramedullary guide was then passed into the tibia. The cutting block was placed. The drop monica transected the intermalleolar axis and the cut was made. A 6 baseplate was placed, and the drop monica transected the intermalleolar axis. This was prepared with a drill and keel punch. The femoral trial was placed. The trochlear cut was made. A 10 mm insert was then placed and the tibial anteriorly; therefore, the PCL was released. The patella was then prepared using the freehand technique resecting 10 mm off the undersurface. Peg guide was placed, and peg holes were drilled. The trials were inserted, 10 mm insert was placed. Full extension was easily obtained, 120 degrees of flexion with gravity was easily obtained. The patella tracked well. There was no anterior/posterior or medial/lateral laxity in flexion or extension. The trials were removed. The joint was irrigated with pulse lavage. Periarticular block was placed in the posterior capsule, medial and lateral retinaculum, extensor mechanism, subcutaneous tissues. The bone ends were irrigated and dried. The tibial baseplate was cemented into position. Excessive cement was removed. The superior surface was irrigated and dried and the polyethylene insert was placed. Distal femur was irrigated and dried and the femoral prosthesis was cemented into position. Excessive cement was removed. The knee was brought out into full extension until the cement had cured. The undersurface of patella was irrigated and dried and the patella button was cemented into position. Excessive cement was removed. Once the cement had cured, the knee was taken through range of motion. Full extension was easily obtained 120 degrees of flexion with gravity was easily obtained. There was no anterior/posterior or medial/lateral laxity in flexion or extension. The knee was further irrigated using pulse lavage. The arthrotomy was closed with #2 Tevdek in umzzyc-zw-wuxti interrupted fashion. The knee was flexed. The patella tracked well with no undue tension at the repair site. The subcutaneous tissues were irrigated using a total of 6 liters throughout the procedure. A 0 Vicryl was used for the deep subcutaneous tissues. A 2-0 Vicryl for the superficial subcutaneous tissue, marcelo used on the skin. A soft dressing was applied. The tourniquet was deflated, and the patient was transferred to the recovery room, awake, and in stable condition. Job ID: [id number] DocumentID: [id number] Dictated Date: 11/23/2019 09:24:33 Assistant Superintendent Date: 11/23/2019 13:52:05 Dictated By: JASON ELLER MD
--- NOTE | 2019-11-23 15:21 | Consultation ---
HPI History of Present Illness: Patient here for L total knee. States that he is feeling well this afternoon. States that his pain is well controlled. Denies any history of DM. Currently on medications for HTN, HLD, and COPD. States that he is a current smoker. Previously had Right Total knee 2 years ago. Source: patient, spouse Exam Limitations: no limitations Date seen by provider: Nov 23, 2019 Time Seen by Provider: 11:05 Attending Physician Jason Eller MD [facility] Consult Date of Admission Nov 23, 2019 at 06:10 Home Medications Home Medications Reviewed patient Home Medication Reconciliation performed by pharmacy medication reconciliations rfid technician and/or nursing. Patients Allergies have been reviewed. Allergies Coded Allergies: hydromorphone (Verified Adverse Reaction, Severe, CONFUSION, 11/23/19) MSG-Zqfxep-Elsqns Hx Patient Social History Alcohol Use: Denies Use Recreational Drug Use: No Smoking Status: Current Everyday Smoker Type Used: Cigarettes Recent Foreign Travel: No Contact w/other who traveled: No Recent Hopitalizations: No Recent Infectious Disease Expo: No Physical Abuse Screen: No Sexual Abuse: No Immunizations Up To Date Date of Pneumonia Vaccine: Feb 22, 2018 Date of Influenza Vaccine: May 25, 2017 Past Medical History HTN HLD COPD Tobacco Abuse Family Medical History Significant Family History: No Pertinent Family Hx Family History: FH: heart disease 19 MOTHER Review of Systems ([facility]) Constitutional: no symptoms reported; No chills, No fever EENTM: no symptoms reported; No mouth pain, No nose congestion, No throat pain Respiratory: cough (chronic ); No dyspnea on exertion, No short of breath Cardiovascular: no symptoms reported; No chest pain, No palpitations Gastrointestinal: no symptoms reported; No abdominal pain, No constipation, No diarrhea, No nausea, No vomiting Genitourinary: no symptoms reported; No dysuria, No frequency, No hematuria Musculoskeletal: joint pain Skin: no symptoms reported Psychiatric/Neurological: No Symptoms Reported Physical Exam-([facility]) Physical Exam Vital Signs VS - Last 72 Hours, by Label 11/23/19 11/23/19 11/23/19 11/23/19 06:35 06:35 09:00 09:25 Temp 36.1 36.1 Pulse 67 Resp 18 14 B/P (MAP) 163/94 140/82 (101) Pulse Ox 99 99 94 O2 Delivery Room Air Room Air Room Air OxyMask O2 Flow Rate 12 11/23/19 11/23/19 11/23/19 11/23/19 09:25 09:30 09:40 09:40 Resp 11 11 B/P (MAP) 137/82 (100) 150/85 (106) Pulse Ox 94 94 O2 Delivery OxyMask OxyMask OxyMask OxyMask O2 Flow Rate 12 12 12 12 11/23/19 11/23/19 11/23/19 11/23/19 09:50 09:55 10:00 10:10 Temp 36.4 Resp 13 16 15 B/P (MAP) 149/86 (107) 182/88 (119) 162/92 (115) Pulse Ox 97 98 93 O2 Delivery OxyMask OxyMask OxyMask OxyMask O2 Flow Rate 5 5 5 2 11/23/19 11/23/19 11/23/19 11/23/19 10:10 10:20 10:20 11:00 Temp 36.2 Pulse 64 Resp 19 20 B/P (MAP) 153/96 (115) 166/74 (104) Pulse Ox 93 93 O2 Delivery OxyMask Room Air Room Air Room Air O2 Flow Rate 2 11/23/19 15:05 O2 Delivery Room Air Capillary Refill : Less Than 3 SecondsLess Than 3 Seconds General Appearance: WD/WN, no apparent distress HEENT: PERRL/EOMI Neck: non-tender, full range of motion, supple Respiratory: chest non-tender, no respiratory distress, no accessory muscle use, wheezing (End Exp wheezing, normal work of breathing) Cardiovascular: normal peripheral pulses, regular rate, rhythm, no murmur Gastrointestinal: normal bowel sounds, non tender, soft, no organomegaly Back: no CVA tenderness, no vertebral tenderness Extremities: other (compression stockings present) Neurologic/Psychiatric: diamond saw operator II-XII nml as tested, no motor/sensory deficits, alert, normal mood/affect, oriented x 3 Skin: normal color, warm/dry Lymphatic: no adenopathy Assessment/Plan Assessment/Plan (1) Osteoarthritis of left knee Status: Chronic Assessment & Plan: - Left Total knee today by Dr Eller Qualifiers: Qualified Codes: M17.12 - Unilateral primary osteoarthritis, left knee (2) HTN (hypertension) Status: Chronic Assessment & Plan: - Continue home meds Qualifiers: Qualified Codes: I10 - Essential (primary) hypertension (3) HLD (hyperlipidemia) Status: Chronic (4) COPD (chronic obstructive pulmonary disease) Status: Chronic Assessment & Plan: - Discussed the importance of cessation, MAT protocol, encourage IS Qualifiers: Qualified Codes: J42 - Unspecified chronic bronchitis (5) DVT prophylaxis Status: Acute Assessment & Plan: - Lovenox Clinical Quality Measures DVT/VTE Risk/Contraindication: Risk Factor Score Per Nursin RFS Level Per Nursing on Admit: 4+=Very High CANDACE SIERRA MD Nov 23, 2019 15:21
[2019-11-23] MEDS: CEFUROXIME INJECTION 750 MG in WATER (STERILE) FOR INJECTION 10 ML IV SCH (18:21)
[2019-11-23] MEDS ORDERED: NON-FORMULARY MEDICATION 1 EA EA (Metoprolol Tartrate 100 MG) PO SCH (21:00)
[2019-11-23] MEDS: meTOprolol TARTRATE 50 MG (LOPRESSOR) TAB PO SCH (21:21)
[2019-11-23] MEDS: DULoxetine 30 MG (CYMBALTA) CAP PO SCH (21:21)
[2019-11-24] MEDS: NS IV 1000 ML 1,000 ML IV SCH ×3 (00:22→20:19)
[2019-11-24] MEDS: CEFUROXIME INJECTION 750 MG in WATER (STERILE) FOR INJECTION 10 ML IV SCH (00:23)
[2019-11-24] MEDS: oxyCODONE/APAP 5/325MG (PERCOCET 5) TABLET PO PRN ×5 (01:55→20:18)
[2019-11-24 04:25] VITALS: BP 133/85
[2019-11-24] MEDS: MULTIVIT W/MINERALS TAB (THERAGRAN M) PO SCH (05:50)
[2019-11-24 06:07] LABS: HEMOGLOBIN 12.7 G/DL (13.3-17.7)
[2019-11-24] MEDS: DULoxetine 30 MG (CYMBALTA) CAP PO SCH ×2 (07:53→20:18)
[2019-11-24] MEDS: meTOprolol TARTRATE 50 MG (LOPRESSOR) TAB PO SCH ×2 (07:53→20:18)
[2019-11-24] MEDS: ASPIRIN E.C. 81 MG (ECOTRIN) TAB PO SCH (07:53)
[2019-11-24] MEDS: amLODIPine 10 MG (NORVASC) TAB PO SCH (07:53)
[2019-11-24] MEDS: ENOXAPARIN 30 MG/0.3 ML (LOVENOX) SYR SC SCH ×2 (07:54→20:17)
--- NOTE | 2019-11-24 08:03 | Progress Note ---
Standard Progress Note Progress Notes/Assess & Plan Date Seen by a Provider: Nov 24, 2019 Time Seen by a Provider: 08:02 Progress/Assessment & Plan post op check no complaints Radiographs--HW well positioned without fracture LLE--brisk cap refill with 1 plus DP pulse. Intact sensation to light touch throughout. intact DF and PF of toes and ankles s/p LTKA mobilize as able Final Diagnosis no complaints Vital Signs Date Time Temp Pulse Resp B/P (MAP) Pulse Ox O2 Delivery O2 Flow Rate FiO2 11/24/19 04:25 37.2 90 20 133/85 (101) 93 Room Air 11/23/19 23:45 37.3 88 16 132/73 (92) 95 Room Air 11/23/19 21:30 Room Air 11/23/19 20:10 36.8 70 18 163/74 (103) 96 Room Air 11/23/19 16:00 36.4 74 20 107/68 (81) 97 Room Air 11/23/19 15:05 Room Air 11/23/19 11:00 36.2 64 20 166/74 (104) 93 Room Air 11/23/19 10:20 Room Air 11/23/19 10:20 19 153/96 (115) 93 Room Air 11/23/19 10:10 OxyMask 2 11/23/19 10:10 36.4 15 162/92 (115) 93 OxyMask 2 11/23/19 10:00 16 182/88 (119) 98 OxyMask 5 11/23/19 09:55 OxyMask 11/23/19 09:50 13 149/86 (107) 97 OxyMask 11/23/19 09:40 11 150/85 (106) 94 OxyMask 11/23/19 09:40 OxyMask 11/23/19 09:30 11 137/82 (100) 94 OxyMask 11/23/19 09:25 OxyMask 11/23/19 09:25 36.1 14 140/82 (101) 94 OxyMask 11/23/19 09:00 Room Air I & O 11/24/19 07:00 Intake Total 6945 ml Output Total 2475 ml Balance 4470 ml Laboratory Tests Test 11/24/19 05:41 Range/Units Hemoglobin 12.7 L 13.3-17.7 G/DL Hematocrit 37 L 40-54 % LLE--dressing intact. NVI distally. no calf tenderness. Able to perform SLR. flexion to 90 s/p :LTKA doing well PT/OT today VICKY WEATHERS MD Nov 24, 2019 08:03
[2019-11-24 08:09] VITALS: BP 160/84
[2019-11-24] MEDS: morphine INJ 4 MG/ML 1 ML (VIAL/SYRINGE) IVP PRN ×3 (08:12→15:57)
[2019-11-24] MEDS: GABAPENTIN 300 MG (NEURONTIN) CAP PO SCH ×4 (08:12→20:18)
[2019-11-24] MEDS ORDERED: NICOTINE 21 MG (NICODERM) PATCH TD SCH (09:00)
--- NOTE | 2019-11-24 09:07 | NUR ---
IRF Evaluation Determination: Denied Explanation: Order received to evaluate patient for the ARU. Chart review complete and it appears patient is ambulating (300ft, FWW) and transferring with supervision, as well as completing bed mobility with independence; therefore, patient does not require intensive therapies. Thank you for this referral.
--- NOTE | 2019-11-24 09:45 | Physical Therapy Daily Note ---
PT Daily Note-Current Subjective Patient agrees to PT. Rated left knee pain 9/10 with meds issued. Pain Numeric Pain Scale: 9 Location: Left Location Body Site: Knee Pain Description: Acute Mental Status Patient Orientation: Normal For Age Transfers SCALE: Activities may be completed with or without assistive devices. 6-Ffhdzmpqnz-ddducid completes the activity by him/herself with no assistance from a helper. 5-Set-up or Clean-up Assistance-helper sets up or cleans up; patient completes activity. [place] assists only prior to or following the activity. 4-Supervision or Touching Assistance-helper provides verbal cues and/or touching/steadying and/or contact guard assistance as patient completes activity. Assistance may be provided throughout the activity or intermittently. 3-Partial/Moderate Assistance-helper does LESS THAN HALF the effort. [place] lifts, holds or supports trunk or limbs, but provides less than half the effort. 2-Substantial/Maximal Assistance-helper does MORE THAN HALF the effort. [place] lifts or holds trunk or limbs and provides more than half the effort. 3-Aakgjncnd-jokfiz does ALL the effort. Patient does none of the effort to complete the activity. Or, the assistance of 2 or more helpers is required for the patient to complete the activity. If activity was not attempted, code reason: 7-Patient Refused. 9-Not Applicable-not attempted and the patient did not perform the activity b efore the current illness, exacerbation or injury. 10-Not Attempted due to Environmental Limitations-(lack of equipment, weather restraints, etc.). 88-Not Attempted due to Medical Conditions or Safety Concerns. Roll Left & Right (QC): 6 Sit to Lying (QC): 6 Lying to Sitting/Side of Bed(Q: 6 Sit to Stand (QC): 6 Chair/Knz-hb-Jvrst Xfer(QC): 6 Weight Bearing Left Lower Extremity: Left Weight Bearing/Tolerated Gait Training Does the Patient Walk?: Yes Distance: 400' Walk 10 feet (QC): 6 Walk 50 ft with 2 Turns(QC): 6 Walk 150 ft (QC): 6 Gait Assistive Device: FWW slightly antalgic, reciprocal pattern Exercises Supine Ex: Ankle pumps, Quad Set, Heel Slides, Straight leg raise Supine Reps: 15 Seated Therapy Exercises: Ankle pumps, Long arc quads Seated Reps: 15 Assessment Patient tolerated treatment well and has been instructed to ambulate PRN in hallway with mask on. RN notified. Patient will dismiss to home in a.m. PT Detention Goals Presiding Steward Goals PT Detention Goals Time Frame: Nov 30, 2019 Roll Left & Right (QC): 6 Sit to Lying (QC): 6 Lying-Sitting on Side/Bed(QC): 6 Sit to Stand (QC): 6 Chair/Xji-ax-Avhel Xfer(QC): 6 Walk 10 feet (QC): 6 Walk 50ft with 2 Turns (QC): 6 Walk 150 ft (QC): 6 1 Step (curb) (QC): 4 4 Steps (QC): 4 12 Steps (QC): 4 PT Plan Treatment/Plan Treatment Plan: Continue Plan of Care Treatment Plan: Bed Mobility, Education, Functional Activity Jody, Functional Strength, Gait, Safety, Therapeutic Exercise, Transfers Treatment Duration: Nov 30, 2019 Frequency: 11 times per week Estimated Hrs Per Day: .25 hour per day Patient and/or Family Agrees t: Yes Time/GCodes Time In: 810 Time Out: 833 Total Billed Treatment Time: 23 Total Billed Treatment 1 visit EX 13 min GT 10 min LUCIA ROSA PT Nov 24, 2019 09:45
[2019-11-24] MEDS: SENNA W/DOCUSATE (SENOKOT S) TABLET PO SCH ×2 (10:12→20:20)
--- NOTE | 2019-11-24 10:27 | NUR ---
CM/SS visited with the patient for social service consult. Plan: The patient will discharge to home with home health. Home Health: The patient was provided with a patient preference form. He stated that he would like to use the same agency as his previous procedure. CM/SS contacted [facility] form [facility] to make referral. This sw faxed referral form. They plan to start care on Thursday. Walker: The patient is set up with a front wheeled walker that he bought second hand. He stated he has a back up walker as well. Summary: The patient states that he is currently living with his who will help with any assistance that is needed. He has not worked for many years due to being disabled. The patient verbalized his is also disabled and they are both receiving Social Security Disability $1,040 a month between the two of them. No further needs at this time.
[2019-11-24 11:41] VITALS: BP 151/77
--- NOTE | 2019-11-24 13:22 | Physical Therapy Daily Note ---
PT Daily Note-Current Subjective Patient had just returned from a walk and agrees to exercises. Pain Numeric Pain Scale: 5-Moderate Pain Location: Left Location Body Site: Knee Pain Description: Acute Mental Status Attachments: [place] Transfers SCALE: Activities may be completed with or without assistive devices. 5-Euvvogimgo-ednqyjd completes the activity by him/herself with no assistance from a helper. 5-Set-up or Clean-up Assistance-helper sets up or cleans up; patient completes activity. [place] assists only prior to or following the activity. 4-Supervision or Touching Assistance-helper provides verbal cues and/or touching/steadying and/or contact guard assistance as patient completes activity. Assistance may be provided throughout the activity or intermittently. 3-Partial/Moderate Assistance-helper does LESS THAN HALF the effort. [place] lifts, holds or supports trunk or limbs, but provides less than half the effort. 2-Substantial/Maximal Assistance-helper does MORE THAN HALF the effort. [place] lifts or holds trunk or limbs and provides more than half the effort. 3-Muruvbqfy-neulla does ALL the effort. Patient does none of the effort to complete the activity. Or, the assistance of 2 or more helpers is required for the patient to complete the activity. If activity was not attempted, code reason: 7-Patient Refused. 9-Not Applicable-not attempted and the patient did not perform the activity bef ore the current illness, exacerbation or injury. 10-Not Attempted due to Environmental Limitations-(lack of equipment, weather r estraints, etc.). 88-Not Attempted due to Medical Conditions or Safety Concerns. Weight Bearing Left Lower Extremity: Left Weight Bearing/Tolerated Exercises Supine Ex: Ankle pumps, Quad Set, Heel Slides, Straight leg raise Supine Reps: 15 (2 sets) Assessment Patient is anxious to go home. Patient reports he took a shower on this date. Patient will dismiss to home in a.m. PT Journeyman Mechanic Goals Correction Goals PT Correction Goals Time Frame: Nov 30, 2019 Roll Left & Right (QC): 6 Sit to Lying (QC): 6 Lying-Sitting on Side/Bed(QC): 6 Sit to Stand (QC): 6 Chair/Yma-gq-Epdbf Xfer(QC): 6 Walk 10 feet (QC): 6 Walk 50ft with 2 Turns (QC): 6 Walk 150 ft (QC): 6 1 Step (curb) (QC): 4 4 Steps (QC): 4 12 Steps (QC): 4 PT Plan Treatment/Plan Treatment Plan: Continue Plan of Care Treatment Plan: Bed Mobility, Education, Functional Activity Jody, Functional Strength, Gait, Safety, Therapeutic Exercise, Transfers Treatment Duration: Nov 30, 2019 Frequency: 11 times per week Estimated Hrs Per Day: .25 hour per day Patient and/or Family Agrees t: Yes Time/GCodes Time In: 1255 Time Out: 1309 Total Billed Treatment Time: 14 Total Billed Treatment 1 visit EX 14 min LUCIA ROSA PT Nov 24, 2019 13:22
--- NOTE | 2019-11-24 14:23 | Anesthesia-General Post-Op ---
General Patient Condition Mental Status/LOC: Same as Preop Cardiovascular: Satisfactory Nausea/Vomiting: Absent Respiratory: Satisfactory Pain: Controlled Complications: Absent Post Op Complications Complications None Follow Up Care/Instructions Patient Instructions None needed. Anesthesia/Patient Condition Patient Condition Patient is doing well, no complaints, stable vital signs, no apparent adverse anesthesia problems. Pain was well controlled throughout the night secondary to his nerve blocks. Starting to have some pain as blocks wear off but not out of control. No complications noted. SOFÍA KAPLAN DO Nov 24, 2019 14:23
--- NOTE | 2019-11-24 14:33 | Occupational Therapy Eval ---
OT Evaluation-General/PLF Medical Diagnosis Admission Date Nov 23, 2019 at 06:10 Medical Diagnosis: left TKA Onset Date: Nov 23, 2019 Therapy Diagnosis Therapy Diagnosis: decreased ADL status Height/Weight Height (Feet): 5 Height (Inches): 11.00 Weight (Pounds): 218 Weight (Ounces): 8.0 Precautions Precautions/Isolations: Fall Prevention, Standard Precautions Weight Bear Status Weight Bearing Restriction: Weight Bearing/Tolerated Location Restriction: L LE Referral Physician: Kingsley Referral Reason: Evaluation/Treatment Medical History Pertinent Medical History: COPD, HTN, OA Additional Medical History chronic back pain, carotid disease, abdominal hernia, chronic pain syndrome, anxiety, fibromyalgia, R TKA Current History s/p L TKA Social History Home: Multilevel Current Living Status: Spouse Entry Into Home: Level Entry ADL-Prior Level of Function SCALE: Activities may be completed with or without assistive devices. 3-Yojwbrundp-ethobis completes the activity by him/herself with no assistance from a helper. 5-Set-up or Clean-up Assistance-helper sets up or cleans up; patient completes activity. [place] assists only prior to or following the activity. 4-Supervision or Touching Assistance-helper provides verbal cues and/or touching/steadying and/or contact guard assistance as patient completes activity. Assistance may be provided throughout the activity or intermittently. 3-Partial/Moderate Assistance-helper does LESS THAN HALF the effort. [place] lifts, holds or supports trunk or limbs, but provides less than half the effort. 2-Substantial/Maximal Assistance-helper does MORE THAN HALF the effort. [place] lifts or holds trunk or limbs and provides more than half the effort. 0-Yyhvgnier-spfepp does ALL the effort. Patient does none of the effort to complete the activity. Or, the assistance of 2 or more helpers is required for the patient to complete the activity. If activity was not attempted, code reason: 7-Patient Refused. 9-Not Applicable-not attempted and the patient did not perform the activity before the current illness, exacerbation or injury. 10-Not Attempted due to Environmental Limitations-(lack of equipment, weather restraints, etc.). 88-Not Attempted due to Medical Conditions or Safety Concerns. ADL PLOF Comments Pt lives in a multilevel house with his , he has to go upstairs to sleep. He does have a bathroom on the main floor he is able to use. He reports having assistance from his family for cooking, cleaning, shopping and bills but he is able to dress and shower by himself most of the time. His was present and reports if he needs slight assistance with dressing/showering she is able to provide it for him. He was independent at [facility] for functional mobility with no AD. He has a walk-in shower with a built in shower bench and grab bars. Self Care: Needed Some Help Functional Cognition: Independent DME/Equipment: Bath Bench, Grab Bars, Shower OT Current Status Subjective Pt heading back to bed from restroom, agreeable to OT evaluation. He does not verbalize any pain during tx. present during tx. Mental Status/Objective Patient Orientation: Person, Place, Time, Situation Current Glasses/Contacts: Yes Hand Dominance: Right Upper Extremity ROM WFL Upper Extremity Coordination WFL Upper Extremity Sensation pt reports constant tingling/numbness BUEs due to neck problems, and numbness in legs due to his back. Upper Extremity Strength grossly 4+/5 MMT BUEs ADL-Treatment On/Off Footwear (QC): 6 (Pt donned/doffed gripper socks seated EOB, no LOB.) Toileting Hygiene (QC): 6 (Pt walking out of bathroom using FWW at start of session, stating he did not require any assistance and was able to complete all parts.) Other Treatments Pt returning to bed from bathroom at start of session. Pt sat EOB, OT educated pt/ on benefits/purpose of OT tx, they verbalized understanding. Pt and provide information about PLOF and home set up, stating they do not have any concerns with pt returning home after d/c. Pt reports he was able to complete toileting without difficulty. He then participated in UE screen. Pt doffed/donned gripper socks seated EOB, no LOB noted and no difficulty reported. Pt and report they have no concerns with pt returning home and feel like he does not need any further OT Txs. Post OT session, pt seated EOB with present, all needs met and call light in reach. Education OT Patient Education: Correct positioning, Energy conservation, Modified ADL techniques, Progress toward Goal/Update tx plan, Purpose of tx/functional activities, Safety issues, Transfer techniques Teaching Recipient: Patient Teaching Methods: Discussion Response to Teaching: Verbalize Understanding OT Import And Export Clerk Goals [facility] Goals 1=Demonstrate adherence to instructed precautions during ADL tasks. 2=Patient will verbalize/demonstrate understanding of assistive devices/modifications for ADL. 3=Patient will improve strength/tolerance for activity to enable patient to perform ADL's. OT Education/Plan Problem List/Assessment Assessment: No Skilled OT Needs ID'd Pt independent with footwear and toileting at evaluation, pt and report no concerns with ADLs with pt returning home. Pt and indicate no further OT services required. No skilled OT services are indicated at this time due to pt's functional level at evaluation, pt reporting he has no concerns with returning home, and pt declining further OT services. D/C from OT. Discharge Recommendations Plan/Recommendations: Discharge/Goals Met Treatment Plan/Plan of Care Patient would benefit from OT for education, treatment and training to promote independence in ADL's, mobility, safety and/or upper extremity function for ADL's. Plan of Care: ADL Retraining Treatment Duration: Nov 24, 2019 Frequency: 1 time per week (eval only) Rehab Potential: Fair Time/GCodes Start Time: 13:50 Stop Time: 14:02 Total Time Billed (hr/min): 12 Billed Treatment Time 1WALTER ADDISON OT Nov 24, 2019 14:33
--- NOTE | 2019-11-24 15:36 | Progress Note ---
Subjective Subjective/Events-last exam Doing well this AM. Up with PT this AM. Tolerating PO diet. Review of Systems Pulmonary: No Dyspnea, No Cough Cardiovascular: No: Chest Pain, Palpitations Musculoskeletal: leg pain Neurological: Incoordination; No: Confusion Objective Exam Last Set of Vital Signs Vital Signs Date Time Temp Pulse Resp B/P (MAP) Pulse Ox O2 Delivery O2 Flow Rate FiO2 11/24/19 11:41 36.8 78 20 151/77 (101) 97 Room Air 11/23/19 10:10 2 Capillary Refill : Less Than 3 SecondsLess Than 3 Seconds I&O Intake and Output 11/24/19 00:00 Intake Total 5845 ml Output Total 1600 ml Balance 4245 ml Intake Oral 2830 ml IV Total 3015 ml Output Urine Total 1600 ml # Voids 3 Daily Weight Change No General: Alert, Oriented X3, Cooperative, No Acute Distress HEENT: Mucous Memb Moist/[place] Lungs: Clear to Auscultation, Normal Air Movement Heart: Regular Rate, No Murmurs Abdomen: Normal Bowel Sounds, Soft, No Tenderness, No Masses Extremities: Other (compression stocking present bilaterally) Neuro: Normal Speech, Sensation Intact, Cranial Nerves 3-12 NL Results/Procedures Lab Laboratory Tests 11/24/19 05:41: Hemoglobin 12.7L, Hematocrit 37L Assessment/Plan Assessment/Plan (1) Osteoarthritis of left knee Status: Chronic Assessment & Plan: - Left Total knee today by Dr Eller 11/23: POD#1 Qualifiers: Qualified Codes: M17.12 - Unilateral primary osteoarthritis, left knee (2) HTN (hypertension) Status: Chronic Assessment & Plan: - Continue home meds Qualifiers: Qualified Codes: I10 - Essential (primary) hypertension (3) HLD (hyperlipidemia) Status: Chronic (4) COPD (chronic obstructive pulmonary disease) Status: Chronic Assessment & Plan: - Discussed the importance of cessation, MAT protocol, encourage IS Qualifiers: Qualified Codes: J42 - Unspecified chronic bronchitis (5) DVT prophylaxis Status: Acute Assessment & Plan: - Lovenox Clinical Quality Measures DVT/VTE Risk/Contraindication: Risk Factor Score Per Nursin RFS Level Per Nursing on Admit: 4+=Very High CANDACE SIERRA MD Nov 24, 2019 15:36
[2019-11-24 15:57] VITALS: BP 178/85
[2019-11-24 19:54] VITALS: BP 187/85
[2019-11-24] MEDS: CATHETER FLUSH 10 ML SYR IV SCH (20:20)
[2019-11-25] VITALS: BP 176/78
[2019-11-25] MEDS: oxyCODONE/APAP 5/325MG (PERCOCET 5) TABLET PO PRN ×2 (02:15→06:19)
[2019-11-25 04:00] VITALS: BP 161/72
[2019-11-25] MEDS: MULTIVIT W/MINERALS TAB (THERAGRAN M) PO SCH (06:18)
[2019-11-25] MEDS: CATHETER FLUSH 10 ML SYR IV SCH ×2 (06:19→08:16)
[2019-11-25 06:22] LABS: HEMOGLOBIN 11.7 G/DL (13.3-17.7)
--- NOTE | 2019-11-25 06:58 | Progress Note ---
Standard Progress Note Progress Notes/Assess & Plan Date Seen by a Provider: Nov 25, 2019 Time Seen by a Provider: 06:57 Progress/Assessment & Plan post op check no complaints Radiographs--HW well positioned without fracture LLE--brisk cap refill with 1 plus DP pulse. Intact sensation to light touch throughout. intact DF and PF of toes and ankles s/p LTKA mobilize as able Final Diagnosis no complaints Vital Signs Date Time Temp Pulse Resp B/P (MAP) Pulse Ox O2 Delivery O2 Flow Rate FiO2 11/25/19 04:00 36.4 78 21 161/72 (101) 93 Room Air 11/25/19 00:00 36.8 73 20 176/78 (110) 96 Room Air 11/24/19 21:00 Room Air 11/24/19 19:54 37.0 72 18 187/85 (119) 97 Room Air 11/24/19 15:57 37.4 80 18 178/85 (116) 96 Room Air 11/24/19 11:41 36.8 78 20 151/77 (101) 97 Room Air 11/24/19 09:00 Room Air 11/24/19 08:09 37.4 89 20 160/84 (109) 98 Room Air I & O 11/25/19 07:00 Intake Total 3960 ml Balance 3960 ml Laboratory Tests Test 11/25/19 06:05 Range/Units Hemoglobin 11.7 L 13.3-17.7 G/DL Hematocrit 34 L 40-54 % LLE--incision clean and dry. No calf tenderness. Able to perform SLR s/p LTKA doing well DC home today VICKY WEATHERS MD Nov 25, 2019 06:58
[2019-11-25 08:00] VITALS: BP 150/79
[2019-11-25] MEDS: amLODIPine 10 MG (NORVASC) TAB PO SCH (08:08)
[2019-11-25] MEDS: meTOprolol TARTRATE 50 MG (LOPRESSOR) TAB PO SCH (08:08)
[2019-11-25] MEDS: GABAPENTIN 300 MG (NEURONTIN) CAP PO SCH (08:08)
[2019-11-25] MEDS: ASPIRIN E.C. 81 MG (ECOTRIN) TAB PO SCH (08:09)
[2019-11-25] MEDS: DULoxetine 30 MG (CYMBALTA) CAP PO SCH (08:09)
[2019-11-25] MEDS: ENOXAPARIN 30 MG/0.3 ML (LOVENOX) SYR SC SCH (08:09)
[2019-11-25] MEDS: SENNA W/DOCUSATE (SENOKOT S) TABLET PO SCH (08:10)
--- NOTE | 2019-11-25 08:10 | DISCHARGE SUMMARY ---
DATE OF SERVICE: DIAGNOSES: 1. Left knee primary osteoarthritis. 2. Hyperlipidemia. 3. Hypertension. 4. Chronic back pain. 5. Chronic obstructive pulmonary disease. 6. Carotid disease. 7. Fibromyalgia. 8. Anxiety disorder. 9. Abdominal hernia. PROCEDURE PERFORMED: Left total knee arthroplasty. SUMMARY: The patient is a 58-year-old gentleman, who underwent a left total knee arthroplasty on the date of admission. Postoperatively, he did well. At the time of discharge, his wound was clean and dry and had no calf tenderness. Negative Homans sign. He cleared physical therapy, was tolerating diet well and tolerating the pain with oral pain medication. CONDITION AT DISCHARGE: Good. DISCHARGE DIET: Regular. FOLLOWUP: Followup is in three weeks. ACTIVITIES: Weightbearing as tolerated with assistive devices as needed. Home physical therapy has been arranged. DISCHARGE MEDICATIONS: Home medications, aspirin one per day for 30 days and Percocet as needed for pain. Job ID: [id number] DocumentID: [id number] Dictated Date: 11/24/2019 15:19:30 [employer] Date: 11/25/2019 08:10:05 Dictated By: VICKY WEATHERS MD
[2019-11-25] MEDS: morphine INJ 4 MG/ML 1 ML (VIAL/SYRINGE) IVP PRN (08:16)
--- NOTE | 2019-11-25 08:47 | Physical Therapy Daily Note ---
PT Daily Note-Current Subjective Patient in room pre tx, agrees to PT, has 5/10 pain in knee. Patient is discharging from this facility this morning, patient states his is actually on the way and should be here any time, agrees to a quick walk. Appearance Patient in room post tx, he is ambulating independently using a rolling walker. Mental Status Patient Orientation: Normal For Age Transfers SCALE: Activities may be completed with or without assistive devices. 8-Gbqwmfuqod-uqogkqf completes the activity by him/herself with no assistance from a helper. 5-Set-up or Clean-up Assistance-helper sets up or cleans up; patient completes a ctivity. [place] assists only prior to or following the activity. 4-Supervision or Touching Assistance-helper provides verbal cues and/or touching/steadying and/or contact guard assistance as patient completes activity. Assistance may be provided throughout the activity or intermittently. 3-Partial/Moderate Assistance-helper does LESS THAN HALF the effort. [place] lifts, holds or supports trunk or limbs, but provides less than half the effort. 2-Substantial/Maximal Assistance-helper does MORE THAN HALF the effort. [place] lifts or holds trunk or limbs and provides more than half the effort. 0-Ezuxnlcwd-cxtiol does ALL the effort. Patient does none of the effort to complete the activity. Or, the assistance of 2 or more helpers is required for the patient to complete the activity. If activity was not attempted, code reason: 7-Patient Refused. 9-Not Applicable-not attempted and the patient did not perform the activity before the current illness, exacerbation or injury. 10-Not Attempted due to Environmental Limitations-(lack of equipment, weather restraints, etc.). 88-Not Attempted due to Medical Conditions or Safety Concerns. Weight Bearing Left Lower Extremity: Left Weight Bearing/Tolerated Gait Training Distance: 400' Walk 10 feet (QC): 6 Walk 50 ft with 2 Turns(QC): 6 Walk 150 ft (QC): 6 Gait Assistive Device: FWW brisk ambulation, good step through and heel strike, swelling in knee Treatments ambulation Assessment Current Status: Fair Progress patient is independent with functional mobility PT Core Microarchitect Goals Core Microarchitect Goals PT Core Microarchitect Goals Time Frame: Nov 30, 2019 Roll Left & Right (QC): 6 Sit to Lying (QC): 6 Lying-Sitting on Side/Bed(QC): 6 Sit to Stand (QC): 6 Chair/Irf-tf-Lgkdo Xfer(QC): 6 Walk 10 feet (QC): 6 Walk 50ft with 2 Turns (QC): 6 Walk 150 ft (QC): 6 1 Step (curb) (QC): 4 4 Steps (QC): 4 12 Steps (QC): 4 PT Plan Problem List Problem List: Activity Tolerance, Functional Strength, Safety, Balance, Gait Treatment/Plan Treatment Plan: Discontinue PT Treatment Plan: Bed Mobility, Education, Functional Activity Jody, Functional Strength, Gait, Safety, Therapeutic Exercise, Transfers Treatment Duration: Nov 30, 2019 Frequency: 11 times per week Estimated Hrs Per Day: .25 hour per day Patient and/or Family Agrees t: Yes Safety Risks/Education Patient Education: Gait Training, Correct Positioning, Safety Issues Teaching Recipient: Patient Teaching Methods: Demonstration, Discussion Response to Teaching: Reinforcement Needed Discharge Recommendations Plan discharge Time/GCodes Time In: 0830 Time Out: 0839 Total Billed Treatment Time: 9 Total Billed Treatment 1 visit GT 9' TAMRA WOMACK PT Nov 25, 2019 08:47
[2019-11-25] MEDS ORDERED: NICOTINE PATCH REMOVAL TP SCH (08:59)
--- NOTE | 2019-11-25 09:11 | Progress Note ---
Subjective Subjective/Events-last exam Patient doing well. Ready to go home. Walking around room. Review of Systems Pulmonary: No Dyspnea, No Cough Cardiovascular: No: Chest Pain, Palpitations Gastrointestinal: No: Nausea, Vomiting, Abdominal Pain Neurological: Weakness, Incoordination Objective Exam Last Set of Vital Signs Vital Signs Date Time Temp Pulse Resp B/P (MAP) Pulse Ox O2 Delivery O2 Flow Rate FiO2 11/25/19 04:00 36.4 78 21 161/72 (101) 93 Room Air 11/23/19 10:10 2 Capillary Refill : Less Than 3 SecondsLess Than 3 Seconds I&O Intake and Output 11/25/19 00:00 Intake Total 4860 ml Output Total 875 ml Balance 3985 ml Intake Oral 3850 ml IV Total 1010 ml Output Urine Total 875 ml # Voids 13 # Bowel Movements 3 General: Alert, Oriented X3, Cooperative, No Acute Distress Lungs: Clear to Auscultation, Normal Air Movement Heart: Regular Rate, No Murmurs Extremities: Other (compression stocking present) Results/Procedures Lab Laboratory Tests 11/25/19 06:05: Hemoglobin 11.7L, Hematocrit 34L Assessment/Plan Assessment/Plan (1) Osteoarthritis of left knee Status: Chronic Assessment & Plan: - Left Total knee today by Dr Eller 7/: POD#1 11/24: POD#2, plan for d/c with HH per Dr Eller, F/u with Phong Aguillon in 3 weeks for CHM Qualifiers: Qualified Codes: M17.12 - Unilateral primary osteoarthritis, left knee (2) HTN (hypertension) Status: Chronic Assessment & Plan: - Continue home meds Qualifiers: Qualified Codes: I10 - Essential (primary) hypertension (3) HLD (hyperlipidemia) Status: Chronic (4) COPD (chronic obstructive pulmonary disease) Status: Chronic Assessment & Plan: - Discussed the importance of cessation, MAT protocol, encourage IS Qualifiers: Qualified Codes: J42 - Unspecified chronic bronchitis (5) DVT prophylaxis Status: Acute Assessment & Plan: - Lovenox Clinical Quality Measures DVT/VTE Risk/Contraindication: Risk Factor Score Per Nursin RFS Level Per Nursing on Admit: 4+=Very High CANDACE SIERRA MD Nov 25, 2019 09:11
[2019-11-25 09:20] VITALS: BP 150/79
--- NOTE | 2019-11-25 09:20 | NUR ---
ANNAMARIA COLINDRES demonstrates understanding of discharge instructions and accurately returns instructions upon questioning. Copy of Post-Discharge Instructions given to PT. ANNAMARIA COLINDRES is able to manage continuing needs after discharge. Patients belongings returned to PT. Patient discharged from [facility] on 11/25/19 at 0920. ANNAMARIA COLINDRES left floor via W/C, accompanied by STAFF AND FAMILY PER AUTO.
[2019-11-25 09:33] VITALS: BP 150/79
--- NOTE | 2019-11-25 11:50 | NUR ---
CM/SS follow up. The patient is set up with [facility]. CM/SS informed the patient that they are set up and will start care Thursday the . No further needs.
== END 2019-11-25 09:20 | disposition home health service (06) | DRG 470 ==
LOC: 4TH 06:10 → SURG 06:11 → 4TH 10:20
PROVIDERS: ADMIT Orthopaedic Surgery; ATTEND Orthopaedic Surgery
PROC: 0SRD0J9 Replacement of Left Knee Joint with Synthetic Substitute, Cemented, Open Approach (ICD-10-PCS; principal; 2019-11-23 07:33)
DX: M17.12 Unilateral primary osteoarthritis, left knee (principal); I10 Essential (primary) hypertension; E78.5 Hyperlipidemia, unspecified; J44.9 Chronic obstructive pulmonary disease, unspecified; K21.9 Gastro-esophageal reflux disease without esophagitis; M06.9 Rheumatoid arthritis, unspecified; M79.7 Fibromyalgia; G62.9 Polyneuropathy, unspecified; G89.29 Other chronic pain; F41.9 Anxiety disorder, unspecified; F17.210 Nicotine dependence, cigarettes, uncomplicated; Z96.651 Presence of right artificial knee joint; K46.9 Unspecified abdominal hernia without obstruction or gangrene; M54.9 Dorsalgia, unspecified
CPT/HCPCS: 36415; 73560; 85014; 85018; 86850; 86900; 86901; 94664

== ENCOUNTER → 2019-11-30 | Outpatient (CLI) | payer MEDICAID ==
--- NOTE | 2019-11-30 12:37 | Diagnostic Imaging Report ---
EXAMINATION: CT Chest without contrast (lung screening). TECHNIQUE: Multiple contiguous axial images were obtained through the chest without the use of intravenous contrast according to lung cancer screening protocol. All CT scans use one or more of the following dose optimizing techniques: automated exposure control, MA and/or KvP adjustment based on a patient size and exam type, or iterative reconstruction. HISTORY: 50 pack year history of smoking. COMPARISON: None available. FINDINGS: There is no edema or pneumonia. No pleural effusion. No pneumothorax. There is a 5 mm average diameter left lower lobe pulmonary nodule (series 2, image 147). Small amount of mucus is seen in the left mainstem bronchus. Heart size is normal. There are mild coronary artery calcifications. No pericardial effusion. Aorta is normal in caliber. There is no axillary or supraclavicular lymphadenopathy. There is no mediastinal lymphadenopathy. Limited views of the upper abdomen show what is likely upper pole renal cyst, incompletely imaged. There are no suspicious osseus lesions. IMPRESSION: 1. Left lower lobe 5 mm average diameter pulmonary nodule. Continued annual screening is recommended. LUNG-RADS CATEGORY: 2 MODIFIER: None. Dictated by: Dictated on workstation # [id number]
== END ==
LOC: RAD 12:45
PROVIDERS: ATTEND Internal Medicine Critical Care Medicine
DX: Z12.2 Encounter for screening for malignant neoplasm of respiratory organs (principal); R91.1 Solitary pulmonary nodule; F17.200 Nicotine dependence, unspecified, uncomplicated

== ENCOUNTER → 2020-01-06 | Outpatient (CLI) | payer MEDICAID | LOC: LABNPT 06:44 | PROVIDERS: ATTEND Nurse Practitioner Family | DX: Z01.812 Encounter for preprocedural laboratory examination (principal); Z20.828 Contact with and (suspected) exposure to other viral communicable diseases | CPT/HCPCS: 87635 ==

== ENCOUNTER 2020-01-09 19:46 | Outpatient (CLI) | payer MEDICAID | END 2020-01-10 06:00 | disposition home or self-care (01) | LOC: SLEEP 19:46 | PROVIDERS: ATTEND Internal Medicine Critical Care Medicine | DX: Z01.812 Encounter for preprocedural laboratory examination (principal); G47.19 Other hypersomnia | CPT/HCPCS: 95810 ==

== ENCOUNTER → 2020-06-22 | Outpatient (CLI) | payer MEDICAID ==
[~2020-06-22] MED LIST changes: +ASPI-1238 PO; -ASPI-983 PO; +CATHETER FLUSH 10 ML SYR IV PRN; +HOLD METFORMIN - RECEIVED CONTRAST 20 ML VIAL IV SCH; +IOHEXOL 350 MG/ML 100 ML (OMNIPAQUE 350) VIAL IV ONE; -MONT10TA26 PO; +MONT10TA97 PO; +NS 100 ML (IVPB) BAG IV ONE
[2020-06-22 13:31] LABS: BUN/CREATININE RATIO 12; CREATININE SERUM 1.05 MG/DL (0.60-1.30); GFR ESTIMATED > 60
--- NOTE | 2020-06-22 14:38 | Diagnostic Imaging Report ---
EXAMINATION: CT Chest with intravenous contrast. TECHNIQUE: Multiple contiguous axial images were obtained through the chest after the uneventful administration of intravenous contrast. All CT scans use one or more of the following dose optimizing techniques: automated exposure control, MA and/or KvP adjustment based on a patient size and exam type, or iterative reconstruction. HISTORY: COPD COMPARISON: 11/30/2019. FINDINGS: There is no edema or pneumonia. No pleural effusion. No pneumothorax. There is a stable 5 mm left lower lobe pulmonary nodule. There is no axillary or supraclavicular lymphadenopathy. There is no mediastinal lymphadenopathy. Heart size is normal. There are mild coronary artery calcifications. No pericardial effusion. Aorta is normal in caliber. Limited views of the upper abdomen are unremarkable. There are no suspicious osseous lesions. IMPRESSION: 1. No acute abnormality in the chest. Stable 5 mm left lower lobe pulmonary nodule which should continue to be followed on lung cancer screening which is due in November 2020. Dictated by: Dictated on workstation # [id number]
== END ==
LOC: RAD 13:45
PROVIDERS: ATTEND Nurse Practitioner Family
DX: J44.9 Chronic obstructive pulmonary disease, unspecified (principal); R91.1 Solitary pulmonary nodule
CPT/HCPCS: 36415; 71260; 82565; 84520

== ENCOUNTER → 2020-11-23 | Outpatient (CLI) | payer MEDICAID ==
[~2020-11-23] MED LIST changes: -CATHETER FLUSH 10 ML SYR IV PRN; +MONT10TA32 PO; -MONT10TA97 PO; -OXYC-471 PO; +OXYC1TAB11 PO; +RT-ALBUTEROL SULF 2.5 MG/3 ML PRE-MIX VIAL INH ONE
[2020-11-23 09:00] LABS: CREATININE SERUM 1.29 MG/DL (0.60-1.30)
[2020-11-23] MEDS: CATHETER FLUSH 10 ML SYR IV PRN ×2 (09:47→09:49)
--- NOTE | 2020-11-23 11:28 | Diagnostic Imaging Report ---
PROCEDURE: CT chest with contrast only. TECHNIQUE: Multiple contiguous axial images were obtained through the chest after administration of intravenous contrast. Auto Exposure Controls were utilized during the CT exam to meet ALARA standards for radiation dose reduction. INDICATION: Abnormal findings of the lungs. COMPARISON: 06/22/2020 and 11/30/2019. FINDINGS: No significant adenopathy within the chest. Mild scattered vascular calcifications within the thoracic aorta and its branch vessels, including within the coronary arteries. No aneurysmal dilatation of the thoracic aorta. The heart is within normal limits in size. No pericardial effusion. No pleural effusion. The trachea is patent. No pneumothorax. Subpleural 0.3 cm left upper lobe pulmonary nodule, series 3, image 49, is stable from the prior exams. 0.5 cm pleural-based left lower lobe pulmonary nodule is unchanged since November 2019. 0.7 cm pleural-based solid left lower lobe pulmonary nodule, series 3, image 91, is unchanged from the prior exams. Calcified granuloma within the right upper lobe. Additional scattered tiny sub 0.4 cm bilateral pulmonary nodules are present, not significantly changed from the prior exams. No new suspicious pulmonary nodule. The trachea is patent. No significant hiatal hernia. Prominent left renal cyst. The partially visualized upper abdomen is otherwise unremarkable. Postsurgical changes within the cervical spine are partially visualized. Scattered osseous degenerative changes without acute osseous abnormality. IMPRESSION: No acute abnormality. Stable subcentimeter bilateral pulmonary nodules, not significantly changed since November 2019. No new suspicious pulmonary nodule. Additional findings as described above. Recommend a follow-up CT of the chest in one year to ensure stability of the bilateral pulmonary nodules. Dictated by: Dictated on workstation # [id number]
== END ==
LOC: RT 08:00
PROVIDERS: ATTEND Nurse Practitioner Family
DX: J45.909 Unspecified asthma, uncomplicated (principal); R91.8 Other nonspecific abnormal finding of lung field
CPT/HCPCS: 36415; 71260; 82565; 84520; 94060; 94726; 94729

== ENCOUNTER → 2021-06-28 | Outpatient (CLI) | payer MEDICAID ==
[~2021-06-28] MED LIST changes: -CETI10TA23 PO; +CETI10TA24 PO; +CYCL10TA25 PO; -CYCL10TA9 PO; -HOLD METFORMIN - RECEIVED CONTRAST 20 ML VIAL IV SCH; -IOHEXOL 350 MG/ML 100 ML (OMNIPAQUE 350) VIAL IV ONE; +MONT-40 PO; -MONT10TA32 PO; -NS 100 ML (IVPB) BAG IV ONE; -RT-ALBUTEROL SULF 2.5 MG/3 ML PRE-MIX VIAL INH ONE
--- NOTE | 2021-06-28 13:57 | Diagnostic Imaging Report ---
PROCEDURE: MR imaging cervical spine without contrast. TECHNIQUE: Multiplanar, multisequence MR imaging of the cervical spine was performed without contrast. INDICATION: Neuropathy enteritis FINDINGS: There are postsurgical changes of anterior cervical disc fusion from C5 through C7. The vertebral body heights are well-maintained. The prevertebral soft tissues are within normal limits. Posterior fossa is unremarkable. Visualized portions of spinal cord are normal in signal intensity and morphology. At C2-C3 there is some uncovertebral joint hypertrophy on the right with mild right neural foraminal encroachment. At C3-C4 there is bilateral uncovertebral joint hypertrophy with mild to moderate bilateral foraminal encroachment. At C4-C5 there is annular bulging and bilateral uncovertebral joint hypertrophy. There is mild to moderate spinal stenosis with at least moderate bilateral neural from encroachment. At C5-C6 there is right uncovertebral joint hypertrophy with moderate right neural foraminal encroachment. At C6-C7 bilateral uncovertebral hypertrophy with at least mild bilateral neural foraminal encroachment. At C7-T1 some annular bulging as well as some post facet arthropathy. There is mild to moderate spinal stenosis with mild bilateral neural foraminal encroachment. IMPRESSION: Postsurgical changes and degenerative changes in cervical spine as detailed above. Dictated by: Dictated on workstation # [id number]
== END ==
LOC: RAD 09:30
PROVIDERS: ATTEND Physician Assistant
DX: M50.121 Cervical disc disorder at C4-C5 level with radiculopathy (principal); M47.812 Spondylosis without myelopathy or radiculopathy, cervical region; M48.03 Spinal stenosis, cervicothoracic region; Z98.1 Arthrodesis status
CPT/HCPCS: 72141

== ENCOUNTER → 2021-11-29 | Outpatient (CLI) | payer MEDICAID ==
--- NOTE | 2021-11-29 18:10 | Diagnostic Imaging Report ---
CT Lung Screening INDICATION: Current smoker with a 50 pack year history. TECHNIQUE: Noncontrast, low-dose CT imaging performed according to lung cancer screening protocol. Auto Exposure Controls were utilized during the CT exam to meet ALARA standards for radiation dose reduction. COMPARISON: CT chest 11/30/2019-11/23/2020 FINDINGS: HEART/MEDIASTINUM: Heart size normal. Thoracic aortic contour unremarkable. A few shotty mediastinal lymph nodes are present. Minimal wall thickening low esophagus. LUNGS/MEASURED PULMONARY NODULES: -6 mm subpleural nodule lateral left lower lobe (image 136 series 2) , stable. -4 mm, perifissural base nodule super aspect left lower lobe (image 79 series 2), stable. -A few additional scattered micronodules are present within calcified granuloma. No definitive new or enlarging pulmonary mass. OTHER: Partial visualization left superior renal pole cyst. IMPRESSION: 1. Stable scattered small pulmonary nodules. No actionable lesion to suggest lung neoplasm. LUNG-RADS CATEGORY: 2 LUNG SCREENING MANAGEMENT/RECOMMENDATIONS: Continued annual screening with low dose CT in 12 months. Dictated by: Dictated on workstation # [id number]
== END ==
LOC: RAD 14:31
PROVIDERS: ATTEND Nurse Practitioner Family
DX: Z12.2 Encounter for screening for malignant neoplasm of respiratory organs (principal); R91.8 Other nonspecific abnormal finding of lung field
CPT/HCPCS: 71271

== ENCOUNTER → 2022-05-16 | Outpatient (CLI) | payer MEDICAID ==
[~2022-05-16] MED LIST changes: +ALBU8.5H6 IH; -RT-ALBUINH IH
--- NOTE | 2022-05-16 14:25 | Diagnostic Imaging Report ---
PROCEDURE: MR imaging cervical spine without contrast. TECHNIQUE: Multiplanar, multisequence MR imaging of the cervical spine was performed without contrast. INDICATION: Increasing neck pain. COMPARISON: 06/28/2021. FINDINGS: No acute fracture or dislocation is seen in the cervical spine. Postsurgical changes of ACDF are visualized from C5 through C7. Modic type II endplate degenerative changes are present at the C4-C5 level. The vertebral body heights are well maintained. No focal osseous lesions. The craniocervical junction is maintained. The cervical spinal cord demonstrates normal intrinsic signal. No epidural collections are seen. The included brainstem and posterior fossa have normal appearance. Multilevel degenerative changes are seen in the cervical spine with posterior disc bulges and uncovertebral arthropathy. C2-C3: Right subarticular disc bulge results in no significant spinal canal narrowing and moderate right and mild left foraminal narrowing. C3-C4: Left subarticular disc bulge and uncovertebral arthropathy results in mild spinal canal narrowing and mild right and moderate left foraminal stenosis. C4-C5: Posterior disc bulge, uncovertebral arthropathy and buckling of the ligamentum flavum results in moderate spinal canal stenosis and moderate bilateral foraminal stenosis. C5-C6: Uncovertebral arthropathy results in mild spinal canal narrowing and moderate right and rtnz-hs-tmbdjynq left foraminal stenosis. C6-C7: Uncovertebral arthropathy results in mild spinal canal narrowing and mild bilateral foraminal narrowing. C7-T1: Posterior disc bulge, uncovertebral arthropathy, and buckling of the ligamentum flavum results in bwmqxuxx-hu-xtakwa spinal canal stenosis and fgifcfcc-fi-wpswpr bilateral foraminal stenosis. The soft tissues of neck are unremarkable. IMPRESSION: 1. No acute fracture or dislocation of the cervical spine. 2. Multilevel degenerative changes in the cervical spine, greatest at C4-C5 and C7-T1. 3. ACDF changes from C5 through C7. 4. Modic type II endplate degenerative changes at C4-C5. Dictated by: Dictated on workstation # [id number]
== END ==
LOC: RAD 12:39
PROVIDERS: ATTEND Neurological Surgery
DX: M47.812 Spondylosis without myelopathy or radiculopathy, cervical region (principal); M47.814 Spondylosis without myelopathy or radiculopathy, thoracic region
CPT/HCPCS: 72141

== ENCOUNTER → 2022-12-29 | Outpatient (CLI) | payer MEDICAID ==
--- NOTE | 2022-12-29 19:40 | Diagnostic Imaging Report ---
CLINICAL INDICATION: Patient with neck surgery on 11/11/2022. Incision has been healing. EXAM: CT scan of the cervical spine without contrast. Sagittal and coronal reformatted images were created. Auto Exposure Controls were utilized during the CT exam to meet ALARA standards for radiation dose reduction. COMPARISON: MRI of the cervical spine without contrast dated 05/16/2022. FINDINGS: There are interval postoperative changes of the C4-C5 anterior cervical discectomy fusion and interval placement of C4-T1 posterior spinal fusion hardware. Previously seen C5-C7 anterior cervical discectomy fusion hardware is again noted. There is solid bony bridging/fusion seen at the C6-C7 level. There is no significant bony bridging/fusion seen at the C5-C6 level. There is no significant fusion yet seen at the C4-C5 level. There are interval C3-C7 laminectomies noted. There is osteolysis adjacent to the bilateral T1 screws and left T4 screw from the posterior spinal construct. There is interval development of a fluid collection in the posterior laminectomy region which extends from the C3-T1 levels. This fluid collection has a small amount of air within it. This fluid collection measures 4.2 cm x 3.0 cm x 9.3 cm (AP x Trans x CC). There is no significant bony central canal narrowing. There is moderate to severe left C3-C4 neural foramen narrowing and moderate right C3-C4 neural foramen narrowing. There is severe left and at least moderate right C4-C5 neural foramen narrowing. There is at least moderate to severe right neural foramen narrowing and moderate left C5-C6 neural foramen narrowing. There is mild to moderate left and moderate right C6-C7 neural foramen narrowing. The remainder of the cervical spine shows no significant central canal narrowing. IMPRESSION: 1: There are interval postoperative changes with now C4-C7 anterior cervical discectomy fusion created in two constructs. The C4-C5 ACDF component has been placed in the interim. The C5-C7 ACDF is seen on the prior study. There is bony bridging/fusion at the C6-C7 level and no significant fusion seen at the C5-C6 level which may be seen with pseudoarthrosis. 2: There is interval placement of C4 through T1 posterior spinal fusion hardware and C3-C7 laminectomies. There is osteolysis about the bilateral T1 screws and left T4 screw from posterior spinal construct. There is a moderate-sized fluid collection in the posterior cervical neck soft tissue. 3: There is multilevel cervical spine degenerative disease. Dictated by: Dictated on workstation # [id number]
== END ==
LOC: RAD 13:35
PROVIDERS: ATTEND Neurological Surgery
DX: M50.30 Other cervical disc degeneration, unspecified cervical region (principal); Z98.890 Other specified postprocedural states
CPT/HCPCS: 72125

== ENCOUNTER 2023-01-30 12:18 | Inpatient (IN) | payer MEDICAID ==
[~2023-01-30] VITALS: Ht 180.4 cm; Wt 109.7 kg
--- NOTE | 2023-01-30 12:12 | PM&R Post Admission Assessment ---
PM&R HP Date of Visit: Jan 30, 2023 Past Libcdqz-Shpqrc-Qbewvz Hx Patient Social History Type Used: Cigarettes Recent Hopitalizations: No Immunizations Up To Date Date of Pneumonia Vaccine: Feb 22, 2018 Date of Influenza Vaccine: May 25, 2017 Seasonal Allergies Seasonal Allergies: Yes Past Medical History Currently Using CPAP: No Currently Using BIPAP: No Sexually Transmitted Disease: No HIV/AIDS: No Gastrointestinal: Gastroesophageal Reflux Musculoskeletal: Arthritis, Fibromyalgia, Back Injury, Chronic Back Pain Loss of Vision: Bilateral Hearing Impairment: Denies Psychosocial: Anxiety, Depression History of Blood Disorders: No Adverse Reaction to Blood Vazquez: No (N/A) Family History FH: heart disease 19 MOTHER No Pertinent Family Hx PM&R Allergy/Meds/Data Review Allergies Coded Allergies: hydromorphone (Verified Adverse Reaction, Severe, CONFUSION, 11/23/19) Home Medications Scheduled Amlodipine Besylate (Norvasc), 10 MG PO DAILY, (Reported) Aspirin (Aspirin EC), 81 MG PO DAILY, (Reported) Atorvastatin Calcium (Atorvastatin Calcium), 80 MG PO HS, (Reported) Cetirizine HCl (Cetirizine HCl), 10 MG PO DAILY, (Reported) Duloxetine HCl (Duloxetine HCl), 30 MG PO BID, (Reported) Gabapentin (Neurontin), 600 MG PO TID, (Reported) Hydrocodone Bit/Acetaminophen (HYDROcodone/APAP 10/325 TABLET), 1 EA PO TID, (Reported) Lansoprazole (Prevacid), 30 MG PO HS, (Reported) Metoprolol Tartrate (Metoprolol Tartrate), 100 MG PO BID, (Reported) Montelukast Sodium (Montelukast Sodium), 10 MG PO DAILY, (Reported) Terbinafine HCl (Terbinafine), 15 GM TP PRN, (Reported) Scheduled PRN Albuterol Sulfate (Ventolin Hfa), 2 PUFF IH Q4H PRN for SHORTNESS OF BREATH, (Reported) Cyclobenzaprine HCl (Cyclobenzaprine HCl), 10 MG PO TID PRN for MUSCLE SPASMS, (Reported) Diclofenac Sodium (Voltaren), 1 GM TP BID PRN for ARTHRITIS PAIN, (Reported) Fluticasone Propionate (Fluticasone Propionate), 1 SPRAY NS DAILY PRN for CONGESTION, (Reported) Tiotropium Br/Olodaterol HCl (Stiolto Respimat Inhal [place]), 1 PUFF IH HS PRN for SHORTNESS OF BREATH, (Reported) Physical Exam Physical Exam Vital Signs Capillary Refill : Height, Weight, BMI Height: 5'11.00" Weight: 218lbs. 8.0oz. 99.295936hq; 31.82 BMI Method:Stated PM&R Medical Assessment & Plan REHAB/MEDICAL ASSESSMENT AND PLAN: REHAB IMPAIRMENT GROUP: [ ] ETIOLOGIC DIAGNOSIS: [ (condition that led to rehab admission) ] The comorbidities that impact the patients function and/or functional outcome by: [ ] REHAB PLAN: The patient is being admitted to our comprehensive inpatient rehabilitation facility and can tolerate the intensity of service consisting of at least: 180 minutes of therapy a day, 5 out of 7 days a week Rehab treatment will consist of: [ (write brief focus that includes physician, rehab nursing and therapies/modalitiesIPOC will have more specifics) ] The patient/family has a good understanding of our discharge process and will benefit from an interdisciplinary inpatient rehabilitation program. The patient has potential to make improvement and is in need of at least two of the following multidisciplinary therapies including but not limited to physical, occupational, speech, and prosthetics and orthotics. Additionally the patient will need services from respiratory, nutritional services, wound care, psychology, etc. (Customize this to each patient). Given the patients complex condition and risk of further medical complications, rehabilitation services cannot be safely or effectively provided at a lower level of care such as a fci facility. BARRIERS TO DISCHARGE: [ ] ESTIMATED LOS: [ ] DISPOSITION: [ ] RELEVANT CHANGES SINCE PREADMISSION SCREENING: I have compared the patients medical and functional status at the time of the preadmission screening and there are: [no changes] [changes as follows: (if there is a discrepancy between the IGC/Etiologic stated on the PAS, address/clarify this as well) ] PROGNOSIS: [ ] REHABILITATION GOALS: 1. [ (specific to the patient) ] All the above goals were reviewed with the patient and he/she is in agreement. By signing this document, I acknowledge that I have personally performed a full physical examination on this patient within 24 hours of admission to this inpatient rehabilitation facility and have determined the patient to be able to tolerate the above course of treatment at an intensive level for a reasonable period of time. I will be completing a detailed individualized Plan of Care for this patient by day #4 of the patients stay based upon the Preadmission Screen, the Post-Admission Evaluation, and the therapy evaluations. HARMEET GUERIN DO Jan 30, 2023 12:12
[~2023-01-30 12:18] MED LIST changes: +ALPRAZolam 0.25 MG TABLET PO PRN; +BISACODYL 10 MG SUPPOSITORY PR PRN; +CALCIUM CARBONATE 500 MG CHEW TABLET PO PRN; +DOCUSATE SODIUM 100 MG CAPSULE PO PRN; +LACTULOSE SYRUP 10GM/15ML 30ML UDC PO PRN; +LOPERAMIDE 2 MG CAPSULE PO PRN; +MELATONIN 3 MG TABLET PO PRN; +ONDANSETRON 4 MG ORAL DISSOLVE TABLET PO PRN; +Sodium Phosphate/Sodium Biphosphate ADULT enema PR PRN; +diphenhydrAMINE 25 MG TABLET PO PRN; +guaiFENesin/CODEINE 10ML UDC PO PRN
[2023-01-31] MEDS ORDERED: CEFT2VIA12 IV (13:41)
[2023-01-31] MEDS ORDERED: CLN.2T PO (13:41)
[2023-01-31] MEDS ORDERED: ACET325T38 PO (13:41)
[2023-01-31] MEDS ORDERED: OXC5T PO (13:41)
[2023-01-31] MEDS ORDERED: BUME2TAB7 PO (13:41)
[2023-01-31] MEDS ORDERED: PANT40TA2 PO (13:41)
[2023-01-31] MEDS ORDERED: FOLI1TAB33 PO (13:41)
[2023-01-31] MEDS ORDERED: MINO100C5 PO (13:41)
[2023-01-31] MEDS ORDERED: [UNRECOGNIZED DRUG - CODE] TP (13:41)
[2023-01-31] MEDS ORDERED: POTA-330 PO (13:41)
[2023-01-31] MEDS ORDERED: ERGO1250 PO (13:41)
[2023-01-31] MEDS ORDERED: NIFE90TA57 PO (13:41)
[2023-01-31] MEDS ORDERED: GABA-486 PO (13:41)
[2023-01-31] MEDS ORDERED: LATA2.5D19 OU (13:41)
[2023-01-31] MEDS ORDERED: SENN1TAB33 PO (13:41)
[2023-01-31] MEDS ORDERED: CRV25T PO (13:41)
[2023-01-31] MEDS ORDERED: HYDR100T27 PO (13:41)
[2023-01-31] MEDS ORDERED: FAMO-356 PO (13:41)
[2023-01-31] MEDS ORDERED: SACC250C12 PO (13:41)
[2023-01-31] MEDS ORDERED: NICO-449 BC (13:50)
[2023-01-31] MEDS ORDERED: ALBU8.5H6 IH (13:50)
[2023-01-31] MEDS ORDERED: FLUT9.9S NS (13:50)
[2023-01-31] MEDS ORDERED: FLUT1BLS3 IH (13:50)
[2023-01-31] MEDS ORDERED: ALBU2.5V4 INH (13:50)
[2023-02-01] MEDS ORDERED: CEPH500T PO (08:05)
[2023-02-01] MEDS ORDERED: RT-ALBUTEROL SULF 2.5 MG/3 ML PRE-MIX VIAL INH PRN (09:45)
[2023-02-01] MEDS ORDERED: ACETAMINOPHEN 325 MG TABLET PO SCH (09:45)
[2023-02-01] MEDS ORDERED: RT-ALBUTEROL SULF 2.5 MG/3 ML PRE-MIX VIAL IH PRN (09:45)
--- NOTE | 2023-02-01 09:45 | PM&R Post Admission Assessment ---
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 Prior hardware of C2-T3 screw placement was modified and patient remains in a cervical spine collar hard type. He did have MSSA bacteremia and will require 42 days of IV antibiotics. 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 He will go home with his . Past Oizzopu-Ndqhjk-Kzjmav Hx Past Med/Social Hx: Reviewed Nursing Past Med/Soc Hx, Reviewed and Corrections made Patient Social History Marrital Status: Employed/Student: unemployed Alcohol Use: Occasionally Uses Smoking Status: Current Everyday Smoker Type Used: Cigarettes Recent Hopitalizations: No Immunizations Up To Date Date of Pneumonia Vaccine: Feb 22, 2018 Date of Influenza Vaccine: May 25, 2017 Seasonal Allergies Seasonal Allergies: Yes Past Medical History Surgeries: Orthopedic Currently Using CPAP: No Currently Using BIPAP: No Cardiac: Cardiomyopathy, Coronary Artery Disease, High Cholesterol, Hypertension Neurological: Neuropathy Sexually Transmitted Disease: No HIV/AIDS: No Gastrointestinal: Gastroesophageal Reflux Musculoskeletal: Arthritis, Fibromyalgia, Back Injury, Chronic Back Pain Loss of Vision: Bilateral Hearing Impairment: Denies Psychosocial: Anxiety, Depression History of Blood Disorders: No Adverse Reaction to Blood Vazquez: No (N/A) Family History FH: heart disease 19 MOTHER No Pertinent Family Hx PM&R Allergy/Meds/Data Review Allergies Coded Allergies: hydromorphone (Verified Adverse Reaction, Severe, CONFUSION, 11/23/19) Home Medications Scheduled Acetaminophen (Tylenol), 650 MG PO Q6H, (Reported) Amlodipine Besylate (Norvasc), 10 MG PO DAILY, (Reported) Atorvastatin Calcium (Atorvastatin Calcium), 80 MG PO DAILY, (Reported) Bumetanide (Bumetanide), 2 MG PO DAILY, (Reported) Carvedilol (Coreg), 25 MG PO BID WITH MEALS, (Reported) Ceftriaxone Sodium (Ceftriaxone), 2 GM IV DAILY, (Reported) Cephalexin (Cephalexin), 500 MG PO BID, (Reported) Clonidine HCl (Clonidine HCl), 0.2 MG PO BID, (Reported) Ergocalciferol (Vitamin D2) (Vitamin D2), 1,250 MCG PO Q7DAYS, (Reported) Famotidine (Acid Cereal Chemist (FAMOTIDINE)), 20 MG PO BIDAC, (Reported) Fluticasone/Umeclidin/Vilanter (Trelegy Ellipta 100-62.5-25), 1 PUFF IH DAILY, (Reported) Folic Acid (Folic Acid), 1 MG PO DAILY, (Reported) Gabapentin (Gabapentin), 100 MG PO TID, (Reported) Hydralazine HCl (Hydralazine HCl), 100 MG PO Q8H, (Reported) Latanoprost (Xalatan), 1 DROP OU HS, (Reported) Minocycline HCl (Minocycline HCl), 100 MG PO Q12H, (Reported) Montelukast Sodium (Montelukast Sodium), 10 MG PO DAILY, (Reported) Nifedipine (Nifedipine ER), 90 MG PO DAILY, (Reported) Pantoprazole Sodium (Protonix), 40 MG PO DAILY, (Reported) Potassium Chloride (Potassium Chloride), 20 MEQ PO DAILY, (Reported) Saccharomyces Boulardii (Saccharomyces Boulardii), 250 MG PO BID, (Reported) Sennosides/Docusate Sodium (Sennosides-Docusate Sodium Tab), 2 EACH PO BID, (Reported) Zinc Oxide/Cod Liver Oil (Desitin 40% Paste), 1 APPFUL TP BID, (Reported) Scheduled PRN Albuterol Sulfate (Albuterol Sulfate), 2.5 MG INH Q6H PRN for SHORTNESS OF BREATH, (Reported) Albuterol Sulfate (Ventolin Hfa), 2 PUFF IH Q4H PRN for SHORTNESS OF BREATH, (Reported) Cyclobenzaprine HCl (Cyclobenzaprine HCl), 10 MG PO TID PRN for MUSCLE SPASMS, (Reported) Fluticasone Propionate (Flonase Allergy Relief), 1 SPRAY NS PRN PRN for ALLERGY RELIEF, (Reported) Nicotine Polacrilex (Nicotine Lozenge), 4 MG BC Q2H PRN for SMOKING CESSATION, (Reported) Oxycodone Hcl (Oxyir Tablet), 5 MG PO Q4H PRN for PAIN, (Reported) Discontinued Medications Albuterol Sulfate (Ventolin Hfa), 2 PUFF IH Q4H PRN for SHORTNESS OF BREATH, (Reported) Discontinued Reason: No Longer Taking Aspirin (Aspirin EC), 81 MG PO DAILY, (Reported) Discontinued Reason: No Longer Taking Cetirizine HCl (Cetirizine HCl), 10 MG PO DAILY, (Reported) Discontinued Reason: No Longer Taking Diclofenac Sodium (Voltaren), 1 GM TP BID PRN for ARTHRITIS PAIN, (Reported) Discontinued Reason: No Longer Taking Duloxetine HCl (Duloxetine HCl), 30 MG PO BID, (Reported) Discontinued Reason: No Longer Taking Fluticasone Propionate (Fluticasone Propionate), 1 SPRAY NS DAILY PRN for CONGESTION, (Reported) Discontinued Reason: No Longer Taking Gabapentin (Neurontin), 600 MG PO TID, (Reported) Discontinued Reason: No Longer Taking Hydrocodone Bit/Acetaminophen (HYDROcodone/APAP 10/325 TABLET), 1 EA PO TID, (Reported) Discontinued Reason: No Longer Taking Lansoprazole (Prevacid), 30 MG PO HS, (Reported) Discontinued Reason: No Longer Taking Metoprolol Tartrate (Metoprolol Tartrate), 100 MG PO BID, (Reported) Discontinued Reason: No Longer Taking Terbinafine HCl (Terbinafine), 15 GM TP PRN, (Reported) Discontinued Reason: No Longer Taking Tiotropium Br/Olodaterol HCl (Stiolto Respimat Inhal [place]), 1 PUFF IH HS PRN for SHORTNESS OF BREATH, (Reported) Discontinued Reason: No Longer Taking Current Medications Current Medications Reviewed Review of Systems Constitutional: see HPI, malaise, weakness EENTM: no symptoms reported Respiratory: no symptoms reported Cardiovascular: no symptoms reported Gastrointestinal: no symptoms reported Genitourinary: no symptoms reported Musculoskeletal: back pain, muscle pain, muscle stiffness, muscle cramps, neck pain Skin: no symptoms reported Psychiatric/Neurological: No Symptoms Reported All Other Systems Reviewed Negative Unless Noted: Yes Physical Exam Physical Exam Vital Signs Capillary Refill : Height, Weight, BMI Height: 5'11.00" Weight: 218lbs. 8.0oz. 99.814375ie; 31.82 BMI Method:Stated General Appearance: No Apparent Distress, WD/WN, Chronically ill Eyes: Bilateral Eye Normal Inspection, Bilateral Eye PERRL HEENT: PERRL/EOMI, Normal ENT Inspection, Pharynx Normal Neck: Full Range of Motion, Normal Inspection, Non Tender, Supple, Carotid Bruit, Other (Cervical spine collar in place) Respiratory: Chest Non Tender, Lungs Clear, Normal Breath Sounds, No Accessory Muscle Use, No Respiratory Distress Cardiovascular: Regular Rate, Rhythm, No Edema, No Gallop, No JVD, No Murmur, Normal Peripheral Pulses Gastrointestinal: Normal Bowel Sounds, No Organomegaly, No Pulsatile Mass, Non Tender, Soft Back: Normal Inspection, No CVA Tenderness, No Vertebral Tenderness, Decreased Range of Motion ( of neck) Extremity: Normal Capillary Refill, Normal Inspection, Normal Range of Motion, Non Tender, No Calf Tenderness, No Pedal Edema Neurologic/Psychiatric: Alert, Oriented x3, network programmer II-XII Norm as Tested, Abnormal Gait, Depressed Affect, Motor Weakness ( all extremities) Skin: Normal Color, Warm/Dry Lymphatic: No Adenopathy PM&R Medical Assessment & Plan REHAB/MEDICAL ASSESSMENT AND PLAN: REHAB IMPAIRMENT GROUP: Neurologic condition ETIOLOGIC DIAGNOSIS: Critical illness myopathy The comorbidities that impact the patients function and/or functional outcome by: cervical spine infection, hard collar for cervical spine 08/12, current IV antibiotics, hypertension [id number] REHAB PLAN: The patient is being admitted to our comprehensive inpatient rehabilitation facility and can tolerate the intensity of service consisting of at least: 180 minutes of therapy a day, 5 out of 7 days a week Rehab treatment will consist of: PT and OT will focus on regaining function with assistive devices in order to increase stamina and increase ADLs in order to go home The patient/family has a good understanding of our discharge process and will benefit from an interdisciplinary inpatient rehabilitation program. The patient has potential to make improvement and is in need of at least two of the following multidisciplinary therapies including but not limited to physical, occupational, speech, and prosthetics and orthotics. Additionally the patient will need services from respiratory, nutritional services, wound care, psychology, etc. (Customize this to each patient). Given the patients complex condition and risk of further medical complications, rehabilitation services cannot be safely or effectively provided at a lower level of care such as a care home facility. BARRIERS TO DISCHARGE: IV antibiotics ESTIMATED LOS: 10 days DISPOSITION: home with spouse RELEVANT CHANGES SINCE PREADMISSION SCREENING: I have compared the patients medical and functional status at the time of the preadmission screening and there are: no changes PROGNOSIS: good REHABILITATION GOALS: 1. PT and OT will focus on regaining function with assistive devices in order to increase stamina and increase ADLs in order to go home All the above goals were reviewed with the patient and he/she is in agreement. By signing this document, I acknowledge that I have personally performed a full physical examination on this patient within 24 hours of admission to this inpatient rehabilitation facility and have determined the patient to be able to tolerate the above course of treatment at an intensive level for a reasonable period of time. I will be completing a detailed individualized Plan of Care for this patient by day #4 of the patients stay based upon the Preadmission Screen, the Post-Admission Evaluation, and the therapy evaluations. 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
[2023-02-01] MEDS: DOCUSATE SODIUM 100 MG CAPSULE PO SCH ×5 (10:48→21:06)
[2023-02-01] MEDS: SENNA W/DOCUSATE TABLET PO SCH ×3 (10:48→21:06)
--- OUTSIDE RECORDS SUMMARY | 2023-02-01 11:20 | XMS REPORT ---
Author Author [facility] ter of [facility] ter of [facility] Address Unknown Phone Unavailable Care Team Providers Care Load Dispatcher Local Name Role Phone PREETHI YIN Unavailable PROBLEMS Type Condition ICD9-CM Code QMC13-AX Code Onset Dates Condition Status SNOMED Code Notes Problem Chronic pain syndrome G89.4 Active 933024869 Problem Anxiety disorder, unspecified F41.9 Active 285081486 Problem Other chronic pain G89.29 Active 79474 001 Problem Gastroesophageal reflux disease, esophagitis presence not specified K21.9 Active 836854835 Problem Bilateral primary osteoarthritis of knee M17.0 Active 886830612 Problem Nocturnal oxygen desaturation G47.34 Active 419047584 Problem Lumbago with sciatica, left side M54.42 Active 686702414 Problem Lumbago with sciatica, right side M54.41 Active 195886301711529 Problem Lung nodule < 6cm on CT R91.1 Active 213975573 Problem Panlobular emphysema J43.1 Active 4378240 ALLERGIES Allergen (clinical drug ingredient) Drug/Non Drug Allergy documented on EMR Reaction Allergy Type Onset Date Status hydromorphone Dilaudid([facility] Code:[address]-47) dizziness Drug Allergy Active ENCOUNTERS from 1960 to 2020-04-03 Encounter Location Date Provider Diagnosis [facility] [address] [facility] [place] [id number] [place] [address] Aug, PREETHI YIN Lumbago with sciatica, left side M54.42 ; Lumbago with sciatica, right side M54.41 and Other chronic pain G89.29 IMMUNIZATIONS Vaccine Route Administration Date Status influenza IIV3 (history) Unknown Feb 21, 2014 Adm inistered STATE FUNDED TDAP (BOOSTRIX) IM Intramuscular Apr 21, 2019 Administered STATE FUNDED FLULUVAL QUAD 0 .5ML 6 MONTHS AND UP 2019 IM Intramuscular July 21, 2019 Administered FLUARIX QUAD (3 AND UP) 2017 IM Intramuscular Jun 11, 2017 Administered SOCIAL HISTORY Tobacco Use: Social History Observation Description Date Details (start date - stop date) Current Smoker Sex Assigned At : Social History Observation Description Sex Assigned At Unknown Alcohol Screen (Audit-C) Question Answer Notes Did you have a drink containing alcohol in the p ast year? No Points 0 Interpretation Negative Drug and Alcohol (Do not use) Question Answer Notes Total Score: 0 Interpretation: No problems reported Tobacco Use/Smoking Question Answer Notes Additional Findings: Tobacco User Heavy cigarett e smoker (20-39 cigs/day) Are you a current smoker Tobacco use other than smoking: Question Answer Notes Are you an other tobacco user? No REASON FOR REFERRAL No Information VITAL SIGNS Height 71 in Aug, Height-cm 180.34 cm Aug, Weight 221.5 lbs Aug, Weight-kg 100.47 kg Aug, Temperature 97.4 degrees Fahrenheit Aug, Heart Rate 77 bpm Aug, Respiratory Rate 20 bpm Aug, BMI 30.89 kg/m2 Aug, Blood pressure systolic 144 mmHg Aug, Blood pressure diastolic 86 mmHg Aug, MEDICATIONS Medication SIG (Take, Route, Frequency, Duration) Notes Start Date End Date Status Cetirizine HCl 10 MG TAKE 1 TABLET BY [facility] DAILY for 30 Active Diclofenac Sodium 1 % APPLY TO AFFECTED AREA TWICE DAILY for 15 Active Gabapentin 300 MG TAKE 2 CAPSULES BY MOUTH THREE TIMES DAILY FOR 30 DAYS for 30 Active Amlodipine Besylate 10 MG TAKE 1 TABLET BY MOUTH DAILY FOR 30 DAYS for 30 Active Singulair 10 MG 1 tablet Orally Once a day for 30 day(s) Active Cyclobenzaprine HCl 10 MG TAKE 1 TABLET BY MOUTH THREE TIMES DAILY FOR 30 DAYS for 30 Active Tiotropium Garretson-Olodaterol 2.5-2.5 MCG/ACT 2 puffs Inhalation Once a day Active Albuterol Sulfate HFA 108 (90 Base) MCG/ACT INHALE 2 PUFFS BY MOUTH EVERY FOUR HOURS NEEDED FOR SHORTNESS OF BREATH for 17 Active Relafen DS 1000 MG TAKE 1 TABLET BY DMITRY TH DAILY for 30 Active Pulse Oximeter 1 test blood oxygen 2 times a day. DX: emphysema Jan, Active Aspir-81 Active Lansoprazole 30 MG 1 capsule Orally Onc e a day for 30 day(s) Active Flonase 50 MCG/ACT 1 spray in each nost ril Nasally Once a day for 30 Active Terbinafine HCl 1 % 1 application Externally Once a day for 14 Active Metoprolol Tartrate 100 MG TAKE ONE TABL ET BY MOUTH TWICE DAILY WITH FOOD for 30 Active Nabumetone 750 MG 1 tablet Orally 2 ti mes a day Jul, Active Hydrocodone-Acetaminophen 10-325 mg 1 tablet as needed Orally 3 times a day for 28 days Mar, Active Duloxetine HCl 30 MG TAKE ONE CAPSULE BY MOUTH TWO TIMES DAILY for 30 Active Atorvastatin Calcium 80 MG 1 tablet Once a day for 30 Active REASON FOR VISIT Pain management (chronic)- keily lehman, consult on getting measle shot - Keily lehman - will go to [facility] to get it since ours is not usable at this time- keily lehman MEDICAL (GENERAL) HISTORY Type Description Date Medical [...] Surgery(s) only Hospitalization History Chest Pain 08/2017 MENTAL STATUS No Information ASSESSMENTS Encounter Date Diagnosis Assessment Notes Treatment Notes Treatment Clinical Notes Aug, Lumbago with sciatica, left side (ICD-10 - M54.42) Back Pain: Care Instructions material was printed Aug, Lumbago with sciatica, right side (ICD-10 - M54.41) Aug, Other chronic pain (ICD-10 - G89.29) PLAN OF TREATMENT Medication Medication Name Sig Start Date Stop Date Pulse Oximeter 1 test blood oxygen 2 times a day. DX: emphysema Jan, Hydrocodone-Acetaminophen 10 -325 mg 1 tablet as needed Orally 3 times a day for 28 days Mar, Relafen DS 1000 MG TAKE 1 TABLET BY DMITRY TH DAILY for 30 Gabapentin 300 MG TAKE 2 CAPSULES BY M OUTH THREE TIMES DAILY FOR 30 DAYS for 30 Albuterol Sulfate HFA 108 (9 0 Base) MCG/ACT INHALE 2 PUFFS BY MOUTH EVERY FOUR HOURS NEEDED FOR SHORTNESS OF BREATH for 17 Diclofenac Sodium 1 % APPLY TO AFFECTED AREA TWICE DAILY for 15 Atorvastatin Calcium 80 MG 1 tablet Once a day for 30 Duloxetine HCl 30 MG TAKE ONE CAPSULE BY MOUTH TWO TIMES DAILY for 30 Cyclobenzaprine HCl 10 MG TAKE 1 TABLET BY MOUTH THREE TIMES DAILY FOR 30 DAYS for 30 Amlodipine Besylate 10 MG TAKE 1 TABLET BY MOUTH DAILY FOR 30 DAYS for 30 Metoprolol Tartrate 100 MG TAKE ONE TABL ET BY MOUTH TWICE DAILY WITH FOOD for 30 Treatment Notes Assessment Notes Clinical Notes Lumbago with sciatica, left side Back Pa in: Care Instructions material was printed Next Appt Details Provider Name:PREETHI YIN , 2020-04-18 11:00:00 AM, [address] [place], [id number], [place], [address], Insurance Providers Payer Name Payer Address Payer Phone Insured Name Patient Relationship to Insured Coverage Start Date Coverage End Date ESTEE [employer] [facility] [address] [address] [facility] [id number] Rm Brewer self
--- OUTSIDE RECORDS SUMMARY | 2023-02-01 11:20 | XMS REPORT ---
Author Author [facility] ter [facility] ter [facility] Address Unknown Phone Unavailable Care Team Providers Care Dot Compliance Manager Name Role Phone ALEX BARROS Unavailable PROBLEMS Type Condition ICD9-CM Code [id number] Code Onset Dates Condition Status W/U Status Risk SNOMED Code Notes Problem Lumbago with sciatica, left side M54.42 confirmed [id number] Problem Anxiety disorder, unspecified F41.9 confirmed 478974592 Problem Lung nodule < 6cm on CT R91.1 confirmed 234177102 Problem Lumbago with sciatica, right side M54.41 confirmed 814265524 1 14689 Problem Gastroesophag eal reflux disease, esophagitis presence not specified K21.9 confirmed 246303531 Problem Panlobular emphysema J43.1 confirmed 9568193 Problem Hypothyroidis m (acquired) E03.9 confirmed 73945682 Problem Hypertriglyce ridemia E78.1 confirmed 772839374 Problem Bilateral neuropathy of upper extremities G56.93 confirmed 70357805 Problem Degenerative disc disease, cervical M50.30 confirmed 53148611 Problem Osteoarthriti s of spine with radiculopathy , cervical region M47.22 confirmed 143422059 Problem Obesity (BMI 30.0-34.9) E66.9 confirmed 725504641 1 93570 Problem Primary osteoarthriti s, right hand M19.041 confirmed 801899 3496 26740 Problem Essential hypertension I10 confirmed 24687156 Problem Primary osteoarthriti s, left hand M19.042 confirmed 5929498 001 07628 Problem Chronic pain syndrome G89.4 confirmed 436180326 Problem Seasonal allergic rhinitis, unspecified trigger J30.2 confirmed 200206458 Problem Nicotine dependence, uncomplicated , unspecified nicotine product type F17.200 confirmed 809182197 Problem Moderate persistent asthma without complication J45.40 confirmed 039248478 Problem Nocturnal hypoxia G47.34 confirmed 534244096 ALLERGIES Allergen (clinical drug ingredient) Drug/Non Drug Allergy documented on EMR Reaction Allergy Type Onset Date Status hydromorphone Dilaudid([facility] Code:[address]-68) dizziness Drug Allergy Active ENCOUNTERS from 1960 to 2022-10-30 Encounter Location Date Provider Diagnosis [facility] [address] [facility] [id number] [place] [address] 30 Oct, 2020 ALEX TORCHIA Lumbago with sciatic a, right side M54.41 ; Lumbago with sciatica, left side M54.42 ; Chronic pain syndrome G89.4 ; Hypothyroidism (acquired) E03.9 ; Obesity (BMI 30-39.9) E66.9 ; Nocturnal oxygen desaturation G47.34 and Panlobular emphysema J43.1 IMMUNIZATIONS Vaccine Route Administration Date Status influenza IIV3 (history) Unknown Feb 21, 2014 Adm inistered PRIVATE SHINGRIX (HERPES ZOS TER-2 DOSE) IM Intramuscular August 06, 2020 Administered STATE FUNDED TDAP (BOOSTRIX) IM Intramuscular Apr 21, 2019 Administered STATE FUNDED FLULUVAL QUAD 0 .5ML 6 MONTHS AND UP 2019 IM Intramuscular Apr 18, 2020 Administered STATE FUNDED FLULAVAL QUAD 0 .5ML ( 6 MO AND UP) 2020 IM Intramuscular August 05, 2021 Administered 1st Booster MODERNA Bivalent , COVID-19, 0.5mL IM Intramuscular Feb 19, 2022 Administered PRIVATE SHINGRIX (HERPES ZOS TER-2 DOSE) IM Intramuscular May 10, 2020 Administered PRIVATE FLU 22-23 (FLULAVAL) AGE 6MO AND UP IM Intramuscular Feb 19, 2022 Administered STATE FUNDED FLULUVAL QUAD 0 .5ML 6 MONTHS AND UP 2018 IM Intramuscular July 21, 2019 Administered FLUARIX QUAD (3 AND UP) 2016 IM Intramuscular Jun 11, 2017 Administered SOCIAL HISTORY Sex Assigned At : Social History Observation Description Sex Assigned At Unknown Alcohol Screen (Audit-C) Question Answer Notes Did you have a drink containing alcohol in the p ast year? No Points 0 Interpretation Negative Cessation Question Answer Notes Date Tobacco Cessation Provided: 09/04/2021 Drug and Alcohol (Do not use) Question Answer Notes Total Score: 0 Interpretation: No problems reported PHQ2 Question Answer Notes In the last 2 weeks, how oft en have you had little interest or pleasure in doing things? Not at all In the last 2 weeks, how oft en have you been feeling down, depressed, or hopeless? Not at all Total PHQ2 Score 0 Tobacco use other than smoking: Question Answer Notes Are you an other tobacco user? No REASON FOR REFERRAL No Information VITAL SIGNS Height 71 in Oct, Height-cm 180.34 cm Oct, Weight 228.5 lbs Oct, Weight-kg 103.65 kg Oct, Temperature 97 degrees Fahrenheit Oct, Heart Rate 69 bpm Oct, Respiratory Rate 20 bpm Oct, Oximetry 96 % Oct, BMI 31.87 kg/m2 Oct, Blood pressure systolic 118 mmHg Oct, Blood pressure diastolic 80 mmHg Oct, MEDICATIONS Medication SIG (Take, Route, Frequency, Duration) Notes Start Date End Date Status amLODIPine Besylate 10 mg TAKE ONE TABLET BY MOUTH EVERY DAY for 30 Active Lansoprazole 30 mg TAKE ONE CAPSULE BY MOUTH EVERY DAY for 30 Active Diclofenac Sodium 1 % APPLY TO THE AFFECTED AREA(S) TWICE DAILY 2GM ABOVE WAIST 4GM BELOW for 30 Active Fluticasone Propionate 50 MCG/ACT INHALE 1 PUFF IN EACH NOSTRIL EVERY DAY for 30 Active Aspir-81 Active Atorvastatin Calcium 80 mg TAKE 1 TABLET BY MOUTH DAILY for 30 Active Oxygen 2L as directed inhale at night Active Pulse Oximeter 1 test blood oxygen 2 times a day. DX: emphysema Jan, Active Symbicort 160-4.5 MCG/ACT 2 puffs Inhalation Twice a day for 30 days rinse mouth after each dose Aug, Active Cyclobenzaprine HCl 10 mg TAKE ONE TABLET BY MOUTH THREE TIMES DAILY for 30 Active Metoprolol Tartrate 100 mg TAKE ONE TABLET BY MOUTH TWICE DAILY WITH FOOD FOR 90 DAYS for 90 Active Gabapentin 300 mg TAKE ONE CAPSULE BY MOUTH THREE TIMES DAILY for 28 Active Fish Oil 1000 MG 1 capsule Orally Once a day Active Albuterol Sulfate HFA 108 (90 Base) MCG/ACT INHALE TWO PUFFS BY MOUTH EVERY 4 HOURS NEEDED FOR SHORTNESS OF BREATH for 17 Active Cetirizine HCl 10 MG TAKE 1 TABLET BY MOUTH DAILY for 30 Active Montelukast Sodium 10 mg TAKE ONE TABLET BY MOUTH EVERY DAY for 30 Active HYDROcodone-Acetaminophe n 10-325 MG TAKE ONE TABLET BY MOUTH EVERY 8 HOURS NEEDED for 28 Oct, Active REASON FOR VISIT CHM F/U. Pt states that he is here for a CHM. PT states that he is having some rib pain on his leftit starts in the back and comes around to the front. Rocio Leach MA MEDICAL (GENERAL) HISTORY Type Description Date Medical History osteo arthritis Medical History COPD Medical History hypertension Medical History chronic sinusitis Medical History scoliosis Medical History hyperlipidemia Medical History clogged carotid arteries Medical History bone spur Medical History abd hernia Medical History Bilateral primary osteoarthritis of knee Medical History L1 compression fracture Surgical History 5- lower lumbar surgeries Surgical History 3- neck surgeries Surgical History torn rotator cuff R shoulder Surgical History left shoulder Surgical History appendectomy Surgical History Hernia Repair Surgical History Cyst removal Surgical History left knee replacement 2019 Surgical History right knee rplacement 2017 Hospitalization History Surgery(s) only Hospitalization History Chest Pain 08/2017 Hospitalization History L1 compression fracture - [facility] 11/06 MENTAL STATUS No Information ASSESSMENTS Encounter Date Diagnosis Assessment Notes Treatment Notes Treatment Clinical Notes Oct, Lumbago with sciatica, left side (ICD-10 - M54.42) Continue Hydrocodone and Gabapentin Oct, Lumbago with sciatica, right side (ICD-10 - M54.41) Oct, Chronic pain syndrom e (ICD-10 - G89.4) Oct, Hypothyroidism (acquired) (ICD-10 - E03.9) Cont meds Oct, Obesity (BMI 30-39.9 ) (ICD-10 - E66.9) Oct, Nocturnal oxygen desaturation (ICD-10 - G47.34) Oct, Panlobular emphysema (ICD-10 - J43.1) Cont meds Oct, Other Will continues the terms of the current controlled substances contract/agreemen t on file. Agreement/contact updated within the last 12 months. Metabolite UDS current in EMR and appropriate when last obtained. Ktracs appropriate. Will continue to be seen for face to face visit every 3 months for chronic management and monitoring to continue refills on a 28 day cycle. PLAN OF TREATMENT Medication Medication Name Sig Start Date Stop Date Albuterol Sulfate HFA 108 (9 0 Base) MCG/ACT INHALE TWO PUFFS BY MOUTH EVERY 4 HOURS NEEDED FOR SHORTNESS OF BREATH for 17 Montelukast Sodium 10 mg TAKE ONE TABLET BY MOUTH EVERY DAY for 30 HYDROcodone-Acetaminophen 10 -325 MG TAKE ONE TABLET BY MOUTH EVERY 8 HOURS NEEDED for 28 Oct, Gabapentin 300 mg TAKE ONE CAPSULE BY MOUTH THREE TIMES DAILY for amLODIPine Besylate 10 mg TAKE ONE TABLE T BY MOUTH EVERY DAY for 30 Treatment Notes Assessment Notes Clinical Notes Lumbago with sciatica, left side Continu e Hydrocodone and Gabapentin Hypothyroidism (acquired) Cont meds Panlobular emphysema Cont meds Next Appt Details 3 Months Reason:Pain Provider Name:ALEX Canales, 2022-11-13 12:20:00 AM, [address] [facility], [id number], [place], [address], Follow Up:3 MonthsPain Insurance Providers Payer Name Payer Address Payer Phone Insured Name Patient Relationship to Insured Coverage Start Date Coverage End Date Subscriber Number Group Number Progressive Insurance [address] [facility] [address] Pal Brewer Self - patient is the insured [id number] [facility] [employer] Better [employer] [address] [facility] [address] Pal Brewer Self - patient is the insured [id number] [employer] 19 [address] [address] [facility] [address] Pal Brewer Self - patient is the insured [id number]
--- OUTSIDE RECORDS SUMMARY | 2023-02-01 11:20 | XMS REPORT ---
Author Author [facility] ter [facility] ter [facility] Address Unknown Phone Unavailable Care Team Providers Care Construction Project Mgr Name Role Phone ALEX BARROS Unavailable PROBLEMS Type Condition ICD9-CM Code OHQ69-IU Code Onset Dates Condition Status W/U Status Risk SNOMED Code Notes Problem Anxiety disorder, unspecified F41.9 confirmed [id number] Problem Chronic pain syndrome G89.4 confirmed 586068085 Problem Lumbago with sciatica, right side M54.41 confirmed 273456958 1 04500 Problem Lumbago with sciatica, left side M54.42 confirmed 132176819 Problem Lung nodule < 6cm on CT R91.1 confirmed 650267575 Problem Panlobular emphysema J43.1 confirmed 9269630 Problem Hypertriglyce ridemia E78.1 confirmed 188874869 Problem Gastroesophag eal reflux disease, esophagitis presence not specified K21.9 confirmed 228898292 Problem Primary osteoarthriti s, right hand M19.041 confirmed 244090 6470 39994 Problem Bilateral neuropathy of upper extremities G56.93 confirmed 88750895 Problem Degenerative disc disease, cervical M50.30 confirmed 26459021 Problem Nocturnal hypoxia G47.34 confirmed 859368107 Problem Primary osteoarthriti s, left hand M19.042 confirmed 2589202 001 51155 Problem Obesity (BMI 30.0-34.9) E66.9 confirmed 967255598 1 87442 Problem Hypothyroidis m (acquired) E03.9 confirmed 34722137 Problem Osteoarthriti s of spine with radiculopathy , cervical region M47.22 confirmed 030105944 Problem Seasonal allergic rhinitis, unspecified trigger J30.2 confirmed 206710478 Problem Nicotine dependence, uncomplicated , unspecified nicotine product type F17.200 confirmed 469264252 Problem Moderate persistent asthma without complication J45.40 confirmed 702712854 ALLERGIES Allergen (clinical drug ingredient) Drug/Non Drug Allergy documented on EMR Reaction Allergy Type Onset Date Status hydromorphone Dilaudid([facility] Code:[address]-58) dizziness Drug Allergy Active ENCOUNTERS from 1960 to 2022-05-31 Encounter Location Date Provider Diagnosis [facility] [address] [facility] [id number] [place] [address] 12 Jun, 2020 ALEX BARROS IMMUNIZATIONS Vaccine Route Administration Date Status PRIVATE FLU 22-23 (FLULAVAL) AGE 6MO AND UP IM Intramuscular Feb 19, 2022 Administered STATE FUNDED FLULAVAL QUAD 0 .5ML ( 6 MO AND UP) 2020 IM Intramuscular August 05, 2021 Administered STATE FUNDED FLULUVAL QUAD 0 .5ML 6 MONTHS AND UP 2019 IM Intramuscular Apr 18, 2020 Administered STATE FUNDED FLULUVAL QUAD 0 .5ML 6 MONTHS AND UP 2018 IM Intramuscular July 21, 2019 Administered STATE FUNDED TDAP (BOOSTRIX) IM Intramuscular Apr 21, 2019 Administered PRIVATE SHINGRIX (HERPES ZOS TER-2 DOSE) IM Intramuscular August 06, 2020 Administered 1st Booster MODERNA Bivalent , COVID-19, 0.5mL IM Intramuscular Feb 19, 2022 Administered PRIVATE SHINGRIX (HERPES ZOS TER-2 DOSE) IM Intramuscular May 10, 2020 Administered FLUARIX QUAD (3 AND UP) 2016 IM Intramuscular Jun 11, 2017 Administered influenza IIV3 (history) Unknown Feb 21, 2014 Adm inistered SOCIAL HISTORY Sex Assigned At : Social [...] user? No REASON FOR REFERRAL No Information MEDICATIONS Medication SIG (Take, Route, Frequency, Duration) Notes Start Date End Date Status Symbicort 160-4.5 MCG/ACT 2 puffs Inhalation Twice a day for 30 days rinse mouth after each dose Aug, Active HYDROcodone-Acetaminophe n 10-325 MG TAKE ONE TABLET BY MOUTH EVERY 8 HOURS NEEDED FOR 28 DAYS Orally every 8 hrs for 28 days Apr, Active Fluticasone Propionate 50 MCG/ACT INHALE 1 PUFF IN EACH NOSTRIL EVERY DAY for 30 Active Cyclobenzaprine HCl 10 mg TAKE ONE TABLET BY MOUTH THREE TIMES DAILY for 30 Active Oxygen 2L as directed inhale at night Active Montelukast Sodium 10 mg TAKE ONE TABLET BY MOUTH EVERY DAY for 30 Active Atorvastatin Calcium 80 mg TAKE 1 TABLET BY MOUTH DAILY for 30 Active Aspir-81 Active amLODIPine Besylate 10 mg TAKE ONE TABLET BY MOUTH EVERY DAY for 30 Active Gabapentin 300 mg TAKE ONE CAPSULE BY MOUTH THREE TIMES DAILY for 28 Active Albuterol Sulfate HFA 108 (90 Base) MCG/ACT INHALE TWO PUFFS BY MOUTH EVERY 4 HOURS NEEDED FOR SHORTNESS OF BREATH for 17 Active Diclofenac Sodium 1 % APPLY TO THE AFFECTED AREA(S) TWICE DAILY 2GM ABOVE WAIST 4GM BELOW for 30 Active Pulse Oximeter 1 test blood oxygen 2 times a day. DX: emphysema Jan, Active Lansoprazole 30 mg TAKE ONE CAPSULE BY MOUTH EVERY DAY for 30 Active Metoprolol Tartrate 100 mg TAKE ONE TABLET BY MOUTH TWICE DAILY WITH FOOD FOR 90 DAYS for 90 Active Cetirizine HCl 10 MG TAKE 1 TABLET BY MOUTH DAILY for 30 Active Fish Oil 1000 MG 1 capsule Orally Once a day Active REASON FOR VISIT med refill request MEDICAL (GENERAL) HISTORY Type Description Date Medical [...] - [facility] 11/06 MENTAL STATUS No Information PLAN OF TREATMENT Medication Medication Name Sig Start Date Stop Date Gabapentin 300 mg TAKE ONE CAPSULE BY MOUTH THREE TIMES DAILY for 28 Albuterol Sulfate HFA 108 (9 0 Base) MCG/ACT INHALE TWO PUFFS BY MOUTH EVERY 4 HOURS NEEDED FOR SHORTNESS OF BREATH for 17 HYDROcodone-Acetaminophen 10-325 MG TAKE ONE TABLET BY MOUTH EVERY 8 HOURS NEEDED FOR 28 DAYS Orally every 8 hrs for 28 days Apr, amLODIPine Besylate 10 mg TAKE ONE TABLE T BY MOUTH EVERY DAY for 30 Symbicort 160-4.5 MCG/ACT 2 puffs Inhala tion Twice a day for 30 days Aug, Next Appt Details Provider Name:ALEX Canales, 2022-08-14 12:20:00 AM, [address] [facility], [id number], [place], [address], Insurance Providers Payer Name Payer Address Payer Phone Insured Name Patient Relationship to Insured Coverage Start Date Coverage End Date Subscriber Number Group Number Progressive Insurance [address] [facility] [address] Pal Brewer Self - patient is the insured [id number] [employer] 19 [address] [address] [facility] [address] Pal Brewer Self - patient is the insured [id number] [facility] 19 A[employer] Better Health [address] [facility] [address] Pal Brewer Self - patient is the insured [id number]
--- OUTSIDE RECORDS SUMMARY | 2023-02-01 11:20 | XMS REPORT ---
Author Author [facility] ter [facility] ter [facility] Address Unknown Phone Unavailable Care Team Providers Care Physician/Internist Name Role Phone ALEX BARROS Unavailable PROBLEMS Type Condition ICD9-CM Code EHD16-AC Code Onset Dates Condition Status W/U Status Risk SNOMED Code Notes Problem Lumbago with sciatica, left side M54.42 confirmed [id number] Problem Anxiety disorder, unspecified F41.9 confirmed 619878044 Problem Lung nodule < 6cm on CT R91.1 confirmed 442361756 Problem Lumbago with sciatica, right side M54.41 confirmed 522636534 1 76136 Problem Gastroesophag eal reflux disease, esophagitis presence not specified K21.9 confirmed 973977308 Problem Panlobular emphysema J43.1 confirmed 9149189 Problem Hypothyroidis m (acquired) E03.9 confirmed 04026068 Problem Hypertriglyce ridemia E78.1 confirmed 528300240 Problem Bilateral neuropathy of upper extremities G56.93 confirmed 62840980 Problem Degenerative disc disease, cervical M50.30 confirmed 77362621 Problem Osteoarthriti s of spine with radiculopathy , cervical region M47.22 confirmed 835305155 Problem Obesity (BMI 30.0-34.9) E66.9 confirmed 412036268 1 55086 Problem Primary osteoarthriti s, right hand M19.041 confirmed 116333 5213 31769 Problem Essential hypertension I10 confirmed 05609388 Problem Primary osteoarthriti s, left hand M19.042 confirmed 4702814 001 80158 Problem Chronic pain syndrome G89.4 confirmed 962406137 Problem Seasonal allergic rhinitis, unspecified trigger J30.2 confirmed 765048503 Problem Nicotine dependence, uncomplicated , unspecified nicotine product type F17.200 confirmed 618013221 Problem Moderate persistent asthma without complication J45.40 confirmed 142393681 Problem Nocturnal hypoxia G47.34 confirmed 160846577 ALLERGIES Allergen (clinical drug ingredient) Drug/Non Drug Allergy documented on EMR Reaction Allergy Type Onset Date Status hydromorphone Dilaudid([facility] Code:[address]-44) dizziness Drug Allergy Active ENCOUNTERS from 1960 to 2023-01-13 Encounter Location Date Provider Diagnosis [facility] [address] [facility] [id number] [place] [address] 14 Jan, 2021 ALEX BARROS IMMUNIZATIONS Vaccine Route Administration Date Status FLUARIX QUAD (3 AND UP) 2016 IM Intramuscular Jun 11, 2017 Administered PRIVATE SHINGRIX (HERPES ZOS TER-2 DOSE) IM Intramuscular August 06, 2020 Administered STATE FUNDED TDAP (BOOSTRIX) IM Intramuscular Apr 21, 2019 Administered STATE FUNDED FLULUVAL QUAD 0 .5ML 6 MONTHS AND UP 2018 IM Intramuscular July 21, 2019 Administered STATE FUNDED FLULUVAL QUAD 0 .5ML 6 MONTHS AND UP 2019 IM Intramuscular Apr 18, 2020 Administered PRIVATE FLU 22-23 (FLULAVAL) AGE 6MO AND UP IM Intramuscular Feb 19, 2022 Administered influenza IIV3 (history) Unknown Feb 21, 2014 Adm inistered Booster MODERNA Bivalent , COVID-19, 0.5mL IM Intramuscular Feb 19, 2022 Administered STATE FUNDED FLULAVAL QUAD 0 .5ML ( 6 MO AND UP) 2020 IM Intramuscular August 05, 2021 Administered PRIVATE SHINGRIX (HERPES ZOS TER-2 DOSE) IM Intramuscular May 10, 2020 Administered SOCIAL HISTORY Sex Assigned At : [...] Duration) Notes Start Date End Date Status Methocarbamol 750 MG 1 tablet Orally radha ry 8 hours as needed for 7 days Active Atorvastatin Calcium 80 mg TAKE 1 TABLET BY MOUTH DAILY for 30 Active Oxygen 2L as directed inhale a t night Active HYDROcodone-Acetaminophen 10-325 MG TAKE ONE TABLET BY MOUTH EVERY 8 HOURS NEEDED for 28 Dec, Active Cyclobenzaprine HCl 10 mg TAKE ONE TABLE T BY MOUTH THREE TIMES DAILY for 30 Active Gabapentin 300 mg TAKE ONE CAPSULE BY MOUTH THREE TIMES DAILY for 28 Active Cetirizine HCl 10 MG TAKE 1 TABLET BY MO UTH DAILY for 30 Active Diclofenac Sodium 1 % APPLY TO THE AFFEC FELICIA AREA(S) TWICE DAILY 2GM ABOVE WAIST 4GM BELOW for 30 Active Pulse Oximeter 1 test blood oxygen 2 times a day. DX: emphysema Jan, Active Rocephin 1 GM Inject 1 GM Intramuscularly one time for 1 days Nov, Active Lansoprazole 30 mg TAKE ONE CAPSULE BY MOUTH EVERY DAY for 30 Active Aspir-81 Active Fluticasone Propionate 50 MCG/ACT INHALE 1 PUFF IN EACH NOSTRIL EVERY DAY for 30 Active Budesonide-Formoterol Fumarate 160-4.5 MCG/ACT INHALE TWO PUFFS BY MOUTH TWICE DAILY FOR THIRTY DAYS for 30 Active Albuterol Sulfate HFA 108 (90 Base) MCG/ACT INHALE TWO PUFFS BY MOUTH EVERY 4 HOURS NEEDED FOR SHORTNESS OF BREATH for 17 Active amLODIPine Besylate 10 mg TAKE ONE TABLE T BY MOUTH EVERY DAY for 30 Active Montelukast Sodium 10 mg TAKE ONE TABLET BY MOUTH EVERY DAY for 30 Active Fish Oil 1000 MG 1 capsule Orally Onc e a day Active Sulfamethoxazole-Trimetho prim 800-160 MG 1 tablet Orally Twice a day for 10 days Nov, Active Metoprolol Tartrate 100 mg TAKE ONE TABLET BY MOUTH TWICE DAILY WITH FOOD FOR 90 DAYS for 90 Active REASON FOR VISIT Controlled Med Refill- due 01/30 MEDICAL (GENERAL) HISTORY Type Description Date Medical [...] 2019 Surgical History right knee rplacement 2017 Surgical History neck fusion C4-T1 11/07 Hospitalization History Surgery(s) only Hospitalization History Chest Pain 08/2017 Hospitalization History L1 compression fracture - [facility] 11/06 MENTAL STATUS No Information PLAN OF TREATMENT Next Appt Details Provider Name:ALEX Canales, 2023-02-12 10:40:00 AM, [address] [facility], [id number], [place], [address], Provider Name:ALEX Canales, 2023-03-02 02:40:00 PM, [address], [id number], [place], [address], Insurance Providers Payer Name Payer Address Payer Phone Insured Name Patient Relationship to Insured Coverage Start Date Coverage End Date Subscriber Number Group Number [id number] [employer] [address] [facility] [address] Pal Brewer Self - patient is the insured [id number] Progressive Insurance [address] [facility] [address] Pal Brewer Self - patient is the insured [id number] [employer] 19 [address] [address] [facility] [address] Pal Brewer Self - patient is the insured [id number] MEDICATIONS ADMINISTERED Medication Instructions Date of Administration Dosag e cefTRIAXone Sodium Nov, 1000 mg
--- OUTSIDE RECORDS SUMMARY | 2023-02-01 11:20 | XMS REPORT ---
Author Author [facility] ter [facility] ter [facility] Address Unknown Phone Unavailable Care Team Providers Care Form Raiser Name Role Phone ALEX BARROS Unavailable PROBLEMS Type Condition ICD9-CM Code [id number] Code Onset Dates Condition Status W/U Status Risk SNOMED Code Notes Problem Lumbago with sciatica, left side M54.42 confirmed 204301200 Problem Anxiety disorder, unspecified F41.9 confirmed 863980890 Problem Lung nodule < 6cm on CT R91.1 confirmed 186755237 Problem Lumbago with sciatica, right side M54.41 confirmed 399783478 1 03279 Problem Gastroesophag eal reflux disease, esophagitis presence not specified K21.9 confirmed 077242961 Problem Panlobular emphysema J43.1 confirmed 6003685 Problem Hypothyroidis m (acquired) E03.9 confirmed 23676778 Problem Hypertriglyce ridemia E78.1 confirmed 119428015 Problem Bilateral neuropathy of upper extremities G56.93 confirmed 89558721 Problem Degenerative disc disease, cervical M50.30 confirmed 31356870 Problem Osteoarthriti s of spine with radiculopathy , cervical region M47.22 confirmed 576991007 Problem Obesity (BMI 30.0-34.9) E66.9 confirmed 819611574 1 96911 Problem Primary osteoarthriti s, right hand M19.041 confirmed 327938 2104 97187 Problem Essential hypertension I10 confirmed 06790842 Problem Primary osteoarthriti s, left hand M19.042 confirmed 4252651 001 26108 Problem Chronic pain syndrome G89.4 confirmed 337269582 Problem Seasonal allergic rhinitis, unspecified trigger J30.2 confirmed 234255151 Problem Nicotine dependence, uncomplicated , unspecified nicotine product type F17.200 confirmed 508148352 Problem Moderate persistent asthma without complication J45.40 confirmed 438528818 Problem Nocturnal hypoxia G47.34 confirmed 151618167 ALLERGIES Allergen (clinical drug ingredient) Drug/Non Drug Allergy documented on EMR Reaction Allergy Type Onset Date Status hydromorphone Dilaudid([facility] Code:[address]-36) dizziness Drug Allergy Active ENCOUNTERS from 1960 to 2022-12-12 Encounter Location Date Provider Diagnosis [facility] [address] [facility] [id number] [place] [address] 17 Dec, 2020 ALEX BARROS IMMUNIZATIONS Vaccine Route Administration Date Status FLUARIX QUAD (3 AND UP) 2016 IM Intramuscular Jun 11, 2017 Administered PRIVATE SHINGRIX (HERPES ZOS TER-2 DOSE) IM Intramuscular August 06, 2020 Administered STATE FUNDED TDAP (BOOSTRIX) IM Intramuscular Apr 21, 2019 Administered STATE FUNDED FLULUVAL QUAD 0 .5ML 6 MONTHS AND UP 2018 IM Intramuscular July 21, 2019 Administered PRIVATE FLU 22-23 (FLULAVAL) AGE 6MO AND UP IM Intramuscular Feb 19, 2022 Administered 1st Booster MODERNA Bivalent , COVID-19, 0.5mL IM Intramuscular Feb 19, 2022 Administered STATE FUNDED FLULUVAL QUAD 0 .5ML 6 MONTHS AND UP 2019 IM Intramuscular Apr 18, 2020 Administered STATE FUNDED FLULAVAL QUAD 0 .5ML ( 6 MO AND UP) 2020 IM Intramuscular August 05, 2021 Administered PRIVATE SHINGRIX (HERPES ZOS TER-2 DOSE) IM Intramuscular May 10, 2020 Administered influenza IIV3 (history) Unknown Feb 21, [...] Duration) Notes Start Date End Date Status Aspir-81 Active Metoprolol Tartrate 100 mg TAKE ONE TABLET BY MOUTH TWICE DAILY WITH FOOD FOR 90 DAYS for 90 Active Cyclobenzaprine HCl 10 mg TAKE ONE TABLE T BY MOUTH THREE TIMES DAILY for 30 Active Rocephin 1 GM Inject 1 GM Intramuscularly one time for 1 days Nov, Active Methocarbamol 750 MG 1 tablet Orally radha ry 8 hours as needed for 7 days Active Albuterol Sulfate HFA 108 (90 Base) MCG/ACT INHALE TWO PUFFS BY MOUTH EVERY 4 HOURS NEEDED FOR SHORTNESS OF BREATH for 17 Active Pulse Oximeter 1 test blood oxygen 2 times a day. DX: emphysema Jan, Active amLODIPine Besylate 10 mg TAKE ONE TABLE T BY MOUTH EVERY DAY for 30 Active Lansoprazole 30 mg TAKE ONE CAPSULE BY MOUTH EVERY DAY for 30 Active Diclofenac Sodium 1 % APPLY TO THE AFFEC FELICIA AREA(S) TWICE DAILY 2GM ABOVE WAIST 4GM BELOW for 30 Active Oxygen 2L as directed inhale a t night Active Cetirizine HCl 10 MG TAKE 1 TABLET BY MO UTH DAILY for 30 Active HYDROcodone-Acetaminophen 10-325 MG TAKE ONE TABLET BY MOUTH EVERY 8 HOURS NEEDED for 28 Nov, Active Montelukast Sodium 10 mg TAKE ONE TABLET BY MOUTH EVERY DAY for 30 Active Fluticasone Propionate 50 MCG/ACT INHALE 1 PUFF IN EACH NOSTRIL EVERY DAY for 30 Active Budesonide-Formoterol Fumarate 160-4.5 MCG/ACT INHALE TWO PUFFS BY MOUTH TWICE DAILY FOR THIRTY DAYS for 30 Active Sulfamethoxazole-Trimetho prim 800-160 MG 1 tablet Orally Twice a day for 10 days Nov, Active Fish Oil 1000 MG 1 capsule Orally Onc e a day Active Gabapentin 300 mg TAKE ONE CAPSULE BY MOUTH THREE TIMES DAILY for 28 Active Atorvastatin Calcium 80 mg TAKE 1 TABLET BY MOUTH DAILY for 30 Active REASON FOR VISIT Controlled Med Refill 01/02 MEDICAL (GENERAL) HISTORY Type Description Date Medical [...] Medication Name Sig Start Date Stop Date Sulfamethoxazole-Trimethopri m 800-160 MG 1 tablet Orally Twice a day for 10 days Nov, Rocephin 1 GM Inject 1 GM Intramus cularly one time for 1 days Nov, Next Appt Details Provider Name:ALEX Canales, 2022-12-12 01:40:00 PM, [address] , [id number], [place], [address], Provider Name:ALEX Canales, 2023-01-09 02:40:00 PM, [address] , [id number], [place], [address], Provider Name:ALEX Canales, 2023-02-12 10:40:00 AM, [address] , [id number], [place], [address], Insurance Providers Payer Name Payer Address Payer Phone Insured Name Patient Relationship to Insured Coverage Start Date Coverage End Date Subscriber Number Group Number ESTEE [employer] 19 [address] [address] [facility] [address] Pal Brewer Self - patient is the insured [id number] ESTEE [employer] [facility] 19 A[employer] Better Health [address] [employer] [facility] [address] [phone] Pal Brewer Self - patient is the insured [id number] Progressive Insurance [address] [facility] [address] Pal Brewer Self - patient is the insured [id number] MEDICATIONS ADMINISTERED Medication Instructions Date of Administration Dosag e cefTRIAXone Sodium Nov, 1000 mg
--- OUTSIDE RECORDS SUMMARY | 2023-02-01 11:20 | XMS REPORT ---
Author Author [facility] Address Unknown Phone Unavailable Care Team Providers Care Senior Mechanical Project Manager Name Role Phone ALEX BARROS Unavailable PROBLEMS Type Condition ICD9-CM Code [id number] Code Onset Dates Condition Status W/U Status Risk SNOMED Code Notes Problem Lumbago with sciatica, left side M54.42 confirmed 759963760 Problem Anxiety disorder, unspecified F41.9 confirmed 197979072 Problem Lung nodule < 6cm on CT R91.1 confirmed 089404702 Problem Lumbago with sciatica, right side M54.41 confirmed 586880248 1 61455 Problem Gastroesophag eal reflux disease, esophagitis presence not specified K21.9 confirmed 854229215 Problem Panlobular emphysema J43.1 confirmed 4434055 Problem Hypothyroidis m (acquired) E03.9 confirmed 47246150 Problem Hypertriglyce ridemia E78.1 confirmed 135578383 Problem Bilateral neuropathy of upper extremities G56.93 confirmed 11455609 Problem Degenerative disc disease, cervical M50.30 confirmed 13907681 Problem Osteoarthriti s of spine with radiculopathy , cervical region M47.22 confirmed 786866865 Problem Obesity (BMI 30.0-34.9) E66.9 confirmed 906102869 1 89308 Problem Primary osteoarthriti s, right hand M19.041 confirmed 789726 5697 60869 Problem Essential hypertension I10 confirmed 30814776 Problem Primary osteoarthriti s, left hand M19.042 confirmed 9275976 001 10696 Problem Chronic pain syndrome G89.4 confirmed 670570828 Problem Seasonal allergic rhinitis, unspecified trigger J30.2 confirmed 994050840 Problem Nicotine dependence, uncomplicated , unspecified nicotine product type F17.200 confirmed 005303067 Problem Moderate persistent asthma without complication J45.40 confirmed 432656670 Problem Nocturnal hypoxia G47.34 confirmed 623533268 ALLERGIES Allergen (clinical drug ingredient) Drug/Non Drug Allergy documented on EMR Reaction Allergy Type Onset Date Status hydromorphone Dilaudid([facility] Code:[address]-95) dizziness Drug Allergy Active ENCOUNTERS from 1960 to 2022-11-11 Encounter Location Date Provider Diagnosis [facility] [address] [facility] [id number] [place] [address] Nov, ALEX BARROS IMMUNIZATIONS Vaccine Route Administration Date Status STATE FUNDED FLULUVAL QUAD 0 .5ML 6 MONTHS AND UP 2018 IM Intramuscular July 21, 2019 Administered STATE FUNDED TDAP (BOOSTRIX) IM Intramuscular Apr 21, 2019 Administered influenza IIV3 (history) Unknown Feb 21, 2014 Adm inistered PRIVATE SHINGRIX (HERPES ZOS TER-2 DOSE) IM Intramuscular August 06, 2020 Administered STATE FUNDED FLULUVAL QUAD 0 .5ML 6 MONTHS AND UP 2019 IM Intramuscular Apr 18, 2020 Administered 1st Booster MODERNA Bivalent , COVID-19, 0.5mL IM Intramuscular Feb 19, 2022 Administered FLUARIX QUAD (3 AND UP) 2016 IM Intramuscular Jun 11, 2017 Administered PRIVATE FLU 22-23 (FLULAVAL) AGE 6MO [...] for 28 Oct, Active REASON FOR VISIT Controlled Med Refill MEDICAL (GENERAL) HISTORY Type Description Date Medical [...] BY MOUTH THREE TIMES DAILY for 28 amLODIPine Besylate 10 mg TAKE ONE TABLE T BY MOUTH EVERY DAY for 30 Next Appt Details Provider Name:ALEX Osmel IVÁN Canales, 2022-11-13 12:20:00 AM, [address] [facility], [id number], [place], [address], Insurance Providers Payer Name Payer Address Payer Phone Insured Name Patient Relationship to Insured Coverage Start Date Coverage End Date Subscriber Number Group Number ESTEE [employer] 19 [address] [address] [facility] [address] Pal Brewer Self - patient is the insured [id number] [facility] 19 [employer] Better Health [address] [facility] [address] Pal Brewer Self - patient is the insured [id number] Progressive Insurance [address] [facility] [address] Pal Brewer Self - patient is the insured [id number]
--- OUTSIDE RECORDS SUMMARY | 2023-02-01 11:20 | XMS REPORT ---
Author Author [facility] ter [facility] ter [facility] Address Unknown Phone Unavailable Care Team Providers Care Orthopedics Nurse Name Role Phone PREETHI YIN Unavailable PROBLEMS Type Condition ICD9-CM Code [id number] Code Onset Dates Condition Status SNOMED Code Notes Problem Chronic pain syndrome G89.4 Active 065125135 Problem Anxiety disorder, unspecified F41.9 Active 946817077 Problem Other chronic pain G89.29 Active 77454 001 Problem Gastroesophageal reflux disease, esophagitis presence not specified K21.9 Active 756590857 Problem Bilateral primary osteoarthritis of knee M17.0 Active 268865599 Problem Nocturnal oxygen desaturation G47.34 Active 319961785 Problem Lumbago with sciatica, left side M54.42 Active 680331293 Problem Lumbago with sciatica, right side M54.41 Active 853034995347353 Problem Lung nodule < 6cm on CT R91.1 Active 229874239 Problem Panlobular emphysema J43.1 Active 5482359 ALLERGIES Allergen (clinical drug ingredient) Drug/Non Drug Allergy documented on EMR Reaction Allergy Type Onset Date Status hydromorphone Dilaudid([facility] Code:[address]-51) dizziness Drug Allergy Active ENCOUNTERS from 1960 to 2020-03-26 Encounter Location Date Provider Diagnosis [facility] [address] [facility] [id number] [place] [address] Aug, PREETHI YIN IMMUNIZATIONS Vaccine Route Administration Date Status STATE FUNDED FLULUVAL QUAD 0 .5ML 6 MONTHS AND UP 2019 IM Intramuscular July 21, 2019 Administered STATE FUNDED TDAP (BOOSTRIX) IM Intramuscular Apr 21, 2019 Administered FLUARIX QUAD (3 AND UP) 2017 IM Intramuscular Jun 11, 2017 Administered influenza IIV3 (history) Unknown Feb 21, 2014 Adm inistered SOCIAL HISTORY Tobacco Use: Social History Observation [...] MEDICATIONS Medication SIG (Take, Route, Frequency, Duration) Start Date End Date Status Cetirizine HCl 10 MG TAKE 1 TABLET BY MO [facility] DAILY for 30 Active Diclofenac Sodium 1 % APPLY TO AFFECTED AREA TWICE DAILY for 15 Active Gabapentin 300 MG TAKE 2 CAPSULES BY M [facility] THREE TIMES DAILY FOR 30 DAYS for 30 Active Lansoprazole 30 MG 1 capsule Orally Onc e a day for 30 day(s) Active Singulair 10 MG 1 tablet Orally Once a day for 30 day(s) Active Flonase 50 MCG/ACT 1 spray in each nost ril Nasally Once a day for 30 Active Tiotropium [place]-Olodatero l 2.5-2.5 MCG/ACT 2 puffs Inhalation Once a day Active Albuterol Sulfate HFA 108 (9 0 Base) MCG/ACT INHALE 2 PUFFS BY MOUTH EVERY FOUR HOURS NEEDED FOR SHORTNESS OF BREATH for 17 Active Relafen DS 1000 MG TAKE 1 TABLET BY DMITRY TH DAILY for 30 Active Pulse Oximeter 1 test blood oxygen 2 times a day. DX: emphysema Jan, Active Nabumetone 750 MG 1 tablet Orally 2 ti mes a day Jul, Active Aspir-81 Active Duloxetine HCl 30 MG TAKE ONE CAPSULE BY MOUTH TWO TIMES DAILY for 30 Active Terbinafine HCl 1 % 1 application [employer] Repairer ally Once a day for 14 Active Amlodipine Besylate 10 MG TAKE 1 TABLET BY MOUTH DAILY FOR 30 DAYS for 30 Active Cyclobenzaprine HCl 10 mg 1 tablet Three times a day for 30 Active Hydrocodone-Acetaminophen 10-325 mg 1 tablet as needed Orally 3 times a day for 28 days Feb, Active Metoprolol Tartrate 100 MG TAKE ONE TABL ET BY MOUTH TWICE DAILY WITH FOOD for 30 Active Atorvastatin Calcium 80 MG 1 tablet Once a day for 30 Active REASON FOR VISIT Controlled 09/02 MEDICAL (GENERAL) HISTORY Type Description Date Medical [...] Chest Pain 08/2017 MENTAL STATUS No Information PLAN OF TREATMENT Medication Medication Name Sig Start Date Stop Date Pulse Oximeter 1 test blood oxygen 2 times a day. DX: emphysema Jan, Hydrocodone-Acetaminophen 10 -325 mg 1 tablet as needed Orally 3 times a day for 28 days Feb, Relafen DS 1000 MG TAKE 1 TABLET BY DMITRY DAILY for 30 Albuterol Sulfate HFA 108 (9 0 Base) MCG/ACT INHALE 2 PUFFS BY MOUTH EVERY FOUR HOURS NEEDED FOR SHORTNESS OF BREATH for 17 Gabapentin 300 MG TAKE 2 CAPSULES BY M OUTH THREE TIMES DAILY FOR 30 DAYS for 30 Diclofenac Sodium 1 % APPLY TO AFFECTED AREA TWICE DAILY for 15 Metoprolol Tartrate 100 MG TAKE ONE TABL ET BY MOUTH TWICE DAILY WITH FOOD for 30 Duloxetine HCl 30 MG TAKE ONE CAPSULE BY MOUTH TWO TIMES DAILY for 30 Atorvastatin Calcium 80 MG 1 tablet Once a day for 30 Amlodipine Besylate 10 MG TAKE 1 TABLET BY MOUTH DAILY FOR 30 DAYS for 30 Next Appt Details Provider Name:PREETHI Abdiaziz YIN , 2020-04-18 11:00:00 AM, [address] [facility], [id number], [place], [address], Insurance Providers Payer Name Payer Address Payer Phone Insured Name Patient Relationship to Insured Coverage Start Date Coverage End Date ESTEE A[employer]na [facility] 19 [address] [address] [place] [address] Rm Brewer self
--- OUTSIDE RECORDS SUMMARY | 2023-02-01 11:20 | XMS REPORT ---
Author Author [facility] ter [facility] ter [facility] Address Unknown Phone Unavailable Care Team Providers Care [employer] Name Role Phone ALEX BARROS Unavailable PROBLEMS Type Condition ICD9-CM Code [id number] Code Onset Dates Condition Status W/U Status Risk SNOMED Code Notes Problem Anxiety disorder, unspecified F41.9 confirmed 481016182 Problem Chronic pain syndrome G89.4 confirmed 038299918 Problem Lumbago with sciatica, right side M54.41 confirmed 766665916 1 55998 Problem Lumbago with sciatica, left side M54.42 confirmed 699863161 Problem Lung nodule < 6cm on CT R91.1 confirmed 144287960 Problem Panlobular emphysema J43.1 confirmed 7185332 Problem Hypertriglyce ridemia E78.1 confirmed 792614509 Problem Gastroesophag eal reflux disease, esophagitis presence not specified K21.9 confirmed 010704889 Problem Primary osteoarthriti s, right hand M19.041 confirmed 630395 9194 83647 Problem Bilateral neuropathy of upper extremities G56.93 confirmed 08576164 Problem Degenerative disc disease, cervical M50.30 confirmed 27234433 Problem Nocturnal hypoxia G47.34 confirmed 239343160 Problem Primary osteoarthriti s, left hand M19.042 confirmed 6210365 001 63397 Problem Obesity (BMI 30.0-34.9) E66.9 confirmed 472617991 1 92680 Problem Hypothyroidis m (acquired) E03.9 confirmed 24946696 Problem Osteoarthriti s of spine with radiculopathy , cervical region M47.22 confirmed 771916993 Problem Seasonal allergic rhinitis, unspecified trigger J30.2 confirmed 541020705 Problem Nicotine dependence, uncomplicated , unspecified nicotine product type F17.200 confirmed 189625650 Problem Moderate persistent asthma without complication J45.40 confirmed 717978264 ALLERGIES Allergen (clinical drug ingredient) Drug/Non Drug Allergy documented on EMR Reaction Allergy Type Onset Date Status hydromorphone Dilaudid([facility] Code:[address]-91) dizziness Drug Allergy Active ENCOUNTERS from 1960 to 2022-07-09 Encounter Location Date Provider Diagnosis [facility] [address] [facility] [id number] [place] [address] Jul, ALEX BARROS Encounter for immunization Z23 IMMUNIZATIONS Vaccine Route Administration Date Status influenza IIV3 (history) Unknown Feb 21, 2014 Adm inistered STATE FUNDED TDAP (BOOSTRIX) IM Intramuscular Apr 21, 2019 Administered 1st Booster MODERNA Bivalent , COVID-19, 0.5mL IM Intramuscular Feb 19, 2022 Administered PRIVATE FLU 22-23 (FLULAVAL) AGE 6MO AND UP IM Intramuscular Feb 19, 2022 Administered STATE FUNDED FLULAVAL QUAD 0 .5ML ( 6 MO AND UP) 2020 IM Intramuscular August 05, 2021 Administered STATE FUNDED FLULUVAL QUAD 0 .5ML 6 MONTHS AND UP 2019 IM Intramuscular Apr 18, 2020 Administered PRIVATE SHINGRIX (HERPES ZOS TER-2 DOSE) IM Intramuscular May 10, 2020 Administered STATE FUNDED FLULUVAL QUAD 0 .5ML 6 MONTHS AND UP 2018 IM Intramuscular July 21, 2019 Administered PRIVATE SHINGRIX (HERPES ZOS TER-2 DOSE) IM Intramuscular August 06, 2020 Administered FLUARIX QUAD (3 AND UP) [...] Duration) Notes Start Date End Date Status Gabapentin 300 mg TAKE ONE CAPSULE BY MOUTH THREE TIMES DAILY for 28 Active Symbicort 160-4.5 MCG/ACT 2 puffs Inhalation Twice a day for 30 days rinse mouth after each dose Aug, Active Pulse Oximeter 1 test blood oxygen 2 times a day. DX: emphysema Jan, Active Cyclobenzaprine HCl 10 mg TAKE ONE TABLET BY MOUTH THREE TIMES DAILY for 30 Active Atorvastatin Calcium 80 mg TAKE 1 TABLET BY MOUTH DAILY for 30 Active Aspir-81 Active Montelukast Sodium 10 mg TAKE ONE TABLET BY MOUTH EVERY DAY for 30 Active Metoprolol Tartrate 100 mg TAKE ONE TABLET BY MOUTH TWICE DAILY WITH FOOD FOR 90 DAYS for 90 Active amLODIPine Besylate 10 mg TAKE ONE TABLET BY MOUTH EVERY DAY for 30 Active Fluticasone Propionate 50 MCG/ACT INHALE 1 PUFF IN EACH NOSTRIL EVERY DAY for 30 Active Oxygen 2L as directed inhale at night Active Diclofenac Sodium 1 % APPLY TO THE AFFECTED AREA(S) TWICE DAILY 2GM ABOVE WAIST 4GM BELOW for 30 Active Cetirizine HCl 10 MG TAKE 1 TABLET BY MOUTH DAILY for 30 Active Lansoprazole 30 mg TAKE ONE CAPSULE BY MOUTH EVERY DAY for 30 Active HYDROcodone-Acetaminophe n 10-325 MG TAKE ONE TABLET BY MOUTH EVERY 8 HOURS NEEDED for 28 May, Active Albuterol Sulfate HFA 108 (90 Base) MCG/ACT INHALE TWO PUFFS BY MOUTH EVERY 4 HOURS NEEDED FOR SHORTNESS OF BREATH for 17 Active Fish Oil 1000 MG 1 capsule Orally Once a day Active REASON FOR VISIT Shingrix MEDICAL (GENERAL) HISTORY Type Description Date Medical [...] Assessment Notes Treatment Notes Treatment Clinical Notes Jul, Encounter for immunization (ICD-10 - Z23) PLAN OF TREATMENT Medication Medication Name Sig Start Date Stop Date Albuterol Sulfate HFA 108 (9 0 Base) MCG/ACT INHALE TWO PUFFS BY MOUTH EVERY 4 HOURS NEEDED FOR SHORTNESS OF BREATH for 17 HYDROcodone-Acetaminophen 10-325 MG TAKE ONE TABLET BY MOUTH EVERY 8 HOURS NEEDED for 28 May, Symbicort 160-4.5 MCG/ACT 2 puffs Inhala tion Twice a day for 30 days Aug, amLODIPine Besylate 10 mg TAKE ONE TABLE T BY MOUTH EVERY DAY for 30 Gabapentin 300 mg TAKE ONE CAPSULE BY MOUTH THREE TIMES DAILY for 28 Next Appt Details Provider Name:ALEX Canales, 2022-08-14 12:20:00 AM, [address] [facility], [id number], [place], [address], Insurance Providers Payer Name Payer Address Payer Phone Insured Name Patient Relationship to Insured Coverage Start Date Coverage End Date Subscriber Number Group Number ESTEE [employer] 19 [address] [address] [facility] [address] Pal Brewer Self - patient is the insured [id number] Progressive Insurance [address] [facility] [address] Pal Brewer Self - patient is the insured [id number] [facility] 19 [employer] Better Health [address] [facility] [address] Pal Brewer Self - patient is the insured [id number]
--- OUTSIDE RECORDS SUMMARY | 2023-02-01 11:20 | XMS REPORT ---
Author Author [facility] ter [facility] ter [facility] Address Unknown Phone Unavailable Care Team Providers Care Fruit Checker Name Role Phone ALEX BARROS Unavailable PROBLEMS Type Condition ICD9-CM Code [id number] Code Onset Dates Condition Status W/U Status Risk SNOMED Code Notes Problem Lumbago with sciatica, left side M54.42 confirmed 601218820 Problem Anxiety disorder, unspecified F41.9 confirmed 485217577 Problem Lung nodule < 6cm on CT R91.1 confirmed 114333892 Problem Lumbago with sciatica, right side M54.41 confirmed 654028550 1 92636 Problem Gastroesophag eal reflux disease, esophagitis presence not specified K21.9 confirmed 934132526 Problem Panlobular emphysema J43.1 confirmed 7633310 Problem Hypothyroidis m (acquired) E03.9 confirmed 23747899 Problem Hypertriglyce ridemia E78.1 confirmed 811797834 Problem Bilateral neuropathy of upper extremities G56.93 confirmed 31224184 Problem Degenerative disc disease, cervical M50.30 confirmed 76752775 Problem Osteoarthriti s of spine with radiculopathy , cervical region M47.22 confirmed 793179621 Problem Obesity (BMI 30.0-34.9) E66.9 confirmed 219029898 1 63381 Problem Primary osteoarthriti s, right hand M19.041 confirmed 858151 4261 17968 Problem Essential hypertension I10 confirmed 55780640 Problem Primary osteoarthriti s, left hand M19.042 confirmed 8638461 001 47787 Problem Chronic pain syndrome G89.4 confirmed 160687642 Problem Seasonal allergic rhinitis, unspecified trigger J30.2 confirmed 989165960 Problem Nicotine dependence, uncomplicated , unspecified nicotine product type F17.200 confirmed 054108479 Problem Moderate persistent asthma without complication J45.40 confirmed 035781784 Problem Nocturnal hypoxia G47.34 confirmed 629088098 ALLERGIES Allergen (clinical drug ingredient) Drug/Non Drug Allergy documented on EMR Reaction Allergy Type Onset Date Status hydromorphone Dilaudid(FORMERLY NAMED [facility] Code:[address]-70) dizziness Drug Allergy Active ENCOUNTERS from 1960 to 2022-09-22 Encounter Location Date Provider Diagnosis [facility] [address] [facility] [id number] [place] [address] September, ALEX BARROS IMMUNIZATIONS Vaccine Route Administration Date Status STATE FUNDED TDAP (BOOSTRIX) IM Intramuscular Apr 21, 2019 Administered STATE FUNDED FLULAVAL QUAD 0 .5ML ( 6 MO AND UP) 2020 IM Intramuscular August 05, 2021 Administered PRIVATE SHINGRIX (HERPES ZOS TER-2 DOSE) IM Intramuscular May 10, 2020 Administered PRIVATE SHINGRIX (HERPES ZOS TER-2 DOSE) IM Intramuscular August 06, 2020 Administered 1st Booster MODERNA Bivalent , COVID-19, 0.5mL IM Intramuscular Feb 19, 2022 Administered PRIVATE FLU 22-23 (FLULAVAL) AGE 6MO AND UP IM Intramuscular Feb 19, 2022 Administered influenza IIV3 (history) Unknown Feb 21, 2014 Adm inistered STATE FUNDED FLULUVAL QUAD 0 .5ML 6 [...] Duration) Notes Start Date End Date Status Pulse Oximeter 1 test blood oxygen 2 times a day. DX: emphysema Jan, Active Cetirizine HCl 10 MG TAKE 1 TABLET BY MOUTH DAILY for 30 Active Fluticasone Propionate 50 MCG/ACT INHALE 1 PUFF IN EACH NOSTRIL EVERY DAY for 30 Active Symbicort 160-4.5 MCG/ACT 2 puffs Inhalation Twice a day for 30 days rinse mouth after each dose Aug, Active Fish Oil 1000 MG 1 capsule Orally Once a day Active Albuterol Sulfate HFA 108 (90 Base) MCG/ACT INHALE TWO PUFFS BY MOUTH EVERY 4 HOURS NEEDED FOR SHORTNESS OF BREATH for 17 Active Lansoprazole 30 mg TAKE ONE CAPSULE BY MOUTH EVERY DAY for 30 Active amLODIPine Besylate 10 mg TAKE ONE TABLET BY MOUTH EVERY DAY for 30 Active Oxygen 2L as directed inhale at night Active Atorvastatin Calcium 80 mg TAKE 1 TABLET BY MOUTH DAILY for 30 Active Diclofenac Sodium 1 % APPLY TO THE AFFECTED AREA(S) TWICE DAILY 2GM ABOVE WAIST 4GM BELOW for 30 Active Montelukast Sodium 10 mg TAKE ONE TABLET BY MOUTH EVERY DAY for 30 Active Gabapentin 300 mg TAKE ONE CAPSULE BY MOUTH THREE TIMES DAILY for 28 Active Aspir-81 Active Metoprolol Tartrate 100 mg TAKE ONE TABLET BY MOUTH TWICE DAILY WITH FOOD FOR 90 DAYS for 90 Active HYDROcodone-Acetaminophe n 10-325 MG TAKE ONE TABLET BY MOUTH EVERY 8 HOURS NEEDED for 28 Aug, Active Cyclobenzaprine HCl 10 mg TAKE ONE TABLET BY MOUTH THREE TIMES DAILY for 30 Active REASON FOR VISIT Controlled Med Refill 10/12 MEDICAL (GENERAL) HISTORY Type Description Date Medical [...] Medication Name Sig Start Date Stop Date HYDROcodone-Acetaminophen 10-325 MG TAKE ONE TABLET BY MOUTH EVERY 8 HOURS NEEDED for 28 Aug, Metoprolol Tartrate 100 mg TAKE ONE TABL ET BY MOUTH TWICE DAILY WITH FOOD FOR 90 DAYS for 90 Symbicort 160-4.5 MCG/ACT 2 puffs Inhala tion Twice a day for 30 days Aug, Gabapentin 300 mg TAKE ONE CAPSULE BY MOUTH THREE TIMES DAILY for 28 Next Appt Details Provider Name:ALEX Canales, 2022-11-13 12:20:00 AM, [address] [facility], [id number], [place], [address], Insurance Providers Payer Name Payer Address Payer Phone Insured Name Patient Relationship to Insured Coverage Start Date Coverage End Date Subscriber Number Group Number Progressive Insurance [address] [facility] [address] Pal Brewer Self - patient is the insured [id number] [facility] 19 [employer] [address] [facility] [address] [phone] Pal Brewer Self - patient is the insured [id number] A[employer] 19 [address] [address] [facility] [address] Pal Brewer Self - patient is the insured [id number]
--- OUTSIDE RECORDS SUMMARY | 2023-02-01 11:20 | XMS REPORT ---
Author Author [facility] ter [facility] ter [facility] Address Unknown Phone Unavailable Care Team Providers Care Process Control Operator Name Role Phone ALEX BARROS Unavailable PROBLEMS Type Condition ICD9-CM Code [id number] Code Onset Dates Condition Status W/U Status Risk SNOMED Code Notes Problem Anxiety disorder, unspecified F41.9 confirmed 335510041 Problem Chronic pain syndrome G89.4 confirmed 742517371 Problem Lumbago with sciatica, right side M54.41 confirmed 558118321 1 57742 Problem Lumbago with sciatica, left side M54.42 confirmed 566009853 Problem Lung nodule < 6cm on CT R91.1 confirmed 659006559 Problem Panlobular emphysema J43.1 confirmed 2672845 Problem Hypertriglyce ridemia E78.1 confirmed 160881844 Problem Gastroesophag eal reflux disease, esophagitis presence not specified K21.9 confirmed 095973354 Problem Primary osteoarthriti s, right hand M19.041 confirmed 740258 7231 65962 Problem Bilateral neuropathy of upper extremities G56.93 confirmed 42731979 Problem Degenerative disc disease, cervical M50.30 confirmed 65253192 Problem Nocturnal hypoxia G47.34 confirmed 035233571 Problem Primary osteoarthriti s, left hand M19.042 confirmed 7070369 001 63677 Problem Obesity (BMI 30.0-34.9) E66.9 confirmed 540689069 1 05011 Problem Hypothyroidis m (acquired) E03.9 confirmed 95471298 Problem Osteoarthriti s of spine with radiculopathy , cervical region M47.22 confirmed 663366184 Problem Seasonal allergic rhinitis, unspecified trigger J30.2 confirmed 580240162 Problem Nicotine dependence, uncomplicated , unspecified nicotine product type F17.200 confirmed 097900349 Problem Moderate persistent asthma without complication J45.40 confirmed 901026674 ALLERGIES Allergen (clinical drug ingredient) Drug/Non Drug Allergy documented on EMR Reaction Allergy Type Onset Date Status hydromorphone Dilaudid([facility] Code:[address]-93) dizziness Drug Allergy Active ENCOUNTERS from 1960 to 2022-07-21 Encounter Location Date Provider Diagnosis [facility] [address] [facility] [address] [id number] [place] [address] Jul, ALEX BARROS IMMUNIZATIONS Vaccine Route Administration Date [...] Intramuscular May 10, 2020 Administered STATE FUNDED FLULAVAL QUAD 0 [...] 1 capsule Orally Once a day Active Fluticasone Propionate 50 MCG/ACT INHALE 1 [...] MOUTH DAILY for 30 Active Aspir-81 Active Lansoprazole 30 mg TAKE ONE CAPSULE BY MOUTH EVERY DAY for 30 Active amLODIPine Besylate 10 mg TAKE ONE TABLET BY MOUTH EVERY DAY for 30 Active Albuterol Sulfate HFA 108 (90 Base) MCG/ACT INHALE TWO PUFFS BY MOUTH EVERY 4 HOURS NEEDED FOR SHORTNESS OF BREATH for 17 Active Diclofenac Sodium 1 % APPLY TO THE AFFECTED AREA(S) TWICE DAILY 2GM ABOVE WAIST 4GM BELOW for 30 Active Pulse Oximeter 1 test blood oxygen 2 times a day. DX: emphysema Jan, Active Gabapentin 300 mg TAKE ONE CAPSULE BY MOUTH THREE TIMES DAILY for 28 Active Metoprolol Tartrate 100 mg TAKE ONE TABLET BY MOUTH TWICE DAILY WITH FOOD FOR 90 DAYS for 90 Active Cetirizine HCl 10 MG TAKE 1 TABLET BY MOUTH DAILY for 30 Active HYDROcodone-Acetaminophe n 10-325 MG TAKE ONE TABLET BY MOUTH EVERY 8 HOURS NEEDED for 28 Jun, Active REASON FOR VISIT Controlled Med Refill 08/17 MEDICAL (GENERAL) HISTORY Type Description Date Medical [...] Medication Name Sig Start Date Stop Date amLODIPine Besylate 10 mg TAKE ONE TABLE T BY MOUTH EVERY DAY for 30 Albuterol Sulfate HFA 108 (9 0 Base) MCG/ACT INHALE TWO PUFFS BY MOUTH EVERY 4 HOURS NEEDED FOR SHORTNESS OF BREATH for 17 HYDROcodone-Acetaminophen 10-325 MG TAKE ONE TABLET BY MOUTH EVERY 8 HOURS NEEDED for 28 Jun, Gabapentin 300 mg TAKE ONE CAPSULE BY MOUTH THREE TIMES DAILY for 28 Symbicort 160-4.5 MCG/ACT 2 puffs Inhala tion Twice a day for 30 days Aug, Next Appt Details Provider Name:ALEX Canales, 2022-08-14 12:20:00 AM, [address] [facility], [id number], [place], [address], Insurance Providers Payer Name Payer Address Payer Phone Insured Name Patient Relationship to Insured Coverage Start Date Coverage End Date Subscriber Number Group Number ESTEE [employer] [address] [address] [facility] [address] Pal Brewer Self - patient is the insured [id number] [facility] 19 A[employer] Better Health [address] [facility] [address] Pal Brewer Self - patient is the insured [id number] Progressive Insurance [address] [facility] [address] Pal Brewer Self - patient is the insured [id number]
--- OUTSIDE RECORDS SUMMARY | 2023-02-01 11:20 | XMS REPORT ---
Author Author [facility] ter [facility] ter [facility] Address Unknown Phone Unavailable Care Team Providers Care Inside Sales Agent Name Role Phone ALEX BARROS Unavailable PROBLEMS Type Condition ICD9-CM Code [id number] Code Onset Dates Condition Status W/U Status Risk SNOMED Code Notes Problem Anxiety disorder, unspecified F41.9 confirmed 030702951 Problem Chronic pain syndrome G89.4 confirmed 706997059 Problem Lumbago with sciatica, right side M54.41 confirmed 998708433 1 69611 Problem Lumbago with sciatica, left side M54.42 confirmed 487135974 Problem Lung nodule < 6cm on CT R91.1 confirmed 561468957 Problem Panlobular emphysema J43.1 confirmed 4475618 Problem Hypertriglyce ridemia E78.1 confirmed 497393181 Problem Gastroesophag eal reflux disease, esophagitis presence not specified K21.9 confirmed 573684562 Problem Primary osteoarthriti s, right hand M19.041 confirmed 509362 8124 38222 Problem Bilateral neuropathy of upper extremities G56.93 confirmed 61513863 Problem Degenerative disc disease, cervical M50.30 confirmed 36330582 Problem Nocturnal hypoxia G47.34 confirmed 407771469 Problem Primary osteoarthriti s, left hand M19.042 confirmed 2949554 001 32371 Problem Obesity (BMI 30.0-34.9) E66.9 confirmed 785205835 1 08334 Problem Hypothyroidis m (acquired) E03.9 confirmed 40610589 Problem Osteoarthriti s of spine with radiculopathy , cervical region M47.22 confirmed 792857869 Problem Seasonal allergic rhinitis, unspecified trigger J30.2 confirmed 652063952 Problem Nicotine dependence, uncomplicated , unspecified nicotine product type F17.200 confirmed 368886723 Problem Moderate persistent asthma without complication J45.40 confirmed 263176596 ALLERGIES Allergen (clinical drug ingredient) Drug/Non Drug Allergy documented on EMR Reaction Allergy Type Onset Date Status hydromorphone Dilaudid([facility] Code:[address]-33) dizziness Drug Allergy Active ENCOUNTERS from 1960 to 2022-08-12 Encounter Location Date Provider Diagnosis [facility] [address] [facility] [id number] [place] [address] Jul, ALEX BARROS IMMUNIZATIONS Vaccine Route Administration Date Status PRIVATE SHINGRIX (HERPES ZOS TER-2 DOSE) IM Intramuscular May 10, 2020 Administered STATE FUNDED TDAP (BOOSTRIX) IM Intramuscular Apr 21, 2019 Administered STATE FUNDED FLULUVAL QUAD 0 .5ML 6 MONTHS AND UP 2019 IM Intramuscular Apr 18, 2020 Administered FLUARIX QUAD (3 AND UP) 2016 IM Intramuscular Jun 11, 2017 Administered PRIVATE FLU 22-23 (FLULAVAL) AGE 6MO AND UP IM Intramuscular Feb 19, 2022 Administered 1st Booster MODERNA Bivalent , COVID-19, 0.5mL IM Intramuscular Feb 19, 2022 Administered influenza IIV3 (history) Unknown Feb 21, 2014 Adm inistered STATE FUNDED FLULAVAL QUAD 0 .5ML ( 6 MO AND UP) 2020 IM Intramuscular August 05, 2021 Administered STATE FUNDED FLULUVAL QUAD 0 .5ML 6 MONTHS AND UP 2018 IM Intramuscular July 21, 2019 Administered PRIVATE SHINGRIX (HERPES ZOS TER-2 DOSE) IM Intramuscular August 06, 2020 Administered SOCIAL HISTORY Sex Assigned At [...] 1 capsule Orally Once a day Active Pulse Oximeter 1 test blood oxygen 2 times a day. DX: emphysema Jan, Active Cyclobenzaprine HCl 10 mg TAKE ONE TABLET BY MOUTH THREE TIMES DAILY for 30 Active HYDROcodone-Acetaminophe n 10-325 MG TAKE ONE TABLET BY MOUTH EVERY 8 HOURS NEEDED for 28 Jul, Active Aspir-81 Active Montelukast Sodium 10 mg TAKE ONE TABLET BY MOUTH EVERY DAY for 30 Active Gabapentin 300 mg TAKE ONE CAPSULE BY MOUTH THREE TIMES DAILY for 28 Active amLODIPine Besylate 10 mg TAKE ONE TABLET BY MOUTH EVERY DAY for 30 Active Fluticasone Propionate 50 MCG/ACT INHALE 1 PUFF IN EACH NOSTRIL EVERY DAY for 30 Active Atorvastatin Calcium 80 mg TAKE 1 TABLET BY MOUTH DAILY for 30 Active Lansoprazole 30 mg TAKE ONE CAPSULE BY MOUTH EVERY DAY for 30 Active Cetirizine HCl 10 MG TAKE 1 TABLET BY MOUTH DAILY for 30 Active Albuterol Sulfate HFA 108 (90 Base) MCG/ACT INHALE TWO PUFFS BY MOUTH EVERY 4 HOURS NEEDED FOR SHORTNESS OF BREATH for 17 Active Metoprolol Tartrate 100 mg TAKE ONE TABLET BY MOUTH TWICE DAILY WITH FOOD FOR 90 DAYS for 90 Active Oxygen 2L as directed inhale at night Active Diclofenac Sodium 1 % APPLY TO THE AFFECTED AREA(S) TWICE DAILY 2GM ABOVE WAIST 4GM BELOW for 30 Active REASON FOR VISIT Resources MEDICAL (GENERAL) HISTORY Type Description Date Medical [...] MOUTH EVERY 8 HOURS NEEDED for 28 Jul, Gabapentin 300 mg TAKE ONE CAPSULE BY MOUTH THREE TIMES DAILY for 28 Albuterol Sulfate HFA 108 (9 0 Base) MCG/ACT INHALE TWO PUFFS BY MOUTH EVERY 4 HOURS NEEDED FOR SHORTNESS OF BREATH for 17 amLODIPine Besylate 10 mg TAKE ONE TABLE T BY MOUTH EVERY DAY for 30 Symbicort 160-4.5 MCG/ACT 2 puffs Inhala tion Twice a day for 30 days Aug, Next Appt Details Provider Name:ALEX Canales, 2022-08-14 12:20:00 AM, [address] [facility], [id number], [place], [address], Insurance Providers Payer Name Payer Address Payer Phone Insured Name Patient Relationship to Insured Coverage Start Date Coverage End Date Subscriber Number Group Number ESTEE [employer] 19 [address] [address] [facility] [address] Pal Brewer Self - patient is the insured [id number] [facility] 19 [employer] Better Health [address] [facility] [address] Pal Brewer Self - patient is the insured [id number] Progressive Insurance [address] [facility] [address] Pal Brewer Self - patient is the insured [id number]
--- OUTSIDE RECORDS SUMMARY | 2023-02-01 11:20 | XMS REPORT ---
Author Author [facility] ter [facility] ter [facility] Address Unknown Phone Unavailable Care Team Providers Care Mallet Cutter Name Role Phone ALEX BARROS Unavailable PROBLEMS Type Condition ICD9-CM Code [id number] Code Onset Dates Condition Status W/U Status Risk SNOMED Code Notes Problem Lumbago with sciatica, left side M54.42 confirmed 423936901 Problem Anxiety disorder, unspecified F41.9 confirmed 195886084 Problem Lung nodule < 6cm on CT R91.1 confirmed 917050555 Problem Lumbago with sciatica, right side M54.41 confirmed 983118599 1 32049 Problem Gastroesophag eal reflux disease, esophagitis presence not specified K21.9 confirmed 289451611 Problem Panlobular emphysema J43.1 confirmed 1912401 Problem Hypothyroidis m (acquired) E03.9 confirmed 20868744 Problem Hypertriglyce ridemia E78.1 confirmed 745225514 Problem Bilateral neuropathy of upper extremities G56.93 confirmed 81331587 Problem Degenerative disc disease, cervical M50.30 confirmed 10772915 Problem Osteoarthriti s of spine with radiculopathy , cervical region M47.22 confirmed 208956454 Problem Obesity (BMI 30.0-34.9) E66.9 confirmed 654892305 1 77680 Problem Primary osteoarthriti s, right hand M19.041 confirmed 144138 7608 16852 Problem Essential hypertension I10 confirmed 25023932 Problem Primary osteoarthriti s, left hand M19.042 confirmed 9654491 001 64696 Problem Chronic pain syndrome G89.4 confirmed 448972109 Problem Seasonal allergic rhinitis, unspecified trigger J30.2 confirmed 935430134 Problem Nicotine dependence, uncomplicated , unspecified nicotine product type F17.200 confirmed 616478410 Problem Moderate persistent asthma without complication J45.40 confirmed 823131614 Problem Nocturnal hypoxia G47.34 confirmed 081975443 ALLERGIES Allergen (clinical drug ingredient) Drug/Non Drug Allergy documented on EMR Reaction Allergy Type Onset Date Status hydromorphone Dilaudid([facility] Code:[address]-69) dizziness Drug Allergy Active ENCOUNTERS from 1960 to 2022-10-27 Encounter Location Date Provider Diagnosis [facility] [address] [facility] [id number] [place] [address] Nov, ALEX BARROS IMMUNIZATIONS Vaccine Route Administration [...] Duration) Notes Start Date End Date Status HYDROcodone-Acetaminophe n 10-325 MG TAKE ONE TABLET BY MOUTH EVERY 8 HOURS NEEDED for 28 September, Active Gabapentin 300 mg TAKE ONE CAPSULE BY MOUTH THREE TIMES DAILY for 28 Active Oxygen 2L as directed inhale at night Active Symbicort 160-4.5 MCG/ACT 2 puffs Inhalation Twice a day for 30 days rinse mouth after each dose Aug, Active Lansoprazole 30 mg TAKE ONE CAPSULE BY MOUTH EVERY DAY for 30 Active amLODIPine Besylate 10 mg TAKE ONE TABLET BY MOUTH EVERY DAY for 30 Active Albuterol Sulfate HFA 108 (90 Base) MCG/ACT INHALE TWO PUFFS BY MOUTH EVERY 4 HOURS NEEDED FOR SHORTNESS OF BREATH for 17 Active Fluticasone Propionate 50 MCG/ACT INHALE 1 PUFF IN EACH NOSTRIL EVERY DAY for 30 Active Montelukast Sodium 10 mg TAKE ONE TABLET BY MOUTH EVERY DAY for 30 Active Aspir-81 Active Fish Oil 1000 MG 1 capsule Orally Once a day Active Cetirizine HCl 10 MG TAKE 1 TABLET BY MOUTH DAILY for 30 Active Atorvastatin Calcium 80 mg TAKE 1 TABLET BY MOUTH DAILY for 30 Active Cyclobenzaprine HCl 10 mg TAKE ONE TABLET BY MOUTH THREE TIMES DAILY for 30 Active Metoprolol Tartrate 100 mg TAKE ONE TABLET BY MOUTH TWICE DAILY WITH FOOD FOR 90 DAYS for 90 Active Diclofenac Sodium 1 % APPLY TO THE AFFECTED AREA(S) TWICE DAILY 2GM ABOVE WAIST 4GM BELOW for 30 Active Pulse Oximeter 1 test blood oxygen 2 times a day. DX: emphysema Jan, Active REASON FOR VISIT med reifll request MEDICAL (GENERAL) HISTORY Type Description Date [...] Medication Name Sig Start Date Stop Date Fluticasone Propionate 50 MCG/ACT INHALE 1 PUFF IN EACH NOSTRIL EVERY DAY for 30 Metoprolol Tartrate 100 mg TAKE ONE TABL ET BY MOUTH TWICE DAILY WITH FOOD FOR 90 DAYS for 90 HYDROcodone-Acetaminophen 10 -325 MG TAKE ONE TABLET BY MOUTH EVERY 8 HOURS NEEDED for 28 September, Gabapentin 300 mg TAKE ONE CAPSULE BY MOUTH THREE TIMES DAILY for 28 Symbicort 160-4.5 MCG/ACT 2 puffs Inhala tion Twice a day for 30 days Aug, Next Appt Details Provider Name:ROSALVA MALDONADO, 2022-10-28 08:40:00 AM, [address], [id number], [place], [address], Provider Name:ALEX Canales, 2022-11-13 12:20:00 AM, [address], [id number], [place], [address], Insurance Providers Payer Name Payer Address Payer Phone Insured Name Patient Relationship to Insured Coverage Start Date Coverage End Date Subscriber Number Group Number ESTEE [employer] 19 [address] [address] [facility] [address] Pal Brewer Self - patient is the insured [id number] Progressive Insurance [address] [facility] [address] Pal Brewer Self - patient is the insured [id number] [facility] 19 [employer] Better [employer] [address] [facility] [address] Pal Brewer Self - patient is the insured [id number]
--- OUTSIDE RECORDS SUMMARY | 2023-02-01 11:20 | XMS REPORT ---
Author Author [facility] ter [facility] ter [facility] Address Unknown Phone Unavailable Care Team Providers Care General Contractor Name Role Phone NGA JOSE Unavailable PROBLEMS Type Condition ICD9-CM Code NME35-ZH Code Onset Dates Condition Status W/U Status Risk SNOMED Code Notes Problem Anxiety disorder, unspecified F41.9 confirmed 743276890 Problem Chronic pain syndrome G89.4 confirmed 451506503 Problem Lumbago with sciatica, right side M54.41 confirmed 327202517 1 91680 Problem Lumbago with sciatica, left side M54.42 confirmed 885629911 Problem Lung nodule < 6cm on CT R91.1 confirmed 786113712 Problem Panlobular emphysema J43.1 confirmed 7899842 Problem Hypertriglyce ridemia E78.1 confirmed 065499689 Problem Gastroesophag eal reflux disease, esophagitis presence not specified K21.9 confirmed 815912613 Problem Primary osteoarthriti s, right hand M19.041 confirmed 477043 5394 16981 Problem Bilateral neuropathy of upper extremities G56.93 confirmed 69371188 Problem Degenerative disc disease, cervical M50.30 confirmed 13423069 Problem Nocturnal hypoxia G47.34 confirmed 326933232 Problem Primary osteoarthriti s, left hand M19.042 confirmed 5605637 001 38051 Problem Obesity (BMI 30.0-34.9) E66.9 confirmed 771611448 1 57622 Problem Hypothyroidis m (acquired) E03.9 confirmed 07111111 Problem Osteoarthriti s of spine with radiculopathy , cervical region M47.22 confirmed 925131107 Problem Seasonal allergic rhinitis, unspecified trigger J30.2 confirmed 473158359 Problem Nicotine dependence, uncomplicated , unspecified nicotine product type F17.200 confirmed 214699035 Problem Moderate persistent asthma without complication J45.40 confirmed 036154422 ALLERGIES Allergen (clinical drug ingredient) Drug/Non Drug Allergy documented on EMR Reaction Allergy Type Onset Date Status hydromorphone Dilaudid([facility] Code:[address]-02) dizziness Drug Allergy Active ENCOUNTERS from 1960 to 2022-07-13 Encounter Location Date Provider Diagnosis [facility] [address] [facility] [id number] [place] [address] Jul, NGA JOSE Dental examination Z01.20 and Caries K02.9 IMMUNIZATIONS Vaccine Route Administration Date Status PRIVATE [...] No Information VITAL SIGNS Height 71 in Jul, Height-cm 180.34 cm Jul, Blood pressure systolic 140 mmHg Jul, Blood pressure diastolic 70 mmHg Jul, MEDICATIONS Medication SIG (Take, Route, Frequency, Duration) [...] for 28 Jun, Active REASON FOR VISIT Hole in tooth- causing pain MOUNA MEDICAL (GENERAL) HISTORY Type Description Date Medical [...] Notes Treatment Notes Treatment Clinical Notes Jul, Dental examination (ICD-10 - Z01.20) Jul, Caries (ICD-10 - K02.9) PLAN OF TREATMENT Medication Medication Name Sig [...] for 30 days Aug, Next Appt Details prn Reason:Return to clinic PRN or WALLY Provider Name:ALEX Canales, 2022-08-14 12:20:00 AM, [address] [facility], [id number], [place], [address], Follow Up:prnReturn to clinic PRN or WALLY Insurance Providers Payer Name Payer Address Payer Phone Insured Name Patient Relationship to Insured Coverage Start Date Coverage End Date Subscriber Number Group Number Progressive [employer] [address] [place] [address] Pal Brewer Self - patient is the insured [id number] [employer] 19 [address] [address] [facility] [place] [address] Pal Brewer Self - patient is the insured [id number] [employer] 19 Aetna Better Health [address] [facility] [address] Pal Brewer Self - patient is the insured [id number]
--- OUTSIDE RECORDS SUMMARY | 2023-02-01 11:20 | XMS REPORT ---
Author Author [facility] ter [facility] ter [facility] Address Unknown Phone Unavailable Care Team Providers Care Director Trial Name Role Phone ALEX BARROS Unavailable PROBLEMS Type Condition ICD9-CM Code BGT75-VT Code Onset Dates Condition Status W/U Status Risk SNOMED Code Notes Problem Lumbago with sciatica, left side M54.42 confirmed 223076448 Problem Anxiety disorder, unspecified F41.9 confirmed 900684031 Problem Lung nodule < 6cm on CT R91.1 confirmed 552661701 Problem Lumbago with sciatica, right side M54.41 confirmed 115836264 1 81430 Problem Gastroesophag eal reflux disease, esophagitis presence not specified K21.9 confirmed 530082467 Problem Panlobular emphysema J43.1 confirmed 6397297 Problem Hypothyroidis m (acquired) E03.9 confirmed 22595134 Problem Hypertriglyce ridemia E78.1 confirmed 179671726 Problem Bilateral neuropathy of upper extremities G56.93 confirmed 99801768 Problem Degenerative disc disease, cervical M50.30 confirmed 75820519 Problem Osteoarthriti s of spine with radiculopathy , cervical region M47.22 confirmed 300637672 Problem Obesity (BMI 30.0-34.9) E66.9 confirmed 475454661 1 43543 Problem Primary osteoarthriti s, right hand M19.041 confirmed 663008 7521 56786 Problem Essential hypertension I10 confirmed 19988902 Problem Primary osteoarthriti s, left hand M19.042 confirmed 9724801 001 20030 Problem Chronic pain syndrome G89.4 confirmed 161844772 Problem Seasonal allergic rhinitis, unspecified trigger J30.2 confirmed 041891213 Problem Nicotine dependence, uncomplicated , unspecified nicotine product type F17.200 confirmed 533914780 Problem Moderate persistent asthma without complication J45.40 confirmed 920122000 Problem Nocturnal hypoxia G47.34 confirmed 765688845 ALLERGIES Allergen (clinical drug ingredient) Drug/Non Drug Allergy documented on EMR Reaction Allergy Type Onset Date Status hydromorphone Dilaudid([facility] Code:[address]-11) dizziness Drug Allergy Active ENCOUNTERS from 1960 to 2022-09-29 Encounter Location Date Provider Diagnosis [facility] [address] [facility] [id number] [place] [address] Oct, ALEX BARROS IMMUNIZATIONS Vaccine Route Administration Date Status influenza IIV3 (history) Unknown Feb 21, 2014 Adm inistered FLUARIX QUAD (3 AND UP) 2016 IM Intramuscular Jun 11, 2017 Administered PRIVATE SHINGRIX (HERPES ZOS TER-2 DOSE) IM Intramuscular May 10, 2020 Administered STATE FUNDED TDAP (BOOSTRIX) IM Intramuscular Apr 21, 2019 Administered PRIVATE FLU 22-23 (FLULAVAL) [...] DAILY for 30 Active REASON FOR VISIT med refill request [...] Name:ALEX Canales, 2022-11-13 12:20:00 AM, [address] [facility], [id number], [place], [address], Insurance Providers Payer Name Payer Address Payer Phone Insured Name Patient Relationship to Insured Coverage Start Date Coverage End Date Subscriber Number Group Number ESTEE [employer] 19 [address] [address] [facility] [address] Pal Brewer Self - patient is the insured [id number] [facility] 19 Aetna Better Health [address] [facility] [address] Pal Brewer Self - patient is the insured [id number] Progressive Insurance [address] [facility] [address] Pal Brewer Self - patient is the insured [id number]
--- OUTSIDE RECORDS SUMMARY | 2023-02-01 11:20 | XMS REPORT ---
Author Author [facility] ter [facility] ter [facility] Address Unknown Phone Unavailable Care Team Providers Care Account Liaison Name Role Phone ALEX BARROS Unavailable PROBLEMS Type Condition ICD9-CM Code PEB15-SD Code Onset Dates Condition Status W/U Status Risk SNOMED Code Notes Problem Lumbago with sciatica, left side M54.42 confirmed 289290899 Problem Anxiety disorder, unspecified F41.9 confirmed 184580224 Problem Lung nodule < 6cm on CT R91.1 confirmed 158520654 Problem Lumbago with sciatica, right side M54.41 confirmed 412361822 1 08266 Problem Gastroesophag eal reflux disease, esophagitis presence not specified K21.9 confirmed 888985339 Problem Panlobular emphysema J43.1 confirmed 1040609 Problem Hypothyroidis m (acquired) E03.9 confirmed 58014924 Problem Hypertriglyce ridemia E78.1 confirmed 796678954 Problem Bilateral neuropathy of upper extremities G56.93 confirmed 25948403 Problem Degenerative disc disease, cervical M50.30 confirmed 11073299 Problem Osteoarthriti s of spine with radiculopathy , cervical region M47.22 confirmed 010527448 Problem Obesity (BMI 30.0-34.9) E66.9 confirmed 603153880 1 64584 Problem Primary osteoarthriti s, right hand M19.041 confirmed 349660 3781 87814 Problem Essential hypertension I10 confirmed 49795622 Problem Primary osteoarthriti s, left hand M19.042 confirmed 1674445 001 02939 Problem Chronic pain syndrome G89.4 confirmed 865515578 Problem Seasonal allergic rhinitis, unspecified trigger J30.2 confirmed 335309128 Problem Nicotine dependence, uncomplicated , unspecified nicotine product type F17.200 confirmed 076477174 Problem Moderate persistent asthma without complication J45.40 confirmed 303611599 Problem Nocturnal hypoxia G47.34 confirmed 863588772 ALLERGIES Allergen (clinical drug ingredient) Drug/Non Drug Allergy documented on EMR Reaction Allergy Type Onset Date Status hydromorphone Dilaudid([facility] Code:[address]-06) dizziness Drug Allergy Active ENCOUNTERS from 1960 to 2022-08-25 Encounter Location Date Provider Diagnosis [facility] [address] [facility] [id number] [place] [address] Aug, 2020 ALEX BARROS IMMUNIZATIONS Vaccine Route Administration [...] 2016 IM Intramuscular Jun 11, 2017 Administered STATE FUNDED FLULAVAL QUAD 0 .5ML ( 6 MO AND UP) 2020 IM Intramuscular August 05, 2021 Administered PRIVATE SHINGRIX (HERPES ZOS TER-2 DOSE) IM Intramuscular August 06, 2020 Administered influenza IIV3 (history) Unknown Feb [...] rinse mouth after each dose Aug, Active Albuterol Sulfate HFA 108 (90 Base) [...] ABOVE WAIST 4GM BELOW for 30 Active Aspir-81 Active HYDROcodone-Acetaminophe n 10-325 MG TAKE ONE TABLET BY MOUTH EVERY 8 HOURS NEEDED for 28 Jul, Active Fish Oil 1000 MG 1 capsule Orally Once a day Active Cyclobenzaprine HCl 10 mg TAKE ONE TABLET BY MOUTH THREE TIMES DAILY for 30 Active REASON FOR VISIT Hydrocodone- 09/14 MEDICAL (GENERAL) HISTORY Type Description Date Medical [...] Medication Name Sig Start Date Stop Date Symbicort 160-4.5 MCG/ACT 2 puffs Inhala tion Twice a day for 30 days Aug, Next Appt Details Provider Name:ALEX Bolivar IVÁN Canales, 2022-11-13 12:20:00 AM, [address] [facility], [id number], [place], [address], Insurance Providers Payer Name Payer Address Payer Phone Insured Name Patient Relationship to Insured Coverage Start Date Coverage End Date Subscriber Number Group Number ESTEE [employer] [facility] 19 Aetna [employer] [address] [facility] [address] Pal Brewer Self - patient is the insured [id number] Progressive Insurance [address] [facility] [address] Pal Brewer Self - patient is the insured [id number] [employer]et [employer] 19 [address] [address] [facility] [address] Pal Brewer Self - patient is the insured [id number]
--- OUTSIDE RECORDS SUMMARY | 2023-02-01 11:20 | XMS REPORT ---
Author Author [facility] Address Unknown Phone Unavailable Care Team Providers Care Tack Puller Name Role Phone PREETHI YIN Unavailable PROBLEMS Type Condition ICD9-CM Code DDL50-WW Code Onset Dates Condition Status SNOMED Code Notes Problem Chronic pain syndrome G89.4 Active 423921325 Problem Anxiety disorder, unspecified F41.9 Active 160028037 Problem Other chronic pain G89.29 Active 71112 001 Problem Gastroesophageal reflux disease, esophagitis presence not specified K21.9 Active 485017725 Problem Bilateral primary osteoarthritis of knee M17.0 Active 172130625 Problem Nocturnal oxygen desaturation G47.34 Active 871080286 Problem Lumbago with sciatica, left side M54.42 Active 868705956 Problem Lumbago with sciatica, right side M54.41 Active 300311568568483 Problem Lung nodule < 6cm on CT R91.1 Active 016532604 Problem Panlobular emphysema J43.1 Active 8791789 ALLERGIES Allergen (clinical drug ingredient) Drug/Non Drug Allergy documented on EMR Reaction Allergy Type Onset Date Status hydromorphone Dilaudid([facility] Code:[address]-83) dizziness Drug Allergy Active ENCOUNTERS from 1960 to 2020-04-15 Encounter Location Date Provider Diagnosis [facility] [address] [facility] [id number] [place] [address] September, PREETHI YIN IMMUNIZATIONS Vaccine Route Administration Date Status STATE FUNDED TDAP (BOOSTRIX) IM Intramuscular Apr 21, 2019 Administered FLUARIX QUAD (3 AND UP) 2017 IM Intramuscular Jun 11, 2017 Administered STATE FUNDED FLULUVAL QUAD 0 .5ML 6 MONTHS AND UP 2018 IM Intramuscular July 21, 2019 Administered influenza IIV3 (history) Unknown [...] 10 MG TAKE 1 TABLET BY MO [facility] DAILY for 30 Active Diclofenac Sodium 1 [...] Once a day for 30 Active Tiotropium [place]-Olodaterol 2.5-2.5 MCG/ACT 2 puffs Inhalation Once a day Active Relafen DS 1000 MG TAKE 1 TABLET BY DMITRY DAILY for 30 Active Cyclobenzaprine HCl 10 MG TAKE 1 TABLET BY MOUTH THREE TIMES DAILY FOR 30 DAYS for 30 Active Pulse Oximeter 1 test blood oxygen 2 times a day. DX: emphysema Jan, Active Nabumetone 750 MG 1 tablet Orally 2 ti mes a day Jul, Active Aspir-81 Active Duloxetine HCl 30 MG TAKE ONE CAPSULE BY MOUTH TWO TIMES DAILY for 30 Active Terbinafine HCl 1 % 1 application Externally Once a day for 14 Active Amlodipine Besylate 10 MG TAKE 1 TABLET BY MOUTH DAILY FOR 30 DAYS for 30 Active Albuterol Sulfate HFA 108 (90 Base) MCG/ACT INHALE 2 PUFFS BY MOUTH EVERY FOUR HOURS NEEDED FOR SHORTNESS OF BREATH for 17 Active Hydrocodone-Acetaminophen 10-325 mg 1 tablet as needed Orally 3 times a day for 28 days Mar, Active Metoprolol Tartrate 100 MG TAKE ONE TABL ET BY MOUTH TWICE DAILY WITH FOOD for 30 Active Atorvastatin Calcium 80 MG 1 tablet Once a day for 30 Active REASON FOR VISIT Controlled 09/30 MEDICAL (GENERAL) HISTORY Type Description Date Medical [...] times a day for 28 days Mar, Cyclobenzaprine HCl 10 MG TAKE 1 TABLET BY MOUTH THREE TIMES DAILY FOR 30 DAYS for 30 Gabapentin 300 MG TAKE 2 CAPSULES BY M OUTH THREE TIMES DAILY FOR 30 DAYS for 30 Relafen DS 1000 MG TAKE 1 TABLET BY DMITRY TH DAILY for 30 Diclofenac Sodium 1 % APPLY TO AFFECTED AREA TWICE DAILY for 15 Atorvastatin Calcium 80 MG 1 tablet Once a day for 30 Metoprolol Tartrate 100 MG TAKE ONE TABL ET BY MOUTH TWICE DAILY WITH FOOD for 30 Duloxetine HCl 30 MG TAKE ONE CAPSULE BY MOUTH TWO TIMES DAILY for 30 Albuterol Sulfate HFA 108 (9 0 Base) MCG/ACT INHALE 2 PUFFS BY MOUTH EVERY FOUR HOURS NEEDED FOR SHORTNESS OF BREATH for 17 Amlodipine Besylate 10 MG TAKE 1 TABLET BY MOUTH DAILY FOR 30 DAYS for 30 Next Appt Details Provider Name:PREETHI Abdiaziz YIN , 2020-04-18 11:00:00 AM, [address] [facility], [id number], [place], [address], Insurance Providers Payer Name Payer Address Payer Phone Insured Name Patient Relationship to Insured Coverage Start Date Coverage End Date ESTEE Aetna [facility] 19 [address] [address] [place] [address] Rm Brewer
--- OUTSIDE RECORDS SUMMARY | 2023-02-01 11:20 | XMS REPORT ---
Author Author [facility] ter [facility] ter [facility] Address Unknown Phone Unavailable Care Team Providers Care Relationship Manager Name Role Phone ALEX BARROS Unavailable PROBLEMS Type Condition ICD9-CM Code UPG07-IC Code Onset Dates Condition Status W/U Status Risk SNOMED Code Notes Problem Anxiety disorder, unspecified F41.9 confirmed 071176675 Problem Chronic pain syndrome G89.4 confirmed 722945377 Problem Lumbago with sciatica, right side M54.41 confirmed 016180760 1 30609 Problem Lumbago with sciatica, left side M54.42 confirmed 690077809 Problem Lung nodule < 6cm on CT R91.1 confirmed 780049441 Problem Panlobular emphysema J43.1 confirmed 9771207 Problem Hypertriglyce ridemia E78.1 confirmed 502362012 Problem Gastroesophag eal reflux disease, esophagitis presence not specified K21.9 confirmed 963578617 Problem Primary osteoarthriti s, right hand M19.041 confirmed 693992 1138 60878 Problem Bilateral neuropathy of upper extremities G56.93 confirmed 91908385 Problem Degenerative disc disease, cervical M50.30 confirmed 82464369 Problem Nocturnal hypoxia G47.34 confirmed 643566424 Problem Primary osteoarthriti s, left hand M19.042 confirmed 6303166 001 88487 Problem Obesity (BMI 30.0-34.9) E66.9 confirmed 292879512 1 81837 Problem Hypothyroidis m (acquired) E03.9 confirmed 05540671 Problem Osteoarthriti s of spine with radiculopathy , cervical region M47.22 confirmed 113243907 Problem Seasonal allergic rhinitis, unspecified trigger J30.2 confirmed 555875052 Problem Nicotine dependence, uncomplicated , unspecified nicotine product type F17.200 confirmed 614289475 Problem Moderate persistent asthma without complication J45.40 confirmed 768141301 ALLERGIES Allergen (clinical drug ingredient) Drug/Non Drug Allergy documented on EMR Reaction Allergy Type Onset Date Status hydromorphone Dilaudid([facility] Code:[address]-13) dizziness Drug Allergy Active ENCOUNTERS from 1960 to 2022-06-21 Encounter Location Date Provider Diagnosis [facility] [address] [facility] [id number] [place] [address] Jul, ALEX BARROS IMMUNIZATIONS Vaccine Route Administration [...] Once a day Active REASON FOR VISIT Controlled Med Refill [...] CAPSULE BY MOUTH THREE TIMES DAILY for Next Appt Details Provider Name:ALEX Canales, 2022-08-14 12:20:00 AM, [address] [facility], [id number], [place], [address], Insurance Providers Payer Name Payer Address Payer Phone Insured Name Patient Relationship to Insured Coverage Start Date Coverage End Date Subscriber Number Group Number ESTEE [employer] 19 [address] [address] [facility] [phone] Pal Brewer Self - patient is the insured [id number] Progressive Insurance [address] [facility] [address] Pal Brewer Self - patient is the insured [id number] [facility] 19 Aetna Better Health [address] [facility] [address] [phone] Pal Brewer Self - patient is the insured [id number]
--- OUTSIDE RECORDS SUMMARY | 2023-02-01 11:20 | XMS REPORT ---
Author Author [facility] ter [facility] Address Unknown Phone Unavailable Care Team Providers Care Vehicle Washer Name Role Phone ALEX BARROS Unavailable PROBLEMS Type Condition ICD9-CM Code RQI87-TT Code Onset Dates Condition Status W/U Status Risk SNOMED Code Notes Problem Lumbago with sciatica, left side M54.42 confirmed 925091031 Problem Anxiety disorder, unspecified F41.9 confirmed 935449364 Problem Lung nodule < 6cm on CT R91.1 confirmed 435613974 Problem Lumbago with sciatica, right side M54.41 confirmed 915938092 1 39526 Problem Gastroesophag eal reflux disease, esophagitis presence not specified K21.9 confirmed 892456881 Problem Panlobular emphysema J43.1 confirmed 8845279 Problem Hypothyroidis m (acquired) E03.9 confirmed 20432599 Problem Hypertriglyce ridemia E78.1 confirmed 200592333 Problem Bilateral neuropathy of upper extremities G56.93 confirmed 58527504 Problem Degenerative disc disease, cervical M50.30 confirmed 30443268 Problem Osteoarthriti s of spine with radiculopathy , cervical region M47.22 confirmed 926424223 Problem Obesity (BMI 30.0-34.9) E66.9 confirmed 776128301 1 15129 Problem Primary osteoarthriti s, right hand M19.041 confirmed 067715 9560 01901 Problem Essential hypertension I10 confirmed 35638276 Problem Primary osteoarthriti s, left hand M19.042 confirmed 5866385 001 53868 Problem Chronic pain syndrome G89.4 confirmed 988063203 Problem Seasonal allergic rhinitis, unspecified trigger J30.2 confirmed 843201171 Problem Nicotine dependence, uncomplicated , unspecified nicotine product type F17.200 confirmed 375372243 Problem Moderate persistent asthma without complication J45.40 confirmed 148294352 Problem Nocturnal hypoxia G47.34 confirmed 640445138 ALLERGIES Allergen (clinical drug ingredient) Drug/Non Drug Allergy documented on EMR Reaction Allergy Type Onset Date Status hydromorphone Dilaudid([facility] Code:[address]-60) dizziness Drug Allergy Active ENCOUNTERS from 1960 to 2022-09-07 Encounter Location Date Provider Diagnosis [facility] [address] [facility] [id number] [place] [address] September, ALEX BARROS IMMUNIZATIONS Vaccine Route Administration [...] Name:ALEX Canales, 2022-11-13 12:20:00 AM, [address] [facility], [id number], [place], [address], Insurance Providers Payer Name Payer Address Payer Phone Insured Name Patient Relationship to Insured Coverage Start Date Coverage End Date Subscriber Number Group Number ESTEE [facility] [employer] 19 [address] [address] [facility] [address] Pal Brewer Self - patient is the insured [id number] Progressive Insurance [address] [facility] [address] Pal Brewer Self - patient is the insured [id number] [facility] 19 Aetna [employer] [address] [facility] [address] Pal Brewer Self - patient is the insured [id number]
--- OUTSIDE RECORDS SUMMARY | 2023-02-01 11:20 | XMS REPORT ---
Author Author [facility] ter [facility] ter [facility] Address Unknown Phone Unavailable Care Team Providers Care Yarn Mercerizer Operator Helper Name Role Phone ALEX BARROS Unavailable PROBLEMS Type Condition ICD9-CM Code [id number] Code Onset Dates Condition Status W/U Status Risk SNOMED Code Notes Problem Lumbago with sciatica, left side M54.42 confirmed 100808679 Problem Anxiety disorder, unspecified F41.9 confirmed 793578978 Problem Lung nodule < 6cm on CT R91.1 confirmed 312119983 Problem Lumbago with sciatica, right side M54.41 confirmed 804245991 1 54456 Problem Gastroesophag eal reflux disease, esophagitis presence not specified K21.9 confirmed 211058901 Problem Panlobular emphysema J43.1 confirmed 1487965 Problem Hypothyroidis m (acquired) E03.9 confirmed 20232326 Problem Hypertriglyce ridemia E78.1 confirmed 516687172 Problem Bilateral neuropathy of upper extremities G56.93 confirmed 47166904 Problem Degenerative disc disease, cervical M50.30 confirmed 83274223 Problem Osteoarthriti s of spine with radiculopathy , cervical region M47.22 confirmed 620777328 Problem Obesity (BMI 30.0-34.9) E66.9 confirmed 059892951 1 82006 Problem Primary osteoarthriti s, right hand M19.041 confirmed 987929 2028 06853 Problem Essential hypertension I10 confirmed 54413011 Problem Primary osteoarthriti s, left hand M19.042 confirmed 5239505 001 36408 Problem Chronic pain syndrome G89.4 confirmed 607015359 Problem Seasonal allergic rhinitis, unspecified trigger J30.2 confirmed 898170985 Problem Nicotine dependence, uncomplicated , unspecified nicotine product type F17.200 confirmed 831269816 Problem Moderate persistent asthma without complication J45.40 confirmed 695409054 Problem Nocturnal hypoxia G47.34 confirmed 493924708 ALLERGIES Allergen (clinical drug ingredient) Drug/Non Drug Allergy documented on EMR Reaction Allergy Type Onset Date Status hydromorphone Dilaudid([facility] Code:[address]-02) dizziness Drug Allergy Active ENCOUNTERS from 1960 to 2022-11-07 Encounter Location Date Provider Diagnosis [facility] [address] [facility] [id number] [address] Nov, ALEX BARROS IMMUNIZATIONS Vaccine Route Administration Date Status 1st Booster MODERNA Bivalent , COVID-19, 0.5mL [...] for 28 Oct, Active REASON FOR VISIT med refill request [...] 08/2017 Hospitalization History L1 compression fracture - [place] 11/06 MENTAL STATUS No Information PLAN OF [...] for 30 Next Appt Details Provider Name:ALEX Canales, 2022-11-13 12:20:00 AM, [address] [facility], [id number], [place], [address], Insurance Providers Payer Name Payer Address Payer Phone Insured Name Patient Relationship to Insured Coverage Start Date Coverage End Date Subscriber Number Group Number [employer] [facility] [employer] [address] [facility][note 3] [id number] [phone] Pal Brewer Self - patient is the insured [id number] [employer] [address] [facility] [address] Pal Brewer Self - patient is the insured [id number] [facility] 19 [address] [address] [facility] [address] Pal Brewer Self - patient is the insured [id number]
--- OUTSIDE RECORDS SUMMARY | 2023-02-01 11:20 | XMS REPORT ---
Author Author [facility] ter [facility] ter [facility] Address Unknown Phone Unavailable Care Team Providers Care Water Service Supervisor Name Role Phone ALEX BARROS Unavailable PROBLEMS Type Condition ICD9-CM Code [id number] Code Onset Dates Condition Status W/U Status Risk SNOMED Code Notes Problem Lumbago with sciatica, left side M54.42 confirmed 737597546 Problem Anxiety disorder, unspecified F41.9 confirmed 684209709 Problem Lung nodule < 6cm on CT R91.1 confirmed 032441379 Problem Lumbago with sciatica, right side M54.41 confirmed 124498743 1 78800 Problem Gastroesophag eal reflux disease, esophagitis presence not specified K21.9 confirmed 818214688 Problem Panlobular emphysema J43.1 confirmed 1330364 Problem Hypothyroidis m (acquired) E03.9 confirmed 10242773 Problem Hypertriglyce ridemia E78.1 confirmed 105896868 Problem Bilateral neuropathy of upper extremities G56.93 confirmed 74920937 Problem Degenerative disc disease, cervical M50.30 confirmed 81545097 Problem Osteoarthriti s of spine with radiculopathy , cervical region M47.22 confirmed 655806214 Problem Obesity (BMI 30.0-34.9) E66.9 confirmed 929141977 1 96733 Problem Primary osteoarthriti s, right hand M19.041 confirmed 150298 7804 94846 Problem Essential hypertension I10 confirmed 76175066 Problem Primary osteoarthriti s, left hand M19.042 confirmed 1229782 001 11429 Problem Chronic pain syndrome G89.4 confirmed 087418966 Problem Seasonal allergic rhinitis, unspecified trigger J30.2 confirmed 260249757 Problem Nicotine dependence, uncomplicated , unspecified nicotine product type F17.200 confirmed 434366783 Problem Moderate persistent asthma without complication J45.40 confirmed 739321609 Problem Nocturnal hypoxia G47.34 confirmed 698973370 ALLERGIES Allergen (clinical drug ingredient) Drug/Non Drug Allergy documented on EMR Reaction Allergy Type Onset Date Status hydromorphone Dilaudid([facility] Code:[address]-25) dizziness Drug Allergy Active ENCOUNTERS from 1960 to 2022-09-02 Encounter Location Date Provider Diagnosis [facility] [address] [facility] [id number] [address] Aug, ALEX BARROS Primary osteoarthritis, left hand M19.042 ; Left hand pain M79.642 ; Bone cyst of hand M85.649 ; Trigger finger, left little finger M65.352 ; Lumbago with sciatica, left side M54.42 ; Lumbago with sciatica, right side M54.41 and Other chronic pain G89.29 IMMUNIZATIONS Vaccine Route Administration Date Status PRIVATE [...] in Aug, Height-cm 180.34 cm Aug, Weight 233 lbs Aug, Weight-kg 105.69 kg Aug, Temperature 96.7 degrees Fahrenheit Aug, Heart Rate 71 bpm Aug, Respiratory Rate 16 bpm Aug, Oximetry 97 % Aug, BMI 32.49 kg/m2 Aug, Blood pressure systolic 136 mmHg Aug, Blood pressure diastolic 84 mmHg Aug, MEDICATIONS Medication SIG (Take, Route, [...] DAILY for 30 Active REASON FOR VISIT hand pain/injection. PT states that he has been having hand pain in the left hand. Rocio Leach MA MEDICAL (GENERAL) HISTORY Type [...] Notes Treatment Notes Treatment Clinical Notes Aug, Primary osteoarthritis, left hand (ICD-10 - M19.042) Aug, Left hand pain (ICD-10 - M79.642) Aug, Bone cyst of hand (ICD-10 - M85.649) Aug, Trigger finger, left little finger (ICD-10 - M65.352) Aug, Lumbago with sciatica, left side (ICD-10 - M54.42) Aug, Lumbago with sciatica, right side (ICD-10 - M54.41) Aug, Other chronic pain (ICD-10 - G89.29) PLAN OF TREATMENT Medication Medication Name Sig Start Date Stop Date Symbicort 160-4.5 MCG/ACT 2 puffs Inhala tion Twice a day for 30 days Aug, Next Appt Details as scheduled Reason: Provider Name:ALEX Canales 2022-11-13 12:20:00 AM, [address] [facility], [id number], [place], [address], Insurance Providers Payer Name Payer Address Payer Phone Insured Name Patient Relationship to Insured Coverage Start Date Coverage End Date Subscriber Number Group Number [employer] [address] [facility] [address] Pal Brewer Self - patient is the insured [id number] [facility] 19 [address] [address] [facility] [address] Pal Brewer Self - patient is the insured [id number] [facility] 19 [employer] [address] [facility] [address] [phone] Pal Brewer Self - patient is the insured [id number]
--- OUTSIDE RECORDS SUMMARY | 2023-02-01 11:20 | XMS REPORT | Clinical Summary ---
Author Author [facility] Organization [facility] Address Unknown Phone Unavailable Care Team Providers Care Nuclear Monitoring Technician Name Role Phone Tori Pino MD Unavailable [phone] Database, Physician Not In PCP Unava ilable Source Comments Some departments are not documenting in the electronic medical record. If you do not see the information that you expected, contact Release of Information in the Health Information Management department at [phone] for further assistance in locating additional records.[facility] Allergies Active Allergy Reactions Criticality Noted Date Comments Hydromorphone UNKNOWN Low 11/12/2015 Medications Medication Sig Dispensed Refills Start Date End Date Status albuterol (VENTOLIN HFA, PROAIR HFA) 90 mcg/actuation inhaler Inhale 2 Puffs by mouth every 6 hours as needed for Wheezing. 0 Active amLODIPine (NORVASC) 10 mg tablet Take 10 mg by mouth daily. 0 Active atorvastatin (LIPITOR) 80 mg tablet Take 80 mg by mouth daily. 0 Active captopril (CAPOTEN) 25 mg tablet Take 25 mg by mouth three times daily. 0 Active diazepam (VALIUM) 10 mg tablet Take 10 mg by mouth every 6 hours as needed for Anxiety. [address](+) (PREVACID) 30 mg capsule Take 30 mg by mouth daily. 0 Active fluticasone (FLONASE) 50 mcg/actuation nasal spray Apply 2 Sprays to each nostril as directed daily. 0 Active tiotropium-olodaterol 2.5-2.5 mcg/actuation mist Inhale by mouth. 0 Active morphine SR (MS CONTIN; ORAMORPH SR) 60 mg tabletIndications:160 in the moring 130 at bedtime Take 160 mg by mouth every 12 hours Indications: 160 in the moring 130 at bedtime 0 Active HYDROcodone/acetaminoph en(+) (LORTAB, NORCO) 10/325 mg tablet Take 1 Tab by mouth every 6 hours as needed for Pain 0 Active baclofen (LIORESAL) 10 mg tablet Take 10 mg by mouth three times daily. [address] (VOLTAREN) 75 mg tablet Take 75 mg by mouth twice daily. 0 Active gabapentin (NEURONTIN) 300 mg capsuleIndications:Idio pathic polyneuropathy Take 2 Caps by mouth three times daily. 180 Cap 6 03/14/[address] (CYMBALTA) 30 mg capsuleIndications:Idio pathic polyneuropathy,Depressi on, unspecified depression type Take 1 Cap by mouth daily. 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 11/12/2015 01/07/2016 Spondylolisthesis of cervical region 11/12/2015 01/07/2016 Surgical History Surgery Date Site/Laterality Comments NECK SURGERY LUMBAR SPINE SURGERY 4 BACK SURGERYS SHOULDER SURGERY 2016 Bilateral APPENDECTOMY Medical History Medical History Date Comments COPD (chronic obstructive pulmonary disease) (HC C) Hypertension Arthritis Anxiety disorder Depression Family History Medical History Relation Name Comments Unknown to Patient Father Heart Disease Mother Relation Name Status Comments Father Mother Social History Tobacco Use Types Packs/Day Years Used Date Smoking Tobacco: Every Day Cigarettes 0.5 Smokeless Tobacco: Never Tobacco Cessation:Ready to Q uit: Yes; Counseling Given: Yes Alcohol Use Standard Drinks/Week Comments No 0 (1 standard drink = 0.6 oz pur e alcohol) Sex and Gender Information Value Date Recorded Sex Assigned at Not on file Gender Identity Not on file Sexual Orientation Not on file Obstetrics History Last Filed Vital Signs Vital Sign Reading Time Taken Comments Blood Pressure 155/97 07/07/2016 11:10 AM FLOOR HELPER Pulse 103 07/07/2016 11:10 AM FLOOR HELPER Temperature 36.7 C (98 F) 07/07/2016 11: 10 AM FLOOR HELPER Respiratory Rate 18 07/07/2016 11:1 0 AM FLOOR HELPER Oxygen Saturation 97% 07/07/2016 11: 10 AM FLOOR HELPER Inhaled Oxygen Concentration - - Weight 100.2 kg (220 lb 12.8 oz) 2016 11:10 AM FLOOR HELPER Height 180.3 cm (5' 11") 07/07/2016 11: 10 AM FLOOR HELPER Body Mass Index 30.8 07/07/2016 11:10 AM FLOOR HELPER Plan of Treatment Health Maintenance Due Date Last Done Comments COVID-19 VACCINE (#1) 06/26/1961 HIV SCREENING 12/25/1975 DTAP/TDAP VACCINES (1 - Tdap) 1978 HEPATITIS C SCREENING 1978 PHYSICAL (COMPREHENSIVE) EXAM 1978 COLORECTAL CANCER SCREENING 2005 SHINGLES RECOMBINANT VACCINE (1 of 2) 2010 INFLUENZA VACCINE (#1) 2023 PNEUMOCOCCAL VACCINE 0-64 YRS Aged Out No longer eligible based on patient's age to complete this topic Care Teams Nuclear Monitoring Technician Relationship Specialty Start Date End Date Database, Physician Not In PCP - General 04/30/16 Tori Pino MD [address] [place] [address] Neurological Surgery 11/09/15
--- OUTSIDE RECORDS SUMMARY | 2023-02-01 11:20 | XMS REPORT ---
Author Author [facility] ter [facility] ter [facility] Address Unknown Phone Unavailable Care Team Providers Care Surveillance Supervisor Name Role Phone ALEX BARROS Unavailable PROBLEMS Type Condition ICD9-CM Code [id number] Code Onset Dates Condition Status W/U Status Risk SNOMED Code Notes Problem Anxiety disorder, unspecified F41.9 confirmed 551969982 Problem Chronic pain syndrome G89.4 confirmed 277157062 Problem Lumbago with sciatica, right side M54.41 confirmed 656387304 1 19243 Problem Lumbago with sciatica, left side M54.42 confirmed 009486163 Problem Lung nodule < 6cm on CT R91.1 confirmed 383455398 Problem Panlobular emphysema J43.1 confirmed 1127938 Problem Hypertriglyce ridemia E78.1 confirmed 922033749 Problem Gastroesophag eal reflux disease, esophagitis presence not specified K21.9 confirmed 048162054 Problem Primary osteoarthriti s, right hand M19.041 confirmed 679193 8437 37356 Problem Bilateral neuropathy of upper extremities G56.93 confirmed 06313998 Problem Degenerative disc disease, cervical M50.30 confirmed 10901938 Problem Nocturnal hypoxia G47.34 confirmed 733818182 Problem Primary osteoarthriti s, left hand M19.042 confirmed 0403445 001 30987 Problem Obesity (BMI 30.0-34.9) E66.9 confirmed 441922610 1 21796 Problem Hypothyroidis m (acquired) E03.9 confirmed 15120005 Problem Osteoarthriti s of spine with radiculopathy , cervical region M47.22 confirmed 490488645 Problem Seasonal allergic rhinitis, unspecified trigger J30.2 confirmed 770482704 Problem Nicotine dependence, uncomplicated , unspecified nicotine product type F17.200 confirmed 949130377 Problem Moderate persistent asthma without complication J45.40 confirmed 516827033 ALLERGIES Allergen (clinical drug ingredient) Drug/Non Drug Allergy documented on EMR Reaction Allergy Type Onset Date Status hydromorphone Dilaudid([facility] Code:[address]-63) dizziness Drug Allergy Active ENCOUNTERS from 1960 to 2022-07-28 Encounter Location Date Provider Diagnosis [facility] [address] [facility] [id number] [place] [address] Jul, ALEX BARROS Chronic pain syndrom e G89.4 ; Lumbago with sciatica, left side M54.42 ; Lumbago with sciatica, right side M54.41 ; Primary osteoarthritis, right hand M19.041 ; Primary osteoarthritis, left hand M19.042 ; Hypothyroidism (acquired) E03.9 and Dry skin L85.3 IMMUNIZATIONS Vaccine Route Administration Date Status 1st [...] DOSE) IM Intramuscular August 06, 2020 Administered PRIVATE SHINGRIX (HERPES ZOS TER-2 [...] 71 in Jul, Height-cm 180.34 cm Jul, Weight 232 lbs Jul, Weight-kg 105.23 kg Jul, Temperature 99 degrees Fahrenheit Jul, Heart Rate 76 bpm Jul, Respiratory Rate 18 bpm Jul, Oximetry 97 % Jul, BMI 32.35 kg/m2 Jul, Blood pressure systolic 138 mmHg Jul, Blood pressure diastolic 88 mmHg Jul, MEDICATIONS Medication SIG (Take, Route, [...] 8 HOURS NEEDED for 28 Jun, Active PROCEDURES from 1960 to 2022-07-28 Procedure Date Ordered Date Performed Result Body Sit e ROUTINE VENIPUNCTURE 2020-08-15 2020-08-15 N/A REASON FOR VISIT Pain Management. PT states that his left hand keeps falling asleep and swelling up. Pt is requesting refills of a cream due to rash. Rocio Leach MA, Needs controlled agreement DT MEDICAL (GENERAL) HISTORY Type Description Date Medical [...] Notes Treatment Notes Treatment Clinical Notes Jul, Chronic pain syndrom e (ICD-10 - G89.4) Continue hydrocodone Jul, Lumbago with sciatica, left side (ICD-10 - M54.42) Jul, Lumbago with sciatica, right side (ICD-10 - M54.41) Jul, Primary osteoarthritis, right hand (ICD-10 - M19.041) Jul, Primary osteoarthritis, left hand (ICD-10 - M19.042) Jul, Hypothyroidism (acquired) (ICD-10 - E03.9) Jul, Dry skin (ICD-10 - L85.3) Jul, Other Will continues the terms of the [...] Twice a day for 30 days Aug, Treatment Notes Assessment Notes Clinical Notes Chronic pain syndrome Continue hydrocodo ne Next Appt Details 3 Months Reason:Pain Provider Name:ALEX Canales, 2022-08-14 12:20:00 AM, [address] [facility], [id number], [place], [address], Follow Up:3 MonthsPain Insurance Providers Payer Name Payer Address Payer Phone Insured Name Patient Relationship to Insured Coverage Start Date Coverage End Date Subscriber Number Group Number ESTEE [employer] 19 [address] [address] [facility] [address] Pal Brewer Self - patient is the insured [id number] [employer] [address] [facility] [address] Pal Brewer Self - patient is the insured [id number] [facility] 19 [employer] [address] [facility] [address] Pal Brewer Self - patient is the insured [id number]
--- OUTSIDE RECORDS SUMMARY | 2023-02-01 11:20 | XMS REPORT ---
Author Author [facility] ter [facility] ter [facility] Address Unknown Phone Unavailable Care Team Providers Care Records And Tape Recordings Engineer Name Role Phone ALEX BARROS Unavailable PROBLEMS Type Condition ICD9-CM Code ANP51-HJ Code Onset Dates Condition Status W/U Status Risk SNOMED Code Notes Problem Anxiety disorder, unspecified F41.9 confirmed 307198436 Problem Chronic pain syndrome G89.4 confirmed 711830690 Problem Lumbago with sciatica, right side M54.41 confirmed 223757737 1 01752 Problem Lumbago with sciatica, left side M54.42 confirmed 916843457 Problem Lung nodule < 6cm on CT R91.1 confirmed 525595817 Problem Panlobular emphysema J43.1 confirmed 5237691 Problem Hypertriglyce ridemia E78.1 confirmed 861635347 Problem Gastroesophag eal reflux disease, esophagitis presence not specified K21.9 confirmed 934275182 Problem Primary osteoarthriti s, right hand M19.041 confirmed 649225 7326 98380 Problem Bilateral neuropathy of upper extremities G56.93 confirmed 20887678 Problem Degenerative disc disease, cervical M50.30 confirmed 24080617 Problem Nocturnal hypoxia G47.34 confirmed 917192765 Problem Primary osteoarthriti s, left hand M19.042 confirmed 7583397 001 40931 Problem Obesity (BMI 30.0-34.9) E66.9 confirmed 277748455 1 49795 Problem Hypothyroidis m (acquired) E03.9 confirmed 29687760 Problem Osteoarthriti s of spine with radiculopathy , cervical region M47.22 confirmed 386014754 Problem Seasonal allergic rhinitis, unspecified trigger J30.2 confirmed 545227857 Problem Nicotine dependence, uncomplicated , unspecified nicotine product type F17.200 confirmed 087685028 Problem Moderate persistent asthma without complication J45.40 confirmed 909871749 ALLERGIES Allergen (clinical drug ingredient) Drug/Non Drug Allergy documented on EMR Reaction Allergy Type Onset Date Status hydromorphone Dilaudid([facility] Code:[address]-00) dizziness Drug Allergy Active ENCOUNTERS from 1960 to 2022-05-26 Encounter Location Date Provider Diagnosis [facility] [address] [facility] [id number] [place] [address] Jun, ALEX TORCHIA Lumbago with sciatica, left side M54.42 IMMUNIZATIONS Vaccine Route Administration Date Status PRIVATE [...] 08/2017 Hospitalization History L1 compression fracture - [place] 11/06 MENTAL STATUS No Information ASSESSMENTS Encounter Date Diagnosis Assessment Notes Treatment Notes Treatment Clinical Notes Jun, Lumbago with sciatica, left side (ICD-10 - M54.42) PLAN OF TREATMENT Medication Medication Name Sig [...] Name:ALEX Canales, 2022-08-14 12:20:00 AM, [address] [facility], [id number], [address], Insurance Providers Payer Name Payer Address Payer Phone Insured Name Patient Relationship to Insured Coverage Start Date Coverage End Date Subscriber Number Group Number [employer]EE [employer] 19 [employer] [address] [facility] [address] Pal Brewer Self - patient is the insured [id number] [employer] [address] [address] [facility] [address] Pal Brewer Self - patient is the insured [id number] [employer] [address] [facility] [address] Pal Brewer Self - patient is the insured [id number]
--- OUTSIDE RECORDS SUMMARY | 2023-02-01 11:20 | XMS REPORT ---
Author Author [facility] ter [facility] ter [facility] Address Unknown Phone Unavailable Care Team Providers Care Physician Relations Specialist Name Role Phone ALEX BARROS Unavailable PROBLEMS Type Condition ICD9-CM Code [id number] Code Onset Dates Condition Status W/U Status Risk SNOMED Code Notes Problem Anxiety disorder, unspecified F41.9 confirmed 651087354 Problem Chronic pain syndrome G89.4 confirmed 201824512 Problem Lumbago with sciatica, right side M54.41 confirmed [id number] 1 09538 Problem Lumbago with sciatica, left side M54.42 confirmed 899079473 Problem Lung nodule < 6cm on CT R91.1 confirmed 832429510 Problem Panlobular emphysema J43.1 confirmed 8422476 Problem Hypertriglyce ridemia E78.1 confirmed 843317868 Problem Gastroesophag eal reflux disease, esophagitis presence not specified K21.9 confirmed 744462885 Problem Primary osteoarthriti s, right hand M19.041 confirmed 825277 3547 91849 Problem Bilateral neuropathy of upper extremities G56.93 confirmed 01590661 Problem Degenerative disc disease, cervical M50.30 confirmed 43701959 Problem Nocturnal hypoxia G47.34 confirmed 219188558 Problem Primary osteoarthriti s, left hand M19.042 confirmed 2044688 001 33388 Problem Obesity (BMI 30.0-34.9) E66.9 confirmed 002963733 1 21054 Problem Hypothyroidis m (acquired) E03.9 confirmed 19533015 Problem Osteoarthriti s of spine with radiculopathy , cervical region M47.22 confirmed 362483852 Problem Seasonal allergic rhinitis, unspecified trigger J30.2 confirmed 294018805 Problem Nicotine dependence, uncomplicated , unspecified nicotine product type F17.200 confirmed 963184846 Problem Moderate persistent asthma without complication J45.40 confirmed 071210264 ALLERGIES Allergen (clinical drug ingredient) Drug/Non Drug Allergy documented on EMR Reaction Allergy Type Onset Date Status hydromorphone Dilaudid([facility] Code:[address]-61) dizziness Drug Allergy Active ENCOUNTERS from 1960 to 2022-07-21 Encounter Location Date Provider Diagnosis [facility] [address] [facility] [id number] [place] [address] Aug, ALEX BARROS IMMUNIZATIONS Vaccine Route Administration Date [...] for 28 Jun, Active REASON FOR VISIT Refill request MEDICAL (GENERAL) HISTORY Type Description Date [...] Name:ALEX Canales, 2022-08-14 12:20:00 AM, [address] [facility], [id number], [place], [address], Insurance Providers Payer Name Payer Address Payer Phone Insured Name Patient Relationship to Insured Coverage Start Date Coverage End Date Subscriber Number Group Number [facility] 19 [employer] [address] [facility] [address] Pal Brewer Self - patient is the insured [id number] [employer] [address] [facility] [address] Pal Brewer Self - patient is the insured [id number] [employer] 19 [address] [address] [facility] [address] Pal Brewer Self - patient is the insured [id number]
--- OUTSIDE RECORDS SUMMARY | 2023-02-01 11:20 | XMS REPORT ---
Author Author [facility] ter [facility] ter [facility] Address Unknown Phone Unavailable Care Team Providers Care Mesmerist Name Role Phone ALEX BARROS Unavailable PROBLEMS Type Condition ICD9-CM Code [id number] Code Onset Dates Condition Status W/U Status Risk SNOMED Code Notes Problem Lumbago with sciatica, left side M54.42 confirmed 324080999 Problem Anxiety disorder, unspecified F41.9 confirmed 992278857 Problem Lung nodule < 6cm on CT R91.1 confirmed 754559860 Problem Lumbago with sciatica, right side M54.41 confirmed 834108974 1 99738 Problem Gastroesophag eal reflux disease, esophagitis presence not specified K21.9 confirmed 375841689 Problem Panlobular emphysema J43.1 confirmed 3138657 Problem Hypothyroidis m (acquired) E03.9 confirmed 46824085 Problem Hypertriglyce ridemia E78.1 confirmed 347822947 Problem Bilateral neuropathy of upper extremities G56.93 confirmed 39141607 Problem Degenerative disc disease, cervical M50.30 confirmed 91007819 Problem Osteoarthriti s of spine with radiculopathy , cervical region M47.22 confirmed 637742087 Problem Obesity (BMI 30.0-34.9) E66.9 confirmed 395611764 1 92619 Problem Primary osteoarthriti s, right hand M19.041 confirmed 979954 1740 44856 Problem Essential hypertension I10 confirmed 72461093 Problem Primary osteoarthriti s, left hand M19.042 confirmed 3051265 001 38923 Problem Chronic pain syndrome G89.4 confirmed 798320131 Problem Seasonal allergic rhinitis, unspecified trigger J30.2 confirmed 013855297 Problem Nicotine dependence, uncomplicated , unspecified nicotine product type F17.200 confirmed 582015755 Problem Moderate persistent asthma without complication J45.40 confirmed 652771697 Problem Nocturnal hypoxia G47.34 confirmed 681240695 ALLERGIES Allergen (clinical drug ingredient) Drug/Non Drug Allergy documented on EMR Reaction Allergy Type Onset Date Status hydromorphone Dilaudid([facility] Code:[address]-10) dizziness Drug Allergy Active ENCOUNTERS from 1960 to 2022-10-19 Encounter Location Date Provider Diagnosis [facility] [address] [facility] [address] [id number] [place] [address] Oct, ALEX BARROS IMMUNIZATIONS Vaccine Route Administration Date Status FLUARIX QUAD (3 AND UP) 2016 IM Intramuscular Jun 11, 2017 Administered STATE FUNDED FLULUVAL QUAD 0 .5ML 6 MONTHS AND UP 2018 IM Intramuscular July 21, 2019 Administered 1st Booster MODERNA Bivalent [...] 2019 IM Intramuscular Apr 18, 2020 Administered influenza IIV3 (history) Unknown Feb [...] DX: emphysema Jan, Active REASON FOR VISIT Controlled Med Refill 11/08 MEDICAL (GENERAL) HISTORY Type Description Date Medical [...] Aug, Next Appt Details Provider Name:ALEX Canales, 2022-11-13 12:20:00 AM, [address] [facility], [id number], [place], [address], Insurance Providers Payer Name Payer Address Payer Phone Insured Name Patient Relationship to Insured Coverage Start Date Coverage End Date Subscriber Number Group Number [employer] [address] [facility] [address] Pal Brewer Self - patient is the insured [id number] [email or web address] 19 [employer] [address] [email or web address] [address] [phone] Pal Brewer Self - patient is the insured [id number] [employer] 19 [address] [address] [facility] [address] Pal Brewer Self - patient is the insured [id number]
[2023-02-01 11:34] VITALS: BP 173/81
[2023-02-01] MEDS ORDERED: CYCLOBENZAPRINE 10 MG TABLET PO PRN (12:15)
[2023-02-01] MEDS ORDERED: NICOTINE 2 MG LOZENGE MM PRN (12:45)
[2023-02-01] MEDS: GABAPENTIN 100 MG CAPSULE PO SCH ×2 (14:08→20:46)
[2023-02-01] MEDS: hydrALAZINE 25 MG TABLET PO SCH ×2 (14:08→22:20)
[2023-02-01 14:09] VITALS: BP 198/81
--- NOTE | 2023-02-01 14:18 | Diagnostic Imaging Report ---
EXAMINATION: Chest, 1 view. HISTORY: PICC line placement. COMPARISON: 11/16/2019. FINDINGS: Heart size and pulmonary vasculature are normal. Prominent right lung interstitial opacities. No pleural effusion or pneumothorax. A right-sided PICC catheter is present with the tip projecting over the right atrium. The osseous structures are intact. IMPRESSION: 1. Right-sided PICC line placement with the tip projecting over the right atrium. No pneumothorax. 2. Patchy opacities within the right lung, concerning for pneumonia. Dictated by: Dictated on workstation # [id number]
[2023-02-01] MEDS: FAMOTIDINE 20 MG TABLET PO SCH (16:15)
[2023-02-01 17:03] VITALS: BP 184/84
[2023-02-01] MEDS: cloNIDine 0.1 MG TABLET PO PRN (17:06)
[2023-02-01] MEDS: carvediloL 12.5 MG TABLET PO SCH (17:06)
[2023-02-01 19:28] VITALS: BP 160/75
[2023-02-01] MEDS: LATANOPROST 0.005% OPHTH SOLN 2.5 ML OU SCH (20:45)
[2023-02-01] MEDS: LACTOBACILLUS ACIDOPHILUS (PROBIOTIC) CAPSULE PO SCH (20:46)
[2023-02-01] MEDS: ZINC OXIDE 40% (Butt Paste MAX/Desitin) 57 gm TOP SCH (20:46)
[2023-02-01] MEDS: CATHETER FLUSH 10 ML SYR IVP SCH (21:06)
--- NOTE | 2023-02-02 04:46 | PM&R Progress Note ---
Subjective HPI/CC On Admission Date Seen by Provider: Feb 02, 2023 Time Seen by Provider: 11:00 Subjective/Events-last exam 02/02/2023: Patient having a pretty good day Slept fairly well last night No falls Pain is controlled Labs reviewed Iron and B12 pending Review of Systems General: Fatigue, Malaise Objective Exam Vital Signs Vital Signs Date Time Temp Pulse Resp B/P (MAP) Pulse Ox O2 Delivery O2 Flow Rate FiO2 02/02/23 17:37 89 20 139/69 (92) 98 Nasal Cannula 2.00 02/02/23 12:36 36.6 Capillary Refill : General Appearance: No Apparent Distress, WD/WN, Chronically ill HEENT: PERRL/EOMI, Normal ENT Inspection, Pharynx Normal Neck: Full Range of Motion, Normal Inspection, Non Tender, Supple, Carotid Bruit, Other (Cervical spine collar in place) Respiratory: Chest Non Tender, Lungs Clear, Normal Breath Sounds, No Accessory Muscle Use, No Respiratory Distress Cardiovascular: Regular Rate, Rhythm, No Edema, No Gallop, No JVD, No Murmur, Normal Peripheral Pulses Gastrointestinal: Normal Bowel Sounds, No Organomegaly, No Pulsatile Mass, Non Tender, Soft Back: Normal Inspection, No CVA Tenderness, No Vertebral Tenderness, Decreased Range of Motion ( of neck) Extremity: Normal Capillary Refill, Normal Inspection, Normal Range of Motion, Non Tender, No Calf Tenderness, No Pedal Edema Neurologic/Psychiatric: Alert, Oriented x3, geoscience specialist II-XII Norm as Tested, Abnormal Gait, Depressed Affect, Motor Weakness ( all extremities) Skin: Normal Color, Warm/Dry Lymphatic: No Adenopathy Results/Procedures Lab Laboratory Tests 02/02/23 05:24 Patient resulted labs reviewed. FIM Transfers Therapy Code Descriptions/Definitions Functional [place] Measure: 0=Not Assessed/NA 4=Minimal Assistance 1=Total Assistance 5=Supervision or Setup 2=Maximal Assistance 6=Modified [place] 3=Moderate Assistance 7=Complete IndependenceSCALE: Activities may be completed with or without assistive devices. 4-Kzbdoalxow-iesjsxz completes the activity by him/herself with no assistance from a helper. 5-Set-up or Clean-up Assistance-helper sets up or cleans up; patient completes activity. [place] assists only prior to or following the activity. 4-Supervision or Touching Assistance-helper provides verbal cues and/or touching/steadying and/or contact guard assistance as patient completes a ctivity. Assistance may be provided throughout the activity or intermittently. 3-Partial/Moderate Assistance-helper does LESS THAN HALF the effort. [place] lifts, holds or supports trunk or limbs, but provides less than half the effort. 2-Substantial/Maximal Assistance-helper does MORE THAN HALF the effort. [place] lifts or holds trunk or limbs and provides more than half the effort. 4-Knhygznzw-pyrfrz does ALL the effort. Patient does none of the effort to complete the activity. Or, the assistance of 2 or more helpers is required for the patient to complete the activity. If activity was not attempted, code reason: 7-Patient Refused. 9-Not Applicable-not attempted and the patient did not perform the activity before the current illness, exacerbation or injury. 10-Not Attempted due to Environmental Limitations-(lack of equipment, weather restraints, etc.). 88-Not Attempted due to Medical Conditions or Safety Concerns. 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
[2023-02-02] MEDS: hydrALAZINE 25 MG TABLET PO SCH ×3 (05:19→21:40)
[2023-02-02] MEDS: CATHETER FLUSH 10 ML SYR IVP SCH ×3 (05:30→21:40)
[2023-02-02 06:03] LABS: BASOPHILS % (AUTO) 0 % (0-10); EOSINOPHILS # (AUTO) 0.1 10^3/uL (0.0-0.3); EOSINOPHILS % (AUTO) 2 % (0-10); HEMATOCRIT 22 % (40-54); LYMPHOCYTES # (AUTO) 2.1 10^3/uL (1.0-4.0); LYMPHOCYTES % (AUTO) 26 % (12-44); MEAN CORPUSCULAR HEMOGLOBIN 29 pg (25-34); MEAN CORPUSCULAR HGB CONC 32 g/dL (32-36); MEAN CORPUSCULAR VOLUME 93 fL (80-99); MEAN PLATELET VOLUME 9.8 fL (9.0-12.2); MONOCYTES # (AUTO) 0.7 10^3/uL (0.0-1.0); MONOCYTES % (AUTO) 8 % (0-12); NEUTROPHILS # (AUTO) 5.1 10^3/uL (1.8-7.8); NEUTROPHILS % (AUTO) 64 % (42-75); PLATELET COUNT 236 10^3/uL (130-400); WHITE BLOOD COUNT 7.9 10^3/uL (4.3-11.0)
[2023-02-02 06:28] LABS: ALBUMIN 2.2 GM/DL (3.2-4.5); BILIRUBIN,TOTAL 0.2 MG/DL (0.1-1.0); CALCIUM 7.7 MG/DL (8.5-10.1); CREATININE SERUM 1.02 MG/DL (0.60-1.30); POTASSIUM 4.7 MMOL/L (3.6-5.0); TOTAL PROTEIN 5.2 GM/DL (6.4-8.2)
[2023-02-02] MEDS: cloNIDine 0.1 MG TABLET PO PRN (06:30)
[2023-02-02] MEDS: POTASSIUM CHLORIDE 20 MEQ TABLET PO SCH (06:30)
[2023-02-02 07:17] VITALS: BP 171/76
[2023-02-02] MEDS: FLUTICASONE/VILANTEROL 100/25 MCG (7 DOSES) IH SCH (07:54)
[2023-02-02] MEDS: TIOTROPIUM INH 4 GM (SPIRIVA Respimat) IH SCH (07:54)
[2023-02-02] MEDS ORDERED: NON-FORMULARY MEDICATION 1 EA EA (Ceftriaxone Sodium (Ceftriaxone) 2 GM) IV SCH (09:00)
[2023-02-02] MEDS ORDERED: VITAMIN D2 1.25 MG (50,000 UNITS) CAP PO SCH (09:00)
[2023-02-02] MEDS ORDERED: NON-FORMULARY MEDICATION 1 EA EA (Fluticasone/Umeclidin/Vilanter (Trelegy Ellipta 100-62.5 IH SCH (09:00)
[2023-02-02] MEDS: BUMETANIDE 1 MG TABLET PO SCH (09:23)
[2023-02-02] MEDS: LACTOBACILLUS ACIDOPHILUS (PROBIOTIC) CAPSULE PO SCH ×2 (09:23→21:39)
[2023-02-02] MEDS: carvediloL 12.5 MG TABLET PO SCH ×2 (09:24→17:17)
[2023-02-02] MEDS: NIFEdipine Extended Release 30 MG TABLET PO SCH (09:24)
[2023-02-02] MEDS: PANTOPRAZOLE 40 MG TABLET PO SCH (09:24)
[2023-02-02] MEDS: amLODIPine 10 MG TABLET PO SCH (09:24)
[2023-02-02] MEDS: MONTELUKAST 10 MG TABLET PO SCH (09:24)
[2023-02-02] MEDS: FOLIC ACID 1 MG TAB PO SCH (09:24)
[2023-02-02] MEDS: GABAPENTIN 100 MG CAPSULE PO SCH ×3 (09:24→21:40)
[2023-02-02] MEDS: DOCUSATE SODIUM 100 MG CAPSULE PO SCH ×2 (09:26→21:37)
[2023-02-02] MEDS: ENOXAPARIN 40 MG/0.4 ML SYRINGE SC SCH (09:26)
[2023-02-02] MEDS: SENNA W/DOCUSATE TABLET PO SCH ×2 (09:26→21:37)
[2023-02-02] MEDS: FLUTICASONE NASAL SPRAY (120 SPRAYS) NS PRN (09:36)
[2023-02-02] MEDS: FAMOTIDINE 20 MG TABLET PO SCH ×2 (09:40→16:10)
--- NOTE | 2023-02-02 09:43 | Physical Therapy Evaluation ---
PT Evaluation-General Medical Diagnosis Admission Date Feb 01, 2023 at 11:17 Medical Diagnosis: Critical illness myopathy Onset Date: Feb 01, 2023 Therapy Diagnosis Therapy Diagnosis: Proximal weakness; Decreased functional mobility Height/Weight Height (Feet): 5 Height (Inches): 11.00 Weight (Pounds): 218 Weight (Ounces): 8.0 Precautions Precautions/Isolations: Fall Prevention, Standard Precautions C collar donned ~ 90 degrees (when pt is sitting or standing). No lifting >8lbs, no bending/twisting. Keep back straight. Showering is permitted (covering wound with plastic and tape for the 1st two days after surgery only). No submerging incision (bathing, swimming, whirlpool/Jacuzzi). Weight Bear Status Right Lower Extremity: Right Full Weight Bearing Left Lower Extremity: Left Full Weight Bearing Referral Physician: Leslie Reason for Referral: Evaluation/Treatment Medical History Pertinent Medical History: COPD, HTN, OA Additional Medical History Cardiomyopathy, CAD, High Cholesterol, HTN, Neuropathy, GERD, Arthritis, Fibromyalgia, Back Injury, Chronic Back Pain, Anxiety, Depression, COPD, tobacco use, cervical fusion 10/2022, [facility]ADRIGAL, heart murmur, CP, TIA, R rotator cuff, L shoulder cyst removal Current History 62 y/o male admitted to OSH on 01/03/23 with intermittent drainage (blood and pus) from surgical wound, R hand numbness and 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 01/06/23 s/p hardware removal, C2-T3 screw placement, C7-T1 arlet osteotomy, and para spinal and trapezius flaps. 02/01/23 admit to [facility] ARU Reviewed History: Yes Social History Home: Multilevel Current Living Status: Spouse Entry Into Home: Stairs Without Railing PT Steps Into Home: 1 PT Steps Inside Home: 14 Pt lives in a multi-level home with his . 1 step to enter/exit with no HR; 14 steps and 9 steps in the home with B HR; Walk-in shower, seat, GBs, standard toilet Prior Prior Level of Function SCALE: Activities may be completed with or without assistive devices. 3-Yeqkzuvqyt-djjvrsw completes the activity by him/herself with no assistance from a helper. 5-Set-up or Clean-up Assistance-helper sets up or cleans up; patient completes activity. [place] assists only prior to or following the activity. 4-Supervision or Touching Assistance-helper provides verbal cues and/or touching/steadying and/or contact guard assistance as patient completes activity. Assistance may be provided throughout the activity or intermittently. 3-Partial/Moderate Assistance-helper does LESS THAN HALF the effort. [place] lifts, holds or supports trunk or limbs, but provides less than half the effort. 2-Substantial/Maximal Assistance-helper does MORE THAN HALF the effort. [place] lifts or holds trunk or limbs and provides more than half the effort. 8-Wasiifdwv-lxxsdi does ALL the effort. Patient does none of the effort to complete the activity. Or, the assistance of 2 or more helpers is required for the patient to complete the activity. If activity was not attempted, code reason: 7-Patient Refused. 9-Not Applicable-not attempted and the patient did not perform the activity before the current illness, exacerbation or injury. 10-Not Attempted due to Environmental Limitations-(lack of equipment, weather restraints, etc.). 88-Not Attempted due to Medical Conditions or Safety Concerns. Bed Mobility: 6 Transfers (B,C,W/C): 6 Gait: 6 Stairs: 6 Wheelchair Mobility: 9 Indoor Mobility (Ambulation): Independent Stairs: Independent At PLOF, pt was Ind with no AD and driving; Pt has a 4WW; O2 at night PT Evaluation-Current Subjective Pt is agreeable to PT. Pt reports LBP at 3/10. Pain Numeric Pain Scale: 3 Location: Lower Location Body Site: Back Section J - Health Conditions 1. Rarely or not at all 2. Occasionally 3. Frequently 4. Almost constantly 8. Unable to answer Pain Effect on Sleep: 1 Pain Interference with Therapy: 2 Pain Interference w/Day-to-Day: 1 Pt/Family Goals Safely return home with spouse Objective Patient Orientation: Person, Place, Time, Situation Attachments: Oxygen (2L ), IV C-collar ROM/Strength ROM Upper Extremities See OT eval ROM Lower Extremities WFL Strength Upper Extremities See OT eval Strength Lower Extremities B knee/ankle MMT = 4-/5 B hip MMT = 3+/5 Integumentary/Posture Integumentary See nurses note Bowel Incontinence: No Bladder Incontinence: No Sensory Vision: Wears Glasses Hearing: Functional Hand Dominance: Right Sensation Right Upper Extremit: Intact Sensation Left Upper Extremity: Intact Sensation Right Lower Extremit: Intact Sensation Left Lower Extremity: Intact Transfers Roll Left & Right (QC): 4 (SBA ) Sit to Lying (QC): 4 (SBA ) Lying to Sitting/Side of Bed(Q: 4 (SBA ) Sit to Stand (QC): 4 (SBA ) Chair/Kgm-yr-Uliql Xfer(QC): 4 (SBA ) Toilet Transfer (QC): 4 (SBA ) Car Transfer (QC): 4 (SBA ) Gait Does the Patient Walk?: Yes Mode of Locomotion: Walk Anticipated Mode of Locomotion: Walk Walk 10 feet (QC): 4 (SBA ) Walk 50 ft with 2 Turns(QC): 4 (SBA ) Walk 150 ft (QC): 4 (SBA ) Walking 10ft/uneven surface-QC: 4 (SBA ) Gait Assistive Device: FWW Wheelchair Training Does the Pt Use a Wheelchair?: No Wheel 50 ft with 2 turns (QC): 9 Wheel 150 ft (QC): 9 Type of Wheelchair: N/A Stairs #of Steps: 12 1 Step (curb) (QC): 4 (SBA ) 4 Steps (QC): 4 (SBA ) 12 Steps (QC): 4 (SBA ) Walking Assistive Device: Walker Balance Sitting Static: Normal Sitting Dynamic: Good Standing Static: Good Standing Dynamic: Fair Picking up an Object (QC): 4 (SBA with marine extension agent ) Special Test Comments KU standing balance scale = 3+/5 (goal = 4+/5) Treatment PT eval completed. Pt completed bed mobility and functional transfers with SBA and Min v/c for safety and proper technique. Pt ambulated 150ft and 100ft with the FWW and SBA. Pt negotiated 12 steps with B HR and SBA/CGA. Pt required extended seated rest breaks throughout eval and treatment. Pts O2 stayed above 90% on 2L. After treatment session, pt sitting in the recliner with call light in reach and all needs met. Assessment/Needs Pt tolerated PT well with good effort Rehab Potential: Good Post Rehab Potential-Barriers: Proximal weakness; endurance Equipment Needs possibly FWW PT Long-Term Goals Long-Term Goals PT Long-Term Goals Time Frame: Feb 16, 2023 Roll Left to Right (QC): 6 (Pt will be Mod I with all aspects of functional mobility, in order to safely return home with spouse. ) Sit to Lying (QC): 6 (Pt will be Mod I with all aspects of functional mobility, in order to safely return home with spouse. ) Lying-Sitting on Side/Bed(QC): 6 (Pt will be Mod I with all aspects of functional mobility, in order to safely return home with spouse. ) Sit to Stand (QC): 6 (Pt will be Mod I with all aspects of functional mobility, in order to safely return home with spouse. ) Chair/Raj-xz-Ovmrp Xfer(QC): 6 (Pt will be Mod I with all aspects of functional mobility, in order to safely return home with spouse. ) Toilet/Commode Transfer (QC): 6 (Pt will be Mod I with all aspects of functional mobility, in order to safely return home with spouse. ) Car Transfer (QC): 6 (Pt will be Mod I with all aspects of functional mobility, in order to safely return home with spouse. ) Does the Patient Walk: Yes Walk 10 feet (QC): 6 (Pt will be Mod I with all aspects of functional mobility, in order to safely return home with spouse. ) Walk 10ft-Uneven Surface(QC): 6 (Pt will be Mod I with all aspects of functional mobility, in order to safely return home with spouse. ) Walk 50ft with 2 Turns (QC): 6 (Pt will be Mod I with all aspects of functional mobility, in order to safely return home with spouse. ) Walk 150 ft (QC): 6 (Pt will be Mod I with all aspects of functional mobility, in order to safely return home with spouse. ) Does the Pt use WC or Scooter?: No Wheel 50 feet with 2 turns (QC: 9 Type: N/A Wheel 150 feet: 9 Type: N/A 1 Step (curb) (QC): 6 (Pt will be Mod I with all aspects of functional mobility, in order to safely return home with spouse. ) 4 Steps (QC): 6 (Pt will be Mod I with all aspects of functional mobility, in order to safely return home with spouse. ) 12 Steps (QC): 6 (Pt will be Mod I with all aspects of functional mobility, in order to safely return home with spouse. ) Picking up an Object (QC): 6 (Pt will be Mod I with all aspects of functional mobility, in order to safely return home with spouse. ) KU standing balance goal = 4+/5 PT Plan Problem List Problem List: Activity Tolerance, Functional Strength, Safety, Balance, Gait, Transfer, Bed Mobility, ROM Treatment/Plan Treatment Plan: Continue Plan of Care Treatment Plan: Bed Mobility, Education, Functional Activity Jody, Functional Strength, Group Therapy, Gait, Safety, Therapeutic Exercise, Transfers Treatment Duration: Feb 16, 2023 Frequency: At least 5 of 7 days/Wk (IRF) Estimated Hrs Per Day: 1.5 hours per day Patient and/or Family Agrees t: Yes Safety Risks/Education Patient Education: Gait Training, Transfer Techniques, Steps, Correct Positioning, Safety Issues Teaching Recipient: Patient Teaching Methods: Demonstration, Discussion Response to Teaching: Verbalize Understanding, Return Demonstration, Reinforcement Needed Discharge Recommendations Therapy Discharge Recommendati: Home & Family, Post Acute PT Discharge Status/Home Program Cont per POC Barriers to Progress Proximal weakness; endurance/SOB Target Placement Home with spouse Time Time In: 930 Time Out: 1030 DATE: Feb 02, 2023 Total Billed Treatment Time: 60 Total Billed Treatment 60 min 1 visit EVM (15 min) GT x 2 FA x 1 HODAN VALENZUELA PT Feb 02, 2023 09:43
[2023-02-02] MEDS ORDERED: cefTRIAXone 1,000 MG VIAL IV/IM ONE (10:11)
--- NOTE | 2023-02-02 10:45 | ST Dysphagia Evaluation ---
Speech Evaluation-General Medical Diagnosis Critical illness myopathy Onset Date: Feb 01, 2023 Therapy Diagnosis Therapy Diagnosis: Critical illness myopathy Precautions Precautions/Isolations: Standard Precautions Referral Referring Physician: Dr. Nelson Reason for Referral: Evaluation/Treatment Medical History Pertinent Medical History: COPD, HTN, OA Cardiomyopathy, Coronary Artery Disease, High Cholesterol, Hypertension, Neuropathy, GERD, Arthritis, Fibromyalgia, Back Injury, Chronic Back Pain, Anxiety, Depression Current History 62-year-old male with PMH of of diastolic congestive heart failure, O2 dependent COPD, HTN who presents due to cervical spine hardware infection. Prior hardware of C2-T3 screw placement was modified and patient remains in a hard cervical collar. Reviewed History: Yes Social History Current Living Status: Spouse Speech PLF/Current-Dysphagia Prior Level of Function Independent with all IADL's, driving Subjective The pt was awake and alert, appropriately interactive throughout assessment. Cognitive Status Patient Orientation: Normal For Age Oral Motor Skills Dentition: Edentalous Current Food Consistancy: Regular Ability to Follow Directions: Excellent Oral Expression Ability: No Impairment Voice Voice Phonatory-Based Quality: Normal Voice Pitch: Normal Voice Loudness: Normal Face Facial Symmetry: Symmetrical Oral-Facial Assessment Oral-Facial Dentition: Normal Labial Seal Description: Normal Smile: Normal Puff Cheeks: Normal Lingual Protrusion: Normal Lingual ROM: Normal Lingual Strength: Normal Volitional Dry Swallow: Yes Dysphagia Evaluation Consistencies Presented: Regular, Thin Liquid, Pureed Oral preparatory was WFL, extended mastication time due to edentulous status. Pt reports that he avoids hard/crunchy foods and tougher meats, otherwise does not restrict textures. Pharyngeal swallow initiation was timely, with appearance of normal timing of pharyngeal transit. No s/s penetration or aspiration were observed. Dietary Recommendations: Regular Liquid Recommendations: Thin Dysphagia Evaluation Summary Oral and pharyngeal swallow function appears WFL, no concerns noted at this time. Speech Short Term Goals Short Term Goals Short Term Goals n/a Speech Tire Care Manager Goals Longterm Goals n/a Speech-Plan Treatment Plan Speech Therapy Treatment Plan: Discontinue ST No treatment recommended Frequency: Modified Program (IRF) (no treatment indicated) Estimated Hrs Per Day: Other (no treatment indicated) Rehab Potential: Good Time Speech Therapy Time In: 08:30 Speech Therapy Time Out: 09:00 DATE: Feb 02, 2023 Total Billed Time: 30 Billed Treatment Time 1 RITA TORRES Feb 02, 2023 10:45
[2023-02-02] MEDS: cefTRIAXone 2,000 MG/NS 50 ML IVPB IV SCH ×2 (10:57)
[2023-02-02] MEDS: ZINC OXIDE 40% (Butt Paste MAX/Desitin) 57 gm TOP SCH ×2 (11:38→21:42)
[2023-02-02 12:36] VITALS: BP 155/70
--- NOTE | 2023-02-02 12:39 | Occupational Therapy Eval ---
OT Evaluation-General/PLF Medical Diagnosis Admission Date Feb 01, 2023 at 11:17 Medical Diagnosis: Critical illness myopathy Onset Date: Feb 01, 2023 Therapy Diagnosis Therapy Diagnosis: decreased ADL status, weakness Height/Weight Height (Feet): 5 Height (Inches): 11.00 Weight (Pounds): 218 Weight (Ounces): 8.0 Precautions Precautions/Isolations: Standard Precautions Comments C collar donned ~ 90 degrees (when pt is sitting or standing). No lifting >8lbs, no bending/twisting. Keep back straight. Showering is permitted (covering wound with plastic and tape for the 1st two days after surgery only). No submerging incision (bathing, swimming, whirlpool/Jacuzzi). 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 01/06/23 s/p hardware removal, C2-T3 screw placement, C7-T1 arlet osteotomy, and paraspinal and trapezius flaps. 02/01/23 admit to [facility] Social History Home: Multilevel Current Living Status: Spouse Entry Into Home: Stairs Without Railing Steps Into Home: 1 (small 1" threshold) Steps Inside Home: 14 Pt reports if he byrd on one side of the house, it is walk in onto the main level (1 small threshold). If he byrd in another area, it is walk in into the basement (1 small threshold). Within the house, if he is going from main level to basement, he has 9 steps. ADL-Prior Level of Function SCALE: Activities may be completed with or without assistive devices. 8-Areoofbkrl-ifzmjfw completes the activity by him/herself with no assistance from a helper. 5-Set-up or Clean-up Assistance-helper sets up or cleans up; patient completes activity. [place] assists only prior to or following the activity. 4-Supervision or Touching Assistance-helper provides verbal cues and/or touching/steadying and/or contact guard assistance as patient completes activity. Assistance may be provided throughout the activity or intermittently. 3-Partial/Moderate Assistance-helper does LESS THAN HALF the effort. Bon[place] lifts, holds or supports trunk or limbs, but provides less than half the effort. 2-Substantial/Maximal Assistance-helper does MORE THAN HALF the effort. [place] lifts or holds trunk or limbs and provides more than half the effort. 0-Bdgyxpeek-qongfb does ALL the effort. Patient does none of the effort to complete the activity. Or, the assistance of 2 or more helpers is required for the patient to complete the activity. If activity was not attempted, code reason: 7-Patient Refused. 9-Not Applicable-not attempted and the patient did not perform the activity before the current illness, exacerbation or injury. 10-Not Attempted due to Environmental Limitations-(lack of equipment, weather restraints, etc.). 88-Not Attempted due to Medical Conditions or Safety Concerns. ADL PLOF Comments Pt reports IND with ADLS and functional mobility at [facility], no AD. 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 He lives in a multilevel house (basement, main level, 2nd floor). His /family assists with meals, laundry/cleaning, finances, grocery shopping. Pt indicates he was independent with his medication management. On main level: tub/shower, standard toilet, bedrooms, kitchen. In basement: walk in shower, SC, GBs. It doesn't have a bedroom, but he could make arrangements to sleep in basement if needed. On 2nd floor: 2 bedrooms, he doesn't have to go to this level of the house. 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 Mental Status/Objective Patient Orientation: Person, Place, Time, Situation, Normal For Age Attachments: Ventilator (C collar) Current Glasses/Contacts: Yes Hearing Aids: No Dentures/Partials: No Hand Dominance: Right Upper Extremity ROM WFL, BUE shoulder flexion to approx 160 degrees Upper Extremity Coordination Decreased fine motor coordination due to tingling/numbness along ulnar nerve distribution BUEs, L ring finger trigger. Pt had difficulty using pen in R hand, noted shakiness when pt attempted to draw straight lines and write. Upper Extremity Sensation Tingling/numbness reported along ulnar nerve distribution BUEs. Upper Extremity Strength BUE shoulders not formally tested due to cervical precautions. Noted proximal weakness in shoulders impacting his ability to perform longer distances of mobility using FWW. Elbows WFL, grossly 3+/5 Wrist/hand decreased, poor-fair beef tagger strength ADL-Treatment Eating (QC): 5 (set up to open containers and cut food) Oral Hygiene (QC): 5 (assist to open container. Pt able to use mouthwash with set up assist. Pt doesn't use toothbrush/toothpaste at PLOF.) Shower/Bathe Self (QC): 3 (Min A washing LEs for thoroughness. Plan to take full shower tomorrow, after brings extra pads for C collar) Upper Body Dressing (QC): 3 (Min A overall. Pt able to don/doff shirt but would require assistance with C collar.) Lower Body Dressing (QC): 4 (Pt able to thread over feet and perform pant hike with SBA.) On/Off Footwear (QC): 4 (Pt able to doff/don gripper socks with increased time and effort with foot rest elevated.) Toileting Hygiene (QC): 4 (SBA, pt able to manage clothing management and posterior hygiene.) Other Treatments Pt participated in OT evaluation, providing information about PLOF and home set up. Pt stood from recliner to [facility], SBA, able to stand for ~5 mins as medical staffing coordinator assess skin. Pt able to manage pants up/down with SBA during skin assessment. Pt returned to recliner, SBA. Pt able to complete footwear with increased time with footrest elevated. OT provided pt education on importance of elevating feet due to BLE swelling. Pt demo'd ability to don/doff overhead shirt. Pt requires assistance with C collar at this time. Pt states increased difficulty with using utensils and writing, OT provided built up handle and provided education on use with lunch and writing, he states he will trial on utensils with his lunch. OT provided pt with mod-heavy resistance (green) beef tagger sponge. Pt able to complete x15 reps beef tagger squeezes BUES. OT informed pt not to use ring fingers with exercise as much as possible due to trigger fingers. Post tx, pt in recliner, call light in reach and all needs met. Education OT Patient Education: Correct positioning, Energy conservation, Modified ADL techniques, Progress toward Goal/Update tx plan, Purpose of tx/functional activities, Rehab process Teaching Recipient: Patient Teaching Methods: Discussion Response to Teaching: Verbalize Understanding BIMS CAM BIMS Expression of Ideas and Wants: Without Difficulty Understanding Verbal Content: Understands Brief Interview/Mental Status: Yes IRF MICHAEL BIMS: IRF MICHAEL BIMS Response (Comments) Value Repitition of Three Words Three 3 Recalls Socks Yes, No Cue Required 2 Recalls Blue No, Could Not Recall 0 Recalls Bed No, Could Not Recall 0 Year Correct 3 Month Accurate Within 5 Days 2 Day Correct 1 Total 11 Should Staff Asses. Mental St.: No CAM Mental Status Change/Baseline: 0 Inattention: 0 Disorganized thinkin Altered level of consciousness: 0 OT [facility] Goals Customer Experience Leader Goals Time Frame: Feb 13, 2023 Eating (QC): 6 Oral Hygiene (QC): 6 Toileting Hygiene (QC): 6 Shower/Bathe Self (QC): 6 Upper Body Dressing (QC): 6 Lower Body Dressing (QC): 6 On/Off Footwear (QC): 6 Additional Goals: 1-Demonstrate ADL Tasks, 2-Verbalize Understanding, 3-ImproveStrength/Jody 1=Demonstrate adherence to instructed precautions during ADL tasks. 2=Patient will verbalize/demonstrate understanding of assistive devices/modifications for ADL. 3=Patient will improve strength/tolerance for activity to enable patient to perform ADL's. OT Education/Plan Problem List/Assessment Assessment: Decreased Activ Tolerance, Decreased UE Strength, Impaired Funct Balance, Impaired I ADL's, Impaired Self-Care Skills Discharge Recommendations Plan/Recommendations: Continue POC Treatment Plan/Plan of Care Patient would benefit from OT for education, treatment and training to promote independence in ADL's, mobility, safety and/or upper extremity function for ADL's. Plan of Care: ADL Retraining, Functional Mobility, Group Exercise/Act as Ind, UE Funct Exercise/Act Treatment Duration: Feb 13, 2023 Frequency: At least 5 of 7 days/Wk (IRF) Estimated Hrs Per Day: 1.5 hours per day Agreement: Yes Rehab Potential: Good Time Start Time: 10:30 Stop Time: 12:00 DATE: Feb 02, 2023 Total Time Billed (hr/min): 90 Billed Treatment Time 1, EVM (30'), ADL 3 (45'), EX (15') JOHNSON PANG OT Feb 02, 2023 12:38
[2023-02-02 13:08] VITALS: BP 134/72
[2023-02-02] MEDS: HYPOCHLOROUS ACID/NaCl WOUND SOLN 250 ML IR PRN (14:36)
[2023-02-02 17:37] VITALS: BP 139/69
[2023-02-02 20:06] VITALS: BP 137/65
[2023-02-02] MEDS: LATANOPROST 0.005% OPHTH SOLN 2.5 ML OU SCH (21:42)
--- NOTE | 2023-02-03 05:07 | Individualized Plan of Care ---
Individualized Plan of Care Rehab Nursing IPOC Order Admission Date Feb 01, 2023 at 11:17 Current Orders Orders Admission Order(Inpt,Obs,Sdc) (01/30/23 12:07) Vital Signs: Per Unit Policy ( 08,16,00 (01/30/23 12:07) Anthony Limon 09,21 (01/30/23 12:07) Sequential Compression Device [id number] (01/30/23 12:07) Farm Management Agent-Inpt Rehab Con (01/30/23 12:07) Rehab Nursing Orders-Ipoc (01/30/23 12:07) Physical Therapy Rehab Orders (01/30/23 12:07) Occupational Therapy Rehab Ord (01/30/23 12:07) Speech Therapy Rehab Orders (01/30/23 12:07) Precautions (Aru) (01/30/23 12:07) Weekly Weight WEEK (01/30/23 12:07) Rehab-Intensity Of Therapy (01/30/23 12:07) Initiate Admission Nursing Pro .admission (01/30/23 12:07) Alprazolam Tablet (Alprazolam Tablet) (01/30/23 12:15) Calcium Carbonate Chew Tablet (Calcium C (01/30/23 12:15) Diphenhydramine Tablet (Diphenhydramine (01/30/23 12:15) Docusate Sodium Capsule (Docusate Sodium (01/30/23 21:00) Docusate Sodium Capsule (Docusate Sodium (01/30/23 12:15) Bisacodyl Suppository (Bisacodyl Supposi (01/30/23 12:15) Lactulose Oral Solution (Enulose Oral So (01/30/23 12:15) Na Phos/Na Biphos Adult Enema (Na Phos/N (01/30/23 12:15) Guaifenesin/Codeine Syrup (Guaifenesin/C (01/30/23 12:15) Loperamide Capsule (Loperamide Capsule) (01/30/23 12:15) Melatonin Tablet (Melatonin Tablet) (01/30/23 12:15) Polyethylene Glycol Powder (Polyethylen (01/30/23 21:00) Ondansetron Oral Dissolve Tab (Ondanset (01/30/23 12:15) Senna W/Docusate Tablet (Senna W/Docusat (01/30/23 21:00) Acetaminophen Tablet (Acetaminophen Ta (01/30/23 12:15) Initiate Admission Nursing Pro .admission (01/30/23 12:07) Nursing Communication (Order) (02/01/23 09:13) Lifting Restrictions (02/01/23 09:16) Cbc With Automated Diff (02/02/23 06:00) Comprehensive Metabolic Panel (02/02/23 06:00) Albuterol Pre-Mix Nebs (Rt) (Albuterol (02/01/23 09:45) Amlodipine Tablet (Amlodipine Tablet) (02/02/23 09:00) Atorvastatin Tablet (Atorvastatin Tablet (02/02/23 21:00) Clonidine Tablet (Clonidine Tablet) (02/01/23 21:00) Famotidine Tablet (Famotidine Tablet) (02/01/23 16:00) Folic Acid Tablet (Folic Acid Tablet) (02/02/23 09:00) Gabapentin Capsule (Gabapentin Capsule) (02/01/23 13:00) Latanoprost 0.005% Ophth Soln (Latanopro (02/01/23 21:00) Montelukast Tablet (Montelukast Tablet) (02/02/23 09:00) Oxycodone Immediate Rel Tablet (Oxycodon (02/01/23 09:45) Pantoprazole Tablet (Pantoprazole Tablet (02/02/23 09:00) Senna W/Docusate Tablet (Senna W/Docusat (02/01/23 21:00) Bumetanide Tablet (Bumetanide Tablet) (02/02/23 09:00) Carvedilol Tablet (Carvedilol Tablet) (02/01/23 18:00) Fluticasone Nasal [place] (Fluticasone [place] (02/01/23 13:15) Hydralazine Tablet (Hydralazine Tablet (02/01/23 14:00) Nicotine Lozenge (Nicotine Lozenge) (02/01/23 12:45) Nifedipine Xl Tablet (Nifedipine Xl Ta (02/02/23 09:00) Potassium Chloride (Tablet) (Potassium C (02/02/23 07:00) Lactobacillus Acidophilus Cap (Acidophil (02/01/23 21:00) Zinc Oxide 40% Oint 57 Gm ([place] Bu (02/01/23 21:00) Svn Small Volume Nebulizer (02/01/23 09:45) Admission Arrival Bed Request (02/01/23 11:03) Chest 1 View, Ap/Pa Only (02/01/23 11:58) Cyclobenzaprine Tablet (Cyclobenzaprine (02/01/23 12:15) Ergocalciferol Capsule (Ergocalciferol C (02/02/23 09:00) Ceftriaxone Injection (Ceftriaxone Injec (02/02/23 09:00) General/Regular (02/01/23 Lunch) Fluticasone/Vilanterol 100 Mcg (Fluticas (02/02/23 08:00) Tiotropium Respimat 4 Gm (Spiriva Respim (02/02/23 08:00) Code/Resuscitation (02/01/23 13:27) Picc Line Evaluation .on order (02/01/23 14:35) Incentive Spirometry (Nursing) Q2H (02/01/23 14:38) Clonidine Tablet (Clonidine Tablet) (02/01/23 15:30) Sodium Chloride Flush (Catheter Flush Sy (02/01/23 22:00) Enoxaparin Injection (Enoxaparin Injecti (02/02/23 09:00) Iron Test (Fe) (02/02/23 06:51) Vitamin B 12 (02/02/23 06:51) Cephalexin Capsule (Cephalexin Capsule) (02/21/23 09:00) Doxycycline Hyclate Tablet (Doxycycline (02/02/23 09:00) Ceftriaxone Iv/Im (Ceftriaxone Iv/Im) (02/02/23 10:11) Dysphagia Evaluation Std (02/02/23 ) Patient Visit (02/02/23 ) Hypochlorous Acid/Sod Chloride (Hypochlo (02/02/23 13:30) Dressing Order (Intervention) BID PRN (02/02/23 13:20) Patient Visit (02/02/23 ) Pt Eval Moderate Complexity (02/02/23 ) Gait Training, Ea 15 Min (02/02/23 ) Functional Activities, Ea 15 (02/02/23 ) Iron Sucrose Injection (Iron Sucrose Inj (02/03/23 09:00) Cyanocobalamin Injection (Cyanocobalamin (02/03/23 09:00) Nicotine Patch (Nicotine Patch) (02/03/23 09:00) Patch Removal (Patch Removal) (02/04/23 08:59) Picc Cap(S) Change Q7D (02/06/23 08:40) Picc Dressing/Securement Devic Q7D (02/09/23 08:40) Patient Visit (02/03/23 ) Exercise Therap, Ea 15 Min (02/03/23 ) Functional Activities, Ea 15 (02/03/23 ) Gait Training, Ea 15 Min (02/03/23 ) Rehab Nursing Orders: Ongoing Assess. of Cognitive Status, Ongoing Assess. of Function Status, Bladder Management, Bladder Scan, Bladder Training, Bowel Management, Bowel Training, Disease Management & Educaiton, DVT Prophylaxis, Fall Prevention, Fluid/Electrolyte/Nutrition Mgmt, Infection Prevention, Medication Management & Education, Management of Risks & Complications, Management of Skin Intergrity, Nutrition Management, Pain Management, Patient/Family Support, Safety Management, Wound Management Intensity of Therapy to be met Patient to be seen: Min.3h per day/5 of 7d PT IPOC Problem List: Activity Tolerance, Functional Strength, Safety, Balance, Gait, Transfer, Bed Mobility, ROM Treatment Plan: Continue Plan of Care Bed Mobility, Education, Functional Activity Jody, Functional Strength, Group Therapy, Gait, Safety, Therapeutic Exercise, Transfers Treatment Duration: Feb 16, 2023 Frequency: At least 5 of 7 days/Wk (IRF) Estimated Hrs Per Day: 1.5 hours per day OT IPOC Problems: Decreased Activ Tolerance, Decreased UE Strength, Impaired Funct Balance, Impaired I ADL's, Impaired Self-Care Skills OT Treatment, Training and Edu: Yes Plan of Care: ADL Retraining, Functional Mobility, Group Exercise/Act as Ind, UE Funct Exercise/Act Treatment Duration: Feb 13, 2023 Frequency: At least 5 of 7 days/Wk (IRF) Estimated Hrs Per Day: 1.[address] IPOC Speech Therapy Treatment Plan: Discontinue ST Treatment Duration: Feb 02, 2023 Frequency: Modified Program (IRF) (no treatment indicated) Estimated Hrs Per Day: Other (no treatment indicated) Farm Management Agent/Case Mgmt Farm Management Agent/Case Managemen: Discharge Planning Dietitian/Vocational Aide Dietitian/Vocational Aide to monitor nutritional status and make changes and/or recommendations as needed and work with speech pathology on dietary upgrades as the occur. Physician IPOC Medical Issues being managed closely and that require the 24 hour availability of a physician: Recent cervical spine surgery due to hardware and osteomyelitis infection which requiring IV antibiotics will need close monitoring especially with anemia requiring iron infusions and maintenance of home medication for severe hypertension at high risk for decompensation Medical Issues: Bowel/Bladder Function, DVT Prophylaxis, Falls Precautions, Fluid/Electrolyte/Nutrition Balance, Infection Protection, Pain Management Brief Synthesis of Preadmission Screen, Post-Admission Evaluation, and Therapy Evaluations: PT and OT will focus on regaining function to get close to baseline stamina during ambulation and increase independence in ADLs Medical Prognosis: Good Anticipated Length of Stay: 7 days HARMEET GUERIN DO Feb 03, 2023 05:07
--- NOTE | 2023-02-03 05:07 | PM&R Progress Note ---
Subjective HPI/CC On Admission Date Seen by Provider: Feb 03, 2023 Time Seen by Provider: 11:00 Subjective/Events-last exam 02/03/2023: Patient doing well Denies any pain right now Giving IV iron infusion Participation is good Nicotine patch given 02/02/2023: Patient having a pretty good day Slept fairly well last night No falls Pain is controlled Labs reviewed Iron and B12 pending Review of Systems General: Fatigue, Malaise Objective Exam Vital Signs Vital Signs Date Time Temp Pulse Resp B/P (MAP) Pulse Ox O2 Delivery O2 Flow Rate FiO2 02/03/23 18:20 90 122/60 (80) 02/03/23 14:03 36.4 18 99 Nasal Cannula 2.00 Capillary Refill : General Appearance: No Apparent Distress, WD/WN, Chronically ill HEENT: PERRL/EOMI, Normal ENT Inspection, Pharynx Normal Neck: Full Range of Motion, Normal Inspection, Non Tender, Supple, Carotid Bruit, Other (Cervical spine collar in place) Respiratory: Chest Non Tender, Lungs Clear, Normal Breath Sounds, No Accessory Muscle Use, No Respiratory Distress Cardiovascular: Regular Rate, Rhythm, No Edema, No Gallop, No JVD, No Murmur, Normal Peripheral Pulses Gastrointestinal: Normal Bowel Sounds, No Organomegaly, No Pulsatile Mass, Non Tender, Soft Back: Normal Inspection, No CVA Tenderness, No Vertebral Tenderness, Decreased Range of Motion ( of neck) Extremity: Normal Capillary Refill, Normal Inspection, Normal Range of Motion, Non Tender, No Calf Tenderness, No Pedal Edema Neurologic/Psychiatric: Alert, Oriented x3, main line assembler II-XII Norm as Tested, Abnormal Gait, Depressed Affect, Motor Weakness ( all extremities) Skin: Normal Color, Warm/Dry Lymphatic: No Adenopathy Results/Procedures Lab Patient resulted labs reviewed. FIM Transfers Therapy Code Descriptions/Definitions Functional [place] Measure: 0=Not Assessed/NA 4=Minimal Assistance 1=Total Assistance 5=Supervision or Setup 2=Maximal Assistance 6=Modified [place] 3=Moderate Assistance 7=Complete IndependenceSCALE: Activities may be completed with or without assistive devices. 1-Qfepfazlem-skyvjae completes the activity by him/herself with no assistance from a helper. 5-Set-up or Clean-up Assistance-helper sets up or cleans up; patient completes activity. [place] assists only prior to or following the activity. 4-Supervision or Touching Assistance-helper provides verbal cues and/or touching/steadying and/or contact guard assistance as patient completes activity. Assistance may be provided throughout the activity or intermittently. 3-Partial/Moderate Assistance-helper does LESS THAN HALF the effort. [place] lifts, holds or supports trunk or limbs, but provides less than half the effort. 2-Substantial/Maximal Assistance-helper does MORE THAN HALF the effort. [place] lifts or holds trunk or limbs and provides more than half the effort. 0-Cfnsavdog-sglukp does ALL the effort. Patient does none of the effort to complete the activity. Or, the assistance of 2 or more helpers is required for the patient to complete the activity. If activity was not attempted, code reason: 7-Patient Refused. 9-Not Applicable-not attempted and the patient did not perform the activity b efore the current illness, exacerbation or injury. 10-Not Attempted due to Environmental Limitations-(lack of equipment, weather restraints, etc.). 88-Not Attempted due to Medical Conditions or Safety Concerns. Roll Left to Right (QC): 4 (SBA ) Sit to Lying (QC): 4 (SBA ) Sit to Stand (QC): 4 (SBA ) Chair/Dmm-fa-Hqsjr Xfer(QC): 4 (SBA ) Car Transfer (QC): 4 (SBA ) Gait Training Does the Patient Walk?: Yes Walk 10 feet (QC): 4 (SBA ) Walk 50 ft with 2 Turns(QC): 4 (SBA ) Walk 150 ft (QC): 4 (SBA ) Walking 10ft/uneven surface-QC: 4 (SBA ) Gait Assistive Device: FWW Wheelchair Training Does the Pt Use a Wheelchair?: No Wheel 50 ft with 2 turns (QC): 9 Wheel 150 ft (QC): 9 Type of Wheelchair: N/A Stair Training #of Steps: 12 1 Step (curb) (QC): 4 (SBA ) 4 Steps (QC): 4 (SBA ) 12 Steps (QC): 4 (SBA ) Balance Picking up an Object (QC): 4 (SBA with physiotherapist's assistant ) ADL-Treatment Eating (QC): 5 (set up to open containers and cut food) Oral Hygiene (QC): 5 (assist to open container. Pt able to use mouthwash with set up assist. Pt doesn't use toothbrush/toothpaste at PLOF.) Shower/Bathe Self (QC): 3 (Min A washing LEs for thoroughness. Plan to take full shower tomorrow, after brings extra pads for C collar) Upper Body Dressing (QC): 3 (Min A overall. 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
[2023-02-03] MEDS: hydrALAZINE 25 MG TABLET PO SCH ×3 (05:19→21:51)
[2023-02-03] MEDS: CATHETER FLUSH 10 ML SYR IVP SCH ×3 (05:20→21:52)
[2023-02-03] MEDS: FAMOTIDINE 20 MG TABLET PO SCH ×2 (06:58→16:14)
[2023-02-03] MEDS: POTASSIUM CHLORIDE 20 MEQ TABLET PO SCH (06:58)
[2023-02-03 07:21] VITALS: BP 144/73
[2023-02-03] MEDS: FLUTICASONE/VILANTEROL 100/25 MCG (7 DOSES) IH SCH (07:29)
[2023-02-03] MEDS: TIOTROPIUM INH 4 GM (SPIRIVA Respimat) IH SCH (07:29)
[2023-02-03] MEDS: IRON SUCROSE 200 MG/10 ML VIAL IV SCH (07:43)
[2023-02-03] MEDS: amLODIPine 10 MG TABLET PO SCH (07:52)
[2023-02-03] MEDS: BUMETANIDE 1 MG TABLET PO SCH (07:52)
[2023-02-03] MEDS: PANTOPRAZOLE 40 MG TABLET PO SCH (07:52)
[2023-02-03] MEDS: GABAPENTIN 100 MG CAPSULE PO SCH ×3 (07:53→21:50)
[2023-02-03] MEDS: FOLIC ACID 1 MG TAB PO SCH (07:53)
[2023-02-03] MEDS: MONTELUKAST 10 MG TABLET PO SCH (07:53)
[2023-02-03] MEDS: carvediloL 12.5 MG TABLET PO SCH ×2 (07:53→18:25)
[2023-02-03] MEDS: LACTOBACILLUS ACIDOPHILUS (PROBIOTIC) CAPSULE PO SCH ×2 (07:54→21:50)
[2023-02-03] MEDS: ZINC OXIDE 40% (Butt Paste MAX/Desitin) 57 gm TOP SCH ×2 (07:54→21:51)
[2023-02-03] MEDS: NIFEdipine Extended Release 30 MG TABLET PO SCH (07:55)
[2023-02-03] MEDS: cefTRIAXone 2,000 MG/NS 50 ML IVPB IV SCH ×2 (08:01)
[2023-02-03] MEDS: ENOXAPARIN 40 MG/0.4 ML SYRINGE SC SCH (08:02)
--- NOTE | 2023-02-03 08:14 | Physical Therapy Daily Note ---
PT Daily Note-Current Subjective Pt reports he is doing well today and is agreeable to PT. Denies pain Pain Numeric Pain Scale: 0-No Pain Location: No Pain Reported Section J - Health Conditions 1. Rarely or not at all 2. Occasionally 3. Frequently 4. Almost constantly 8. Unable to answer Pain Effect on Sleep: 1 Pain Interference with Therapy: 1 Pain Interference w/Day-to-Day: 1 Mental Status Attachments: IV C-collar Transfers SCALE: Activities may be completed with or without assistive devices. 5-Sqqmvrsslc-wbbofmu completes the activity by him/herself with no assistance from a helper. 5-Set-up or Clean-up Assistance-helper sets up or cleans up; patient completes activity. [place] assists only prior to or following the activity. 4-Supervision or Touching Assistance-helper provides verbal cues and/or touching/steadying and/or contact guard assistance as patient completes activity. Assistance may be provided throughout the activity or intermittently. 3-Partial/Moderate Assistance-helper does LESS THAN HALF the effort. [place] lifts, holds or supports trunk or limbs, but provides less than half the effort. 2-Substantial/Maximal Assistance-helper does MORE THAN HALF the effort. [place] lifts or holds trunk or limbs and provides more than half the effort. 3-Gizuvjmpn-lkqgdw does ALL the effort. Patient does none of the effort to complete the activity. Or, the assistance of 2 or more helpers is required for the patient to complete the activity. If activity was not attempted, code reason: 7-Patient Refused. 9-Not Applicable-not attempted and the patient did not perform the activity before the current illness, exacerbation or injury. 10-Not Attempted due to Environmental Limitations-(lack of equipment, weather restraints, etc.). 88-Not Attempted due to Medical Conditions or Safety Concerns. Sit to Stand (QC): 4 Chair/Hhd-tb-Vbzya Xfer(QC): 4 Toilet Transfer (QC): 4 Weight Bearing Right Lower Extremity: Right Full Weight Bearing Left Lower Extremity: Left Full Weight Bearing Gait Training Does the Patient Walk?: Yes Walk 10 feet (QC): 4 Walk 50 ft with 2 Turns(QC): 4 Walk 150 ft (QC): 4 Gait Persons Needed: 1 Gait Assistive Device: FWW Wheelchair Training Does the Pt Use a Wheelchair?: No Wheel 50 ft with 2 turns (QC): 9 Wheel 150 ft (QC): 9 Type of Wheelchair: N/A Treatments Pt was hooked up to IV upon arrival. Pt was edu about HEP, with handouts provided. Pt completed seated B LE Ther Ex x 15 reps each with the red Tband. Pt completed functional transfers with SBA. Pt ambulated 200ft, 165ft, and 100ft with the FWW and SBA. Pt completed 15 min on the nu-step on level 1. After treatment session, pt was using the restroom with call light in reach. All needs met. Assessment Current Status: Good Progress Pt tolerated PT well with good effort PT Packager Goals Group Home Goals PT Group Home Goals Time Frame: Feb 16, 2023 Roll Left & Right (QC): 6 (Pt will be Mod I with all aspects of functional mobility, in order to safely return home with spouse. ) Sit to Lying (QC): 6 (Pt will be Mod I with all aspects of functional mobility, in order to safely return home with spouse. ) Lying-Sitting on Side/Bed(QC): 6 (Pt will be Mod I with all aspects of functional mobility, in order to safely return home with spouse. ) Sit to Stand (QC): 6 (Pt will be Mod I with all aspects of functional mobility, in order to safely return home with spouse. ) Chair/Yrl-rs-Atwgo Xfer(QC): 6 (Pt will be Mod I with all aspects of functional mobility, in order to safely return home with spouse. ) Toilet Transfer (QC): 6 (Pt will be Mod I with all aspects of functional mobility, in order to safely return home with spouse. ) Car Transfer (QC): 6 (Pt will be Mod I with all aspects of functional mobility, in order to safely return home with spouse. ) Does the Patient Walk: Yes Walk 10 feet (QC): 6 (Pt will be Mod I with all aspects of functional mobility, in order to safely return home with spouse. ) Walk 50ft with 2 Turns (QC): 6 (Pt will be Mod I with all aspects of functional mobility, in order to safely return home with spouse. ) Walk 150 ft (QC): 6 (Pt will be Mod I with all aspects of functional mobility, in order to safely return home with spouse. ) Walking 10ft on Uneven Surface: 6 (Pt will be Mod I with all aspects of fun ctional mobility, in order to safely return home with spouse. ) 1 Step (curb) (QC): 6 (Pt will be Mod I with all aspects of functional mobility, in order to safely return home with spouse. ) 4 Steps (QC): 6 (Pt will be Mod I with all aspects of functional mobility, in order to safely return home with spouse. ) 12 Steps (QC): 6 (Pt will be Mod I with all aspects of functional mobility, in order to safely return home with spouse. ) Picking up an Object (QC): 6 (Pt will be Mod I with all aspects of functional mobility, in order to safely return home with spouse. ) Does the Pt use WC or Scooter?: No Wheel 50 feet with 2 turns (QC: 9 Type: N/A Wheel 150 feet: 9 Type: N/A PT Plan Problem List Problem List: Activity Tolerance, Functional Strength, Safety, Balance, Gait, Transfer, Bed Mobility Treatment/Plan Treatment Plan: Continue Plan of Care Treatment Plan: Bed Mobility, Education, Functional Activity Jody, Functional Strength, Group Therapy, Gait, Safety, Therapeutic Exercise, Transfers Treatment Duration: Feb 16, 2023 Frequency: At least 5 of 7 days/Wk (IRF) Estimated Hrs Per Day: 1.5 hours per day Patient and/or Family Agrees t: Yes Safety Risks/Education Patient Education: Gait Training, Transfer Techniques, Issued Written HEP, Correct Positioning, Safety Issues Teaching Recipient: Patient Teaching Methods: Demonstration, Discussion Response to Teaching: Verbalize Understanding, Return Demonstration, Reinforc ement Needed Discharge Recommendations Therapy Discharge Recommendati: Home & Family, Post Acute PT Discharge Status/Home Program Cont per POC Barriers to Progress Proximal weakness; Endurance Target Placement Home with family assistance Time Time In: 800 Time Out: 930 DATE: Feb 03, 2023 Total Billed Treatment Time: 90 Total Billed Treatment 90 min 1 visit EX x 2 FA x 2 GT x 2 HODAN VALENZUELA PT Feb 03, 2023 08:14
[2023-02-03] MEDS ORDERED: CYANOCOBALAMIN 1000 MCG/ML 1 ML VIAL IM ONE (09:00)
[2023-02-03] MEDS: FLUTICASONE NASAL SPRAY (120 SPRAYS) NS PRN (10:25)
[2023-02-03] MEDS: ACETAMINOPHEN 325 MG TABLET PO PRN (10:52)
[2023-02-03] MEDS: NICOTINE 21 MG PATCH TD SCH (10:55)
[2023-02-03] MEDS: SENNA W/DOCUSATE TABLET PO SCH ×2 (10:56→21:55)
[2023-02-03] MEDS: DOCUSATE SODIUM 100 MG CAPSULE PO SCH ×2 (10:56→21:55)
[2023-02-03] MEDS: HYPOCHLOROUS ACID/NaCl WOUND SOLN 250 ML IR PRN (11:15)
--- NOTE | 2023-02-03 11:51 | Occupational Ther Daily Note ---
OT Current Status-Daily Note Subjective Pt agreeable to OT Tx, rates pain 4/10 in neck/headache. Mental Status/Objective Patient Orientation: Normal For Age Attachments: Oxygen (2L) ADL-Treatment Therapy Code Descriptions/Definitions Functional [place] Measure: 0=Not Assessed/NA 4=Minimal Assistance 1=Total Assistance 5=Supervision or Setup 2=Maximal Assistance 6=Modified [place] 3=Moderate Assistance 7=Complete IndependenceSCALE: Activities may be completed with or without assistive devices. 8-Evwortqury-xtjaypm completes the activity by him/herself with no assistance from a helper. 5-Set-up or Clean-up Assistance-helper sets up or cleans up; patient completes activity. [place] assists only prior to or following the activity. 4-Supervision or Touching Assistance-helper provides verbal cues and/or touching/steadying and/or contact guard assistance as patient completes activity. Assistance may be provided throughout the activity or intermittently. 3-Partial/Moderate Assistance-helper does LESS THAN HALF the effort. [place] lifts, holds or supports trunk or limbs, but provides less than half the effort. 2-Substantial/Maximal Assistance-helper does MORE THAN HALF the effort. [place] lifts or holds trunk or limbs and provides more than half the effort. 9-Xfmcgfnbh-jljwzo does ALL the effort. Patient does none of the effort to complete the activity. Or, the assistance of 2 or more helpers is required for the patient to complete the activity. If activity was not attempted, code reason: 7-Patient Refused. 9-Not Applicable-not attempted and the patient did not perform the activity before the current illness, exacerbation or injury. 10-Not Attempted due to Environmental Limitations-(lack of equipment, weather restraints, etc.). 88-Not Attempted due to Medical Conditions or Safety Concerns. Shower/Bathe Self (QC): 4 (Min VCs for precautions. ) Upper Body Dressing (QC): 3 (Pt able to don/doff shirt with set up. Assist with C collar. ) Lower Body Dressing (QC): 4 (SBA, min VCs for precautions) On/Off Footwear: 3 (Assistance with tessie wraps, able to don/doff gripper socks with min VCs) Other Treatment Pt used FWW to perform functional mobility from recliner to OK, SBA. Pt doffed clothes, completed shower, then donned clothes. Education provided on cervical precautions throughout tx. Pt transferred to recliner, SBA with FWW. RN present to wrap and dress LEs wounds. Education provided on how to change C collar pads after shower, pt verbalized understanding. Post tx, pt in recliner, call light in reach and all needs met. Education OT Patient Education: Correct positioning, Energy conservation, Instructions don/doff splint/brace, Modified ADL techniques, Progress toward Goal/Update tx plan, Purpose of tx/functional activities, Reviewed precautions, Rehab process, Safety issues Teaching Recipient: Patient Teaching Methods: Discussion Response to Teaching: Verbalize Understanding OT Sap Senior Developer Goals Sap Senior Developer Goals Time Frame: Feb 13, 2023 Acute change in mental status: 0 Inattention: 0 Disorganized thinkin Altered level of consciousness: 0 Eating (QC): 6 Oral Hygiene (QC): 6 Toileting Hygiene (QC): 6 Shower/Bathe Self (QC): 6 Upper Body Dressing (QC): 6 Lower Body Dressing (QC): 6 On/Off Footwear (QC): 6 Additional Goals: 1-Demonstrate ADL Tasks, 2-Verbalize Understanding, 3- ImproveStrength/Jody 1=Demonstrate adherence to instructed precautions during ADL tasks. 2=Patient will verbalize/demonstrate understanding of assistive dev ices/modifications for ADL. 3=Patient will improve strength/tolerance for activity to enable patient to perform ADL's. OT Education/Plan Problem List/Assessment Assessment: Decreased Activ Tolerance, Decreased UE Strength, Impaired Funct Balance, Impaired I ADL's, Impaired Self-Care Skills Discharge Recommendations Plan/Recommendations: Continue POC Treatment Plan/Plan of Care Patient would benefit from OT for education, treatment and training to promote independence in ADL's, mobility, safety and/or upper extremity function for ADL 's. Plan of Care: ADL Retraining, Functional Mobility, Group Exercise/Act as Ind, UE Funct Exercise/Act Treatment Duration: Feb 13, 2023 Frequency: At least 5 of 7 days/Wk (IRF) Estimated Hrs Per Day: 1.5 hours per day Agreement: Yes Rehab Potential: Good Time Start Time: 10:15 Stop Time: 11:45 DATE: Feb 03, 2023 Total Time Billed (hr/min): 90 Billed Treatment Time 1, ADL 6 (90') JOHNSON PANG OT Feb 03, 2023 11:51
[2023-02-03 13:47] VITALS: BP 126/80
[2023-02-03] MEDS: oxyCODONE IMMEDIATE RELEASE 5 MG TABLET PO PRN ×2 (13:59→23:54)
[2023-02-03 14:03] VITALS: BP 123/58
[2023-02-03 18:20] VITALS: BP 122/60
[2023-02-03 20:55] VITALS: BP 156/68
[2023-02-03] MEDS: LATANOPROST 0.005% OPHTH SOLN 2.5 ML OU SCH (21:50)
[2023-02-04] MEDS: ACETAMINOPHEN 325 MG TABLET PO PRN (02:35)
--- NOTE | 2023-02-04 05:15 | PM&R Progress Note ---
Subjective HPI/CC On Admission Date Seen by Provider: Feb 04, 2023 Time Seen by Provider: 12:00 Subjective/Events-last exam 02/04/2023: Patient doing a lot better Participation is good Set for discharge Thursday or Thursday No falls 02/03/2023: Patient doing well Denies any pain right now Giving IV iron infusion Participation is good Nicotine patch given 02/02/2023: Patient having a pretty good day Slept fairly well last night No falls Pain is controlled Labs reviewed Iron and B12 pending Review of Systems General: Fatigue, Malaise Objective Exam Vital Signs Vital Signs Date Time Temp Pulse Resp B/P (MAP) Pulse Ox O2 Delivery O2 Flow Rate FiO2 02/04/23 09:30 Room Air 02/04/23 08:00 36.0 92 18 147/70 (95) 99 2.00 Capillary Refill : General Appearance: No Apparent Distress, WD/WN, Chronically ill HEENT: PERRL/EOMI, Normal ENT Inspection, Pharynx Normal Neck: Full Range of Motion, Normal Inspection, Non Tender, Supple, Carotid Bruit, Other (Cervical spine collar in place) Respiratory: Chest Non Tender, Lungs Clear, Normal Breath Sounds, No Accessory Muscle Use, No Respiratory Distress Cardiovascular: Regular Rate, Rhythm, No Edema, No Gallop, No JVD, No Murmur, Normal Peripheral Pulses Gastrointestinal: Normal Bowel Sounds, No Organomegaly, No Pulsatile Mass, Non Tender, Soft Back: Normal Inspection, No CVA Tenderness, No Vertebral Tenderness, Decreased Range of Motion ( of neck) Extremity: Normal Capillary Refill, Normal Inspection, Normal Range of Motion, Non Tender, No Calf Tenderness, No Pedal Edema Neurologic/Psychiatric: Alert, Oriented x3, servomechanism designer II-XII Norm as Tested, Abnormal Gait, Depressed Affect, Motor Weakness ( all extremities) Skin: Normal Color, Warm/Dry Lymphatic: No Adenopathy Results/Procedures Lab Patient resulted labs reviewed. FIM Transfers Therapy Code Descriptions/Definitions Functional [place] Measure: 0=Not Assessed/NA 4=Minimal Assistance 1=Total Assistance 5=Supervision or Setup 2=Maximal Assistance 6=Modified [place] 3=Moderate Assistance 7=Complete IndependenceSCALE: Activities may be completed with or without assistive devices. 0-Xfitvbylgp-vtugazz completes the activity by him/herself with no assistance from a helper. 5-Set-up or Clean-up Assistance-helper sets up or cleans up; patient completes activity. [place] assists only prior to or following the activity. 4-Supervision or Touching Assistance-helper provides verbal cues and/or touching/steadying and/or contact guard assistance as patient completes activity. Assistance may be provided throughout the activity or intermittently. 3-Partial/Moderate Assistance-helper does LESS THAN HALF the effort. [place] lifts, holds or supports trunk or limbs, but provides less than half the effort. 2-Substantial/Maximal Assistance-helper does MORE THAN HALF the effort. [place] lifts or holds trunk or limbs and provides more than half the effort. 9-Nigckjcmt-msfssm does ALL the effort. Patient does none of the effort to complete the activity. Or, the assistance of 2 or more helpers is required for the patient to complete the activity. If activity was not attempted, code reason: 7-Patient Refused. 9-Not Applicable-not attempted and the patient did not perform the activity before the current illness, exacerbation or injury. 10-Not Attempted due to Environmental Limitations-(lack of equipment, weather restraints, etc.). 88-Not Attempted due to Medical Conditions or Safety Concerns. Roll Left to Right (QC): 4 (SBA ) Sit to Lying (QC): 4 (SBA ) Sit to Stand (QC): 4 Chair/Wpk-ca-Dkdui Xfer(QC): 4 Car Transfer (QC): 4 (SBA ) Gait Training Does the Patient Walk?: Yes Walk 10 feet (QC): 4 Walk 50 ft with 2 Turns(QC): 4 Walk 150 ft (QC): 4 Walking 10ft/uneven surface-QC: 4 (SBA ) Gait Persons Needed: 1 Gait Assistive Device: FWW Wheelchair Training Does the Pt Use a Wheelchair?: No Wheel 50 ft with 2 turns (QC): 9 Wheel 150 ft (QC): 9 Type of Wheelchair: N/A Stair Training #of Steps: 12 1 Step (curb) (QC): 4 (SBA ) 4 Steps (QC): 4 (SBA ) 12 Steps (QC): 4 (SBA ) Balance Picking up an Object (QC): 4 (SBA with music department chair ) ADL-Treatment Eating (QC): 5 (set up to open containers and cut food) Oral Hygiene (QC): 5 (assist to open container. Pt able to use mouthwash with set up assist. Pt doesn't use toothbrush/toothpaste at PLOF.) Shower/Bathe Self (QC): 4 (Min VCs for precautions. ) Upper Body Dressing (QC): 3 (Pt able to don/doff shirt with set up. Assist with C collar. 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
[2023-02-04 06:01] VITALS: BP 155/74
[2023-02-04] MEDS: POTASSIUM CHLORIDE 20 MEQ TABLET PO SCH (06:01)
[2023-02-04] MEDS: FAMOTIDINE 20 MG TABLET PO SCH ×2 (06:01→15:39)
[2023-02-04] MEDS: hydrALAZINE 25 MG TABLET PO SCH ×3 (06:02→21:22)
[2023-02-04] MEDS: CATHETER FLUSH 10 ML SYR IVP SCH ×3 (06:02→21:23)
[2023-02-04 08:00] VITALS: BP 147/70
--- NOTE | 2023-02-04 09:01 | Physical Therapy Daily Note ---
PT Daily Note-Current Subjective Pt reports he is doing well and is agreeable to PT. Pt reported LBP at 4/10. Pain Numeric Pain Scale: 4 Location: Lower Location Body Site: Back Section J - Health Conditions 1. Rarely or not at all 2. Occasionally 3. Frequently 4. Almost constantly 8. Unable to answer Pain Effect on Sleep: 1 Pain Interference with Therapy: 1 Pain Interference w/Day-to-Day: 1 Transfers SCALE: Activities may be completed with or without assistive devices. 3-Wqwtnwmyvu-hlgbuas completes the activity by him/herself with no assistance from a helper. 5-Set-up or Clean-up Assistance-helper sets up or cleans up; patient completes activity. [place] assists only prior to or following the activity. 4-Supervision or Touching Assistance-helper provides verbal cues and/or to uching/steadying and/or contact guard assistance as patient completes activity. Assistance may be provided throughout the activity or intermittently. 3-Partial/Moderate Assistance-helper does LESS THAN HALF the effort. [place] lifts, holds or supports trunk or limbs, but provides less than half the effort. 2-Substantial/Maximal Assistance-helper does MORE THAN HALF the effort. [place] lifts or holds trunk or limbs and provides more than half the effort. 6-Doombntno-jtxnmh does ALL the effort. Patient does none of the effort to complete the activity. Or, the assistance of 2 or more helpers is required for the patient to complete the activity. If activity was not attempted, code reason: 7-Patient Refused. 9-Not Applicable-not attempted and the patient did not perform the activity before the current illness, exacerbation or injury. 10-Not Attempted due to Environmental Limitations-(lack of equipment, weather restraints, etc.). 88-Not Attempted due to Medical Conditions or Safety Concerns. Sit to Stand (QC): 6 Chair/Ttq-rs-Amrtk Xfer(QC): 6 Weight Bearing Right Lower Extremity: Right Full Weight Bearing Left Lower Extremity: Left Full Weight Bearing Gait Training Does the Patient Walk?: Yes Distance: 355ft x 2 Walk 10 feet (QC): 4 Walk 50 ft with 2 Turns(QC): 4 Walk 150 ft (QC): 4 Gait Persons Needed: 1 Gait Assistive Device: FWW Wheelchair Training Does the Pt Use a Wheelchair?: No Treatments Pt completed functional transfers with Mod I. Pt ambulated 355ft x 2 with the FWW and SBA/Mod I. Pt completed 20 min on the nu-step on level 2. Pt completed seated B LE Ther Ex x 15 reps each with the red Tband. After treatment session, pt sitting in the recliner with call light in reach and all needs met. Pt will require a FWW upon d/c. The pt has a mobility limitation that significantly impairs his ability to participate in one or more mobility-related activities of daily living in the home. The pt is able to safely use the FWW and the functional mobility deficit can be sufficiently resolved with use of the FWW. Assessment Current Status: Good Progress Pt tolerated PT well with good effort PT [facility] Goals Claim Clerk Goals PT Claim Clerk Goals Time Frame: Feb 16, 2023 Roll Left & Right (QC): 6 (Pt will be Mod I with all aspects of functional mobility, in order to safely return home with spouse. ) Sit to Lying (QC): 6 (Pt will be Mod I with all aspects of functional mobility, in order to safely return home with spouse. ) Lying-Sitting on Side/Bed(QC): 6 (Pt will be Mod I with all aspects of functional mobility, in order to safely return home with spouse. ) Sit to Stand (QC): 6 (Pt will be Mod I with all aspects of functional mobility, in order to safely return home with spouse. ) Chair/Qua-ou-[place] Xfer(QC): 6 (Pt will be Mod I with all aspects of functional mobility, in order to safely return home with spouse. ) Toilet Transfer (QC): 6 (Pt will be Mod I with all aspects of functional mobility, in order to safely return home with spouse. ) Car Transfer (QC): 6 (Pt will be Mod I with all aspects of functional mobility, in order to safely return home with spouse. ) Does the Patient Walk: Yes Walk 10 feet (QC): 6 (Pt will be Mod I with all aspects of functional mobility, in order to safely return home with spouse. ) Walk 50ft with 2 Turns (QC): 6 (Pt will be Mod I with all aspects of functional mobility, in order to safely return home with spouse. ) Walk 150 ft (QC): 6 (Pt will be Mod I with all aspects of functional mobility, in order to safely return home with spouse. ) Walking 10ft on Uneven Surface: 6 (Pt will be Mod I with all aspects of functional mobility, in order to safely return home with spouse. ) 1 Step (curb) (QC): 6 (Pt will be Mod I with all aspects of functional mobility, in order to safely return home with spouse. ) 4 Steps (QC): 6 (Pt will be Mod I with all aspects of functional mobility, in order to safely return home with spouse. ) 12 Steps (QC): 6 (Pt will be Mod I with all aspects of functional mobility, in order to safely return home with spouse. ) Picking up an Object (QC): 6 (Pt will be Mod I with all aspects of functional mobility, in order to safely return home with spouse. ) Does the Pt use WC or Scooter?: No Wheel 50 feet with 2 turns (QC: 9 Type: N/A Wheel 150 feet: 9 Type: N/A PT Plan Problem List Problem List: Activity Tolerance, Functional Strength, Safety, Balance, Gait, Transfer, Bed Mobility, ROM Treatment/Plan Treatment Plan: Continue Plan of Care Treatment Plan: Bed Mobility, Education, Functional Activity Jody, Functional Strength, Group Therapy, Gait, Safety, Therapeutic Exercise, Transfers Treatment Duration: Feb 16, 2023 Frequency: At least 5 of 7 days/Wk (IRF) Estimated Hrs Per Day: 1.5 hours per day Patient and/or Family Agrees t: Yes Safety Risks/Education Patient Education: Gait Training, Transfer Techniques, Correct Positioning, Safety Issues Teaching Recipient: Patient Teaching Methods: Demonstration, Discussion Response to Teaching: Verbalize Understanding, Return Demonstration, Reinforcement Needed Discharge Recommendations Therapy Discharge Recommendati: Home & Family, Post Acute PT Equpiment Recommendations-D/C: Front Wheeled Walker Discharge Status/Home Program Cont per POC Barriers to Progress Weakness/endurance Target Placement Home with spouse Time Time In: 800 Time Out: 900 DATE: Feb 04, 2023 Total Billed Treatment Time: 60 Total Billed Treatment 60 min 1 visit GT x 1 EX x 1 FA x 2 HODAN VALENZUELA PT Feb 04, 2023 09:01
[2023-02-04] MEDS: cefTRIAXone 2,000 MG/NS 50 ML IVPB IV SCH ×2 (09:23)
[2023-02-04] MEDS: NICOTINE 21 MG PATCH TD SCH (09:24)
[2023-02-04] MEDS: BUMETANIDE 1 MG TABLET PO SCH (09:27)
[2023-02-04] MEDS: ENOXAPARIN 40 MG/0.4 ML SYRINGE SC SCH (09:27)
[2023-02-04] MEDS: GABAPENTIN 100 MG CAPSULE PO SCH ×3 (09:27→21:22)
[2023-02-04] MEDS: LACTOBACILLUS ACIDOPHILUS (PROBIOTIC) CAPSULE PO SCH ×2 (09:27→21:22)
[2023-02-04] MEDS: FOLIC ACID 1 MG TAB PO SCH (09:28)
[2023-02-04] MEDS: NIFEdipine Extended Release 30 MG TABLET PO SCH (09:28)
[2023-02-04] MEDS: carvediloL 12.5 MG TABLET PO SCH ×2 (09:28→17:50)
[2023-02-04] MEDS: PANTOPRAZOLE 40 MG TABLET PO SCH (09:28)
[2023-02-04] MEDS: MONTELUKAST 10 MG TABLET PO SCH (09:28)
[2023-02-04] MEDS: amLODIPine 10 MG TABLET PO SCH (09:28)
[2023-02-04] MEDS: FLUTICASONE/VILANTEROL 100/25 MCG (7 DOSES) IH SCH (09:33)
[2023-02-04] MEDS: DOCUSATE SODIUM 100 MG CAPSULE PO SCH ×2 (09:34→21:23)
[2023-02-04] MEDS: NICOTINE PATCH REMOVAL TP SCH (09:34)
[2023-02-04] MEDS: TIOTROPIUM INH 4 GM (SPIRIVA Respimat) IH SCH (09:34)
[2023-02-04] MEDS: SENNA W/DOCUSATE TABLET PO SCH ×2 (09:35→21:24)
[2023-02-04] MEDS: ZINC OXIDE 40% (Butt Paste MAX/Desitin) 57 gm TOP SCH ×2 (09:36→20:51)
[2023-02-04] MEDS: oxyCODONE IMMEDIATE RELEASE 5 MG TABLET PO PRN (09:40)
--- NOTE | 2023-02-04 12:41 | Occupational Ther Daily Note ---
OT Current Status-Daily Note Subjective Pt pleasant and very agreeable to therapy. Mental Status/Objective Patient Orientation: Person, Place, Time, Situation Attachments: IV, Oxygen (2L oxygen ) ADL-Treatment Therapy Code Descriptions/Definitions Functional [place] Measure: 0=Not Assessed/NA 4=Minimal Assistance 1=Total Assistance 5=Supervision or Setup 2=Maximal Assistance 6=Modified [place] 3=Moderate Assistance 7=Complete IndependenceSCALE: Activities may be completed with or without assistive devices. 8-Jisoavefrq-vvtbsfc completes the activity by him/herself with no assistance from a helper. 5-Set-up or Clean-up Assistance-helper sets up or cleans up; patient completes a ctivity. [place] assists only prior to or following the activity. 4-Supervision or Touching Assistance-helper provides verbal cues and/or touching/steadying and/or contact guard assistance as patient completes activity. Assistance may be provided throughout the activity or intermittently. 3-Partial/Moderate Assistance-helper does LESS THAN HALF the effort. [place] lifts, holds or supports trunk or limbs, but provides less than half the effort. 2-Substantial/Maximal Assistance-helper does MORE THAN HALF the effort. [place] lifts or holds trunk or limbs and provides more than half the effort. 9-Adduhpdze-fotwyc does ALL the effort. Patient does none of the effort to complete the activity. Or, the assistance of 2 or more helpers is required for the patient to complete the activity. If activity was not attempted, code reason: 7-Patient Refused. 9-Not Applicable-not attempted and the patient did not perform the activity before the current illness, exacerbation or injury. 10-Not Attempted due to Environmental Limitations-(lack of equipment, weather restraints, etc.). 88-Not Attempted due to Medical Conditions or Safety Concerns. Oral Hygiene (QC): 5 (Pt completed oral care in sitting with setup. ) Toileting Hygiene (QC): 6 (Pt completed toilet hygiene independently with no cues to adhere to precautions. ) Toilet Transfer (QC): 6 (Pt completed toilet transfer with independently with no cues for safety or to adhere to precautions.) Other Treatment Pt completed dynamic standing activity to increase endurance and functional strength. Pt completed community mobility with FWW and CGA, navigating different terrains and performing directionality with min cues. Completed 1 set of 10 for shoulder flexion and abduction, bicep curls and window clerk strengthening exercises to increase ADL independence and functional strength and endurance. Pt still having difficulty writing due to decreased sensation in hand and fingertips, trialed built up handle for pen to increase legibility, though no improvement was noted and pt prefers to complete task without adaptive devices. Education OT Patient Education: Correct positioning, Energy conservation, Exercise progr am, Progress toward Goal/Update tx plan, Purpose of tx/functional activities, Reviewed precautions, Rehab process, Safety issues Teaching Recipient: Patient Teaching Methods: Demonstration, Discussion Response to Teaching: Verbalize Understanding, Return Demonstration OT Alf Goals Alf Goals Time Frame: Feb 13, 2023 Acute change in mental status: 0 Inattention: 0 Disorganized thinkin Altered level of consciousness: 0 Eating (QC): 6 Oral Hygiene (QC): 6 Toileting Hygiene (QC): 6 Shower/Bathe Self (QC): 6 Upper Body Dressing (QC): 6 Lower Body Dressing (QC): 6 On/Off Footwear (QC): 6 Additional Goals: 1-Demonstrate ADL Tasks, 2-Verbalize Understanding, 3- ImproveStrength/Jody 1=Demonstrate adherence to instructed precautions during ADL tasks. 2=Patient will verbalize/demonstrate understanding of assistive devices/modifications for ADL. 3=Patient will improve strength/tolerance for activity to enable patient to perform ADL's. OT Education/Plan Problem List/Assessment Assessment: Decreased Activ Tolerance, Decreased UE Strength, Impaired Funct Balance, Impaired I ADL's, Impaired Self-Care Skills Discharge Recommendations Plan/Recommendations: Continue POC Treatment Plan/Plan of Care Patient would benefit from OT for education, treatment and training to promote independence in ADL's, mobility, safety and/or upper extremity function for ADL's. Plan of Care: ADL Retraining, Functional Mobility, Group Exercise/Act as Ind, UE Funct Exercise/Act Treatment Duration: Feb 13, 2023 Frequency: At least 5 of 7 days/Wk (IRF) Estimated Hrs Per Day: 1.5 hours per day Agreement: Yes Rehab Potential: Good Time Start Time: 10:00 Stop Time: 11:30 DATE: Feb 04, 2023 Total Time Billed (hr/min): 90 Billed Treatment Time 1, ADL 2, FA 3, EX 1 Angel Cobian Feb 04, 2023 12:41
[2023-02-04] MEDS ORDERED: CEFT2VIA12 IV (13:41)
--- NOTE | 2023-02-04 14:46 | Occupational Ther Daily Note ---
OT Current Status-Daily Note Subjective Pt agreeable to OT Tx. He does not verbalize any pain during tx. ADL-Treatment Therapy Code Descriptions/Definitions Functional [place] Measure: 0=Not Assessed/NA 4=Minimal Assistance 1=Total Assistance 5=Supervision or Setup 2=Maximal Assistance 6=Modified [place] 3=Moderate Assistance 7=Complete IndependenceSCALE: Activities may be completed with or without assistive devices. 6-Gzgwaixbof-rfomavx completes the activity by him/herself with no assistance from a helper. 5-Set-up or Clean-up Assistance-helper sets up or cleans up; patient completes activity. [place] assists only prior to or following the activity. 4-Supervision or Touching Assistance-helper provides verbal cues and/or touc teja/steadying and/or contact guard assistance as patient completes activity. Assistance may be provided throughout the activity or intermittently. 3-Partial/Moderate Assistance-helper does LESS THAN HALF the effort. [place] lifts, holds or supports trunk or limbs, but provides less than half the effort. 2-Substantial/Maximal Assistance-helper does MORE THAN HALF the effort. [place] lifts or holds trunk or limbs and provides more than half the effort. 8-Yaksvzzhg-ygmzzo does ALL the effort. Patient does none of the effort to complete the activity. Or, the assistance of 2 or more helpers is required for the patient to complete the activity. If activity was not attempted, code reason: 7-Patient Refused. 9-Not Applicable-not attempted and the patient did not perform the activity before the current illness, exacerbation or injury. 10-Not Attempted due to Environmental Limitations-(lack of equipment, weather restraints, etc.). 88-Not Attempted due to Medical Conditions or Safety Concerns. Other Treatment Pt agreeable to OT Tx. Pt stood from recliner independently, then performed functional mobility around [facility] common area and into therapy gym, OT assisted only with O2 tank management. OT Tx focused on increasing fine motor strength a nd coordination. Pt removed beads from moderate resistance (red) theraputty, able to locate all beads without cues. Pt performed functional mobility around [facility] common area/2nd floor and back to his room, OT only assisted with O2 tank. Post tx, pt in recliner, call light in reach and all needs met. Education OT Patient Education: Correct positioning, Energy conservation, Modified ADL techniques, Progress toward Goal/Update tx plan, Purpose of tx/functional activities, Rehab process Teaching Recipient: Patient Teaching Methods: Discussion Response to Teaching: Verbalize Understanding OT Fpc Goals Lab Analyst Goals Time Frame: Feb 13, 2023 Acute change in mental status: 0 Inattention: 0 Disorganized thinkin Altered level of consciousness: 0 Eating (QC): 6 Oral Hygiene (QC): 6 Toileting Hygiene (QC): 6 Shower/Bathe Self (QC): 6 Upper Body Dressing (QC): 6 Lower Body Dressing (QC): 6 On/Off Footwear (QC): 6 Additional Goals: 1-Demonstrate ADL Tasks, 2-Verbalize Understanding, 3-Im proveStrength/Jody 1=Demonstrate adherence to instructed precautions during ADL tasks. 2=Patient will verbalize/demonstrate understanding of assistive devices/modifications for ADL. 3=Patient will improve strength/tolerance for activity to enable patient to perform ADL's. OT Education/Plan Problem List/Assessment Assessment: Decreased Activ Tolerance, Decreased UE Strength, Impaired Funct Balance, Impaired I ADL's, Impaired Self-Care Skills Discharge Recommendations Plan/Recommendations: Continue POC Treatment Plan/Plan of Care Patient would benefit from OT for education, treatment and training to promote independence in ADL's, mobility, safety and/or upper extremity function for ADL's. Plan of Care: ADL Retraining, Functional Mobility, Group Exercise/Act as Ind, UE Funct Exercise/Act Treatment Duration: Feb 13, 2023 Frequency: At least 5 of 7 days/Wk (IRF) Estimated Hrs Per Day: 1.5 hours per day Agreement: Yes Rehab Potential: Good Time Start Time: 13:30 Stop Time: 14:00 DATE: Feb 04, 2023 Total Time Billed (hr/min): 30 Billed Treatment Time 1, FA 2 30 extra mins obtained by OT on this date JOHNSON PANG OT Feb 04, 2023 14:46
[2023-02-04] MEDS: HYDROcodone/ACETAMINOPHEN 10/325 TABLET PO PRN ×2 (15:43→21:25)
[2023-02-04 20:25] VITALS: BP 133/63
[2023-02-04] MEDS: LATANOPROST 0.005% OPHTH SOLN 2.5 ML OU SCH (20:51)
[2023-02-04] MEDS: HYPOCHLOROUS ACID/NaCl WOUND SOLN 250 ML IR PRN (20:52)
[2023-02-05] MEDS: hydrALAZINE 25 MG TABLET PO SCH ×3 (05:44→21:51)
[2023-02-05] MEDS: CATHETER FLUSH 10 ML SYR IVP SCH ×3 (05:45→20:25)
[2023-02-05] MEDS: POTASSIUM CHLORIDE 20 MEQ TABLET PO SCH (06:47)
[2023-02-05] MEDS: FAMOTIDINE 20 MG TABLET PO SCH ×2 (06:47→17:12)
[2023-02-05 07:25] VITALS: BP 146/70
[2023-02-05] MEDS: FOLIC ACID 1 MG TAB PO SCH (08:00)
[2023-02-05] MEDS: NIFEdipine Extended Release 30 MG TABLET PO SCH (08:00)
[2023-02-05] MEDS: PANTOPRAZOLE 40 MG TABLET PO SCH (08:00)
[2023-02-05] MEDS: amLODIPine 10 MG TABLET PO SCH (08:00)
[2023-02-05] MEDS: BUMETANIDE 1 MG TABLET PO SCH (08:00)
[2023-02-05] MEDS: MONTELUKAST 10 MG TABLET PO SCH (08:00)
[2023-02-05] MEDS: LACTOBACILLUS ACIDOPHILUS (PROBIOTIC) CAPSULE PO SCH ×2 (08:00→20:25)
[2023-02-05] MEDS: GABAPENTIN 100 MG CAPSULE PO SCH ×3 (08:00→20:25)
[2023-02-05] MEDS: NICOTINE 21 MG PATCH TD SCH (08:00)
[2023-02-05] MEDS: carvediloL 12.5 MG TABLET PO SCH ×2 (08:00→17:12)
[2023-02-05] MEDS: HYDROcodone/ACETAMINOPHEN 10/325 TABLET PO PRN ×2 (08:01→20:24)
--- NOTE | 2023-02-05 08:01 | PM&R Progress Note ---
Subjective HPI/CC On Admission Date Seen by Provider: Feb 05, 2023 Time Seen by Provider: 12:00 Subjective/Events-last exam 02/05/2023: Patient doing well No pain reported Improved overall DC tomorrow 02/04/2023: Patient doing a lot better Participation is good Set for discharge Thursday or Thursday No falls 02/03/2023: Patient doing well Denies any pain right now Giving IV iron infusion Participation is good Nicotine patch given 02/02/2023: Patient having a pretty good day Slept fairly well last night No falls Pain is controlled Labs reviewed Iron and B12 pending Review of Systems General: Fatigue, Malaise Musculoskeletal: neck pain Objective Exam Vital Signs Vital Signs Date Time Temp Pulse Resp B/P (MAP) Pulse Ox O2 Delivery O2 Flow Rate FiO2 02/05/23 19:58 36.6 94 18 144/68 (93) 97 Nasal Cannula 2.00 Capillary Refill : General Appearance: No Apparent Distress, WD/WN, Chronically ill HEENT: PERRL/EOMI, Normal ENT Inspection, Pharynx Normal Neck: Full Range of Motion, Normal Inspection, Non Tender, Supple, Carotid Bruit, Other (Cervical spine collar in place) Respiratory: Chest Non Tender, Lungs Clear, Normal Breath Sounds, No Accessory Muscle Use, No Respiratory Distress Cardiovascular: Regular Rate, Rhythm, No Edema, No Gallop, No JVD, No Murmur, Normal Peripheral Pulses Gastrointestinal: Normal Bowel Sounds, No Organomegaly, No Pulsatile Mass, Non Tender, Soft Back: Normal Inspection, No CVA Tenderness, No Vertebral Tenderness, Decreased Range of Motion ( of neck) Extremity: Normal Capillary Refill, Normal Inspection, Normal Range of Motion, Non Tender, No Calf Tenderness, No Pedal Edema Neurologic/Psychiatric: Alert, Oriented x3, foreign diplomat II-XII Norm as Tested, Abnormal Gait, Depressed Affect, Motor Weakness ( all extremities) Skin: Normal Color, Warm/Dry Lymphatic: No Adenopathy Results/Procedures Lab Laboratory Tests 02/05/23 09:24 Patient resulted labs reviewed. FIM Transfers Therapy Code Descriptions/Definitions Functional [place] Measure: 0=Not Assessed/NA 4=Minimal Assistance 1=Total Assistance 5=Supervision or Setup 2=Maximal Assistance 6=Modified [place] 3=Moderate Assistance 7=Complete IndependenceSCALE: Activities may be completed with or without assistive devices. 2-Admzbektpg-yqnieqc completes the activity by him/herself with no assistance from a helper. 5-Set-up or Clean-up Assistance-helper sets up or cleans up; patient completes activity. [place] assists only prior to or following the activity. 4-Supervision or Touching Assistance-helper provides verbal cues and/or touching/steadying and/or contact guard assistance as patient completes activity. Assistance may be provided throughout the activity or intermittently. 3-Partial/Moderate Assistance-helper does LESS THAN HALF the effort. [place] li fts, holds or supports trunk or limbs, but provides less than half the effort. 2-Substantial/Maximal Assistance-helper does MORE THAN HALF the effort. [place] lifts or holds trunk or limbs and provides more than half the effort. 6-Okdsdtovu-xmlpbj does ALL the effort. Patient does none of the effort to complete the activity. Or, the assistance of 2 or more helpers is required for the patient to complete the activity. If activity was not attempted, code reason: 7-Patient Refused. 9-Not Applicable-not attempted and the patient did not perform the activity before the current illness, exacerbation or injury. 10-Not Attempted due to Environmental Limitations-(lack of equipment, weather restraints, etc.). 88-Not Attempted due to Medical Conditions or Safety Concerns. Roll Left to Right (QC): 4 (SBA ) Sit to Lying (QC): 4 (SBA ) Sit to Stand (QC): 6 Chair/Got-lj-Qvxei Xfer(QC): 6 Car Transfer (QC): 4 (SBA ) Gait Training Does the Patient Walk?: Yes Distance: 355ft x 2 Walk 10 feet (QC): 4 Walk 50 ft with 2 Turns(QC): 4 Walk 150 ft (QC): 4 Walking 10ft/uneven surface-QC: 4 (SBA ) Gait Persons Needed: 1 Gait Assistive Device: FWW Wheelchair Training Does the Pt Use a Wheelchair?: No Wheel 50 ft with 2 turns (QC): 9 Wheel 150 ft (QC): 9 Type of Wheelchair: N/A Stair Training #of Steps: 12 1 Step (curb) (QC): 4 (SBA ) 4 Steps (QC): 4 (SBA ) 12 Steps (QC): 4 (SBA ) Balance Picking up an Object (QC): 4 (SBA with house mover helper ) ADL-Treatment Eating (QC): 5 (set up to open containers and cut food) Oral Hygiene (QC): 5 (Pt completed oral care in sitting with setup. ) Shower/Bathe Self (QC): 4 (Min VCs for precautions. ) Upper Body Dressing (QC): 3 (Pt able to don/doff shirt with set up. Assist with C collar. ) Lower Body Dressing (QC): 4 (SBA, min VCs for precautions) On/Off Footwear (QC): 3 (Assistance with tessie wraps, able to don/doff gripper socks with min VCs) Toileting Hygiene (QC): 6 (Pt completed toilet hygiene independently with no cues to adhere to precautions. 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
[2023-02-05] MEDS: SENNA W/DOCUSATE TABLET PO SCH ×2 (08:02→20:20)
[2023-02-05] MEDS: ENOXAPARIN 40 MG/0.4 ML SYRINGE SC SCH (08:02)
[2023-02-05] MEDS: ZINC OXIDE 40% (Butt Paste MAX/Desitin) 57 gm TOP SCH ×2 (08:03→20:25)
[2023-02-05] MEDS: DOCUSATE SODIUM 100 MG CAPSULE PO SCH ×2 (08:03→20:20)
[2023-02-05] MEDS: FLUTICASONE/VILANTEROL 100/25 MCG (7 DOSES) IH SCH (08:41)
[2023-02-05] MEDS: TIOTROPIUM INH 4 GM (SPIRIVA Respimat) IH SCH (08:41)
[2023-02-05] MEDS: cefTRIAXone 2,000 MG/NS 50 ML IVPB IV SCH ×2 (09:26)
[2023-02-05] MEDS: IRON SUCROSE 200 MG/10 ML VIAL IV SCH (09:26)
--- NOTE | 2023-02-05 09:28 | Physical Therapy Daily Note ---
PT Daily Note-Current Subjective Pt is agreeable to PT. Denies pain. Pain Numeric Pain Scale: 0-No Pain Location: No Pain Reported Section J - Health Conditions 1. Rarely or not at all 2. Occasionally 3. Frequently 4. Almost constantly 8. Unable to answer Pain Effect on Sleep: 1 Pain Interference with Therapy: 1 Pain Interference w/Day-to-Day: 1 Mental Status Attachments: Oxygen (2L ), IV Transfers SCALE: Activities may be completed with or without assistive devices. 2-Nayhflvgia-tjixyzg completes the activity by him/herself with no assistance from a helper. 5-Set-up or Clean-up Assistance-helper sets up or cleans up; patient completes activity. [place] assists only prior to or following the activity. 4-Supervision or Touching Assistance-helper provides verbal cues and/or touching/steadying and/or contact guard assistance as patient completes activity. Assistance may be provided throughout the activity or intermittently. 3-Partial/Moderate Assistance-helper does LESS THAN HALF the effort. [place] lifts, holds or supports trunk or limbs, but provides less than half the effort. 2-Substantial/Maximal Assistance-helper does MORE THAN HALF the effort. [place] lifts or holds trunk or limbs and provides more than half the effort. 5-Dirhrcgyi-xiabpc does ALL the effort. Patient does none of the effort to complete the activity. Or, the assistance of 2 or more helpers is required for the patient to complete the activity. If activity was not attempted, code reason: 7-Patient Refused. 9-Not Applicable-not attempted and the patient did not perform the activity before the current illness, exacerbation or injury. 10-Not Attempted due to Environmental Limitations-(lack of equipment, weather restraints, etc.). 88-Not Attempted due to Medical Conditions or Safety Concerns. Roll Left & Right (QC): 6 Sit to Lying (QC): 6 Lying to Sitting/Side of Bed(Q: 6 Sit to Stand (QC): 6 Chair/Yyg-ut-Mznvy Xfer(QC): 6 Toilet Transfer (QC): 6 Car Transfer (QC): 6 Weight Bearing Right Lower Extremity: Right Full Weight Bearing Left Lower Extremity: Left Full Weight Bearing Gait Training Does the Patient Walk?: Yes Distance: 355ft x 2 Walk 10 feet (QC): 6 Walk 50 ft with 2 Turns(QC): 6 Walk 150 ft (QC): 6 Walking 10ft/uneven surface-QC: 6 Gait Assistive Device: FWW Wheelchair Training Does the Pt Use a Wheelchair?: No Wheel 50 ft with 2 turns (QC): 9 Wheel 150 ft (QC): 9 Type of Wheelchair: N/A Stair Training Stair Training: Handrails/: 2 handrails #of Steps: 12 1 Step (curb) (QC): 6 4 Steps (QC): 6 12 Steps (QC): 6 Stairs: Pattern: Step to Balance Picking up an Object (QC): 6 Special Test Comments [facility] standing balance scale = 4+/5 Treatments QCs completed on this date. Pt is Mod I with all aspects of functional mobility and does not use a w/c. Pt completed bed mobility and functional transfers with Mod I. Pt ambulated 355ft x 2 with the FWW and Mod I. Pt completed seated B LE Ther Ex x 15 reps each with the red Tband. Pt completed 15 min on the nu-step on level 3. After treatment session, pt using the restroom and edu to use call light when finished. All needs met. Assessment Current Status: Good Progress Pt tolerated PT well with good effort. Pt has progressed well with PT and has met all set goals. Plan to d/c home tomorrow or the next day (02/06 or 02/07) PT Shelter Goals Game Room Attendant Goals PT Game Room Attendant Goals Time Frame: Feb 16, 2023 Roll Left & Right (QC): 6 (Pt will be Mod I with all aspects of functional mobility, in order to safely return home with spouse. ) Sit to Lying (QC): 6 (Pt will be Mod I with all aspects of functional mobility, in order to safely return home with spouse. ) Lying-Sitting on Side/Bed(QC): 6 (Pt will be Mod I with all aspects of functional mobility, in order to safely return home with spouse. ) Sit to Stand (QC): 6 (Pt will be Mod I with all aspects of functional mobility, in order to safely return home with spouse. ) Chair/Crw-yw-Ftbmc Xfer(QC): 6 (Pt will be Mod I with all aspects of functional mobility, in order to safely return home with spouse. ) Toilet Transfer (QC): 6 (Pt will be Mod I with all aspects of functional mobility, in order to safely return home with spouse. ) Car Transfer (QC): 6 (Pt will be Mod I with all aspects of functional mobility, in order to safely return home with spouse. ) Does the Patient Walk: Yes Walk 10 feet (QC): 6 (Pt will be Mod I with all aspects of functional mobility, in order to safely return home with spouse. ) Walk 50ft with 2 Turns (QC): 6 (Pt will be Mod I with all aspects of functional mobility, in order to safely return home with spouse. ) Walk 150 ft (QC): 6 (Pt will be Mod I with all aspects of functional mobility, in order to safely return home with spouse. ) Walking 10ft on Uneven Surface: 6 (Pt will be Mod I with all aspects of functional mobility, in order to safely return home with spouse. ) 1 Step (curb) (QC): 6 (Pt will be Mod I with all aspects of functional mobility, in order to safely return home with spouse. ) 4 Steps (QC): 6 (Pt will be Mod I with all aspects of functional mobility, in order to safely return home with spouse. ) 12 Steps (QC): 6 (Pt will be Mod I with all aspects of functional mobility, in order to safely return home with spouse. ) Picking up an Object (QC): 6 (Pt will be Mod I with all aspects of functional mobility, in order to safely return home with spouse. ) Does the Pt use WC or Scooter?: No Wheel 50 feet with 2 turns (QC: 9 Type: N/A Wheel 150 feet: 9 Type: N/A PT Plan Problem List Problem List: Activity Tolerance, Functional Strength, Safety, Balance, Gait, Transfer, Bed Mobility, ROM Treatment/Plan Treatment Plan: Continue Plan of Care Treatment Plan: Bed Mobility, Education, Functional Activity Jody, Functional Strength, Group Therapy, Gait, Safety, Therapeutic Exercise, Transfers Treatment Duration: Feb 16, 2023 Frequency: At least 5 of 7 days/Wk (IRF) Estimated Hrs Per Day: 1.5 hours per day Patient and/or Family Agrees t: Yes Safety Risks/Education Patient Education: Gait Training, Transfer Techniques, Steps, Correct Positioning, Safety Issues Teaching Recipient: Patient Teaching Methods: Demonstration, Discussion Response to Teaching: Verbalize Understanding, Return Demonstration Discharge Recommendations Therapy Discharge Recommendati: Home & Family Equpiment Recommendations-D/C: Front Wheeled Walker Discharge Status/Home Program Cont per POC; Plan to d/c home tomorrow or the next day (02/06 or 02/07) Barriers to Progress Weakness, endurance Target Placement Home with spouse Time Time In: 800 Time Out: 900 DATE: Feb 05, 2023 Total Billed Treatment Time: 60 Total Billed Treatment 60 min 1 visit EX x 1 FA x 1 GT x 2 HODAN VALENZUELA PT Feb 05, 2023 09:28
[2023-02-05 09:32] LABS: BASOPHILS % (AUTO) 0 % (0-10); EOSINOPHILS # (AUTO) 0.2 10^3/uL (0.0-0.3); EOSINOPHILS % (AUTO) 2 % (0-10); HEMATOCRIT 21 % (40-54); LYMPHOCYTES # (AUTO) 1.9 10^3/uL (1.0-4.0); LYMPHOCYTES % (AUTO) 28 % (12-44); MEAN CORPUSCULAR HEMOGLOBIN 30 pg (25-34); MEAN CORPUSCULAR HGB CONC 31 g/dL (32-36); MEAN CORPUSCULAR VOLUME 95 fL (80-99); MEAN PLATELET VOLUME 9.2 fL (9.0-12.2); MONOCYTES # (AUTO) 0.7 10^3/uL (0.0-1.0); MONOCYTES % (AUTO) 10 % (0-12); NEUTROPHILS # (AUTO) 4.1 10^3/uL (1.8-7.8); NEUTROPHILS % (AUTO) 60 % (42-75); PLATELET COUNT 238 10^3/uL (130-400); WHITE BLOOD COUNT 6.8 10^3/uL (4.3-11.0)
[2023-02-05 09:36] LABS: HEMOGLOBIN 6.5 g/dL (13.3-17.7)
[2023-02-05 09:43] LABS: ALBUMIN 2.3 GM/DL (3.2-4.5); POTASSIUM 5.1 MMOL/L (3.6-5.0)
[2023-02-05 09:44] LABS: CALCIUM 8.2 MG/DL (8.5-10.1)
[2023-02-05 09:46] LABS: TOTAL PROTEIN 5.6 GM/DL (6.4-8.2)
[2023-02-05 09:48] LABS: ANISOCYTOSIS SLIGHT; BAND NEUTROPHILS 1 %; BASOPHILS % (MANUAL) 1 %; BILIRUBIN,TOTAL 0.2 MG/DL (0.1-1.0); EOSINOPHILS % (MANUAL) 0 %; LYMPHOCYTES % (MANUAL) 29 %; MONOCYTES % (MANUAL) 10 %; NEUTROPHILS % (MANUAL) 59 %
[2023-02-05 09:49] LABS: CREATININE SERUM 1.1 MG/DL (0.60-1.30)
[2023-02-05] MEDS ORDERED: NS IV 500 ML 500 ML IV SCH ×3 (10:00→12:30)
[2023-02-05] MEDS: NICOTINE PATCH REMOVAL TP SCH (10:24)
--- NOTE | 2023-02-05 11:39 | Occupational Ther Daily Note ---
OT Current Status-Daily Note Subjective Pt received sitting in recliner and is in good spirits. Pt agreeable to therapy. Pain Numeric Pain Scale: 1 Location Body Site: Neck Pain Description: Dull Mental Status/Objective Patient Orientation: Person, Place, Time, Situation Attachments: IV, Oxygen (2L) ADL-Treatment Therapy Code Descriptions/Definitions Functional [place] Measure: 0=Not Assessed/NA 4=Minimal Assistance 1=Total Assistance 5=Supervision or Setup 2=Maximal Assistance 6=Modified [place] 3=Moderate Assistance 7=Complete IndependenceSCALE: Activities may be completed with or without assistive devices. 2-Mvpumzarha-mghtrck completes the activity by him/herself with no assistance from a helper. 5-Set-up or Clean-up Assistance-helper sets up or cleans up; patient completes activity. [place] assists only prior to or following the activity. 4-Supervision or Touching Assistance-helper provides verbal cues and/or touching/steadying and/or contact guard assistance as patient completes activity. Assistance may be provided throughout the activity or intermittently. 3-Partial/Moderate Assistance-helper does LESS THAN HALF the effort. [place] lifts, holds or supports trunk or limbs, but provides less than half the effort. 2-Substantial/Maximal Assistance-helper does MORE THAN HALF the effort. [place] lifts or holds trunk or limbs and provides more than half the effort. 4-Tlcmiqxjn-idwedo does ALL the effort. Patient does none of the effort to complete the activity. Or, the assistance of 2 or more helpers is required for the patient to complete the activity. If activity was not attempted, code reason: 7-Patient Refused. 9-Not Applicable-not attempted and the patient did not perform the activity befo re the current illness, exacerbation or injury. 10-Not Attempted due to Environmental Limitations-(lack of equipment, weather re straints, etc.). 88-Not Attempted due to Medical Conditions or Safety Concerns. Eating (QC): 6 Oral Hygiene (QC): 6 Shower/Bathe Self (QC): 6 (Pt completed all aspects of showering indepedently with no cues to adhere to precautions. ) Upper Body Dressing (QC): 6 (Pt complete donning and doffing shirt independently with no cues to adhere to precautions. Pt required assistance to don and doff C Collar, though pt reports that his will help him at home and is not concerned about being indpenedent with this task. ) Lower Body Dressing (QC): 6 (Pt completed donning and doffing of pants and boxers with independence and no cues to adhere to precautions. ) On/Off Footwear: 6 (Pt donned and doffed socks independently with no cue to adhere to precautions. ) Toileting Hygiene (QC): 6 Toilet Transfer (QC): 6 Other Treatment Pt completed functional mobility with use of FWW and mod I to increase functional endurance and independence, required increased time for ambulation. Pt completed all ADLs with independence on this date, requiring no cues to adhere to precautions. Education OT Patient Education: Correct positioning, Energy conservation, Exercise program, Progress toward Goal/Update tx plan, Purpose of tx/functional activities, Reviewed precautions, Rehab process Teaching Recipient: Patient Teaching Methods: Demonstration, Discussion Response to Teaching: Verbalize Understanding, Return Demonstration BIMS CAM CAM Mental Status Change/Baseline: 0 Inattention: 0 Disorganized thinkin Altered level of consciousness: 0 OT Longterm Goals Longterm Goals Time Frame: Feb 13, 2023 Acute change in mental status: 0 Inattention: 0 Disorganized thinkin Altered level of consciousness: 0 Eating (QC): 6 (MET) Oral Hygiene (QC): 6 (MET) Toileting Hygiene (QC): 6 (MET) Shower/Bathe Self (QC): 6 (MET) Upper Body Dressing (QC): 6 (MET) Lower Body Dressing (QC): 6 (MET) On/Off Footwear (QC): 6 (MET) Additional Goals: 1-Demonstrate ADL Tasks, 2-Verbalize Understanding, 3- ImproveStrength/Jody 1=Demonstrate adherence to instructed precautions during ADL tasks. 2=Patient will verbalize/demonstrate understanding of assistive devices/modifications for ADL. 3=Patient will improve strength/tolerance for activity to enable patient to perform ADL's. OT Education/Plan Problem List/Assessment Assessment: Decreased UE Strength, Impaired Funct Balance, Impaired I ADL's, Impaired Self-Care Skills Discharge Recommendations Plan/Recommendations: Continue POC Therapy Discharge Recommendati: Home & Family Treatment Plan/Plan of Care Treatment,Training & Education: Yes Patient would benefit from OT for education, treatment and training to promote independence in ADL's, mobility, safety and/or upper extremity function for ADL's. Plan of Care: ADL Retraining, Functional Mobility, Group Exercise/Act as Ind, UE Funct Exercise/Act Treatment Duration: Feb 13, 2023 Frequency: At least 5 of 7 days/Wk (IRF) Estimated Hrs Per Day: 1.5 hours per day Agreement: Yes Rehab Potential: Good Time Start Time: 10:00 Stop Time: 11:30 DATE: Feb 05, 2023 Total Time Billed (hr/min): 90 Billed Treatment Time 1, ADL 5, FA 1 Angel Cobian Feb 05, 2023 11:39
[2023-02-05 12:35] VITALS: BP 146/65
[2023-02-05 12:56] VITALS: BP 130/62
[2023-02-05 15:00] VITALS: BP 129/62
--- NOTE | 2023-02-05 15:38 | Occupational Ther Daily Note ---
OT Current Status-Daily Note Subjective Pt received sitting in recliner. Pt agreeable to therapy. Mental Status/Objective Patient Orientation: Person, Place, Time, Situation Attachments: IV, Oxygen (2L) ADL-Treatment Therapy Code Descriptions/Definitions Functional [place] Measure: 0=Not Assessed/NA 4=Minimal Assistance 1=Total Assistance 5=Supervision or Setup 2=Maximal Assistance 6=Modified [place] 3=Moderate Assistance 7=Complete IndependenceSCALE: Activities may be completed with or without assistive devices. 4-Yqenjtgkhj-bndcsjf completes the activity by him/herself with no assistance from a helper. 5-Set-up or Clean-up Assistance-helper sets up or cleans up; patient completes activity. [place] assists only prior to or following the activity. 4-Supervision or Touching Assistance-helper provides verbal cues and/or touching/steadying and/or contact guard assistance as patient completes activity. Assistance may be provided throughout the activity or intermittently. 3-Partial/Moderate Assistance-helper does LESS THAN HALF the effort. [place] lifts, holds or supports trunk or limbs, but provides less than half the effort. 2-Substantial/Maximal Assistance-helper does MORE THAN HALF the effort. [place] lifts or holds trunk or limbs and provides more than half the effort. 8-Oyfnbdlqy-gtacip does ALL the effort. Patient does none of the effort to complete the activity. Or, the assistance of 2 or more helpers is required for the patient to complete the activity. If activity was not attempted, code reason: 7-Patient Refused. 9-Not Applicable-not attempted and the patient did not perform the activity before the current illness, exacerbation or injury. 10-Not Attempted due to Environmental Limitations-(lack of equipment, weather restraints, etc.). 88-Not Attempted due to Medical Conditions or Safety Concerns. On/Off Footwear: 6 (Pt donned and doffed socks independently with no cues to adhere to precautions.) Toileting Hygiene (QC): 6 Other Treatment Pt completed community mobility with FWW and CGA, navigating different terrains and performing directionality with min cues. Education OT Patient Education: Correct positioning, Energy conservation, Modified ADL techniques, Progress toward Goal/Update tx plan, Purpose of tx/functional activities, Reviewed precautions, Rehab process Teaching Recipient: Patient Teaching Methods: Demonstration, Discussion Response to Teaching: Verbalize Understanding, Return Demonstration OT Usp Goals C Iron Worker Goals Time Frame: Feb 13, 2023 Acute change in mental status: 0 Inattention: 0 Disorganized thinkin Altered level of consciousness: 0 Eating (QC): 6 (MET) Oral Hygiene (QC): 6 (MET) Toileting Hygiene (QC): 6 (MET) Shower/Bathe Self (QC): 6 (MET) Upper Body Dressing (QC): 6 (MET) Lower Body Dressing (QC): 6 (MET) On/Off Footwear (QC): 6 (MET) Additional Goals: 1-Demonstrate ADL Tasks, 2-Verbalize Understanding, 3- ImproveStrength/Jody 1=Demonstrate adherence to instructed precautions during ADL tasks. 2=Patient will verbalize/demonstrate understanding of assistive devices/modifications for ADL. 3=Patient will improve strength/tolerance for activity to enable patient to perform ADL's. OT Education/Plan Problem List/Assessment Assessment: Decreased Activ Tolerance, Impaired Funct Balance, Impaired I ADL's Discharge Recommendations Plan/Recommendations: Continue POC Treatment Plan/Plan of Care Treatment,Training & Education: Yes Patient would benefit from OT for education, treatment and training to promote independence in ADL's, mobility, safety and/or upper extremity function for ADL's. Plan of Care: ADL Retraining, Functional Mobility, Group Exercise/Act as Ind, UE Funct Exercise/Act Treatment Duration: Feb 13, 2023 Frequency: At least 5 of 7 days/Wk (IRF) Estimated Hrs Per Day: 1.5 hours per day Agreement: Yes Rehab Potential: Good Time Start Time: 15:00 Stop Time: 15:30 DATE: Feb 05, 2023 Total Time Billed (hr/min): 30 Billed Treatment Time 1, FA 1, ADL 1 Angel Cobian Feb 05, 2023 15:38
[2023-02-05 17:14] VITALS: BP 144/70
[2023-02-05 19:58] VITALS: BP 144/68
[2023-02-05] MEDS: LATANOPROST 0.005% OPHTH SOLN 2.5 ML OU SCH (20:24)
[2023-02-06] MEDS ORDERED: PANT40TA2 PO (05:14)
[2023-02-06] MEDS ORDERED: CLN.2T PO (05:14)
[2023-02-06] MEDS ORDERED: CEPH500T PO (05:14)
[2023-02-06] MEDS ORDERED: FLUT9.9S NS (05:14)
[2023-02-06] MEDS ORDERED: HYDR100T27 PO (05:14)
[2023-02-06] MEDS ORDERED: FLUT1BLS3 IH (05:14)
[2023-02-06] MEDS ORDERED: AMLO10TA4 PO (05:14)
[2023-02-06] MEDS ORDERED: CRV25T PO (05:14)
[2023-02-06] MEDS ORDERED: ACHYD1T PO (05:14)
[2023-02-06] MEDS ORDERED: ATOR80TA76 PO (05:14)
[2023-02-06] MEDS ORDERED: GABA-486 PO (05:14)
[2023-02-06] MEDS ORDERED: FAMO-356 PO (05:14)
[2023-02-06] MEDS ORDERED: BUME2TAB7 PO (05:14)
[2023-02-06] MEDS ORDERED: CYCL10TA25 PO (05:14)
[2023-02-06] MEDS ORDERED: NIFE90TA57 PO (05:14)
[2023-02-06] MEDS ORDERED: MONT-40 PO (05:14)
[2023-02-06] MEDS ORDERED: POTA-330 PO (05:14)
--- NOTE | 2023-02-06 05:15 | Discharge Summary ---
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 Hypertension [id number] Diastolic congestive heart failure Smoker Previous acute respiratory failure Previous acute kidney injury Immune mediated glomerulonephritis Anemia- iron low and required 1 unit of blood day before DC and getting outpatient consultation from hematology Plan: Supportive care IV antibiotics Aggressive rehab Monitor blood pressure 02/02/2023: Await iron and B12 Continue aggressive rehab 02/03/2023: Supportive care Monitor closely 02/04/2023: Supportive care B12 supplement Iron supplement 02/05/2023: Monitor closely (1) Myopathy Discharge Summary Discharge Physical Examination Allergies: Coded Allergies: hydromorphone (Verified Adverse Reaction, Severe, CONFUSION, 11/23/19) Vitals & I&Os Vital Signs Date Time Temp Pulse Resp B/P (MAP) Pulse Ox O2 Delivery O2 Flow Rate FiO2 02/06/23 12:11 36.7 85 18 147/66 99 Nasal Cannula 2.00 General Appearance: Alert, Oriented X3, Cooperative Respiratory: Clear to Auscultation Cardiovascular: Regular Rate Psych/Mental Status: Mental Status NL Hospital Course Was the Problem List Reviewed?: Yes Hospital course: patient had an uneventful course after he was admitted following cervical spine surgery and osteomyelitis maintained on Rocephin and ID recommended abx. PICC line was maintained. Anemia required 1 unit of blood along with iron supplement and he will have a consultation with hematology as an outpatient. Pain meds sent in along with other BP meds and he was DC in improved condition. Labs (last 24 hrs) Laboratory Tests 02/02/23 05:24: White Blood Count 7.9, Red Blood Count 2.38L, Hemoglobin 7.0L, Hematocrit 22L, Mean Corpuscular Volume 93, Mean Corpuscular Hemoglobin 29, Mean Corpuscular Hemoglobin Concent 32, Red Cell Distribution Width 15.5H, Platelet Count 236, Mean Platelet Volume 9.8, Immature Granulocyte % (Auto) 1, Neutrophils (%) (Auto) 64, Lymphocytes (%) (Auto) 26, Monocytes (%) (Auto) 8, Eosinophils (%) (Auto) 2, Basophils (%) (Auto) 0, Neutrophils # (Auto) 5.1, Lymphocytes # (Auto) 2.1, Monocytes # (Auto) 0.7, Eosinophils # (Auto) 0.1, Basophils # (Auto) 0.0, Immature Granulocyte # (Auto) 0.0, Sodium Level 140, Potassium Level 4.7, C hloride Level 104, Carbon Dioxide Level 30, Anion Gap 6, Blood Urea Nitrogen 50H , Creatinine 1.02, Estimat Glomerular Filtration Rate 83, BUN/Creatinine Ratio 49, Glucose Level 99, Calcium Level 7.7L, Corrected Calcium 9.1, Iron Level 32L, Total Bilirubin 0.2, Aspartate Amino Transf (AST/SGOT) 24, Alanine Aminotransferase (ALT/SGPT) 31, Alkaline Phosphatase 88, Total Protein 5.2L, Albumin 2.2L, Vitamin B12 Level 522 02/05/23 09:24: White Blood Count 6.8, Red Blood Count 2.19L, Hemoglobin 6.5*L, Hematocrit 21L, Mean Corpuscular Volume 95, Mean Corpuscular Hemoglobin 30, Mean Corpuscular Hemoglobin Concent 31L, Red Cell Distribution Width 15.6H, Platelet Count 238, Mean Platelet Volume 9.2, Immature Granulocyte % (Auto) 0, Neutrophils (%) (Auto) 60, Lymphocytes (%) (Auto) 28, Monocytes (%) (Auto) 10, Eosinophils (%) (Auto) 2, Basophils (%) (Auto) 0, Neutrophils # (Auto) 4.1, Lymphocytes # (Auto) 1.9, Monocytes # (Auto) 0.7, Eosinophils # (Auto) 0.2, Basophils # (Auto) 0.0, Immature Granulocyte # (Auto) 0.0, Sodium Level 136, Potassium Level 5.1H, Chloride Level 101, Carbon Dioxide Level 27, Anion Gap 8, Blood Urea Nitrogen 29H, Creatinine 1.10, Estimat Glomerular Filtration Rate 76, BUN/Creatinine Ratio 26, Glucose Level 91, Calcium Level 8.2L, Corrected Calcium 9.6, Total Bilirubin 0.2, Aspartate Amino Transf (AST/SGOT) 37H, Alanine Aminotransferase (ALT/SGPT) 28, Alkaline Phosphatase 102, Total Protein 5.6L, Albumin 2.3L, Neutrophils % (Manual) 59, Lymphocytes % (Manual) 29, Monocytes % (Manual) 10, Eosinophils % (Manual) 0, Basophils % (Manual) 1, Band Neutrophils 1, Anisocytosis SLIGHT 9/22/23 05:30: Hemoglobin 6.9*L, Hematocrit 21L Pending Labs Laboratory Tests 02/02/23 05:24: White Blood Count 7.9, Red Blood Count 2.38, Hemoglobin 7.0, Hematocrit 22, Mean Corpuscular Volume 93, Mean Corpuscular Hemoglobin 29, Mean Corpuscular Hemoglobin Concent 32, Red Cell Distribution Width 15.5, Platelet Count 236, Mean Platelet Volume 9.8, Immature Granulocyte % (Auto) 1, Neutrophils (%) (Auto) 64, Lymphocytes (%) (Auto) 26, Monocytes (%) (Auto) 8, Eosinophils (%) (Auto) 2, Basophils (%) (Auto) 0, Neutrophils # (Auto) 5.1, Lymphocytes # (Auto) 2.1, Monocytes # (Auto) 0.7, Eosinophils # (Auto) 0.1, Basophils # (Auto) 0.0, Immature Granulocyte # (Auto) 0.0, Sodium Level 140, Potassium Level 4.7, Chloride Level 104, Carbon Dioxide Level 30, Anion Gap 6, Blood Urea Nitrogen 50, Creatinine 1.02, Estimat Glomerular Filtration Rate 83, BUN/Creatinine Ratio 49, Glucose Level 99, Calcium Level 7.7, Corrected Calcium 9.1, Iron Level 32, Total Bilirubin 0.2, Aspartate Amino Transf (AST/SGOT) 24, Alanine Aminotransferase (ALT/SGPT) 31, Alkaline Phosphatase 88, Total Protein 5.2, Albumin 2.2, Vitamin B12 Level 522 02/05/23 09:24: White Blood Count 6.8, Red Blood Count 2.19, Hemoglobin 6.5, Hematocrit 21, Mean Corpuscular Volume 95, Mean Corpuscular Hemoglobin 30, Mean Corpuscular Hemoglobin Concent 31, Red Cell Distribution Width 15.6, Platelet Count 238, Mean Platelet Volume 9.2, Immature Granulocyte % (Auto) 0, Neutrophils (%) (Auto) 60, Lymphocytes (%) (Auto) 28, Monocytes (%) (Auto) 10, Eosinophils (%) (Auto) 2, Basophils (%) (Auto) 0, Neutrophils # (Auto) 4.1, Lymphocytes # (Auto) 1.9, Monocytes # (Auto) 0.7, Eosinophils # (Auto) 0.2, Basophils # (Auto) 0.0, Immature Granulocyte # (Auto) 0.0, Sodium Level 136, Potassium Level 5.1, Chloride Level 101, Carbon Dioxide Level 27, Anion Gap 8, Blood Urea Nitrogen 29, Creatinine 1.10, Estimat Glomerular Filtration Rate 76, BUN/Creatinine Ratio 26, Glucose Level 91, Calcium Level 8.2, Corrected Calcium 9.6, Total Bilirubin 0.2, Aspartate Amino Transf (AST/SGOT) 37, Alanine Aminotransferase (ALT/SGPT) 28, Alkaline Phosphatase 102, Total Protein 5.6, Albumin 2.3, Neutrophils % (Manual) 59, Lymphocytes % (Manual) 29, Monocytes % (Manual) 10, Eosinophils % (Manual) 0, Basophils % (Manual) 1, Band Neutrophils 1, Anisocytosis SLIGHT 02/06/23 05:30: Hemoglobin 6.9, Hematocrit 21 Discharge Home Medications: Active Scripts Active HYDROcodone/APAP 10/325 TABLET (Acetaminophen/Hydrocodone Bitart) 1 Ea Tab 1 Ea PO TID PRN Cephalexin 500 Mg Tablet 500 Mg PO BID START TAKING ON FEBRUARY 21, 2023- (AFTER COMPLETING IV ROCEPHIN). Trelegy Ellipta 100-62.5-25 (Fluticasone/Umeclidin/Vilanter) 100-62.5 Blst.w.dev 1 Puff IH DAILY Flonase Allergy Relief (Fluticasone Propionate) 50 Mcg/Actuation [place].susp 1 [place] NS PRN PRN 1 SPRAY EACH NARE DAILY Acid Linoleum Mechanic (FAMOTIDINE) (Famotidine) 20 Mg Tablet 20 Mg PO BIDAC Gabapentin 100 Mg Capsule 100 Mg PO TID Potassium Chloride 20 Meq Tablet.er 20 Meq PO DAILY Protonix (Pantoprazole Sodium) 40 Mg Tablet.dr 40 Mg PO DAILY Nifedipine ER (Nifedipine) 90 Mg Tab.er.24 90 Mg PO DAILY Hydralazine HCl 100 Mg Tablet 100 Mg PO TID Clonidine HCl 0.2 Mg Tablet 0.2 Mg PO BID Coreg (Carvedilol) 25 Mg Tab 25 Mg PO BID WITH MEALS Bumetanide 2 Mg Tablet 2 Mg PO DAILY Montelukast Sodium 10 Mg Tablet 10 Mg PO DAILY Cyclobenzaprine HCl 10 Mg Tablet 10 Mg PO TID PRN Norvasc (Amlodipine Besylate) 10 Mg Tablet 10 Mg PO DAILY Atorvastatin Calcium 80 Mg Tablet 80 Mg PO DAILY Ceftriaxone (Ceftriaxone Sodium) 2 Gram Soln 2 Gm IV DAILY 13 Days Reported Nicotine Lozenge (Nicotine Polacrilex) 4 Mg Lozenge 4 Mg BC Q2H PRN Ventolin Hfa (Albuterol Sulfate) 90 Mcg Hfa.aer.ad 2 Puff IH Q4H PRN 1 PUFF = 90 MCG Albuterol Sulfate 2.5 Mg/3 Ml (0.083 %) Vial.neb 2.5 Mg INH Q6H PRN Xalatan (Latanoprost) 0.005 % Drops 1 Drop OU HS Folic Acid 1 Mg Tablet 1 Mg PO DAILY Vitamin D2 (Ergocalciferol (Vitamin D2)) 1,250 Mcg (31984 Unit) Capsule 1,250 Mc g PO Q7DAYS Desitin 40% Paste (Zinc Oxide/Cod Liver Oil) 40 % Paste..g. 1 Appful TP BID Sennosides-Docusate Sodium Tab (Sennosides/Docusate Sodium) 8.6 Mg-50 Mg Tablet 2 Each PO BID Saccharomyces Boulardii 250 Mg Capsule 250 Mg PO BID Tylenol (Acetaminophen) 325 Mg Tablet 650 Mg PO Q6H Instructions to patient/family Please see electronic discharge instructions given to patient. Diagnosis/Problems Diagnosis/Problems (1) Myopathy HARMEET GUERIN DO Feb 06, 2023 05:15
[2023-02-06 05:40] LABS: HEMOGLOBIN 6.9 g/dL (13.3-17.7)
[2023-02-06] MEDS: POTASSIUM CHLORIDE 20 MEQ TABLET PO SCH (06:36)
[2023-02-06] MEDS: hydrALAZINE 25 MG TABLET PO SCH (06:36)
[2023-02-06] MEDS: CATHETER FLUSH 10 ML SYR IVP SCH (06:36)
[2023-02-06] MEDS: FAMOTIDINE 20 MG TABLET PO SCH (06:36)
[2023-02-06 07:09] VITALS: BP 147/66
[2023-02-06] MEDS: DOCUSATE SODIUM 100 MG CAPSULE PO SCH (08:39)
[2023-02-06] MEDS: SENNA W/DOCUSATE TABLET PO SCH (08:39)
[2023-02-06] MEDS: GABAPENTIN 100 MG CAPSULE PO SCH (08:51)
[2023-02-06] MEDS: FOLIC ACID 1 MG TAB PO SCH (08:51)
[2023-02-06] MEDS: ZINC OXIDE 40% (Butt Paste MAX/Desitin) 57 gm TOP SCH (08:51)
[2023-02-06] MEDS: BUMETANIDE 1 MG TABLET PO SCH (08:51)
[2023-02-06] MEDS: ENOXAPARIN 40 MG/0.4 ML SYRINGE SC SCH (08:51)
[2023-02-06] MEDS: MONTELUKAST 10 MG TABLET PO SCH (08:51)
[2023-02-06] MEDS: LACTOBACILLUS ACIDOPHILUS (PROBIOTIC) CAPSULE PO SCH (08:51)
[2023-02-06] MEDS: PANTOPRAZOLE 40 MG TABLET PO SCH (08:51)
[2023-02-06] MEDS: carvediloL 12.5 MG TABLET PO SCH (08:51)
[2023-02-06] MEDS: NICOTINE PATCH REMOVAL TP SCH (08:52)
[2023-02-06] MEDS: amLODIPine 10 MG TABLET PO SCH (08:52)
[2023-02-06] MEDS: NIFEdipine Extended Release 30 MG TABLET PO SCH (08:52)
[2023-02-06] MEDS: NICOTINE 21 MG PATCH TD SCH (08:52)
[2023-02-06] MEDS: cefTRIAXone 2,000 MG/NS 50 ML IVPB IV SCH ×2 (08:53)
[2023-02-06] MEDS: FLUTICASONE NASAL SPRAY (120 SPRAYS) NS PRN (08:58)
[2023-02-06] MEDS: TIOTROPIUM INH 4 GM (SPIRIVA Respimat) IH SCH (11:07)
[2023-02-06] MEDS: FLUTICASONE/VILANTEROL 100/25 MCG (7 DOSES) IH SCH (11:07)
[2023-02-06 12:11] VITALS: BP 147/66
--- NOTE | 2023-02-06 15:15 | Therapy Team Discharge Summary ---
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 S/P hardware removal, C2-T3 screw placement, C7-T1 arlet osteotomy, and paraspinal and trapezius flaps on 01/06/23. Admitted to [facility] on 02/01/23. At [facility], pt was Ind with no AD and driving. Upon PT eval, pt was SBA for functional mobility with the FWW. PT focused on strength, endurance, walking, balance/safety, functional mobility, and overall Ind. Pt progressed well with PT and met all set goals, being Mod I with the FWW. Pt was d/c from ARU on 02/06/23 to home with spouse; Pt refused HHC; D/C from PT at this time. Roll Left to Right (QC): 6 Sit to Lying (QC): 6 Lying to Sitting/Side of Bed(Q: 6 Sit to Stand (QC): 6 Chair/Ley-lz-Ydlhr Xfer(QC): 6 Toilet Transfer (QC): 6 Car Transfer (QC): 6 Does the Patient Walk: Yes Mode of Locomotion: Walk Anticipated Mode of Locomotion: Walk Walk 10 feet (QC): 6 Walk 50 ft with 2 Turns(QC): 6 Walk 150 ft (QC): 6 Walking 10ft on uneven surface: 6 Gait Assistive Device: FWW Does the Pt Use a Wheelchair: No Wheel 50 ft with 2 turns (QC): 9 Wheel 150 ft (QC): 9 Type of Wheelchair: N/A #of Steps: 12 1 Step (curb) (QC): 6 4 Steps (QC): 6 12 Steps (QC): 6 Walking Assistive Device: Walker Balance Sitting Static: Normal Balance Sitting Dynamic: Good Balance-Standing Static: Good Picking up an Object (QC): 6 Occupational Therapy Decreased Activ Tolerance, Impaired Funct Balance, Impaired I ADL's Eating (QC): 6 Oral Hygiene (QC): 6 Shower/Bathe Self (QC): 6 (Pt completed all aspects of showering indepedently with no cues to adhere to precautions. ) Upper Body Dressing (QC): 6 (Pt complete donning and doffing shirt independently with no cues to adhere to precautions. Pt required assistance to don and doff C Collar, though pt reports that his will help him at home and is not concerned about being indpenedent with this task. ) Lower Body Dressing (QC): 6 (Pt completed donning and doffing of pants and boxers with independence and no cues to adhere to precautions. ) On/Off Footwear (QC): 6 (Pt donned and doffed socks independently with no cues to adhere to precautions.) Toileting Hygiene (QC): 6 PT Halfway Goals Halfway Goals PT Halfway Goals Time Frame: Feb 16, 2023 Roll Left to Right (QC): 6 (Pt will be Mod I with all aspects of functional mobility, in order to safely return home with spouse. ) Sit to Lying (QC): 6 (Pt will be Mod I with all aspects of functional mobility, in order to safely return home with spouse. ) Lying-Sitting on Side/Bed(QC): 6 (Pt will be Mod I with all aspects of functional mobility, in order to safely return home with spouse. ) Sit to Stand (QC): 6 (Pt will be Mod I with all aspects of functional mobility, in order to safely return home with spouse. ) Chair/Eek-ri-Wcidc Xfer(QC): 6 (Pt will be Mod I with all aspects of functional mobility, in order to safely return home with spouse. ) Toilet/Commode Transfer (QC): 6 (Pt will be Mod I with all aspects of functional mobility, in order to safely return home with spouse. ) Car Transfer (QC): 6 (Pt will be Mod I with all aspects of functional mobility, in order to safely return home with spouse. ) Does the Patient Walk: Yes Walk 10 feet (QC): 6 (Pt will be Mod I with all aspects of functional mobility, in order to safely return home with spouse. ) Walk 10ft-Uneven Surface(QC): 6 (Pt will be Mod I with all aspects of functional mobility, in order to safely return home with spouse. ) Walk 50ft with 2 Turns (QC): 6 (Pt will be Mod I with all aspects of functional mobility, in order to safely return home with spouse. ) Walk 150 ft (QC): 6 (Pt will be Mod I with all aspects of functional mobility, in order to safely return home with spouse. ) Does the Pt use WC or Scooter?: No Wheel 50 feet with 2 turns (QC: 9 Type: N/A Wheel 150 feet: 9 Type: N/A 1 Step (curb) (QC): 6 (Pt will be Mod I with all aspects of functional mobility, in order to safely return home with spouse. ) 4 Steps (QC): 6 (Pt will be Mod I with all aspects of functional mobility, in order to safely return home with spouse. ) 12 Steps (QC): 6 (Pt will be Mod I with all aspects of functional mobility, in order to safely return home with spouse. ) Picking up an Object (QC): 6 (Pt will be Mod I with all aspects of functional mobility, in order to safely return home with spouse. ) OT Paintless Dent Repair Technician Goals Paintless Dent Repair Technician Goals Time Frame: Feb 13, 2023 Acute change in mental status: 0 Inattention: 0 Disorganized thinkin Altered level of consciousness: 0 Eating (QC): 6 (MET) Oral Hygiene (QC): 6 (MET) Toileting Hygiene (QC): 6 (MET) Shower/Bathe Self (QC): 6 (MET) Upper Body Dressing (QC): 6 (MET) Lower Body Dressing (QC): 6 (MET) On/Off Footwear (QC): 6 (MET) Additional Goals: 1-Demonstrate ADL Tasks, 2-Verbalize Understanding, 3- ImproveStrength/Jody 1=Demonstrate adherence to instructed precautions during ADL tasks. 2=Patient will verbalize/demonstrate understanding of assistive devices/modifications for ADL. 3=Patient will improve strength/tolerance for activity to enable patient to perform ADL's. Speech Paintless Dent Repair Technician Goals Halfway Goals n/a HODAN VALENZUELA PT Feb 06, 2023 15:15
--- NOTE | 2023-02-09 10:32 | Therapy Team Discharge Summary ---
Therapy Discharge Summary Discharge Recommendations Date of Discharge Feb 06, 2023 at 12:15 Therapy D/C Recommendations: Home w/ Family Support Physical Therapy Roll Left to Right (QC): 6 Sit to Lying (QC): 6 Lying to Sitting/Side of Bed(Q: 6 Sit to Stand (QC): 6 Chair/Uoy-tc-Aukyi Xfer(QC): 6 Toilet Transfer (QC): 6 Car Transfer (QC): 6 Does the Patient Walk: Yes Mode of Locomotion: Walk Anticipated Mode of Locomotion: Walk Walk 10 feet (QC): 6 Walk 50 ft with 2 Turns(QC): 6 Walk 150 ft (QC): 6 Walking 10ft on uneven surface: 6 Gait Assistive Device: FWW Does the Pt Use a Wheelchair: No Wheel 50 ft with 2 turns (QC): 9 Wheel 150 ft (QC): 9 Type of Wheelchair: N/A #of Steps: 12 1 Step (curb) (QC): 6 4 Steps (QC): 6 12 Steps (QC): 6 Walking Assistive Device: Walker Balance Sitting Static: Normal Balance Sitting Dynamic: Good Balance-Standing Static: Good Picking up an Object (QC): 6 Occupational Therapy Pt admitted to ARU with critical illness myopathy. At [facility], pt was independent with ADLS and functional mobility, no AD. Upon initial evaluation, pt required set up assist with eating and oral care, partial/mod A with Showering and UE dressing, and CGA-SUP with LE dressing, footwear and toileting. OT tx focused on increasing BUE strength and activity tolerance, and increasing safety and independence with ADLS and functional mobility. Pt made good progress towards goals, reaching IND level with most ADLS. Pt still requires assistance with donning/doffing C collar, but his is able to complete at home. Pt discharged home with spouse, d/c from OT. Decreased Activ Tolerance, Impaired Funct Balance, Impaired I ADL's Eating (QC): 6 Oral Hygiene (QC): 6 Shower/Bathe Self (QC): 6 (Pt completed all aspects of showering indepedently with no cues to adhere to precautions. ) Upper Body Dressing (QC): 6 (Pt complete donning and doffing shirt independently with no cues to adhere to precautions. Pt required assistance to don and doff C Collar, though pt reports that his will help him at home and is not concerned about being indpenedent with this task. ) Lower Body Dressing (QC): 6 (Pt completed donning and doffing of pants and boxers with independence and no cues to adhere to precautions. ) On/Off Footwear (QC): 6 (Pt donned and doffed socks independently with no cues to adhere to precautions.) Toileting Hygiene (QC): 6 PT Correction Goals Dietetic Assistant Goals PT Correction Goals Time Frame: Feb 16, 2023 Roll Left to Right (QC): 6 (Pt will be Mod I with all aspects of functional mobility, in order to safely return home with spouse. ) Sit to Lying (QC): 6 (Pt will be Mod I with all aspects of functional mobility, in order to safely return home with spouse. ) Lying-Sitting on Side/Bed(QC): 6 (Pt will be Mod I with all aspects of functional mobility, in order to safely return home with spouse. ) Sit to Stand (QC): 6 (Pt will be Mod I with all aspects of functional mobility, in order to safely return home with spouse. ) Chair/Isr-ia-Djusc Xfer(QC): 6 (Pt will be Mod I with all aspects of functional mobility, in order to safely return home with spouse. ) Toilet/Commode Transfer (QC): 6 (Pt will be Mod I with all aspects of functional mobility, in order to safely return home with spouse. ) Car Transfer (QC): 6 (Pt will be Mod I with all aspects of functional mobility, in order to safely return home with spouse. ) Does the Patient Walk: Yes Walk 10 feet (QC): 6 (Pt will be Mod I with all aspects of functional mobility, in order to safely return home with spouse. ) Walk 10ft-Uneven Surface(QC): 6 (Pt will be Mod I with all aspects of functional mobility, in order to safely return home with spouse. ) Walk 50ft with 2 Turns (QC): 6 (Pt will be Mod I with all aspects of functional mobility, in order to safely return home with spouse. ) Walk 150 ft (QC): 6 (Pt will be Mod I with all aspects of functional mobility, in order to safely return home with spouse. ) Does the Pt use WC or Scooter?: No Wheel 50 feet with 2 turns (QC: 9 Type: N/A Wheel 150 feet: 9 Type: N/A 1 Step (curb) (QC): 6 (Pt will be Mod I with all aspects of functional mobility, in order to safely return home with spouse. ) 4 Steps (QC): 6 (Pt will be Mod I with all aspects of functional mobility, in order to safely return home with spouse. ) 12 Steps (QC): 6 (Pt will be Mod I with all aspects of functional mobility, in order to safely return home with spouse. ) Picking up an Object (QC): 6 (Pt will be Mod I with all aspects of functional mobility, in order to safely return home with spouse. ) OT Correction Goals Correction Goals Time Frame: Feb 13, 2023 Acute change in mental status: 0 Inattention: 0 Disorganized thinkin Altered level of consciousness: 0 Eating (QC): 6 (MET) Oral Hygiene (QC): 6 (MET) Toileting Hygiene (QC): 6 (MET) Shower/Bathe Self (QC): 6 (MET) Upper Body Dressing (QC): 6 (MET) Lower Body Dressing (QC): 6 (MET) On/Off Footwear (QC): 6 (MET) Additional Goals: 1-Demonstrate ADL Tasks, 2-Verbalize Understanding, 3-Impr oveStrength/Jody 1=Demonstrate adherence to instructed precautions during ADL tasks. 2=Patient will verbalize/demonstrate understanding of assistive devices/modifications for ADL. 3=Patient will improve strength/tolerance for activity to enable patient to perform ADL's. Speech Correction Goals Dietetic Assistant Goals n/a JOHNSON PANG OT Feb 09, 2023 10:32
[2023-02-21] MEDS ORDERED: CEPHALEXIN 250 MG CAPSULE PO SCH (09:00)
== END 2023-02-06 12:15 | disposition home or self-care (01) | DRG 92 ==
PROVIDERS: ADMIT Internal Medicine; ATTEND Internal Medicine
DX: G72.81 Critical illness myopathy (principal); I42.9 Cardiomyopathy, unspecified; I50.32 Chronic diastolic (congestive) heart failure; R78.81 Bacteremia; I11.0 Hypertensive heart disease with heart failure; J44.9 Chronic obstructive pulmonary disease, unspecified; F17.210 Nicotine dependence, cigarettes, uncomplicated; I25.10 Atherosclerotic heart disease of native coronary artery without angina pectoris; E78.00 Pure hypercholesterolemia, unspecified; G62.9 Polyneuropathy, unspecified; K21.9 Gastro-esophageal reflux disease without esophagitis; M19.90 Unspecified osteoarthritis, unspecified site; M79.7 Fibromyalgia; D50.9 Iron deficiency anemia, unspecified; N05.8 Unspecified nephritic syndrome with other morphologic changes; D51.9 Vitamin B12 deficiency anemia, unspecified; B95.61 Methicillin susceptible Staphylococcus aureus infection as the cause of diseases classified elsewhere; H54.7 Unspecified visual loss; Z99.81 Dependence on supplemental oxygen; Z88.5 Allergy status to narcotic agent; Z79.899 Other long term (current) drug therapy
CPT/HCPCS: 36415; 71045; 80053; 82607; 83540; 85007; 85014; 85018; 85025; 85027; 86850; 86900; 86901; 86920; 94640; 94760; 94761

== ENCOUNTER 2023-02-13 10:18 | Outpatient (RCR) | payer MEDICAID ==
[2023-02-07 10:18] VITALS: BP 153/78
[2023-02-07 10:43] VITALS: BP 153/78
[2023-02-07] MEDS: cefTRIAXone 2,000 MG/NS 50 ML IVPB IV SCH ×2 (10:52)
[2023-02-08 10:29] VITALS: BP 174/86
[2023-02-08] MEDS: cefTRIAXone 2,000 MG/NS 50 ML IVPB IV SCH ×2 (10:34)
[2023-02-09 10:00] VITALS: BP 184/95
[2023-02-09] MEDS: cefTRIAXone 2,000 MG/NS 50 ML IVPB IV SCH ×2 (10:22)
[2023-02-10 10:30] VITALS: BP 118/55
[2023-02-10] MEDS: cefTRIAXone 2,000 MG/NS 50 ML IVPB IV SCH ×2 (10:39)
[2023-02-11] MEDS: cefTRIAXone 2,000 MG/NS 50 ML IVPB IV SCH ×2 (10:17)
[2023-02-11 10:25] VITALS: BP 127/61
[2023-02-12] MEDS: cefTRIAXone 2,000 MG/NS 50 ML IVPB IV SCH ×2 (10:16)
[2023-02-12 10:27] VITALS: BP 127/72
[~2023-02-13] VITALS: Ht 180 cm; Wt 109.1 kg
[~2023-02-13 10:18] MED LIST changes: +ACET325T38 PO; +ALBU2.5V4 INH; -ALPRAZolam 0.25 MG TABLET PO PRN; -BISACODYL 10 MG SUPPOSITORY PR PRN; +BUME2TAB7 PO; -CALCIUM CARBONATE 500 MG CHEW TABLET PO PRN; +CEFT2VIA12 IV; +CEPH500T PO; +CLN.2T PO; +CRV25T PO; +DIAZ-508 PO; -DOCUSATE SODIUM 100 MG CAPSULE PO PRN; +ERGO1250 PO; +FAMO-356 PO; +FLUT1BLS3 IH; +FLUT9.9S NS; +FOLI1TAB33 PO; +GABA-486 PO; +HYDR100T27 PO; -LACTULOSE SYRUP 10GM/15ML 30ML UDC PO PRN; +LATA2.5D19 OU; -LOPERAMIDE 2 MG CAPSULE PO PRN; -MELATONIN 3 MG TABLET PO PRN; +MINO100C5 PO; +NICO-449 BC; +NIFE90TA57 PO; -ONDANSETRON 4 MG ORAL DISSOLVE TABLET PO PRN; +OXC5T PO; +PANT40TA2 PO; +POTA-330 PO; +SACC250C12 PO; +SENN1TAB33 PO; -Sodium Phosphate/Sodium Biphosphate ADULT enema PR PRN; +[UNRECOGNIZED DRUG - CODE] TP; -diphenhydrAMINE 25 MG TABLET PO PRN; -guaiFENesin/CODEINE 10ML UDC PO PRN
[2023-02-13 10:25] VITALS: BP 136/73
[2023-02-13] MEDS: cefTRIAXone 2,000 MG/NS 50 ML IVPB IV SCH ×2 (10:25)
[2023-02-14 10:11] VITALS: BP 135/68
[2023-02-14] MEDS: cefTRIAXone 2,000 MG/NS 50 ML IVPB IV SCH ×2 (10:16)
== END 2023-02-14 | disposition home or self-care (01) ==
LOC: 4THo 10:18
PROVIDERS: ATTEND Internal Medicine
DX: M46.20 Osteomyelitis of vertebra, site unspecified (principal)
CPT/HCPCS: 96365; 99211

== ENCOUNTER 2023-02-19 10:20 | Outpatient (RCR) | payer MEDICAID ==
[2023-02-15] MEDS: cefTRIAXone 2,000 MG/NS 50 ML IVPB IV SCH ×2 (10:54)
[2023-02-15 11:01] VITALS: BP 132/72
[2023-02-16 11:00] VITALS: BP 118/63
[2023-02-16] MEDS: cefTRIAXone 2,000 MG/NS 50 ML IVPB IV SCH ×2 (11:07)
[2023-02-17] MEDS: cefTRIAXone 2,000 MG/NS 50 ML IVPB IV SCH ×2 (10:22)
[2023-02-17 10:25] VITALS: BP 127/72
[2023-02-18] MEDS: cefTRIAXone 2,000 MG/NS 50 ML IVPB IV SCH ×2 (10:24)
[2023-02-18 10:26] VITALS: BP 134/69
[~2023-02-19] VITALS: Ht 180 cm; Wt 109.0 kg
[2023-02-19 10:25] VITALS: BP 132/65
[2023-02-19] MEDS: cefTRIAXone 2,000 MG/NS 50 ML IVPB IV SCH ×2 (10:33)
== END 2023-02-19 11:20 | disposition home or self-care (01) ==
LOC: 4THo 10:20
PROVIDERS: ATTEND Internal Medicine
DX: Z01.89 Encounter for other specified special examinations (principal)
CPT/HCPCS: 96365

== ENCOUNTER 2023-02-27 09:51 | Outpatient (RCR) | payer MEDICAID ==
[2023-02-16 12:24] VITALS: BP 132/70
[2023-02-16 12:50] LABS: BASOPHILS % (AUTO) 1 % (0-10); EOSINOPHILS # (AUTO) 0.2 10^3/uL (0.0-0.3); EOSINOPHILS % (AUTO) 3 % (0-10); HEMATOCRIT 23 % (40-54); HEMOGLOBIN 7.3 g/dL (13.3-17.7); LYMPHOCYTES # (AUTO) 2.3 10^3/uL (1.0-4.0); LYMPHOCYTES % (AUTO) 43 % (12-44); MEAN CORPUSCULAR HEMOGLOBIN 30 pg (25-34); MEAN CORPUSCULAR HGB CONC 32 g/dL (32-36); MEAN CORPUSCULAR VOLUME 93 fL (80-99); MEAN PLATELET VOLUME 8.6 fL (9.0-12.2); MONOCYTES # (AUTO) 0.5 10^3/uL (0.0-1.0); MONOCYTES % (AUTO) 10 % (0-12); NEUTROPHILS # (AUTO) 2.3 10^3/uL (1.8-7.8); NEUTROPHILS % (AUTO) 43 % (42-75); PLATELET COUNT 299 10^3/uL (130-400); WHITE BLOOD COUNT 5.4 10^3/uL (4.3-11.0)
[2023-02-16 13:23] VITALS: BP 132/70
[2023-02-16 13:46] VITALS: BP 128/70
[2023-02-16 15:32] VITALS: BP 132/73
[~2023-02-27 09:51] MED LIST changes: +NS IV 500 ML 500 ML IV SCH; +NS IV 500 ML 500 ML ONE
[2023-02-27 10:13] LABS: BASOPHILS # (AUTO) 0.1 10^3/uL (0.0-0.1); BASOPHILS % (AUTO) 1 % (0-10); EOSINOPHILS # (AUTO) 0.1 10^3/uL (0.0-0.3); EOSINOPHILS % (AUTO) 1 % (0-10); HEMATOCRIT 29 % (40-54); HEMOGLOBIN 9.4 g/dL (13.3-17.7); LYMPHOCYTES # (AUTO) 2.9 10^3/uL (1.0-4.0); LYMPHOCYTES % (AUTO) 35 % (12-44); MEAN CORPUSCULAR HEMOGLOBIN 29 pg (25-34); MEAN CORPUSCULAR HGB CONC 32 g/dL (32-36); MEAN CORPUSCULAR VOLUME 90 fL (80-99); MEAN PLATELET VOLUME 8.3 fL (9.0-12.2); MONOCYTES # (AUTO) 0.6 10^3/uL (0.0-1.0); MONOCYTES % (AUTO) 8 % (0-12); NEUTROPHILS # (AUTO) 4.6 10^3/uL (1.8-7.8); NEUTROPHILS % (AUTO) 55 % (42-75); PLATELET COUNT 360 10^3/uL (130-400); WHITE BLOOD COUNT 8.3 10^3/uL (4.3-11.0)
[2023-02-27 10:26] LABS: ALBUMIN 2.7 GM/DL (3.2-4.5); POTASSIUM 4.3 MMOL/L (3.6-5.0)
[2023-02-27 10:28] LABS: CALCIUM 8.8 MG/DL (8.5-10.1)
[2023-02-27 10:29] LABS: TOTAL PROTEIN 6.7 GM/DL (6.4-8.2)
[2023-02-27 10:30] LABS: BILIRUBIN,TOTAL 0.2 MG/DL (0.1-1.0)
[2023-02-27 10:32] LABS: CREATININE SERUM 0.97 MG/DL (0.60-1.30)
== END 2023-03-17 | disposition home or self-care (01) ==
LOC: ONC 09:51
PROVIDERS: ATTEND Internal Medicine Hematology & Oncology
DX: D50.9 Iron deficiency anemia, unspecified (principal); M86.9 Osteomyelitis, unspecified; J44.9 Chronic obstructive pulmonary disease, unspecified
CPT/HCPCS: 36430; 80053; 82728; 83540; 83550; 85025; 86850; 86900; 86901; 86920; 99214

== ENCOUNTER 2023-03-30 13:19 | Outpatient (RCR) | payer MEDICAID ==
[2023-02-16 15:32] VITALS: BP 132/73
[~2023-03-30 13:19] MED LIST changes: -NS IV 500 ML 500 ML IV SCH; -NS IV 500 ML 500 ML ONE
[2023-03-30 13:36] LABS: BASOPHILS # (AUTO) 0.1 10^3/uL (0.0-0.1); BASOPHILS % (AUTO) 1 % (0-10); EOSINOPHILS # (AUTO) 0.2 10^3/uL (0.0-0.3); EOSINOPHILS % (AUTO) 2 % (0-10); HEMATOCRIT 34 % (40-54); HEMOGLOBIN 11.2 g/dL (13.3-17.7); LYMPHOCYTES # (AUTO) 2.9 10^3/uL (1.0-4.0); LYMPHOCYTES % (AUTO) 37 % (12-44); MEAN CORPUSCULAR HEMOGLOBIN 29 pg (25-34); MEAN CORPUSCULAR HGB CONC 33 g/dL (32-36); MEAN CORPUSCULAR VOLUME 88 fL (80-99); MEAN PLATELET VOLUME 8.1 fL (9.0-12.2); MONOCYTES # (AUTO) 0.6 10^3/uL (0.0-1.0); MONOCYTES % (AUTO) 7 % (0-12); NEUTROPHILS % (AUTO) 52 % (42-75); PLATELET COUNT 295 10^3/uL (130-400); WHITE BLOOD COUNT 7.7 10^3/uL (4.3-11.0)
[2023-03-30 13:58] LABS: ALBUMIN 3.4 GM/DL (3.2-4.5); BILIRUBIN,TOTAL 0.3 MG/DL (0.1-1.0); CALCIUM 9.3 MG/DL (8.5-10.1); CREATININE SERUM 1.24 MG/DL (0.60-1.30); POTASSIUM 4.4 MMOL/L (3.6-5.0); TOTAL PROTEIN 7.3 GM/DL (6.4-8.2)
== END 2023-04-16 | disposition home or self-care (01) ==
LOC: ONC 13:19
PROVIDERS: ATTEND Internal Medicine Hematology & Oncology
DX: D50.9 Iron deficiency anemia, unspecified (principal); M86.9 Osteomyelitis, unspecified; J44.9 Chronic obstructive pulmonary disease, unspecified
CPT/HCPCS: 36415; 80053; 82728; 83540; 83550; 85025